=== PATIENT | female | born 1980 | race Caucasian/White ===

== ENCOUNTER 2016-06-06 06:34 | Day surgery (SDC) | payer OTHER ==
[2016-06-05 09:43] VITALS: BMI 28.3
[~2016-06-06 06:34] MED LIST: LACTATED RINGERS 1,000 ML IV SCH
[2016-06-06] MEDS ORDERED: LIDOCAINE 1% 20 ML VIAL (10MG/ML) FOR IV START INTRADERMA ONE (07:39)
[2016-06-06 07:46] VITALS: RESP 16; TEMP 98.4
[2016-06-06] MEDS ORDERED: ONDANSETRON 4 MG/2 ML VIAL IVP STA (07:56)
[2016-06-06] MEDS ORDERED: fentaNYL (PF) 50 MCG/ML 2 ML AMP ONE (07:59)
[2016-06-06] MEDS ORDERED: IOHEXOL 180 MG/ML 1 ML ML ONE (07:59)
[2016-06-06] MEDS ORDERED: BUPIVACAINE (PF) 0.5% 30 ML VIAL ONE (07:59)
[2016-06-06] MEDS ORDERED: TRIAMCINOLONE ACETONIDE 40 MG/ML 1 ML VIAL ONE (07:59)
[2016-06-06] MEDS ORDERED: MIDAZOLAM 2 MG/2 ML VIAL ONE (07:59)
[2016-06-06 08:01] LABS: Glucose,Whole Blood 76 mg/dL (75-99)
[2016-06-06] MEDS ORDERED: IV FLUID CONTINUATION 1,000 ML IV ONE (08:27)
--- NOTE | 2016-06-06 08:58 | FL ---
EXAMINATION TYPE: FL guided pain mgmt statistic DATE OF EXAM: 06/06/2016 8:16 AM HISTORY: Flouroscopy time 5 seconds of fluoroscopy provided. IMPRESSION: 1. Fluoroscopy time.
[2016-06-06 09:00] VITALS: BP 100/59; PULSE 76
--- NOTE | 2016-06-06 09:24 | P.PCN ---
Date of Procedure: 06/06/16 Anesthesia: [facility] – [place] Surgeon: Dragan Cline Pathology: none sent Condition: stable Disposition: PACU Description of Procedure: PREOPERATIVE DIAGNOSIS: 1-Leftsacroiliitis. 2 Lumbar DDD POSTOPERATIVE DIAGNOSIS:. 1-Left sacroiliitis. 2 Lumbar DDD PROCEDURES: Left Sacroiliac joint steroid injection with fluoroscopy ANESTHESIA: Local with 1% lidocaine; Conscious sedation with Versed/fentanyl. EBL: Minimal. PROCEDURE INDICATIONS: This patient with a history of low back pain secondary to sacroiliitis and lumbar DDD unresponsive to conservative management. PROCEDURE DESCRIPTION: The patient was seen and identified in the preoperative area. Risks, benefits, complications, and alternatives were discussed with the patient (including but not limited to incomplete pain relief, bleeding, infection, nerve damage, and allergies to medications), the patient agreed to proceed with the procedure and signed the consent after all questions were answered. Patient was taken to the OR and time out was completed to verify proper patient , position, laterality of pain, and allergies. Pt was placed in the prone position and a pillow was placed under the abdomen to reduce lumbar lordosis. The lumbosacral area was prepped and draped in the usual sterile fashion. Vital signs were closely monitored during the procedure. The fluoroscopic camera was placed in contralateral oblique view and left sacroiliiac joint lower pole was identified. After local infiltration with 1% lidocaine 2 ml, Subsequently, a 22-gauge 3.5 inch spinal needle was introduced into the posteroinferior aspect of the left sacroiliac joint under direct fluoroscopic visualization. Subsequently, 3 ml of a solution of a total of 3 ml solution containing total 2 mL of 0.5% preservative-free bupivicaine mixed with 40 mg of Kenalog was injected after negative aspiration for CSF, blood, and air and negative for paresthesia. Needle was withdrawn intact. Skin was cleansed, and bandages were applied. COMPLICATIONS: None. COMMENTS: DISPOSITION / PLANS: The patient was placed in a supine position and transferred to the recovery area in a stable condition for observation and was discharged from the recovery room after meeting discharge criteria. Home discharge instructions given to the patient by the staff. The patient was reexamined prior to discharge. The patient will schedule a follow up procedure in 2-4 weeks, L SIJ injection + cervical TPI.
== END 2016-06-06 09:07 | disposition home or self-care (01) ==
LOC: ORPAIN 06:34
PROVIDERS: ATTEND Anesthesiology
DX: M46.1 Sacroiliitis, not elsewhere classified (principal); M51.36 Other intervertebral disc degeneration, lumbar region; G89.29 Other chronic pain; K21.9 Gastro-esophageal reflux disease without esophagitis; Z79.1 Long term (current) use of non-steroidal anti-inflammatories (NSAID); Z79.891 Long term (current) use of opiate analgesic; Z79.899 Other long term (current) drug therapy; Z88.5 Allergy status to narcotic agent
CPT/HCPCS: 81025; J2250; J3301; Q9965; J2405; J3010; G0260; 27096

== ENCOUNTER 2016-06-08 08:38 | Observation (INO) | payer OTHER ==
[2016-06-08 09:07] LABS: Glucose,Whole Blood 58 mg/dL (75-99)
[2016-06-08] MEDS ORDERED: SODIUM CHLORIDE 0.9% 1,000 ML IV STA ×2 (09:07)
[2016-06-08] MEDS ORDERED: DEXTROSE 50%-WATER 50 ML SYRINGE IVP STA ×3 (09:08→12:13)
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
--- NOTE | 2016-06-08 09:34 | XR ---
EXAMINATION TYPE: XR chest 2V DATE OF EXAM: 06/08/2016 9:24 AM COMPARISON: 04/26/2016 HISTORY: 35-year-old female with chest pain TECHNIQUE: PA and lateral views FINDINGS: The cardiomediastinal silhouette, aorta, and pulmonary vasculature are within normal limits. Lungs an d pleural spaces are clear. IMPRESSION: No acute cardiopulmonary process.
[2016-06-08 09:42] LABS: Glucose,Whole Blood 107 mg/dL (75-99)
[2016-06-08] MEDS ORDERED: MORPHINE SULFATE 4 MG/ML SYRINGE IV STA (09:54)
[2016-06-08 10:03] LABS: Glucose,Whole Blood 36 mg/dL (75-99)
[2016-06-08 10:07] LABS: Basophils % (A) 0 %; CH 34.3; CHCM 35.8; Eosinophils % (A) 0 %; HCT 37.9 % (34.0-46.0); HDW 2.85; HGB 13.2 gm/dL (11.4-16.0); Luc # (Auto) 0.06; Luc % (Auto) 1; Lymphocytes # (A) 0.7 k/uL (1.0-4.8); Lymphocytes % (A) 11 %; MCH 33.5 pg (25.0-35.0); MCHC 34.8 g/dL (31.0-37.0); Mean Platelet Volume 6.9; Monocytes # (A) 0.2 k/uL (0-1.0); Monocytes % (A) 3 %; Neutrophils # (A) 5.1 k/uL (1.3-7.7); Neutrophils % (A) 84 %; RBC 3.95 m/uL (3.80-5.40); RDW 11.7 % (11.5-15.5); WBC 6.1 k/uL (3.8-10.6); WBC (Perox) 6.61
[2016-06-08 10:08] LABS: ALT 27 U/L (9-52); AST 15 U/L (14-36); Alkaline Phosphatase 40 U/L (38-126); Amylase 91 U/L (30-110); Anion Gap 8 mmol/L; Blood Urea Nitrogen 12 mg/dL (7-17); Calcium 8.7 mg/dL (8.4-10.2); Carbon Dioxide 26 mmol/L (22-30); Chloride 111 mmol/L (98-107); Glucose 78 mg/dL (74-99); MCV 96.1 fL (80.0-100.0); Magnesium 1.7 mg/dL (1.6-2.3); Non-African American GFR(MDRD) >60 (>60 ml/min/1.73 sqM); Potassium 3.9 mmol/L (3.5-5.1); Sodium 145 mmol/L (137-145); Total Bilirubin 0.4 mg/dL (0.2-1.3)
[2016-06-08 10:30] LABS: Creatine Kinase 62 U/L (30-135)
[2016-06-08 10:32] LABS: INR 1.1 (<1.1); Partial Thromboplastin Time 22.1 sec (22.0-30.0); Prothrombin Time 10.8 sec (9.0-12.0)
[2016-06-08 10:34] LABS: Glucose,Whole Blood 140 mg/dL (75-99)
[2016-06-08 10:42] LABS: Creatine Kinase MB 0.5 ng/mL (0.0-2.4); Troponin I <0.012 ng/mL (0.000-0.034)
[2016-06-08 11:12] LABS: Glucose,Whole Blood 69 mg/dL (75-99)
[2016-06-08 11:32] LABS: Glucose,Whole Blood 62 mg/dL (75-99)
[2016-06-08 12:09] LABS: Glucose,Whole Blood 58 mg/dL (75-99)
[2016-06-08] MEDS ORDERED: ONDANSETRON 4 MG/2 ML VIAL IVP STA (12:14)
[2016-06-08] MEDS ORDERED: NALOXONE 0.4 MG/ML 1 ML VIAL IV PRN (13:04)
[2016-06-08] MEDS ORDERED: MORPHINE SULFATE 4 MG/ML SYRINGE IV PRN (13:04)
[2016-06-08 13:29] LABS: Glucose,Whole Blood 63 mg/dL (75-99)
[2016-06-08] MEDS: DEXTROSE 10% IN WATER 1,000 ML IV ONE ×2 (13:30→23:37)
[2016-06-08 14:51] LABS: Glucose,Whole Blood 61 mg/dL (75-99)
[2016-06-08 15:08] LABS: Glucose,Whole Blood 62 mg/dL (75-99)
[2016-06-08 15:24] LABS: Glucose,Whole Blood 68 mg/dL (75-99)
[2016-06-08 16:06] LABS: Glucose,Whole Blood 75 mg/dL (75-99)
[2016-06-08] MEDS: DEXTROSE 4 GM CHEWABLE PO SCH ×5 (16:07→23:23)
[2016-06-08 16:31] LABS: Glucose,Whole Blood 78 mg/dL (75-99)
[2016-06-08 17:01] LABS: Glucose,Whole Blood 74 mg/dL (75-99)
[2016-06-08 18:10] LABS: Glucose,Whole Blood 64 mg/dL (75-99)
[2016-06-08 18:27] LABS: Glucose,Whole Blood 77 mg/dL (75-99)
[2016-06-08 19:06] LABS: Glucose,Whole Blood 41 mg/dL (75-99)
[2016-06-08 19:21] LABS: Glucose,Whole Blood 75 mg/dL (75-99)
[2016-06-08 20:08] LABS: Glucose,Whole Blood 80 mg/dL (75-99)
[2016-06-08] MEDS: HYDROcodone/APAP 5-325MG 1 EACH TAB PO PRN (20:49)
[2016-06-08 21:18] LABS: Glucose,Whole Blood 73 mg/dL (75-99)
[2016-06-08 22:10] LABS: Glucose,Whole Blood 59 mg/dL (75-99)
[2016-06-08 22:36] LABS: Glucose,Whole Blood 66 mg/dL (75-99)
[2016-06-08] MEDS ORDERED: LEVALBUTEROL 0.63 MG INHALATION PRN (22:38)
[2016-06-08 23:12] LABS: Glucose,Whole Blood 77 mg/dL (75-99)
[2016-06-08] MEDS: ONDANSETRON 4 MG/2 ML VIAL IVP PRN (23:20)
[2016-06-08] MEDS: PREGABALIN 50 MG CAP PO SCH (23:21)
[2016-06-08] MEDS: ACETAMINOPHEN TAB 325 MG TAB PO PRN (23:21)
[2016-06-08] MEDS: FAMOTIDINE 20 MG TAB PO SCH (23:23)
[2016-06-08] MEDS: traZODone HCL 50 MG TAB PO SCH (23:37)
[2016-06-09] MEDS: DEXTROSE 4 GM CHEWABLE PO SCH ×23 (00:12→23:05)
[2016-06-09 00:13] LABS: Glucose,Whole Blood 57 mg/dL (75-99)
[2016-06-09 00:36] LABS: Glucose,Whole Blood 48 mg/dL (75-99)
[2016-06-09 00:36] LABS: Glucose,Whole Blood 48 mg/dL (75-99)
[2016-06-09 00:39] LABS: Glucose,Whole Blood 59 mg/dL (75-99)
[2016-06-09 01:03] LABS: Glucose,Whole Blood 75 mg/dL (75-99)
[2016-06-09 02:05] LABS: Glucose,Whole Blood 72 mg/dL (75-99)
[2016-06-09 03:10] LABS: Glucose,Whole Blood 80 mg/dL (75-99)
[2016-06-09 04:04] LABS: Glucose,Whole Blood 54 mg/dL (75-99)
[2016-06-09 04:29] LABS: Glucose,Whole Blood 90 mg/dL (75-99)
[2016-06-09 05:03] LABS: Glucose,Whole Blood 60 mg/dL (75-99)
[2016-06-09 05:25] LABS: Glucose,Whole Blood 85 mg/dL (75-99)
[2016-06-09 06:02] LABS: Glucose,Whole Blood 76 mg/dL (75-99)
[2016-06-09 07:00] LABS: Glucose,Whole Blood 81 mg/dL (75-99)
[2016-06-09] MEDS: LEVOTHYROXINE 100 MCG TAB PO SCH (07:00)
[2016-06-09 07:07] LABS: Basophils % (A) 1 %; CH 34.1; CHCM 35.1; Eosinophils # (A) 0.1 k/uL (0-0.7); Eosinophils % (A) 2 %; HCT 34.6 % (34.0-46.0); HDW 2.84; Luc # (Auto) 0.09; Luc % (Auto) 2; Lymphocytes # (A) 1.2 k/uL (1.0-4.8); Lymphocytes % (A) 28 %; MCHC 34.8 g/dL (31.0-37.0); MCV 97.7 fL (80.0-100.0); Mean Platelet Volume 6.7; Monocytes # (A) 0.2 k/uL (0-1.0); Monocytes % (A) 4 %; Neutrophils # (A) 2.7 k/uL (1.3-7.7); Neutrophils % (A) 63 %; RBC 3.55 m/uL (3.80-5.40); RDW 11.8 % (11.5-15.5); WBC 4.3 k/uL (3.8-10.6); WBC (Perox) 4.66
[2016-06-09 07:29] LABS: ALT 23 U/L (9-52); AST 12 U/L (14-36); Alkaline Phosphatase 37 U/L (38-126); Anion Gap 7 mmol/L; Blood Urea Nitrogen 9 mg/dL (7-17); Calcium 8.6 mg/dL (8.4-10.2); Carbon Dioxide 25 mmol/L (22-30); Chloride 110 mmol/L (98-107); Glucose 103 mg/dL (74-99); Non-African American GFR(MDRD) >60 (>60 ml/min/1.73 sqM); Potassium 4.4 mmol/L (3.5-5.1); Sodium 142 mmol/L (137-145); Total Bilirubin 0.3 mg/dL (0.2-1.3); Total Protein 5.2 g/dL (6.3-8.2)
[2016-06-09] MEDS: HYDROcodone/APAP 5-325MG 1 EACH TAB PO PRN ×2 (07:58→13:01)
[2016-06-09 07:59] LABS: Glucose,Whole Blood 142 mg/dL (75-99)
[2016-06-09] MEDS: PREGABALIN 50 MG CAP PO SCH ×3 (07:59→23:04)
[2016-06-09] MEDS: DEXTROSE 10% IN WATER 1,000 ML in EMPTY BAG 1 BAG IV SCH ×4 (08:57→23:06)
[2016-06-09] MEDS: DESVENLAFAXINE SUCCINATE 50 MG TAB.ER.24H PO SCH (08:58)
[2016-06-09] MEDS: MONTELUKAST 10 MG TAB PO SCH (08:58)
[2016-06-09] MEDS: ARIPiprazole 5 MG TAB PO SCH (08:58)
[2016-06-09] MEDS: FAMOTIDINE 20 MG TAB PO SCH ×2 (08:58→21:25)
[2016-06-09 09:00] LABS: Glucose,Whole Blood 105 mg/dL (75-99)
[2016-06-09] MEDS: ACETAMINOPHEN TAB 325 MG TAB PO PRN (09:59)
[2016-06-09 10:16] LABS: Glucose,Whole Blood 93 mg/dL (75-99)
[2016-06-09 10:16] LABS: Glucose,Whole Blood 57 mg/dL (75-99)
[2016-06-09] MEDS: BECLOMETHASONE DIP 80 MCG/PUFF INHALER INHALATION SCH ×2 (10:45→19:12)
[2016-06-09] MEDS: ONDANSETRON 4 MG/2 ML VIAL IVP PRN (10:50)
[2016-06-09 11:23] LABS: Glucose,Whole Blood 51 mg/dL (75-99)
[2016-06-09 11:23] LABS: Glucose,Whole Blood 49 mg/dL (75-99)
[2016-06-09 11:23] LABS: Glucose,Whole Blood 73 mg/dL (75-99)
[2016-06-09 12:11] LABS: Glucose,Whole Blood 61 mg/dL (75-99)
[2016-06-09 12:11] LABS: Glucose,Whole Blood 72 mg/dL (75-99)
[2016-06-09 12:57] LABS: Glucose,Whole Blood 82 mg/dL (75-99)
[2016-06-09 14:00] LABS: Glucose,Whole Blood 71 mg/dL (75-99)
[2016-06-09 14:58] LABS: Glucose,Whole Blood 104 mg/dL (75-99)
--- NOTE | 2016-06-09 14:58 | HP ---
DATE OF ADMISSION: 06/08/2016 PRESENTING COMPLAINT: Hypoglycemia. HISTORY OF PRESENTING COMPLAINT: This is a pleasant 35-year-old patient well known to me from prior admissions. Patient's chronic stable medical conditions include hypothyroid, depression, GERD. Patient has also had bulimia. The patient now presents with hypoglycemia. The patient does not eat much, ( ) since admission. I put her on IV D10, sugar tablets. She keeps dropping her sugars, admitted for the same. REVIEW OF SYSTEMS: CONSTITUTIONAL: Weak and tired. HEENT: None. RESPIRATORY: None. CARDIOVASCULAR: None. GASTROINTESTINAL: Heartburn. GENITOURINARY: None. MUSCULOSKELETAL: Chronic low back pain. DERMATOLOGICAL: None. HEMATOLOGIC: None. PSYCHIATRY: Depression. NEUROLOGICAL: None. Past history of asthma, hypothyroid, depression, herniated disc in lower back, peptic ulcer disease, bulimia. PAST SURGICAL HISTORY: Bariatric surgery, orthopedic surgery, multiple pain procedures, lap cholecystectomy, tonsillectomy. SOCIAL HISTORY: Patient lost her son to brain cancer. Lost her mother and father liver cancer. Has 2 daughters, not employed. No smoking. No alcohol. FAMILY HISTORY: As above. Allergies to ALBUTEROL, GRASS and POLLEN. HOME MEDICATIONS: 1. Desyrel 50 to 100 mg p.o. q.h.s. 2. Lyrica 50 mg p.o. q.8. 3. Zofran 4 mg q.8 p.r.n. 4. Naproxen 500 mg p.o. q.12 p.r.n. 5. Singulair 10 mg p.o. daily. 6. Depo-Provera 150 mg q.90. 7. Synthroid 100 mcg p.o. in the morning. 8. Xopenex 0.63 inhalation q.i.d. p.r.n. 9. Xopenex 2 puffs q.6 p.r.n. 10. [place] 7.5 one tablet q.6 p.r.n. 11. Pepcid 20 mg p.o. b.i.d. 12. Pristiq 100 mg p.o. daily. 13. Qvar 80 one puff b.i.d. 14. Aspirin 325 p.o. daily p.r.n. 15. Abilify 5 mg p.o. daily. On examination, temperature 97.2, pulse 93, respirations 16, blood pressure 91/43, pulse ox 99% on room air. GENERAL APPEARANCE: Average built, lying in bed, tired appearing. EYES: Pupils equal. Conjunctivae normal. HEENT: External appearance of nose and ears normal. Oral cavity normal. NECK: JVD not raised. Mass not palpable. RESPIRATORY: Effort normal. Lungs are clear. CARDIOVASCULAR: First and second sounds normal. No edema. ABDOMEN: Soft, nontender. Liver and spleen not palpable. LYMPHATIC: No lymph node palpable in the neck or axillae. PSYCHIATRY: Alert and oriented x3. Mood and affect slightly low appearing. NEUROLOGICAL: Pupils equal. Cranial nerves grossly intact. Power and sensation grossly intact. INVESTIGATIONS: White count 6.1, hemoglobin 13.2. Potassium 3.9. Patient's sugars had gone as low as ( ). ASSESSMENT: 1. Persistent hypoglycemia, symptomatic in a patient who is bulimic, has got probably limited fat and gallbladder reserves. Even though patient's body mass index is not bad, a lot of that is probably fluid, probably from patient taking steroids. 2. Moderate persistent asthma, controlled. 3. Chronic lumbar herniated disc. 4. Hypothyroidism, chronic. 5. Depression, not otherwise specified. 6. Gastroesophageal reflux disease. 7. Chronic bulimia. PLAN: Patient is put on D10, 100 mL and hour. Did not respond. Hence will increase to 200 mL an hour. Patient also put on glucose tablets round the clock. Patient had ordered a salad for lunch. I told her to take chicken strips or even have a burger, but she is rather resistant to that. Will try to also give her chocolates and milkshakes. Care was discussed in detail with the patient and nurse at the bedside.
[2016-06-09 16:01] LABS: Glucose,Whole Blood 80 mg/dL (75-99)
[2016-06-09 17:03] LABS: Glucose,Whole Blood 88 mg/dL (75-99)
[2016-06-09 18:02] LABS: Glucose,Whole Blood 102 mg/dL (75-99)
[2016-06-09 18:59] LABS: Glucose,Whole Blood 66 mg/dL (75-99)
[2016-06-09 19:22] LABS: Glucose,Whole Blood 126 mg/dL (75-99)
[2016-06-09 20:05] LABS: Glucose,Whole Blood 144 mg/dL (75-99)
[2016-06-09] MEDS ORDERED: traZODone HCL 50 MG TAB PO SCH (21:00)
[2016-06-09 21:25] LABS: Glucose,Whole Blood 109 mg/dL (75-99)
[2016-06-09] MEDS: traZODone HCL 50 MG TAB PO SCH (21:26)
[2016-06-09 23:06] LABS: Glucose,Whole Blood 112 mg/dL (75-99)
[2016-06-10] MEDS: DEXTROSE 4 GM CHEWABLE PO SCH ×8 (02:46→22:46)
[2016-06-10] MEDS: DEXTROSE 10% IN WATER 1,000 ML in EMPTY BAG 1 BAG IV SCH ×4 (02:46→16:53)
[2016-06-10 02:48] LABS: Glucose,Whole Blood 125 mg/dL (75-99)
[2016-06-10] MEDS: LEVOTHYROXINE 100 MCG TAB PO SCH (06:00)
[2016-06-10] MEDS: HYDROcodone/APAP 5-325MG 1 EACH TAB PO PRN ×3 (06:00→20:11)
[2016-06-10 06:11] LABS: Glucose,Whole Blood 96 mg/dL (75-99)
[2016-06-10 06:42] LABS: Glucose,Whole Blood 146 mg/dL (75-99)
[2016-06-10] MEDS: FAMOTIDINE 20 MG TAB PO SCH ×2 (07:48→20:20)
[2016-06-10] MEDS: ARIPiprazole 5 MG TAB PO SCH (07:48)
[2016-06-10] MEDS: DESVENLAFAXINE SUCCINATE 50 MG TAB.ER.24H PO SCH (07:48)
[2016-06-10] MEDS: PREGABALIN 50 MG CAP PO SCH ×2 (07:48→16:59)
[2016-06-10] MEDS: MONTELUKAST 10 MG TAB PO SCH (07:48)
[2016-06-10 08:01] LABS: Glucose,Whole Blood 116 mg/dL (75-99)
[2016-06-10] MEDS: BECLOMETHASONE DIP 80 MCG/PUFF INHALER INHALATION SCH ×2 (08:16→20:08)
[2016-06-10 09:13] LABS: Glucose,Whole Blood 106 mg/dL (75-99)
[2016-06-10 10:06] LABS: Glucose,Whole Blood 110 mg/dL (75-99)
[2016-06-10 11:06] LABS: Glucose,Whole Blood 99 mg/dL (75-99)
[2016-06-10 13:18] LABS: Glucose,Whole Blood 129 mg/dL (75-99)
[2016-06-10 15:11] LABS: Glucose,Whole Blood 106 mg/dL (75-99)
[2016-06-10 17:07] LABS: Glucose,Whole Blood 113 mg/dL (75-99)
[2016-06-10 20:19] LABS: Glucose,Whole Blood 106 mg/dL (75-99)
[2016-06-10] MEDS: traZODone HCL 50 MG TAB PO SCH (20:20)
--- NOTE | 2016-06-10 21:44 | PN ---
DATE OF SERVICE: 06/10/2016 PRESENTING COMPLAINT: Hypoglycemia. INTERVAL HISTORY: This is a patient with bulimia, presented with persistent hypoglycemia, still remains on a D10 drip. Sugars are starting to come up, but stool did drop to 90 this morning. Per nursing, patient is actually eating. Review of systems done for constitutional, cardiovascular, GI, pulmonary; relevant findings as above. Current medications are reviewed and include drip of D10. On examination, temperature 98.5, pulse 110. Respiratory rate 16, blood pressure 130/69, pulse ox 97% on room air. GENERAL APPEARANCE: Sitting up, comfortable. EYES: Pupils equal. Not raised. RESPIRATORY: Effort normal. Lungs are clear. CARDIOVASCULAR: First and seconds normal. No edema. ABDOMEN: Soft, nontender. Liver and spleen not palpable. PSYCHIATRY: Alert and oriented x3. Mood and affect normal. INVESTIGATIONS: Accu-Cheks are noted, 99, 129. ASSESSMENT: 1. Persistent hypoglycemia in a patient who is bulimic. 2. Moderate persistent asthma, controlled. 3. Chronic lumbar herniated disc. 4. Hypothyroidism, chronic. 5. Depression not otherwise specified. 6. Gastroesophageal reflux disease. 7. Chronic bulimia. PLAN: We will stop patient's sugar tablets per patient's request. Keep the patient on high calorie diet. Patient encouraged to eat including milk shakes. Keep the patient on D10. Follow.
[2016-06-10 22:22] LABS: Glucose,Whole Blood 117 mg/dL (75-99)
[2016-06-11] MEDS: PREGABALIN 50 MG CAP PO SCH ×2 (00:02→07:50)
[2016-06-11 00:13] LABS: Glucose,Whole Blood 115 mg/dL (75-99)
[2016-06-11 02:32] VITALS: RESP 16
[2016-06-11 02:44] LABS: Glucose,Whole Blood 91 mg/dL (75-99)
[2016-06-11 04:07] LABS: Glucose,Whole Blood 103 mg/dL (75-99)
[2016-06-11] MEDS: LEVOTHYROXINE 100 MCG TAB PO SCH (06:00)
[2016-06-11 06:10] LABS: Glucose,Whole Blood 89 mg/dL (75-99)
[2016-06-11 07:25] VITALS: BP 109/63; PULSE 98; TEMP 98
[2016-06-11] MEDS: DESVENLAFAXINE SUCCINATE 50 MG TAB.ER.24H PO SCH (07:50)
[2016-06-11] MEDS: MONTELUKAST 10 MG TAB PO SCH (07:50)
[2016-06-11] MEDS: ARIPiprazole 5 MG TAB PO SCH (07:50)
[2016-06-11] MEDS: HYDROcodone/APAP 5-325MG 1 EACH TAB PO PRN ×2 (07:50→14:32)
[2016-06-11] MEDS: BECLOMETHASONE DIP 80 MCG/PUFF INHALER INHALATION SCH (08:03)
[2016-06-11 08:09] LABS: Glucose,Whole Blood 105 mg/dL (75-99)
[2016-06-11 10:15] LABS: Glucose,Whole Blood 120 mg/dL (75-99)
[2016-06-11] MEDS: FAMOTIDINE 20 MG TAB PO SCH (11:24)
[2016-06-11 11:50] LABS: Glucose,Whole Blood 101 mg/dL (75-99)
[2016-06-11 13:44] LABS: Glucose,Whole Blood 110 mg/dL (75-99)
[2016-06-11 15:18] LABS: Glucose,Whole Blood 101 mg/dL (75-99)
--- NOTE | 2016-06-12 08:58 | DS ---
DATE OF ADMISSION: 06/08/2016 DATE OF DISCHARGE: 06/11/2016 FINAL DIAGNOSES: 1. Persistent hypoglycemia in a patient who is bulimic. 2. Moderate persistent asthma, controlled. 3. Chronic lumbar herniated disc. 4. Hypothyroidism, chronic. 5. Depression, not otherwise specified. 6. Gastroesophageal reflux disease, chronic. 7. Chronic bulimia. HOSPITAL COURSE: This is a patient with bulimia, just got off steroids, went into hypoglycemic. Patient had to get sugar tablets and Dextro strip. Sugar was doing well by the type of discharge. It was reinforced to the patient that she needs to build up her muscle mass and ( ) stores by eating. On exam, lungs are clear. CARDIOVASCULAR: First and second sounds normal. DISCHARGE MEDICATIONS: 1. Xopenex q.i.d. p.r.n. 2. Synthroid 100 mcg p.o. daily. 3. Singulair 10 mg p.o. daily. 4. Abilify 5 mg daily. 5. Pristiq 100 p.o. daily. 6. Depo-Provera 150 mg IM every 90 days. 7. Desyrel 50 to 100 mg p.o. q.h.s. 8. Pepcid 20 mg p.o. b.i.d. 9. [place] 7.5 one tablet q.6 p.r.n. 10. Lyrica 50 mg p.o. q.8. 11. Qvar 80 mcg one puff b.i.d. 12. Zofran 4 mg p.o. q.8 p.r.n. 13. Aspirin 325 p.o. daily. Follow up with Dr. Gonzalez in 3 days On examination, lungs are clear. CARDIOVASCULAR: First and second seconds normal. PSYCH: Alert and oriented x3. Mood and affect normal.
== END 2016-06-11 17:40 | disposition home or self-care (01) ==
LOC: EC 08:38 → OBSVTOIN 13:09 → 3OBS 13:09 → INTOOBSV 13:09 → 6PED 13:54 → 3SUR 06-09 22:08
PROVIDERS: ADMIT Hospitalist; ATTEND Hospitalist
DX: E16.2 Hypoglycemia, unspecified (principal); F50.2 Bulimia nervosa; J45.40 Moderate persistent asthma, uncomplicated; M51.26 Other intervertebral disc displacement, lumbar region; E03.9 Hypothyroidism, unspecified; F32.9 Major depressive disorder, single episode, unspecified; K21.9 Gastro-esophageal reflux disease without esophagitis; G89.29 Other chronic pain; I25.10 Atherosclerotic heart disease of native coronary artery without angina pectoris; G40.909 Epilepsy, unspecified, not intractable, without status epilepticus; F41.9 Anxiety disorder, unspecified; Z98.84 Bariatric surgery status; Z90.49 Acquired absence of other specified parts of digestive tract; Z87.11 Personal history of peptic ulcer disease; Z87.440 Personal history of urinary (tract) infections; Z86.14 Personal history of Methicillin resistant Staphylococcus aureus infection; Z79.82 Long term (current) use of aspirin; Z79.899 Other long term (current) drug therapy
CPT/HCPCS: 96361 ×5; 96374; 96375 ×3; 99285 ×2; 36415; 94640 ×4; 94760; 80053 ×2; 82150; 82550; 82553; 83690; 83735; 84484; 85025 ×2; 85610; 85730; 71020; 96365; 96376 ×3; G0378 ×5; J2270; J2405 ×2; 93005

== ENCOUNTER 2016-06-13 17:35 | Inpatient (IN) | payer OTHER ==
[2016-06-13] MEDS ORDERED: HYDROmorphone 1 MG/ML 1 ML SYRINGE IVP STA (20:32)
[2016-06-13] MEDS ORDERED: SODIUM CHLORIDE 0.9% 1,000 ML IV STA ×2 (20:32)
[2016-06-13] MEDS ORDERED: PANTOPRAZOLE 40 MG/10 ML VIAL IVP STA (20:32)
[2016-06-13 20:40] LABS: Basophils # (A) 0.1 k/uL (0-0.2); Basophils % (A) 1 %; CH 34.3; CHCM 36.3; Eosinophils # (A) 0.1 k/uL (0-0.7); Eosinophils % (A) 1 %; HCT 44.4 % (34.0-46.0); HDW 2.82; HGB 14.9 gm/dL (11.4-16.0); Luc # (Auto) 0.06; Luc % (Auto) 1; Lymphocytes # (A) 1.5 k/uL (1.0-4.8); Lymphocytes % (A) 15 %; MCH 31.9 pg (25.0-35.0); MCHC 33.5 g/dL (31.0-37.0); MCV 95.2 fL (80.0-100.0); Mean Platelet Volume 7.4; Monocytes # (A) 0.6 k/uL (0-1.0); Monocytes % (A) 6 %; Neutrophils # (A) 7.7 k/uL (1.3-7.7); Neutrophils % (A) 78 %; RBC 4.67 m/uL (3.80-5.40); RDW 12.3 % (11.5-15.5); WBC 9.9 k/uL (3.8-10.6); WBC (Perox) 9.66
[2016-06-13] MEDS: ONDANSETRON 4 MG/2 ML VIAL IVP STA ×2 (20:46→23:01)
[2016-06-13 20:47] LABS: Appearance,Urine Clear (Clear); Bilirubin,Urine Negative (Negative); Glucose,Urine (UA) Negative (Negative); Ketones,Urine Negative (Negative); Leukocyte Esterase,Urine Negative (Negative); Mucus,Urine Occasional /hpf; Nitrite,Urine Negative (Negative); Particle Count 5839; Protein,Urine Trace (Negative); RBC,Urine 130 /hpf (0-5); Specific Gravity,Urine 1.025 (1.001-1.035); Squamous Epithelial Cell,Urine 4 /hpf (0-4); UA Billing (MACRO vs. MICRO) MICRO; WBC,Urine 3 /hpf (0-5)
[2016-06-13 20:54] LABS: ALT 57 U/L (9-52); AST 37 U/L (14-36); Alkaline Phosphatase 49 U/L (38-126); Amylase 106 U/L (30-110); Anion Gap 13 mmol/L; Blood Urea Nitrogen 26 mg/dL (7-17); Calcium 10.1 mg/dL (8.4-10.2); Carbon Dioxide 28 mmol/L (22-30); Chloride 103 mmol/L (98-107); Non-African American GFR(MDRD) 55 (>60 ml/min/1.73 sqM); Potassium 3.9 mmol/L (3.5-5.1); Sodium 144 mmol/L (137-145); Total Bilirubin 0.5 mg/dL (0.2-1.3); Total Protein 7.6 g/dL (6.3-8.2)
[2016-06-13 21:06] LABS: Glucose 37 mg/dL (74-99)
[2016-06-13] MEDS ORDERED: DEXTROSE 5%-0.45% NACL 1,000 ML IV ONE (21:29)
[2016-06-13] MEDS ORDERED: DEXTROSE 50%-WATER 50 ML SYRINGE IVP STA (21:29)
--- NOTE | 2016-06-13 21:29 | XR ---
EXAMINATION TYPE: XR abdomen 2V DATE OF EXAM: 06/13/2016 9:19 PM COMPARISON: 08/02/2009 HISTORY: Pain TECHNIQUE: Single supine KUB image of the abdomen is obtained FINDINGS: Gastric banding device is in place. Small bowel demonstrates no evidence for dilatation or air fluid levels. Gas and fecal material is seen in non-distended colon. No convincing evidence for pneumoperitoneum. No unusual calcifications. The lung bases are clear. The osseous structures are intact. IMPRESSION: 1. Overall nonobstructive bowel gas pattern.
[2016-06-13 22:00] LABS: Glucose,Whole Blood 143 mg/dL (75-99)
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
[2016-06-13] MEDS ORDERED: NALOXONE 0.4 MG/ML 1 ML VIAL IV PRN (22:40)
[2016-06-13] MEDS ORDERED: HYDROmorphone 1 MG/ML 1 ML SYRINGE IV PRN (22:40)
[2016-06-13] MEDS ORDERED: LEVALBUTEROL NEB 1.25 MG/3 ML AMP INHALATION PRN ×2 (22:45→23:19)
[2016-06-13] MEDS ORDERED: LEVALBUTEROL 0.63 MG INHALATION PRN (22:45)
[2016-06-13] MEDS ORDERED: NAPROXEN 250 MG TAB PO PRN (22:45)
[2016-06-13 22:52] LABS: Glucose,Whole Blood 66 mg/dL (75-99)
[2016-06-13] MEDS ORDERED: DEXTROSE 4 GM CHEWABLE PO SCH (23:00)
[2016-06-13] MEDS: DEXTROSE 10% IN WATER 1,000 ML IV ONE (23:12)
[2016-06-13] MEDS: DEXTROSE 4 GM CHEWABLE PO SCH (23:55)
[2016-06-14 00:08] LABS: Glucose,Whole Blood 70 mg/dL (75-99)
[2016-06-14] MEDS: DEXTROSE 4 GM CHEWABLE PO SCH ×24 (00:08→23:57)
[2016-06-14] MEDS: PREGABALIN 50 MG CAP PO SCH ×4 (00:08→23:03)
[2016-06-14] MEDS ORDERED: DEXTROSE 4 GM CHEWABLE PO ONE (00:50)
[2016-06-14 01:23] LABS: Glucose,Whole Blood 115 mg/dL (75-99)
[2016-06-14 02:37] LABS: Glucose,Whole Blood 96 mg/dL (75-99)
[2016-06-14 04:04] LABS: Glucose,Whole Blood 113 mg/dL (75-99)
[2016-06-14 06:35] LABS: Glucose,Whole Blood 105 mg/dL (75-99)
[2016-06-14 07:39] LABS: Glucose,Whole Blood 102 mg/dL (75-99)
[2016-06-14] MEDS: BECLOMETHASONE DIP 80 MCG/PUFF INHALER INHALATION SCH ×2 (07:41→19:15)
[2016-06-14] MEDS: ONDANSETRON 4 MG/2 ML VIAL IVP STA ×2 (07:48→13:28)
[2016-06-14 07:58] LABS: Anion Gap 10 mmol/L; Blood Urea Nitrogen 18 mg/dL (7-17); Carbon Dioxide 25 mmol/L (22-30); Chloride 106 mmol/L (98-107); Glucose 95 mg/dL (74-99); Non-African American GFR(MDRD) 55 (>60 ml/min/1.73 sqM); Sodium 141 mmol/L (137-145)
[2016-06-14] MEDS: LEVOTHYROXINE 100 MCG TAB PO SCH (08:50)
[2016-06-14] MEDS: DESVENLAFAXINE SUCCINATE 50 MG TAB.ER.24H PO SCH (08:51)
[2016-06-14] MEDS: MONTELUKAST 10 MG TAB PO SCH (08:51)
[2016-06-14] MEDS: ARIPiprazole 5 MG TAB PO SCH (08:51)
[2016-06-14] MEDS ORDERED: PANTOPRAZOLE 40 MG/10 ML VIAL IV SCH (09:00)
[2016-06-14 09:41] LABS: Basophils # (A) 0.1 k/uL (0-0.2); Basophils % (A) 1 %; CH 34.3; CHCM 35.1; Eosinophils # (A) 0.1 k/uL (0-0.7); Eosinophils % (A) 1 %; HCT 39.3 % (34.0-46.0); HDW 2.84; HGB 13.1 gm/dL (11.4-16.0); Luc # (Auto) 0.08; Luc % (Auto) 2; Lymphocytes # (A) 1.2 k/uL (1.0-4.8); Lymphocytes % (A) 24 %; MCH 32.7 pg (25.0-35.0); MCHC 33.3 g/dL (31.0-37.0); MCV 98.2 fL (80.0-100.0); Mean Platelet Volume 7.5; Monocytes # (A) 0.3 k/uL (0-1.0); Monocytes % (A) 6 %; Neutrophils # (A) 3.4 k/uL (1.3-7.7); Neutrophils % (A) 66 %; RDW 12.5 % (11.5-15.5); WBC 5.2 k/uL (3.8-10.6); WBC (Perox) 5.35
[2016-06-14 10:07] LABS: Glucose,Whole Blood 109 mg/dL (75-99)
[2016-06-14] MEDS ORDERED: ASPIRIN 325 MG TAB PO PRN (10:25)
[2016-06-14 10:45] VITALS: BMI 28.9
[2016-06-14 11:56] LABS: Glucose,Whole Blood 100 mg/dL (75-99)
[2016-06-14] MEDS: HYDROcodone/APAP 7.5-325MG 1 EACH TAB PO PRN ×2 (12:04→18:00)
[2016-06-14] MEDS: DEXTROSE 10% IN WATER 1,000 ML IV ONE (12:06)
--- NOTE | 2016-06-14 12:08 | HP ---
DATE OF ADMISSION: 06/13/2016 PRESENTING COMPLAINT: Nausea, vomiting, diarrhea, low sugars. HISTORY OF PRESENTING COMPLAINT: This is a 35-year-old patient who was just discharged from my service on 06/11/2016. The patient has rather extensive medical history and chronic stable medical conditions include hypothyroid, depression, GERD, also bulimia. Patient was discharged following hypoglycemia. She did well the night she went home and then she started on with nausea, vomiting, diarrhea, some abdominal discomfort, became dehydrated, sugars dropped again. She was hypoglycemic down to the 60s, readmitted. REVIEW OF SYSTEMS: CONSTITUTIONAL: Weak and tired. HEENT: None. RESPIRATORY: None. CARDIOVASCULAR: None. GASTROINTESTINAL: As above. GENITOURINARY: None. MUSCULOSKELETAL: Chronic low back pain. DERMATOLOGICAL: None. HEMATOLOGICAL: None. LYMPHATIC: None. PSYCHIATRY: Depression. NEUROLOGICAL: None. Past history of asthma, hypothyroid, depression, herniated disc in lower back, peptic ulcer disease, bulimia, hypothyroid. PAST SURGICAL HISTORY: Bariatric surgery, orthopedic surgery, multiple pain procedures, lap alcon, tonsillectomy. SOCIAL HISTORY: Patient lost her son to brain cancer. Lost her mother and father to liver cancer. Has 2 daughters, not employed. No smoking or alcohol. FAMILY HISTORY: As above. Allergies to ALBUTEROL, GRASS and POLLEN. Home medications per my discharge summary on 06/11/2016. 1. Xopenex q.i.d. p.r.n. 2. Synthroid 100 mcg. 3. Singulair 10 mg p.o. daily. 4. Abilify 5 mg p.o. daily. 5. Pristiq 100 mg p.o. daily. 6. Depo-Provera 150 mg IM every 90 days. 7. Desyrel 1500 mg p.o. q.h.s. 8. Pepcid 20 mg b.i.d. 9. [place] 7.5 tablet q.6 p.r.n. 10. Lyrica 50 mg p.o. q.8. 11. QVAR 18 mcg 1 puff b.i.d. 12. Zofran 4 mg p.o. q.8 p.r.n. 13. Aspirin 325 mg p.o. daily. On examination, vital signs on presentation: temperature 99.4, pulse 101, respirations 18, blood pressure 132/81, pulse ox 100% on room air. GENERAL APPEARANCE: Average build, lying in bed, tired-appearing. EYES: Pupils equal. Conjunctivae normal. NECK: JVD not raised. Mass not palpable. Respiratory effort normal. Lungs are clear. CARDIOVASCULAR: First and second sounds normal. No edema. ABDOMEN: Soft, minimal tenderness. Liver and spleen not palpable. LYMPHATIC: No lymph node palpable in neck or axillae. PSYCHIATRY: Alert and oriented x3. Mood and affect slightly anxious-appearing. NEUROLOGICAL: Pupils equal. Cranial nerves grossly intact. Power and sensation grossly intact. HEENT: External appearance of nose and ears normal. Oral cavity dry mucous membrane. INVESTIGATIONS: BUN 18, creatinine 1.12. ASSESSMENT: 1. Acute gastroenteritis likely viral, probably self-limiting, last diarrhea was last night. Clostridium difficile actually should be unlikely. 2. Hypoglycemia from decreased oral intake. 3. Moderate persistent asthma, controlled. 4. Chronic lumbar herniated disc. 5. Hypothyroidism, chronic. 6. Depression, not otherwise specified. 7. Gastroesophageal reflux disease, chronic. 8. Chronic bulimia. 9. Dehydration, currently with elevated BUN and creatinine, mild. PLAN: Patient will be hydrate, put on a liquid diet. Will also put her on D10 drip. Care was discussed with the patient and questions were answered.
[2016-06-14] MEDS: ENOXAPARIN 40 MG/0.4 ML SYRINGE SQ SCH (13:29)
[2016-06-14 14:38] LABS: Glucose,Whole Blood 105 mg/dL (75-99)
[2016-06-14 16:16] LABS: Glucose,Whole Blood 111 mg/dL (75-99)
[2016-06-14 18:11] LABS: Glucose,Whole Blood 114 mg/dL (75-99)
[2016-06-14] MEDS: DEXTROSE 10% IN WATER 1,000 ML IV SCH ×2 (19:31→19:34)
[2016-06-14] MEDS: traZODone HCL 50 MG TAB PO SCH (20:12)
[2016-06-14] MEDS: FAMOTIDINE 20 MG TAB PO SCH (20:12)
[2016-06-14 20:29] LABS: Glucose,Whole Blood 59 mg/dL (75-99)
[2016-06-14 20:33] LABS: Glucose,Whole Blood 63 mg/dL (75-99)
[2016-06-14 20:54] LABS: Glucose,Whole Blood 71 mg/dL (75-99)
[2016-06-14 22:05] LABS: Glucose,Whole Blood 90 mg/dL (75-99)
[2016-06-14 23:58] LABS: Glucose,Whole Blood 106 mg/dL (75-99)
[2016-06-15] MEDS: DEXTROSE 4 GM CHEWABLE PO SCH ×15 (01:07→19:29)
[2016-06-15 02:03] LABS: Glucose,Whole Blood 125 mg/dL (75-99)
[2016-06-15 03:10] LABS: Glucose,Whole Blood 93 mg/dL (75-99)
[2016-06-15 04:12] LABS: Glucose,Whole Blood 94 mg/dL (75-99)
[2016-06-15] MEDS: DEXTROSE 10% IN WATER 1,000 ML IV SCH ×2 (04:56→13:50)
[2016-06-15 05:59] LABS: Glucose,Whole Blood 92 mg/dL (75-99)
[2016-06-15 08:05] LABS: Glucose,Whole Blood 110 mg/dL (75-99)
[2016-06-15] MEDS: FAMOTIDINE 20 MG TAB PO SCH (08:33)
[2016-06-15] MEDS: PREGABALIN 50 MG CAP PO SCH ×2 (08:33→17:15)
[2016-06-15] MEDS: LEVOTHYROXINE 100 MCG TAB PO SCH (08:33)
[2016-06-15] MEDS: MONTELUKAST 10 MG TAB PO SCH (08:33)
[2016-06-15] MEDS: ARIPiprazole 5 MG TAB PO SCH (08:33)
[2016-06-15] MEDS: DESVENLAFAXINE SUCCINATE 50 MG TAB.ER.24H PO SCH (08:33)
[2016-06-15] MEDS: ENOXAPARIN 40 MG/0.4 ML SYRINGE SQ SCH (08:34)
[2016-06-15] MEDS: HYDROcodone/APAP 7.5-325MG 1 EACH TAB PO PRN ×2 (08:34→13:50)
[2016-06-15] MEDS: BECLOMETHASONE DIP 80 MCG/PUFF INHALER INHALATION SCH ×2 (09:54→19:22)
[2016-06-15 10:28] LABS: Glucose,Whole Blood 101 mg/dL (75-99)
[2016-06-15] MEDS: ONDANSETRON 4 MG TAB PO PRN (11:47)
[2016-06-15 12:12] LABS: Glucose,Whole Blood 118 mg/dL (75-99)
[2016-06-15 14:48] LABS: Glucose,Whole Blood 102 mg/dL (75-99)
--- NOTE | 2016-06-15 15:46 | PN ---
DATE OF SERVICE: 06/15/2016 PRESENTING COMPLAINT: Diarrhea. INTERVAL HISTORY: This patient presented with hypoglycemia, also having some diarrhea and abdominal discomfort. C. difficile has been negative, not much of an appetite. Also on dextrose drip. Review of systems done for constitutional, cardiovascular, GI, pulmonary; relevant findings as above. Current medications are reviewed and include glucose chew tablets. On examination, temperature 97, pulse 87, respiration 16, blood pressure 105/60, pulse ox 100%. GENERAL APPEARANCE: Lying in bed, tired appearing. EYES: Pupils equal. Conjunctivae normal. NECK: JVD not raised. Mass not palpable. RESPIRATORY: Effort normal. Lungs are clear. CARDIOVASCULAR: First and second sounds normal. No edema. ABDOMEN: Minimal tenderness, soft. Liver and spleen not palpable. PSYCHIATRY: Alert and oriented x3. Mood and affect normal. INVESTIGATIONS: Accu-Cheks are noted. ASSESSMENT: 1. Acute gastroenteritis, likely vital, somewhat slow to respond. Clostridium difficile has been ruled out. 2. Hypoglycemia from decreased oral intake. 3. Moderate persistent asthma, controlled. 4. Chronic lumbar herniated disc. 5. Hypothyroidism, chronic. 6. Depression, not otherwise specified. 7. Gastroesophageal reflux disease. 8. Chronic bulimia. 9. Dehydration especially with elevated BUN and creatinine. PLAN: Will start the patient on Lomotil. Send off stool for ova and parasite. Keep the patient on D10 drip until numbers come up more.
[2016-06-15 16:02] LABS: Glucose,Whole Blood 86 mg/dL (75-99)
[2016-06-15] MEDS ORDERED: DEXTROSE 4 GM CHEWABLE PO PRN (16:24)
[2016-06-15] MEDS: DIPHENOX-ATROP 2.5-0.025 MG 1 EACH TAB PO SCH ×2 (17:15→19:28)
[2016-06-15 17:50] LABS: Glucose,Whole Blood 105 mg/dL (75-99)
[2016-06-15 20:15] LABS: Glucose,Whole Blood 77 mg/dL (75-99)
[2016-06-15 23:21] LABS: Glucose,Whole Blood 91 mg/dL (75-99)
[2016-06-16] MEDS: traZODone HCL 50 MG TAB PO SCH ×2 (00:35→20:24)
[2016-06-16] MEDS: DEXTROSE 10% IN WATER 1,000 ML IV SCH (00:35)
[2016-06-16] MEDS: FAMOTIDINE 20 MG TAB PO SCH ×3 (00:35→20:24)
[2016-06-16] MEDS: PREGABALIN 50 MG CAP PO SCH ×3 (00:35→17:06)
[2016-06-16] MEDS: DIPHENOX-ATROP 2.5-0.025 MG 1 EACH TAB PO SCH ×5 (00:36→20:24)
[2016-06-16 00:37] LABS: Glucose,Whole Blood 108 mg/dL (75-99)
[2016-06-16 01:59] LABS: Glucose,Whole Blood 102 mg/dL (75-99)
[2016-06-16 05:18] LABS: Glucose,Whole Blood 109 mg/dL (75-99)
[2016-06-16 06:35] LABS: Glucose,Whole Blood 108 mg/dL (75-99)
[2016-06-16] MEDS: HYDROcodone/APAP 7.5-325MG 1 EACH TAB PO PRN (07:05)
[2016-06-16 07:12] VITALS: RESP 16
[2016-06-16 07:30] LABS: Basophils % (A) 1 %; CH 34.1; CHCM 35.4; Eosinophils # (A) 0.1 k/uL (0-0.7); Eosinophils % (A) 1 %; HCT 36.6 % (34.0-46.0); HDW 2.87; HGB 12.3 gm/dL (11.4-16.0); Luc # (Auto) 0.07; Luc % (Auto) 1; Lymphocytes % (A) 20 %; MCH 32.5 pg (25.0-35.0); MCHC 33.6 g/dL (31.0-37.0); MCV 96.8 fL (80.0-100.0); Mean Platelet Volume 7.1; Monocytes # (A) 0.3 k/uL (0-1.0); Monocytes % (A) 6 %; Neutrophils # (A) 3.5 k/uL (1.3-7.7); Neutrophils % (A) 72 %; RBC 3.78 m/uL (3.80-5.40); RDW 12.3 % (11.5-15.5); WBC 4.9 k/uL (3.8-10.6); WBC (Perox) 4.91
[2016-06-16 08:03] LABS: Anion Gap 9 mmol/L; Blood Urea Nitrogen 11 mg/dL (7-17); Calcium 8.8 mg/dL (8.4-10.2); Carbon Dioxide 23 mmol/L (22-30); Chloride 108 mmol/L (98-107); Glucose 97 mg/dL (74-99); Magnesium 2.1 mg/dL (1.6-2.3); Non-African American GFR(MDRD) >60 (>60 ml/min/1.73 sqM); Potassium 4.2 mmol/L (3.5-5.1); Sodium 140 mmol/L (137-145)
[2016-06-16 08:09] LABS: Glucose,Whole Blood 102 mg/dL (75-99)
[2016-06-16] MEDS: ARIPiprazole 5 MG TAB PO SCH (08:27)
[2016-06-16] MEDS: DESVENLAFAXINE SUCCINATE 50 MG TAB.ER.24H PO SCH (08:28)
[2016-06-16] MEDS: ENOXAPARIN 40 MG/0.4 ML SYRINGE SQ SCH (08:28)
[2016-06-16] MEDS: MONTELUKAST 10 MG TAB PO SCH (08:29)
[2016-06-16] MEDS: LEVOTHYROXINE 100 MCG TAB PO SCH (08:29)
[2016-06-16] MEDS: BECLOMETHASONE DIP 80 MCG/PUFF INHALER INHALATION SCH ×3 (09:04→20:45)
[2016-06-16 10:21] LABS: Glucose,Whole Blood 100 mg/dL (75-99)
[2016-06-16 11:59] LABS: Glucose,Whole Blood 94 mg/dL (75-99)
[2016-06-16 14:19] LABS: Glucose,Whole Blood 93 mg/dL (75-99)
[2016-06-16 16:10] LABS: Glucose,Whole Blood 89 mg/dL (75-99)
[2016-06-16 17:56] LABS: Glucose,Whole Blood 89 mg/dL (75-99)
[2016-06-16] MEDS: ONDANSETRON 4 MG TAB PO PRN (18:38)
[2016-06-16] MEDS ORDERED: ALBUTEROL NEBULIZED 2.5 MG/3 ML INHALATION PRN (19:03)
[2016-06-16 20:20] LABS: Glucose,Whole Blood 93 mg/dL (75-99)
[2016-06-16 22:14] LABS: Glucose,Whole Blood 106 mg/dL (75-99)
[2016-06-17] MEDS: PREGABALIN 50 MG CAP PO SCH ×2 (00:11→06:59)
[2016-06-17 00:14] LABS: Glucose,Whole Blood 140 mg/dL (75-99)
[2016-06-17 02:02] LABS: Glucose,Whole Blood 97 mg/dL (75-99)
[2016-06-17 04:18] LABS: Glucose,Whole Blood 108 mg/dL (75-99)
[2016-06-17 06:10] LABS: Glucose,Whole Blood 90 mg/dL (75-99)
[2016-06-17] MEDS: HYDROcodone/APAP 7.5-325MG 1 EACH TAB PO PRN (06:59)
[2016-06-17 07:58] LABS: Anion Gap 9 mmol/L; Blood Urea Nitrogen 14 mg/dL (7-17); Calcium 8.8 mg/dL (8.4-10.2); Carbon Dioxide 24 mmol/L (22-30); Chloride 109 mmol/L (98-107); Glucose 84 mg/dL (74-99); Non-African American GFR(MDRD) >60 (>60 ml/min/1.73 sqM); Potassium 4.3 mmol/L (3.5-5.1); Sodium 142 mmol/L (137-145)
[2016-06-17 08:11] LABS: Glucose,Whole Blood 99 mg/dL (75-99)
[2016-06-17] MEDS: DESVENLAFAXINE SUCCINATE 50 MG TAB.ER.24H PO SCH (08:24)
[2016-06-17] MEDS: ARIPiprazole 5 MG TAB PO SCH (08:24)
[2016-06-17] MEDS: ENOXAPARIN 40 MG/0.4 ML SYRINGE SQ SCH (08:25)
[2016-06-17] MEDS: FAMOTIDINE 20 MG TAB PO SCH (08:28)
[2016-06-17] MEDS: LEVOTHYROXINE 100 MCG TAB PO SCH (08:28)
[2016-06-17] MEDS: MONTELUKAST 10 MG TAB PO SCH (08:29)
[2016-06-17] MEDS: DIPHENOX-ATROP 2.5-0.025 MG 1 EACH TAB PO SCH ×2 (08:38→13:08)
[2016-06-17] MEDS: BECLOMETHASONE DIP 80 MCG/PUFF INHALER INHALATION SCH (09:26)
[2016-06-17 10:17] LABS: Glucose,Whole Blood 85 mg/dL (75-99)
[2016-06-17 12:04] LABS: Glucose,Whole Blood 93 mg/dL (75-99)
--- NOTE | 2016-06-17 12:04 | PN ---
DATE OF SERVICE: 06/16/2016 PRESENTING COMPLAINT: Low sugars. INTERVAL HISTORY: This patient presented with hyperglycemia, acute ( ) diarrhea is actually better. Tolerating some diet. Sugars are running somewhat better, though still on D10 drip. Review of systems done for constitutional, cardiovascular, GI, pulmonary; relevant findings as above. Current medications are reviewed. On examination, temperature 98.2, pulse 90, respiration 16, blood pressure 120/71, pulse ox 92% on room air. GENERAL APPEARANCE: Sitting in bed, not in distress. EYES: Pupils equal. Conjunctivae normal. NECK: JVD not raised. Mass not palpable. RESPIRATORY: Effort normal. Lungs are clear. CARDIOVASCULAR: First and second sounds normal. No edema. ABDOMEN: Soft, nontender. Liver and spleen not palpable. PSYCHIATRY: Alert and oriented x3. Mood and affect normal. INVESTIGATIONS: Accu-Cheks are noted. ASSESSMENT: 1. Acute gastroenteritis likely viral ( ) gastroenteritis improved. 2. Hypoglycemia from decreased oral intake. 3. Moderate persistent asthma controlled. 4. Chronic lumbar herniated disc. 5. Hypothyroidism, chronic. 6. Depression, not otherwise specified. 7. Gastroesophageal reflux disease. 8. Chronic bulimia. 9. Dehydration. PLAN: We will stop the patient D10, encourage the patient to increased oral intake. Hopefully sugars will do better with that. Follow.
[2016-06-17 14:29] LABS: Glucose,Whole Blood 93 mg/dL (75-99)
[2016-06-17 15:02] VITALS: BP 120/76; PULSE 96; TEMP 98.1
--- NOTE | 2016-06-19 23:15 | DS ---
DATE OF ADMISSION: 06/13/2016 DATE OF DISCHARGE: 06/17/2016 FINAL DIAGNOSES: 1. Acute gastroenteritis, likely viral, present on admission. 2. Hypoglycemia from decreased oral intake, persistent, with a history of gastric lap band. 3. Moderate persistent asthma, controlled. 4. Chronic lumbar herniated disc. 5. Hypothyroidism, chronic. 6. Depression not otherwise specified. 7. Gastroesophageal reflux disease. 8. Chronic bulimia. 9. Dehydration. HOSPITAL COURSE: This patient yet again presented with hypoglycemia; had to be put on a D10 drip. She also had acute gastroenteritis, which was making things worse. Patient was eating well at the time of discharge. On the day of discharge, discussed at length with the patient about getting her lap band deflated. Dr. Dupree is out of town. Making a consultation to follow up because of recurrent hypoglycemia. She needs to have the lap band deflated for sure. ( ) patient has a history of bulimia, this is a problem. Care was discussed ( ) on the day of discharge. On examination, lungs are clear. CARDIOVASCULAR: First and second sounds normal. Discharge planning more than 35 minutes. DISCHARGE MEDICATIONS: 1. Xopenex nebulizer q.i.d. p.r.n. 2. Synthroid 100 mcg p.o. daily. 3. Singulair 10 mg p.o. daily. 4. Xopenex nebulized 2 puffs q.6 p.r.n. 5. Abilify 5 mg p.o. daily. 6. Pristiq 100 mg p.o. daily. 7. Depo-Provera 150 mg IM q.90 days. 8. Desyrel 150 mg p.o. at bedtime. 9. Pepcid 20 mg p.o. b.i.d. 10. Naproxen 500 mg p.o. q.12 p.r.n. 11. [place] 7.5 one tablet q.6 p.r.n. 12. Lyrica 50 mg p.o. q.8. 13. Qvar 80 mcg 1 puff b.i.d. 14. Zofran 4 mg p.o. q.8 p.r.n. 15. Aspirin daily p.r.n. Follow up with Dr. Dupree in one week. Follow up with Dr. Gonzalez in 3 days. 2200-calorie diet. Discharge planning more than 35 minutes.
[2016-07-15] MEDS ORDERED: medroxyPROGESTERone 150 MG/ML 1ML VIAL IM SCH (09:00)
== END 2016-06-17 16:56 | disposition home or self-care (01) | DRG 638 ==
LOC: EC 17:35 → 3SUR 22:31
PROVIDERS: ADMIT Hospitalist; ATTEND Hospitalist
DX: E11.649 Type 2 diabetes mellitus with hypoglycemia without coma (principal); F50.2 Bulimia nervosa; E86.0 Dehydration; A08.4 Viral intestinal infection, unspecified; K21.9 Gastro-esophageal reflux disease without esophagitis; J45.40 Moderate persistent asthma, uncomplicated; R94.4 Abnormal results of kidney function studies; R10.9 Unspecified abdominal pain; G89.29 Other chronic pain; G40.909 Epilepsy, unspecified, not intractable, without status epilepticus; I25.10 Atherosclerotic heart disease of native coronary artery without angina pectoris; F32.9 Major depressive disorder, single episode, unspecified; E03.9 Hypothyroidism, unspecified; M51.26 Other intervertebral disc displacement, lumbar region; F51.4 Sleep terrors [night terrors]; G47.9 Sleep disorder, unspecified; F41.9 Anxiety disorder, unspecified; Z80.8 Family history of malignant neoplasm of other organs or systems; Z90.49 Acquired absence of other specified parts of digestive tract; Z86.14 Personal history of Methicillin resistant Staphylococcus aureus infection; Z87.81 Personal history of (healed) traumatic fracture; Z83.79 Family history of other diseases of the digestive system; Z98.84 Bariatric surgery status; Z87.11 Personal history of peptic ulcer disease; Z80.0 Family history of malignant neoplasm of digestive organs; Z79.82 Long term (current) use of aspirin; Z87.440 Personal history of urinary (tract) infections; Z88.8 Allergy status to other drugs, medicaments and biological substances; Z91.048 Other nonmedicinal substance allergy status; Z79.891 Long term (current) use of opiate analgesic; Z79.51 Long term (current) use of inhaled steroids; Z79.899 Other long term (current) drug therapy; Z79.3 Long term (current) use of hormonal contraceptives
CPT/HCPCS: 36415; 74020; 80048; 80053; 80299; 81001; 82150; 83605; 83690; 83735; 84439; 84443; 85025; 87086; 87324; 87328; 87329; 94640; 96361; 96374; 96375; 96376; 99285

== ENCOUNTER 2016-06-19 20:09 | Observation (INO) | payer OTHER ==
[2016-06-19 20:27] VITALS: RESP 16
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
[2016-06-19 21:30] LABS: Glucose,Whole Blood 87 mg/dL (75-99)
[2016-06-19 22:39] LABS: Glucose,Whole Blood 67 mg/dL (75-99)
[2016-06-19 22:39] LABS: Glucose,Whole Blood 64 mg/dL (75-99)
[2016-06-19] MEDS ORDERED: DEXTROSE 5%-0.45% NACL 1,000 ML IV ONE (23:00)
[2016-06-19] MEDS ORDERED: NALOXONE 0.4 MG/ML 1 ML VIAL IV PRN (23:03)
[2016-06-19] MEDS ORDERED: IBUPROFEN 400 MG TAB PO PRN (23:03)
[2016-06-19] MEDS ORDERED: ACETAMINOPHEN TAB 325 MG TAB PO PRN (23:03)
[2016-06-19] MEDS ORDERED: LEVALBUTEROL 0.63 MG INHALATION PRN (23:10)
[2016-06-19] MEDS ORDERED: ONDANSETRON 4 MG TAB PO PRN (23:10)
[2016-06-19] MEDS ORDERED: DEXTROSE 5%-0.45% NACL 1,000 ML IV SCH (23:15)
[2016-06-19 23:53] LABS: ALT 37 U/L (9-52); AST 20 U/L (14-36); Alkaline Phosphatase 43 U/L (38-126); Anion Gap 13 mmol/L; Blood Urea Nitrogen 20 mg/dL (7-17); Calcium 9.2 mg/dL (8.4-10.2); Carbon Dioxide 25 mmol/L (22-30); Chloride 105 mmol/L (98-107); Glucose 61 mg/dL (74-99); Non-African American GFR(MDRD) >60 (>60 ml/min/1.73 sqM); Potassium 3.8 mmol/L (3.5-5.1); Sodium 143 mmol/L (137-145); Total Bilirubin 0.6 mg/dL (0.2-1.3); Total Protein 6.9 g/dL (6.3-8.2)
[2016-06-20 00:05] LABS: Glucose,Whole Blood 69 mg/dL (75-99)
[2016-06-20 00:46] LABS: Glucose,Whole Blood 61 mg/dL (75-99)
[2016-06-20 00:52] LABS: Basophils % (A) 1 %; CH 34.4; CHCM 36.9; Eosinophils # (A) 0.1 k/uL (0-0.7); Eosinophils % (A) 1 %; HDW 2.84; HGB 13.7 gm/dL (11.4-16.0); Luc # (Auto) 0.05; Luc % (Auto) 1; Lymphocytes # (A) 2.1 k/uL (1.0-4.8); Lymphocytes % (A) 29 %; MCHC 35.2 g/dL (31.0-37.0); MCV 93.8 fL (80.0-100.0); Mean Platelet Volume 7.2; Monocytes # (A) 0.3 k/uL (0-1.0); Monocytes % (A) 5 %; Neutrophils # (A) 4.7 k/uL (1.3-7.7); Neutrophils % (A) 65 %; RBC 4.16 m/uL (3.80-5.40); RDW 12.5 % (11.5-15.5); WBC 7.3 k/uL (3.8-10.6)
[2016-06-20 01:06] LABS: Glucose,Whole Blood 63 mg/dL (75-99)
[2016-06-20] MEDS: PREGABALIN 50 MG CAP PO SCH ×3 (01:06→17:56)
[2016-06-20] MEDS: DEXTROSE 50%-WATER 50 ML SYRINGE IVP ONE ×2 (01:06→02:09)
[2016-06-20] MEDS ORDERED: DEXTROSE 5% IN WATER 1,000 ML IV SCH (01:30)
[2016-06-20 01:36] LABS: Glucose,Whole Blood 138 mg/dL (75-99)
[2016-06-20] MEDS: ONDANSETRON 4 MG/2 ML VIAL IVP PRN ×2 (01:40→07:45)
[2016-06-20 01:59] VITALS: BMI 28.3
[2016-06-20 02:02] LABS: Glucose,Whole Blood 42 mg/dL (75-99)
[2016-06-20] MEDS: DEXTROSE 4 GM CHEWABLE PO SCH ×11 (02:07→22:18)
[2016-06-20 02:16] LABS: Glucose,Whole Blood 44 mg/dL (75-99)
[2016-06-20 02:27] LABS: Glucose,Whole Blood 156 mg/dL (75-99)
[2016-06-20 03:50] LABS: Glucose,Whole Blood 39 mg/dL (75-99)
[2016-06-20 04:00] LABS: Glucose,Whole Blood 72 mg/dL (75-99)
[2016-06-20] MEDS ORDERED: DEXTROSE 10% IN WATER 1,000 ML in EMPTY BAG 1 BAG IV SCH (04:15)
[2016-06-20 04:48] LABS: Glucose,Whole Blood 70 mg/dL (75-99)
[2016-06-20 05:52] LABS: Glucose,Whole Blood 72 mg/dL (75-99)
[2016-06-20] MEDS: LEVOTHYROXINE 100 MCG TAB PO SCH (05:56)
[2016-06-20 07:24] LABS: Glucose,Whole Blood 77 mg/dL (75-99)
[2016-06-20 07:40] LABS: Basophils % (A) 1 %; CH 34.3; CHCM 36.2; Eosinophils # (A) 0.1 k/uL (0-0.7); Eosinophils % (A) 1 %; HCT 36.6 % (34.0-46.0); HDW 2.82; HGB 12.9 gm/dL (11.4-16.0); Luc % (Auto) 2; Lymphocytes # (A) 1.3 k/uL (1.0-4.8); Lymphocytes % (A) 23 %; MCH 33.7 pg (25.0-35.0); MCHC 35.3 g/dL (31.0-37.0); MCV 95.4 fL (80.0-100.0); Mean Platelet Volume 6.4; Monocytes # (A) 0.3 k/uL (0-1.0); Monocytes % (A) 6 %; Neutrophils # (A) 3.7 k/uL (1.3-7.7); Neutrophils % (A) 66 %; RBC 3.84 m/uL (3.80-5.40); RDW 12.3 % (11.5-15.5); WBC 5.5 k/uL (3.8-10.6); WBC (Perox) 6.02
[2016-06-20 07:43] LABS: Glucose,Whole Blood 82 mg/dL (75-99)
[2016-06-20 07:57] LABS: ALT 40 U/L (9-52); AST 18 U/L (14-36); Alkaline Phosphatase 35 U/L (38-126); Anion Gap 12 mmol/L; Blood Urea Nitrogen 15 mg/dL (7-17); Calcium 8.7 mg/dL (8.4-10.2); Carbon Dioxide 22 mmol/L (22-30); Chloride 107 mmol/L (98-107); Glucose 62 mg/dL (74-99); Non-African American GFR(MDRD) >60 (>60 ml/min/1.73 sqM); Potassium 4.1 mmol/L (3.5-5.1); Sodium 141 mmol/L (137-145); Total Bilirubin 0.6 mg/dL (0.2-1.3)
[2016-06-20] MEDS: DESVENLAFAXINE SUCCINATE 50 MG TAB.ER.24H PO SCH (07:57)
[2016-06-20] MEDS: MONTELUKAST 10 MG TAB PO SCH (07:58)
[2016-06-20] MEDS: ARIPiprazole 5 MG TAB PO SCH (07:58)
[2016-06-20] MEDS: PANTOPRAZOLE 40 MG/10 ML VIAL IVP SCH (07:59)
[2016-06-20] MEDS ORDERED: HYDROcodone/APAP 7.5-325MG 1 EACH TAB PO PRN (08:06)
[2016-06-20] MEDS ORDERED: FAMOTIDINE 20 MG TAB PO SCH (09:00)
[2016-06-20 09:01] LABS: Glucose,Whole Blood 65 mg/dL (75-99)
[2016-06-20] MEDS: HYDROcodone/APAP 7.5-325MG 1 EACH TAB PO PRN ×2 (09:06→14:13)
[2016-06-20 09:26] LABS: Appearance,Urine Clear (Clear); Bilirubin,Urine Negative (Negative); Glucose,Urine (UA) Negative (Negative); Ketones,Urine Negative (Negative); Leukocyte Esterase,Urine Negative (Negative); Nitrite,Urine Negative (Negative); PH, Urine 6.5 (5.0-8.0); Particle Count 572; Protein,Urine Negative (Negative); Specific Gravity,Urine 1.005 (1.001-1.035); Squamous Epithelial Cell,Urine <1 /hpf (0-4); UA Billing (MACRO vs. MICRO) MICRO; Urobilinogen,Urine <2.0 mg/dL (<2.0); WBC,Urine 1 /hpf (0-5)
[2016-06-20 10:53] LABS: Glucose,Whole Blood 87 mg/dL (75-99)
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
[2016-06-20 12:13] LABS: Glucose,Whole Blood 88 mg/dL (75-99)
[2016-06-20] MEDS ORDERED: LEVALBUTEROL NEB 1.25 MG/3 ML AMP INHALATION PRN (12:15)
--- NOTE | 2016-06-20 13:24 | HP ---
DATE OF ADMISSION: 06/19/2016 Patient is a pleasant 35-year-old female who came in because of her low blood sugars and patient does have symptoms of palpitations apparently along with some lightheadedness. Patient does take steroids on and off because of her asthma whenever she is getting off the steroids, patient becomes hypoglycemic apparently. Patient was evaluated in the recent past by Dr. English and patient has recurrent nausea, vomiting, which is also contributing to hyperglycemia. Along with that, patient has lap band surgery which has removal of a little bit of fluid from the lap band would probably help her hypoglycemia because of which surgery was consulted. Removed about 1 milliliters of fluid from the lap band already. Patient ( ) nausea. I am also doing further testing for hypoglycemia evaluation including evaluation for hypocortisolism. I will obtain an cosyntropin stimulation test and TSH level will be obtained as well. Along with that I will also do insulin levels, C-peptide levels, ( ) levels as a part of an evaluation for hypoglycemia because of her repeated admissions for the same issue. Patient does take glucose pills with which blood sugar comes up and patient was also getting symptomatic whenever blood sugars goes down to as low as 30 and the patient blood sugars did go down to as low as 30 yesterday. Patient is not tolerating oral diet at this point of time, was complaining of minimal epigastric abdominal burning sensation for which patient was started on Protonix. Patient was treated for gastroenteritis during recent hospitalization. REVIEW OF SYSTEMS: CONSTITUTIONAL: No fever, no malaise, no fatigue. HEENT: No recent visual problems or hearing problems. Denied any sore throat. CARDIOVASCULAR: No chest pain, orthopnea, PND, no palpitations, no syncope. PULMONARY: No shortness of breath, no cough, no hemoptysis. GASTROINTESTINAL: As described in history of present illness. NEUROLOGICAL: No headaches, no weakness, no numbness. HEMATOLOGICAL: Denies any bleeding or petechiae. GENITOURINARY: Denies any burning micturition, frequency, or urgency. MUSCULOSKELETAL/RHEUMATOLOGICAL: Denies any joint pain, swelling, or any muscle pain. ENDOCRINE: Denies any polyuria or polydipsia. The rest of the 14 point review of systems is negative. Home Medications include: 1. Levalbuterol. 2. Levothyroxine. 3. Montelukast. 4. ( )prazole. 5. ( ). 6. Medroxyprogesterone. 7. Trazodone. 8. Famotidine. 9. Naproxen, probably not a good idea. That will be discontinued upon her discharge. 10. Beclomethasone ( ). 11. Patient also takes hydrocodone acetaminophen. 12. Pregabalin. ALLERGIES: ALLERGIC TO POLLEN AND ALBUTEROL. Past medical history is significant for: Asthma, coronary artery disease, gastroesophageal reflux disease, seizure disorder, recurrent hypoglycemic episodes. PAST SURGICAL HISTORY: Significant for bariatric surgery, cholecystectomy, orthopedic surgery and tonsillectomy, ORIF for left elbow twice. Anxiety, depression and patient is quite depressed and because of her recent significant life changing event including which is loss of her 10-year-old son. Patient is complaining of generalized and severe fatigue probably from the depression that is being taken care of as an outpatient, although patient denies any suicidal ideations at this point of time. FAMILY HISTORY: Significant for mother of pneumonias and her son of brain cancer and father had liver cancer. PHYSICAL EXAMINATION: VITAL SIGNS: Temperature 98.1, pulse of 91, respiratory rate of 16. Blood pressure is 98/60, saturating at 96% on room air. GENERAL: The patient is alert and oriented x3, not in any acute distress. Well developed, well nourished. HEENT: Pupils are round and equally reacting to light. EOMI. No scleral icterus. No conjunctival pallor. Normocephalic, atraumatic. No pharyngeal erythema. No thyromegaly. CARDIOVASCULAR: S1 and S2 present. No murmurs, rubs, or gallops. PULMONARY: Chest is clear to auscultation, no wheezing or crackles. ABDOMEN: Soft, nontender, nondistended, normoactive bowel sounds. No palpable organomegaly. MUSCULOSKELETAL: No joint swelling or deformity. EXTREMITIES: No cyanosis, clubbing, or pedal edema. NEUROLOGICAL: Gross neurological examination did not reveal any focal deficits. SKIN: No rashes. LABORATORY DATA: CBC, BMP are essentially within normal limits. On D5, patient blood sugar remains at 65 and 87. ASSESSMENT AND PLAN: 1. Recurrent hypoglycemia. The reasons being unable to tolerate oral diet, and management as mentioned above. Removal of some of the fluid from the lap band. Along with that we will also use Ensure Plus or Boost. The same thing was discussed with nutrition services and we will look for causes of hypoglycemia including hypocortisolism and we will also make sure the patient is not using any insulin or sulfonylurea. We will do C-peptide level and sulfonylurea level and we will make sure the patient ( ) the rare causes can be insulinoma and hypopituitarism. Patient will be evaluated for those as well and we will also consult endocrinology. 2. Lap band surgery. 3. Asthma without any acute exacerbation. Continue her home medications for that. Patient is on tapering dose of steroids. 4. Gastroesophageal reflux disease and gastritis for which we will use Protonix. Patient is having nausea, vomiting. 5. Questionable history of seizure disorder. 6. Severe depression. 7. Generalized fatigue due to depression. Patient's primary care physician is Dr. Slade Gonzalez.
[2016-06-20] MEDS: BECLOMETHASONE DIP 80 MCG/PUFF INHALER INHALATION SCH ×2 (14:01→19:40)
[2016-06-20 14:11] LABS: Glucose,Whole Blood 68 mg/dL (75-99)
[2016-06-20 15:05] LABS: Glucose,Whole Blood 109 mg/dL (75-99)
[2016-06-20] MEDS ORDERED: BUTA/APAP/CAF/COD 50-325-40-30 CAP PO STA (15:08)
[2016-06-20 16:40] LABS: Glucose,Whole Blood 104 mg/dL (75-99)
[2016-06-20 17:54] LABS: Glucose,Whole Blood 86 mg/dL (75-99)
[2016-06-20 20:11] LABS: Glucose,Whole Blood 61 mg/dL (75-99)
[2016-06-20 20:46] LABS: Glucose,Whole Blood 96 mg/dL (75-99)
[2016-06-20] MEDS ORDERED: traZODone HCL 50 MG TAB PO SCH (21:00)
[2016-06-20 22:31] LABS: Glucose,Whole Blood 100 mg/dL (75-99)
[2016-06-21 00:01] LABS: Glucose,Whole Blood 89 mg/dL (75-99)
[2016-06-21] MEDS: DEXTROSE 4 GM CHEWABLE PO SCH ×7 (00:48→12:12)
[2016-06-21] MEDS: PREGABALIN 50 MG CAP PO SCH ×2 (00:48→08:31)
[2016-06-21 02:11] LABS: Glucose,Whole Blood 129 mg/dL (75-99)
[2016-06-21 04:10] LABS: Glucose,Whole Blood 101 mg/dL (75-99)
[2016-06-21 06:04] LABS: Glucose,Whole Blood 99 mg/dL (75-99)
[2016-06-21] MEDS: LEVOTHYROXINE 100 MCG TAB PO SCH (06:32)
[2016-06-21 07:53] LABS: Glucose,Whole Blood 112 mg/dL (75-99)
[2016-06-21] MEDS: BECLOMETHASONE DIP 80 MCG/PUFF INHALER INHALATION SCH (08:20)
[2016-06-21 08:22] VITALS: BP 106/61; PULSE 81; TEMP 97
[2016-06-21] MEDS: HYDROcodone/APAP 7.5-325MG 1 EACH TAB PO PRN (08:31)
[2016-06-21] MEDS: DESVENLAFAXINE SUCCINATE 50 MG TAB.ER.24H PO SCH (08:33)
[2016-06-21] MEDS: ARIPiprazole 5 MG TAB PO SCH (08:33)
[2016-06-21] MEDS: PANTOPRAZOLE 40 MG/10 ML VIAL IVP SCH ×2 (08:33→08:35)
[2016-06-21] MEDS: MONTELUKAST 10 MG TAB PO SCH (08:33)
[2016-06-21] MEDS ORDERED: PANTOPRAZOLE 40 MG TABLET PO SCH (08:45)
[2016-06-21 09:15] LABS: CH 33.8; CHCM 34.6; HCT 36.7 % (34.0-46.0); HDW 2.84; HGB 12.3 gm/dL (11.4-16.0); MCH 33.1 pg (25.0-35.0); MCHC 33.6 g/dL (31.0-37.0); MCV 98.3 fL (80.0-100.0); Mean Platelet Volume 6.3; RBC 3.73 m/uL (3.80-5.40); RDW 12.5 % (11.5-15.5); WBC 5.3 k/uL (3.8-10.6)
[2016-06-21 09:19] LABS: Anion Gap 11 mmol/L; Blood Urea Nitrogen 14 mg/dL (7-17); Calcium 8.6 mg/dL (8.4-10.2); Carbon Dioxide 21 mmol/L (22-30); Chloride 110 mmol/L (98-107); Glucose 108 mg/dL (74-99); Non-African American GFR(MDRD) 57 (>60 ml/min/1.73 sqM); Potassium 3.9 mmol/L (3.5-5.1); Sodium 142 mmol/L (137-145)
[2016-06-21 10:43] LABS: Glucose,Whole Blood 102 mg/dL (75-99)
[2016-06-21 12:00] LABS: Glucose,Whole Blood 102 mg/dL (75-99)
[2016-06-21 14:16] LABS: Glucose,Whole Blood 113 mg/dL (75-99)
--- NOTE | 2016-06-21 14:49 | PN ---
Patient is a 35-year-old admitted with hypoglycemia, etiology is not clear. The C-peptide level and insulin levels are essentially within normal limits. I ordered random cortisol level which is less than 5. I ordered a cosyntropin stimulation test, which was not done appropriately. I do not have any levels after injection of cosyntropin. Because of which I cannot really diagnose any hypocortisolism. That can be done as an outpatient. Patient is doing clinically well, able to tolerate oral diet well and patient was recommended to take Boost for her low blood sugars and patient had 1 mL of fluid removed from the lap band. I recommended her not to take naproxen and patient will be changed to Prilosec for 14 days. After that she can continue with Pepcid. Patient was seen and examined on the day of discharge. Vitals are stable. PHYSICAL EXAMINATION: GENERAL: The patient is alert and oriented x3, not in any acute distress. Well developed, well nourished. HEENT: Pupils are round and equally reacting to light. EOMI. No scleral icterus. No conjunctival pallor. Normocephalic, atraumatic. No pharyngeal erythema. No thyromegaly. CARDIOVASCULAR: S1 and S2 present. No murmurs, rubs, or gallops. PULMONARY: Chest is clear to auscultation, no wheezing or crackles. ABDOMEN: Soft, nontender, nondistended, normoactive bowel sounds. No palpable organomegaly. MUSCULOSKELETAL: No joint swelling or deformity. EXTREMITIES: No cyanosis, clubbing, or pedal edema. NEUROLOGICAL: Gross neurological examination did not reveal any focal deficits. SKIN: No rashes. FINAL DIAGNOSES: 1. Recurrent hypoglycemia, multifactorial, including unable to tolerate p.o. diet along with the lab band surgery. Further recommendations as mentioned above. Patient will be referred to endocrinology. Further work-up that was done here as mentioned above. 2. Lap band surgery. 3. Asthma without any acute exacerbation. 4. Gastroesophageal reflux disease. 5. Questionable history of seizure disorder. 6. Severe depression. 7. Generalized fatigue, probably due to depression. Please refer to my depart summary for further details of discharge medications. Patient will follow with Dr. Gonzalez in 3 to 7 days, Dr. Poly Montano in about a week. Activity as tolerated. Regular diet.
--- NOTE | 2016-07-12 07:30 | DS ---
DATE OF ADMISSION: 06/19/2016 DATE OF DISCHARGE: 06/21/2016 DATE OF SERVICE: 06/21/2016 Please refer to my dictation of progress note that is actually a discharge summary.
== END 2016-06-21 14:25 | disposition home or self-care (01) ==
LOC: EC 20:09 → 5MS5E 23:03
PROVIDERS: ADMIT Hospitalist; ATTEND Hospitalist
DX: E11.649 Type 2 diabetes mellitus with hypoglycemia without coma (principal); J45.909 Unspecified asthma, uncomplicated; K21.9 Gastro-esophageal reflux disease without esophagitis; R11.2 Nausea with vomiting, unspecified; F32.9 Major depressive disorder, single episode, unspecified; I25.10 Atherosclerotic heart disease of native coronary artery without angina pectoris; F41.9 Anxiety disorder, unspecified; Z86.14 Personal history of Methicillin resistant Staphylococcus aureus infection; Z98.84 Bariatric surgery status; Z79.899 Other long term (current) drug therapy; Z80.0 Family history of malignant neoplasm of digestive organs; Z80.8 Family history of malignant neoplasm of other organs or systems; Z79.1 Long term (current) use of non-steroidal anti-inflammatories (NSAID); Z79.891 Long term (current) use of opiate analgesic; Z88.8 Allergy status to other drugs, medicaments and biological substances
CPT/HCPCS: 36415; 94640 ×2; 84439; 80053 ×2; 80048; 84443; 82533; 85025 ×2; 85027; 81001; 82024; 83525; 84681; 99285; 96365; G0378 ×3; J2405; C9113; 80377; 96366; 96375; 96376

== ENCOUNTER 2016-06-28 13:45 | Observation (INO) | payer OTHER ==
[2016-06-28 14:29] LABS: Glucose,Whole Blood 57 mg/dL (75-99)
[2016-06-28] MEDS ORDERED: ONDANSETRON 4 MG/2 ML VIAL IVP STA (15:01)
[2016-06-28 15:02] LABS: Glucose,Whole Blood 67 mg/dL (75-99)
[2016-06-28] MEDS ORDERED: DEXTROSE 50%-WATER 50 ML SYRINGE IVP STA ×5 (15:10→22:10)
[2016-06-28] MEDS ORDERED: IPRATROPIUM-ALBUTEROL 3 ML NEB INHALATION STA (15:31)
[2016-06-28] MEDS ORDERED: HYDROcodone/APAP 5-325MG 1 EACH TAB PO STA (15:47)
[2016-06-28 16:01] LABS: Glucose,Whole Blood 165 mg/dL (75-99)
[2016-06-28 16:19] LABS: Basophils % (A) 0 %; CH 34.4; CHCM 35.6; Eosinophils # (A) 0.1 k/uL (0-0.7); Eosinophils % (A) 2 %; HCT 40.5 % (34.0-46.0); HDW 2.81; HGB 13.9 gm/dL (11.4-16.0); Luc # (Auto) 0.13; Luc % (Auto) 1; Lymphocytes # (A) 1.4 k/uL (1.0-4.8); Lymphocytes % (A) 16 %; MCH 33.3 pg (25.0-35.0); MCHC 34.3 g/dL (31.0-37.0); MCV 97.1 fL (80.0-100.0); Mean Platelet Volume 6.7; Monocytes # (A) 0.3 k/uL (0-1.0); Monocytes % (A) 4 %; Neutrophils # (A) 6.8 k/uL (1.3-7.7); Neutrophils % (A) 77 %; RBC 4.17 m/uL (3.80-5.40); RDW 12.5 % (11.5-15.5); WBC 8.8 k/uL (3.8-10.6); WBC (Perox) 9.24
[2016-06-28 16:22] LABS: Anion Gap 12 mmol/L; Blood Urea Nitrogen 16 mg/dL (7-17); Calcium 9.3 mg/dL (8.4-10.2); Carbon Dioxide 26 mmol/L (22-30); Chloride 106 mmol/L (98-107); Non-African American GFR(MDRD) >60 (>60 ml/min/1.73 sqM); Potassium 3.4 mmol/L (3.5-5.1); Sodium 144 mmol/L (137-145)
[2016-06-28 16:25] LABS: Glucose 48 mg/dL (74-99)
[2016-06-28 16:52] LABS: Glucose,Whole Blood 61 mg/dL (75-99)
--- NOTE | 2016-06-28 17:11 | XR ---
EXAMINATION TYPE: XR chest 2V DATE OF EXAM: 06/28/2016 4:57 PM COMPARISON: Prior chest x-ray 08 June 2016 HISTORY: Hypoglycemia, pain, bronchitis TECHNIQUE: Frontal and lateral views of the chest are obtained. FINDINGS: There is no focal air space opacity, pleural effusion, or pneumothorax seen. The cardiac silhouette size is within normal limits. Patient is status post lap band. The osseous structures are intact. IMPRESSION: No acute cardiopulmonary process.
[2016-06-28] MEDS ORDERED: DEXTROSE 5%-0.45% NACL 1,000 ML IV ONE (17:34)
[2016-06-28 17:43] LABS: Glucose,Whole Blood 51 mg/dL (75-99)
[2016-06-28] MEDS ORDERED: IBUPROFEN 600 MG TAB PO STA (18:06)
[2016-06-28] MEDS ORDERED: NALOXONE 0.4 MG/ML 1 ML VIAL IV PRN (18:47)
[2016-06-28] MEDS ORDERED: ONDANSETRON 4 MG/2 ML VIAL IVP PRN (18:52)
[2016-06-28] MEDS ORDERED: MAG HYDROX/AL HYDROX/SIMETH 30 ML CUP PO PRN (18:52)
[2016-06-28] MEDS ORDERED: DOCUSATE 100 MG CAP PO PRN (18:52)
[2016-06-28] MEDS ORDERED: traZODone HCL 100 MG TAB PO PRN (18:55)
[2016-06-28] MEDS ORDERED: LEVALBUTEROL NEB 1.25 MG/3 ML AMP INHALATION PRN (18:55)
[2016-06-28] MEDS ORDERED: NAPROXEN 250 MG TAB PO PRN (18:55)
[2016-06-28] MEDS ORDERED: HYDROcodone/APAP 7.5-325MG 1 EACH TAB PO PRN (18:55)
[2016-06-28] MEDS ORDERED: LEVALBUTEROL INHALATION PRN (18:55)
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
[2016-06-28] MEDS ORDERED: OMALIZUMAB 150 MG VIAL SQ SCH (19:00)
[2016-06-28 19:36] LABS: Glucose,Whole Blood 56 mg/dL (75-99)
[2016-06-28 19:38] LABS: Appearance,Urine Cloudy (Clear); Bacteria,Urine Occasional /hpf; Bilirubin,Urine Negative (Negative); Glucose,Urine (UA) Negative (Negative); Ketones,Urine Negative (Negative); Leukocyte Esterase,Urine Trace (Negative); Mucus,Urine Rare /hpf; Nitrite,Urine Negative (Negative); Particle Count 3463; Protein,Urine Negative (Negative); RBC,Urine 162 /hpf (0-5); Specific Gravity,Urine 1.019 (1.001-1.035); Squamous Epithelial Cell,Urine 6 /hpf (0-4); UA Billing (MACRO vs. MICRO) MICRO; Urobilinogen,Urine <2.0 mg/dL (<2.0); WBC,Urine 3 /hpf (0-5)
[2016-06-28 20:22] LABS: Glucose,Whole Blood 154 mg/dL (75-99)
[2016-06-28] MEDS ORDERED: MONTELUKAST 10 MG TAB PO SCH (21:00)
[2016-06-28] MEDS ORDERED: FAMOTIDINE 20 MG TAB PO SCH (21:00)
[2016-06-28] MEDS: BUTALB/APAP/CAFF 50-325-40MG TAB PO PRN (21:12)
[2016-06-28 21:27] LABS: Glucose,Whole Blood 66 mg/dL (75-99)
[2016-06-28 22:07] LABS: Glucose,Whole Blood 43 mg/dL (75-99)
[2016-06-28 22:34] LABS: Glucose,Whole Blood 135 mg/dL (75-99)
[2016-06-28] MEDS: FAMOTIDINE 20 MG TAB PO SCH (22:44)
[2016-06-28] MEDS: DEXTROSE 10% IN WATER 1,000 ML in EMPTY BAG 1 BAG IV SCH (22:44)
[2016-06-28] MEDS: guaiFENesin SYRUP 100MG/5ML 200 MG/10 ML CUP PO PRN (23:13)
[2016-06-28] MEDS: DEXTROSE 4 GM CHEWABLE PO SCH (23:14)
[2016-06-28 23:33] LABS: Glucose,Whole Blood 51 mg/dL (75-99)
[2016-06-28] MEDS: BUDESONIDE 0.5 MG/2 ML NEBU INHALATION SCH (23:36)
[2016-06-28 23:53] LABS: Glucose,Whole Blood 64 mg/dL (75-99)
[2016-06-28 23:59] VITALS: BMI 28.3
[2016-06-29 00:18] LABS: Glucose,Whole Blood 68 mg/dL (75-99)
[2016-06-29] MEDS: DEXTROSE 4 GM CHEWABLE PO SCH ×7 (00:30→12:30)
[2016-06-29 00:53] LABS: Glucose,Whole Blood 65 mg/dL (75-99)
[2016-06-29 00:56] LABS: Glucose,Whole Blood 75 mg/dL (75-99)
[2016-06-29 02:03] LABS: Glucose,Whole Blood 76 mg/dL (75-99)
[2016-06-29 02:51] VITALS: RESP 16
[2016-06-29 03:05] LABS: Glucose,Whole Blood 85 mg/dL (75-99)
[2016-06-29 04:02] LABS: Glucose,Whole Blood 73 mg/dL (75-99)
[2016-06-29 04:59] LABS: Glucose,Whole Blood 75 mg/dL (75-99)
[2016-06-29] MEDS: guaiFENesin SYRUP 100MG/5ML 200 MG/10 ML CUP PO PRN (06:01)
[2016-06-29 06:22] LABS: Glucose,Whole Blood 108 mg/dL (75-99)
[2016-06-29] MEDS ORDERED: LEVOTHYROXINE 100 MCG TAB PO SCH (06:30)
[2016-06-29] MEDS: FAMOTIDINE 20 MG TAB PO SCH (07:28)
[2016-06-29 08:11] LABS: Glucose,Whole Blood 78 mg/dL (75-99)
[2016-06-29 08:24] VITALS: BP 107/62; TEMP 97.7
[2016-06-29] MEDS ORDERED: DESVENLAFAXINE SUCCINATE 50 MG TAB.ER.24H PO SCH (09:00)
[2016-06-29] MEDS ORDERED: ARIPiprazole 5 MG TAB PO SCH (09:00)
[2016-06-29] MEDS ORDERED: POTASSIUM CHLORIDE ER 20 MEQ TAB.ER PO STA (09:00)
[2016-06-29] MEDS: BUDESONIDE 0.5 MG/2 ML NEBU INHALATION SCH (09:35)
[2016-06-29 09:39] VITALS: PULSE 92
[2016-06-29] MEDS: DEXTROSE 10% IN WATER 1,000 ML in EMPTY BAG 1 BAG IV SCH (09:56)
[2016-06-29 10:00] LABS: Glucose,Whole Blood 64 mg/dL (75-99)
--- NOTE | 2016-06-29 10:13 | HP ---
DATE OF ADMISSION: HISTORY AND PHYSICAL AND DISCHARGE SUMMARY A 35-year-old female with known history of hypoglycemia, multiple episodes in the past. Even tried to do cosyntropin stimulation test last time. I do not have ( ) this time. Last time cosyntropin stimulation test was not done appropriately. 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 Comes in with hypoglycemic episodes again. Patient started vomiting after she was started on antibiotic for bronchitis, although patient appears to have asthmatic bronchitis without any bronchospasm for which I do not believe patient will need antibiotics. Antibiotics will be discontinued and the patient is on D10 at this point of time, that will be discontinued and patient's blood sugars has gone down as low as 40. Patient was sweating, headache and tremulous and checked her blood sugars, which were as low as 45 when she came in and when she took it at home. I will start her on Ensure Plus and get rid D10. If her blood sugars remain stable as her nausea and vomiting improved after discontinuation of antibiotic, patient will be discharged later in the day today. REVIEW OF SYSTEMS: CONSTITUTIONAL: No fever, no malaise, no fatigue. HEENT: No recent visual problems or hearing problems. Denied any sore throat. CARDIOVASCULAR: No chest pain, orthopnea, PND, no palpitations, no syncope. RESPIRATORY: Patient is complaining of cough without any sputum production. The patient denied any shortness of breath. GASTROINTESTINAL: No diarrhea, no nausea, no vomiting, no abdominal pain. Normoactive bowel sounds. NEUROLOGICAL: No headaches, no weakness, no numbness. HEMATOLOGICAL: Denies any bleeding or petechiae. GENITOURINARY: Denies any burning micturition, frequency, or urgency. MUSCULOSKELETAL/RHEUMATOLOGICAL: Denies any joint pain, swelling, or any muscle pain. ENDOCRINE: Denies any polyuria or polydipsia. The rest of the 14 point review of systems is negative. Home medications include: 1. Levalbuterol. 2. Levothyroxine. 3. Montelukast . 4. ( ). 5. Desvenlafaxine. 6. Medroxyprogesterone. 7. Trazodone. 8. Bisacodyl. 9. Fioricet. 10. Ceftin for bronchitis. 11. Famotidine. 12. Aerospan. 13. Naproxen. 14. Xolair. 15. Patient also takes [place] for pain. ALLERGIES: Allergic to POLLEN and it was documented that patient is allergic to ALBUTEROL, I cannot verify that. PAST MEDICAL HISTORY: Significant for asthma, coronary artery disease, multiple episodes of hypoglycemia, gastroesophageal reflux disease, seizure disorder. Patient had bariatric surgery, cholecystectomy, orthopedic surgery, tonsillectomy in the past. Patient during her last hospitalization some of the fluid from the lap band was removed so that she can tolerate diet orally. Anxiety disorder. There is questionable diagnosis of bulimia. Past family history is significant for mother with pneumonia, son with brain cancer and father had liver disease. PHYSICAL EXAMINATION: VITAL SIGNS: Temperature 97.7, pulse of 99, respiratory rate of 16, blood pressure is 107/62, saturating at 100% on room air. PHYSICAL EXAMINATION: GENERAL: The patient is alert and oriented x3, not in any acute distress. Well developed, well nourished. HEENT: Pupils are round and equally reacting to light. EOMI. No scleral icterus. No conjunctival pallor. Normocephalic, atraumatic. No pharyngeal erythema. No thyromegaly. CARDIOVASCULAR: S1 and S2 present. No murmurs, rubs, or gallops. PULMONARY: Chest is clear to auscultation, no wheezing or crackles. ABDOMEN: Soft, nontender, nondistended, normoactive bowel sounds. No palpable organomegaly. MUSCULOSKELETAL: No joint swelling or deformity. EXTREMITIES: No cyanosis, clubbing, or pedal edema. NEUROLOGICAL: Gross neurological examination did not reveal any focal deficits. SKIN: No rashes. LABORATORY DATA: CBC, CMP are abnormal for low blood sugars as mentioned above. Urine has occasional bacteria, although this is a symptomatic bacteria and this is a contaminated urine sample but 6 squamous epithelial cells. ASSESSMENT AND PLAN: 1. Hypoglycemia. Management as mentioned above. If patient's blood sugars remain stable, patient will be discharged today. 2. Cough and bronchitis, appears to have asthmatic bronchitis. Patient is on inhalational steroid. Does not appear to require any systemic steroid at this point of time and patient will continue her levalbuterol. Follow up with Dr. Gonzalez as an outpatient. 3. Recent lap band surgery. 4. Gastroesophageal reflux disease. 5. Questionable history of seizure disorder. 6. Depression. 7. Seasonal allergies and asthma. Management as mentioned above. PLAN: As mentioned in the history itself. Patient will follow with Dr. Gonzalez in 3 to 7 days. Follow with Endocrinology as an outpatient. Patient will need workup for hypocortisolism and adrenal insufficiency. DISCHARGE DIET: Regular. Activity as tolerated.
[2016-06-29 11:18] LABS: Glucose,Whole Blood 104 mg/dL (75-99)
[2016-06-29] MEDS: BUTALB/APAP/CAFF 50-325-40MG TAB PO PRN (12:28)
[2016-06-29 13:54] LABS: Glucose,Whole Blood 96 mg/dL (75-99)
== END 2016-06-29 14:14 | disposition home or self-care (01) ==
LOC: EC 13:45 → 5MS5E 18:47 → INTOOBSV 18:47 → 5MS5E 20:41
PROVIDERS: ADMIT Hospitalist; ATTEND Hospitalist
DX: E11.649 Type 2 diabetes mellitus with hypoglycemia without coma (principal); K21.9 Gastro-esophageal reflux disease without esophagitis; F32.9 Major depressive disorder, single episode, unspecified; I25.10 Atherosclerotic heart disease of native coronary artery without angina pectoris; J45.909 Unspecified asthma, uncomplicated; Z79.899 Other long term (current) drug therapy; Z88.8 Allergy status to other drugs, medicaments and biological substances; Z91.048 Other nonmedicinal substance allergy status; Z98.84 Bariatric surgery status; Z79.4 Long term (current) use of insulin; Z79.51 Long term (current) use of inhaled steroids; F41.9 Anxiety disorder, unspecified; F51.4 Sleep terrors [night terrors]
CPT/HCPCS: 96361; 96374; 99285; 36415; 94640 ×2; 80048; 83605; 85025; 81001; 81025; 80299; 87502; 71020; G0378 ×2; J2405 ×2; 87324; 96376

== ENCOUNTER 2016-07-19 07:41 | Day surgery (SDC) | payer OTHER ==
[2016-07-18 11:43] VITALS: BMI 29.2
[2016-07-19 08:05] VITALS: RESP 16; TEMP 98.2
[2016-07-19] MEDS ORDERED: LACTATED RINGERS 1,000 ML IV ONE (08:05)
[2016-07-19] MEDS ORDERED: LIDOCAINE 1% 20 ML VIAL (10MG/ML) FOR IV START SQ ONE (08:06)
[2016-07-19] MEDS ORDERED: ONDANSETRON 4 MG/2 ML VIAL IVP STA (08:13)
[2016-07-19] MEDS ORDERED: LACTATED RINGERS 1,000 ML IV SCH (08:15)
[2016-07-19] MEDS ORDERED: fentaNYL (PF) 50 MCG/ML 2 ML AMP ONE (09:00)
[2016-07-19] MEDS ORDERED: MIDAZOLAM 2 MG/2 ML VIAL ONE (09:00)
[2016-07-19] MEDS ORDERED: IOHEXOL 180 MG/ML 1 ML ML ONE (09:00)
[2016-07-19] MEDS ORDERED: BUPIVACAINE (PF) 0.5% 30 ML VIAL ONE (09:00)
[2016-07-19] MEDS ORDERED: TRIAMCINOLONE ACETONIDE 40 MG/ML 1 ML VIAL ONE (09:00)
[2016-07-19] MEDS ORDERED: IV FLUID CONTINUATION 1,000 ML IV ONE (09:19)
[2016-07-19 09:38] VITALS: BP 105/74; PULSE 71
--- NOTE | 2016-07-19 09:44 | FL ---
Fluoroscopy HISTORY: Pain 6 seconds fluoroscopy time supplied to the referring clinician. 1 intraoperative C-arm images docume nt the procedure. See dictated report from anesthesia.
--- NOTE | 2016-07-19 11:53 | P.PCN ---
Date of Procedure: 07/19/16 Surgeon: Dragan Cline Pathology: none sent Condition: stable Disposition: PACU Description of Procedure: PREOPERATIVE DIAGNOSIS: 1-Bilateral sacroiliitis. 2-Lumbar DDD 3-Myofascial pain syndrome POSTOPERATIVE DIAGNOSIS:. 1-Bilateral sacroiliitis. 2-Lumbar DDD 3-Myofascial pain syndrome PROCEDURES: 1. Left Sacroiliac joint steroid injection with fluoroscopic guidance 2. Right cervical paraspinal, trapezius, and thoracic paraspinal trigger point injections x 6 ANESTHESIA: MAC EBL: Minimal. PROCEDURE INDICATIONS: This patient with a history of low back pain secondary to sacroiliitis and lumbar DDD unresponsive to conservative management, and history of neck pain secondary to severe muscle spasms, trigger points, and facet arthropathy. Patient presents for left SIJ injection under fluoroscopy and right cervical TPI. No use of blood thinners. PROCEDURE DESCRIPTION: The patient was seen and identified in the preoperative area. Risks, benefits, complications, and alternatives were discussed with the patient (including but not limited to incomplete pain relief, bleeding, infection, nerve damage, and allergies to medications), the patient agreed to proceed with the procedure and signed the consent after all questions were answered. Patient was taken to the OR and time out was completed to verify proper patient , position, laterality of pain, and allergies. Pt was placed in the prone position and a pillow was placed under the abdomen to reduce lumbar lordosis. The lumbosacral area was prepped and draped in the usual sterile fashion. Critical pause was taken. Vital signs were closely monitored during the procedure. The fluoroscopic camera was placed in contralateral oblique view and right sacroiliiac joint lower pole was identified. After local infiltration with 1% lidocaine 2 ml, Subsequently, a 22-gauge 3.5 inch spinal needle was introduced into the posteroinferior aspect of the right sacroiliac joint under direct fluoroscopic visualization. Subsequently, 4 ml of a solution of a total of 10 ml solution containing total 8 mL of 0.5% preservative-free bupivicaine mixed with 80 mg of Kenalog was injected after negative aspiration for CSF, blood, and air and negative for paresthesia. Needle was withdrawn intact and the C-arm was removed from the field. Attention was then turned to the trigger points. Each of the six previously marked areas in the cervical paraspinal, trapezius, and thoracic paraspinal muscles was then infiltrated with 1% plain lidocaine using a 25g needle. After this, each point was entered with the same 25g needle and after a catch was felt, dry needling was performed. After negative aspiration at each point, 1 ml of the remaining 6 ml of the previously described solution was injected at each area. Needle was withdrawn intact each time; at the end of the procedure, skin was cleansed, and bandages were applied in the cervical, shoulder, and low back. COMPLICATIONS: None. COMMENTS: DISPOSITION / PLANS: The patient was placed in a supine position and transferred to the recovery area in a stable condition for observation and was discharged from the recovery room after meeting discharge criteria. Home discharge instructions given to the patient by the staff. The patient was reexamined prior to discharge and there were no issues. The patient will schedule a follow up in clinic in 4-6 weeks.
[2016-07-23 08:30] LABS: Glucose,Whole Blood 91 mg/dL (75-99)
== END 2016-07-19 09:49 | disposition home or self-care (01) ==
LOC: ORPAIN 07:41
PROVIDERS: ATTEND Anesthesiology
DX: G89.29 Other chronic pain (principal); M54.5 Low back pain; M46.1 Sacroiliitis, not elsewhere classified; M51.36 Other intervertebral disc degeneration, lumbar region; M79.1 Myalgia; M46.92 Unspecified inflammatory spondylopathy, cervical region; Z88.8 Allergy status to other drugs, medicaments and biological substances; Z91.09 Other allergy status, other than to drugs and biological substances
CPT/HCPCS: 81025; 20553; J2250; J3301; Q9965; J2405; J3010; G0260; 27096

== ENCOUNTER → 2016-08-14 | Outpatient (CLI) | payer OTHER ==
[2016-08-14 14:21] VITALS: BP 125/80; PULSE 91; RESP 16
--- NOTE | 2016-08-14 14:53 | P.PN ---
Subjective This is follow-up visit for this patient with a history of severe and chronic low back pain secondary to lumbar degenerative disc disease lumbar facet arthropathy, and left sacroiliitis we have done interventional pain management injection, radiofrequency ablation on the Medial branch lumbar area, and later on we did a left sacroiliac joint steroid injections, currently she is complaining of severe low back pain Mainly on the right side ,with radiation to the right buttock area, she had no motor or sensory deficits and she is currently on pain medication 1-Clark 7.5/325 every 6 hours 2-Lyrica 50 mg every 8 hours Patient denies any side effects of the medication, denies excessive drowsiness or sleepiness, denies suicidal ideation, and reports that the current pain medication is NOT helping To control the pain and improve activity of daily living Physical Examinations : 1-Constitutiona : Cooperative , not in acute distress . 2-HEENT : nech ; supple , no Lymphadenopathy , no Thyromegaly , normal thyroid size . eyes : no ptosis , no icterus, no photophobia . ENT : normal of hearing , normal oropharynx , no Thrush . 3- Respiratory : Chest clear to auscultations Bilaterally , no wheezing , no Rhonchi . 4- Cardiovascular : regular rate and rhythem , S1 , S2 , no S3 , no S4. 5- Gastrointestinal : abdomen soft no tenderness , bowel sounds positive all four quadrents , no organomegally . 6- Genitourinary : Defferred . 7- neurologic : Cranial nerve II to XII intact , no focal neurological deffecit . 8-psychatric : alert , oriented X 3 , appropriate affect , intact judgment and insight . 9-Lymphatic : no Lymphadenopathy . 10- musculoskeltal : exams of the cervical spine = motor strength normal bilateral upper extremities exams of the Lumber spine = motor strength lower extremities ,thigh and legs .5/5 deep tendon reflexes : normal Knee Jerk , normal ankle Jerk . lumber facet Loading Test negative bilaterally strait leg raising test negative bilaterally Fabere test negative bilaterally Range of motion: Range of motion in flexion of the lumbar spine 60 degrees Range of motion range of motion of extension of the lumbar spine 30 Sever tenderness over the Sacroiliac joint on the right side only Assessment and plan = - Chronic low back pain secondary to lumbar degenerative disc disease , lumbar spondylosis with facet arthropathy without myelopathy , Sacroiliitis on the left side , improved after the left sacroiliac joint steroid injection, currently she is having right sacroiliitis - chronic and current use of high-risk medication (Opioids). The patient was counseled about risk of opioid use, psychological risk associated with opioids and was orally counseled to not overuse , divert,or sell dictations to take medications as prescribed only , and to restore medication in safe location , and the patient counseled against driving while using narcotic medications, and also not to use alcohol or any illicit recreational drugs, the patient's verbalized understanding that the lack of compliance will result in failure to renew narcotic prescription and possible discharge from the clinic - diagnoses, prognosis, and treatment options including but not limited to physical therapy, surgical interventions, interventional therapies , and medication management including narcotics and adjuvant medication were discussed with the patient and all The questions answered -medication management =1-refill Lyrica 50 mg 3 times a day dispense 90 with 1 refill, 2-Clark 7.5/325 every 6 hours dispense 120 with one refill -procedure= scaled patient to have right sacroiliac joint steroid injections under fluoroscopy guidance Objective - Vital Signs Vital signs: Vital Signs Temp Pulse 91 08/14/16 14:13 Resp 16 08/14/16 14:13 BP 125/80 08/14/16 14:13 Pulse Ox 100 08/14/16 14:13 Intake & Output 08/13/16 08/14/16 08/14/16 18:59 06:59 18:59 Weight 74.843 kg
== END ==
LOC: PNWHC3 13:50
PROVIDERS: ATTEND Specialist
DX: M51.36 Other intervertebral disc degeneration, lumbar region (principal); M47.816 Spondylosis without myelopathy or radiculopathy, lumbar region; M46.86 Other specified inflammatory spondylopathies, lumbar region; M53.3 Sacrococcygeal disorders, not elsewhere classified; G89.29 Other chronic pain; Z79.891 Long term (current) use of opiate analgesic
CPT/HCPCS: 99211

== ENCOUNTER 2016-09-12 11:40 | Emergency (ER) | payer OTHER ==
[2016-09-12 11:56] VITALS: RESP 18
[2016-09-12] MEDS ORDERED: SODIUM CHLORIDE 0.9% 1,000 ML IV STA (12:06)
[2016-09-12] MEDS ORDERED: RX INFO: IV CONTRAST WAS GIVEN 1 EACH MISC MISCELLANE PRN (12:06)
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
[2016-09-12 13:16] LABS: Basophils # (A) 0.1 k/uL (0-0.2); Basophils % (A) 1 %; CH 35.4; CHCM 35.7; Eosinophils # (A) 0.1 k/uL (0-0.7); Eosinophils % (A) 1 %; HCT 40.9 % (34.0-46.0); HDW 2.75; HGB 13.8 gm/dL (11.4-16.0); Luc # (Auto) 0.08; Luc % (Auto) 1; Lymphocytes # (A) 1.8 k/uL (1.0-4.8); Lymphocytes % (A) 24 %; MCH 33.7 pg (25.0-35.0); MCHC 33.8 g/dL (31.0-37.0); MCV 99.5 fL (80.0-100.0); Mean Platelet Volume 6.8; Monocytes # (A) 0.3 k/uL (0-1.0); Monocytes % (A) 4 %; Neutrophils # (A) 5.1 k/uL (1.3-7.7); Neutrophils % (A) 68 %; RBC 4.11 m/uL (3.80-5.40); RDW 12.6 % (11.5-15.5); WBC 7.5 k/uL (3.8-10.6); WBC (Perox) 7.55
[2016-09-12 13:25] LABS: ALT 24 U/L (9-52); AST 21 U/L (14-36); Alkaline Phosphatase 49 U/L (38-126); Amylase 82 U/L (30-110); Anion Gap 10 mmol/L; Blood Urea Nitrogen 13 mg/dL (7-17); Calcium 9.4 mg/dL (8.4-10.2); Carbon Dioxide 25 mmol/L (22-30); Chloride 109 mmol/L (98-107); Glucose 62 mg/dL (74-99); Non-African American GFR(MDRD) >60 (>60 ml/min/1.73 sqM); Potassium 3.3 mmol/L (3.5-5.1); Sodium 144 mmol/L (137-145); Total Bilirubin 0.6 mg/dL (0.2-1.3); Total Protein 6.8 g/dL (6.3-8.2)
[2016-09-12 13:27] LABS: Glucose,Whole Blood 65 mg/dL (75-99)
[2016-09-12] MEDS ORDERED: DEXTROSE 50%-WATER 50 ML SYRINGE IVP STA (13:29)
[2016-09-12 13:32] LABS: Appearance,Urine Clear (Clear); Bilirubin,Urine Negative (Negative); Glucose,Urine (UA) Negative (Negative); Ketones,Urine Negative (Negative); Nitrite,Urine Negative (Negative); PH, Urine 5.5 (5.0-8.0); Protein,Urine Negative (Negative); Specific Gravity,Urine 1.018 (1.001-1.035); Urobilinogen,Urine <2.0 mg/dL (<2.0)
[2016-09-12 13:33] LABS: Leukocyte Esterase,Urine Negative (Negative); Mucus,Urine Rare /hpf; Particle Count 4406; RBC,Urine 65 /hpf (0-5); Squamous Epithelial Cell,Urine 2 /hpf (0-4); UA Billing (MACRO vs. MICRO) MICRO; WBC,Urine 1 /hpf (0-5)
[2016-09-12] MEDS ORDERED: MORPHINE SULFATE 4 MG/ML SYRINGE IVP STA (13:53)
[2016-09-12] MEDS ORDERED: ONDANSETRON 4 MG/2 ML VIAL IVP STA (14:24)
--- NOTE | 2016-09-12 14:41 | CT ---
EXAMINATION TYPE: CT abdomen pelvis w con DATE OF EXAM: 09/12/2016 2:24 PM HISTORY: right sided abdominal pain, hematuria CT DLP: 1393mGycm Automated Exposure Control for Dose Reduction was Utilized. CONTRAST: CT scan of the abdomen and pelvis is performed without oral but with IV Contrast, patient injected wi th 100 mL of Omnipaque 300. COMPARISON: CT abdomen and pelvis February 03, 2016. FINDINGS: LUNG BASES: No significant abnormality is appreciated. LIVER/GB: Cholecystectomy clips are redemonstrated. PANCREAS: No significant abnormality is seen. SPLEEN: No significant abnormality is seen. ADRENALS: No significant abnormality is seen. KIDNEYS: There is stable 3 mm nonobstructing calculus lower pole level right kidney on axial image 29 . There is symmetric cortical medullary uptake and excretion from both kidneys without evidence of hy dronephrosis bilaterally. BOWEL: Evaluation bowel is suboptimal secondary to lack of enteric contrast. Lap band device in posit ion and is stable just below diaphragm and the epigastric region. There is no suspicious small or lar ge bowel dilatation. Normal-appearing appendix is seen from cecum. Moderate fecal material is somewha t prominent in the transverse and left colon. UTERUS/ADNEXA: Uterus is heterogeneous appearance inferiorly lobulated in contour, underlying fibroid s are suspected, this can be correlated or confirmed with pelvic ultrasound if desired. LYMPH NODES: No greater than 1cm abdominal or pelvic lymph nodes are appreciated. OSSEOUS STRUCTURES: Some multilevel spurring in the spine is present most prominent anterior superior L4 endplate. OTHER: No significant additional abnormality is seen. IMPRESSION: Stable 3 mm nonobstructing calculus lower pole level right kidney not identified on prior report.
[2016-09-12 14:56] LABS: Glucose,Whole Blood 83 mg/dL (75-99)
[2016-09-12 14:57] VITALS: BP 126/72; PULSE 88; TEMP 99.6
== END 2016-09-12 15:02 | disposition home or self-care (01) ==
LOC: EC 11:40
DX: N20.0 Calculus of kidney (principal); R50.9 Fever, unspecified; K21.9 Gastro-esophageal reflux disease without esophagitis; J45.909 Unspecified asthma, uncomplicated; F32.9 Major depressive disorder, single episode, unspecified; Z79.51 Long term (current) use of inhaled steroids; Z79.899 Other long term (current) drug therapy; Z88.8 Allergy status to other drugs, medicaments and biological substances; Z91.09 Other allergy status, other than to drugs and biological substances
CPT/HCPCS: 36415; 80053; 82150; 83690; 85025; 81001; 81025; 74177; 99284; 96374; 96375 ×2; 96361 ×2; J2270; J2405; Q9967

== ENCOUNTER 2016-09-13 19:31 | Emergency (ER) | payer OTHER ==
[2016-09-13 19:37] VITALS: RESP 18
[2016-09-13 19:37] LABS: Glucose,Whole Blood 52 mg/dL (75-99)
[2016-09-13] MEDS ORDERED: DEXTROSE 50%-WATER 50 ML SYRINGE IVP STA (19:49)
[2016-09-13] MEDS ORDERED: MORPHINE SULFATE 4 MG/ML SYRINGE IVP STA (19:50)
[2016-09-13] MEDS ORDERED: ONDANSETRON 4 MG/2 ML VIAL IVP STA (19:50)
[2016-09-13] MEDS ORDERED: SODIUM CHLORIDE 0.9% 500 ML IV ONE (19:51)
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
[2016-09-13 20:19] LABS: Basophils # (A) 0.1 k/uL (0-0.2); Basophils % (A) 1 %; CH 35.2; Eosinophils # (A) 0.2 k/uL (0-0.7); Eosinophils % (A) 3 %; HDW 2.77; HGB 14.1 gm/dL (11.4-16.0); Luc # (Auto) 0.15; Luc % (Auto) 2; Lymphocytes # (A) 2.4 k/uL (1.0-4.8); Lymphocytes % (A) 31 %; MCH 33.8 pg (25.0-35.0); MCHC 34.4 g/dL (31.0-37.0); MCV 98.2 fL (80.0-100.0); Mean Platelet Volume 6.6; Monocytes # (A) 0.3 k/uL (0-1.0); Monocytes % (A) 4 %; Neutrophils # (A) 4.6 k/uL (1.3-7.7); Neutrophils % (A) 60 %; RBC 4.17 m/uL (3.80-5.40); RDW 12.5 % (11.5-15.5); WBC 7.6 k/uL (3.8-10.6); WBC (Perox) 7.54
[2016-09-13 20:26] LABS: ALT 24 U/L (9-52); AST 21 U/L (14-36); Alkaline Phosphatase 54 U/L (38-126); Anion Gap 10 mmol/L; Blood Urea Nitrogen 11 mg/dL (7-17); Calcium 9.5 mg/dL (8.4-10.2); Carbon Dioxide 25 mmol/L (22-30); Chloride 106 mmol/L (98-107); Glucose 67 mg/dL (74-99); Non-African American GFR(MDRD) >60 (>60 ml/min/1.73 sqM); Potassium 3.7 mmol/L (3.5-5.1); Sodium 141 mmol/L (137-145); Total Bilirubin 0.6 mg/dL (0.2-1.3)
[2016-09-13 21:16] LABS: Glucose,Whole Blood 55 mg/dL (75-99)
[2016-09-13 22:35] LABS: Glucose,Whole Blood 79 mg/dL (75-99)
[2016-09-13] MEDS ORDERED: ONDANSETRON 4 MG ODT STARTER PACK 2 TAB BTL PO STA (22:39)
[2016-09-13 22:51] VITALS: BP 121/65; PULSE 84; TEMP 99.2
== END 2016-09-13 22:51 | disposition home or self-care (01) ==
LOC: EC 19:31
DX: E11.649 Type 2 diabetes mellitus with hypoglycemia without coma (principal); R10.9 Unspecified abdominal pain; J45.909 Unspecified asthma, uncomplicated; F32.9 Major depressive disorder, single episode, unspecified; Z90.49 Acquired absence of other specified parts of digestive tract; Z98.84 Bariatric surgery status; Z87.442 Personal history of urinary calculi; Z91.09 Other allergy status, other than to drugs and biological substances; Z91.048 Other nonmedicinal substance allergy status; Z88.8 Allergy status to other drugs, medicaments and biological substances; Z79.899 Other long term (current) drug therapy
CPT/HCPCS: 99284; 96374; 96375 ×2; 96361; 36415; 80053; 85025; J2270; J2405; S0119

== ENCOUNTER 2016-09-25 09:03 | Day surgery (SDC) | payer OTHER ==
[2016-09-24 10:47] VITALS: BMI 29.2
[2016-09-25 09:18] VITALS: RESP 16; TEMP 98
[2016-09-25 09:37] LABS: Glucose,Whole Blood 109 mg/dL (75-99)
[2016-09-25] MEDS ORDERED: LIDOCAINE 1% 20 ML VIAL (10MG/ML) FOR IV START INTRADERMA ONE (09:38)
[2016-09-25] MEDS ORDERED: ONDANSETRON 4 MG/2 ML VIAL IVP ONE (09:38)
[2016-09-25] MEDS ORDERED: IOHEXOL 180 MG/ML 1 ML ML ONE (09:41)
[2016-09-25] MEDS ORDERED: BUPIVACAINE (PF) 0.25% 30 ML VIAL ONE (09:41)
[2016-09-25] MEDS ORDERED: TRIAMCINOLONE ACETONIDE 40 MG/ML 1 ML VIAL ONE (09:41)
[2016-09-25] MEDS ORDERED: MIDAZOLAM 2 MG/2 ML VIAL ONE (09:41)
[2016-09-25] MEDS ORDERED: fentaNYL (PF) 50 MCG/ML 2 ML AMP ONE (09:41)
--- NOTE | 2016-09-25 09:51 | P.PCN ---
Date of Procedure: 09/25/16 Surgeon: Dragan Cline Pathology: none sent Condition: stable Disposition: PACU Description of Procedure: PREOPERATIVE DIAGNOSIS: 1-Bilateral sacroiliitis. 2 Lumbar DDD POSTOPERATIVE DIAGNOSIS:. 1-Bilateral sacroiliitis. 2 Lumbar DDD PROCEDURES: RIGHT Sacroiliac joint steroid injection with fluoroscopic guidance ANESTHESIA: MAC EBL: Minimal. PROCEDURE INDICATIONS: This patient with a history of low back pain secondary to sacroiliitis and lumbar DDD unresponsive to conservative management. PROCEDURE DESCRIPTION: The patient was seen and identified in the preoperative area. Risks, benefits, complications, and alternatives were discussed with the patient (including but not limited to incomplete pain relief, bleeding, infection, nerve damage, and allergies to medications), the patient agreed to proceed with the procedure and signed the consent after all questions were answered. Patient was taken to the OR and time out was completed to verify proper patient , position, laterality of pain, and allergies. Pt was placed in the prone position and a pillow was placed under the abdomen to reduce lumbar lordosis. The lumbosacral area was prepped and draped in the usual sterile fashion. Critical pause was taken. Vital signs were closely monitored during the procedure. The fluoroscopic camera was placed in contralateral oblique view and right sacroiliiac joint lower pole was identified. After local infiltration with 1% lidocaine 2 ml, Subsequently, a 22-gauge 3.5 inch spinal needle was introduced into the posteroinferior aspect of the right sacroiliac joint under direct fluoroscopic visualization. Subsequently, 4 ml of a solution of a total of 4 ml solution containing total 3 mL of 0.5% preservative-free bupivicaine mixed with 40 mg of Kenalog was injected after negative aspiration for CSF, blood, and air and negative for paresthesia. Needle was withdrawn intact. Skin was cleansed, and bandages were applied. COMPLICATIONS: None. COMMENTS: DISPOSITION / PLANS: The patient was placed in a supine position and transferred to the recovery area in a stable condition for observation and was discharged from the recovery room after meeting discharge criteria. Home discharge instructions given to the patient by the staff. The patient was reexamined prior to discharge. The patient will schedule a follow up in clinic in 2-4 weeks.
[2016-09-25] MEDS ORDERED: IV FLUID CONTINUATION 1,000 ML IV ONE (10:00)
[2016-09-25 10:17] VITALS: BP 119/75; PULSE 110
--- NOTE | 2016-09-25 13:15 | FL ---
Fluoroscopy HISTORY: Pain 4 seconds fluoroscopy time supplied to the referring clinician. 2 intraoperative C-arm images docume nt the procedure. See dictated report from anesthesia.
--- NOTE | 2016-09-27 09:32 | CDI ---
Dear Dr. Cline, The Procedure note documents MAC (Monitored Anesthesia Care). On the Pain Procedure Record, however, Moderate Sedation is checked under Anesthesia Plan. This is conflicting documentation that needs clarification for proper reporting purposes. Please clarify if the sedation provided Steve Delgado was MAC (Monitored Anesthesia Care or Moderate Sedation. PLEASE DOCUMENT THIS CLARIFICATION AN ADDENDUM TO THE PROCEDURE NOTE. If you have any questions regarding this query, you may contact Maggie Geronimo , Real Estate Accountant at Saturday thru Saturday between 8:00 am and 6:00 pm. Thank you for your time, Janet Reyes, [facility] Outpatient Buggy Operator Derrick MTDD
== END 2016-09-25 10:30 | disposition home or self-care (01) ==
LOC: ORPAIN 09:03
PROVIDERS: ATTEND Anesthesiology
DX: G89.29 Other chronic pain (principal); M54.5 Low back pain; M46.1 Sacroiliitis, not elsewhere classified; M51.36 Other intervertebral disc degeneration, lumbar region; Z88.8 Allergy status to other drugs, medicaments and biological substances; Z91.09 Other allergy status, other than to drugs and biological substances
CPT/HCPCS: 81025; J2250; J3301; Q9965; J2405; J3010; G0260; 27096

== ENCOUNTER 2016-10-02 16:19 | Observation (INO) | payer OTHER ==
[2016-10-02] MEDS ORDERED: HYDROmorphone 1 MG/ML 1 ML SYRINGE IVP STA (16:46)
[2016-10-02] MEDS ORDERED: SODIUM CHLORIDE 0.9% 1,000 ML IV ONE (16:46)
[2016-10-02] MEDS ORDERED: ONDANSETRON 4 MG/2 ML VIAL IVP STA (16:46)
[2016-10-02] MEDS ORDERED: DEXTROSE 5%-0.45% NACL 1,000 ML IV ONE (16:47)
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
[2016-10-02 17:19] LABS: Basophils % (A) 0 %; CH 35.5; CHCM 37.8; Eosinophils % (A) 0 %; HCT 42.7 % (34.0-46.0); HDW 2.97; HGB 15.4 gm/dL (11.4-16.0); Hyperchromasia Slight; Luc # (Auto) 0.13; Luc % (Auto) 2; Lymphocytes # (A) 1.8 k/uL (1.0-4.8); Lymphocytes % (A) 25 %; MCH 34.1 pg (25.0-35.0); MCHC 36.1 g/dL (31.0-37.0); MCV 94.3 fL (80.0-100.0); Mean Platelet Volume 6.3; Monocytes # (A) 0.5 k/uL (0-1.0); Monocytes % (A) 7 %; Neutrophils # (A) 4.8 k/uL (1.3-7.7); Neutrophils % (A) 66 %; RBC 4.52 m/uL (3.80-5.40); RDW 11.8 % (11.5-15.5); WBC 7.3 k/uL (3.8-10.6); WBC (Perox) 7.16
[2016-10-02 17:22] LABS: ALT 20 U/L (9-52); AST 16 U/L (14-36); Alkaline Phosphatase 50 U/L (38-126); Anion Gap 11 mmol/L; Blood Urea Nitrogen 22 mg/dL (7-17); Calcium 10.1 mg/dL (8.4-10.2); Carbon Dioxide 26 mmol/L (22-30); Chloride 106 mmol/L (98-107); Glucose 56 mg/dL (74-99); Non-African American GFR(MDRD) 50 (>60 ml/min/1.73 sqM); Potassium 3.9 mmol/L (3.5-5.1); Sodium 143 mmol/L (137-145); Total Bilirubin 0.7 mg/dL (0.2-1.3); Total Protein 7.8 g/dL (6.3-8.2)
[2016-10-02 17:30] LABS: Appearance,Urine Cloudy (Clear); Bacteria,Urine Moderate /hpf; Bilirubin,Urine Negative (Negative); Glucose,Urine (UA) Negative (Negative); Ketones,Urine Trace (Negative); Leukocyte Esterase,Urine Small (Negative); Mucus,Urine Many /hpf; Nitrite,Urine Negative (Negative); PH, Urine 5.5 (5.0-8.0); Particle Count 22722; Protein,Urine 1+ (Negative); RBC,Urine >182 /hpf (0-5); Specific Gravity,Urine 1.031 (1.001-1.035); Squamous Epithelial Cell,Urine 13 /hpf (0-4); UA Billing (MACRO vs. MICRO) MICRO; Urobilinogen,Urine <2.0 mg/dL (<2.0); WBC,Urine 23 /hpf (0-5)
--- NOTE | 2016-10-02 17:58 | CT ---
EXAMINATION TYPE: CT abdomen pelvis wo con DATE OF EXAM: 10/02/2016 5:47 PM COMPARISON: 09/12/2016 HISTORY: Right flank pain x today. History of stones. CT DLP: 429.40 mGycm Automated exposure control for dose reduction was used. TECHNIQUE: Helical acquisition of images was performed from the lung bases through the pelvis. FINDINGS: The lung bases are clear. There is a sleeve around the gastric fundus at the gastroesophageal junctio n. Liver shows no focal defect. Bile ducts are not dilated. There are clips from cholecystectomy. Spl een appears normal. There is no pancreatic mass. There is no adrenal mass. Kidneys have normal size and contour. There is no hydronephrosis. There is a 5 mm calcification in the lower pole right kidney. There is no retroperitoneal adenopathy. I see no intestinal wall thickening. There are no dilated loops. Bladder distends smoothly. There is no pelvi c mass. Appendix appears normal. There is no ascites. I see no bony destructive process. Uterus is re troverted. IMPRESSION: BARIATRIC SURGERY. NONOBSTRUCTING RIGHT RENAL CALCULUS. NO SIGN OF ACUTE ABDOMEN AND PELVIS. NO ADVER SE CHANGE COMPARED TO OLD EXAM. NORMAL APPENDIX. THERE IS PROBABLY A SMALL HIATAL HERNIA.
[2016-10-02 18:24] LABS: Glucose,Whole Blood 104 mg/dL (75-99)
[2016-10-02] MEDS ORDERED: KETOROLAC 30 MG/ML 1 ML VIAL IVP STA (18:26)
[2016-10-02 19:00] LABS: Glucose,Whole Blood 50 mg/dL (75-99)
[2016-10-02] MEDS ORDERED: NALOXONE 0.4 MG/ML 1 ML VIAL IV PRN (19:25)
[2016-10-02] MEDS ORDERED: ONDANSETRON 4 MG/2 ML VIAL IVP PRN (19:25)
[2016-10-02] MEDS: KETOROLAC 30 MG/ML 1 ML VIAL IVP PRN (21:55)
[2016-10-02 22:35] VITALS: BMI 30.2
[2016-10-02] MEDS: PREGABALIN 50 MG CAP PO SCH (23:58)
[2016-10-03] MEDS: KETOROLAC 30 MG/ML 1 ML VIAL IVP PRN (04:35)
[2016-10-03] MEDS ORDERED: LEVOTHYROXINE 137 MCG TAB PO SCH (06:30)
[2016-10-03] MEDS: PREGABALIN 50 MG CAP PO SCH (08:12)
[2016-10-03] MEDS ORDERED: DESVENLAFAXINE SUCCINATE 50 MG TAB.ER.24H PO SCH (09:00)
[2016-10-03] MEDS ORDERED: ARIPiprazole 5 MG TAB PO SCH (09:00)
[2016-10-03] MEDS ORDERED: HYDROcodone/APAP 7.5-325MG 1 EACH TAB PO PRN (10:57)
[2016-10-03 14:23] VITALS: BP 126/78; PULSE 72; RESP 15; TEMP 98.5
--- NOTE | 2016-10-03 15:28 | HP ---
DATE OF ADMISSION: 10/02/2016 PRESENTING COMPLAINT: Right abdominal pain. HISTORY OF PRESENTING COMPLAINT: This is a very pleasant 35-year-old patient well known to me from multiple previous admissions. Patient's chronic stable medical conditions include hypothyroid, depression, GERD, also got bulimia. Patient has been having episodes of hypoglycemia in the past. Patient has a right renal stone and is due to see Dr. Vanessa from Urology tomorrow. Patient for 2 weeks has been off and on pain in the right flank, became rather severe yesterday with nausea, vomiting, severe pain, hence she got to be admitted, was unable to keep her food down, and her sugar did drop down, even as far as down to 56 and she had to be admitted. REVIEW OF SYSTEMS: CONSTITUTIONAL: Tired. HEENT: None. RESPIRATORY: None. CARDIOVASCULAR: None. GASTROINTESTINAL: None. GENITOURINARY: As above. MUSCULOSKELETAL: Chronic low back pain. DERMATOLOGICAL: None. HEMATOLOGIC: None. LYMPHATICS: None. PSYCHIATRY: Depression. NEUROLOGICAL: None. Past medical history of asthma, hypothyroid, depression, herniated disc in the lower back, peptic ulcer disease, bulimia, hypothyroid, right kidney stone. PAST SURGICAL HISTORY: Bariatric surgery, orthopedic surgery, multiple pain procedures, lap alcon, tonsillectomy. SOCIAL HISTORY: Patient lost her son to brain cancer, lost her mother and father to liver cancer. Has 2 daughters, lives at home. ( ) No smoking, alcohol. FAMILY HISTORY: As above. Allergies to ALBUTEROL, GRASS and POLLEN. HOME MEDICATIONS: 1. Desyrel 50 to 100 mg p.o. q.h.s. p.r.n. 2. Prednisone 10 mg daily p.r.n. 3. Lyrica 1 tablet p.o. t.i.d. 4. Zofran 4 mg p.o. q.8 p.r.n. 5. Xolair 300 mg subQ every 30 days. 6. Naproxen 500 mg p.o. q.12 p.r.n. 7. Singulair 10 mg p.o. q.h.s. 8. Depo-Provera 150 mg IM q. 90 days. 9. Synthroid 137 mcg p.o. daily. 10. Xopenex q.i.d. p.r.n. 11. Xopenex HFA 2 puffs q.6 p.r.n. 12. [place] 7.5 one tablet p.o. q.6 p.r.n. 13. Aerospan 2 puffs b.i.d. 14. Pepcid 20 mg p.o. b.i.d. 15. Pristiq 100 mg p.o. daily. 16. Fioricet 1 tablet q.6 p.r.n. 17. Dulcolax 5 mg p.o. daily p.r.n. 18. Abilify 5 mg p.o. daily. On examination, vital signs on presentation: Temperature 96.9, pulse 108, respirations 18, blood pressure 120/67, pulse ox 98% on room air. GENERAL APPEARANCE: Average build. Sitting up, not in distress. EYES: Pupils equal, conjunctivae normal. HEENT: Oral cavity normal. NECK: JVD not raised. Mass not palpable. Respiratory effort normal. LUNGS: Fair air entry. CARDIOVASCULAR: First and second sounds normal. No edema. ABDOMEN: Some right flank tenderness. No guarding or rigidity. Liver and spleen not palpable. LYMPHATIC: No lymph node palpable in neck or axillae. PSYCHIATRY: Alert and oriented x3. Mood and affect was normal. NEUROLOGICAL: Pupils equal. Cranial nerves grossly intact. Power and sensation grossly intact. INVESTIGATIONS: White count 7.3, hemoglobin 15.4, potassium 3.9. BUN 22, creatinine 1.22, glucose 56. UA showing some blood, small amount of leukocyte esterase. CT scan of the abdomen and pelvis shows nonobstructive right renal calculus. ASSESSMENT: 1. Right renal calculus, symptomatic with no obvious obstructive features causing nausea, vomiting, severe pain in a patient who unable to keep any food down, dropping to hypoglycemia for which patient needs to be admitted. 2. Moderate persistent asthma, stable. 3. Chronic lumbar herniated disc. 4. Hypothyroidism, chronic. 5. Depression, not otherwise specified. 6. Gastroesophageal reflux disease. 7. Chronic bulimia, controlled. 8. Dehydration, acute secondary to nausea, vomiting. Not able to keep food down. PLAN: Patient did tolerate some breakfast this morning. Will give pain medications and antinausea medications to make sure patient sugars do not drop. Patient is quite prone to dropping and becoming hypoglycemic and often times ( ). Will see how the patient does for the same. Care was discussed with the patient. Home medications will be resumed. Lovenox for DVT prophylaxis. Pain control.
--- NOTE | 2016-10-04 19:37 | DS ---
DATE OF ADMISSION: 10/02/2016 DATE OF DISCHARGE: 10/03/2016 FINAL DIAGNOSES: 1. Right-sided abdominal pain secondary to kidney stone, non-obstructive, causing severe pain. 2. Hypoglycemia, present on admission, from decreased oral intake. 3. Moderate persistent asthma, chronic, stable. 4. Chronic lumbar herniated disc. 5. Hypothyroidism. 6. Depression not otherwise specified. 7. Gastroesophageal reflux disease. 8. Chronic bulimia, controlled. 9. Dehydration, acute, severe, with nausea and vomiting, present on admission. HOSPITAL COURSE: This patient presented with severe abdominal pain from right renal stone. Patient is due to see Dr. Vanessa as an outpatient. Could not control the patient's nausea and vomiting and that led to severe hypoglycemia; hence patient had to be admitted. Patient doing much better at the time of discharge. Tolerating a diet. Sugar has come up. Care was discussed in detail with the patient. On examination, abdomen is soft, nontender. DISCHARGE MEDICATIONS: 1. Xopenex q.i.d. p.r.n. 2. Singulair 10 mg p.o. at bedtime. 3. Xopenex HFA 2 puffs q.6 p.r.n. 4. Abilify 5 mg p.o. daily. 5. Pristiq 100 mg p.o. daily. 6. Depo-Provera 150 mg IM q.90. 7. Desyrel 50/100 p.o. at bedtime p.r.n. 8. Dulcolax 5 mg p.o. daily p.r.n. 9. Fioricet 1 tablet q.6 p.r.n. 10. Aerospan 2 puffs b.i.d. 11. Naproxen 500 mg p.o. q.12 p.r.n. 12. Xolair 300 mg subcutaneously q.30 days. 13. Zofran 4 mg q.8 p.r.n. 14. Synthroid 137 mcg p.o. daily. 15. [place] 7.5 one tablet q.6 p.r.n. 16. Lyrica 1 tablet p.o. t.i.d. 17. Pepcid 20 mg p.o. b.i.d. 18. Prednisone p.r.n. as before. Follow up with Dr. Gonzalez on October 12, 2016. Follow up with Dr. Vanessa on October 04, 2016, at 11 a.m.
== END 2016-10-03 14:51 | disposition home or self-care (01) ==
LOC: EC 16:19 → 3SUR 19:25
PROVIDERS: ADMIT Hospitalist; ATTEND Hospitalist
DX: N20.0 Calculus of kidney (principal); E11.649 Type 2 diabetes mellitus with hypoglycemia without coma; J45.40 Moderate persistent asthma, uncomplicated; M51.26 Other intervertebral disc displacement, lumbar region; E03.9 Hypothyroidism, unspecified; K21.9 Gastro-esophageal reflux disease without esophagitis; F32.9 Major depressive disorder, single episode, unspecified; F50.2 Bulimia nervosa; E86.0 Dehydration; Z79.899 Other long term (current) drug therapy; Z79.3 Long term (current) use of hormonal contraceptives; Z79.51 Long term (current) use of inhaled steroids; Z88.8 Allergy status to other drugs, medicaments and biological substances; Z91.048 Other nonmedicinal substance allergy status; J30.1 Allergic rhinitis due to pollen; Z86.14 Personal history of Methicillin resistant Staphylococcus aureus infection; G89.29 Other chronic pain; M54.9 Dorsalgia, unspecified; N12 Tubulo-interstitial nephritis, not specified as acute or chronic; Z80.0 Family history of malignant neoplasm of digestive organs; Z98.84 Bariatric surgery status; F51.4 Sleep terrors [night terrors]; F41.9 Anxiety disorder, unspecified
CPT/HCPCS: 96376 ×2; 96361; 96365; 96375; 99285; 36415; 80053; 82150; 83690; 85025; 81001; 81025; 74176; G0378 ×2; J2405; J0696; J1885 ×2; J1170

== ENCOUNTER → 2016-10-04 | Outpatient (CLI) | payer OTHER ==
--- NOTE | 2016-10-04 13:34 | XR ---
EXAMINATION TYPE: XR KUB DATE OF EXAM: 10/04/2016 1:00 PM COMPARISON: 10/02/2016 HISTORY: Right renal stone and flank pain TECHNIQUE: One view abdominal series FINDINGS: The osseous structures are intact. The bowel gas pattern is nonspecific. Lap band surgery and previo us cholecystectomy suggested. Calcification the pelvis noted. No sizable calcification overlying the kidneys although bowel content does obscure the renal outlines . IMPRESSION: 1. Nonspecific abdomen. No definite suspicious calcifications identified.
== END | disposition home or self-care (01) ==
LOC: RADXRMAIN 12:40
PROVIDERS: ATTEND Urology
DX: N20.0 Calculus of kidney (principal)
CPT/HCPCS: 74000

== ENCOUNTER → 2016-10-08 | Outpatient (CLI) | payer OTHER ==
--- NOTE | 2016-10-08 21:52 | MR ---
EXAMINATION TYPE: MR thoracic spine wo con DATE OF EXAM: 10/08/2016 9:32 PM COMPARISON: 02/27/2016 HISTORY: Mid to low back pain CONTRAST: Performed utilizing 0 mL intravenous MultiHance gadolinium contrast. TECHNIQUE: Multiplanar, multiecho imaging on a 3.0 Loli magnet is performed through the thoracic spi ne. T10-T11: There is a left paracentral disc bulge with moderate anterior thecal sac compression. This c omes in close approximation with the spinal cord. Minimal cord flattening may be present. T8-T9: There is a moderate size right paracentral disc herniation. This has moderate anterior thecal sac compression. There is cord contact. There is some superior cord flattening at this level. No AP s lisa canal stenosis is present. T7-T8: There is a moderate size left paracentral disc herniation with moderate anterior thecal sac co mpression. This has cord contact without cord deformity. No spinal canal stenosis is present. Spinal cord maintains normal signal through its visualized course. Vertebral body alignment is normal. Vertebral body heights are preserved. Disc heights are preserved. Disc desiccation is present T7-T8 and T8-T9 and T10-T11. No spinal canal stenosis is evident. Findings at the abnormal disc levels including cord flattening at T8-9 appears stable from February. IMPRESSIONS: 1. Moderate sized disc herniation in the right paracentral region causing cord flattening at T8-T9. 2. Moderate left paracentral disc bulges or herniations are present T7-8 and T10-11 in close approxim ation with the spinal cord without cord deformity. 3. Examination is stable from prior study.
== END | disposition home or self-care (01) ==
LOC: RADMRIMAIN 20:29
PROVIDERS: ATTEND Anesthesiology
DX: M51.24 Other intervertebral disc displacement, thoracic region (principal)
CPT/HCPCS: 72146

== ENCOUNTER 2016-10-09 14:23 | Inpatient (IN) | payer OTHER ==
[2016-10-09] MEDS ORDERED: DEXTROSE 50%-WATER 50 ML SYRINGE IVP STA (14:51)
[2016-10-09] MEDS ORDERED: HYDROmorphone 1 MG/ML 1 ML SYRINGE IVP STA (15:03)
[2016-10-09] MEDS: ONDANSETRON 4 MG/2 ML VIAL IVP STA ×2 (15:11→18:31)
[2016-10-09 15:22] LABS: Basophils % (A) 0 %; CH 34.7; CHCM 37.5; Eosinophils % (A) 1 %; HCT 38.9 % (34.0-46.0); HDW 3.04; Hyperchromasia Slight; Luc # (Auto) 0.12; Luc % (Auto) 2; Lymphocytes # (A) 1.9 k/uL (1.0-4.8); Lymphocytes % (A) 25 %; MCH 33.7 pg (25.0-35.0); MCHC 36.1 g/dL (31.0-37.0); MCV 93.2 fL (80.0-100.0); Mean Platelet Volume 6.5; Monocytes # (A) 0.5 k/uL (0-1.0); Monocytes % (A) 6 %; Neutrophils # (A) 5.1 k/uL (1.3-7.7); Neutrophils % (A) 66 %; RBC 4.17 m/uL (3.80-5.40); RDW 11.7 % (11.5-15.5); WBC 7.7 k/uL (3.8-10.6); WBC (Perox) 7.33
[2016-10-09 15:24] LABS: ALT 21 U/L (9-52); AST 17 U/L (14-36); Alkaline Phosphatase 46 U/L (38-126); Amylase 91 U/L (30-110); Anion Gap 12 mmol/L; Blood Urea Nitrogen 17 mg/dL (7-17); Calcium 9.1 mg/dL (8.4-10.2); Carbon Dioxide 22 mmol/L (22-30); Chloride 108 mmol/L (98-107); Glucose 149 mg/dL (74-99); Non-African American GFR(MDRD) 55 (>60 ml/min/1.73 sqM); Potassium 3.2 mmol/L (3.5-5.1); Sodium 142 mmol/L (137-145); Total Bilirubin 0.5 mg/dL (0.2-1.3); Total Protein 6.6 g/dL (6.3-8.2)
[2016-10-09 15:26] LABS: Appearance,Urine Clear (Clear); Bilirubin,Urine Negative (Negative); Glucose,Urine (UA) 4+ (Negative); Ketones,Urine Negative (Negative); Leukocyte Esterase,Urine Negative (Negative); Mucus,Urine Occasional /hpf; Nitrite,Urine Negative (Negative); Particle Count 2882; Protein,Urine Negative (Negative); RBC,Urine 36 /hpf (0-5); Specific Gravity,Urine 1.018 (1.001-1.035); Squamous Epithelial Cell,Urine 7 /hpf (0-4); UA Billing (MACRO vs. MICRO) MICRO; Urobilinogen,Urine <2.0 mg/dL (<2.0); WBC,Urine 1 /hpf (0-5)
[2016-10-09 16:00] LABS: Glucose,Whole Blood 44 mg/dL (75-99)
--- NOTE | 2016-10-09 16:07 | XR ---
EXAMINATION TYPE: XR KUB DATE OF EXAM: 10/09/2016 3:59 PM COMPARISON: 10/04/2016 HISTORY: Pain TECHNIQUE: Single supine KUB image of the abdomen is obtained FINDINGS: Gastric banding device is in place. Small bowel demonstrates no evidence for dilatation or air fluid levels. Gas and fecal material is seen in non-distended colon. No convincing evidence for pneumoperitoneum. No unusual calcifications. The lung bases are clear. The osseous structures are intact. IMPRESSION: 1. Overall nonobstructive bowel gas pattern.
--- NOTE | 2016-10-09 16:07 | XR ---
EXAMINATION TYPE: XR chest 2V DATE OF EXAM: 10/09/2016 3:58 PM COMPARISON: June 28, 2016 HISTORY: Pain TECHNIQUE: Frontal and lateral views of the chest are obtained. FINDINGS: There is no focal air space opacity, pleural effusion, or pneumothorax seen. The cardiac silhouette size is within normal limits. The osseous structures are intact. IMPRESSION: No acute cardiopulmonary process.
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
[2016-10-09 16:20] LABS: Glucose,Whole Blood 79 mg/dL (75-99)
[2016-10-09] MEDS ORDERED: SODIUM CHLORIDE 0.9% 1,000 ML IV ONE ×2 (16:23→19:36)
[2016-10-09] MEDS ORDERED: METOCLOPRAMIDE 5 MG/ML 2 ML VIAL IVP STA (16:24)
[2016-10-09] MEDS ORDERED: DEXTROSE 5%-0.9% NACL 1,000 ML IV SCH ×2 (16:30→20:00)
[2016-10-09] MEDS ORDERED: POTASSIUM CHLORIDE ORAL LIQUID 40 MEQ/30 ML CUP PO ONE (16:34)
--- NOTE | 2016-10-09 16:39 | CT ---
EXAMINATION TYPE: CT renal stones wo con DATE OF EXAM: 10/09/2016 4:31 PM COMPARISON: 10/02/2016 HISTORY: RIGHT SIDE ABDOMINAL PAIN. CT DLP: 440.2 mGycm FINDINGS: LUNG BASES: No evidence for nodule. No evidence for infiltrate. LIVER/GB: Cholecystectomy changes are placed. No space-occupying hepatic lesion. PANCREAS: No pancreatic mass identified. No inflammatory process seen. SPLEEN: No evidence for splenomegaly. No intrasplenic lesions seen. ADRENALS: No adrenal nodules identified. No evidence for thickening. KIDNEYS: No evidence for renal mass. Nonobstructing nephrolithiasis lower pole right kidney with 2 ca lculi seen the largest measuring 4 mm. No additional calculi identified. No hydronephrosis. BOWEL: Appendix has a normal appearance. No evidence of bowel obstruction. No inflammatory process. G astric banding device is in place. Lymph nodes: No evidence for adenopathy greater than 1 cm. Abdominal aorta: Atheromatous changes seen. No evidence for aneurysm. Genital organs: No significant abnormality. Other: No significant abnormality. IMPRESSION: 1. NONOBSTRUCTING RIGHT-SIDED NEPHROLITHIASIS. 2. NO ACUTE PROCESS SEEN.
[2016-10-09] MEDS: HYDROmorphone 1 MG/ML 1 ML SYRINGE IVP PRN (17:55)
[2016-10-09] MEDS ORDERED: ONDANSETRON 4 MG/2 ML VIAL IVP STA (19:46)
[2016-10-09] MEDS ORDERED: LEVALBUTEROL INHALATION PRN (19:47)
[2016-10-09] MEDS ORDERED: BISACODYL 5 MG TABLET.DR PO PRN (19:47)
[2016-10-09] MEDS ORDERED: BUTALB/APAP/CAFF 50-325-40MG TAB PO PRN (19:47)
[2016-10-09] MEDS ORDERED: NAPROXEN 250 MG TAB PO PRN (19:47)
[2016-10-09] MEDS ORDERED: OMALIZUMAB 150 MG VIAL SQ SCH (20:00)
[2016-10-09] MEDS ORDERED: NON-FORMULARY DRUG (Medroxyprogesterone Acetate [Depo-Provera] 150 MG) IM SCH (20:00)
[2016-10-09 20:12] LABS: Glucose,Whole Blood 76 mg/dL (75-99)
[2016-10-09 20:57] LABS: Glucose,Whole Blood 59 mg/dL (75-99)
[2016-10-09 21:14] LABS: Glucose,Whole Blood 73 mg/dL (75-99)
[2016-10-09] MEDS ORDERED: DEXTROSE 10% IN WATER 500 ML in EMPTY BAG 1 BAG IV SCH (21:15)
[2016-10-09] MEDS: DEXTROSE 10% IN WATER 1,000 ML IV SCH (21:33)
[2016-10-09] MEDS: MONTELUKAST 10 MG TAB PO SCH (22:09)
[2016-10-09] MEDS: FAMOTIDINE 20 MG TAB PO SCH (22:09)
[2016-10-09] MEDS: traZODone HCL 50 MG TAB PO PRN (22:10)
[2016-10-09] MEDS: PREGABALIN 50 MG CAP PO SCH (22:10)
[2016-10-09] MEDS: BUDESONIDE 0.5 MG/2 ML NEBU INHALATION SCH (23:43)
[2016-10-10] MEDS: METOCLOPRAMIDE 5 MG/ML 2 ML VIAL IVP SCH ×5 (00:06→23:27)
[2016-10-10 02:20] LABS: Glucose,Whole Blood 64 mg/dL (75-99)
[2016-10-10 02:28] LABS: Glucose,Whole Blood 65 mg/dL (75-99)
[2016-10-10 02:42] LABS: Glucose,Whole Blood 76 mg/dL (75-99)
[2016-10-10] MEDS: LEVOTHYROXINE 137 MCG TAB PO SCH (05:36)
[2016-10-10] MEDS: HYDROmorphone 1 MG/ML 1 ML SYRINGE IVP PRN ×4 (06:07→21:26)
[2016-10-10 07:37] LABS: Glucose,Whole Blood 115 mg/dL (75-99)
[2016-10-10] MEDS: LEVALBUTEROL NEB 1.25 MG/3 ML AMP INHALATION PRN ×2 (07:51→20:33)
[2016-10-10] MEDS: BUDESONIDE 0.5 MG/2 ML NEBU INHALATION SCH ×2 (07:51→20:33)
[2016-10-10] MEDS: PREGABALIN 50 MG CAP PO SCH ×3 (08:03→21:25)
[2016-10-10] MEDS: ARIPiprazole 5 MG TAB PO SCH (08:04)
[2016-10-10] MEDS: DEXTROSE 10% IN WATER 1,000 ML IV SCH ×4 (08:04→21:25)
[2016-10-10] MEDS: FAMOTIDINE 20 MG TAB PO SCH ×2 (08:04→21:25)
[2016-10-10] MEDS: DESVENLAFAXINE SUCCINATE 50 MG TAB.ER.24H PO SCH (08:04)
[2016-10-10] MEDS: ONDANSETRON ODT 4 MG TAB PO PRN (08:31)
[2016-10-10 09:32] LABS: Glucose,Whole Blood 66 mg/dL (75-99)
[2016-10-10] MEDS ORDERED: DEXTROSE 4 GM CHEWABLE PO PRN (09:49)
[2016-10-10 09:52] LABS: Glucose,Whole Blood 68 mg/dL (75-99)
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
[2016-10-10] MEDS: SCOPOLAMINE 1.5MG/72HR PATCH TRANSDERM SCH (11:01)
[2016-10-10 11:05] LABS: Glucose,Whole Blood 81 mg/dL (75-99)
[2016-10-10 12:09] LABS: Glucose,Whole Blood 80 mg/dL (75-99)
--- NOTE | 2016-10-10 16:20 | HP ---
DATE OF ADMISSION: 10/09/2016 PRESENTING COMPLAINT: Abdominal pain. HISTORY OF PRESENTING COMPLAINT: This is 35-year-old patient well known to me from previous admissions. Patient's chronic stable medical conditions include hypothyroid, depression, GERD, bulimia, also has hypoglycemia. Patient has a right kidney stone and due to have intervention by Dr. Vanessa. Patient recently in the hospital with right flank pain that actually lead to dehydration. Patient again presents with severe pain in right flank pain. Not able to keep anything down. Becoming severely hypoglycemic. Sugar did drop down to about 50. Patient also has significant nausea and right flank pain. REVIEW OF SYSTEMS: CONSTITUTIONAL: Tired. HEENT: None. RESPIRATORY: None. CARDIOVASCULAR: None. GASTROINTESTINAL: As above. GENITOURINARY: None. MUSCULOSKELETAL: Groin and low back pain. DERMATOLOGICAL: None. HEMATOLOGICAL: None. LYMPHATIC: None. PSYCHIATRY: Depression. NEUROLOGICAL: None. PAST MEDICAL HISTORY: Asthma, hypothyroid, depression, herniated disc in lower back, peptic ulcer disease, bulimia, hypothyroid. PAST SURGICAL HISTORY: Bariatric surgery, orthopedic surgery, multiple pain procedures, lap cholecystectomy, tonsillectomy. SOCIAL HISTORY: Patient lost her son to brain cancer and lost her mother and father to liver cancer, has 2 daughters, lives at home. No smoking. No alcohol. FAMILY HISTORY: As above. ALLERGIES TO ALBUTEROL, GRASS AND POLLEN. HOME MEDICATIONS: 1. Desyrel 50 to 100 mg p.o. q.h.s. p.r.n. 2. Prednisone 10 mg daily p.r.n. 3. Lyrica 1 tablet p.o. t.i.d. 4. Zofran 4 mg q.8 p.r.n. 5. Xolair 300 mg subcu every 30 days. 6. Naproxen 500 mg p.o. q.12 p.r.n. 7. Singulair 10 mg p.o. q.h.s. 8. Depo-Provera 150 mg IM q.90 days. 9. Synthroid 137 mcg p.o. daily. 10. Xopenex 0.63 mg q.i.d. p.r.n. 11. Xopenex HFA 2 puffs q.6 p.r.n. 12. [place] 7.5, 1 tablet p.o. q.6 p.r.n. 13. Aerospan 2 puffs b.i.d. 14. Pepcid 20 mg p.o. b.i.d. 15. Pristiq 100 mg p.o. daily. 16. Fioricet 1 tablet q.6 p.r.n. 17. Dulcolax 5 mg p.o. daily p.r.n. 18. Abilify 5 mg p.o. daily. ALLERGIES: GRASS, POLLEN, ALBUTEROL. On examination, temperature 96.4, pulse 92, respirations 19, blood pressure 113/55, pulse ox 97% on room air. Repeat blood pressure this morning is 98/54. GENERAL APPEARANCE: Average build, lying in bed, tired appearing. EYES: Pupils equal. Conjunctivae normal. HEENT: Oral cavity normal. NECK: JVD not raised. Mass not palpable. RESPIRATORY: Effort normal. Lungs are clear. CARDIOVASCULAR: First and second sounds normal. No edema. ABDOMEN: Right flank tenderness. No guarding, rigidity. Liver and spleen not palpable. LYMPHATIC: No lymph node palpable in neck or axillae. PSYCHIATRY: Alert and oriented. Mood and affect anxious -appearing. NEUROLOGICAL: Pupils equal. Cranial nerves grossly intact. Power and sensation grossly intact. INVESTIGATIONS: White count 7.7, hemoglobin 14.0. Potassium 3.2. BUN 17, creatinine 1.13, glucose 44. UA is positive for ketones. Some RBC. ASSESSMENT: 1. Right renal colic making the patient throw up leading to persistent hypoglycemia. 2. Moderate persistent asthma, stable. 3. Chronic lower back herniated disc. 4. Hypothyroidism, chronic. 5. Depression, not otherwise specified. 6. Gastroesophageal reflux disease. 7. Chronic bulimia controlled. 8. Dehydration secondary to nausea and vomiting. PLAN: At this point patient is put on D-10 at 100 mL an hour. Later on increase dose to 225 mL/h. Also give the patient SolTab and also give the patient sugar tablets. Home medications are resumed. Urology, Dr. Vanessa consulted to see if surgical intervention can be done sooner than later. Will give DVT prophylaxis.
[2016-10-10] MEDS: ENOXAPARIN 40 MG/0.4 ML SYRINGE SQ SCH (16:22)
[2016-10-10 17:12] LABS: Glucose,Whole Blood 137 mg/dL (75-99)
[2016-10-10 20:47] LABS: Glucose,Whole Blood 108 mg/dL (75-99)
[2016-10-10] MEDS: MONTELUKAST 10 MG TAB PO SCH (21:25)
[2016-10-10] MEDS: traZODone HCL 50 MG TAB PO PRN (21:52)
[2016-10-11 02:01] LABS: Glucose,Whole Blood 120 mg/dL (75-99)
[2016-10-11] MEDS: METOCLOPRAMIDE 5 MG/ML 2 ML VIAL IVP SCH ×3 (05:18→17:28)
[2016-10-11] MEDS: HYDROmorphone 1 MG/ML 1 ML SYRINGE IVP PRN ×5 (05:18→20:15)
[2016-10-11] MEDS: LEVOTHYROXINE 137 MCG TAB PO SCH (05:18)
[2016-10-11 07:47] LABS: Glucose,Whole Blood 107 mg/dL (75-99)
[2016-10-11] MEDS: BUDESONIDE 0.5 MG/2 ML NEBU INHALATION SCH ×2 (08:22→19:52)
[2016-10-11] MEDS: DEXTROSE 10% IN WATER 1,000 ML IV SCH ×2 (08:42→16:08)
[2016-10-11] MEDS: ARIPiprazole 5 MG TAB PO SCH (08:44)
[2016-10-11] MEDS: FAMOTIDINE 20 MG TAB PO SCH ×2 (08:44→20:25)
[2016-10-11] MEDS: DESVENLAFAXINE SUCCINATE 50 MG TAB.ER.24H PO SCH (08:44)
[2016-10-11] MEDS: ENOXAPARIN 40 MG/0.4 ML SYRINGE SQ SCH (08:45)
[2016-10-11] MEDS: PREGABALIN 50 MG CAP PO SCH ×3 (08:48→20:28)
[2016-10-11 09:13] VITALS: BMI 29.2
[2016-10-11 11:28] LABS: Anion Gap 9 mmol/L; Blood Urea Nitrogen 5 mg/dL (7-17); Carbon Dioxide 24 mmol/L (22-30); Chloride 109 mmol/L (98-107); Glucose 95 mg/dL (74-99); Non-African American GFR(MDRD) >60 (>60 ml/min/1.73 sqM); Potassium 4.1 mmol/L (3.5-5.1); Sodium 142 mmol/L (137-145)
[2016-10-11 11:57] LABS: Glucose,Whole Blood 99 mg/dL (75-99)
[2016-10-11] MEDS: ONDANSETRON ODT 4 MG TAB PO PRN (16:09)
[2016-10-11 17:50] LABS: Glucose,Whole Blood 128 mg/dL (75-99)
[2016-10-11] MEDS ORDERED: ONDANSETRON 4 MG/2 ML VIAL IVP ONE (18:36)
[2016-10-11] MEDS ORDERED: MIDAZOLAM 2 MG/2 ML VIAL IV PRN (18:36)
[2016-10-11] MEDS ORDERED: DEXAMETHASONE SOD PHOSPHATE 10 MG/ML 1 ML VIAL IV ONE (18:36)
[2016-10-11] MEDS ORDERED: LACTATED RINGERS 1,000 ML IV SCH (18:45)
--- NOTE | 2016-10-11 19:15 | P.PN ---
Subjective The patient still ishaving pain and nausea. I will do a right ureteroscopy with laser lithotripsy if possible. I explained to the paiteint that there is no guarentee that this will control his pain. this will happen in the am of 2016 Objective - Vital Signs Vital signs: Vital Signs Temp 97.1 F L 10/11/16 15:00 Pulse 86 10/11/16 15:00 Resp 16 10/11/16 15:00 BP 114/64 10/11/16 15:00 Pulse Ox 97 10/11/16 15:00 Intake & Output 10/11/16 10/11/16 10/12/16 06:59 18:59 06:59 Weight 72.575 kg Other: Voiding Method Bedside Commode # Voids 3 5 - Labs CBC & Chem 7: 10/09/16 14:57 10/11/16 10:47 Labs: Abnormal Lab Results - Last 24 Hours (Table) 10/10/16 10/11/16 10/11/16 Range/Units 20:46 01:49 07:40 Chloride (98-107) mmol/L BUN (7-17) mg/dL POC Glucose (mg/dL) 108 H 120 H 107 H (75-99) mg/dL 10/11/16 10/11/16 Range/Units 10:47 17:47 Chloride 109 H (98-107) mmol/L BUN 5 L (7-17) mg/dL POC Glucose (mg/dL) 128 H (75-99) mg/dL Microbiology - Last 24 Hours (Table) 10/09/16 15:10 Urine Culture - Final Urine,Voided
[2016-10-11] MEDS: MONTELUKAST 10 MG TAB PO SCH (20:25)
--- NOTE | 2016-10-11 20:41 | PN ---
DATE OF SERVICE: 10/11/2016 PRESENTING COMPLAINT: Abdominal pain, nausea, vomiting. INTERVAL HISTORY: This is a 35-year-old female who was admitted with right flank pain, abdominal pain, which led to dehydration. Today patient is actively nauseated, throwing up, unable to keep anything down. Blood sugar remains stable; however, difficulty gaining control over the sugar. Patient continues to complain of right flank pain; anxious to know when or if her surgery can be bumped up. Patient is anxious-appearing and distressed. Review of systems done for constitutional, cardiovascular, GI, pulmonary, with relevant findings as above. CURRENT MEDICATIONS: 1. [place]. 2. Abilify. 3. Pulmicort. 4. Pristiq ER. 5. Lovenox. 6. Pepcid. 7. Synthroid. PHYSICAL EXAMINATION: VITAL SIGNS: Temperature 97.1, pulse 86, respiratory rate 16, blood pressure 114/64, oxygen saturation 97% on room air. GENERAL APPEARANCE: Patient is sitting up and throwing up clear secretions. Patient complains of right flank pain. Patient is genuinely distressed. EYES: Pupils equal. Conjunctivae normal. NECK: JVD not raised. Mass not palpable. LUNGS: Clear to auscultation bilaterally. RESPIRATORY: Effort normal, unlabored. CARDIOVASCULAR: First and second sounds normal. No edema noted. ABDOMEN: Tender, particularly to the right flank. Liver and spleen not palpable. PSYCHIATRY: Alert and oriented x3. Mood and affect distressed. INVESTIGATIONS: Sodium 142, potassium 4.1. BUN 5, creatinine 1.0. Blood glucose 107. Surgical consultation awaiting the possibility of an advanced date for surgery to remove the kidney stone. ASSESSMENT: 1. Right renal colic making the patient throw up leading to persistent hypoglycemia. 2. Moderate persistent asthma, stable. 3. Chronic lower back herniated disc. 4. Hypothyroidism, chronic. 5. Depression not otherwise specified. 6. Gastroesophageal reflux disease. 7. Chronic bulimia, controlled. 8. Dehydration secondary to nausea and vomiting. PLAN: Patient will remain on dextrose 10 at 100 mL/hour. Patient will continue also to receive salt tablets and dextrose IV was increased to 225 mL/hour. Patient to receive a lower extremity Doppler for a nodule that was noted to the posterior knee. Patient complained that it was causing her pain. Patient has a long-standing history of DVT. Patient is on DVT prophylaxis. Patient was seen and examined by nurse practitioner Beth Bhatti, and all elements of the case were discussed with attending, Dr. English.
[2016-10-11 21:38] LABS: Glucose,Whole Blood 109 mg/dL (75-99)
[2016-10-11] MEDS: traZODone HCL 50 MG TAB PO PRN (22:02)
[2016-10-11] MEDS: LACTATED RINGERS 1,000 ML IV SCH (22:46)
[2016-10-12] MEDS: HYDROmorphone 1 MG/ML 1 ML SYRINGE IVP PRN ×8 (00:01→21:57)
[2016-10-12] MEDS: DEXTROSE 10% IN WATER 1,000 ML IV SCH ×4 (00:13→16:33)
[2016-10-12] MEDS: METOCLOPRAMIDE 5 MG/ML 2 ML VIAL IVP SCH ×4 (00:23→17:35)
[2016-10-12 03:04] LABS: Glucose,Whole Blood 155 mg/dL (75-99)
[2016-10-12 07:28] LABS: Glucose,Whole Blood 126 mg/dL (75-99)
[2016-10-12] MEDS: BUDESONIDE 0.5 MG/2 ML NEBU INHALATION SCH ×2 (08:22→19:40)
--- NOTE | 2016-10-12 09:27 | US ---
EXAMINATION TYPE: US venous doppler duplex LE DATE OF EXAM: 10/12/2016 8:54 AM COMPARISON: NONE CLINICAL HISTORY: r/o dvt. right leg pain, patient feels lump behind right knee. SIDE PERFORMED: Bilateral TECHNIQUE: The lower extremity deep venous system is examined utilizing real time linear array sonog bob with graded compression, doppler sonography and color-flow sonography. VESSELS IMAGED: External Iliac Vein (EIV) Common Femoral Vein Deep Femoral Vein Greater Saphenous Vein * Femoral Vein Popliteal Vein Proximal Calf Veins (* superficial vessels) Right Leg: Negative for DVT Left Leg: Negative for DVT IMPRESSION: 1. No diagnostic evidence of DVT as visualized.
[2016-10-12] MEDS ORDERED: IV FLUID CONTINUATION 1,000 ML IV ONE (10:46)
[2016-10-12 10:48] LABS: Glucose,Whole Blood 107 mg/dL (75-99)
[2016-10-12] MEDS: ONDANSETRON 4 MG/2 ML VIAL IVP ONE ×2 (11:05→12:24)
[2016-10-12] MEDS ORDERED: PROPOFOL 10 MG/ML 20 ML VIAL IV ONE (11:08)
[2016-10-12] MEDS ORDERED: MIDAZOLAM 2 MG/2 ML VIAL ONE (11:08)
[2016-10-12] MEDS ORDERED: fentaNYL (PF) 50 MCG/ML 2 ML AMP ONE (11:08)
[2016-10-12] MEDS ORDERED: SUCCINYLCHOLINE CHLORIDE 100 MG/5 ML SYR IV ONE (11:08)
[2016-10-12] MEDS ORDERED: LIDOCAINE 1% INJ 10MG/ML (20 ML MDV) ONE (11:08)
[2016-10-12] MEDS ORDERED: IOHEXOL 350 MG/ML 50ML BOTTLE MISCELLANE ONE (11:30)
[2016-10-12] MEDS ORDERED: SODIUM CHLORIDE 0.9% 50 ML with ceFAZolin 2,000 MG IV ONE ×2 (11:30)
--- NOTE | 2016-10-12 12:19 | P.OP ---
Date of Procedure: 10/12/16 Preoperative Diagnosis: Right sided abdominal pain, right renal stone Postoperative Diagnosis: Same Procedure(s) Performed: Cystoscopy right retrograde pyelogram, right ureteroscopy with laser lithotripsy to 4 mm right renal stone, stone basketing, 624 stent Implants: Anesthesia: [place] Surgeon: Jerrod Hillman Estimated Blood Loss (ml): 0 Pathology: other (Stone) Condition: stable Disposition: PACU Indications for Procedure: The patient is a 35-year-old female with a 4-5 mm right lower pole stone. She has had severe right abdominal discomfort. There is been no hydronephrosis. The question is whether the stone is causing renal colic or whether there is another cause for pain. She saw . They discussed the problem and was set up to have a right ureteroscopy and laser lithotripsy on 10/16/2016. She ended up in the hospital this week with severe colic nausea and vomiting. In ' absence I saw the patient. Because of the persistent nausea and vomiting we'll do the surgical procedure today. He understands that this may not control her discomfort. Operative Findings: Description of Procedure: Patient is brought to the operating suite she is given a successful general endotracheal anesthesia. She's placed in lithotomy position with a sterile prep and drape. Cystoscopy of the Foroblique lens and 22-[place] sheath identifies a normal urethra. The bladder hatch unremarkable. Within a cone- tipped catheter right retrograde pyelogram was performed the ureters of normal course and caliber. There may be a filling defect in the right lower pole calyx. I passed an 035 wire up into the renal pelvis. Over the wires passed 11 -13-[place] reentry sheath. The inner stylette was removed. I then through the outer sheath passed the flexible ureteroscope and inspected the electing system. Identify a 5 mm stone attached to a lower pole calyx. It is not free- floating. With the 200 laser probe and 3 W of energy I fracture the stone into very tiny pieces. I'm able to basket a couple 1 mm fragments. Restasis flushed out of the kidney. I removed the ureteroscope. Through the inner sheath I passed an 035 wire to the renal pelvis. I then pass a 6 x 24 double-J catheter into the renal pelvis which he coils there and in the bladder. The bladder strain the patient's awake and returned recovery room good condition. She tolerated procedure well. She can be discharged home later today or tomorrow. We will see if this controls her pain. The stent will come out in approximately 1 week.
[2016-10-12 12:25] LABS: Glucose,Whole Blood 122 mg/dL (75-99)
--- NOTE | 2016-10-12 12:43 | FL ---
EXAMINATION TYPE: FL urography retrograde DATE OF EXAM: 10/12/2016 12:16 PM COMPARISON: NONE HISTORY: Fluoroscopy time TECHNIQUE: Fluoroscopy. FINDINGS: Fluoroscopic guidance was provided during procedure of 15 seconds IMPRESSION: As Above.
[2016-10-12] MEDS: FAMOTIDINE 20 MG TAB PO SCH ×2 (14:18→21:05)
[2016-10-12] MEDS: PREGABALIN 50 MG CAP PO SCH ×3 (14:19→21:07)
[2016-10-12] MEDS: ARIPiprazole 5 MG TAB PO SCH (14:19)
[2016-10-12] MEDS: DESVENLAFAXINE SUCCINATE 50 MG TAB.ER.24H PO SCH (14:19)
[2016-10-12] MEDS: LEVOTHYROXINE 137 MCG TAB PO SCH (14:19)
[2016-10-12] MEDS: ENOXAPARIN 40 MG/0.4 ML SYRINGE SQ SCH (14:19)
[2016-10-12] MEDS: HYDROcodone/APAP 7.5-325MG 1 EACH TAB PO PRN (15:45)
[2016-10-12 17:36] LABS: Glucose,Whole Blood 131 mg/dL (75-99)
[2016-10-12 20:58] LABS: Glucose,Whole Blood 138 mg/dL (75-99)
[2016-10-12] MEDS: traZODone HCL 50 MG TAB PO PRN (21:02)
[2016-10-12] MEDS: MONTELUKAST 10 MG TAB PO SCH (21:05)
[2016-10-12] MEDS: LACTATED RINGERS 1,000 ML IV SCH (21:09)
--- NOTE | 2016-10-12 21:34 | PN ---
DATE OF SERVICE: 10/11/2016 ATTENDING NOTE: This patient was seen and examined by me yesterday. I reviewed the note of my nurse practitioner, Ms. Bhatti, and discussed with her. Patient is here with right flank pain, still present, still having some nausea. I spoke to Dr. Vanessa. He will coordinate to see that intervention goes through. Patient also has hypoglycemia, on a D10 drip. On examination, afebrile. Lungs are clear. CARDIOVASCULAR: First and second sounds normal. Right flank tenderness. ASSESSMENT: 1. Possibly right renal colic causing nausea, vomiting. 2. Hypoglycemia, persisting, requiring D10 drip. 3. Dehydration. PLAN: Continue current medication and treatment plan. As discussed with Dr. Vanessa, he will coordinate to see that surgery goes through. In the meantime, continue current treatment plan.
--- NOTE | 2016-10-12 22:22 | PN ---
DATE OF SERVICE: 10/12/2016 PRESENTING COMPLAINT: Abdominal pain, nausea, vomiting. INTERVAL HISTORY: This is a 35-year-old female who was admitted with right flank pain, abdominal pain, which led to dehydration. On exam patient remains actively nauseated. Patient is unable to keep anything down. Blood sugars remain stable; however, they are labile. She continues to complain of right flank pain. Patient is scheduled for surgery today to perform stone removal. Patient is anxious-appearing and distressed. Review of systems done for constitutional, cardiovascular, GI, pulmonary, with relevant findings as above. CURRENT MEDICATIONS: 1. [place]. 2. Abilify. 3. Pulmicort. 4. Pristiq. 5. Lovenox. 6. Pepcid. 7. Synthroid. PHYSICAL EXAMINATION: VITAL SIGNS: Temperature 97.5, pulse 95, respiratory rate 18, blood pressure 117/60, oxygen saturation 99% on room air. GENERAL APPEARANCE: Patient has an anxious-appearing demeanor. No acute distress noted or voiced; however, patient is happy that her surgery is going to occur today. EYES: Pupils equal. Conjunctivae normal. NECK: JVD not raised. Mass not palpable. LUNGS: Clear to auscultation bilaterally. RESPIRATORY: Effort normal, unlabored. CARDIOVASCULAR: First and second sounds noted. No edema. ABDOMEN: Tender to palpation, particularly to the right costovertebral angle. Liver and spleen not palpable. PSYCHIATRY: Alert and oriented x3. Mood and affect anxious. INVESTIGATIONS: Blood glucose 131. ASSESSMENT: 1. Right renal colic making the patient throw up, leading to persistent hypoglycemia, slow to respond. 2. Moderate persistent asthma, stable. 3. Chronic low back herniated disc. 4. Hypothyroidism, chronic. 5. Depression not otherwise specified. 6. Gastroesophageal reflux disease. 7. Chronic bulimia, uncontrolled. 8. Dehydration secondary to nausea and vomiting. PLAN: Patient is scheduled for surgery this morning for stone removal. Patient will remain on dextrose 10 at 100 mL/hour. She will receive her salt tablets and dextrose IV increased to 225 mL/hour. Venous Doppler study showed no DVT in either the right or left leg. Patient remains on DVT prophylaxis. Patient was seen and examined by nurse practitioner, Beth Bhatti, and all elements of the case were discussed with attending, Dr. English.
[2016-10-13] MEDS: HYDROmorphone 1 MG/ML 1 ML SYRINGE IVP PRN ×5 (00:56→21:50)
[2016-10-13] MEDS: METOCLOPRAMIDE 5 MG/ML 2 ML VIAL IVP SCH ×4 (01:54→16:59)
[2016-10-13 05:41] LABS: Glucose,Whole Blood 117 mg/dL (75-99)
[2016-10-13] MEDS: DEXTROSE 10% IN WATER 1,000 ML IV SCH ×4 (06:53→17:42)
[2016-10-13] MEDS: LEVOTHYROXINE 137 MCG TAB PO SCH (06:53)
[2016-10-13] MEDS: HYDROcodone/APAP 7.5-325MG 1 EACH TAB PO PRN ×3 (06:57→20:13)
[2016-10-13 07:33] LABS: Glucose,Whole Blood 102 mg/dL (75-99)
[2016-10-13] MEDS: ARIPiprazole 5 MG TAB PO SCH (08:55)
[2016-10-13] MEDS: FAMOTIDINE 20 MG TAB PO SCH ×2 (08:55→21:51)
[2016-10-13] MEDS: ENOXAPARIN 40 MG/0.4 ML SYRINGE SQ SCH (08:55)
[2016-10-13] MEDS: DESVENLAFAXINE SUCCINATE 50 MG TAB.ER.24H PO SCH (08:56)
[2016-10-13] MEDS: SCOPOLAMINE 1.5MG/72HR PATCH TRANSDERM SCH (08:57)
[2016-10-13] MEDS: PREGABALIN 50 MG CAP PO SCH ×3 (09:14→21:51)
--- NOTE | 2016-10-13 09:51 | P.PN ---
Progress Note - Text The patient underwent left ureteroscopy with lithotripsy for treatment of a 5 mm left lower pole calculus yesterday. A double-J catheter was left following the procedure. The patient is afebrile. She says she does have some blood in her urine which is not unexpected. She continues to have some back pain as well as some abdominal pain. The patient can be discharged and will follow-up with Dr. Hillman in 7-10 days for cystoscopy with removal of her double-J catheter.
--- NOTE | 2016-10-13 10:12 | PN ---
DATE OF SERVICE: 10/12/2016 ATTENDING NOTE: This patient was seen and examined by me yesterday, 10/12/16. I reviewed the note of my nurse practitioner Ms. Bhatti and discussed with her. Patient yesterday underwent a right kidney stone laser disruption and a double-J stent was placed. She is feeling better after the procedure; still having some right abdominal pain, though better than before. On examination, blood pressure is 117/60, pulse ox 99% on room air. Lying in bed, tired-appearing. Some right flank tenderness. No guarding or rigidity. Patient has been afebrile. Accu-Cheks noted. ASSESSMENT: 1. Right kidney stone, status post laser lithotripsy and double-J stent placement. 2. Persistent hypoglycemia from decreased oral intake. PLAN: At this point, will continue with D10 drip and keep an eye on her sugars until patient's oral intake actually gets better. Care was discussed with the patient.
[2016-10-13 10:48] LABS: CH 34.3; HCT 34.2 % (34.0-46.0); HDW 2.92; MCH 33.7 pg (25.0-35.0); MCHC 35.2 g/dL (31.0-37.0); MCV 95.9 fL (80.0-100.0); Mean Platelet Volume 6.7; RBC 3.57 m/uL (3.80-5.40); RDW 12.4 % (11.5-15.5)
[2016-10-13 11:34] LABS: Blood Urea Nitrogen 6 mg/dL (7-17); Calcium 8.7 mg/dL (8.4-10.2); Carbon Dioxide 31 mmol/L (22-30); Chloride 104 mmol/L (98-107); Glucose 75 mg/dL (74-99); Non-African American GFR(MDRD) 54 (>60 ml/min/1.73 sqM)
[2016-10-13 11:39] LABS: Anion Gap 5 mmol/L; Sodium 140 mmol/L (137-145)
[2016-10-13] MEDS ORDERED: RX INFO: IV CONTRAST WAS GIVEN 1 EACH MISC MISCELLANE PRN (11:54)
--- NOTE | 2016-10-13 12:31 | CT ---
EXAMINATION TYPE: CT brain w con DATE OF EXAM: 10/13/2016 12:25 PM COMPARISON: Noncontrast exam 06/08/2015 HISTORY: 35-year-old female with blurred vision CT DLP: 1011.9 mGycm Automated exposure control for dose reduction was used. CONTRAST: CT scan of the head is performed with IV Contrast, patient injected with 100 mL of Omnipaque 300. FINDINGS: There is no abnormal enhancing mass or midline shift identified. Dural venous sinuses are patent. In cidental dominant left vertebral artery, normal variation. The ventricles and sulci are within normal limits in size. The globes are intact and the visualized sinuses are clear. IMPRESSION: Negative contrast enhanced head CT exam.
[2016-10-13 12:32] LABS: Glucose,Whole Blood 79 mg/dL (75-99)
[2016-10-13] MEDS: BUDESONIDE 0.5 MG/2 ML NEBU INHALATION SCH ×2 (12:33→20:54)
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
[2016-10-13 17:23] LABS: Glucose,Whole Blood 105 mg/dL (75-99)
--- NOTE | 2016-10-13 19:32 | PN ---
DATE OF SERVICE: 10/13/2016 PRESENTING COMPLAINT: Abdominal pain, nausea, vomiting. INTERVAL HISTORY: This patient is status post cystoscopy, right retrograde pyelogram, right ureteroscopy with laser lithotripsy. Today patient is lying in bed. She complains of appetite still not being where it should be, blood sugars continue to be low. Patient states she feels extremely weak. States that her vision is blurred. Patient does appear anxious this morning. Review of systems done for constitutional, cardiovascular, GI, pulmonary, with relevant findings as above. CURRENT MEDICATIONS: [place], Abilify, Pulmicort, Pristiq, Lovenox, Pepcid, Synthroid. PHYSICAL EXAMINATION: VITAL SIGNS: Temperature 98.1, pulse 95, respirations 18, blood pressure 105/62, oxygen saturation 98% on room air. GENERAL APPEARANCE: Patient is anxious-appearing with many questions and concerns about when she can go home. EYES: Pupils are unequal, right eye about 5 mm, left about 3 mm. Conjunctivae normal. NECK: JVD not raised. Mass not palpable. LUNGS: Bilateral breath sounds clear to auscultation. RESPIRATORY: Effort normal. CARDIOVASCULAR: First and second sounds noted. No edema. ABDOMEN: Right side remains tender, particularly to the flank. Liver and spleen not palpable. PSYCHIATRY: Alert and oriented x3. Mood and affect normal INVESTIGATIONS: White blood cell count 7.0, hemoglobin 12.0, platelet count 161, sodium 140, potassium 4.0, BUN 6, creatinine 1.14. ASSESSMENT: 1. Right renal colic, status post laser lithotripsy. Patient continues with complaints of nausea, which leads to persistent hypoglycemia, slow to respond. 2. Moderate persistent asthma, stable. 3. Chronic low back pain, herniated disc. 4. Hypothyroidism, chronic. 5. Depression not otherwise specified. 6. Gastroesophageal reflux disease. 7. Chronic bulimia, uncontrolled. 8. Dehydration secondary to nausea and vomiting. PLAN: Patient experienced pupils unequal with blurred vision. Therefore patient will be sent for a CT scan. A neurology consult has been placed. Patient's blood glucose continues to remain relatively low and will remain on dextrose at 100 mL an hour. She will continue to receive her SolTabs. Tentative discharge planning possibly for tomorrow based on remaining testing. Patient responds to eating her meals and normalizing blood glucose. Patient was seen and examined by nurse practitioner, Beth Bhatti, and all the elements of the case were discussed with attending, Dr. English. I performed a history and physical examination of this patient and discussed the same with the dictator. I agree with the dictator's note. Any additional findings/opinions, etc. will be noted.
[2016-10-13 21:08] LABS: Glucose,Whole Blood 107 mg/dL (75-99)
[2016-10-13] MEDS: MONTELUKAST 10 MG TAB PO SCH (21:51)
[2016-10-13] MEDS: traZODone HCL 50 MG TAB PO PRN (22:24)
[2016-10-14] MEDS: METOCLOPRAMIDE 5 MG/ML 2 ML VIAL IVP SCH ×5 (00:09→23:47)
[2016-10-14] MEDS: HYDROmorphone 1 MG/ML 1 ML SYRINGE IVP PRN ×3 (02:05→19:47)
[2016-10-14 02:12] LABS: Glucose,Whole Blood 101 mg/dL (75-99)
[2016-10-14] MEDS: DEXTROSE 10% IN WATER 1,000 ML IV SCH (03:03)
[2016-10-14] MEDS: HYDROcodone/APAP 7.5-325MG 1 EACH TAB PO PRN ×2 (05:01→11:46)
[2016-10-14] MEDS: LEVOTHYROXINE 137 MCG TAB PO SCH (06:23)
[2016-10-14 07:33] LABS: Glucose,Whole Blood 85 mg/dL (75-99)
[2016-10-14] MEDS: BUDESONIDE 0.5 MG/2 ML NEBU INHALATION SCH ×2 (07:58→19:59)
--- NOTE | 2016-10-14 08:04 | PN ---
DATE OF SERVICE: 10/13/2016 ATTENDING NOTE: This patient was seen and examined by me earlier today. I reviewed the note of my nurse practitioner, Ms. Bhatti and discussed the care with her. Patient is status post right kidney stone removal with laser lithotripsy. Today feels a bit better, though still tired. Appetite is slowly improving. Patient remains on D10 drip. On exam, lungs are clear. CARDIOVASCULAR: First and second sounds normal. Minimal tenderness in the right flank. INVESTIGATIONS: Accu-Cheks are noted 79, 105, 107. On examination decreased tenderness in the flanks, slightly unequal pupils. ASSESSMENT: 1. Right renal colic, much improved. 2. Persistent hypoglycemia. The patient being supported with IV D10 drip. PLAN: Early today I was called with unequal pupils. I ordered stat CT scan of the brain, neuro checks and neurology consult. CT scan of the brain came back negative. I spoke to MANAN Santiago Dr.'s nurse practitioner. She was well known to them and known to have white matter changes, despite nothing further to be done. Patient encouraged to increase her oral. Will cut back on D10 to 50 mL an hour and will DC the D10 drip at 6:00 in the morning.
[2016-10-14] MEDS: FAMOTIDINE 20 MG TAB PO SCH ×2 (09:14→21:56)
[2016-10-14] MEDS: DESVENLAFAXINE SUCCINATE 50 MG TAB.ER.24H PO SCH (09:14)
[2016-10-14] MEDS: ARIPiprazole 5 MG TAB PO SCH (09:14)
[2016-10-14] MEDS: ENOXAPARIN 40 MG/0.4 ML SYRINGE SQ SCH (09:14)
[2016-10-14] MEDS: PREGABALIN 50 MG CAP PO SCH ×3 (09:14→21:56)
[2016-10-14 12:15] LABS: Glucose,Whole Blood 85 mg/dL (75-99)
[2016-10-14] MEDS: ONDANSETRON ODT 4 MG TAB PO PRN (14:38)
[2016-10-14] MEDS: DEXTROSE 5%-0.45% NACL 1,000 ML IV SCH ×2 (15:25→21:56)
[2016-10-14 17:04] LABS: Glucose,Whole Blood 107 mg/dL (75-99)
--- NOTE | 2016-10-14 20:33 | PN ---
DATE OF SERVICE: 10/14/2016. PRESENTING COMPLAINT: Abdominal pain, nausea, vomiting. INTERVAL HISTORY: This patient is status post cystoscopy, right retrograde pyelogram, right ureteroscopy with a laser lithotripsy. Today patient is lying in bed, has many multiple complaints, complaining still of back pain, patient stating that she has some blood in her urine which she finds to be concerning. She was able to eat a couple of meals in the interim and was able to keep food down, was not throwing up any further. She does complain still of feeling weak. Continues to complain of blurred vision. Difficulty seeing things up close. Patient once again appears anxious this morning. Review of systems done for constitutional, cardiovascular, GI, pulmonary, with relevant findings as above. CURRENT MEDICATIONS: [place], Abilify, Pulmicort, Pristiq, Lovenox, Pepcid, Synthroid. PHYSICAL EXAMINATION: VITAL SIGNS: Temperature 98.8, pulse 83, respirations 16, blood pressure 112/57, oxygen saturation 99% on room air. GENERAL APPEARANCE: Patient appears anxious, lying in bed. EYES: Pupils equal. Conjunctivae normal. NECK: JVD not raised. Mass not palpable. LUNGS: Clear to auscultation bilaterally. RESPIRATORY: Effort normal, unlabored. CARDIOVASCULAR: First and second sounds noted. No edema. ABDOMEN: Tender to the right flank and right upper and lower quadrants. Liver and spleen not palpable. PSYCHIATRY: Alert and oriented x3. Affect anxious -appearing. INVESTIGATIONS: White blood cell count 7.0, hemoglobin 12.0, platelet count 161, sodium 140, potassium 4.0, BUN 6.0, creatinine 1.14, blood glucose 107. ASSESSMENT: 1. Right renal colic, much improved. 2. Persistent hypoglycemia. Improved. 3. Moderate persistent asthma, stable. 4. Chronic low back pain, herniated disc. 5. Hypothyroidism, chronic. 6. Depression, not otherwise specified. 7. Gastroesophageal reflux disease. 8. Chronic bulimia, uncontrolled. 9. Dehydration secondary to nausea and vomiting improved. PLAN: Patient's blood glucose is normalized and has not had any hypoglycemic events. Patient has eaten several meals without any nausea or vomiting. Our plan is to attempt to send her home today. However, on rounds today with the attending, patient was nauseated at lunch, unable to eat and therefore discharge planning will be pushed forward until Saturday. Patient stated that there has been some blood in her urine, likely secondary to stent placement and kidney stone lithotripsy. Will initiate IV fluids for overnight in an attempt to help alleviate the bleeding and flush kidneys. Will continue to monitor. Patient was seen and examined by nurse practitioner, Beth Bhatti, and all elements of the case discussed with attending, Dr. English. I performed a history and physical examination of this patient and discussed the same with the dictator. I agree with the dictator's note. Any additional findings/opinions, etc. will be noted.
[2016-10-14 21:32] LABS: Glucose,Whole Blood 97 mg/dL (75-99)
[2016-10-14] MEDS: MONTELUKAST 10 MG TAB PO SCH (21:56)
[2016-10-14] MEDS: traZODone HCL 50 MG TAB PO PRN (21:56)
[2016-10-15] MEDS: HYDROmorphone 1 MG/ML 1 ML SYRINGE IVP PRN ×6 (00:35→19:51)
[2016-10-15 03:13] LABS: Glucose,Whole Blood 93 mg/dL (75-99)
[2016-10-15] MEDS: DEXTROSE 5%-0.45% NACL 1,000 ML IV SCH ×3 (05:42→17:09)
[2016-10-15] MEDS: METOCLOPRAMIDE 5 MG/ML 2 ML VIAL IVP SCH ×3 (06:39→17:31)
[2016-10-15] MEDS: LEVOTHYROXINE 137 MCG TAB PO SCH (06:39)
[2016-10-15 07:42] LABS: Glucose,Whole Blood 86 mg/dL (75-99)
[2016-10-15] MEDS: BUDESONIDE 0.5 MG/2 ML NEBU INHALATION SCH ×2 (08:06→19:38)
[2016-10-15] MEDS: ARIPiprazole 5 MG TAB PO SCH (08:23)
[2016-10-15] MEDS: DESVENLAFAXINE SUCCINATE 50 MG TAB.ER.24H PO SCH (08:23)
[2016-10-15] MEDS: PREGABALIN 50 MG CAP PO SCH ×3 (08:23→21:47)
[2016-10-15] MEDS: FAMOTIDINE 20 MG TAB PO SCH ×2 (08:23→21:47)
--- NOTE | 2016-10-15 09:38 | PN ---
DATE OF SERVICE: 10/14/2016 ATTENDING NOTE: This patient was seen and examined by me yesterday. I reviewed the note from my nurse practitioner, Ms. Bhatti. Patient is status post right kidney stone extraction. Today was having actually more flank pain and some blood in the urine. On examination, some right flank and right abdominal tenderness. ASSESSMENT: Status post right kidney stone removed, probably patient has got some stone ( ) that may be coming on and causing some blood, discussed with the patient. She is keen to go home at this point, will start the patient on IV fluids, on 25 mL to flush the kidneys out. She understands that if she does not need eat that she is going to get hypoglycemic. Continue with the same.
[2016-10-15] MEDS ORDERED: LACTULOSE 20 GM/30 ML CUP PO ONE (10:12)
[2016-10-15] MEDS: HYDROcodone/APAP 7.5-325MG 1 EACH TAB PO PRN ×2 (10:25→17:35)
[2016-10-15 11:35] LABS: Glucose,Whole Blood 91 mg/dL (75-99)
[2016-10-15] MEDS ORDERED: LEVALBUTEROL NEB 1.25 MG/3 ML AMP INHALATION PRN (11:58)
[2016-10-15 17:20] LABS: Glucose,Whole Blood 117 mg/dL (75-99)
[2016-10-15 21:16] LABS: Glucose,Whole Blood 108 mg/dL (75-99)
[2016-10-15] MEDS: traZODone HCL 50 MG TAB PO PRN (21:47)
[2016-10-15] MEDS: MONTELUKAST 10 MG TAB PO SCH (21:47)
--- NOTE | 2016-10-15 22:55 | PN ---
DATE OF SERVICE: 10/15/2016 PRESENTING COMPLAINT: Abdominal pain, nausea, vomiting. INTERVAL HISTORY: This patient is status post cystoscopy, right retrograde pyelogram, right ureteroscopy with laser lithotripsy. Today patient is sitting on the side of the bed and has multiple complaints. Complains of back pain, blood in the urine and nausea. Reviewed with patient the appropriate choices to make when choosing foods to eat, as patient should be choosing soft, [id number] foods. Patient continues to be anxious and anxious-appearing. Patient is ambulatory in the hallways, able to walk to and from the bathroom without any difficulties. Review of systems done for constitutional, cardiovascular, GI, pulmonary, with relevant findings as above. CURRENT MEDICATIONS: 1. [place]. 2. Abilify. 3. Pulmicort. 4. Pristiq. 5. Lovenox. 6. Pepcid. 7. Synthroid. PHYSICAL EXAMINATION: VITAL SIGNS: Temperature 96.7, pulse 68, respiratory rate 14, blood pressure 100/54, oxygen saturation 100% on room air. GENERAL APPEARANCE: Patient is sitting up in the bed. Looks anxious and worried. EYES: Pupils equal. Conjunctivae normal. NECK: JVD not raised. Mass not palpable. LUNGS: Clear to auscultation bilaterally. Respiratory effort normal. CARDIOVASCULAR: First and second sounds noted. No edema. ABDOMEN: Soft. Tender to the right upper quadrant and right flank. Liver and spleen not palpable. PSYCHIATRY: Alert and oriented x3. Affect anxious-appearing. INVESTIGATIONS: Blood glucose 107. ASSESSMENT: 1. Right renal colic, much improved. 2. Persistent hypoglycemia, improving. 3. Moderate persistent asthma, stable. 4. Chronic low back pain, herniated disc. 5. Hypothyroidism, chronic. 6. Depression not otherwise specified. 7. Gastroesophageal reflux disease. 8. Chronic bulimia, uncontrolled. 9. Dehydration secondary to nausea and vomiting, improved. PLAN: Patient's blood glucose is dipping back down; has not had any hypoglycemic events but is not currently eating adequate meals and is on IV fluids to help support her blood sugar. Our plan was again to attempt to send her home today. Patient continues to have nausea and inability to eat. Reviewed appropriate choices with the patient. Patient again voiced concerns about blood in her urine, and questions were answered regarding this. Intravenous fluids will likely continue overnight, as this has helped the bleeding that she has been experiencing. Will continue to monitor. Discharge planning possibly tomorrow. Patient was seen and examined by nurse practitioner, Beth Bhatti, and all elements of the case were discussed with attending, Dr. English.
[2016-10-15 23:59] VITALS: RESP 16
[2016-10-16] MEDS: METOCLOPRAMIDE 5 MG/ML 2 ML VIAL IVP SCH ×3 (00:31→11:54)
[2016-10-16] MEDS: HYDROmorphone 1 MG/ML 1 ML SYRINGE IVP PRN ×4 (00:31→11:57)
[2016-10-16] MEDS: DEXTROSE 5%-0.45% NACL 1,000 ML IV SCH ×2 (01:25→08:45)
[2016-10-16 02:09] LABS: Glucose,Whole Blood 113 mg/dL (75-99)
[2016-10-16] MEDS: BUDESONIDE 0.5 MG/2 ML NEBU INHALATION SCH (07:06)
[2016-10-16 07:15] VITALS: BP 106/59; PULSE 69; TEMP 96.6
[2016-10-16 07:22] LABS: Glucose,Whole Blood 83 mg/dL (75-99)
[2016-10-16] MEDS: LEVOTHYROXINE 137 MCG TAB PO SCH (07:44)
[2016-10-16 09:02] LABS: Anion Gap 8 mmol/L; Blood Urea Nitrogen 11 mg/dL (7-17); Carbon Dioxide 27 mmol/L (22-30); Chloride 105 mmol/L (98-107); Glucose 143 mg/dL (74-99); Non-African American GFR(MDRD) >60 (>60 ml/min/1.73 sqM); Sodium 140 mmol/L (137-145)
[2016-10-16] MEDS: ARIPiprazole 5 MG TAB PO SCH (09:09)
[2016-10-16] MEDS: DESVENLAFAXINE SUCCINATE 50 MG TAB.ER.24H PO SCH (09:09)
[2016-10-16] MEDS: PREGABALIN 50 MG CAP PO SCH (09:09)
[2016-10-16] MEDS: FAMOTIDINE 20 MG TAB PO SCH (09:09)
[2016-10-16 09:12] LABS: Potassium 4.2 mmol/L (3.5-5.1)
--- NOTE | 2016-10-16 09:16 | PN ---
DATE OF SERVICE: 10/15/2016 ATTENDING NOTE: This patient was seen and reviewed by me. I reviewed the note from my nurse practitioner, Ms. Bhatti, discussed and agree with the same. Patient is status right kidney stone removal. Pain is better. Still has nausea, eating a little bit. Patient has been on a D5 at 0.45. Sugars running about 85 to 90. On exam, lungs with slight decreased breath sounds. CARDIOVASCULAR: First and second sounds are normal. ABDOMEN: Soft. ASSESSMENT: 1. Right renal colic, not much improved. 2. Hypoglycemia being treated by D5 at 0.45. PLAN: Patient will keep ( ). Explained to her that even with D5 at 0.45 sugars are running about 85, 90. Will start the fluid. Encourage the patient to increase her oral intake. If she does go to sugars today, then she can be discharged tomorrow. The patient is a high risk of getting hypoglycemia, recurrent.
[2016-10-16] MEDS ORDERED: LACTULOSE 20 GM/30 ML CUP PO ONE (11:00)
[2016-10-16 11:40] LABS: Glucose,Whole Blood 89 mg/dL (75-99)
[2016-10-16] MEDS: SCOPOLAMINE 1.5MG/72HR PATCH TRANSDERM SCH (11:54)
--- NOTE | 2016-10-17 09:10 | DS ---
DATE OF ADMISSION: 10/12/2016 DATE OF DISCHARGE: 10/16/2016 FINAL DIAGNOSES: 1. Right renal colic. 2. Persistent hypoglycemia. 3. Moderate persistent asthma. 4. Chronic low back pain. 5. Hypothyroidism, chronic. 6. Depression, not otherwise specified. 7. Chronic bulimia, uncontrolled. 8. Dehydration secondary to nausea and vomiting. Consultations with Dr. Hillman from urology, Dr. Wright from neurology and Dr. Huffman from ophthalmology. HOSPITAL COURSE: This patient presented with right kidney stone due for procedure. Patient presented within right flank pain which led to dehydration. Patient unable to keep any food down as a result. Patient developed severe hypoglycemia. Patient underwent lithotripsy for the right kidney stone. Patient's pain was improved. Patient's appetite improved. Patient's blood glucose improved. Patient developed unequal pupils for which neurology was consulted. Neurology will see the patient as an outpatient. CT scan was done, which showed no acute process. Patient had blurred vision for which ophthalmology was consulted. Ophthalmology will see the patient as an outpatient. Her vision improved quite on its own. By discharge, patient was eating better, able to keep food down, up and about in the hallways. Discussion was had with the patient about maintaining a proper diet and maintaining and monitoring her blood sugars. ON EXAM: ABDOMEN: Soft. Tender particularly to the right flank. Bowel sounds x4. Liver and spleen not palpable. CARDIOVASCULAR: First and second sounds normal. No edema. EYES: Pupils equal. Conjunctivae normal. DISCHARGE MEDICATIONS: 1. Xopenex 0.63 mg inhalation q.i.d. p.r.n. 2. Singulair 10 mg p.o. at bedtime. 3. Xopenex inhaler 2 puffs q.6 hours p.r.n. 4. Abilify 5 mg p.o. q.a.m. 5. Pristiq 100 mg p.o. q.a.m. 6. Depo-Provera 150 mg IM every 90 days. 7. Trazodone 50 to 100 mg p.o. at bedtime p.r.n. 8. Bisacodyl 5 mg p.o. daily p.r.n. 9. Fioricet 1 tab p.o. q.6 hours p.r.n. 10. Flunisolide 2 puffs inhalation b.i.d. 11. Naproxen 500 mg p.o. q.12 hours p.r.n. 12. Omalizumab 300 mg subcu every 30 days. 13. Ondansetron and ODT 4 mg p.o. q.8 hours p.r.n. 14. Levothyroxine sodium 137 mcg p.o. daily. 15. [place] 7.5/325 one tab p.o. q.6 hours p.r.n. 16. Pregabalin 1 tab p.o. t.i.d. 17. Famotidine 20 mg p.o. b.i.d. 18. Prednisone 10 mg p.o. daily p.r.n. Follow up with Dr. Gonzalez on 10/26/2016, Dr. Huffman in one week and Dr. Hillman on 10/18. DISCHARGE TIME: More than 35 minutes including discussion. Patient was seen and examined by nurse practitioner, Beth Bhatti, and all elements of the case discussed with attending, Dr. English.
--- NOTE | 2016-10-18 10:50 | DS ---
DATE OF ADMISSION: 10/12/2016 DATE OF DISCHARGE: 10/16/2016 Attending note: FINAL DIAGNOSES: 1. Right renal colic from a kidney stone. 2. Persistent hypoglycemia due to decreased oral intake. PROCEDURE: Cystoscopy with right retrograde pyelogram, right retroscopy with laser lithotripsy and a double-J stent placement and stone basketing. This is a patient with a right renal stone, continued with increased pain, nausea, vomiting, unable to keep any food down and ended up getting hypoglycemia. Was treated with D10. The above procedure was carried out by Dr. of Dr. Hillman, doing much better. Patient also a good bowel movement before discharge, tolerating a diet, sugars are doing better. On examination, LUNGS: Clear. CARDIOVASCULAR: First and second sounds normal. Patient is to follow up with Dr. Hillman and Dr. Gonzalez. More details in my [employer] notes.
== END 2016-10-16 13:03 | disposition home or self-care (01) | DRG 669 ==
LOC: EC 14:23 → 4MS4W 19:39 → OBSVTOIN 10-12 12:45
PROVIDERS: ADMIT Hospitalist; ATTEND Hospitalist
PROC: BT1D1ZZ Fluoroscopy of Right Kidney, Ureter and Bladder using Low Osmolar Contrast (ICD-10-PCS; principal; 2016-10-12 11:00)
PROC: 0T768DZ Dilation of Right Ureter with Intraluminal Device, Via Natural or Artificial Opening Endoscopic (ICD-10-PCS; principal; 2016-10-12 11:00)
PROC: 0TC38ZZ Extirpation of Matter from Right Kidney Pelvis, Via Natural or Artificial Opening Endoscopic (ICD-10-PCS; principal; 2016-10-12 11:00)
DX: N20.0 Calculus of kidney (principal); F50.2 Bulimia nervosa; E11.649 Type 2 diabetes mellitus with hypoglycemia without coma; E83.51 Hypocalcemia; E03.9 Hypothyroidism, unspecified; E86.0 Dehydration; F32.9 Major depressive disorder, single episode, unspecified; G89.29 Other chronic pain; H57.02 Anisocoria; J45.40 Moderate persistent asthma, uncomplicated; K21.9 Gastro-esophageal reflux disease without esophagitis; Z79.899 Other long term (current) drug therapy; Z87.11 Personal history of peptic ulcer disease; Z87.440 Personal history of urinary (tract) infections; Z98.84 Bariatric surgery status
CPT/HCPCS: 36415; 70460; 71020; 74000; 74150; 74420; 80048; 80053; 81001; 81025; 82150; 82365; 83690; 85025; 85027; 87086; 93970; 94640; 96361; 96374; 96375; 96376; 99285

== ENCOUNTER → 2016-10-23 | Outpatient (CLI) | payer OTHER ==
[2016-10-23 11:55] VITALS: BP 128/68; PULSE 88; RESP 18; TEMP 97.9
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
== END | disposition home or self-care (01) ==
LOC: PNWHC3 11:19
PROVIDERS: ATTEND Specialist
DX: M51.36 Other intervertebral disc degeneration, lumbar region (principal); M47.816 Spondylosis without myelopathy or radiculopathy, lumbar region; M46.96 Unspecified inflammatory spondylopathy, lumbar region; M51.24 Other intervertebral disc displacement, thoracic region; M46.1 Sacroiliitis, not elsewhere classified; J45.909 Unspecified asthma, uncomplicated; E11.649 Type 2 diabetes mellitus with hypoglycemia without coma; Z86.14 Personal history of Methicillin resistant Staphylococcus aureus infection; Z88.8 Allergy status to other drugs, medicaments and biological substances; Z91.048 Other nonmedicinal substance allergy status; F41.9 Anxiety disorder, unspecified; F32.9 Major depressive disorder, single episode, unspecified; Z79.891 Long term (current) use of opiate analgesic; F50.2 Bulimia nervosa; F51.4 Sleep terrors [night terrors]
CPT/HCPCS: 99211

== ENCOUNTER 2016-10-24 05:48 | Day surgery (SDC) | payer OTHER ==
[2016-10-24 06:52] VITALS: TEMP 98.3
[2016-10-24 07:10] LABS: Glucose,Whole Blood 90 mg/dL (75-99)
[2016-10-24] MEDS ORDERED: fentaNYL (PF) 50 MCG/ML 2 ML AMP ONE (07:10)
[2016-10-24] MEDS ORDERED: DEXAMETHASONE SOD PHOS (MDV) 100 MG/10 ML VIAL ONE (07:10)
[2016-10-24] MEDS ORDERED: MIDAZOLAM 2 MG/2 ML VIAL ONE (07:10)
[2016-10-24] MEDS ORDERED: IOHEXOL 180 MG/ML 1 ML ML ONE (07:10)
[2016-10-24] MEDS ORDERED: LIDOCAINE 1% 20 ML VIAL (10MG/ML) FOR IV START INTRADERMA ONE (07:11)
[2016-10-24] MEDS ORDERED: LACTATED RINGERS 1,000 ML IV SCH (07:15)
--- NOTE | 2016-10-24 07:35 | P.PCN ---
Date of Procedure: 10/24/16 Preoperative Diagnosis: Postoperative Diagnosis: Procedure(s) Performed: PREOPERATIVE DIAGNOSIS: 1- Thoracic Herniated Disc Diseases 2-Lumbar spondylosis with Facet arthropathy without myelopathy POSTOPERATIVE DIAGNOSIS: Same as preoperative diagnoses. PROCEDURE 1. Thoracic epidural steroid injection under fluoroscopic guidance at the T7-8 level. 2. Thoracic epidurogram. ANESTHESIA: Local with 1% lidocaine 3 ml and IV sedation with Versed 4 mg , and fentanyle 100 Mcg EBL: Minimal PROCEDURE INDICATION: The patient with mid back pain symptoms unresponsive to conservative treatment. Fluoroscopy was used to optimize visualization of the needle placement and to maximize safety. PROCEDURE DESCRIPTION / TECHNIQUE: The patient was seen and identified in the preoperative area. Risks, benefits , complications including but not limited to infections ,bleeding ,allergic reaction to the medications ,nerve damage and not complete pain releife , and alternatives were discussed with the patient. The patient agreed to proceed with the procedure and signed the consent. IV was started, and vital signs were stable. Patient was taken to the OR and time out was completed. The patient was placed in the prone position on procedure table and a pillow was placed under the abdomen to reduce lumbar lordosis. The Thoracic area was prepped and draped in the usual sterile fashion.ere closely monitored during the procedure. Conscious sedation was used during the procedure to decrease patients anxiety. Vital signs was monitered during the entire procedure. Using anterior-posterior fluoroscopy, the T7-8 interlaminar space was identified and the skin over this site was marked and then infiltrated with 1% lidocaine subcutaneously. Subsequently, a 20-gauge Tuohy epidural needle was inserted and advanced toward the epidural space using the ``Loss of resistance technique and guided by AP and lateral fluoroscopy. The correct needle position in the epidural space was verified with the injection of 2 mL of the water soluble contrast dye Omnipaque 180 contrast and observing an excellent epidurogram with the epidural spread of the dye, after negative aspiration for blood and CSF and in the absence of paresthesias. Again after negative aspiration, a 6 ml mixture containing 20 mg of Dexamethasone and 2 ml of preservative free Normal Saline, and 2 ml of preservative free lidocaine 1% solution was injected and a washout of epidurogram was seen. Needle was withdrawn intact, skin was cleansed, and bandages were applied. COMPLICATIONS: None DISPOSITION / PLANS: The patient was placed in a supine position and transferred to the recovery area in a stable condition for observation. There was no evidence of lower extremity motor or sensory deficit after the procedure. Patient was discharged from the recovery room after meeting discharge criteria. Home discharge instructions were given to the patient by the staff. The patient was reexamined prior to discharge. The patient will schedule a follow up in the clinic in 2-4 weeks. Implants: Indications for Procedure: Operative Findings: Description of Procedure:
--- NOTE | 2016-10-24 07:38 | FL ---
Fluoroscopy HISTORY: Pain 5 seconds fluoroscopy time supplied to the referring clinician. 1 intraoperative C-arm images docume nt the procedure. See dictated report from anesthesia.
[2016-10-24 07:58] VITALS: BP 125/59; PULSE 54; RESP 18
[2016-10-24] MEDS ORDERED: IV FLUID CONTINUATION 1,000 ML IV ONE (08:00)
== END 2016-10-24 08:03 | disposition home or self-care (01) ==
LOC: ORPAIN 05:48
PROVIDERS: ATTEND Specialist
DX: M51.24 Other intervertebral disc displacement, thoracic region (principal); M47.816 Spondylosis without myelopathy or radiculopathy, lumbar region; M46.96 Unspecified inflammatory spondylopathy, lumbar region
CPT/HCPCS: 81025; 62321; 99152; J2250; Q9965; J3010; J1100

== ENCOUNTER → 2016-11-21 | Day surgery (SDC) | payer OTHER ==
[2016-11-16 16:11] VITALS: BMI 28.3
[~2016-11-21] MED LIST changes: +DEXAMETHASONE SOD PHOS (MDV) 100 MG/10 ML VIAL ONE; +IOHEXOL 180 MG/ML 1 ML ML ONE; +LACTATED RINGERS 1,000 ML IV ONE; +LIDOCAINE 1% 20 ML VIAL (10MG/ML) FOR IV START INTRADERMA ONE; +MIDAZOLAM 2 MG/2 ML VIAL ONE; +ONDANSETRON 4 MG/2 ML VIAL ONE; +fentaNYL (PF) 50 MCG/ML 2 ML AMP ONE
[2016-11-21 06:48] VITALS: RESP 16; TEMP 92.4
--- NOTE | 2016-11-21 08:15 | FL ---
FLUOROSCOPY 56 seconds of fluoroscopy time were utilized during Pain Injection. 4 images document the procedure.
--- NOTE | 2016-11-21 08:28 | P.PCN ---
Date of Procedure: 11/21/16 Preoperative Diagnosis: Postoperative Diagnosis: Procedure(s) Performed: Implants: Surgeon: Dragan Cline Pathology: none sent Condition: stable Disposition: PACU Indications for Procedure: Operative Findings: Description of Procedure: PREOPERATIVE DIAGNOSIS: 1-Thoracic radiculitis. POSTOPERATIVE DIAGNOSIS: 1-Thoracic radiculitis. PROCEDURE 1. Thoracic epidural steroid injection under fluoroscopic guidance at the T6-T7 level. 2. Thoracic epidurogram. ANESTHESIA: Local with 1% lidocaine; IV sedation with Versed/fentanyl. EBL: Minimal PROCEDURE INDICATION: The patient with low back pain and radiculitis symptoms unresponsive to conservative treatment. Fluoroscopy was used to optimize visualization of the needle placement and to maximize safety. No use of blood thinners. PROCEDURE DESCRIPTION / TECHNIQUE: The patient was seen and identified in the preoperative area. Risks, benefits, complications, and alternatives were discussed with the patient, including but not limited to bleeding, infection, nerve damage, allergic reactions to medications, and incomplete pain relief. The patient agreed to proceed with the procedure and signed the consent after all questions were answered. IV was started, and vital signs were stable. Patient was taken to the OR and time out was completed to confirm patient position, procedure, laterality of pain, and allergies. The patient was placed in the prone position on procedure table. The mid-to-low thoracic area was prepped and draped in the usual sterile fashion. Critical pause was taken. Vital signs were closely monitored during the procedure. Conscious sedation was used during the procedure to decrease patients anxiety. Using anterior-posterior fluoroscopy, the T6-T7 interlaminar space was identified and the skin over this site was marked and then infiltrated with 1% lidocaine subcutaneously. Subsequently, a 20-gauge 3.5-inch Tuohy epidural needle was inserted and advanced toward the epidural space using the Loss of resistance technique and guided by AP and lateral fluoroscopy. The correct needle position in the epidural space was verified with the injection of 2 mL of the water soluble contrast dye Omnipaque 300 contrast and observing an epidurogram with the epidural spread of the dye, after negative aspiration for blood and CSF and in the absence of paresthesias. Again after negative aspiration, a 8 ml mixture containing 20 mg of PF Decadron and 3 ml of preservative free Normal Saline, and 2 ml of preservative free lidocaine 1% solution was injected and a washout of epidurogram was seen. Needle was withdrawn intact, skin was cleansed, and bandages were applied. COMPLICATIONS: None COMMENTS: DISPOSITION / PLANS: The patient was placed in a supine position and transferred to the recovery area in a stable condition for observation. There was no evidence of lower extremity motor or sensory deficit after the procedure. Patient was discharged from the recovery room after meeting discharge criteria. Home discharge instructions were given to the patient by the staff. The patient was reexamined prior to discharge and there were no issues. The patient will schedule a follow up in the clinic in 2-4 weeks. Of note, this procedure was technically challenging because of the patient's very small interlaminar openings in the thoracic spine.
[2016-11-21 08:39] VITALS: BP 110/72; PULSE 77
== END | disposition home or self-care (01) ==
LOC: ORPAIN 08:52
PROVIDERS: ATTEND Anesthesiology
DX: G89.29 Other chronic pain (principal); M54.14 Radiculopathy, thoracic region; E11.9 Type 2 diabetes mellitus without complications; E16.2 Hypoglycemia, unspecified; F41.9 Anxiety disorder, unspecified; F32.9 Major depressive disorder, single episode, unspecified; Z79.899 Other long term (current) drug therapy; Z88.8 Allergy status to other drugs, medicaments and biological substances; Z91.09 Other allergy status, other than to drugs and biological substances
CPT/HCPCS: 81025; 62321; 99152; 99153; J2250; Q9965; J2405; J3010; J1100

== ENCOUNTER 2016-11-22 17:31 | Emergency (ER) | payer OTHER ==
[2016-11-22] MEDS ORDERED: SODIUM CHLORIDE 0.9% 1,000 ML IV STA (18:37)
[2016-11-22] MEDS ORDERED: CAFFEINE CITRATE 60 MG/3 ML VIAL PO ONE (18:37)
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
[2016-11-22] MEDS ORDERED: CAFFEINE-SODIUM BENZOATE 500 MG in SODIUM CHLORIDE 0.9% 1,000 ML IV ONE (19:15)
[2016-11-22 20:04] VITALS: BP 114/70; PULSE 71; RESP 16
[2016-11-22 20:14] VITALS: TEMP 97.5
[2016-11-22] MEDS ORDERED: HYDROmorphone 1 MG/ML 1 ML SYRINGE IVP STA (20:25)
== END 2016-11-22 21:07 | disposition home or self-care (01) ==
LOC: EC 17:31
DX: G89.18 Other acute postprocedural pain (principal); R51 Headache; J45.909 Unspecified asthma, uncomplicated; F32.9 Major depressive disorder, single episode, unspecified; Z88.8 Allergy status to other drugs, medicaments and biological substances; Z91.048 Other nonmedicinal substance allergy status; Z79.899 Other long term (current) drug therapy
CPT/HCPCS: 99283; 96365; 96366; 96375; J1170

== ENCOUNTER 2016-11-28 13:28 | Observation (INO) | payer OTHER ==
[2016-11-28] MEDS ORDERED: HYDROmorphone 1 MG/ML 1 ML SYRINGE IVP STA ×2 (14:24→16:04)
[2016-11-28] MEDS ORDERED: ONDANSETRON 4 MG/2 ML VIAL IVP STA (14:24)
[2016-11-28] MEDS ORDERED: SODIUM CHLORIDE 0.9% 1,000 ML IV STA (14:24)
[2016-11-28] MEDS ORDERED: SODIUM CHLORIDE 0.9% 500 ML IV STA (14:24)
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
[2016-11-28 15:20] LABS: CH 33.4; CHCM 36.5; HCT 38.2 % (34.0-46.0); HDW 3.04; HGB 14.2 gm/dL (11.4-16.0); MCH 34.3 pg (25.0-35.0); MCHC 37.3 g/dL (31.0-37.0); MCV 91.9 fL (80.0-100.0); Mean Platelet Volume 7.1; RBC 4.15 m/uL (3.80-5.40); RDW 11.9 % (11.5-15.5); WBC 6.2 k/uL (3.8-10.6)
--- NOTE | 2016-11-28 15:26 | CT ---
EXAMINATION TYPE: CT brain wo con DATE OF EXAM: 11/28/2016 COMPARISON: 10/13/2016 HISTORY: CUEVA x1 week. CT DLP: 1019.[address] of the brain was performed. The ventricles, basal cisterns and sulci overlying the cerebral convexities demonstrate a normal appe arance. There is no evidence for intracranial hemorrhage or sulcal effacement. No mass effects are seen. Osseous calvarium is intact. If symptoms persist consider MRI as clinically warranted. IMPRESSION: 1. No acute intracranial process is seen at this time.
[2016-11-28] MEDS ORDERED: DEXAMETHASONE SOD PHOSPHATE 10 MG/ML 1 ML VIAL IV STA (16:03)
[2016-11-28] MEDS ORDERED: KETOROLAC 30 MG/ML 1 ML VIAL IVP STA (16:04)
[2016-11-28 17:26] LABS: Creatine Kinase 143 U/L (30-135)
[2016-11-28 17:39] LABS: Creatine Kinase MB 1.1 ng/mL (0.0-2.4); Troponin I <0.012 ng/mL (0.000-0.034)
[2016-11-28] MEDS ORDERED: ACETAMINOPHEN TAB 325 MG TAB PO PRN (18:24)
[2016-11-28] MEDS ORDERED: NALOXONE 0.4 MG/ML 1 ML VIAL IV PRN (18:24)
[2016-11-28] MEDS ORDERED: traZODone HCL 50 MG TAB PO PRN ×2 (18:31→21:19)
[2016-11-28] MEDS ORDERED: LEVALBUTEROL 0.63 MG INHALATION PRN (18:31)
[2016-11-28] MEDS ORDERED: BISACODYL 5 MG TABLET.DR PO PRN (18:31)
[2016-11-28] MEDS ORDERED: ONDANSETRON ODT 4 MG TAB PO PRN (18:31)
[2016-11-28] MEDS ORDERED: LEVALBUTEROL INHALATION PRN (18:31)
[2016-11-28] MEDS ORDERED: BUTALB/APAP/CAFF 50-325-40MG TAB PO PRN (18:31)
[2016-11-28] MEDS ORDERED: OMALIZUMAB 150 MG VIAL SQ SCH (18:45)
[2016-11-28] MEDS ORDERED: LEVALBUTEROL NEB 1.25 MG/3 ML AMP INHALATION PRN (19:08)
[2016-11-28] MEDS: BUDESONIDE 0.5 MG/2 ML NEBU INHALATION SCH (20:11)
[2016-11-28] MEDS: ONDANSETRON 4 MG/2 ML VIAL IVP PRN (20:25)
[2016-11-28] MEDS: HYDROmorphone 1 MG/ML 1 ML SYRINGE IV PRN ×2 (20:26→22:52)
[2016-11-28] MEDS ORDERED: MONTELUKAST 10 MG TAB PO SCH (21:00)
[2016-11-28] MEDS ORDERED: traZODone HCL 100 MG TAB PO PRN (21:00)
[2016-11-28 21:11] LABS: Glucose,Whole Blood 110 mg/dL (75-99)
[2016-11-28] MEDS: FAMOTIDINE 20 MG TAB PO SCH (21:21)
[2016-11-28] MEDS: PREGABALIN 50 MG CAP PO SCH (21:22)
[2016-11-29] MEDS: HYDROmorphone 1 MG/ML 1 ML SYRINGE IV PRN ×3 (02:10→08:18)
[2016-11-29] MEDS: ONDANSETRON 4 MG/2 ML VIAL IVP PRN (03:42)
[2016-11-29] MEDS ORDERED: LEVOTHYROXINE 137 MCG TAB PO SCH (06:30)
[2016-11-29 06:57] LABS: Glucose,Whole Blood 115 mg/dL (75-99)
[2016-11-29] MEDS: HYDROcodone/APAP 7.5-325MG 1 EACH TAB PO PRN ×2 (07:06→12:50)
[2016-11-29] MEDS: BUDESONIDE 0.5 MG/2 ML NEBU INHALATION SCH (08:05)
[2016-11-29] MEDS ORDERED: ARIPiprazole 5 MG TAB PO SCH (09:00)
[2016-11-29] MEDS ORDERED: DESVENLAFAXINE SUCCINATE 50 MG TAB.ER.24H PO SCH (09:00)
[2016-11-29 09:48] VITALS: RESP 16
[2016-11-29] MEDS ORDERED: IV FLUID CONTINUATION 1,000 ML IV ONE (09:50)
--- NOTE | 2016-11-29 10:41 | P.PCN ---
Date of Procedure: 11/29/16 Preoperative Diagnosis: Postoperative Diagnosis: Procedure(s) Performed: Procedure= Thoracic epidural blood patch under fluoroscopy guidance. Preoperative diagnosis= post dural puncture headache. Postoperative diagnoses= post dural puncture headache. Indication for the procedure= patient developed headache after Thoracic epidural steroid injection,the headache persisted in spite of conservative treatment, there is no focal neurological deficit, no fever, no neck stiffness, headache worse with sitting and standing position, and improved with lying supine, for this reason patient is a good candidate for epidural blood patch. anesthesia= IV sedation with Versed 2 mg ,and fentanyl 200 mcg ,and local infiltration with lidocaine 1% 3 mL. Complications= none. Description of the procedure= patient identified risks and benefits of the procedure explained to the patient and patient agreed with proceeding, vital signs monitored during the procedure and IV sedation given to decrease anxiety, and fluoroscopy used to optimize needle placement Back lumbar area prepped with chlorhexidine 3 times, then drape applied the local infiltration of the skin and subcutaneous tissue with lidocaine 1% 3 mL at T8-9 interlaminar space then 20-gauge Tuohy needle advanced slowly at T8-9 interlaminar space, There was positive loss of resistance to normal saline, no heme no paresthesia no cerebrospinal fluid, needle placement confirmed with injection of Omnipaque 180 mg per mL 3 mL injected, showed positive spread in the epidural space, then after that 15 of the blood taken from the patient under strict sterile technique , and after the left antecubital area prepped with a chlorhexidine 3 times using 18-gauge Angiocath, and under sterile technique the blood was injected in the epidural space after negative aspiration for heme or CSF ,and there was no paresthesia during the injections , then the needle removed intact the skin cleaned and the , bandage applied and patient discharged home in stable condition after discharge criteria met, and patient will follow up with the clinic in 2-4 weeks note =the blood patch was done at T8 9 level ,because the patient had thoracic epidural steroid injection done at T6 7 level, Implants: Indications for Procedure: Operative Findings: Description of Procedure:
--- NOTE | 2016-11-29 10:42 | FL ---
FLUOROSCOPY 3 seconds of fluoroscopy time were utilized during Pain Injection. 1 images document the procedure.
[2016-11-29 11:56] LABS: Glucose,Whole Blood 104 mg/dL (75-99)
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
[2016-11-29] MEDS: PREGABALIN 50 MG CAP PO SCH (12:53)
[2016-11-29] MEDS: FAMOTIDINE 20 MG TAB PO SCH (12:54)
[2016-11-29 14:18] VITALS: TEMP 98
[2016-11-29 14:20] VITALS: BP 103/57; PULSE 94
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
--- NOTE | 2016-11-30 17:17 | P.DS ---
Providers Date of admission: 11/28/16 18:26 Expected date of discharge: 11/29/16 Attending physician: Anthony English Consults: 11/28/16 18:24 Consult Physician Stat Consulting Provider: Salvatore Ariza Consult Reason/Comments: Chest pain Do you want consulting provider notified?: Yes Dr. Kelly from pain management/anesthesia Primary care physician: [facility] Course: This is a patient who just had a thoracic epidural done by Dr. Cline and started to severe spinal headaches and had to come in for the same. Patient received a blood patch in the lumbar area doing much better because of that. Started tolerating a diet. Patient had some nonspecific chest pain felt to be muscle spasm noncardiac in nature, as also determined by cardiology On examination abdomen soft nontender lungs are clear cardiovascular first seconds are normal Final diagnoses: -Severe post-lumbar puncture headache/cephalgia -Moderate persistent asthma -chronic low back pain from herniated disc having had a steroid injection a week ago -Chronic hypothyroidism next -depression not otherwise specified -Chronic bulimia Patient Condition at Discharge: Good Plan - Discharge Summary New Discharge Prescriptions: Continue Montelukast [Singulair] 10 mg PO HS Levalbuterol Nebulized [Xopenex Nebulized] 0.63 mg INHALATION RT-QID PRN PRN Reason: Dyspnea Levalbuterol Hfa Inhaler [Xopenex Hfa Inhaler] 2 puff INHALATION RT-Q6H PRN PRN Reason: Shortness Of Breath ARIPiprazole [Abilify] 5 mg PO QAM Medroxyprogesterone Acetate [Depo-Provera] 150 mg IM Q90D Desvenlafaxine Succinate [Pristiq] 100 mg PO QAM traZODone HCL [Desyrel] 100 mg PO HS PRN PRN Reason: Insomnia Butalb/APAP/Caff 50-325-40Mg [Fioricet 50-325-40] 1 tab PO Q6H PRN PRN Reason: Migraine Headache Omalizumab [Xolair] 300 mg SQ Q30D Flunisolide [Aerospan] 2 puff INHALATION RT-BID Bisacodyl 5 mg PO DAILY PRN PRN Reason: Constipation Ondansetron Odt [Zofran ODT] 4 mg PO Q8HR PRN #30 tab PRN Reason: Nausea And Vomiting Levothyroxine Sodium [Synthroid] 137 mcg PO DAILY Famotidine [Pepcid] 20 mg PO BID HYDROcodone/APAP 7.5-325MG [Lopez 7.5-325] 1 tab PO Q6HR PRN #120 tab PRN Reason: Pain Pregabalin [Lyrica] 50 mg PO TID Discharge Medication List Levalbuterol Nebulized [Xopenex Nebulized] 0.63 mg INHALATION RT-QID PRN [History] Montelukast [Singulair] 10 mg PO HS 09/30/13 [History] Levalbuterol Hfa Inhaler [Xopenex Hfa Inhaler] 2 puff INHALATION RT-Q6H PRN [History] ARIPiprazole [Abilify] 5 mg PO QAM 05/04/14 [History] Desvenlafaxine Succinate [Pristiq] 100 mg PO QAM 11/07/15 [History] Medroxyprogesterone Acetate [Depo-Provera] 150 mg IM Q90D 11/07/15 [History] traZODone HCL [Desyrel] 100 mg PO HS PRN 11/21/15 [History] Bisacodyl 5 mg PO DAILY PRN 06/28/16 [History] Butalb/APAP/Caff 50-325-40Mg [Fioricet 50-325-40] 1 tab PO Q6H PRN 06/28/16 [ History] Flunisolide [Aerospan] 2 puff INHALATION RT-BID 06/28/16 [History] Omalizumab [Xolair] 300 mg SQ Q30D 06/28/16 [History] Ondansetron Odt [Zofran ODT] 4 mg PO Q8HR PRN #30 tab 06/29/16 [Rx] Levothyroxine Sodium [Synthroid] 137 mcg PO DAILY 07/18/16 [History] Famotidine [Pepcid] 20 mg PO BID 10/02/16 [History] HYDROcodone/APAP 7.5-325MG [Lopez 7.5-325] 1 tab PO Q6HR PRN #120 tab 10/23/16 [ Rx] Pregabalin [Lyrica] 50 mg PO TID 11/22/16 [History] Follow up Appointment(s)/Referral(s): Slade Gonzalez MD [Primary Care Provider] - 3 Days Fabien Kelly MD [STAFF PHYSICIAN] - 1 Week Patient Instructions/Handouts: Migraine Headache (GEN) Discharge Disposition: HOME SELF-CARE
[2017-01-15] MEDS ORDERED: medroxyPROGESTERone 150 MG/ML 1ML VIAL IM SCH (12:00)
== END 2016-11-29 15:33 | disposition home or self-care (01) ==
LOC: EC 13:28 → 3OBS 18:26
PROVIDERS: ADMIT Hospitalist; ATTEND Hospitalist
DX: G97.1 Other reaction to spinal and lumbar puncture (principal); R07.89 Other chest pain; Y84.4 Aspiration of fluid as the cause of abnormal reaction of the patient, or of later complication, without mention of misadventure at the time of the procedure; J45.40 Moderate persistent asthma, uncomplicated; G89.29 Other chronic pain; M54.5 Low back pain; E03.9 Hypothyroidism, unspecified; F50.2 Bulimia nervosa; F32.9 Major depressive disorder, single episode, unspecified; Z88.8 Allergy status to other drugs, medicaments and biological substances; Z79.899 Other long term (current) drug therapy; Z91.048 Other nonmedicinal substance allergy status; J30.1 Allergic rhinitis due to pollen; Z86.14 Personal history of Methicillin resistant Staphylococcus aureus infection; F41.9 Anxiety disorder, unspecified; F51.4 Sleep terrors [night terrors]; Z98.84 Bariatric surgery status; K27.9 Peptic ulcer, site unspecified, unspecified as acute or chronic, without hemorrhage or perforation
CPT/HCPCS: 99285; 62273; 77003; 96374; 96375 ×4; 96376 ×4; 36415; 94640; 93005; 82550; 82553; 84484; 85027; 86140; 87040; 70450; G0378 ×2; J1100; J2405 ×2; J1885; J1170 ×2

== ENCOUNTER 2016-12-31 20:17 | Emergency (ER) | payer OTHER ==
--- NOTE | 2016-12-31 20:41 | ED ---
General Adult HPI - General Stated complaint: RT foot injury Time Seen by Provider: 12/31/16 20:25 Source: patient, family, RN notes reviewed Mode of arrival: ambulatory Limitations: no limitations - History of Present Illness Initial comments: 36 yo female presents to the ER with cc of right foot pain. [place] she is given crutches and sent home. Patient states now has pain and swelling to the right foot. Patient states that she did not hit her head there is no other injury. Pain is moderate. It is throbbing type pain. Worse to touch. Patient was concerned due to her symptoms so she thought that she should be seen.Patient denies any recent fever, chills, shortness of breath, chest pain, back pain, abdominal pain, nausea vomiting, numbness or tingling, dysuria or hematuria, constipation or diarrhea, headaches or visual changes, or any other current symptoms. - Related Data Home Medications Medication Instructions Recorded Confirmed Levalbuterol Nebulized [Xopenex 0.63 mg INHALATION RT-QID PRN 09/30/13 12/26/16 Nebulized] Montelukast [Singulair] 10 mg PO HS 09/30/13 12/26/16 Levalbuterol Hfa Inhaler [Xopenex 2 puff INHALATION RT-Q6H PRN 01/07/14 12/26/16 Hfa Inhaler] ARIPiprazole [Abilify] 5 mg PO QAM 05/04/14 12/26/16 Desvenlafaxine Succinate [Pristiq] 100 mg PO QAM 11/07/15 12/26/16 Medroxyprogesterone Acetate 150 mg IM Q90D 11/07/15 12/26/16 [Depo-Provera] traZODone HCL [Desyrel] 100 mg PO HS PRN 11/21/15 12/26/16 Bisacodyl 5 mg PO DAILY PRN 06/28/16 12/26/16 Butalb/APAP/Caff 50-325-40Mg 1 tab PO Q6H PRN 06/28/16 12/26/16 [Fioricet 50-325-40] Flunisolide [Aerospan] 2 puff INHALATION RT-BID 06/28/16 12/26/16 Omalizumab [Xolair] 300 mg SQ Q30D 06/28/16 12/26/16 Levothyroxine Sodium [Synthroid] 137 mcg PO DAILY 07/18/16 12/26/16 Famotidine [Pepcid] 20 mg PO BID 10/02/16 12/26/16 Pregabalin [Lyrica] 50 mg PO TID 11/22/16 12/26/16 Previous Rx's Medication Instructions Recorded Ondansetron Odt [Zofran ODT] 4 mg PO Q8HR PRN #30 tab 06/29/16 HYDROcodone/APAP 7.5-325MG [[place] 1 tab PO Q6HR PRN #120 tab 10/23/16 7.5-325] Allergies Allergy/AdvReac Type Severity Reaction Status Date / Time grass pollen-perennial rye, Allergy Dyspnea,cou Verified 11/28/16 20:52 standar gh,wheeze [grass poll-perennial rye,std] albuterol AdvReac Rapid Verified 11/28/16 20:52 Heart Rate pollen Allergy Dyspnea,cou Uncoded 11/28/16 20:52 gh,wheeze Review of Systems ROS Statement: Those systems with pertinent positive or pertinent negative responses have been documented in the HPI. ROS Other: All systems not noted in ROS Statement are negative. Past Medical History Past Medical History: Asthma, Thyroid Disorder Additional Past Medical History / Comment(s): hypoglycemia ,TACHYCARDIA, peptic ulcers, anemia."HAS BEEN ON VENTILATOR IN PAST D/T SEVERE ASTHMA ATTACK, BULEMIA-STATES GETTING BETTER,. CHRONIC BACK PAIN ,SEIZURES HAS SINCE BEEN TAKEN OFF MEDS, elevated blood sugar with steroid use and hypoglycemia when off steroids , "superficial blood clots" bilateral arms. History of Any Multi-Drug Resistant Organisms: MRSA Date of last positivie culture/infection: 08/25/14 MDRO Source:: Groin Past Surgical History: Bariatric Surgery, Cholecystectomy, Orthopedic Surgery, Tonsillectomy Additional Past Surgical History / Comment(s): tilt table test, lap band 2007; NASAL FX REPAIR , ORIF LT ELBOW X2, PAIN PROCEDURES Past Anesthesia/Blood Transfusion Reactions: Postoperative Nausea & Vomiting ( PONV) Past Psychological History: Anxiety, Depression Smoking Status: Never smoker - Past Family History Mother Family Medical History: Pneumonia Additional Family Medical History / Comment(s): Mother of pneumonia. Patient's son of brain cancer, last mother and father both liver cancer Son(s) Family Medical History: Cancer Additional Family Medical History / Comment(s): Son of brain cancer. Father Family Medical History: Cancer, Liver Disease Additional Family Medical History / Comment(s): Father has liver cancer with surgery. He has hepatitis. General Exam - General Exam Comments Initial Comments: General: The patient is awake and alert, in no distress, and does not appear acutely ill. Neck: The neck is supple, there is no tenderness. Cardiovascular: There is a regular rate and rhythm. No murmur, rub or gallop is appreciated. Respiratory: Lungs are clear to auscultation, respirations are non-labored, breath sounds are equal. No wheezes, stridor, rales, or rhonchi. Musculoskeletal: Sensation intact with 2+ pulses throughout the right lower extremity. Fund motion of right knee and ankle. There is diffuse swelling neck most this. Some tenderness to the lateral malleolus noted. Neurological: CN II-XII intact, There are no obvious motor or sensory deficits. Coordination appears grossly intact. Speech is normal. Skin: Skin is warm and dry and no rashes or lesions are noted. Psychiatric: Normal mood and affect. Limitations: no limitations Course Vital Signs 12/31/16 20:31 Temperature 98.3 F Pulse Rate 94 Respiratory 18 Rate Blood Pressure 143/78 Procedures - Orthopedic Splinting/Casting Injury #1 Side: right Lower Extremity Injury Location: foot Lower Extremity Immobilizer: posterior splint (short leg) Medical Decision Making - Medical Decision Making 36 yo female presents emergency room chief complaint of right ankle pain and swelling. At this time patient appears to have a right fifth metatarsal fracture. This time patient was placed in a short leg splint. We did discuss follow-up with discussed return parameters were discussed care. Patient is in agreement plan all questions have been answered. She will be discharged. - Radiology Data Radiology results: report reviewed, image reviewed Disposition Clinical Impression: Fracture of metatarsal of right foot, closed Disposition: HOME SELF-CARE Condition: Stable Instructions: Foot Fracture in Adults (ED) Additional Instructions: Please use medication as discussed. Please follow up with family doctor if symptoms have not improved over the next two days. Please return to the emergency room if your symptoms increase or worsen or for any other concerns. Referrals: Slade Gonzalez MD [Primary Care Provider] - 1-2 days Brock Knowles MD [STAFF PHYSICIAN] - 1-2 days Time of Disposition: 21:09
[2016-12-31 20:42] VITALS: BP 143/78; PULSE 94; RESP 18; TEMP 98.3
--- NOTE | 2016-12-31 20:59 | XR ---
EXAMINATION TYPE: XR foot complete RT, XR ankle complete RT DATE OF EXAM: 12/31/2016 CLINICAL HISTORY: Pain, bruising, and swelling of the lateral right foot after injury yesterday. TECHNIQUE: Frontal, lateral, and oblique images of the right foot are obtained. 3 views of the right ankle were obtained. COMPARISON: None FINDINGS: There is no acute fracture/dislocation evident in the right foot. The marginal osteophyte s are seen of the distal phalanges with minimal joint space narrowing. Minimally displaced and noncom minuted transversely oriented fracture of the base of the fifth metatarsal is present. Associated ove rlying soft tissue swelling is noted. No radiopaque foreign body. No subcutaneous emphysema. Ankle mortise joint spaces maintained. There is lateral soft tissue swelling over the hindfoot and mi dfoot. Mild soft tissue swelling is also seen around the ankle joint. Small plantar heel spur is note d. IMPRESSION: Nondisplaced fracture of the base of the fifth metatarsal with overlying soft tissue swel ling extending posteriorly into the ankle.
== END 2016-12-31 21:18 | disposition home or self-care (01) ==
LOC: EC 20:17
DX: S92.351A Displaced fracture of fifth metatarsal bone, right foot, initial encounter for closed fracture (principal); J45.909 Unspecified asthma, uncomplicated; E07.9 Disorder of thyroid, unspecified; F32.9 Major depressive disorder, single episode, unspecified; F41.9 Anxiety disorder, unspecified; Z87.11 Personal history of peptic ulcer disease; Z79.899 Other long term (current) drug therapy; Z88.8 Allergy status to other drugs, medicaments and biological substances; Z91.048 Other nonmedicinal substance allergy status; W10.9XXA Fall (on) (from) unspecified stairs and steps, initial encounter; Y92.89 Other specified places as the place of occurrence of the external cause
CPT/HCPCS: 29515; 99283

== ENCOUNTER → 2017-01-01 | Outpatient (CLI) | payer OTHER ==
--- NOTE | 2017-01-01 16:07 | US ---
EXAMINATION TYPE: US venous doppler duplex LE RT DATE OF EXAM: 01/01/2017 3:47 PM COMPARISON: 10/12/2016 CLINICAL HISTORY: M79.669 PAIN IN UNSPECIFIED LOWER LEG. SIDE PERFORMED: Right TECHNIQUE: The lower extremity deep venous system is examined utilizing real time linear array sonog bob with graded compression, doppler sonography and color-flow sonography. VESSELS IMAGED: External Iliac Vein (EIV) Common Femoral Vein Deep Femoral Vein Greater Saphenous Vein * Femoral Vein Popliteal Vein Small Saphenous Vein * Proximal Calf Veins (* superficial vessels) Right Leg: Negative for DVT IMPRESSION: 1. No diagnostic evidence of DVT as visualized.
== END | disposition home or self-care (01) ==
LOC: RADUSWWP 15:16
PROVIDERS: ATTEND Family Medicine
DX: M79.669 Pain in unspecified lower leg (principal)

== ENCOUNTER → 2017-01-03 | Outpatient (CLI) | payer OTHER ==
[2017-01-03 08:58] LABS: Basophils % (A) 1 %; CH 33.4; CHCM 35.2; Eosinophils # (A) 0.1 k/uL (0-0.7); Eosinophils % (A) 2 %; HCT 38.6 % (34.0-46.0); HDW 2.92; HGB 13.5 gm/dL (11.4-16.0); Luc # (Auto) 0.05; Luc % (Auto) 1; Lymphocytes % (A) 22 %; MCH 33.3 pg (25.0-35.0); MCHC 34.9 g/dL (31.0-37.0); MCV 95.4 fL (80.0-100.0); Mean Platelet Volume 6.6; Monocytes # (A) 0.2 k/uL (0-1.0); Monocytes % (A) 5 %; Neutrophils # (A) 3.1 k/uL (1.3-7.7); Neutrophils % (A) 69 %; RBC 4.05 m/uL (3.80-5.40); RDW 12.6 % (11.5-15.5); WBC 4.5 k/uL (3.8-10.6); WBC (Perox) 4.76
[2017-01-03 10:40] LABS: ALT 32 U/L (9-52); AST 20 U/L (14-36); Alkaline Phosphatase 58 U/L (38-126); Anion Gap 9 mmol/L; Blood Urea Nitrogen 12 mg/dL (7-17); Calcium 9.4 mg/dL (8.4-10.2); Carbon Dioxide 24 mmol/L (22-30); Chloride 108 mmol/L (98-107); Glucose 88 mg/dL (74-99); Non-African American GFR(MDRD) 56 (>60 ml/min/1.73 sqM); Potassium 4.7 mmol/L (3.5-5.1); Sodium 141 mmol/L (137-145); Total Bilirubin 0.6 mg/dL (0.2-1.3); Total Protein 6.2 g/dL (6.3-8.2)
== END | disposition home or self-care (01) ==
LOC: LABWHC1 08:37
PROVIDERS: ATTEND Orthopaedic Surgery
DX: E55.9 Vitamin D deficiency, unspecified (principal); E03.9 Hypothyroidism, unspecified; M79.669 Pain in unspecified lower leg
CPT/HCPCS: 36415; 80053; 82306; 84439; 84443; 84481; 85025

== ENCOUNTER → 2017-01-08 12:05 | Day surgery (SDC) | payer OTHER ==
[2017-01-08 09:13] VITALS: TEMP 96.4
[2017-01-08 10:31] VITALS: RESP 18
--- NOTE | 2017-01-08 10:37 | P.PCN ---
Date of Procedure: 01/08/17 Preoperative Diagnosis: Postoperative Diagnosis: Procedure(s) Performed: Implants: Surgeon: Dragan Cline Pathology: none sent Condition: stable Disposition: PACU Indications for Procedure: Operative Findings: Description of Procedure: PREOPERATIVE DIAGNOSIS: Cervical spondylosis without myelopathy and facet arthropathy POSTOPERATIVE DIAGNOSIS: Cervical spondylosis without myelopathy and facet arthropathy PROCEDURES: Radiofrequency thermocoagulation, C2-C3, C3-C4 medial branch and third occipital nerve, with fluoroscopic guidance, right ANESTHESIA: Local with 1% lidocaine; conscious sedation EBL: Minimal PROCEDURE INDICATION: The patient with neck pain secondary to cervical arthropathy who had more than 50% relief of her pain with previous diagnostic cervical medial branch block and previous good relief with cervical RFAs. No use of blood thinners. PROCEDURE DESCRIPTION / TECHNIQUE: The patient was seen and identified in the preoperative area. Risks, benefits, complications, and alternatives were discussed with the patient (with risks including but not limited to bleeding, infection, nerve damage, incomplete pain relief, and allergic reactions to medications), the patient agreed to proceed with the procedure and signed the informed consent after all questions were answered. IV was started. Vital signs remained stable throughout the procedure. Patient was taken to the OR and time out was completed. The patient was placed in the prone position on the procedure table. A pillow was placed under the patients chest to increase the cervical interlaminar space. The cervical area was prepped and draped in the usual sterile fashion. Critical pause was taken. Vital signs were closely monitored during the procedure. Conscious sedation was used during the procedure to decrease patients anxiety. Using cross-table lateral fluoroscopy, the centroid of the trapezoid of C2, C3, C4, C5, C6 were identified, marked, and localized with 1% lidocaine. Subsequently, a 21 gauge 100-mm radiofrequency cannula with a 5-mm active tip was advanced guided by fluoroscopy to the centroid of the trapezoid of C3, C4, and TON (at the C2-C3 facet joint) on the right side. Needle tip position was confirmed at the centroid of the trapezoids of C3, C4, and TON at C2-C3 facet joint with anteroposterior fluoroscopy. Each site then underwent sensory testing at 50 Hz and 0 to 1 volt and motor testing at 2 Hz and 0 to 3 volt with local stimulation, but no radicular symptoms down the arm. Thereafter C3, C4, and TON sites underwent radiofrequency thermocoagulation at 80 degrees celsius for 90 seconds after injecting 0.5 ml of PF lidocaine 1%. After thermocoagulation, 0.5 ml of the block solution containing 2 mL of preservative- free 1% lidocaine was injected at the C3, C4, and TON levels after negative aspiration of CSF and blood and with no paresthesias. Cannulas were retracted while injecting lidocaine 1% until the needle is out. Skin was cleansed and bandages were applied. COMPLICATIONS: No acute complications. COMMENTS: DISPOSITION / PLANS: The patient was placed in a supine position and transferred to the recovery area in a stable condition for observation and was discharged from the recovery room after meeting discharge criteria. Home discharge instructions given to the patient by the staff. The patient was reexamined prior to discharge. The patient will schedule a follow up in the clinic in 2-4 weeks. Patient was given prescriptions for [place] 7.5/325 #120 and Lyrica 50 mg #90, latter with one refill.
[2017-01-08 10:57] VITALS: BP 113/63; PULSE 91
--- NOTE | 2017-01-08 11:17 | FL ---
Fluoroscopy HISTORY: Pain 13 seconds fluoroscopy time supplied to the referring clinician. 2 intraoperative C-arm images docum ent the procedure. See dictated report from anesthesia.
[~2017-01-08 12:05] MED LIST changes: -DEXAMETHASONE SOD PHOS (MDV) 100 MG/10 ML VIAL ONE; +HYDROcodone/APAP 7.5-325MG 1 EACH TAB PO ONE; -IOHEXOL 180 MG/ML 1 ML ML ONE; +IV FLUID CONTINUATION 1,000 ML IV ONE; -MIDAZOLAM 2 MG/2 ML VIAL ONE; +ONDANSETRON 4 MG/2 ML VIAL IVP STA; -ONDANSETRON 4 MG/2 ML VIAL ONE; -fentaNYL (PF) 50 MCG/ML 2 ML AMP ONE
== END | disposition home or self-care (01) ==
LOC: ORPAIN 12:05
PROVIDERS: ATTEND Anesthesiology
DX: G89.29 Other chronic pain (principal); M47.812 Spondylosis without myelopathy or radiculopathy, cervical region; M46.92 Unspecified inflammatory spondylopathy, cervical region; Z88.8 Allergy status to other drugs, medicaments and biological substances; Z91.09 Other allergy status, other than to drugs and biological substances
CPT/HCPCS: 99152; 81025; 64633; 64634; J2250; J2405; J3010; 99153

== ENCOUNTER 2017-01-17 17:12 | Emergency (ER) | payer OTHER ==
[2017-01-17] MEDS ORDERED: MORPHINE SULFATE 2 MG/ML SYRINGE IVP STA (17:51)
[2017-01-17] MEDS ORDERED: diphenhydrAMINE 50 MG/ML 1 ML VIAL IVP STA (17:51)
[2017-01-17] MEDS ORDERED: ASPIRIN 81 MG CHEW PO STA (17:51)
[2017-01-17] MEDS ORDERED: SODIUM CHLORIDE 0.9% 500 ML IV STA (17:51)
[2017-01-17] MEDS ORDERED: ONDANSETRON 4 MG/2 ML VIAL IVP STA (17:52)
--- NOTE | 2017-01-17 18:14 | ED ---
General Adult HPI - General Chief complaint: Chest Pain Stated complaint: CHEST PAIN, LEFT SHOULDER PAIN, BLURRY VISION Time Seen by Provider: 01/17/17 17:43 Source: patient Mode of arrival: ambulatory Limitations: no limitations - History of Present Illness Initial comments: 36-year-old female patient presents to the emergency department today with multiple complaints. She states she has been having left-sided chest pain with radiation into her left shoulder and into her upper left arm for the last hour. She states it feels like a deep pressure, with sharp stabbing pains. Patient denies any radiation to her back. She denies any shortness of breath. States she does feel like her heart is racing but she has a history of tachycardia and she is treated by Dr. Rojas and Dr. [facility] at [facility] for this. Patient states she did vomit just prior to coming in, however denies any current nausea. Denies any sweats. Patient states that she also has a "pounding" headache and blurred vision but denies any neck pain. Patient states that she also has some left hand numbness. States his symptoms also started within the last hour. Patient denies any history of headaches other than when she had a spinal tap and subsequent spinal headache that required a blood patch. Denies any history of migraine headaches. She denies any fever, chills, dizziness, weakness, abdominal pain, constipation, diarrhea, hematuria, dysuria, urinary urgency or urinary frequency. - Related Data Home Medications Medication Instructions Recorded Confirmed Levalbuterol Nebulized [Xopenex 0.63 mg INHALATION RT-QID PRN 09/30/13 01/17/17 Nebulized] Montelukast [Singulair] 10 mg PO HS 09/30/13 01/17/17 Levalbuterol Hfa Inhaler [Xopenex 2 puff INHALATION RT-Q6H PRN 01/07/14 01/17/17 Hfa Inhaler] ARIPiprazole [Abilify] 5 mg PO QAM 05/04/14 01/17/17 Desvenlafaxine Succinate [Pristiq] 100 mg PO QAM 11/07/15 01/17/17 Medroxyprogesterone Acetate 150 mg IM Q90D 11/07/15 01/17/17 [Depo-Provera] traZODone HCL [Desyrel] 100 mg PO HS PRN 11/21/15 01/17/17 Bisacodyl 5 mg PO DAILY PRN 06/28/16 01/17/17 Butalb/APAP/Caff 50-325-40Mg 1 tab PO Q6H PRN 06/28/16 01/17/17 [Fioricet 50-325-40] Flunisolide [Aerospan] 2 puff INHALATION RT-BID 06/28/16 01/17/17 Omalizumab [Xolair] 300 mg SQ Q30D 06/28/16 01/17/17 Levothyroxine Sodium [Synthroid] 137 mcg PO QAM 07/18/16 01/17/17 Famotidine [Pepcid] 20 mg PO BID 10/02/16 01/17/17 Pregabalin [Lyrica] 50 mg PO TID 11/22/16 01/17/17 Diclofenac Sodium [Voltaren] 75 mg PO BID 01/17/17 01/17/17 predniSONE See Taper PO DAILY 01/17/17 01/17/17 Previous Rx's Medication Instructions Recorded Ondansetron Odt [Zofran ODT] 4 mg PO Q8HR PRN #30 tab 06/29/16 HYDROcodone/APAP 7.5-325MG [[place] 1 tab PO Q6HR PRN #120 tab 10/23/16 7.5-325] Allergies Allergy/AdvReac Type Severity Reaction Status Date / Time albuterol AdvReac Rapid Verified 01/17/17 17:27 Heart Rate Review of Systems ROS Statement: Those systems with pertinent positive or pertinent negative responses have been documented in the HPI. ROS Other: All systems not noted in ROS Statement are negative. Past Medical History Past Medical History: Asthma, Thyroid Disorder Additional Past Medical History / Comment(s): hypoglycemia ,TACHYCARDIA, peptic ulcers, anemia."HAS BEEN ON VENTILATOR IN PAST D/T SEVERE ASTHMA ATTACK, BULEMIA-STATES GETTING BETTER,. CHRONIC BACK PAIN ,SEIZURES HAS SINCE BEEN TAKEN OFF MEDS, elevated blood sugar with steroid use and hypoglycemia when off steroids , "superficial blood clots" bilateral arms. History of Any Multi-Drug Resistant Organisms: MRSA Date of last positivie culture/infection: 08/25/14 MDRO Source:: Groin Past Surgical History: Bariatric Surgery, Cholecystectomy, Orthopedic Surgery, Tonsillectomy Additional Past Surgical History / Comment(s): tilt table test, lap band 2008; NASAL FX REPAIR , ORIF LT ELBOW X2, PAIN PROCEDURES Past Anesthesia/Blood Transfusion Reactions: Postoperative Nausea & Vomiting ( PONV) Past Psychological History: Anxiety, Depression Smoking Status: Never smoker Past Alcohol Use History: None Reported Past Drug Use History: None Reported - Past Family History Mother Family Medical History: Pneumonia Additional Family Medical History / Comment(s): Mother of pneumonia. Patient's son of brain cancer, last mother and father both liver cancer Son(s) Family Medical History: Cancer Additional Family Medical History / Comment(s): Son of brain cancer. Father Family Medical History: Cancer, Liver Disease Additional Family Medical History / Comment(s): Father has liver cancer with surgery. He has hepatitis. General Exam Limitations: no limitations General appearance: alert, in no apparent distress Head exam: Present: atraumatic, normocephalic, normal inspection Eye exam: Present: normal appearance, PERRL, EOMI. Absent: scleral icterus, conjunctival injection, periorbital swelling ENT exam: Present: normal exam, normal oropharynx, mucous membranes moist Neck exam: Present: normal inspection. Absent: tenderness, meningismus, lymphadenopathy Respiratory exam: Present: normal lung sounds bilaterally. Absent: respiratory distress, wheezes, rales, rhonchi, stridor Cardiovascular Exam: Present: normal rhythm, tachycardia, normal heart sounds. Absent: regular rate, systolic murmur, diastolic murmur, rubs, gallop, clicks GI/Abdominal exam: Present: soft, normal bowel sounds. Absent: distended, tenderness, guarding, rebound, rigid Extremities exam: Present: normal inspection, full ROM, normal capillary refill , other (Patient is currently wearing an ortho boot for a right foot fracture.) . Absent: tenderness, pedal edema, joint swelling, calf tenderness Back exam: Present: normal inspection Neurological exam: Present: alert, oriented X3, CN II-XII intact, other Expanded Patient oriented to: Present: person, place, time Speech: Present: fluid speech Cranial nerves: EOM's Intact: Normal, Tongue Deviation: Normal, Nystagmus: Normal Motor strength exam: RUE: 5, LUE: 4, RLE: 5 Psychiatric exam: Present: normal affect, normal mood Skin exam: Present: warm, dry, intact, normal color. Absent: rash Course Vital Signs 01/17/17 01/17/17 01/17/17 17:25 18:40 18:51 Temperature 98.5 F Pulse Rate 123 H 123 H 125 H Respiratory 18 Rate Blood Pressure 132/80 O2 Sat by Pulse 99 Oximetry 01/17/17 01/17/17 01/17/17 18:55 19:00 19:44 Temperature Pulse Rate 102 H 99 102 H Respiratory 18 18 18 Rate Blood Pressure 147/71 127/65 125/65 O2 Sat by Pulse 98 100 100 Oximetry 01/17/17 01/17/17 01/17/17 19:55 19:59 20:32 Temperature 97.8 F Pulse Rate 102 H 86 100 Respiratory 18 18 15 Rate Blood Pressure 126/66 120/64 117/66 O2 Sat by Pulse 98 100 Oximetry - Reevaluation(s) Reevaluation #1: 01/17/17 18:23 Reevaluated patient due to new complaints of shortness of breath. Patient states that she is currently on steroid for asthma exacerbation. Forced expiratory wheeze noted while standing at bedside, auscultated lung sounds which are clear and equal bilaterally. Patient is requesting DuoNeb updraft treatment will order one and reevaluate once complete. EKG Findings - EKG Comments: EKG Findings:: EKG obtained at 1822 shows normal sinus rhythm with a ventricular rate of 96, when necessary interval 132, QRS duration 70, QT 328, QTC 414. Evidence of ST elevation or depression. Medical Decision Making - Medical Decision Making 36 year-old female patient presented to emergency department today with complaints of chest pain, headache, left arm numbness. Lab work was reviewed and showed no acute abnormalities. EKG was reviewed was normal sinus rhythm with no evidence of ST elevation or depression. CT of the brain was reviewed and showed no acute intracranial abnormalities. Patient symptoms did improve prior to discharge. Patient does have a history of asthma and is currently being treated with prednisone for an acute exacerbation. Patient was given a DuoNeb updraft treatment here in the department which did improve symptoms. 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 Instructed to return here immediately for any new, worsening, or concerning symptoms. Patient verbalizes understanding and agrees this plan. - Lab Data Result diagrams: 01/17/17 18:20 01/17/17 18:20 Lab Results 01/17/17 01/17/17 01/17/17 Range/Units 18:20 18:20 18:20 WBC 6.7 (3.8-10.6) k/uL RBC 4.07 (3.80-5.40) m/uL Hgb 13.9 (11.4-16.0) gm/dL Hct 38.8 (34.0-46.0) % MCV 95.4 (80.0-100.0) fL MCH 34.2 (25.0-35.0) pg MCHC 35.9 (31.0-37.0) g/dL RDW 12.8 (11.5-15.5) % Plt Count 229 (150-450) k/uL Neutrophils % 65 % Lymphocytes % 26 % Monocytes % 6 % Eosinophils % 1 % Basophils % 1 % Neutrophils # 4.3 (1.3-7.7) k/uL Lymphocytes # 1.7 (1.0-4.8) k/uL Monocytes # 0.4 (0-1.0) k/uL Eosinophils # 0.1 (0-0.7) k/uL Basophils # 0.1 (0-0.2) k/uL PT (9.0-12.0) sec INR (<1.2) APTT (22.0-30.0) sec D-Dimer (<0.60) mg/L FEU Sodium 142 (137-145) mmol/L Potassium 4.3 (3.5-5.1) mmol/L Chloride 109 H (98-107) mmol/L Carbon Dioxide 23 (22-30) mmol/L Anion Gap 10 mmol/L BUN 15 (7-17) mg/dL Creatinine 0.93 (0.52-1.04) mg/dL Est GFR (MDRD) Af Amer >60 (>60 ml/min/1.73 sqM) Est GFR (MDRD) Non-Af >60 (>60 ml/min/1.73 sqM) Glucose 81 (74-99) mg/dL Calcium 9.3 (8.4-10.2) mg/dL Magnesium 1.8 (1.6-2.3) mg/dL Total Bilirubin 0.5 (0.2-1.3) mg/dL AST 17 (14-36) U/L ALT 28 (9-52) U/L Alkaline Phosphatase 56 (38-126) U/L Total Creatine Kinase 93 (30-135) U/L CK-MB (CK-2) 1.0 (0.0-2.4) ng/mL CK-MB (CK-2) Rel Index 1.1 Troponin I <0.012 (0.000-0.034) ng/mL Total Protein 6.6 (6.3-8.2) g/dL Albumin 4.3 (3.5-5.0) g/dL 01/17/17 Range/Units 18:20 WBC (3.8-10.6) k/uL RBC (3.80-5.40) m/uL Hgb (11.4-16.0) gm/dL Hct (34.0-46.0) % MCV (80.0-100.0) fL MCH (25.0-35.0) pg MCHC (31.0-37.0) g/dL RDW (11.5-15.5) % Plt Count (150-450) k/uL Neutrophils % % Lymphocytes % % Monocytes % % Eosinophils % % Basophils % % Neutrophils # (1.3-7.7) k/uL Lymphocytes # (1.0-4.8) k/uL Monocytes # (0-1.0) k/uL Eosinophils # (0-0.7) k/uL Basophils # (0-0.2) k/uL PT 11.2 (9.0-12.0) sec INR 1.1 (<1.2) APTT 23.5 (22.0-30.0) sec D-Dimer 0.34 (<0.60) mg/L FEU Sodium (137-145) mmol/L Potassium (3.5-5.1) mmol/L Chloride (98-107) mmol/L Carbon Dioxide (22-30) mmol/L Anion Gap mmol/L BUN (7-17) mg/dL Creatinine (0.52-1.04) mg/dL Est GFR (MDRD) Af Amer (>60 ml/min/1.73 sqM) Est GFR (MDRD) Non-Af (>60 ml/min/1.73 sqM) Glucose (74-99) mg/dL Calcium (8.4-10.2) mg/dL Magnesium (1.6-2.3) mg/dL Total Bilirubin (0.2-1.3) mg/dL AST (14-36) U/L ALT (9-52) U/L Alkaline Phosphatase (38-126) U/L Total Creatine Kinase (30-135) U/L CK-MB (CK-2) (0.0-2.4) ng/mL CK-MB (CK-2) Rel Index Troponin I (0.000-0.034) ng/mL Total Protein (6.3-8.2) g/dL Albumin (3.5-5.0) g/dL - Radiology Data Radiology results: report reviewed, image reviewed CT of the brain shows no evidence for intracranial hemorrhage or sulcal effacement. The ventricles, basal cisterns and sulci overlying the cerebral convexities demonstrated normal appearance. No mass effects are seen. Osseous calvarium is intact. Impression by Dr. Robertson shows no acute intracranial process is seen at this time. Two-view x-ray of the chest shows no focal airspace opacity, pleural effusion, or pneumothorax is seen. The cardiac silhouette size is within normal limits. The osseous structures are intact. Impression by Dr. Robertson shows no acute cardiac process. 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 Continue taking steroids for asthma. Follow up with her primary care physician for recheck in 1-2 days. Return immediately for any new, worsening, or concerning symptoms. Referrals: Slade Gonzalez MD [Primary Care Provider] - 1-2 days Paarg Rojas MD [STAFF PHYSICIAN] - 1-2 days Time of Disposition: 20:09
[2017-01-17] MEDS ORDERED: IPRATROPIUM-ALBUTEROL 3 ML NEB INHALATION STA (18:23)
[2017-01-17 18:32] LABS: Basophils # (A) 0.1 k/uL (0-0.2); Basophils % (A) 1 %; CH 34.7; CHCM 36.6; Eosinophils # (A) 0.1 k/uL (0-0.7); Eosinophils % (A) 1 %; HCT 38.8 % (34.0-46.0); HDW 2.78; HGB 13.9 gm/dL (11.4-16.0); Luc # (Auto) 0.13; Luc % (Auto) 2; Lymphocytes # (A) 1.7 k/uL (1.0-4.8); Lymphocytes % (A) 26 %; MCH 34.2 pg (25.0-35.0); MCHC 35.9 g/dL (31.0-37.0); MCV 95.4 fL (80.0-100.0); Mean Platelet Volume 7.8; Monocytes # (A) 0.4 k/uL (0-1.0); Monocytes % (A) 6 %; Neutrophils # (A) 4.3 k/uL (1.3-7.7); Neutrophils % (A) 65 %; RBC 4.07 m/uL (3.80-5.40); RDW 12.8 % (11.5-15.5); WBC 6.7 k/uL (3.8-10.6); WBC (Perox) 6.43
[2017-01-17 18:49] LABS: ALT 28 U/L (9-52); AST 17 U/L (14-36); Alkaline Phosphatase 56 U/L (38-126); Anion Gap 10 mmol/L; Blood Urea Nitrogen 15 mg/dL (7-17); Calcium 9.3 mg/dL (8.4-10.2); Carbon Dioxide 23 mmol/L (22-30); Chloride 109 mmol/L (98-107); Glucose 81 mg/dL (74-99); Magnesium 1.8 mg/dL (1.6-2.3); Non-African American GFR(MDRD) >60 (>60 ml/min/1.73 sqM); Potassium 4.3 mmol/L (3.5-5.1); Sodium 142 mmol/L (137-145); Total Bilirubin 0.5 mg/dL (0.2-1.3); Total Protein 6.6 g/dL (6.3-8.2)
[2017-01-17 18:53] LABS: Creatine Kinase 93 U/L (30-135)
[2017-01-17 19:00] LABS: INR 1.1 (<1.2); Partial Thromboplastin Time 23.5 sec (22.0-30.0); Prothrombin Time 11.2 sec (9.0-12.0)
[2017-01-17 19:05] LABS: Troponin I <0.012 ng/mL (0.000-0.034)
--- NOTE | 2017-01-17 19:34 | XR ---
EXAMINATION TYPE: XR chest 2V DATE OF EXAM: 01/17/2017 CLINICAL HISTORY: Shortness of breath TECHNIQUE: Frontal and lateral views of the chest are obtained. COMPARISON: 10/09/2016 FINDINGS: There is no focal air space opacity, pleural effusion, or pneumothorax seen. The cardiac silhouette size is within normal limits. The osseous structures are intact. IMPRESSION: No acute cardiopulmonary process.
[2017-01-17] MEDS: NITROGLYCERIN SL TABS 0.4 MG TAB SUBLINGUAL PRN ×2 (19:46→19:57)
--- NOTE | 2017-01-17 19:49 | CT ---
EXAMINATION TYPE: CT brain wo con DATE OF EXAM: 01/17/2017 COMPARISON: 11/28/16 HISTORY: CUEVA CT DLP: 931.[address] of the brain was performed. The ventricles, basal cisterns and sulci overlying the cerebral convexities demonstrate a normal appe arance. There is no evidence for intracranial hemorrhage or sulcal effacement. No mass effects are seen. Osseous calvarium is intact. If symptoms persist consider MRI as clinically warranted. IMPRESSION: 1. No acute intracranial process is seen at this time.
[2017-01-17 20:32] VITALS: BP 117/66; PULSE 100; RESP 15; TEMP 97.8
== END 2017-01-17 20:35 | disposition home or self-care (01) ==
LOC: EC 17:12
DX: J45.909 Unspecified asthma, uncomplicated (principal); R07.9 Chest pain, unspecified; E07.9 Disorder of thyroid, unspecified; F32.9 Major depressive disorder, single episode, unspecified; F41.9 Anxiety disorder, unspecified; Z79.51 Long term (current) use of inhaled steroids; Z79.52 Long term (current) use of systemic steroids; Z79.899 Other long term (current) drug therapy; Z88.8 Allergy status to other drugs, medicaments and biological substances
CPT/HCPCS: 36415; 94640; 93005; 85379; 80053; 82550; 82553; 83735; 84484; 85025; 85610; 85730; 71020; 70450; 99285; 96374; 96375 ×2; J1200; J2405; J2270

== ENCOUNTER 2017-01-18 13:40 | Observation (INO) | payer OTHER ==
[2017-01-18] MEDS ORDERED: SODIUM CHLORIDE 0.9% 500 ML IV STA (14:01)
[2017-01-18] MEDS ORDERED: ALBUTEROL NEBULIZED 2.5 MG/3 ML INHALATION STA (14:01)
[2017-01-18] MEDS ORDERED: IPRATROPIUM 0.5 MG/2.5 ML NEBU INHALATION STA (14:01)
[2017-01-18] MEDS ORDERED: LEVALBUTEROL NEB (CONC) 1.25 MG/0.5 ML AMP INHALATION STA (14:20)
[2017-01-18 14:27] LABS: Basophils % (A) 1 %; CH 34.7; Eosinophils # (A) 0.2 k/uL (0-0.7); Eosinophils % (A) 4 %; HCT 37.9 % (34.0-46.0); HDW 2.78; HGB 13.3 gm/dL (11.4-16.0); Luc % (Auto) 2; Lymphocytes # (A) 1.5 k/uL (1.0-4.8); Lymphocytes % (A) 25 %; MCH 33.9 pg (25.0-35.0); MCHC 35.1 g/dL (31.0-37.0); MCV 96.6 fL (80.0-100.0); Mean Platelet Volume 7.4; Monocytes # (A) 0.3 k/uL (0-1.0); Monocytes % (A) 5 %; Neutrophils # (A) 3.7 k/uL (1.3-7.7); Neutrophils % (A) 64 %; RBC 3.93 m/uL (3.80-5.40); RDW 13.1 % (11.5-15.5); WBC 5.8 k/uL (3.8-10.6); WBC (Perox) 5.93
[2017-01-18 14:35] LABS: Partial Thromboplastin Time 22.8 sec (22.0-30.0); Prothrombin Time 10.5 sec (9.0-12.0)
[2017-01-18 14:36] LABS: ALT 27 U/L (9-52); AST 17 U/L (14-36); Alkaline Phosphatase 50 U/L (38-126); Anion Gap 10 mmol/L; Blood Urea Nitrogen 17 mg/dL (7-17); Carbon Dioxide 23 mmol/L (22-30); Chloride 110 mmol/L (98-107); Glucose 84 mg/dL (74-99); Magnesium 1.7 mg/dL (1.6-2.3); Non-African American GFR(MDRD) >60 (>60 ml/min/1.73 sqM); Potassium 4.3 mmol/L (3.5-5.1); Sodium 143 mmol/L (137-145); Total Bilirubin 0.4 mg/dL (0.2-1.3); Total Protein 6.4 g/dL (6.3-8.2)
[2017-01-18 14:44] LABS: Creatine Kinase 87 U/L (30-135)
[2017-01-18 14:57] LABS: Creatine Kinase MB 0.9 ng/mL (0.0-2.4); Troponin I <0.012 ng/mL (0.000-0.034)
[2017-01-18] MEDS ORDERED: MORPHINE SULFATE 4 MG/ML SYRINGE IVP PRN (15:47)
--- NOTE | 2017-01-18 15:57 | ED ---
General Adult HPI - General Chief complaint: Chest Pain Stated complaint: chest pain Time Seen by Provider: 01/18/17 13:48 Source: patient, RN notes reviewed, old records reviewed Mode of arrival: ambulatory Limitations: no limitations - History of Present Illness Initial comments: 36 yo female with past medical history of asthma presents with a 2 day history of cough and difficulty breathing. Patient also reports chest pain and back pain which is sharp in nature. Nonradiating. Describes it as initially left and central, progressing to bilateral pain. She has had a severe cough. Patient does state this feels like her asthma. She was seen in the emergency department yesterday given albuterol and steroids. This did help her breathing , however today her breathing is worsened, not improved with eating treatments. She has been on 3 days of outpatient steroids. Patient also has additional past medical history of tachycardia, she is uncertain of the cause of this. - Related Data Home Medications Medication Instructions Recorded Confirmed Levalbuterol Nebulized [Xopenex 0.63 mg INHALATION RT-QID PRN 09/30/13 01/18/17 Nebulized] Montelukast [Singulair] 10 mg PO HS 09/30/13 01/18/17 Levalbuterol Hfa Inhaler [Xopenex 2 puff INHALATION RT-Q6H PRN 01/07/14 01/18/17 Hfa Inhaler] ARIPiprazole [Abilify] 5 mg PO QAM 05/04/14 01/18/17 Desvenlafaxine Succinate [Pristiq] 100 mg PO QAM 11/07/15 01/18/17 Medroxyprogesterone Acetate 150 mg IM Q90D 11/07/15 01/18/17 [Depo-Provera] traZODone HCL [Desyrel] 100 mg PO HS PRN 11/21/15 01/18/17 Bisacodyl 5 mg PO DAILY PRN 06/28/16 01/18/17 Butalb/APAP/Caff 50-325-40Mg 1 tab PO Q6H PRN 06/28/16 01/18/17 [Fioricet 50-325-40] Flunisolide [Aerospan] 2 puff INHALATION RT-BID 06/28/16 01/18/17 Omalizumab [Xolair] 300 mg SQ Q30D 06/28/16 01/18/17 Levothyroxine Sodium [Synthroid] 137 mcg PO QAM 07/18/16 01/18/17 Famotidine [Pepcid] 20 mg PO BID 10/02/16 01/18/17 Pregabalin [Lyrica] 50 mg PO TID 11/22/16 01/18/17 Diclofenac Sodium [Voltaren] 75 mg PO BID 01/17/17 01/18/17 predniSONE See Taper PO DAILY 01/17/17 01/18/17 Previous Rx's Medication Instructions Recorded Ondansetron Odt [Zofran ODT] 4 mg PO Q8HR PRN #30 tab 06/29/16 HYDROcodone/APAP 7.5-325MG [[place] 1 tab PO Q6HR PRN #120 tab 10/23/16 7.5-325] Allergies Allergy/AdvReac Type Severity Reaction Status Date / Time albuterol AdvReac Rapid Verified 01/18/17 14:35 Heart Rate Review of Systems ROS Statement: Those systems with pertinent positive or pertinent negative responses have been documented in the HPI. ROS Other: All systems not noted in ROS Statement are negative. Past Medical History Past Medical History: Asthma, Thyroid Disorder Additional Past Medical History / Comment(s): hypoglycemia ,TACHYCARDIA, peptic ulcers, anemia."HAS BEEN ON VENTILATOR IN PAST D/T SEVERE ASTHMA ATTACK, BULEMIA-STATES GETTING BETTER,. CHRONIC BACK PAIN ,SEIZURES HAS SINCE BEEN TAKEN OFF MEDS, elevated blood sugar with steroid use and hypoglycemia when off steroids , "superficial blood clots" bilateral arms. History of Any Multi-Drug Resistant Organisms: MRSA Date of last positivie culture/infection: 08/25/14 MDRO Source:: Groin Past Surgical History: Bariatric Surgery, Cholecystectomy, Orthopedic Surgery, Tonsillectomy Additional Past Surgical History / Comment(s): tilt table test, lap band 2007; NASAL FX REPAIR , ORIF LT ELBOW X2, PAIN PROCEDURES Past Anesthesia/Blood Transfusion Reactions: Postoperative Nausea & Vomiting ( PONV) Past Psychological History: Anxiety, Depression Smoking Status: Never smoker Past Alcohol Use History: None Reported Past Drug Use History: None Reported - Past Family History Mother Family Medical History: Pneumonia Additional Family Medical History / Comment(s): Mother of pneumonia. Patient's son of brain cancer, last mother and father both liver cancer Son(s) Family Medical History: Cancer Additional Family Medical History / Comment(s): Son of brain cancer. Father Family Medical History: Cancer, Liver Disease Additional Family Medical History / Comment(s): Father has liver cancer with surgery. He has hepatitis. General Exam Limitations: no limitations General appearance: alert, in distress Head exam: Present: atraumatic, normocephalic Eye exam: Present: normal appearance, PERRL ENT exam: Present: normal exam, mucous membranes moist Neck exam: Present: normal inspection. Absent: tenderness, meningismus Respiratory exam: Present: respiratory distress, wheezes, chest wall tenderness , prolonged expiratory Cardiovascular Exam: Present: normal rhythm, tachycardia Rectal exam: Present: deferred Extremities exam: Present: normal inspection, normal capillary refill, other ( Patient does have a walking boot on her right foot.). Absent: pedal edema Back exam: Present: normal inspection Neurological exam: Present: alert, oriented X3, CN II-XII intact. Absent: motor sensory deficit Psychiatric exam: Present: normal affect, normal mood Skin exam: Present: warm, dry, intact. Absent: cyanosis, diaphoretic Course Vital Signs 01/18/17 01/18/17 01/18/17 13:43 14:19 14:20 Temperature 97.5 F L 97.5 F L Pulse Rate 120 H 104 H 109 H Pulse Rate [ 104 H [employer] Re[employer] ] Respiratory 18 20 Rate Blood Pressure 131/69 119/67 O2 Sat by Pulse 97 96 Oximetry 01/18/17 01/18/17 14:29 15:23 Temperature 98.2 F Pulse Rate 99 87 Pulse Rate [ [employer] Re[employer]ist ] Respiratory 18 Rate Blood Pressure 117/75 O2 Sat by Pulse 96 Oximetry - Reevaluation(s) Reevaluation #1: 01/18/17 15:54 Patient is given Xopenex, and Atrovent, reevaluation she still having trouble breathing, also has significant pain. EKG Findings - EKG Comments: EKG Findings:: EKG shows normal sinus rhythm with a ventricular rate 87, ID interval 136, castration 92, QTC 418, there is no signs of ischemia Medical Decision Making - Medical Decision Making 36 yo female presenting with 2 days of cough, difficulty breathing, sharp chest pain. Patient has significant medical history of multiple observation for asthma including intubation. She was seen yesterday and left with steroids and breathing treatments. These have only helped minimally over the past 24 hours. On examination patient states bronchus spastic cough with end expiratory wheeze. She does have reproducible chest pain on examination. EKG is nonischemic. Laboratory studies including CBC, CMP are unremarkable. Chest x-ray was obtained at yesterday's ER visit and was negative for infiltrate. D- dimer was also obtained at that time and was negative. Patient is only minimally improved after breathing treatment and steroids prior she will placed in observation for continued treatment of her asthma exacerbation. - Lab Data Result diagrams: 01/18/17 14:15 01/18/17 14:15 Lab Results 01/18/17 01/18/17 01/18/17 Range/Units 14:15 14:15 14:15 WBC 5.8 (3.8-10.6) k/uL RBC 3.93 (3.80-5.40) m/uL Hgb 13.3 (11.4-16.0) gm/dL Hct 37.9 (34.0-46.0) % MCV 96.6 (80.0-100.0) fL MCH 33.9 (25.0-35.0) pg MCHC 35.1 (31.0-37.0) g/dL RDW 13.1 (11.5-15.5) % Plt Count 207 (150-450) k/uL Neutrophils % 64 % Lymphocytes % 25 % Monocytes % 5 % Eosinophils % 4 % Basophils % 1 % Neutrophils # 3.7 (1.3-7.7) k/uL Lymphocytes # 1.5 (1.0-4.8) k/uL Monocytes # 0.3 (0-1.0) k/uL Eosinophils # 0.2 (0-0.7) k/uL Basophils # 0.0 (0-0.2) k/uL PT (9.0-12.0) sec INR (<1.2) APTT (22.0-30.0) sec Sodium 143 (137-145) mmol/L Potassium 4.3 (3.5-5.1) mmol/L Chloride 110 H (98-107) mmol/L Carbon Dioxide 23 (22-30) mmol/L Anion Gap 10 mmol/L BUN 17 (7-17) mg/dL Creatinine 0.93 (0.52-1.04) mg/dL Est GFR (MDRD) Af Amer >60 (>60 ml/min/1.73 sqM) Est GFR (MDRD) Non-Af >60 (>60 ml/min/1.73 sqM) Glucose 84 (74-99) mg/dL Calcium 9.0 (8.4-10.2) mg/dL Magnesium 1.7 (1.6-2.3) mg/dL Total Bilirubin 0.4 (0.2-1.3) mg/dL AST 17 (14-36) U/L ALT 27 (9-52) U/L Alkaline Phosphatase 50 (38-126) U/L Total Creatine Kinase 87 (30-135) U/L CK-MB (CK-2) 0.9 (0.0-2.4) ng/mL CK-MB (CK-2) Rel Index 1.0 Troponin I <0.012 (0.000-0.034) ng/mL Total Protein 6.4 (6.3-8.2) g/dL Albumin 4.2 (3.5-5.0) g/dL 01/18/17 Range/Units 14:15 WBC (3.8-10.6) k/uL RBC (3.80-5.40) m/uL Hgb (11.4-16.0) gm/dL Hct (34.0-46.0) % MCV (80.0-100.0) fL MCH (25.0-35.0) pg MCHC (31.0-37.0) g/dL RDW (11.5-15.5) % Plt Count (150-450) k/uL Neutrophils % % Lymphocytes % % Monocytes % % Eosinophils % % Basophils % % Neutrophils # (1.3-7.7) k/uL Lymphocytes # (1.0-4.8) k/uL Monocytes # (0-1.0) k/uL Eosinophils # (0-0.7) k/uL Basophils # (0-0.2) k/uL PT 10.5 (9.0-12.0) sec INR 1.0 (<1.2) APTT 22.8 (22.0-30.0) sec Sodium (137-145) mmol/L Potassium (3.5-5.1) mmol/L Chloride (98-107) mmol/L Carbon Dioxide (22-30) mmol/L Anion Gap mmol/L BUN (7-17) mg/dL Creatinine (0.52-1.04) mg/dL Est GFR (MDRD) Af Amer (>60 ml/min/1.73 sqM) Est GFR (MDRD) Non-Af (>60 ml/min/1.73 sqM) Glucose (74-99) mg/dL Calcium (8.4-10.2) mg/dL Magnesium (1.6-2.3) mg/dL Total Bilirubin (0.2-1.3) mg/dL AST (14-36) U/L ALT (9-52) U/L Alkaline Phosphatase (38-126) U/L Total Creatine Kinase (30-135) U/L CK-MB (CK-2) (0.0-2.4) ng/mL CK-MB (CK-2) Rel Index Troponin I (0.000-0.034) ng/mL Total Protein (6.3-8.2) g/dL Albumin (3.5-5.0) g/dL Disposition Clinical Impression: Asthma, Asthma exacerbation Disposition: ADMITTED IP TO THIS [facility] Condition: Stable Referrals: Slade Gonzalez MD [Primary Care Provider] - 1-2 days Decision to Admit Reason: Admit from EC Decision Date: 01/18/17 Decision Time: 15:57
[2017-01-18] MEDS: KETOROLAC 30 MG/ML 1 ML VIAL IVP SCH (16:15)
[2017-01-18] MEDS: SODIUM CHLORIDE 0.9% 1,000 ML IV SCH (16:16)
[2017-01-18] MEDS ORDERED: BUTALB/APAP/CAFF 50-325-40MG TAB PO PRN (17:51)
--- NOTE | 2017-01-18 18:06 | P.HPIM ---
History of Present Illness H&P Date: 01/18/17 Chief Complaint: Short of breath History of presenting complaint: This is a pleasant patient known to me from prior admissions. Chronic stable medical conditions include hypothyroid, depression, GERD, bulimia. Patient for 2 days having increasing wheezing cough congested but able to cough (she causing his severe she gets pain across the chest and the throat. Denies any fever appetite is maintained. She called her cleaner industrial Dr. Jalloh who increased her prednisone to 60 yesterday didn't have much relief hence she decided to come in. Recently on a cruise while dancing she fell and injured his right foot metatarsal got a brace on the right lower extremity. Review of systems: GEN.: Tired EYES: None HEENT: None NECK: None RESPIRATORY: As above CARDIOVASCULAR: None GASTROINTESTINAL: GENITOURINARY: None MUSCULOSKELETAL: Chronic low back pain LYMPHATICS: None HEMATOLOGICAL: None PSYCHIATRY: Some anxiety NEUROLOGICAL: As above Past medical history: Diet-controlled diabetes with episodes of hypoglycemia, peptic ulcer, asthma, bulimia, LAP-BAND, DJD, herniated disc and cervical and back with chronic pain, patient over the spine, 2 seizures, superficial blood clots in both the arms Past surgical history: Pediatrics surgery, cholecystectomy, orthopedic surgery, tonsillectomy, ORIF left elbow 2 multiple pain procedures, vaginal surgery for MRSA tunneling, lap alcon, tonsillectomy Family history: Last the second of brain cancer lost her mother to infection of the father to liver cancer. Social history: Has 2 daughters at home 3 and 11. No smoking. Alcohol occasionally Home medications: Reviewed in the computer ALLERGIES: Albuterol VITAL SIGNS: 98, CK 78, 18, 110/64, 96% room air GENERAL: Average built, sitting up, comfortable. EYES: Pupils equal. Conjunctiva normal. HEENT: External appearance of nose and ears normal, oral cavity grossly normal. NECK: JVD not raised; masses not palpable. HEART: First and second heart sounds are normal; no edema. LUNGS: Respiratory rate increased, decreased breath sounds prolonged expiration and wheezing. ABDOMEN: Soft, nontender, liver spleen not palpable, no masses palpable. LYMPHATICS: No lymph nodes palpable in the axilla and neck. PSYCH: Alert and oriented x3; mood and affect anxious MUSCULOSKELETAL: Right leg in a bracel. NEUROLOGICAL: Cranial nerves grossly intact; no facial asymmetry, power and sensation grossly intact. Investigations: White count 5.81 with an 0.3 potassium 4.3 Assessment: -Acute moderate persistent asthma with acute exacerbation positive possibly from viral pneumonitis -Diet-controlled diabetes -Peptic ulcer disease -Bulimia Chronic low back pain from herniated disc Plan: Dr. Cynthia lepe from pulmonary is being consulted. Put on bronchodilators and steroids. Patient told to do warm water and salt gargles to relieve the throat pain. He also had an hysterectomy IV steroids. Accu-Cheks and be closely followed. Care was discussed in detail with the patient. Past Medical History Past Medical History: Asthma, Thyroid Disorder Additional Past Medical History / Comment(s): hypoglycemia ,TACHYCARDIA, peptic ulcers, anemia."HAS BEEN ON VENTILATOR IN PAST D/T SEVERE ASTHMA ATTACK, BULEMIA-STATES GETTING BETTER,. CHRONIC BACK PAIN ,SEIZURES HAS SINCE BEEN TAKEN OFF MEDS, elevated blood sugar with steroid use and hypoglycemia when off steroids , "superficial blood clots" bilateral arms. History of Any Multi-Drug Resistant Organisms: MRSA Date of last positivie culture/infection: 08/25/14 MDRO Source:: Groin Past Surgical History: Bariatric Surgery, Cholecystectomy, Orthopedic Surgery, Tonsillectomy Additional Past Surgical History / Comment(s): tilt table test, lap band 2007; NASAL FX REPAIR , ORIF LT ELBOW X2, PAIN PROCEDURES Past Anesthesia/Blood Transfusion Reactions: Postoperative Nausea & Vomiting ( PONV) Past Psychological History: Anxiety, Depression Smoking Status: Never smoker Past Alcohol Use History: None Reported Past Drug Use History: None Reported - Past Family History Mother Family Medical History: Pneumonia Additional Family Medical History / Comment(s): Mother of pneumonia. Patient's son of brain cancer, last mother and father both liver cancer Son(s) Family Medical History: Cancer Additional Family Medical History / Comment(s): Son of brain cancer. Father Family Medical History: Cancer, Liver Disease Additional Family Medical History / Comment(s): Father has liver cancer with surgery. He has hepatitis. Medications and Allergies Home Medications Medication Instructions Recorded Confirmed Type Levalbuterol Nebulized [Xopenex 0.63 mg INHALATION RT-QID PRN 09/30/13 01/18/17 History Nebulized] Montelukast [Singulair] 10 mg PO HS 09/30/13 01/18/17 History Levalbuterol Hfa Inhaler [Xopenex 2 puff INHALATION RT-Q6H PRN 01/07/14 History Hfa Inhaler] ARIPiprazole [Abilify] 5 mg PO QAM 05/04/14 01/18/17 History Desvenlafaxine Succinate [Pristiq] 100 mg PO QAM 11/07/15 01/18/17 History Medroxyprogesterone Acetate 150 mg IM Q90D 11/07/15 01/18/17 History [Depo-Provera] traZODone HCL [Desyrel] 100 mg PO HS PRN 11/21/15 01/18/17 History Bisacodyl 5 mg PO DAILY PRN 06/28/16 01/18/17 History Butalb/APAP/Caff 50-325-40Mg 1 tab PO Q6H PRN 06/28/16 01/18/17 History [Fioricet 50-325-40] Flunisolide [Aerospan] 2 puff INHALATION RT-BID 06/28/16 01/18/17 History Omalizumab [Xolair] 300 mg SQ Q30D 06/28/16 01/18/17 History Levothyroxine Sodium [Synthroid] 137 mcg PO QAM 07/18/16 01/18/17 History Famotidine [Pepcid] 20 mg PO BID 10/02/16 01/18/17 History Pregabalin [Lyrica] 50 mg PO TID 11/22/16 01/18/17 History Diclofenac Sodium [Voltaren] 75 mg PO BID 01/17/17 01/18/17 History predniSONE See Taper PO DAILY 01/17/17 01/18/17 History Allergies Allergy/AdvReac Type Severity Reaction Status Date / Time albuterol AdvReac Rapid Verified 01/18/17 14:35 Heart Rate Results CBC & Chem 7: 01/18/17 14:15 01/18/17 14:15
[2017-01-18] MEDS: guaiFENesin SYRUP 100MG/5ML 200 MG/10 ML CUP PO PRN (18:57)
--- NOTE | 2017-01-18 19:05 | XR ---
EXAMINATION TYPE: XR chest 2V DATE OF EXAM: 01/18/2017 COMPARISON: 10/09/2016 HISTORY: Cough and wheezing TECHNIQUE: Frontal and lateral views of the chest are obtained. FINDINGS: There is no heart failure nor confluent pneumonic infiltrate. There are no hilar masses. C ostophrenic angles are clear. Bony thorax is intact. IMPRESSION: Normal chest. No change.
[2017-01-18] MEDS: HYDROcodone/APAP 7.5-325MG 1 EACH TAB PO PRN (19:07)
[2017-01-18] MEDS: methylPREDNISolone SOD SUCCI 40 MG/ML 1 ML VIAL IV SCH (19:08)
[2017-01-18] MEDS: IPRATROPIUM 0.5 MG/2.5 ML NEBU INHALATION SCH (19:33)
[2017-01-18] MEDS: LEVALBUTEROL NEB (CONC) 1.25 MG/0.5 ML AMP INHALATION SCH (19:33)
[2017-01-18] MEDS: BUDESONIDE 1 MG/2 ML NEBU INHALATION SCH (19:33)
[2017-01-18] MEDS: ETODOLAC 400 MG TAB PO SCH (21:24)
[2017-01-18] MEDS: PREGABALIN 50 MG CAP PO SCH (21:24)
[2017-01-18] MEDS: MONTELUKAST 10 MG TAB PO SCH (21:24)
[2017-01-18] MEDS: FAMOTIDINE 20 MG TAB PO SCH (21:24)
[2017-01-18] MEDS: traZODone HCL 50 MG TAB PO PRN (22:21)
[2017-01-19] MEDS: SODIUM CHLORIDE 0.9% 1,000 ML IV SCH ×3 (00:59→17:34)
[2017-01-19] MEDS: KETOROLAC 30 MG/ML 1 ML VIAL IVP SCH ×5 (06:06→23:39)
[2017-01-19] MEDS: LEVOTHYROXINE 137 MCG TAB PO SCH (06:06)
[2017-01-19] MEDS: HYDROcodone/APAP 7.5-325MG 1 EACH TAB PO PRN ×2 (07:24→16:05)
[2017-01-19] MEDS ORDERED: BISACODYL 5 MG TABLET.DR PO PRN (08:22)
[2017-01-19] MEDS ORDERED: LEVALBUTEROL 0.63 MG INHALATION PRN (08:22)
[2017-01-19] MEDS ORDERED: OMALIZUMAB 150 MG VIAL SQ SCH (08:30)
[2017-01-19] MEDS: methylPREDNISolone SOD SUCCI 40 MG/ML 1 ML VIAL IV SCH ×4 (08:33→17:13)
[2017-01-19] MEDS: guaiFENesin SYRUP 100MG/5ML 200 MG/10 ML CUP PO PRN (08:33)
[2017-01-19] MEDS: DESVENLAFAXINE SUCCINATE 50 MG TAB.ER.24H PO SCH (08:34)
[2017-01-19] MEDS: ARIPiprazole 5 MG TAB PO SCH (08:34)
[2017-01-19] MEDS: ETODOLAC 400 MG TAB PO SCH ×2 (08:34→20:50)
[2017-01-19] MEDS: FAMOTIDINE 20 MG TAB PO SCH ×2 (08:35→20:50)
[2017-01-19 08:44] LABS: Glucose,Whole Blood 123 mg/dL (75-99)
[2017-01-19] MEDS: BUDESONIDE 1 MG/2 ML NEBU INHALATION SCH ×2 (08:53→20:04)
[2017-01-19] MEDS: IPRATROPIUM 0.5 MG/2.5 ML NEBU INHALATION SCH ×3 (08:53→20:04)
[2017-01-19] MEDS: LEVALBUTEROL NEB (CONC) 1.25 MG/0.5 ML AMP INHALATION SCH ×3 (08:53→20:04)
[2017-01-19] MEDS ORDERED: predniSONE 20 MG TAB PO SCH (09:00)
[2017-01-19] MEDS: ENOXAPARIN 40 MG/0.4 ML SYRINGE SQ SCH (09:46)
[2017-01-19] MEDS: PREGABALIN 50 MG CAP PO SCH ×3 (09:46→20:50)
[2017-01-19] MEDS: ONDANSETRON ODT 4 MG TAB PO PRN ×2 (10:54→20:51)
[2017-01-19 12:02] LABS: Glucose,Whole Blood 158 mg/dL (75-99)
[2017-01-19] MEDS: INSULIN LISPRO (humaLOG) 300 UNIT/3 ML VIAL SQ SCH ×3 (12:36→20:51)
--- NOTE | 2017-01-19 13:06 | P.CNPUL ---
History of Present Illness Consult date: 01/19/17 Reason for consult: dyspnea, cough, asthma, COPD, hypoxemia Chief complaint: Cough shortness of breath and wheezing History of present illness: Ms. Delgado is a 36-year-old female with history of severe chronic persistent asthma for over 10-15 years patient has been on intermittently massive doses of steroids as well as Xolair therapy, for the last 2 or 3 days has been having more shortness of breath and wheezing than baseline her steroid dose has been escalated to 60 mg daily however without any significant relief patient presented into the emergency department with significant wheezing eventually was admitted she has been in complaining of cough associated with me she has thick sputum production denies any night sweats fever or chills patient has been having exacerbation and nighttime requiring her breathing treatment frequently Review of Systems Review of systems: GEN.: Tired EYES: None HEENT: None NECK: None RESPIRATORY: As above CARDIOVASCULAR: None GASTROINTESTINAL: GENITOURINARY: None MUSCULOSKELETAL: Chronic low back pain LYMPHATICS: None HEMATOLOGICAL: None PSYCHIATRY: Some anxiety NEUROLOGICAL: As above Past Medical History Past Medical History: Asthma, Thyroid Disorder Additional Past Medical History / Comment(s): hypoglycemia ,TACHYCARDIA, peptic ulcers, anemia."HAS BEEN ON VENTILATOR IN PAST D/T SEVERE ASTHMA ATTACK, BULEMIA-STATES GETTING BETTER,. CHRONIC BACK PAIN ,SEIZURES HAS SINCE BEEN TAKEN OFF MEDS, elevated blood sugar with steroid use and hypoglycemia when off steroids , "superficial blood clots" bilateral arms. History of Any Multi-Drug Resistant Organisms: MRSA Date of last positivie culture/infection: 08/25/14 MDRO Source:: Groin Past Surgical History: Bariatric Surgery, Cholecystectomy, Orthopedic Surgery, Tonsillectomy Additional Past Surgical History / Comment(s): tilt table test, lap band 2007; NASAL FX REPAIR , ORIF LT ELBOW X2, PAIN PROCEDURES Past Anesthesia/Blood Transfusion Reactions: Postoperative Nausea & Vomiting ( PONV) Smoking Status: Never smoker - Past Family History Mother Family Medical History: Pneumonia Additional Family Medical History / Comment(s): Mother of pneumonia. Patient's son of brain cancer, last mother and father both liver cancer Son(s) Family Medical History: Cancer Additional Family Medical History / Comment(s): Son of brain cancer. Father Family Medical History: Cancer, Liver Disease Additional Family Medical History / Comment(s): Father has liver cancer with surgery. He has hepatitis. Medications and Allergies Home Medications Medication Instructions Recorded Confirmed Type Levalbuterol Nebulized [Xopenex 0.63 mg INHALATION RT-QID PRN 09/30/13 01/18/17 History Nebulized] Montelukast [Singulair] 10 mg PO HS 09/30/13 01/18/17 History Levalbuterol Hfa Inhaler [Xopenex 2 puff INHALATION RT-Q6H PRN 01/07/14 History Hfa Inhaler] ARIPiprazole [Abilify] 5 mg PO QAM 05/04/14 01/18/17 History Desvenlafaxine Succinate [Pristiq] 100 mg PO QAM 11/07/15 01/18/17 History Medroxyprogesterone Acetate 150 mg IM Q90D 11/07/15 01/18/17 History [Depo-Provera] traZODone HCL [Desyrel] 100 mg PO HS PRN 11/21/15 01/18/17 History Bisacodyl 5 mg PO DAILY PRN 06/28/16 01/18/17 History Butalb/APAP/Caff 50-325-40Mg 1 tab PO Q6H PRN 06/28/16 01/18/17 History [Fioricet 50-325-40] Flunisolide [Aerospan] 2 puff INHALATION RT-BID 06/28/16 01/18/17 History Omalizumab [Xolair] 300 mg SQ Q30D 06/28/16 01/18/17 History Levothyroxine Sodium [Synthroid] 137 mcg PO QAM 07/18/16 01/18/17 History Famotidine [Pepcid] 20 mg PO BID 10/02/16 01/18/17 History Pregabalin [Lyrica] 50 mg PO TID 11/22/16 01/18/17 History Diclofenac Sodium [Voltaren] 75 mg PO BID 01/17/17 01/18/17 History predniSONE See Taper PO DAILY 01/17/17 01/18/17 History Allergies Allergy/AdvReac Type Severity Reaction Status Date / Time albuterol AdvReac Rapid Verified 01/18/17 14:35 Heart Rate Physical Exam Vitals: Vital Signs Temp Pulse Pulse Pulse Resp BP BP 01/19/17 09:27 88 01/19/17 08:54 88 01/19/17 07:00 98.4 F 90 18 114/57 01/19/17 00:00 104 H 90 16 01/18/17 21:37 98.4 F 90 16 127/75 01/18/17 19:51 99 01/18/17 19:37 99 01/18/17 16:34 98.0 F 78 18 110/64 01/18/17 15:23 98.2 F 87 18 117/75 01/18/17 14:29 99 01/18/17 14:20 109 H 104 H 01/18/17 14:19 97.5 F L 104 H 20 119/67 01/18/17 13:43 97.5 F L 120 H 18 131/69 Pulse Ox 01/19/17 09:27 01/19/17 08:54 01/19/17 07:00 97 01/19/17 00:00 01/18/17 21:37 95 01/18/17 19:51 01/18/17 19:37 98 01/18/17 16:34 96 01/18/17 15:23 96 01/18/17 14:29 01/18/17 14:20 01/18/17 14:19 96 01/18/17 13:43 97 Intake and Output 01/18/17 01/19/17 01/19/17 22:59 06:59 14:59 Intake Total 810 1115 Balance 810 1115 Intake: Intake, IV Titration 1015 Amount Sodium Chloride 0.9% 1, 1015 000 ml @ 100 mls/hr IV . Q10H [facility] Rx#:[id number] Oral 810 100 Other: Voiding Method Toilet Toilet # Voids 2 3 Weight 70.307 kg - Constitutional General appearance: cooperative, disheveled, mild distress, obese - EENT Eyes: EOMI, PERRLA, dentition normal, normal appearance ENT: hearing grossly normal, normal oropharynx Ears: bilateral: normal - Neck Neck: normal ROM Carotids: bilateral: upstroke normal, bruit absent Thyroid: bilateral: normal size - Respiratory Respiratory: bilateral: wheezing, prolonged expiration - Cardiovascular Heart sounds: normal: S1, S2 - Gastrointestinal General gastrointestinal: normal bowel sounds, soft - Integumentary Integumentary: normal, normal turgor - Neurologic Neurologic: CNII-XII intact - Musculoskeletal Musculoskeletal: gait normal, strength equal bilaterally - Psychiatric Psychiatric: A&O x's 3, appropriate affect, intact judgment & insight Results - Laboratory Findings CBC and BMP: 01/18/17 14:15 01/18/17 14:15 PT/INR, D-dimer PT 10.5 sec (9.0-12.0) 01/18/17 14:15 INR 1.0 (<1.2) 01/18/17 14:15 Abnormal lab findings: Abnormal Labs 01/18/17 01/19/17 01/19/17 14:15 08:41 11:56 Chloride 110 H POC Glucose (mg/dL) 123 H 158 H - Diagnostic Findings Chest x-ray: report reviewed, image reviewed (Normal study, EKG reviewed normal sinus rhythm no acute ST or T-wave changes) Assessment and Plan Plan: Acute asthma exacerbation Chronic persistent asthma of severe category with ALLERGY component Diabetes mellitus type 2 which is diet controlled with episodes of hyper and hypoglycemia with the steroids Problem associated with obesity peptic ulcer disease bulimia Chronic pain syndrome spine nor related to herniated disc Would continue IV steroids breathing treatments continue supportive care increase activity as tolerated if remains stable possible discharge in next 24- 48 hours Time with Patient: Greater than 30
[2017-01-19] MEDS ORDERED: LEVALBUTEROL NEB (CONC) 1.25 MG/0.5 ML AMP INHALATION PRN (13:07)
[2017-01-19 14:22] LABS: Hemoglobin A1C 4.7 % (4.2-6.1)
--- NOTE | 2017-01-19 15:58 | P.PN ---
Progress Note - Text Attending note. Date of service-01/19/2017 This patient was seen and examined by me . Discussed the patient with my nurse practitioner Ms. Bhatti. Feeling better. Feels tired and rundown. Less cough. Decreased oral intake. No sputum. On examination: Lying in bed., Lungs-improved entry, decreased wheezing, psych-healed 3 Investigations: Accu-Cheks noted Assessment and plan: -Acute moderate persistent asthma with acute exacerbation positive possibly from viral pneumonitis, improving -Diet-controlled diabetes, uncontrolled from steroids -Peptic ulcer disease -Bulimia Chronic low back pain from herniated disc -We will cut back on Solu-Medrol to 40 mg every 12. Encourage patient to increase oral intake. Continued on her medications.
[2017-01-19 17:42] LABS: Glucose,Whole Blood 125 mg/dL (75-99)
[2017-01-19 20:19] LABS: Glucose,Whole Blood 188 mg/dL (75-99)
[2017-01-19] MEDS: MONTELUKAST 10 MG TAB PO SCH (20:51)
[2017-01-19] MEDS: traZODone HCL 50 MG TAB PO PRN (23:39)
[2017-01-19] MEDS ORDERED: LEVALBUTEROL NEB 1.25 MG/3 ML AMP INHALATION PRN (23:59)
[2017-01-20] MEDS: KETOROLAC 30 MG/ML 1 ML VIAL IVP SCH ×3 (05:31→17:36)
[2017-01-20] MEDS: methylPREDNISolone SOD SUCCI 40 MG/ML 1 ML VIAL IV SCH ×2 (05:31→15:47)
[2017-01-20] MEDS: LEVOTHYROXINE 137 MCG TAB PO SCH (05:32)
[2017-01-20 06:55] LABS: Glucose,Whole Blood 112 mg/dL (75-99)
[2017-01-20] MEDS: LEVALBUTEROL NEB (CONC) 1.25 MG/0.5 ML AMP INHALATION SCH ×3 (07:03→19:46)
[2017-01-20] MEDS: IPRATROPIUM 0.5 MG/2.5 ML NEBU INHALATION SCH ×3 (07:03→19:46)
[2017-01-20] MEDS: BUDESONIDE 1 MG/2 ML NEBU INHALATION SCH ×2 (07:03→19:46)
[2017-01-20 07:33] LABS: Basophils % (A) 0 %; CH 34.1; CHCM 33.9; Eosinophils % (A) 0 %; HCT 34.4 % (34.0-46.0); HDW 2.72; HGB 11.2 gm/dL (11.4-16.0); Luc # (Auto) 0.07; Luc % (Auto) 1; Lymphocytes # (A) 0.9 k/uL (1.0-4.8); Lymphocytes % (A) 15 %; MCHC 32.6 g/dL (31.0-37.0); Macrocytosis Slight; Mean Platelet Volume 7.6; Monocytes # (A) 0.3 k/uL (0-1.0); Monocytes % (A) 5 %; Neutrophils # (A) 4.8 k/uL (1.3-7.7); Neutrophils % (A) 79 %; RBC 3.41 m/uL (3.80-5.40); RDW 13.1 % (11.5-15.5); WBC 6.1 k/uL (3.8-10.6); WBC (Perox) 6.31
[2017-01-20] MEDS: HYDROcodone/APAP 7.5-325MG 1 EACH TAB PO PRN ×2 (07:35→15:43)
[2017-01-20 07:47] LABS: Anion Gap 6 mmol/L; Blood Urea Nitrogen 14 mg/dL (7-17); Calcium 8.2 mg/dL (8.4-10.2); Carbon Dioxide 23 mmol/L (22-30); Chloride 113 mmol/L (98-107); Glucose 90 mg/dL (74-99); Non-African American GFR(MDRD) >60 (>60 ml/min/1.73 sqM); Potassium 4.6 mmol/L (3.5-5.1); Sodium 142 mmol/L (137-145)
[2017-01-20] MEDS: PREGABALIN 50 MG CAP PO SCH ×3 (08:49→21:12)
[2017-01-20] MEDS: FAMOTIDINE 20 MG TAB PO SCH ×2 (08:49→21:12)
[2017-01-20] MEDS: ETODOLAC 400 MG TAB PO SCH ×2 (08:49→21:11)
[2017-01-20] MEDS: ENOXAPARIN 40 MG/0.4 ML SYRINGE SQ SCH (08:49)
[2017-01-20] MEDS: ARIPiprazole 5 MG TAB PO SCH (08:49)
[2017-01-20] MEDS: INSULIN LISPRO (humaLOG) 300 UNIT/3 ML VIAL SQ SCH ×4 (08:52→21:12)
[2017-01-20] MEDS: DESVENLAFAXINE SUCCINATE 50 MG TAB.ER.24H PO SCH (08:52)
[2017-01-20] MEDS: guaiFENesin SYRUP 100MG/5ML 200 MG/10 ML CUP PO PRN (08:57)
[2017-01-20 11:38] LABS: Glucose,Whole Blood 119 mg/dL (75-99)
[2017-01-20] MEDS: SODIUM CHLORIDE 0.9% 1,000 ML IV SCH (12:10)
--- NOTE | 2017-01-20 12:55 | P.PN ---
Subjective Principal diagnosis: Acute asthma exacerbation Patient seen and evaluated examined during the rounds, she remains short of breath and continued to have intermittent wheezing C weight is slightly better however patient has been having dizziness and lightheadedness which is relatively a new problem patient just has been started on meclizine she is being monitored so as per recommendation of primary care service she denies any weakness and denies any seizure-like activity, she does have prior episodes of dizziness similar to that in the past Objective - Vital Signs Vital signs: Vital Signs Temp 98.6 F 01/20/17 07:00 Pulse 73 01/20/17 08:00 Resp 18 01/20/17 08:00 BP 104/57 01/20/17 07:00 Pulse Ox 97 01/20/17 07:00 Intake & Output 01/19/17 01/20/17 01/20/17 18:59 06:59 18:59 Intake Total 800 740 Output Total 3900 Balance -3100 740 Weight 70.307 kg 70.307 kg Intake: Intake, IV Titration 800 Amount Sodium Chloride 0.9% 1, 800 000 ml @ 100 mls/hr IV . Q10H [facility] Rx#:[id number] Oral 740 Output: Urine 3900 Other: Voiding Method Toilet Toilet Toilet # Voids 2 2 2 - Exam Constitutional General appearance: cooperative, disheveled, mild distress, obese - EENT Eyes: EOMI, PERRLA, dentition normal, normal appearance ENT: hearing grossly normal, normal oropharynx Ears: bilateral: normal - Neck Neck: normal ROM Carotids: bilateral: upstroke normal, bruit absent Thyroid: bilateral: normal size - Respiratory Respiratory: bilateral: wheezing, prolonged expiration - Cardiovascular Heart sounds: normal: S1, S2 - Gastrointestinal General gastrointestinal: normal bowel sounds, soft - Integumentary Integumentary: normal, normal turgor - Neurologic Neurologic: CNII-XII intact, coordination intact, no weakness strength good and equal in all 4 extremity, no obvious motor or sensory deficit - Musculoskeletal Musculoskeletal: gait normal, strength equal bilaterally - Psychiatric Psychiatric: A&O x's 3, appropriate affect, intact judgment & insight - Labs CBC & Chem 7: 01/20/17 07:00 01/20/17 07:00 Labs: Abnormal Lab Results - Last 24 Hours (Table) 01/19/17 01/19/1717 Range/Units 17:29 20:18 06:54 RBC (3.80-5.40) m/uL Hgb (11.4-16.0) gm/dL MCV (80.0-100.0) fL Lymphocytes # (1.0-4.8) k/uL Chloride (98-107) mmol/L POC Glucose (mg/dL) 125 H 188 H 112 H (75-99) mg/dL Calcium (8.4-10.2) mg/dL 01/20/17 01/20/17 01/20/17 Range/Units 07:00 07:00 11:35 RBC 3.41 L (3.80-5.40) m/uL Hgb 11.2 L (11.4-16.0) gm/dL MCV 101.0 H (80.0-100.0) fL Lymphocytes # 0.9 L (1.0-4.8) k/uL Chloride 113 H (98-107) mmol/L POC Glucose (mg/dL) 119 H (75-99) mg/dL Calcium 8.2 L (8.4-10.2) mg/dL Assessment and Plan Plan: Acute asthma exacerbation Chronic persistent asthma of severe category with ALLERGY component Diabetes mellitus type 2 which is diet controlled with episodes of hyper and hypoglycemia with the steroids Problem associated with obesity peptic ulcer disease bulimia Chronic pain syndrome spine nor related to herniated disc Would continue IV steroids breathing treatments continue supportive care increase activity as tolerated if remains stable possible discharge in next 24- 48 hours, aggravated with monitoring fall precaution observation closely for dizziness lightheadedness will follow patient will be followed by Dr. Garcia/Cheryl Jalloh from tomorrow Time with Patient: Greater than 30
[2017-01-20] MEDS: ONDANSETRON ODT 4 MG TAB PO PRN (15:12)
[2017-01-20] MEDS: MECLIZINE 12.5 MG TAB PO SCH ×2 (15:43→21:12)
[2017-01-20 17:12] LABS: Glucose,Whole Blood 122 mg/dL (75-99)
--- NOTE | 2017-01-20 17:22 | P.PN ---
Progress Note - Text DATE OF SERVICE: 01/19/2017 PRESENTING COMPLAINT: Shortness of breath HISTORY OF PRESENT ILLNESS: 36-year-old female who presented with increased wheezing cough shortness of breath and congestion. 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 Recently sustained a fall injuring her right foot metatarsal, brace in place. INTERVAL HISTORY: 01/19/2017: Seen and examined, complains of not feeling well, appears anxious feels short of breath, although breathing improved from previous exam cough present, no sputum production. Feels shaky, appetite is poor eating about 30% of her meals , ambulatory within the room, last BM prior to admission. REVIEW OF SYSTEMS: Done for constitutional ,cardiovascular, GI, pulmonary with relevant findings as above. CURRENT MEDICATIONS [place], Abilify, Pulmicort, Pristiq, Lovenox, etodolac, famotidine, Synthroid, Solu-Medrol, Lyrica, trazodone. PHYSICAL EXAM VITAL SIGNS: Temperature 98.6, pulse 76, respiratory rate 18, blood pressure 104/57 oxygen saturation 97% on room air. GENERAL APPEARANCE: Lying in bed, anxious appearing. EYES: Pupils equal. Conjunctiva normal. NECK: JVD not raised. Mass not palpable. RESPIRATORY: Respiratory effort increased. Prolonged expiration and wheezing with decreased breath sounds.. CARDIOVASCULAR: First and second sounds normal. No edema. ABDOMEN: Soft. Liver and spleen not palpable. No tenderness. No mass palpable. PSYCHIATRY: Alert and oriented x3. Mood and affect low. MUSCULOSKELETAL: Brace on right leg INVESTIGATIONS: Accu-Cheks noted ASSESSMENT: -Acute moderate persistent asthma with acute exacerbation positive possibly from viral pneumonitis -Diet-controlled diabetes -Peptic ulcer disease -Bulimia -Chronic low back pain from herniated disc PLAN: Continue IV steroids breathing treatments and antibiotic therapy. Encouraged patient to be up in the room as she can tolerate. Plan of care discussed with the patient the bedside she is in agreement. We'll follow closely. REALTIME REPORTER statement: Patient was seen and examined by nurse practitioner Beth Bhatti and all elements of the case discussed with attending Dr. English
--- NOTE | 2017-01-20 17:32 | P.PN ---
<Beth Bhatti - Last Filed: 01/20/17 17:22> Progress Note - Text DATE OF SERVICE: 01/20/2017 PRESENTING COMPLAINT: Shortness of breath HISTORY OF PRESENT ILLNESS: 36-year-old female who presented with increased wheezing cough shortness of breath and congestion. 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 Recently sustained a fall injuring her right foot metatarsal, brace in place. INTERVAL HISTORY: 01/20/2017: Seen and examined, states she feels better today, breathing is much better, complains of a dry cough. Also complains of dizziness and tinnitus. Tolerating her diet, ambulatory within the room, last BM prior to admission. Brace remains in place on the right leg 01/19/2017: Seen and examined, complains of not feeling well, appears anxious feels short of breath, although breathing improved from previous exam cough present, no sputum production. Feels shaky, appetite is poor eating about 30% of her meals , ambulatory within the room, last BM prior to admission. Brace remains in place on the right leg REVIEW OF SYSTEMS: Done for constitutional ,cardiovascular, GI, pulmonary with relevant findings as above. CURRENT MEDICATIONS [place], Abilify, Pulmicort, Pristiq, Lovenox, etodolac, famotidine, Synthroid, Solu-Medrol, Lyrica, trazodone. PHYSICAL EXAM VITAL SIGNS: Temperature 98.6, pulse 73, respiratory rate 18, blood pressure 104/57, oxygen saturation 97% on room air. GENERAL APPEARANCE: Lying in bed, anxious appearing. EYES: Pupils equal. Conjunctiva normal. NECK: JVD not raised. Mass not palpable. RESPIRATORY: Respiratory effort increased. Prolonged expiration and wheezing with decreased breath sounds.. CARDIOVASCULAR: First and second sounds normal. No edema. ABDOMEN: Soft. Liver and spleen not palpable. No tenderness. No mass palpable. PSYCHIATRY: Alert and oriented x3. Mood and affect low. MUSCULOSKELETAL: Brace on right leg INVESTIGATIONS: Hemoglobin 11.2, chloride 113 Accu-Cheks noted. ASSESSMENT: -Acute moderate persistent asthma with acute exacerbation positive possibly from viral pneumonitis -Tinnitus bilateral -Diet-controlled diabetes -Peptic ulcer disease -Bulimia -Chronic low back pain from herniated disc PLAN: Continue IV steroids breathing treatments and antibiotic therapy. Antivert added patient regimen. Encouraged patient to be up in the room as she can tolerate. Plan of care discussed with the patient the bedside she is in agreement. We'll follow closely. SLIP OPERATOR statement: Patient was seen and examined by nurse practitioner Beth Bhatti and all elements of the case discussed with attending Dr. English <Anthony English - Last Filed: 01/20/17 17:48> Progress Note - Text Attending note. Date of service-01/20/2017 This patient was seen and examined by me . Discussed the patient with my nurse practitioner Ms. Bhatti. Feeling much better today. Some ringing in the ears and some dizziness though much improved. Started eating better. Tired. On examination: Lungs-improve entry, psych AO 3 Investigations: White count 6.1 Accu-Cheks noted Assessment and plan: Acute moderate persistent asthma exacerbation with significant improvement. Possible acute vestibulitis. We'll switch to oral steroids. Give Antivert. Hopefully home tomorrow. Discussed with the patient.
[2017-01-20 20:34] LABS: Glucose,Whole Blood 138 mg/dL (75-99)
[2017-01-20] MEDS: MONTELUKAST 10 MG TAB PO SCH (21:12)
[2017-01-20] MEDS: traZODone HCL 50 MG TAB PO PRN (21:12)
[2017-01-20 22:46] VITALS: RESP 16
[2017-01-21] MEDS: KETOROLAC 30 MG/ML 1 ML VIAL IVP SCH ×2 (00:44→06:14)
[2017-01-21] MEDS: HYDROcodone/APAP 7.5-325MG 1 EACH TAB PO PRN ×2 (03:04→08:56)
[2017-01-21] MEDS: LEVOTHYROXINE 137 MCG TAB PO SCH (06:13)
[2017-01-21 07:20] LABS: Glucose,Whole Blood 84 mg/dL (75-99)
[2017-01-21] MEDS: INSULIN LISPRO (humaLOG) 300 UNIT/3 ML VIAL SQ SCH (07:34)
[2017-01-21] MEDS: IPRATROPIUM 0.5 MG/2.5 ML NEBU INHALATION SCH ×2 (07:55→11:22)
[2017-01-21] MEDS: LEVALBUTEROL NEB (CONC) 1.25 MG/0.5 ML AMP INHALATION SCH ×2 (07:55→11:22)
[2017-01-21 07:58] VITALS: BP 114/71; TEMP 98
[2017-01-21] MEDS: BUDESONIDE 1 MG/2 ML NEBU INHALATION SCH (08:02)
[2017-01-21 08:21] VITALS: PULSE 86
[2017-01-21] MEDS: PREGABALIN 50 MG CAP PO SCH (08:54)
[2017-01-21] MEDS: ETODOLAC 400 MG TAB PO SCH (08:55)
[2017-01-21] MEDS: FAMOTIDINE 20 MG TAB PO SCH (08:55)
[2017-01-21] MEDS: ENOXAPARIN 40 MG/0.4 ML SYRINGE SQ SCH (08:55)
[2017-01-21] MEDS: MECLIZINE 12.5 MG TAB PO SCH (08:56)
[2017-01-21] MEDS: ARIPiprazole 5 MG TAB PO SCH (08:56)
[2017-01-21] MEDS: DESVENLAFAXINE SUCCINATE 50 MG TAB.ER.24H PO SCH (08:56)
[2017-01-21] MEDS ORDERED: predniSONE 10 MG TAB PO SCH (09:00)
[2017-01-21 11:12] LABS: Glucose,Whole Blood 104 mg/dL (75-99)
--- NOTE | 2017-01-21 20:39 | P.DS ---
<Beth Bhatti - Last Filed: 01/21/17 20:31> Providers Date of admission: 01/18/17 15:35 Expected date of discharge: 01/21/17 Attending physician: Anthony English Consults: 01/18/17 17:53 Consult Physician Routine Consulting Provider: Toby Jalloh Consult Reason/Comments: asthma Do you want consulting provider notified?: Yes Primary care physician: Slade Gonzalez Hospital Course: FINAL DIAGNOSES: -Acute moderate persistent asthma with acute exacerbation positive possibly from viral pneumonitis -Acute vestibulitis -Diet-controlled diabetes -Peptic ulcer disease -Bulimia -Chronic low back pain from herniated disc HOSPTIAL COURSE: 36-year-old female who presented with increasing wheezing cough shortness of breath and congestion. Received increases in her prednisone with no relief was admitted for acute asthma exacerbation. Antibiotics initiated, steroids and breathing treatments added. Pulmonology consulted. Breathing improved, wheezing subsided,. Patient developed ringing in the ears for which she received Antivert.. Patient up and about in the room, no shortness of breath, breathing easier, tolerating her diet, has not moved her bowels however is passing gas. Overall condition improved and stabilized therefore patient ready for discharge. PHYSICAL EXAM: CARDIOVASCULAR: First and second sounds noted no edema RESPIRATORY: Respiratory effort normal decreased breath sounds bilaterally Patient was seen and examined by nurse practitioner Beth Bhatti in all elements of the case discussed with attending Dr. English DISPOSITION: Home to the care of her family Plan - Discharge Summary New Discharge Prescriptions: New Meclizine [Antivert] 12.5 mg PO TID #6 tab predniSONE See Taper PO DIRECTED #6 tab Continue Montelukast [Singulair] 10 mg PO HS Levalbuterol Nebulized [Xopenex Nebulized] 0.63 mg INHALATION RT-QID PRN PRN Reason: Shortness Of Breath Levalbuterol Hfa Inhaler [Xopenex Hfa Inhaler] 2 puff INHALATION RT-Q6H PRN PRN Reason: Shortness Of Breath ARIPiprazole [Abilify] 5 mg PO QAM Medroxyprogesterone Acetate [Depo-Provera] 150 mg IM Q90D Desvenlafaxine Succinate [Pristiq] 100 mg PO QAM traZODone HCL [Desyrel] 100 mg PO HS PRN PRN Reason: Insomnia Butalb/APAP/Caff 50-325-40Mg [Fioricet 50-325-40] 1 tab PO Q6H PRN PRN Reason: Migraine Headache Omalizumab [Xolair] 300 mg SQ Q30D Flunisolide [Aerospan] 2 puff INHALATION RT-BID Bisacodyl 5 mg PO DAILY PRN PRN Reason: Constipation Ondansetron Odt [Zofran ODT] 4 mg PO Q8HR PRN #30 tab PRN Reason: Nausea And Vomiting Levothyroxine Sodium [Synthroid] 137 mcg PO QAM Famotidine [Pepcid] 20 mg PO BID HYDROcodone/APAP 7.5-325MG [[place] 7.5-325] 1 tab PO Q6HR PRN #120 tab PRN Reason: Pain Pregabalin [Lyrica] 50 mg PO TID Diclofenac Sodium [Voltaren] 75 mg PO BID Discontinued predniSONE See Taper PO DAILY Discharge Medication List Levalbuterol Nebulized [Xopenex Nebulized] 0.63 mg INHALATION RT-QID PRN [History] Montelukast [Singulair] 10 mg PO HS 09/30/13 [History] Levalbuterol Hfa Inhaler [Xopenex Hfa Inhaler] 2 puff INHALATION RT-Q6H PRN [History] ARIPiprazole [Abilify] 5 mg PO QAM 05/04/14 [History] Desvenlafaxine Succinate [Pristiq] 100 mg PO QAM 11/07/15 [History] Medroxyprogesterone Acetate [Depo-Provera] 150 mg IM Q90D 11/07/15 [History] traZODone HCL [Desyrel] 100 mg PO HS PRN 11/21/15 [History] Bisacodyl 5 mg PO DAILY PRN 06/28/16 [History] Butalb/APAP/Caff 50-325-40Mg [Fioricet 50-325-40] 1 tab PO Q6H PRN 06/28/16 [ History] Flunisolide [Aerospan] 2 puff INHALATION RT-BID 06/28/16 [History] Omalizumab [Xolair] 300 mg SQ Q30D 06/28/16 [History] Ondansetron Odt [Zofran ODT] 4 mg PO Q8HR PRN #30 tab 06/29/16 [Rx] Levothyroxine Sodium [Synthroid] 137 mcg PO QAM 07/18/16 [History] Famotidine [Pepcid] 20 mg PO BID 10/02/16 [History] HYDROcodone/APAP 7.5-325MG [[place] 7.5-325] 1 tab PO Q6HR PRN #120 tab 10/23/16 [ Rx] Pregabalin [Lyrica] 50 mg PO TID 11/22/16 [History] Diclofenac Sodium [Voltaren] 75 mg PO BID 01/17/17 [History] Meclizine [Antivert] 12.5 mg PO TID #6 tab 01/21/17 [Rx] predniSONE See Taper PO DIRECTED #6 tab 01/21/17 [Rx] Follow up Appointment(s)/Referral(s): Slade Gonzalez MD [Primary Care Provider] - 01/23/17 10:20 am Toby Jalloh MD [STAFF PHYSICIAN] - 01/24/17 2:30 pm Patient Instructions/Handouts: Prednisone (By mouth), Meclizine (By mouth), Asthma (DC), Vertigo (DC) Activity/Diet/Wound Care/Special Instructions: Diet as tolerated Activity as tolerated Discharge Disposition: HOME SELF-CARE <Anthony English - Last Filed: 01/22/17 20:30> Hospital Course: Attending note. Date of service-01/21/2017 This patient was seen and examined by me . Discussed the patient with my nurse practitioner Ms. Bhatti. Breathing greatly improved. Dizziness greatly improved. Eating much better. He did go home On examination: Lungs-fair entry, cardiovascular first seconds are normal, psych AO 3 Investigations: Accu-Cheks noted Assessment and plan: Asthma and acute respiratory distress much improved. He discussed with the patient. Follow-up his family doctor.
== END 2017-01-21 12:20 | disposition home or self-care (01) ==
LOC: EC 13:40 → 5MS5E 15:35
PROVIDERS: ADMIT Hospitalist; ATTEND Hospitalist
DX: J45.41 Moderate persistent asthma with (acute) exacerbation (principal); H83.09 Labyrinthitis, unspecified ear; F50.2 Bulimia nervosa; G89.29 Other chronic pain; Z98.84 Bariatric surgery status; F41.9 Anxiety disorder, unspecified; F32.9 Major depressive disorder, single episode, unspecified; K21.9 Gastro-esophageal reflux disease without esophagitis; E03.9 Hypothyroidism, unspecified; J44.9 Chronic obstructive pulmonary disease, unspecified; E11.649 Type 2 diabetes mellitus with hypoglycemia without coma; K27.9 Peptic ulcer, site unspecified, unspecified as acute or chronic, without hemorrhage or perforation; H93.13 Tinnitus, bilateral; G89.4 Chronic pain syndrome; Z79.899 Other long term (current) drug therapy; Z79.52 Long term (current) use of systemic steroids; Z86.718 Personal history of other venous thrombosis and embolism; Z88.8 Allergy status to other drugs, medicaments and biological substances; Z86.14 Personal history of Methicillin resistant Staphylococcus aureus infection
CPT/HCPCS: 96376 ×3; 96361 ×2; 96372 ×3; 96375; 96374; 99285; 36415; 94640 ×7; 93005; 80053; 80048; 83036; 82550; 82553; 83735; 84484; 85025 ×2; 85610; 85730; 71020; G0378 ×4; J2920 ×3; J1650 ×3; J1885 ×4; J7512

== ENCOUNTER → 2017-01-24 | Outpatient (CLI) | payer OTHER ==
--- NOTE | 2017-01-24 15:39 | XR ---
EXAMINATION TYPE: XR shoulder complete LT DATE OF EXAM: 01/24/2017 COMPARISON: NONE HISTORY: Pain TECHNIQUE: Three views are submitted. FINDINGS: The osseous structures are intact. There is no acute fracture or dislocation. The AC joint is mildl y narrowed. IMPRESSION: 1. No acute process.
== END ==
LOC: RADXRMAIN 15:05
PROVIDERS: ATTEND Family Medicine
DX: M25.512 Pain in left shoulder (principal)

== ENCOUNTER 2017-01-31 15:56 | Emergency (ER) | payer OTHER ==
[2017-01-31] MEDS ORDERED: KETOROLAC 30 MG/ML 1 ML VIAL IVP STA (17:04)
[2017-01-31] MEDS ORDERED: SODIUM CHLORIDE 0.9% 1,000 ML IV STA ×2 (17:04)
[2017-01-31] MEDS ORDERED: HYDROmorphone 1 MG/ML 1 ML SYRINGE IVP STA ×2 (17:04→19:26)
[2017-01-31] MEDS ORDERED: ONDANSETRON 4 MG/2 ML VIAL IVP STA (17:04)
[2017-01-31 17:34] LABS: Basophils # (A) 0.1 k/uL (0-0.2); Basophils % (A) 1 %; CH 33.8; CHCM 36.4; Eosinophils # (A) 0.1 k/uL (0-0.7); Eosinophils % (A) 1 %; HCT 39.9 % (34.0-46.0); HDW 2.92; Luc # (Auto) 0.16; Luc % (Auto) 2; Lymphocytes # (A) 1.9 k/uL (1.0-4.8); Lymphocytes % (A) 27 %; MCH 33.3 pg (25.0-35.0); MCHC 35.6 g/dL (31.0-37.0); Mean Platelet Volume 6.6; Monocytes # (A) 0.4 k/uL (0-1.0); Monocytes % (A) 5 %; Neutrophils # (A) 4.7 k/uL (1.3-7.7); Neutrophils % (A) 65 %; RBC 4.28 m/uL (3.80-5.40); RDW 12.2 % (11.5-15.5); WBC 7.2 k/uL (3.8-10.6); WBC (Perox) 7.48
--- NOTE | 2017-01-31 17:38 | ED ---
Abdominal Pain HPI - General Chief Complaint: Abdominal Pain Stated Complaint: blood in urine/right flank pain-sent by Time Seen by Provider: 01/31/17 16:49 Source: patient, RN notes reviewed, old records reviewed Mode of arrival: ambulatory Limitations: no limitations - History of Present Illness Initial Comments: 36-year-old female female presents emergency department increased right-sided flank pain for the past 2 days. She went to her primary care doctor and was told that she has blood in her urine. She does have a history of pyelonephritis and kidney stones. Patient reports that she feels like this is similar to previous kidney stones. Patient says she is extremely nauseated and has not been able tolerate fluids today. She's had multiple episodes of vomiting. Patient denies any abnormal bowel movements, she is on chronic pain medications as she has always constipated. Patient states that she's felt chilled. Denies any significant fever. She's had multiple CAT scans and would like to avoid having to urinate excessive radiation as possible. - Related Data Home Medications Medication Instructions Recorded Confirmed Levalbuterol Nebulized [Xopenex 0.63 mg INHALATION RT-QID PRN 09/30/13 01/31/17 Nebulized] Montelukast [Singulair] 10 mg PO HS 09/30/13 01/31/17 Levalbuterol Hfa Inhaler [Xopenex 2 puff INHALATION RT-Q6H PRN 01/07/14 01/31/17 Hfa Inhaler] ARIPiprazole [Abilify] 5 mg PO QAM 05/04/14 01/31/17 Desvenlafaxine Succinate [Pristiq] 100 mg PO QAM 11/07/15 01/31/17 Medroxyprogesterone Acetate 150 mg IM Q90D 11/07/15 01/31/17 [Depo-Provera] traZODone HCL [Desyrel] 100 mg PO HS PRN 11/21/15 01/31/17 Bisacodyl 5 mg PO DAILY PRN 06/28/16 01/31/17 Butalb/APAP/Caff 50-325-40Mg 1 tab PO Q6H PRN 06/28/16 01/31/17 [Fioricet 50-325-40] Flunisolide [Aerospan] 2 puff INHALATION RT-BID 06/28/16 01/31/17 Omalizumab [Xolair] 300 mg SQ Q30D 06/28/16 01/31/17 Levothyroxine Sodium [Synthroid] 137 mcg PO SUMOWETHFR 07/18/16 01/31/17 Famotidine [Pepcid] 20 mg PO BID 10/02/16 01/31/17 Pregabalin [Lyrica] 50 mg PO TID 11/22/16 01/31/17 Diclofenac Sodium [Voltaren] 75 mg PO BID 01/17/17 01/31/17 Levothyroxine Sodium [Synthroid] 150 mcg PO TUSA 01/31/17 01/31/17 Previous Rx's Medication Instructions Recorded Ondansetron Odt [Zofran ODT] 4 mg PO Q8HR PRN #30 tab 06/29/16 HYDROcodone/APAP 7.5-325MG [[place] 1 tab PO Q6HR PRN #120 tab 10/23/16 7.5-325] Ketorolac [Toradol] 10 mg PO TID #15 tab 01/31/17 Ondansetron Odt [Zofran Odt] 4 mg PO Q8HR PRN #12 tab 01/31/17 Tamsulosin [Flomax] 0.4 mg PO DAILY #10 cap 01/31/17 Allergies Allergy/AdvReac Type Severity Reaction Status Date / Time albuterol AdvReac Rapid Verified 01/31/17 17:00 Heart Rate Review of Systems ROS Statement: Those systems with pertinent positive or pertinent negative responses have been documented in the HPI. ROS Other: All systems not noted in ROS Statement are negative. Past Medical History Past Medical History: Asthma, Thyroid Disorder Additional Past Medical History / Comment(s): hypoglycemia ,TACHYCARDIA, peptic ulcers, anemia."HAS BEEN ON VENTILATOR IN PAST D/T SEVERE ASTHMA ATTACK, BULEMIA-STATES GETTING BETTER,. CHRONIC BACK PAIN ,SEIZURES HAS SINCE BEEN TAKEN OFF MEDS, elevated blood sugar with steroid use and hypoglycemia when off steroids , "superficial blood clots" bilateral arms. History of Any Multi-Drug Resistant Organisms: MRSA Date of last positivie culture/infection: 08/25/14 MDRO Source:: Groin Past Surgical History: Bariatric Surgery, Cholecystectomy, Orthopedic Surgery, Tonsillectomy Additional Past Surgical History / Comment(s): tilt table test, lap band 2008; NASAL FX REPAIR , ORIF LT ELBOW X2, PAIN PROCEDURES Past Anesthesia/Blood Transfusion Reactions: Postoperative Nausea & Vomiting ( PONV) Past Psychological History: Anxiety, Depression Smoking Status: Never smoker Past Alcohol Use History: None Reported Past Drug Use History: None Reported - Past Family History Mother Family Medical History: Pneumonia Additional Family Medical History / Comment(s): Mother of pneumonia. Patient's son of brain cancer, last mother and father both liver cancer Son(s) Family Medical History: Cancer Additional Family Medical History / Comment(s): Son of brain cancer. Father Family Medical History: Cancer, Liver Disease Additional Family Medical History / Comment(s): Father has liver cancer with surgery. He has hepatitis. General Exam - General Exam Comments Initial Comments: 36-year-old female. Patient appears in discomfort. Limitations: no limitations General appearance: alert, in no apparent distress Head exam: Present: atraumatic, normocephalic, normal inspection Eye exam: Present: normal appearance, PERRL, EOMI. Absent: scleral icterus, conjunctival injection, periorbital swelling ENT exam: Present: normal exam, mucous membranes moist Neck exam: Present: normal inspection. Absent: tenderness, meningismus, lymphadenopathy Respiratory exam: Present: normal lung sounds bilaterally. Absent: respiratory distress, wheezes, rales, rhonchi, stridor Cardiovascular Exam: Present: regular rate, normal rhythm, normal heart sounds. Absent: systolic murmur, diastolic murmur, rubs, gallop, clicks GI/Abdominal exam: Present: soft, normal bowel sounds. Absent: distended, tenderness, guarding, rebound, rigid Extremities exam: Present: normal inspection, full ROM, normal capillary refill. Absent: tenderness, pedal edema, joint swelling, calf tenderness Back exam: Present: normal inspection, CVA tenderness (R) (Sided CVA tenderness) Neurological exam: Present: alert, oriented X3, CN II-XII intact Psychiatric exam: Present: normal affect, normal mood Skin exam: Present: warm, dry, intact, normal color. Absent: rash Course Vital Signs 01/31/17 01/31/17 01/31/17 16:07 18:20 19:17 Temperature 99.3 F 98.6 F 98.5 F Pulse Rate 109 H 112 H 115 H Respiratory 18 18 19 Rate Blood Pressure 130/81 135/79 149/78 O2 Sat by Pulse 98 100 100 Oximetry 01/31/17 19:46 Temperature 97.7 F Pulse Rate 112 H Respiratory 18 Rate Blood Pressure 134/75 O2 Sat by Pulse 97 Oximetry Medical Decision Making - Medical Decision Making 36-year-old female female presents emergency department increased right-sided flank pain for the past 2 days. She went to her primary care doctor and was told that she has blood in her urine. She does have a history of pyelonephritis and kidney stones. Patient reports that she feels like this is similar to previous kidney stones. Patient says she is extremely nauseated and has not been able tolerate fluids today. Patient has significant hematuria. PAtient has no WBC indication for infection. Patient given IV fluids and pain and nausea medication. Patient Renal US shows no hydronephrosis. Patient KUB shows no identifable stones. PAtient previous CT scans reveiwed, previous stones measured 4mm. Patient will be started on Flomax, toradol, and zofran. PAtient already receives narcotic pain medication from PCP. Patient informed that she is passing a stone, and treatment will be the same with or without a CT scan. Patient offered CT scan, however she refused and states she has had enough CTs. Patient advised to follow up tomorrow with PCP and urologist, Dr. Hillman. Patient agrees to treatment plan and will comply, return parameters discussed. - Lab Data Result diagrams: 01/31/17 16:58 01/31/17 16:58 Lab Results 01/31/17 01/31/17 01/31/17 Range/Units 16:58 16:58 16:58 WBC 7.2 (3.8-10.6) k/uL RBC 4.28 (3.80-5.40) m/uL Hgb 14.2 D (11.4-16.0) gm/dL Hct 39.9 (34.0-46.0) % MCV 93.3 D (80.0-100.0) fL MCH 33.3 (25.0-35.0) pg MCHC 35.6 (31.0-37.0) g/dL RDW 12.2 (11.5-15.5) % Plt Count 264 (150-450) k/uL Neutrophils % 65 % Lymphocytes % 27 % Monocytes % 5 % Eosinophils % 1 % Basophils % 1 % Neutrophils # 4.7 (1.3-7.7) k/uL Lymphocytes # 1.9 (1.0-4.8) k/uL Monocytes # 0.4 (0-1.0) k/uL Eosinophils # 0.1 (0-0.7) k/uL Basophils # 0.1 (0-0.2) k/uL Sodium 142 (137-145) mmol/L Potassium 3.9 (3.5-5.1) mmol/L Chloride 107 (98-107) mmol/L Carbon Dioxide 23 (22-30) mmol/L Anion Gap 12 mmol/L BUN 10 (7-17) mg/dL Creatinine 1.02 (0.52-1.04) mg/dL Est GFR (MDRD) Af Amer >60 (>60 ml/min/1.73 sqM) Est GFR (MDRD) Non-Af >60 (>60 ml/min/1.73 sqM) Glucose 77 (74-99) mg/dL Calcium 9.8 (8.4-10.2) mg/dL Total Bilirubin 0.6 (0.2-1.3) mg/dL AST 18 (14-36) U/L ALT 31 (9-52) U/L Alkaline Phosphatase 65 (38-126) U/L Total Protein 7.2 (6.3-8.2) g/dL Albumin 4.8 (3.5-5.0) g/dL Amylase 90 (30-110) U/L Lipase 85 (23-300) U/L Urine Color Yellow Urine Appearance Cloudy H (Clear) Urine pH 5.5 (5.0-8.0) Ur Specific [place] 1.021 (1.001-1.035) Urine Protein Trace H (Negative) Urine Glucose (UA) Negative (Negative) Urine Ketones Negative (Negative) Urine Blood Large H (Negative) Urine Nitrite Negative (Negative) Urine Bilirubin Negative (Negative) Urine Urobilinogen <2.0 (<2.0) mg/dL Ur Leukocyte Esterase Negative (Negative) Urine RBC >182 H (0-5) /hpf Urine WBC 1 (0-5) /hpf Ur Squamous Epith Cells 2 (0-4) /hpf Urine Bacteria Occasional H (None) /hpf Urine Mucus Rare H (None) /hpf - Radiology Data Radiology results: report reviewed US shows no acute hydronephrosis. No obstructing stones. KUB negative for any acute process. Disposition Clinical Impression: Right flank pain Disposition: HOME SELF-CARE Condition: Good Instructions: Kidney Stones (ED) Additional Instructions: Patient advised to follow-up with your urologist. Return to emergency department if any alarming signs or symptoms occur. Take the medications as prescribed. Follow-up with her primary care provider as well. Prescriptions: Ketorolac [Toradol] 10 mg PO TID #15 tab Ondansetron Odt [Zofran Odt] 4 mg PO Q8HR PRN #12 tab PRN Reason: Nausea Tamsulosin [Flomax] 0.4 mg PO DAILY #10 cap Referrals: Slade Gonzalez MD [Primary Care Provider] - 1-2 days Time of Disposition: 19:27
[2017-01-31 17:40] LABS: HGB 14.2 gm/dL (11.4-16.0); MCV 93.3 fL (80.0-100.0)
[2017-01-31 17:41] LABS: Appearance,Urine Cloudy (Clear); Bacteria,Urine Occasional /hpf; Bilirubin,Urine Negative (Negative); Glucose,Urine (UA) Negative (Negative); Ketones,Urine Negative (Negative); Leukocyte Esterase,Urine Negative (Negative); Mucus,Urine Rare /hpf; Nitrite,Urine Negative (Negative); PH, Urine 5.5 (5.0-8.0); Particle Count 4719; Protein,Urine Trace (Negative); RBC,Urine >182 /hpf (0-5); Specific Gravity,Urine 1.021 (1.001-1.035); Squamous Epithelial Cell,Urine 2 /hpf (0-4); UA Billing (MACRO vs. MICRO) MICRO; Urobilinogen,Urine <2.0 mg/dL (<2.0); WBC,Urine 1 /hpf (0-5)
[2017-01-31 17:59] LABS: ALT 31 U/L (9-52); AST 18 U/L (14-36); Alkaline Phosphatase 65 U/L (38-126); Amylase 90 U/L (30-110); Anion Gap 12 mmol/L; Blood Urea Nitrogen 10 mg/dL (7-17); Calcium 9.8 mg/dL (8.4-10.2); Carbon Dioxide 23 mmol/L (22-30); Chloride 107 mmol/L (98-107); Glucose 77 mg/dL (74-99); Non-African American GFR(MDRD) >60 (>60 ml/min/1.73 sqM); Potassium 3.9 mmol/L (3.5-5.1); Sodium 142 mmol/L (137-145); Total Bilirubin 0.6 mg/dL (0.2-1.3); Total Protein 7.2 g/dL (6.3-8.2)
[2017-01-31] MEDS ORDERED: TAMSULOSIN 0.4 MG CAP.ER.24H PO STA (18:04)
--- NOTE | 2017-01-31 18:06 | US ---
EXAMINATION TYPE: US renals and bladder DATE OF EXAM: 01/31/2017 COMPARISON: NONE CLINICAL HISTORY: Pain. RLQ pain hematuria hx of rt renal stones stent put in November 2016 EXAM MEASUREMENTS: Right Kidney: 9.0 x 3.4 x 3.6 cm Left Kidney: 9.0 x 4.2 x 3.9 cm Right Kidney: No hydronephrosis or calcifications or masses seen Left Kidney: No hydronephrosis or calcifications or masses seen Bladder: The urinary bladder is anechoic. Bilateral ureteral jets are seen. Bilateral Jets seen: Yes IMPRESSION: NEGATIVE EXAMINATION.
--- NOTE | 2017-01-31 19:10 | XR ---
EXAMINATION TYPE: XR KUB - 2V DATE OF EXAM: 01/31/2017 CLINICAL HISTORY: Pain TECHNIQUE: 2 upright views were obtained. COMPARISON: None. FINDINGS: Gastric lap band is noted. Scattered gas is seen in non-distended small bowel loops. Gas and fecal material is seen in non-dist ended colon. There is no visceromegaly, pneumoperitoneum, or abnormal calcification appreciated. T he lung bases are clear and the osseous structures are intact. Visualized lung bases and pleural spaces are unremarkable. IMPRESSION: NO ACUTE PROCESS.
[2017-01-31] MEDS ORDERED: ONDANSETRON 4 MG ODT STARTER PACK 2 TAB BTL PO STA (19:32)
[2017-01-31 19:46] VITALS: BP 134/75; PULSE 112; RESP 18; TEMP 97.7
== END 2017-01-31 19:51 | disposition home or self-care (01) ==
LOC: EC 15:56
DX: R10.9 Unspecified abdominal pain (principal); R11.2 Nausea with vomiting, unspecified; R31.9 Hematuria, unspecified; K59.00 Constipation, unspecified; J45.909 Unspecified asthma, uncomplicated; E07.9 Disorder of thyroid, unspecified; G89.29 Other chronic pain; F32.9 Major depressive disorder, single episode, unspecified; Z79.1 Long term (current) use of non-steroidal anti-inflammatories (NSAID); Z79.3 Long term (current) use of hormonal contraceptives; Z79.51 Long term (current) use of inhaled steroids; Z79.899 Other long term (current) drug therapy; Z88.8 Allergy status to other drugs, medicaments and biological substances; Z87.11 Personal history of peptic ulcer disease; Z86.69 Personal history of other diseases of the nervous system and sense organs; Z90.49 Acquired absence of other specified parts of digestive tract; Z98.84 Bariatric surgery status; Z87.442 Personal history of urinary calculi
CPT/HCPCS: 99285; 96374; 96375 ×2; 96376; 96361 ×2; 36415; 80053; 82150; 83690; 85025; 81001; 87086; 74000; 76770; J2405; J1885; J1170; S0119

== ENCOUNTER 2017-02-05 17:58 | Emergency (ER) | payer OTHER ==
[2017-02-05] MEDS ORDERED: ONDANSETRON 4 MG/2 ML VIAL IVP STA (18:20)
[2017-02-05] MEDS ORDERED: HYDROmorphone 1 MG/ML 1 ML SYRINGE IVP STA (18:20)
--- NOTE | 2017-02-05 18:37 | ED ---
General Adult HPI - General Chief complaint: Back Pain/Injury Stated complaint: fall, back pain Time Seen by Provider: 02/05/17 18:12 Source: patient, EMS, RN notes reviewed Mode of arrival: EMS Limitations: no limitations - History of Present Illness Initial comments: Patient 36-year-old female who presents emergency room today by EMS, with a chief complaint of a fall that occurred just prior to arrival. She does admit that she was getting out of the shower she slipped on the wet tile and landed on her lower back. She was increased pain locally to the lower back. Does admit to some bleeding down the left leg. Admits to a History of herniated disc. States she has had some pain radiate down the left leg the past. Denies any bowel or bladder incontinence retention. Denies any saddle she is. Denies any other complaints associated symptoms. Patient denies any recent fever, chills, shortness of breath, chest pain, abdominal pain, nausea or vomiting, dysuria or hematuria, constipation or diarrhea, headaches or visual changes, or any other complaints. - Related Data Home Medications Medication Instructions Recorded Confirmed Levalbuterol Nebulized [Xopenex 0.63 mg INHALATION RT-QID PRN 09/30/13 02/05/17 Nebulized] Montelukast [Singulair] 10 mg PO HS 09/30/13 02/05/17 Levalbuterol Hfa Inhaler [Xopenex 2 puff INHALATION RT-Q6H PRN 01/07/14 02/05/17 Hfa Inhaler] ARIPiprazole [Abilify] 5 mg PO QAM 05/04/14 02/05/17 Desvenlafaxine Succinate [Pristiq] 100 mg PO QAM 11/07/15 02/05/17 Medroxyprogesterone Acetate 150 mg IM Q90D 11/07/15 02/05/17 [Depo-Provera] traZODone HCL [Desyrel] 100 mg PO HS PRN 11/21/15 02/05/17 Bisacodyl 5 mg PO DAILY PRN 06/28/16 02/05/17 Butalb/APAP/Caff 50-325-40Mg 1 tab PO Q6H PRN 06/28/16 02/05/17 [Fioricet 50-325-40] Flunisolide [Aerospan] 2 puff INHALATION RT-BID 06/28/16 02/05/17 Omalizumab [Xolair] 300 mg SQ Q30D 06/28/16 02/05/17 Levothyroxine Sodium [Synthroid] 137 mcg PO SUMOWETHFR 07/18/16 02/05/17 Famotidine [Pepcid] 20 mg PO BID 10/02/16 02/05/17 Pregabalin [Lyrica] 50 mg PO TID 11/22/16 02/05/17 Diclofenac Sodium [Voltaren] 75 mg PO BID 01/17/17 02/05/17 Levothyroxine Sodium [Synthroid] 150 mcg PO TUSA 01/31/17 02/05/17 Previous Rx's Medication Instructions Recorded HYDROcodone/APAP 7.5-325MG [[place] 1 tab PO Q6HR PRN #120 tab 10/23/16 7.5-325] Ketorolac [Toradol] 10 mg PO TID #15 tab 01/31/17 Ondansetron Odt [Zofran Odt] 4 mg PO Q8HR PRN #12 tab 01/31/17 Tamsulosin [Flomax] 0.4 mg PO DAILY #10 cap 01/31/17 Cyclobenzaprine [Flexeril] 10 mg PO TID #20 tab 02/05/17 Dexamethasone 0.75 mg PO DIRECTED #12 tablet 02/05/17 Ibuprofen [Motrin] 600 mg PO Q6HR PRN #30 day 02/05/17 Allergies Allergy/AdvReac Type Severity Reaction Status Date / Time albuterol AdvReac Rapid Verified 02/05/17 18:36 Heart Rate Review of Systems ROS Statement: Those systems with pertinent positive or pertinent negative responses have been documented in the HPI. ROS Other: All systems not noted in ROS Statement are negative. Past Medical History Past Medical History: Asthma, Thyroid Disorder Additional Past Medical History / Comment(s): hypoglycemia ,TACHYCARDIA, peptic ulcers, anemia."HAS BEEN ON VENTILATOR IN PAST D/T SEVERE ASTHMA ATTACK, BULEMIA-STATES GETTING BETTER,. CHRONIC BACK PAIN ,SEIZURES HAS SINCE BEEN TAKEN OFF MEDS, elevated blood sugar with steroid use and hypoglycemia when off steroids , "superficial blood clots" bilateral arms. History of Any Multi-Drug Resistant Organisms: MRSA Date of last positivie culture/infection: 08/25/14 MDRO Source:: Groin Past Surgical History: Bariatric Surgery, Cholecystectomy, Orthopedic Surgery, Tonsillectomy Additional Past Surgical History / Comment(s): tilt table test, lap band 2007; NASAL FX REPAIR , ORIF LT ELBOW X2, PAIN PROCEDURES Past Anesthesia/Blood Transfusion Reactions: Postoperative Nausea & Vomiting ( PONV) Past Psychological History: Anxiety, Depression Smoking Status: Never smoker Past Alcohol Use History: None Reported Past Drug Use History: None Reported - Past Family History Mother Family Medical History: Pneumonia Additional Family Medical History / Comment(s): Mother of pneumonia. Patient's son of brain cancer, last mother and father both liver cancer Son(s) Family Medical History: Cancer Additional Family Medical History / Comment(s): Son of brain cancer. Father Family Medical History: Cancer, Liver Disease Additional Family Medical History / Comment(s): Father has liver cancer with surgery. He has hepatitis. General Exam - General Exam Comments Initial Comments: General: The patient is awake and alert, in no distress, and does not appear acutely ill. Eye: Pupils are equal, round and reactive to light, extra-ocular movements are intact. No nystagmus. There is normal conjunctiva bilaterally. No signs of icterus. Ears, nose, mouth and throat: There are moist mucous membranes and no oral lesions. Neck: The neck is supple, there is no tenderness or JVD. Cardiovascular: There is a regular rate and rhythm. No murmur, rub or gallop is appreciated. Respiratory: Lungs are clear to auscultation, respirations are non-labored, breath sounds are equal. No wheezes, stridor, rales, or rhonchi. Gastrointestinal: Soft, non-distended, non-tender abdomen without masses or organomegaly noted. There is no rebound or guarding present. No CVA tenderness. Bowel sounds are unremarkable. Musculoskeletal: Normal appearance of the cervical, thoracic, lumbar spine. No step-offs forms appreciated. Mild bruising lower lumbar. Locally tender from L3 down to S1. Strength 5/5. Sensation intact. Pulses equal bilaterally 2+ . Neurological: A&O x 3. CN II-XII intact, There are no obvious motor or sensory deficits. Coordination appears grossly intact. Speech is normal. Skin: Skin is warm and dry and no rashes or lesions are noted. Psychiatric: Cooperative, appropriate mood & affect, normal judgment. Limitations: no limitations Course Vital Signs 02/05/17 18:09 Temperature 99.4 F Pulse Rate 112 H Respiratory 20 Rate Blood Pressure 142/60 O2 Sat by Pulse 99 Oximetry Medical Decision Making - Medical Decision Making Patient's x-ray reviewed shows no acute fracture dislocation. Patient has no bowel or bladder incontinence or retention. No saddle anesthesia. Patient does have some relief of her pain medication given here in emergency room. She' ll be discharged home advised follow-up the family doctor over the next 2 days. Advised that if symptoms do not improve to discuss a MRI. Advised to return to the emergency room symptoms increase or worsen. She does have [place] at home that she can use for her pain. She is advised to also use ibuprofen for pain along with muscle relaxant and steroid for her radicular pain. Advised that muscle relaxant may make her drowsy. Advised return to emergency room symptoms increase or worsen or for any other concerns. Disposition Clinical Impression: Acute low back pain Disposition: HOME SELF-CARE Condition: Good Instructions: Acute Low Back Pain (ED) Additional Instructions: Please use medication as discussed. Please be aware that medications may make you drowsy. Please discuss possible MRI with your family doctor as discussed. Please follow-up with family doctor in the next 2 days of symptoms have not improved. Please return to emergency room if the symptoms increase or worsen or for any other concerns. Prescriptions: Cyclobenzaprine [Flexeril] 10 mg PO TID #20 tab Dexamethasone 0.75 mg PO DIRECTED #12 tablet Ibuprofen [Motrin] 600 mg PO Q6HR PRN #30 day PRN Reason: Pain Referrals: Slade Gonzalez MD [Primary Care Provider] - 1-2 days Maria Isabel Wright MD [STAFF PHYSICIAN] - 1-2 days Time of Disposition: 19:07
--- NOTE | 2017-02-05 18:54 | XR ---
EXAMINATION TYPE: XR lumbar spine 2 or 3V DATE OF EXAM: 02/05/2017 COMPARISON: 03/07/2016 HISTORY: Back pain TECHNIQUE: 3 views FINDINGS: Lumbar vertebra have normal alignment. Disc spaces are fairly normal. There is some anterio r spurring at L3-4. Very after surgery is noted. Sacroiliac joints are intact. IMPRESSION: Mild spurring at L3-4. No fracture. No change.
[2017-02-05] MEDS ORDERED: KETOROLAC 30 MG/ML 1 ML VIAL IVP STA (19:05)
[2017-02-05] MEDS ORDERED: DIAZEPAM 5 MG TAB PO STA (19:05)
[2017-02-05] MEDS ORDERED: CYCLOBENZAPRINE 10MG STARTER 3 TAB BTL PO STA (19:19)
[2017-02-05 19:35] VITALS: BP 152/70; PULSE 84; RESP 16; TEMP 97.8
== END 2017-02-05 19:33 | disposition home or self-care (01) ==
LOC: EC 17:58
DX: S30.0XXA Contusion of lower back and pelvis, initial encounter (principal); J45.909 Unspecified asthma, uncomplicated; E07.9 Disorder of thyroid, unspecified; F32.9 Major depressive disorder, single episode, unspecified; Z86.2 Personal history of diseases of the blood and blood-forming organs and certain disorders involving the immune mechanism; Z88.8 Allergy status to other drugs, medicaments and biological substances; Z79.1 Long term (current) use of non-steroidal anti-inflammatories (NSAID); Z79.3 Long term (current) use of hormonal contraceptives; Z79.51 Long term (current) use of inhaled steroids; Z79.899 Other long term (current) drug therapy; W01.0XXA Fall on same level from slipping, tripping and stumbling without subsequent striking against object, initial encounter
CPT/HCPCS: 72100; 99284; 96374; 96375 ×2; J2405; J1885; J1170

== ENCOUNTER → 2017-02-19 | Outpatient (CLI) | payer OTHER ==
--- NOTE | 2017-02-19 23:23 | MR ---
EXAMINATION TYPE: MR lumbar spine wo/w con DATE OF EXAM: 02/19/2017 COMPARISON: Prior MRI lumbar spine March 13, 2016. Prior lumbar spine x-ray February 05, 2017. HISTORY: Low back pain per order. Low back pain for many years causing pain into left buttocks and th igh aggravated by fall injury February 12 per patient. TECHNIQUE: Multiplanar, multisequence images of the lumbar spine is performed without and with IV contrast, util izing 7 mL intravenous Gadavist FINDINGS: Sagittal images of the lumbar spine show vertebral body heights and alignment to appear sat isfactory. There remains disc desiccation L3-L4 through the L5-S1 levels. There remains mild disc spa ce narrowing L3-L4 level. There is increased signal posteriorly consistent with annular tears at L4-L 5 and L5-S1 levels redemonstrated. Small posterior disc herniations are redemonstrated L4-L5 and L5-S 1 levels on sagittal images. The conus medullaris remains normal in position and signal ending at mid L1 level. The bone marrow signal intensity is within normal limits. No suspicious postcontrast enha ncement is seen. There is minimal multilevel anterior spurring. Axial images show the T12-L1, L1-L2, and L2-L3 levels all to remain within normal limits. Axial images at the L3-L4 level show broad-based posterior disc protrusion minimally effacing anterio r thecal sac, bilateral neural foramina are patent. Mild facet degenerative changes are redemonstrate d bilaterally. No significant change from prior study is seen. Axial images at L4-L5 level show mild to moderate facet degenerative changes and ligamentum flavum hy pertrophy mildly effacing posterior lateral thecal sac. There is broad disc bulge mildly effacing ant erior thecal sac. There is mild to moderate bilateral anterior inferior neural foraminal narrowing at this level redemonstrated. No significant change from prior study is seen. Axial images at L5-S1 level show mild facet degenerative changes bilaterally. There is central disc p rotrusion but spinal canal is preserved and bilateral neural foramina are patent. No significant flores ge from prior study is seen. IMPRESSION: Multilevel degenerative changes L3-L4 through the L5-S1 levels as detailed above, no sign ificant change or progression from prior MRI is noted.
== END | disposition home or self-care (01) ==
LOC: RADMRIMAIN 20:39
PROVIDERS: ATTEND Psychiatry & Neurology Neurology
DX: M47.816 Spondylosis without myelopathy or radiculopathy, lumbar region (principal)
CPT/HCPCS: 72158; A9581

== ENCOUNTER 2017-02-21 10:09 | Inpatient (IN) | payer OTHER ==
--- NOTE | 2017-02-21 10:45 | ED ---
General Adult HPI - General Chief complaint: Upper Respiratory Infection Stated complaint: Asthma Time Seen by Provider: 02/21/17 10:25 Source: patient, RN notes reviewed Mode of arrival: ambulatory Limitations: no limitations - History of Present Illness Initial comments: 36-year-old female presents to the emergency department with a chief complaint of cough and shortness of breath. Patient suffers from asthma. Patient states she's had this cough for the last few days. She started steroids yesterday but she continues to have shortness of breath. She states she feels better with her breathing treatments but they only last for a small period of time. Patient was concerned due to her continued cough and shortness of breath sounds she thought that she should be evaluated. Patient states that she went to her doctor and they were concerned about her elevated heart rates of they sent her here. Patient states she does use Depakote. Patient denies any long trips or travel. Patient denies any recent fever, chills, back pain, abdominal pain, nausea vomiting, numbness or tingling, dysuria or hematuria, constipation or diarrhea, headaches or visual changes, or any other current symptoms. - Related Data Home Medications Medication Instructions Recorded Confirmed Levalbuterol Nebulized [Xopenex 0.63 mg INHALATION RT-QID PRN 09/30/13 02/21/17 Nebulized] Montelukast [Singulair] 10 mg PO HS 09/30/13 02/21/17 Levalbuterol Hfa Inhaler [Xopenex 2 puff INHALATION RT-Q6H PRN 01/07/14 02/21/17 Hfa Inhaler] ARIPiprazole [Abilify] 5 mg PO QAM 05/04/14 02/21/17 Desvenlafaxine Succinate [Pristiq] 100 mg PO QAM 11/07/15 02/21/17 Medroxyprogesterone Acetate 150 mg IM Q90D 11/07/15 02/21/17 [Depo-Provera] traZODone HCL [Desyrel] 100 mg PO HS PRN 11/21/15 02/21/17 Bisacodyl 5 mg PO DAILY PRN 06/28/16 02/21/17 Butalb/APAP/Caff 50-325-40Mg 1 tab PO Q6H PRN 06/28/16 02/21/17 [Fioricet 50-325-40] Flunisolide [Aerospan] 2 puff INHALATION RT-BID 06/28/16 02/21/17 Omalizumab [Xolair] 300 mg SQ Q30D 06/28/16 02/21/17 Levothyroxine Sodium [Synthroid] 137 mcg PO DAILY 07/18/16 02/21/17 Famotidine [Pepcid] 20 mg PO BID 10/02/16 02/21/17 Pregabalin [Lyrica] 50 mg PO TID 11/22/16 02/21/17 predniSONE See Taper PO DAILY 02/21/17 02/21/17 Previous Rx's Medication Instructions Recorded HYDROcodone/APAP 7.5-325MG [[place] 1 tab PO Q6HR PRN #120 tab 10/23/16 7.5-325] Ondansetron Odt [Zofran Odt] 4 mg PO Q8HR PRN #12 tab 01/31/17 Tamsulosin [Flomax] 0.4 mg PO DAILY #10 cap 01/31/17 Ibuprofen [Motrin] 600 mg PO Q6HR PRN #30 day 02/05/17 Allergies Allergy/AdvReac Type Severity Reaction Status Date / Time albuterol AdvReac Rapid Verified 02/21/17 11:03 Heart Rate Review of Systems ROS Statement: Those systems with pertinent positive or pertinent negative responses have been documented in the HPI. ROS Other: All systems not noted in ROS Statement are negative. Past Medical History Past Medical History: Asthma, Thyroid Disorder Additional Past Medical History / Comment(s): hypoglycemia ,TACHYCARDIA, peptic ulcers, anemia."HAS BEEN ON VENTILATOR IN PAST D/T SEVERE ASTHMA ATTACK, BULEMIA-STATES GETTING BETTER,. CHRONIC BACK PAIN ,SEIZURES HAS SINCE BEEN TAKEN OFF MEDS, elevated blood sugar with steroid use and hypoglycemia when off steroids , "superficial blood clots" bilateral arms. History of Any Multi-Drug Resistant Organisms: MRSA Date of last positivie culture/infection: 08/25/14 MDRO Source:: Groin Past Surgical History: Bariatric Surgery, Cholecystectomy, Orthopedic Surgery, Tonsillectomy Additional Past Surgical History / Comment(s): tilt table test, lap band 2007; NASAL FX REPAIR , ORIF LT ELBOW X2, PAIN PROCEDURES Past Anesthesia/Blood Transfusion Reactions: Postoperative Nausea & Vomiting ( PONV) Past Psychological History: Anxiety, Depression Smoking Status: Never smoker Past Alcohol Use History: None Reported Past Drug Use History: None Reported - Past Family History Mother Family Medical History: Pneumonia Additional Family Medical History / Comment(s): Mother of pneumonia. Patient's son of brain cancer, last mother and father both liver cancer Son(s) Family Medical History: Cancer Additional Family Medical History / Comment(s): Son of brain cancer. Father Family Medical History: Cancer, Liver Disease Additional Family Medical History / Comment(s): Father has liver cancer with surgery. He has hepatitis. General Exam Limitations: no limitations General appearance: alert, in no apparent distress Head exam: Present: atraumatic, normocephalic, normal inspection Eye exam: Present: normal appearance, PERRL, EOMI. Absent: scleral icterus, conjunctival injection, periorbital swelling ENT exam: Present: normal exam, mucous membranes moist Neck exam: Present: normal inspection. Absent: tenderness, meningismus, lymphadenopathy Respiratory exam: Present: normal lung sounds bilaterally Cardiovascular Exam: Present: regular rate, normal rhythm, normal heart sounds. Absent: systolic murmur, diastolic murmur, rubs, gallop, clicks Neurological exam: Present: alert, oriented X3 Psychiatric exam: Present: normal affect, normal mood Skin exam: Present: warm, dry, intact, normal color. Absent: rash Course Vital Signs 02/21/17 02/21/17 02/21/17 10:18 11:52 12:15 Temperature 98.5 F Pulse Rate 105 H 102 H 110 H Respiratory 18 Rate Blood Pressure 136/77 O2 Sat by Pulse 99 Oximetry 02/21/17 02/21/17 02/21/17 12:33 12:34 13:22 Temperature 99 F Pulse Rate 136 H 116 H 143 H Respiratory 22 22 Rate Blood Pressure 117/74 122/64 O2 Sat by Pulse 99 96 Oximetry 02/21/17 14:25 Temperature 98.4 F Pulse Rate 140 H Respiratory 20 Rate Blood Pressure 121/60 O2 Sat by Pulse 95 Oximetry - Reevaluation(s) Reevaluation #1: 02/21/17 11:37 Patient reevaluated at this time wheezing is starting to recur. At this time we will give the patient treatment. EKG Findings - EKG Comments: EKG Findings:: Sinus tachycardia 104 bpm, normal axis, no atopy, no S-T depressions or elevations,. Repeat EKG at 1248: Sinus tachycardia 140 bpm, normal axis, no atopy, no S-T depressions or elevations, Medical Decision Making - Medical Decision Making 36 yo female presents for cough and shortness of breath. At this time patient does have a wheezing that returned after about 1 hour being here. We did start a breathing treatment however patient became tachycardic to the 160s. The patient was stopped about half way through. She continues to be around 140. EKG was reviewed. This time we will admit the patient for continued observation. We will order breathing treatments and steroids for the patient upon admission. We did discuss this with the patient who is in agreement plan. All questions have been answered. Patient will be admitted. - Lab Data Result diagrams: 02/21/17 10:45 02/21/17 10:45 Lab Results 02/21/17 02/21/17 02/21/17 Range/Units 10:45 10:45 10:45 WBC 8.5 (3.8-10.6) k/uL RBC 3.85 (3.80-5.40) m/uL Hgb 12.8 (11.4-16.0) gm/dL Hct 37.3 (34.0-46.0) % MCV 97.1 (80.0-100.0) fL MCH 33.3 (25.0-35.0) pg MCHC 34.3 (31.0-37.0) g/dL RDW 12.5 (11.5-15.5) % Plt Count 193 (150-450) k/uL Neutrophils % 92 % Lymphocytes % 6 % Monocytes % 1 % Eosinophils % 0 % Basophils % 0 % Neutrophils # 7.8 H (1.3-7.7) k/uL Lymphocytes # 0.5 L (1.0-4.8) k/uL Monocytes # 0.1 (0-1.0) k/uL Eosinophils # 0.0 (0-0.7) k/uL Basophils # 0.0 (0-0.2) k/uL D-Dimer 0.55 (<0.60) mg/L FEU Sodium 143 (137-145) mmol/L Potassium 4.1 (3.5-5.1) mmol/L Chloride 113 H (98-107) mmol/L Carbon Dioxide 19 L (22-30) mmol/L Anion Gap 11 mmol/L BUN 17 (7-17) mg/dL Creatinine 0.90 (0.52-1.04) mg/dL Est GFR (MDRD) Af Amer >60 (>60 ml/min/1.73 sqM) Est GFR (MDRD) Non-Af >60 (>60 ml/min/1.73 sqM) Glucose 96 (74-99) mg/dL Calcium 9.3 (8.4-10.2) mg/dL Total Bilirubin 0.4 (0.2-1.3) mg/dL AST 17 (14-36) U/L ALT 23 (9-52) U/L Alkaline Phosphatase 57 (38-126) U/L Total Protein 6.5 (6.3-8.2) g/dL Albumin 4.1 (3.5-5.0) g/dL Urine Color Urine Appearance (Clear) Urine pH (5.0-8.0) Ur Specific [place] (1.001-1.035) Urine Protein (Negative) Urine Glucose (UA) (Negative) Urine Ketones (Negative) Urine Blood (Negative) Urine Nitrite (Negative) Urine Bilirubin (Negative) Urine Urobilinogen (<2.0) mg/dL Ur Leukocyte Esterase (Negative) Urine HCG, Qual (Not Detectd) 02/21/17 02/21/17 Range/Units 10:45 10:45 WBC (3.8-10.6) k/uL RBC (3.80-5.40) m/uL Hgb (11.4-16.0) gm/dL Hct (34.0-46.0) % MCV (80.0-100.0) fL MCH (25.0-35.0) pg MCHC (31.0-37.0) g/dL RDW (11.5-15.5) % Plt Count (150-450) k/uL Neutrophils % % Lymphocytes % % Monocytes % % Eosinophils % % Basophils % % Neutrophils # (1.3-7.7) k/uL Lymphocytes # (1.0-4.8) k/uL Monocytes # (0-1.0) k/uL Eosinophils # (0-0.7) k/uL Basophils # (0-0.2) k/uL D-Dimer (<0.60) mg/L FEU Sodium (137-145) mmol/L Potassium (3.5-5.1) mmol/L Chloride (98-107) mmol/L Carbon Dioxide (22-30) mmol/L Anion Gap mmol/L BUN (7-17) mg/dL Creatinine (0.52-1.04) mg/dL Est GFR (MDRD) Af Amer (>60 ml/min/1.73 sqM) Est GFR (MDRD) Non-Af (>60 ml/min/1.73 sqM) Glucose (74-99) mg/dL Calcium (8.4-10.2) mg/dL Total Bilirubin (0.2-1.3) mg/dL AST (14-36) U/L ALT (9-52) U/L Alkaline Phosphatase (38-126) U/L Total Protein (6.3-8.2) g/dL Albumin (3.5-5.0) g/dL Urine Color Yellow Urine Appearance Clear (Clear) Urine pH 5.5 (5.0-8.0) Ur Specific [place] 1.026 (1.001-1.035) Urine Protein Trace H (Negative) Urine Glucose (UA) Negative (Negative) Urine Ketones Negative (Negative) Urine Blood Negative (Negative) Urine Nitrite Negative (Negative) Urine Bilirubin Negative (Negative) Urine Urobilinogen <2.0 (<2.0) mg/dL Ur Leukocyte Esterase Negative (Negative) Urine HCG, Qual Not Detected (Not Detectd) - Radiology Data Radiology results: report reviewed, image reviewed Disposition Clinical Impression: Asthma exacerbation, Tachycardia, Failure of outpatient treatment Disposition: ADMITTED IP TO THIS [facility] Condition: Stable Referrals: Slade Gonzalez MD [Primary Care Provider] - 1-2 days Decision Date: 02/21/17 Decision Time: 14:42
[2017-02-21] MEDS ORDERED: SODIUM CHLORIDE 0.9% 1,000 ML IV STA (10:47)
[2017-02-21] MEDS ORDERED: methylPREDNISolone SOD SUCCI 125 MG/2 ML VIAL IV STA (10:47)
[2017-02-21 11:00] LABS: Appearance,Urine Clear (Clear); Bilirubin,Urine Negative (Negative); Glucose,Urine (UA) Negative (Negative); Ketones,Urine Negative (Negative); Leukocyte Esterase,Urine Negative (Negative); Nitrite,Urine Negative (Negative); PH, Urine 5.5 (5.0-8.0); Protein,Urine Trace (Negative); Specific Gravity,Urine 1.026 (1.001-1.035); UA Billing (MACRO vs. MICRO) CHEM; Urobilinogen,Urine <2.0 mg/dL (<2.0)
[2017-02-21 11:02] LABS: Basophils % (A) 0 %; CH 33.8; Eosinophils % (A) 0 %; HCT 37.3 % (34.0-46.0); HDW 2.99; HGB 12.8 gm/dL (11.4-16.0); Luc # (Auto) 0.03; Luc % (Auto) 0; Lymphocytes # (A) 0.5 k/uL (1.0-4.8); Lymphocytes % (A) 6 %; MCH 33.3 pg (25.0-35.0); MCHC 34.3 g/dL (31.0-37.0); MCV 97.1 fL (80.0-100.0); Mean Platelet Volume 6.8; Monocytes # (A) 0.1 k/uL (0-1.0); Monocytes % (A) 1 %; Neutrophils # (A) 7.8 k/uL (1.3-7.7); Neutrophils % (A) 92 %; RBC 3.85 m/uL (3.80-5.40); RDW 12.5 % (11.5-15.5); WBC 8.5 k/uL (3.8-10.6)
[2017-02-21 11:08] LABS: ALT 23 U/L (9-52); AST 17 U/L (14-36); Alkaline Phosphatase 57 U/L (38-126); Anion Gap 11 mmol/L; Blood Urea Nitrogen 17 mg/dL (7-17); Calcium 9.3 mg/dL (8.4-10.2); Carbon Dioxide 19 mmol/L (22-30); Chloride 113 mmol/L (98-107); Glucose 96 mg/dL (74-99); Non-African American GFR(MDRD) >60 (>60 ml/min/1.73 sqM); Potassium 4.1 mmol/L (3.5-5.1); Sodium 143 mmol/L (137-145); Total Bilirubin 0.4 mg/dL (0.2-1.3); Total Protein 6.5 g/dL (6.3-8.2)
--- NOTE | 2017-02-21 11:23 | XR ---
EXAMINATION TYPE: XR chest 2V DATE OF EXAM: 02/21/2017 COMPARISON: 01/18/2017 TECHNIQUE: PA and lateral views submitted. HISTORY: Cough FINDINGS: The lungs are clear and there is no pneumothorax, pleural effusion, or focal pneumonia. Hypertrophic and degenerative change of the spine. LAP-BAND catheter noted in the abdomen. IMPRESSION: 1. No acute process.
[2017-02-21] MEDS ORDERED: IPRATROPIUM 0.5 MG/2.5 ML NEBU INHALATION STA (11:40)
[2017-02-21] MEDS ORDERED: LEVALBUTEROL NEB 1.25 MG/3 ML AMP INHALATION STA (11:40)
[2017-02-21] MEDS ORDERED: KETOROLAC 30 MG/ML 1 ML VIAL IVP STA (12:15)
[2017-02-21] MEDS ORDERED: HYDROmorphone 1 MG/ML 1 ML SYRINGE IVP STA (12:47)
[2017-02-21] MEDS ORDERED: ONDANSETRON 4 MG/2 ML VIAL IVP STA (13:04)
--- NOTE | 2017-02-21 13:20 | XR ---
EXAMINATION TYPE: XR chest 1V portable DATE OF EXAM: 02/21/2017 Comparison: 02/21/2017 Clinical History: 36-year-old female cough Findings: The cardiomediastinal silhouette, aorta, and pulmonary vasculature are within normal limits. Some rolon zy lower lung densities related to overlying soft tissue. Otherwise, lungs and pleural spaces are nyla ar. Impression: No acute cardiopulmonary process.
[2017-02-21] MEDS ORDERED: LORazepam 2 MG/ML INJ IV STA (14:11)
[2017-02-21] MEDS ORDERED: BUTALB/APAP/CAFF 50-325-40MG TAB PO PRN (14:44)
[2017-02-21] MEDS ORDERED: BISACODYL 5 MG TABLET.DR PO PRN (14:44)
[2017-02-21] MEDS ORDERED: traZODone HCL 100 MG TAB PO PRN (14:44)
[2017-02-21] MEDS ORDERED: IBUPROFEN 600 MG TAB PO PRN (14:44)
[2017-02-21] MEDS ORDERED: OMALIZUMAB 150 MG VIAL SQ SCH (14:45)
[2017-02-21] MEDS: SODIUM CHLORIDE 0.9% 1,000 ML IV SCH (15:18)
[2017-02-21] MEDS ORDERED: traMADol 50 MG TAB PO PRN (16:03)
[2017-02-21] MEDS: PREGABALIN 50 MG CAP PO SCH ×2 (16:22→21:13)
[2017-02-21] MEDS: HYDROcodone/APAP 7.5-325MG 1 EACH TAB PO PRN (16:22)
[2017-02-21] MEDS: METOPROLOL TARTRATE 12.5 MG TAB PO SCH (18:08)
[2017-02-21] MEDS: methylPREDNISolone SOD SUCCI 125 MG/2 ML VIAL IV SCH ×2 (18:10→23:50)
[2017-02-21] MEDS ORDERED: TEMAZEPAM 15 MG CAP PO PRN (18:15)
[2017-02-21] MEDS ORDERED: ALPRAZolam 0.25 MG TAB PO PRN (18:15)
[2017-02-21] MEDS: LEVALBUTEROL NEB 1.25 MG/3 ML AMP INHALATION SCH ×2 (18:21→20:15)
[2017-02-21] MEDS: HYDROmorphone 0.5 MG/0.5 ML SYRINGE IVP PRN (18:57)
[2017-02-21] MEDS: BUDESONIDE 0.5 MG/2 ML NEBU INHALATION SCH (20:14)
[2017-02-21] MEDS: IPRATROPIUM 0.5 MG/2.5 ML NEBU INHALATION SCH (20:15)
[2017-02-21] MEDS ORDERED: MONTELUKAST 10 MG TAB PO SCH (21:00)
[2017-02-21] MEDS: HEPARIN SODIUM,PORCINE 5,000 UNIT/ML 1 ML VIAL SQ SCH (21:13)
[2017-02-21] MEDS: FAMOTIDINE 20 MG TAB PO SCH (21:13)
[2017-02-21] MEDS: INSULIN LISPRO (humaLOG) 300 UNIT/3 ML VIAL SQ SCH (21:14)
[2017-02-21 21:15] LABS: Glucose,Whole Blood 139 mg/dL (75-99)
[2017-02-21 21:20] LABS: Hemoglobin A1C 4.6 % (4.2-6.1)
--- NOTE | 2017-02-21 21:31 | HP ---
HISTORY AND PHYSICAL CHIEF COMPLAINT: Shortness of breath. HISTORY OF PRESENT ILLNESS: This 36-year-old woman with a past medical history of multiple medical problems including history of asthma, history of hypothyroid, history of tachycardia, peptic ulcer disease, history of bariatric surgery, history of anxiety and depression, being followed Carlos in the outpatient setting, is complaining of shortness for the last 3 to 4 days. The patient was seen by Dr. Yolanda Jalloh from Pulmonology also. The patient also has left-sided chest pain. The patient has been coughing also. Because of increasing difficulty, the patient came to [facility] and was admitted for further evaluation and treatment. There is no history of fever or rigors. No history of headache, loss of consciousness or seizures. PAST MEDICAL: Asthma, hypothyroidism, history of tachycardia, anxiety and depression. MEDICATIONS: Prior to admission include home medications of: 1. Prednisone taper. 2. Desyrel. 3. Trazodone 100 mg p.o. at bedtime p.r.n. 4. Flomax 0.4 daily. 5. Lyrica 50 mg p.o. daily. 6. Zofran 4 mg every 8 hours. 7. Xolair 300 mg subcu 30 day. 8. Singular 10 mg at bedtime. 9. Depo-Provera 150 mg. 10.Synthroid 137 mcg p.o. daily. 11.Xopenex 0.6 q.i.d. p.r.n. 12.Motrin 600 mg every 6 hours p.r.n. 13.[place] 7.5 every 6 hours p.r.n. 15.Pepcid 20 mg b.i.d. 16.Pristiq 100 mg p.o. at bedtime. 17.Bisacodyl 5 mg daily p.r.n. 18.Abilify 5 mg a.m. ALLERGIES: Albuterol. FAMILY HISTORY: History of cancer in the family. SOCIAL HISTORY: History of occasional alcohol. No history of smoking. REVIEW OF SYSTEMS: ENT: No diminished hearing or vision. CARDIOVASCULAR: No angina or palpitations. RESPIRATORY: As mentioned. GI: No nausea. : No dysuria. NERVOUS SYSTEM: No numbness or weakness. ALLERGY: No asthma or hayfever. MUSCULOSKELETAL: As mentioned. RHEUMATOLOGY: History of anemia. ENDOCRINE: No history of diabetes or hypothyroidism. CONSTITUTIONAL: As mentioned. DERMATOLOGY: Negative. PHYSICAL EXAMINATION: GENERAL: Alert, oriented x3. VITAL SIGNS: Pulse 153, blood pressure 106/60, respirations 20, temperature 98.4 , pulse ox 94% room air. HEENT: Conjunctivae normal. Oral mucosa moist. NECK: No jugular venous distention. No lymph nodes palpable. CARDIOVASCULAR: Sinus tachycardia. RESPIRATORY: Breath sounds diminished in the bases. A few scattered rhonchi and crackles. ABDOMEN: Soft, nontender. No mass palpable. EXTREMITIES: Legs no edema. SKIN: No rashes. SIZE TESTER: Higher functions as mentioned. Moves all four limbs. LYMPHATICS: No lymph nodes palpable in the neck, axillae or groin. LABS: At this time show CBC within normal limits, CO2 of 19. Chest x-ray done personally reviewed, showed no acute abnormality. ASSESSMENT: 1. Acute bronchial asthma acute exacerbation with acute purulent tracheobronchitis. 2. Left-sided chest pain. Possibly musculoskeletal. 3. History of asthma. 4. History of hypothyroidism. 5. History of peptic ulcer disease. 6. History of tachycardia, possibly sinus. 7. History of bariatric surgery. 8. Cholecystitis. 9. History of anxiety, depression. RECOMMENDATION AND DISCUSSION: In this 36-year-old woman who presented with multiple complex medical issues, we will monitor the patient closely. Continue the current management. I recommend bronchodilators. Otherwise empiric antibiotics. Pulmonary consultation. Guarded prognosis because of multiple complex medical issues. Further recommendations to follow. MMODL / VICKIEN: [id number] / MTDD
[2017-02-22] MEDS: LEVALBUTEROL NEB 1.25 MG/3 ML AMP INHALATION PRN ×2 (00:19→03:13)
[2017-02-22] MEDS: HYDROmorphone 0.5 MG/0.5 ML SYRINGE IVP PRN ×2 (00:52→08:10)
[2017-02-22] MEDS: SODIUM CHLORIDE 0.9% 1,000 ML IV SCH ×2 (04:12→11:07)
[2017-02-22] MEDS: HYDROcodone/APAP 7.5-325MG 1 EACH TAB PO PRN ×2 (04:38→12:49)
[2017-02-22] MEDS: ONDANSETRON ODT 4 MG TAB PO PRN ×2 (04:40→11:03)
[2017-02-22 06:15] LABS: Glucose,Whole Blood 139 mg/dL (75-99)
[2017-02-22] MEDS ORDERED: LEVOTHYROXINE 137 MCG TAB PO SCH (06:30)
[2017-02-22] MEDS: INSULIN LISPRO (humaLOG) 300 UNIT/3 ML VIAL SQ SCH ×2 (06:41→12:07)
[2017-02-22] MEDS: methylPREDNISolone SOD SUCCI 125 MG/2 ML VIAL IV SCH ×2 (06:41→11:04)
[2017-02-22 06:48] LABS: Basophils % (A) 0 %; CH 34.3; CHCM 35.1; Eosinophils % (A) 0 %; HCT 32.7 % (34.0-46.0); HDW 2.96; HGB 11.1 gm/dL (11.4-16.0); Luc # (Auto) 0.02; Luc % (Auto) 0; Lymphocytes # (A) 0.4 k/uL (1.0-4.8); Lymphocytes % (A) 6 %; MCH 33.5 pg (25.0-35.0); MCV 98.5 fL (80.0-100.0); Mean Platelet Volume 7.6; Monocytes # (A) 0.1 k/uL (0-1.0); Monocytes % (A) 2 %; Neutrophils # (A) 5.7 k/uL (1.3-7.7); Neutrophils % (A) 92 %; RBC 3.32 m/uL (3.80-5.40); RDW 13.4 % (11.5-15.5); WBC 6.3 k/uL (3.8-10.6); WBC (Perox) 6.77
[2017-02-22 06:58] LABS: Anion Gap 8 mmol/L; Blood Urea Nitrogen 12 mg/dL (7-17); Carbon Dioxide 21 mmol/L (22-30); Chloride 113 mmol/L (98-107); Glucose 147 mg/dL (74-99); Non-African American GFR(MDRD) >60 (>60 ml/min/1.73 sqM); Potassium 4.4 mmol/L (3.5-5.1); Sodium 142 mmol/L (137-145)
[2017-02-22] MEDS ORDERED: PANTOPRAZOLE 40 MG TABLET PO SCH (07:30)
[2017-02-22] MEDS: LEVALBUTEROL NEB 1.25 MG/3 ML AMP INHALATION SCH ×2 (07:40→13:29)
[2017-02-22] MEDS: IPRATROPIUM 0.5 MG/2.5 ML NEBU INHALATION SCH ×2 (07:40→13:36)
[2017-02-22] MEDS: BUDESONIDE 0.5 MG/2 ML NEBU INHALATION SCH (07:41)
[2017-02-22] MEDS: METOPROLOL TARTRATE 12.5 MG TAB PO SCH (08:08)
[2017-02-22] MEDS: FAMOTIDINE 20 MG TAB PO SCH (08:09)
[2017-02-22] MEDS: PREGABALIN 50 MG CAP PO SCH (08:10)
[2017-02-22] MEDS: HEPARIN SODIUM,PORCINE 5,000 UNIT/ML 1 ML VIAL SQ SCH (08:11)
[2017-02-22] MEDS ORDERED: DESVENLAFAXINE SUCCINATE 50 MG TAB.ER.24H PO SCH (09:00)
[2017-02-22] MEDS ORDERED: ARIPiprazole 5 MG TAB PO SCH (09:00)
[2017-02-22] MEDS ORDERED: TAMSULOSIN 0.4 MG CAP.ER.24H PO SCH (09:00)
[2017-02-22 10:23] VITALS: BMI 28.8
[2017-02-22 11:59] LABS: Glucose,Whole Blood 97 mg/dL (75-99)
[2017-02-22 12:08] VITALS: BP 114/67; RESP 18; TEMP 96.4
[2017-02-22] MEDS ORDERED: RX INFO: IV CONTRAST WAS GIVEN 1 EACH MISC MISCELLANE PRN ×2 (12:40→12:47)
--- NOTE | 2017-02-22 13:36 | CT ---
EXAMINATION TYPE: CT angio chest DATE OF EXAM: 02/22/2017 COMPARISON: CT angiography chest dated 11/07/2015. HISTORY: Coughing up blood CT DLP: 477 mGycm. Automated Exposure Control for Dose Reduction was Utilized. CONTRAST: CTA scan of the thorax is performed with IV Contrast, patient injected with 100 mL of Omnipaque 350, pulmonary embolism protocol. MIP Images are created on CT scanner and reviewed. FINDINGS: LUNGS: The lungs are grossly clear, there is no concerning parenchymal mass or nodule identified. Mi nimal subsegmental bibasilar dependent atelectasis is present. There is no pleural effusion or pneumo thorax seen. The tracheobronchial tree is patent. MEDIASTINUM: There is satisfactory enhancement of the pulmonary artery and its branches, there is no CT evidence for pulmonary embolism. There are no greater than 1 cm hilar or mediastinal lymph nodes. No cardiomegaly or pericardial effusion is seen. OTHER: Insufflated gastric lap band is seen just beyond the gastroesophageal junction. The proximal e sophagus is fluid-filled containing air-fluid levels and dilated distally up to 3.3 cm circumferentia l mild mucosal thickening. Cholecystectomy clips are noted within the gallbladder fossa. Very mild de generative changes of the thoracic spine are noted. IMPRESSION: 1. No evidence of pulmonary embolus. 2. Dilated and fluid-filled esophagus proximal to the gastric lap band with circumferential mild dist al esophageal mucosal thickening. Fluid is seen within the esophagus above the suprasternal notch. No current evidence of aspiration. 3. Minimal subsegmental bibasilar dependent atelectasis.
[2017-02-22 13:44] VITALS: PULSE 100
--- NOTE | 2017-02-22 14:11 | CONS ---
CONSULTATION Josephine Delgado is a 36-year-old female with a history of increasing shortness of breath. For about 3 to 4 days duration she had left-sided chest pain more in the back than in the front and subsequently was admitted to the hospital for further evaluation and management. She denied any fever or chills. PAST MEDICAL HISTORY: Positive for severe steroid-dependent asthma for which she subsequently was able to be weaned off steroids after she was started on Xolair. 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 History of nasal fracture repair. FAMILY HISTORY: Positive for asthma and pneumonia in her mother, history of brain cancer in a son, mother and father had liver cancer as well. MEDICATIONS: Prior to admission were trazodone, Flomax, Lyrica, Zofran, Xolair, Singulair, Depo- Provera, Synthroid, Xopenex, Motrin, [place], Aerospan, Pepcid, Pristiq, Fioricet, Desacodyle, Abilify, prednisone, Lopressor and Ceftin. REVIEW OF SYSTEMS: Noncontributory. PHYSICAL EXAMINATION: Respiratory rate is 18, pulse rate of 89, temperature 98.4, blood pressure 114/57. O2 saturation on room is 98%. HEENT reveals pupils that are equal. Chest reveals decreased breath sounds. Prolonged expiration. Pain, wheeze only on forced expiration. Cardiovascular system reveals a S1, S2. Abdomen is soft. There is no pedal edema. LABS: Reveal a white count of 6.3, hemoglobin of 11.1, sodium 144, potassium 4.4, chloride 113, bicarb 21, BUN 12, creatinine 0.79, glucose is 139, CT scan of the chest had been ordered by me which shows no evidence of PE. IMPRESSION: 1. Severe asthma with acute exacerbation. 2. Chest pain. Possible pulmonary embolism. Cardiac etiology versus musculoskeletal etiology. At this point in time, patient seems to have improved with IV steroids overnight, would agree with discharge planning on a tapering dose of steroids in the form of prednisone, starting at 60 mg and tapered over at least 12 days. She was counseled regarding her condition and would need to resume montelukast steroid inhalers and levalbuterol as an outpatient. If she has an appointment to see me within a week and would recommend that he keep that appointment. I would like to thank you for allowing me the privilege of participating in her care. JEANNINE / MONTY: [id number] /
--- NOTE | 2017-02-22 18:08 | P.DS ---
Providers Date of admission: 02/21/17 14:55 Attending physician: Kelsey Melvin Consults: 02/21/17 18:15 Consult Physician Routine Consulting Provider: Toby Jalloh Consult Reason/Comments: asthma Do you want consulting provider notified?: Yes Primary care physician: [facility] Course: This 36-year-old woman with a past medical history multiple medical problems was admitted with acute bronchial asthma acute exacerbation as well as acute purulent tracheobronchitis. Patient was treated with IV systemic steroids and antibiotics and as well as bronchodilators. Patient was seen by Dr. EVELYN Jalloh who is the university internship. Patient improved significantly. Patient also had sinus tachycardia which was treated with the beta blockers and improved. On exam vitals stable. Cardio S1 and S2 normal. Respiratory system few scattered rhonchi. Abdomen soft nontender. Final diagnosis 1. Acute bronchial asthma exacerbation with acute purulent acute bronchitis. 2. Left-sided chest pain possibly muscle skeletal. 3. History of asthma. 4. History of hypothyroidism. 5. History of peptic ulcer disease. 6. History of tachycardia possibly sinus. 7. Stable bariatric surgery 8. History of Cholecystitis. 9. History of anxiety depression. Patient Condition at Discharge: Stable Plan - Discharge Summary New Discharge Prescriptions: New Metoprolol Tartrate [Lopressor] 12.5 mg PO BID #60 tab predniSONE 10 mg PO DIRECTED #30 tab Cefuroxime Axetil [Ceftin] 500 mg PO BID #10 tab Continue Montelukast [Singulair] 10 mg PO HS Levalbuterol Nebulized [Xopenex Nebulized] 0.63 mg INHALATION RT-QID PRN PRN Reason: Shortness Of Breath Levalbuterol Hfa Inhaler [Xopenex Hfa Inhaler] 2 puff INHALATION RT-Q6H PRN PRN Reason: Shortness Of Breath ARIPiprazole [Abilify] 5 mg PO QAM Medroxyprogesterone Acetate [Depo-Provera] 150 mg IM Q90D Desvenlafaxine Succinate [Pristiq] 100 mg PO QAM traZODone HCL [Desyrel] 100 mg PO HS PRN PRN Reason: Insomnia Butalb/APAP/Caff 50-325-40Mg [Fioricet 50-325-40] 1 tab PO Q6H PRN PRN Reason: Migraine Headache Omalizumab [Xolair] 300 mg SQ Q30D Flunisolide [Aerospan] 2 puff INHALATION RT-BID Bisacodyl 5 mg PO DAILY PRN PRN Reason: Constipation Levothyroxine Sodium [Synthroid] 137 mcg PO DAILY Famotidine [Pepcid] 20 mg PO BID HYDROcodone/APAP 7.5-325MG [[place] 7.5-325] 1 tab PO Q6HR PRN #120 tab PRN Reason: Pain Pregabalin [Lyrica] 50 mg PO TID Ondansetron Odt [Zofran ODT] 4 mg PO Q8HR PRN #12 tab PRN Reason: Nausea Tamsulosin [Flomax] 0.4 mg PO DAILY #10 cap Ibuprofen [Motrin] 600 mg PO Q6HR PRN #30 day PRN Reason: Pain Discontinued predniSONE See Taper PO DAILY Discharge Medication List Levalbuterol Nebulized [Xopenex Nebulized] 0.63 mg INHALATION RT-QID PRN [History] Montelukast [Singulair] 10 mg PO HS 09/30/13 [History] Levalbuterol Hfa Inhaler [Xopenex Hfa Inhaler] 2 puff INHALATION RT-Q6H PRN [History] ARIPiprazole [Abilify] 5 mg PO QAM 05/04/14 [History] Desvenlafaxine Succinate [Pristiq] 100 mg PO QAM 11/07/15 [History] Medroxyprogesterone Acetate [Depo-Provera] 150 mg IM Q90D 11/07/15 [History] traZODone HCL [Desyrel] 100 mg PO HS PRN 11/21/15 [History] Bisacodyl 5 mg PO DAILY PRN 06/28/16 [History] Butalb/APAP/Caff 50-325-40Mg [Fioricet 50-325-40] 1 tab PO Q6H PRN 06/28/16 [ History] Flunisolide [Aerospan] 2 puff INHALATION RT-BID 06/28/16 [History] Omalizumab [Xolair] 300 mg SQ Q30D 06/28/16 [History] Levothyroxine Sodium [Synthroid] 137 mcg PO DAILY 07/18/16 [History] Famotidine [Pepcid] 20 mg PO BID 10/02/16 [History] HYDROcodone/APAP 7.5-325MG [[place] 7.5-325] 1 tab PO Q6HR PRN #120 tab 10/23/16 [ Rx] Pregabalin [Lyrica] 50 mg PO TID 11/22/16 [History] Ondansetron Odt [Zofran ODT] 4 mg PO Q8HR PRN #12 tab 01/31/17 [Rx] Tamsulosin [Flomax] 0.4 mg PO DAILY #10 cap 01/31/17 [Rx] Ibuprofen [Motrin] 600 mg PO Q6HR PRN #30 day 02/05/17 [Rx] Cefuroxime Axetil [Ceftin] 500 mg PO BID #10 tab 02/22/17 [Rx] Metoprolol Tartrate [Lopressor] 12.5 mg PO BID #60 tab 02/22/17 [Rx] predniSONE 10 mg PO DIRECTED #30 tab 02/22/17 [Rx] Follow up Appointment(s)/Referral(s): Slade Gonzalez MD [Primary Care Provider] - 3 Days (Please call to make appointment) Toby Jalloh MD [STAFF PHYSICIAN] - 2 Weeks (Please call to make appointment ) Ambulatory/Diagnostic Orders: Complete Blood Count w/diff [LAB.AMB] Time Frame: 3 Days, Location: Determined By Patient Activity/Diet/Wound Care/Special Instructions: Pending finale dc rec. & clearance from Pulmonary & cardiology Discharge Disposition: HOME SELF-CARE
== END 2017-02-22 15:29 | disposition home or self-care (01) | DRG 202 ==
LOC: EC 10:09 → 6SEL 14:55
PROVIDERS: ADMIT Hospitalist; ATTEND Hospitalist
DX: J20.9 Acute bronchitis, unspecified (principal); J45.901 Unspecified asthma with (acute) exacerbation; E03.9 Hypothyroidism, unspecified; D64.9 Anemia, unspecified; F41.8 Other specified anxiety disorders; G89.29 Other chronic pain; M54.9 Dorsalgia, unspecified; Z79.52 Long term (current) use of systemic steroids; Z79.899 Other long term (current) drug therapy; Z87.11 Personal history of peptic ulcer disease; Z90.49 Acquired absence of other specified parts of digestive tract; Z98.84 Bariatric surgery status; Z82.5 Family history of asthma and other chronic lower respiratory diseases; Z86.69 Personal history of other diseases of the nervous system and sense organs
CPT/HCPCS: 36415; 71010; 71020; 71275; 80048; 80053; 81003; 81025; 83036; 85025; 85379; 93005; 94640; 94644; 94760; 96361; 96374; 96375; 99284

== ENCOUNTER → 2017-02-26 | Outpatient (CLI) | payer OTHER ==
[2017-02-26 13:51] VITALS: BP 125/81; PULSE 80; RESP 16
--- NOTE | 2017-02-26 21:35 | P.PN ---
Subjective This is follow-up visit for this patient with a history of severe and chronic low back pain secondary to lumbar degenerative disc diseases , lumbar spondylosis with facet arthropathy, Status post radiofrequency ablation of the medial branch lumbar area and on several months ago, and patient currently on pain medication 1-Lyrica 50 mg every 8 hours 2-[place] 7.5/325 every 6 hours Patient denies any side effects of the medication, denies excessive drowsiness or sleepiness, denies suicidal ideation, and reports that the current pain medication is NOT helping To control the pain and improve activity of daily living Patient denies any motor or sensory deficit , patient denies any fever or night sweats, denies any change in the bowel movements or urination, Recently patient was given prescription by her neurologist for Lyrica 150 mg twice a day, patient reported that she used the new dose of Lyrica she started feeling severe drowsiness and sleepiness for this reason he stopped using the Lyrica to 150 mg ,and she continued to use the Lyrica 50 mg 3 times a day Physical Examinations : 1-Constitutiona : Cooperative , not in acute distress . 2-HEENT : nech ; supple , no Lymphadenopathy , no Thyromegaly , normal thyroid size . eyes : no ptosis , no icterus, no photophobia . ENT : normal of hearing , normal oropharynx , no Thrush . 3- Respiratory : Chest clear to auscultations Bilaterally , no wheezing , no Rhonchi . 4- Cardiovascular : regular rate and rhythem , S1 , S2 , no S3 , no S4. 5- Gastrointestinal : abdomen soft no tenderness , bowel sounds positive all four quadrents , no organomegally . 6- Genitourinary : Defferred . 7- neurologic : Cranial nerve II to XII intact , no focal neurological deffecit . 8-psychatric : alert , oriented X 3 , appropriate affect , intact judgment and insight . 9-Lymphatic : no Lymphadenopathy . 10- musculoskeltal : exams of the Lumber spine = motor strength lower extremities ,thigh and legs .5/5 deep tendon reflexes : normal Knee Jerk , normal ankle Jerk . lumber facet Loading Test positive strait leg raising test positive at 30 degree , RT ,LT , Fabere test positive RT and positive LT . Range of motion: Range of motion in flexion of the lumbar spine 30 degrees Range of motion range of motion of extension of the lumbar spine 10 tenderness over the Sacroiliac joint on the Right , and Left side Assessment and plan = Chronic low back pain secondary to lumbar degenerative disc disease , lumbar spondylosis with facet arthropathy without myelopathy , chronic and current use of high-risk medication (Opioids). The patient was counseled about risk of opioid use, psychological risk associated with opioids and was orally counseled to not overuse , divert,or sell dictations to take medications as prescribed only , and to restore medication in safe location , and the patient counseled against driving while using narcotic medications, and also not to use alcohol or any illicit recreational drugs, the patient's verbalized understanding that the lack of compliance will result in failure to renew narcotic prescription and possible discharge from the clinic - diagnoses, prognosis, and treatment options including but not limited to physical therapy, surgical interventions, interventional therapies , and medication management including narcotics and adjuvant medication were discussed with the patient and all the questions answered , patient given prescription refill for Percocet 7.5/325 every 6 hours dispense 120 with one refill and patient will benefit from changing the dose of Lyrica to 75 mg 3 times a day dispense 90 with 1 refill, she'll was given prescription for Lyrica 150 mg by her neurologist but patient had side effects from the Lyrica 150 mg and I instructed the patient to stop using this dose , and she was given a new prescription for Lyrica 75 mg every 8 hours. Objective - Vital Signs Vital signs: Vital Signs Temp Pulse 80 02/26/17 13:39 Resp 16 02/26/17 13:39 BP 125/81 02/26/17 13:39 Pulse Ox 99 02/26/17 13:39 Intake & Output 02/26/17 02/26/17 02/27/17 06:59 18:59 06:59 Weight 68.039 kg
== END | disposition home or self-care (01) ==
LOC: PNWHC3 13:23
PROVIDERS: ATTEND Specialist
DX: M51.36 Other intervertebral disc degeneration, lumbar region (principal); M47.816 Spondylosis without myelopathy or radiculopathy, lumbar region; M46.86 Other specified inflammatory spondylopathies, lumbar region
CPT/HCPCS: 99211

== ENCOUNTER 2017-03-05 16:45 | Emergency (ER) | payer OTHER ==
[2017-03-05] MEDS ORDERED: methylPREDNISolone SOD SUCCI 125 MG/2 ML VIAL IV STA (16:58)
[2017-03-05] MEDS ORDERED: SODIUM CHLORIDE 0.9% 1,000 ML IV STA (16:58)
--- NOTE | 2017-03-05 17:02 | ED ---
General Adult HPI - General Chief complaint: Shortness of Breath Stated complaint: Chest pain/asthma Time Seen by Provider: 03/05/17 16:55 Source: patient, RN notes reviewed Mode of arrival: wheelchair Limitations: no limitations - History of Present Illness Initial comments: 36-year-old female presents to the emergency department with a chief complaint of shortness of breath. Patient suffers from chronic asthma. Patient states she's been on steroids for the past few weeks and she just cannot seem to break the cycle. Patient states her doctor once for home Pulmicort that they're unable to because of her insurance. Patient states that she just is not feeling better she did a breathing treatment at 4:30 she still feels short of breath so she thought that she should be seen.Patient denies any recent fever, chills, back pain, abdominal pain, nausea vomiting, numbness or tingling, dysuria or hematuria, constipation or diarrhea, headaches or visual changes, or any other current symptoms. - Related Data Home Medications Medication Instructions Recorded Confirmed Levalbuterol Nebulized [Xopenex 0.63 mg INHALATION RT-QID PRN 09/30/13 03/05/17 Nebulized] Montelukast [Singulair] 10 mg PO HS 09/30/13 03/05/17 Levalbuterol Hfa Inhaler [Xopenex 2 puff INHALATION RT-Q6H PRN 01/07/14 03/05/17 Hfa Inhaler] ARIPiprazole [Abilify] 5 mg PO QAM 05/04/14 03/05/17 Desvenlafaxine Succinate [Pristiq] 100 mg PO QAM 11/07/15 03/05/17 Medroxyprogesterone Acetate 150 mg IM Q90D 11/07/15 03/05/17 [Depo-Provera] traZODone HCL [Desyrel] 100 mg PO HS PRN 11/21/15 03/05/17 Bisacodyl 5 mg PO DAILY PRN 06/28/16 03/05/17 Flunisolide [Aerospan] 2 puff INHALATION RT-BID 06/28/16 03/05/17 Omalizumab [Xolair] 300 mg SQ Q30D 06/28/16 03/05/17 Levothyroxine Sodium [Synthroid] 137 mcg PO DAILY 07/18/16 03/05/17 Famotidine [Pepcid] 20 mg PO BID 10/02/16 03/05/17 Pregabalin [Lyrica] 75 mg PO TID 11/22/16 03/05/17 predniSONE See Taper PO DIRECTED 03/05/17 03/05/17 Previous Rx's Medication Instructions Recorded HYDROcodone/APAP 7.5-325MG [[place] 1 tab PO Q6HR PRN #120 tab 10/23/16 7.5-325] Ondansetron Odt [Zofran ODT] 4 mg PO Q8HR PRN #12 tab 01/31/17 Tamsulosin [Flomax] 0.4 mg PO DAILY #10 cap 01/31/17 Ibuprofen [Motrin] 600 mg PO Q6HR PRN #30 day 02/05/17 Metoprolol Tartrate [Lopressor] 12.5 mg PO BID #60 tab 02/22/17 Allergies Allergy/AdvReac Type Severity Reaction Status Date / Time albuterol AdvReac Rapid Verified 03/05/17 16:56 Heart Rate Review of Systems ROS Statement: Those systems with pertinent positive or pertinent negative responses have been documented in the HPI. ROS Other: All systems not noted in ROS Statement are negative. Past Medical History Past Medical History: Asthma, Thyroid Disorder Additional Past Medical History / Comment(s): TACHYCARDIA, peptic ulcers, anemia."HAS BEEN ON VENTILATOR IN PAST D/T SEVERE ASTHMA ATTACK, BULEMIA-STATES GETTING BETTER, CONSTIPATION. CHRONIC BACK PAIN ,SEIZURES HAS SINCE BEEN TAKEN OFF MEDS, elevated blood sugar with steroid use and hypoglycemia when off steroids , "superficial blood clots" bilateral arms. History of Any Multi-Drug Resistant Organisms: MRSA Date of last positivie culture/infection: 08/25/14 MDRO Source:: Groin Past Surgical History: Bariatric Surgery, Cholecystectomy, Orthopedic Surgery, Tonsillectomy Additional Past Surgical History / Comment(s): tilt table test, lap band 2007; NASAL FX REPAIR , ORIF LT ELBOW X2, PAIN PROCEDURES Past Anesthesia/Blood Transfusion Reactions: Postoperative Nausea & Vomiting ( PONV) Past Psychological History: Anxiety, Depression Smoking Status: Never smoker Past Alcohol Use History: None Reported Past Drug Use History: None Reported - Past Family History Mother Family Medical History: Pneumonia Additional Family Medical History / Comment(s): Mother of pneumonia. Patient's son of brain cancer, last mother and father both liver cancer Son(s) Family Medical History: Cancer Additional Family Medical History / Comment(s): Son of brain cancer. Father Family Medical History: Cancer, Liver Disease Additional Family Medical History / Comment(s): Father has liver cancer with surgery. He has hepatitis. General Exam - General Exam Comments Initial Comments: General: The patient is awake and alert, in no distress, and does not appear acutely ill. Eye: Pupils are equal, round and reactive to light, extra-ocular movements are intact; there is normal conjunctiva bilaterally. No signs of icterus. Ears, nose, mouth and throat: There are moist mucous membranes and no oral lesions. Neck: The neck is supple, there is no tenderness. Cardiovascular: There is a regular rate and rhythm. No murmur, rub or gallop is appreciated. Respiratory: Lungs are clear to auscultation, respirations are non-labored, breath sounds are equal. diffuse expiratory wheeze, no stridor, rales, or rhonchi. Gastrointestinal: Soft, non-distended, non-tender abdomen without masses or organomegaly noted. There is no rebound or guarding present. No CVA tenderness. Bowel sounds are unremarkable. Back: There is no tenderness to palpation in the midline. There is no obvious deformity. No rashes noted. Musculoskeletal: Normal ROM, no tenderness, There is no pedal edema. There is no calf tenderness or swelling. Sensation intact. Pulses equal bilaterally 2+. Neurological: CN II-XII intact, There are no obvious motor or sensory deficits. Coordination appears grossly intact. Speech is normal. Skin: Skin is warm and dry and no rashes or lesions are noted. Psychiatric: Cooperative, appropriate mood & affect, normal judgment. Limitations: no limitations Course Vital Signs 03/05/17 03/05/17 03/05/17 16:48 18:15 18:26 Temperature 97.8 F Pulse Rate 127 H 112 H 115 H Respiratory 22 Rate Blood Pressure 142/90 O2 Sat by Pulse 100 98 Oximetry 03/05/17 18:27 Temperature Pulse Rate 112 H Respiratory Rate Blood Pressure O2 Sat by Pulse Oximetry Medical Decision Making - Medical Decision Making 36-year-old female presents for shortness of breath with history of asthma. this does appear to be a component of dehydration which we did hydrate the patient. We discussed increasing fluids in the diet at home. At this time her heart rate has decreased. We discussed return parameters and follow-up. We discussed appropriate care. We discussed all the patient's questions. They state Freddy stated he understood and she is discharged - Lab Data Result diagrams: 03/05/17 17:23 03/05/17 17:23 Lab Results 03/05/17 03/05/17 Range/Units 17:23 17:23 WBC 8.9 (3.8-10.6) k/uL RBC 3.98 (3.80-5.40) m/uL Hgb 13.4 (11.4-16.0) gm/dL Hct 38.4 (34.0-46.0) % MCV 96.5 (80.0-100.0) fL MCH 33.6 (25.0-35.0) pg MCHC 34.8 (31.0-37.0) g/dL RDW 12.7 (11.5-15.5) % Plt Count 224 (150-450) k/uL Neutrophils % 69 % Lymphocytes % 25 % Monocytes % 4 % Eosinophils % 1 % Basophils % 0 % Neutrophils # 6.1 (1.3-7.7) k/uL Lymphocytes # 2.3 (1.0-4.8) k/uL Monocytes # 0.3 (0-1.0) k/uL Eosinophils # 0.1 (0-0.7) k/uL Basophils # 0.0 (0-0.2) k/uL Sodium 142 (137-145) mmol/L Potassium 3.7 (3.5-5.1) mmol/L Chloride 109 H (98-107) mmol/L Carbon Dioxide 22 (22-30) mmol/L Anion Gap 11 mmol/L BUN 15 (7-17) mg/dL Creatinine 1.21 H (0.52-1.04) mg/dL Est GFR (MDRD) Af Amer >60 (>60 ml/min/1.73 sqM) Est GFR (MDRD) Non-Af 50 (>60 ml/min/1.73 sqM) Glucose 91 (74-99) mg/dL Calcium 9.7 (8.4-10.2) mg/dL Total Bilirubin 0.4 (0.2-1.3) mg/dL AST 17 (14-36) U/L ALT 22 (9-52) U/L Alkaline Phosphatase 55 (38-126) U/L Total Protein 6.7 (6.3-8.2) g/dL Albumin 4.3 (3.5-5.0) g/dL Disposition Clinical Impression: Asthma exacerbation, Dehydration Disposition: HOME SELF-CARE Condition: Stable Instructions: Asthma (ED) Additional Instructions: Please use medication as discussed. Please follow up with family doctor if symptoms have not improved over the next two days. Please return to the emergency room if your symptoms increase or worsen or for any other concerns. please orally rehydrate. Referrals: Slade Gonzalez MD [Primary Care Provider] - 1-2 days Time of Disposition: 18:41
[2017-03-05 17:30] LABS: Basophils % (A) 0 %; CH 34.2; CHCM 35.6; Eosinophils # (A) 0.1 k/uL (0-0.7); Eosinophils % (A) 1 %; HCT 38.4 % (34.0-46.0); HDW 2.99; HGB 13.4 gm/dL (11.4-16.0); Luc # (Auto) 0.14; Luc % (Auto) 2; Lymphocytes # (A) 2.3 k/uL (1.0-4.8); Lymphocytes % (A) 25 %; MCH 33.6 pg (25.0-35.0); MCHC 34.8 g/dL (31.0-37.0); MCV 96.5 fL (80.0-100.0); Mean Platelet Volume 6.8; Monocytes # (A) 0.3 k/uL (0-1.0); Monocytes % (A) 4 %; Neutrophils # (A) 6.1 k/uL (1.3-7.7); Neutrophils % (A) 69 %; RBC 3.98 m/uL (3.80-5.40); RDW 12.7 % (11.5-15.5); WBC 8.9 k/uL (3.8-10.6); WBC (Perox) 9.05
[2017-03-05 17:39] LABS: ALT 22 U/L (9-52); AST 17 U/L (14-36); Alkaline Phosphatase 55 U/L (38-126); Anion Gap 11 mmol/L; Blood Urea Nitrogen 15 mg/dL (7-17); Calcium 9.7 mg/dL (8.4-10.2); Carbon Dioxide 22 mmol/L (22-30); Chloride 109 mmol/L (98-107); Glucose 91 mg/dL (74-99); Non-African American GFR(MDRD) 50 (>60 ml/min/1.73 sqM); Potassium 3.7 mmol/L (3.5-5.1); Sodium 142 mmol/L (137-145); Total Bilirubin 0.4 mg/dL (0.2-1.3); Total Protein 6.7 g/dL (6.3-8.2)
--- NOTE | 2017-03-05 17:50 | XR ---
EXAMINATION TYPE: XR chest 2V DATE OF EXAM: 03/05/2017 COMPARISON: 02/21/2017 HISTORY: Cough TECHNIQUE: Frontal and lateral views of the chest are obtained. FINDINGS: Heart and mediastinum are normal. Lungs are clear. Diaphragm is normal. Bony thorax is int act. IMPRESSION: Normal chest
[2017-03-05] MEDS ORDERED: LEVALBUTEROL NEB 1.25 MG/3 ML AMP INHALATION STA (18:03)
[2017-03-05] MEDS: IPRATROPIUM-ALBUTEROL 3 ML NEB INHALATION STA ×2 (18:14→18:20)
[2017-03-05] MEDS ORDERED: SODIUM CHLORIDE 0.9% 1,000 ML IV ONE (18:38)
[2017-03-05 18:50] VITALS: BP 125/72; PULSE 102; RESP 18; TEMP 98.7
== END 2017-03-05 18:50 | disposition home or self-care (01) ==
LOC: EC 16:45
DX: J45.901 Unspecified asthma with (acute) exacerbation (principal); E86.0 Dehydration; R00.0 Tachycardia, unspecified; E07.9 Disorder of thyroid, unspecified; G89.29 Other chronic pain; F32.9 Major depressive disorder, single episode, unspecified; Z79.3 Long term (current) use of hormonal contraceptives; Z79.51 Long term (current) use of inhaled steroids; Z79.52 Long term (current) use of systemic steroids; Z79.899 Other long term (current) drug therapy; Z88.8 Allergy status to other drugs, medicaments and biological substances; Z87.11 Personal history of peptic ulcer disease; Z83.6 Family history of other diseases of the respiratory system
CPT/HCPCS: 99285 ×2; 96374 ×2; 96361 ×2; 36415; 94640; 93005; 80053; 85025; 71020; J2930

== ENCOUNTER 2017-03-06 12:00 | Inpatient (IN) | payer OTHER ==
[2017-03-06] MEDS ORDERED: SODIUM CHLORIDE 0.9% 1,000 ML IV STA (13:01)
[2017-03-06] MEDS ORDERED: methylPREDNISolone SOD SUCCI 125 MG/2 ML VIAL IV STA (13:01)
[2017-03-06] MEDS ORDERED: LEVALBUTEROL NEB (CONC) 1.25 MG/0.5 ML AMP INHALATION STA (13:01)
[2017-03-06] MEDS ORDERED: IPRATROPIUM 0.5 MG/2.5 ML NEBU INHALATION STA (13:02)
[2017-03-06 13:31] LABS: Basophils % (A) 0 %; CH 34.1; CHCM 35.5; Eosinophils % (A) 0 %; HCT 37.7 % (34.0-46.0); HGB 13.1 gm/dL (11.4-16.0); Luc # (Auto) 0.15; Luc % (Auto) 1; Lymphocytes # (A) 1.8 k/uL (1.0-4.8); Lymphocytes % (A) 17 %; MCH 33.4 pg (25.0-35.0); MCHC 34.6 g/dL (31.0-37.0); MCV 96.5 fL (80.0-100.0); Mean Platelet Volume 7.1; Monocytes # (A) 0.4 k/uL (0-1.0); Monocytes % (A) 4 %; Neutrophils # (A) 8.4 k/uL (1.3-7.7); Neutrophils % (A) 77 %; RBC 3.91 m/uL (3.80-5.40); RDW 12.7 % (11.5-15.5); WBC 10.9 k/uL (3.8-10.6); WBC (Perox) 11.21
[2017-03-06 13:41] LABS: ALT 26 U/L (9-52); AST 16 U/L (14-36); Alkaline Phosphatase 57 U/L (38-126); Anion Gap 10 mmol/L; Blood Urea Nitrogen 14 mg/dL (7-17); Calcium 9.5 mg/dL (8.4-10.2); Carbon Dioxide 21 mmol/L (22-30); Chloride 111 mmol/L (98-107); Glucose 82 mg/dL (74-99); Magnesium 1.8 mg/dL (1.6-2.3); Non-African American GFR(MDRD) >60 (>60 ml/min/1.73 sqM); Potassium 3.8 mmol/L (3.5-5.1); Sodium 142 mmol/L (137-145); Total Bilirubin 0.5 mg/dL (0.2-1.3); Total Protein 6.6 g/dL (6.3-8.2)
--- NOTE | 2017-03-06 13:44 | XR ---
EXAMINATION TYPE: XR chest 2V DATE OF EXAM: 03/06/2017 COMPARISON: Prior chest x-ray 03/05/2017 HISTORY: Difficulty breathing, cough and shortness of breath TECHNIQUE: Frontal and lateral views of the chest are obtained. FINDINGS: Patient is rotated and there are overlying cardiac leads. No interval change evident. Liza ent is post lap band and surgical clips are present in the upper abdomen. IMPRESSION: No acute cardiopulmonary process.
[2017-03-06] MEDS ORDERED: NALOXONE 0.4 MG/ML 1 ML VIAL IV PRN (13:56)
[2017-03-06] MEDS ORDERED: ACETAMINOPHEN TAB 325 MG TAB PO PRN (13:56)
--- NOTE | 2017-03-06 13:56 | ED ---
URI HPI - General Chief Complaint: Upper Respiratory Infection Stated Complaint: congestion, chest pain Time Seen by Provider: 03/06/17 12:53 Source: patient, RN notes reviewed Mode of arrival: ambulatory Limitations: no limitations - History of Present Illness Initial Comments: 36-year-old female presented emergency department for asthma exacerbation. Patient was seen here last night and went home. She states after 2 hours the in home she had increased shortness of breath and wheezing. She went to her primary care physician who sent her here for admission. Patient states that she is on Xolair, Qvar, Xopenex, steroids. She states that she's having increased difficulty. She has been intubated in the past. Patient states her blow pit helper is Dr. Jalloh. - Related Data Home Medications Medication Instructions Recorded Confirmed Levalbuterol Nebulized [Xopenex 0.63 mg INHALATION RT-QID PRN 09/30/13 03/05/17 Nebulized] Montelukast [Singulair] 10 mg PO HS 09/30/13 03/05/17 Levalbuterol Hfa Inhaler [Xopenex 2 puff INHALATION RT-Q6H PRN 01/07/14 03/05/17 Hfa Inhaler] ARIPiprazole [Abilify] 5 mg PO QAM 05/04/14 03/05/17 Desvenlafaxine Succinate [Pristiq] 100 mg PO QAM 11/07/15 03/05/17 Medroxyprogesterone Acetate 150 mg IM Q90D 11/07/15 03/05/17 [Depo-Provera] traZODone HCL [Desyrel] 100 mg PO HS PRN 11/21/15 03/05/17 Bisacodyl 5 mg PO DAILY PRN 06/28/16 03/05/17 Flunisolide [Aerospan] 2 puff INHALATION RT-BID 06/28/16 03/05/17 Omalizumab [Xolair] 300 mg SQ Q30D 06/28/16 03/05/17 Levothyroxine Sodium [Synthroid] 137 mcg PO DAILY 07/18/16 03/05/17 Famotidine [Pepcid] 20 mg PO BID 10/02/16 03/05/17 Pregabalin [Lyrica] 75 mg PO TID 11/22/16 03/05/17 predniSONE See Taper PO DIRECTED 03/05/17 03/05/17 Previous Rx's Medication Instructions Recorded HYDROcodone/APAP 7.5-325MG [[place] 1 tab PO Q6HR PRN #120 tab 10/23/16 7.5-325] Ondansetron Odt [Zofran ODT] 4 mg PO Q8HR PRN #12 tab 01/31/17 Tamsulosin [Flomax] 0.4 mg PO DAILY #10 cap 01/31/17 Ibuprofen [Motrin] 600 mg PO Q6HR PRN #30 day 02/05/17 Metoprolol Tartrate [Lopressor] 12.5 mg PO BID #60 tab 02/22/17 Allergies Allergy/AdvReac Type Severity Reaction Status Date / Time albuterol AdvReac Rapid Verified 03/06/17 13:52 Heart Rate Review of Systems ROS Statement: Those systems with pertinent positive or pertinent negative responses have been documented in the HPI. ROS Other: All systems not noted in ROS Statement are negative. Past Medical History Past Medical History: Asthma, Thyroid Disorder Additional Past Medical History / Comment(s): TACHYCARDIA, peptic ulcers, anemia."HAS BEEN ON VENTILATOR IN PAST D/T SEVERE ASTHMA ATTACK, BULEMIA-STATES GETTING BETTER, CONSTIPATION. CHRONIC BACK PAIN ,SEIZURES HAS SINCE BEEN TAKEN OFF MEDS, elevated blood sugar with steroid use and hypoglycemia when off steroids , "superficial blood clots" bilateral arms. History of Any Multi-Drug Resistant Organisms: MRSA Date of last positivie culture/infection: 08/25/14 MDRO Source:: Groin Past Surgical History: Bariatric Surgery, Cholecystectomy, Orthopedic Surgery, Tonsillectomy Additional Past Surgical History / Comment(s): tilt table test, lap band 2007; NASAL FX REPAIR , ORIF LT ELBOW X2, PAIN PROCEDURES Past Anesthesia/Blood Transfusion Reactions: Postoperative Nausea & Vomiting ( PONV) Past Psychological History: Anxiety, Depression Smoking Status: Never smoker Past Alcohol Use History: None Reported Past Drug Use History: None Reported - Past Family History Mother Family Medical History: Pneumonia Additional Family Medical History / Comment(s): Mother of pneumonia. Patient's son of brain cancer, last mother and father both liver cancer Son(s) Family Medical History: Cancer Additional Family Medical History / Comment(s): Son of brain cancer. Father Family Medical History: Cancer, Liver Disease Additional Family Medical History / Comment(s): Father has liver cancer with surgery. He has hepatitis. General Exam Limitations: no limitations General appearance: alert, in no apparent distress Head exam: Present: atraumatic, normocephalic, normal inspection Eye exam: Present: normal appearance, PERRL, EOMI. Absent: scleral icterus, conjunctival injection, periorbital swelling ENT exam: Present: normal exam, normal oropharynx, mucous membranes moist, TM's normal bilaterally, normal external ear exam Neck exam: Present: normal inspection, full ROM. Absent: tenderness, meningismus, lymphadenopathy Respiratory exam: Present: wheezes. Absent: normal lung sounds bilaterally, respiratory distress, rales, rhonchi, stridor Cardiovascular Exam: Present: normal rhythm, tachycardia, normal heart sounds. Absent: systolic murmur, diastolic murmur, rubs, gallop, clicks Skin exam: Present: warm, dry, intact, normal color. Absent: rash Course Vital Signs 03/06/17 03/06/17 12:44 13:16 Temperature 99.7 F H Pulse Rate 111 H Respiratory 24 22 Rate Blood Pressure 136/79 O2 Sat by Pulse 98 Oximetry Medical Decision Making - Medical Decision Making 36 year old female presented for shortness breath. Patient has failed outpatient treatment for asthma exacerbation patient sent here by PCP. - Lab Data Result diagrams: 03/06/17 13:10 03/06/17 13:10 Lab Results 03/06/17 03/06/17 Range/Units 13:10 13:10 WBC 10.9 H (3.8-10.6) k/uL RBC 3.91 (3.80-5.40) m/uL Hgb 13.1 (11.4-16.0) gm/dL Hct 37.7 (34.0-46.0) % MCV 96.5 (80.0-100.0) fL MCH 33.4 (25.0-35.0) pg MCHC 34.6 (31.0-37.0) g/dL RDW 12.7 (11.5-15.5) % Plt Count 239 (150-450) k/uL Neutrophils % 77 % Lymphocytes % 17 % Monocytes % 4 % Eosinophils % 0 % Basophils % 0 % Neutrophils # 8.4 H (1.3-7.7) k/uL Lymphocytes # 1.8 (1.0-4.8) k/uL Monocytes # 0.4 (0-1.0) k/uL Eosinophils # 0.0 (0-0.7) k/uL Basophils # 0.0 (0-0.2) k/uL Sodium 142 (137-145) mmol/L Potassium 3.8 (3.5-5.1) mmol/L Chloride 111 H (98-107) mmol/L Carbon Dioxide 21 L (22-30) mmol/L Anion Gap 10 mmol/L BUN 14 (7-17) mg/dL Creatinine 1.03 (0.52-1.04) mg/dL Est GFR (MDRD) Af Amer >60 (>60 ml/min/1.73 sqM) Est GFR (MDRD) Non-Af >60 (>60 ml/min/1.73 sqM) Glucose 82 (74-99) mg/dL Calcium 9.5 (8.4-10.2) mg/dL Magnesium 1.8 (1.6-2.3) mg/dL Total Bilirubin 0.5 (0.2-1.3) mg/dL AST 16 (14-36) U/L ALT 26 (9-52) U/L Alkaline Phosphatase 57 (38-126) U/L Total Protein 6.6 (6.3-8.2) g/dL Albumin 4.2 (3.5-5.0) g/dL Disposition Clinical Impression: Failure of outpatient treatment, Asthma exacerbation Disposition: ADMITTED IP TO THIS HOSP Condition: Fair Referrals: Slade Gonzalez MD [Primary Care Provider] - 1-2 days
[2017-03-06] MEDS ORDERED: ONDANSETRON ODT 4 MG TAB PO PRN (14:07)
[2017-03-06] MEDS ORDERED: BISACODYL 5 MG TABLET.DR PO PRN (14:07)
[2017-03-06] MEDS ORDERED: ONDANSETRON 4 MG/2 ML VIAL IVP STA (14:08)
[2017-03-06] MEDS ORDERED: HYDROcodone/APAP 7.5-325MG 1 EACH TAB PO ONE (14:08)
[2017-03-06] MEDS: SODIUM CHLORIDE 0.9% 1,000 ML IV SCH (14:26)
[2017-03-06] MEDS: IPRATROPIUM 0.5 MG/2.5 ML NEBU INHALATION SCH ×2 (16:32→19:58)
[2017-03-06] MEDS: LEVALBUTEROL NEB (CONC) 1.25 MG/0.5 ML AMP INHALATION SCH ×2 (16:32→19:58)
[2017-03-06] MEDS ORDERED: IBUPROFEN 600 MG TAB PO PRN (17:05)
[2017-03-06] MEDS ORDERED: OMALIZUMAB 150 MG VIAL SQ SCH (17:15)
[2017-03-06] MEDS: PREGABALIN 75 MG CAP PO SCH ×2 (17:21→21:59)
[2017-03-06] MEDS: methylPREDNISolone SOD SUCCI 125 MG/2 ML VIAL IV SCH (18:18)
[2017-03-06] MEDS: BUDESONIDE 0.5 MG/2 ML NEBU INHALATION SCH (19:57)
[2017-03-06] MEDS: MONTELUKAST 10 MG TAB PO SCH (20:04)
[2017-03-06] MEDS: METOPROLOL TARTRATE 12.5 MG TAB PO SCH (20:04)
[2017-03-06] MEDS: FAMOTIDINE 20 MG TAB PO SCH (20:04)
[2017-03-06] MEDS: HYDROcodone/APAP 7.5-325MG 1 EACH TAB PO PRN (20:05)
--- NOTE | 2017-03-06 20:44 | HP ---
HISTORY AND PHYSICAL DATE OF ADMISSION: 03/06/2017 PRESENTING COMPLAINT: Short of breath, wheezing. HISTORY OF PRESENT COMPLAINT: This is a very pleasant 36-year-old patient, well-known to be me from prior admissions. The patient's chronic stable medical conditions include hypothyroid, depression, GERD, bulimia. The patient follows with Dr. Yolanda Jalloh. Patient presents with worsening wheezing, short of breath, cough, very minimal sputum. No fever. Appetite has been fair. Tired run down. Getting bouts of coughing when we speak. Has been admitted for asthma exacerbation. REVIEW OF SYSTEMS: Constitutional: Tired. HEENT: None. RESPIRATORY: As above. Cardiovascular: None. Gastrointestinal none. Genitourinary none. Musculoskeletal chronic low back pain. Dermatological, hematologic, lymphatic none. Psychiatry: Some anxiety. Neurological: None. PAST MEDICAL HISTORY: Past history of diet controlled diabetes and episodes of hypoglycemia, peptic ulcer, asthma, bulimia, lap pad, herniated disc, cervical and back, chronic pain to the spine, two seizures, superficial blood clot in both the arms. PAST SURGICAL HISTORY: Cholecystectomy, orthopedic surgery, tonsillectomy, ORIF left elbow, multiple pain procedures, lap alcon, tonsillectomy. FAMILY HISTORY: Family history of cancer, son also had brain cancer. SOCIAL HISTORY: The patient has got 2 daughters 4 and 12 years of age. No smoking and no alcohol. HOME MEDICATIONS: 1. Trazodone 100 mg p.o. q.h.s. p.r.n. 2. Prednisone taper. 3. Flomax 0.4 mg a day. 4. Lyrica 75 mg p.o. t.i.d. 5. Zofran 4 mg q.8h p.r.n. 6. Singulair 10 mg q.h.s. 7. Lopressor 12.5 p.o. b.i.d. 8. Depo Provera 150 mg IM 90 days. 9. Synthroid 137 mcg p.o. daily. 10.Lopid 0.63 q.i.d. p.r.n. 11.Xopenex HFA 2 puffs q.6. 12.Motrin 600 mg q.6h p.r.n. 13.[place] 7.5, 1 tab q.6h p.r.n. 14. 2 puffs b.i.d. 15.Pristiq 100 mg p.o. daily. 16.Dulcolax 5 mg daily p.r.n. 17.Abilify 5 mg p.o. daily. 18. . 19.Albuterol. PHYSICAL EXAMINATION: Vital signs on presentation: Temperature 99.7 pulse 101, respiration 24, blood pressure 136/79, pulse ox 98% on room air. GENERAL: Average built, sitting up, tired appearing. Eyes pupils are equal. Conjunctivae normal. HEENT: Oral cavity normal. NECK: JVD not raised. Mass not palpable. RESPIRATORY: Effort increased. LUNGS: Diminished breath sounds. Prolonged expiration. Wheezing. Cardiovascular first and second sounds normal. No edema. ABDOMEN: Soft, nontender. Liver and spleen not palpable. Lymphatics: No lymph node palpable in the neck and axillae. PSYCHIATRY: Alert and oriented x3. Mood and affect slightly anxious-appearing. NEUROLOGICAL: Pupils equal. Cranial nerves grossly intact. Power and sensation grossly intact. INVESTIGATIONS: White count 10.9, hemoglobin 13.1, potassium noted. Checks x-ray nil acute. ASSESSMENT: 1. Acute moderate persistent asthma with acute exacerbation probably from viral pneumonitis. 2. Diet-controlled diabetes. 3. Peptic ulcer disease. 4. Chronic bulimia. 5. Chronic low back pain from herniated disc. PLAN: Patient is started on nebulized bronchodilators, IV steroids. Home medications are resumed. The patient every time she coughs she gets some pain. Told the patient do some warm water gargle. Care was discussed with the patient. Dr. Dr. Yolanda Jalloh was consulted from Pulmonary. Care was discussed with the patient. Questions were answered. MMODL / IJN: [id number] /
[2017-03-06 20:51] LABS: Glucose,Whole Blood 216 mg/dL (75-99)
[2017-03-06] MEDS: INSULIN LISPRO (humaLOG) 300 UNIT/3 ML VIAL SQ SCH (22:27)
[2017-03-06] MEDS: traZODone HCL 50 MG TAB PO PRN (22:27)
[2017-03-07] MEDS: methylPREDNISolone SOD SUCCI 125 MG/2 ML VIAL IV SCH ×3 (00:07→20:44)
[2017-03-07] MEDS: IPRATROPIUM 0.5 MG/2.5 ML NEBU INHALATION SCH ×6 (00:34→19:02)
[2017-03-07] MEDS: SODIUM CHLORIDE 0.9% 1,000 ML IV SCH ×2 (04:39→15:33)
[2017-03-07] MEDS: HYDROcodone/APAP 7.5-325MG 1 EACH TAB PO PRN ×3 (04:39→16:29)
[2017-03-07] MEDS: LEVOTHYROXINE 137 MCG TAB PO SCH (05:55)
[2017-03-07] MEDS: BUDESONIDE 0.5 MG/2 ML NEBU INHALATION SCH ×2 (07:14→19:02)
[2017-03-07] MEDS: LEVALBUTEROL NEB (CONC) 1.25 MG/0.5 ML AMP INHALATION SCH ×4 (07:14→19:02)
[2017-03-07] MEDS: ARIPiprazole 5 MG TAB PO SCH (07:25)
[2017-03-07] MEDS: ENOXAPARIN 40 MG/0.4 ML SYRINGE SQ SCH (07:25)
[2017-03-07] MEDS: INSULIN LISPRO (humaLOG) 300 UNIT/3 ML VIAL SQ SCH ×4 (07:26→20:44)
[2017-03-07] MEDS: TAMSULOSIN 0.4 MG CAP.ER.24H PO SCH (07:26)
[2017-03-07] MEDS: FAMOTIDINE 20 MG TAB PO SCH ×2 (07:26→20:44)
[2017-03-07] MEDS: METOPROLOL TARTRATE 12.5 MG TAB PO SCH ×2 (07:26→20:44)
[2017-03-07] MEDS: PREGABALIN 75 MG CAP PO SCH ×3 (07:26→21:52)
[2017-03-07 07:35] LABS: Glucose,Whole Blood 209 mg/dL (75-99)
[2017-03-07] MEDS ORDERED: DESVENLAFAXINE SUCCINATE 100 MG PO SCH (09:00)
--- NOTE | 2017-03-07 09:42 | P.CNPUL ---
History of Present Illness Consult date: 03/07/17 Reason for consult: asthma Chief complaint: Shortness of breath History of present illness: This is a 36-year-old female who is well-known to [facility]. She presented to the emergency department complaining of shortness of breath. The patient has known severe persistent asthma. She states she is supposed to be on Pulmicort nebulized however her insurance will not cover it. She is complaining of cough which is nonproductive. She denies fevers and chills. She denies any sick contacts. She is on Xolair and Singulair. She is also on Xopenex and Qvar. The patient is complaining of wheezing at home. She states she was on steroids, prednisone 60 mg daily but felt like this wasn't enough. Review of Systems All systems: negative Past Medical History Past Medical History: Asthma, Seizure Disorder, Thyroid Disorder Additional Past Medical History / Comment(s): TACHYCARDIA, peptic ulcers, anemia."HAS BEEN ON VENTILATOR IN PAST D/T SEVERE ASTHMA ATTACK, BULEMIA-STATES GETTING BETTER, CONSTIPATION. CHRONIC BACK PAIN ,SEIZURES HAS SINCE BEEN TAKEN OFF MEDS, elevated blood sugar with steroid use and hypoglycemia when off steroids , "superficial blood clots" bilateral arms. History of Any Multi-Drug Resistant Organisms: C-DIFF, MRSA Date of last positivie culture/infection: 08/25/14 MDRO Source:: Groin Past Surgical History: Bariatric Surgery, Cholecystectomy, Orthopedic Surgery, Tonsillectomy Additional Past Surgical History / Comment(s): tilt table test, lap band 2007; NASAL FX REPAIR , ORIF LT ELBOW X2, PAIN PROCEDURES Past Anesthesia/Blood Transfusion Reactions: Postoperative Nausea & Vomiting ( PONV) Past Psychological History: Anxiety, Depression Additional Psychological History / Comment(s): PT SEES A DR FOR DEPRESSION, ANXIETY,BULEMIA. PT LOST A SON TO BRAIN CANCER,LOST HER MOM TO PNE AND HER DAD HAS LIVER CANCER with liver surgery and is better. SHE CURRENTLY LIVES WITH HER 2 DAUGHTERS AGES 3&11. STATED "PROBLEM W/BULEMIA MORE DAYS THAN NOT". TAKES RX TO HELP HER SLEEP "HAS NIGHT TERRORS". PT DENIES ANY THOUGHTS OF HARMING SELF. Smoking Status: Never smoker Past Alcohol Use History: None Reported Past Drug Use History: None Reported Additional Drug Use History / Comment(s): Patient lives with 2 daughters at home - Past Family History Mother Family Medical History: Pneumonia Additional Family Medical History / Comment(s): Mother of pneumonia. Patient's son of brain cancer, last mother and father both liver cancer Son(s) Family Medical History: Cancer Additional Family Medical History / Comment(s): Son of brain cancer. Father Family Medical History: Cancer, Liver Disease Additional Family Medical History / Comment(s): Father has liver cancer with surgery. He has hepatitis. Medications and Allergies Home Medications Medication Instructions Recorded Confirmed Type Levalbuterol Nebulized [Xopenex 0.63 mg INHALATION RT-QID PRN 09/30/13 03/06/17 History Nebulized] Montelukast [Singulair] 10 mg PO HS 09/30/13 03/06/17 History Levalbuterol Hfa Inhaler [Xopenex 2 puff INHALATION RT-Q6H PRN 01/07/14 History Hfa Inhaler] ARIPiprazole [Abilify] 5 mg PO QAM 05/04/14 03/06/17 History Desvenlafaxine Succinate [Pristiq] 100 mg PO QAM 11/07/15 03/06/17 History Medroxyprogesterone Acetate 150 mg IM Q90D 11/07/15 03/06/17 History [Depo-Provera] traZODone HCL [Desyrel] 100 mg PO HS PRN 11/21/15 03/06/17 History Bisacodyl 5 mg PO DAILY PRN 06/28/16 03/06/17 History Flunisolide [Aerospan] 2 puff INHALATION RT-BID 06/28/16 03/06/17 History Omalizumab [Xolair] 300 mg SQ Q30D 06/28/16 03/06/17 History Levothyroxine Sodium [Synthroid] 137 mcg PO DAILY 07/18/16 03/06/17 History Famotidine [Pepcid] 20 mg PO BID 10/02/16 03/06/17 History HYDROcodone/APAP 7.5-325MG [[place] 1 tab PO Q6HR PRN #120 tab 10/23/16 03/06/17 Rx 7.5-325] Ondansetron Odt [Zofran ODT] 4 mg PO Q8HR PRN #12 tab 01/31/17 03/06/17 Rx Tamsulosin [Flomax] 0.4 mg PO DAILY #10 cap 01/31/17 03/06/17 Rx Ibuprofen [Motrin] 600 mg PO Q6HR PRN #30 day 02/05/17 03/06/17 Rx Metoprolol Tartrate [Lopressor] 12.5 mg PO BID #60 tab 02/22/17 03/06/17 Rx predniSONE See Taper PO DAILY 03/05/17 03/06/17 History Pregabalin [Lyrica] 75 mg PO TID 03/06/17 03/06/17 History Allergies Allergy/AdvReac Type Severity Reaction Status Date / Time albuterol AdvReac Rapid Verified 03/06/17 13:52 Heart Rate Physical Exam Osteopathic Statement: *. No significant issues noted on an osteopathic structural exam other than those noted in the History and Physical/Consult. Vitals: Vital Signs Temp Pulse Pulse Resp BP BP BP 03/07/17 08:51 98.8 F 102 H 18 106/58 03/07/17 07:34 106 H 03/07/17 07:20 110 H 03/07/17 07:00 98.4 F 110 H 20 95/62 03/07/17 05:02 78 03/07/17 04:33 76 03/06/17 23:00 98.3 F 102 H 20 91/55 03/06/17 20:18 108 H 03/06/17 19:58 100 03/06/17 17:17 98.7 F 106 H 17 134/78 03/06/17 17:00 99.5 F 86 18 124/76 03/06/17 16:53 102 H 03/06/17 16:43 100 03/06/17 15:53 98.6 F 114 H 16 130/75 03/06/17 14:27 90 16 119/67 03/06/17 14:08 104 H 03/06/17 13:58 100 03/06/17 13:16 22 03/06/17 12:44 99.7 F H 111 H 24 136/79 Pulse Ox 03/07/17 08:51 96 03/07/17 07:34 03/07/17 07:20 97 03/07/17 07:00 96 03/07/17 05:02 03/07/17 04:33 03/06/17 23:00 97 03/06/17 20:18 03/06/17 19:58 03/06/17 17:17 97 03/06/17 17:00 100 03/06/17 16:53 03/06/17 16:43 03/06/17 15:53 98 03/06/17 14:27 100 03/06/17 14:08 03/06/17 13:58 03/06/17 13:16 03/06/17 12:44 98 Intake and Output 03/06/17 03/07/17 03/07/17 22:59 06:59 14:59 Intake Total 500 500 240 Balance 500 500 240 Intake: Oral 500 500 240 Other: Voiding Method Toilet # Voids 1 2 Gen.: Patient is alert and oriented 3, no acute distress Cardiovascular: Regular rate and rhythm, S1/S2 Lungs: Clear to auscultation bilaterally no wheezes rales or rhonchi Abdomen: Soft nontender nondistended positive bowel sounds Extremities: No edema Results - Laboratory Findings CBC and BMP: 03/06/17 13:10 03/06/17 13:10 Abnormal lab findings: Abnormal Labs 03/06/17 03/06/17 03/06/17 13:10 13:10 20:42 WBC 10.9 H Neutrophils # 8.4 H Chloride 111 H Carbon Dioxide 21 L POC Glucose (mg/dL) 216 H 03/07/17 07:17 WBC Neutrophils # Chloride Carbon Dioxide POC Glucose (mg/dL) 209 H - Diagnostic Findings Chest x-ray: report reviewed, image reviewed Assessment and Plan Plan: Acute exacerbation of severe persistent ALLERGIC asthma Dyspnea on exertion Wheezing, improved Cough Diet controlled diabetes 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
[2017-03-07 12:13] LABS: Glucose,Whole Blood 116 mg/dL (75-99)
--- NOTE | 2017-03-07 16:52 | PN ---
PROGRESS NOTE I am covering for Dr. English. DATE OF SERVICE: 03/07/2017 INTERVAL HISTORY: This 36-year-old woman was admitted with acute being followed by Dr. Gonzalez in the outpatient setting. The patient is on IV steroids. The patient has been complaining of shortness of breath and cough also. The patient is on steroids IV twice daily which is being tapered off also by pulmonary at this time. The patient is being closely monitored. Patient still has some shortness of breath and cough. PAST MEDICAL HISTORY: Reviewed. REVIEW OF SYSTEMS: CARDIOVASCULAR SYSTEM: No angina or palpitations. RESPIRATORY: As mentioned earlier. GI: As mentioned earlier. : No dysuria. CENTRAL NERVOUS SYSTEM: No numbness, weakness. MEDICATIONS: Reviewed and include: 1. Tylenol 650 q.6h p.r.n. 2. [place] 7.5 p.r.n. 3. Abilify 5 mg q.a.m. 4. Dulcolax 5 mg daily. 5. Pulmicort 0.5 b.i.d. 6. Lovenox 40 mg subcu. 7. Pepcid 20 mg b.i.d. 8. Motrin 600 mg q.6h. 9. Atrovent 0.5 q.4h. 10.Xopenex 1.25 q.i.d. 11.Synthroid 137 mcg p.o. daily. 12.Depo Provera. 13.Solu-Medrol 60 IV b.i.d. 14.Lopressor. 15.Singular 10 mg q.h.s. 16.P.r.n. medications. 17.Lyrica. PHYSICAL EXAMINATION: The patient is alert, oriented x3. Pulse is 80, blood pressure 99/50, respiratory 20, temperature 99.1, pulse ox 97% on room air. HEENT: Conjunctivae normal. Oral mucosa moist. Neck is no jugular venous distention. No carotid bruit. No lymph node enlargement. Breathing efforts increased. Bilateral scattered rhonchi and crackles. Expiratory wheezing also present. Abdomen is soft, nontender. No mass palpable. Legs no edema no swelling. Central nervous system: Higher functions as mentioned earlier. Moves all four limbs. No focal deficits. Lymphatics: No lymph nodes palpable in the neck, axillae or groin. Skin: No ulcer, rash or bleeding. LAB STUDIES: WBC 10.9. Glucose noted. ASSESSMENT: 1. Acute bronchial asthma acute exacerbation with acute purulent tracheobronchitis. 2. Increased WBC. 3. History of asthma. 4. History of seizure disorder. 5. History of peptic ulcer disease. 6. History of C diff, MRSA. 8. Anxiety, depression. RECOMMENDATIONS AND DISCUSSION: Recommend to continue current medications. Symptomatic treatment. Otherwise at this time I would continue the rest of medications. Continue with IV steroids, tapering dose, continue the DVT prophylaxis. Continue empiric antibiotics. Continue the bronchodilator treatment. Prognosis guarded because of multiple complex medical issues. Further recommendations to follow. MMODL / IJN: [id number] / RY
[2017-03-07 17:26] LABS: Glucose,Whole Blood 124 mg/dL (75-99)
[2017-03-07] MEDS: MONTELUKAST 10 MG TAB PO SCH (20:44)
[2017-03-07 20:52] LABS: Glucose,Whole Blood 129 mg/dL (75-99)
[2017-03-07] MEDS: traZODone HCL 50 MG TAB PO PRN (21:51)
[2017-03-08] MEDS: IPRATROPIUM 0.5 MG/2.5 ML NEBU INHALATION SCH ×4 (00:28→11:34)
[2017-03-08] MEDS: HYDROcodone/APAP 7.5-325MG 1 EACH TAB PO PRN ×2 (03:28→09:22)
[2017-03-08] MEDS: LEVOTHYROXINE 137 MCG TAB PO SCH (06:28)
[2017-03-08] MEDS: LEVALBUTEROL NEB (CONC) 1.25 MG/0.5 ML AMP INHALATION SCH ×2 (07:26→11:33)
[2017-03-08] MEDS: BUDESONIDE 0.5 MG/2 ML NEBU INHALATION SCH (07:26)
[2017-03-08 07:36] LABS: Glucose,Whole Blood 104 mg/dL (75-99)
[2017-03-08 07:50] VITALS: BP 123/73; TEMP 97.1
[2017-03-08] MEDS: INSULIN LISPRO (humaLOG) 300 UNIT/3 ML VIAL SQ SCH (07:53)
[2017-03-08 08:04] VITALS: RESP 18
[2017-03-08] MEDS: ENOXAPARIN 40 MG/0.4 ML SYRINGE SQ SCH (09:17)
[2017-03-08] MEDS: FAMOTIDINE 20 MG TAB PO SCH (09:18)
[2017-03-08] MEDS: ARIPiprazole 5 MG TAB PO SCH (09:18)
[2017-03-08] MEDS: METOPROLOL TARTRATE 12.5 MG TAB PO SCH (09:18)
[2017-03-08] MEDS: methylPREDNISolone SOD SUCCI 125 MG/2 ML VIAL IV SCH ×2 (09:18→09:50)
[2017-03-08] MEDS: TAMSULOSIN 0.4 MG CAP.ER.24H PO SCH (09:19)
[2017-03-08] MEDS ORDERED: INFLUENZA VACCINE (6 MOS+) 60 MCG/0.5 ML SYRINGE IM ONE (09:25)
[2017-03-08] MEDS ORDERED: predniSONE 20 MG TAB PO SCH (10:00)
[2017-03-08] MEDS: PREGABALIN 75 MG CAP PO SCH (10:07)
[2017-03-08 11:46] VITALS: PULSE 72
[2017-03-08 12:22] LABS: Glucose,Whole Blood 143 mg/dL (75-99)
--- NOTE | 2017-03-08 13:23 | PN ---
PROGRESS NOTE DATE OF SERVICE: 03/08/2017 HISTORY: Patient is a 36-year-old female who is seen sitting up in bed, is awake and alert. Plan is for her to go home today. Patient is hemodynamically stable, afebrile and in no acute distress. PHYSICAL EXAM: Vital signs temp 97.1, heart rate 72, respiratory rate 18, blood pressure is 123/73, O2 sats 98% on room air. HEENT: HEAD: Normocephalic, atraumatic. NECK: Supple. Trachea is midline. LUNGS: Clear. No rales or wheezes. HEART: S1, S2 heard. Not tachycardic. ABDOMEN: Soft. Bowel sounds heard. EXTREMITIES: With no edema. Neurologic: Patient is awake, alert, oriented. LABS: No new labs to review. IMAGING: No new imaging to review. IMPRESSION: 1. Acute exacerbation of severe persistent allergic asthma. 2. Dyspnea on exertion. 3. Wheezing. 4. Diet-controlled diabetes. 5. 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 6. Hypothyroidism. 7. Chronic pain. 8. Peptic ulcer disease. PLAN: Continue bronchodilators and aerosolized steroids. The patient has been switched to oral prednisone. Continue 60 mg daily until seen by Dr. Jalloh in the office early next week. Continue leukotriene inhibitors. From a pulmonary perspective, patient is stable to be discharged home. MMODL / IJN: [id number] /
--- NOTE | 2017-03-08 19:32 | P.DS ---
Providers Date of admission: 03/06/17 13:56 Attending physician: Anthony English Consults: 03/06/17 13:56 Consult Physician Stat Consulting Provider: Toby Jalloh Consult Reason/Comments: Asthma exacerbation Do you want consulting provider notified?: Yes Primary care physician: Slade [facility] Hospital Course: This 36-year-old woman with a past medical history multiple medical problems was admitted with acute bronchial asthma acute exacerbation of acute purulent tracheobronchitis. Patient was treated with antibiotics and bronchodilators and steroids. Patient improved significantly. 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 On exam vitals stable. Cardio S1 and S2 normal. Abdomen soft nontender. Respirator system few scattered rhonchi. Final diagnoses 1. Acute bronchial asthma acute exacerbation with acute purulent tracheo- bronchitis. 2. Increased WBC. 3. History of asthma. 4. History of seizure disorder. 5. History of peptic ulcer disease. 6. History of C. difficile and MRSA 7. Anxiety depression. Patient Condition at Discharge: Fair Plan - Discharge Summary New Discharge Prescriptions: New predniSONE 10 mg PO DIRECTED #30 tab Continue Montelukast [Singulair] 10 mg PO HS Levalbuterol Nebulized [Xopenex Nebulized] 0.63 mg INHALATION RT-QID PRN PRN Reason: Shortness Of Breath Levalbuterol Hfa Inhaler [Xopenex Hfa Inhaler] 2 puff INHALATION RT-Q6H PRN PRN Reason: Shortness Of Breath ARIPiprazole [Abilify] 5 mg PO QAM Medroxyprogesterone Acetate [Depo-Provera] 150 mg IM Q90D Desvenlafaxine Succinate [Pristiq] 100 mg PO QAM traZODone HCL [Desyrel] 100 mg PO HS PRN PRN Reason: Insomnia Omalizumab [Xolair] 300 mg SQ Q30D Flunisolide [Aerospan] 2 puff INHALATION RT-BID Bisacodyl 5 mg PO DAILY PRN PRN Reason: Constipation Levothyroxine Sodium [Synthroid] 137 mcg PO DAILY Famotidine [Pepcid] 20 mg PO BID HYDROcodone/APAP 7.5-325MG [[place] 7.5-325] 1 tab PO Q6HR PRN #120 tab PRN Reason: Pain Ondansetron Odt [Zofran ODT] 4 mg PO Q8HR PRN #12 tab PRN Reason: Nausea Tamsulosin [Flomax] 0.4 mg PO DAILY #10 cap Ibuprofen [Motrin] 600 mg PO Q6HR PRN #30 day PRN Reason: Pain Metoprolol Tartrate [Lopressor] 12.5 mg PO BID #60 tab Pregabalin [Lyrica] 75 mg PO TID Discontinued predniSONE See Taper PO DAILY Discharge Medication List Levalbuterol Nebulized [Xopenex Nebulized] 0.63 mg INHALATION RT-QID PRN [History] Montelukast [Singulair] 10 mg PO HS 09/30/13 [History] Levalbuterol Hfa Inhaler [Xopenex Hfa Inhaler] 2 puff INHALATION RT-Q6H PRN [History] ARIPiprazole [Abilify] 5 mg PO QAM 05/04/14 [History] Desvenlafaxine Succinate [Pristiq] 100 mg PO QAM 11/07/15 [History] Medroxyprogesterone Acetate [Depo-Provera] 150 mg IM Q90D 11/07/15 [History] traZODone HCL [Desyrel] 100 mg PO HS PRN 11/21/15 [History] Bisacodyl 5 mg PO DAILY PRN 06/28/16 [History] Flunisolide [Aerospan] 2 puff INHALATION RT-BID 06/28/16 [History] Omalizumab [Xolair] 300 mg SQ Q30D 06/28/16 [History] Levothyroxine Sodium [Synthroid] 137 mcg PO DAILY 07/18/16 [History] Famotidine [Pepcid] 20 mg PO BID 10/02/16 [History] HYDROcodone/APAP 7.5-325MG [[place] 7.5-325] 1 tab PO Q6HR PRN #120 tab 10/23/16 [ Rx] Ondansetron Odt [Zofran ODT] 4 mg PO Q8HR PRN #12 tab 01/31/17 [Rx] Tamsulosin [Flomax] 0.4 mg PO DAILY #10 cap 01/31/17 [Rx] Ibuprofen [Motrin] 600 mg PO Q6HR PRN #30 day 02/05/17 [Rx] Metoprolol Tartrate [Lopressor] 12.5 mg PO BID #60 tab 02/22/17 [Rx] Pregabalin [Lyrica] 75 mg PO TID 03/06/17 [History] predniSONE 10 mg PO DIRECTED #30 tab 03/08/17 [Rx] Follow up Appointment(s)/Referral(s): Slade Gonzalez MD [Primary Care Provider] - 03/19/17 3:40 pm Ammy Locke DO [Doctor of Osteopathic Medicine] - 03/22/17 2:30 pm Ambulatory/Diagnostic Orders: Complete Blood Count w/diff [LAB.AMB] Time Frame: 3 Days, Location: Determined By Patient Patient Instructions/Handouts: Asthma (DC) Activity/Diet/Wound Care/Special Instructions: Diet: cardiac activity: limited until follow up Flu shot given. Discharge Disposition: HOME SELF-CARE
[2017-04-25] MEDS ORDERED: medroxyPROGESTERone 150 MG/ML 1ML VIAL IM SCH (12:00)
== END 2017-03-08 12:38 | disposition home or self-care (01) | DRG 141 ==
LOC: EC 12:00 → 4MS4W 13:56
PROVIDERS: ADMIT Hospitalist; ATTEND Hospitalist
DX: J45.51 Severe persistent asthma with (acute) exacerbation (principal); F50.2 Bulimia nervosa; E11.9 Type 2 diabetes mellitus without complications; M50.20 Other cervical disc displacement, unspecified cervical region; K27.9 Peptic ulcer, site unspecified, unspecified as acute or chronic, without hemorrhage or perforation; J20.9 Acute bronchitis, unspecified; E03.9 Hypothyroidism, unspecified; F41.8 Other specified anxiety disorders; G89.29 Other chronic pain; K21.9 Gastro-esophageal reflux disease without esophagitis; M81.0 Age-related osteoporosis without current pathological fracture; T38.0X5A Adverse effect of glucocorticoids and synthetic analogues, initial encounter; M51.26 Other intervertebral disc displacement, lumbar region; F32.9 Major depressive disorder, single episode, unspecified; Z79.52 Long term (current) use of systemic steroids; Z79.899 Other long term (current) drug therapy; Z98.84 Bariatric surgery status; Z86.14 Personal history of Methicillin resistant Staphylococcus aureus infection; Z88.8 Allergy status to other drugs, medicaments and biological substances; Y92.009 Unspecified place in unspecified non-institutional (private) residence as the place of occurrence of the external cause
CPT/HCPCS: 36415; 71020; 80053; 83735; 85025; 90686; 93005; 94640; 94760; 96361; 96374; 96375; 99284

== ENCOUNTER 2017-03-28 22:53 | Observation (INO) | payer OTHER ==
[2017-03-28] MEDS ORDERED: DEXTROSE 50%-WATER 50 ML SYRINGE IVP STA (23:17)
[2017-03-28] MEDS ORDERED: SODIUM CHLORIDE 0.9% 500 ML IV STA (23:19)
[2017-03-28] MEDS ORDERED: SODIUM CHLORIDE 0.9% 1,000 ML IV STA (23:19)
[2017-03-28] MEDS ORDERED: DEXTROSE 5% IN WATER 1,000 ML IV ONE (23:19)
[2017-03-28] MEDS ORDERED: ONDANSETRON 4 MG/2 ML VIAL IVP STA (23:19)
[2017-03-28 23:33] LABS: Glucose,Whole Blood 33 mg/dL (75-99)
[2017-03-28 23:45] LABS: Basophils % (A) 1 %; CH 32.7; CHCM 34.5; Eosinophils # (A) 0.1 k/uL (0-0.7); Eosinophils % (A) 2 %; HCT 35.6 % (34.0-46.0); HDW 2.79; HGB 12.2 gm/dL (11.4-16.0); Luc # (Auto) 0.14; Luc % (Auto) 2; Lymphocytes # (A) 2.8 k/uL (1.0-4.8); Lymphocytes % (A) 48 %; MCH 32.6 pg (25.0-35.0); MCHC 34.2 g/dL (31.0-37.0); MCV 95.3 fL (80.0-100.0); Mean Platelet Volume 7.8; Monocytes # (A) 0.3 k/uL (0-1.0); Monocytes % (A) 4 %; Neutrophils # (A) 2.6 k/uL (1.3-7.7); Neutrophils % (A) 43 %; RBC 3.74 m/uL (3.80-5.40); RDW 13.4 % (11.5-15.5); WBC 5.9 k/uL (3.8-10.6); WBC (Perox) 6.19
[2017-03-28 23:55] LABS: ALT 23 U/L (9-52); AST 13 U/L (14-36); Alkaline Phosphatase 45 U/L (38-126); Amylase 78 U/L (30-110); Anion Gap 9 mmol/L; Blood Urea Nitrogen 15 mg/dL (7-17); Calcium 9.3 mg/dL (8.4-10.2); Carbon Dioxide 22 mmol/L (22-30); Chloride 108 mmol/L (98-107); Glucose 217 mg/dL (74-99); Non-African American GFR(MDRD) >60 (>60 ml/min/1.73 sqM); Potassium 3.3 mmol/L (3.5-5.1); Sodium 139 mmol/L (137-145); Total Bilirubin 0.4 mg/dL (0.2-1.3); Total Protein 5.8 g/dL (6.3-8.2)
[2017-03-29] MEDS ORDERED: HYDROmorphone 1 MG/ML 1 ML SYRINGE IVP STA (00:09)
[2017-03-29 00:14] LABS: Glucose,Whole Blood 122 mg/dL (75-99)
[2017-03-29] MEDS ORDERED: DEXTROSE 50%-WATER 50 ML SYRINGE IVP STA ×2 (00:23→02:00)
[2017-03-29 00:25] LABS: Glucose,Whole Blood 45 mg/dL (75-99)
[2017-03-29 01:19] LABS: Glucose,Whole Blood 128 mg/dL (75-99)
[2017-03-29 01:19] LABS: Glucose,Whole Blood 94 mg/dL (75-99)
[2017-03-29] MEDS ORDERED: NALOXONE 0.4 MG/ML 1 ML VIAL IV PRN (01:33)
[2017-03-29] MEDS ORDERED: WATER IV ONE (01:43)
[2017-03-29] MEDS ORDERED: SODIUM CHLORIDE IV ONE (01:43)
[2017-03-29] MEDS ORDERED: DEXTROSE IV ONE (01:43)
[2017-03-29 01:51] LABS: Glucose,Whole Blood 61 mg/dL (75-99)
--- NOTE | 2017-03-29 02:01 | ED ---
Abdominal Pain HPI - General Chief Complaint: Abdominal Pain Stated Complaint: vomiting/diarrhea/abdominal pain Time Seen by Provider: 03/28/17 23:01 Source: patient Mode of arrival: ambulatory Limitations: no limitations - History of Present Illness Initial Comments: 36 year-old female patient presents to emergency department today with complaints of epigastric abdominal pain and vomiting that started yesterday. Patient states that the pain is intense and cramping. She is currently rating it a 10 out of 10 on the pain scale. States that she's been unable to keep any food or fluids down today. Patient states that she is also beginning to feel somewhat disoriented and believes her blood sugar may be dropping. Patient states that she was recently admitted with similar symptoms. Patient denies any use of oral or injectable hyperglycemia medication. She states that she has an extensive history of hypoglycemia, has seen endocrinology for this who instructed her to manage with diet. Patient states that when she is unable to eat or drink this causes her to become severely hypoglycemic and she has to be admitted to the hospital. She also reports that she spoke to Dr. Dupree over the last couple of days who was going to be managing an obstruction of her lap band outpatient. Patient states that symptoms today are similar to the symptoms she was experiencing last week prior to admission. Patient denies any recent rash, fever, chills, shortness breath, chest pain, diarrhea, constipation, hematemesis, hematochezia, melena, back pain, numbness, tingling, dizziness, weakness, hematuria, dysuria, urinary urgency, urinary frequency, headache, visual changes, or any other complaints. - Related Data Home Medications Medication Instructions Recorded Confirmed Levalbuterol Nebulized [Xopenex 0.63 mg INHALATION RT-QID PRN 09/30/13 03/28/17 Nebulized] Montelukast [Singulair] 10 mg PO HS 09/30/13 03/28/17 Levalbuterol Hfa Inhaler [Xopenex 2 puff INHALATION RT-Q6H PRN 01/07/14 03/28/17 Hfa Inhaler] ARIPiprazole [Abilify] 5 mg PO QAM 05/04/14 03/28/17 Desvenlafaxine Succinate [Pristiq] 100 mg PO QAM 11/07/15 03/28/17 Medroxyprogesterone Acetate 150 mg IM Q90D 11/07/15 03/28/17 [Depo-Provera] traZODone HCL [Desyrel] 100 mg PO HS PRN 11/21/15 03/28/17 Bisacodyl 5 mg PO DAILY PRN 06/28/16 03/28/17 Flunisolide [Aerospan] 2 puff INHALATION RT-BID 06/28/16 03/28/17 Omalizumab [Xolair] 300 mg SQ Q30D 06/28/16 03/28/17 Levothyroxine Sodium [Synthroid] 137 mcg PO DAILY 07/18/16 03/28/17 Famotidine [Pepcid] 20 mg PO BID 10/02/16 03/28/17 Pregabalin [Lyrica] 75 mg PO TID 03/06/17 03/28/17 Previous Rx's Medication Instructions Recorded HYDROcodone/APAP 7.5-325MG [[place] 1 tab PO Q6HR PRN #120 tab 10/23/16 7.5-325] Ondansetron Odt [Zofran ODT] 4 mg PO Q8HR PRN #12 tab 01/31/17 Tamsulosin [Flomax] 0.4 mg PO DAILY #10 cap 01/31/17 Ibuprofen [Motrin] 600 mg PO Q6HR PRN #30 day 02/05/17 Metoprolol Tartrate [Lopressor] 12.5 mg PO BID #60 tab 02/22/17 Allergies Allergy/AdvReac Type Severity Reaction Status Date / Time albuterol AdvReac Rapid Verified 03/28/17 23:06 Heart Rate Review of Systems ROS Statement: Those systems with pertinent positive or pertinent negative responses have been documented in the HPI. ROS Other: All systems not noted in ROS Statement are negative. Past Medical History Past Medical History: Asthma, Seizure Disorder, Thyroid Disorder Additional Past Medical History / Comment(s): TACHYCARDIA, peptic ulcers, anemia."HAS BEEN ON VENTILATOR IN PAST D/T SEVERE ASTHMA ATTACK, BULEMIA-STATES GETTING BETTER, CONSTIPATION. CHRONIC BACK PAIN ,SEIZURES HAS SINCE BEEN TAKEN OFF MEDS, elevated blood sugar with steroid use and hypoglycemia when off steroids , "superficial blood clots" bilateral arms. History of Any Multi-Drug Resistant Organisms: C-DIFF, MRSA Date of last positivie culture/infection: 08/25/14 MDRO Source:: Groin Past Surgical History: Bariatric Surgery, Cholecystectomy, Orthopedic Surgery, Tonsillectomy Additional Past Surgical History / Comment(s): tilt table test, lap band 2008; NASAL FX REPAIR , ORIF LT ELBOW X2, PAIN PROCEDURES Past Anesthesia/Blood Transfusion Reactions: Postoperative Nausea & Vomiting ( PONV) Past Psychological History: Anxiety, Depression Smoking Status: Never smoker Past Alcohol Use History: None Reported Past Drug Use History: None Reported - Past Family History Mother Family Medical History: Pneumonia Additional Family Medical History / Comment(s): Mother of pneumonia. Patient's son of brain cancer, last mother and father both liver cancer Son(s) Family Medical History: Cancer Additional Family Medical History / Comment(s): Son of brain cancer. Father Family Medical History: Cancer, Liver Disease Additional Family Medical History / Comment(s): Father has liver cancer with surgery. He has hepatitis. General Exam Limitations: no limitations General appearance: alert, in no apparent distress, other (This is a well- developed, well-nourished, pale appearing adult female patient in no acute distress. Vital signs upon presentation are temperature 97.7F, pulse 104, respirations 18, blood pressure 129/79, pulse ox 98% on room air.) Eye exam: Present: normal appearance, PERRL, EOMI. Absent: scleral icterus, conjunctival injection, periorbital swelling ENT exam: Present: normal exam, normal oropharynx, mucous membranes moist Respiratory exam: Present: normal lung sounds bilaterally. Absent: respiratory distress, wheezes, rales, rhonchi, stridor Cardiovascular Exam: Present: regular rate, normal rhythm, normal heart sounds. Absent: systolic murmur, diastolic murmur, rubs, gallop, clicks GI/Abdominal exam: Present: soft, tenderness (Mildly tender in the upper abdomen.), normal bowel sounds. Absent: distended, guarding, rebound, rigid Neurological exam: Present: alert, oriented X3, CN II-XII intact Psychiatric exam: Present: normal affect, normal mood Skin exam: Present: warm, dry, intact, pallor. Absent: normal color, rash Course Vital Signs 03/28/17 03/28/17 03/29/17 22:56 23:58 01:27 Temperature 97.7 F Pulse Rate 104 H 87 106 H Respiratory 18 18 18 Rate Blood Pressure 129/79 115/58 108/55 O2 Sat by Pulse 98 100 98 Oximetry Medical Decision Making - Medical Decision Making 36 year-old female patient presented for evaluation of epigastric abdominal pain , nausea, and vomiting. Physical exam did reveal some mild upper abdominal tenderness, no guarding, no rebound tenderness. Patient was found to be hypoglycemic during her visit. Other labs were unremarkable. She was given multiple doses of dextrose 50% as well as an infusion of dextrose 5% in water without much improvement of her blood sugar. She was also given IV pain and nausea medications which did improve her symptoms enough to be able to tolerate oral intake. She did have horace crackers and orange juice, blood sugar after this was 55. We will change her infusion to dextrose 10% with 0.45% normal saline. Hypoglycemia protocol will be ordered. She will be admitted to Dr. Melvin's service. She'll be provided with nausea medication. - Lab Data Result diagrams: 03/28/17 23:30 03/28/17 23:30 Lab Results 03/28/17 03/28/17 03/28/17 Range/Units 23:16 23:30 23:30 WBC 5.9 (3.8-10.6) k/uL RBC 3.74 L (3.80-5.40) m/uL Hgb 12.2 (11.4-16.0) gm/dL Hct 35.6 (34.0-46.0) % MCV 95.3 (80.0-100.0) fL MCH 32.6 (25.0-35.0) pg MCHC 34.2 (31.0-37.0) g/dL RDW 13.4 (11.5-15.5) % Plt Count 198 (150-450) k/uL Neutrophils % 43 % Lymphocytes % 48 % Monocytes % 4 % Eosinophils % 2 % Basophils % 1 % Neutrophils # 2.6 (1.3-7.7) k/uL Lymphocytes # 2.8 (1.0-4.8) k/uL Monocytes # 0.3 (0-1.0) k/uL Eosinophils # 0.1 (0-0.7) k/uL Basophils # 0.0 (0-0.2) k/uL Sodium 139 (137-145) mmol/L Potassium 3.3 L (3.5-5.1) mmol/L Chloride 108 H (98-107) mmol/L Carbon Dioxide 22 (22-30) mmol/L Anion Gap 9 mmol/L BUN 15 (7-17) mg/dL Creatinine 0.90 (0.52-1.04) mg/dL Est GFR (MDRD) Af Amer >60 (>60 ml/min/1.73 sqM) Est GFR (MDRD) Non-Af >60 (>60 ml/min/1.73 sqM) Glucose 217 H (74-99) mg/dL POC Glucose (mg/dL) 33 L (75-99) mg/dL POC Glu Neurology Professor Franklin Alicia Calcium 9.3 (8.4-10.2) mg/dL Total Bilirubin 0.4 (0.2-1.3) mg/dL AST 13 L (14-36) U/L ALT 23 (9-52) U/L Alkaline Phosphatase 45 (38-126) U/L Total Protein 5.8 L (6.3-8.2) g/dL Albumin 3.7 (3.5-5.0) g/dL Amylase 78 (30-110) U/L Lipase 57 (23-300) U/L 03/28/17 03/29/17 03/29/17 Range/Units 23:47 00:20 00:45 WBC (3.8-10.6) k/uL RBC (3.80-5.40) m/uL Hgb (11.4-16.0) gm/dL Hct (34.0-46.0) % MCV (80.0-100.0) fL MCH (25.0-35.0) pg MCHC (31.0-37.0) g/dL RDW (11.5-15.5) % Plt Count (150-450) k/uL Neutrophils % % Lymphocytes % % Monocytes % % Eosinophils % % Basophils % % Neutrophils # (1.3-7.7) k/uL Lymphocytes # (1.0-4.8) k/uL Monocytes # (0-1.0) k/uL Eosinophils # (0-0.7) k/uL Basophils # (0-0.2) k/uL Sodium (137-145) mmol/L Potassium (3.5-5.1) mmol/L Chloride (98-107) mmol/L Carbon Dioxide (22-30) mmol/L Anion Gap mmol/L BUN (7-17) mg/dL Creatinine (0.52-1.04) mg/dL Est GFR (MDRD) Af Amer (>60 ml/min/1.73 sqM) Est GFR (MDRD) Non-Af (>60 ml/min/1.73 sqM) Glucose (74-99) mg/dL POC Glucose (mg/dL) 122 H 45 L 128 H (75-99) mg/dL POC Glu Neurology Professor NENO Tabares, Amada Palacios, Beatris Palacios, Beatris Calcium (8.4-10.2) mg/dL Total Bilirubin (0.2-1.3) mg/dL AST (14-36) U/L ALT (9-52) U/L Alkaline Phosphatase (38-126) U/L Total Protein (6.3-8.2) g/dL Albumin (3.5-5.0) g/dL Amylase (30-110) U/L Lipase (23-300) U/L 03/29/17 Range/Units 01:03 WBC (3.8-10.6) k/uL RBC (3.80-5.40) m/uL Hgb (11.4-16.0) gm/dL Hct (34.0-46.0) % MCV (80.0-100.0) fL MCH (25.0-35.0) pg MCHC (31.0-37.0) g/dL RDW (11.5-15.5) % Plt Count (150-450) k/uL Neutrophils % % Lymphocytes % % Monocytes % % Eosinophils % % Basophils % % Neutrophils # (1.3-7.7) k/uL Lymphocytes # (1.0-4.8) k/uL Monocytes # (0-1.0) k/uL Eosinophils # (0-0.7) k/uL Basophils # (0-0.2) k/uL Sodium (137-145) mmol/L Potassium (3.5-5.1) mmol/L Chloride (98-107) mmol/L Carbon Dioxide (22-30) mmol/L Anion Gap mmol/L BUN (7-17) mg/dL Creatinine (0.52-1.04) mg/dL Est GFR (MDRD) Af Amer (>60 ml/min/1.73 sqM) Est GFR (MDRD) Non-Af (>60 ml/min/1.73 sqM) Glucose (74-99) mg/dL POC Glucose (mg/dL) 94 (75-99) mg/dL POC Glu Neurology Professor Amada Medel Calcium (8.4-10.2) mg/dL Total Bilirubin (0.2-1.3) mg/dL AST (14-36) U/L ALT (9-52) U/L Alkaline Phosphatase (38-126) U/L Total Protein (6.3-8.2) g/dL Albumin (3.5-5.0) g/dL Amylase (30-110) U/L Lipase (23-300) U/L Disposition Clinical Impression: Abdominal pain, Nausea & vomiting, Hypoglycemia Disposition: ADMITTED IP TO THIS [facility] Condition: Serious Referrals: Slade Gonzalez MD [Primary Care Provider] - 1-2 days Decision to Admit Reason: Admit from EC Decision Date: 03/29/17 Decision Time: 02:06
[2017-03-29] MEDS ORDERED: POTASSIUM CHLORIDE ORAL LIQUID 40 MEQ/30 ML CUP PO ONE (02:09)
[2017-03-29] MEDS ORDERED: ONDANSETRON 4 MG/2 ML VIAL IVP PRN (02:24)
[2017-03-29 02:27] LABS: Glucose,Whole Blood 119 mg/dL (75-99)
[2017-03-29 02:27] LABS: Glucose,Whole Blood 55 mg/dL (75-99)
[2017-03-29] MEDS ORDERED: POTASSIUM CHLORIDE ER 20 MEQ TAB.ER PO STA (03:02)
[2017-03-29 03:29] VITALS: BMI 27.4
[2017-03-29 04:10] LABS: Glucose,Whole Blood 105 mg/dL (75-99)
[2017-03-29 04:35] LABS: Glucose,Whole Blood 132 mg/dL (75-99)
[2017-03-29 05:29] LABS: Glucose,Whole Blood 112 mg/dL (75-99)
[2017-03-29] MEDS ORDERED: MORPHINE SULFATE 10 MG/ML SYRINGE IVP ONE (06:10)
[2017-03-29 06:46] LABS: Glucose,Whole Blood 105 mg/dL (75-99)
[2017-03-29 07:22] LABS: Basophils % (A) 0 %; CH 33.2; CHCM 34.6; Eosinophils # (A) 0.1 k/uL (0-0.7); Eosinophils % (A) 2 %; HCT 32.6 % (34.0-46.0); HDW 3.03; HGB 11.1 gm/dL (11.4-16.0); Luc # (Auto) 0.09; Luc % (Auto) 2; Lymphocytes # (A) 1.3 k/uL (1.0-4.8); Lymphocytes % (A) 27 %; MCH 32.9 pg (25.0-35.0); MCV 96.7 fL (80.0-100.0); Mean Platelet Volume 7.2; Monocytes # (A) 0.3 k/uL (0-1.0); Monocytes % (A) 6 %; Neutrophils # (A) 2.9 k/uL (1.3-7.7); Neutrophils % (A) 63 %; RBC 3.37 m/uL (3.80-5.40); RDW 12.8 % (11.5-15.5); WBC 4.6 k/uL (3.8-10.6); WBC (Perox) 4.67
[2017-03-29 07:36] LABS: Glucose,Whole Blood 99 mg/dL (75-99)
[2017-03-29 08:30] VITALS: RESP 16
[2017-03-29 09:21] LABS: Glucose,Whole Blood 89 mg/dL (75-99)
[2017-03-29 09:53] LABS: Glucose,Whole Blood 81 mg/dL (75-99)
[2017-03-29 10:34] LABS: Glucose,Whole Blood 92 mg/dL (75-99)
[2017-03-29] MEDS ORDERED: FAMOTIDINE 20 MG/2 ML VIAL IV SCH (12:30)
[2017-03-29] MEDS ORDERED: SODIUM CHLORIDE 0.9% 1,000 ML IV SCH (12:30)
[2017-03-29] MEDS ORDERED: LEVOTHYROXINE 137 MCG TAB PO SCH (12:30)
[2017-03-29 14:51] LABS: Glucose,Whole Blood 90 mg/dL (75-99)
[2017-03-29 15:15] VITALS: BP 86/49; PULSE 87; TEMP 98.8
[2017-03-29 16:33] LABS: Glucose,Whole Blood 88 mg/dL (75-99)
--- NOTE | 2017-03-29 22:55 | P.HPIM ---
History of Present Illness H&P Date: 03/29/17 Chief Complaint: Nausea vomiting and diarrhea Patient is a 36 year-old female with a past medical history of asthma, hypothyroidism, seizures, hypoglycemia and also history of bulimia came to the hospital the complains of nausea vomiting or abdominal pain as well as diarrhea 1 day duration prior to admission. Patient has not been tolerating any oral diet. Her blood sugar went down to 30 and she came to the hospital. Patient does have history of hypoglycemia and is on follow with [facility] consultant. Patient was advised to eat regular meals. Otherwise patient denied any complaints of fever or chills. No complaints of chest pain or short of breath. Patient does have history of lap band surgery and is on follow with Dr. Irene as outpatient. Patient denied any hematemesis or melena. No numbness or tingling. Denied any hematuria or dysuria. Review of Systems Constitutional: Patient denies any fever or chills . No generalized weakness or weight loss. Abdomen: Patient does have nausea vomiting diarrhea and abdominal pain. Cardiovascular: Patient denies any chest pain or short of breath no palpitations. Respiratory: patient denied any cough is from production. No shortness of breath Neurologic: Patient denied any numbness or tingling headache. Musculoskeletal: Patient denies any complaints of joint swelling or deformity. Skin: Negative Psychiatric: Negative Endocrine: No heat or cold intolerance. No recent weight gain. Genitourinary: No dysuria or hematuria. All other 14 point ROS negative except the above Past Medical History Past Medical History: Asthma, Seizure Disorder, Thyroid Disorder Additional Past Medical History / Comment(s): TACHYCARDIA, peptic ulcers, anemia."HAS BEEN ON VENTILATOR IN PAST D/T SEVERE ASTHMA ATTACK, BULEMIA-STATES GETTING BETTER, CONSTIPATION. CHRONIC BACK PAIN ,SEIZURES -2014 HAS SINCE BEEN TAKEN OFF MEDS, elevated blood sugar with steroid use and hypoglycemia when off steroids , "superficial blood clots" bilateral arms. History of Any Multi-Drug Resistant Organisms: C-DIFF, MRSA Date of last positivie culture/infection: 08/25/14 MDRO Source:: Groin Past Surgical History: Bariatric Surgery, Cholecystectomy, Orthopedic Surgery, Tonsillectomy Additional Past Surgical History / Comment(s): tilt table test, lap band 2007; NASAL FX REPAIR , ORIF LT ELBOW X2, PAIN PROCEDURES Past Anesthesia/Blood Transfusion Reactions: Postoperative Nausea & Vomiting ( PONV) Past Psychological History: Anxiety, Depression Smoking Status: Never smoker Past Alcohol Use History: None Reported Past Drug Use History: None Reported - Past Family History Mother Family Medical History: Pneumonia Additional Family Medical History / Comment(s): Mother of pneumonia. Patient's son of brain cancer, last mother and father both liver cancer Son(s) Family Medical History: Cancer Additional Family Medical History / Comment(s): Son of brain cancer. Father Family Medical History: Cancer, Liver Disease Additional Family Medical History / Comment(s): Father has liver cancer with surgery. He has hepatitis. Medications and Allergies Home Medications Medication Instructions Recorded Confirmed Type Levalbuterol Nebulized [Xopenex 0.63 mg INHALATION RT-QID PRN 09/30/13 03/28/17 History Nebulized] Montelukast [Singulair] 10 mg PO HS 09/30/13 03/28/17 History Levalbuterol Hfa Inhaler [Xopenex 2 puff INHALATION RT-Q6H PRN 01/07/14 History Hfa Inhaler] ARIPiprazole [Abilify] 5 mg PO QAM 05/04/14 03/28/17 History Desvenlafaxine Succinate [Pristiq] 100 mg PO QAM 11/07/15 03/28/17 History Medroxyprogesterone Acetate 150 mg IM Q90D 11/07/15 03/28/17 History [Depo-Provera] traZODone HCL [Desyrel] 100 mg PO HS PRN 11/21/15 03/28/17 History Bisacodyl 5 mg PO DAILY PRN 06/28/16 03/28/17 History Flunisolide [Aerospan] 2 puff INHALATION RT-BID 06/28/16 03/28/17 History Omalizumab [Xolair] 300 mg SQ Q30D 06/28/16 03/28/17 History Levothyroxine Sodium [Synthroid] 137 mcg PO DAILY 07/18/16 03/28/17 History Famotidine [Pepcid] 20 mg PO BID 10/02/16 03/28/17 History HYDROcodone/APAP 7.5-325MG [[place] 1 tab PO Q6HR PRN #120 tab 10/23/16 03/28/17 Rx 7.5-325] Ondansetron Odt [Zofran ODT] 4 mg PO Q8HR PRN #12 tab 01/31/17 03/28/17 Rx Metoprolol Tartrate [Lopressor] 12.5 mg PO BID #60 tab 02/22/17 03/28/17 Rx Pregabalin [Lyrica] 75 mg PO TID 03/06/17 03/28/17 History Allergies Allergy/AdvReac Type Severity Reaction Status Date / Time albuterol AdvReac Rapid Verified 03/28/17 23:06 Heart Rate Physical Exam Vitals: Vital Signs Temp Pulse Pulse Resp BP BP BP 03/29/17 07:53 107/63 03/29/17 07:00 98.6 F 91 16 95/58 03/29/17 03:48 100/60 03/29/17 03:47 97.7 F 99 99/55 03/29/17 01:27 106 H 18 108/55 03/28/17 23:58 87 18 115/58 03/28/17 22:56 97.7 F 104 H 18 129/79 Pulse Ox 03/29/17 07:53 03/29/17 07:00 99 03/29/17 03:48 03/29/17 03:47 100 03/29/17 01:27 98 03/28/17 23:58 100 03/28/17 22:56 98 Intake and Output 03/28/17 03/29/17 03/29/17 22:59 06:59 14:59 Intake Total 1390 Balance 1390 Intake: Intake, IV Titration 600 Amount Dextrose 5% in Water 1, 600 000 ml @ 100 mls/hr IV . Q10H ONE Rx#:[id number] Oral 790 Other: Voiding Method Toilet # Voids 2 Weight 68.039 kg 68.039 kg PHYSICAL EXAMINATION: Patient is lying in the bed comfortably, no acute distress, awake alert and oriented.. HEENT: Normocephalic. Neck is supple. Pupils reactive. Nostrils clear. Oral cavity is moist. Ears reveal no drainage. Neck reveals no JVD, carotid bruits, or thyromegaly. CHEST EXAMINATION: Trachea is central. Symmetrical expansion. Lung cervantes clear to auscultation and percussion. CARDIAC: Normal S1, S2 with no gallops. No murmurs ABDOMEN: Soft. Mild epigastric tenderness. Bowel sounds normal. No organomegaly. No abdominal bruits. Extremities: reveal no edema. No clubbing or cyanosis Neurologically awake, alert, oriented x3 with well-coordinated movements. No focal deficits noted Skin: No rash or skin lesions. Psychiatric: Operative. Nonsuicidal Musculoskeletal: No joint swelling or deformity. Normal range of motion. Results CBC & Chem 7: 03/29/17 06:59 03/28/17 23:30 Labs: Abnormal Lab Results - Last 24 Hours (Table) 03/28/17 03/28/17 03/28/17 Range/Units 23:16 23:30 23:30 RBC 3.74 L (3.80-5.40) m/uL Hgb (11.4-16.0) gm/dL Hct (34.0-46.0) % Potassium 3.3 L (3.5-5.1) mmol/L Chloride 108 H (98-107) mmol/L Glucose 217 H (74-99) mg/dL POC Glucose (mg/dL) 33 L (75-99) mg/dL AST 13 L (14-36) U/L Total Protein 5.8 L (6.3-8.2) g/dL 03/28/17 03/29/17 03/29/17 Range/Units 23:47 00:20 00:45 RBC (3.80-5.40) m/uL Hgb (11.4-16.0) gm/dL Hct (34.0-46.0) % Potassium (3.5-5.1) mmol/L Chloride (98-107) mmol/L Glucose (74-99) mg/dL POC Glucose (mg/dL) 122 H 45 L 128 H (75-99) mg/dL AST (14-36) U/L Total Protein (6.3-8.2) g/dL 03/29/17 03/29/17 03/29/17 Range/Units 01:29 01:57 02:22 RBC (3.80-5.40) m/uL Hgb (11.4-16.0) gm/dL Hct (34.0-46.0) % Potassium (3.5-5.1) mmol/L Chloride (98-107) mmol/L Glucose (74-99) mg/dL POC Glucose (mg/dL) 61 L 55 L 119 H (75-99) mg/dL AST (14-36) U/L Total Protein (6.3-8.2) g/dL 03/29/17 03/29/17 03/29/17 Range/Units 03:36 04:33 05:25 RBC (3.80-5.40) m/uL Hgb (11.4-16.0) gm/dL Hct (34.0-46.0) % Potassium (3.5-5.1) mmol/L Chloride (98-107) mmol/L Glucose (74-99) mg/dL POC Glucose (mg/dL) 105 H 132 H 112 H (75-99) mg/dL AST (14-36) U/L Total Protein (6.3-8.2) g/dL 03/29/17 03/29/17 Range/Units 06:45 06:59 RBC 3.37 L (3.80-5.40) m/uL Hgb 11.1 L (11.4-16.0) gm/dL Hct 32.6 L (34.0-46.0) % Potassium (3.5-5.1) mmol/L Chloride (98-107) mmol/L Glucose (74-99) mg/dL POC Glucose (mg/dL) 105 H (75-99) mg/dL AST (14-36) U/L Total Protein (6.3-8.2) g/dL Assessment and Plan Assessment: #1 intractable nausea vomiting abdominal pain and diarrhea. Possible gastritis / gastroenteritis. Diarrhea resolved now. #2 history of lap band surgery #3 hypoglycemia due to poor oral intake. Improved now with D5 water infusion #4 history of bulimia #5 seizure disorder #6 hypothyroidism #7 the current episodes of nausea vomiting or abdominal pain Plan: Patient be continued on IV Protonix and IV hydration. Currently on D5 water. Patient will be started on oral diet once nausea and vomiting improves and will change IV fluids to normal saline at the time. Will continue to replace electrolytes and follow closely. We will continue the symptomatic management and continue the home medications. Further recommendations based on the clinical course.
--- NOTE | 2017-03-29 22:58 | P.DS ---
Providers Date of admission: 03/29/17 02:06 Expected date of discharge: 03/29/17 Attending physician: Kelsey Melvin Primary care physician: Slade Gonzalez Hospital Course: Discharge diagnosis #1 intractable nausea vomiting abdominal pain and diarrhea. Possible gastritis / gastroenteritis. Diarrhea resolved now. #2 history of lap band surgery #3 hypoglycemia due to poor oral intake. Improved now with D5 water infusion #4 history of bulimia #5 seizure disorder #6 hypothyroidism #7 the current episodes of nausea vomiting or abdominal pain #8 asthma stable. Hospital course Patient is a 36 year-old female with a past medical history of asthma, hypothyroidism, seizures, hypoglycemia and also history of bulimia came to the hospital the complains of nausea vomiting or abdominal pain as well as diarrhea 1 day duration prior to admission. Patient has not been tolerating any oral diet. Her blood sugar went down to 30 and she came to the hospital. Patient does have history of hypoglycemia and is on follow with core analyst. Patient was advised to eat regular meals. Otherwise patient denied any complaints of fever or chills. No complaints of chest pain or short of breath. Patient does have history of lap band surgery and is on follow with Dr. Irene as outpatient. Patient denied any hematemesis or melena. No numbness or tingling. Denied any hematuria or dysuria. Patient was continued on IV Protonix and IV hydration. Currently on D5 water. Patient was started on oral diet once nausea and vomiting improved and changed IV fluids to normal saline at the time. Her sugar is around 100 now, replaced electrolytes and follow closely. symptomatic management and continue the home medications. Patient is currently tolerating diet. Patient is stable to be discharged home. Patient was cultured extensively her medication complaints and follow-up. Discharge physical examination was done Patient Condition at Discharge: Serious Plan - Discharge Summary New Discharge Prescriptions: Continue Montelukast [Singulair] 10 mg PO HS Levalbuterol Nebulized [Xopenex Nebulized] 0.63 mg INHALATION RT-QID PRN PRN Reason: Shortness Of Breath Levalbuterol Hfa Inhaler [Xopenex Hfa Inhaler] 2 puff INHALATION RT-Q6H PRN PRN Reason: Shortness Of Breath ARIPiprazole [Abilify] 5 mg PO QAM Medroxyprogesterone Acetate [Depo-Provera] 150 mg IM Q90D Desvenlafaxine Succinate [Pristiq] 100 mg PO QAM traZODone HCL [Desyrel] 100 mg PO HS PRN PRN Reason: Insomnia Omalizumab [Xolair] 300 mg SQ Q30D Flunisolide [Aerospan] 2 puff INHALATION RT-BID Bisacodyl 5 mg PO DAILY PRN PRN Reason: Constipation Levothyroxine Sodium [Synthroid] 137 mcg PO DAILY Famotidine [Pepcid] 20 mg PO BID HYDROcodone/APAP 7.5-325MG [[place] 7.5-325] 1 tab PO Q6HR PRN #120 tab PRN Reason: Pain Ondansetron Odt [Zofran ODT] 4 mg PO Q8HR PRN #12 tab PRN Reason: Nausea Metoprolol Tartrate [Lopressor] 12.5 mg PO BID #60 tab Pregabalin [Lyrica] 75 mg PO TID Discontinued Tamsulosin [Flomax] 0.4 mg PO DAILY #10 cap Ibuprofen [Motrin] 600 mg PO Q6HR PRN #30 day PRN Reason: Pain Discharge Medication List Levalbuterol Nebulized [Xopenex Nebulized] 0.63 mg INHALATION RT-QID PRN [History] Montelukast [Singulair] 10 mg PO HS 09/30/13 [History] Levalbuterol Hfa Inhaler [Xopenex Hfa Inhaler] 2 puff INHALATION RT-Q6H PRN [History] ARIPiprazole [Abilify] 5 mg PO QAM 05/04/14 [History] Desvenlafaxine Succinate [Pristiq] 100 mg PO QAM 11/07/15 [History] Medroxyprogesterone Acetate [Depo-Provera] 150 mg IM Q90D 11/07/15 [History] traZODone HCL [Desyrel] 100 mg PO HS PRN 11/21/15 [History] Bisacodyl 5 mg PO DAILY PRN 06/28/16 [History] Flunisolide [Aerospan] 2 puff INHALATION RT-BID 06/28/16 [History] Omalizumab [Xolair] 300 mg SQ Q30D 06/28/16 [History] Levothyroxine Sodium [Synthroid] 137 mcg PO DAILY 07/18/16 [History] Famotidine [Pepcid] 20 mg PO BID 10/02/16 [History] HYDROcodone/APAP 7.5-325MG [[place] 7.5-325] 1 tab PO Q6HR PRN #120 tab 10/23/16 [ Rx] Ondansetron Odt [Zofran ODT] 4 mg PO Q8HR PRN #12 tab 01/31/17 [Rx] Metoprolol Tartrate [Lopressor] 12.5 mg PO BID #60 tab 02/22/17 [Rx] Pregabalin [Lyrica] 75 mg PO TID 03/06/17 [History] Follow up Appointment(s)/Referral(s): Slade Gonzalez MD [Primary Care Provider] - 1-2 days Patient Instructions/Handouts: Non-diabetic Hypoglycemia (DC), Acute Nausea and Vomiting (DC), Acute Abdominal Pain (DC) Discharge Disposition: HOME SELF-CARE
== END 2017-03-29 17:59 | disposition home or self-care (01) ==
LOC: EC 22:53 → 5MS5E 03-29 02:06
PROVIDERS: ADMIT Hospitalist; ATTEND Hospitalist
DX: R10.13 Epigastric pain (principal); R11.2 Nausea with vomiting, unspecified; R19.7 Diarrhea, unspecified; E16.2 Hypoglycemia, unspecified; E03.9 Hypothyroidism, unspecified; J45.909 Unspecified asthma, uncomplicated; G40.909 Epilepsy, unspecified, not intractable, without status epilepticus; F41.9 Anxiety disorder, unspecified; F32.9 Major depressive disorder, single episode, unspecified; Z79.51 Long term (current) use of inhaled steroids; Z79.899 Other long term (current) drug therapy; Z98.84 Bariatric surgery status; Z86.59 Personal history of other mental and behavioral disorders; Z88.8 Allergy status to other drugs, medicaments and biological substances; Z86.14 Personal history of Methicillin resistant Staphylococcus aureus infection; Z87.11 Personal history of peptic ulcer disease
CPT/HCPCS: 99284 ×2; 96375 ×6; 96361 ×6; 96365 ×2; 96376 ×3; 96366; 36415 ×2; 80053; 82150; 83690; 85025 ×2; 87324; G0378; J2270; J2405; J1170

== ENCOUNTER 2017-04-22 17:24 | Emergency (ER) | payer OTHER ==
[2017-04-22] MEDS ORDERED: KETOROLAC 60 MG/2 ML VIAL IM STA (19:59)
[2017-04-22] MEDS ORDERED: IPRATROPIUM-ALBUTEROL 3 ML NEB INHALATION STA (19:59)
[2017-04-22] MEDS ORDERED: methylPREDNISolone SOD SUCCI 125 MG/2 ML VIAL IM STA (19:59)
--- NOTE | 2017-04-22 20:10 | ED ---
General Adult HPI - General Stated complaint: chest pain Time Seen by Provider: 04/22/17 19:34 Source: patient, RN notes reviewed Mode of arrival: wheelchair Limitations: no limitations - History of Present Illness Initial comments: 36-year-old female presents to the emergency department with a chief complaint of left upper chest discomfort. He is in a long history of asthma and states that she has had a history of pleurisy in the past and this feels much like her gets worse with a deep breath worse to coughing for the breathing in general. She states there is no long trips or travel recently. No history of blood clots states that she chronically suffers from tachycardia. She states it feels much like when she had pleurisy in the back. Liver asthma she states mildly flat affect but the breathing treatment today for home seem to be helping. Patient states her pain is mild. His of the left upper side of the chest. No other complaints at this time. Patient denies any recent fever, chills, back pain, abdominal pain, nausea vomiting, numbness or tingling, dysuria or hematuria, constipation or diarrhea, headaches or visual changes, or any other current symptoms. - Related Data Home Medications Medication Instructions Recorded Confirmed Levalbuterol Nebulized [Xopenex 0.63 mg INHALATION RT-QID PRN 09/30/13 04/22/17 Nebulized] Montelukast [Singulair] 10 mg PO HS 09/30/13 04/22/17 Levalbuterol Hfa Inhaler [Xopenex 2 puff INHALATION RT-Q6H PRN 01/07/14 04/22/17 Hfa Inhaler] ARIPiprazole [Abilify] 5 mg PO QAM 05/04/14 04/22/17 Desvenlafaxine Succinate [Pristiq] 100 mg PO QAM 11/07/15 04/22/17 Medroxyprogesterone Acetate 150 mg IM Q90D 11/07/15 04/22/17 [Depo-Provera] traZODone HCL [Desyrel] 100 mg PO HS PRN 11/21/15 04/22/17 Bisacodyl 5 mg PO DAILY PRN 06/28/16 04/22/17 Flunisolide [Aerospan] 2 puff INHALATION RT-BID 06/28/16 04/22/17 Omalizumab [Xolair] 300 mg SQ Q30D 06/28/16 04/22/17 Levothyroxine Sodium [Synthroid] 137 mcg PO DAILY 07/18/16 04/22/17 Famotidine [Pepcid] 20 mg PO BID 10/02/16 04/22/17 Pregabalin [Lyrica] 75 mg PO TID 03/06/17 04/22/17 Previous Rx's Medication Instructions Recorded HYDROcodone/APAP 7.5-325MG [Costilla 1 tab PO Q6HR PRN #120 tab 10/23/16 7.5-325] Ondansetron Odt [Zofran ODT] 4 mg PO Q8HR PRN #12 tab 01/31/17 Metoprolol Tartrate [Lopressor] 12.5 mg PO BID #60 tab 02/22/17 predniSONE 50 mg PO DAILY #5 tab 04/22/17 Allergies Allergy/AdvReac Type Severity Reaction Status Date / Time albuterol AdvReac Rapid Verified 04/22/17 19:53 Heart Rate Review of Systems ROS Statement: Those systems with pertinent positive or pertinent negative responses have been documented in the HPI. ROS Other: All systems not noted in ROS Statement are negative. Past Medical History Past Medical History: Asthma, Seizure Disorder, Thyroid Disorder Additional Past Medical History / Comment(s): TACHYCARDIA, peptic ulcers, anemia."HAS BEEN ON VENTILATOR IN PAST D/T SEVERE ASTHMA ATTACK, BULEMIA-STATES GETTING BETTER, CONSTIPATION. CHRONIC BACK PAIN ,SEIZURES HAS SINCE BEEN TAKEN OFF MEDS, elevated blood sugar with steroid use and hypoglycemia when off steroids , "superficial blood clots" bilateral arms. History of Any Multi-Drug Resistant Organisms: C-DIFF, MRSA Date of last positivie culture/infection: 08/25/14 MDRO Source:: Groin Past Surgical History: Bariatric Surgery, Cholecystectomy, Orthopedic Surgery, Tonsillectomy Additional Past Surgical History / Comment(s): tilt table test, lap band 2007; NASAL FX REPAIR , ORIF LT ELBOW X2, PAIN PROCEDURES Past Anesthesia/Blood Transfusion Reactions: Postoperative Nausea & Vomiting ( PONV) Past Psychological History: Anxiety, Depression Smoking Status: Never smoker Past Alcohol Use History: None Reported Past Drug Use History: None Reported - Past Family History Mother Family Medical History: Pneumonia Additional Family Medical History / Comment(s): Mother of pneumonia. Patient's son of brain cancer, last mother and father both liver cancer Son(s) Family Medical History: Cancer Additional Family Medical History / Comment(s): Son of brain cancer. Father Family Medical History: Cancer, Liver Disease Additional Family Medical History / Comment(s): Father has liver cancer with surgery. He has hepatitis. General Exam Limitations: no limitations General appearance: alert, in no apparent distress Head exam: Present: atraumatic, normocephalic, normal inspection Eye exam: Present: normal appearance, PERRL, EOMI. Absent: scleral icterus, conjunctival injection, periorbital swelling ENT exam: Present: normal exam, mucous membranes moist Neck exam: Present: normal inspection. Absent: tenderness, meningismus, lymphadenopathy Respiratory exam: Present: normal lung sounds bilaterally, wheezes (Mild expiratory). Absent: respiratory distress, rales, rhonchi, stridor Cardiovascular Exam: Present: regular rate, normal rhythm, normal heart sounds. Absent: systolic murmur, diastolic murmur, rubs, gallop, clicks Back exam: Present: normal inspection Neurological exam: Present: alert, oriented X3 Psychiatric exam: Present: normal affect, normal mood Skin exam: Present: warm, dry, intact, normal color. Absent: rash Course Vital Signs 04/22/17 04/22/17 04/22/17 18:29 20:13 20:23 Temperature 97.5 F L Pulse Rate 117 H 92 Respiratory 20 20 Rate Blood Pressure 156/86 O2 Sat by Pulse 100 Oximetry 04/22/17 20:38 Temperature Pulse Rate 94 Respiratory Rate Blood Pressure O2 Sat by Pulse Oximetry EKG Findings - EKG Comments: EKG Findings:: normal sinus rhythm 87 bpm, normal axis, no atopy, no S-T depressions or elevations, Medical Decision Making - Medical Decision Making 36 yo female presents with what appears to be pleurisy. She has a history of this states it feels much like this. EKG showed a heart rate of 87. We will start her on steroids for home. We discussed anti-inflammatories. We discussed return parameters and follow-up and all the patient's questions. She stated that she understood and she is this plan. All questions have been answered. She'll be discharged - Radiology Data Radiology results: report reviewed, image reviewed Disposition Clinical Impression: Asthma, Pleuritic chest pain Disposition: HOME SELF-CARE Condition: Stable Instructions: Pleurisy (ED) Additional Instructions: Please use medication as discussed. Please follow up with family doctor if symptoms have not improved over the next two days. Please return to the emergency room if your symptoms increase or worsen or for any other concerns. Prescriptions: predniSONE 50 mg PO DAILY #5 tab Referrals: Slade Gonzalez MD [Primary Care Provider] - 1-2 days Time of Disposition: 20:41
--- NOTE | 2017-04-22 20:17 | XR ---
EXAMINATION TYPE: XR chest 2V DATE OF EXAM: 04/22/2017 COMPARISON: 03/06/2017 HISTORY: Asthma TECHNIQUE: Frontal and lateral views of the chest are obtained. FINDINGS: Heart and mediastinum are normal. Lungs are clear. Diaphragm is normal. Bony thorax is int act. IMPRESSION: Normal chest. No change.
[2017-04-22 21:03] VITALS: BP 116/59; PULSE 92; RESP 18; TEMP 98.1
== END 2017-04-22 21:02 | disposition home or self-care (01) ==
LOC: EC 17:24
DX: J45.909 Unspecified asthma, uncomplicated (principal); R07.89 Other chest pain; R00.0 Tachycardia, unspecified; G40.909 Epilepsy, unspecified, not intractable, without status epilepticus; E07.9 Disorder of thyroid, unspecified; F32.9 Major depressive disorder, single episode, unspecified; Z79.3 Long term (current) use of hormonal contraceptives; Z79.51 Long term (current) use of inhaled steroids; Z79.899 Other long term (current) drug therapy; Z88.8 Allergy status to other drugs, medicaments and biological substances
CPT/HCPCS: 94640; 93005; 71020; 99285; 96372 ×2; J2930; J1885

== ENCOUNTER → 2017-04-23 | Outpatient (CLI) | payer OTHER ==
[2017-04-23 12:17] VITALS: BP 130/80; PULSE 82; RESP 18; TEMP 98.9
--- NOTE | 2017-04-23 12:49 | P.PN ---
Progress Note - Text Progress Note Date: 04/23/17 Patient returns for followup for chronic mid-back pain with radiation to chest. Patient is complaining of increased pain recently that has worsened with weather change, and her opioids have been escalated significantly over the course of the last 6-8 months. She is requesting to see a spine surgeon about her T-spine as she "does not want to take more pain medications for the rest of [her] life". Patient continues on [place] and Lyrica medications for pain with some relief. Patient denies adverse drug effects from medications. Today, pt denies new-onset weakness, bowel/bladder incontinence, or any other signs or symptoms of cauda equina syndrome. There are no signs of acute intoxication, and no indications of medication diversion or overuse. In addition to above, 13-point review of systems is also negative for chest pain , shortness of breath, changes in vision, changes in hearing, new onset weakness , abdominal pain, diarrhea, extreme fatigue, malaise, fever, skin changes, homicidal or suicidal ideation, or bowel or bladder incontinence. Vital Signs: Reviewed in EMR Gen: WDWN, AAOx3, NAD HEENT: NCAT, EOMI, hearing grossly normal Pulm: resp unlabored Abd: soft, NT, ND Neck: supple, trachea midline ROM in flexion thoracic spine: reduced ROM in extension thoracic spine: reduced Thoracic paravertebral tenderness: + Thoracic Facet tenderness: neg Spurling's: neg Neuro: CN II-XII grossly intact, muscle strength lower extremities PRESERVED Imaging: Reviewed in EMR Assessment: 1. thoracic disc herniations 2. thoracic radiculitis 3. chronic pain syndrome Plan: 1. Explanation: Opioid and psychological risk scores were reviewed. Diagnoses , prognoses, and multiple treatment options including but not limited to physical therapy, interventional therapies, adjuvant medical therapies, narcotic medication therapies, and surgery were discussed with the patient and all questions were answered to the patient's satisfaction. 2. Opioid agreement: Patient has previously signed narcotic agreement, and was orally counseled to not overuse, abuse, divert, or cell medications, and to take them as prescribed by only 1 healthcare provider. The patient was also counseled to store opioid medications in a safe and preferably locked location. Patient was also counseled against driving or operating heavy equipment while using narcotic medications and also to not use alcohol or any illicit or recreational drugs. The patient verbalized understanding that lack of compliance with any of the above and likely result in failure to renew narcotic prescriptions, possible discharge from the clinic, and possible legal ramifications thereafter if indicated. 3. Counseling: The patient was counseled extensively on BODY MASS INDEX, EXERCISE. Specifically, the patient was instructed regarding the importance of weight control, and exercise in the context of both chronic pain and overall health. 4. Procedures: thoracic OMAIRA T10-T11 5. Consultations: Dr. Solo, possible surgical intervention 6. Investigations: None 7. Medications: [place] 7.5/325 #120, Lyrica 75 mg #90, both with one refill 8. Disposition: f/u for procedure as scheduled PQRS measures: 1-Patient's medications are documented in the chart. 2-Tobacco use is negative 3-Patient has had a pneumococcal vaccine. 4-Advanced care planning discussed, patient unable to give. 5-Opioid contract signed with the patient. 6-Pain positive, follow-up visit or procedure scheduled 7-Patient's blood pressure measured and documented, and patient will follow up with the primary care due to hypertension. 8-Patient's weight was measured, and body mass index ABOVE the normal limits, and counseling was done. Patient instructed to follow up with PCP. 9-Patient WAS NOT identified as an unhealthy alcohol user.
== END | disposition home or self-care (01) ==
LOC: PNWHC3 11:47
PROVIDERS: ATTEND Anesthesiology
DX: M51.14 Intervertebral disc disorders with radiculopathy, thoracic region (principal); G89.4 Chronic pain syndrome; Z79.891 Long term (current) use of opiate analgesic; Z79.899 Other long term (current) drug therapy
CPT/HCPCS: 80307; 80356; 99211

== ENCOUNTER 2017-05-21 13:16 | Emergency (ER) | payer OTHER ==
[2017-05-21 13:36] VITALS: PULSE 104
[2017-05-21 14:18] LABS: Glucose,Whole Blood 41 mg/dL (75-99)
[2017-05-21 14:50] LABS: Glucose,Whole Blood 116 mg/dL (75-99)
--- NOTE | 2017-05-21 14:50 | ED ---
General Adult HPI - General Chief complaint: Extremity Problem,Nontraumatic Stated complaint: leg pain/Cough Time Seen by Provider: 05/21/17 14:18 Source: patient, RN notes reviewed Mode of arrival: wheelchair Limitations: no limitations - History of Present Illness Initial comments: patient is a pleasant 36-year-old female presenting to the emergency department for right calf swelling. Patient did break her right fifth metatarsal around a week ago. Patient has been in a walking boot. Patient did follow-up with orthopedics today and was advised to come to the emergency department for potential blood clot. Patient states there is also some mild discomfort behind her right knee. Symptoms started yesterday. Patient has had cough and some chest discomfort with cough only for the past couple of days. Patient has had some mild rhinorrhea. No fevers. No dyspnea. - Related Data Home Medications Medication Instructions Recorded Confirmed Levalbuterol Nebulized [Xopenex 0.63 mg INHALATION RT-QID PRN 09/30/13 05/21/17 Nebulized] Montelukast [Singulair] 10 mg PO HS 09/30/13 05/21/17 Levalbuterol Hfa Inhaler [Xopenex 2 puff INHALATION RT-Q6H PRN 01/07/14 05/21/17 Hfa Inhaler] ARIPiprazole [Abilify] 5 mg PO QAM 05/04/14 05/21/17 Desvenlafaxine Succinate [Pristiq] 100 mg PO QAM 11/07/15 05/21/17 Medroxyprogesterone Acetate 150 mg IM Q90D 11/07/15 05/21/17 [Depo-Provera] traZODone HCL [Desyrel] 100 mg PO HS 11/21/15 05/21/17 Bisacodyl 5 mg PO DAILY PRN 06/28/16 05/21/17 Flunisolide [Aerospan] 2 puff INHALATION RT-BID 06/28/16 05/21/17 Omalizumab [Xolair] 300 mg SQ Q30D 06/28/16 05/21/17 Levothyroxine Sodium [Synthroid] 137 mcg PO DAILY 07/18/16 05/21/17 Famotidine [Pepcid] 20 mg PO BID 10/02/16 05/21/17 Previous Rx's Medication Instructions Recorded Ondansetron Odt [Zofran ODT] 4 mg PO Q8HR PRN #12 tab 01/31/17 Metoprolol Tartrate [Lopressor] 12.5 mg PO BID #60 tab 02/22/17 HYDROcodone/APAP 7.5-325MG [Bazine 1 tab PO Q6HR PRN #120 tab 04/23/17 7.5-325] Pregabalin [Lyrica] 75 mg PO TID #90 cap 04/23/17 Allergies Allergy/AdvReac Type Severity Reaction Status Date / Time albuterol AdvReac Rapid Verified 05/21/17 14:38 Heart Rate Review of Systems ROS Statement: Those systems with pertinent positive or pertinent negative responses have been documented in the HPI. ROS Other: All systems not noted in ROS Statement are negative. Constitutional: Denies: fever Eyes: Denies: eye pain ENT: Denies: ear pain Respiratory: Reports: cough Cardiovascular: Reports: chest pain (with cough) Endocrine: Denies: fatigue Gastrointestinal: Denies: abdominal pain Genitourinary: Denies: dysuria Musculoskeletal: Denies: back pain Skin: Denies: rash Neurological: Denies: weakness Past Medical History Past Medical History: Asthma, Diabetes Mellitus, Seizure Disorder, Thyroid Disorder Additional Past Medical History / Comment(s): TACHYCARDIA, peptic ulcers, anemia."HAS BEEN ON VENTILATOR IN PAST D/T SEVERE ASTHMA ATTACK, BULEMIA-STATES GETTING BETTER, CONSTIPATION. CHRONIC BACK PAIN ,SEIZURES HAS SINCE BEEN TAKEN OFF MEDS, elevated blood sugar with steroid use and hypoglycemia when off steroids , "superficial blood clots" bilateral arms. History of Any Multi-Drug Resistant Organisms: C-DIFF, MRSA Date of last positivie culture/infection: 08/25/14 MDRO Source:: Groin Past Surgical History: Bariatric Surgery, Cholecystectomy, Orthopedic Surgery, Tonsillectomy Additional Past Surgical History / Comment(s): tilt table test, lap band 2007; NASAL FX REPAIR , ORIF LT ELBOW X2, PAIN PROCEDURES Past Anesthesia/Blood Transfusion Reactions: Postoperative Nausea & Vomiting ( PONV) Past Psychological History: Anxiety, Depression Smoking Status: Never smoker Past Alcohol Use History: None Reported Past Drug Use History: None Reported - Past Family History Mother Family Medical History: Pneumonia Additional Family Medical History / Comment(s): Mother of pneumonia. Patient's son of brain cancer, last mother and father both liver cancer Son(s) Family Medical History: Cancer Additional Family Medical History / Comment(s): Son of brain cancer. Father Family Medical History: Cancer, Liver Disease Additional Family Medical History / Comment(s): Father has liver cancer with surgery. He has hepatitis. General Exam Limitations: no limitations General appearance: alert, in no apparent distress Head exam: Present: atraumatic Eye exam: Present: normal appearance, PERRL ENT exam: Present: normal oropharynx Neck exam: Present: normal inspection Respiratory exam: Present: normal lung sounds bilaterally. Absent: chest wall tenderness Cardiovascular Exam: Present: regular rate, normal rhythm GI/Abdominal exam: Present: soft. Absent: distended, tenderness Extremities exam: Present: other (right lower extremity with walking boot on. There is apparent mild swelling of the right calf and discomfort in the right popliteal fossa.) Neurological exam: Present: alert Psychiatric exam: Present: normal affect, normal mood Skin exam: Present: normal color Course Vital Signs 05/21/17 13:34 Temperature 98.1 F Pulse Rate 104 H Respiratory 20 Rate Blood Pressure 118/76 O2 Sat by Pulse 99 Oximetry EKG Findings - EKG Comments: EKG Findings:: sinus tachycardia 102. RI 136. QRS 82. QT 326. QTc 424. Normal axis. Normal QRS. Nonspecific T waves. Medical Decision Making - Medical Decision Making Patient reevaluated and resting comfortably in bed. Patient complains of some nausea and is receptive to medication. Patient is updated on results and need for follow-up. Patient is updated on need for repeat ultrasound if symptoms continue or worsen. Patient presents with swelling likely related to the recent fracture or use of walking boot. Patient also likely has viral upper respiratory infection. Negative d-dimer. - Lab Data Result diagrams: 05/21/17 14:50 05/21/17 14:50 Lab Results 05/21/17 05/21/17 05/21/17 Range/Units 14:15 14:49 14:50 WBC (3.8-10.6) k/uL RBC (3.80-5.40) m/uL Hgb (11.4-16.0) gm/dL Hct (34.0-46.0) % MCV (80.0-100.0) fL MCH (25.0-35.0) pg MCHC (31.0-37.0) g/dL RDW (11.5-15.5) % Plt Count (150-450) k/uL Neutrophils % % Lymphocytes % % Monocytes % % Eosinophils % % Basophils % % Neutrophils # (1.3-7.7) k/uL Lymphocytes # (1.0-4.8) k/uL Monocytes # (0-1.0) k/uL Eosinophils # (0-0.7) k/uL Basophils # (0-0.2) k/uL PT (9.0-12.0) sec INR (<1.2) APTT (22.0-30.0) sec D-Dimer (<0.60) mg/L FEU Sodium (137-145) mmol/L Potassium (3.5-5.1) mmol/L Chloride (98-107) mmol/L Carbon Dioxide (22-30) mmol/L Anion Gap mmol/L BUN (7-17) mg/dL Creatinine (0.52-1.04) mg/dL Est GFR (MDRD) Af Amer (>60 ml/min/1.73 sqM) Est GFR (MDRD) Non-Af (>60 ml/min/1.73 sqM) Glucose (74-99) mg/dL POC Glucose (mg/dL) 41 L 116 H (75-99) mg/dL POC Glu Teletype Mechanic ID Suzanne Beatris Suzanne Beatris Calcium (8.4-10.2) mg/dL Magnesium (1.6-2.3) mg/dL Total Bilirubin (0.2-1.3) mg/dL AST (14-36) U/L ALT (9-52) U/L Alkaline Phosphatase (38-126) U/L Total Creatine Kinase 84 (30-135) U/L CK-MB (CK-2) 0.9 (0.0-2.4) ng/mL CK-MB (CK-2) Rel Index 1.1 Troponin I <0.012 (0.000-0.034) ng/mL Total Protein (6.3-8.2) g/dL Albumin (3.5-5.0) g/dL 12/26/17 12/26/17 12/26/17 Range/Units 14:50 14:50 14:50 WBC 5.2 (3.8-10.6) k/uL RBC 4.21 (3.80-5.40) m/uL Hgb 13.8 (11.4-16.0) gm/dL Hct 39.8 (34.0-46.0) % MCV 94.7 (80.0-100.0) fL MCH 32.8 (25.0-35.0) pg MCHC 34.6 (31.0-37.0) g/dL RDW 12.1 (11.5-15.5) % Plt Count 225 (150-450) k/uL Neutrophils % 78 % Lymphocytes % 14 % Monocytes % 5 % Eosinophils % 1 % Basophils % 1 % Neutrophils # 4.1 (1.3-7.7) k/uL Lymphocytes # 0.7 L (1.0-4.8) k/uL Monocytes # 0.3 (0-1.0) k/uL Eosinophils # 0.1 (0-0.7) k/uL Basophils # 0.0 (0-0.2) k/uL PT 10.2 (9.0-12.0) sec INR 1.0 (<1.2) APTT 22.2 (22.0-30.0) sec D-Dimer 0.35 (<0.60) mg/L FEU Sodium 142 (137-145) mmol/L Potassium 3.7 (3.5-5.1) mmol/L Chloride 106 (98-107) mmol/L Carbon Dioxide 26 (22-30) mmol/L Anion Gap 10 mmol/L BUN 17 (7-17) mg/dL Creatinine 1.04 (0.52-1.04) mg/dL Est GFR (MDRD) Af Amer >60 (>60 ml/min/1.73 sqM) Est GFR (MDRD) Non-Af 60 (>60 ml/min/1.73 sqM) Glucose 119 H (74-99) mg/dL POC Glucose (mg/dL) (75-99) mg/dL POC Glu Teletype Mechanic ID Calcium 9.7 (8.4-10.2) mg/dL Magnesium 2.1 (1.6-2.3) mg/dL Total Bilirubin 0.2 (0.2-1.3) mg/dL AST 19 (14-36) U/L ALT 29 (9-52) U/L Alkaline Phosphatase 54 (38-126) U/L Total Creatine Kinase (30-135) U/L CK-MB (CK-2) (0.0-2.4) ng/mL CK-MB (CK-2) Rel Index Troponin I (0.000-0.034) ng/mL Total Protein 6.9 (6.3-8.2) g/dL Albumin 4.4 (3.5-5.0) g/dL - Radiology Data Radiology results: report reviewed (ultrasound negative for DVT), image reviewed (chest x-ray shows no acute process) Disposition Clinical Impression: Leg swelling, Upper respiratory infection Disposition: HOME SELF-CARE Condition: Stable Instructions: Upper Respiratory Infection (ED), Leg Edema (ED), Foot Fracture in Adults (ED) Additional Instructions: please follow-up with your primary care physician and orthopedic surgeon in the next couple days for recheck. Return for chest pain, difficulty breathing, increased leg swelling or pain, worsening symptoms or other concerns. Referrals: Slade Gonzalez MD [Primary Care Provider] - 1-2 days Time of Disposition: 16:02
[2017-05-21 15:06] LABS: Basophils % (A) 1 %; CHCM 36.1; Eosinophils # (A) 0.1 k/uL (0-0.7); Eosinophils % (A) 1 %; HCT 39.8 % (34.0-46.0); HDW 2.89; HGB 13.8 gm/dL (11.4-16.0); Luc # (Auto) 0.07; Luc % (Auto) 1; Lymphocytes # (A) 0.7 k/uL (1.0-4.8); Lymphocytes % (A) 14 %; MCH 32.8 pg (25.0-35.0); MCHC 34.6 g/dL (31.0-37.0); MCV 94.7 fL (80.0-100.0); Mean Platelet Volume 7.1; Monocytes # (A) 0.3 k/uL (0-1.0); Monocytes % (A) 5 %; Neutrophils # (A) 4.1 k/uL (1.3-7.7); Neutrophils % (A) 78 %; RBC 4.21 m/uL (3.80-5.40); RDW 12.1 % (11.5-15.5); WBC 5.2 k/uL (3.8-10.6); WBC (Perox) 5.03
[2017-05-21 15:18] LABS: ALT 29 U/L (9-52); AST 19 U/L (14-36); Alkaline Phosphatase 54 U/L (38-126); Anion Gap 10 mmol/L; Blood Urea Nitrogen 17 mg/dL (7-17); Calcium 9.7 mg/dL (8.4-10.2); Carbon Dioxide 26 mmol/L (22-30); Chloride 106 mmol/L (98-107); Glucose 119 mg/dL (74-99); Magnesium 2.1 mg/dL (1.6-2.3); Non-African American GFR(MDRD) 60 (>60 ml/min/1.73 sqM); Potassium 3.7 mmol/L (3.5-5.1); Sodium 142 mmol/L (137-145); Total Bilirubin 0.2 mg/dL (0.2-1.3); Total Protein 6.9 g/dL (6.3-8.2)
--- NOTE | 2017-05-21 15:18 | XR ---
EXAMINATION TYPE: XR chest 2V DATE OF EXAM: 05/21/2017 COMPARISON: Prior chest x-ray 05/10/2017 HISTORY: Chest pain, cough, right leg swelling TECHNIQUE: Frontal and lateral views of the chest are obtained. FINDINGS: There is no focal air space opacity, pleural effusion, or pneumothorax seen. The cardiac silhouette size is within normal limits. Lap band is in place. The osseous structures are intact. IMPRESSION: No acute cardiopulmonary process.
[2017-05-21 15:21] LABS: Prothrombin Time 10.2 sec (9.0-12.0)
[2017-05-21 15:24] LABS: Creatine Kinase 84 U/L (30-135)
[2017-05-21 15:28] LABS: Partial Thromboplastin Time 22.2 sec (22.0-30.0)
[2017-05-21 15:37] LABS: Creatine Kinase MB 0.9 ng/mL (0.0-2.4); Troponin I <0.012 ng/mL (0.000-0.034)
--- NOTE | 2017-05-21 15:42 | US ---
EXAMINATION TYPE: US venous doppler duplex LE RT DATE OF EXAM: 05/21/2017 3:29 PM COMPARISON: NONE CLINICAL HISTORY: Pain. SIDE PERFORMED: Right TECHNIQUE: The lower extremity deep venous system is examined utilizing real time linear array sonog bob with graded compression, doppler sonography and color-flow sonography. VESSELS IMAGED: External Iliac Vein (EIV) Common Femoral Vein Deep Femoral Vein Greater Saphenous Vein * Femoral Vein Popliteal Vein Small Saphenous Vein * Proximal Calf Veins (* superficial vessels) Right Leg: Negative for DVT Grayscale, color Doppler, spectral Doppler imaging performed of the deep veins of the right lower ext remity. IMPRESSION: Grayscale, color doppler, spectral doppler imaging performed of the deep veins of the lo wer extremities. There is normal flow, compressibility, vascular waveforms. No evident deep venous thrombosis at or above the right knee.
[2017-05-21] MEDS ORDERED: ONDANSETRON 4 MG/2 ML VIAL IVP STA (16:00)
[2017-05-21 16:19] LABS: Glucose,Whole Blood 84 mg/dL (75-99)
[2017-05-21 16:21] VITALS: BP 113/65; RESP 16; TEMP 97.6
== END 2017-05-21 16:20 | disposition home or self-care (01) ==
LOC: EC 13:16
DX: M79.89 Other specified soft tissue disorders (principal); J06.9 Acute upper respiratory infection, unspecified; R07.89 Other chest pain; J45.901 Unspecified asthma with (acute) exacerbation; E11.9 Type 2 diabetes mellitus without complications; G40.909 Epilepsy, unspecified, not intractable, without status epilepticus; E07.9 Disorder of thyroid, unspecified; F32.9 Major depressive disorder, single episode, unspecified; F41.9 Anxiety disorder, unspecified; Z86.14 Personal history of Methicillin resistant Staphylococcus aureus infection; Z79.51 Long term (current) use of inhaled steroids; Z79.899 Other long term (current) drug therapy; Z88.8 Allergy status to other drugs, medicaments and biological substances
CPT/HCPCS: 36415; 93005; 85379; 80053; 82550; 82553; 83735; 84484; 85025; 85610; 85730; 71020; 93971; 99284; 96374; J2405

== ENCOUNTER 2017-05-22 14:53 | Observation (INO) | payer OTHER ==
[2017-05-22 15:07] LABS: Glucose,Whole Blood 66 mg/dL (75-99)
[2017-05-22] MEDS ORDERED: diphenhydrAMINE 50 MG/ML 1 ML VIAL IVP STA (15:17)
[2017-05-22] MEDS ORDERED: KETOROLAC 30 MG/ML 1 ML VIAL IM STA (15:17)
[2017-05-22] MEDS ORDERED: METOCLOPRAMIDE 5 MG/ML 2 ML VIAL IVP STA (15:17)
[2017-05-22] MEDS ORDERED: SODIUM CHLORIDE 0.9% 1,000 ML IV ONE (15:17)
--- NOTE | 2017-05-22 15:25 | ED ---
General Adult HPI - General Chief complaint: Recheck/Abnormal Lab/Rx Stated complaint: HYOPGLYCEMIA Time Seen by Provider: 05/22/17 15:08 Source: patient, EMS Mode of arrival: EMS Limitations: no limitations - History of Present Illness Initial comments: Patient is a 36-year-old, nondiabetic female who presents with a chief complaint of hypoglycemia. The patient states that she recently finished a course of steroids for bronchitis. The patient states that she has bad asthma and is frequently on steroids. The patient states that her sugars are very labile when she takes the steroids. She said that it is very common when she finishes a course of antibiotics that she experiences hypoglycemia. The patient states that when this happens, she develops a headache most likely one that she presents with today. Patient was brought in by EMS, initially her blood glucose was 45. The patient took oral sugar tablets and her sugar increased to 68. On initial evaluation the patient is mildly distressed secondary to headache. Review of patient's chart shows that she was evaluated yesterday for possible DVT, that workup was negative. Troponins were negative at that time. Patient complains of substernal chest pain at this time as well though she attributes this pain to her persistent cough. - Related Data Home Medications Medication Instructions Recorded Confirmed Levalbuterol Nebulized [Xopenex 0.63 mg INHALATION RT-QID PRN 09/30/13 05/22/17 Nebulized] Montelukast [Singulair] 10 mg PO HS 09/30/13 05/22/17 Levalbuterol Hfa Inhaler [Xopenex 2 puff INHALATION RT-Q6H PRN 01/07/14 05/22/17 Hfa Inhaler] ARIPiprazole [Abilify] 5 mg PO QAM 05/04/14 05/22/17 Desvenlafaxine Succinate [Pristiq] 100 mg PO QAM 11/07/15 05/22/17 Medroxyprogesterone Acetate 150 mg IM Q90D 11/07/15 05/22/17 [Depo-Provera] traZODone HCL [Desyrel] 100 mg PO HS 11/21/15 05/22/17 Bisacodyl 5 mg PO DAILY PRN 06/28/16 05/22/17 Flunisolide [Aerospan] 2 puff INHALATION RT-BID 06/28/16 05/22/17 Omalizumab [Xolair] 300 mg SQ Q30D 06/28/16 05/22/17 Levothyroxine Sodium [Synthroid] 137 mcg PO DAILY 07/18/16 05/22/17 Famotidine [Pepcid] 20 mg PO BID 10/02/16 05/22/17 Previous Rx's Medication Instructions Recorded Ondansetron Odt [Zofran ODT] 4 mg PO Q8HR PRN #12 tab 01/31/17 Metoprolol Tartrate [Lopressor] 12.5 mg PO BID #60 tab 02/22/17 HYDROcodone/APAP 7.5-325MG [[place] 1 tab PO Q6HR PRN #120 tab 04/23/17 7.5-325] Pregabalin [Lyrica] 75 mg PO TID #90 cap 04/23/17 Allergies Allergy/AdvReac Type Severity Reaction Status Date / Time albuterol AdvReac Rapid Verified 05/22/17 15:19 Heart Rate Review of Systems ROS Statement: Those systems with pertinent positive or pertinent negative responses have been documented in the HPI. ROS Other: All systems not noted in ROS Statement are negative. Constitutional: Denies: fever ENT: Denies: throat pain Respiratory: Reports: cough. Denies: dyspnea Cardiovascular: Reports: chest pain Endocrine: Reports: fatigue Gastrointestinal: Denies: abdominal pain, nausea, vomiting Musculoskeletal: Denies: back pain Neurological: Reports: headache Past Medical History Past Medical History: Asthma, Diabetes Mellitus, Seizure Disorder, Thyroid Disorder Additional Past Medical History / Comment(s): TACHYCARDIA, peptic ulcers, anemia."HAS BEEN ON VENTILATOR IN PAST D/T SEVERE ASTHMA ATTACK, BULEMIA-STATES GETTING BETTER, CONSTIPATION. CHRONIC BACK PAIN ,SEIZURES HAS SINCE BEEN TAKEN OFF MEDS, elevated blood sugar with steroid use and hypoglycemia when off steroids , "superficial blood clots" bilateral arms. History of Any Multi-Drug Resistant Organisms: C-DIFF, MRSA Date of last positivie culture/infection: 08/25/14 MDRO Source:: Groin Past Surgical History: Bariatric Surgery, Cholecystectomy, Orthopedic Surgery, Tonsillectomy Additional Past Surgical History / Comment(s): tilt table test, lap band 2007; NASAL FX REPAIR , ORIF LT ELBOW X2, PAIN PROCEDURES Past Anesthesia/Blood Transfusion Reactions: Postoperative Nausea & Vomiting ( PONV) Past Psychological History: Anxiety, Depression Past Alcohol Use History: None Reported - Past Family History Mother Family Medical History: Pneumonia Additional Family Medical History / Comment(s): Mother of pneumonia. Patient's son of brain cancer, last mother and father both liver cancer Son(s) Family Medical History: Cancer Additional Family Medical History / Comment(s): Son of brain cancer. Father Family Medical History: Cancer, Liver Disease Additional Family Medical History / Comment(s): Father has liver cancer with surgery. He has hepatitis. General Exam Limitations: no limitations General appearance: alert Head exam: Present: atraumatic, normocephalic Eye exam: Present: normal appearance ENT exam: Present: mucous membranes moist Respiratory exam: Present: normal lung sounds bilaterally. Absent: respiratory distress Cardiovascular Exam: Present: regular rate, normal rhythm GI/Abdominal exam: Present: soft. Absent: distended, tenderness Rectal exam: Present: deferred Neurological exam: Present: alert, oriented X3 Psychiatric exam: Present: normal affect, normal mood Skin exam: Present: warm, dry, intact Course Vital Signs 05/22/17 14:54 Temperature 96.0 F L Pulse Rate 104 H Respiratory 18 Rate Blood Pressure 125/77 O2 Sat by Pulse 98 Oximetry Medical Decision Making - Medical Decision Making Patient presents with a chief complaint of hypoglycemia after finishing a course of steroids. On initial evaluation patient is in mild distress secondary to headache. She'll be given Reglan, Benadryl, and Toradol for headache. She is currently eating crackers and peanut butter. Patient will have hourly glucose checks and basic labs. An EKG will be performed though chest pain is reproducible on exam, and patient attributes this to her persistent cough. W evaluation of this patient is unremarkable except for mildly low potassium which was replaced by mouth in the emergency department. Patient has been eating consistently since she's been in the emergency department and her sugars are still very labile. Patient was at 101, however after an hour of observation and consistent eating, the patient's sugar dropped again to 75. I discussed this case with Dr. Chin who accepts admission of this patient for continued monitoring and continuation of the D5 drip. I discussed the findings with the accepting physician, she would like to consult Dr. Jalloh. I discussed the findings and care plan with the patient, she is agreeable. - Lab Data Result diagrams: 05/22/17 15:35 05/22/17 15:35 Lab Results 05/22/17 05/22/17 05/22/17 Range/Units 15:06 15:31 15:35 WBC (3.8-10.6) k/uL RBC (3.80-5.40) m/uL Hgb (11.4-16.0) gm/dL Hct (34.0-46.0) % MCV (80.0-100.0) fL MCH (25.0-35.0) pg MCHC (31.0-37.0) g/dL RDW (11.5-15.5) % Plt Count (150-450) k/uL Neutrophils % % Lymphocytes % % Monocytes % % Eosinophils % % Basophils % % Neutrophils # (1.3-7.7) k/uL Lymphocytes # (1.0-4.8) k/uL Monocytes # (0-1.0) k/uL Eosinophils # (0-0.7) k/uL Basophils # (0-0.2) k/uL Sodium 142 (137-145) mmol/L Potassium 3.1 L (3.5-5.1) mmol/L Chloride 107 (98-107) mmol/L Carbon Dioxide 21 L (22-30) mmol/L Anion Gap 14 mmol/L BUN 18 H (7-17) mg/dL Creatinine 1.00 (0.52-1.04) mg/dL Est GFR (MDRD) Af Amer >60 (>60 ml/min/1.73 sqM) Est GFR (MDRD) Non-Af >60 (>60 ml/min/1.73 sqM) Glucose 63 L (74-99) mg/dL POC Glucose (mg/dL) 66 L 48 L (75-99) mg/dL POC Glu Staffing Assistant ID Joshua Mariselajigna Elder Bg Calcium 10.0 (8.4-10.2) mg/dL 05/22/17 05/22/17 05/22/17 Range/Units 15:35 15:36 15:37 WBC 7.1 (3.8-10.6) k/uL RBC 4.29 (3.80-5.40) m/uL Hgb 13.6 (11.4-16.0) gm/dL Hct 41.6 (34.0-46.0) % MCV 97.1 (80.0-100.0) fL MCH 31.7 (25.0-35.0) pg MCHC 32.6 (31.0-37.0) g/dL RDW 13.5 (11.5-15.5) % Plt Count 262 (150-450) k/uL Neutrophils % 86 % Lymphocytes % 9 % Monocytes % 3 % Eosinophils % 0 % Basophils % 0 % Neutrophils # 6.2 (1.3-7.7) k/uL Lymphocytes # 0.7 L (1.0-4.8) k/uL Monocytes # 0.2 (0-1.0) k/uL Eosinophils # 0.0 (0-0.7) k/uL Basophils # 0.0 (0-0.2) k/uL Sodium (137-145) mmol/L Potassium (3.5-5.1) mmol/L Chloride (98-107) mmol/L Carbon Dioxide (22-30) mmol/L Anion Gap mmol/L BUN (7-17) mg/dL Creatinine (0.52-1.04) mg/dL Est GFR (MDRD) Af Amer (>60 ml/min/1.73 sqM) Est GFR (MDRD) Non-Af (>60 ml/min/1.73 sqM) Glucose (74-99) mg/dL POC Glucose (mg/dL) 43 L 45 L (75-99) mg/dL POC Glu Staffing Assistant NENO Elder, Bg Elder, Bg Calcium (8.4-10.2) mg/dL 05/22/17 05/22/17 Range/Units 16:06 16:38 WBC (3.8-10.6) k/uL RBC (3.80-5.40) m/uL Hgb (11.4-16.0) gm/dL Hct (34.0-46.0) % MCV (80.0-100.0) fL MCH (25.0-35.0) pg MCHC (31.0-37.0) g/dL RDW (11.5-15.5) % Plt Count (150-450) k/uL Neutrophils % % Lymphocytes % % Monocytes % % Eosinophils % % Basophils % % Neutrophils # (1.3-7.7) k/uL Lymphocytes # (1.0-4.8) k/uL Monocytes # (0-1.0) k/uL Eosinophils # (0-0.7) k/uL Basophils # (0-0.2) k/uL Sodium (137-145) mmol/L Potassium (3.5-5.1) mmol/L Chloride (98-107) mmol/L Carbon Dioxide (22-30) mmol/L Anion Gap mmol/L BUN (7-17) mg/dL Creatinine (0.52-1.04) mg/dL Est GFR (MDRD) Af Amer (>60 ml/min/1.73 sqM) Est GFR (MDRD) Non-Af (>60 ml/min/1.73 sqM) Glucose (74-99) mg/dL POC Glucose (mg/dL) 101 H 75 (75-99) mg/dL POC Glu Staffing Assistant ID Melly Hung Shellene Calcium (8.4-10.2) mg/dL Disposition Clinical Impression: Hypoglycemia Disposition: ADMITTED IP TO THIS HOSP Condition: Good Referrals: Slade Gonzalez MD [Primary Care Provider] - 1-2 days Decision to Admit Reason: Admit from EC - Out of Hospital Transfer - Req. Specs Out of Hospital Transfer - Requested Specifics: Other Non-Acute
[2017-05-22 15:39] LABS: Glucose,Whole Blood 43 mg/dL (75-99)
[2017-05-22 15:39] LABS: Glucose,Whole Blood 48 mg/dL (75-99)
[2017-05-22 15:39] LABS: Glucose,Whole Blood 45 mg/dL (75-99)
[2017-05-22] MEDS ORDERED: DEXTROSE 50%-WATER 50 ML SYRINGE IVP STA (15:44)
[2017-05-22 15:51] LABS: Basophils % (A) 0 %; Eosinophils % (A) 0 %; HCT 41.6 % (34.0-46.0); HGB 13.6 gm/dL (11.4-16.0); Lymphocytes # (A) 0.7 k/uL (1.0-4.8); Lymphocytes % (A) 9 %; MCH 31.7 pg (25.0-35.0); MCHC 32.6 g/dL (31.0-37.0); MCV 97.1 fL (80.0-100.0); Mean Platelet Volume 7.1; Monocytes # (A) 0.2 k/uL (0-1.0); Monocytes % (A) 3 %; Neutrophils # (A) 6.2 k/uL (1.3-7.7); Neutrophils % (A) 86 %; Platelet Count 262 k/uL (150-450); RBC 4.29 m/uL (3.80-5.40); RDW 13.5 % (11.5-15.5); WBC 7.1 k/uL (3.8-10.6)
[2017-05-22] MEDS ORDERED: KETOROLAC 30 MG/ML 1 ML VIAL IVP STA (15:56)
[2017-05-22 16:02] LABS: Anion Gap 14 mmol/L; Blood Urea Nitrogen 18 mg/dL (7-17); Carbon Dioxide 21 mmol/L (22-30); Chloride 107 mmol/L (98-107); Glucose 63 mg/dL (74-99); Sodium 142 mmol/L (137-145)
[2017-05-22 16:07] LABS: Potassium 3.1 mmol/L (3.5-5.1)
[2017-05-22 16:08] LABS: Glucose,Whole Blood 101 mg/dL (75-99)
[2017-05-22] MEDS ORDERED: DEXTROSE 5%-0.9% NACL 1,000 ML IV SCH (16:15)
[2017-05-22 16:41] LABS: Glucose,Whole Blood 75 mg/dL (75-99)
[2017-05-22] MEDS ORDERED: POTASSIUM CHLORIDE ER 20 MEQ TAB.ER PO STA ×2 (16:54)
[2017-05-22] MEDS ORDERED: NALOXONE 0.4 MG/ML 1 ML VIAL IV PRN (16:59)
[2017-05-22] MEDS ORDERED: ACETAMINOPHEN TAB 325 MG TAB PO PRN (16:59)
[2017-05-22] MEDS ORDERED: IBUPROFEN 400 MG TAB PO PRN (16:59)
[2017-05-22 17:50] LABS: Glucose,Whole Blood 70 mg/dL (75-99)
[2017-05-22 19:23] LABS: Glucose,Whole Blood 117 mg/dL (75-99)
[2017-05-22 20:12] LABS: Glucose,Whole Blood 129 mg/dL (75-99)
[2017-05-22 21:03] LABS: Glucose,Whole Blood 159 mg/dL (75-99)
[2017-05-22] MEDS ORDERED: SODIUM CHLORIDE 0.9% 1,000 ML IV SCH (21:15)
[2017-05-22] MEDS ORDERED: traZODone HCL 100 MG TAB PO SCH (21:15)
[2017-05-22] MEDS: HYDROcodone/APAP 7.5-325MG 1 EACH TAB PO PRN (21:55)
[2017-05-22] MEDS: METOPROLOL TARTRATE 12.5 MG TAB PO SCH (21:55)
[2017-05-23 00:57] VITALS: RESP 16
[2017-05-23 02:28] LABS: Hemoglobin A1C 4.7 % (4.0-6.0)
[2017-05-23] MEDS: HYDROcodone/APAP 7.5-325MG 1 EACH TAB PO PRN (05:47)
[2017-05-23 06:14] LABS: Basophils % (A) 1 %; Eosinophils # (A) 0.1 k/uL (0-0.7); Eosinophils % (A) 1 %; HCT 36.6 % (34.0-46.0); HGB 11.8 gm/dL (11.4-16.0); Lymphocytes # (A) 1.9 k/uL (1.0-4.8); Lymphocytes % (A) 31 %; MCHC 32.3 g/dL (31.0-37.0); MCV 99.2 fL (80.0-100.0); Mean Platelet Volume 7.2; Monocytes # (A) 0.3 k/uL (0-1.0); Monocytes % (A) 5 %; Neutrophils # (A) 3.7 k/uL (1.3-7.7); Neutrophils % (A) 61 %; Platelet Count 206 k/uL (150-450); RBC 3.69 m/uL (3.80-5.40); RDW 13.4 % (11.5-15.5); WBC 6.1 k/uL (3.8-10.6)
[2017-05-23 06:16] LABS: Glucose,Whole Blood 88 mg/dL (75-99)
[2017-05-23 06:37] LABS: Anion Gap 6 mmol/L; Blood Urea Nitrogen 14 mg/dL (7-17); Calcium 8.5 mg/dL (8.4-10.2); Carbon Dioxide 26 mmol/L (22-30); Chloride 109 mmol/L (98-107); Glucose 108 mg/dL (74-99); Potassium 4.6 mmol/L (3.5-5.1); Sodium 141 mmol/L (137-145)
[2017-05-23] MEDS ORDERED: ONDANSETRON 4 MG/2 ML VIAL IVP PRN (08:51)
[2017-05-23] MEDS: METOPROLOL TARTRATE 12.5 MG TAB PO SCH (09:16)
[2017-05-23 11:47] LABS: Glucose,Whole Blood 111 mg/dL (75-99)
[2017-05-23 15:36] VITALS: PULSE 88
[2017-05-23 16:00] VITALS: BP 100/59; TEMP 97.9
--- NOTE | 2017-05-23 17:20 | P.HPIM ---
History of Present Illness Patient is a 36-year-old, nondiabetic female who presents with a chief complaint of hypoglycemia. The patient states that she recently finished a course of steroids for bronchitis. The patient states that she has bad asthma and is frequently on steroids. The patient states that her sugars are very labile when she takes the steroids. She said that it is very common when she finishes a course of antibiotics that she experiences hypoglycemia. The patient states that when this happens, she develops a headache most likely one that she presents with today. Patient was brought in by EMS, initially her blood glucose was 45. The patient took oral sugar tablets and her sugar increased to 68. On initial evaluation the patient is mildly distressed secondary to headache. Review of patient's chart shows that she was evaluated yesterday for possible DVT, that workup was negative. Troponins were negative at that time. Patient complains of substernal chest pain at this time as well though she attributes this pain to her persistent cough. His blood sugars are well controlled and patient is not on any dextrose any more and patient is requesting to be discharged and patient will be discharged today. Review of Systems REVIEW OF SYSTEMS: CONSTITUTIONAL: No fever, no malaise, no fatigue. HEENT: No recent visual problems or hearing problems. Denied any sore throat. CARDIOVASCULAR: No chest pain, orthopnea, PND, no palpitations, no syncope. PULMONARY: No shortness of breath, no cough, no hemoptysis. GASTROINTESTINAL: No diarrhea, no nausea, no vomiting, no abdominal pain. Normoactive bowel sounds. NEUROLOGICAL: No headaches, no weakness, no numbness. HEMATOLOGICAL: Denies any bleeding or petechiae. GENITOURINARY: Denies any burning micturition, frequency, or urgency. MUSCULOSKELETAL/RHEUMATOLOGICAL: Denies any joint pain, swelling, or any muscle pain. ENDOCRINE: Denies any polyuria or polydipsia. The rest of the 14-point review of systems is negative. Past Medical History Past Medical History: Asthma, Diabetes Mellitus, Seizure Disorder, Thyroid Disorder Additional Past Medical History / Comment(s): TACHYCARDIA, peptic ulcers, anemia."HAS BEEN ON VENTILATOR IN PAST D/T SEVERE ASTHMA ATTACK, BULEMIA-STATES GETTING BETTER, CONSTIPATION. PAST ULCER, HERNIATED DISC,FX RT FOOT IN DEC AND RE-FX 05/15/17 WEARING BOOT. CHRONIC BACK PAIN ,SEIZURES HAS SINCE BEEN TAKEN OFF MEDS, elevated blood sugar with steroid use and hypoglycemia when off steroids , "superficial blood clots" bilateral arms.CONSTIPATION History of Any Multi-Drug Resistant Organisms: MRSA Date of last positivie culture/infection: 08/25/14 MDRO Source:: Groin Past Surgical History: Bariatric Surgery, Cholecystectomy, Orthopedic Surgery, Tonsillectomy Additional Past Surgical History / Comment(s): tilt table test, lap band 2007; NASAL FX REPAIR , ORIF LT ELBOW X2, PAIN PROCEDURES Past Anesthesia/Blood Transfusion Reactions: Postoperative Nausea & Vomiting ( PONV) Smoking Status: Never smoker - Past Family History Mother Family Medical History: Pneumonia Additional Family Medical History / Comment(s): Mother of pneumonia. Patient's son of brain cancer, last mother and father both liver cancer Son(s) Family Medical History: Cancer Additional Family Medical History / Comment(s): Son of brain cancer. Father Family Medical History: Cancer, Liver Disease Additional Family Medical History / Comment(s): Father has liver cancer with surgery. He has hepatitis. Medications and Allergies Home Medications Medication Instructions Recorded Confirmed Type Levalbuterol Nebulized [Xopenex 0.63 mg INHALATION RT-QID PRN 09/30/13 05/22/17 History Nebulized] Montelukast [Singulair] 10 mg PO HS 09/30/13 05/22/17 History Levalbuterol Hfa Inhaler [Xopenex 2 puff INHALATION RT-Q6H PRN 01/07/14 History Hfa Inhaler] ARIPiprazole [Abilify] 5 mg PO QAM 05/04/14 05/22/17 History Desvenlafaxine Succinate [Pristiq] 100 mg PO QAM 11/07/15 05/22/17 History Medroxyprogesterone Acetate 150 mg IM Q90D 11/07/15 05/22/17 History [Depo-Provera] traZODone HCL [Desyrel] 100 mg PO HS 11/21/15 05/22/17 History Bisacodyl 5 mg PO DAILY PRN 06/28/16 05/22/17 History Flunisolide [Aerospan] 2 puff INHALATION RT-BID 06/28/16 05/22/17 History Omalizumab [Xolair] 300 mg SQ Q30D 06/28/16 05/22/17 History Levothyroxine Sodium [Synthroid] 137 mcg PO DAILY 07/18/16 05/22/17 History Famotidine [Pepcid] 20 mg PO BID 10/02/16 05/22/17 History Ondansetron Odt [Zofran ODT] 4 mg PO Q8HR PRN #12 tab 01/31/17 05/22/17 Rx Metoprolol Tartrate [Lopressor] 12.5 mg PO BID #60 tab 02/22/17 05/22/17 Rx HYDROcodone/APAP 7.5-325MG [[place] 1 tab PO Q6HR PRN #120 tab 04/23/17 05/22/17 Rx 7.5-325] Pregabalin [Lyrica] 75 mg PO TID #90 cap 04/23/17 05/22/17 Rx Allergies Allergy/AdvReac Type Severity Reaction Status Date / Time albuterol AdvReac Rapid Verified 05/22/17 15:19 Heart Rate Physical Exam Vitals: Vital Signs Temp Pulse Pulse Pulse Resp BP BP 05/23/17 12:00 97.9 F 68 16 100/59 05/23/17 08:00 97.0 F L 93 68 16 110/61 05/23/17 04:00 97.6 F 93 16 99/63 05/23/17 00:00 97.9 F 89 16 93/60 05/22/17 20:00 98.6 F 88 88 18 118/75 05/22/17 19:32 98.9 F 96 16 102/60 05/22/17 18:56 98 F 55 L 16 116/56 05/22/17 17:49 111 H 18 129/67 Pulse Ox 05/23/17 12:00 99 05/23/17 08:00 97 05/23/17 04:00 99 05/23/17 00:00 98 05/22/17 20:00 100 05/22/17 19:32 98 05/22/17 18:56 98 05/22/17 17:49 100 Intake and Output 05/23/17 05/23/17 05/23/17 06:59 14:59 22:59 Intake Total 630 480 Balance 630 480 Intake: Intake, IV Titration 630 Amount Dextrose 5%-0.9% NaCl 1, 150 000 ml @ 75 mls/hr IV . [id number] [facility] Rx#:[id number] Sodium Chloride 0.9% 1, 480 000 ml @ 75 mls/hr IV . [id number] [facility] Rx#:[id number] Oral 480 Other: Voiding Method Toilet Toilet # Voids 1 # Bowel Movements 0 Weight 75.7 kg PHYSICAL EXAMINATION: GENERAL: The patient is alert and oriented x3, not in any acute distress. Well developed, well nourished. HEENT: Pupils are round and equally reacting to light. EOMI. No scleral icterus. No conjunctival pallor. Normocephalic, atraumatic. No pharyngeal erythema. No thyromegaly. CARDIOVASCULAR: S1 and S2 present. No murmurs, rubs, or gallops. PULMONARY: Chest is clear to auscultation, no wheezing or crackles. ABDOMEN: Soft, nontender, nondistended, normoactive bowel sounds. No palpable organomegaly. MUSCULOSKELETAL: No joint swelling or deformity. EXTREMITIES: No cyanosis, clubbing, or pedal edema. NEUROLOGICAL: Gross neurological examination did not reveal any focal deficits. SKIN: No rashes. Results CBC & Chem 7: 05/23/17 05:27 05/23/17 05:27 Labs: Abnormal Lab Results - Last 24 Hours (Table) 05/22/17 05/22/17 05/22/17 Range/Units 17:47 19:21 20:01 RBC (3.80-5.40) m/uL Chloride (98-107) mmol/L Glucose (74-99) mg/dL POC Glucose (mg/dL) 70 L 117 H 129 H (75-99) mg/dL 05/22/17 05/23/17 05/23/17 Range/Units 21:02 05:27 05:27 RBC 3.69 L (3.80-5.40) m/uL Chloride 109 H (98-107) mmol/L Glucose 108 H (74-99) mg/dL POC Glucose (mg/dL) 159 H (75-99) mg/dL 05/23/17 Range/Units 11:42 RBC (3.80-5.40) m/uL Chloride (98-107) mmol/L Glucose (74-99) mg/dL POC Glucose (mg/dL) 111 H (75-99) mg/dL Thrombosis Risk Factor Assmnt - Choose All That Apply Any of the Below Risk Factors Present?: Yes Each Factor Represents 1 point: Obesity (BMI >25) Other Risk Factors: No Other congenital or acquired thrombophilia - If yes, enter type in comment: No Thrombosis Risk Factor Assessment Total Risk Factor Score: 1 Thrombosis Risk Factor Assessment Level: Low Risk Assessment and Plan Plan: Hypoglycemia, nondiabetic reactive in nature secondary to withdrawal from steroids patient was using systemic steroids until now. -Asthma presently not in acute exacerbation -Seizure disorder -Hypothyroidism Patient is doing well blood sugars are stable without any IV D5 supplementation tolerating diet well and patient will be discharged today patient was admitted for monitoring for low blood sugars
--- NOTE | 2017-05-23 17:21 | P.DS ---
Providers Date of admission: 05/22/17 17:14 Attending physician: Aki Mixon MD Consults: 05/22/17 17:03 Consult Physician Routine Consulting Provider: Poly Montano Consult Reason/Comments: hypoglycemia, non-diabetic Do you want consulting provider notified?: Yes Primary care physician: Slade Gonzalez [place] [facility] Course: refer to my HPI Patient Condition at Discharge: Good Plan - Discharge Summary Discharge Rx Participant: No New Discharge Prescriptions: No Action Montelukast [Singulair] 10 mg PO HS Levalbuterol Nebulized [Xopenex Nebulized] 0.63 mg INHALATION RT-QID PRN PRN Reason: Shortness Of Breath Levalbuterol Hfa Inhaler [Xopenex Hfa Inhaler] 2 puff INHALATION RT-Q6H PRN PRN Reason: Shortness Of Breath ARIPiprazole [Abilify] 5 mg PO QAM Medroxyprogesterone Acetate [Depo-Provera] 150 mg IM Q90D Desvenlafaxine Succinate [Pristiq] 100 mg PO QAM traZODone HCL [Desyrel] 100 mg PO HS Omalizumab [Xolair] 300 mg SQ Q30D Flunisolide [Aerospan] 2 puff INHALATION RT-BID Bisacodyl 5 mg PO DAILY PRN PRN Reason: Constipation Levothyroxine Sodium [Synthroid] 137 mcg PO DAILY Famotidine [Pepcid] 20 mg PO BID Ondansetron Odt [Zofran ODT] 4 mg PO Q8HR PRN #12 tab PRN Reason: Nausea Metoprolol Tartrate [Lopressor] 12.5 mg PO BID #60 tab HYDROcodone/APAP 7.5-325MG [[place] 7.5-325] 1 tab PO Q6HR PRN #120 tab PRN Reason: Pain Pregabalin [Lyrica] 75 mg PO TID #90 cap Discharge Medication List Levalbuterol Nebulized [Xopenex Nebulized] 0.63 mg INHALATION RT-QID PRN [History] Montelukast [Singulair] 10 mg PO HS 09/30/13 [History] Levalbuterol Hfa Inhaler [Xopenex Hfa Inhaler] 2 puff INHALATION RT-Q6H PRN [History] ARIPiprazole [Abilify] 5 mg PO QAM 05/04/14 [History] Desvenlafaxine Succinate [Pristiq] 100 mg PO QAM 11/07/15 [History] Medroxyprogesterone Acetate [Depo-Provera] 150 mg IM Q90D 11/07/15 [History] traZODone HCL [Desyrel] 100 mg PO HS 11/21/15 [History] Bisacodyl 5 mg PO DAILY PRN 06/28/16 [History] Flunisolide [Aerospan] 2 puff INHALATION RT-BID 06/28/16 [History] Omalizumab [Xolair] 300 mg SQ Q30D 06/28/16 [History] Levothyroxine Sodium [Synthroid] 137 mcg PO DAILY 07/18/16 [History] Famotidine [Pepcid] 20 mg PO BID 10/02/16 [History] Ondansetron Odt [Zofran ODT] 4 mg PO Q8HR PRN #12 tab 01/31/17 [Rx] Metoprolol Tartrate [Lopressor] 12.5 mg PO BID #60 tab 02/22/17 [Rx] HYDROcodone/APAP 7.5-325MG [[place] 7.5-325] 1 tab PO Q6HR PRN #120 tab 04/23/17 [ Rx] Pregabalin [Lyrica] 75 mg PO TID #90 cap 04/23/17 [Rx] Follow up Appointment(s)/Referral(s): Slade Gonzalez MD [Primary Care Provider] - 3 Days Patient Instructions/Handouts: Non-diabetic Hypoglycemia (DC) Activity/Diet/Wound Care/Special Instructions: pt is requesting to make her own appointments for follow up Discharge Disposition: HOME SELF-CARE
== END 2017-05-23 16:32 | disposition home or self-care (01) ==
LOC: EC 14:53 → 5MS5E 17:14 → INTOOBSV 17:14 → 5MS5E 19:08 → 6SEL 19:41 → UNDODISIN 05-23 16:32
PROVIDERS: ADMIT Internal Medicine; ATTEND Internal Medicine
DX: E16.0 Drug-induced hypoglycemia without coma (principal); F50.2 Bulimia nervosa; E03.9 Hypothyroidism, unspecified; T38.0X5A Adverse effect of glucocorticoids and synthetic analogues, initial encounter; G40.909 Epilepsy, unspecified, not intractable, without status epilepticus; J45.909 Unspecified asthma, uncomplicated; F32.9 Major depressive disorder, single episode, unspecified; F41.9 Anxiety disorder, unspecified; G89.29 Other chronic pain; M54.9 Dorsalgia, unspecified; E87.6 Hypokalemia; R07.2 Precordial pain; R05 Cough; R00.0 Tachycardia, unspecified; Z98.84 Bariatric surgery status; K59.00 Constipation, unspecified; E11.9 Type 2 diabetes mellitus without complications; Z86.14 Personal history of Methicillin resistant Staphylococcus aureus infection; Z79.899 Other long term (current) drug therapy; E66.9 Obesity, unspecified; Z68.30 Body mass index [BMI] 30.0-30.9, adult; Z88.8 Allergy status to other drugs, medicaments and biological substances; Z80.8 Family history of malignant neoplasm of other organs or systems; Z16.24 Resistance to multiple antibiotics; Z79.3 Long term (current) use of hormonal contraceptives; Z87.11 Personal history of peptic ulcer disease; Z87.09 Personal history of other diseases of the respiratory system
CPT/HCPCS: 96375 ×3; 96365 ×2; 96366 ×4; 96361; 99285; 36415; 80048 ×2; 85025 ×2; 83036; G0378 ×2; J1200; J2765; J2405; J1885; 96374

== ENCOUNTER 2017-05-28 08:37 | Day surgery (SDC) | payer OTHER ==
[2017-05-22 10:34] VITALS: BMI 28.3
[~2017-05-28 08:37] MED LIST changes: -HYDROcodone/APAP 7.5-325MG 1 EACH TAB PO ONE; -IV FLUID CONTINUATION 1,000 ML IV ONE; -LACTATED RINGERS 1,000 ML IV ONE; -LIDOCAINE 1% 20 ML VIAL (10MG/ML) FOR IV START INTRADERMA ONE; -ONDANSETRON 4 MG/2 ML VIAL IVP STA
[2017-05-28 09:07] LABS: Glucose,Whole Blood 86 mg/dL (75-99)
[2017-05-28] MEDS ORDERED: LACTATED RINGERS 1,000 ML IV ONE (09:10)
[2017-05-28] MEDS ORDERED: LIDOCAINE 1% 20 ML VIAL (10MG/ML) FOR IV START INTRADERMA ONE (09:10)
[2017-05-28] MEDS ORDERED: ONDANSETRON 4 MG/2 ML VIAL IVP STA (10:24)
--- NOTE | 2017-05-28 10:24 | P.PCN ---
Date of Procedure: 05/28/17 Procedure(s) Performed: PREOPERATIVE DIAGNOSIS: Thoracic Radiculitis . POSTOPERATIVE DIAGNOSIS: Thoracic Radiculitis . PROCEDURE 1. Thoracic epidural steroid injection under fluoroscopic guidance at the T7-8 level. 2. Thoracic epidurogram. ANESTHESIA: Local with 1% lidocaine 3 ml and , moderate sedation with intravenous Versed 2 mg ,and fentanyle 200 Mcg EBL: Minimal PROCEDURE INDICATION: The patient with mid and low back pain, and radiculitis symptoms unresponsive to conservative treatment. Fluoroscopy was used to optimize visualization of the needle placement and to maximize safety. PROCEDURE DESCRIPTION / TECHNIQUE: The patient was seen and identified in the preoperative area. Risks, benefits , complications including but not limited to infections ,bleeding ,allergic reaction to the medications ,nerve damage and not complete pain releife , and alternatives were discussed with the patient. The patient agreed to proceed with the procedure and signed the consent. IV was started, and vital signs were stable. Patient was taken to the OR and time out was completed. The patient was placed in the prone position on procedure table . The thoracic area was prepped and draped in the usual sterile fashion.ere closely monitored during the procedure. Conscious sedation was used during the procedure to decrease patients anxiety. Vital signs was monitered during the entire procedure. Using anterior-posterior fluoroscopy, the T7-8 interlaminar space was identified and the skin over this site was marked and then infiltrated with 1% lidocaine subcutaneously. Subsequently, a 20-gauge Tuohy epidural needle was inserted and advanced toward the epidural space using the ``Loss of resistance technique and guided by AP and lateral fluoroscopy. The correct needle position in the epidural space was verified with the injection of 2 mL of the water soluble contrast dye Omnipaque 180 contrast and observing an excellent epidurogram with the epidural spread of the dye, after negative aspiration for blood and CSF and in the absence of paresthesias. Again after negative aspiration, a 4 ml mixture containing 20 mg of Dexamethasone and 2 ml of preservative free Normal Saline, solution was injected and a washout of epidurogram was seen. Needle was withdrawn intact, skin was cleansed, and bandages were applied. COMPLICATIONS: None DISPOSITION / PLANS: The patient was placed in a supine position and transferred to the recovery area in a stable condition for observation. There was no evidence of lower extremity motor or sensory deficit after the procedure. Patient was discharged from the recovery room after meeting discharge criteria. Home discharge instructions were given to the patient by the staff. The patient was reexamined prior to discharge. The patient will schedule a follow up in the clinic in 2-4 weeks.
--- NOTE | 2017-05-28 10:40 | FL ---
EXAMINATION TYPE: FL guided pain mgmt statistic DATE OF EXAM: 05/28/2017 HISTORY: Flouroscopy time 6 seconds of fluoroscopy provided. IMPRESSION: 1. Fluoroscopy time.
[2017-05-28 11:05] LABS: Glucose,Whole Blood 125 mg/dL (75-99)
[2017-05-29 22:58] VITALS: BP 88/50; PULSE 95; RESP 18; TEMP 98.1
== END 2017-05-28 11:14 | disposition home or self-care (01) ==
LOC: ORPAIN 08:37
PROVIDERS: ATTEND Specialist
DX: M54.14 Radiculopathy, thoracic region (principal); E11.9 Type 2 diabetes mellitus without complications; J45.909 Unspecified asthma, uncomplicated; Z88.8 Allergy status to other drugs, medicaments and biological substances
CPT/HCPCS: 62321; 81025; J2250; J1100; Q9965; J3010; 99152

== ENCOUNTER 2017-06-08 20:27 | Emergency (ER) | payer OTHER ==
[2017-06-08 20:37] VITALS: RESP 18
[2017-06-08 20:43] LABS: Glucose,Whole Blood 58 mg/dL (75-99)
[2017-06-08] MEDS ORDERED: SODIUM CHLORIDE 0.9% 1,000 ML IV STA (21:04)
[2017-06-08] MEDS ORDERED: ONDANSETRON 4 MG/2 ML VIAL IVP STA (21:04)
[2017-06-08 21:25] LABS: Basophils # (A) 0.1 k/uL (0-0.2); Basophils % (A) 1 %; Eosinophils # (A) 0.1 k/uL (0-0.7); Eosinophils % (A) 1 %; HCT 38.4 % (34.0-46.0); HGB 13.1 gm/dL (11.4-16.0); Lymphocytes # (A) 2.6 k/uL (1.0-4.8); Lymphocytes % (A) 26 %; MCHC 34.2 g/dL (31.0-37.0); MCV 96.5 fL (80.0-100.0); Mean Platelet Volume 7.1; Monocytes # (A) 0.4 k/uL (0-1.0); Monocytes % (A) 4 %; Neutrophils # (A) 6.5 k/uL (1.3-7.7); Neutrophils % (A) 66 %; Platelet Count 223 k/uL (150-450); RBC 3.98 m/uL (3.80-5.40); RDW 13.7 % (11.5-15.5); WBC 9.8 k/uL (3.8-10.6)
[2017-06-08 21:26] LABS: Appearance,Urine Clear (Clear); Bilirubin,Urine Negative (Negative); Blood,Urine Negative (Negative); Color,Urine Yellow; Glucose,Urine (UA) Negative (Negative); Ketones,Urine Negative (Negative); Leukocyte Esterase,Urine Negative (Negative); Nitrite,Urine Negative (Negative); PH, Urine 5.5 (5.0-8.0); Protein,Urine Negative (Negative); Specific Gravity,Urine 1.015 (1.001-1.035); Urobilinogen,Urine <2.0 mg/dL (<2.0)
[2017-06-08 21:38] LABS: ALT 33 U/L (9-52); AST 25 U/L (14-36); Albumin 4.5 g/dL (3.5-5.0); Alkaline Phosphatase 55 U/L (38-126); Anion Gap 12 mmol/L; Blood Urea Nitrogen 24 mg/dL (7-17); Calcium 9.8 mg/dL (8.4-10.2); Carbon Dioxide 22 mmol/L (22-30); Chloride 107 mmol/L (98-107); Glucose 52 mg/dL (74-99); Potassium 3.2 mmol/L (3.5-5.1); Sodium 141 mmol/L (137-145); Total Bilirubin 0.3 mg/dL (0.2-1.3); Total Protein 6.8 g/dL (6.3-8.2)
[2017-06-08 21:40] LABS: Glucose,Whole Blood 43 mg/dL (75-99)
--- NOTE | 2017-06-08 21:51 | XR ---
EXAMINATION TYPE: XR chest 2V DATE OF EXAM: 06/08/2017 COMPARISON: 12/19/2016 HISTORY: Chest pain TECHNIQUE: Frontal and lateral views of the chest are obtained. FINDINGS: There is no focal air space opacity, pleural effusion, or pneumothorax seen. Lap band is again noted. The cardiac silhouette size is within normal limits. The osseous structures are intac t. IMPRESSION: No acute cardiopulmonary process.
--- NOTE | 2017-06-08 22:05 | ED ---
Nausea/Vomiting/Diarrhea HPI - General Chief complaint: Nausea/Vomiting/Diarrhea Stated complaint: Vomiting Time Seen by Provider: 06/08/17 20:54 Source: patient, RN notes reviewed Mode of arrival: ambulatory Limitations: no limitations - History of Present Illness Initial comments: This is a 36 year old female who presents to the emergency department with chief complaint of nausea and vomiting. Patient states that she has been nauseous since yesterday. She states she's been unable to keep any food and drink down. She denies any abdominal pain. She states she has had some all over body aches. She states that she has a history of asthma and has had an increase in her frequency of coughing. She states that she has had fevers at home that measure 101. She states that she has been doing at home nebulizer treatments, the last being one hour prior to arrival. Patient has been alternating Tylenol and Motrin for her fevers. Denies chills, chest pain, shortness of breath, abdominal pain, diarrhea, dysuria or hematuria, numbness or tingling, headache or vision changes. - Related Data Home Medications Medication Instructions Recorded Confirmed Levalbuterol Nebulized [Xopenex 0.63 mg INHALATION RT-QID PRN 09/30/13 05/22/17 Nebulized] Montelukast [Singulair] 10 mg PO HS 09/30/13 05/22/17 Levalbuterol Hfa Inhaler [Xopenex 2 puff INHALATION RT-Q6H PRN 01/07/14 05/22/17 Hfa Inhaler] ARIPiprazole [Abilify] 5 mg PO QAM 05/04/14 05/22/17 Desvenlafaxine Succinate [Pristiq] 100 mg PO QAM 11/07/15 05/22/17 Medroxyprogesterone Acetate 150 mg IM Q90D 11/07/15 05/22/17 [Depo-Provera] traZODone HCL [Desyrel] 100 mg PO HS 11/21/15 05/22/17 Bisacodyl 5 mg PO DAILY PRN 06/28/16 05/22/17 Flunisolide [Aerospan] 2 puff INHALATION RT-BID 06/28/16 05/22/17 Omalizumab [Xolair] 300 mg SQ Q30D 06/28/16 05/22/17 Levothyroxine Sodium [Synthroid] 137 mcg PO DAILY 07/18/16 05/22/17 Famotidine [Pepcid] 20 mg PO BID 10/02/16 05/22/17 Previous Rx's Medication Instructions Recorded Ondansetron Odt [Zofran ODT] 4 mg PO Q8HR PRN #12 tab 01/31/17 Metoprolol Tartrate [Lopressor] 12.5 mg PO BID #60 tab 02/22/17 HYDROcodone/APAP 7.5-325MG [[place] 1 tab PO Q6HR PRN #120 tab 04/23/17 7.5-325] Pregabalin [Lyrica] 75 mg PO TID #90 cap 04/23/17 Allergies Allergy/AdvReac Type Severity Reaction Status Date / Time albuterol AdvReac Rapid Verified 05/22/17 15:19 Heart Rate Review of Systems ROS Statement: Those systems with pertinent positive or pertinent negative responses have been documented in the HPI. ROS Other: All systems not noted in ROS Statement are negative. Past Medical History Past Medical History: Asthma, Diabetes Mellitus, Seizure Disorder, Thyroid Disorder Additional Past Medical History / Comment(s): TACHYCARDIA, peptic ulcers, anemia."HAS BEEN ON VENTILATOR IN PAST D/T SEVERE ASTHMA ATTACK, BULEMIA-STATES GETTING BETTER, CONSTIPATION. PAST ULCER, HERNIATED DISC,FX RT FOOT IN DEC AND RE-FX 05/15/17 WEARING BOOT. CHRONIC BACK PAIN ,SEIZURES HAS SINCE BEEN TAKEN OFF MEDS, elevated blood sugar with steroid use and hypoglycemia when off steroids , "superficial blood clots" bilateral arms.CONSTIPATION History of Any Multi-Drug Resistant Organisms: MRSA Date of last positivie culture/infection: 08/25/14 MDRO Source:: Groin Past Surgical History: Bariatric Surgery, Cholecystectomy, Orthopedic Surgery, Tonsillectomy Additional Past Surgical History / Comment(s): tilt table test, lap band 2007; NASAL FX REPAIR , ORIF LT ELBOW X2, PAIN PROCEDURES Past Anesthesia/Blood Transfusion Reactions: Postoperative Nausea & Vomiting ( PONV) Past Psychological History: Anxiety, Depression Smoking Status: Never smoker Past Alcohol Use History: None Reported Past Drug Use History: None Reported - Past Family History Mother Family Medical History: Pneumonia Additional Family Medical History / Comment(s): Mother of pneumonia. Patient's son of brain cancer, last mother and father both liver cancer Son(s) Family Medical History: Cancer Additional Family Medical History / Comment(s): Son of brain cancer. Father Family Medical History: Cancer, Liver Disease Additional Family Medical History / Comment(s): Father has liver cancer with surgery. He has hepatitis. General Exam - General Exam Comments Initial Comments: General: Awake and alert, well-developed; in no apparent distress. HEENT: Head atraumatic, normocephalic. Pupils are equal, round and reactive to light. Extraocular movements intact. Oropharynx moist without erythema or exudate. Neck: Supple. Normal ROM. Cardiovascular: Regular rate and rhythm. No murmurs, rubs or gallops. Chest symmetrical. Respiratory: Lungs clear to auscultation bilaterally. No wheezes, rales or rhonchi. Normal respiratory effort with no use of accessory muscles. Abdomen: Soft, non-tender, non-distended. No rigidity, rebound or guarding. Normal bowel sounds in all 4 quadrants. Musculoskeletal: Normal ROM, no tenderness bilateral upper and lower extremities. Skin: [place], warm and dry without rashes or lesions. Neurological: Alert and oriented x3. CN II-XII grossly intact. Speech is fluent and answers are appropriate. No focal neuro deficits. Psychiatric: Normal mood and affect. No overt signs of depression or anxiety noted. Limitations: no limitations Course Vital Signs 06/08/17 20:34 Temperature 98.5 F Pulse Rate 110 H Respiratory 18 Rate Blood Pressure 133/79 O2 Sat by Pulse 99 Oximetry Medical Decision Making - Medical Decision Making This is a 36-year-old female who presents to the emergency department with chief complaint of nausea and vomiting. Patient has a history of hypoglycemia as well as asthma. She complains of cough and fevers at home. CBC and UA were within normal limits. Patient has slightly decreased potassium and was given oral replacement. Patient hypoglycemic while in the emergency department. She was able to eat food and keep it down without any nausea or vomiting. Blood sugar on discharge is 61. Patient given fluids and antiemetics while in the emergency department. She states that she is feeling a lot better. Chest x- ray was negative for any acute abnormalities. Patient tested negative for influenza. She is in no acute distress at this time. She will be discharged home. Patient is in agreement and voices understanding. All questions were answered. - Lab Data Result diagrams: 06/08/17 21:14 06/08/17 21:14 Lab Results 06/08/17 06/08/17 06/08/17 Range/Units 20:41 21:06 21:14 WBC 9.8 (3.8-10.6) k/uL RBC 3.98 (3.80-5.40) m/uL Hgb 13.1 (11.4-16.0) gm/dL Hct 38.4 (34.0-46.0) % MCV 96.5 (80.0-100.0) fL MCH 33.0 (25.0-35.0) pg MCHC 34.2 (31.0-37.0) g/dL RDW 13.7 (11.5-15.5) % Plt Count 223 (150-450) k/uL Neutrophils % 66 % Lymphocytes % 26 % Monocytes % 4 % Eosinophils % 1 % Basophils % 1 % Neutrophils # 6.5 (1.3-7.7) k/uL Lymphocytes # 2.6 (1.0-4.8) k/uL Monocytes # 0.4 (0-1.0) k/uL Eosinophils # 0.1 (0-0.7) k/uL Basophils # 0.1 (0-0.2) k/uL Sodium (137-145) mmol/L Potassium (3.5-5.1) mmol/L Chloride (98-107) mmol/L Carbon Dioxide (22-30) mmol/L Anion Gap mmol/L BUN (7-17) mg/dL Creatinine (0.52-1.04) mg/dL Est GFR (MDRD) Af Amer (>60 ml/min/1.73 sqM) Est GFR (MDRD) Non-Af (>60 ml/min/1.73 sqM) Glucose (74-99) mg/dL POC Glucose (mg/dL) 58 L (75-99) mg/dL POC Glu System Dispatcher ID Pilar Thorne Calcium (8.4-10.2) mg/dL Total Bilirubin (0.2-1.3) mg/dL AST (14-36) U/L ALT (9-52) U/L Alkaline Phosphatase (38-126) U/L Total Protein (6.3-8.2) g/dL Albumin (3.5-5.0) g/dL Urine Color Yellow Urine Appearance Clear (Clear) Urine pH 5.5 (5.0-8.0) Ur Specific George 1.015 (1.001-1.035) Urine Protein Negative (Negative) Urine Glucose (UA) Negative (Negative) Urine Ketones Negative (Negative) Urine Blood Negative (Negative) Urine Nitrite Negative (Negative) Urine Bilirubin Negative (Negative) Urine Urobilinogen <2.0 (<2.0) mg/dL Ur Leukocyte Esterase Negative (Negative) Influenza Type A RNA (Not Detectd) Influenza Type B (PCR) (Not Detectd) 06/08/17 06/08/17 06/08/17 Range/Units 21:14 21:14 21:34 WBC (3.8-10.6) k/uL RBC (3.80-5.40) m/uL Hgb (11.4-16.0) gm/dL Hct (34.0-46.0) % MCV (80.0-100.0) fL MCH (25.0-35.0) pg MCHC (31.0-37.0) g/dL RDW (11.5-15.5) % Plt Count (150-450) k/uL Neutrophils % % Lymphocytes % % Monocytes % % Eosinophils % % Basophils % % Neutrophils # (1.3-7.7) k/uL Lymphocytes # (1.0-4.8) k/uL Monocytes # (0-1.0) k/uL Eosinophils # (0-0.7) k/uL Basophils # (0-0.2) k/uL Sodium 141 (137-145) mmol/L Potassium 3.2 L (3.5-5.1) mmol/L Chloride 107 (98-107) mmol/L Carbon Dioxide 22 (22-30) mmol/L Anion Gap 12 mmol/L BUN 24 H (7-17) mg/dL Creatinine 1.05 H (0.52-1.04) mg/dL Est GFR (MDRD) Af Amer >60 (>60 ml/min/1.73 sqM) Est GFR (MDRD) Non-Af 59 (>60 ml/min/1.73 sqM) Glucose 52 L (74-99) mg/dL POC Glucose (mg/dL) 43 L (75-99) mg/dL POC Glu System Dispatcher ID Kenyatta Orta Calcium 9.8 (8.4-10.2) mg/dL Total Bilirubin 0.3 (0.2-1.3) mg/dL AST 25 (14-36) U/L ALT 33 (9-52) U/L Alkaline Phosphatase 55 (38-126) U/L Total Protein 6.8 (6.3-8.2) g/dL Albumin 4.5 (3.5-5.0) g/dL Urine Color Urine Appearance (Clear) Urine pH (5.0-8.0) Ur Specific George (1.001-1.035) Urine Protein (Negative) Urine Glucose (UA) (Negative) Urine Ketones (Negative) Urine Blood (Negative) Urine Nitrite (Negative) Urine Bilirubin (Negative) Urine Urobilinogen (<2.0) mg/dL Ur Leukocyte Esterase (Negative) Influenza Type A RNA Not Detected (Not Detectd) Influenza Type B (PCR) Not Detected (Not Detectd) - Radiology Data Radiology results: report reviewed Chest x-ray impression: No acute cardiopulmonary process. Disposition Clinical Impression: Nausea & vomiting, Hypoglycemia Disposition: HOME SELF-CARE Condition: Good Instructions: Acute Nausea and Vomiting (ED), Non-diabetic Hypoglycemia (ED) Additional Instructions: Please follow up with primary care provider within 1-2 days. Return to emergency department if symptoms should worsen or any concerns arise. Referrals: Slade Gonzalez MD [Primary Care Provider] - 1-2 days Time of Disposition: 22:28
[2017-06-08] MEDS ORDERED: POTASSIUM CHLORIDE ER 20 MEQ TAB.ER PO STA (22:15)
[2017-06-08 22:23] VITALS: BP 126/65; PULSE 104; TEMP 97.8
[2017-06-08 22:24] LABS: Glucose,Whole Blood 61 mg/dL (75-99)
== END 2017-06-08 22:32 | disposition home or self-care (01) ==
LOC: EC 20:27
DX: E11.649 Type 2 diabetes mellitus with hypoglycemia without coma (principal); R11.2 Nausea with vomiting, unspecified; J45.909 Unspecified asthma, uncomplicated; E07.9 Disorder of thyroid, unspecified; Z86.14 Personal history of Methicillin resistant Staphylococcus aureus infection; F32.9 Major depressive disorder, single episode, unspecified; Z79.3 Long term (current) use of hormonal contraceptives; Z79.899 Other long term (current) drug therapy; Z88.8 Allergy status to other drugs, medicaments and biological substances
CPT/HCPCS: 36415; 80053; 85025; 81003; 87502; 71046; 99284; 96374; 96361; J2405

== ENCOUNTER 2017-06-12 20:37 | Observation (INO) | payer OTHER ==
[2017-06-12 21:00] LABS: Glucose,Whole Blood 59 mg/dL (75-99)
[2017-06-12] MEDS ORDERED: DEXTROSE 50%-WATER 50 ML SYRINGE IVP STA (21:10)
[2017-06-12] MEDS ORDERED: ONDANSETRON 4 MG/2 ML VIAL IVP STA (21:15)
[2017-06-12] MEDS ORDERED: MORPHINE SULFATE 2 MG/ML SYRINGE IVP STA (21:15)
[2017-06-12] MEDS ORDERED: AMPICILLIN-SULBACTAM 3 GM in SODIUM CHLORIDE 0.9% 100 ML IVPB STA (21:17)
--- NOTE | 2017-06-12 21:18 | ED ---
General Adult HPI - General Chief complaint: Recheck/Abnormal Lab/Rx Stated complaint: HYPOGLYCEMIA Time Seen by Provider: 06/12/17 21:08 Source: patient, EMS, RN notes reviewed Mode of arrival: EMS Limitations: no limitations - History of Present Illness Initial comments: Patient is a pleasant 36-year-old female presenting to the emergency department with low blood sugar. EMS was called and had blood sugar in the 40s. Patient was given glucose packet. Patient felt better however starting to feel bad again. Blood sugar at this time is 66. Patient states she has not been eating well for the past several days. Patient had a tooth pulled on Saturday. Patient felt might be getting infected and did follow-up with her dentist again. Patient was started on antibiotics however has not been able to get them filled yet. Patient has had intermittent fevers. Patient has had nausea and vomiting. No abdominal pain. No diarrhea. - Related Data Home Medications Medication Instructions Recorded Confirmed Levalbuterol Nebulized [Xopenex 0.63 mg INHALATION RT-QID PRN 09/30/13 06/12/17 Nebulized] Montelukast [Singulair] 10 mg PO HS 09/30/13 06/12/17 Levalbuterol Hfa Inhaler [Xopenex 2 puff INHALATION RT-Q6H PRN 01/07/14 06/12/17 Hfa Inhaler] ARIPiprazole [Abilify] 5 mg PO QAM 05/04/14 06/12/17 Desvenlafaxine Succinate [Pristiq] 100 mg PO QAM 11/07/15 06/12/17 Medroxyprogesterone Acetate 150 mg IM Q90D 11/07/15 06/12/17 [Depo-Provera] traZODone HCL [Desyrel] 100 mg PO HS 11/21/15 06/12/17 Bisacodyl 5 mg PO DAILY PRN 06/28/16 06/12/17 Flunisolide [Aerospan] 2 puff INHALATION RT-BID 06/28/16 06/12/17 Omalizumab [Xolair] 300 mg SQ Q30D 06/28/16 06/12/17 Levothyroxine Sodium [Synthroid] 137 mcg PO DAILY 07/18/16 06/12/17 Famotidine [Pepcid] 20 mg PO BID 10/02/16 06/12/17 Metoprolol Tartrate [Lopressor] 12.5 mg PO BID 06/12/17 06/12/17 Previous Rx's Medication Instructions Recorded Ondansetron Odt [Zofran ODT] 4 mg PO Q8HR PRN #12 tab 01/31/17 HYDROcodone/APAP 7.5-325MG [[place] 1 tab PO Q6HR PRN #120 tab 04/23/17 7.5-325] Pregabalin [Lyrica] 75 mg PO TID #90 cap 04/23/17 Allergies Allergy/AdvReac Type Severity Reaction Status Date / Time albuterol AdvReac Rapid Verified 06/12/17 21:27 Heart Rate Review of Systems ROS Statement: Those systems with pertinent positive or pertinent negative responses have been documented in the HPI. ROS Other: All systems not noted in ROS Statement are negative. Constitutional: Reports: fever Eyes: Denies: eye pain ENT: Reports: dental pain. Denies: ear pain Respiratory: Denies: cough, dyspnea Cardiovascular: Denies: chest pain Endocrine: Reports: fatigue Gastrointestinal: Reports: nausea, vomiting. 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 PAST ULCER, HERNIATED DISC,FX RT FOOT IN DEC AND RE-FX 05/15/17 WEARING BOOT. CHRONIC BACK PAIN ,SEIZURES -2014 HAS SINCE BEEN TAKEN OFF MEDS, elevated blood sugar with steroid use and hypoglycemia when off steroids , "superficial blood clots" bilateral arms.CONSTIPATION History of Any Multi-Drug Resistant Organisms: MRSA Date of last positivie culture/infection: 08/25/14 MDRO Source:: Groin Past Surgical History: Bariatric Surgery, Cholecystectomy, Orthopedic Surgery, Tonsillectomy Additional Past Surgical History / Comment(s): tilt table test, lap band 2007; NASAL FX REPAIR , ORIF LT ELBOW X2, PAIN PROCEDURES Past Anesthesia/Blood Transfusion Reactions: Postoperative Nausea & Vomiting ( PONV) Past Psychological History: Anxiety, Depression Smoking Status: Never smoker Past Alcohol Use History: None Reported Past Drug Use History: None Reported - Past Family History Mother Family Medical History: Pneumonia Additional Family Medical History / Comment(s): Mother of pneumonia. Patient's son of brain cancer, last mother and father both liver cancer Son(s) Family Medical History: Cancer Additional Family Medical History / Comment(s): Son of brain cancer. Father Family Medical History: Cancer, Liver Disease Additional Family Medical History / Comment(s): Father has liver cancer with surgery. He has hepatitis. General Exam Limitations: no limitations General appearance: alert, in no apparent distress Head exam: Present: atraumatic Eye exam: Present: normal appearance ENT exam: Present: other (Left lower premolar with recent extraction and mild swelling. No evidence of obvious abscess. Minimal facial swelling and tenderness in the region.) Neck exam: Present: normal inspection Respiratory exam: Present: normal lung sounds bilaterally Cardiovascular Exam: Present: regular rate, normal rhythm GI/Abdominal exam: Present: soft. Absent: distended, tenderness, guarding, rebound, rigid, pulsatile mass Extremities exam: Present: normal inspection Back exam: Present: normal inspection Neurological exam: Present: alert Psychiatric exam: Present: normal affect, normal mood Skin exam: Present: normal color Course Vital Signs 06/12/17 06/12/17 20:39 22:10 Temperature 98.0 F Pulse Rate 101 H 108 H Respiratory 16 16 Rate Blood Pressure 118/63 O2 Sat by Pulse 100 100 Oximetry - Reevaluation(s) Reevaluation #1: 06/12/17 22:28 Patient does not meet sepsis criteria. Medical Decision Making - Medical Decision Making Patient reexamined and resting comfortably in bed. Patient is tolerating oral intake at this time. Blood sugar is now drop 3 times. Case was discussed in detail with Dr. mccoy, who will admit for Dr. Gonzalez. Patient updated. Dr. mccoy does request D10W and hypoglycemia protocol and scopolamine patch. - Lab Data Result diagrams: 06/12/17 21:16 06/12/17 21:16 Lab Results 06/12/17 06/12/17 06/12/17 Range/Units 20:54 21:07 21:09 WBC (3.8-10.6) k/uL RBC (3.80-5.40) m/uL Hgb (11.4-16.0) gm/dL Hct (34.0-46.0) % MCV (80.0-100.0) fL MCH (25.0-35.0) pg MCHC (31.0-37.0) g/dL RDW (11.5-15.5) % Plt Count (150-450) k/uL Neutrophils % % Lymphocytes % % Monocytes % % Eosinophils % % Basophils % % Neutrophils # (1.3-7.7) k/uL Lymphocytes # (1.0-4.8) k/uL Monocytes # (0-1.0) k/uL Eosinophils # (0-0.7) k/uL Basophils # (0-0.2) k/uL Sodium (137-145) mmol/L Potassium (3.5-5.1) mmol/L Chloride (98-107) mmol/L Carbon Dioxide (22-30) mmol/L Anion Gap mmol/L BUN (7-17) mg/dL Creatinine (0.52-1.04) mg/dL Est GFR (MDRD) Af Amer (>60 ml/min/1.73 sqM) Est GFR (MDRD) Non-Af (>60 ml/min/1.73 sqM) Glucose (74-99) mg/dL POC Glucose (mg/dL) 59 L 293 H 66 L (75-99) mg/dL POC Glu Tenant Relations Coordinator ID Fabiola Rizo, Shai Blunt, Shai Plasma Lactic Acid Yordan (0.7-2.0) mmol/L Calcium (8.4-10.2) mg/dL Total Bilirubin (0.2-1.3) mg/dL AST (14-36) U/L ALT (9-52) U/L Alkaline Phosphatase (38-126) U/L Total Protein (6.3-8.2) g/dL Albumin (3.5-5.0) g/dL 06/12/17 06/12/17 06/12/17 Range/Units 21:16 21:16 21:16 WBC 8.7 (3.8-10.6) k/uL RBC 3.81 (3.80-5.40) m/uL Hgb 12.6 (11.4-16.0) gm/dL Hct 36.0 (34.0-46.0) % MCV 94.5 (80.0-100.0) fL MCH 33.1 (25.0-35.0) pg MCHC 35.1 (31.0-37.0) g/dL RDW 14.0 (11.5-15.5) % Plt Count 199 (150-450) k/uL Neutrophils % 79 % Lymphocytes % 15 % Monocytes % 5 % Eosinophils % 0 % Basophils % 1 % Neutrophils # 6.8 (1.3-7.7) k/uL Lymphocytes # 1.3 (1.0-4.8) k/uL Monocytes # 0.4 (0-1.0) k/uL Eosinophils # 0.0 (0-0.7) k/uL Basophils # 0.1 (0-0.2) k/uL Sodium 145 (137-145) mmol/L Potassium 3.5 (3.5-5.1) mmol/L Chloride 110 H (98-107) mmol/L Carbon Dioxide 27 (22-30) mmol/L Anion Gap 8 mmol/L BUN 13 (7-17) mg/dL Creatinine 1.40 H (0.52-1.04) mg/dL Est GFR (MDRD) Af Amer 52 (>60 ml/min/1.73 sqM) Est GFR (MDRD) Non-Af 43 (>60 ml/min/1.73 sqM) Glucose 79 (74-99) mg/dL POC Glucose (mg/dL) (75-99) mg/dL POC Glu Tenant Relations Coordinator ID Plasma Lactic Acid Yordan 1.1 (0.7-2.0) mmol/L Calcium 9.1 (8.4-10.2) mg/dL Total Bilirubin 0.2 (0.2-1.3) mg/dL AST 22 (14-36) U/L ALT 30 (9-52) U/L Alkaline Phosphatase 52 (38-126) U/L Total Protein 6.1 L (6.3-8.2) g/dL Albumin 4.0 (3.5-5.0) g/dL 06/12/17 Range/Units 22:17 WBC (3.8-10.6) k/uL RBC (3.80-5.40) m/uL Hgb (11.4-16.0) gm/dL Hct (34.0-46.0) % MCV (80.0-100.0) fL MCH (25.0-35.0) pg MCHC (31.0-37.0) g/dL RDW (11.5-15.5) % Plt Count (150-450) k/uL Neutrophils % % Lymphocytes % % Monocytes % % Eosinophils % % Basophils % % Neutrophils # (1.3-7.7) k/uL Lymphocytes # (1.0-4.8) k/uL Monocytes # (0-1.0) k/uL Eosinophils # (0-0.7) k/uL Basophils # (0-0.2) k/uL Sodium (137-145) mmol/L Potassium (3.5-5.1) mmol/L Chloride (98-107) mmol/L Carbon Dioxide (22-30) mmol/L Anion Gap mmol/L BUN (7-17) mg/dL Creatinine (0.52-1.04) mg/dL Est GFR (MDRD) Af Amer (>60 ml/min/1.73 sqM) Est GFR (MDRD) Non-Af (>60 ml/min/1.73 sqM) Glucose (74-99) mg/dL POC Glucose (mg/dL) 42 L (75-99) mg/dL POC Glu Tenant Relations Coordinator NENO Renee Gonzalez Plasma Lactic Acid Yordan (0.7-2.0) mmol/L Calcium (8.4-10.2) mg/dL Total Bilirubin (0.2-1.3) mg/dL AST (14-36) U/L ALT (9-52) U/L Alkaline Phosphatase (38-126) U/L Total Protein (6.3-8.2) g/dL Albumin (3.5-5.0) g/dL Disposition Clinical Impression: Hypoglycemia, Dental infection Disposition: ADMITTED IP TO THIS HOSP Referrals: Slade Gonzalez MD [Primary Care Provider] - 1-2 days Decision Time: 22:28
[2017-06-12 21:22] LABS: Glucose,Whole Blood 293 mg/dL (75-99)
[2017-06-12 21:22] LABS: Glucose,Whole Blood 66 mg/dL (75-99)
[2017-06-12 21:29] LABS: Basophils # (A) 0.1 k/uL (0-0.2); Basophils % (A) 1 %; Eosinophils % (A) 0 %; HGB 12.6 gm/dL (11.4-16.0); Lymphocytes # (A) 1.3 k/uL (1.0-4.8); Lymphocytes % (A) 15 %; MCH 33.1 pg (25.0-35.0); MCHC 35.1 g/dL (31.0-37.0); MCV 94.5 fL (80.0-100.0); Mean Platelet Volume 6.9; Monocytes # (A) 0.4 k/uL (0-1.0); Monocytes % (A) 5 %; Neutrophils # (A) 6.8 k/uL (1.3-7.7); Neutrophils % (A) 79 %; Platelet Count 199 k/uL (150-450); RBC 3.81 m/uL (3.80-5.40); WBC 8.7 k/uL (3.8-10.6)
[2017-06-12] MEDS: SODIUM CHLORIDE 0.9% 500 ML IV SCH (21:36)
[2017-06-12 21:37] LABS: Calcium 9.1 mg/dL (8.4-10.2); Potassium 3.5 mmol/L (3.5-5.1); Total Bilirubin 0.2 mg/dL (0.2-1.3); Total Protein 6.1 g/dL (6.3-8.2)
[2017-06-12 22:17] LABS: Glucose,Whole Blood 42 mg/dL (75-99)
[2017-06-12] MEDS ORDERED: MORPHINE SULFATE 5 MG/ML SYRINGE IV PRN (22:28)
[2017-06-12] MEDS ORDERED: NALOXONE 0.4 MG/ML 1 ML VIAL IV PRN (22:28)
[2017-06-12] MEDS ORDERED: ONDANSETRON 4 MG/2 ML VIAL IVP PRN (22:28)
[2017-06-12] MEDS ORDERED: SCOPOLAMINE 1.5MG/72HR PATCH TRANSDERM STA (22:31)
[2017-06-12 23:11] LABS: Glucose,Whole Blood 52 mg/dL (75-99)
[2017-06-12] MEDS: DEXTROSE 10% IN WATER 1,000 ML IV ONE (23:17)
[2017-06-12] MEDS ORDERED: METOCLOPRAMIDE 5 MG/ML 2 ML VIAL IVP STA (23:25)
[2017-06-12 23:40] LABS: Glucose,Whole Blood 73 mg/dL (75-99)
[2017-06-13] LABS: Glucose,Whole Blood 68 mg/dL (75-99)
[2017-06-13 00:22] LABS: Glucose,Whole Blood 84 mg/dL (75-99)
[2017-06-13 01:09] LABS: Glucose,Whole Blood 103 mg/dL (75-99)
[2017-06-13] MEDS: SODIUM CHLORIDE 0.9% 500 ML IV SCH (01:21)
[2017-06-13] MEDS: MORPHINE SULFATE 2 MG/ML SYRINGE IV PRN ×3 (01:22→09:37)
[2017-06-13 02:09] LABS: Glucose,Whole Blood 56 mg/dL (75-99)
[2017-06-13 02:47] LABS: Glucose,Whole Blood 106 mg/dL (75-99)
[2017-06-13 04:13] LABS: Glucose,Whole Blood 134 mg/dL (75-99)
[2017-06-13 05:29] LABS: Glucose,Whole Blood 139 mg/dL (75-99)
[2017-06-13 07:31] LABS: Glucose,Whole Blood 111 mg/dL (75-99)
--- NOTE | 2017-06-13 08:52 | P.HPIM ---
History of Present Illness H&P Date: 06/13/17 Chief Complaint: Hypoglycemia HISTORY OF PRESENT ILLNESS: 36-year-old female patient of Dr. Gonzalez with chronic stable medical conditions include diet-controlled diabetes, peptic ulcer disease, asthma, bulimia, herniated disc, LAP-BAND, cervical and back pain, superficial blood clots in both arms who presented to the emergency department with low blood sugar. EMS was called and found patient's blood sugar in the 40s patient was transported here as they have given her dose of glucagon she began to feel better and started to feel bad shortly thereafter. On arrival blood sugar was 66. States she has not been eating well for the past several days had a tooth pulled on Saturday. [place] it was getting infected and didn't follow-up with her dentist she was started on antibiotics and was unable to get the antibiotic filled. Has had intermittent fevers and nausea and vomiting. No abdominal pain no diarrhea. Admitted for persistent hypoglycemia REVIEW OF SYSTEMS GEN.: [ Tired] EYES: [None] HEENT: [None] NECK: [None] RESPIRATORY: [Some shortness of breath] CARDIOVASCULAR: [Chest pain yesterday] GASTROINTESTINAL: [None] GENITOURINARY: [None] MUSCULOSKELETAL: [Back pain] LYMPHATICS: [None] HEMATOLOGICAL: [None] PSYCHIATRY: [None] NEUROLOGICAL: [None] PAST MEDICAL HISTORY Past medical history: Diet-controlled diabetes, hypoglycemia, peptic ulcer disease, asthma, bulimia, herniated disc, LAP-BAND, cervical and back pain, chronic pain to the spine, superficial blood clot in both arms. Past surgical history: Early cystectomy, orthopedic surgery, tonsillectomy, ORIF of the left elbow, multiple pain procedures, laparoscopic cholecystectomy, tonsillectomy. Past psychological history: Anxiety, depression SOCIAL HISTORY: Additional psychological/social history: None Smoking use history: Never Alcohol use history: Denies Drug use history: Denies Marital status: Living situation: Lives with HER-2 daughters Work history: FAMILY HISTORY: Family history of cancer, son also had brain cancer.: ALLERGIES: ALBUTEROL HOME MEDICATION: Metoprolol tartrate 12.5 mg by mouth twice a day Depo-Provera 150 mg IM every 90 days Levothyroxine sodium 137 g by mouth daily Xopenex 0.63 mg inhalation 4 times a day when necessary Xopenex HFA inhaler every 6 hours when necessary Hydrocodone/APAP 7.5-325 mg 1 tablet by mouth every 6 hours when necessary Flunisolide 2 puffs inhalation twice a day Famotidine 20 mg by mouth twice a day Pristiq 100 mg by mouth every morning Bisacodyl 5 mg by mouth daily when necessary Abilify 5 mg by mouth every morning doesn't run 100 mg by mouth at bedtime N 75 mg by mouth 3 times a day Ondansetron ODT 4 mg by mouth every 8 hours when necessary Xolair 300 mg subcu every 30 days Singulair 10 mg by mouth at bedtime VITAL SIGNS: [Temperature 98.3, pulse 93, respirations 16, blood pressure 97/53 , oxygen saturation 100% on room air.. BMI 29.3] GENERAL: [Average built, sitting up, comfortable]. EYES: [Pupils equal. Conjunctiva abdon]l. HENT: [Normocephalic,External appearance of nose and ears normal, oral cavity grossly normal]. NECK: [JVD not raised; masses not palpable]. HEART: [First and second heart sounds are normal; no edema]. LUNGS:[ Respiratory rate normal; clear to auscultation]. ABDOMEN: [Soft, nontender, liver spleen not palpable, no masses palpable]. LYMPHATICS: [No lymph nodes palpable in the axilla and neck]. PSYCH: [Alert and oriented x3; mood and affect abdon]l. NEUROLOGICAL: [Cranial nerves grossly intact; no facial asymmetry, power and sensation grossly intact]. INVESTIGATIONS: CBC grossly unremarkable, chloride 110, creatinine 1.40. ASSESSMENT: -Acute hypoglycemia from poor oral intake for persistent nausea and vomiting from infected tooth -Acute renal failure, likely prerenal, creatinine up to 1.4 from poor oral intake -Moderate persistent asthma, controlled. -Peptic ulcer disease. -Chronic bulimia. -Chronic low back pain from herniated disc. -Hypothyroidism. PLAN: We will order home medications, initiate D10 drip, serial glucose monitoring. Plan of care discussed with the patient bedside she is in agreement we will follow closely. PATIENT COORDINATOR STATEMENT: Patient was seen and examined by nurse practitioner Beth Bhatti and all elements of the case were discussed with attending Dr. English. Past Medical History Past Medical History: Asthma, Diabetes Mellitus, Seizure Disorder, Thyroid Disorder Additional Past Medical History / Comment(s): TACHYCARDIA, peptic ulcers, anemia."HAS BEEN ON VENTILATOR IN PAST D/T SEVERE ASTHMA ATTACK, BULEMIA-STATES GETTING BETTER, CONSTIPATION. PAST ULCER, HERNIATED DISC,FX RT FOOT IN DEC AND RE-FX 05/15/17 .CONSTIPATION History of Any Multi-Drug Resistant Organisms: MRSA Date of last positivie culture/infection: 08/25/14 MDRO Source:: Groin Past Surgical History: Bariatric Surgery, Cholecystectomy, Orthopedic Surgery, Tonsillectomy Additional Past Surgical History / Comment(s): tilt table test, lap band 2007; NASAL FX REPAIR , ORIF LT ELBOW X2, PAIN PROCEDURES Past Anesthesia/Blood Transfusion Reactions: Postoperative Nausea & Vomiting ( PONV) Past Psychological History: Anxiety, Depression Additional Psychological History / Comment(s): PT SEES A DR FOR DEPRESSION, ANXIETY,BULEMIA. PT LOST A SON TO BRAIN CANCER,LOST HER MOM TO PNE AND HER DAD HAS LIVER CANCER with liver surgery and is better. SHE CURRENTLY LIVES WITH HER 2 DAUGHTERS TAKES RX TO HELP HER SLEEP "HAS NIGHT TERRORS". PT DENIES ANY THOUGHTS OF HARMING SELF. Smoking Status: Never smoker Past Alcohol Use History: None Reported Past Drug Use History: None Reported Additional Drug Use History / Comment(s): Patient lives with 2 daughters at home - Past Family History Mother Family Medical History: Pneumonia Additional Family Medical History / Comment(s): Mother of pneumonia. Patient's son of brain cancer, last mother and father both liver cancer Son(s) Family Medical History: Cancer Additional Family Medical History / Comment(s): Son of brain cancer. Father Family Medical History: Cancer, Liver Disease Additional Family Medical History / Comment(s): Father has liver cancer with surgery. He has hepatitis. Medications and Allergies Home Medications Medication Instructions Recorded Confirmed Type Levalbuterol Nebulized [Xopenex 0.63 mg INHALATION RT-QID PRN 09/30/13 06/12/17 History Nebulized] Montelukast [Singulair] 10 mg PO HS 09/30/13 06/12/17 History Levalbuterol Hfa Inhaler [Xopenex 2 puff INHALATION RT-Q6H PRN 01/07/14 History Hfa Inhaler] ARIPiprazole [Abilify] 5 mg PO QAM 05/04/14 06/12/17 History Desvenlafaxine Succinate [Pristiq] 100 mg PO QAM 11/07/15 06/12/17 History Medroxyprogesterone Acetate 150 mg IM Q90D 11/07/15 06/12/17 History [Depo-Provera] traZODone HCL [Desyrel] 100 mg PO HS 11/21/15 06/12/17 History Bisacodyl 5 mg PO DAILY PRN 06/28/16 06/12/17 History Flunisolide [Aerospan] 2 puff INHALATION RT-BID 06/28/16 06/12/17 History Omalizumab [Xolair] 300 mg SQ Q30D 06/28/16 06/12/17 History Levothyroxine Sodium [Synthroid] 137 mcg PO DAILY 07/18/16 06/12/17 History Famotidine [Pepcid] 20 mg PO BID 10/02/16 06/12/17 History Ondansetron Odt [Zofran ODT] 4 mg PO Q8HR PRN #12 tab 01/31/17 06/12/17 Rx HYDROcodone/APAP 7.5-325MG [[place] 1 tab PO Q6HR PRN #120 tab 04/23/17 06/12/17 Rx 7.5-325] Pregabalin [Lyrica] 75 mg PO TID #90 cap 04/23/17 06/12/17 Rx Metoprolol Tartrate [Lopressor] 12.5 mg PO BID 06/12/17 06/12/17 History Allergies Allergy/AdvReac Type Severity Reaction Status Date / Time albuterol AdvReac Rapid Verified 06/12/17 21:27 Heart Rate Physical Exam Vitals: Vital Signs Temp Pulse Pulse Resp BP BP Pulse Ox 06/13/17 07:00 98.3 F 93 16 97/53 100 06/13/17 00:00 97.5 F L 73 16 126/84 98 06/12/17 23:13 98 F 103 H 18 127/68 100 06/12/17 22:10 108 H 16 100 06/12/17 20:39 98.0 F 101 H 16 118/63 100 Intake and Output 06/12/17 06/13/17 06/13/17 22:59 06:59 14:59 Intake Total 300 Output Total 2 Balance 298 Intake: Oral 300 Output: Urine 2 Other: Voiding Method Toilet # Voids 2 Weight 72.575 kg Results CBC & Chem 7: 06/12/17 21:16 06/12/17 21:16 Labs: Abnormal Lab Results - Last 24 Hours (Table) 06/12/17 06/12/17 06/12/17 Range/Units 20:54 21:07 21:09 Chloride (98-107) mmol/L Creatinine (0.52-1.04) mg/dL POC Glucose (mg/dL) 59 L 293 H 66 L (75-99) mg/dL Total Protein (6.3-8.2) g/dL 06/12/17 06/12/17 06/12/17 Range/Units 21:16 22:17 23:10 Chloride 110 H (98-107) mmol/L Creatinine 1.40 H (0.52-1.04) mg/dL POC Glucose (mg/dL) 42 L 52 L (75-99) mg/dL Total Protein 6.1 L (6.3-8.2) g/dL 06/12/17 06/12/17 06/13/17 Range/Units 23:38 23:58 00:56 Chloride (98-107) mmol/L Creatinine (0.52-1.04) mg/dL POC Glucose (mg/dL) 73 L 68 L 103 H (75-99) mg/dL Total Protein (6.3-8.2) g/dL 06/13/17 06/13/17 06/13/17 Range/Units 02:03 02:43 04:08 Chloride (98-107) mmol/L Creatinine (0.52-1.04) mg/dL POC Glucose (mg/dL) 56 L 106 H 134 H (75-99) mg/dL Total Protein (6.3-8.2) g/dL 06/13/17 06/13/17 Range/Units 05:23 07:28 Chloride (98-107) mmol/L Creatinine (0.52-1.04) mg/dL POC Glucose (mg/dL) 139 H 111 H (75-99) mg/dL Total Protein (6.3-8.2) g/dL Thrombosis Risk Factor Assmnt - Choose All That Apply Any of the Below Risk Factors Present?: Yes Each Factor Represents 1 point: Oral contraceptives or hormone replacement therapy, Serious lung disease incl. pneumonia (< 1month) Other Risk Factors: No Other congenital or acquired thrombophilia - If yes, enter type in comment: No Thrombosis Risk Factor Assessment Total Risk Factor Score: 2 Thrombosis Risk Factor Assessment Level: Low Risk
[2017-06-13] MEDS: PANTOPRAZOLE 40 MG/10 ML VIAL IV SCH (09:40)
[2017-06-13] MEDS: AMPICILLIN-SULBACTAM 3 GM in SODIUM CHLORIDE 0.9% 100 ML IVPB SCH ×3 (09:40→23:18)
[2017-06-13] MEDS ORDERED: BISACODYL 5 MG TABLET.DR PO PRN (11:04)
[2017-06-13] MEDS ORDERED: LEVALBUTEROL INHALATION PRN ×2 (11:04)
[2017-06-13] MEDS ORDERED: OMALIZUMAB 150 MG VIAL SQ SCH (11:15)
[2017-06-13] MEDS ORDERED: MEDROXYPROGESTERONE ACETATE 150 MG IM SCH (11:15)
[2017-06-13 11:44] VITALS: BMI 29.2
[2017-06-13 12:34] LABS: Glucose,Whole Blood 98 mg/dL (75-99)
[2017-06-13] MEDS: LEVOTHYROXINE 137 MCG TAB PO SCH (12:41)
[2017-06-13] MEDS: DESVENLAFAXINE SUCCINATE 50 MG TAB.ER.24H PO SCH (12:41)
[2017-06-13] MEDS: ARIPiprazole 5 MG TAB PO SCH (12:41)
[2017-06-13] MEDS: FAMOTIDINE 20 MG TAB PO SCH ×2 (12:41→21:39)
[2017-06-13] MEDS: METOPROLOL TARTRATE 12.5 MG TAB PO SCH ×2 (12:41→21:39)
[2017-06-13] MEDS: DEXTROSE 10% IN WATER 1,000 ML IV ONE (12:42)
[2017-06-13] MEDS: PREGABALIN 75 MG CAP PO SCH ×3 (12:47→21:40)
[2017-06-13] MEDS: DEXTROSE 10% IN WATER 1,000 ML in EMPTY BAG 1 BAG IV SCH (12:48)
[2017-06-13 13:52] LABS: Glucose,Whole Blood 90 mg/dL (75-99)
[2017-06-13] MEDS: HYDROcodone/APAP 7.5-325MG 1 EACH TAB PO PRN ×2 (14:15→22:08)
[2017-06-13 15:09] LABS: Glucose,Whole Blood 118 mg/dL (75-99)
[2017-06-13 16:28] LABS: Glucose,Whole Blood 113 mg/dL (75-99)
--- NOTE | 2017-06-13 16:46 | HP ---
HISTORY AND PHYSICAL DATE OF SERVICE: 06/13/17 HISTORY OF PRESENTING COMPLAINT: The patient had infected tooth removed, still has inflammation, not able to eat much, started having nausea and vomiting, unable to take any food down. The patient presented to the ER with blood sugars running down to the 40s. The patient was started on hypoglycemia protocol including D10 drip. The patient started to eat a bit orally. PHYSICAL EXAMINATION: Temperature 98.3 pulse 93, respiration 16, blood pressure 97/53, pulse ox 100% on room air. Lungs are clear. Cardiovascular: First and second sounds are normal. Psych: AO x3. INVESTIGATIONS: Accu-Cheks noted. Initially on presentation patient's sugar was down to 42. The patient's creatinine is 1.4 from baseline 1.0. ASSESSMENT: 1. Acute hypoglycemia from poor oral intake from persistent nausea and vomiting from infected tooth. 2. Acute renal failure. Creatinine up to 1.4 from poor oral intake, likely prerenal. 3. Moderate persistent asthma, stable. 4. Chronic bulimia. 5. Chronic low back pain from herniated disc. 6. Hypothyroidism. PLAN: Patient is put on a hypoglycemia protocol including D10 drip. The patient encouraged to be out of bed. Patient also be given IV fluids and repeat electrolytes in the morning. Care was discussed with the patient. MMODL / IJN: [id number] /
[2017-06-13 17:26] LABS: Glucose,Whole Blood 105 mg/dL (75-99)
[2017-06-13 18:29] LABS: Hemoglobin A1C 4.7 % (4.0-6.0)
[2017-06-13] MEDS: BUDESONIDE 0.5 MG/2 ML NEBU INHALATION SCH (19:30)
[2017-06-13 21:18] LABS: Glucose,Whole Blood 117 mg/dL (75-99)
[2017-06-13] MEDS: MONTELUKAST 10 MG TAB PO SCH (21:39)
[2017-06-13] MEDS: traZODone HCL 100 MG TAB PO SCH (21:40)
[2017-06-14 01:12] LABS: Glucose,Whole Blood 98 mg/dL (75-99)
[2017-06-14] MEDS: DEXTROSE 10% IN WATER 1,000 ML in EMPTY BAG 1 BAG IV SCH (02:30)
[2017-06-14] MEDS: HYDROcodone/APAP 7.5-325MG 1 EACH TAB PO PRN ×3 (04:29→19:06)
[2017-06-14 05:14] LABS: Glucose,Whole Blood 95 mg/dL (75-99)
[2017-06-14] MEDS: BUDESONIDE 0.5 MG/2 ML NEBU INHALATION SCH ×2 (08:10→20:25)
[2017-06-14] MEDS: AMPICILLIN-SULBACTAM 3 GM in SODIUM CHLORIDE 0.9% 100 ML IVPB SCH ×2 (08:27→17:10)
[2017-06-14] MEDS: ENOXAPARIN 40 MG/0.4 ML SYRINGE SQ SCH (08:27)
[2017-06-14] MEDS: FAMOTIDINE 20 MG TAB PO SCH (08:28)
[2017-06-14] MEDS: ARIPiprazole 5 MG TAB PO SCH (08:28)
[2017-06-14] MEDS: METOPROLOL TARTRATE 12.5 MG TAB PO SCH ×2 (08:28→21:38)
[2017-06-14] MEDS: DESVENLAFAXINE SUCCINATE 50 MG TAB.ER.24H PO SCH (08:28)
[2017-06-14] MEDS: PREGABALIN 75 MG CAP PO SCH ×3 (08:28→21:38)
[2017-06-14] MEDS: PANTOPRAZOLE 40 MG/10 ML VIAL IV SCH (08:28)
[2017-06-14] MEDS: LEVOTHYROXINE 137 MCG TAB PO SCH (08:33)
[2017-06-14 09:39] LABS: Glucose,Whole Blood 88 mg/dL (75-99)
[2017-06-14 12:39] LABS: Glucose,Whole Blood 107 mg/dL (75-99)
[2017-06-14] MEDS: NAPROXEN 250 MG TAB PO SCH ×2 (17:33→23:28)
[2017-06-14 17:40] LABS: Glucose,Whole Blood 94 mg/dL (75-99)
--- NOTE | 2017-06-14 18:09 | PN ---
PROGRESS NOTE DATE OF SERVICE: 06/14/2017. PRESENTING COMPLAINT: Hypoglycemia. INTERVAL HISTORY: This is a patient with recurrent hypoglycemia, now with an infected tooth. Remains on D10 drip. Started to eat better. Still on D10. Sugars are running around 90s. REVIEW OF SYSTEMS: Done for constitutional, cardiovascular, GI, pulmonary, musculoskeletal; relevant findings as above. CURRENT MEDICATIONS: Current medications are reviewed that include a D10 drip. PHYSICAL EXAMINATION: Temperature 99.7, pulse 90, respiration 18, blood pressure 106/62, pulse ox 97% on room air. HEENT: External appearance of nose and ears normal. Oral cavity: Some tenderness at infected tooth. EYES: Pupils equal. Conjunctivae normal. NECK: JVD not raised. Mass not palpable. RESPIRATORY: Effort normal. Lungs are clear. CARDIOVASCULAR: First and second sounds normal. No edema. ABDOMEN: Soft, non-tender. Liver and spleen not palpable. PSYCHIATRY: Alert and oriented x3. Mood and affect normal. INVESTIGATIONS: Accu-Cheks 98, 95, 88, 107. ASSESSMENT: 1. Recurrent persistent hypoglycemia, initially from persistent nausea, vomiting in a patient who has an infected tooth, slowly improving. 2. Acute renal failure, likely prerenal. Now creatinine has come down from 1.4 to 1. 3. Moderate persistent asthma, stable. 4. Chronic bulimia. 5. Chronic low back pain from herniated disc. 6. Hypothyroidism. PLAN: Will keep the patient on D10. Will stop in at 4 a.m. Patient encouraged to increase her oral intake. I am hoping by tomorrow patient should be able to go home. MMODL / IJN: [id number] /
[2017-06-14 21:05] LABS: Glucose,Whole Blood 121 mg/dL (75-99)
[2017-06-14] MEDS: MONTELUKAST 10 MG TAB PO SCH (21:38)
[2017-06-14] MEDS: traZODone HCL 100 MG TAB PO SCH (21:38)
[2017-06-15] MEDS: AMPICILLIN-SULBACTAM 3 GM in SODIUM CHLORIDE 0.9% 100 ML IVPB SCH ×3 (00:09→15:53)
[2017-06-15 01:16] LABS: Glucose,Whole Blood 108 mg/dL (75-99)
[2017-06-15] MEDS: DEXTROSE 10% IN WATER 1,000 ML in EMPTY BAG 1 BAG IV SCH (03:54)
[2017-06-15 04:02] LABS: Glucose,Whole Blood 80 mg/dL (75-99)
[2017-06-15 05:39] LABS: Glucose,Whole Blood 98 mg/dL (75-99)
[2017-06-15] MEDS: LEVOTHYROXINE 137 MCG TAB PO SCH (06:20)
[2017-06-15] MEDS: BUDESONIDE 0.5 MG/2 ML NEBU INHALATION SCH ×2 (07:42→19:45)
[2017-06-15] MEDS: NAPROXEN 250 MG TAB PO SCH ×3 (08:49→20:36)
[2017-06-15] MEDS: DESVENLAFAXINE SUCCINATE 50 MG TAB.ER.24H PO SCH (08:50)
[2017-06-15] MEDS: HYDROcodone/APAP 7.5-325MG 1 EACH TAB PO PRN ×3 (08:50→21:53)
[2017-06-15] MEDS: PANTOPRAZOLE 40 MG TABLET PO SCH (08:51)
[2017-06-15] MEDS: ENOXAPARIN 40 MG/0.4 ML SYRINGE SQ SCH (08:51)
[2017-06-15] MEDS: ARIPiprazole 5 MG TAB PO SCH (08:51)
[2017-06-15] MEDS: METOPROLOL TARTRATE 12.5 MG TAB PO SCH ×2 (08:51→20:38)
[2017-06-15] MEDS: PREGABALIN 75 MG CAP PO SCH ×3 (08:54→20:36)
[2017-06-15 09:07] LABS: Glucose,Whole Blood 110 mg/dL (75-99)
[2017-06-15 13:21] LABS: Glucose,Whole Blood 93 mg/dL (75-99)
--- NOTE | 2017-06-15 15:53 | XR ---
EXAMINATION TYPE: XR abdomen 1V DATE OF EXAM: 06/15/2017 CLINICAL DATA: 36-year-old female with abdominal pain, [facility] COMPARISON: 03/22/2017 FINDINGS: Lung bases are clear. No evidence for free intraperitoneal air. (Device appropriately positioned. Cholecystectomy clips. Moderate to large stool burden. No dilated small bowel or air-fluid levels. Scattered air and stool seen throughout the colon extendi ng distally into the rectum. No suspicious calcifications identified. Stable phlebolith left hemipelvis. IMPRESSION: Moderate to large stool burden. Query constipation. No evidence of bowel obstruction or free intraper itoneal air.
[2017-06-15] MEDS: LACTULOSE 20 GM/30 ML CUP PO SCH ×3 (15:54→20:35)
[2017-06-15 17:27] LABS: Glucose,Whole Blood 96 mg/dL (75-99)
[2017-06-15] MEDS: ONDANSETRON 4 MG TAB PO PRN (17:44)
[2017-06-15] MEDS: traZODone HCL 100 MG TAB PO SCH (20:36)
[2017-06-15] MEDS: MONTELUKAST 10 MG TAB PO SCH (20:36)
[2017-06-15] MEDS: DOCUSATE 100 MG CAP PO SCH ×2 (20:36→21:53)
[2017-06-15] MEDS: AMOXIC-POT CLAV 875-125MG 1 EACH TAB PO SCH (20:37)
[2017-06-15 20:44] LABS: Glucose,Whole Blood 100 mg/dL (75-99)
[2017-06-16 01:10] LABS: Glucose,Whole Blood 113 mg/dL (75-99)
[2017-06-16 05:20] LABS: Glucose,Whole Blood 92 mg/dL (75-99)
[2017-06-16] MEDS: LEVOTHYROXINE 137 MCG TAB PO SCH (06:23)
[2017-06-16] MEDS: ONDANSETRON 4 MG TAB PO PRN (06:23)
[2017-06-16 07:24] VITALS: RESP 18
[2017-06-16] MEDS: BUDESONIDE 0.5 MG/2 ML NEBU INHALATION SCH (07:24)
[2017-06-16] MEDS: PREGABALIN 75 MG CAP PO SCH (08:30)
[2017-06-16] MEDS: HYDROcodone/APAP 7.5-325MG 1 EACH TAB PO PRN (08:30)
[2017-06-16] MEDS: DESVENLAFAXINE SUCCINATE 50 MG TAB.ER.24H PO SCH (08:31)
[2017-06-16] MEDS: ENOXAPARIN 40 MG/0.4 ML SYRINGE SQ SCH (08:31)
[2017-06-16] MEDS: AMOXIC-POT CLAV 875-125MG 1 EACH TAB PO SCH (08:31)
[2017-06-16] MEDS: DOCUSATE 100 MG CAP PO SCH (08:31)
[2017-06-16] MEDS: PANTOPRAZOLE 40 MG TABLET PO SCH (08:32)
[2017-06-16] MEDS: NAPROXEN 250 MG TAB PO SCH (08:32)
[2017-06-16] MEDS: LACTULOSE 20 GM/30 ML CUP PO SCH ×2 (08:32→10:57)
[2017-06-16] MEDS: ARIPiprazole 5 MG TAB PO SCH (08:32)
[2017-06-16] MEDS: METOPROLOL TARTRATE 12.5 MG TAB PO SCH (08:32)
--- NOTE | 2017-06-16 08:56 | PN ---
PROGRESS NOTE DATE OF SERVICE: 06/15/2017 This 36-year-old woman who was admitted with recurrent persistent hypoglycemia, also complaining of right-sided lower abdominal pain. The patient also had history of constipation. No chest pain. No palpitations. No fever. EXAM: Alert and oriented times three. Pulse 96, blood pressure 124/70, respirations 16, temperature 97 degrees, pulse ox 98% on room air. HEENT: Conjunctivae normal. Neck: Jugular venous distention. Cardiovascular systems: S1, S2 muffled. Respiration: Breath sounds diminished in the bases. No rhonchi no crackles. ABDOMEN: Soft. Minimal tenderness right lower quadrant. No mass palpable. Central nervous system: No focal deficits. LABS: Creatinine 1.40. ASSESSMENT: 1. Recurrent persistent hypoglycemia possibly from nausea, vomiting, and diminished p.o. intake. 2. Acute renal failure possibly prerenal from dehydration. 3. Right lower quadrant abdominal pain. 4. Moderate persistent asthma, currently stable. 5. Chronic bulimia. 6. Chronic low back pain from herniated disc. 7. Hypothyroidism. RECOMMENDATIONS AND DISCUSSION: Recommend to continue current medications and management and symptomatic treatment. Otherwise I would recommend a plain x-ray abdomen and treatment for constipation. See orders for details. Further recommendations to follow. Prognosis guarded. MMODL / IJN: [id number] /
[2017-06-16 09:06] LABS: Glucose,Whole Blood 94 mg/dL (75-99)
[2017-06-16 13:32] LABS: Glucose,Whole Blood 98 mg/dL (75-99)
[2017-06-16 14:48] VITALS: BP 130/60; PULSE 96; TEMP 98.5
--- NOTE | 2017-06-18 11:19 | DS ---
DISCHARGE SUMMARY DATE OF SERVICE: 06/17/2017. FINAL DIAGNOSES: 1. Recurrent persistent hypoglycemia possibly from nausea, vomiting, diminished p.o. intake. 2. Acute renal failure, possibly prerenal from dehydration. 3. Right lower quadrant abdominal pain secondary for constipation. 4. Moderate persistent asthma, currently stable. 5. Chronic bulimia. 6. History of low back pain and pain from herniated disc. 7. Hypothyroidism. DISCHARGED DISPOSITION: The patient will be discharged in stable condition with guarded prognosis. HISTORY OF PRESENT ILLNESS: This is a 36-year-old woman with a past medical history of multiple medical problems, admitted with multiple symptomatology including hypoglycemia as well as back pain and abdominal pain. The patient treated symptomatically. Patient improved significantly. Recommended a close outpatient followup. On exam, vitals are stable. CARDIOVASCULAR: S1, S2. ABDOMEN: Soft, no edema. CENTRAL NERVOUS SYSTEM: No focal deficits. DISCHARGE ORDERS: Diet is cardiac. Activity limited until followup. MEDICATIONS ARE: 1. Augmentin 875 mg p.o. b.i.d. for 5 days. 2. Abilify 5 mg q.a.m. 3. Bisacodyl 5 mg p.o. daily. 4. Pristiq 100 mg p.o. q.a.m. 5. Colace 100 mg p.o. b.i.d. 6. Pepcid 20 mg b.i.d. 7. Aerospan 2 puffs daily. 8. Poth 1 tablet q.6 p.r.n. 9. Xopenex HFA 1 to 2 puffs q.i.d. p.r.n. 10.Xopenex inhaler p.r.n. 11.Synthroid 137 mcg p.o. daily. 12.Medroxyprogesterone 50 mg IM q.9 days. 13.Lopressor 12.5 mg p.o. b.i.d. 14.Singular 10 mg q.h.s. 15.Xolair 300 mg subcu 30 days. 16.Zofran ODT 4 mg q.8 p.r.n. 17.Lyrica 70 mg p.o. t.i.d. 18.Desyrel 100 mg p.o. q.h.s.. Once again, the patient will be discharged in a stable condition with guarded prognosis. MMODL / IJN: [id number] /
== END 2017-06-16 15:33 | disposition home or self-care (01) ==
LOC: EC 20:37 → INTOOBSV 22:28 → 4MS4W 22:28
PROVIDERS: ADMIT Hospitalist; ATTEND Hospitalist
DX: E11.649 Type 2 diabetes mellitus with hypoglycemia without coma (principal); N17.9 Acute kidney failure, unspecified; E03.9 Hypothyroidism, unspecified; F50.2 Bulimia nervosa; K59.00 Constipation, unspecified; J45.40 Moderate persistent asthma, uncomplicated; G40.909 Epilepsy, unspecified, not intractable, without status epilepticus; G89.29 Other chronic pain; M54.5 Low back pain; Z79.899 Other long term (current) drug therapy; Z88.8 Allergy status to other drugs, medicaments and biological substances; Z87.11 Personal history of peptic ulcer disease; Z86.14 Personal history of Methicillin resistant Staphylococcus aureus infection; Z86.718 Personal history of other venous thrombosis and embolism; Z98.84 Bariatric surgery status; F41.9 Anxiety disorder, unspecified; F32.9 Major depressive disorder, single episode, unspecified; K04.7 Periapical abscess without sinus; Z79.890 Hormone replacement therapy
CPT/HCPCS: 96376 ×2; 96361 ×2; 96366 ×3; 96372 ×2; 96375 ×2; 96365; 99285; 36415; 94640 ×5; 80053; 83605; 85025; 87040; 83036; 74018; G0378 ×5; J2765; J2405; J1650 ×2; J2270 ×2; J0295 ×4; C9113 ×2

== ENCOUNTER → 2017-06-18 | Outpatient (CLI) | payer OTHER ==
[2017-06-18 12:52] VITALS: RESP 16
[2017-06-18 13:08] VITALS: BP 137/74; PULSE 94
--- NOTE | 2017-06-18 13:15 | P.PN ---
Progress Note - Text Progress Note Date: 06/18/17 Patient returns for followup for chronic mid-back pain with radiation to chest, improved after thoracic OMA[place]A in May. Patient was recently diagnosed with cervical CA and is planning to undergo multiple biopsies/surgeries beginning in June. Patient continues on [place]oll[place] and Lyrica medications for pain with some relief. Patient denies adverse drug effects from medications. Today, pt denies new-onset weakness, bowel/bladder incontinence, or any other signs or symptoms of cauda equina syndrome. There are no signs of acute intoxication, and no indications of medication diversion or overuse. In addition to above, 13-point review of systems is also negative for chest pain , shortness of breath, changes in vision, changes in hearing, new onset weakness , abdominal pain, diarrhea, extreme fatigue, malaise, fever, skin changes, homicidal or suicidal ideation, or bowel or bladder incontinence. Vital Signs: Reviewed in EMR Gen: WDWN, AAOx3, NAD HEENT: NCAT, EOMI, hearing grossly normal Pulm: resp unlabored Abd: soft, NT, ND Neck: supple, trachea midline ROM in flexion thoracic spine: reduced ROM in extension thoracic spine: reduced Thoracic paravertebral tenderness: + Thoracic facet tenderness: + L side > R side Spurling's: neg Neuro: CN II-XII grossly intact, muscle strength lower extremities PRESERVED Imaging: Reviewed in EMR Assessment: 1. thoracic disc herniations 2. thoracic radiculitis 3. chronic pain syndrome 4. cervical cancer Plan: 1. Explanation: Opioid and psychological risk scores were reviewed. Diagnoses , prognoses, and multiple treatment options including but not limited to physical therapy, interventional therapies, adjuvant medical therapies, narcotic medication therapies, and surgery were discussed with the patient and all questions were answered to the patient's satisfaction. 2. Opioid agreement: Patient has previously signed narcotic agreement, and was orally counseled to not overuse, abuse, divert, or cell medications, and to take them as prescribed by only 1 healthcare provider. The patient was also counseled to store opioid medications in a safe and preferably locked location. Patient was also counseled against driving or operating heavy equipment while using narcotic medications and also to not use alcohol or any illicit or recreational drugs. The patient verbalized understanding that lack of compliance with any of the above and likely result in failure to renew narcotic prescriptions, possible discharge from the clinic, and possible legal ramifications thereafter if indicated. 3. Counseling: The patient was counseled extensively on BODY MASS INDEX, EXERCISE. Specifically, the patient was instructed regarding the importance of weight control, and exercise in the context of both chronic pain and overall health. 4. Procedures: none for now 5. Consultations: none for now 6. Investigations: None 7. Medications: Stollings 7.5/325 #120, Lyrica 75 mg #90, both with one refill; patient instructed to have surgeon notify us if patient needs more opioids and we will address that issue. 8. Disposition: f/u for procedure as scheduled PQRS measures: 1-Patient's medications are documented in the chart. 2-Tobacco use is negative 3-Patient has had a pneumococcal vaccine. 4-Advanced care planning discussed, patient unable to give. 5-Opioid contract signed with the patient. 6-Pain positive, follow-up visit or procedure scheduled 7-Patient's blood pressure measured and documented, and patient will follow up with the primary care due to hypertension. 8-Patient's weight was measured, and body mass index ABOVE the normal limits, and counseling was done. Patient instructed to follow up with PCP. 9-Patient WAS NOT identified as an unhealthy alcohol user.
== END ==
LOC: PNWHC3 12:07
PROVIDERS: ATTEND Anesthesiology
DX: G89.4 Chronic pain syndrome (principal); M51.14 Intervertebral disc disorders with radiculopathy, thoracic region; Z79.891 Long term (current) use of opiate analgesic; Z79.899 Other long term (current) drug therapy
CPT/HCPCS: 99211

== ENCOUNTER 2017-06-29 10:54 | Observation (INO) | payer OTHER ==
[2017-06-29] MEDS: DEXTROSE 50%-WATER 50 ML SYRINGE IVP STA ×2 (11:14→13:05)
[2017-06-29 11:15] LABS: Glucose,Whole Blood 42 mg/dL (75-99)
[2017-06-29] MEDS ORDERED: SODIUM CHLORIDE 0.9% 1,000 ML IV STA (11:15)
[2017-06-29 11:31] LABS: Basophils # (A) 0.1 k/uL (0-0.2); Basophils % (A) 0 %; Eosinophils # (A) 0.1 k/uL (0-0.7); Eosinophils % (A) 1 %; HCT 41.1 % (34.0-46.0); HGB 14.1 gm/dL (11.4-16.0); Lymphocytes % (A) 9 %; MCHC 34.3 g/dL (31.0-37.0); MCV 96.2 fL (80.0-100.0); Mean Platelet Volume 6.4; Monocytes # (A) 0.4 k/uL (0-1.0); Monocytes % (A) 3 %; Neutrophils # (A) 10.1 k/uL (1.3-7.7); Neutrophils % (A) 87 %; Platelet Count 249 k/uL (150-450); RBC 4.27 m/uL (3.80-5.40); RDW 12.6 % (11.5-15.5); WBC 11.7 k/uL (3.8-10.6)
[2017-06-29 11:42] LABS: ALT 22 U/L (9-52); AST 24 U/L (14-36); Albumin 4.4 g/dL (3.5-5.0); Alkaline Phosphatase 55 U/L (38-126); Amylase 107 U/L (30-110); Anion Gap 11 mmol/L; Blood Urea Nitrogen 20 mg/dL (7-17); Calcium 9.7 mg/dL (8.4-10.2); Carbon Dioxide 26 mmol/L (22-30); Chloride 107 mmol/L (98-107); Lipase 95 U/L (23-300); Potassium 3.9 mmol/L (3.5-5.1); Sodium 144 mmol/L (137-145); Total Bilirubin 0.3 mg/dL (0.2-1.3); Total Protein 6.8 g/dL (6.3-8.2)
[2017-06-29 11:54] LABS: Appearance,Urine Clear (Clear); Bilirubin,Urine Negative (Negative); Blood,Urine Negative (Negative); Color,Urine Yellow; Glucose,Urine (UA) 3+ (Negative); Ketones,Urine Negative (Negative); Leukocyte Esterase,Urine Negative (Negative); Nitrite,Urine Negative (Negative); PH, Urine 5.5 (5.0-8.0); Protein,Urine Trace (Negative); Specific Gravity,Urine 1.024 (1.001-1.035); Urobilinogen,Urine <2.0 mg/dL (<2.0)
[2017-06-29 11:55] LABS: Glucose 35 mg/dL (74-99)
[2017-06-29] MEDS ORDERED: DEXTROSE 50%-WATER 50 ML SYRINGE IVP STA (11:59)
[2017-06-29] MEDS ORDERED: DEXTROSE 10% IN WATER 1,000 ML IV ONE (12:01)
--- NOTE | 2017-06-29 12:07 | ED ---
Nausea/Vomiting/Diarrhea HPI - General Chief complaint: Nausea/Vomiting/Diarrhea Stated complaint: Hypoglycemia, Nauseated, vomiting Time Seen by Provider: 06/29/17 11:12 Source: patient, RN notes reviewed, old records reviewed Mode of arrival: EMS Limitations: no limitations - History of Present Illness Initial comments: This patient is a 36-year-old female presents emergency department today chief complaint of 5 days of diarrhea. She reports that she was started on Augmentin for a tooth infection approximately 2 weeks ago. Patient states that she has a history of severe hypoglycemia whenever she becomes dehydrated. She reports that she was at an urgent care today to test for C. diff due to her recent antibiotic use. They state that when they tested her sugar at the urgent care was 42. Patient refusing EMS ride here, she took her child home and then came to emergency department for further evaluation. She states that she had 2 episodes of vomiting yesterday. She reports that each time she eats she has diarrhea directly afterward. Patient reports that she is currently being treated for a kidney stone as well. He denies any severe abdominal tenderness. - Related Data Home Medications Medication Instructions Recorded Confirmed Levalbuterol Nebulized [Xopenex 0.63 mg INHALATION RT-QID PRN 09/30/13 06/29/17 Nebulized] Montelukast [Singulair] 10 mg PO HS 09/30/13 06/29/17 Levalbuterol Hfa Inhaler [Xopenex 2 puff INHALATION RT-Q6H PRN 01/07/14 06/29/17 Hfa Inhaler] ARIPiprazole [Abilify] 5 mg PO QAM 05/04/14 06/29/17 Desvenlafaxine Succinate [Pristiq] 100 mg PO QAM 11/07/15 06/29/17 Medroxyprogesterone Acetate 150 mg IM Q90D 11/07/15 06/29/17 [Depo-Provera] traZODone HCL [Desyrel] 100 mg PO HS 11/21/15 06/29/17 Flunisolide [Aerospan] 2 puff INHALATION RT-BID 06/28/16 06/29/17 Omalizumab [Xolair] 300 mg SQ Q30D 06/28/16 06/29/17 Levothyroxine Sodium [Synthroid] 137 mcg PO DAILY 07/18/16 06/29/17 Famotidine [Pepcid] 20 mg PO BID 10/02/16 06/29/17 Metoprolol Tartrate [Lopressor] 12.5 mg PO BID 06/12/17 06/29/17 Previous Rx's Medication Instructions Recorded Ondansetron Odt [Zofran ODT] 4 mg PO Q8HR PRN #12 tab 01/31/17 HYDROcodone/APAP 7.5-325MG [[place] 1 tab PO Q6HR PRN #120 tab 06/18/17 7.5-325] Pregabalin [Lyrica] 75 mg PO TID #90 cap 06/18/17 Allergies Allergy/AdvReac Type Severity Reaction Status Date / Time albuterol AdvReac Rapid Verified 06/29/17 12:31 Heart Rate Review of Systems ROS Statement: Those systems with pertinent positive or pertinent negative responses have been documented in the HPI. ROS Other: All systems not noted in ROS Statement are negative. Past Medical History Past Medical History: Asthma, Diabetes Mellitus, Seizure Disorder, Thyroid Disorder Additional Past Medical History / Comment(s): TACHYCARDIA, peptic ulcers, anemia."HAS BEEN ON VENTILATOR IN PAST D/T SEVERE ASTHMA ATTACK, BULEMIA-STATES GETTING BETTER, CONSTIPATION. PAST ULCER, HERNIATED DIS,FX RT FOOT IN DEC AND RE -FX 05/15/17 . RECENT INFECTION POST TOOTH EXTRACTION, WITH HOSPITALIZATION FOR LOW CBG SECONDARY TO BEING UNABLE TO TOLERATE EATING. History of Any Multi-Drug Resistant Organisms: MRSA Date of last positivie culture/infection: 08/25/14 MDRO Source:: Groin Past Surgical History: Bariatric Surgery, Cholecystectomy, Orthopedic Surgery, Tonsillectomy Additional Past Surgical History / Comment(s): tilt table test, lap band 2007; NASAL FX REPAIR , ORIF LT ELBOW X2, PAIN PROCEDURES Past Anesthesia/Blood Transfusion Reactions: Postoperative Nausea & Vomiting ( PONV) Past Psychological History: Anxiety, Depression Smoking Status: Never smoker Past Alcohol Use History: None Reported Past Drug Use History: None Reported - Past Family History Mother Family Medical History: Pneumonia Additional Family Medical History / Comment(s): Mother of pneumonia. Patient's son of brain cancer, last mother and father both liver cancer Son(s) Family Medical History: Cancer Additional Family Medical History / Comment(s): Son of brain cancer. Father Family Medical History: Cancer, Liver Disease Additional Family Medical History / Comment(s): Father has liver cancer with surgery. He has hepatitis. General Exam Limitations: no limitations Course Vital Signs 06/29/17 06/29/17 10:55 13:08 Temperature 98.6 F Pulse Rate 102 H 109 H Respiratory 16 16 Rate Blood Pressure 126/67 137/80 O2 Sat by Pulse 100 98 Oximetry Medical Decision Making - Medical Decision Making This patient is a 36-year-old female presents today chief complaint of intractable hypoglycemia. She states that she's been having diarrhea for the past 5 days. Questions of its associated with antibiotic use. She was on Augmentin approximately a week ago for an infected tooth. At this time patient arrived to the emergency department with a blood sugar of 42. She was given IV fluids and amp of D50. Patient's blood sugar then went to 200 and then 20 minutes later dropped to 120 and then 20 minutes later dropped to 60. She was given a second amp amp of D50. Patient was then started on maintenance fluids of D10 at 100 per hour. Stool studies are negative for C. diff. She has no specific abdominal tenderness. At this time patient labwork was reviewed and negative for any significant abnormalities. My mild leukocytosis due to diarrhea. At this time patient case discussed with Dr. Dietrich. Karine the patient. Rectal hypoglycemia and keep her for observation. She'll be her receiving fluids, and I did instruct for Imodium for diarrhea. All questions were answered. - Lab Data Result diagrams: 06/29/17 11:07 06/29/17 11:07 Lab Results 06/29/17 06/29/17 06/29/17 Range/Units 11:07 11:07 11:10 WBC 11.7 H (3.8-10.6) k/uL RBC 4.27 (3.80-5.40) m/uL Hgb 14.1 (11.4-16.0) gm/dL Hct 41.1 (34.0-46.0) % MCV 96.2 (80.0-100.0) fL MCH 33.0 (25.0-35.0) pg MCHC 34.3 (31.0-37.0) g/dL RDW 12.6 (11.5-15.5) % Plt Count 249 (150-450) k/uL Neutrophils % 87 % Lymphocytes % 9 % Monocytes % 3 % Eosinophils % 1 % Basophils % 0 % Neutrophils # 10.1 H (1.3-7.7) k/uL Lymphocytes # 1.0 (1.0-4.8) k/uL Monocytes # 0.4 (0-1.0) k/uL Eosinophils # 0.1 (0-0.7) k/uL Basophils # 0.1 (0-0.2) k/uL Sodium 144 (137-145) mmol/L Potassium 3.9 (3.5-5.1) mmol/L Chloride 107 (98-107) mmol/L Carbon Dioxide 26 (22-30) mmol/L Anion Gap 11 mmol/L BUN 20 H (7-17) mg/dL Creatinine 1.06 H (0.52-1.04) mg/dL Est GFR (MDRD) Af Amer >60 (>60 ml/min/1.73 sqM) Est GFR (MDRD) Non-Af 59 (>60 ml/min/1.73 sqM) Glucose 35 L* (74-99) mg/dL POC Glucose (mg/dL) 42 L (75-99) mg/dL POC Glu Paraoptometric [place] Alicia Calcium 9.7 (8.4-10.2) mg/dL Total Bilirubin 0.3 (0.2-1.3) mg/dL AST 24 (14-36) U/L ALT 22 (9-52) U/L Alkaline Phosphatase 55 (38-126) U/L Total Protein 6.8 (6.3-8.2) g/dL Albumin 4.4 (3.5-5.0) g/dL Amylase 107 (30-110) U/L Lipase 95 (23-300) U/L Urine Color Urine Appearance (Clear) Urine pH (5.0-8.0) Ur Specific [place] (1.001-1.035) Urine Protein (Negative) Urine Glucose (UA) (Negative) Urine Ketones (Negative) Urine Blood (Negative) Urine Nitrite (Negative) Urine Bilirubin (Negative) Urine Urobilinogen (<2.0) mg/dL Ur Leukocyte Esterase (Negative) Stool Occult Blood (Negative) C. difficile (EIA) Intrp (Negative) 06/29/17 06/29/17 06/29/17 Range/Units 11:40 11:42 11:42 WBC (3.8-10.6) k/uL RBC (3.80-5.40) m/uL Hgb (11.4-16.0) gm/dL Hct (34.0-46.0) % MCV (80.0-100.0) fL MCH (25.0-35.0) pg MCHC (31.0-37.0) g/dL RDW (11.5-15.5) % Plt Count (150-450) k/uL Neutrophils % % Lymphocytes % % Monocytes % % Eosinophils % % Basophils % % Neutrophils # (1.3-7.7) k/uL Lymphocytes # (1.0-4.8) k/uL Monocytes # (0-1.0) k/uL Eosinophils # (0-0.7) k/uL Basophils # (0-0.2) k/uL Sodium (137-145) mmol/L Potassium (3.5-5.1) mmol/L Chloride (98-107) mmol/L Carbon Dioxide (22-30) mmol/L Anion Gap mmol/L BUN (7-17) mg/dL Creatinine (0.52-1.04) mg/dL Est GFR (MDRD) Af Amer (>60 ml/min/1.73 sqM) Est GFR (MDRD) Non-Af (>60 ml/min/1.73 sqM) Glucose (74-99) mg/dL POC Glucose (mg/dL) (75-99) mg/dL POC Glu Paraoptometric ID Calcium (8.4-10.2) mg/dL Total Bilirubin (0.2-1.3) mg/dL AST (14-36) U/L ALT (9-52) U/L Alkaline Phosphatase (38-126) U/L Total Protein (6.3-8.2) g/dL Albumin (3.5-5.0) g/dL Amylase (30-110) U/L Lipase (23-300) U/L Urine Color Yellow Urine Appearance Clear (Clear) Urine pH 5.5 (5.0-8.0) Ur Specific [place] 1.024 (1.001-1.035) Urine Protein Trace H (Negative) Urine Glucose (UA) 3+ H (Negative) Urine Ketones Negative (Negative) Urine Blood Negative (Negative) Urine Nitrite Negative (Negative) Urine Bilirubin Negative (Negative) Urine Urobilinogen <2.0 (<2.0) mg/dL Ur Leukocyte Esterase Negative (Negative) Stool Occult Blood Negative (Negative) C. difficile (EIA) Intrp Negative (Negative) 06/29/17 Range/Units 13:03 WBC (3.8-10.6) k/uL RBC (3.80-5.40) m/uL Hgb (11.4-16.0) gm/dL Hct (34.0-46.0) % MCV (80.0-100.0) fL MCH (25.0-35.0) pg MCHC (31.0-37.0) g/dL RDW (11.5-15.5) % Plt Count (150-450) k/uL Neutrophils % % Lymphocytes % % Monocytes % % Eosinophils % % Basophils % % Neutrophils # (1.3-7.7) k/uL Lymphocytes # (1.0-4.8) k/uL Monocytes # (0-1.0) k/uL Eosinophils # (0-0.7) k/uL Basophils # (0-0.2) k/uL Sodium (137-145) mmol/L Potassium (3.5-5.1) mmol/L Chloride (98-107) mmol/L Carbon Dioxide (22-30) mmol/L Anion Gap mmol/L BUN (7-17) mg/dL Creatinine (0.52-1.04) mg/dL Est GFR (MDRD) Af Amer (>60 ml/min/1.73 sqM) Est GFR (MDRD) Non-Af (>60 ml/min/1.73 sqM) Glucose (74-99) mg/dL POC Glucose (mg/dL) 37 L (75-99) mg/dL POC Glu Paraoptometric ID Beatris Palacios Calcium (8.4-10.2) mg/dL Total Bilirubin (0.2-1.3) mg/dL AST (14-36) U/L ALT (9-52) U/L Alkaline Phosphatase (38-126) U/L Total Protein (6.3-8.2) g/dL Albumin (3.5-5.0) g/dL Amylase (30-110) U/L Lipase (23-300) U/L Urine Color Urine Appearance (Clear) Urine pH (5.0-8.0) Ur Specific [place] (1.001-1.035) Urine Protein (Negative) Urine Glucose (UA) (Negative) Urine Ketones (Negative) Urine Blood (Negative) Urine Nitrite (Negative) Urine Bilirubin (Negative) Urine Urobilinogen (<2.0) mg/dL Ur Leukocyte Esterase (Negative) Stool Occult Blood (Negative) C. difficile (EIA) Intrp (Negative) Disposition Clinical Impression: Diarrhea, Hypoglycemia Disposition: ADMITTED IP TO THIS HOSP Condition: Stable Referrals: Slade Gonzalez MD [Primary Care Provider] - 1-2 days Time of Disposition: 14:15
[2017-06-29 13:19] LABS: Glucose,Whole Blood 37 mg/dL (75-99)
[2017-06-29] MEDS ORDERED: NALOXONE 0.4 MG/ML 1 ML VIAL IV PRN (14:15)
[2017-06-29] MEDS ORDERED: LOPERAMIDE 2 MG CAP PO ONE (14:15)
[2017-06-29] MEDS ORDERED: ACETAMINOPHEN TAB 325 MG TAB PO PRN (14:15)
[2017-06-29] MEDS ORDERED: LOPERAMIDE 2 MG CAP PO PRN (14:15)
[2017-06-29] MEDS ORDERED: ONDANSETRON 4 MG/2 ML VIAL IVP PRN (14:15)
[2017-06-29] MEDS ORDERED: IBUPROFEN 400 MG TAB PO PRN (14:15)
[2017-06-29] MEDS ORDERED: diphenhydrAMINE 50 MG/ML 1 ML VIAL IVP STA (14:19)
[2017-06-29] MEDS ORDERED: METOCLOPRAMIDE 5 MG/ML 2 ML VIAL IVP STA (14:19)
[2017-06-29 14:25] LABS: Glucose,Whole Blood 79 mg/dL (75-99)
[2017-06-29 14:25] LABS: Glucose,Whole Blood 112 mg/dL (75-99)
[2017-06-29 14:25] LABS: Glucose,Whole Blood 165 mg/dL (75-99)
[2017-06-29] MEDS: SODIUM CHLORIDE 0.9% 1,000 ML IV SCH (14:28)
[2017-06-29 15:48] LABS: Glucose,Whole Blood 62 mg/dL (75-99)
[2017-06-29 16:00] LABS: Glucose,Whole Blood 83 mg/dL (75-99)
[2017-06-29 16:24] VITALS: BMI 30.2
[2017-06-29 17:02] LABS: Glucose,Whole Blood 93 mg/dL (75-99)
[2017-06-29 18:57] LABS: Glucose,Whole Blood 174 mg/dL (75-99)
[2017-06-29 20:19] LABS: Glucose,Whole Blood 153 mg/dL (75-99)
[2017-06-29] MEDS: DEXTROSE 10% IN WATER 1,000 ML in EMPTY BAG 1 BAG IV SCH ×2 (20:38→20:44)
[2017-06-29] MEDS ORDERED: LEVALBUTEROL 0.63 MG INHALATION PRN (20:46)
[2017-06-29] MEDS ORDERED: LEVALBUTEROL INHALATION PRN ×2 (20:46→22:17)
[2017-06-29] MEDS: KETOROLAC 30 MG/ML 1 ML VIAL IVP PRN (20:56)
[2017-06-29] MEDS: ENOXAPARIN 40 MG/0.4 ML SYRINGE SQ SCH (22:20)
[2017-06-29] MEDS: traZODone HCL 100 MG TAB PO SCH (22:22)
[2017-06-29] MEDS: PREGABALIN 75 MG CAP PO SCH (22:22)
[2017-06-29] MEDS: FAMOTIDINE 20 MG TAB PO SCH (22:22)
[2017-06-29] MEDS: MONTELUKAST 10 MG TAB PO SCH (22:22)
[2017-06-29] MEDS: METOPROLOL TARTRATE 25 MG TAB PO SCH (22:23)
[2017-06-30 01:49] LABS: Glucose,Whole Blood 105 mg/dL (75-99)
[2017-06-30] MEDS: HYDROcodone/APAP 7.5-325MG 1 EACH TAB PO PRN ×2 (06:25→15:59)
[2017-06-30] MEDS: LEVOTHYROXINE 137 MCG TAB PO SCH (06:25)
[2017-06-30] MEDS: DEXTROSE 10% IN WATER 1,000 ML in EMPTY BAG 1 BAG IV SCH (08:06)
[2017-06-30 08:07] LABS: Glucose,Whole Blood 96 mg/dL (75-99)
[2017-06-30 08:30] LABS: Glucose,Whole Blood 60 mg/dL (75-99)
[2017-06-30 08:46] LABS: Glucose,Whole Blood 73 mg/dL (75-99)
[2017-06-30] MEDS: FAMOTIDINE 20 MG TAB PO SCH ×2 (08:47→20:42)
[2017-06-30] MEDS: METOPROLOL TARTRATE 25 MG TAB PO SCH ×2 (08:47→20:42)
[2017-06-30] MEDS: BUDESONIDE 0.5 MG/2 ML NEBU INHALATION SCH ×2 (08:47→18:48)
[2017-06-30] MEDS: LEVALBUTEROL 0.63 MG INHALATION PRN ×3 (08:47→18:48)
[2017-06-30] MEDS: DESVENLAFAXINE SUCCINATE 50 MG TAB.ER.24H PO SCH (08:47)
[2017-06-30] MEDS: ARIPiprazole 5 MG TAB PO SCH (08:47)
[2017-06-30] MEDS: PREGABALIN 75 MG CAP PO SCH ×3 (08:51→20:42)
[2017-06-30] MEDS ORDERED: PANTOPRAZOLE 40 MG/10 ML VIAL IV SCH (09:00)
[2017-06-30 10:15] LABS: Glucose,Whole Blood 68 mg/dL (75-99)
[2017-06-30] MEDS: KETOROLAC 30 MG/ML 1 ML VIAL IVP PRN (10:30)
[2017-06-30 10:35] LABS: Glucose,Whole Blood 77 mg/dL (75-99)
[2017-06-30 11:08] LABS: Glucose,Whole Blood 86 mg/dL (75-99)
--- NOTE | 2017-06-30 11:28 | HP ---
HISTORY AND PHYSICAL DATE OF ADMISSION: 06/29/17. DATE OF SERVICE: 06/29/17. PRESENTING COMPLAINT: Nausea, vomiting, diarrhea. HISTORY OF PRESENTING COMPLAINT: This is a patient I saw yesterday on June 29, 2017 on the pediatrics unit. The patient's chronic stable medical conditions include diabetes, peptic ulcer disease, asthma, bulimia, herniated disc, chronic cervical and back pain, history of kidney stones. The patient presents with a 1-day history of increasing nausea, vomiting, abdominal discomfort, diarrhea, unable to keep anything down. Did go to see a family doctor. From there she was sent to the hospital as sugars dropped down to below 40. This is a recurrent thing that goes up with the patient. The patient is put on D10 in the ER, not able to keep much down and hence she was admitted. I put the patient on D10 drip and increased the drip to about 150 an hour. Using the hypoglycemia protocol, patient also required D50 amps in the ER. Feeling weak, tired, exhausted. REVIEW OF SYSTEMS: Constitutional: Weak and tired. HEENT none. Respiratory none. Cardiovascular none. Gastrointestinal as above. Genitourinary: None. Musculoskeletal: Chronic low back pain. Dermatological none. Hematologic and lymphatics none. Psychiatry: Anxiety. Neurological none. PAST MEDICAL HISTORY: Diet-controlled diabetes, hypoglycemic episodes, peptic ulcer disease, asthma, bulimia, herniated disc, lap band, cervical and back pain, chronic pain to the spine, superficial blood clots in both the arms. PAST SURGICAL HISTORY: Cholecystectomy, orthopedic surgery, tonsillectomy, ORIF of the left elbow, multiple pain procedures, lap alcon, tonsillectomy, lap band, which is currently all the fluids been taken off and deflated. FAMILY HISTORY: Of cancer, son had brain cancer. SOCIAL HISTORY: Patient has got 2 daughters. No smoking. No alcohol. HOME MEDICATIONS: 1. Trazodone 100 mg q.h.s. 2. Lyrica 75 mg p.o. t.i.d. 3. Zofran 4 mg q.8h p.r.n. 4. Xolair 300 mg subcu every 30 days. 5. Singulair 10 mg p.o. q.h.s. 6. Lopressor 12.5 p.o. b.i.d. 7. Depo-Provera 150 mg IM every 90 days. 8. Synthroid 137 mcg p.o. daily. 9. Xopenex 0.6 inhalation q.i.d. p.r.n. 10.Xopenex HFA 2 puffs q.6h p.r.n. 11.[place] 7.5 one tab q.6h p.r.n. 12.Aerospan 2 puffs b.i.d. 13.Pepcid 20 mg b.i.d. 14.Pristiq 100 mg p.o. daily. 15.Abilify 5 mg p.o. daily. ALLERGIES: TO ALBUTEROL. PHYSICAL EXAMINATION: Vital signs on presentation: Temperature 98.6, pulse 102, respirations 16, blood pressure 126/67, pulse ox 100% on room air. General appearance: Average build, lying in bed, very tired-appearing. Eyes: Pupils equal. Conjunctivae normal. HEENT: External appearance of nose and ears normal. Oral cavity dry mucous membranes. Neck JVD not raised. Mass not palpable. Respiratory effort normal. Lungs fair entry. Cardiovascular 1st and 2nd sounds normal. No edema. ABDOMEN: Soft, minimal tenderness. Liver and spleen not palpable. No tenderness. No mass palpable. Lymphatics: No lymph nodes palpable in the neck and axilla. PSYCHIATRY: Alert and oriented times three. Mood and affect slightly anxious- appearing. Neurological: Pupils equal. Cranial nerves grossly intact. Power and sensation grossly intact. INVESTIGATIONS: White count 11.7, hemoglobin 14.1, potassium 3.9, BUN 20, creatinine 1.06, blood glucose was 35. ASSESSMENT: 1. Acute severe hypoglycemia from persistent nausea, vomiting, and patient is rather prone to this condition and patient did get D50 in the ER, sugars running low. 2. Moderate persistent asthma, controlled. 3. Peptic ulcer disease. 4. Chronic bulimia. 5. Chronic low back pain from herniated disc. 6. Hypothyroidism. 7. Depression, not otherwise specified. PLAN: Home medications are resumed. Patient is put on D10 drip at 150 an hour. Hypoglycemia protocol with frequent Accu-Cheks. Care was discussed with the patient. Encouraged to increase oral intake. The patient had some mashed potatoes and able to keep some food down. Care was discussed with the patient and nurse in detail. Copy Dr. Gonzalez. MMODL / IJN: [id number] /
[2017-06-30] MEDS: SODIUM CHLORIDE 0.9% 1,000 ML IV SCH (15:19)
[2017-06-30 15:52] LABS: Glucose,Whole Blood 107 mg/dL (75-99)
[2017-06-30] MEDS: DEXTROSE 10% IN WATER 1,000 ML IV SCH (18:03)
[2017-06-30] MEDS ORDERED: DEXTROSE 50%-WATER 50 ML SYRINGE IVP PRN (19:32)
[2017-06-30] MEDS: MONTELUKAST 10 MG TAB PO SCH (20:42)
[2017-06-30] MEDS: traZODone HCL 100 MG TAB PO SCH (20:42)
[2017-06-30] MEDS: ENOXAPARIN 40 MG/0.4 ML SYRINGE SQ SCH (20:43)
[2017-06-30 20:56] LABS: Glucose,Whole Blood 93 mg/dL (75-99)
[2017-07-01] MEDS: PSYLLIUM HUSK 100% 6 GM PACKET PO SCH ×2 (03:52→08:48)
[2017-07-01] MEDS: DEXTROSE 10% IN WATER 1,000 ML IV SCH (03:54)
[2017-07-01] MEDS: HYDROcodone/APAP 7.5-325MG 1 EACH TAB PO PRN ×2 (05:25→14:53)
[2017-07-01] MEDS: LEVOTHYROXINE 137 MCG TAB PO SCH (05:25)
--- NOTE | 2017-07-01 05:31 | PN ---
PROGRESS NOTE DATE OF SERVICE: 06/30/2017 PRESENTING COMPLAINT: Nausea, diarrhea, low sugars. INTERVAL HISTORY: This patient known with recurrent episodes of hypoglycemia presented with what appears to be acute gastroenteritis again with hypoglycemia, eating a little bit. Still on a D10 drip. Sugars were running in double digits, feeling weak, tired, run down. slightly improved. REVIEW OF SYSTEMS: Review of systems done for constitutional, cardiovascular, GI, Pulmonary; relevant findings as above. MEDICATIONS: Current medications are reviewed. PHYSICAL EXAMINATION: On examination, temperature 98.8, pulse 85, respiratory 18, blood pressure 96/62, pulse ox 98% on room air. GENERAL APPEARANCE: Lying in bed, tired appearing. EYES: Pupils equal. Conjunctivae normal. HENT: External appearance of nose and ears normal. Oral cavity dry mucous membrane. NECK: JVD not raised. Mass not palpable. RESPIRATORY: Effort normal. LUNGS: Fair entry. CARDIOVASCULAR: First and second sounds normal. No edema. ABDOMEN: Soft, nontender. Liver and spleen not palpable. PSYCHIATRY: Alert and oriented x3. Mood and affect normal. INVESTIGATIONS: Accu-Cheks 68, 77, 86. ASSESSMENT: 1. Persistent hypoglycemia, worsened by probably acute gastroenteritis. 2. Moderate persistent asthma, controlled. 3. Peptic ulcer disease. 4. Chronic bulimia. 5. Chronic low back pain from herniated disc. 6. Hypothyroidism. 7. Depression, not otherwise specified. 8. Acute gastroenteritis. PLAN: We will set off patient's ova and parasites. Highly doubt this to be C difficile, will check it out. The patient has been in and out of the hospitals. I will keep the patient on current D10 drip. Encourage oral intake and being out of bed. Will add some Metamucil to solidify the stool. MMODL / IJN: [id number] /
[2017-07-01] MEDS: LEVALBUTEROL 0.63 MG INHALATION PRN (05:35)
[2017-07-01] MEDS: BUDESONIDE 0.5 MG/2 ML NEBU INHALATION SCH ×2 (05:35→19:33)
[2017-07-01] MEDS: ARIPiprazole 5 MG TAB PO SCH (08:45)
[2017-07-01] MEDS: ENOXAPARIN 40 MG/0.4 ML SYRINGE SQ SCH (08:46)
[2017-07-01] MEDS: DESVENLAFAXINE SUCCINATE 50 MG TAB.ER.24H PO SCH (08:46)
[2017-07-01] MEDS: FAMOTIDINE 20 MG TAB PO SCH (08:47)
[2017-07-01] MEDS: METOPROLOL TARTRATE 25 MG TAB PO SCH (08:47)
[2017-07-01] MEDS: PREGABALIN 75 MG CAP PO SCH ×2 (08:50→16:22)
[2017-07-01] MEDS: KETOROLAC 30 MG/ML 1 ML VIAL IVP PRN ×2 (08:52→18:49)
[2017-07-01 09:09] LABS: Glucose,Whole Blood 122 mg/dL (75-99)
[2017-07-01 11:40] LABS: Glucose,Whole Blood 88 mg/dL (75-99)
[2017-07-01 13:35] LABS: Glucose,Whole Blood 97 mg/dL (75-99)
[2017-07-01] MEDS: SODIUM CHLORIDE 0.9% 1,000 ML IV SCH (14:09)
[2017-07-01 16:03] LABS: Glucose,Whole Blood 98 mg/dL (75-99)
[2017-07-01 17:37] LABS: Glucose,Whole Blood 81 mg/dL (75-99)
[2017-07-01 17:44] LABS: Glucose,Whole Blood 84 mg/dL (75-99)
[2017-07-01 17:45] VITALS: BP 116/76; PULSE 91; RESP 20; TEMP 98
[2017-07-01 19:38] LABS: Glucose,Whole Blood 98 mg/dL (75-99)
== END 2017-07-01 21:03 | disposition home or self-care (01) ==
LOC: EC 10:54 → 6PED 14:15
PROVIDERS: ADMIT Hospitalist; ATTEND Hospitalist
DX: E11.649 Type 2 diabetes mellitus with hypoglycemia without coma (principal); K52.9 Noninfective gastroenteritis and colitis, unspecified; J45.40 Moderate persistent asthma, uncomplicated; K27.9 Peptic ulcer, site unspecified, unspecified as acute or chronic, without hemorrhage or perforation; F41.9 Anxiety disorder, unspecified; F50.2 Bulimia nervosa; G89.29 Other chronic pain; M54.5 Low back pain; M54.2 Cervicalgia; E03.9 Hypothyroidism, unspecified; F32.9 Major depressive disorder, single episode, unspecified; N20.0 Calculus of kidney; G40.909 Epilepsy, unspecified, not intractable, without status epilepticus; Z98.84 Bariatric surgery status; Z79.51 Long term (current) use of inhaled steroids; Z79.899 Other long term (current) drug therapy; Z88.8 Allergy status to other drugs, medicaments and biological substances; Z86.14 Personal history of Methicillin resistant Staphylococcus aureus infection; Z80.0 Family history of malignant neoplasm of digestive organs; Z80.8 Family history of malignant neoplasm of other organs or systems
CPT/HCPCS: 36415; 80053; 81003; 82150; 82272; 83690; 85025; 87045; 87046; 87324; 89055; 94640; 96361; 96365; 96366; 96372; 96375; 96376; 99285

== ENCOUNTER 2017-07-03 19:38 | Observation (INO) | payer OTHER ==
[2017-07-03 19:50] LABS: Glucose,Whole Blood 49 mg/dL (75-99)
[2017-07-03] MEDS ORDERED: DEXTROSE 50%-WATER 50 ML SYRINGE IVP STA ×3 (19:59→22:11)
--- NOTE | 2017-07-03 20:17 | ED ---
General Adult HPI - General Chief complaint: Abdominal Pain Stated complaint: abd pain,hypoglycemia Time Seen by Provider: 07/03/17 19:53 Source: patient, RN notes reviewed Mode of arrival: EMS Limitations: no limitations - History of Present Illness Initial comments: 36-year-old female presents emergency Department with chief complaint of hypoglycemia. Patient states that she has been struggling with this. She is currently trying to get into an manager ob. Patient states that today she had a D&C and cervical surgery. She states ever since her sugar is been dropping to the 40s. She states that she is afraid to sleep so she thought that she should be seen. She is having General abdominal pain from the D&C but states that she was more concerned about her glucose. She states she hasn't had any fever chills with this. She states that she's been eating without difficulty. Patient denies any recent fever, chills, shortness of breath, chest pain, back pain, nausea vomiting, numbness or tingling, dysuria or hematuria, constipation or diarrhea, headaches or visual changes, or any other current symptoms. - Related Data Home Medications Medication Instructions Recorded Confirmed Levalbuterol Nebulized [Xopenex 0.63 mg INHALATION RT-QID PRN 09/30/13 07/03/17 Nebulized] Montelukast [Singulair] 10 mg PO 09/30/13 07/03/17 Levalbuterol Hfa Inhaler [Xopenex 2 puff INHALATION RT-Q6H PRN 01/07/14 07/03/17 Hfa Inhaler] ARIPiprazole [Abilify] 5 mg PO QAM 05/04/14 07/03/17 Desvenlafaxine Succinate [Pristiq] 100 mg PO QAM 11/07/15 07/03/17 Medroxyprogesterone Acetate 150 mg IM Q90D 11/07/15 07/03/17 [Depo-Provera] traZODone HCL [Desyrel] 100 mg PO 11/21/15 07/03/17 Flunisolide [Aerospan] 2 puff INHALATION RT-BID 06/28/16 07/03/17 Omalizumab [Xolair] 300 mg SQ Q30D 06/28/16 07/03/17 Levothyroxine Sodium [Synthroid] 137 mcg PO DAILY 07/18/16 07/03/17 Famotidine [Pepcid] 20 mg PO BID 10/02/16 07/03/17 Metoprolol Tartrate [Lopressor] 12.5 mg PO BID 06/12/17 07/03/17 Previous Rx's Medication Instructions Recorded Ondansetron Odt [Zofran ODT] 4 mg PO Q8HR PRN #12 tab 01/31/17 HYDROcodone/APAP 7.5-325MG [[place] 1 tab PO Q6HR PRN #120 tab 06/18/17 7.5-325] Pregabalin [Lyrica] 75 mg PO TID #90 cap 06/18/17 Allergies Allergy/AdvReac Type Severity Reaction Status Date / Time albuterol AdvReac Rapid Verified 07/03/17 20:04 Heart Rate Review of Systems ROS Statement: Those systems with pertinent positive or pertinent negative responses have been documented in the HPI. ROS Other: All systems not noted in ROS Statement are negative. Past Medical History Past Medical History: Asthma, Seizure Disorder, Thyroid Disorder Additional Past Medical History / Comment(s): TACHYCARDIA, peptic ulcers, anemia."HAS BEEN ON VENTILATOR IN PAST D/T SEVERE ASTHMA ATTACK, BULEMIA-STATES GETTING BETTER, CONSTIPATION. PAST ULCER, HERNIATED DIS,FX RT FOOT IN DEC AND RE -FX 05/15/17 . RECENT INFECTION POST TOOTH EXTRACTION, WITH HOSPITALIZATION FOR LOW CBG SECONDARY TO BEING UNABLE TO TOLERATE EATING. History of Any Multi-Drug Resistant Organisms: MRSA Date of last positivie culture/infection: 08/25/14 MDRO Source:: Groin Past Surgical History: Bariatric Surgery, Cholecystectomy, Orthopedic Surgery, Tonsillectomy Additional Past Surgical History / Comment(s): tilt table test, lap band 2007; NASAL FX REPAIR , ORIF LT ELBOW X2, PAIN PROCEDURES Past Anesthesia/Blood Transfusion Reactions: Postoperative Nausea & Vomiting ( PONV) Past Psychological History: Anxiety, Depression Smoking Status: Never smoker Past Alcohol Use History: None Reported Past Drug Use History: None Reported - Past Family History Mother Family Medical History: Pneumonia Additional Family Medical History / Comment(s): Mother of pneumonia. Patient's son of brain cancer, last mother and father both liver cancer Son(s) Family Medical History: Cancer Additional Family Medical History / Comment(s): Son of brain cancer. Father Family Medical History: Cancer, Liver Disease Additional Family Medical History / Comment(s): Father has liver cancer with surgery. He has hepatitis. General Exam - General Exam Comments Initial Comments: General: The patient is awake and alert, in no distress, and does not appear acutely ill. Eye: Pupils are equal, round and reactive to light, extra-ocular movements are intact; there is normal conjunctiva bilaterally. No signs of icterus. Ears, nose, mouth and throat: There are moist mucous membranes and no oral lesions. Neck: The neck is supple, there is no tenderness. Cardiovascular: There is a regular rate and rhythm. No murmur, rub or gallop is appreciated. Respiratory: Lungs are clear to auscultation, respirations are non-labored, breath sounds are equal. No wheezes, stridor, rales, or rhonchi. Gastrointestinal: Soft, non-distended, non-tender abdomen without masses or organomegaly noted. There is no rebound or guarding present. No CVA tenderness. Bowel sounds are unremarkable. Back: There is no tenderness to palpation in the midline. There is no obvious deformity. No rashes noted. Musculoskeletal: Normal ROM, no tenderness, There is no pedal edema. There is no calf tenderness or swelling. Sensation intact. Pulses equal bilaterally 2+. Neurological: CN II-XII intact, There are no obvious motor or sensory deficits. Coordination appears grossly intact. Speech is normal. Skin: Skin is warm and dry and no rashes or lesions are noted. Psychiatric: Cooperative, appropriate mood & affect, normal judgment. Limitations: no limitations Course Vital Signs 07/03/17 07/03/17 07/03/17 19:44 20:21 22:10 Temperature 97.9 F Pulse Rate 101 H 92 105 H Respiratory 16 16 20 Rate Blood Pressure 109/56 108/57 107/54 O2 Sat by Pulse 99 100 99 Oximetry Medical Decision Making - Medical Decision Making 36-year-old female presents for hypoglycemia. At this time even after 3 A of D50 the patient tolerated some food she continues to be hypoglycemic. At this time we did start patient on D10 we will admit her for continued observation. Patient is agreement this plan. - Lab Data Result diagrams: 07/03/17 20:17 07/03/17 20:17 Lab Results 07/03/17 07/03/17 07/03/17 Range/Units 19:46 20:17 20:17 WBC 9.7 (3.8-10.6) k/uL RBC 3.89 (3.80-5.40) m/uL Hgb 12.7 (11.4-16.0) gm/dL Hct 37.2 (34.0-46.0) % MCV 95.6 (80.0-100.0) fL MCH 32.5 (25.0-35.0) pg MCHC 34.0 (31.0-37.0) g/dL RDW 12.4 (11.5-15.5) % Plt Count 215 (150-450) k/uL Neutrophils % 80 % Lymphocytes % 14 % Monocytes % 3 % Eosinophils % 2 % Basophils % 0 % Neutrophils # 7.7 (1.3-7.7) k/uL Lymphocytes # 1.3 (1.0-4.8) k/uL Monocytes # 0.3 (0-1.0) k/uL Eosinophils # 0.2 (0-0.7) k/uL Basophils # 0.0 (0-0.2) k/uL Sodium 143 (137-145) mmol/L Potassium 4.1 (3.5-5.1) mmol/L Chloride 106 (98-107) mmol/L Carbon Dioxide 26 (22-30) mmol/L Anion Gap 11 mmol/L BUN 24 H (7-17) mg/dL Creatinine 1.05 H (0.52-1.04) mg/dL Est GFR (MDRD) Af Amer >60 (>60 ml/min/1.73 sqM) Est GFR (MDRD) Non-Af 59 (>60 ml/min/1.73 sqM) Glucose 29 L* (74-99) mg/dL POC Glucose (mg/dL) 49 L (75-99) mg/dL POC Glu Engine Dynamometer Tester ID Christal Dukes Calcium 9.3 (8.4-10.2) mg/dL Total Bilirubin 0.3 (0.2-1.3) mg/dL AST 29 (14-36) U/L ALT 28 (9-52) U/L Alkaline Phosphatase 51 (38-126) U/L Total Protein 6.4 (6.3-8.2) g/dL Albumin 4.1 (3.5-5.0) g/dL Urine Color Urine Appearance (Clear) Urine pH (5.0-8.0) Ur Specific [place] (1.001-1.035) Urine Protein (Negative) Urine Glucose (UA) (Negative) Urine Ketones (Negative) Urine Blood (Negative) Urine Nitrite (Negative) Urine Bilirubin (Negative) Urine Urobilinogen (<2.0) mg/dL Ur Leukocyte Esterase (Negative) Urine RBC (0-5) /hpf Urine WBC (0-5) /hpf Ur Squamous Epith Cells (0-4) /hpf Calcium Oxalate Crystal (None) /hpf Urine Bacteria (None) /hpf Urine Mucus (None) /hpf Acetone, Qual Negative (Negative) 07/03/17 07/03/17 07/03/17 Range/Units 20:30 21:01 21:54 WBC (3.8-10.6) k/uL RBC (3.80-5.40) m/uL Hgb (11.4-16.0) gm/dL Hct (34.0-46.0) % MCV (80.0-100.0) fL MCH (25.0-35.0) pg MCHC (31.0-37.0) g/dL RDW (11.5-15.5) % Plt Count (150-450) k/uL Neutrophils % % Lymphocytes % % Monocytes % % Eosinophils % % Basophils % % Neutrophils # (1.3-7.7) k/uL Lymphocytes # (1.0-4.8) k/uL Monocytes # (0-1.0) k/uL Eosinophils # (0-0.7) k/uL Basophils # (0-0.2) k/uL Sodium (137-145) mmol/L Potassium (3.5-5.1) mmol/L Chloride (98-107) mmol/L Carbon Dioxide (22-30) mmol/L Anion Gap mmol/L BUN (7-17) mg/dL Creatinine (0.52-1.04) mg/dL Est GFR (MDRD) Af Amer (>60 ml/min/1.73 sqM) Est GFR (MDRD) Non-Af (>60 ml/min/1.73 sqM) Glucose (74-99) mg/dL POC Glucose (mg/dL) 43 L 45 L (75-99) mg/dL POC Glu Engine Dynamometer Tester ID Franklin Knowles Ariel Calcium (8.4-10.2) mg/dL Total Bilirubin (0.2-1.3) mg/dL AST (14-36) U/L ALT (9-52) U/L Alkaline Phosphatase (38-126) U/L Total Protein (6.3-8.2) g/dL Albumin (3.5-5.0) g/dL Urine Color Yellow Urine Appearance Cloudy H (Clear) Urine pH 6.0 (5.0-8.0) Ur Specific [place] 1.025 (1.001-1.035) Urine Protein Trace H (Negative) Urine Glucose (UA) 3+ H (Negative) Urine Ketones Negative (Negative) Urine Blood Large H (Negative) Urine Nitrite Negative (Negative) Urine Bilirubin Negative (Negative) Urine Urobilinogen <2.0 (<2.0) mg/dL Ur Leukocyte Esterase Large H (Negative) Urine RBC >182 H (0-5) /hpf Urine WBC 12 H (0-5) /hpf Ur Squamous Epith Cells 2 (0-4) /hpf Calcium Oxalate Crystal Moderate H (None) /hpf Urine Bacteria Occasional H (None) /hpf Urine Mucus Occasional H (None) /hpf Acetone, Qual (Negative) 07/03/17 07/03/17 Range/Units 22:10 22:28 WBC (3.8-10.6) k/uL RBC (3.80-5.40) m/uL Hgb (11.4-16.0) gm/dL Hct (34.0-46.0) % MCV (80.0-100.0) fL MCH (25.0-35.0) pg MCHC (31.0-37.0) g/dL RDW (11.5-15.5) % Plt Count (150-450) k/uL Neutrophils % % Lymphocytes % % Monocytes % % Eosinophils % % Basophils % % Neutrophils # (1.3-7.7) k/uL Lymphocytes # (1.0-4.8) k/uL Monocytes # (0-1.0) k/uL Eosinophils # (0-0.7) k/uL Basophils # (0-0.2) k/uL Sodium (137-145) mmol/L Potassium (3.5-5.1) mmol/L Chloride (98-107) mmol/L Carbon Dioxide (22-30) mmol/L Anion Gap mmol/L BUN (7-17) mg/dL Creatinine (0.52-1.04) mg/dL Est GFR (MDRD) Af Amer (>60 ml/min/1.73 sqM) Est GFR (MDRD) Non-Af (>60 ml/min/1.73 sqM) Glucose (74-99) mg/dL POC Glucose (mg/dL) 29 L 167 H (75-99) mg/dL POC Glu Engine Dynamometer Tester ID Arianna, Krista Calcium (8.4-10.2) mg/dL Total Bilirubin (0.2-1.3) mg/dL AST (14-36) U/L ALT (9-52) U/L Alkaline Phosphatase (38-126) U/L Total Protein (6.3-8.2) g/dL Albumin (3.5-5.0) g/dL Urine Color Urine Appearance (Clear) Urine pH (5.0-8.0) Ur Specific [place] (1.001-1.035) Urine Protein (Negative) Urine Glucose (UA) (Negative) Urine Ketones (Negative) Urine Blood (Negative) Urine Nitrite (Negative) Urine Bilirubin (Negative) Urine Urobilinogen (<2.0) mg/dL Ur Leukocyte Esterase (Negative) Urine RBC (0-5) /hpf Urine WBC (0-5) /hpf Ur Squamous Epith Cells (0-4) /hpf Calcium Oxalate Crystal (None) /hpf Urine Bacteria (None) /hpf Urine Mucus (None) /hpf Acetone, Qual (Negative) Disposition Clinical Impression: Hypoglycemia Disposition: ADMITTED IP TO THIS [facility] Condition: Stable Referrals: Slade Gonzalez MD [Primary Care Provider] - 1-2 days Decision Date: 07/03/17 Decision Time: 22:39
[2017-07-03 20:40] LABS: ALT 28 U/L (9-52); AST 29 U/L (14-36); Albumin 4.1 g/dL (3.5-5.0); Alkaline Phosphatase 51 U/L (38-126); Anion Gap 11 mmol/L; Blood Urea Nitrogen 24 mg/dL (7-17); Calcium 9.3 mg/dL (8.4-10.2); Carbon Dioxide 26 mmol/L (22-30); Chloride 106 mmol/L (98-107); Potassium 4.1 mmol/L (3.5-5.1); Sodium 143 mmol/L (137-145); Total Bilirubin 0.3 mg/dL (0.2-1.3); Total Protein 6.4 g/dL (6.3-8.2)
[2017-07-03 20:50] LABS: Glucose 29 mg/dL (74-99)
[2017-07-03 21:04] LABS: Basophils % (A) 0 %; Eosinophils # (A) 0.2 k/uL (0-0.7); Eosinophils % (A) 2 %; HCT 37.2 % (34.0-46.0); HGB 12.7 gm/dL (11.4-16.0); Lymphocytes # (A) 1.3 k/uL (1.0-4.8); Lymphocytes % (A) 14 %; MCH 32.5 pg (25.0-35.0); MCV 95.6 fL (80.0-100.0); Mean Platelet Volume 6.8; Monocytes # (A) 0.3 k/uL (0-1.0); Monocytes % (A) 3 %; Neutrophils # (A) 7.7 k/uL (1.3-7.7); Neutrophils % (A) 80 %; Platelet Count 215 k/uL (150-450); RBC 3.89 m/uL (3.80-5.40); RDW 12.4 % (11.5-15.5); WBC 9.7 k/uL (3.8-10.6)
[2017-07-03 21:04] LABS: Glucose,Whole Blood 43 mg/dL (75-99)
[2017-07-03] MEDS ORDERED: DEXTROSE 10% IN WATER 1,000 ML IV ONE (21:55)
[2017-07-03 22:01] LABS: Appearance,Urine Cloudy (Clear); Bacteria,Urine Occasional /hpf; Bilirubin,Urine Negative (Negative); Blood,Urine Large (Negative); Calcium Oxalate Crystals,Urine Moderate /hpf; Color,Urine Yellow; Glucose,Urine (UA) 3+ (Negative); Ketones,Urine Negative (Negative); Leukocyte Esterase,Urine Large (Negative); Mucus,Urine Occasional /hpf; Nitrite,Urine Negative (Negative); Protein,Urine Trace (Negative); RBC,Urine >182 /hpf (0-5); Specific Gravity,Urine 1.025 (1.001-1.035); Squamous Epithelial Cell,Urine 2 /hpf (0-4); Urobilinogen,Urine <2.0 mg/dL (<2.0); WBC,Urine 12 /hpf (0-5)
[2017-07-03 22:23] LABS: Glucose,Whole Blood 29 mg/dL (75-99)
[2017-07-03 22:23] LABS: Glucose,Whole Blood 45 mg/dL (75-99)
[2017-07-03 22:31] LABS: Glucose,Whole Blood 167 mg/dL (75-99)
[2017-07-03] MEDS ORDERED: ONDANSETRON 4 MG/2 ML VIAL IVP PRN (22:39)
[2017-07-03] MEDS ORDERED: ACETAMINOPHEN TAB 325 MG TAB PO PRN (22:39)
[2017-07-03] MEDS ORDERED: NALOXONE 0.4 MG/ML 1 ML VIAL IV PRN (22:39)
[2017-07-03 23:53] LABS: Glucose,Whole Blood 37 mg/dL (75-99)
[2017-07-04 00:25] VITALS: BP 103/61; PULSE 87; RESP 17; TEMP 97.4
[2017-07-04 00:34] VITALS: BMI 30.2
[2017-07-04 00:38] LABS: Glucose,Whole Blood 42 mg/dL (75-99)
[2017-07-04 00:38] LABS: Glucose,Whole Blood 34 mg/dL (75-99)
[2017-07-04 01:08] LABS: Glucose,Whole Blood 70 mg/dL (75-99)
--- NOTE | 2017-07-05 20:10 | DS ---
DISCHARGE SUMMARY DATE OF ADMISSION: 07/03/17. DATE LEFT AGAINST MEDICAL ADVICE: 07/04/17. FINAL DIAGNOSIS: Hypoglycemia. HOSPITAL COURSE: This patient presented to the ER with of yet another episode of hypoglycemia, was admitted to the floor with a drip of D10. I was called in the early hours of the morning, probably around 2 in the morning. Sugars were doing better like 167. Then patient had gone to the bathroom and suddenly her sugar dropped down to 37. The nurse went to check the bag the patient had in which there was insulin and there was a syringe of insulin. When they confronted the patient, the patient said it was there from before, an old one, and decided to leave AGAINST MEDICAL ADVICE. The patient was not seen by me or examined by me. The patient left AGAINST MEDICAL ADVICE. MMLAURENT / MONTY: [id number] /
== END 2017-07-04 01:20 | disposition left against medical advice (07) ==
LOC: EC 19:38 → 3OBS 22:03
PROVIDERS: ADMIT Hospitalist; ATTEND Hospitalist
DX: E16.2 Hypoglycemia, unspecified (principal); R10.9 Unspecified abdominal pain; Z53.21 Procedure and treatment not carried out due to patient leaving prior to being seen by health care provider; J45.909 Unspecified asthma, uncomplicated; G40.909 Epilepsy, unspecified, not intractable, without status epilepticus; E07.9 Disorder of thyroid, unspecified; Z87.11 Personal history of peptic ulcer disease; Z86.14 Personal history of Methicillin resistant Staphylococcus aureus infection; R00.0 Tachycardia, unspecified; F41.9 Anxiety disorder, unspecified; F32.9 Major depressive disorder, single episode, unspecified; Z98.84 Bariatric surgery status; Z88.8 Allergy status to other drugs, medicaments and biological substances; Z79.899 Other long term (current) drug therapy; Z79.3 Long term (current) use of hormonal contraceptives; Z80.0 Family history of malignant neoplasm of digestive organs; Z80.8 Family history of malignant neoplasm of other organs or systems
CPT/HCPCS: 96365 ×2; 96376 ×4; 99285; 36415; 80053; 82009; 85025; 81001; G0378 ×2

== ENCOUNTER → 2017-08-01 | Outpatient (CLI) | payer OTHER ==
--- NOTE | 2017-08-01 11:57 | P.PN ---
Progress Note - Text Progress Note Date: 08/01/17 This is a 36-year-old female with history of lower back and mid back and neck pain. The patient has been having increasing headache for the last 2 weeks that starts in the occiput and extends to the frontal areas bilaterally. He describes her headache as steady pain that is associated with nausea and photosensitivity. She also feels pain in her neck with radiation to the left arm with spasm in the medial 2 fingers of the left arm. The patient has been on steroids and she gained a lot of weight because of that and she has been taking steroids for history of asthma. She also has a history of hypoglycemia and she is waiting to see an thermoplastic technician for this problem however she thinks that when she takes steroids she gets hyperglycemia and when she stopps using them her blood sugar goes too much down. In addition to above, 13-point review of systems is also negative for chest pain , shortness of breath, changes in vision, changes in hearing, new onset weakness , abdominal pain, diarrhea, extreme fatigue, malaise, fever, skin changes, homicidal or suicidal ideation, or bowel or bladder incontinence. Vital Signs: Reviewed in EMR Gen: WDWN, AAOx3, NAD HEENT: NCAT, EOMI, hearing grossly normal Pulm: resp unlabored Abd: soft, NT, ND Neck: supple, trachea midline Neuro exam of the upper extremities showed normal and symmetrical deep tendon reflexes and symmetrical muscle strength bilaterally. She has tenderness in the cervical paravertebral area more on the left side than the right side. She has reduced range of motion of the cervical spine especially to left rotation. Neuro: CN II-XII grossly intact, muscle strength lower extremities PRESERVED Imaging: Reviewed in EMR Assessment: 1. thoracic disc herniations 2. Cervical myofascial pain/left cervical radiculopathy 3. chronic pain syndrome 4. cervical cancer Plan: 1. Explanation: Opioid and psychological risk scores were reviewed. Diagnoses , prognoses, and multiple treatment options including but not limited to physical therapy, interventional therapies, adjuvant medical therapies, narcotic medication therapies, and surgery were discussed with the patient and all questions were answered to the patient's satisfaction. 2. Opioid agreement: Patient has previously signed narcotic agreement, and was orally counseled to not overuse, abuse, divert, or cell medications, and to take them as prescribed by only 1 healthcare provider. The patient was also counseled to store opioid medications in a safe and preferably locked location. Patient was also counseled against driving or operating heavy equipment while using narcotic medications and also to not use alcohol or any illicit or recreational drugs. The patient verbalized understanding that lack of compliance with any of the above and likely result in failure to renew narcotic prescriptions, possible discharge from the clinic, and possible legal ramifications thereafter if indicated. 3. Counseling: The patient was counseled extensively on BODY MASS INDEX, EXERCISE. Specifically, the patient was instructed regarding the importance of weight control, and exercise in the context of both chronic pain and overall health. 4. Procedures: Trigger point injection in the cervical paravertebral musculature 5. Consultations: The patient may need to see her neurologist of her headache continues 6. Investigations: We may need to order an MRI of the cervical spine because of her left cervical radiculopathy. 7. Medications: The patient has enough medication until August 26 8. Disposition: f/u for procedure as scheduled PQRS measures: 1-Patient's medications are documented in the chart. 2-Tobacco use is negative 3-Patient has had a pneumococcal vaccine. 4-Advanced care planning discussed, patient unable to give. 5-Opioid contract signed with the patient. 6-Pain positive, follow-up visit or procedure scheduled 7-Patient's blood pressure measured and documented, and patient will follow up with the primary care due to hypertension. 8-Patient's weight was measured, and body mass index ABOVE the normal limits, and counseling was done. Patient instructed to follow up with PCP. 9-Patient WAS NOT identified as an unhealthy alcohol user.
[2017-08-01 12:07] VITALS: BP 126/86; PULSE 102; RESP 18
== END | disposition home or self-care (01) ==
LOC: PNWHC3 11:33
PROVIDERS: ATTEND Anesthesiology
DX: G89.4 Chronic pain syndrome (principal); C76.0 Malignant neoplasm of head, face and neck; M51.24 Other intervertebral disc displacement, thoracic region; Z79.52 Long term (current) use of systemic steroids
CPT/HCPCS: 99211

== ENCOUNTER 2017-08-06 09:19 | Day surgery (SDC) | payer OTHER ==
[2017-08-05 11:11] VITALS: BMI 30.2
[2017-08-06] MEDS ORDERED: ONDANSETRON 4 MG/2 ML VIAL ONE (09:54)
[2017-08-06 09:59] VITALS: RESP 18; TEMP 97
[2017-08-06] MEDS ORDERED: LIDOCAINE 1% 20 ML VIAL (10MG/ML) FOR IV START INTRADERMA ONE (09:59)
[2017-08-06] MEDS ORDERED: ONDANSETRON 4 MG/2 ML VIAL IVP ONE (10:00)
--- NOTE | 2017-08-06 10:56 | P.PCN ---
Date of Procedure: 08/06/17 Preoperative Diagnosis: Myofascial pain in the neck and shoulders Postoperative Diagnosis: Same as above Procedure(s) Performed: Trigger point injection in the cervical paravertebral musculature and the trapezius muscles bilaterally. Anesthesia: MAC (IV moderate conscious sedation with fentanyl and Versed) Surgeon: Virgen Matthew Condition: stable Disposition: PACU Description of Procedure: The patient was seen in preop holding area and the trigger points were marked at the skin level and then she was brought into the procedure room and placed in prone position. Skin was prepped with DuraPrep and then I used 1.5 inch 25- gauge needle to go through the marked spots on the skin and injected 1 mL of a solution made up of 7 MLS of Marcaine 0.25% +20 mg of Depo-Medrol. 1 mL of the solution was given in each trigger point and a total of 7 MLS were given. Patient tolerated procedure well. She was discharged in stable condition and she will be seen in the office in a few weeks.
[2017-08-06] MEDS ORDERED: IV FLUID CONTINUATION 1,000 ML IV ONE (11:04)
[2017-08-06 11:23] VITALS: BP 103/74; PULSE 91
== END 2017-08-06 11:37 | disposition home or self-care (01) ==
LOC: ORPAIN 09:19
PROVIDERS: ATTEND Anesthesiology
DX: M79.1 Myalgia (principal); J45.909 Unspecified asthma, uncomplicated; Z88.8 Allergy status to other drugs, medicaments and biological substances; Z79.51 Long term (current) use of inhaled steroids; Z79.899 Other long term (current) drug therapy
CPT/HCPCS: 20553; 81025; J2250; J1030; J2405; J3010

== ENCOUNTER → 2017-08-27 | Outpatient (CLI) | payer OTHER ==
[2017-08-27 14:11] VITALS: BP 128/79; PULSE 85; RESP 16
--- NOTE | 2017-08-27 14:40 | P.PN ---
Subjective Progress Note Date: 08/27/17 This is follow-up visit for this patient with a history of severe and chronic neck pain, and low back pain secondary to lumbar degenerative disc disease, lumbar facet arthropathy, and cervical spondylosis ,we have done radiofrequency ablation of the medial branch lumbar area in 2016 and she had excellent relief of her low back pain , greater on the done radiofrequency ablation of the medial branch cervical area , and her neck pain and improved, over the last few weeks she reported that she started having severe low back pain mainly on the left side , she denies any motor or sensory deficit she denies any change in bowel movement or urination , no fever or night sweats patient currently on [place] 7.5/325 every 6 hours , Lyrica 75 mg 3 times a day Patient denies any side effects of the medication, denies excessive drowsiness or sleepiness, denies suicidal ideation, and reports that the current pain medication is NOT helping To control the pain and improve activity of daily living . Patient denies any motor or sensory deficit, denies change in bowel movement or urination, patient denies any fever or night sweats and patient here for follow-up visit and medication refill Objective - Vital Signs Vital signs: Vital Signs Temp Pulse 85 08/27/17 13:53 Resp 16 08/27/17 13:53 BP 128/79 08/27/17 13:53 Pulse Ox 100 08/27/17 13:53 Intake & Output 08/26/17 08/27/17 08/27/17 18:59 06:59 18:59 Weight 72.575 kg - Exam Physical Examinations : 1-Constitutiona : Cooperative , not in acute distress . 2-HEENT : nech ; supple , no Lymphadenopathy , normal thyroid size . eyes : no ptosis , no icterus, no photophobia . ENT : normal of hearing , normal oropharynx , no Thrush . 3- Respiratory : Chest clear to auscultations Bilaterally , no wheezing , no Rhonchi . 4- Cardiovascular : regular rate and rhythem , S1 , S2 , no S3 , no S4. 5- Gastrointestinal : abdomen soft no tenderness , bowel sounds positive all four quadrents , no organomegally . 6- Genitourinary : Defferred . 7- neurologic : Cranial nerve II to XII intact , no focal neurological deffecit . 8-psychatric : alert , oriented X 3 , appropriate affect , intact judgment and insight . 9-Lymphatic : no Lymphadenopathy . 10- musculoskeltal : cervical spine = motor stregnth in the deltoid and biceps, motor stregnth biceps and the wrist extensors (C6) . motor stregnth in the triceps muscle . deep tendon reflexes normal at the biceps , normal at Brachioradialis , normal at the Triceps positive cervical facet loading test . , Lumber spine = normal moter stegnth lower extremities ,thigh and legs .5/5 deep tendon reflexes : normal Knee Jerk , normal ankle Jerk . lumber facet Loading Test positive strait leg raising test negative bilaterally Fabere test negative bilaterally Assessment and Plan Plan: Assessment and plan= chronic low back pain secondary to lumbar degenerative disc disease , lumbar spondylosis with lumbar facet arthropathy , ( radiofrequency ablation of the medial branch lumbar area done December 2015 ) Chronic neck pain secondary to cervical spondylosis improved after the radiofrequency of the medial branch cervical area chronic and current use of high-risk medication (opioids) Patient denies any side effects of the current pain medication and the current treatment/medication ML and the patient to do activity of daily living , Diagnoses, prognosis, treatment options, including but not limited to physical therapy, medication management, interventional therapies, and surgery, were discussed with the patient All the questions answered Patient signed the narcotic agreement, and he was orally counseled, not to overuse, not to abuse, not to Divert , not tp sell pain medication, and to take it as prescribed only, Patient was counseled not to drive or operate heavy equipment while using narcotic medication, and advised not to use alcohol or any Illicit drugs while using the narcotis, the patient's verbalized understanding that lack of compliance with any of the above instructions and will likely to cause discharge from the pain service, not to renew his narcotic prescriptions Medication managements= patient will be given prescription refills for Lyrica 75 mg 3 times a day dispense 90 with 1 refill, [place] 7.5/325 every 6 hours dispense 20 with 1 refill Patient will be scheduled for radiofrequency ablation of the left side medial branch lumbar area at L3 4, L4 5, L5-S1 ,
== END | disposition home or self-care (01) ==
LOC: PNWHC3 13:42
PROVIDERS: ATTEND Specialist
DX: G89.29 Other chronic pain (principal); M51.36 Other intervertebral disc degeneration, lumbar region; M47.816 Spondylosis without myelopathy or radiculopathy, lumbar region; M46.86 Other specified inflammatory spondylopathies, lumbar region; M47.812 Spondylosis without myelopathy or radiculopathy, cervical region; Z98.890 Other specified postprocedural states; Z79.891 Long term (current) use of opiate analgesic; Z79.899 Other long term (current) drug therapy
CPT/HCPCS: 99211

== ENCOUNTER 2017-09-09 08:19 | Day surgery (SDC) | payer OTHER ==
[2017-09-03 08:23] VITALS: BMI 28.3
[2017-09-09 08:47] VITALS: RESP 16; TEMP 99.7
[2017-09-09] MEDS ORDERED: LACTATED RINGERS 1,000 ML IV ONE (08:53)
[2017-09-09] MEDS ORDERED: LIDOCAINE 1% 20 ML VIAL (10MG/ML) FOR IV START INTRADERMA ONE (08:56)
--- NOTE | 2017-09-09 09:23 | P.PCN ---
Date of Procedure: 09/09/17 Surgeon: Dragan Cline Pathology: none sent Condition: stable Disposition: PACU Description of Procedure: PREOPERATIVE DIAGNOSIS: Lumbar spondylosis without myelopathy and facet arthropathy POSTOPERATIVE DIAGNOSIS: Lumbar spondylosis without myelopathy and facet arthropathy PROCEDURES: Left Radiofrequency thermocoagulation, L3-L4, L4-L5, and L5-S1 medial branch, with fluoroscopic guidance. ANESTHESIA: 1% lidocaine plain; Conscious sedation with versed/fentanyl EBL: Minimal PROCEDURE INDICATION: The patient with low back pain secondary to lumbar arthropathy who had more than 50% relief of pain with previous diagnostic lumbar medial branch block with bupivacaine. Patient presents for left lumbar MB RFA today; no use of blood thinners. Patient has had pain shooting down her left leg for past two months prior to procedure today. PROCEDURE DESCRIPTION / TECHNIQUE: The patient was seen and identified in the preoperative area. Risks, benefits, complications, and alternatives were discussed with the patient (including but not limited to incomplete pain relief , bleeding, infection, nerve damage, and allergies to medications), the patient agreed to proceed with the procedure and signed the consent after all questions were answered. Patient was taken to the OR and time out was completed to verify proper patient , position, laterality of pain, and allergies. Pt was placed in the prone position. IV was started. Vital signs remained stable throughout the procedure. A pillow was placed under the patients chest to decrease lordosis. The lumbosacral area was prepped and draped in the usual sterile fashion. Vital signs were closely monitored during the procedure. Conscious sedation was used during the procedure to decrease patients anxiety. Using AP and then oblique fluoroscopy, the eye of the Willie dog corresponding to the connection between the superior and transverse articular processes of left L3, L4, L5 and top of the sacrum were identified, marked, and localized with 1% lidocaine. Subsequently, a 18 gauge, 100-mm radiofrequency cannula with a 10-mm active tip was advanced guided by fluoroscopy to each of the eyes of the Willie dog at the levels of all four medial branches. Each site then underwent sensory testing at 50 Hz and 0 to 1 volt and motor testing at 2 Hz and 0 to 3 volt with local stimulation, but no radicular symptoms down the legs. Thereafter all four medial branch sites underwent radiofrequency thermocoagulation at 80 degrees Celsius for 90 seconds after injecting 0.5 ml of PF lidocaine 1%. After thermocoagulation, 1 ml of the block solution containing Kenalog 40 mg and 2 mL of preservative-free normal saline was injected at all four medial branch levels after negative aspiration of CSF and blood and with no paresthesias. Cannulas were retracted while injecting lidocaine 1% until the needles were removed. At the end of the procedure, the skin was cleansed and bandages were applied. COMPLICATIONS: No acute complications. DISPOSITION / PLANS: The patient was placed in a supine position and transferred to the recovery area in a stable condition for observation and was discharged from the recovery room after meeting discharge criteria. Home discharge instructions given to the patient by the staff. The patient was reexamined prior to discharge and there were no issues. The patient will schedule a follow up in the clinic in 4-6 weeks.
[2017-09-09] MEDS ORDERED: IV FLUID CONTINUATION 1,000 ML IV ONE (09:28)
[2017-09-09 09:43] VITALS: BP 111/77; PULSE 77
--- NOTE | 2017-09-09 11:17 | FL ---
Fluoroscopy HISTORY: Pain 13 seconds fluoroscopy time supplied to the referring clinician. 3 intraoperative C-arm images docum ent the procedure. See dictated report from anesthesia.
== END 2017-09-09 10:02 | disposition home or self-care (01) ==
LOC: ORPAIN 08:19
PROVIDERS: ATTEND Anesthesiology
DX: G89.29 Other chronic pain (principal); M47.816 Spondylosis without myelopathy or radiculopathy, lumbar region; M51.36 Other intervertebral disc degeneration, lumbar region; Z79.891 Long term (current) use of opiate analgesic; Z88.8 Allergy status to other drugs, medicaments and biological substances; Z79.899 Other long term (current) drug therapy
CPT/HCPCS: 81025; 64635; 64636 ×2; J2250; J3301; J3010; 99152

== ENCOUNTER 2017-09-17 15:53 | Emergency (ER) | payer OTHER ==
[2017-09-17 15:57] VITALS: TEMP 98.6
[2017-09-17] MEDS ORDERED: RX INFO: IV CONTRAST WAS GIVEN 1 EACH MISC MISCELLANE PRN (18:05)
[2017-09-17] MEDS ORDERED: SODIUM CHLORIDE 0.9% 2,000 ML IV ONE (18:06)
[2017-09-17] MEDS ORDERED: ONDANSETRON 4 MG/2 ML VIAL IVP STA (18:06)
[2017-09-17] MEDS ORDERED: SODIUM CHLORIDE 0.9% 1,000 ML IV SCH (18:15)
[2017-09-17 18:30] LABS: Appearance,Urine Cloudy (Clear); Bacteria,Urine Rare /hpf; Bilirubin,Urine Negative (Negative); Blood,Urine Moderate (Negative); Color,Urine Yellow; Glucose,Urine (UA) Negative (Negative); Ketones,Urine 1+ (Negative); Leukocyte Esterase,Urine Small (Negative); Mucus,Urine Rare /hpf; Nitrite,Urine Negative (Negative); Protein,Urine Trace (Negative); RBC,Urine >182 /hpf (0-5); Specific Gravity,Urine 1.023 (1.001-1.035); Squamous Epithelial Cell,Urine 6 /hpf (0-4); Urobilinogen,Urine <2.0 mg/dL (<2.0); WBC,Urine 8 /hpf (0-5)
[2017-09-17] MEDS ORDERED: KETOROLAC 30 MG/ML 1 ML VIAL IVP STA (18:50)
[2017-09-17 18:55] LABS: Basophils % (A) 1 %; Eosinophils # (A) 0.1 k/uL (0-0.7); Eosinophils % (A) 1 %; HCT 35.6 % (34.0-46.0); HGB 12.8 gm/dL (11.4-16.0); Hyperchromasia Slight; Lymphocytes # (A) 1.6 k/uL (1.0-4.8); Lymphocytes % (A) 28 %; MCH 32.4 pg (25.0-35.0); MCHC 35.9 g/dL (31.0-37.0); MCV 90.3 fL (80.0-100.0); Mean Platelet Volume 7.1; Monocytes # (A) 0.3 k/uL (0-1.0); Monocytes % (A) 5 %; Neutrophils # (A) 3.8 k/uL (1.3-7.7); Neutrophils % (A) 65 %; Platelet Count 242 k/uL (150-450); RBC 3.95 m/uL (3.80-5.40); RDW 12.1 % (11.5-15.5); WBC 5.8 k/uL (3.8-10.6)
[2017-09-17 19:09] LABS: Albumin 4.1 g/dL (3.5-5.0); Calcium 9.5 mg/dL (8.4-10.2); Potassium 3.6 mmol/L (3.5-5.1); Total Bilirubin 0.3 mg/dL (0.2-1.3); Total Protein 6.2 g/dL (6.3-8.2)
--- NOTE | 2017-09-17 19:18 | CT ---
EXAMINATION TYPE: CT abdomen pelvis wo con DATE OF EXAM: 09/17/2017 COMPARISON: 06/22/2017 HISTORY: Nausea, vomiting, diarrhea and right side abd pain. CT DLP: 331.1 mGycm Automated exposure control for dose reduction was used. TECHNIQUE: Helical acquisition of images was performed from the lung bases through the pelvis. FINDINGS: There is bariatric surgery. Liver appears normal. Lung bases are clear. Bile ducts are not dilated. T here is no pleural effusion. Spleen appears normal. There is no pancreatic mass. There are clips from cholecystectomy. There is no adrenal mass. Kidneys have normal size and contour. There is no hydronephrosis. There is possible 1 mm calculus in the lower pole right kidney. There is no retroperitoneal adenopathy. There is no ascites. Bladder distends smoothly. There is no sign of a pelvic mass. There is no free fluid i n the pelvis. Uterus is retroverted. Lumbar spine is intact. I see no intestinal wall thickening. The re are no dilated loops. There is no sign of appendicitis. IMPRESSION: TINY RIGHT RENAL CALCULUS. NO SIGN OF ACUTE ABDOMEN AND PELVIS. I DO NOT SEE A CAUSE FOR RIGHT-SIDED ABDOMINAL PAIN. NO ADVERSE CHANGE COMPARED TO OLD EXAM.
--- NOTE | 2017-09-17 19:25 | ED ---
Abdominal Pain HPI - General Chief Complaint: Abdominal Pain Stated Complaint: NVD Time Seen by Provider: 09/17/17 18:00 Source: patient, RN notes reviewed Mode of arrival: ambulatory Limitations: no limitations - History of Present Illness Initial Comments: This a 36-year-old female presents emergency Department chief complaint of nausea, vomiting, diarrhea and abdominal pain. Patient states his symptoms started within the last 24 hours she can with a right-sided abdominal pain. Patient's had a prior cholecystectomy and gastric bypass. Patient states that the pain is on her right lower quadrant she has no upper abdominal pain. She denies any vaginal bleeding, vaginal discharge or urinary frequency. She has no dysuria. She has had a history kidney stones. Patient denies any chest pain , shortness breath, fever, chills or any back pain this time. Patient denies any contacts with some her symptoms. - Related Data Home Medications Medication Instructions Recorded Confirmed Levalbuterol Nebulized [Xopenex 0.63 mg INHALATION RT-QID PRN 09/30/13 09/17/17 Nebulized] Montelukast [Singulair] 10 mg PO HS 09/30/13 09/17/17 Levalbuterol Hfa Inhaler [Xopenex 2 puff INHALATION RT-Q6H PRN 01/07/14 09/17/17 Hfa Inhaler] ARIPiprazole [Abilify] 5 mg PO QAM 05/04/14 09/17/17 Medroxyprogesterone Acetate 150 mg IM Q90D 11/07/15 09/17/17 [Depo-Provera] traZODone HCL [Desyrel] 100 mg PO 11/21/15 09/17/17 Flunisolide [Aerospan] 2 puff INHALATION RT-BID 06/28/16 09/17/17 Omalizumab [Xolair] 300 mg SQ Q30D 06/28/16 09/17/17 Levothyroxine Sodium [Synthroid] 137 mcg PO DAILY 07/18/16 09/17/17 Famotidine [Pepcid] 20 mg PO BID 10/02/16 09/17/17 Metoprolol Tartrate [Lopressor] 12.5 mg PO BID 06/12/17 09/17/17 PARoxetine [Paxil] 20 mg PO DAILY 08/27/17 09/17/17 Previous Rx's Medication Instructions Recorded Ondansetron Odt [Zofran ODT] 4 mg PO Q8HR PRN #12 tab 01/31/17 HYDROcodone/APAP 7.5-325MG [[place] 1 tab PO Q6HR PRN #120 tab 06/18/17 7.5-325] Pregabalin [Lyrica] 75 mg PO TID #90 cap 06/18/17 Acetaminophen-Codeine 300-30mg 1 tab PO Q4H PRN #12 tablet 09/17/17 [Tylenol #3] Ibuprofen [Motrin] 600 mg PO Q8HR PRN #30 tab 09/17/17 Ondansetron Odt [Zofran Odt] 4 mg PO Q8HR PRN #10 tab 09/17/17 Allergies Allergy/AdvReac Type Severity Reaction Status Date / Time albuterol AdvReac Rapid Verified 09/17/17 18:38 Heart Rate Review of Systems ROS Statement: Those systems with pertinent positive or pertinent negative responses have been documented in the HPI. ROS Other: All systems not noted in ROS Statement are negative. Past Medical History Past Medical History: Asthma, Cancer, Seizure Disorder, Thyroid Disorder Additional Past Medical History / Comment(s): TACHYCARDIA, peptic ulcers, anemia."HAS BEEN ON VENTILATOR IN PAST D/T SEVERE ASTHMA ATTACK, BULEMIA-STATES GETTING BETTER, CONSTIPATION. PAST ULCER, HERNIATED DIS,FX RT FOOT IN DEC AND RE -FX 05/15/17 . RECENT INFECTION POST TOOTH EXTRACTION. recently dx. with cervical ca. Migraines. History of Any Multi-Drug Resistant Organisms: MRSA Date of last positivie culture/infection: 08/25/14 MDRO Source:: rt Groin Past Surgical History: Bariatric Surgery, Cholecystectomy, Orthopedic Surgery, Tonsillectomy Additional Past Surgical History / Comment(s): tilt table test, lap band 2007; NASAL FX REPAIR , ORIF LT ELBOW X2, PAIN PROCEDURES for migraines. Surgery on her cervix for cancer. States is going to have a hysterectomy soon. Past Anesthesia/Blood Transfusion Reactions: Postoperative Nausea & Vomiting ( PONV) Past Psychological History: Anxiety, Depression Smoking Status: Never smoker Past Alcohol Use History: None Reported Past Drug Use History: None Reported - Past Family History Mother Family Medical History: Pneumonia Additional Family Medical History / Comment(s): Mother of pneumonia. Patient's son of brain cancer, last mother and father both liver cancer Son(s) Family Medical History: Cancer Additional Family Medical History / Comment(s): Son of brain cancer. Father Family Medical History: Cancer, Liver Disease Additional Family Medical History / Comment(s): Father has liver cancer with surgery. He has hepatitis. General Exam Limitations: no limitations General appearance: alert, in no apparent distress Head exam: Present: atraumatic, normocephalic, normal inspection Eye exam: Present: normal appearance, PERRL, EOMI. Absent: scleral icterus, conjunctival injection, periorbital swelling Respiratory exam: Present: normal lung sounds bilaterally. Absent: respiratory distress, wheezes, rales, rhonchi, stridor Cardiovascular Exam: Present: regular rate, normal rhythm, normal heart sounds. Absent: systolic murmur, diastolic murmur, rubs, gallop, clicks GI/Abdominal exam: Present: soft, tenderness (Mild right lower quadrant tenderness), normal bowel sounds. Absent: distended, guarding, rebound, rigid Back exam: Absent: CVA tenderness (R), CVA tenderness (L) Skin exam: Present: warm, dry, intact, normal color. Absent: rash Course Vital Signs 09/17/17 09/17/17 15:55 18:29 Temperature 98.6 F Pulse Rate 110 H 70 Respiratory 20 18 Rate Blood Pressure 150/71 121/75 O2 Sat by Pulse 99 97 Oximetry Medical Decision Making - Medical Decision Making This is a 36-year-old female presented for nausea vomiting diarrhea and abdominal pain. Patient lab work shows hematuria urinalysis with normal labs. Patient has CT there is a tiny stone within the kidney no evidence of ureteral calculi though she may have passed a stone. Patient also may have some underlying viral GI illness. She was hydrated, given IV fluids. Patient be discharged with short course of pain meds, antiemetics. - Lab Data Result diagrams: 09/17/17 18:47 09/17/17 18:47 Lab Results 09/17/17 09/17/17 09/17/17 Range/Units 18:07 18:07 18:47 WBC (3.8-10.6) k/uL RBC (3.80-5.40) m/uL Hgb (11.4-16.0) gm/dL Hct (34.0-46.0) % MCV (80.0-100.0) fL MCH (25.0-35.0) pg MCHC (31.0-37.0) g/dL RDW (11.5-15.5) % Plt Count (150-450) k/uL Neutrophils % % Lymphocytes % % Monocytes % % Eosinophils % % Basophils % % Neutrophils # (1.3-7.7) k/uL Lymphocytes # (1.0-4.8) k/uL Monocytes # (0-1.0) k/uL Eosinophils # (0-0.7) k/uL Basophils # (0-0.2) k/uL Hyperchromasia Sodium 145 (137-145) mmol/L Potassium 3.6 (3.5-5.1) mmol/L Chloride 107 (98-107) mmol/L Carbon Dioxide 24 (22-30) mmol/L Anion Gap 14 mmol/L BUN 13 (7-17) mg/dL Creatinine 1.00 (0.52-1.04) mg/dL Est GFR (CKD-EPI)AfAm 84 (>60 ml/min/1.73 sqM) Est GFR (CKD-EPI)NonAf 73 (>60 ml/min/1.73 sqM) Glucose 94 (74-99) mg/dL Calcium 9.5 (8.4-10.2) mg/dL Total Bilirubin 0.3 (0.2-1.3) mg/dL AST 13 L (14-36) U/L ALT 17 (9-52) U/L Alkaline Phosphatase 60 (38-126) U/L Total Protein 6.2 L (6.3-8.2) g/dL Albumin 4.1 (3.5-5.0) g/dL Amylase 90 (30-110) U/L Lipase 125 (23-300) U/L Urine Color Yellow Urine Appearance Cloudy H (Clear) Urine pH 6.0 (5.0-8.0) Ur Specific [place] 1.023 (1.001-1.035) Urine Protein Trace H (Negative) Urine Glucose (UA) Negative (Negative) Urine Ketones 1+ H (Negative) Urine Blood Moderate H (Negative) Urine Nitrite Negative (Negative) Urine Bilirubin Negative (Negative) Urine Urobilinogen <2.0 (<2.0) mg/dL Ur Leukocyte Esterase Small H (Negative) Urine RBC >182 H (0-5) /hpf Urine WBC 8 H (0-5) /hpf Ur Squamous Epith Cells 6 H (0-4) /hpf Urine Bacteria Rare H (None) /hpf Urine Mucus Rare H (None) /hpf Urine HCG, Qual Not Detected (Not Detectd) 09/17/17 Range/Units 18:47 WBC 5.8 (3.8-10.6) k/uL RBC 3.95 (3.80-5.40) m/uL Hgb 12.8 (11.4-16.0) gm/dL Hct 35.6 (34.0-46.0) % MCV 90.3 (80.0-100.0) fL MCH 32.4 (25.0-35.0) pg MCHC 35.9 (31.0-37.0) g/dL RDW 12.1 (11.5-15.5) % Plt Count 242 (150-450) k/uL Neutrophils % 65 % Lymphocytes % 28 % Monocytes % 5 % Eosinophils % 1 % Basophils % 1 % Neutrophils # 3.8 (1.3-7.7) k/uL Lymphocytes # 1.6 (1.0-4.8) k/uL Monocytes # 0.3 (0-1.0) k/uL Eosinophils # 0.1 (0-0.7) k/uL Basophils # 0.0 (0-0.2) k/uL Hyperchromasia Slight Sodium (137-145) mmol/L Potassium (3.5-5.1) mmol/L Chloride (98-107) mmol/L Carbon Dioxide (22-30) mmol/L Anion Gap mmol/L BUN (7-17) mg/dL Creatinine (0.52-1.04) mg/dL Est GFR (CKD-EPI)AfAm (>60 ml/min/1.73 sqM) Est GFR (CKD-EPI)NonAf (>60 ml/min/1.73 sqM) Glucose (74-99) mg/dL Calcium (8.4-10.2) mg/dL Total Bilirubin (0.2-1.3) mg/dL AST (14-36) U/L ALT (9-52) U/L Alkaline Phosphatase (38-126) U/L Total Protein (6.3-8.2) g/dL Albumin (3.5-5.0) g/dL Amylase (30-110) U/L Lipase (23-300) U/L Urine Color Urine Appearance (Clear) Urine pH (5.0-8.0) Ur Specific [place] (1.001-1.035) Urine Protein (Negative) Urine Glucose (UA) (Negative) Urine Ketones (Negative) Urine Blood (Negative) Urine Nitrite (Negative) Urine Bilirubin (Negative) Urine Urobilinogen (<2.0) mg/dL Ur Leukocyte Esterase (Negative) Urine RBC (0-5) /hpf Urine WBC (0-5) /hpf Ur Squamous Epith Cells (0-4) /hpf Urine Bacteria (None) /hpf Urine Mucus (None) /hpf Urine HCG, Qual (Not Detectd) Disposition Clinical Impression: Hematuria, Right flank pain, Nausea & vomiting, Abdominal pain Disposition: HOME SELF-CARE Condition: Stable Instructions: Abdominal Pain (ED) Additional Instructions: Please return to the Emergency Department if symptoms worsen or any other concerns. Prescriptions: Acetaminophen-Codeine 300-30mg [Tylenol #3] 1 tab PO Q4H PRN #12 tablet PRN Reason: pain Ibuprofen [Motrin] 600 mg PO Q8HR PRN #30 tab PRN Reason: Pain Ondansetron Odt [Zofran Odt] 4 mg PO Q8HR PRN #10 tab PRN Reason: Nausea Is patient prescribed a controlled substance at d/c from ED?: Yes If prescribed controlled substance>3 days was MAPS reviewed?: No When asked, does pt state using other controlled substances?: No Referrals: Slade Gonzalez MD [Primary Care Provider] - 1-2 days
[2017-09-17 19:57] VITALS: BP 115/70; PULSE 89; RESP 16
== END 2017-09-17 19:57 | disposition home or self-care (01) ==
LOC: EC 15:53
DX: R31.9 Hematuria, unspecified (principal); R11.2 Nausea with vomiting, unspecified; R10.31 Right lower quadrant pain; R19.7 Diarrhea, unspecified; N20.0 Calculus of kidney; J45.909 Unspecified asthma, uncomplicated; E07.9 Disorder of thyroid, unspecified; F32.9 Major depressive disorder, single episode, unspecified; F41.9 Anxiety disorder, unspecified; Z79.3 Long term (current) use of hormonal contraceptives; Z79.51 Long term (current) use of inhaled steroids; Z79.899 Other long term (current) drug therapy; Z88.8 Allergy status to other drugs, medicaments and biological substances; Z86.14 Personal history of Methicillin resistant Staphylococcus aureus infection; Z90.49 Acquired absence of other specified parts of digestive tract; Z98.84 Bariatric surgery status; Z87.11 Personal history of peptic ulcer disease; Z85.41 Personal history of malignant neoplasm of cervix uteri; Z98.890 Other specified postprocedural states; Z80.0 Family history of malignant neoplasm of digestive organs
CPT/HCPCS: 36415; 80053; 82150; 83690; 85025; 81001; 81025; 74176; 99284; 96374; 96375; 96361 ×2; J2405; J1885

== ENCOUNTER → 2017-10-22 | Outpatient (CLI) | payer OTHER ==
[2017-10-22 12:55] VITALS: BP 134/73; PULSE 95; RESP 18
--- NOTE | 2017-10-22 13:23 | P.PAINPG ---
Subjective Progress Note Date: 10/22/17 Principal diagnosis: Lumbar radicular pain 36 showed normal with a long-standing history of chronic pain problems. She currently today complains of pain in her back which raise down her left leg. She reports that she is scheduled to see the orthopedic pharmacy operations specialist on October 30 regarding her pain problems. She complains that she has been falling a lot recently. She denies a weakness and pain all the way down her left leg. She denies bowel or bladder dysfunction. Objective - Vital Signs Vital signs: Vital Signs Temp Pulse 95 10/22/17 12:48 Resp 18 10/22/17 12:48 BP 134/73 10/22/17 12:48 Pulse Ox 98 10/22/17 12:48 Intake & Output 10/21/17 10/22/17 10/22/17 18:59 06:59 18:59 Weight 73.028 kg - Exam General: The patient is alert and oriented. Patient is not sedateded Patient is a question appropriately. Cardiac: Heart is regular in rate and rhythm Respiratory: Clear to auscultation. No audible wheezes. Abdomen: Soft nontender nondistended. Lower extremities: Strength is normal bilaterally. Sensation is normal bilaterally. Reflexes are preserved and symmetric bilaterally. Straight leg raise is negative bilaterally. The patient demonstrates severely limited ability to flex or extend her spine. She is able to sit easily however without any difficulty. She complains of severe tenderness in her lumbar spine. Assessment and Plan (1) Left lumbar radiculitis Current Visit: Yes Status: Acute Code(s): M54.16 - RADICULOPATHY, LUMBAR REGION SNOMED Code(s): 73854510 Plan: Plan of Care 1. Medications: I will refill the patient's [place] and Lyrica today. I have reviewed her chart and found that she did undergo a urine drug screen in May of this year which was negative for opiates. I will repeat her urine drug screen today. If this is negative for opiates, she will be dismissed from our practice. I have reviewed the patient's MAPS report and it reveals expected results. Patient has signed an opiate agreement as well as opiate consent for treatment in our clinic. They understand the risks and benefits of opiate medications. They are aware of the potential for addiction. She has signed the [place] start talking form today. 2. Interventions: No interventions are indicated this time. The patient is scheduled be seen by a spine surgeon according to her report. 3. Referrals: none 4. Testing: none 5. Psychological: Patient admits to having depression however she denies any suicidal ideation. She reports that her depression stems from the of a young child with a brain tumor. She does work with a mental health specialist regarding this condition. I discussed with her specifically the role that opiates play any exacerbating depression and advised her to discontinue these medications as soon as possible. PQRS Measure Charge Sheet Measure #130: Documentation of Current Meds in Medical Chart: Patient's medications documented in chart Measure #226: Tobacco Use: Screen & Cessation Intervention: Pt not a tobacco user Measure #111: Pneumonia Vaccination: Pneumococcal vaccine NOT administered or previously given Measure #47: Advance Care Plan: Advance care planning discussed & documented, pt chose/unable to give Measure #412: Opioid Treatment Agreement: Documented signed opioid trtmnt agreemnt min once during opioid trtmnt Measure #408: Opioid Therapy Follow-up Evaluation: Patient had f/u eval minimum every 3 months during opioid therapy Measure #317: Preventitive Care & Scrn High Bld Press & F/U: Normal blood pressure, f/u not required Measure #128: Body Mass Index (BMI) Screening & Follow-up: BMI documented ABOVE normal parameters - f/u documented Measure #131: Pain Assessment & Follow-up: Pain positive & plan documented Measure #431: Unhealthy Alcohol Use Preventative Care & Scrn: Patient identified as unhealthy alcohol user; counseling given PQRS Narrative: Smoking Status Never smoker Narcotic Agreement Date Signed 12/14/13 Blood Pressure 134/73 Pain Intensity [Left Lower 4 Back] Scale Used Numeric (1 - 10) Hx Alcohol Use (MH) No Home Medications: Ambulatory Orders Levalbuterol Nebulized [Xopenex Nebulized] 0.63 mg INHALATION RT-QID PRN Montelukast [Singulair] 10 mg PO HS 09/30/13 Levalbuterol Hfa Inhaler [Xopenex Hfa Inhaler] 2 puff INHALATION RT-Q6H PRN ARIPiprazole [Abilify] 5 mg PO QAM 05/04/14 Medroxyprogesterone Acetate [Depo-Provera] 150 mg IM Q90D 11/07/15 traZODone HCL [Desyrel] 100 mg PO HS 11/21/15 Flunisolide [Aerospan] 2 puff INHALATION RT-BID 06/28/16 Omalizumab [Xolair] 300 mg SQ Q30D 06/28/16 Levothyroxine Sodium [Synthroid] 137 mcg PO DAILY 07/18/16 Famotidine [Pepcid] 20 mg PO BID 10/02/16 Metoprolol Tartrate [Lopressor] 12.5 mg PO BID 06/12/17 HYDROcodone/APAP 7.5-325MG [[place] 7.5-325] 1 tab PO Q6HR PRN #120 tab 06/18/17 Pregabalin [Lyrica] 75 mg PO TID #90 cap 06/18/17 PARoxetine [Paxil] 20 mg PO DAILY 08/27/17 Ibuprofen [Motrin] 600 mg PO Q8HR PRN #30 tab 09/17/17 Ondansetron Odt [Zofran Odt] 4 mg PO Q8HR PRN #10 tab 09/17/17 Methylphenidate HCl [[place]] 1 tab PO DAILY 10/22/17 Nelfinavir Mesylate [Viracept] 1 tab PO TID PRN 10/22/17 Pantoprazole Sodium [Protonix] 1 tab PO DAILY 10/22/17 Controlled Substance Measures - Controlled Substance Measures Is patient prescribed a controlled substance at discharge?: Yes When asked, does pt state using other controlled substances?: Yes If prescribed controlled substance>3 days was MAPS reviewed?: Yes If Rx opioid, was Start Talking consent form obtained?: Yes If opioid is for acute pain is fill amount 7 days or less?: No Was information provided regarding opioid addiction?: Yes
== END | disposition home or self-care (01) ==
LOC: PNWHC3 12:13
PROVIDERS: ATTEND Pain Medicine Pain Medicine
DX: G89.29 Other chronic pain (principal); M54.9 Dorsalgia, unspecified; M54.16 Radiculopathy, lumbar region; Z79.1 Long term (current) use of non-steroidal anti-inflammatories (NSAID); Z79.891 Long term (current) use of opiate analgesic; Z79.899 Other long term (current) drug therapy
CPT/HCPCS: 80356; 99211

== ENCOUNTER → 2017-11-14 | Outpatient (CLI) | payer OTHER ==
--- NOTE | 2017-11-14 21:57 | MR ---
EXAMINATION TYPE: MR lumbar spine wo/w con DATE OF EXAM: 11/14/2017 COMPARISON: NONE HISTORY: Neck and Back Pain, Contrast: 7.5 mL Gadavist TECHNIQUE: T1 and T2 axial and sagittal images of the lumbar spine are submitted. FINDINGS: There is no abnormal signal seen within the visualized spinal cord or paraspinal soft tissu es. At L1-2 there is no degenerative disc disease, disc herniation, canal stenosis or foraminal encroachm ent. At L2-3 there is no degenerative disc disease, disc herniation, canal stenosis or foraminal encroachm ent. At L3-4 there is degenerative disc disease and facet arthropathy. No canal stenosis or foraminal encr oachment At L4-5 there is annular tear and broad-based central disc protrusion with facet arthropathy. Moderat e bilateral foraminal encroachment. At L5-S1 there is annular tear and left paracentral disc protrusion. There may be mass effect upon th e exiting left nerve root. There is mild to moderate left foraminal encroachment. IMPRESSION: 1. At L4-5 there is annular tear and broad-based central disc protrusion with facet arthropathy. Mode rate bilateral foraminal encroachment.. 2. At L5-S1 there is annular tear and left paracentral disc protrusion or small herniation. There ma y be mass effect upon the exiting left nerve root. There is mild to moderate left foraminal encroachm ent. EXAMINATION TYPE: MR cervical spine wo/w con DATE OF EXAM: 11/14/2017 COMPARISON: NONE Contrast: 7.5 mL Gadavist HISTORY: Neck and Back Pain, TECHNIQUE: T1 sagittal and coronal, T2 sagittal, and gradient echo axial views of the cervical spine are submitted. FINDINGS: The cranial cervical junction is preserved. There is no abnormal signal seen within the sp inal cord or paraspinal soft tissues. At C2-3 there is uncovertebral joint hypertrophy and circumferential disc bulging but no canal stenos is. There is mild left foraminal encroachment. At C3-4 there is broad-based central disc bulging or small protrusion with uncovertebral joint hypert rophy. Findings greater on the left with mild left foraminal encroachment but no canal stenosis. At C4-5 there is central disc bulging but no canal stenosis. No foraminal encroachment. At C5-6 there is degenerative disc disease. No canal stenosis or foraminal encroachment. Hypertrophic spurring noted anteriorly. At C6-7 there is no foraminal encroachment or canal stenosis. No disc herniation. At C7-T1 there is no disc herniation or canal stenosis. No foraminal encroachment. IMPRESSION: 1. Multilevel disc bulging or protrusion as discussed above with no canal stenosis. Mild left forami nal encroachment at C2-3 and C3-C4 as discussed above.
== END | disposition home or self-care (01) ==
LOC: RADMRIMAIN 20:08
PROVIDERS: ATTEND Physician Assistant Medical
DX: M51.17 Intervertebral disc disorders with radiculopathy, lumbosacral region (principal); M51.27 Other intervertebral disc displacement, lumbosacral region; M46.96 Unspecified inflammatory spondylopathy, lumbar region; M50.122 Cervical disc disorder at C5-C6 level with radiculopathy
CPT/HCPCS: 72156; 72158; A9581

== ENCOUNTER → 2017-11-18 | Outpatient (CLI) | payer OTHER ==
[2017-11-18 13:15] VITALS: BP 113/78; PULSE 83; RESP 18
--- NOTE | 2017-11-18 13:39 | P.PAINPG ---
Subjective Progress Note Date: 11/18/17 Principal diagnosis: Cervical radiculitis, thoracic radiculitis, lumbar radiculitis Objective - Vital Signs Vital signs: Vital Signs Temp Pulse 83 11/18/17 13:04 Resp 18 11/18/17 13:04 BP 113/78 11/18/17 13:04 Pulse Ox 99 11/18/17 13:04 Intake & Output 11/17/17 11/18/17 11/18/17 18:59 06:59 18:59 Weight 73.482 kg - Exam General: The patient is alert and oriented. Patient is not sedateded Patient answers all question appropriately. Cardiac: Heart is regular in rate and rhythm Respiratory: Clear to auscultation. No audible wheezes. Abdomen: Soft nontender nondistended. Lower extremities: Strength is normal bilaterally. Sensation is normal bilaterally. Reflexes are preserved and symmetric bilaterally. Straight leg raise is negative bilaterally. Assessment and Plan (1) Chronic radicular lumbar pain Narrative/Plan: Plan of Care 1. Medications: I will refill the patient's [place] and her Lyrica prescriptions today. She denies any significant side effects or intolerances from these medicines. I have reviewed the patient's MAPS report and it reveals expected results. Patient has signed an opiate agreement as well as opiate consent for treatment in our clinic. They understand the risks and benefits of opiate medications. They are aware of the potential for addiction. 2. Interventions: No interventions are indicated this time. 3. Referrals: Patient will continue to work with her surgeon. She does have a follow-up appointment scheduled. She needs to complete an EMG and some imaging of her thoracic spine prior to seeing the surgeon. She has already had imaging of her lumbar and cervical spine. 4. Testing: No further testing was ordered today. 5. Psychological: Patient will continue to work with her mental health specialist. Current Visit: Yes Status: Acute Code(s): M54.16 - RADICULOPATHY, LUMBAR REGION; G89.29 - OTHER CHRONIC PAIN SNOMED Code(s): 00281397 (2) Radicular pain of thoracic region Current Visit: Yes Status: Acute Code(s): M54.14 - RADICULOPATHY, THORACIC REGION SNOMED Code(s): 64827325 PQRS Measure Charge Sheet Measure #130: Documentation of Current Meds in Medical Chart: Patient's medications documented in chart Measure #226: Tobacco Use: Screen & Cessation Intervention: Pt not a tobacco user Measure #111: Pneumonia Vaccination: Pneumococcal vaccine NOT administered or previously given Measure #47: Advance Care Plan: Advance care planning discussed & documented, pt chose/unable to give Measure #412: Opioid Treatment Agreement: Documented signed opioid trtmnt agreemnt min once during opioid trtmnt Measure #408: Opioid Therapy Follow-up Evaluation: Patient had f/u eval minimum every 3 months during opioid therapy Measure #317: Preventitive Care & Scrn High Bld Press & F/U: Normal blood pressure, f/u not required Measure #128: Body Mass Index (BMI) Screening & Follow-up: BMI documented ABOVE normal parameters - f/u documented Measure #131: Pain Assessment & Follow-up: Pain positive & plan documented Measure #431: Unhealthy Alcohol Use Preventative Care & Scrn: Patient not identified as an unhealthy alcohol user PQRS Narrative: Smoking Status Never smoker Do You Want the Pneumonia Vaccine Up to Date Vaccine AT THIS TIME? Narcotic Agreement Date Signed 12/14/13 Blood Pressure 113/78 Pain Intensity [Back] 4 Scale Used Numeric (1 - 10) Hx Alcohol Use (MH) No Home Medications: Ambulatory Orders Levalbuterol Nebulized [Xopenex Nebulized] 0.63 mg INHALATION RT-QID PRN Montelukast [Singulair] 10 mg PO HS 09/30/13 Levalbuterol Hfa Inhaler [Xopenex Hfa Inhaler] 2 puff INHALATION RT-Q6H PRN ARIPiprazole [Abilify] 5 mg PO QAM 05/04/14 Medroxyprogesterone Acetate [Depo-Provera] 150 mg IM Q90D 11/07/15 traZODone HCL [Desyrel] 100 mg PO HS 11/21/15 Flunisolide [Aerospan] 2 puff INHALATION RT-BID 06/28/16 Omalizumab [Xolair] 300 mg SQ Q30D 06/28/16 Levothyroxine Sodium [Synthroid] 137 mcg PO DAILY 07/18/16 Famotidine [Pepcid] 20 mg PO BID 10/02/16 Metoprolol Tartrate [Lopressor] 12.5 mg PO BID 06/12/17 PARoxetine [Paxil] 20 mg PO DAILY 08/27/17 Ibuprofen [Motrin] 600 mg PO Q8HR PRN #30 tab 09/17/17 Ondansetron Odt [Zofran Odt] 4 mg PO Q8HR PRN #10 tab 09/17/17 Methylphenidate HCl [Concerta] 1 tab PO DAILY 10/22/17 Nelfinavir Mesylate [Viracept] 1 tab PO TID PRN 10/22/17 Pantoprazole Sodium [Protonix] 1 tab PO DAILY 10/22/17 Cephalexin [Keflex] 1 tab PO TID 11/18/17 HYDROcodone/APAP 7.5-325MG [[place] 7.5-325] 1 tab PO Q6HR PRN #120 tab 11/18/17 HYDROcodone/APAP 7.5-325MG [[place] 7.5-325] 1 tab PO Q6HR PRN 3 Days #120 tab Pregabalin [Lyrica] 75 mg PO TID #90 cap 11/18/17 Controlled Substance Measures - Controlled Substance Measures Is patient prescribed a controlled substance at discharge?: Yes When asked, does pt state using other controlled substances?: No If prescribed controlled substance>3 days was MAPS reviewed?: Yes If Rx opioid, was Start Talking consent form obtained?: Yes Was information provided regarding opioid addiction?: Yes
== END | disposition home or self-care (01) ==
LOC: PNWHC3 12:51
PROVIDERS: ATTEND Pain Medicine Pain Medicine
DX: G89.29 Other chronic pain (principal); M54.16 Radiculopathy, lumbar region; M54.14 Radiculopathy, thoracic region; Z79.899 Other long term (current) drug therapy; Z79.891 Long term (current) use of opiate analgesic
CPT/HCPCS: 99211

== ENCOUNTER → 2017-11-19 | Outpatient (CLI) | payer OTHER ==
--- NOTE | 2017-11-19 22:56 | MR ---
EXAMINATION TYPE: MR thoracic spine wo/w con DATE OF EXAM: 11/19/2017 COMPARISON: NONE HISTORY: Mid back pain CONTRAST: Performed utilizing 7.5 mL intravenous Gadavist gadolinium contrast. TECHNIQUE: Multiplanar, multiecho imaging on a 3.0 Loli magnet is performed through the thoracic spi ne. Spinal cord maintains normal signal through its visualized course. Vertebral body alignment is normal. Vertebral body heights are preserved. T7-T8: There is a left paracentral disc bulge with mild anterior thecal sac compression. This is in c lose approximation with the spinal cord. T8-9: There is a right paracentral disc herniation with mild to moderate anterior thecal sac compress ion. This has cord contact and cord flattening. No AP spinal canal stenosis is present. Neural forame n are patent. T10-T11: There is a left paracentral disc bulge with moderate anterior thecal sac compression. This c omes in close approximation with the spinal cord. No AP spinal canal stenosis is present. This has ex tension beyond the endplates of the T10-11 levels. Disc hydration levels are preserved. No suspicious enhancement is evident post contrast. IMPRESSIONS: 1. Large right paracentral disc herniation T10-T11 in close approximation with the spinal cord. 2. Right paracentral disc herniation with mild to moderate anterior thecal sac compression, cord cont act and cord flattening at T8-9. 3. Small left paracentral disc herniation T7-T8 with mild anterior thecal sac compression.
== END | disposition home or self-care (01) ==
LOC: RADMRIMAIN 20:58
PROVIDERS: ATTEND Orthopaedic Surgery
DX: M51.24 Other intervertebral disc displacement, thoracic region (principal); G95.29 Other cord compression; G89.29 Other chronic pain
CPT/HCPCS: 72157; A9581

== ENCOUNTER → 2018-01-13 | Outpatient (CLI) | payer OTHER ==
[2018-01-13 13:07] VITALS: BP 119/70; PULSE 104; RESP 16; TEMP 97.9
--- NOTE | 2018-01-13 13:40 | P.PAINPG ---
Subjective Progress Note Date: 01/13/18 This is follow-up visit for this patient with a history of severe and chronic low back pain secondary to lumbar degenerative disc diseases , lumbar spondylosis with facet arthropathy, We have done interventional pain procedures radiofrequency ablation of the medial branch lumbar area, and patient was complaining of midback pain we ordered thoracic spine MRI and it showed that patient had multilevel thoracic herniated disc disease at T10 11 T8 9 and T7 8, he shouldn't complaining of frequent falls, she was evaluated by a neurologist and he is ruling out MS, patient complaining of severe muscle spasms mostly at night in the cervical area , and the specimen is very intense and severe and mostly at night Patients currently on [place] 7.5/325 every 6 hours, Lyrica 75 mg every 8 hours Patient denies any side effects of the medication, denies excessive drowsiness or sleepiness, denies suicidal ideation, and reports that the current pain medication is helping to control the pain and improve activity of daily living Patient denies any motor or sensory deficit , patient denies any fever or night sweats, denies any change in the bowel movements or urination Physical Examinations : 1-Constitutional : Cooperative , not in acute distress . 2-HEENT : nech ; supple , no Lymphadenopathy , no Thyromegaly , normal thyroid size . eyes : no ptosis , no icterus, no photophobia . ENT : normal of hearing , normal oropharynx , no Thrush . 3- Respiratory : Chest clear to auscultations Bilaterally , no wheezing , no Rhonchi . 4- Cardiovascular : regular rate and rhythem , S1 , S2 , no S3 , no S4. 5- Gastrointestinal : abdomen soft no tenderness , bowel sounds positive all four quadrents , no organomegally . 6- Genitourinary : Defferred . 7- neurologic: Cranial nerve II to XII intact , no focal neurological deffecit . 8- Psychatric: alert , oriented X 3 , appropriate affect , intact judgment and insight . 9- Lymphatic : no Lymphadenopathy . 10- Musculoskeltal : exams of the cervical spine = motor strength normal bilateral upper extremities facet loading test cervical area positive. Multiple trigger points in the cervical paravertebral muscles rhomboid and trapezius muscles examined more than the left side exams of the Lumber spine =motor strength lower extremities ,thigh and legs .5/5 deep tendon reflexes : normal Knee Jerk , normal ankle Jerk . lumber facet Loading Test positive strait leg raising test positive at 30 degree , RT ,LT , Fabere test positive RT and positive LT . Range of motion: Range of motion in flexion of the lumbar spine 30 degrees Range of motion range of motion of extension of the lumbar spine 10 Sever tenderness over the Sacroiliac joint on the Right , and Left side Assessment and plan = Chronic low back pain secondary to lumbar degenerative disc disease , lumbar spondylosis with facet arthropathy without myelopathy Upper back pain secondary to myofascial pain syndrome and cervical area. Midback pain secondary to thoracic herniated disc disease chronic and current use of high-risk medication (Opioids). The patient was counseled about risk of opioid use, psychological risk associated with opioids and was orally counseled to not overuse , divert,or sell dictations to take medications as prescribed only , and to restore medication in safe location , the patient counseled against driving while using narcotic medications , and also not to use alcohol or any illicit recreational drugs, patient's verbalized understanding that the lack of compliance will result in failure to renew narcotic prescription and possible discharge from the clinic - diagnoses, prognosis, and treatment options including but not limited to physical therapy, surgical interventions, interventional therapies , and medication management including narcotics and adjuvant medication were discussed with the patient and all the questions answered Prescription refill for Lyrica 75 mg 3 times a day dispense 90 with 1 refill, [place] 7.5/325 dispense 120 with one refill, Prescription for Zanaflex 4 mg daily at bedtime dispense 30 with one refill, patient could benefit from trigger point injections MAPS reviewed and is appropriate , UDS done today Objective - Vital Signs Vital signs: Vital Signs Temp 97.9 F 01/13/18 13:00 Pulse 104 H 01/13/18 13:00 Resp 16 01/13/18 13:00 BP 119/70 01/13/18 13:00 Pulse Ox 97 01/13/18 13:00 Intake & Output 01/12/18 01/13/18 01/13/18 18:59 06:59 18:59 Weight 74.843 kg PQRS Measure Charge Sheet Measure #130: Documentation of Current Meds in Medical Chart: Patient's medications documented in chart Measure #226: Tobacco Use: Screen & Cessation Intervention: Pt not a tobacco user Measure #111: Pneumonia Vaccination: Pneumococcal vaccine administered or previously received Measure #47: Advance Care Plan: Advance care planning discussed & documented, pt chose/unable to give Measure #412: Opioid Treatment Agreement: Documented signed opioid trtmnt agreemnt min once during opioid trtmnt Measure #408: Opioid Therapy Follow-up Evaluation: Patient had f/u eval minimum every 3 months during opioid therapy Measure #317: Preventitive Care & Scrn High Bld Press & F/U: Normal blood pressure, f/u not required Measure #128: Body Mass Index (BMI) Screening & Follow-up: BMI documented ABOVE normal parameters - f/u documented Measure #131: Pain Assessment & Follow-up: Pain positive & plan documented, Follow-up scheduled Measure #431: Unhealthy Alcohol Use Preventative Care & Scrn: Patient not identified as an unhealthy alcohol user PQRS Narrative: Smoking Status Never smoker Do You Want the Pneumonia Vaccine Up to Date Vaccine AT THIS TIME? Narcotic Agreement Date Signed 12/14/13 Blood Pressure 119/70 Pain Intensity [Posterior Neck 6 ] Scale Used Numeric (1 - 10) Hx Alcohol Use (MH) No Home Medications: Ambulatory Orders Levalbuterol Nebulized [Xopenex Nebulized] 0.63 mg INHALATION RT-QID PRN Montelukast [Singulair] 10 mg PO HS 09/30/13 Levalbuterol Hfa Inhaler [Xopenex Hfa Inhaler] 2 puff INHALATION RT-Q6H PRN ARIPiprazole [Abilify] 5 mg PO QAM 05/04/14 Medroxyprogesterone Acetate [Depo-Provera] 150 mg IM Q90D 11/07/15 traZODone HCL [Desyrel] 100 mg PO 11/21/15 Flunisolide [Aerospan] 2 puff INHALATION RT-BID 06/28/16 Omalizumab [Xolair] 300 mg SQ Q30D 06/28/16 Levothyroxine Sodium [Synthroid] 137 mcg PO DAILY 07/18/16 Famotidine [Pepcid] 20 mg PO BID 10/02/16 Metoprolol Tartrate [Lopressor] 12.5 mg PO BID 06/12/17 PARoxetine [Paxil] 20 mg PO DAILY 08/27/17 Ondansetron Odt [Zofran Odt] 4 mg PO Q8HR PRN #10 tab 09/17/17 Methylphenidate HCl [Concerta] 1 tab PO DAILY 10/22/17 Nelfinavir Mesylate [Viracept] 1 tab PO TID PRN 10/22/17 Pantoprazole Sodium [Protonix] 1 tab PO DAILY 10/22/17 HYDROcodone/APAP 7.5-325MG [[place] 7.5-325] 1 tab PO Q6HR PRN #120 tab 01/13/18 HYDROcodone/APAP 7.5-325MG [[place] 7.5-325] 1 tab PO Q6HR PRN 30 Days #120 tab Pregabalin [Lyrica] 75 mg PO TID #90 cap 01/13/18 tiZANidine HCL [Zanaflex] 4 mg PO Q8HR PRN #30 tab 01/13/18 Controlled Substance Measures - Controlled Substance Measures Is patient prescribed a controlled substance at discharge?: Yes When asked, does pt state using other controlled substances?: No If prescribed controlled substance>3 days was MAPS reviewed?: Yes If Rx opioid, was Start Talking consent form obtained?: Yes If opioid is for acute pain is fill amount 7 days or less?: No Was information provided regarding opioid addiction?: Yes
== END | disposition home or self-care (01) ==
LOC: PNWHC3 12:35
PROVIDERS: ATTEND Specialist
DX: G89.29 Other chronic pain (principal); M51.36 Other intervertebral disc degeneration, lumbar region; M47.816 Spondylosis without myelopathy or radiculopathy, lumbar region; M46.96 Unspecified inflammatory spondylopathy, lumbar region; M51.24 Other intervertebral disc displacement, thoracic region; M79.1 Myalgia; Z79.891 Long term (current) use of opiate analgesic; Z79.899 Other long term (current) drug therapy
CPT/HCPCS: 99211

== ENCOUNTER 2018-01-20 08:30 | Day surgery (SDC) | payer OTHER ==
[2018-01-16 09:38] VITALS: BMI 30.2
[2018-01-20 07:41] VITALS: RESP 16; TEMP 98.5
--- NOTE | 2018-01-20 08:17 | P.PCN ---
Date of Procedure: 01/20/18 Procedure(s) Performed: Procedure= trigger point injection cervical paravertebral muscles, 3 on the right side trapezius and rhomboid muscles, and 2 on the left side trapezius and rhomboid muscles. Preoperative diagnoses= myofascial pain syndrome and cervical area. Postoperative diagnoses= same as preop diagnosis. Condition= stable. Complications=none. Anesthesia= moderate sedation with Versed 2 mg and fentanyl 100 g. Indication for the procedure= continuous neck pain, secondary to myofascial pain syndrome, not responsive to conservative treatment. Description of the procedure= procedure risk and benefits and alternatives discussed with the patient she agreed with proceeding patient taken to the procedure room, and placed in sitting position, the neck area prepped with chlorhexidine 3 , each of the trigger points, that is marked in the pre op holding area, each one of them injected with ropivacaine 0.5% , using 25-gauge needle, a total of 10 ML of ropivacaine mixed with 40 mg of Depo-Medrol, 2 ML of the mixture, injected at each trigger point ,after negative aspiration ,and there was no paresthesia during the injection, she tolerated the procedure well without any complications.
[~2018-01-20 08:30] MED LIST changes: +IV FLUID CONTINUATION 1,000 ML IV ONE; +LIDOCAINE 1% 20 ML VIAL (10MG/ML) FOR IV START INTRADERMA ONE
[2018-01-20 08:52] VITALS: BP 96/63; PULSE 67
== END 2018-01-20 11:00 | disposition home or self-care (01) ==
LOC: ORPAIN 08:30
PROVIDERS: ATTEND Specialist
DX: M79.1 Myalgia (principal); M54.2 Cervicalgia; J45.909 Unspecified asthma, uncomplicated; E03.9 Hypothyroidism, unspecified; Z88.8 Allergy status to other drugs, medicaments and biological substances
CPT/HCPCS: 20553; 81025

== ENCOUNTER → 2018-03-10 | Outpatient (CLI) | payer OTHER ==
[2018-03-10 12:17] VITALS: BP 128/83; PULSE 71; RESP 16
--- NOTE | 2018-03-10 12:59 | P.PN ---
Subjective Progress Note Date: 03/10/18 This is a 37-year-old lady with a history of widespread body pain and recent increasing frequency of falls. The patient has seen a neurologist who ordered an MRI of the brain which showed some iron deposits with no clear clinical significance. The patient denies any bowel or bladder dysfunction. She does feel pain all over her body. She said that she's been taking opioids since she was 24 years old. Today, pt denies new-onset weakness, bowel/bladder incontinence, or any other signs or symptoms of cauda equina syndrome. There are no signs of acute intoxication, and no indications of medication diversion or overuse. In addition to above, 13-point review of systems is also negative for chest pain , shortness of breath, changes in vision, changes in hearing, new onset weakness , abdominal pain, diarrhea, fever, skin changes, homicidal or suicidal ideation , or bowel or bladder incontinence. Vital Signs: Reviewed in EMR Gen: AAOx3, NAD HEENT: PERRLA,hearing grossly normal Pulm: resp unlabored,CTA Heart:S1,S2, No Mur She has tenderness in the lumbar paravertebral area bilaterally. Neuro exam of the lower extremities showed hyperreactive reflexes bilaterally and symmetrically Decreased muscle strength in the lower extremities to 3 out of 5 for the patient walks normally with no assistance and this finding might be due to her unwillingness to participate of effort into the exam. Neuro: CN II-XII grossly intact, Imaging: Reviewed in EMR/chart Assessment: Widespread body pain and possible fibromyalgia Cervical and lumbar spondylosis without myelopathy Frequent falls Opioid dependence Plan: 1. Explanation: Opioid and psychological risk scores were reviewed. Diagnoses , prognoses, and multiple treatment options including but not limited to physical therapy, interventional therapies, adjuvant medical therapies, narcotic medication therapies, and surgery were discussed with the patient and all questions were answered to the patient's satisfaction. 2. Opioid agreement: Signed with the patient and the patient is warned not to use opioids while driving or before driving and not to combine opioids with benzodiazepines or alcohol. 3. Counseling: The patient was counseled extensively on SMOKING CESSATION, BODY MASS INDEX, EXERCISE. Specifically, the patient was instructed regarding the importance of smoking cessation, obesity, and exercise in the context of both chronic pain and overall health. 4. Procedures: None at this point 5. Consultations: Follow-up with her neurologist to find out about the reason of her frequent falls, and the iron deposits in her brain. 6. Investigations: None 7. Medications: Continue [place] 7.5 mg 4 times a day however I told the patient that we will go down to 3 times a day on her next visit in 4 weeks. 8. Disposition: Return to clinic in 4 weeks 9. Maps were reviewed and were appropriate. Objective - Vital Signs Vital signs: Vital Signs Temp Pulse 71 03/10/18 12:12 Resp 16 03/10/18 12:12 BP 128/83 03/10/18 12:12 Pulse Ox 98 03/10/18 12:12 Intake & Output 03/09/18 03/10/18 03/10/18 18:59 06:59 18:59 Weight 74.843 kg
== END | disposition home or self-care (01) ==
LOC: PNWHC3 11:41
PROVIDERS: ATTEND Anesthesiology
DX: G89.29 Other chronic pain (principal); M47.812 Spondylosis without myelopathy or radiculopathy, cervical region; M47.816 Spondylosis without myelopathy or radiculopathy, lumbar region; R29.6 Repeated falls; F11.20 Opioid dependence, uncomplicated
CPT/HCPCS: 99211

== ENCOUNTER → 2018-03-19 | Outpatient (CLI) | payer OTHER ==
--- NOTE | 2018-03-19 10:41 | MM ---
Reason for exam: screening (asymptomatic). Baseline mammogram. History: Patient has history of other cancer at age 36. Physical Findings: Nurse did not find any significant physical abnormalities on exam. MG 3D Screening Mammo W/Cad Bilateral CC and MLO view(s) were taken. There are scattered fibroglandular densities. There is no dominant lesion. There is no discrete abnormality. These results were verbally communicated with the patient and result sheet given to the patient on 03/19/18. ASSESSMENT: Negative, BI-RAD 1 RECOMMENDATION: Routine screening mammogram of both breasts in 1 year.
== END ==
LOC: RADMAMWWP 07:59
PROVIDERS: ATTEND Obstetrics & Gynecology
DX: Z12.31 Encounter for screening mammogram for malignant neoplasm of breast (principal)
CPT/HCPCS: 77063; 77067

== ENCOUNTER 2018-04-01 11:18 | Emergency (ER) | payer OTHER ==
[2018-04-01 11:26] VITALS: RESP 18; TEMP 98.7
[2018-04-01] MEDS ORDERED: PROMETHAZINE INJ 25 MG/ML 1 ML VIAL IM STA (11:40)
--- NOTE | 2018-04-01 11:47 | ED ---
Fall HPI - General Chief Complaint: Fall Stated Complaint: Fall Time Seen by Provider: 04/01/18 11:27 Source: patient Mode of arrival: wheelchair Limitations: no limitations - History of Present Illness Initial Comments: 37-year-old female presents emergency Department chief complaint of head injury. Patient states that she lost her balance and tripped and struck her head on the right side yesterday into a cabinet at home. Patient states she did not lose conscious she has no neck pain no other injuries. She states that she's had continuation a headache since yesterday and just does not feel well. She states she's nauseated today one episode of vomiting last night. She has some photosensitivity but denies any blurred vision, focal weakness, chest pain , shortness breath, paresthesias, fever, chills. Patient states she only took Tylenol at home no other medications taken. - Related Data Home Medications Medication Instructions Recorded Confirmed Montelukast [Singulair] 10 mg PO HS 09/30/13 04/01/18 traZODone HCL [Desyrel] 100 mg PO HS 11/21/15 04/01/18 Levothyroxine Sodium [Synthroid] 137 mcg PO DAILY 07/18/16 04/01/18 PARoxetine [Paxil] 20 mg PO DAILY 08/27/17 04/01/18 Methylphenidate HCl [Concerta] 36 mg PO DAILY 10/22/17 04/01/18 Acetaminophen Tab [Tylenol Tab] 500 mg PO Q6H PRN 04/01/18 04/01/18 Albuterol Inhaler [Ventolin Hfa 2 puff INHALATION RT-Q6H PRN 04/01/18 04/01/18 Inhaler] Previous Rx's Medication Instructions Recorded HYDROcodone/APAP 7.5-325MG [Lenore 1 tab PO Q6HR PRN #120 tab 01/13/18 7.5-325] Allergies Allergy/AdvReac Type Severity Reaction Status Date / Time albuterol AdvReac Rapid Verified 04/01/18 11:48 Heart Rate Review of Systems ROS Statement: Those systems with pertinent positive or pertinent negative responses have been documented in the HPI. ROS Other: All systems not noted in ROS Statement are negative. 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 PAST ULCER, HERNIATED DIS,FX RT FOOT IN DEC AND RE -FX 05/15/17 . recently dx. with cervical ca. Migraines. History of Any Multi-Drug Resistant Organisms: None Reported, MRSA Date of last positivie culture/infection: 08/25/14 MDRO Source:: rt Groin Past Surgical History: Bariatric Surgery, Cholecystectomy, Orthopedic Surgery, Tonsillectomy Additional Past Surgical History / Comment(s): tilt table test, lap band 2007; NASAL FX REPAIR , ORIF LT ELBOW X2, PAIN PROCEDURES for migraines. Surgery on her cervix for cancer. States is going to have a hysterectomy soon. Past Anesthesia/Blood Transfusion Reactions: Postoperative Nausea & Vomiting ( PONV) Past Psychological History: Anxiety, Depression Smoking Status: Never smoker Past Alcohol Use History: None Reported Past Drug Use History: None Reported - Past Family History Mother Family Medical History: Pneumonia Additional Family Medical History / Comment(s): Mother of pneumonia. Patient's son of brain cancer, last mother and father both liver cancer Son(s) Family Medical History: Cancer Additional Family Medical History / Comment(s): Son of brain cancer. Father Family Medical History: Cancer, Liver Disease Additional Family Medical History / Comment(s): Father has liver cancer with surgery. He has hepatitis. General Exam Limitations: no limitations General appearance: alert, in no apparent distress Head exam: Present: atraumatic, normocephalic, normal inspection Eye exam: Present: normal appearance, PERRL, EOMI. Absent: scleral icterus, conjunctival injection, periorbital swelling ENT exam: Present: normal exam, mucous membranes moist Neck exam: Present: normal inspection, full ROM. Absent: tenderness, meningismus, lymphadenopathy Respiratory exam: Present: normal lung sounds bilaterally. Absent: respiratory distress, wheezes, rales, rhonchi, stridor Cardiovascular Exam: Present: regular rate, normal rhythm, normal heart sounds. Absent: systolic murmur, diastolic murmur, rubs, gallop, clicks Extremities exam: Present: normal inspection, full ROM, normal capillary refill. Absent: tenderness, pedal edema, joint swelling, calf tenderness Neurological exam: Present: alert, oriented X3, CN II-XII intact, reflexes normal, other (Finger to nose intact bilaterally without overshooting, GCS of 15 , NIH 0, normal Romberg). Absent: motor sensory deficit Skin exam: Present: warm, dry, intact, normal color. Absent: rash Course Vital Signs 04/01/18 11:22 Temperature 98.7 F Pulse Rate 108 H Respiratory 18 Rate Blood Pressure 125/87 O2 Sat by Pulse 99 Oximetry Medical Decision Making - Medical Decision Making 37-year-old female presents emergency Department for head injury, headache and nausea. Patient had CT in emergency department which is unremarkable. Patient has symptoms consistent with concussion. She has no neurological findings. Patient will be discharged advised to take Tylenol and Motrin return for any worsening symptoms. Disposition Clinical Impression: Fall, Concussion Disposition: HOME SELF-CARE Condition: Stable Instructions: Concussion (ED) Additional Instructions: Please return to the Emergency Department if symptoms worsen or any other concerns. Is patient prescribed a controlled substance at d/c from ED?: No Referrals: Slade Gonzalez MD [Primary Care Provider] - 1-2 days
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
[2018-04-01] MEDS ORDERED: ONDANSETRON 4 MG ODT STARTER PACK 2 TAB BTL PO STA (13:25)
[2018-04-01 13:30] VITALS: BP 117/80; PULSE 94
== END 2018-04-01 13:29 | disposition home or self-care (01) ==
LOC: EC 11:18
DX: S06.0X0A Concussion without loss of consciousness, initial encounter (principal); R40.2412 Glasgow coma scale score 13-15, at arrival to emergency department; J45.909 Unspecified asthma, uncomplicated; E07.9 Disorder of thyroid, unspecified; F32.9 Major depressive disorder, single episode, unspecified; F41.9 Anxiety disorder, unspecified; Z88.8 Allergy status to other drugs, medicaments and biological substances; Z79.899 Other long term (current) drug therapy; Z86.14 Personal history of Methicillin resistant Staphylococcus aureus infection; Z85.41 Personal history of malignant neoplasm of cervix uteri; Z98.890 Other specified postprocedural states; W01.190A Fall on same level from slipping, tripping and stumbling with subsequent striking against furniture, initial encounter; Y92.009 Unspecified place in unspecified non-institutional (private) residence as the place of occurrence of the external cause
CPT/HCPCS: 70450; 99283; 96372; J2550; S0119

== ENCOUNTER → 2018-04-25 | Outpatient (CLI) | payer OTHER ==
[2018-04-25 10:47] LABS: Basophils % (A) 0 %; Eosinophils # (A) 0.1 k/uL (0-0.7); Eosinophils % (A) 1 %; HGB 13.5 gm/dL (11.4-16.0); Lymphocytes # (A) 1.7 k/uL (1.0-4.8); Lymphocytes % (A) 28 %; MCHC 33.7 g/dL (31.0-37.0); MCV 94.7 fL (80.0-100.0); Mean Platelet Volume 6.4; Monocytes # (A) 0.3 k/uL (0-1.0); Monocytes % (A) 4 %; Neutrophils # (A) 4.1 k/uL (1.3-7.7); Neutrophils % (A) 66 %; Platelet Count 223 k/uL (150-450); RBC 4.23 m/uL (3.80-5.40); RDW 12.4 % (11.5-15.5); WBC 6.2 k/uL (3.8-10.6)
[2018-04-25 16:45] LABS: Albumin 4.9 g/dL (3.80-4.90); Albumin/Globulin Ratio 2.45 (1.20-2.10); Anion Gap 9.3 mmol/L (4.00-12.00); Calcium 9.5 mg/dL (8.7-10.3); Carbon Dioxide 25.7 mmol/L (21.6-31.8); Total Bilirubin 0.5 mg/dL (0.2-1.2); Total Protein 6.9 g/dL (6.2-8.2)
[2018-04-25 16:52] LABS: T4, Free (Free Thyroxine) 1.8 ng/dL (0.80-1.80)
== END | disposition home or self-care (01) ==
LOC: LABWHC1 09:49
PROVIDERS: ATTEND Family Medicine
DX: E03.9 Hypothyroidism, unspecified (principal)
CPT/HCPCS: 36415; 80053; 84439; 84443; 84481; 85025

== ENCOUNTER → 2018-05-05 | Outpatient (CLI) | payer OTHER ==
[2018-05-05 11:33] LABS: INR 0.9 (<1.2); Partial Thromboplastin Time 23.3 sec (22.0-30.0)
== END | disposition home or self-care (01) ==
LOC: LABWHC1 09:49
PROVIDERS: ATTEND Family Medicine
DX: R23.3 Spontaneous ecchymoses (principal)
CPT/HCPCS: 36415; 85610; 85730

== ENCOUNTER → 2018-06-02 | Outpatient (CLI) | payer OTHER ==
[2018-06-02 13:45] VITALS: BP 127/83; PULSE 133; RESP 18
--- NOTE | 2018-06-03 09:51 | P.PN ---
Subjective Progress Note Date: 06/02/18 This is follow-up visit for this patient with a history of severe and chronic low back pain secondary to lumbar degenerative disc diseases , lumbar spondylosis with facet arthropathy, We have done interventional pain procedures radiofrequency ablation of the medial branch lumbar area, Patients currently on [place] 7.5/325 every 6 hours, Lyrica 75 mg every 8 hours, and Zanaflex 4 mg every 8 hours Patient denies any side effects of the medication, denies excessive drowsiness or sleepiness, denies suicidal ideation, and reports that the current pain medication is helping to control the pain and improve activity of daily living Patient denies any motor or sensory deficit , patient denies any fever or night sweats, denies any change in the bowel movements or urination Physical Examinations : 1-Constitutional : Cooperative , not in acute distress . 2-HEENT : nech ; supple , no Lymphadenopathy , no Thyromegaly , normal thyroid size . eyes : no ptosis , no icterus, no photophobia . ENT : normal of hearing , normal oropharynx , no Thrush . 3- Respiratory : Chest clear to auscultations Bilaterally , no wheezing , no Rhonchi . 4- Cardiovascular : regular rate and rhythem , S1 , S2 , no S3 , no S4. 5- Gastrointestinal : abdomen soft no tenderness , bowel sounds positive all four quadrents , no organomegally . 6- Genitourinary : Defferred . 7- neurologic: Cranial nerve II to XII intact , no focal neurological deffecit . 8- Psychatric: alert , oriented X 3 , appropriate affect , intact judgment and insight . 9- Lymphatic : no Lymphadenopathy . 10- Musculoskeltal : exams of the cervical spine = motor strength normal bilateral upper extremities facet loading test cervical area positive. Multiple trigger points in the cervical paravertebral muscles rhomboid and trapezius muscles examined more than the left side exams of the Lumber spine =motor strength lower extremities ,thigh and legs .5/5 deep tendon reflexes : normal Knee Jerk , normal ankle Jerk . lumber facet Loading Test positive strait leg raising test positive at 30 degree , RT ,LT , Fabere test positive RT and positive LT . Range of motion: Range of motion in flexion of the lumbar spine 30 degrees Range of motion range of motion of extension of the lumbar spine 10 Sever tenderness over the Sacroiliac joint on the Right , and Left side Assessment and plan = Chronic low back pain secondary to lumbar degenerative disc disease , lumbar spondylosis with facet arthropathy without myelopathy Upper back pain secondary to myofascial pain syndrome and cervical area. Midback pain secondary to thoracic herniated disc disease chronic and current use of high-risk medication (Opioids). The patient was counseled about risk of opioid use, psychological risk associated with opioids and was orally counseled to not overuse , divert,or sell dictations to take medications as prescribed only , and to restore medication in safe location , the patient counseled against driving while using narcotic medications , and also not to use alcohol or any illicit recreational drugs, patient's verbalized understanding that the lack of compliance will result in failure to renew narcotic prescription and possible discharge from the clinic - diagnoses, prognosis, and treatment options including but not limited to physical therapy, surgical interventions, interventional therapies , and medication management including narcotics and adjuvant medication were discussed with the patient and all the questions answered Prescription refill for Lyrica 75 mg 3 times a day dispense 90 with 1 refill, [place] 7.5/325 dispense 120 with one refill, Prescription for Zanaflex 4 mg daily at bedtime dispense 30 with one refill, MAPS reviewed and is appropriate , PQRS Measure Charge Sheet Measure #130: Documentation of Current Meds in Medical Chart: Patient's medications documented in chart Measure #226: Tobacco Use: Screen & Cessation Intervention: Pt not a tobacco user Measure #111: Pneumonia Vaccination: Pneumococcal vaccine not administered Measure #47: Advance Care Plan: Advance care planning discussed & documented, pt chose/unable to give Measure #412: Opioid Treatment Agreement: Documented signed opioid trtmnt agreemnt min once during opioid trtmnt Measure #408: Opioid Therapy Follow-up Evaluation: Patient had f/u eval minimum every 3 months during opioid therapy Measure #317: Preventitive Care & Scrn High Bld Press & F/U: Blood pressure within normal limits 127/83 and she will follow up with her primary care Measure #128: Body Mass Index (BMI) Screening & Follow-up: BMI documented ABOVE normal parameters - f/u documented Measure #131: Pain Assessment & Follow-up: Pain positive & plan documented, Follow-up scheduled Measure #431: Unhealthy Alcohol Use Preventative Care & Scrn: Patient not identified as an unhealthy alcohol user PQRS Narrative: Objective - Vital Signs Vital signs: Vital Signs Temp Pulse 133 H 06/02/18 13:40 Resp 18 06/02/18 13:40 BP 127/83 06/02/18 13:40 Pulse Ox 96 06/02/18 13:40 Intake & Output 06/02/18 06/03/18 06/03/18 18:59 06:59 18:59 Weight 79.379 kg
--- NOTE | 2018-06-05 10:51 | P.OPNOTE ---
Outpatient Note - . Assessment/Comments:: Patient prescription for sent electronically yesterday to her pharmacy. Patient reports that pharmacies out of the medications and request a new prescription. I will give her handwritten scripts today dated 06/05/2018 for [place] 7.5 mg every 6 hours when necessary pain #120 tablets. I've given her one prescription dated for today and one prescription dated for 07/06/2018. Please check maps on the next visit to ensure that only one set of prescription was filled. Opioid start talking form is in the chart. Urine drug screens have been appropriate. Maps was checked today
== END ==
LOC: PNWHC3 13:09
PROVIDERS: ATTEND Specialist
DX: G89.29 Other chronic pain (principal); M51.36 Other intervertebral disc degeneration, lumbar region; M47.816 Spondylosis without myelopathy or radiculopathy, lumbar region; M46.96 Unspecified inflammatory spondylopathy, lumbar region; M79.18 Myalgia, other site; M51.24 Other intervertebral disc displacement, thoracic region; Z79.891 Long term (current) use of opiate analgesic; Z79.899 Other long term (current) drug therapy
CPT/HCPCS: 99211

== ENCOUNTER → 2018-06-10 | Outpatient (CLI) | payer OTHER ==
[2018-06-10 11:29] LABS: Basophils % (A) 1 %; Eosinophils % (A) 0 %; HCT 42.6 % (34.0-46.0); HGB 13.9 gm/dL (11.4-16.0); Lymphocytes # (A) 2.1 k/uL (1.0-4.8); Lymphocytes % (A) 23 %; MCH 31.4 pg (25.0-35.0); MCHC 32.7 g/dL (31.0-37.0); Mean Platelet Volume 6.1; Monocytes # (A) 0.4 k/uL (0-1.0); Monocytes % (A) 4 %; Neutrophils # (A) 6.5 k/uL (1.3-7.7); Neutrophils % (A) 71 %; Platelet Count 180 k/uL (150-450); RBC 4.43 m/uL (3.80-5.40); RDW 12.5 % (11.5-15.5); WBC 9.2 k/uL (3.8-10.6)
[2018-06-10 16:20] LABS: Albumin 4.9 g/dL (3.80-4.90); Albumin/Globulin Ratio 2.88 (1.20-2.10); Anion Gap 10.6 mmol/L (4.00-12.00); Calcium 9.5 mg/dL (8.7-10.3); Carbon Dioxide 25.4 mmol/L (21.6-31.8); Globulin 1.7 g/dL (1.6-3.3); Potassium 4.2 mmol/L (3.5-5.5); Total Bilirubin 0.6 mg/dL (0.3-1.2); Total Protein 6.6 g/dL (6.2-8.2)
== END | disposition home or self-care (01) ==
LOC: LABWHC1 10:35
PROVIDERS: ATTEND Family Medicine
DX: J45.901 Unspecified asthma with (acute) exacerbation (principal)
CPT/HCPCS: 36415; 80053; 85025

== ENCOUNTER 2018-07-10 15:25 | Inpatient (IN) | payer OTHER ==
--- NOTE | 2018-07-10 16:06 | ED ---
General Adult HPI - General Chief complaint: Dizziness Stated complaint: Fall Source: patient, EMS Mode of arrival: EMS Limitations: no limitations - History of Present Illness Initial comments: Dictation was produced using [employer] dictation software. please excuse any grammatical, word or spelling errors. Chief Complaint: 37-year-old female past medical history of chronic back pain, hypothyroidism, depression, chronic kidney disease presents with episode of syncope and low blood pressure. History of Present Illness: Patient is 37-year-old female she has a past medical history of end-stage renal disease. She sees Dr. Hall. She gets frequent iron transfusions performed outpatient. Patient had transfusion last week and had normal blood pressures at that time. Yesterday she checked her blood pressure at home with a systolic measurement in the 70s. She thought nothing of it. She went for a iron transfusion today. Patient felt fine after the transfusion. She was sent home. She was at home when she was lying in a supine position. She was lying down secondary to pain. She stood up and syncopized. Patient states she had unwitnessed fall. She was home alone. She does not, along she was on the ground for. She noticed some bleeding on her hand when she went to reach for her head. Patient denies any neuro deficits. She does complain of some head pain. She called EMS. EMS reported that patient had low blood pressure with a systolic in the 70s. She was brought to the emergency department. The ROS documented in this emergency department record has been reviewed and confirmed by me. Those systems with pertinent positive or negative responses have been documented in the HPI. All other systems are other negative and/or noncontributory. PHYSICAL EXAM: General Impression: Alert and oriented x3, not in acute distress HEENT: Superficial laceration to the right parietal area,, extra-ocular movements intact, pupils equal and reactive to light bilaterally, mucous membranes moist. Cardiovascular: Heart regular rate and rhythm, S1&S2 audible, no murmurs, rubs or gallops Chest: Lungs clear to auscultation bilaterally, no rhonchi, no wheeze, no rales Abdomen: Bowel sounds present, abdomen soft, non-tender, non-distended, no organomegaly Musculoskeletal: Pulses present and equal in all extremities, no peripheral edema Motor: Power 5/5 bilaterally, no focal deficits noted Neurological: CN II-XII grossly intact, no focal motor or sensory deficits noted Skin: Intact with no visualized rashes Psych: Normal affect and mood ED course: 37-year-old presents with episode of syncope and hypotension. Vital signs upon arrival shows blood pressure of 81/52, no tachycardia, worse vital signs within normal limits. Patient denies any abdominal pain. Denies any bloody or dark stool. Patient appears comfortable. She states that her symptoms of dizziness are worse with standing up and moving.Laboratory evaluation obtained. Hemoglobin stable at 12.5. No leukocytosis. Rest of CBC unremarkable. Cardiac panel unremarkable. Metabolic panel was obtained on be grossly within acceptable limits. Patient does however have a glucose of 71. Patient denies any history of diabetes or use of diabetic medications. Urinalysis shows RBCs. Rapid urine drug screen shows positive for opiates. Patient given intravenous fluids. Repeat vital signs shows improvement of blood pressure with 114/71. Patient given by mouth glucose with improvement of blood sugar. Given unstable vital signs upon initial arrival and hypoglycemia we'll plan to have the patient admitted for intravenous fluids and further medical monitoring. EKG interpretation: Ventricular rate 60, normal sinus rhythm, RI interval 152, QRS 70, QTC 46. No RI prolongation, no QTC prolongation, no ST or T-wave changes noted. Overall, this EKG is unremarkable - Related Data Home Medications Medication Instructions Recorded Confirmed Montelukast [Singulair] 10 mg PO HS 09/30/13 07/10/18 traZODone HCL [Desyrel] 100 mg PO HS 11/21/15 07/10/18 PARoxetine [Paxil] 20 mg PO HS 08/27/17 07/10/18 Methylphenidate HCl [Concerta] 36 mg PO DAILY 10/22/17 07/10/18 Albuterol Inhaler [Ventolin Hfa 2 puff INHALATION RT-QID PRN 04/01/18 07/10/18 Inhaler] Cholecalciferol [Vitamin D3] 1,000 unit PO DAILY 07/10/18 07/10/18 Docusate [Colace] 100 mg PO HS 07/10/18 07/10/18 Ferrous Sulfate [Feosol] 325 mg PO DAILY 07/10/18 07/10/18 Levalbuterol HCl [Xopenex 0.63 mg INHALATION RT-QID PRN 07/10/18 07/10/18 Nebulized] Levothyroxine Sodium [Synthroid] 125 mcg PO DAILY 07/10/18 07/10/18 Medroxyprogesterone Acetate 150 mg IM Q84D 07/10/18 07/10/18 [Depo-Provera] Multivitamins, Thera [Multivitamin 1 tab PO DAILY 07/10/18 07/10/18 (formulary)] Omalizumab [Xolair] 300 mg SQ Q30D 07/10/18 07/10/18 Ondansetron [Zofran] 4 mg PO Q8HR PRN 07/10/18 07/10/18 tiZANidine [Zanaflex] 4 mg PO Q8HR PRN 07/10/18 07/10/18 Previous Rx's Medication Instructions Recorded HYDROcodone/APAP 7.5-325MG [[place] 1 tab PO Q6HR PRN #120 tab 06/02/18 7.5-325] Pregabalin [Lyrica] 75 mg PO TID #90 cap 06/02/18 Allergies Allergy/AdvReac Type Severity Reaction Status Date / Time No Known Allergies Allergy Verified 07/10/18 16:16 Review of Systems ROS Statement: Those systems with pertinent positive or pertinent negative responses have been documented in the HPI. ROS Other: All systems not noted in ROS Statement are negative. 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 PAST ULCER, HERNIATED DIS,FX RT FOOT IN DEC AND RE -FX 05/15/17 . recently dx. with cervical ca. Migraines. History of Any Multi-Drug Resistant Organisms: None Reported, MRSA Date of last positivie culture/infection: 08/25/14 MDRO Source:: rt Groin Past Surgical History: Bariatric Surgery, Cholecystectomy, Orthopedic Surgery, Tonsillectomy Additional Past Surgical History / Comment(s): tilt table test, lap band 2007; NASAL FX REPAIR , ORIF LT ELBOW X2, PAIN PROCEDURES for migraines. Surgery on her cervix for cancer. States is going to have a hysterectomy soon. Past Anesthesia/Blood Transfusion Reactions: Postoperative Nausea & Vomiting ( PONV) Past Psychological History: Anxiety, Depression Smoking Status: Never smoker Past Alcohol Use History: None Reported Past Drug Use History: None Reported - Past Family History Mother Family Medical History: Pneumonia Additional Family Medical History / Comment(s): Mother of pneumonia. Patient's son of brain cancer, last mother and father both liver cancer Son(s) Family Medical History: Cancer Additional Family Medical History / Comment(s): Son of brain cancer. Father Family Medical History: Cancer, Liver Disease Additional Family Medical History / Comment(s): Father has liver cancer with surgery. He has hepatitis. General Exam Limitations: no limitations Course Vital Signs 07/10/18 07/10/18 07/10/18 15:30 15:47 16:34 Temperature 98 F Pulse Rate 83 90 74 Respiratory 18 18 18 Rate Blood Pressure 81/52 82/53 97/69 O2 Sat by Pulse 98 99 99 Oximetry 07/10/18 07/10/18 17:08 18:07 Temperature Pulse Rate 69 67 Respiratory 18 18 Rate Blood Pressure 102/71 114/71 O2 Sat by Pulse 100 99 Oximetry Medical Decision Making - Lab Data Result diagrams: 07/10/18 15:41 07/10/18 15:41 Lab Results 07/10/18 07/10/18 07/10/18 Range/Units 15:41 15:41 15:41 WBC 7.8 (3.8-10.6) k/uL RBC 3.68 L (3.80-5.40) m/uL Hgb 12.5 (11.4-16.0) gm/dL Hct 35.1 (34.0-46.0) % MCV 95.3 (80.0-100.0) fL MCH 33.8 (25.0-35.0) pg MCHC 35.5 (31.0-37.0) g/dL RDW 12.8 (11.5-15.5) % Plt Count 181 (150-450) k/uL Neutrophils % 71 % Lymphocytes % 19 % Monocytes % 6 % Eosinophils % 2 % Basophils % 0 % Neutrophils # 5.6 (1.3-7.7) k/uL Lymphocytes # 1.5 (1.0-4.8) k/uL Monocytes # 0.5 (0-1.0) k/uL Eosinophils # 0.1 (0-0.7) k/uL Basophils # 0.0 (0-0.2) k/uL PT (9.0-12.0) sec INR (<1.2) Sodium 140 (137-145) mmol/L Potassium 4.1 (3.5-5.1) mmol/L Chloride 110 H (98-107) mmol/L Carbon Dioxide 22 (22-30) mmol/L Anion Gap 8 mmol/L BUN 16 (7-17) mg/dL Creatinine 1.01 (0.52-1.04) mg/dL Est GFR (CKD-EPI)AfAm 82 (>60 ml/min/1.73 sqM) Est GFR (CKD-EPI)NonAf 71 (>60 ml/min/1.73 sqM) Glucose 71 L (74-99) mg/dL POC Glucose (mg/dL) (75-99) mg/dL POC Glu Chart Reader ID Calcium 8.8 (8.4-10.2) mg/dL Magnesium 1.8 (1.6-2.3) mg/dL Total Bilirubin 0.5 (0.2-1.3) mg/dL AST 22 (14-36) U/L ALT 22 (9-52) U/L Alkaline Phosphatase 34 L (38-126) U/L Creatine Kinase 50 (30-135) U/L Troponin I (0.000-0.034) ng/mL Total Protein 5.9 L (6.3-8.2) g/dL Albumin 3.7 (3.5-5.0) g/dL Urine Color Urine Appearance (Clear) Urine pH (5.0-8.0) Ur Specific [place] (1.001-1.035) Urine Protein (Negative) Urine Glucose (UA) (Negative) Urine Ketones (Negative) Urine Blood (Negative) Urine Nitrite (Negative) Urine Bilirubin (Negative) Urine Urobilinogen (<2.0) mg/dL Ur Leukocyte Esterase (Negative) Urine RBC (0-5) /hpf Ur Squamous Epith Cells (0-4) /hpf Urine Bacteria (None) /hpf Hyaline Casts (0-2) /lpf Urine Mucus (None) /hpf Urine Opiates Screen (NotDetected) Ur Oxycodone Screen (NotDetected) Urine Methadone Screen (NotDetected) Ur Propoxyphene Screen (NotDetected) Ur Barbiturates Screen (NotDetected) U Tricyclic Antidepress (NotDetected) Ur Phencyclidine Scrn (NotDetected) Ur Amphetamines Screen (NotDetected) U Methamphetamines Scrn (NotDetected) U Benzodiazepines Scrn (NotDetected) Urine Cocaine Screen (NotDetected) U Marijuana (THC) Screen (NotDetected) Blood Type O Positive Blood Type Confirm Blood Type Recheck CABO Indicated Antibody Screen NEGATIVE Spec Expiration Date 07/13/2018 - 234007/10/18 07/10/18 07/10/18 Range/Units 15:41 15:41 15:43 WBC (3.8-10.6) k/uL RBC (3.80-5.40) m/uL Hgb (11.4-16.0) gm/dL Hct (34.0-46.0) % MCV (80.0-100.0) fL MCH (25.0-35.0) pg MCHC (31.0-37.0) g/dL RDW (11.5-15.5) % Plt Count (150-450) k/uL Neutrophils % % Lymphocytes % % Monocytes % % Eosinophils % % Basophils % % Neutrophils # (1.3-7.7) k/uL Lymphocytes # (1.0-4.8) k/uL Monocytes # (0-1.0) k/uL Eosinophils # (0-0.7) k/uL Basophils # (0-0.2) k/uL PT 10.9 (9.0-12.0) sec INR 1.0 (<1.2) Sodium (137-145) mmol/L Potassium (3.5-5.1) mmol/L Chloride (98-107) mmol/L Carbon Dioxide (22-30) mmol/L Anion Gap mmol/L BUN (7-17) mg/dL Creatinine (0.52-1.04) mg/dL Est GFR (CKD-EPI)AfAm (>60 ml/min/1.73 sqM) Est GFR (CKD-EPI)NonAf (>60 ml/min/1.73 sqM) Glucose (74-99) mg/dL POC Glucose (mg/dL) (75-99) mg/dL POC Glu Chart Reader ID Calcium (8.4-10.2) mg/dL Magnesium (1.6-2.3) mg/dL Total Bilirubin (0.2-1.3) mg/dL AST (14-36) U/L ALT (9-52) U/L Alkaline Phosphatase (38-126) U/L Creatine Kinase (30-135) U/L Troponin I <0.012 (0.000-0.034) ng/mL Total Protein (6.3-8.2) g/dL Albumin (3.5-5.0) g/dL Urine Color Urine Appearance (Clear) Urine pH (5.0-8.0) Ur Specific [place] (1.001-1.035) Urine Protein (Negative) Urine Glucose (UA) (Negative) Urine Ketones (Negative) Urine Blood (Negative) Urine Nitrite (Negative) Urine Bilirubin (Negative) Urine Urobilinogen (<2.0) mg/dL Ur Leukocyte Esterase (Negative) Urine RBC (0-5) /hpf Ur Squamous Epith Cells (0-4) /hpf Urine Bacteria (None) /hpf Hyaline Casts (0-2) /lpf Urine Mucus (None) /hpf Urine Opiates Screen (NotDetected) Ur Oxycodone Screen (NotDetected) Urine Methadone Screen (NotDetected) Ur Propoxyphene Screen (NotDetected) Ur Barbiturates Screen (NotDetected) U Tricyclic Antidepress (NotDetected) Ur Phencyclidine Scrn (NotDetected) Ur Amphetamines Screen (NotDetected) U Methamphetamines Scrn (NotDetected) U Benzodiazepines Scrn (NotDetected) Urine Cocaine Screen (NotDetected) U Marijuana (THC) Screen (NotDetected) Blood Type Blood Type Confirm O Positive Blood Type Recheck Antibody Screen Spec Expiration Date 07/10/18 07/10/18 07/10/18 Range/Units 16:32 17:10 18:06 WBC (3.8-10.6) k/uL RBC (3.80-5.40) m/uL Hgb (11.4-16.0) gm/dL Hct (34.0-46.0) % MCV (80.0-100.0) fL MCH (25.0-35.0) pg MCHC (31.0-37.0) g/dL RDW (11.5-15.5) % Plt Count (150-450) k/uL Neutrophils % % Lymphocytes % % Monocytes % % Eosinophils % % Basophils % % Neutrophils # (1.3-7.7) k/uL Lymphocytes # (1.0-4.8) k/uL Monocytes # (0-1.0) k/uL Eosinophils # (0-0.7) k/uL Basophils # (0-0.2) k/uL PT (9.0-12.0) sec INR (<1.2) Sodium (137-145) mmol/L Potassium (3.5-5.1) mmol/L Chloride (98-107) mmol/L Carbon Dioxide (22-30) mmol/L Anion Gap mmol/L BUN (7-17) mg/dL Creatinine (0.52-1.04) mg/dL Est GFR (CKD-EPI)AfAm (>60 ml/min/1.73 sqM) Est GFR (CKD-EPI)NonAf (>60 ml/min/1.73 sqM) Glucose (74-99) mg/dL POC Glucose (mg/dL) 65 L 133 H (75-99) mg/dL POC Glu Chart Reader Amada Medel Jalissa Calcium (8.4-10.2) mg/dL Magnesium (1.6-2.3) mg/dL Total Bilirubin (0.2-1.3) mg/dL AST (14-36) U/L ALT (9-52) U/L Alkaline Phosphatase (38-126) U/L Creatine Kinase (30-135) U/L Troponin I (0.000-0.034) ng/mL Total Protein (6.3-8.2) g/dL Albumin (3.5-5.0) g/dL Urine Color Yellow Urine Appearance Clear (Clear) Urine pH 5.5 (5.0-8.0) Ur Specific [place] 1.020 (1.001-1.035) Urine Protein Negative (Negative) Urine Glucose (UA) Trace H (Negative) Urine Ketones Negative (Negative) Urine Blood Large H (Negative) Urine Nitrite Negative (Negative) Urine Bilirubin Negative (Negative) Urine Urobilinogen <2.0 (<2.0) mg/dL Ur Leukocyte Esterase Moderate H (Negative) Urine RBC 16 H (0-5) /hpf Ur Squamous Epith Cells 3 (0-4) /hpf Urine Bacteria Occasional H (None) /hpf Hyaline Casts 6 H (0-2) /lpf Urine Mucus Occasional H (None) /hpf Urine Opiates Screen Detected H (NotDetected) Ur Oxycodone Screen Not Detected (NotDetected) Urine Methadone Screen Not Detected (NotDetected) Ur Propoxyphene Screen Not Detected (NotDetected) Ur Barbiturates Screen Not Detected (NotDetected) U Tricyclic Antidepress Not Detected (NotDetected) Ur Phencyclidine Scrn Not Detected (NotDetected) Ur Amphetamines Screen Not Detected (NotDetected) U Methamphetamines Scrn Not Detected (NotDetected) U Benzodiazepines Scrn Not Detected (NotDetected) Urine Cocaine Screen Not Detected (NotDetected) U Marijuana (THC) Screen Not Detected (NotDetected) Blood Type Blood Type Confirm Blood Type Recheck Antibody Screen Spec Expiration Date Disposition Clinical Impression: Hypotension Disposition: ADMITTED IP TO THIS [facility] Condition: Fair Referrals: Slade Gonzalez MD [Primary Care Provider] - 1-2 days Decision Time: 18:52
[2018-07-10 16:28] LABS: Basophils % (A) 0 %; Eosinophils # (A) 0.1 k/uL (0-0.7); Eosinophils % (A) 2 %; HCT 35.1 % (34.0-46.0); HGB 12.5 gm/dL (11.4-16.0); Lymphocytes # (A) 1.5 k/uL (1.0-4.8); Lymphocytes % (A) 19 %; MCH 33.8 pg (25.0-35.0); MCHC 35.5 g/dL (31.0-37.0); MCV 95.3 fL (80.0-100.0); Mean Platelet Volume 6.8; Monocytes # (A) 0.5 k/uL (0-1.0); Monocytes % (A) 6 %; Neutrophils # (A) 5.6 k/uL (1.3-7.7); Neutrophils % (A) 71 %; Platelet Count 181 k/uL (150-450); RBC 3.68 m/uL (3.80-5.40); RDW 12.8 % (11.5-15.5); WBC 7.8 k/uL (3.8-10.6)
[2018-07-10 16:34] LABS: Glucose,Whole Blood 65 mg/dL (75-99)
[2018-07-10 16:35] LABS: Prothrombin Time 10.9 sec (9.0-12.0)
--- NOTE | 2018-07-10 16:37 | CT ---
EXAMINATION TYPE: CT brain nishi webb DATE OF EXAM: 07/10/2018 COMPARISON: CT brain 04/01/2018 HISTORY: Fall today with Rt frontal injury. Dizziness and weakness Neck pain CT DLP: 1324 mGycm Automated exposure control for dose reduction was used. TECHNIQUE: CT scan of the head and cervical spine are performed without contrast. FINDINGS: Ventricles and sulci appear normal. There is no mass effect nor midline shift. There is n o sign of intracranial hemorrhage. The calvarium is intact. The cervical vertebra have normal spacing and alignment. Posterior elements are intact. There is hype rtrophic anterior spurring at C3-4 and C5-6. The skull base is intact. Facet joints appear normal. IMPRESSION: Negative CT scan of the brain. No change. Negative CT scan of the cervical spine. No fracture. Spondylotic changes.
--- NOTE | 2018-07-10 16:39 | XR ---
EXAMINATION TYPE: XR chest 2V DATE OF EXAM: 07/10/2018 COMPARISON: 06/08/2017 HISTORY: Dizziness, syncopal episode, and fall TECHNIQUE: Frontal and lateral views of the chest are obtained. FINDINGS: There is no focal air space opacity, pleural effusion, or pneumothorax seen. The cardiac silhouette size is mildly enlarged. The osseous structures are intact. IMPRESSION: No acute cardiopulmonary process.
[2018-07-10 16:42] LABS: Albumin 3.7 g/dL (3.5-5.0); Calcium 8.8 mg/dL (8.4-10.2); Magnesium 1.8 mg/dL (1.6-2.3); Potassium 4.1 mmol/L (3.5-5.1); Total Bilirubin 0.5 mg/dL (0.2-1.3); Total Protein 5.9 g/dL (6.3-8.2)
[2018-07-10 17:29] LABS: Appearance,Urine Clear (Clear); Bacteria,Urine Occasional /hpf; Bilirubin,Urine Negative (Negative); Blood,Urine Large (Negative); Color,Urine Yellow; Glucose,Urine (UA) Trace (Negative); Hyaline Casts,Urine 6 /lpf (0-2); Ketones,Urine Negative (Negative); Leukocyte Esterase,Urine Moderate (Negative); Mucus,Urine Occasional /hpf; Nitrite,Urine Negative (Negative); PH, Urine 5.5 (5.0-8.0); Protein,Urine Negative (Negative); RBC,Urine 16 /hpf (0-5); Squamous Epithelial Cell,Urine 3 /hpf (0-4); Urobilinogen,Urine <2.0 mg/dL (<2.0)
[2018-07-10 17:35] LABS: Amphetamine Screen,Urine Not Detected (NotDetected); Barbiturate Screen,Urine Not Detected (NotDetected); Benzodiazepines Screen,Urine Not Detected (NotDetected); Cocaine Screen,Urine Not Detected (NotDetected); Methadone Screen, Urine Not Detected (NotDetected); Opiate Screen,Urine Detected (NotDetected); Oxycodone Screen, Urine Not Detected (NotDetected); Phencyclidine Screen,Urine Not Detected (NotDetected); Tricyclic Antidepressant,Urine Not Detected (NotDetected); Urn Cannabinoid Scrn Not Detected (NotDetected)
[2018-07-10 18:17] LABS: Glucose,Whole Blood 133 mg/dL (75-99)
[2018-07-10] MEDS ORDERED: ONDANSETRON 4 MG/2 ML VIAL IVP PRN (18:49)
[2018-07-10] MEDS ORDERED: NALOXONE 0.4 MG/ML 1 ML VIAL IV PRN (18:49)
[2018-07-10] MEDS: SODIUM CHLORIDE 0.9% 1,000 ML IV SCH (19:24)
[2018-07-10] MEDS ORDERED: LEVALBUTEROL HCL 0.63 MG INHALATION PRN (21:50)
[2018-07-10] MEDS ORDERED: ALBUTEROL NEBULIZED 2.5 MG/3 ML INHALATION PRN (21:50)
[2018-07-10] MEDS: traZODone HCL 50 MG TAB PO SCH (22:22)
[2018-07-10] MEDS: PREGABALIN 75 MG CAP PO SCH (22:22)
[2018-07-10] MEDS: PARoxetine 20 MG TAB PO SCH (22:22)
[2018-07-10] MEDS: HYDROcodone/APAP 7.5-325MG 1 EACH TAB PO PRN (22:22)
[2018-07-11] MEDS ORDERED: NON-FORMULARY DRUG (Medroxyprogesterone Acetate [Depo-Provera] 150 MG) IM SCH (01:45)
[2018-07-11] MEDS ORDERED: tiZANidine 4 MG TAB PO PRN (01:45)
[2018-07-11] MEDS ORDERED: TEMAZEPAM 15 MG CAP PO PRN (01:48)
[2018-07-11] MEDS ORDERED: ALPRAZolam 0.25 MG TAB PO PRN (01:48)
[2018-07-11] MEDS ORDERED: ACETAMINOPHEN TAB 500 MG TAB PO PRN (01:48)
[2018-07-11] MEDS: LEVOTHYROXINE 50 MCG TAB PO SCH (05:29)
[2018-07-11] MEDS: HYDROcodone/APAP 7.5-325MG 1 EACH TAB PO PRN ×2 (05:29→16:28)
[2018-07-11 06:44] LABS: Glucose,Whole Blood 106 mg/dL (75-99)
--- NOTE | 2018-07-11 06:57 | HP ---
HISTORY AND PHYSICAL DATE OF SERVICE: 07/10/2018 CHIEF COMPLAINT: Syncope. HISTORY OF PRESENT ILLNESS: This 37-year-old woman with a past medical history of asthma, GERD, seizure disorder, hypothyroidism, tachycardia, peptic ulcer disease, bulimia states constipation, multiple respiratory failure because of asthma, history of MRSA, history of bariatric surgery, history of cholecystectomy, history of degenerative joint disease, anxiety, depression being followed by Dr. Gonzalez in the outpatient setting has a complicated medical history. The patient also had a recently reduced GFR was seen by Nephrology. Patient is on weekly iron infusion. Today the patient had infusion. Patient went back home after the infusion in the hospital. The patient got up and felt dizzy. Patient passed out and patient came to [facility] and admitted for further evaluation and treatment. The patient was also evaluated by a neurologist in [facility] and was thought to have multiple hypodense areas on MRI. The possibility of multiple sclerosis also considered at this time. The patient also had some rash over the face as well. The patient also had chronic pains around the back pain and patient also seen by Dr. Veloz. The patient also seen the Pain Management also. There is no history of any fever, rigors, chills. The most recently the patient was admitted last year with hypoglycemia and history of asthma. There is no history of fever, rigors. No history of headache, loss of consciousness, or seizures. PAST MEDICAL HISTORY: History of asthma, GERD, seizure disorder, hypothyroidism, tachycardia, bariatric surgery, cholecystectomy, anxiety, depression. MEDICATIONS: Medications prior to admission home medications are: 1. Trazodone 100 mg q.h.s. 2. Zanaflex 4 mg q.8 p.r.n. 3. Lyrica 75 mg p.o. t.i.d. 4. Paxil 20 mg q.h.s. 5. Zofran 4 mg q.8 p.r.n. 6. Xolair 300 mg subcu 30 days. 7. Multivitamin one p.o. daily. 8. Singulair 10 mg q.h.s. 9. Concerta 36 mg p.o. daily. 10.Depo-Provera 150 mg q. 11.Synthroid 125 mcg p.o. daily. 12.Xopenex 0.63 mg q.i.d. p.r.n. 13.[place] 7.5 q.6 p.r.n. 14.Iron sulfate 325 mg daily. 15.Colace 100 mg q.h.s. 16.Vitamin D3, 1000 daily. 17.Ventolin HFA 2 puffs q.i.d. p.r.n. ALLERGIES: Allergies are none. FAMILY HISTORY: History of cancer. Son of brain cancer. SOCIAL HISTORY: No history of smoking. No history of alcohol intake. REVIEW OF SYSTEMS: ENT: No diminished hearing or diminished vision. CARDIOVASCULAR SYSTEM: No angina. RESPIRATORY SYSTEM: As mentioned earlier. GI: As mentioned earlier. : As mentioned earlier. NERVOUS SYSTEM: As mentioned earlier. ALLERGY/IMMUNOLOGY: As mentioned earlier. MUSCULOSKELETAL: As mentioned earlier. HEMATOLOGY/ONCOLOGY: No history of anemia. ENDOCRINE: As mentioned earlier. CONSTITUTIONAL: As mentioned earlier. DERMATOLOGY: Negative. RHEUMATOLOGY: Negative. PSYCHIATRY: As mentioned earlier. PHYSICAL EXAMINATION: The patient is alert and oriented x3. Pulse 67, blood pressure 95/60, respirations 16, temperature 98.6, pulse ox 98% on room air. HEENT: Conjunctivae normal. Oral mucosa is dry. Neck is no jugular venous distention. No carotid bruit. No lymph node enlargement. CARDIOVASCULAR: S1, S2 muffled. No S3, no S4. RESPIRATORY: Breath sounds diminished at the bases. Scattered rhonchi. ABDOMEN: Soft, nontender. No mass palpable. LEGS: No edema, no swelling. NERVOUS SYSTEM: Higher function as mentioned. Moves all 4 limbs. No focal motor deficits. LYMPHATICS: No lymphadenopathy of the neck, axillae or groin. SKIN: No ulcer, rash or bleeding. JOINTS: No active deforming arthropathy. LABS: Labs are at this time WBC 7.8, hemoglobin 12.5, sodium 140, potassium 4.1, glucose 133. UA noted. ASSESSMENT: 1. Syncope possibly secondary to orthostatic hypotension secondary to dehydration. 2. Chronic kidney disease of undetermined etiology, rule out chronic glomerulonephritis. 3. Hypoglycemia. 4. History of asthma. 5. History of gastroesophageal reflux disease. 6. Seizure disorder. 7. Hypothyroidism. 8. History of recent hypodense areas on the MRI scan. 9. History of peptic ulcer disease. 10.History of multiple respiratory failure and ventilator-dependent respiratory secondary to asthma attacks. 11.History of bulimia. 12.History of constipation. 13.History of peptic ulcer. 14.History of methicillin-resistant Staphylococcus aureus. 15.History of fracture right foot. 16.History of bariatric surgery. 17.History of cholecystectomy. 18.History of anxiety, depression. 19.FULL CODE. RECOMMENDATIONS AND DISCUSSION: In this 37-year-old woman who presented with multiple complex medical issues, we will monitor the patient closely. Continue the current medications, continue symptomatic treatment. Otherwise at this time I recommend continue with IV fluid bolus, orthostatic vitals. Otherwise, repeat labs. I would also recommend baseline labs to rule out the possibility of and autoimmune syndrome as well otherwise recommend close follow up with Rheumatology as an outpatient and as well as Neurology as an outpatient as well for continued workup. Prognosis guarded. Further recommendations to follow. A copy of dictation forwarded to Dr. Gonzalez who is the primary physician. JEANNINE / MONTY: [id number] / MTDD
[2018-07-11] MEDS: PANTOPRAZOLE 40 MG TABLET PO SCH (07:36)
[2018-07-11] MEDS: CHOLECALCIFEROL 1,000 UNIT TAB PO SCH (07:37)
[2018-07-11] MEDS: FERROUS SULFATE 325 MG TAB PO SCH (07:37)
[2018-07-11] MEDS: METHYLPHENIDATE HCL 10 MG TAB PO SCH ×2 (07:37→14:31)
[2018-07-11] MEDS: HEPARIN SODIUM,PORCINE 5,000 UNIT/ML 1 ML VIAL SQ SCH ×2 (07:38→20:20)
[2018-07-11] MEDS: MULTIVITAMINS, THERA 1 EACH TAB PO SCH (07:38)
[2018-07-11] MEDS: PREGABALIN 75 MG CAP PO SCH ×3 (07:39→21:15)
[2018-07-11 10:59] LABS: Glucose,Whole Blood 102 mg/dL (75-99)
--- NOTE | 2018-07-11 11:08 | ECHOF ---
Referral Reason:HYPOTENSION MEASUREMENTS -------- HEIGHT: 0.0 cm WEIGHT: 0.0 kg BP: RVIDd: 2.0 cm (< 3.3) IVSd: 1.1 cm (0.6 - 1.1) LVIDd: 4.0 cm (3.9 - 5.3) LVPWd: 1.2 cm (0.6 - 1.1) IVSs: 1.4 cm LVIDs: 2.3 cm LVPWs: 1.4 cm Ao Diam: 2.6 cm (2.0 - 3.7) AV Cusp: 2.0 cm (1.5 - 2.6) LA Diam: 3.0 cm (2.7 - 3.8) EPSS: 0.3 cm MV E [place]: 1.08 m/s MV A [place]: 0.38 m/s MV E/A Ratio: 2.83 RAP: 5.00 mmHg RVSP: 19.70 mmHg MV EF SLOPE: 142.43 mm/s (70 - 150) MV EXCURSION: 1.90 cm (> 18.000) FINDINGS -------- Sinus rhythm. This was a technically good study. The left ventricular size is normal. Left ventricular wall thickness is normal. Overall left vent ricular systolic function is normal with, an EF between 55 - 60 %. The right ventricle is normal in size. The left atrium is normal in size. The right atrium is normal in size. The aortic valve is trileaflet and appears structurally normal. There is trace mitral regurgitation. Trace tricuspid regurgitation present. The right ventricular systolic pressure, as measured by Dopp ler, is 19.70mmHg. Pulmonic valve appears structurally normal. The aortic root size is normal. Normal inferior vena cava with normal inspiratory collapse consistent with estimated right atrial pre ssure of 5 mmHg. The pericardium is normal. CONCLUSIONS -------- 1. Sinus rhythm. 2. This was a technically good study. 3. The left ventricular size is normal. 4. Left ventricular wall thickness is normal. 5. Overall left ventricular systolic function is normal with, an EF between 55 - 60 %. 6. The right ventricle is normal in size. 7. The left atrium is normal in size. 8. The right atrium is normal in size. 9. The aortic valve is trileaflet and appears structurally normal. 10. There is trace mitral regurgitation. 11. Trace tricuspid regurgitation present. 12. The right ventricular systolic pressure, as measured by Doppler, is 19.70mmHg. 13. Pulmonic valve appears structurally normal. 14. The aortic root size is normal. 15. Normal inferior vena cava with normal inspiratory collapse consistent with estimated right atrial pressure of 5 mmHg. 16. The pericardium is normal. DEMOLITION CRANE OPERATOR: Nadia Arellano RDCS
[2018-07-11 11:31] VITALS: RESP 16
[2018-07-11] MEDS ORDERED: SODIUM CHLORIDE 0.9% 500 ML 500 ML IV ONE (11:48)
[2018-07-11] MEDS: SODIUM CHLORIDE 0.9% 1,000 ML IV SCH ×2 (16:58→21:26)
--- NOTE | 2018-07-11 18:03 | PN ---
PROGRESS NOTE DATE OF SERVICE: 07/11/2018 This 37-year-old woman who was admitted with syncope secondary to orthostatic hypotension secondary to dehydration is being closely monitored. The patient has multiple symptomatology, including chronic kidney disease, recent neurological illnesses. The patient complained of weakness and tiredness also. No chest pain. No palpitations. Patient is followed by a primary care and has a neurologist elsewhere. A 2D echo with Doppler was done by Cardiology which showed ejection fraction about 50% to 60% and no significant valvular abnormalities. On exam, alert and oriented x3. Pulse is 58, blood pressure 92/60, minimal orthostatic changes, respiration 16, temperature 98 degrees, pulse ox 99% on room air. HEENT: Conjunctivae normal. NECK: No jugular venous distention. CARDIOVASCULAR SYSTEM: S1, S2 muffled. RESPIRATORY SYSTEM: Breath sounds diminished at the bases. Bilateral scattered rhonchi and crackles ABDOMEN: Soft, non-tender. LEGS: No edema. No swelling. NERVOUS SYSTEM: No focal deficit. Labs at this time show Accu-Cheks are 102. UA noted. ASSESSMENT: 1. Syncope, possibly secondary to orthostatic hypotension secondary to dehydration. 2. Chronic kidney disease of undetermined etiology. Rule out chronic glomerulonephritis. 3. Hypoglycemia history. 4. History of asthma. 5. History of gastroesophageal reflux disease. 6. History of seizure disorder. 7. History of hypothyroidism. 8. History of recent hypodense areas in MRI scan per patient. 9. History of peptic ulcer disease. 10.History of ventilator-dependent respiratory failure secondary to asthma previously; multiple attacks. 11.History of bulimia. 12.History of constipation. 13.History of peptic ulcer. 14.History of methicillin-resistant Staphylococcus aeruginosa. 15.History of fracture of right foot. 16.History of bariatric surgery. 17.History of cholecystectomy. 18.Anxiety, depression. 19.FULL CODE. RECOMMENDATIONS AND DISCUSSION: I recommend to continue current medications, continue with the monitoring, symptomatic treatment. Otherwise, bolus fluids, IV fluids. Continue the rest of the medications. I would also recommend nephrology evaluation. Patient might also require a renal biopsy. The patient also has multiple symptomatology. PT/OT evaluation is recommended. At this time I would recommend close followup with Neurology in the outpatient setting. Prognosis guarded. Further recommendations to follow. MMODL / IJN: [id number] /
[2018-07-11 18:17] LABS: Rheumatoid Factor 8 IU/mL (0-15)
[2018-07-11] MEDS ORDERED: MONTELUKAST 10 MG TAB PO SCH (21:00)
[2018-07-11] MEDS ORDERED: DOCUSATE 100 MG CAP PO SCH (21:00)
[2018-07-11] MEDS: PARoxetine 20 MG TAB PO SCH (21:15)
[2018-07-11] MEDS: traZODone HCL 50 MG TAB PO SCH (21:39)
[2018-07-12 05:20] VITALS: TEMP 98.7
[2018-07-12] MEDS: LEVOTHYROXINE 50 MCG TAB PO SCH (05:40)
[2018-07-12 07:22] LABS: Basophils % (A) 1 %; Eosinophils # (A) 0.2 k/uL (0-0.7); Eosinophils % (A) 5 %; HGB 12.6 gm/dL (11.4-16.0); Lymphocytes # (A) 1.1 k/uL (1.0-4.8); Lymphocytes % (A) 29 %; MCH 33.7 pg (25.0-35.0); MCHC 36.1 g/dL (31.0-37.0); MCV 93.3 fL (80.0-100.0); Monocytes # (A) 0.2 k/uL (0-1.0); Monocytes % (A) 6 %; Neutrophils # (A) 2.1 k/uL (1.3-7.7); Neutrophils % (A) 58 %; Platelet Count 128 k/uL (150-450); RBC 3.75 m/uL (3.80-5.40); RDW 12.6 % (11.5-15.5); WBC 3.6 k/uL (3.8-10.6)
[2018-07-12] MEDS: MULTIVITAMINS, THERA 1 EACH TAB PO SCH (07:31)
[2018-07-12] MEDS: PREGABALIN 75 MG CAP PO SCH ×2 (07:31→16:51)
[2018-07-12] MEDS: FERROUS SULFATE 325 MG TAB PO SCH (07:31)
[2018-07-12] MEDS: PANTOPRAZOLE 40 MG TABLET PO SCH (07:31)
[2018-07-12] MEDS: HYDROcodone/APAP 7.5-325MG 1 EACH TAB PO PRN ×2 (07:32→14:52)
[2018-07-12] MEDS: HEPARIN SODIUM,PORCINE 5,000 UNIT/ML 1 ML VIAL SQ SCH (07:32)
[2018-07-12] MEDS: METHYLPHENIDATE HCL 10 MG TAB PO SCH ×2 (07:32→14:52)
[2018-07-12] MEDS: CHOLECALCIFEROL 1,000 UNIT TAB PO SCH (07:32)
[2018-07-12 07:38] LABS: Potassium 4.5 mmol/L (3.5-5.1)
[2018-07-12] MEDS: SODIUM CHLORIDE 0.9% 1,000 ML IV SCH (08:24)
[2018-07-12 11:56] VITALS: BP 91/59; PULSE 70
--- NOTE | 2018-07-12 15:19 | CONS ---
CONSULTATION REASON FOR CONSULT: Chronic kidney disease, hematuria. HISTORY OF PRESENT ILLNESS: Patient is a 37-year-old female who was admitted to the hospital with syncope. She was found to be orthostatic with standing blood pressure as low as 82 mmHg. The patient has been evaluated at our office for hematuria and chronic kidney disease. She had all serological workup done in January, which was all negative. Serum creatinine has been about 1-1.0 mg/dL. UA shows no proteinuria, however, there is evidence of hematuria. The patient had kidney stones, however, last intervention was in 2016. She has not had any episodes of renal colic recently. I do not see abdominal imaging done recently. The patient also has been complaining of increasing weakness in her lower extremities. She had an MRI done which showed multiple hypodense areas. There was consideration for underlying multiple sclerosis. I have discussed with the patient that she will likely need a kidney biopsy given the unexplained hematuria, however, at this time there are plans for possible transferred the patient to [facility]. She denies use of any nonsteroidal anti-inflammatory agents. PAST MEDICAL HISTORY: Asthma, gastroesophageal reflux disease, seizure disorder, hypothyroidism, anxiety, depression, PAST SURGICAL HISTORY: Cholecystectomy, bariatric surgery. MEDICATIONS: Prior to admission included: 1. Trazodone. 2. Zanaflex. 3. Lyrica. 4. Paxil. 5. Zofran. 6. Singular. 7. Concerta. 8. Depo-Provera. 9. Synthroid. 10.Xopenex. 11.[place]. 12.Colace. 13.Iron. 14.Vitamin D3. ALLERGIES: None. FAMILY HISTORY: Negative for kidney disease. SOCIAL HISTORY: Negative for smoking, drug abuse or alcohol abuse. REVIEW OF SYSTEMS: As per HPI. Other systems negative. PHYSICAL EXAMINATION: Blood pressure is 81/50, heart rate of 70 per minute. Lying blood pressure 91/59. HEART: S1, S2. LUNGS: Bilateral breath sounds are heard. ABDOMEN: Soft, nontender. EXTREMITIES: Lower extremities shows no evidence of edema. 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 There are no focal motor deficits noted. LABS: Sodium 141, potassium 4.5, chloride 115, BUN 8, serum creatinine 1.02, hemoglobin 12.6. ASSESSMENT: 1. Chronic kidney disease with baseline creatinine about 1 to 1.0. The patient has been evaluated at our office previously. She has had serological workup done, which was all negative. Her serum creatinine has stayed at about 1 to 1.0 mg/dL. She has not had proteinuria. The patient does have a history of kidney stones, however, lately she has not had any episodes of renal colic. I will check an ultrasound of the kidneys. Consider kidney biopsy to complete the workup for the hematuria. Again, as mentioned, all serologies were checked in January including hepatitis panel, KEVIN complements, anti-double stranded DNA, HIV, which were all negative. 2. Possibility of multiple sclerosis, being followed by Neurology out of [place]. 3. Orthostatic hypotension. Check cortisol level if not done yet. PLAN: Continue with IV fluids. Check serum cortisol level. Consider kidney biopsy down the road. Thank you for this consultation. We will continue to follow the patient with you during her hospitalization. JEANNINE / MONTY: [id number] /
--- NOTE | 2018-07-12 17:34 | DS ---
DISCHARGE SUMMARY FINAL DIAGNOSES: 1. Syncope possibly secondary to orthostatic hypotension secondary to dehydration. 2. Generalized weakness and tiredness, rule out Guillain [place] syndrome or multiple sclerosis acute exacerbation or CIDP. 3. Chronic kidney disease, undetermined etiology. Rule out chronic glomerulonephritis. 4. Hypoglycemia history. 5. History of asthma. 6. History of gastroesophageal reflux disease. 7. History of seizure disorder. 8. History of hypothyroidism. 9. History of recent hyperdense areas on the MRI scan per patient. 10.History of peptic ulcer disease. 11.History vent dependent respiratory failure secondary to asthma previously multiple attacks. 12.History of bulimia. 13.History of constipation. 14.History of peptic ulcer disease. 15.History of MRSA. 16.History of bariatric surgery. 17.History of fracture right foot. 18.History of cholecystectomy. 19.Anxiety, depression. 20.FULL CODE. DISCHARGE DISPOSITION: The patient transferred to [facility] in a stable condition with guarded prognosis. HISTORY OF PRESENT ILLNESS: This is 37-year-old woman with a past medical history of multiple medical problems as mentioned earlier, being followed by Dr. Gonzalez in the outpatient setting admitted with syncope, orthostatic hypotension. Patient treated with IV fluids, but the patient also complaining of significant weakness, which is progressing over several days. The patient has significant difficulties walking. The proximal muscle weakness was noted. The patient also had hyperdense lesions on the MRI done by neurologist elsewhere recently. The case discussed with [facility]. Because of concerns of Guillain [place] syndrome and CIDP and other neurological illnesses, the patient being transferred to [facility] in stable condition with guarded prognosis. The patient also had multiple other features of multi-system abnormalities as well as listed above. Currently the patient is stable but overall prognosis guarded and further recommendations to follow. On exam, vital signs are as noted. Cardiovascular System: S1, S2. Respiration: Breath sounds diminished in the bases. Abdomen soft. Nervous system: Diffusely weak. Please refer to the current medication reconciliation for list of medications. MMODL / IJN: [id number] /
== END 2018-07-12 18:29 | disposition short-term general hospital (02) | DRG 312 ==
LOC: EC 15:25 → 3NMEDONC 18:49
PROVIDERS: ADMIT Internal Medicine; ATTEND Internal Medicine
DX: I95.1 Orthostatic hypotension (principal); G61.0 Guillain-Barre syndrome; G61.81 Chronic inflammatory demyelinating polyneuritis; G35 Multiple sclerosis; C53.9 Malignant neoplasm of cervix uteri, unspecified; E86.0 Dehydration; E16.2 Hypoglycemia, unspecified; E03.9 Hypothyroidism, unspecified; N18.9 Chronic kidney disease, unspecified; J45.909 Unspecified asthma, uncomplicated; S01.01XA Laceration without foreign body of scalp, initial encounter; G89.29 Other chronic pain; K21.9 Gastro-esophageal reflux disease without esophagitis; G40.909 Epilepsy, unspecified, not intractable, without status epilepticus; G43.909 Migraine, unspecified, not intractable, without status migrainosus; F32.9 Major depressive disorder, single episode, unspecified; M19.90 Unspecified osteoarthritis, unspecified site; F41.9 Anxiety disorder, unspecified; K59.00 Constipation, unspecified; Z79.890 Hormone replacement therapy; Z79.899 Other long term (current) drug therapy; Z87.11 Personal history of peptic ulcer disease; Z86.14 Personal history of Methicillin resistant Staphylococcus aureus infection; Z98.84 Bariatric surgery status; Z87.81 Personal history of (healed) traumatic fracture; Z90.49 Acquired absence of other specified parts of digestive tract; Z87.442 Personal history of urinary calculi; Z86.59 Personal history of other mental and behavioral disorders; Z80.8 Family history of malignant neoplasm of other organs or systems; Z80.0 Family history of malignant neoplasm of digestive organs; Z82.5 Family history of asthma and other chronic lower respiratory diseases; Z83.79 Family history of other diseases of the digestive system; W19.XXXA Unspecified fall, initial encounter
CPT/HCPCS: 36415; 70450; 71046; 72125; 80048; 80053; 80306; 81001; 82550; 83735; 84484; 85025; 85610; 85652; 86038; 86140; 86431; 86850; 86900; 86901; 87086; 93005; 93306; 99285

== ENCOUNTER 2018-07-27 10:39 | Emergency (ER) | payer OTHER ==
[2018-07-27 10:50] VITALS: RESP 18
[2018-07-27] MEDS ORDERED: SODIUM CHLORIDE 0.9% 1,000 ML IV STA (11:25)
[2018-07-27] MEDS ORDERED: ONDANSETRON 4 MG/2 ML VIAL IVP STA (11:25)
--- NOTE | 2018-07-27 12:02 | ED ---
General Adult HPI - General Chief complaint: Nausea/Vomiting/Diarrhea Stated complaint: POSS DEHYDRATION, CELLULITIS ON RT ARM Time Seen by Provider: 07/27/18 11:21 Source: patient Mode of arrival: ambulatory Limitations: no limitations - History of Present Illness Initial comments: 37-year-old feel presenting today for chief complaint of dehydration. Patient states that she had similar right upper arm after injection of a steroid. Patient states she was prescribed doxycycline, she states since she's been on the antibiotic she has been vomiting and had diarrhea. She states she believes is associated as there is a direct correlation with episodes of vomiting after administration of medication. Patient denies any medication allergies. Patient states she has had distant history of MRSA. Patient states she feels generalized weak, she believes she is dehydrated from the diarrhea and vomiting that has been ongoing for the past week. Patient states she has not one in answer to what is going on she states she knows why she feels this may and the cause. She states she would just like IV hydration and symptomatic treatment. Upon arrival patient appears well remaining review of systems negative, patient denies any recent spread of erythema, fever, chills, shortness of breath, chest pain, back pain, abdominal pain, nausea or vomiting, numbness or tingling, dysuria or hematuria, constipation or diarrhea, headaches or visual changes, or any other complaints. - Related Data Home Medications Medication Instructions Recorded Confirmed Montelukast [Singulair] 10 mg PO HS 09/30/13 07/17/18 traZODone HCL [Desyrel] 100 mg PO HS 11/21/15 07/17/18 PARoxetine [Paxil] 20 mg PO HS 08/27/17 07/17/18 Methylphenidate HCl [Concerta] 36 mg PO DAILY 10/22/17 07/17/18 Albuterol Inhaler [Ventolin Hfa 2 puff INHALATION RT-QID PRN 04/01/18 07/17/18 Inhaler] Cholecalciferol [Vitamin D3] 1,000 unit PO DAILY 07/10/18 07/17/18 Docusate [Colace] 100 mg PO HS 07/10/18 07/17/18 Ferrous Sulfate [Feosol] 325 mg PO DAILY 07/10/18 07/17/18 Levalbuterol HCl [Xopenex 0.63 mg INHALATION RT-QID PRN 07/10/18 07/17/18 Nebulized] Levothyroxine Sodium [Synthroid] 125 mcg PO DAILY 07/10/18 07/17/18 Medroxyprogesterone Acetate 150 mg IM Q84D 07/10/18 07/17/18 [Depo-Provera] Multivitamins, Thera [Multivitamin 1 tab PO DAILY 07/10/18 07/17/18 (formulary)] Omalizumab [Xolair] 300 mg SQ Q30D 07/10/18 07/17/18 Ondansetron [Zofran] 4 mg PO Q8HR PRN 07/10/18 07/17/18 tiZANidine [Zanaflex] 4 mg PO Q8HR PRN 07/10/18 07/17/18 Previous Rx's Medication Instructions Recorded HYDROcodone/APAP 7.5-325MG [[place] 1 tab PO Q6HR PRN #120 tab 06/02/18 7.5-325] Pregabalin [Lyrica] 75 mg PO TID #90 cap 06/02/18 Cephalexin [Keflex] 500 mg PO Q8HR 7 Days #21 cap 07/27/18 Sulfamethox-Tmp 800-160Mg [Bactrim 1 tab PO Q12HR 7 Days #14 tab 07/27/18 DS 800-160 mg] Allergies Allergy/AdvReac Type Severity Reaction Status Date / Time No Known Allergies Allergy Verified 07/27/18 10:46 Review of Systems ROS Statement: Those systems with pertinent positive or pertinent negative responses have been documented in the HPI. ROS Other: All systems not noted in ROS Statement are negative. 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 PAST ULCER, HERNIATED DIS,FX RT FOOT IN DEC AND RE -FX 05/15/17 . recently dx. with cervical ca. Migraines. History of Any Multi-Drug Resistant Organisms: None Reported, MRSA Date of last positivie culture/infection: 08/25/14 MDRO Source:: rt Groin Past Surgical History: Bariatric Surgery, Cholecystectomy, Orthopedic Surgery, Tonsillectomy Additional Past Surgical History / Comment(s): tilt table test, lap band 2008; NASAL FX REPAIR , ORIF LT ELBOW X2, PAIN PROCEDURES for migraines. Surgery on her cervix for cancer. Past Anesthesia/Blood Transfusion Reactions: Postoperative Nausea & Vomiting ( PONV) Past Psychological History: Anxiety, Depression Smoking Status: Never smoker Past Alcohol Use History: None Reported Past Drug Use History: None Reported - Past Family History Mother Family Medical History: Pneumonia Additional Family Medical History / Comment(s): Mother of pneumonia. Patient's son of brain cancer, last mother and father both liver cancer Son(s) Family Medical History: Cancer Additional Family Medical History / Comment(s): Son of brain cancer. Father Family Medical History: Cancer, Liver Disease Additional Family Medical History / Comment(s): Father has liver cancer with surgery. He has hepatitis. General Exam - General Exam Comments Initial Comments: General: The patient is awake and alert, in no distress, and does not appear acutely ill. Eye: Pupils are equal, round and reactive to light, extra-ocular movements are intact. No nystagmus. There is normal conjunctiva bilaterally. No signs of icterus. Ears, nose, mouth and throat: There are moist mucous membranes and no oral lesions. Neck: The neck is supple, there is no tenderness or JVD. Cardiovascular: There is a regular rate and rhythm. No murmur, rub or gallop is appreciated. Respiratory: Lungs are clear to auscultation, respirations are non-labored, breath sounds are equal. No wheezes, stridor, rales, or rhonchi. Gastrointestinal: Soft, non-distended, non-tender abdomen without masses or organomegaly noted. There is no rebound or guarding present. No CVA tenderness. Bowel sounds are unremarkable. Musculoskeletal: Normal ROM, no tenderness. Strength 5/5. Sensation intact. Radial pulses equal bilaterally 2+. Neurological: A&O x 3. CN II-XII intact, There are no obvious motor or sensory deficits. Coordination appears grossly intact. Speech is normal. Skin: Skin is warm and dry and no rashes or lesions are noted. Mild soft tissue erythema of right UE, no warmth to palpation, no abscess. Psychiatric: Cooperative, appropriate mood & affect, normal judgment. Limitations: no limitations Course Vital Signs 07/27/18 07/27/18 10:46 13:02 Temperature 97.9 F 98.1 F Pulse Rate 91 72 Respiratory 18 18 Rate Blood Pressure 106/72 106/69 O2 Sat by Pulse 98 100 Oximetry Medical Decision Making - Medical Decision Making Laboratory studies unremarkable. UA revealed hematuria, pt denies pain. Patient appears moist on examination. Remaining review of system negative. Lungs clear to auscultation. Patient given IV fluids as well as Zofran. Patient states she has significant improvement of symptoms. Patient requesting discharge. Given significant GI upset from doxycycline patient and about regimen switch to Bactrim and Keflex. Patient was given instruction to follow- up with primary care provider as well as dermatology for cellulitis. Patient denies any worsening or progressive symptoms of the right upper arm cellulitis. Appears mild. I discussed the case with attending provider Dr. Laguna who is agreeable with patient discharge and f/u plan. Pt has scheduled appointment Saturday with Urology for hematuria--patient states this has been ongoing for the past month and is not new. Return parameters were discussed at length the patient, patient verbalizes understanding. Patient denied questions upon discharge. - Lab Data Result diagrams: 07/27/18 11:52 07/27/18 11:52 Lab Results 07/27/18 07/27/18 07/27/18 Range/Units 11:52 11:52 11:52 WBC 7.3 (3.8-10.6) k/uL RBC 4.01 (3.80-5.40) m/uL Hgb 13.4 (11.4-16.0) gm/dL Hct 37.5 (34.0-46.0) % MCV 93.6 (80.0-100.0) fL MCH 33.5 (25.0-35.0) pg MCHC 35.8 (31.0-37.0) g/dL RDW 12.5 (11.5-15.5) % Plt Count 245 (150-450) k/uL Neutrophils % 63 % Lymphocytes % 27 % Monocytes % 5 % Eosinophils % 4 % Basophils % 1 % Neutrophils # 4.6 (1.3-7.7) k/uL Lymphocytes # 2.0 (1.0-4.8) k/uL Monocytes # 0.4 (0-1.0) k/uL Eosinophils # 0.3 (0-0.7) k/uL Basophils # 0.0 (0-0.2) k/uL Sodium 139 (137-145) mmol/L Potassium 4.2 (3.5-5.1) mmol/L Chloride 108 H (98-107) mmol/L Carbon Dioxide 23 (22-30) mmol/L Anion Gap 8 mmol/L BUN 13 (7-17) mg/dL Creatinine 1.03 (0.52-1.04) mg/dL Est GFR (CKD-EPI)AfAm 80 (>60 ml/min/1.73 sqM) Est GFR (CKD-EPI)NonAf 70 (>60 ml/min/1.73 sqM) Glucose 94 (74-99) mg/dL Calcium 9.4 (8.4-10.2) mg/dL Total Bilirubin 0.7 (0.2-1.3) mg/dL AST 25 (14-36) U/L ALT 27 (9-52) U/L Alkaline Phosphatase 42 (38-126) U/L Total Protein 6.9 (6.3-8.2) g/dL Albumin 4.5 (3.5-5.0) g/dL Lipase 59 (23-300) U/L Urine Color Yellow Urine Appearance Clear (Clear) Urine pH 6.0 (5.0-8.0) Ur Specific [place] 1.025 (1.001-1.035) Urine Protein Trace H (Negative) Urine Glucose (UA) Negative (Negative) Urine Ketones Negative (Negative) Urine Blood Moderate H (Negative) Urine Nitrite Negative (Negative) Urine Bilirubin Negative (Negative) Urine Urobilinogen <2.0 (<2.0) mg/dL Ur Leukocyte Esterase Trace H (Negative) Urine RBC >182 H (0-5) /hpf Urine WBC 7 H (0-5) /hpf Ur Squamous Epith Cells 1 (0-4) /hpf Urine Mucus Many H (None) /hpf Disposition Clinical Impression: Nausea vomiting and diarrhea Disposition: HOME SELF-CARE Condition: Good Instructions (If sedation given, give patient instructions): Acute Nausea and Vomiting (ED), Acute Diarrhea (ED) Additional Instructions: Please use newly prescribed medication as discussed. Please follow-up with family doctor in the next 2 days. Discontinue doxycycline. Please return to emergency room if the symptoms increase or worsen or for any other concerns. Prescriptions: Cephalexin [Keflex] 500 mg PO Q8HR 7 Days #21 cap Sulfamethox-Tmp 800-160Mg [Bactrim DS 800-160 mg] 1 tab PO Q12HR 7 Days #14 tab Is patient prescribed a controlled substance at d/c from ED?: No Referrals: Slade Gonzalez MD [Primary Care Provider] - 1-2 days Time of Disposition: 12:48
[2018-07-27] MEDS ORDERED: cefTRIAXone IN SWFI 1,000 MG/10 ML SYRINGE IVP STA (12:04)
[2018-07-27 12:17] LABS: Basophils % (A) 1 %; Eosinophils # (A) 0.3 k/uL (0-0.7); Eosinophils % (A) 4 %; HCT 37.5 % (34.0-46.0); HGB 13.4 gm/dL (11.4-16.0); Lymphocytes % (A) 27 %; MCH 33.5 pg (25.0-35.0); MCHC 35.8 g/dL (31.0-37.0); MCV 93.6 fL (80.0-100.0); Mean Platelet Volume 7.7; Monocytes # (A) 0.4 k/uL (0-1.0); Monocytes % (A) 5 %; Neutrophils # (A) 4.6 k/uL (1.3-7.7); Neutrophils % (A) 63 %; Platelet Count 245 k/uL (150-450); RBC 4.01 m/uL (3.80-5.40); RDW 12.5 % (11.5-15.5); WBC 7.3 k/uL (3.8-10.6)
[2018-07-27 12:21] LABS: Appearance,Urine Clear (Clear); Bilirubin,Urine Negative (Negative); Blood,Urine Moderate (Negative); Color,Urine Yellow; Glucose,Urine (UA) Negative (Negative); Ketones,Urine Negative (Negative); Leukocyte Esterase,Urine Trace (Negative); Mucus,Urine Many /hpf; Nitrite,Urine Negative (Negative); Protein,Urine Trace (Negative); RBC,Urine >182 /hpf (0-5); Specific Gravity,Urine 1.025 (1.001-1.035); Squamous Epithelial Cell,Urine 1 /hpf (0-4); Urobilinogen,Urine <2.0 mg/dL (<2.0); WBC,Urine 7 /hpf (0-5)
[2018-07-27 12:27] LABS: Albumin 4.5 g/dL (3.5-5.0); Calcium 9.4 mg/dL (8.4-10.2); Potassium 4.2 mmol/L (3.5-5.1); Total Bilirubin 0.7 mg/dL (0.2-1.3); Total Protein 6.9 g/dL (6.3-8.2)
[2018-07-27 13:03] VITALS: BP 106/69; PULSE 72; TEMP 98.1
== END 2018-07-27 13:25 | disposition home or self-care (01) ==
LOC: EC 10:39
DX: R11.2 Nausea with vomiting, unspecified (principal); R19.7 Diarrhea, unspecified; J45.909 Unspecified asthma, uncomplicated; G40.909 Epilepsy, unspecified, not intractable, without status epilepticus; E07.9 Disorder of thyroid, unspecified; D64.9 Anemia, unspecified; G43.909 Migraine, unspecified, not intractable, without status migrainosus; F32.9 Major depressive disorder, single episode, unspecified; F41.9 Anxiety disorder, unspecified; Z86.14 Personal history of Methicillin resistant Staphylococcus aureus infection; Z85.41 Personal history of malignant neoplasm of cervix uteri; Z79.890 Hormone replacement therapy; Z79.899 Other long term (current) drug therapy; Z98.84 Bariatric surgery status; Z90.49 Acquired absence of other specified parts of digestive tract
CPT/HCPCS: 36415; 80053; 83690; 85025; 81001; 99284; 96374; 96375; 96361 ×2; J2405; J0696

== ENCOUNTER → 2018-07-28 | Outpatient (CLI) | payer OTHER ==
[2018-07-28 14:21] VITALS: BP 134/91; PULSE 80; RESP 16
--- NOTE | 2018-08-07 12:24 | P.PN ---
Subjective Progress Note Date: 07/28/18 This is follow-up visit for this patient with a history of severe and chronic low back pain secondary to lumbar degenerative disc diseases , lumbar spondylosis with facet arthropathy, We have done interventional pain procedures radiofrequency ablation of the medial branch lumbar area, she was evaluated by a neurologist and he is ruling out MS, patient currently complaining of severe weakness in her lower extremity, and unsteady gait, and she is being evaluated a neurology team at [facility], undergoing diagnostic study, Patients currently on [place] 7.5/325 every 6 hours, Lyrica 75 mg every 8 hours Patient denies any side effects of the medication, denies excessive drowsiness or sleepiness, denies suicidal ideation, and reports that the current pain medication is helping to control the pain and improve activity of daily living , patient denies any fever or night sweats, denies any change in the bowel movements or urination Physical Examinations : 1-Constitutional : Cooperative , not in acute distress . 2-HEENT : nech ; supple , no Lymphadenopathy , no Thyromegaly , normal thyroid size . eyes : no ptosis , no icterus, no photophobia . ENT : normal of hearing , normal oropharynx , no Thrush . 3- Respiratory : Chest clear to auscultations Bilaterally , no wheezing , no Rhonchi . 4- Cardiovascular : regular rate and rhythem , S1 , S2 , no S3 , no S4. 5- Gastrointestinal : abdomen soft no tenderness , bowel sounds positive all four quadrents , no organomegally . 6- Genitourinary : Defferred . 7- neurologic: Cranial nerve II to XII intact , no focal neurological deffecit . 8- Psychatric: alert , oriented X 3 , appropriate affect , intact judgment and insight . 9- Lymphatic : no Lymphadenopathy . 10- Musculoskeltal : exams of the cervical spine = motor strength normal bilateral upper extremities facet loading test cervical area positive. exams of the Lumber spine =motor strength lower extremities ,thigh and legs .3/5 bilaterally deep tendon reflexes : ++ Knee Jerk , ++ ankle Jerk . lumber facet Loading Test positive strait leg raising test positive at 30 degree , RT ,LT , Fabere test positive RT and positive LT . Range of motion: Range of motion in flexion of the lumbar spine 30 degrees Range of motion range of motion of extension of the lumbar spine 10 Sever tenderness over the Sacroiliac joint on the Right , and Left side Assessment and plan = Chronic low back pain secondary to lumbar degenerative disc disease , lumbar spondylosis with facet arthropathy without myelopathy Upper back pain secondary to myofascial pain syndrome and cervical area. Midback pain secondary to thoracic herniated disc disease chronic and current use of high-risk medication (Opioids). The patient was counseled about risk of opioid use, psychological risk associated with opioids and was orally counseled to not overuse , divert,or sell dictations to take medications as prescribed only , and to restore medication in safe location , the patient counseled against driving while using narcotic medications, and also not to use alcohol or any illicit recreational drugs, patient's verbalized understanding that the lack of compliance will result in failure to renew narcotic prescription and possible discharge from the clinic - diagnoses, prognosis, and treatment options including but not limited to physical therapy, surgical interventions, interventional therapies , and medication management including narcotics and adjuvant medication were discussed with the patient and all the questions answered Prescription refill for Lyrica 75 mg 3 times a day dispense 90 with 1 refill, [place] 7.5/325 dispense 120 with one refill, Prescription for Zanaflex 4 mg daily at bedtime dispense 30 with one refill, patient could benefit from trigger point injections MAPS reviewed and is appropriate , Patient could benefit from repeat radiofrequency ablation medial branch lumbar area L3 L34 ,L45, L5S1, left side first and then we'll do the right side PQRS Measure Charge Sheet Measure #130: Documentation of Current Meds in Medical Chart: Patient's medications documented in chart Measure #226: Tobacco Use: Screen & Cessation Intervention: Pt not a tobacco us er Measure #111: Pneumonia Vaccination: Pneumococcal vaccine administered previously Measure #47: Advance Care Plan: Advance care planning discussed & documented, pt chose/unable to give Measure #412: Opioid Treatment Agreement: Documented signed opioid trtmnt agreemnt min once during opioid trtmnt Measure #408: Opioid Therapy Follow-up Evaluation: Patient had f/u eval minimum every 3 months during opioid therapy Measure #317: Preventitive Care & Scrn High Bld Press & F/U: Blood pressure within normal limits 134/91 and she will follow up with her primary care Measure #128: Body Mass Index (BMI) Screening & Follow-up: BMI documented ABOVE normal parameters - f/u documented Measure #131: Pain Assessment & Follow-up: Pain positive & plan documented, Follow-up scheduled Measure #431: Unhealthy Alcohol Use Preventative Care & Scrn: Patient not identified as an unhealthy alcohol user PQRS Narrative: Objective - Vital Signs Vital signs: Vital Signs Temp Pulse 133 H 06/02/18 13:40 Resp 18 06/02/18 13:40 BP 127/83 06/02/18 13:40 Pulse Ox 96 06/02/18 13:40
== END ==
LOC: PNWHC3 13:27
PROVIDERS: ATTEND Specialist
DX: G89.29 Other chronic pain (principal); M51.36 Other intervertebral disc degeneration, lumbar region; M51.24 Other intervertebral disc displacement, thoracic region; M47.816 Spondylosis without myelopathy or radiculopathy, lumbar region; M46.96 Unspecified inflammatory spondylopathy, lumbar region; M54.6 Pain in thoracic spine; M79.18 Myalgia, other site; Z79.891 Long term (current) use of opiate analgesic; Z79.899 Other long term (current) drug therapy
CPT/HCPCS: 99211

== ENCOUNTER → 2018-08-04 | Outpatient (CLI) | payer OTHER ==
--- NOTE | 2018-08-04 20:37 | CT ---
EXAMINATION TYPE: CT abdomen pelvis wo con DATE OF EXAM: 08/04/2018 COMPARISON: 09/17/2017 HISTORY: Gross hematuria. CT DLP: 558.9 mGycm Automated exposure control for dose reduction was used. TECHNIQUE: Helical acquisition of images was performed from the lung bases through the pelvis. FINDINGS: LUNG BASES: No significant abnormality is appreciated. LIVER/GB: Previous cholecystectomy changes are noted. PANCREAS: No significant abnormality is seen. SPLEEN: Sensory spleen noted. ADRENALS: No significant abnormality is seen. KIDNEYS: Left kidney: No hydronephrosis there are 2 less than 5 mm calculi. Right kidney: There is a punctate mid pole 1 mm calculus and a 3 mm lower pole calculus. No hydroneph rosis. ADENOPATHY: None visualized. OSSEOUS STRUCTURES: Hypertrophic change of the vertebral column noted. Spina bifida occulta of sacru m noted. BOWEL: No significant abnormality is seen. OTHER: Evidence of previous lap band surgery noted. There is a lobulated contour to the uterus. Corre late for fibroid uterus. IMPRESSION: 1. Bilateral nephrolithiasis with no hydronephrosis. If there is concern for renal mass correlate wit h ultrasound or contrast CT. 2. Previous lap band surgery. 3. Lobulated uterine contour suggestive of uterine fibroid. Ultrasound correlation recommended for co nfirmation given limitation of noncontrast exam.
== END | disposition home or self-care (01) ==
LOC: RADCTMAIN 16:44
PROVIDERS: ATTEND Surgery
DX: N20.0 Calculus of kidney (principal); Z98.84 Bariatric surgery status
CPT/HCPCS: 74176

== ENCOUNTER 2018-08-10 13:09 | Inpatient (IN) | payer OTHER ==
[2018-08-10] MEDS ORDERED: ALBUTEROL NEBULIZED 2.5 MG/3 ML INHALATION STA (13:40)
[2018-08-10] MEDS ORDERED: IPRATROPIUM 0.5 MG/2.5 ML NEBU INHALATION STA (13:40)
[2018-08-10] MEDS ORDERED: methylPREDNISolone SOD SUCCI 125 MG/2 ML VIAL IV STA (13:40)
[2018-08-10] MEDS ORDERED: SODIUM CHLORIDE 0.9% 1,000 ML IV STA (13:40)
[2018-08-10] MEDS ORDERED: SODIUM CHLORIDE 0.9% 500 ML 500 ML IV STA (13:40)
--- NOTE | 2018-08-10 14:25 | ED ---
General Adult HPI - General Chief complaint: Shortness of Breath Stated complaint: Asthma Time Seen by Provider: 08/10/18 13:28 Source: patient, RN notes reviewed, old records reviewed Mode of arrival: ambulatory Limitations: no limitations - History of Present Illness Initial comments: 37-year-old female history of asthma presenting with increased cough and dyspnea over the past several days. Patient has had significant asthma history including multiple admissions. She does endorse some complaints of subjective fever and chills. She has been taking 60 mg of oral prednisone with minimal improvement. Denies any history of DVT or PE. Patient denies lower extremity pain or swelling. She has no known sick contacts. No vomiting or diarrhea. - Related Data Home Medications Medication Instructions Recorded Confirmed Montelukast [Singulair] 10 mg PO HS 09/30/13 08/10/18 traZODone HCL [Desyrel] 100 mg PO HS 11/21/15 08/10/18 PARoxetine [Paxil] 40 mg PO HS 08/27/17 08/10/18 Methylphenidate HCl [Concerta] 36 mg PO DAILY 10/22/17 08/10/18 Albuterol Inhaler [Ventolin Hfa 2 puff INHALATION RT-QID PRN 04/01/18 08/10/18 Inhaler] Docusate [Colace] 100 mg PO HS 07/10/18 08/10/18 Levalbuterol HCl [Xopenex 0.63 mg INHALATION RT-QID PRN 07/10/18 08/10/18 Nebulized] Levothyroxine Sodium [Synthroid] 125 mcg PO DAILY 07/10/18 08/10/18 Medroxyprogesterone Acetate 150 mg IM Q90D 07/10/18 08/10/18 [Depo-Provera] Omalizumab [Xolair] 300 mg SQ Q30D 07/10/18 08/10/18 Ondansetron [Zofran] 4 mg PO Q8HR PRN 07/10/18 08/10/18 Carbidopa-Levodopa 25-100 mg 1 tab PO TID 08/08/18 08/10/18 [Sinemet 25-100] Cholecalciferol [Vitamin D3] 1,000 unit PO DAILY 08/10/18 08/10/18 Multivitamin,Therapeutic [Thera] 1 tab PO DAILY 08/10/18 08/10/18 Previous Rx's Medication Instructions Recorded HYDROcodone/APAP 7.5-325MG [[place] 1 tab PO Q6HR PRN #120 tab 07/28/18 7.5-325] Pregabalin [Lyrica] 75 mg PO TID #90 cap 07/28/18 tiZANidine [Zanaflex] 4 mg PO Q8HR PRN #90 tab 07/28/18 Allergies Allergy/AdvReac Type Severity Reaction Status Date / Time No Known Allergies Allergy Verified 08/10/18 13:43 Review of Systems ROS Statement: Those systems with pertinent positive or pertinent negative responses have been documented in the HPI. ROS Other: All systems not noted in ROS Statement are negative. 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 PAST ULCER, HERNIATED DIS,FX RT FOOT IN DEC AND RE-FX 05/15/17 . recently dx. with cervical ca. Migraines. History of Any Multi-Drug Resistant Organisms: None Reported, MRSA Date of last positivie culture/infection: 08/25/14 MDRO Source:: rt Groin Past Surgical History: Bariatric Surgery, Cholecystectomy, Orthopedic Surgery, Tonsillectomy Additional Past Surgical History / Comment(s): tilt table test, lap band 2007; NASAL FX REPAIR , ORIF LT ELBOW X2, PAIN PROCEDURES for migraines. Surgery on her cervix for cancer. Past Anesthesia/Blood Transfusion Reactions: Postoperative Nausea & Vomiting (PONV) Past Psychological History: Anxiety, Depression Smoking Status: Never smoker - Past Family History Mother Family Medical History: Pneumonia Additional Family Medical History / Comment(s): Mother of pneumonia. Patient's son of brain cancer, last mother and father both liver cancer Son(s) Family Medical History: Cancer Additional Family Medical History / Comment(s): Son of brain cancer. Father Family Medical History: Cancer, Liver Disease Additional Family Medical History / Comment(s): Father has liver cancer with surgery. He has hepatitis. General Exam Limitations: no limitations General appearance: alert, in no apparent distress Head exam: Present: atraumatic, normocephalic Eye exam: Present: normal appearance, PERRL ENT exam: Present: normal exam Neck exam: Present: normal inspection Respiratory exam: Present: respiratory distress, wheezes, rhonchi, decreased breath sounds Cardiovascular Exam: Present: normal rhythm, tachycardia GI/Abdominal exam: Present: soft. Absent: distended, tenderness Extremities exam: Present: normal inspection, normal capillary refill. Absent: pedal edema, calf tenderness Back exam: Present: normal inspection Neurological exam: Present: alert, oriented X3 Psychiatric exam: Present: normal affect, normal mood Skin exam: Present: warm, dry, intact. Absent: cyanosis, diaphoretic Course Vital Signs 08/10/18 08/10/18 08/10/18 13:21 13:48 13:55 Temperature 98.5 F Pulse Rate 132 H 121 H Respiratory 25 H 22 Rate Blood Pressure 130/79 O2 Sat by Pulse 98 Oximetry 08/10/18 14:26 Temperature Pulse Rate 131 H Respiratory Rate Blood Pressure O2 Sat by Pulse Oximetry - Reevaluation(s) Reevaluation #1: 08/10/18 15:41 Patient with persistent cough, will require admission for treatment of asthma exacerbation, influenza A. EKG Findings - EKG Comments: EKG Findings:: Sinus tachycardia, rate 128, MA interval 88, QRS duration 70, QTC 598 Medical Decision Making - Medical Decision Making 37-year-old history of asthma presents with cough and dyspnea off flulike symptoms. Patient is influenza A positive. She is in moderate respiratory distress, treated with a beetle, Atrovent, IV steroids in the emergency department. On reevaluation she is continued to have cough and dyspnea, will be admitted for asthma exacerbation, with influenza A. Chest x-ray negative for focal pneumonia. Normal CBC, normal CMP and lactic mildly elevated 2.7 treated with IV hydration. - Lab Data Result diagrams: 08/10/18 14:14 08/10/18 14:14 Lab Results 08/10/18 08/10/18 08/10/18 Range/Units 14:02 14:14 14:14 WBC 5.0 (3.8-10.6) k/uL RBC 4.30 (3.80-5.40) m/uL Hgb 13.7 (11.4-16.0) gm/dL Hct 39.5 (34.0-46.0) % MCV 92.0 (80.0-100.0) fL MCH 31.8 (25.0-35.0) pg MCHC 34.6 (31.0-37.0) g/dL RDW 11.8 (11.5-15.5) % Plt Count 153 (150-450) k/uL Neutrophils % 93 % Lymphocytes % 3 % Monocytes % 2 % Eosinophils % 1 % Basophils % 0 % Neutrophils # 4.6 (1.3-7.7) k/uL Lymphocytes # 0.2 L (1.0-4.8) k/uL Monocytes # 0.1 (0-1.0) k/uL Eosinophils # 0.1 (0-0.7) k/uL Basophils # 0.0 (0-0.2) k/uL PT (9.0-12.0) sec INR (<1.2) APTT (22.0-30.0) sec Sodium 144 (137-145) mmol/L Potassium 3.8 (3.5-5.1) mmol/L Chloride 109 H (98-107) mmol/L Carbon Dioxide 20 L (22-30) mmol/L Anion Gap 15 mmol/L BUN 10 (7-17) mg/dL Creatinine 0.92 (0.52-1.04) mg/dL Est GFR (CKD-EPI)AfAm >90 (>60 ml/min/1.73 sqM) Est GFR (CKD-EPI)NonAf 80 (>60 ml/min/1.73 sqM) Glucose 122 H (74-99) mg/dL Plasma Lactic Acid Yordan (0.7-2.0) mmol/L Calcium 10.1 (8.4-10.2) mg/dL Magnesium 1.6 (1.6-2.3) mg/dL Total Bilirubin 0.3 (0.2-1.3) mg/dL AST 15 (14-36) U/L ALT 13 (9-52) U/L Alkaline Phosphatase 62 (38-126) U/L Troponin I (0.000-0.034) ng/mL Total Protein 7.5 (6.3-8.2) g/dL Albumin 4.8 (3.5-5.0) g/dL Influenza Type A RNA Detected H (Not Detectd) Influenza Type B (PCR) Not Detected (Not Detectd) 08/10/18 08/10/18 08/10/18 Range/Units 14:14 14:14 14:14 WBC (3.8-10.6) k/uL RBC (3.80-5.40) m/uL Hgb (11.4-16.0) gm/dL Hct (34.0-46.0) % MCV (80.0-100.0) fL MCH (25.0-35.0) pg MCHC (31.0-37.0) g/dL RDW (11.5-15.5) % Plt Count (150-450) k/uL Neutrophils % % Lymphocytes % % Monocytes % % Eosinophils % % Basophils % % Neutrophils # (1.3-7.7) k/uL Lymphocytes # (1.0-4.8) k/uL Monocytes # (0-1.0) k/uL Eosinophils # (0-0.7) k/uL Basophils # (0-0.2) k/uL PT 10.3 (9.0-12.0) sec INR 1.0 (<1.2) APTT 24.3 (22.0-30.0) sec Sodium (137-145) mmol/L Potassium (3.5-5.1) mmol/L Chloride (98-107) mmol/L Carbon Dioxide (22-30) mmol/L Anion Gap mmol/L BUN (7-17) mg/dL Creatinine (0.52-1.04) mg/dL Est GFR (CKD-EPI)AfAm (>60 ml/min/1.73 sqM) Est GFR (CKD-EPI)NonAf (>60 ml/min/1.73 sqM) Glucose (74-99) mg/dL Plasma Lactic Acid Yordan 2.7 H* (0.7-2.0) mmol/L Calcium (8.4-10.2) mg/dL Magnesium (1.6-2.3) mg/dL Total Bilirubin (0.2-1.3) mg/dL AST (14-36) U/L ALT (9-52) U/L Alkaline Phosphatase (38-126) U/L Troponin I <0.012 (0.000-0.034) ng/mL Total Protein (6.3-8.2) g/dL Albumin (3.5-5.0) g/dL Influenza Type A RNA (Not Detectd) Influenza Type B (PCR) (Not Detectd) Critical Care Time Critical Care Time: Yes Total Critical Care Time: 35 Disposition Clinical Impression: Asthma with status asthmaticus, Influenza A Disposition: ADMITTED IP TO THIS HOSP Condition: Stable Is patient prescribed a controlled substance at d/c from ED?: No Referrals: Slade Gonzalez MD [Primary Care Provider] - 1-2 days Decision to Admit Reason: Admit from EC Decision Date: 08/10/18 Decision Time: 15:44
[2018-08-10] MEDS ORDERED: OSELTAMIVIR 75 MG CAP PO STA (14:28)
[2018-08-10] MEDS ORDERED: KETOROLAC 30 MG/ML 1 ML VIAL IVP STA (14:28)
[2018-08-10 14:32] LABS: Basophils % (A) 0 %; Eosinophils # (A) 0.1 k/uL (0-0.7); Eosinophils % (A) 1 %; HCT 39.5 % (34.0-46.0); HGB 13.7 gm/dL (11.4-16.0); Lymphocytes # (A) 0.2 k/uL (1.0-4.8); Lymphocytes % (A) 3 %; MCH 31.8 pg (25.0-35.0); MCHC 34.6 g/dL (31.0-37.0); Mean Platelet Volume 7.1; Monocytes # (A) 0.1 k/uL (0-1.0); Monocytes % (A) 2 %; Neutrophils # (A) 4.6 k/uL (1.3-7.7); Neutrophils % (A) 93 %; Platelet Count 153 k/uL (150-450); RDW 11.8 % (11.5-15.5)
[2018-08-10 14:40] LABS: Partial Thromboplastin Time 24.3 sec (22.0-30.0); Prothrombin Time 10.3 sec (9.0-12.0)
[2018-08-10 14:42] LABS: ALT 13 U/L (9-52); AST 15 U/L (14-36); Albumin 4.8 g/dL (3.5-5.0); Alkaline Phosphatase 62 U/L (38-126); Anion Gap 15 mmol/L; Blood Urea Nitrogen 10 mg/dL (7-17); Calcium 10.1 mg/dL (8.4-10.2); Carbon Dioxide 20 mmol/L (22-30); Chloride 109 mmol/L (98-107); Glucose 122 mg/dL (74-99); Magnesium 1.6 mg/dL (1.6-2.3); Potassium 3.8 mmol/L (3.5-5.1); Sodium 144 mmol/L (137-145); Total Bilirubin 0.3 mg/dL (0.2-1.3); Total Protein 7.5 g/dL (6.3-8.2)
--- NOTE | 2018-08-10 15:00 | XR ---
EXAMINATION TYPE: XR chest 2V DATE OF EXAM: 08/10/2018 COMPARISON: 07/10/2018 HISTORY: Difficulty breathing TECHNIQUE: Frontal and lateral views of the chest are obtained. FINDINGS: Heart and mediastinum are normal. Lungs are clear of infiltrate. There is no pleural effus ion. There are chest leads. Bony thorax is intact. IMPRESSION: No active cardiopulmonary disease. No change.
[2018-08-10] MEDS ORDERED: MORPHINE SULFATE 4 MG/ML SYRINGE IVP STA (15:25)
[2018-08-10] MEDS ORDERED: ALBUTEROL NEBULIZED 2.5 MG/3 ML INHALATION PRN (15:25)
[2018-08-10] MEDS ORDERED: SODIUM CHLORIDE 0.9% 500 ML 500 ML IV ONE (15:25)
[2018-08-10] MEDS: IPRATROPIUM-ALBUTEROL 3 ML NEB INHALATION SCH ×2 (16:08→20:22)
[2018-08-10] MEDS: IPRATROPIUM-ALBUTEROL 3 ML NEB INHALATION PRN (16:14)
[2018-08-10] MEDS: methylPREDNISolone SOD SUCCI 125 MG/2 ML VIAL IV SCH (18:01)
[2018-08-10] MEDS: MORPHINE SULFATE 4 MG/ML SYRINGE IVP PRN (20:22)
[2018-08-10] MEDS: DOCUSATE 100 MG CAP PO SCH (20:23)
[2018-08-10] MEDS: OSELTAMIVIR 75 MG CAP PO SCH (20:23)
[2018-08-10] MEDS: MONTELUKAST 10 MG TAB PO SCH (20:23)
[2018-08-10] MEDS: traZODone HCL 50 MG TAB PO SCH (20:24)
[2018-08-10] MEDS: PARoxetine 20 MG TAB PO SCH (20:24)
[2018-08-10] MEDS: PREGABALIN 75 MG CAP PO SCH (20:24)
[2018-08-10] MEDS ORDERED: CARBIDOPA-LEVODOPA 25-100 MG 1 EACH TAB PO SCH (22:00)
[2018-08-11] MEDS: MORPHINE SULFATE 4 MG/ML SYRINGE IVP PRN ×6 (00:16→20:27)
[2018-08-11] MEDS: methylPREDNISolone SOD SUCCI 125 MG/2 ML VIAL IV SCH ×2 (00:16→05:09)
--- NOTE | 2018-08-11 00:53 | P.HPIM ---
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 Patient does have severe persistent asthma and is on follow with pulmonary clinic. Patient has been taking 60 mg of oral prednisone last 4-5 days with minimal improvement. Patient is having worsening shortness of breath and muscle pains and generalized weakness. Patient came to ER for evaluation. Patient was found have influenza A tested positive. Denied any sick contacts at recent travel. No nausea vomiting or diarrhea. Denied headache or dizziness or lighthead edness. Patient was afebrile on admission. patient is tachycardic and tachypneic on admission.. Chest x-ray showed no acute cardiopulmonary process EKG showed sinus tachycardia. Lactic acid level II.4 Review of Systems Constitutional: Patient denied any subjective fevers or chills at home does have generalized weakness and malaise Abdomen: Patient denied nausea vomiting and diarrhea and abdominal pain. Cardiovascular: Patient denies any chest pain or short of breath no palpitations. Respiratory: Cough without sputum production. Patient does have shortness of breath, congestion and dyspnea. Neurologic: Patient denied any numbness or tingling headache. Musculoskeletal: Patient denies any complaints of joint swelling or deformity. Skin: Negative Psychiatric: Negative Endocrine: No heat or cold intolerance. No recent weight gain. Genitourinary: No dysuria or hematuria. All other 14 point ROS negative except the above Past Medical History Past Medical History: Asthma, Cancer, GERD/Reflux, Seizure Disorder, Thyroid Disorder Additional Past Medical History / Comment(s): TACHYCARDIA, peptic ulcers, anemia."HAS BEEN ON VENTILATOR IN PAST D/T SEVERE ASTHMA ATTACK, BULEMIA-STATES GETTING BETTER, CONSTIPATION. PAST ULCER, HERNIATED DIS,FX RT FOOT IN DEC AND RE-FX 05/15/17, cervical ca. Migraines, Neuro-degeneration with iron accumulation. History of Any Multi-Drug Resistant Organisms: None Reported, MRSA Date of last positivie culture/infection: 08/25/14 MDRO Source:: rt Groin Past Surgical History: Bariatric Surgery, Cholecystectomy, Orthopedic Surgery, T onsillectomy Additional Past Surgical History / Comment(s): Tilt table test, lap band 2007; NASAL FX REPAIR , ORIF LT ELBOW X2, PAIN PROCEDURES for migraines. Surgery on her cervix for cancer. Past Anesthesia/Blood Transfusion Reactions: Postoperative Nausea & Vomiting (PONV) Past Psychological History: Anxiety, Depression Additional Psychological History / Comment(s): PT SEES A DR FOR DEPRESSION ,ANXIETY,BULEMIA. PT LOST A SON TO BRAIN CANCER,LOST HER MOM TO PNE AND HER DAD HAS LIVER CANCER with liver surgery and is better. SHE CURRENTLY LIVES WITH HER 2 DAUGHTERS TAKES RX TO HELP HER SLEEP "HAS NIGHT TERRORS". PT DENIES ANY THOUGHTS OF HARMING SELF. Smoking Status: Never smoker Past Alcohol Use History: None Reported Past Drug Use History: None Reported Additional Drug Use History / Comment(s): Patient lives with 2 daughters at home - Past Family History Mother Family Medical History: Pneumonia Additional Family Medical History / Comment(s): Mother of pneumonia. Patient's son of brain cancer, last mother and father both liver cancer Son(s) Family Medical History: Cancer Additional Family Medical History / Comment(s): Son of brain cancer. Father Family Medical History: Cancer, Liver Disease Additional Family Medical History / Comment(s): Father has liver cancer with s urgery. He has hepatitis. Medications and Allergies Home Medications Medication Instructions Recorded Confirmed Type Montelukast [Singulair] 10 mg PO HS 09/30/13 08/10/18 History traZODone HCL [Desyrel] 100 mg PO HS 11/21/15 08/10/18 History PARoxetine [Paxil] 40 mg PO HS 08/27/17 08/10/18 History Methylphenidate HCl [Concerta] 36 mg PO DAILY 10/22/17 08/10/18 History Albuterol Inhaler [Ventolin Hfa 2 puff INHALATION RT-QID PRN 04/01/18 08/10/18 History Inhaler] Docusate [Colace] 100 mg PO HS 07/10/18 08/10/18 History Levalbuterol HCl [Xopenex 0.63 mg INHALATION RT-QID PRN 07/10/18 08/10/18 History Nebulized] Levothyroxine Sodium [Synthroid] 125 mcg PO DAILY 07/10/18 08/10/18 History Medroxyprogesterone Acetate 150 mg IM Q90D 07/10/18 08/10/18 History [Depo-Provera] Omalizumab [Xolair] 300 mg SQ Q30D 07/10/18 08/10/18 History Ondansetron [Zofran] 4 mg PO Q8HR PRN 07/10/18 08/10/18 History HYDROcodone/APAP 7.5-325MG [[place] 1 tab PO Q6HR PRN #120 tab 07/28/18 08/10/18 Rx 7.5-325] Pregabalin [Lyrica] 75 mg PO TID #90 cap 07/28/18 08/10/18 Rx tiZANidine [Zanaflex] 4 mg PO Q8HR PRN #90 tab 07/28/18 08/10/18 Rx Carbidopa-Levodopa 25-100 mg 1 tab PO TID 08/08/18 08/10/18 History [Sinemet 25-100] Cholecalciferol [Vitamin D3] 1,000 unit PO DAILY 08/10/18 08/10/18 History Multivitamin,Therapeutic [Thera] 1 tab PO DAILY 08/10/18 08/10/18 History Allergies Allergy/AdvReac Type Severity Reaction Status Date / Time No Known Allergies Allergy Verified 08/10/18 13:43 Physical Exam Vitals: Vital Signs Temp Pulse Pulse Pulse Resp BP BP 08/10/18 21:34 97.2 F L 96 18 101/62 08/10/18 18:11 97.1 F L 77 16 126/57 08/10/18 17:00 82 22 116/78 08/10/18 16:30 107 H 17 119/77 08/10/18 16:14 112 H 18 08/10/18 16:05 97.1 F L 77 16 126/57 08/10/18 16:00 109 H 25 H 99/79 08/10/18 15:30 129 H 17 99/79 08/10/18 15:00 134 H 15 122/93 08/10/18 14:30 140 H 59 H 139/90 08/10/18 14:26 131 H 08/10/18 14:00 125 H 15 139/90 08/10/18 13:55 121 H 08/10/18 13:48 22 08/10/18 13:21 98.5 F 132 H 25 H 130/79 Pulse Ox 08/10/18 21:34 94 L 08/10/18 18:11 96 08/10/18 17:00 94 L 08/10/18 16:30 95 08/10/18 16:14 08/10/18 16:05 96 08/10/18 16:00 95 08/10/18 15:30 95 08/10/18 15:00 99 08/10/18 14:30 97 08/10/18 14:26 08/10/18 14:00 98 08/10/18 13:55 08/10/18 13:48 08/10/18 13:21 98 Intake and Output 08/10/18 08/10/18 08/10/18 06:59 14:59 22:59 Other: Weight 74.843 kg PHYSICAL EXAMINATION: Patient is lying in the bed comfortably, no acute distress, awake alert and oriented.. HEENT: Normocephalic. Neck is supple. Pupils reactive. Nostrils clear. Oral c avity is moist. Ears reveal no drainage. Neck reveals no JVD, carotid bruits, or thyromegaly. CHEST EXAMINATION: Trachea is central. Symmetrical expansion. Bilateral diffuse wheezing and no crackles. Nonlabored breathing.. CARDIAC: Normal S1, S2 with no gallops. No murmurs ABDOMEN: Soft. Bowel sounds normal. No organomegaly. No abdominal bruits. Extremities: reveal no edema. No clubbing or cyanosis Neurologically awake, alert, oriented x3 with well-coordinated movements. No focal deficits noted Skin: No rash or skin lesions. Psychiatric: Coperative. Nonsuicidal Musculoskeletal: No joint swelling or deformity. Normal range of motion. Results CBC & Chem 7: 08/10/18 14:14 08/10/18 14:14 Labs: Abnormal Lab Results - Last 24 Hours (Table) 08/10/18 08/10/18 08/10/18 Range/Units 14:02 14:14 14:14 Lymphocytes # 0.2 L (1.0-4.8) k/uL Chloride 109 H (98-107) mmol/L Carbon Dioxide 20 L (22-30) mmol/L Glucose 122 H (74-99) mg/dL Plasma Lactic Acid Yordan (0.7-2.0) mmol/L Influenza Type A RNA Detected H (Not Detectd) 08/10/18 08/10/18 Range/Units 14:14 18:00 Lymphocytes # (1.0-4.8) k/uL Chloride (98-107) mmol/L Carbon Dioxide (22-30) mmol/L Glucose (74-99) mg/dL Plasma Lactic Acid Yordan 2.7 H* 2.3 H* (0.7-2.0) mmol/L Influenza Type A RNA (Not Detectd) Thrombosis Risk Factor Assmnt - DVT/VTE Prophylaxis DVT/VTE Prophylaxis: Pharmacologic Prophylaxis ordered Assessment and Plan Assessment: Acute influenza A infection Sepsis/sepsis secondary to above. Lactic acidosis. Acute asthma exacerbation/severe persistent asthma. 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 Continue with IV steroids and Duo Neb's. Continue with Tamiflu and follow closely. Continue with home medications including [place] 7.5 and muscle relaxants as needed per home dose. Continue to follow closely. Further recommendations based on the clinical course. Pulmonary will be consulted. Time with Patient: Greater than 30
[2018-08-11] MEDS: IPRATROPIUM-ALBUTEROL 3 ML NEB INHALATION PRN (04:37)
[2018-08-11] MEDS: SODIUM CHLORIDE 0.9% 1,000 ML IV SCH ×3 (05:09→15:25)
[2018-08-11] MEDS: LEVOTHYROXINE 125 MCG TAB PO SCH (05:13)
[2018-08-11] MEDS: IPRATROPIUM-ALBUTEROL 3 ML NEB INHALATION SCH ×4 (07:17→20:45)
[2018-08-11] MEDS: CARBIDOPA-LEVODOPA 25-100 MG 1 EACH TAB PO SCH ×3 (08:11→22:01)
[2018-08-11] MEDS: PREGABALIN 75 MG CAP PO SCH ×3 (08:12→22:01)
[2018-08-11] MEDS: CHOLECALCIFEROL 1,000 UNIT TAB PO SCH (08:12)
[2018-08-11] MEDS: OSELTAMIVIR 75 MG CAP PO SCH ×2 (08:12→20:30)
[2018-08-11] MEDS: METHYLPHENIDATE HCL 10 MG TAB PO SCH ×2 (08:12→12:19)
[2018-08-11 08:34] LABS: Anion Gap 8 mmol/L; Blood Urea Nitrogen 11 mg/dL (7-17); Calcium 9.3 mg/dL (8.4-10.2); Carbon Dioxide 23 mmol/L (22-30); Chloride 110 mmol/L (98-107); Glucose 127 mg/dL (74-99); Potassium 4.2 mmol/L (3.5-5.1); Sodium 141 mmol/L (137-145)
--- NOTE | 2018-08-11 09:57 | P.CNPUL ---
History of Present Illness Consult date: 08/11/18 Reason for consult: dyspnea, asthma Chief complaint: Asthma History of present illness: This is a 37-year-old female who presented to the emergency department complaining of shortness of breath and wheezing. The patient states this started 3 days ago. She denies any fevers or chills. She states she did have a bad headache and muscle pain. She states she is coughing and it is nonproductive. She did not get her influenza vaccine this year. She states she was under the care of a neurologist through [facility]. She was diagnosed with a neurodegenerative disorder which is rapidly progressive. She states she did not want to get any vaccines to complicate the picture. The patient is complaining of wheezing. She states she used her nebulizer treatments at home with no relief. She was found to be influenza A+. Chest x-ray shows no acute process. Review of Systems All systems: negative Past Medical History Past Medical History: Asthma, Cancer, GERD/Reflux, Seizure Disorder, Thyroid Disorder Additional Past Medical History / Comment(s): TACHYCARDIA, peptic ulcers, anemia."HAS BEEN ON VENTILATOR IN PAST D/T SEVERE ASTHMA ATTACK, BULEMIA-STATES GETTING BETTER, CONSTIPATION. PAST ULCER, HERNIATED DIS,FX RT FOOT IN DEC AND RE-FX 05/15/17, cervical ca. Migraines, Neuro-degeneration with iron accum ulation. History of Any Multi-Drug Resistant Organisms: None Reported, MRSA Date of last positivie culture/infection: 08/25/14 MDRO Source:: rt Groin Past Surgical History: Bariatric Surgery, Cholecystectomy, Orthopedic Surgery, Tonsillectomy Additional Past Surgical History / Comment(s): Tilt table test, lap band 2007; NASAL FX REPAIR , ORIF LT ELBOW X2, PAIN PROCEDURES for migraines. Surgery on her cervix for cancer. Past Anesthesia/Blood Transfusion Reactions: Postoperative Nausea & Vomiting (PONV) Past Psychological History: Anxiety, Depression Additional Psychological History / Comment(s): PT SEES A DR FOR DEPRESSION,ANXIETY,BULEMIA. PT LOST A SON TO BRAIN CANCER,LOST HER MOM TO PNE AN D HER DAD HAS LIVER CANCER with liver surgery and is better. SHE CURRENTLY LIVES WITH HER 2 DAUGHTERS TAKES RX TO HELP HER SLEEP "HAS NIGHT TERRORS". PT DENIES ANY THOUGHTS OF HARMING SELF. Smoking Status: Never smoker Past Alcohol Use History: None Reported Past Drug Use History: None Reported Additional Drug Use History / Comment(s): Patient lives with 2 daughters at home - Past Family History Mother Family Medical History: Pneumonia Additional Family Medical History / Comment(s): Mother of pneumonia. Dominick gutierrez's son of brain cancer, last mother and father both liver cancer Son(s) Family Medical History: Cancer Additional Family Medical History / Comment(s): Son of brain cancer. Father Family Medical History: Cancer, Liver Disease Additional Family Medical History / Comment(s): Father has liver cancer with surgery. He has hepatitis. Medications and Allergies Home Medications Medication Instructions Recorded Confirmed Type Montelukast [Singulair] 10 mg PO HS 09/30/13 08/10/18 History traZODone HCL [Desyrel] 100 mg PO HS 11/21/15 08/10/18 History PARoxetine [Paxil] 40 mg PO HS 08/27/17 08/10/18 History Methylphenidate HCl [Concerta] 36 mg PO DAILY 10/22/17 08/10/18 History Albuterol Inhaler [Ventolin Hfa 2 puff INHALATION RT-QID PRN 04/01/18 08/10/18 History Inhaler] Docusate [Colace] 100 mg PO HS 07/10/18 08/10/18 History Levalbuterol HCl [Xopenex 0.63 mg INHALATION RT-QID PRN 07/10/18 08/10/18 His tory Nebulized] Levothyroxine Sodium [Synthroid] 125 mcg PO DAILY 07/10/18 08/10/18 History Medroxyprogesterone Acetate 150 mg IM Q90D 07/10/18 08/10/18 History [Depo-Provera] Omalizumab [Xolair] 300 mg SQ Q30D 07/10/18 08/10/18 History Ondansetron [Zofran] 4 mg PO Q8HR PRN 07/10/18 08/10/18 History HYDROcodone/APAP 7.5-325MG [Graford 1 tab PO Q6HR PRN #120 tab 07/28/18 08/10/18 Rx 7.5-325] Pregabalin [Lyrica] 75 mg PO TID #90 cap 07/28/18 08/10/18 Rx tiZANidine [Zanaflex] 4 mg PO Q8HR PRN #90 tab 07/28/18 08/10/18 Rx Carbidopa-Levodopa 25-100 mg 1 tab PO TID 08/08/18 08/10/18 History [Sinemet 25-100] Cholecalciferol [Vitamin D3] 1,000 unit PO DAILY 08/10/18 08/10/18 History Multivitamin,Therapeutic [Thera] 1 tab PO DAILY 08/10/18 08/10/18 History Allergies Allergy/AdvReac Type Severity Reaction Status Date / Time No Known Allergies Allergy Verified 08/10/18 13:43 Physical Exam Osteopathic Statement: *. No significant issues noted on an osteopathic structural exam other than those noted in the History and Physical/Consult. Vitals: Vital Signs Temp Pulse Pulse Pulse Resp BP BP 08/11/18 07:17 08/11/18 05:16 97.1 F L 63 18 124/74 08/11/18 04:46 100 08/11/18 04:40 96 08/10/18 21:34 97.2 F L 96 18 101/62 08/10/18 18:11 97.1 F L 77 16 126/57 08/10/18 17:00 82 22 116/78 08/10/18 16:30 107 H 17 119/77 08/10/18 16:14 112 H 18 08/10/18 16:05 97.1 F L 77 16 126/57 08/10/18 16:00 109 H 25 H 99/79 08/10/18 15:30 129 H 17 99/79 08/10/18 15:00 134 H 15 122/93 08/10/18 14:30 140 H 59 H 139/90 08/10/18 14:26 131 H 08/10/18 14:00 125 H 15 139/90 08/10/18 13:55 121 H 08/10/18 13:48 22 08/10/18 13:21 98.5 F 132 H 25 H 130/79 Pulse Ox 08/11/18 07:17 98 08/11/18 05:16 96 08/11/18 04:46 08/11/18 04:40 08/10/18 21:34 94 L 08/10/18 18:11 96 08/10/18 17:00 94 L 08/10/18 16:30 95 08/10/18 16:14 08/10/18 16:05 96 08/10/18 16:00 95 08/10/18 15:30 95 08/10/18 15:00 99 08/10/18 14:30 97 08/10/18 14:26 08/10/18 14:00 98 08/10/18 13:55 08/10/18 13:48 08/10/18 13:21 98 Intake and Output 08/10/18 08/11/18 08/11/18 22:59 06:59 14:59 Other: Voiding Method Toilet Toilet # Voids 2 2 : Patient is alert and 3, no acute distress Cardiovascular regular rate and rhythm, S1/S2 Lungs: Bilateral expiratory wheezing Abdomen: Soft nontender nondistended positive bowel sounds Extremities: No edema Results - Laboratory Findings CBC and BMP: 08/10/18 14:14 08/11/18 07:52 PT/INR, D-dimer PT 10.3 sec (9.0-12.0) 08/10/18 14:14 INR 1.0 (<1.2) 08/10/18 14:14 Abnormal lab findings: Abnormal Labs 08/10/18 08/10/18 08/10/18 14:02 14:14 14:14 Lymphocytes # 0.2 L Chloride 109 H Carbon Dioxide 20 L Glucose 122 H Plasma Lactic Acid Yordan Influenza Type A RNA Detected H 08/10/18 08/10/18 08/11/18 14:14 18:00 07:52 Lymphocytes # Chloride 110 H Carbon Dioxide Glucose 127 H Plasma Lactic Acid Yordan 2.7 H* 2.3 H* Influenza Type A RNA - Diagnostic Findings Chest x-ray: report reviewed, image reviewed Assessment and Plan Assessment: Acute exacerbation of Severe persistent asthma Influenza A Diet controlled diabetes 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 We will continue to follow along.
[2018-08-11 11:03] VITALS: BMI 30.2
[2018-08-11] MEDS: MULTIVITAMINS, THERA 1 EACH TAB PO SCH (12:19)
[2018-08-11 13:06] LABS: T4, Free (Free Thyroxine) 2.63 ng/dL (0.78-2.19)
[2018-08-11] MEDS: guaiFENesin-Coden 100-10MG/5ML 10 ML CUP PO PRN ×2 (13:07→22:01)
[2018-08-11] MEDS: HEPARIN SODIUM,PORCINE 5,000 UNIT/ML 1 ML VIAL SQ SCH (15:25)
[2018-08-11] MEDS: methylPREDNISolone SOD SUCCI 40 MG/ML 1 ML VIAL IV SCH (15:25)
[2018-08-11] MEDS: MONTELUKAST 10 MG TAB PO SCH (20:29)
[2018-08-11] MEDS: DOCUSATE 100 MG CAP PO SCH (20:29)
[2018-08-11] MEDS: PARoxetine 20 MG TAB PO SCH (20:30)
[2018-08-11] MEDS: traZODone HCL 50 MG TAB PO SCH (20:30)
[2018-08-11] MEDS: BUDESONIDE 0.5 MG/2 ML NEBU INHALATION SCH (20:43)
[2018-08-12] MEDS: HEPARIN SODIUM,PORCINE 5,000 UNIT/ML 1 ML VIAL SQ SCH ×4 (00:27→23:28)
[2018-08-12] MEDS: MORPHINE SULFATE 4 MG/ML SYRINGE IVP PRN ×6 (00:27→23:28)
[2018-08-12] MEDS: methylPREDNISolone SOD SUCCI 40 MG/ML 1 ML VIAL IV SCH ×3 (00:27→17:39)
[2018-08-12] MEDS: LEVOTHYROXINE 125 MCG TAB PO SCH (05:44)
[2018-08-12] MEDS: SODIUM CHLORIDE 0.9% 1,000 ML IV SCH ×2 (05:47→12:39)
--- NOTE | 2018-08-12 05:58 | PN ---
PROGRESS NOTE DATE OF SERVICE: 08/11/2018 PRESENTING COMPLAINT: Short of breath, cough. INTERVAL HISTORY: The patient admitted with acute severe asthma exacerbation secondary to influenza A. Still got a cough, bringing up some sputum. Did tolerate some diet. Does feel weak, tired, run down. Patient has neurodegenerative disorder being followed by Dr. Grant, telephone #[phone]. Patient is having increasing cramping in the legs. Sitting on bed. Had a bowel movement. Has been up to the bathroom. REVIEW OF SYSTEMS: Done for constitutional, cardiovascular, GI, pulmonary; relevant findings as above. CURRENT MEDICATIONS: Current medications are reviewed that include DuoNeb, Pulmicort, Sinemet, Synthroid, Ritalin, IV Solu-Medrol, Tamiflu, Protonix, normal saline. PHYSICAL EXAMINATION: On examination, temperature 99, pulse 79, respiration 18, blood pressure 116/67, pulse ox 96% on room air. GENERAL APPEARANCE: Sitting up, awake. EYES: Pupils equal. Conjunctivae normal. NECK: JVD not raised. Mass not palpable. RESPIRATORY: Effort increased. LUNGS: Expiratory wheezing. CARDIOVASCULAR: First and second sounds normal. No edema. ABDOMEN: Soft, nontender. Liver and spleen not palpable. PSYCHIATRY: Alert and oriented x3. Mood and affect anxious appearing. INVESTIGATIONS: Potassium 4.2. BUN and creatinine normal. Lactic acid is 2. TSH less than 0.015 and free T4 is 2.63. ASSESSMENT: 1. Acute exacerbation of moderate persistent asthma secondary to acute influenza A pneumonitis. 2. Chronic neurodegenerative disorder being followed by Dr. Grant out of [facility]. 3. Peptic ulcer disease. 4. Chronic bulimia. 5. Chronic low back pain from herniated disc. 6. Hypothyroidism. 7. Depression, not otherwise specified. 8. History of hypoglycemia from surreptitious use of insulin. PLAN: Continue current medication and treatment plan. Physical therapy is also consulted. Care was discussed with the patient. Follow with Pulmonary. MMODL / IJN: [id number] /
[2018-08-12] MEDS: IPRATROPIUM-ALBUTEROL 3 ML NEB INHALATION SCH ×4 (08:32→19:22)
[2018-08-12] MEDS: BUDESONIDE 0.5 MG/2 ML NEBU INHALATION SCH ×2 (08:32→19:22)
[2018-08-12] MEDS: PREGABALIN 75 MG CAP PO SCH ×3 (09:23→21:36)
[2018-08-12] MEDS: MULTIVITAMINS, THERA 1 EACH TAB PO SCH (09:23)
[2018-08-12] MEDS: CHOLECALCIFEROL 1,000 UNIT TAB PO SCH (09:23)
[2018-08-12] MEDS: METHYLPHENIDATE HCL 10 MG TAB PO SCH ×2 (09:23→12:39)
[2018-08-12] MEDS: PANTOPRAZOLE 40 MG TABLET PO SCH (09:23)
[2018-08-12] MEDS: OSELTAMIVIR 75 MG CAP PO SCH ×2 (09:24→21:35)
[2018-08-12] MEDS: CARBIDOPA-LEVODOPA 25-100 MG 1 EACH TAB PO SCH ×3 (09:24→21:36)
--- NOTE | 2018-08-12 11:05 | P.PN ---
Subjective Progress Note Date: 08/12/18 08/12/2018: Patient seen and examined. Patient states she is still not feeling any better. She states she is having a lot of muscle spasms and is in a lot of pain. She complains of continued cough. She states that she just received a breathing treatment and still feels tight. Objective - Vital Signs Vital signs: Vital Signs Temp 97.6 F 08/12/18 04:26 Pulse 80 08/12/18 08:50 Resp 16 08/12/18 04:26 BP 134/85 08/12/18 04:26 Pulse Ox 97 08/12/18 04:26 Intake & Output 08/11/18 08/12/18 08/12/18 18:59 06:59 18:59 Intake Total 2880 2280 Balance 2880 2280 Weight 74.843 kg Intake: Intake, IV Titration 1700 1200 Amount Sodium Chloride 0.9% 1, 1200 1200 000 ml @ 100 mls/hr IV . Q10H KEY Rx#:[id number] Sodium Chloride 0.9% 500 500 ml 500 ml @ 999 mls/hr IV .Q31M ONE Rx#:[id number] Oral 1180 1080 Other: Voiding Method Toilet Toilet Toilet # Voids 4 3 - Exam Gen.: Patient is alert and 3, no acute distress Cardiovascular regular rate and rhythm, S1/S2 Lungs: Bilateral expiratory wheezing Abdomen: Soft nontender nondistended positive bowel sounds Extremities: No edema - Labs CBC & Chem 7: 08/10/18 14:14 08/11/18 07:52 Labs: Abnormal Lab Results - Last 24 Hours (Table) 08/11/18 Range/Units 07:52 Free T4 2.63 H (0.78-2.19) ng/dL Microbiology - Last 24 Hours (Table) 08/10/18 14:14 Blood Culture - Preliminary Blood No Growth after 24 hours Assessment and Plan Assessment: Acute exacerbation of Severe persistent asthma Influenza A Diet controlled diabetes 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
[2018-08-12] MEDS: guaiFENesin-Coden 100-10MG/5ML 10 ML CUP PO PRN ×2 (12:36→21:36)
[2018-08-12] MEDS: DOCUSATE 100 MG CAP PO SCH (21:35)
[2018-08-12] MEDS: PARoxetine 20 MG TAB PO SCH (21:35)
[2018-08-12] MEDS: MONTELUKAST 10 MG TAB PO SCH (21:35)
[2018-08-12] MEDS: traZODone HCL 50 MG TAB PO SCH (21:36)
[2018-08-12] MEDS ORDERED: BACLOFEN 10 MG TAB PO PRN (22:35)
[2018-08-12] MEDS: MAGNESIUM OXIDE 400 MG TAB PO SCH (23:28)
--- NOTE | 2018-08-13 05:17 | PN ---
PROGRESS NOTE DATE OF SERVICE: 08/12/2018 PRESENTING COMPLAINT: Cough. INTERVAL HISTORY: Patient admitted with acute severe asthma exacerbation secondary to influenza A. Cough is present. Sputum is minimal. Breathing is much improved. Tolerating a diet. Did not want to get physical therapy today. Per the nurse, patient did not want to be out of bed, but clinically she looks much better. REVIEW OF SYSTEMS: Done for constitutional, cardiovascular, GI, pulmonary; relevant findings as above. CURRENT MEDICATIONS: Current medications are reviewed include DuoNeb, Sinemet, Ritalin, IV Solu-Medrol, Tamiflu, Lyrica, normal saline. PHYSICAL EXAMINATION: On examination, temperature 97.8, pulse 72, respirations 16, blood pressure 145/85, pulse ox 96% on room air. GENERAL APPEARANCE: Sitting up, eating a meal. EYES: Pupils equal. Conjunctivae normal. NECK: JVD not raised. Mass not palpable. RESPIRATORY: Effort increased. LUNGS: Improved air entry. Decreased wheezing. CARDIOVASCULAR: First and second sounds normal. No edema. ABDOMEN: Soft, nontender. Liver and spleen not palpable. PSYCHIATRY: Alert and oriented x3. Mood and affect slightly anxious. INVESTIGATIONS: TSH and free T4 noted. ASSESSMENT: 1. Acute exacerbation of moderate persistent asthma secondary to acute influenza A pneumonitis with significant clinical improvement. 2. Chronic neurodegenerative disorder being followed by Dr. Grant out of [facility]. 3. Peptic ulcer disease. 4. Chronic bulimia. 5. Chronic low back pain from herniated disc. 6. Hypothyroidism. 7. Depression, not otherwise specified. 8. History of hypoglycemia from surreptitious use of insulin. 9. Lower extremity leg cramps. PLAN: Will add magnesium oxide. Will DC IV Solu-Medrol. Switch to p.o. prednisone in the morning. DC the IV fluids. Will use some baclofen p.r.n. Told the nurse to have the patient sit out of bed. Thyroid results were discussed with the patient. Patient should have repeat thyroid function test in about 2 to 3 weeks time. Looking at discharge tomorrow. MMODL / IJN: [id number] /
[2018-08-13] MEDS: MORPHINE SULFATE 4 MG/ML SYRINGE IVP PRN (05:43)
[2018-08-13] MEDS: LEVOTHYROXINE 125 MCG TAB PO SCH (05:43)
[2018-08-13] MEDS: IPRATROPIUM-ALBUTEROL 3 ML NEB INHALATION SCH ×3 (08:58→16:01)
[2018-08-13] MEDS: BUDESONIDE 0.5 MG/2 ML NEBU INHALATION SCH (08:58)
[2018-08-13] MEDS ORDERED: predniSONE 20 MG TAB PO SCH (09:00)
[2018-08-13] MEDS: MULTIVITAMINS, THERA 1 EACH TAB PO SCH (10:29)
[2018-08-13] MEDS: CHOLECALCIFEROL 1,000 UNIT TAB PO SCH (10:29)
[2018-08-13] MEDS: METHYLPHENIDATE HCL 10 MG TAB PO SCH ×2 (10:29→13:13)
[2018-08-13] MEDS: PANTOPRAZOLE 40 MG TABLET PO SCH (10:29)
[2018-08-13] MEDS: PREGABALIN 75 MG CAP PO SCH ×2 (10:29→16:39)
[2018-08-13] MEDS: MAGNESIUM OXIDE 400 MG TAB PO SCH ×2 (10:30→16:39)
[2018-08-13] MEDS: CARBIDOPA-LEVODOPA 25-100 MG 1 EACH TAB PO SCH ×3 (10:30→16:39)
[2018-08-13] MEDS: HEPARIN SODIUM,PORCINE 5,000 UNIT/ML 1 ML VIAL SQ SCH ×2 (10:31→16:38)
[2018-08-13] MEDS: OSELTAMIVIR 75 MG CAP PO SCH (10:31)
[2018-08-13] MEDS: HYDROcodone/APAP 7.5-325MG 1 EACH TAB PO PRN ×2 (10:33→16:39)
[2018-08-13 11:56] VITALS: BP 120/74; RESP 17; TEMP 97.6
[2018-08-13 12:42] VITALS: PULSE 82
--- NOTE | 2018-08-13 16:33 | P.PN ---
Subjective Progress Note Date: 08/13/18 08/13/2017: Patient seen and examined with her family at bedside. The patient states she is feeling better today. She is currently on room air. She is being discharged home. Objective - Vital Signs Vital signs: Vital Signs Temp 97.6 F 08/13/18 11:56 Pulse 82 08/13/18 12:38 Resp 17 08/13/18 11:56 BP 120/74 08/13/18 11:56 Pulse Ox 97 08/13/18 11:56 Intake & Output 08/12/18 08/13/18 08/13/18 18:59 06:59 18:59 Intake Total 800 1520 1140 Balance 800 1520 1140 Intake: Intake, IV Titration 800 400 600 Amount Sodium Chloride 0.9% 1, 800 400 600 000 ml @ 100 mls/hr IV . Q10H KEY Rx#:[id number] Oral 1120 540 Other: Voiding Method Toilet Toilet Toilet # Voids 2 1 - Exam Gen.: Patient is alert and 3, no acute distress Cardiovascular regular rate and rhythm, S1/S2 Lungs: Clear to auscultation bilaterally no wheezes rales or rhonchi Abdomen: Soft nontender nondistended positive bowel sounds Extremities: No edema - Labs CBC & Chem 7: 08/10/18 14:14 08/11/18 07:52 Labs: Microbiology - Last 24 Hours (Table) 08/10/18 14:14 Blood Culture - Preliminary Blood No Growth after 72 hours Assessment and Plan Assessment: Acute exacerbation of Severe persistent asthma Influenza A Diet controlled diabetes 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 Follow up with Dr. EVELYN Jalloh in 2-3 days
--- NOTE | 2018-08-14 00:03 | PN ---
PROGRESS NOTE DATE OF ADMISSION: August 10, 2018. DATE OF DISCHARGE: August 13, 2018. FINAL DIAGNOSES: 1. Acute exacerbation of moderate persistent asthma secondary to acute influenza A pneumonitis. 2. Chronic neuro degenerative disorder being followed by Dr. Rodríguez out of [facility]. 3. Peptic ulcer disease. 4. Chronic bulimia. 5. Chronic low back pain from herniated disc. 6. Hypothyroidism. 7. Depression, not otherwise specified. 8. History of hypoglycemia from surreptitious use of insulin. 9. Lower extremity leg cramps. HOSPITAL COURSE: This patient with asthma, presented with acute exacerbation secondary to influenza pneumonitis. Did well with bronchodilators, steroids, Tamiflu. The patient says she follows out of [facility] on a neuro degenerative disorder, doing much better today tolerating a diet. EXAMINATION: Afebrile. Pulse 72, respiration 18, blood pressure 120/74, pulse ox 97% on room air lungs fair entry. PSYCH: AO x3. INVESTIGATIONS: Potassium 4.2 BUN and creatinine is normal. CONSULTATION: Dr. Ammy Locke from Pulmonary. DISCHARGE MEDICATIONS: 1. Singulair 10 mg q.h.s. 2. Desyrel 100 mg q.h.s. 3. Paxil 40 mg q.h.s. 4. Concerta 36 mg p.o. daily. 5. Ventolin HFA 2 puffs q.i.d. p.r.n. 6. Colace 100 mg q.h.s. 7. Xopenex 0.63 mg inhalation q.i.d. p.r.n. 8. Synthroid 125 mcg p.o. daily. 9. Depo-Provera 150 mg IM every 90 days. 10.Colace 300 mg subcu every 30 days. 11.Zofran 4 mg q.8h p.r.n. 12.Rockmart 7.5 one tab q.6h p.r.n. 13.Lyrica 75 mg t.i.d. 14.Zanaflex 4 mg q.8h p.r.n. 15.Sinemet 25/100 one tablet p.o. t.i.d. 16.Vitamin D3 1000 units p.o. daily. 17.Multivitamin 1 tablet p.o. daily. 18.Tamiflu 75 mg q.12 10 capsules. 19.Prednisone rapid taper. FOLLOWUP: Follow up with Ramirez Gonzalez on August 27, 2018, follow up with Dr. Yolanda Jalloh on August 22, 2018. The patient also to follow up with a neurologist at [facility]. Copy to Dr. Gonzalez's. JEANNINE / MONTY: [id number] /
== END 2018-08-13 16:55 | disposition home health service (06) | DRG 202 ==
LOC: EC 13:09 → 3NMEDONC 15:37
PROVIDERS: ADMIT Hospitalist; ATTEND Hospitalist
DX: J45.41 Moderate persistent asthma with (acute) exacerbation (principal); J10.00 Influenza due to other identified influenza virus with unspecified type of pneumonia; E87.2 Acidosis; F50.2 Bulimia nervosa; E03.9 Hypothyroidism, unspecified; E11.9 Type 2 diabetes mellitus without complications; F32.9 Major depressive disorder, single episode, unspecified; F41.9 Anxiety disorder, unspecified; F51.4 Sleep terrors [night terrors]; G20 Parkinson's disease; G40.909 Epilepsy, unspecified, not intractable, without status epilepticus; G43.909 Migraine, unspecified, not intractable, without status migrainosus; G89.29 Other chronic pain; K21.9 Gastro-esophageal reflux disease without esophagitis; Z87.11 Personal history of peptic ulcer disease; M81.8 Other osteoporosis without current pathological fracture; T38.0X5A Adverse effect of glucocorticoids and synthetic analogues, initial encounter; Z79.52 Long term (current) use of systemic steroids; Z79.890 Hormone replacement therapy; Z79.899 Other long term (current) drug therapy; Z80.0 Family history of malignant neoplasm of digestive organs; Z85.41 Personal history of malignant neoplasm of cervix uteri; E83.118 Other hemochromatosis; Z98.84 Bariatric surgery status; M54.5 Low back pain; K59.00 Constipation, unspecified; Z90.49 Acquired absence of other specified parts of digestive tract
CPT/HCPCS: 36415; 71046; 80048; 80053; 83605; 83735; 84439; 84443; 84484; 85025; 85610; 85730; 87040; 87502; 93005; 94640; 94760; 96361; 96374; 96375; 99291

== ENCOUNTER → 2018-08-20 | Outpatient (CLI) | payer OTHER ==
[2018-08-20 12:52] LABS: Basophils % (A) 0 %; Eosinophils # (A) 0.1 k/uL (0-0.7); Eosinophils % (A) 1 %; HCT 39.7 % (34.0-46.0); HGB 13.2 gm/dL (11.4-16.0); Lymphocytes # (A) 1.1 k/uL (1.0-4.8); Lymphocytes % (A) 7 %; MCH 31.5 pg (25.0-35.0); MCHC 33.2 g/dL (31.0-37.0); MCV 94.9 fL (80.0-100.0); Mean Platelet Volume 7.2; Monocytes # (A) 0.4 k/uL (0-1.0); Monocytes % (A) 3 %; Neutrophils # (A) 14.4 k/uL (1.3-7.7); Neutrophils % (A) 89 %; RBC 4.18 m/uL (3.80-5.40); RDW 12.8 % (11.5-15.5); WBC 16.1 k/uL (3.8-10.6)
[2018-08-20 12:59] LABS: Platelet Count 361 k/uL (150-450)
[2018-08-20 18:52] LABS: Albumin 4.5 g/dL (3.80-4.90); Albumin/Globulin Ratio 2.25 (1.60-3.17); Calcium 9.4 mg/dL (8.7-10.3); Potassium 3.7 mmol/L (3.5-5.5); Total Bilirubin 0.5 mg/dL (0.2-1.2); Total Protein 6.5 g/dL (6.2-8.2)
[2018-08-20 20:26] LABS: Anion Gap 16.2 mmol/L (4.00-12.00); Carbon Dioxide 22.8 mmol/L (21.6-31.8)
== END | disposition home or self-care (01) ==
LOC: LABWHC1 12:10
PROVIDERS: ATTEND Family Medicine
DX: E03.9 Hypothyroidism, unspecified (principal)
CPT/HCPCS: 36415; 80053; 84439; 84443; 84481; 85025

== ENCOUNTER 2018-08-30 20:14 | Emergency (ER) | payer OTHER ==
[2018-08-30] MEDS: SODIUM CHLORIDE 0.9% 500 ML 500 ML IV SCH ×3 (22:02→23:13)
[2018-08-30 22:08] LABS: Basophils % (A) 0 %; Eosinophils # (A) 0.1 k/uL (0-0.7); Eosinophils % (A) 1 %; HCT 37.1 % (34.0-46.0); HGB 13.2 gm/dL (11.4-16.0); Lymphocytes # (A) 2.1 k/uL (1.0-4.8); Lymphocytes % (A) 23 %; MCH 30.9 pg (25.0-35.0); MCHC 35.5 g/dL (31.0-37.0); Mean Platelet Volume 8.9; Monocytes # (A) 0.6 k/uL (0-1.0); Monocytes % (A) 6 %; Neutrophils # (A) 6.2 k/uL (1.3-7.7); Neutrophils % (A) 68 %; Platelet Count 301 k/uL (150-450); RBC 4.26 m/uL (3.80-5.40); RDW 15.4 % (11.5-15.5); WBC 9.1 k/uL (3.8-10.6)
[2018-08-30 22:10] LABS: Bacteria,Urine Moderate /hpf; Mucus,Urine Many /hpf; Squamous Epithelial Cell,Urine 6 /hpf (0-4)
[2018-08-30 22:12] LABS: Appearance,Urine Bloody (Clear); Color,Urine Red
[2018-08-30 22:13] LABS: RBC,Urine >182 /hpf (0-5); WBC,Urine >182 /hpf (0-5)
[2018-08-30 22:17] LABS: Albumin 4.1 g/dL (3.5-5.0); Calcium 9.9 mg/dL (8.4-10.2); Potassium 4.6 mmol/L (3.5-5.1); Total Bilirubin 0.6 mg/dL (0.2-1.3); Total Protein 6.9 g/dL (6.3-8.2)
[2018-08-30 22:23] LABS: Partial Thromboplastin Time 23.1 sec (22.0-30.0); Prothrombin Time 10.4 sec (9.0-12.0)
[2018-08-30] MEDS ORDERED: ONDANSETRON 4 MG/2 ML VIAL IVP STA (22:58)
[2018-08-30] MEDS ORDERED: cefTRIAXone IN SWFI 1,000 MG/10 ML SYRINGE IVP STA (23:09)
--- NOTE | 2018-08-30 23:15 | ED ---
Fever HPI - General Chief Complaint: Fever Stated Complaint: Fever Time Seen by Provider: 08/30/18 21:00 Source: patient Mode of arrival: ambulatory Limitations: no limitations - History of Present Illness Initial Comments: Josephine is a 37-year-old female very complicated past medical history who recently had left-sided ureteral stent placement for stones. She reports she's had stent placement in the past for stones. She is scheduled to follow-up with her urologist out of [facility] on Saturday. She reports that for the past couple days she's had fevers, chills, nausea and generalized malaise. Patient reports that she has persistent hematuria since the stent placement which has not been improving. She is presents concerned that she may have a urinary infection. - Related Data Home Medications Medication Instructions Recorded Confirmed Montelukast [Singulair] 10 mg PO HS 09/30/13 08/30/18 traZODone HCL [Desyrel] 100 mg PO HS 11/21/15 08/30/18 PARoxetine [Paxil] 40 mg PO HS 08/27/17 08/30/18 Methylphenidate HCl [Concerta] 36 mg PO DAILY 10/22/17 08/30/18 Albuterol Inhaler [Ventolin Hfa 2 puff INHALATION RT-QID PRN 04/01/18 08/30/18 Inhaler] Docusate [Colace] 100 mg PO HS 07/10/18 08/30/18 Levalbuterol HCl [Xopenex 0.63 mg INHALATION RT-QID PRN 07/10/18 08/30/18 Nebulized] Levothyroxine Sodium [Synthroid] 125 mcg PO DAILY 07/10/18 08/30/18 Medroxyprogesterone Acetate 150 mg IM Q90D 07/10/18 08/30/18 [Depo-Provera] Omalizumab [Xolair] 300 mg SQ Q30D 07/10/18 08/30/18 Ondansetron [Zofran] 4 mg PO Q8HR PRN 07/10/18 08/30/18 Carbidopa-Levodopa 25-100 mg 1 tab PO TID 08/08/18 08/30/18 [Sinemet 25-100 mg] Cholecalciferol [Vitamin D3] 1,000 unit PO DAILY 08/10/18 08/30/18 Multivitamin,Therapeutic [Thera] 1 tab PO DAILY 08/10/18 08/30/18 Previous Rx's Medication Instructions Recorded HYDROcodone/APAP 7.5-325MG [[place] 1 tab PO Q6HR PRN #120 tab 07/28/18 7.5-325] Pregabalin [Lyrica] 75 mg PO TID #90 cap 07/28/18 tiZANidine [Zanaflex] 4 mg PO Q8HR PRN #90 tab 07/28/18 Sulfamethox-Tmp 800-160Mg [Bactrim 1 tab PO Q12HR #14 tab 08/31/18 DS 800-160 mg] Allergies Allergy/AdvReac Type Severity Reaction Status Date / Time No Known Allergies Allergy Verified 08/30/18 20:44 Review of Systems ROS Statement: Those systems with pertinent positive or pertinent negative responses have been documented in the HPI. ROS Other: All systems not noted in ROS Statement are negative. 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 PAST ULCER, HERNIATED DIS,FX RT FOOT IN DEC AND RE-FX 05/15/17, cervical ca. Migraines, Neuro-degeneration with iron accumulation. History of Any Multi-Drug Resistant Organisms: None Reported, MRSA Date of last positivie culture/infection: 08/25/14 MDRO Source:: rt Groin Past Surgical History: Bariatric Surgery, Cholecystectomy, Orthopedic Surgery, Tonsillectomy Additional Past Surgical History / Comment(s): Tilt table test, lap band 2007; NASAL FX REPAIR , ORIF LT ELBOW X2, PAIN PROCEDURES for migraines. Surgery on her cervix for cancer. Past Anesthesia/Blood Transfusion Reactions: Postoperative Nausea & Vomiting (PONV) Past Psychological History: Anxiety, Depression Smoking Status: Never smoker Past Alcohol Use History: None Reported Past Drug Use History: None Reported - Past Family History Mother Family Medical History: Pneumonia Additional Family Medical History / Comment(s): Mother of pneumonia. Patient's son of brain cancer, last mother and father both liver cancer Son(s) Family Medical History: Cancer Additional Family Medical History / Comment(s): Son of brain cancer. Father Family Medical History: Cancer, Liver Disease Additional Family Medical History / Comment(s): Father has liver cancer with surgery. He has hepatitis. General Exam - General Exam Comments Initial Comments: Physical Exam GENERAL: Patient is well-developed and well-nourished. Patient is nontoxic and well-hydrated and is in no distress. HENT: Normocephalic, Atraumatic. EYES: PERRL, EOMI PULMONARY: Unlabored respirations. No audible rales rhonchi or wheezing was noted. CARDIOVASCULAR: Tachycardic, regular, warm and well perfused extremities ABDOMEN: Soft and nontender with normal bowel sounds. SKIN: Skin is clear with no lesions or rashes and otherwise unremarkable. : Deferred NEUROLOGIC: Patient is alert and oriented x3. Moving all extremities spontaneously MUSCULOSKELETAL: Normal extremities with adequate strength and full range of motion. No lower extremity swelling or edema. No calf tenderness. PSYCHIATRIC: Normal psychiatric evaluation. Limitations: no limitations Limitations: no limitations Course Vital Signs 08/30/18 08/30/18 20:27 23:17 Temperature 98.3 F 98.5 F Pulse Rate 120 H 101 H Respiratory 18 16 Rate Blood Pressure 118/83 114/79 O2 Sat by Pulse 98 100 Oximetry Medical Decision Making - Medical Decision Making Patient was seen and evaluated history is obtained from the patient Vital signs were reviewed patient was noted to be tachycardic but afebrile upon arrival A sepsis workup was initiated Labs with no leukocytosis and no elevated lactic acid urinalysis is grossly hematuria with greater than 182 red and white blood cells unable to further assess will be sent for culture Rocephin ordered for urinary tract infection Heart rate improved she remained afebrile she reports feeling much better after IV fluids I discussed with the patient that because her urologist is at [facility] she would be transferred there if she required inpatient care. Patient prefer discharge home. At this time patient remains stable she has received Rocephin she'll be discharged with oral Bactrim. All questions were pertaining care were answered return parameters were discussed the patient was discharged home in stable condition. - Lab Data Result diagrams: 08/30/18 21:56 08/30/18 21:56 Lab Results 08/30/18 08/30/18 08/30/18 Range/Units 21:48 21:56 21:56 WBC 9.1 (3.8-10.6) k/uL RBC 4.26 (3.80-5.40) m/uL Hgb 13.2 (11.4-16.0) gm/dL Hct 37.1 (34.0-46.0) % MCV 87.0 D (80.0-100.0) fL MCH 30.9 (25.0-35.0) pg MCHC 35.5 (31.0-37.0) g/dL RDW 15.4 (11.5-15.5) % Plt Count 301 (150-450) k/uL Neutrophils % 68 % Lymphocytes % 23 % Monocytes % 6 % Eosinophils % 1 % Basophils % 0 % Neutrophils # 6.2 (1.3-7.7) k/uL Lymphocytes # 2.1 (1.0-4.8) k/uL Monocytes # 0.6 (0-1.0) k/uL Eosinophils # 0.1 (0-0.7) k/uL Basophils # 0.0 (0-0.2) k/uL PT (9.0-12.0) sec INR (<1.2) APTT (22.0-30.0) sec Sodium 139 (137-145) mmol/L Potassium 4.6 (3.5-5.1) mmol/L Chloride 104 (98-107) mmol/L Carbon Dioxide 26 (22-30) mmol/L Anion Gap 9 mmol/L BUN 24 H (7-17) mg/dL Creatinine 1.16 H (0.52-1.04) mg/dL Est GFR (CKD-EPI)AfAm 70 (>60 ml/min/1.73 sqM) Est GFR (CKD-EPI)NonAf 61 (>60 ml/min/1.73 sqM) Glucose 99 (74-99) mg/dL Plasma Lactic Acid Yordan (0.7-2.0) mmol/L Calcium 9.9 (8.4-10.2) mg/dL Total Bilirubin 0.6 (0.2-1.3) mg/dL AST 17 (14-36) U/L ALT 28 (9-52) U/L Alkaline Phosphatase 78 (38-126) U/L Total Protein 6.9 (6.3-8.2) g/dL Albumin 4.1 (3.5-5.0) g/dL Urine Color Red Urine Appearance Bloody H (Clear) Urine RBC >182 H (0-5) /hpf Urine WBC >182 H (0-5) /hpf Ur Squamous Epith Cells 6 H (0-4) /hpf Urine Bacteria Moderate H (None) /hpf Urine Mucus Many H (None) /hpf 08/30/18 08/30/18 Range/Units 21:56 21:56 WBC (3.8-10.6) k/uL RBC (3.80-5.40) m/uL Hgb (11.4-16.0) gm/dL Hct (34.0-46.0) % MCV (80.0-100.0) fL MCH (25.0-35.0) pg MCHC (31.0-37.0) g/dL RDW (11.5-15.5) % Plt Count (150-450) k/uL Neutrophils % % Lymphocytes % % Monocytes % % Eosinophils % % Basophils % % Neutrophils # (1.3-7.7) k/uL Lymphocytes # (1.0-4.8) k/uL Monocytes # (0-1.0) k/uL Eosinophils # (0-0.7) k/uL Basophils # (0-0.2) k/uL PT 10.4 (9.0-12.0) sec INR 1.0 (<1.2) APTT 23.1 (22.0-30.0) sec Sodium (137-145) mmol/L Potassium (3.5-5.1) mmol/L Chloride (98-107) mmol/L Carbon Dioxide (22-30) mmol/L Anion Gap mmol/L BUN (7-17) mg/dL Creatinine (0.52-1.04) mg/dL Est GFR (CKD-EPI)AfAm (>60 ml/min/1.73 sqM) Est GFR (CKD-EPI)NonAf (>60 ml/min/1.73 sqM) Glucose (74-99) mg/dL Plasma Lactic Acid Yordan 1.0 (0.7-2.0) mmol/L Calcium (8.4-10.2) mg/dL Total Bilirubin (0.2-1.3) mg/dL AST (14-36) U/L ALT (9-52) U/L Alkaline Phosphatase (38-126) U/L Total Protein (6.3-8.2) g/dL Albumin (3.5-5.0) g/dL Urine Color Urine Appearance (Clear) Urine RBC (0-5) /hpf Urine WBC (0-5) /hpf Ur Squamous Epith Cells (0-4) /hpf Urine Bacteria (None) /hpf Urine Mucus (None) /hpf - EKG Data -: EKG Interpreted by Me EKG Comments: EKG obtained at 2116 for evaluation of tachycardia in the setting of likely sepsis EKG with a rate of 103, rhythm is sinus tachycardia, there is a normal axis there are normal intervals, NC 124, QR 68, QTC 416 there are no acute ST elevations or depressions or evidence of acute ischemia or infarction Disposition Clinical Impression: UTI (urinary tract infection) Disposition: HOME SELF-CARE Condition: Stable Instructions (If sedation given, give patient instructions): Urinary Tract I nfection in Women (ED) Prescriptions: Sulfamethox-Tmp 800-160Mg [Bactrim DS 800-160 mg] 1 tab PO Q12HR #14 tab Is patient prescribed a controlled substance at d/c from ED?: No Referrals: Slade Gonzalez MD [Primary Care Provider] - 1-2 days
[2018-08-30 23:19] VITALS: RESP 16
[2018-08-31 01:35] VITALS: BP 110/69; PULSE 98; TEMP 98.8
== END 2018-08-31 01:37 | disposition home or self-care (01) ==
LOC: EC 20:14
DX: N39.0 Urinary tract infection, site not specified (principal); R00.0 Tachycardia, unspecified; J45.909 Unspecified asthma, uncomplicated; G40.909 Epilepsy, unspecified, not intractable, without status epilepticus; E07.9 Disorder of thyroid, unspecified; F41.9 Anxiety disorder, unspecified; F32.9 Major depressive disorder, single episode, unspecified; Z79.899 Other long term (current) drug therapy; Z98.890 Other specified postprocedural states; Z98.84 Bariatric surgery status; Z85.41 Personal history of malignant neoplasm of cervix uteri
CPT/HCPCS: 36415; 93005; 80053; 83605; 85025; 85610; 85730; 81001; 87040; 87086; 99283; 96374; 96375; 96361; J2405; J0696

== ENCOUNTER 2018-09-09 06:18 | Day surgery (SDC) | payer OTHER ==
[2018-09-04 09:37] VITALS: BMI 29.8
[2018-09-09] MEDS ORDERED: LACTATED RINGERS 1,000 ML IV SCH (06:57)
[2018-09-09 07:04] VITALS: TEMP 97.8
[2018-09-09] MEDS ORDERED: LACTATED RINGERS 1,000 ML IV ONE (07:05)
[2018-09-09] MEDS ORDERED: LIDOCAINE 1% 20 ML VIAL (10MG/ML) FOR IV START INTRADERMA ONE (07:05)
--- NOTE | 2018-09-09 07:51 | P.PCN ---
Date of Procedure: 09/09/18 Procedure(s) Performed: PREOPERATIVE DIAGNOSIS: Lumbar spondylosis without myelopathy and facet arthropathy POSTOPERATIVE DIAGNOSIS: Lumbar spondylosis without myelopathy and facet arthropathy PROCEDURES: Left Radiofrequency thermocoagulation, L3-L4, L4-L5, and L5-S1 medial branch, with fluoroscopic guidance. ANESTHESIA: moderate sedation with versed 2 mg and fentanyl 100 mcg . EBL: Minimal PROCEDURE INDICATION: The patient with low back pain secondary to lumbar arthropathy who had more than 50% relief of pain with previous diagnostic lumbar medial branch block with bupivacaine. Patient presents for left lumbar MB RFA today; no use of blood thinners. Patient has had pain shooting down her left leg for past two months prior to procedure today. PROCEDURE DESCRIPTION / TECHNIQUE: The patient was seen and identified in the preoperative area. Risks, benefits, complications, and alternatives were discussed with the patient (including but not limited to incomplete pain relief, bleeding, infection, nerve damage, and allergies to medications), the patient agreed to proceed with the procedure and signed the consent after all questions were answered. Patient was taken to the OR and time out was completed to verify proper patient, position, laterality of pain, and allergies. Pt was placed in the prone position. IV was started. Vital signs remained stable throughout the procedure. A pillow was placed under the patients chest to decrease lordosis. The lumbosacral area was prepped and draped in the usual sterile fashion. Vital signs were closely monitored during the procedure. Conscious sedation was used during the procedure to decrease patients anxiety. Using AP and then oblique fluoroscopy, the eye of the Willie dog corresponding to the connection between the superior and transverse articular processes of left L3, L4, L5 and top of the sacrum were identified, marked, and localized with 1% lidocaine. Subsequently, a 18 gauge, 100-mm radiofrequency cannula with a 10-mm active tip was advanced guided by fluoroscopy to each of the eyes of the Willie dog at the levels of all four medial branches. Each site then underwent sensory testing at 50 Hz and 0 to 1 volt and motor testing at 2 Hz and 0 to 3 volt with local stimulation, but no radicular symptoms down the legs. Thereafter all four medial branch sites underwent radiofrequency thermocoagulation at 80 degrees Celsius for 90 seconds after injecting 0.5 ml of PF lidocaine 1%. After thermocoagulation, 1 ml of the block solution containing Depo-Medrol 40 mg and 2 mL of preservative-free normal saline was injected at all four medial branch levels after negative aspiration of CSF and blood and with no paresthesias. Cannulas were retracted while injecting lidocaine 1% until the needles were removed. At the end of the procedure, the skin was cleansed and bandages were applied. COMPLICATIONS: No acute complications. DISPOSITION / PLANS: The patient was placed in a supine position and transferred to the recovery area in a stable condition for observation and was discharged from the recovery room after meeting discharge criteria. Home discharge instructions given to the patient by the staff. The patient was reexamined prior to discharge and there were no issues. The patient will schedule a follow up in the clinic in 4-6 weeks.
[2018-09-09 07:57] VITALS: RESP 16
[2018-09-09] MEDS ORDERED: IV FLUID CONTINUATION 1,000 ML IV ONE (08:04)
[2018-09-09 08:12] VITALS: BP 120/81; PULSE 84
--- NOTE | 2018-09-09 09:03 | FL ---
EXAMINATION TYPE: FL guided pain mgmt statistic DATE OF EXAM: 09/09/2018 HISTORY: Flouroscopy time 8 seconds of fluoroscopy provided. IMPRESSION: 1. Fluoroscopy time.
== END 2018-09-09 08:19 | disposition home or self-care (01) ==
LOC: ORPAIN 06:18
PROVIDERS: ATTEND Specialist
DX: M47.816 Spondylosis without myelopathy or radiculopathy, lumbar region (principal); J45.909 Unspecified asthma, uncomplicated; Z88.8 Allergy status to other drugs, medicaments and biological substances
CPT/HCPCS: 81025; 64635; 64636 ×2; J2250; J1030; J3010; 99152

== ENCOUNTER → 2018-09-22 | Outpatient (CLI) | payer OTHER ==
[2018-09-22 14:04] VITALS: BP 137/96; PULSE 102; RESP 18
--- NOTE | 2018-09-22 14:37 | P.PN ---
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 The patient complains of increasing pain in her neck and shoulders. She also has increasing tightness and weakness in her lower extremit ies and she is scheduled to have some Botox injection for the tightness in her legs as she states. She still uses 4 pills a day of [place] 7.5 mg plus Lyrica and Zanaflex. Today, pt denies new-onset weakness, bowel/bladder incontinence, or any other signs or symptoms of cauda equina syndrome. There are no signs of acute intoxication, and no indications of medication diversion or overuse. In addition to above, 13-point review of systems is also negative for chest pain, shortness of breath, changes in vision, changes in hearing, new onset weakness, abdominal pain, diarrhea, extreme fatigue, malaise, fever, skin changes, homicidal or suicidal ideation, or bowel or bladder incontinence. Vital Signs: Reviewed in EMR Gen: AAOx3, NAD HEENT: PERRLA,hearing grossly normal Pulm: resp unlabored,CTA Heart:S1,S2, No Mur Mobile face Neck: supple, trachea midline Tenderness in the paravertebral musculature: Tenderness in the cervical paravertebral musculature and the trapezius muscle bilaterally Neuro: CN II-XII grossly intact, Imaging: Reviewed in EMR/chart Assessment: Neuro degenerative brain disorder Severe asthma with chronic treatment with the steroids Lumbar spondylosis Opioid dependence Plan: 1. Explanation: Opioid and psychological risk scores were reviewed. Diagnoses, prognoses, and multiple treatment options including but not limited to physical therapy, interventional therapies, adjuvant medical therapies, narcotic medication therapies, and surgery were discussed with the patient and all questions were answered to the patient's satisfaction. 2. Opioid agreement: Signed with the patient and the patient is warned not to use opioids while driving or before driving and not to combine opioids with benzodiazepines or alcohol. 3. Counseling: The patient was counseled extensively on SMOKING CESSATION, BODY MASS INDEX, EXERCISE. Specifically, the patient was instructed regarding the importance of smoking cessation, obesity, and exercise in the context of both chronic pain and overall health. 4. Procedures: Schedule for trigger point injection in the cervical paravertebral musculature and in the trapezius muscles bilaterally 5. Consultations: None 6. Investigations: None 7. Medications: Continue [place]point 7.5 mg 4 times a day if needed for pain and the goal will be to wean her down to 3 pills a day on her next visit. Continue Lyrica 75 mg 3 times a day and I will increase Zanaflex to 6 mg 3 times a day however the patient will stop using Zanaflex after she gets her Botox injection. I am worried about over sedation with this patient and the spine going to give her prescription for intranasal naloxone if needed emergently 8. Disposition: Return to clinic in 8 weeks' and to the above-mentioned procedure as soon as possible 9. Maps were reviewed and were appropriate. PQRS measures: 1-Patient's medications are documented in the chart. 2-Tobacco use is negative, counseling given 3-Patient has not had a pneumococcal vaccine. 4-Advanced care planning discussed, patient unable to give 5-Opioid contract signed with the patient. 6-Pain positive, follow-up visit or procedure scheduled 7-Patient's blood pressure measured and documented above normal limits. The patient will follow up with his primary care physician. 8-Patient's weight was measured, and body mass index ABOVE the normal limits, and counseling was done. Patient instructed to follow up with PCP. 9-Patient WAS NOT identified as an unhealthy alcohol user. Controlled Substance Measures Is patient prescribed a controlled substance at discharge?: Yes When asked, does pt state using other controlled substances?: No If prescribed controlled substance>3 days was MAPS reviewed?: Yes If Rx opioid, was Start Talking consent form obtained?: Yes If opioid is for acute pain is fill amount 7 days or less?: No Was information provided regarding opioid addiction?: Yes Objective - Vital Signs Vital signs: Vital Signs Temp Pulse 102 H 09/22/18 13:54 Resp 18 09/22/18 13:54 BP 137/96 09/22/18 13:54 Pulse Ox 99 09/22/18 13:54 Intake & Output 09/21/18 09/22/18 09/22/18 18:59 06:59 18:59 Weight 74.843 kg
== END | disposition home or self-care (01) ==
LOC: PNWHC3 13:40
PROVIDERS: ATTEND Anesthesiology
DX: G31.9 Degenerative disease of nervous system, unspecified (principal); J45.909 Unspecified asthma, uncomplicated; M47.816 Spondylosis without myelopathy or radiculopathy, lumbar region; F11.20 Opioid dependence, uncomplicated; Z79.899 Other long term (current) drug therapy
CPT/HCPCS: 99211

== ENCOUNTER 2018-10-06 06:47 | Day surgery (SDC) | payer OTHER ==
[2018-10-03 08:45] VITALS: BMI 30.2
[2018-10-06] MEDS ORDERED: LACTATED RINGERS 1,000 ML IV SCH (07:00)
[2018-10-06 07:15] VITALS: RESP 16; TEMP 97.1
[2018-10-06 07:32] VITALS: BP 104/69; PULSE 102
--- NOTE | 2018-10-06 07:42 | P.PCN ---
Date of Procedure: 10/06/18 Description of Procedure: Preoperative Diagnosis: myofascial pain syndrome of cervical spine Postoperative diagnosis: Same Anesthesia: Local Surgeon: Esequiel Vila Estimated blood loss: 0 ml Indications for procedure: This is a 37-year-old patient with myofascial pain and palpable trigger points in cervical paraspinals, trapezius, rhomboid muscles bilateral. The patient consents for an injection after an explanation of risks including but not limited to bleeding and infection, benefits, and alternatives and the patient has signed a consent form indicating understanding of all of them. Description of procedure: After informed consent was obtained the patient's back was sterilely prepped in the usual fashion with ChloraPrep. Bilateral cervical paraspinal, trapezius, rhomboid muscles were identified. A solution consisting of 5 ML's of 1% lidocaine with 5 ML 0.5% ropivacaine and 40 mg of Depo-Medrol was utilized. 1 mL was injected into each trigger point for a total of 10 injections. 27-gauge half inch needle was utilized. The patient's vital signs were stable afterwards and the procedure was tolerated well. Patient was discharged home with follow- up instructions.
== END 2018-10-06 07:35 | disposition home or self-care (01) ==
LOC: ORPAIN 06:47
PROVIDERS: ATTEND Anesthesiology
DX: M79.18 Myalgia, other site (principal)
CPT/HCPCS: 81025; 20553; J1030; J2001

== ENCOUNTER 2018-11-02 14:14 | Emergency (ER) | payer OTHER ==
[2018-11-02] MEDS ORDERED: SODIUM CHLORIDE 0.9% 1,000 ML IV STA (14:42)
--- NOTE | 2018-11-02 15:05 | ED ---
General Adult HPI - General Chief complaint: Dizziness Stated complaint: poss dehydration Time Seen by Provider: 11/02/18 14:26 Source: patient, RN notes reviewed, old records reviewed Mode of arrival: ambulatory Limitations: no limitations - History of Present Illness Initial comments: 37 -year-old female presenting with generalized weakness, concern for dehydration. She has not been eating or drinking well. She has recurrent issues of dehydration secondary to poor by mouth intake. Patient has history of neurodegenerative disorder and follows at [facility]. She is uncertain of the exact name of her condition. She denies fever or chills. Denies vomiting. Denies diarrhea. She states she has had decreased urine output. She reports some lightheadedness and dizziness. - Related Data Home Medications Medication Instructions Recorded Confirmed Montelukast [Singulair] 10 mg PO HS 09/30/13 11/02/18 traZODone HCL [Desyrel] 100 mg PO HS 11/21/15 11/02/18 PARoxetine [Paxil] 40 mg PO HS 08/27/17 11/02/18 Methylphenidate HCl [Concerta] 36 mg PO DAILY 10/22/17 11/02/18 Albuterol Inhaler [Ventolin Hfa 2 puff INHALATION RT-QID PRN 04/01/18 11/02/18 Inhaler] Docusate [Colace] 100 mg PO HS 07/10/18 11/02/18 Levalbuterol HCl [Xopenex 0.63 mg INHALATION RT-QID PRN 07/10/18 11/02/18 Nebulized] Levothyroxine Sodium [Synthroid] 125 mcg PO DAILY 07/10/18 11/02/18 Medroxyprogesterone Acetate 150 mg IM Q90D 07/10/18 11/02/18 [Depo-Provera] Omalizumab [Xolair] 300 mg SQ Q30D 07/10/18 11/02/18 Ondansetron [Zofran] 4 mg PO Q8HR PRN 07/10/18 11/02/18 Carbidopa-Levodopa 25-100 mg 2 tab PO TID 08/08/18 11/02/18 [Sinemet 25-100 mg] Cholecalciferol [Vitamin D3 (25 1,000 unit PO DAILY 08/10/18 11/02/18 Mcg = 1000 Iu)] Naloxone HCl [Narcan] 4 mg NASAL DIRECTED PRN 09/22/18 11/02/18 Multivitamins, Thera [Multivitamin 1 tab PO DAILY 11/02/18 11/02/18 (formulary)] Previous Rx's Medication Instructions Recorded HYDROcodone/APAP 7.5-325MG [[place] 1 tab PO Q6HR PRN #120 tab 07/28/18 7.5-325] Pregabalin [Lyrica] 75 mg PO TID #90 cap 09/23/18 tiZANidine HCL [Zanaflex] 6 mg PO Q8HR PRN #90 capsule 09/23/18 Allergies Allergy/AdvReac Type Severity Reaction Status Date / Time No Known Allergies Allergy Verified 11/02/18 15:02 Review of Systems ROS Statement: Those systems with pertinent positive or pertinent negative responses have been documented in the HPI. ROS Other: All systems not noted in ROS Statement are negative. 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 HERNIATED DISC, cervical ca. 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 Surgery on her cervix for cancer, foot surgery, cysto/lithotripsy 08-26-18 @[place] Past Anesthesia/Blood Transfusion Reactions: Postoperative Nausea & Vomiting (PONV) Past Psychological History: Anxiety, Depression Smoking Status: Never smoker Past Alcohol Use History: None Reported Past Drug Use History: None Reported - Past Family History Mother Family Medical History: Pneumonia Additional Family Medical History / Comment(s): Mother of pneumonia. Patient's son of brain cancer, last mother and father both liver cancer Son(s) Family Medical History: Cancer Additional Family Medical History / Comment(s): Son of brain cancer. Father Family Medical History: Cancer, Liver Disease Additional Family Medical History / Comment(s): Father has liver cancer with surgery. He has hepatitis. General Exam Limitations: no limitations General appearance: alert, in no apparent distress Head exam: Present: atraumatic, normocephalic Eye exam: Present: normal appearance, PERRL, EOMI Neck exam: Present: normal inspection. Absent: tenderness, meningismus Respiratory exam: Present: normal lung sounds bilaterally. Absent: respiratory distress, wheezes, rales Cardiovascular Exam: Present: regular rate, normal rhythm GI/Abdominal exam: Present: soft. Absent: distended, tenderness, guarding, rebound Extremities exam: Present: normal inspection, normal capillary refill Neurological exam: Present: alert, other (Generalized weakness, proximal muscle weakness, no focal findings) Psychiatric exam: Present: normal affect, normal mood Skin exam: Present: warm, dry, intact, pallor. Absent: cyanosis, diaphoretic Course Vital Signs 11/02/18 11/02/18 11/02/18 14:21 15:07 16:18 Temperature 98.3 F 97.6 F Pulse Rate 94 76 67 Respiratory 18 16 18 Rate Blood Pressure 114/76 99/67 106/73 O2 Sat by Pulse 98 98 100 Oximetry Medical Decision Making - Medical Decision Making 37 -year-old female presenting with lightheadedness, dizziness, concern for dehydration. Patient has normal CBC, normal electrolytes. No ketones in the urine. She is given 2 L of IV hydration, reevaluation she is feeling better. She has been struggling with maintaining oral hydration secondary to loss of appetite. She believes that this is related to the multiple medications she is currently on. She is encouraged to attempt to maintain oral hydration. She will return with worsening or changing symptoms. - Lab Data Result diagrams: 11/02/18 15:03 11/02/18 15:03 Lab Results 11/02/18 11/02/18 11/02/18 Range/Units 15:03 15: 15:03 WBC 5.2 (3.8-10.6) k/uL RBC 4.00 (3.80-5.40) m/uL Hgb 12.4 (11.4-16.0) gm/dL Hct 36.7 (34.0-46.0) % MCV 91.8 (80.0-100.0) fL MCH 31.2 (25.0-35.0) pg MCHC 33.9 (31.0-37.0) g/dL RDW 13.0 (11.5-15.5) % Plt Count 222 (150-450) k/uL Neutrophils % 66 % Lymphocytes % 26 % Monocytes % 4 % Eosinophils % 1 % Basophils % 1 % Neutrophils # 3.4 (1.3-7.7) k/uL Lymphocytes # 1.4 (1.0-4.8) k/uL Monocytes # 0.2 (0-1.0) k/uL Eosinophils # 0.1 (0-0.7) k/uL Basophils # 0.0 (0-0.2) k/uL Sodium 139 (137-145) mmol/L Potassium 4.2 (3.5-5.1) mmol/L Chloride 109 H (98-107) mmol/L Carbon Dioxide 22 (22-30) mmol/L Anion Gap 8 mmol/L BUN 14 (7-17) mg/dL Creatinine 0.97 (0.52-1.04) mg/dL Est GFR (CKD-EPI)AfAm 87 (>60 ml/min/1.73 sqM) Est GFR (CKD-EPI)NonAf 75 (>60 ml/min/1.73 sqM) Glucose 113 H (74-99) mg/dL Plasma Lactic Acid Yordan 0.8 (0.7-2.0) mmol/L Calcium 9.2 (8.4-10.2) mg/dL Total Bilirubin 0.4 (0.2-1.3) mg/dL AST 14 (14-36) U/L ALT 12 (9-52) U/L Alkaline Phosphatase 58 (38-126) U/L Total Protein 6.4 (6.3-8.2) g/dL Albumin 4.1 (3.5-5.0) g/dL Urine Color Urine Appearance (Clear) Urine pH (5.0-8.0) Ur Specific [place] (1.001-1.035) Urine Protein (Negative) Urine Glucose (UA) (Negative) Urine Ketones (Negative) Urine Blood (Negative) Urine Nitrite (Negative) Urine Bilirubin (Negative) Urine Urobilinogen (<2.0) mg/dL Ur Leukocyte Esterase (Negative) Urine RBC (0-5) /hpf Urine WBC (0-5) /hpf Ur Squamous Epith Cells (0-4) /hpf Urine Mucus (None) /hpf 11/02/18 Range/Units 15:18 WBC (3.8-10.6) k/uL RBC (3.80-5.40) m/uL Hgb (11.4-16.0) gm/dL Hct (34.0-46.0) % MCV (80.0-100.0) fL MCH (25.0-35.0) pg MCHC (31.0-37.0) g/dL RDW (11.5-15.5) % Plt Count (150-450) k/uL Neutrophils % % Lymphocytes % % Monocytes % % Eosinophils % % Basophils % % Neutrophils # (1.3-7.7) k/uL Lymphocytes # (1.0-4.8) k/uL Monocytes # (0-1.0) k/uL Eosinophils # (0-0.7) k/uL Basophils # (0-0.2) k/uL Sodium (137-145) mmol/L Potassium (3.5-5.1) mmol/L Chloride (98-107) mmol/L Carbon Dioxide (22-30) mmol/L Anion Gap mmol/L BUN (7-17) mg/dL Creatinine (0.52-1.04) mg/dL Est GFR (CKD-EPI)AfAm (>60 ml/min/1.73 sqM) Est GFR (CKD-EPI)NonAf (>60 ml/min/1.73 sqM) Glucose (74-99) mg/dL Plasma Lactic Acid Yordan (0.7-2.0) mmol/L Calcium (8.4-10.2) mg/dL Total Bilirubin (0.2-1.3) mg/dL AST (14-36) U/L ALT (9-52) U/L Alkaline Phosphatase (38-126) U/L Total Protein (6.3-8.2) g/dL Albumin (3.5-5.0) g/dL Urine Color Yellow Urine Appearance Clear (Clear) Urine pH 5.5 (5.0-8.0) Ur Specific [place] 1.036 H (1.001-1.035) Urine Protein Trace H (Negative) Urine Glucose (UA) Negative (Negative) Urine Ketones Negative (Negative) Urine Blood Negative (Negative) Urine Nitrite Negative (Negative) Urine Bilirubin Negative (Negative) Urine Urobilinogen 2.0 (<2.0) mg/dL Ur Leukocyte Esterase Trace H (Negative) Urine RBC 2 (0-5) /hpf Urine WBC 6 H (0-5) /hpf Ur Squamous Epith Cells 1 (0-4) /hpf Urine Mucus Many H (None) /hpf Disposition Clinical Impression: Dehydration Disposition: HOME SELF-CARE Condition: Fair Instructions (If sedation given, give patient instructions): Dizziness (ED), Dehydration (ED) Is patient prescribed a controlled substance at d/c from ED?: No Referrals: Slade Gonzalez MD [Primary Care Provider] - 1-2 days Time of Disposition: 16:53
[2018-11-02 15:20] LABS: Basophils % (A) 1 %; Eosinophils # (A) 0.1 k/uL (0-0.7); Eosinophils % (A) 1 %; HCT 36.7 % (34.0-46.0); HGB 12.4 gm/dL (11.4-16.0); Lymphocytes # (A) 1.4 k/uL (1.0-4.8); Lymphocytes % (A) 26 %; MCH 31.2 pg (25.0-35.0); MCHC 33.9 g/dL (31.0-37.0); MCV 91.8 fL (80.0-100.0); Mean Platelet Volume 6.3; Monocytes # (A) 0.2 k/uL (0-1.0); Monocytes % (A) 4 %; Neutrophils # (A) 3.4 k/uL (1.3-7.7); Neutrophils % (A) 66 %; Platelet Count 222 k/uL (150-450); WBC 5.2 k/uL (3.8-10.6)
[2018-11-02 15:27] LABS: Albumin 4.1 g/dL (3.5-5.0); Calcium 9.2 mg/dL (8.4-10.2); Potassium 4.2 mmol/L (3.5-5.1); Total Bilirubin 0.4 mg/dL (0.2-1.3); Total Protein 6.4 g/dL (6.3-8.2)
[2018-11-02 15:28] LABS: Appearance,Urine Clear (Clear); Bilirubin,Urine Negative (Negative); Blood,Urine Negative (Negative); Color,Urine Yellow; Glucose,Urine (UA) Negative (Negative); Ketones,Urine Negative (Negative); Leukocyte Esterase,Urine Trace (Negative); Mucus,Urine Many /hpf; Nitrite,Urine Negative (Negative); PH, Urine 5.5 (5.0-8.0); Protein,Urine Trace (Negative); RBC,Urine 2 /hpf (0-5); Specific Gravity,Urine 1.036 (1.001-1.035); Squamous Epithelial Cell,Urine 1 /hpf (0-4); WBC,Urine 6 /hpf (0-5)
[2018-11-02 17:03] VITALS: BP 102/65; PULSE 76; RESP 16; TEMP 98
== END 2018-11-02 17:03 | disposition home or self-care (01) ==
LOC: EC 14:14
DX: E86.0 Dehydration (principal); E42 Marasmic kwashiorkor; E53.1 Pyridoxine deficiency; R39.12 Poor urinary stream; J45.909 Unspecified asthma, uncomplicated; E07.9 Disorder of thyroid, unspecified; F41.9 Anxiety disorder, unspecified; F32.9 Major depressive disorder, single episode, unspecified; Z85.41 Personal history of malignant neoplasm of cervix uteri; Z86.14 Personal history of Methicillin resistant Staphylococcus aureus infection; Z79.890 Hormone replacement therapy; Z79.3 Long term (current) use of hormonal contraceptives; Z79.899 Other long term (current) drug therapy
CPT/HCPCS: 36415; 80053; 81001; 83605; 85025; 96360; 99284

== ENCOUNTER 2018-11-24 17:41 | Emergency (ER) | payer OTHER ==
[2018-11-24] MEDS ORDERED: DIAZEPAM 5 MG/ML 2 ML INJ IM ONE (18:45)
[2018-11-24] MEDS ORDERED: MORPHINE SULFATE 4 MG/ML SYRINGE IV STA ×2 (18:45→21:36)
[2018-11-24] MEDS ORDERED: SODIUM CHLORIDE 0.9% 1,000 ML IV STA (18:47)
--- NOTE | 2018-11-24 19:35 | ED ---
General Adult HPI - General Chief complaint: Neuro Symptoms/Deficit Stated complaint: muscle spasms Time Seen by Provider: 11/24/18 18:39 Source: EMS, RN notes reviewed, old records reviewed Mode of arrival: EMS Limitations: no limitations - History of Present Illness Initial comments: 38-year-old female patient with past medical history of nerve degeneration of brain R accumulation presents to ED with exacerbation of chronic muscle spasm di sorder. Patient reports that she was at baseline muscle spasms however they have been worse today. Patient ports that she has generalized muscle spasms throughout her entire body. Denies any new symptoms, states that this is just an exacerbation of chronic symptoms. Patient did talk to her neurologist today based out of [place] he recommended that she presented to the ED for symptomatic treatment. Denies any other complaints at this time. Denies any chest pain shortness of breath abdominal pain nausea vomiting or diarrhea. Systemic: Pt denies fatigue, fever/chills, rash. Pt denies weakness, night sweats, weight loss. Neuro: Pt denies headache, visual disturbances, syncope or pre-syncope. HEENT: Pt denies ocular discharge or irritation, otalgia, rhinorrhea, pharyngitis or notable lymphadenopathy. Cardiopulmonary: Pt denies chest pain, SOB, heart palpitations, dyspnea on exertion. Abdominal/GI: Pt denies abdominal pain, n/v/d. : Pt denies dysuria, burning w/ urination, frequency/urgency. Denies new onset urinary or bowel incontinence. MSK: Pt denies myalgia, loss of strength or function in extremities. Neuro: Pt denies new onset weakness, paresthesias. - Related Data Home Medications Medication Instructions Recorded Confirmed Levalbuterol HCl [Xopenex 0.63 mg INHALATION RT-QID PRN 07/10/18 11/24/18 Nebulized] Levothyroxine Sodium [Synthroid] 125 mcg PO DAILY 07/10/18 11/24/18 Medroxyprogesterone Acetate 150 mg IM Q84D 07/10/18 11/24/18 [Depo-Provera] Omalizumab [Xolair] 300 mg SQ Q28D 07/10/18 11/24/18 Carbidopa-Levodopa 25-100 mg 2.5 tab PO TID 08/08/18 11/24/18 [Sinemet 25-100 mg] Cholecalciferol [Vitamin D3 (25 1,000 unit PO DAILY 08/10/18 11/24/18 Mcg = 1000 Iu)] Baclofen [Lioresal] 30 mg PO TID 11/24/18 11/24/18 PARoxetine HCL [Paxil] 40 mg PO HS 11/24/18 11/24/18 traZODone HCL [Desyrel] 100 mg PO HS 11/24/18 11/24/18 Previous Rx's Medication Instructions Recorded HYDROcodone/APAP 7.5-325MG [[place] 1 tab PO Q6HR PRN #120 tab 07/28/18 7.5-325] Allergies Allergy/AdvReac Type Severity Reaction Status Date / Time albuterol AdvReac Rapid Verified 11/24/18 18:09 Heart Rate Review of Systems ROS Statement: Those systems with pertinent positive or pertinent negative responses have been documented in the HPI. ROS Other: All systems not noted in ROS Statement are negative. 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 HERNIATED DISC, cervical ca. 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 Surgery on her cervix for cancer, foot surgery, cysto/lithotripsy 08-26-18 @[place] Past Anesthesia/Blood Transfusion Reactions: Postoperative Nausea & Vomiting (PONV) Past Psychological History: Anxiety, Depression Smoking Status: Never smoker Past Alcohol Use History: None Reported Past Drug Use History: None Reported - Past Family History Mother Family Medical History: Pneumonia Additional Family Medical History / Comment(s): Mother of pneumonia. Patient's son of brain cancer, last mother and father both liver cancer Son(s) Family Medical History: Cancer Additional Family Medical History / Comment(s): Son of brain cancer. Father Family Medical History: Cancer, Liver Disease Additional Family Medical History / Comment(s): Father has liver cancer with surgery. He has hepatitis. General Exam - General Exam Comments Initial Comments: Constitutional: NAD, AOX3, Pt has pleasant affect. HEENT: NC/AT, trachea midline, neck supple, no lymphadenopathy. Posterior pharynx non erythematous, without exudates. External ears appear normal, without discharge. Mucous membranes moist. Eyes PERRLA, EOM intact. There is no scleral icterus. No pallor noted. Cardiopulmonary: RRR, no murmurs, rubs or gallops, no JVD noted. Lungs CTAB in anterior and posterior cervantes. No peripheral edema. Abdominal exam: Abdomen soft and non-distended. Abdomen non-tender to palpation in all 4 quadrants. Bowel sounds active in LLQ. No hepatosplenomegaly. No ecchymosis Neuro: CN II-XII intact. No nuchal rigidity. No raccon eyes, no ayoub sign, no hemotympanum. No cervical spinal tenderness. MSK: No posterior calf tenderness bilaterally, homans sign negative bilaterally. Posterior tibialis and radial pulse +2 bilaterally. Sensation intact in upper and lower extremities. Full active ROM in upper and lower extremities, 5/5 stregnth. Limitations: no limitations Course Vital Signs 11/24/18 11/24/18 17:48 22:42 Temperature 98.4 F 97.2 F L Pulse Rate 102 H 68 Respiratory 20 18 Rate Blood Pressure 102/77 106/75 O2 Sat by Pulse 98 98 Oximetry Medical Decision Making - Medical Decision Making 38-year-old female patient with past medical history of nerve degeneration of brain R accumulation presents to ED with exacerbation of chronic muscle spasm d isorder. Patient reports that she was at baseline muscle spasms however they have been worse today. Patient ports that she has generalized muscle spasms throughout her entire body. Denies any new symptoms, states that this is just an exacerbation of chronic symptoms. Patient did talk to her neurologist today based out of [place] he recommended that she presented to the ED for symptomatic treatment. Denies any other complaints at this time. Denies any chest pain shortness of breath abdominal pain nausea vomiting or diarrhea. Patient also in stable, afebrile. Physical exam test for acute pathology. Patient muscle spasms improved with muscle relaxer, analgesic. Patient stated that she would prefer to be transferred to [facility] to be seen by her private neurologist. Case was discussed was [facility] neurologist Dr. Mehta who believed that due to this being exacerbation of chronic symptoms are not any new acute symptoms patient discharge and outpatient follow-up is appropriate. Patient is comfortable with that plan. Patient will discharge, follow up with primary care provider and neurologist tomorrow. Return here if condition worsens. Case discussed with Dr. Stanley. - Lab Data Result diagrams: 11/24/18 17:46 11/24/18 17:46 Lab Results 11/24/18 11/24/18 11/24/18 Range/Units 17:46 17:46 Unknown WBC 6.4 (3.8-10.6) k/uL RBC 4.14 (3.80-5.40) m/uL Hgb 13.0 (11.4-16.0) gm/dL Hct 38.2 (34.0-46.0) % MCV 92.3 (80.0-100.0) fL MCH 31.3 (25.0-35.0) pg MCHC 34.0 (31.0-37.0) g/dL RDW 12.6 (11.5-15.5) % Plt Count 244 (150-450) k/uL Neutrophils % 60 % Lymphocytes % 31 % Monocytes % 6 % Eosinophils % 1 % Basophils % 1 % Neutrophils # 3.8 (1.3-7.7) k/uL Lymphocytes # 2.0 (1.0-4.8) k/uL Monocytes # 0.4 (0-1.0) k/uL Eosinophils # 0.1 (0-0.7) k/uL Basophils # 0.0 (0-0.2) k/uL Sodium 141 (137-145) mmol/L Potassium 5.1 (3.5-5.1) mmol/L Chloride 109 H (98-107) mmol/L Carbon Dioxide 23 (22-30) mmol/L Anion Gap 9 mmol/L BUN 13 (7-17) mg/dL Creatinine 0.89 (0.52-1.04) mg/dL Est GFR (CKD-EPI)AfAm >90 (>60 ml/min/1.73 sqM) Est GFR (CKD-EPI)NonAf 83 (>60 ml/min/1.73 sqM) Glucose 96 (74-99) mg/dL Calcium 9.1 (8.4-10.2) mg/dL Total Bilirubin 0.9 (0.2-1.3) mg/dL AST 34 (14-36) U/L ALT 15 (9-52) U/L Alkaline Phosphatase 40 (38-126) U/L Creatine Kinase 55 (30-135) U/L Total Protein 6.7 (6.3-8.2) g/dL Albumin 4.3 (3.5-5.0) g/dL Urine Color Yellow Urine Appearance Cloudy H (Clear) Urine pH 5.5 (5.0-8.0) Ur Specific [place] 1.028 (1.001-1.035) Urine Protein Trace H (Negative) Urine Glucose (UA) Negative (Negative) Urine Ketones Negative (Negative) Urine Blood Negative (Negative) Urine Nitrite Negative (Negative) Urine Bilirubin Negative (Negative) Urine Urobilinogen <2.0 (<2.0) mg/dL Ur Leukocyte Esterase Trace H (Negative) Urine RBC 1 (0-5) /hpf Urine WBC 4 (0-5) /hpf Ur Squamous Epith Cells 7 H (0-4) /hpf Urine Bacteria Occasional H (None) /hpf Hyaline Casts 1 (0-2) /lpf Urine Mucus Occasional H (None) /hpf Disposition Clinical Impression: Muscle spasm Disposition: HOME SELF-CARE Condition: Stable Instructions (If sedation given, give patient instructions): Muscle Spasm (ED) Additional Instructions: Patient to adhere to previously discussed treatment plan and will take medication(s) as directed. Patient to follow up with PCP in 1-2 days. Patient to return to ED if symptoms do not improve. Follow with neurologist tomorrow. Take home meds. Return to ER if conditions worsen. Is patient prescribed a controlled substance at d/c from ED?: No Referrals: Slade Gonzalez MD [Primary Care Provider] - 1-2 days
[2018-11-24 19:59] LABS: ALT 15 U/L (9-52); AST 34 U/L (14-36); African American GFR (CKD) >90 (>60 ml/min/1.73 sqM); Albumin 4.3 g/dL (3.5-5.0); Alkaline Phosphatase 40 U/L (38-126); Anion Gap 9 mmol/L; Blood Urea Nitrogen 13 mg/dL (7-17); Calcium 9.1 mg/dL (8.4-10.2); Carbon Dioxide 23 mmol/L (22-30); Chloride 109 mmol/L (98-107); Creatine Kinase 55 U/L (30-135); Glucose 96 mg/dL (74-99); Sodium 141 mmol/L (137-145); Total Bilirubin 0.9 mg/dL (0.2-1.3); Total Protein 6.7 g/dL (6.3-8.2)
[2018-11-24 20:00] LABS: Basophils % (A) 1 %; Eosinophils # (A) 0.1 k/uL (0-0.7); Eosinophils % (A) 1 %; HCT 38.2 % (34.0-46.0); Lymphocytes % (A) 31 %; MCH 31.3 pg (25.0-35.0); MCV 92.3 fL (80.0-100.0); Mean Platelet Volume 6.9; Monocytes # (A) 0.4 k/uL (0-1.0); Monocytes % (A) 6 %; Neutrophils # (A) 3.8 k/uL (1.3-7.7); Neutrophils % (A) 60 %; Platelet Count 244 k/uL (150-450); RBC 4.14 m/uL (3.80-5.40); RDW 12.6 % (11.5-15.5); WBC 6.4 k/uL (3.8-10.6)
[2018-11-24 20:03] LABS: Potassium 5.1 mmol/L (3.5-5.1)
[2018-11-24 22:07] LABS: Appearance,Urine Cloudy (Clear); Bacteria,Urine Occasional /hpf; Bilirubin,Urine Negative (Negative); Blood,Urine Negative (Negative); Color,Urine Yellow; Glucose,Urine (UA) Negative (Negative); Hyaline Casts,Urine 1 /lpf (0-2); Ketones,Urine Negative (Negative); Leukocyte Esterase,Urine Trace (Negative); Mucus,Urine Occasional /hpf; Nitrite,Urine Negative (Negative); PH, Urine 5.5 (5.0-8.0); Protein,Urine Trace (Negative); RBC,Urine 1 /hpf (0-5); Specific Gravity,Urine 1.028 (1.001-1.035); Squamous Epithelial Cell,Urine 7 /hpf (0-4); Urobilinogen,Urine <2.0 mg/dL (<2.0)
[2018-11-24 22:44] VITALS: BP 106/75; PULSE 68; RESP 18; TEMP 97.2
== END 2018-11-24 22:44 | disposition home or self-care (01) ==
LOC: EC 17:41
DX: M62.838 Other muscle spasm (principal); J45.909 Unspecified asthma, uncomplicated; E07.9 Disorder of thyroid, unspecified; F32.9 Major depressive disorder, single episode, unspecified; F41.9 Anxiety disorder, unspecified; Z86.14 Personal history of Methicillin resistant Staphylococcus aureus infection; Z88.8 Allergy status to other drugs, medicaments and biological substances; Z79.890 Hormone replacement therapy; Z79.899 Other long term (current) drug therapy; Z86.69 Personal history of other diseases of the nervous system and sense organs; Z85.41 Personal history of malignant neoplasm of cervix uteri; Z87.39 Personal history of other diseases of the musculoskeletal system and connective tissue; Z98.890 Other specified postprocedural states
CPT/HCPCS: 99284; 96374; 96376; 96361; 96372; 36415; 80053; 82550; 85025; 81001; J2270; J3360

== ENCOUNTER → 2018-12-09 | Outpatient (CLI) | payer OTHER ==
[2018-12-09 11:39] VITALS: BP 113/81; PULSE 137; RESP 20
--- NOTE | 2018-12-10 10:28 | P.PAINPG ---
Subjective Progress Note Date: 12/09/18 This is follow-up visit for this patient with a history of severe and chronic low back pain secondary to lumbar degenerative disc diseases , lumbar spondylosis with facet arthropathy. Her pain has been reasonably well-controlled with a combination of medications and interventional pain procedures. Today she returns due to intense total body spasms and severe pain from the spasms. She follows with a neurologist at [facility] who has referred her to [facility] neurology. She has an appointment for end of January. She notes that over the past 2-3 weeks her spasms have intensified. She takes different muscle relaxers including baclofen 30 mg 3 times a day and tizanidine 6 mg twice a day with some benefit. She also takes [place] 7.5/325 every 6 hours. She was prescribed Lyrica by our clinic however her neurologist told her to not take this medicine so she has not been taking it. She has undergone Botox injections with her neurologist into her neck. Her neurologist asked her to follow up with us to discuss medication management as her pain from the spasms is poorly controlled. Today, she is tearful during our interview and states that she doesn't know how she can go on this way. 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 She went into the emergency room about 2 weeks ago and received IV morphine and Valium which "took the edge off". She was also recently diagnosed with left avascular necrosis of the hip, and is scheduled to undergo an MRI. Patient denies any side effects of the medication, denies excessive drowsiness or sleepiness, denies suicidal ideation, and reports that the current pain medication is helping to control the pain ,and improve activity of daily living. Review of systems is negative for chest pain, shortness of breath, new onset weakness, numbness/tingling, abdominal pain, malaise, fever, night sweats, chills, homicidal or suicidal ideation, or bowel or bladder incontinence. Physical exam: Vitals: Reviewed in EMR GENERAL: Patient is distressed, tearful, appearing to have severe spasms of neck and bilateral upper extremities PSYCH: Tearful. Awake, alert, and oriented SKIN: Skin color, texture, turgor normal, no rashes or lesions HEENT: Normocephalic, atraumatic. EOM intact CV: No pedal edema RESP: Respirations are unlabored, no audible wheezing GI: Abdomen non-distended MUSCULOSKELETAL: Neck: Tenderness to palpation over the cervical paraspinous muscles with intense muscle spasm of right sternocleidomastoid and multiple trigger points palpable. Extremities: Peripheral joint ROM is pain limited particularly bilateral hands and wrists. No edema or skin discolorations noted. Gait: Gait is slow, antalgic NEUR: Cranial nerves are grossly intact Assessment and plan = Intense generalized muscle spasms/myofascial pain: This could be due to her chronic neuro degenerative disease with iron deposition in brain. Chronic low back pain secondary to lumbar degenerative disc disease , lumbar spondylosis with facet arthropathy without myelopathy Upper back pain secondary to myofascial pain syndrome and cervical area. Midback pain secondary to thoracic herniated disc disease chronic and current use of high-risk medication (Opioids). The patient was counseled about risk of opioid use, psychological risk associated with opioids and was orally counseled to not overuse , divert,or sell dictations to take medications as prescribed only , and to restore medication in safe location , the patient counseled against driving while using narcotic medications, and also not to use alcohol or any illicit recreational drugs, patient's verbalized understanding that the lack of compliance will result in failure to renew narcotic prescription and possible discharge from the clinic - diagnoses, prognosis, and treatment options including but not limited to physical therapy, surgical interventions, interventional therapies , and medication management including narcotics and adjuvant medication were discussed with the patient and all the questions answered Prescription for methadone 2.5 mg twice a day written today for 30 day supply given with no refills. If patient tolerates this well and experiences benefit from it, would recommend increasing dose to 3 times a day. MAPS reviewed and is appropriate. Follow-up: In clinic for medication management in 1 month Patient scheduled to see neurology at [facility] in January. Objective - Vital Signs Vital signs: Vital Signs Temp Pulse 137 H 12/09/18 11:32 Resp 20 12/09/18 11:32 BP 113/81 12/09/18 11:32 Pulse Ox 95 12/09/18 11:32 Intake & Output 12/09/18 12/10/18 12/10/18 18:59 06:59 18:59 Weight 68.039 kg PQRS Measure Charge Sheet Measure #130: Documentation of Current Meds in Medical Chart: Patient's medications documented in chart Measure #47: Advance Care Plan: Advance care planning discussed & documented, pt chose/unable to give Measure #412: Opioid Treatment Agreement: Documented signed opioid trtmnt agreemnt min once during opioid trtmnt Measure #408: Opioid Therapy Follow-up Evaluation: Patient had f/u eval minimum every 3 months during opioid therapy Measure #317: Preventitive Care & Scrn High Bld Press & F/U: Normal blood pressure, f/u not required Measure #128: Body Mass Index (BMI) Screening & Follow-up: BMI documented within normal parameters Measure #131: Pain Assessment & Follow-up: Pain positive & plan documented, Follow-up scheduled PQRS Narrative: Smoking Status Never smoker Narcotic Agreement Date Signed 01/13/18 Blood Pressure 113/81 Pain Intensity [Generalized] 6 Scale Used Numeric (1 - 10) Hx Alcohol Use (MH) No Home Medications: Ambulatory Orders Levalbuterol HCl [Xopenex Nebulized] 0.63 mg INHALATION RT-QID PRN 07/10/18 Levothyroxine Sodium [Synthroid] 125 mcg PO DAILY 07/10/18 Medroxyprogesterone Acetate [Depo-Provera] 150 mg IM Q84D 07/10/18 Omalizumab [Xolair] 300 mg SQ Q28D 07/10/18 HYDROcodone/APAP 7.5-325MG [Cleveland 7.5-325] 1 tab PO Q6HR PRN #120 tab 07/28/18 Carbidopa-Levodopa 25-100 mg [Sinemet 25-100 mg] 2.5 tab PO TID 08/08/18 Cholecalciferol [Vitamin D3 (25 Mcg = 1000 Iu)] 1,000 unit PO DAILY 08/10/18 Baclofen [Lioresal] 30 mg PO TID 11/24/18 PARoxetine HCL [Paxil] 40 mg PO HS 11/24/18 traZODone HCL [Desyrel] 100 mg PO HS 11/24/18 Methadone HCl [Dolophine HCl] 2.5 mg PO Q12H 30 Days #30 tab 12/09/18 Controlled Substance Measures - Controlled Substance Measures Is patient prescribed a controlled substance at discharge?: Yes When asked, does pt state using other controlled substances?: No If prescribed controlled substance>3 days was MAPS reviewed?: Yes If Rx opioid, was Start Talking consent form obtained?: Yes If opioid is for acute pain is fill amount 7 days or less?: No Was information provided regarding opioid addiction?: Yes
== END | disposition home or self-care (01) ==
LOC: PNWHC3 11:02
PROVIDERS: ATTEND Anesthesiology
DX: G89.29 Other chronic pain (principal); M51.24 Other intervertebral disc displacement, thoracic region; M51.36 Other intervertebral disc degeneration, lumbar region; M47.816 Spondylosis without myelopathy or radiculopathy, lumbar region; M46.96 Unspecified inflammatory spondylopathy, lumbar region; Z79.891 Long term (current) use of opiate analgesic
CPT/HCPCS: 99211

== ENCOUNTER → 2018-12-11 | Outpatient (CLI) | payer OTHER | END | disposition home or self-care (01) | LOC: LABWHC1 10:56 | PROVIDERS: ATTEND Psychiatry & Neurology Neurology | DX: G24.9 Dystonia, unspecified (principal) | CPT/HCPCS: 82525 ==

== ENCOUNTER 2018-12-18 14:50 | Emergency (ER) | payer OTHER ==
[2018-12-18] MEDS ORDERED: SODIUM CHLORIDE 0.9% 1,000 ML IV STA (15:08)
[2018-12-18] MEDS ORDERED: HYDROmorphone 1 MG/ML 1 ML SYRINGE IVP STA ×2 (15:08→15:55)
--- NOTE | 2018-12-18 15:10 | ED ---
General Adult HPI - General Chief complaint: Chest Pain Stated complaint: chest pain, tightening on L side Time Seen by Provider: 12/18/18 14:59 Source: patient Mode of arrival: ambulatory Limitations: no limitations - History of Present Illness Initial comments: Dictation was produced using [employer] dictation software. please excuse any grammatical, word or spelling errors. Chief Complaint: 38-year-old female past medical history of neurologic muscle spasm disorder, thyroid disease seizure and asthma presents with chest pain. History of Present Illness: A 38-year-old female she gets chronic muscle spasms. She sees a neurologist based at [facility]. Patient states she has frequent attacks of muscle spasm exacerbation. She also has a history of chronic pain currently on methadone. Patient states that she normally has exacerbations when she gets dehydrated. Patient also has history of hypoglycemia. She also reports that her symptoms are exacerbated by low blood sugar. She states that her symptoms began on abruptly. She has had symptoms like this before. Patient states that the pain as sharp located to the left lateral chest. She states it's worse with deep inspiration. The ROS documented in this emergency department record has been reviewed and confirmed by me. Those systems with pertinent positive or negative responses have been documented in the HPI. All other systems are other negative and/or noncontributory. PHYSICAL EXAM: General Impression: Alert and oriented x3, not in acute distress HEENT: Normocephalic atraumatic, extra-ocular movements intact, pupils equal and reactive to light bilaterally, mucous membranes moist. Cardiovascular: Heart regular rate and rhythm, S1&S2 audible, no murmurs, rubs or gallops Chest: Lungs clear to auscultation bilaterally, no rhonchi, no wheeze, no rales Abdomen: Bowel sounds present, abdomen soft, non-tender, non-distended, no organomegaly Musculoskeletal: Pulses present and equal in all extremities, no peripheral edema Motor: no focal deficits noted Neurological: CN II-XII grossly intact, no focal motor or sensory deficits noted Skin: Intact with no visualized rashes Psych: Normal affect and mood ED course: 38-year-old female presents with atypical chest pain. She has a history of muscle spasm disorder. Patient has history of this in the past. Prescription for multiple medications including methadone, pain meds and muscle relaxants. EKGs benign. Chest x-ray is nonacute. Patient given hydromorphone and Valium. She is reevaluated on the improved. Patient is upset because she feels so she is coming to the emergency department frequently for relief. She does have an appointment with her neurologist. She is told to follow-up with that person for outpatient management of her symptoms. Patient given rescue be nzodiazepines when necessary severe muscle spasms. She is counseled on using this medication sparingly. She is told that this is only a rescue min whenever her symptoms are severe. return parameters discussed. Patient clear for discharge. - Related Data Home Medications Medication Instructions Recorded Confirmed Levalbuterol HCl [Xopenex 0.63 mg INHALATION RT-QID PRN 07/10/18 12/18/18 Nebulized] Levothyroxine Sodium [Synthroid] 125 mcg PO SUMOTUWETHSA 07/10/18 12/18/18 Medroxyprogesterone Acetate 150 mg IM Q84D 07/10/18 12/18/18 [Depo-Provera] Omalizumab [Xolair] 300 mg SQ Q28D 07/10/18 12/18/18 Carbidopa-Levodopa 25-100 mg 2.5 tab PO TID 08/08/18 12/18/18 [Sinemet 25-100 mg] Cholecalciferol [Vitamin D3 (25 1,000 unit PO DAILY 08/10/18 12/18/18 Mcg = 1000 Iu)] Baclofen [Lioresal] 30 mg PO TID 11/24/18 12/18/18 PARoxetine HCL [Paxil] 40 mg PO HS 11/24/18 12/18/18 traZODone HCL [Desyrel] 100 mg PO HS 11/24/18 12/18/18 Albuterol Inhaler [Ventolin Hfa 2 puff INHALATION RT-Q6H PRN 12/18/18 12/18/18 Inhaler] Botox Injection 1 dose IM Q90D 12/18/18 12/18/18 predniSONE 10 mg PO DAILY PRN 12/18/18 12/18/18 tiZANidine HCL [Zanaflex] 6 mg PO BID PRN 12/18/18 12/18/18 Previous Rx's Medication Instructions Recorded HYDROcodone/APAP 7.5-325MG [Snowflake 1 tab PO Q6HR PRN #120 tab 03/04/19 7.5-325] Methadone HCl [Dolophine HCl] 2.5 mg PO Q12H 30 Days #30 tab 12/09/18 Diazepam [Valium] 2 mg PO BID PRN #10 tab 12/18/18 Allergies Allergy/AdvReac Type Severity Reaction Status Date / Time albuterol AdvReac Rapid Verified 12/18/18 15:04 Heart Rate Review of Systems ROS Statement: Those systems with pertinent positive or pertinent negative responses have been documented in the HPI. ROS Other: All systems not noted in ROS Statement are negative. 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 HERNIATED DISC, cervical ca. 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 Surgery on her cervix for cancer, foot surgery, cysto/lithotripsy 08-26-18 @[facility] Past Anesthesia/Blood Transfusion Reactions: Postoperative Nausea & Vomiting (PONV) Past Psychological History: Anxiety, Depression Smoking Status: Never smoker Past Alcohol Use History: None Reported Past Drug Use History: None Reported - Past Family History Mother Family Medical History: Pneumonia Additional Family Medical History / Comment(s): Mother of pneumonia. Patient's son of brain cancer, last mother and father both liver cancer Son(s) Family Medical History: Cancer Additional Family Medical History / Comment(s): Son of brain cancer. Father Family Medical History: Cancer, Liver Disease Additional Family Medical History / Comment(s): Father has liver cancer with surgery. He has hepatitis. General Exam Limitations: no limitations Course Vital Signs 12/18/18 12/18/18 12/18/18 15:15 15:30 16:00 Pulse Rate 121 H 112 H 123 H Respiratory 14 11 L 10 L Rate Blood Pressure 154/107 153/135 O2 Sat by Pulse 96 96 95 Oximetry 12/18/18 12/18/18 16:30 16:46 Pulse Rate 118 H Respiratory 12 18 Rate Blood Pressure 165/148 109/61 O2 Sat by Pulse 97 Oximetry Medical Decision Making - Lab Data Result diagrams: 12/18/18 15:30 12/18/18 15:30 Lab Results 12/18/18 12/18/18 12/18/18 Range/Units 15:30 15:30 15:30 WBC 5.7 (3.8-10.6) k/uL RBC 4.47 (3.80-5.40) m/uL Hgb 14.0 (11.4-16.0) gm/dL Hct 40.4 (34.0-46.0) % MCV 90.3 (80.0-100.0) fL MCH 31.3 (25.0-35.0) pg MCHC 34.7 (31.0-37.0) g/dL RDW 12.2 (11.5-15.5) % Plt Count 229 (150-450) k/uL Neutrophils % 62 % Lymphocytes % 29 % Monocytes % 5 % Eosinophils % 2 % Basophils % 1 % Neutrophils # 3.5 (1.3-7.7) k/uL Lymphocytes # 1.7 (1.0-4.8) k/uL Monocytes # 0.3 (0-1.0) k/uL Eosinophils # 0.1 (0-0.7) k/uL Basophils # 0.0 (0-0.2) k/uL PT 10.2 (9.0-12.0) sec INR 0.9 (<1.2) Sodium 140 (137-145) mmol/L Potassium 4.2 (3.5-5.1) mmol/L Chloride 108 H (98-107) mmol/L Carbon Dioxide 22 (22-30) mmol/L Anion Gap 10 mmol/L BUN 13 (7-17) mg/dL Creatinine 0.94 (0.52-1.04) mg/dL Est GFR (CKD-EPI)AfAm 89 (>60 ml/min/1.73 sqM) Est GFR (CKD-EPI)NonAf 77 (>60 ml/min/1.73 sqM) Glucose 91 (74-99) mg/dL Calcium 9.8 (8.4-10.2) mg/dL Troponin I (0.000-0.034) ng/mL 12/18/18 Range/Units 15:30 WBC (3.8-10.6) k/uL RBC (3.80-5.40) m/uL Hgb (11.4-16.0) gm/dL Hct (34.0-46.0) % MCV (80.0-100.0) fL MCH (25.0-35.0) pg MCHC (31.0-37.0) g/dL RDW (11.5-15.5) % Plt Count (150-450) k/uL Neutrophils % % Lymphocytes % % Monocytes % % Eosinophils % % Basophils % % Neutrophils # (1.3-7.7) k/uL Lymphocytes # (1.0-4.8) k/uL Monocytes # (0-1.0) k/uL Eosinophils # (0-0.7) k/uL Basophils # (0-0.2) k/uL PT (9.0-12.0) sec INR (<1.2) Sodium (137-145) mmol/L Potassium (3.5-5.1) mmol/L Chloride (98-107) mmol/L Carbon Dioxide (22-30) mmol/L Anion Gap mmol/L BUN (7-17) mg/dL Creatinine (0.52-1.04) mg/dL Est GFR (CKD-EPI)AfAm (>60 ml/min/1.73 sqM) Est GFR (CKD-EPI)NonAf (>60 ml/min/1.73 sqM) Glucose (74-99) mg/dL Calcium (8.4-10.2) mg/dL Troponin I <0.012 (0.000-0.034) ng/mL Disposition Clinical Impression: Muscle spasm Disposition: HOME SELF-CARE Condition: Fair Instructions (If sedation given, give patient instructions): Muscle Spasm (ED) Prescriptions: Diazepam [Valium] 2 mg PO BID PRN #10 tab PRN Reason: Spasms Is patient prescribed a controlled substance at d/c from ED?: Yes If prescribed controlled substance>3 days was MAPS reviewed?: Prescribed <3 Days Referrals: Slade Gonzalez MD [Primary Care Provider] - 1-2 days Time of Disposition: 17:07
[2018-12-18 15:40] LABS: Basophils % (A) 1 %; Eosinophils # (A) 0.1 k/uL (0-0.7); Eosinophils % (A) 2 %; HCT 40.4 % (34.0-46.0); Lymphocytes # (A) 1.7 k/uL (1.0-4.8); Lymphocytes % (A) 29 %; MCH 31.3 pg (25.0-35.0); MCHC 34.7 g/dL (31.0-37.0); MCV 90.3 fL (80.0-100.0); Mean Platelet Volume 6.2; Monocytes # (A) 0.3 k/uL (0-1.0); Monocytes % (A) 5 %; Neutrophils # (A) 3.5 k/uL (1.3-7.7); Neutrophils % (A) 62 %; Platelet Count 229 k/uL (150-450); RBC 4.47 m/uL (3.80-5.40); RDW 12.2 % (11.5-15.5); WBC 5.7 k/uL (3.8-10.6)
[2018-12-18 15:48] LABS: Calcium 9.8 mg/dL (8.4-10.2); Potassium 4.2 mmol/L (3.5-5.1)
[2018-12-18 15:54] LABS: INR 0.9 (<1.2); Prothrombin Time 10.2 sec (9.0-12.0)
[2018-12-18] MEDS ORDERED: ONDANSETRON 4 MG/2 ML VIAL IVP STA (16:13)
[2018-12-18] MEDS ORDERED: DIAZEPAM 5 MG/ML 2 ML INJ IVP STA (16:24)
--- NOTE | 2018-12-18 17:15 | XR ---
EXAMINATION TYPE: XR chest 1V portable DATE OF EXAM: 12/18/2018 COMPARISON: 08/10/2018 HISTORY: Chest pain TECHNIQUE: Single frontal view of the chest is obtained. FINDINGS: Heart and mediastinum are normal. Lungs are clear. Diaphragm is normal. There are chest le ads. Bony thorax is intact IMPRESSION: Normal chest. No change.
[2018-12-18 17:54] VITALS: BP 103/83; PULSE 101; RESP 18
== END 2018-12-18 18:42 | disposition home or self-care (01) ==
LOC: EC 14:50
DX: M62.838 Other muscle spasm (principal); R07.89 Other chest pain; J45.909 Unspecified asthma, uncomplicated; K21.9 Gastro-esophageal reflux disease without esophagitis; G40.909 Epilepsy, unspecified, not intractable, without status epilepticus; E07.9 Disorder of thyroid, unspecified; D64.9 Anemia, unspecified; F32.9 Major depressive disorder, single episode, unspecified; F41.9 Anxiety disorder, unspecified; Z86.14 Personal history of Methicillin resistant Staphylococcus aureus infection; Z85.41 Personal history of malignant neoplasm of cervix uteri; Z79.890 Hormone replacement therapy; Z79.899 Other long term (current) drug therapy; Z88.8 Allergy status to other drugs, medicaments and biological substances; Z98.84 Bariatric surgery status
CPT/HCPCS: 36415; 80048; 84484; 85025; 85610; 71045; 99285; 96374; 96375 ×2; 96376; 96361; J3360; J2405; J1170

== ENCOUNTER 2018-12-20 16:51 | Emergency (ER) | payer OTHER ==
--- NOTE | 2018-12-20 18:07 | ED ---
General Adult HPI - General Chief complaint: Shortness of Breath Stated complaint: POSS BLOODCLOT, SIRISHA Time Seen by Provider: 12/20/18 17:08 Source: patient Mode of arrival: ambulatory Limitations: no limitations - History of Present Illness Initial comments: 38-year-old female presenting with concern that she is stopping breathing. She states that her daughter noticed last night that she was making a gurgling sound while sleeping and she was difficult to awaken. She states this happened multiple times throughout the night, as well as today when she was taking a nap. She called her primary care doctor's office and they instructed her to come to the emergency department to rule out blood clots. 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 She was seen here the other day for muscle spasms, which she states now or at her baseline. She admits to intermittent sporadic substernal nonradiating chest pain over the last 2 weeks. Patient states she did have a stress test many years ago that was negative. She does not have a history of hypertension, high cholesterol, nor tobacco abuse. Does not have a family history of early HI. Currently she is not having chest pain. He also admits to worse left lower extremity pain than her baseline chronic pain. He denies history of DVT/PE, recent surgery, active cancer, hormone use. - Related Data Home Medications Medication Instructions Recorded Confirmed Levalbuterol HCl [Xopenex 0.63 mg INHALATION RT-QID PRN 07/10/18 12/20/18 Nebulized] Levothyroxine Sodium [Synthroid] 125 mcg PO SUMOTUWETHSA 07/10/18 12/20/18 Medroxyprogesterone Acetate 150 mg IM Q84D 07/10/18 12/20/18 [Depo-Provera] Omalizumab [Xolair] 300 mg SQ Q28D 07/10/18 12/20/18 Carbidopa-Levodopa 25-100 mg 2.5 tab PO TID 08/08/18 12/20/18 [Sinemet 25-100 mg] Cholecalciferol [Vitamin D3 (25 1,000 unit PO DAILY 08/10/18 12/20/18 Mcg = 1000 Iu)] Baclofen [Lioresal] 30 mg PO TID 11/24/18 12/20/18 PARoxetine HCL [Paxil] 40 mg PO HS 11/24/18 12/20/18 traZODone HCL [Desyrel] 100 mg PO HS 11/24/18 12/20/18 Albuterol Inhaler [Ventolin Hfa 2 puff INHALATION RT-Q6H PRN 12/18/18 12/20/18 Inhaler] Botox Injection 1 dose IM Q90D 12/18/18 12/20/18 predniSONE 10 mg PO DAILY PRN 12/18/18 12/20/18 tiZANidine HCL [Zanaflex] 6 mg PO BID PRN 12/18/18 12/20/18 Methadone HCl [Dolophine HCl] 2.5 mg PO Q12H PRN 12/20/18 12/20/18 Previous Rx's Medication Instructions Recorded HYDROcodone/APAP 7.5-325MG [Smithers 1 tab PO Q6HR PRN #120 tab 07/28/18 7.5-325] Diazepam [Valium] 2 mg PO BID PRN #10 tab 12/18/18 Allergies Allergy/AdvReac Type Severity Reaction Status Date / Time albuterol AdvReac Rapid Verified 12/20/18 18:50 Heart Rate Review of Systems ROS Statement: Those systems with pertinent positive or pertinent negative responses have been documented in the HPI. Review of Systems Constitutional: Denies fever, chills Eyes: Denies change in vision, Denies pain Ears, nose, mouth, throat: Denies headaches, Denies sore throat Cardiovascular: Positive chest pain. Denies palpitations Respiratory: Positive shortness of breath, Denies cough Gastrointestinal: Denies abdominal pain. Denies nausea, vomiting, diarrhea. Genitourinary: Denies hematuria, Denies infections Musculoskeletal: Positive left leg pain, Denies swelling Integumentary: Denies rash Neurological: Denies headache, focal weakness, focal numbness Psychiatric: Denies anxiety, Denies depression Hematologic/Lymphatic: Denies easy bleeding or bruising ROS Other: All systems not noted in ROS Statement are negative. 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 HERNIATED DISC, cervical ca. 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 Surgery on her cervix for cancer, foot surgery, cysto/lithotripsy 08-26-18 @[facility] Past Anesthesia/Blood Transfusion Reactions: Postoperative Nausea & Vomiting (PONV) Past Psychological History: Anxiety, Depression Smoking Status: Never smoker Past Alcohol Use History: None Reported Past Drug Use History: None Reported - Past Family History Mother Family Medical History: Pneumonia Additional Family Medical History / Comment(s): Mother of pneumonia. Patient's son of brain cancer, last mother and father both liver cancer Son(s) Family Medical History: Cancer Additional Family Medical History / Comment(s): Son of brain cancer. Father Family Medical History: Cancer, Liver Disease Additional Family Medical History / Comment(s): Father has liver cancer with surgery. He has hepatitis. General Exam - General Exam Comments Initial Comments: General: Awake, alert, No acute Distress HENT: Normocephalic. Atraumatic Eyes: PERRL. EOMI. No scleral icterus. No injected conjunctiva Neck: Full ROM Chest/Lungs: Clear to auscultation bilaterally. No wheezing, rhonchi, or rales Cardiac: Regular rate, rhythm. No murmurs or rubs. No edema. Abdomen/GI: Soft, nontender, nondistended. No rebound, guarding, or rigidity. Musculoskeletal: Left upper extremity contracture. Full ROM of all other joints. Skin: Warm, dry, intact Neurologic: A/Ox3, no weakness, no sensory deficit, no abnormal gait, no coordination deficit. Sporadic generalized fasciculations Limitations: no limitations Course Vital Signs 12/20/18 12/20/18 17:00 19:51 Temperature 99.3 F 98.6 F Pulse Rate 107 H 86 Respiratory 20 19 Rate Blood Pressure 135/80 128/80 O2 Sat by Pulse 98 98 Oximetry EKG Findings - EKG Comments: EKG Findings:: EKG shows normal sinus rhythm at a rate of [address] segment elevation, depression. No prolonged QT/QTc or OR interval. No dysrythmia noted. Medical Decision Making - Medical Decision Making 38 yoF presenting with shortness of breath and leg pain. This exam the patient is awake, alert, no acute distress. VSS. Patient's Wells PE score is 1.5. Wells DVT score 0. Her laboratory Was negative for acute process per d-dimer was negative and her lower extremity Dopplers were negative. 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 She declined any steroids. She did not have any wheezing all she was on the department. Her chest pain had resolved . HEART score 1. She is stable for outpatient follow up with her doctor regarding her now resolved chest pain. No further emergent workup indicated. The patient was given return to ED instructions. They were instructed to follow up with their primary care provider. Stable for discharge at this time. - Lab Data Result diagrams: 12/20/18 17:45 12/20/18 17:45 Lab Results 12/20/18 12/20/18 12/20/18 Range/Units 17:45 17:45 17:45 WBC 5.4 (3.8-10.6) k/uL RBC 4.32 (3.80-5.40) m/uL Hgb 13.5 (11.4-16.0) gm/dL Hct 39.7 (34.0-46.0) % MCV 91.7 (80.0-100.0) fL MCH 31.1 (25.0-35.0) pg MCHC 34.0 (31.0-37.0) g/dL RDW 14.1 (11.5-15.5) % Plt Count 216 (150-450) k/uL Neutrophils % 56 % Lymphocytes % 32 % Monocytes % 7 % Eosinophils % 3 % Basophils % 1 % Neutrophils # 3.0 (1.3-7.7) k/uL Lymphocytes # 1.7 (1.0-4.8) k/uL Monocytes # 0.4 (0-1.0) k/uL Eosinophils # 0.2 (0-0.7) k/uL Basophils # 0.0 (0-0.2) k/uL D-Dimer 0.23 (<0.60) mg/L FEU Sodium 140 (137-145) mmol/L Potassium 4.5 (3.5-5.1) mmol/L Chloride 108 H (98-107) mmol/L Carbon Dioxide 23 (22-30) mmol/L Anion Gap 9 mmol/L BUN 12 (7-17) mg/dL Creatinine 0.97 (0.52-1.04) mg/dL Est GFR (CKD-EPI)AfAm 86 (>60 ml/min/1.73 sqM) Est GFR (CKD-EPI)NonAf 75 (>60 ml/min/1.73 sqM) Glucose 91 (74-99) mg/dL Calcium 9.6 (8.4-10.2) mg/dL Troponin I (0.000-0.034) ng/mL HCG, Qual Not Detected 12/20/18 Range/Units 17:45 WBC (3.8-10.6) k/uL RBC (3.80-5.40) m/uL Hgb (11.4-16.0) gm/dL Hct (34.0-46.0) % MCV (80.0-100.0) fL MCH (25.0-35.0) pg MCHC (31.0-37.0) g/dL RDW (11.5-15.5) % Plt Count (150-450) k/uL Neutrophils % % Lymphocytes % % Monocytes % % Eosinophils % % Basophils % % Neutrophils # (1.3-7.7) k/uL Lymphocytes # (1.0-4.8) k/uL Monocytes # (0-1.0) k/uL Eosinophils # (0-0.7) k/uL Basophils # (0-0.2) k/uL D-Dimer (<0.60) mg/L FEU Sodium (137-145) mmol/L Potassium (3.5-5.1) mmol/L Chloride (98-107) mmol/L Carbon Dioxide (22-30) mmol/L Anion Gap mmol/L BUN (7-17) mg/dL Creatinine (0.52-1.04) mg/dL Est GFR (CKD-EPI)AfAm (>60 ml/min/1.73 sqM) Est GFR (CKD-EPI)NonAf (>60 ml/min/1.73 sqM) Glucose (74-99) mg/dL Calcium (8.4-10.2) mg/dL Troponin I <0.012 (0.000-0.034) ng/mL HCG, Qual Disposition Clinical Impression: Shortness of breath, Chest pain Disposition: HOME SELF-CARE Condition: Good Instructions (If sedation given, give patient instructions): Sleep Apnea (DC), Shortness of Breath (ED) Additional Instructions: Follow-up with your tinsmith apprentice this week. Return to emergency department should her shortness of breath or chest pain worsen. Is patient prescribed a controlled substance at d/c from ED?: No Referrals: Slade Gonzalez MD [Primary Care Provider] - 1-2 days
[2018-12-20 18:15] LABS: Basophils % (A) 1 %; Eosinophils # (A) 0.2 k/uL (0-0.7); Eosinophils % (A) 3 %; HCT 39.7 % (34.0-46.0); HGB 13.5 gm/dL (11.4-16.0); Lymphocytes # (A) 1.7 k/uL (1.0-4.8); Lymphocytes % (A) 32 %; MCH 31.1 pg (25.0-35.0); MCV 91.7 fL (80.0-100.0); Mean Platelet Volume 6.6; Monocytes # (A) 0.4 k/uL (0-1.0); Monocytes % (A) 7 %; Neutrophils % (A) 56 %; Platelet Count 216 k/uL (150-450); RBC 4.32 m/uL (3.80-5.40); RDW 14.1 % (11.5-15.5); WBC 5.4 k/uL (3.8-10.6)
--- NOTE | 2018-12-20 18:23 | US ---
EXAMINATION TYPE: US venous doppler duplex LE DATE OF EXAM: 12/20/2018 5:31 PM COMPARISON: US 2017 CLINICAL HISTORY: 38-year-old female Pain. Leg pain and swelling SIDE PERFORMED: Bilateral TECHNIQUE: The lower extremity deep venous system is examined utilizing real time linear array sonog bob with graded compression, doppler sonography and color-flow sonography. FINDINGS: VESSELS IMAGED: External Iliac Vein (EIV) Common Femoral Vein Deep Femoral Vein Greater Saphenous Vein * Femoral Vein Popliteal Vein Small Saphenous Vein * Proximal Calf Veins (* superficial vessels) Right Leg: Appears negative for DVT Left Leg: Appears negative for DVT IMPRESSION: No evidence for DVT within the bilateral lower extremities imaged from the groin to the upper calves.
[2018-12-20 18:35] LABS: HCG,Qualitative Serum Not Detected
--- NOTE | 2018-12-20 18:35 | XR ---
EXAMINATION TYPE: XR chest 2V DATE OF EXAM: 12/20/2018 COMPARISON: 12/18/2018 HISTORY: 38-year-old female with a shortness of breath and pain TECHNIQUE: AP and lateral views FINDINGS: Heart normal size. Rightward patient rotation alters the normal cardial mediastinal contours. Aorta a nd pulmonary vasculature within normal limits. Central peribronchial cuffing. No consolidation or ple ural effusion. IMPRESSION: Bilateral central peribronchial cuffing could reflect bronchitis or asthma. Otherwise, no acute proce ss seen.
[2018-12-20 18:42] LABS: African American GFR (CKD) 86 (>60 ml/min/1.73 sqM); Anion Gap 9 mmol/L; Blood Urea Nitrogen 12 mg/dL (7-17); Calcium 9.6 mg/dL (8.4-10.2); Carbon Dioxide 23 mmol/L (22-30); Chloride 108 mmol/L (98-107); Glucose 91 mg/dL (74-99); Potassium 4.5 mmol/L (3.5-5.1); Sodium 140 mmol/L (137-145)
[2018-12-20 19:53] VITALS: BP 128/80; PULSE 86; RESP 19; TEMP 98.6
== END 2018-12-20 19:53 | disposition home or self-care (01) ==
LOC: EC 16:51
DX: R06.02 Shortness of breath (principal); R07.2 Precordial pain; G89.29 Other chronic pain; M79.605 Pain in left leg; J45.909 Unspecified asthma, uncomplicated; E07.9 Disorder of thyroid, unspecified; F41.9 Anxiety disorder, unspecified; F32.9 Major depressive disorder, single episode, unspecified; Z86.14 Personal history of Methicillin resistant Staphylococcus aureus infection; Z85.41 Personal history of malignant neoplasm of cervix uteri; Z53.29 Procedure and treatment not carried out because of patient's decision for other reasons; Z79.890 Hormone replacement therapy; Z79.52 Long term (current) use of systemic steroids; Z79.899 Other long term (current) drug therapy; Z88.8 Allergy status to other drugs, medicaments and biological substances
CPT/HCPCS: 36415; 71046; 80048; 84484; 84703; 85025; 85379; 93005; 93970; 99285

== ENCOUNTER → 2018-12-31 | Outpatient (CLI) | payer OTHER ==
[2018-12-31 14:13] VITALS: BP 145/83; PULSE 112; RESP 18
--- NOTE | 2018-12-31 14:56 | P.PAINPG ---
Subjective Progress Note Date: 12/31/18 This is follow-up visit for this patient with a history of severe and chronic low back pain secondary to lumbar degenerative disc diseases , lumbar spondylosis with facet arthropathy.Her pain has been reasonably well-controlled with a combination of medications and interventional pain procedures. She has been following with neurology at [facility]. At our last visit she was started on methadone but was found to be gurgling at night by her sister, so she does not want to continue the medication. She refilled her norco today. Her biggest complaint of pain is in her neck where she has undergone Botox injections at the neurologist however she continues to have neck spasm. She w ill be seeing urology at [facility] in January. On Saturday less than a week from today she will have hip replacement for avascular necrosis. Otherwise she reports no adverse effects from her medications. Objective - Vital Signs Vital signs: Vital Signs Temp Pulse 112 H 12/31/18 14:04 Resp 18 12/31/18 14:04 BP 145/83 12/31/18 14:04 Pulse Ox 98 12/31/18 14:04 Intake & Output 12/30/18 12/31/18 12/31/18 18:59 06:59 18:59 Weight 72.575 kg - Exam Vitals: Reviewed in EMR GENERAL: Patient is distressed, appearing to have severe spasms of neck and bilateral upper extremities PSYCH: Tearful. Awake, alert, and oriented SKIN: Skin color, texture, turgor normal, no rashes or lesions HEENT: Normocephalic, atraumatic. EOM intact CV: No pedal edema RESP: Respirations are unlabored, no audible wheezing GI: Abdomen non-distended MUSCULOSKELETAL: Neck: Tenderness to palpation over the cervical paraspinous muscles with intense muscle spasm of right sternocleidomastoid and multiple trigger points palpable. Extremities: Peripheral joint ROM is pain limited particularly bilateral hands and wrists. No edema or skin discolorations noted. Gait: Gait is slow, antalgic NEUR: Cranial nerves are grossly intact she has 4 out of 5 strength in the upper extremity Assessment and Plan Assessment: Intense generalized muscle spasms myofascial pain low back pain secondary to lumbar degenerative disc disease Chronic opiate use 1. Interventions none at this time 2. Physical Therapy: she may enter rehab after her hip replacement 3. Medications Chronic and current use of high-risk medication (opioids) can cause serious complications to overall health. Patient denies any side effects of the current pain medication and the current treatment/medication and the patient to do activity of daily living , Diagnoses, prognosis, treatment options, including but not limited to physical therapy, medication management, interventional therapies, and surgery, were discussed with the patient All the questions answered Patient was counseled not to drive or operate heavy equipment while using narcotic medication, and advised not to use alcohol She was given a refill for her Oliver and Zanaflex. Methadone was discontinued given her respiratory event. She was okayed to receive a short course of opiates from her surgeon for the surgery. She will see us back in clinic in 6-8 weeks. , PQRS Measure Charge Sheet PQRS Narrative: Smoking Status Never smoker Narcotic Agreement Date Signed 01/13/18 Blood Pressure 145/83 Pain Intensity [Right Neck] 5 Scale Used Numeric (1 - 10) Hx Alcohol Use (MH) No Home Medications: Ambulatory Orders Levalbuterol HCl [Xopenex Nebulized] 0.63 mg INHALATION RT-QID PRN 07/10/18 Levothyroxine Sodium [Synthroid] 125 mcg PO SUMOTUWETHSA 07/10/18 Medroxyprogesterone Acetate [Depo-Provera] 150 mg IM Q84D 07/10/18 Omalizumab [Xolair] 300 mg SQ Q28D 07/10/18 HYDROcodone/APAP 7.5-325MG [Oliver 7.5-325] 1 tab PO Q6HR PRN #120 tab 07/28/18 Carbidopa-Levodopa 25-100 mg [Sinemet 25-100 mg] 2.5 tab PO TID 08/08/18 Cholecalciferol [Vitamin D3 (25 Mcg = 1000 Iu)] 1,000 unit PO DAILY 08/10/18 Baclofen [Lioresal] 30 mg PO TID 11/24/18 PARoxetine HCL [Paxil] 40 mg PO HS 11/24/18 traZODone HCL [Desyrel] 100 mg PO HS 11/24/18 Albuterol Inhaler [Ventolin Hfa Inhaler] 2 puff INHALATION RT-Q6H PRN 12/18/18 Botox Injection 1 dose IM Q90D 12/18/18 predniSONE 10 mg PO DAILY PRN 12/18/18 tiZANidine HCL [Zanaflex] 6 mg PO BID PRN 12/18/18 Methadone HCl [Dolophine HCl] 2.5 mg PO Q12H PRN 12/20/18 Controlled Substance Measures - Controlled Substance Measures Is patient prescribed a controlled substance at discharge?: Yes When asked, does pt state using other controlled substances?: No If prescribed controlled substance>3 days was MAPS reviewed?: Yes If Rx opioid, was Start Talking consent form obtained?: No If opioid is for acute pain is fill amount 7 days or less?: No Was information provided regarding opioid addiction?: Yes
== END | disposition home or self-care (01) ==
LOC: PNWHC3 12:36
PROVIDERS: ATTEND Student in an Organized Health Care Education/Training Program
DX: M51.36 Other intervertebral disc degeneration, lumbar region (principal); M79.18 Myalgia, other site; F11.90 Opioid use, unspecified, uncomplicated; Z96.649 Presence of unspecified artificial hip joint; Z79.1 Long term (current) use of non-steroidal anti-inflammatories (NSAID); Z79.899 Other long term (current) drug therapy
CPT/HCPCS: 99211

== ENCOUNTER → 2019-02-16 | Outpatient (CLI) | payer OTHER ==
[2019-02-16 12:07] VITALS: BP 125/88; PULSE 109; RESP 18
--- NOTE | 2019-02-16 15:27 | P.PN ---
Subjective Progress Note Date: 02/16/19 This is follow-up visit for this patient with a history of severe and chronic low back pain secondary to lumbar degenerative disc diseases , lumbar spondylosis with facet arthropathy, We have done interventional pain procedures radiofrequency ablation of the medial branch lumbar area, and patient was complaining of midback pain , and she diagnosed with multilevel thoracic herniated disc disease at T10 11 T8 9 and T7 8,, patient complaining of severe muscle spasms mostly at night in the cervical area, patient diagnosed with left hip avascular necrosis , status post left hip replacement Patients currently on Waldron 7.5/325 every 6 hours, Lyrica 75 mg every 8 hours, and Zanaflex 4 mg every 8 hous , baclofen 30 mg every 8 hours he is getting prescription for baclofen from her neurologist,. She is complaining of severe muscle spasm with unknown etiology and she is being followed by neurologist at [facility] and she is currently referred to the [facility] for evaluation regarding the current deposit in the brain that possibly causing the muscle spasm Patient denies any side effects of the medication, denies excessive drowsiness or sleepiness, denies suicidal ideation, and reports that the current pain medication is helping to control the pain ,and improve activity of daily living Patient denies any motor or sensory deficit , patient denies any fever or night sweats, denies any change in the bowel movements or urination Physical Examinations : 1-Constitutional : Cooperative , not in acute distress . 2-HEENT : nech ; supple , no Lymphadenopathy , no Thyromegaly , normal thyroid size . eyes : no ptosis , no icterus, no photophobia . ENT : normal of hearing , normal oropharynx , no Thrush . 3- Respiratory : Chest clear to auscultations Bilaterally , no wheezing , no Rhonchi . 4- Cardiovascular : regular rate and rhythem , S1 , S2 , no S3 , no S4. 5- Gastrointestinal : abdomen soft no tenderness , bowel sounds positive all four quadrents , no organomegally . 6- Genitourinary : Defferred . 7- neurologic: Cranial nerve II to XII intact , no focal neurological deffecit . 8- Psychatric: alert , oriented X 3 , appropriate affect , intact judgment and insight . 9- Lymphatic : no Lymphadenopathy . 10- Musculoskeltal : exams of the cervical spine = motor strength normal bilateral upper extremities facet loading test cervical area positive. Multiple trigger points in the cervical paravertebral muscles rhomboid and trapezius muscles examined more than the left side exams of the Lumber spine = motor strength lower extremities ,thigh and legs decreased Assessment and plan = Chronic low back pain secondary to lumbar degenerative disc disease , lumbar spondylosis with facet arthropathy without myelopathy Upper back pain secondary to myofascial pain syndrome and cervical area. Midback pain secondary to thoracic herniated disc disease Severe muscle spasm with undetermined etiology chronic and current use of high-risk medication (Opioids). The patient was counseled about risk of opioid use, psychological risk associated with opioids and was orally counseled to not overuse , divert,or sell dictations to take medications as prescribed only , and to restore medication in safe location , the patient counseled against driving while using narcotic medications, and also not to use alcohol or any illicit recreational drugs, patient's verbalized understanding that the lack of compliance will result in failure to renew narcotic prescription and possible discharge from the clinic - diagnoses, prognosis, and treatment options including but not limited to physical therapy, surgical interventions, interventional therapies , and medication management including narcotics and adjuvant medication were discussed with the patient and all the questions answered Prescript refill for, Waldron 7.5/325 dispense 120 with one refill, Prescription for Zanaflex 4 mg every 8 hours dispense 90, patient could benefit from trigger point injections MAPS reviewed and is appropriate. Objective - Vital Signs Vital signs: Vital Signs Temp Pulse 109 H 02/16/19 12:00 Resp 18 02/16/19 12:00 BP 125/88 02/16/19 12:00 Pulse Ox 99 02/16/19 12:00
== END | disposition home or self-care (01) ==
LOC: PNWHC3 11:47
PROVIDERS: ATTEND Specialist
DX: G89.29 Other chronic pain (principal); M51.24 Other intervertebral disc displacement, thoracic region; M51.36 Other intervertebral disc degeneration, lumbar region; M47.816 Spondylosis without myelopathy or radiculopathy, lumbar region; M46.96 Unspecified inflammatory spondylopathy, lumbar region; M79.18 Myalgia, other site; Z79.891 Long term (current) use of opiate analgesic
CPT/HCPCS: 99211

== ENCOUNTER 2019-03-29 14:19 | Emergency (ER) | payer OTHER ==
[2019-03-29] MEDS ORDERED: KETOROLAC 30 MG/ML 1 ML VIAL IVP STA (14:57)
--- NOTE | 2019-03-29 14:57 | ED ---
General Adult HPI - General Chief complaint: Recheck/Abnormal Lab/Rx Stated complaint: Post-op complications/pain Time Seen by Provider: 03/29/19 14:40 Source: patient Mode of arrival: ambulatory Limitations: no limitations - History of Present Illness Initial comments: Patient is a 38-year-old female presenting to the emergency department with a chief complaint of left hip pain. Patient reports left hip arthroplasty 2.5 months ago. Patient reports she has been undergoing physical therapy and takes daily [place] for pain control. Patient reports yesterday she developed pain with ambulation which has increased since. Patient reports severe pain with ambulation, hip flexion and extension and abduction. Patient reports the left hip region is "more swollen than usual". Patient reports the pain radiates to the groin region. Patient denies any history of hernias. Patient denies any urinary or bowel symptoms. Patient denies any fevers but does report chills and night sweats. Patient denies any erythema, skin discoloration or trauma to the region. Patient denies any numbness or tingling along the left lower trauma noted. - Related Data Home Medications Medication Instructions Recorded Confirmed Levalbuterol HCl [Xopenex 0.63 mg INHALATION QID PRN 07/10/18 02/16/19 Nebulized] Levothyroxine Sodium [Synthroid] 125 mcg PO SUMOTUWETHSA 07/10/18 02/16/19 Medroxyprogesterone Acetate 150 mg IM Q84D 07/10/18 02/16/19 [Depo-Provera] Omalizumab [Xolair] 300 mg SQ Q28D 07/10/18 02/16/19 Carbidopa-Levodopa 25-100 mg 2.5 tab PO TID 08/08/18 02/16/19 [Sinemet 25-100 mg] Cholecalciferol [Vitamin D3 (25 1,000 unit PO DAILY 08/10/18 02/16/19 Mcg = 1000 Iu)] Baclofen [Lioresal] 30 mg PO TID 11/24/18 02/16/19 PARoxetine HCL [Paxil] 40 mg PO HS 11/24/18 02/16/19 traZODone HCL [Desyrel] 100 mg PO HS 11/24/18 02/16/19 Albuterol Inhaler [Ventolin Hfa 2 puff INHALATION Q6HR PRN 12/18/18 02/16/19 Inhaler] Botox Injection 1 dose IM Q90D 12/18/18 02/16/19 predniSONE 10 mg PO DAILY PRN 12/18/18 02/16/19 tiZANidine HCL [Zanaflex] 4 mg PO Q8HR PRN 12/18/18 02/16/19 Previous Rx's Medication Instructions Recorded HYDROcodone/APAP 7.5-325MG [[place] 1 tab PO Q6HR PRN #120 tab 07/28/18 7.5-325] Allergies Allergy/AdvReac Type Severity Reaction Status Date / Time albuterol AdvReac Rapid Verified 03/29/19 14:34 Heart Rate Review of Systems ROS Statement: Those systems with pertinent positive or pertinent negative responses have been documented in the HPI. ROS Other: All systems not noted in ROS Statement are negative. Past Medical History Past Medical History: Asthma, Cancer, GERD/Reflux, Seizure Disorder, Thyroid Disorder Additional Past Medical History / Comment(s): TACHYCARDIA, peptic ulcers, anemia."HAS BEEN ON VENTILATOR IN PAST D/T SEVERE ASTHMA ATTACK," BULEMIA-STATES GETTING BETTER, CONSTIPATION. HERNIATED DISC, cervical cancer. 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 Surgery on her cervix for cancer, rt foot surgery(Fx), cysto/lithotripsy , left hip replacement 12/2018 Past Anesthesia/Blood Transfusion Reactions: Postoperative Nausea & Vomiting (PONV) Past Psychological History: Anxiety, Depression Smoking Status: Never smoker Past Alcohol Use History: None Reported Past Drug Use History: None Reported - Past Family History Mother Family Medical History: Pneumonia Additional Family Medical History / Comment(s): Mother of pneumonia. Patient's son of brain cancer, last mother and father both liver cancer Son(s) Family Medical History: Cancer Additional Family Medical History / Comment(s): Son of brain cancer. Father Family Medical History: Cancer Additional Family Medical History / Comment(s): liver General Exam Limitations: no limitations General appearance: alert, in no apparent distress Head exam: Present: atraumatic, normocephalic, normal inspection Eye exam: Present: normal appearance Pupils: Present: normal accommodation ENT exam: Present: normal exam, mucous membranes moist, normal external ear exam Neck exam: Present: normal inspection, full ROM Respiratory exam: Present: normal lung sounds bilaterally Cardiovascular Exam: Present: regular rate, normal rhythm, normal heart sounds GI/Abdominal exam: Present: soft, normal bowel sounds. Absent: tenderness, guarding, rebound, hernia (No palpable hernias along the left angle region.) Extremities exam: Present: normal inspection, full ROM, normal capillary refill, other (+2 dorsalis pedis and posterior tibialis bilaterally.). Absent: pedal edema, calf tenderness (Negative Homans bilaterally.) Back exam: Present: normal inspection, full ROM. Absent: tenderness, CVA tenderness (R), CVA tenderness (L) Neurological exam: Present: alert, oriented X3 Psychiatric exam: Present: normal affect, normal mood Skin exam: Present: warm, intact, normal color Course Vital Signs 03/29/19 03/29/19 14:29 17:00 Temperature 98.5 F 98.1 F Pulse Rate 111 H 90 Respiratory 20 18 Rate Blood Pressure 155/91 136/94 O2 Sat by Pulse 99 99 Oximetry Medical Decision Making - Medical Decision Making Patient is a 30-year-old female presenting to emergency Department with a chief complaint of left hip pain. Physical examination does not indicate any swelling of region. The incision site has healed well. There is no erythema or any skin discoloration at the left hip. No palpable hernias noted along the left inguinal region. Patient was given Toradol for pain with some improvement in his symptoms. X-ray is negative for acute pathologies. CBC and CMP are unremarkable. Blood cultures pending. I suspect this to be postoperative pain. Patient advised to follow-up with the surgeon. Strict return parameters were thoroughly discussed with patient who is understanding and agreeable. Case discussed physician. - Lab Data Result diagrams: 03/29/19 15:10 03/29/19 15:10 Lab Results 03/29/19 03/29/19 Range/Units 15:10 15:10 WBC 6.2 (3.8-10.6) k/uL RBC 4.23 (3.80-5.40) m/uL Hgb 14.1 (11.4-16.0) gm/dL Hct 39.8 (34.0-46.0) % MCV 94.0 (80.0-100.0) fL MCH 33.2 (25.0-35.0) pg MCHC 35.3 (31.0-37.0) g/dL RDW 12.0 (11.5-15.5) % Plt Count 258 (150-450) k/uL Neutrophils % 76 % Lymphocytes % 17 % Monocytes % 4 % Eosinophils % 1 % Basophils % 0 % Neutrophils # 4.7 (1.3-7.7) k/uL Lymphocytes # 1.1 (1.0-4.8) k/uL Monocytes # 0.2 (0-1.0) k/uL Eosinophils # 0.1 (0-0.7) k/uL Basophils # 0.0 (0-0.2) k/uL Sodium 142 (137-145) mmol/L Potassium 3.9 (3.5-5.1) mmol/L Chloride 105 (98-107) mmol/L Carbon Dioxide 26 (22-30) mmol/L Anion Gap 11 mmol/L BUN 15 (7-17) mg/dL Creatinine 1.00 (0.52-1.04) mg/dL Est GFR (CKD-EPI)AfAm 83 (>60 ml/min/1.73 sqM) Est GFR (CKD-EPI)NonAf 72 (>60 ml/min/1.73 sqM) Glucose 87 (74-99) mg/dL Calcium 9.7 (8.4-10.2) mg/dL Total Bilirubin 0.4 (0.2-1.3) mg/dL AST 19 (14-36) U/L ALT 21 (9-52) U/L Alkaline Phosphatase 71 (38-126) U/L Total Protein 7.7 (6.3-8.2) g/dL Albumin 4.9 (3.5-5.0) g/dL Disposition Clinical Impression: Left hip pain Disposition: HOME SELF-CARE Condition: Stable Instructions (If sedation given, give patient instructions): Hip Pain (ED) Additional Instructions: Please follow up with the surgeon. Please return to emergency department if symptoms worsen. Alternate between Tylenol and ibuprofen for pain control. Is patient prescribed a controlled substance at d/c from ED?: No Referrals: Slade Gonzalez MD [Primary Care Provider] - 1-2 days Time of Disposition: 16:35
[2019-03-29 15:29] LABS: Basophils % (A) 0 %; Eosinophils # (A) 0.1 k/uL (0-0.7); Eosinophils % (A) 1 %; HCT 39.8 % (34.0-46.0); HGB 14.1 gm/dL (11.4-16.0); Lymphocytes # (A) 1.1 k/uL (1.0-4.8); Lymphocytes % (A) 17 %; MCH 33.2 pg (25.0-35.0); MCHC 35.3 g/dL (31.0-37.0); Mean Platelet Volume 5.6; Monocytes # (A) 0.2 k/uL (0-1.0); Monocytes % (A) 4 %; Neutrophils # (A) 4.7 k/uL (1.3-7.7); Neutrophils % (A) 76 %; Platelet Count 258 k/uL (150-450); RBC 4.23 m/uL (3.80-5.40); WBC 6.2 k/uL (3.8-10.6)
[2019-03-29 15:37] LABS: Albumin 4.9 g/dL (3.5-5.0); Calcium 9.7 mg/dL (8.4-10.2); Potassium 3.9 mmol/L (3.5-5.1); Total Bilirubin 0.4 mg/dL (0.2-1.3); Total Protein 7.7 g/dL (6.3-8.2)
--- NOTE | 2019-03-29 16:02 | XR ---
EXAMINATION TYPE: XR Hip Complete LT DATE OF EXAM: 03/29/2019 COMPARISON: NONE HISTORY: Hip surgery. TECHNIQUE: 2 views FINDINGS: There is left hip prosthesis. Components are in anatomic position. Sacroiliac joint appears intact. IMPRESSION: No complicating process seen.
[2019-03-29 17:19] VITALS: BP 136/94; PULSE 90; RESP 18; TEMP 98.1
== END 2019-03-29 17:20 | disposition home or self-care (01) ==
LOC: EC 14:19
DX: M25.552 Pain in left hip (principal); R10.30 Lower abdominal pain, unspecified; J45.909 Unspecified asthma, uncomplicated; E07.9 Disorder of thyroid, unspecified; F32.9 Major depressive disorder, single episode, unspecified; F41.9 Anxiety disorder, unspecified; Z88.8 Allergy status to other drugs, medicaments and biological substances; Z79.3 Long term (current) use of hormonal contraceptives; Z79.890 Hormone replacement therapy; Z79.899 Other long term (current) drug therapy; Z85.41 Personal history of malignant neoplasm of cervix uteri; Z86.14 Personal history of Methicillin resistant Staphylococcus aureus infection; Z96.642 Presence of left artificial hip joint; Z98.890 Other specified postprocedural states
CPT/HCPCS: 36415; 80053; 85025; 73502; 99284; 96374; J1885

== ENCOUNTER → 2019-04-13 | Outpatient (CLI) | payer OTHER ==
[2019-04-13 14:26] VITALS: BP 131/93; PULSE 117; RESP 20
--- NOTE | 2019-04-13 15:15 | P.PAINPG ---
Subjective Progress Note Date: 04/13/19 This is a follow-up for 38-year-old female who presents with cervical muscle spasms, chronic low back pain, mid back pain. She states that she recently did have some Botox injections in the cervical area and it is slightly helping. She also has left hip avascular necrosis from the steroids from asthma ex acerbations, and she recently had a hip replacement which she is recovering from wall. Otherwise she endorses no new complaints, she denies any side effects from the medications we are providing her. Objective - Vital Signs Vital signs: Vital Signs Temp Pulse 117 H 04/13/19 13:50 Resp 20 04/13/19 13:50 BP 131/93 04/13/19 13:50 Pulse Ox 117 H 04/13/19 13:50 - Exam Vital Signs: Reviewed in EMR GENERAL: Well appearing, in no acute distress, PSYCH: Mood and affect is appropriate. Awake, alert, and oriented SKIN: Skin color, texture, turgor normal, no rashes or lesions HEENT: Normocephalic, atraumatic. EOM intact CV: No pedal edema RESP: Respirations are unlabored, no audible wheezing GI: Abdomen non-distended MUSCULOSKELETAL: She does appear to have contracted sternocleidomastoid on the right side, her head is tilted to the right Neck: Tense neck muscles Gait: She uses a walker to walk NEUR: No loss of sensation is noted. Cranial nerves are grossly intact. Assessment and Plan Assessment: Assessment: 1. Severe muscle spasm of undetermined etiology 2. Lumbar spondylosis 3. Tonic opiate use 4. Avascular necrosis of the hip status post hip replacement Plan: 1. Explanation: Opioid and psychological risk scores were reviewed. Diagnoses, prognoses, and multiple treatment options including but not limited to physical therapy, interventional therapies, adjuvant medical therapies, narcotic medication therapies, and surgery were discussed with the patient and all questions were answered to the patient's satisfaction. 2. Opioid agreement: None 3. Counseling: She was advised to stay active active as possible 4. Procedures: None 5. Consultations: None 6. Investigations: None at this time 7. Medications: Her [place] and Zanaflex refilled 8. Disposition: 8 weeks , PQRS Measure Charge Sheet Measure #47: Advance Care Plan: Advance care planning discussed & documented, pt chose/unable to give Measure #412: Opioid Treatment Agreement: Documented signed opioid trtmnt agreemnt min once during opioid trtmnt Measure #408: Opioid Therapy Follow-up Evaluation: Patient had f/u eval minimum every 3 months during opioid therapy Measure #131: Pain Assessment & Follow-up: Pain positive & plan documented, Follow-up scheduled PQRS Narrative: Smoking Status Never smoker Narcotic Agreement Date Signed 01/13/18 Blood Pressure 131/93 Pain Intensity [Chest] 4 Scale Used Numeric (1 - 10) Hx Alcohol Use (MH) No Home Medications: Ambulatory Orders Levalbuterol HCl [Xopenex Nebulized] 0.63 mg INHALATION QID PRN 07/10/18 Levothyroxine Sodium [Synthroid] 125 mcg PO SUMOTUWETHSA 07/10/18 Medroxyprogesterone Acetate [Depo-Provera] 150 mg IM Q84D 07/10/18 Omalizumab [Xolair] 300 mg SQ Q28D 07/10/18 HYDROcodone/APAP 7.5-325MG [[place] 7.5-325] 1 tab PO Q6HR PRN #120 tab 07/28/18 Cholecalciferol [Vitamin D3 (25 Mcg = 1000 Iu)] 1,000 unit PO DAILY 08/10/18 PARoxetine HCL [Paxil] 40 mg PO HS 11/24/18 traZODone HCL [Desyrel] 100 mg PO HS 11/24/18 Albuterol Inhaler [Ventolin Hfa Inhaler] 2 puff INHALATION Q6HR PRN 12/18/18 Botox Injection 1 dose IM Q90D 12/18/18 predniSONE 10 mg PO DAILY PRN 12/18/18 tiZANidine HCL [Zanaflex] 6 mg PO Q8HR PRN 12/18/18 Methylphenidate HCl [Concerta] 36 mg PO DAILY 04/09/19 Controlled Substance Measures - Controlled Substance Measures Is patient prescribed a controlled substance at discharge?: Yes When asked, does pt state using other controlled substances?: No If prescribed controlled substance>3 days was MAPS reviewed?: Yes Was information provided regarding opioid addiction?: No
== END | disposition home or self-care (01) ==
LOC: PNWHC3 13:30
PROVIDERS: ATTEND Student in an Organized Health Care Education/Training Program
DX: M47.816 Spondylosis without myelopathy or radiculopathy, lumbar region (principal); M62.838 Other muscle spasm; F11.90 Opioid use, unspecified, uncomplicated; M87.859 Other osteonecrosis, unspecified femur; Z79.52 Long term (current) use of systemic steroids; Z79.891 Long term (current) use of opiate analgesic; Z79.890 Hormone replacement therapy; Z79.899 Other long term (current) drug therapy; Z96.649 Presence of unspecified artificial hip joint
CPT/HCPCS: 80307; G0482; G0463; 99211

== ENCOUNTER 2019-04-15 11:02 | Emergency (ER) | payer OTHER ==
[2019-04-15 11:08] VITALS: RESP 18
[2019-04-15] MEDS ORDERED: ONDANSETRON 4 MG/2 ML VIAL IVP STA (11:38)
[2019-04-15] MEDS ORDERED: SODIUM CHLORIDE 0.9% 1,000 ML IV STA (11:38)
[2019-04-15] MEDS ORDERED: FAMOTIDINE 20 MG/2 ML VIAL IV STA (11:38)
[2019-04-15] MEDS ORDERED: SODIUM CHLORIDE 0.9% 500 ML 500 ML IV STA (11:38)
[2019-04-15] MEDS ORDERED: MORPHINE SULFATE 4 MG/ML SYRINGE IV STA (11:43)
--- NOTE | 2019-04-15 11:43 | ED ---
General Adult HPI - General Chief complaint: Nausea/Vomiting/Diarrhea Stated complaint: asthma Time Seen by Provider: 04/15/19 11:21 Source: patient, RN notes reviewed Mode of arrival: wheelchair Limitations: no limitations - History of Present Illness Initial comments: Patient is a pleasant 38-year-old female presenting to the emergency Department with multiple complaints. Patient states her asthma is acting up on her. Patient has chronic severe asthma and has been intubated previously. Patient states she is able to control her. Patient states it is not too bad at this time. Patient does have some associated chest tightness which is normal for her. Patient also complains of severe nausea. Patient states she has had limited oral intake secondary to nausea. There has been minimal emesis, more dry heaves. Patient has been unable to take her medications, and is mostly concerned regarding her pain medication. Patient takes pain medication from chronic hip pain from chronic steroid use. Patient is also having some diarrhea. Patient has occasional mild abdominal cramping. No fevers. - Related Data Home Medications Medication Instructions Recorded Confirmed Levalbuterol HCl [Xopenex 0.63 mg INHALATION QID PRN 07/10/18 04/13/19 Nebulized] Levothyroxine Sodium [Synthroid] 125 mcg PO SUMOTUWETHSA 07/10/18 04/13/19 Medroxyprogesterone Acetate 150 mg IM Q84D 07/10/18 04/13/19 [Depo-Provera] Omalizumab [Xolair] 300 mg SQ Q28D 07/10/18 04/13/19 Cholecalciferol [Vitamin D3 (25 1,000 unit PO DAILY 08/10/18 04/13/19 Mcg = 1000 Iu)] PARoxetine HCL [Paxil] 40 mg PO HS 11/24/18 04/13/19 traZODone HCL [Desyrel] 100 mg PO HS 11/24/18 04/13/19 Albuterol Inhaler [Ventolin Hfa 2 puff INHALATION Q6HR PRN 12/18/18 04/13/19 Inhaler] Botox Injection 1 dose IM Q90D 12/18/18 04/13/19 predniSONE 10 mg PO DAILY PRN 12/18/18 04/13/19 tiZANidine HCL [Zanaflex] 6 mg PO Q8HR PRN 12/18/18 04/13/19 Methylphenidate HCl [Concerta] 36 mg PO DAILY 04/09/19 04/13/19 Previous Rx's Medication Instructions Recorded HYDROcodone/APAP 7.5-325MG [[place] 1 tab PO Q6HR PRN #120 tab 07/28/18 7.5-325] Allergies Allergy/AdvReac Type Severity Reaction Status Date / Time albuterol AdvReac Rapid Verified 04/15/19 11:08 Heart Rate Review of Systems ROS Statement: Those systems with pertinent positive or pertinent negative responses have been documented in the HPI. ROS Other: All systems not noted in ROS Statement are negative. Constitutional: Denies: fever Eyes: Denies: vision change ENT: Denies: throat pain Respiratory: Reports: cough, dyspnea Cardiovascular: Reports: chest pain Endocrine: Reports: fatigue Gastrointestinal: Reports: nausea, vomiting, diarrhea Genitourinary: Denies: dysuria Musculoskeletal: Reports: arthralgia Skin: Denies: rash Neurological: Reports: headache. Denies: weakness Past Medical History Past Medical History: Asthma, Cancer, GERD/Reflux, Seizure Disorder, Thyroid Disorder Additional Past Medical History / Comment(s): TACHYCARDIA, peptic ulcers, anemia."HAS BEEN ON VENTILATOR IN PAST D/T SEVERE ASTHMA ATTACK," BULEMIA-STATES GETTING BETTER, CONSTIPATION. HERNIATED DISC, cervical cancer. 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 Surgery on her cervix for cancer, rt foot surgery(Fx), cysto/lithotripsy , left hip replacement 12/2018 Past Anesthesia/Blood Transfusion Reactions: Postoperative Nausea & Vomiting (PONV) Past Psychological History: Anxiety, Depression Smoking Status: Never smoker Past Alcohol Use History: None Reported Past Drug Use History: None Reported - Past Family History Mother Family Medical History: Pneumonia Additional Family Medical History / Comment(s): Mother of pneumonia. Patient's son of brain cancer, last mother and father both liver cancer Son(s) Family Medical History: Cancer Additional Family Medical History / Comment(s): Son of brain cancer. Father Family Medical History: Cancer Additional Family Medical History / Comment(s): liver General Exam Limitations: no limitations General appearance: alert, in no apparent distress Head exam: Present: atraumatic Eye exam: Present: normal appearance, PERRL ENT exam: Present: normal oropharynx Neck exam: Present: normal inspection Respiratory exam: Present: rhonchi. Absent: chest wall tenderness Cardiovascular Exam: Present: normal rhythm, tachycardia Expanded Peripheral pulses: 2+: Radial (R), Radial (L), Dorsalis Pedis (R), Dorsalis Pedis (L) GI/Abdominal exam: Present: soft, normal bowel sounds. Absent: distended, tenderness, guarding, rebound, rigid, pulsatile mass Extremities exam: Present: normal inspection. Absent: pedal edema, calf tenderness Neurological exam: Present: alert Psychiatric exam: Present: normal affect, normal mood Skin exam: Present: normal color Course Vital Signs 04/15/19 04/15/19 04/15/19 11:05 11:57 12:08 Temperature 97.4 F L Pulse Rate 113 H 80 84 Respiratory 18 Rate Blood Pressure 127/88 O2 Sat by Pulse 99 Oximetry 04/15/19 12:30 Temperature Pulse Rate 89 Respiratory 18 Rate Blood Pressure 122/82 O2 Sat by Pulse 97 Oximetry EKG Findings - EKG Comments: EKG Findings:: Normal sinus rhythm at 90. GA 138. QRS 68. QT 42. QTC 418. Normal axis. Normal QRS. No acute ST change. Medical Decision Making - Medical Decision Making Patient reevaluated and feeling much better following fluids. Patient updated on results and need for follow-up. Patient states she has Zofran at home and does not need that. - Lab Data Result diagrams: 04/15/19 11:56 04/15/19 11:56 Lab Results 04/15/19 04/15/19 04/15/19 Range/Units 11:56 11:56 11:56 WBC 9.5 (3.8-10.6) k/uL RBC 4.20 (3.80-5.40) m/uL Hgb 13.9 (11.4-16.0) gm/dL Hct 38.7 (34.0-46.0) % MCV 92.3 (80.0-100.0) fL MCH 33.2 (25.0-35.0) pg MCHC 36.0 (31.0-37.0) g/dL RDW 12.7 (11.5-15.5) % Plt Count 288 (150-450) k/uL Neutrophils % 81 % Lymphocytes % 13 % Monocytes % 4 % Eosinophils % 1 % Basophils % 0 % Neutrophils # 7.7 (1.3-7.7) k/uL Lymphocytes # 1.3 (1.0-4.8) k/uL Monocytes # 0.4 (0-1.0) k/uL Eosinophils # 0.1 (0-0.7) k/uL Basophils # 0.0 (0-0.2) k/uL PT 10.2 (9.0-12.0) sec INR 0.9 (<1.2) APTT 23.4 (22.0-30.0) sec Sodium 143 (137-145) mmol/L Potassium 4.0 (3.5-5.1) mmol/L Chloride 106 (98-107) mmol/L Carbon Dioxide 27 (22-30) mmol/L Anion Gap 10 mmol/L BUN 11 (7-17) mg/dL Creatinine 0.99 (0.52-1.04) mg/dL Est GFR (CKD-EPI)AfAm 84 (>60 ml/min/1.73 sqM) Est GFR (CKD-EPI)NonAf 73 (>60 ml/min/1.73 sqM) Glucose 107 H (74-99) mg/dL Calcium 9.7 (8.4-10.2) mg/dL Total Bilirubin 0.4 (0.2-1.3) mg/dL AST 19 (14-36) U/L ALT 18 (9-52) U/L Alkaline Phosphatase 67 (38-126) U/L Troponin I (0.000-0.034) ng/mL Total Protein 7.5 (6.3-8.2) g/dL Albumin 4.8 (3.5-5.0) g/dL Amylase 82 (30-110) U/L Lipase 66 (23-300) U/L Urine Color Urine Appearance (Clear) Urine pH (5.0-8.0) Ur Specific [place] (1.001-1.035) Urine Protein (Negative) Urine Glucose (UA) (Negative) Urine Ketones (Negative) Urine Blood (Negative) Urine Nitrite (Negative) Urine Bilirubin (Negative) Urine Urobilinogen (<2.0) mg/dL Ur Leukocyte Esterase (Negative) Urine RBC (0-5) /hpf Urine WBC (0-5) /hpf Ur Squamous Epith Cells (0-4) /hpf Urine Bacteria (None) /hpf Urine Mucus (None) /hpf 04/15/19 04/15/19 Range/Units 11:56 11:56 WBC (3.8-10.6) k/uL RBC (3.80-5.40) m/uL Hgb (11.4-16.0) gm/dL Hct (34.0-46.0) % MCV (80.0-100.0) fL MCH (25.0-35.0) pg MCHC (31.0-37.0) g/dL RDW (11.5-15.5) % Plt Count (150-450) k/uL Neutrophils % % Lymphocytes % % Monocytes % % Eosinophils % % Basophils % % Neutrophils # (1.3-7.7) k/uL Lymphocytes # (1.0-4.8) k/uL Monocytes # (0-1.0) k/uL Eosinophils # (0-0.7) k/uL Basophils # (0-0.2) k/uL PT (9.0-12.0) sec INR (<1.2) APTT (22.0-30.0) sec Sodium (137-145) mmol/L Potassium (3.5-5.1) mmol/L Chloride (98-107) mmol/L Carbon Dioxide (22-30) mmol/L Anion Gap mmol/L BUN (7-17) mg/dL Creatinine (0.52-1.04) mg/dL Est GFR (CKD-EPI)AfAm (>60 ml/min/1.73 sqM) Est GFR (CKD-EPI)NonAf (>60 ml/min/1.73 sqM) Glucose (74-99) mg/dL Calcium (8.4-10.2) mg/dL Total Bilirubin (0.2-1.3) mg/dL AST (14-36) U/L ALT (9-52) U/L Alkaline Phosphatase (38-126) U/L Troponin I <0.012 (0.000-0.034) ng/mL Total Protein (6.3-8.2) g/dL Albumin (3.5-5.0) g/dL Amylase (30-110) U/L Lipase (23-300) U/L Urine Color Yellow Urine Appearance Cloudy H (Clear) Urine pH 6.0 (5.0-8.0) Ur Specific [place] 1.026 (1.001-1.035) Urine Protein Trace H (Negative) Urine Glucose (UA) Negative (Negative) Urine Ketones Negative (Negative) Urine Blood Small H (Negative) Urine Nitrite Negative (Negative) Urine Bilirubin Negative (Negative) Urine Urobilinogen <2.0 (<2.0) mg/dL Ur Leukocyte Esterase Negative (Negative) Urine RBC 29 H (0-5) /hpf Urine WBC 1 (0-5) /hpf Ur Squamous Epith Cells 8 H (0-4) /hpf Urine Bacteria Rare H (None) /hpf Urine Mucus Moderate H (None) /hpf - Radiology Data Radiology results: image reviewed (This x-ray shows no acute process) Disposition Clinical Impression: Nausea, Asthma Disposition: HOME SELF-CARE Condition: Stable Instructions (If sedation given, give patient instructions): Acute Nausea and Vomiting (ED), Dehydration (ED), Asthma (ED) Additional Instructions: Please follow-up with primary care physician in the next couple days for recheck. Return for difficulty breathing, chest or abdominal pain, not tolerating oral intake, worsening symptoms or any other concerns. Is patient prescribed a controlled substance at d/c from ED?: No Referrals: Slade Gonzalez MD [Primary Care Provider] - 1-2 days Time of Disposition: 13:30
[2019-04-15] MEDS ORDERED: IPRATROPIUM 0.5 MG/2.5 ML NEBU INHALATION STA (11:44)
[2019-04-15 12:30] LABS: Albumin 4.8 g/dL (3.5-5.0); Calcium 9.7 mg/dL (8.4-10.2); Total Bilirubin 0.4 mg/dL (0.2-1.3); Total Protein 7.5 g/dL (6.3-8.2)
--- NOTE | 2019-04-15 12:34 | XR ---
EXAMINATION TYPE: XR chest 2V DATE OF EXAM: 04/15/2019 COMPARISON: NONE TECHNIQUE: PA and lateral views submitted. HISTORY: dyspnea. FINDINGS: The lungs are clear and there is no pneumothorax, pleural effusion, or focal pneumonia. Hypertrophi c and degenerative change of the spine. No overt failure. IMPRESSION: 1. No acute process.
[2019-04-15 12:37] LABS: Basophils % (A) 0 %; Eosinophils # (A) 0.1 k/uL (0-0.7); Eosinophils % (A) 1 %; HCT 38.7 % (34.0-46.0); HGB 13.9 gm/dL (11.4-16.0); Lymphocytes # (A) 1.3 k/uL (1.0-4.8); Lymphocytes % (A) 13 %; MCH 33.2 pg (25.0-35.0); MCV 92.3 fL (80.0-100.0); Mean Platelet Volume 5.5; Monocytes # (A) 0.4 k/uL (0-1.0); Monocytes % (A) 4 %; Neutrophils # (A) 7.7 k/uL (1.3-7.7); Neutrophils % (A) 81 %; Platelet Count 288 k/uL (150-450); RDW 12.7 % (11.5-15.5); WBC 9.5 k/uL (3.8-10.6)
[2019-04-15 12:50] LABS: Appearance,Urine Cloudy (Clear); Bacteria,Urine Rare /hpf; Bilirubin,Urine Negative (Negative); Blood,Urine Small (Negative); Color,Urine Yellow; Glucose,Urine (UA) Negative (Negative); Ketones,Urine Negative (Negative); Leukocyte Esterase,Urine Negative (Negative); Mucus,Urine Moderate /hpf; Nitrite,Urine Negative (Negative); Protein,Urine Trace (Negative); RBC,Urine 29 /hpf (0-5); Specific Gravity,Urine 1.026 (1.001-1.035); Squamous Epithelial Cell,Urine 8 /hpf (0-4); Urobilinogen,Urine <2.0 mg/dL (<2.0)
[2019-04-15 12:51] LABS: INR 0.9 (<1.2); Partial Thromboplastin Time 23.4 sec (22.0-30.0); Prothrombin Time 10.2 sec (9.0-12.0)
[2019-04-15 13:45] VITALS: BP 125/87; PULSE 74; TEMP 98
== END 2019-04-15 13:45 | disposition home or self-care (01) ==
LOC: EC 11:02
DX: J45.909 Unspecified asthma, uncomplicated (principal); R11.2 Nausea with vomiting, unspecified; R00.0 Tachycardia, unspecified; R19.7 Diarrhea, unspecified; F41.9 Anxiety disorder, unspecified; F32.9 Major depressive disorder, single episode, unspecified; E07.9 Disorder of thyroid, unspecified; G89.29 Other chronic pain; Z79.52 Long term (current) use of systemic steroids; Z79.51 Long term (current) use of inhaled steroids; Z79.890 Hormone replacement therapy; Z79.3 Long term (current) use of hormonal contraceptives; Z79.899 Other long term (current) drug therapy; Z88.8 Allergy status to other drugs, medicaments and biological substances; Z85.41 Personal history of malignant neoplasm of cervix uteri; Z98.84 Bariatric surgery status; Z96.642 Presence of left artificial hip joint; Z86.14 Personal history of Methicillin resistant Staphylococcus aureus infection
CPT/HCPCS: 36415; 94640; 93005; 80053; 82150; 83690; 84484; 85025; 85610; 85730; 81001; 71046; 99284; 96374; 96375 ×2; 96361; J2270; J2405

== ENCOUNTER 2019-04-30 08:51 | Emergency (ER) | payer OTHER ==
[2019-04-30] MEDS ORDERED: SODIUM CHLORIDE 0.9% 2,000 ML IV STA (09:37)
[2019-04-30] MEDS ORDERED: ONDANSETRON 4 MG/2 ML VIAL IVP STA (09:37)
[2019-04-30 10:10] LABS: Appearance,Urine Clear (Clear); Bilirubin,Urine Negative (Negative); Blood,Urine Trace (Negative); Color,Urine Yellow; Glucose,Urine (UA) Negative (Negative); Ketones,Urine Negative (Negative); Leukocyte Esterase,Urine Negative (Negative); Mucus,Urine Few /hpf; Nitrite,Urine Negative (Negative); PH, Urine 5.5 (5.0-8.0); Protein,Urine Trace (Negative); RBC,Urine <1 /hpf (0-5); Specific Gravity,Urine 1.024 (1.001-1.035); Squamous Epithelial Cell,Urine 1 /hpf (0-4); Urobilinogen,Urine <2.0 mg/dL (<2.0)
[2019-04-30 10:11] LABS: Basophils % (A) 0 %; Eosinophils # (A) 0.1 k/uL (0-0.7); Eosinophils % (A) 1 %; HCT 37.1 % (34.0-46.0); HGB 13.1 gm/dL (11.4-16.0); Lymphocytes # (A) 1.3 k/uL (1.0-4.8); Lymphocytes % (A) 20 %; MCH 32.9 pg (25.0-35.0); MCHC 35.3 g/dL (31.0-37.0); MCV 93.3 fL (80.0-100.0); Mean Platelet Volume 5.7; Monocytes # (A) 0.2 k/uL (0-1.0); Monocytes % (A) 3 %; Neutrophils # (A) 4.9 k/uL (1.3-7.7); Neutrophils % (A) 75 %; Platelet Count 251 k/uL (150-450); RBC 3.97 m/uL (3.80-5.40); RDW 12.5 % (11.5-15.5); WBC 6.6 k/uL (3.8-10.6)
[2019-04-30 10:16] LABS: ALT 20 U/L (9-52); AST 16 U/L (14-36); African American GFR (CKD) >90 (>60 ml/min/1.73 sqM); Albumin 4.5 g/dL (3.5-5.0); Alkaline Phosphatase 61 U/L (38-126); Anion Gap 8 mmol/L; Blood Urea Nitrogen 12 mg/dL (7-17); Calcium 9.5 mg/dL (8.4-10.2); Carbon Dioxide 25 mmol/L (22-30); Chloride 109 mmol/L (98-107); Glucose 101 mg/dL (74-99); Non-African American GFR(CKD) 80 (>60 ml/min/1.73 sqM); Potassium 3.3 mmol/L (3.5-5.1); Sodium 142 mmol/L (137-145); Total Bilirubin 0.5 mg/dL (0.2-1.3); Total Protein 6.9 g/dL (6.3-8.2)
--- NOTE | 2019-04-30 11:08 | CT ---
EXAMINATION TYPE: CT abdomen pelvis w con DATE OF EXAM: 04/30/2019 COMPARISON: 08/04/2018 INDICATION: Diarrhea, hypoglycemia DLP: 946.4 mGycm, Automated exposure control for dose reduction was used. CONTRAST: 100 ml mL of Isovue 300. Study performed without Oral Contrast TECHNIQUE: Axial images were obtained from above the diaphragm to the pubic rami in the axial plane a t 5 mm thick sections. Reconstructed images are reviewed on the computer in the coronal plane. FINDINGS: Limited CT sections are obtained the lung bases. The lung bases are clear. There is a gastric lap b and evident within the epigastric region. CT ABDOMEN: Liver: Normal Spleen: Normal Pancreas: Normal Adrenal glands: The adrenal glands are normal. Gallbladder: Surgically absent Kidneys: No masses are evident. No hydronephrosis is present. No cysts are present. Delayed images were obtained through the kidneys, which remain unremarkable. Punctate nonobstructing renal stone on the left is not excluded. This appears to been present previously. Previous right renal stones are n ot identified. Aorta: Normal Inferior vena cava: Normal. CT PELVIS: Loops of bowel within the abdomen and pelvis are normal. The study is performed without oral cont rast limiting bowel evaluation. Appendix: Normal as visualized. Urinary bladder: Normal. Genitourinary structures: Uterus appears slightly heterogenous. Underlying uterine fibroids are not e xcluded. Adnexal regions appear normal. No free fluid is within the pelvis. Osseous structures: No suspicious lytic or sclerotic lesions. The left hip prosthesis present. This c auses beam hardening artifact in some limitation of the lower pelvis evaluation. IMPRESSIONS: 1. No suspicious acute changes within the abdomen or pelvis. 2. Uterine fibroid may be present. This can be evaluated with ultrasound. 3 suspected 0.2 cm mid left renal stone without evidence of hydronephrosis. No hydroureter is evident.
[2019-04-30] MEDS ORDERED: POTASSIUM CHLORIDE ER 20 MEQ TAB.ER PO STA (11:09)
--- NOTE | 2019-04-30 11:13 | ED ---
General Adult HPI - General Chief complaint: Nausea/Vomiting/Diarrhea Stated complaint: Diarrhea,Hypoglycemia Time Seen by Provider: 04/30/19 09:05 Source: patient Mode of arrival: wheelchair Limitations: no limitations - History of Present Illness Initial comments: The patient is a 38-year-old female with past medical history of GERD, asthma, migraines who presents to the emergency room with reported diarrhea 2 weeks. She states that she recently was diagnosed with bronchitis and was on antibiotics and steroids. States that she finished a course of antibiotics (bactrim) and afterwards developed diarrhea. Does have a history of C. diff in the past after being on antibiotics. She is also on chronic steroids. She admits that the diarrhea is yellow watery episodes per day. Denies any fevers or chills. Denies any melanotic stools or hematochezia. She also reports that she's been seeing her pv design engineer who has been working on increasing her dose of thyroid medication. Denies history of hyperthyroidism. She admits to left upper and lower quadrant abdominal pain as well as left flank pain. Denies any changes in her urination to include dysuria, hematuria or difficult voiding. Admits to nausea without vomiting denies any abnormal vaginal bleeding or discharge. There are no alleviating, precipitating or modifying factors - Related Data Home Medications Medication Instructions Recorded Confirmed Levalbuterol HCl [Xopenex 0.63 mg INHALATION QID PRN 07/10/18 04/13/19 Nebulized] Levothyroxine Sodium [Synthroid] 125 mcg PO SUMOTUWETHSA 07/10/18 04/13/19 Medroxyprogesterone Acetate 150 mg IM Q84D 07/10/18 04/13/19 [Depo-Provera] Omalizumab [Xolair] 300 mg SQ Q28D 07/10/18 04/13/19 Cholecalciferol [Vitamin D3 (25 1,000 unit PO DAILY 08/10/18 04/13/19 Mcg = 1000 Iu)] PARoxetine HCL [Paxil] 40 mg PO HS 11/24/18 04/13/19 traZODone HCL [Desyrel] 100 mg PO HS 11/24/18 04/13/19 Albuterol Inhaler [Ventolin Hfa 2 puff INHALATION Q6HR PRN 12/18/18 04/13/19 Inhaler] Botox Injection 1 dose IM Q90D 12/18/18 04/13/19 predniSONE 10 mg PO DAILY PRN 12/18/18 04/13/19 tiZANidine HCL [Zanaflex] 6 mg PO Q8HR PRN 12/18/18 04/13/19 Methylphenidate HCl [Concerta] 36 mg PO DAILY 04/09/19 04/13/19 Previous Rx's Medication Instructions Recorded HYDROcodone/APAP 7.5-325MG [Horton 1 tab PO Q6HR PRN #120 tab 07/28/18 7.5-325] Vancomycin Oral Solution 125 mg PO Q6HR #100 ml 04/30/19 Allergies Allergy/AdvReac Type Severity Reaction Status Date / Time albuterol AdvReac Rapid Verified 04/30/19 09:08 Heart Rate Review of Systems ROS Statement: Those systems with pertinent positive or pertinent negative responses have been documented in the HPI. ROS Other: All systems not noted in ROS Statement are negative. Past Medical History Past Medical History: Asthma, Cancer, GERD/Reflux, Seizure Disorder, Thyroid Disorder Additional Past Medical History / Comment(s): TACHYCARDIA, peptic ulcers, anemia."HAS BEEN ON VENTILATOR IN PAST D/T SEVERE ASTHMA ATTACK," BULEMIA-STATES GETTING BETTER, CONSTIPATION. HERNIATED DISC, cervical cancer. 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 Surgery on her cervix for cancer, rt foot surgery(Fx), cysto/lithotripsy , left hip replacement 12/2018 Past Anesthesia/Blood Transfusion Reactions: Postoperative Nausea & Vomiting (PONV) Past Psychological History: Anxiety, Depression Smoking Status: Never smoker Past Alcohol Use History: None Reported Past Drug Use History: None Reported - Past Family History Mother Family Medical History: Pneumonia Additional Family Medical History / Comment(s): Mother of pneumonia. Patient's son of brain cancer, last mother and father both liver cancer Son(s) Family Medical History: Cancer Additional Family Medical History / Comment(s): Son of brain cancer. Father Family Medical History: Cancer Additional Family Medical History / Comment(s): liver General Exam Limitations: no limitations General appearance: alert, in no apparent distress Head exam: Present: atraumatic, normocephalic, normal inspection Eye exam: Present: normal appearance, PERRL, EOMI. Absent: scleral icterus, conjunctival injection, periorbital swelling ENT exam: Present: normal exam, mucous membranes moist Neck exam: Present: normal inspection. Absent: tenderness, meningismus, lymphadenopathy Respiratory exam: Present: normal lung sounds bilaterally. Absent: respiratory distress, wheezes, rales, rhonchi, stridor Cardiovascular Exam: Present: regular rate, normal rhythm, normal heart sounds. Absent: systolic murmur, diastolic murmur, rubs, gallop, clicks GI/Abdominal exam: Present: soft, normal bowel sounds. Absent: distended, tenderness, guarding, rebound, rigid Extremities exam: Present: normal inspection, full ROM, normal capillary refill. Absent: tenderness, pedal edema, joint swelling, calf tenderness Back exam: Present: normal inspection Neurological exam: Present: alert, oriented X3, CN II-XII intact Psychiatric exam: Present: normal affect, normal mood Skin exam: Present: warm, dry, intact, normal color. Absent: rash Course Vital Signs 04/30/19 04/30/19 04/30/19 09:06 11:22 13:06 Temperature 98.3 F 99.1 F Pulse Rate 101 H 81 84 Respiratory 18 18 16 Rate Blood Pressure 134/88 122/84 139/98 O2 Sat by Pulse 99 98 100 Oximetry EKG Findings - EKG Comments: EKG Findings:: EKG demonstrates normal sinus rhythm with ventricular rate 71. AZ interval 136. QRS 74. QTC of 430. Inverted T waves in lead 3. No acute ST segment elevations or depressions concerning for ischemic changes Medical Decision Making - Medical Decision Making Upon arrival the patient was placed into room 18. A thorough history of physical exam is performed. Peripheral IV is established the patient is given a 2 L bolus of normal saline. She is also given 4 mg of Zofran. Laboratory studies were conducted and the patient was sent for a CT of her abdomen and pelvis. Laboratory studies demonstrate a normal CBC. CMP shows a potassium of 3.3. This is replaced. Glucose is 101. TSH 0.274 with a free T4 of 2.5. I instructed the patient to hold off on her dose of Synthroid tomorrow. Urinalysis shows trace blood and trace protein with few mucus. CT of the patient's abdomen and pelvis is reviewed which demonstrates no suspicious acute changes within the abdomen and pelvis. Uterine fibroid. I discussed his results the patient. She reports that she feels much improved after the fluid administration. I informed her that she needs to follow up with her pv design engineer regarding her hyperthyroidism. She does provide a stool sample which she brought from home. We do send it to the lab. I do offer her treatment for C. diff she has a history of in the past. Patient agrees to this and she is given a written prescription for Vanco. If the patient has any new or worsening symptoms she should return to the emergency room. Patient was then discharged with stable condition - Lab Data Result diagrams: 04/30/19 09:50 04/30/19 09:50 Lab Results 04/30/19 04/30/19 04/30/19 Range/Units 09:45 09:45 09:50 WBC 6.6 (3.8-10.6) k/uL RBC 3.97 (3.80-5.40) m/uL Hgb 13.1 (11.4-16.0) gm/dL Hct 37.1 (34.0-46.0) % MCV 93.3 (80.0-100.0) fL MCH 32.9 (25.0-35.0) pg MCHC 35.3 (31.0-37.0) g/dL RDW 12.5 (11.5-15.5) % Plt Count 251 (150-450) k/uL Neutrophils % 75 % Lymphocytes % 20 % Monocytes % 3 % Eosinophils % 1 % Basophils % 0 % Neutrophils # 4.9 (1.3-7.7) k/uL Lymphocytes # 1.3 (1.0-4.8) k/uL Monocytes # 0.2 (0-1.0) k/uL Eosinophils # 0.1 (0-0.7) k/uL Basophils # 0.0 (0-0.2) k/uL Sodium (137-145) mmol/L Potassium (3.5-5.1) mmol/L Chloride (98-107) mmol/L Carbon Dioxide (22-30) mmol/L Anion Gap mmol/L BUN (7-17) mg/dL Creatinine (0.52-1.04) mg/dL Est GFR (CKD-EPI)AfAm (>60 ml/min/1.73 sqM) Est GFR (CKD-EPI)NonAf (>60 ml/min/1.73 sqM) Glucose (74-99) mg/dL Plasma Lactic Acid Yordan (0.7-2.0) mmol/L Calcium (8.4-10.2) mg/dL Total Bilirubin (0.2-1.3) mg/dL AST (14-36) U/L ALT (9-52) U/L Alkaline Phosphatase (38-126) U/L Total Protein (6.3-8.2) g/dL Albumin (3.5-5.0) g/dL Lipase (23-300) U/L TSH (0.465-4.680) mIU/L Free T4 (0.78-2.19) ng/dL Urine Color Yellow Urine Appearance Clear (Clear) Urine pH 5.5 (5.0-8.0) Ur Specific Apex 1.024 (1.001-1.035) Urine Protein Trace H (Negative) Urine Glucose (UA) Negative (Negative) Urine Ketones Negative (Negative) Urine Blood Trace H (Negative) Urine Nitrite Negative (Negative) Urine Bilirubin Negative (Negative) Urine Urobilinogen <2.0 (<2.0) mg/dL Ur Leukocyte Esterase Negative (Negative) Urine RBC <1 (0-5) /hpf Urine WBC 1 (0-5) /hpf Ur Squamous Epith Cells 1 (0-4) /hpf Urine Mucus Few H (None) /hpf Urine HCG, Qual Not Detected (Not Detectd) Stool Occult Blood (Negative) Stool Lactoferrin (NEGATIVE) C. difficile (EIA) Intrp (Negative) 04/30/19 04/30/19 04/30/19 Range/Units 09:50 09:50 10:00 WBC (3.8-10.6) k/uL RBC (3.80-5.40) m/uL Hgb (11.4-16.0) gm/dL Hct (34.0-46.0) % MCV (80.0-100.0) fL MCH (25.0-35.0) pg MCHC (31.0-37.0) g/dL RDW (11.5-15.5) % Plt Count (150-450) k/uL Neutrophils % % Lymphocytes % % Monocytes % % Eosinophils % % Basophils % % Neutrophils # (1.3-7.7) k/uL Lymphocytes # (1.0-4.8) k/uL Monocytes # (0-1.0) k/uL Eosinophils # (0-0.7) k/uL Basophils # (0-0.2) k/uL Sodium 142 (137-145) mmol/L Potassium 3.3 L (3.5-5.1) mmol/L Chloride 109 H (98-107) mmol/L Carbon Dioxide 25 (22-30) mmol/L Anion Gap 8 mmol/L BUN 12 (7-17) mg/dL Creatinine 0.92 (0.52-1.04) mg/dL Est GFR (CKD-EPI)AfAm >90 (>60 ml/min/1.73 sqM) Est GFR (CKD-EPI)NonAf 80 (>60 ml/min/1.73 sqM) Glucose 101 H (74-99) mg/dL Plasma Lactic Acid Yordan 0.6 L (0.7-2.0) mmol/L Calcium 9.5 (8.4-10.2) mg/dL Total Bilirubin 0.5 (0.2-1.3) mg/dL AST 16 (14-36) U/L ALT 20 (9-52) U/L Alkaline Phosphatase 61 (38-126) U/L Total Protein 6.9 (6.3-8.2) g/dL Albumin 4.5 (3.5-5.0) g/dL Lipase 92 (23-300) U/L TSH 0.274 L (0.465-4.680) mIU/L Free T4 2.51 H (0.78-2.19) ng/dL Urine Color Urine Appearance (Clear) Urine pH (5.0-8.0) Ur Specific Apex (1.001-1.035) Urine Protein (Negative) Urine Glucose (UA) (Negative) Urine Ketones (Negative) Urine Blood (Negative) Urine Nitrite (Negative) Urine Bilirubin (Negative) Urine Urobilinogen (<2.0) mg/dL Ur Leukocyte Esterase (Negative) Urine RBC (0-5) /hpf Urine WBC (0-5) /hpf Ur Squamous Epith Cells (0-4) /hpf Urine Mucus (None) /hpf Urine HCG, Qual (Not Detectd) Stool Occult Blood (Negative) Stool Lactoferrin NEGATIVE (NEGATIVE) C. difficile (EIA) Intrp (Negative) 04/30/19 04/30/19 Range/Units 10:00 10:00 WBC (3.8-10.6) k/uL RBC (3.80-5.40) m/uL Hgb (11.4-16.0) gm/dL Hct (34.0-46.0) % MCV (80.0-100.0) fL MCH (25.0-35.0) pg MCHC (31.0-37.0) g/dL RDW (11.5-15.5) % Plt Count (150-450) k/uL Neutrophils % % Lymphocytes % % Monocytes % % Eosinophils % % Basophils % % Neutrophils # (1.3-7.7) k/uL Lymphocytes # (1.0-4.8) k/uL Monocytes # (0-1.0) k/uL Eosinophils # (0-0.7) k/uL Basophils # (0-0.2) k/uL Sodium (137-145) mmol/L Potassium (3.5-5.1) mmol/L Chloride (98-107) mmol/L Carbon Dioxide (22-30) mmol/L Anion Gap mmol/L BUN (7-17) mg/dL Creatinine (0.52-1.04) mg/dL Est GFR (CKD-EPI)AfAm (>60 ml/min/1.73 sqM) Est GFR (CKD-EPI)NonAf (>60 ml/min/1.73 sqM) Glucose (74-99) mg/dL Plasma Lactic Acid Yordan (0.7-2.0) mmol/L Calcium (8.4-10.2) mg/dL Total Bilirubin (0.2-1.3) mg/dL AST (14-36) U/L ALT (9-52) U/L Alkaline Phosphatase (38-126) U/L Total Protein (6.3-8.2) g/dL Albumin (3.5-5.0) g/dL Lipase (23-300) U/L TSH (0.465-4.680) mIU/L Free T4 (0.78-2.19) ng/dL Urine Color Urine Appearance (Clear) Urine pH (5.0-8.0) Ur Specific Apex (1.001-1.035) Urine Protein (Negative) Urine Glucose (UA) (Negative) Urine Ketones (Negative) Urine Blood (Negative) Urine Nitrite (Negative) Urine Bilirubin (Negative) Urine Urobilinogen (<2.0) mg/dL Ur Leukocyte Esterase (Negative) Urine RBC (0-5) /hpf Urine WBC (0-5) /hpf Ur Squamous Epith Cells (0-4) /hpf Urine Mucus (None) /hpf Urine HCG, Qual (Not Detectd) Stool Occult Blood Negative (Negative) Stool Lactoferrin (NEGATIVE) C. difficile (EIA) Intrp Negative (Negative) Disposition Clinical Impression: Diarrhea, Hyperthyroidism, Hypokalemia Disposition: HOME SELF-CARE Condition: Stable Instructions (If sedation given, give patient instructions): Acute Diarrhea (ED) Additional Instructions: Please follow-up with your primary care doctor in 2-4 days. Do not take your dose of Synthroid tomorrow. Call and make an appointment with your pv design engineer in order to regulate your Synthroid. Return to emergency room for any new or worsening symptoms Prescriptions: Vancomycin Oral Solution 125 mg PO Q6HR #100 ml Is patient prescribed a controlled substance at d/c from ED?: No Referrals: Slade Gonzalez MD [Primary Care Provider] - 1-2 days Time of Disposition: 12:19
[2019-04-30 11:36] LABS: T4, Free (Free Thyroxine) 2.51 ng/dL (0.78-2.19)
[2019-04-30 13:07] VITALS: BP 139/98; PULSE 84; RESP 16; TEMP 99.1
== END 2019-04-30 13:13 | disposition home or self-care (01) ==
LOC: EC 08:51
DX: E87.6 Hypokalemia (principal); E05.90 Thyrotoxicosis, unspecified without thyrotoxic crisis or storm; A04.72 Enterocolitis due to Clostridium difficile, not specified as recurrent; D25.9 Leiomyoma of uterus, unspecified; R31.9 Hematuria, unspecified; R80.9 Proteinuria, unspecified; R82.998 Other abnormal findings in urine; J45.909 Unspecified asthma, uncomplicated; F32.9 Major depressive disorder, single episode, unspecified; F41.9 Anxiety disorder, unspecified; Z88.8 Allergy status to other drugs, medicaments and biological substances; Z79.3 Long term (current) use of hormonal contraceptives; Z79.52 Long term (current) use of systemic steroids; Z79.890 Hormone replacement therapy; Z79.899 Other long term (current) drug therapy; Z86.14 Personal history of Methicillin resistant Staphylococcus aureus infection; Z85.41 Personal history of malignant neoplasm of cervix uteri; Z87.19 Personal history of other diseases of the digestive system; Z86.69 Personal history of other diseases of the nervous system and sense organs; Z87.09 Personal history of other diseases of the respiratory system; Z90.49 Acquired absence of other specified parts of digestive tract; Z98.84 Bariatric surgery status; Z98.890 Other specified postprocedural states; Z80.0 Family history of malignant neoplasm of digestive organs
CPT/HCPCS: 99284; 96374; 96361 ×2; 36415; 93005; 84439; 80053; 84443; 83605; 83690; 85025; 82272; 81001; 81025; 87324; 87045; 83630; 87046; 74177; J2405; Q9967

== ENCOUNTER 2019-06-23 12:42 | Observation (INO) | payer OTHER ==
[2019-06-23 13:08] VITALS: RESP 18
[2019-06-23] MEDS ORDERED: diphenhydrAMINE 50 MG/ML 1 ML VIAL IVP STA (14:09)
[2019-06-23] MEDS ORDERED: SODIUM CHLORIDE 0.9% 1,000 ML IV STA (14:09)
[2019-06-23] MEDS ORDERED: METOCLOPRAMIDE 5 MG/ML 2 ML VIAL IVP STA (14:09)
--- NOTE | 2019-06-23 14:33 | ED ---
Headache HPI - General Chief Complaint: Headache Stated Complaint: headache, blurred vision, elevated BP Time Seen by Provider: 06/23/19 13:55 Source: patient Mode of arrival: ambulatory Limitations: no limitations - History of Present Illness Initial Comments: This is a 38-year-old female presents to emergency room today with a headache. She states that she was sent from her family doctor's office, Dr. Gonzalez. She relates as left frontal in nature. It started when she woke up this morning about 4:30. She has been experiencing blurred vision in the left eye since that time. She also relates that she has some paresthesias in the left hand as well as some discomfort and weakness. She states that she has some left-sided chest pain which is sharp achy pain. This has been intermittent since the weekend. No shortness of breath or difficulty in breathing. No nausea vomiting diarrhea or constipation. Denies any medications taken except for her home [place]. She does have a history of remote seizures in the past secondary to head injury. Welch s not had one since 2015. She denies any new fall or injury. Denies any speech changes. Denies any other complaints or concerns. MD Complaint: headache - Related Data Home Medications Medication Instructions Recorded Confirmed Levalbuterol HCl [Xopenex 0.63 mg INHALATION QID PRN 07/10/18 06/23/19 Nebulized] Medroxyprogesterone Acetate 150 mg IM Q84D 07/10/18 06/23/19 [Depo-Provera] Omalizumab [Xolair] 300 mg SQ Q28D 07/10/18 06/23/19 Cholecalciferol [Vitamin D3 (25 1,000 unit PO DAILY 08/10/18 06/23/19 Mcg = 1000 Iu)] PARoxetine HCL [Paxil] 40 mg PO HS@199911/24/18 06/23/19 Albuterol Inhaler [Ventolin Hfa 2 puff INHALATION Q6HR PRN 12/18/18 06/23/19 Inhaler] Botox Injection 1 dose IM Q90D 12/18/18 06/23/19 predniSONE 10 mg PO DAILY PRN 12/18/18 06/23/19 Methylphenidate HCl [Concerta] 36 mg PO DAILY@0700 04/09/19 06/23/19 Levothyroxine Sodium [Synthroid] 137 mcg PO SUMOTUWETHSA 06/22/19 06/23/19 Prednisolone Acetate/Pf 1 drop BOTH EYES TID 06/22/19 06/23/19 [Prednisolone Acet 1% Eye Drop] Ketoconazole 2% Cream [Nizoral 2%] 1 applic TOPICAL BID PRN 06/23/19 06/23/19 Triamcinolone 0.1% Cream [Kenalog 1 applicatio TOPICAL BID PRN 06/23/19 06/23/19 0.1% Cream] busPIRone HCL 10 mg PO BID@0700,1500 06/23/19 06/23/19 tiZANidine HCL 4 mg PO Q8H PRN 06/23/19 06/23/19 traZODone HCL 100 mg PO HS@199906/23/19 06/23/19 Previous Rx's Medication Instructions Recorded HYDROcodone/APAP 7.5-325MG [[place] 1 tab PO Q6HR PRN #120 tab 07/28/18 7.5-325] Allergies Allergy/AdvReac Type Severity Reaction Status Date / Time albuterol AdvReac Rapid Verified 06/23/19 16:52 Heart Rate Review of Systems ROS Statement: Those systems with pertinent positive or pertinent negative responses have been documented in the HPI. ROS Other: All systems not noted in ROS Statement are negative. Past Medical History Past Medical History: Asthma, Cancer, GERD/Reflux, Seizure Disorder, Thyroid Disorder Additional Past Medical History / Comment(s): TACHYCARDIA, peptic ulcers, an emia."HAS BEEN ON VENTILATOR IN PAST D/T SEVERE ASTHMA ATTACK," BULEMIA-STATES GETTING BETTER, CONSTIPATION. HERNIATED DISC, cervical cancer. 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 Surgery on her cervix for cancer, rt foot surgery(Fx), cysto/lithotripsy , left hip replacement 12/2018 Past Anesthesia/Blood Transfusion Reactions: Postoperative Nausea & Vomiting (PONV) Past Psychological History: Anxiety, Depression Smoking Status: Never smoker - Past Family History Mother Family Medical History: Pneumonia Additional Family Medical History / Comment(s): Mother of pneumonia. Patient's son of brain cancer, last mother and father both liver cancer Son(s) Family Medical History: Cancer Additional Family Medical History / Comment(s): Son of brain cancer. Father Family Medical History: Cancer Additional Family Medical History / Comment(s): liver General Exam Limitations: no limitations General appearance: alert, in no apparent distress Head exam: Present: atraumatic, normocephalic Eye exam: Present: normal appearance, PERRL, EOMI ENT exam: Present: normal exam, normal oropharynx, TM's normal bilaterally Neck exam: Present: normal inspection, full ROM. Absent: tenderness Respiratory exam: Present: normal lung sounds bilaterally. Absent: respiratory distress, wheezes, rhonchi, stridor Cardiovascular Exam: Present: regular rate, normal rhythm, normal heart sounds GI/Abdominal exam: Present: soft, normal bowel sounds. Absent: distended, tenderness, guarding, rebound Extremities exam: Present: full ROM, normal capillary refill, other (Full range of motion of bilateral upper and lower shins with 5/5 strength testing against resistance. Sensation remains intact bilateral upper and lower extremities.) Neurological exam: Present: alert, oriented X3, CN II-XII intact, other ([id number] [id number] and rapid alternating movements are within normal limits. Sensation remains intact.) Skin exam: Present: warm, dry, intact, normal color Course Vital Signs 06/23/19 06/23/19 06/23/19 13:05 17:57 18:07 Temperature 97.8 F 98.5 F Pulse Rate 107 H 110 H Respiratory 18 18 Rate Blood Pressure 144/91 156/91 136/85 O2 Sat by Pulse 98 98 Oximetry 06/23/19 18:11 Temperature Pulse Rate Respiratory Rate Blood Pressure 136/85 O2 Sat by Pulse Oximetry Medical Decision Making - Medical Decision Making 38-year-old female presents emergency room today from family doctor's office for evaluation of headache and vision changes on the left eye paresthesias in the left hand. 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 Finger to nose intact. Rapid alternate movements within normal limits. Secondary to patient's headache and visual changes CT imaging of the brain was completed. No acute abnormalities on the CT imaging of the brain. Patient had also reported that she had some intermittent chest pain. EKG reveals normal sinus rhythm without any ST elevation or depression. Her lab work reveals a normal troponin. I discussed with her symptoms we will admit her to the hospital for vision changes and further evaluation. She verbalized understanding of treatment plan. - Lab Data Result diagrams: 06/23/19 15:00 06/23/19 15:00 Lab Results 06/23/19 06/23/19 06/23/19 Range/Units 15:00 15:00 15:00 WBC 7.8 (3.8-10.6) k/uL RBC 4.88 (3.80-5.40) m/uL Hgb 15.6 (11.4-16.0) gm/dL Hct 45.6 (34.0-46.0) % MCV 93.4 (80.0-100.0) fL MCH 31.9 (25.0-35.0) pg MCHC 34.1 (31.0-37.0) g/dL RDW 11.6 (11.5-15.5) % Plt Count 264 (150-450) k/uL Neutrophils % 74 % Lymphocytes % 20 % Monocytes % 4 % Eosinophils % 1 % Basophils % 1 % Neutrophils # 5.8 (1.3-7.7) k/uL Lymphocytes # 1.6 (1.0-4.8) k/uL Monocytes # 0.3 (0-1.0) k/uL Eosinophils # 0.0 (0-0.7) k/uL Basophils # 0.0 (0-0.2) k/uL ESR (0-20) mm/hr Sodium 140 (137-145) mmol/L Potassium 4.2 (3.5-5.1) mmol/L Chloride 106 (98-107) mmol/L Carbon Dioxide 23 (22-30) mmol/L Anion Gap 11 mmol/L BUN 13 (7-17) mg/dL Creatinine 1.03 (0.52-1.04) mg/dL Est GFR (CKD-EPI)AfAm 80 (>60 ml/min/1.73 sqM) Est GFR (CKD-EPI)NonAf 69 (>60 ml/min/1.73 sqM) Glucose 86 (74-99) mg/dL Calcium 9.7 (8.4-10.2) mg/dL Magnesium 2.1 (1.6-2.3) mg/dL Total Bilirubin 0.8 (0.2-1.3) mg/dL AST 22 (14-36) U/L ALT 12 (4-34) U/L Alkaline Phosphatase 75 (38-126) U/L Troponin I <0.012 (0.000-0.034) ng/mL C-Reactive Protein (<10.0) mg/L Total Protein 8.2 (6.3-8.2) g/dL Albumin 5.1 H (3.5-5.0) g/dL Urine Color Urine Appearance (Clear) Urine pH (5.0-8.0) Ur Specific [place] (1.001-1.035) Urine Protein (Negative) Urine Glucose (UA) (Negative) Urine Ketones (Negative) Urine Blood (Negative) Urine Nitrite (Negative) Urine Bilirubin (Negative) Urine Urobilinogen (<2.0) mg/dL Ur Leukocyte Esterase (Negative) Urine HCG, Qual (Not Detectd) 06/23/19 06/23/19 06/23/19 Range/Units 15:00 15:00 15:10 WBC (3.8-10.6) k/uL RBC (3.80-5.40) m/uL Hgb (11.4-16.0) gm/dL Hct (34.0-46.0) % MCV (80.0-100.0) fL MCH (25.0-35.0) pg MCHC (31.0-37.0) g/dL RDW (11.5-15.5) % Plt Count (150-450) k/uL Neutrophils % % Lymphocytes % % Monocytes % % Eosinophils % % Basophils % % Neutrophils # (1.3-7.7) k/uL Lymphocytes # (1.0-4.8) k/uL Monocytes # (0-1.0) k/uL Eosinophils # (0-0.7) k/uL Basophils # (0-0.2) k/uL ESR 8 (0-20) mm/hr Sodium (137-145) mmol/L Potassium (3.5-5.1) mmol/L Chloride (98-107) mmol/L Carbon Dioxide (22-30) mmol/L Anion Gap mmol/L BUN (7-17) mg/dL Creatinine (0.52-1.04) mg/dL Est GFR (CKD-EPI)AfAm (>60 ml/min/1.73 sqM) Est GFR (CKD-EPI)NonAf (>60 ml/min/1.73 sqM) Glucose (74-99) mg/dL Calcium (8.4-10.2) mg/dL Magnesium (1.6-2.3) mg/dL Total Bilirubin (0.2-1.3) mg/dL AST (14-36) U/L ALT (4-34) U/L Alkaline Phosphatase (38-126) U/L Troponin I (0.000-0.034) ng/mL C-Reactive Protein <5.0 (<10.0) mg/L Total Protein (6.3-8.2) g/dL Albumin (3.5-5.0) g/dL Urine Color Urine Appearance (Clear) Urine pH (5.0-8.0) Ur Specific [place] (1.001-1.035) Urine Protein (Negative) Urine Glucose (UA) (Negative) Urine Ketones (Negative) Urine Blood (Negative) Urine Nitrite (Negative) Urine Bilirubin (Negative) Urine Urobilinogen (<2.0) mg/dL Ur Leukocyte Esterase (Negative) Urine HCG, Qual Not Detected (Not Detectd) 06/23/19 Range/Units 15:10 WBC (3.8-10.6) k/uL RBC (3.80-5.40) m/uL Hgb (11.4-16.0) gm/dL Hct (34.0-46.0) % MCV (80.0-100.0) fL MCH (25.0-35.0) pg MCHC (31.0-37.0) g/dL RDW (11.5-15.5) % Plt Count (150-450) k/uL Neutrophils % % Lymphocytes % % Monocytes % % Eosinophils % % Basophils % % Neutrophils # (1.3-7.7) k/uL Lymphocytes # (1.0-4.8) k/uL Monocytes # (0-1.0) k/uL Eosinophils # (0-0.7) k/uL Basophils # (0-0.2) k/uL ESR (0-20) mm/hr Sodium (137-145) mmol/L Potassium (3.5-5.1) mmol/L Chloride (98-107) mmol/L Carbon Dioxide (22-30) mmol/L Anion Gap mmol/L BUN (7-17) mg/dL Creatinine (0.52-1.04) mg/dL Est GFR (CKD-EPI)AfAm (>60 ml/min/1.73 sqM) Est GFR (CKD-EPI)NonAf (>60 ml/min/1.73 sqM) Glucose (74-99) mg/dL Calcium (8.4-10.2) mg/dL Magnesium (1.6-2.3) mg/dL Total Bilirubin (0.2-1.3) mg/dL AST (14-36) U/L ALT (4-34) U/L Alkaline Phosphatase (38-126) U/L Troponin I (0.000-0.034) ng/mL C-Reactive Protein (<10.0) mg/L Total Protein (6.3-8.2) g/dL Albumin (3.5-5.0) g/dL Urine Color Yellow Urine Appearance Clear (Clear) Urine pH 6.0 (5.0-8.0) Ur Specific [place] 1.019 (1.001-1.035) Urine Protein Negative (Negative) Urine Glucose (UA) Negative (Negative) Urine Ketones 1+ H (Negative) Urine Blood Negative (Negative) Urine Nitrite Negative (Negative) Urine Bilirubin Negative (Negative) Urine Urobilinogen <2.0 (<2.0) mg/dL Ur Leukocyte Esterase Negative (Negative) Urine HCG, Qual (Not Detectd) - EKG Data EKG Comments: EKG was completed and 1429. Normal sinus rhythm with a rate of 93. AR 128 QRS 72 QT/QTC 346/4:[address] elevation or depression noted. - Radiology Data Radiology results: report reviewed, image reviewed Disposition Clinical Impression: Headache, Vision changes, Elevated BP without diagnosis of hypertension, Paresthesia Disposition: ADMITTED IP TO THIS [facility] Condition: Stable
[2019-06-23 15:21] LABS: Basophils % (A) 1 %; Eosinophils % (A) 1 %; HCT 45.6 % (34.0-46.0); HGB 15.6 gm/dL (11.4-16.0); Lymphocytes # (A) 1.6 k/uL (1.0-4.8); Lymphocytes % (A) 20 %; MCH 31.9 pg (25.0-35.0); MCHC 34.1 g/dL (31.0-37.0); MCV 93.4 fL (80.0-100.0); Mean Platelet Volume 6.8; Monocytes # (A) 0.3 k/uL (0-1.0); Monocytes % (A) 4 %; Neutrophils # (A) 5.8 k/uL (1.3-7.7); Neutrophils % (A) 74 %; Platelet Count 264 k/uL (150-450); RBC 4.88 m/uL (3.80-5.40); RDW 11.6 % (11.5-15.5); WBC 7.8 k/uL (3.8-10.6)
[2019-06-23 15:24] LABS: Albumin 5.1 g/dL (3.5-5.0); Calcium 9.7 mg/dL (8.4-10.2); Magnesium 2.1 mg/dL (1.6-2.3); Potassium 4.2 mmol/L (3.5-5.1); Total Bilirubin 0.8 mg/dL (0.2-1.3); Total Protein 8.2 g/dL (6.3-8.2)
--- NOTE | 2019-06-23 15:26 | XR ---
EXAMINATION TYPE: XR chest 2V DATE OF EXAM: 06/23/2019 COMPARISON: Prior chest x-ray 04/15/2019 HISTORY: Pain, hypertension TECHNIQUE: Frontal and lateral views of the chest are obtained. FINDINGS: There is no focal air space opacity, pleural effusion, or pneumothorax seen. The cardiac silhouette size is within normal limits. The osseous structures are intact. There are overlying car diac leads. Surgical clips present in the right upper quadrant. Patient is post lap band. IMPRESSION: No acute cardiopulmonary process.
--- NOTE | 2019-06-23 15:32 | CT ---
EXAMINATION TYPE: CT brain wo con DATE OF EXAM: 06/23/2019 COMPARISON: July 10, 2018 HISTORY: headache, blurred vision CT DLP: 1099.[address] of the brain was performed. The ventricles, basal cisterns and sulci overlying the cerebral convexities demonstrate a normal appe arance. There is no evidence for intracranial hemorrhage or sulcal effacement. No mass effects are seen. Osseous calvarium is intact. If symptoms persist consider MRI as clinically warranted. IMPRESSION: 1. No acute intracranial process is seen at this time.
[2019-06-23 15:45] LABS: Appearance,Urine Clear (Clear); Bilirubin,Urine Negative (Negative); Blood,Urine Negative (Negative); Color,Urine Yellow; Glucose,Urine (UA) Negative (Negative); Ketones,Urine 1+ (Negative); Leukocyte Esterase,Urine Negative (Negative); Nitrite,Urine Negative (Negative); Protein,Urine Negative (Negative); Specific Gravity,Urine 1.019 (1.001-1.035); Urobilinogen,Urine <2.0 mg/dL (<2.0)
[2019-06-23] MEDS ORDERED: ONDANSETRON 4 MG/2 ML VIAL IVP PRN ×2 (16:25→17:34)
[2019-06-23] MEDS ORDERED: NALOXONE 0.4 MG/ML 1 ML VIAL IV PRN (16:25)
[2019-06-23] MEDS ORDERED: cloNIDine HCL 0.1 MG TAB PO PRN (17:34)
[2019-06-23] MEDS ORDERED: HYDROmorphone 0.5 MG/0.5 ML SYRINGE IVP PRN (17:34)
[2019-06-23] MEDS ORDERED: ALPRAZolam 0.25 MG TAB PO PRN (17:34)
[2019-06-23] MEDS ORDERED: TEMAZEPAM 15 MG CAP PO PRN (17:34)
[2019-06-23] MEDS ORDERED: tiZANidine 4 MG TAB PO PRN (17:36)
[2019-06-23] MEDS ORDERED: ALBUTEROL NEBULIZED 2.5 MG/3 ML INHALATION PRN (17:36)
[2019-06-23] MEDS ORDERED: CLOTRIMAZOLE 1% CREAM 15 GM TUBE TOPICAL PRN (17:36)
[2019-06-23] MEDS ORDERED: TRIAMCINOLONE 0.1% CREAM 80 GM TUBE TOPICAL PRN (17:36)
[2019-06-23] MEDS ORDERED: LEVALBUTEROL HCL 0.63 MG INHALATION PRN (17:36)
[2019-06-23] MEDS: SODIUM CHLORIDE 0.9% 1,000 ML IV SCH (17:50)
[2019-06-23] MEDS: HYDROcodone/APAP 5-325MG 1 EACH TAB PO PRN (18:32)
[2019-06-23] MEDS ORDERED: traZODone HCL 100 MG TAB PO SCH (20:00)
[2019-06-23] MEDS: PANTOPRAZOLE 40 MG/10 ML VIAL IVP SCH (20:17)
[2019-06-23] MEDS: PARoxetine 20 MG TAB PO SCH (20:18)
[2019-06-23] MEDS: METOPROLOL TARTRATE 12.5 MG TAB PO SCH (20:19)
[2019-06-23] MEDS: prednisoLONE ACETATE 1% OPHTH DROPS 5 ML BTL BOTH EYES SCH (21:05)
--- NOTE | 2019-06-23 21:28 | HP ---
HISTORY AND PHYSICAL DATE OF SERVICE: 06/23/2019. CHIEF COMPLAINT: 1. Headache. 2. Blurred vision. HISTORY OF PRESENT ILLNESS: This 38-year-old woman with a past medical history of multiple medical problems such as history of asthma, history of GERD, seizure disorder, hypothyroidism, history of tachycardia, history of peptic ulcer disease, anemia, multiple ICU admissions for severe asthma, history of migraine, cervical cancer, influenza A, kidney stones, bariatric surgery, being followed by Dr. Gonzalez in the outpatient setting was having headaches for the last several days. The patient also had high blood pressure, systolic up to 170 and the patient also has various issues with the left hand. The patient also had some blurring of the vision of the left eye. The patient went to Dr. Gonzalez's office and subsequently referred to [facility] and admitted for further evaluation and treatment. 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 The records are not available at this time. There is no history of any fever, rigors or chills. No history of headache, loss of consciousness, seizures at this time. The patient also has vomiting also. PAST MEDICAL HISTORY: History of asthma, GERD, seizure disorder, hypothyroidism, tachycardia, bariatric surgery, cholecystectomy, anxiety and depression. MEDICATIONS: Prior to admission include home medications are reviewed and include: 1. Tizanidine 4 mg p.o. q.8 p.r.n. 2. Trazodone 100 mg q.h.s. 3. Triamcinolone Kenalog application topically b.i.d. 4. Paxil 40 mg q.h.s. 5. Concerta 36 mg p.o. daily. 6. Vitamin D3 1000 daily. 7. Nizoral 2% application b.i.d. p.r.n. 8. Buspirone 10 mg p.o. b.i.d. 9. Prednisone 1 drop both eyes b.i.d. 10.Prednisone 10 mg daily p.r.n. 11.Xolair 300 mg subcu Q 28 days. 12.Depo-Provera 150 mg IM Q 14 days. 13.Xopenex 0.63 q.i.d. p.r.n. 14.Ventolin two puffs q.6h p.r.n. 15.Synthroid 137 mcg p.o. Saturday, Saturday, Saturday, , Saturday. 16.Hydrocodone 7.5 mg q.6h p.r.n. ALLERGIES: ALBUTEROL. FAMILY HISTORY: History of skin cancer, brain cancer in son. SOCIAL HISTORY: No history of smoking. No history of alcohol. REVIEW OF SYSTEMS: ENT as mentioned earlier. CARDIOVASCULAR: No angina or palpitations. RESPIRATORY: As mentioned earlier. GI no nausea or vomiting. no dysuria or hematuria. NERVOUS SYSTEM: As mentioned earlier. ALLERGY/IMMUNOLOGY: History of asthma. MUSCULOSKELETAL mentioned earlier. HEMATOLOGY/ONCOLOGY: No history of anemia. ENDOCRINE: As mentioned earlier. CONSTITUTIONAL: As mentioned earlier. DERMATOLOGY: Negative. RHEUMATOLOGY: Negative. PSYCHIATRIC: As mentioned earlier. PHYSICAL EXAMINATION: Alert and oriented x3. Pulse is 107. Blood pressure 145/91, respiration 18, temperature 97.8, pulse ox 98% on room air. HEENT is conjunctivae normal. Oral mucosa moist. NECK is no jugular venous distention. No carotid bruit. No lymph node enlargement. CARDIOVASCULAR SYSTEM: S1, S2. No S3, no S4. RESPIRATORY: Breath sounds diminished in the bases. No rhonchi. No crackles. ABDOMEN: Soft, nontender. No mass palpable. LEGS: No edema. No swelling. NERVOUS SYSTEM: Higher functions as mentioned earlier. Cranial nerves, minimal blurring of vision of the left eye. Otherwise, pupils are normal. No other eye movements abnormalities noted. Otherwise, power is normal. Reflexes are normal. Gait not tested. Lymphatics: No lymph nodes palpable in the neck, axillae or groin. JOINTS: No active deforming arthropathy. LABS: At this time show CBC within normal limits. CMP shows albumin 5.1. UA 1+ ketones. ASSESSMENT: 1. Hypertensive urgency with vomiting and headache for evaluation. 2. Rule out acute migraine exacerbation. 3. Rule out multiple sclerosis with visual difficulties or ophthalmic migraine. 4. 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 5. History of asthma with several exacerbations and ICU admissions. 6. Gastroesophageal reflux disease. 7. Seizure disorder. 8. Hypothyroidism. 9. Degenerative joint disease. 10.History of cervical cancer. 11.History of migraine. 12.History of nephrolithiasis. 13.History of MRSA. 14.History of bariatric surgery. 15.History of cholecystectomy. 16.History of degenerative joint disease. 17.History of anxiety, depression. 18.FULL CODE. RECOMMENDATIONS AND DISCUSSION: In this 38-year-old woman who presented with multiple complex medical issues, we will monitor the patient closely, continue the current medications, symptomatic treatment. We will initiate Lopressor. Symptomatic treatment for headache. Neurology evaluation. Basic labs. CT scan has been done otherwise: Zofran and Protonix. DVT prophylaxis. Guarded prognosis because of multiple complex medical issues. Further recommendations to follow. The patient might require MRI and further workup for evaluation. [facility] disorder with a higher iron disposition diagnosed during workup of multiple sclerosis. Patient did not have any MS at that time according to her. Again prognosis guarded. Further recommendations to follow. JEANNINE / VICKIEN: [id number] / RY
[2019-06-24 00:28] VITALS: TEMP 98.3
[2019-06-24] MEDS: SODIUM CHLORIDE 0.9% 1,000 ML IV SCH (02:45)
[2019-06-24 06:18] LABS: Basophils % (A) 0 %; Eosinophils # (A) 0.1 k/uL (0-0.7); Eosinophils % (A) 2 %; HCT 37.6 % (34.0-46.0); HGB 12.8 gm/dL (11.4-16.0); Lymphocytes # (A) 1.6 k/uL (1.0-4.8); Lymphocytes % (A) 26 %; MCH 32.5 pg (25.0-35.0); MCHC 34.1 g/dL (31.0-37.0); MCV 95.2 fL (80.0-100.0); Monocytes # (A) 0.2 k/uL (0-1.0); Monocytes % (A) 4 %; Neutrophils % (A) 67 %; Platelet Count 213 k/uL (150-450); RBC 3.95 m/uL (3.80-5.40); RDW 11.7 % (11.5-15.5)
[2019-06-24 06:20] LABS: Calcium 8.4 mg/dL (8.4-10.2)
[2019-06-24] MEDS ORDERED: LEVOTHYROXINE 137 MCG TAB PO SCH (06:30)
[2019-06-24] MEDS ORDERED: busPIRone HCl 10 MG TAB PO SCH (07:00)
[2019-06-24 07:42] VITALS: BP 93/61; PULSE 76
[2019-06-24] MEDS ORDERED: METHYLPHENIDATE HCL 10 MG TAB PO SCH (08:00)
[2019-06-24] MEDS ORDERED: CHOLECALCIFEROL 1,000 UNIT TAB PO SCH (09:00)
[2019-06-24] MEDS: prednisoLONE ACETATE 1% OPHTH DROPS 5 ML BTL BOTH EYES SCH (09:01)
[2019-06-24] MEDS: METOPROLOL TARTRATE 12.5 MG TAB PO SCH (09:02)
[2019-06-24] MEDS: PANTOPRAZOLE 40 MG/10 ML VIAL IVP SCH (09:02)
[2019-06-24] MEDS: PARoxetine 20 MG TAB PO SCH (09:02)
[2019-06-24] MEDS: HYDROcodone/APAP 5-325MG 1 EACH TAB PO PRN (09:17)
[2019-06-24] MEDS ORDERED: PANTOPRAZOLE 40 MG TABLET PO SCH (17:30)
--- NOTE | 2019-06-25 22:13 | P.CNNES ---
History of Present Illness Consult date: 06/24/19 Reason for Consult: headache, vision changes History of Present Illness: HISTORY OF PRESENT ILLNESS: Thank you for allowing me to evaluate Ms. Josephine Delgado. Ms. Delgado is a 38 year-old woman with PMHx of asthma, GERD, seizure, hypothyroidism, bulemia, herniated disc, cervical cancer, migraines, neurodegeneration with iron accumulation, cervical dystonia, anxiety, depression, who was sent by her family physician for headache and vision changes. Patient states that she's had migraines before. Her headache was about 7/10 pain, with photophobia. Improved when lying down, no pulsatile tinnitus. Patient has had vision changes before with migraines, but per family physician's recommendation, she came to the emergency room. Her headache has improved and vision is back to baseline. Patient sees a neurologist at [facility], and gets botox for her cervical dystonia. Patient wondering if botox can cause headaches (discussed with patient that botox is used for migraines). Patient with no complaints at this time. PAST MEDICAL HISTORY: asthma, GERD, seizure, hypothyroidism, bulemia, herniated disc, cervical cancer, migraines, neurodegeneration with iron accumulation, anxiety, depression PAST SURGICAL HISTORY: bariratric surgery, cholecystectomy, tonsillectomy, nasal fracture repair, ORIF L elbow, surgery for cervical cancer, L hip replacement HOME MEDICATIONS: Omalizumab, paroxetine, botox injection, prednisone, methylphenidate, synthroid, buspirone, tizanidine, trazodone ALLERGIES: Albuterol SOCIAL HISTORY: Never smoker FAMILY HISTORY: Mother of PNA. Son from brain cancer. Father had liver cancer. REVIEW OF SYSTEMS: The 14 systems are reviewed and no additional points are identified compared to the review of systems documented history and physical PHYSICAL EXAMINATION: VITAL SIGNS: T 98.3 HR 88 RR 18 BP 90/55 O2 sat 97% on RA GEN.: NAD, pleasant and cooperative HEENT: NCAT, sclera without icterus NECK: Supple (but cautious when moving her neck with her cervical dystonia issues) SKIN AND EXTREMITIES: Warm to touch, no edema NEURO: MENTAL STATUS: Patient alert and oriented to self, place, time. Able to name the current president. Speech fluent, able to name and repeat, following all commands readily. CRANIAL NERVES II THROUGH XII: II: Pupils are equal and reactive to light sy mmetrically. Visual cervantes are intact. III, IV, : No ptosis. Extraocular movements full. No nystagmus. V: Facial sensation intact from V1-3. VII. No clear facial asymmetry. VIII: Hearing intact to finger rub bilaterally. IX, X: Symmetric palate elevation. XI: Shoulder shrug intact. XII: Tongue midline without fasciculation or atrophy. MOTOR: Normal bulk/tone. No pronator drift or tremor. Strength is 5/5 in b/l UE. LLE 4/5 which is her baseline after L hip replacement (due to avascular n ecrosis from steroid use) SENSORY: Intact to light touch in all 4 extremities. REFLEXES: 2+ throughout. Toes are downgoing. COORDINATION: Finger to nose intact. No dysmetria. GAIT: Antalgic gait, prefers R leg, patient uses a walker at baseline DIAGNOSTIC TESTING: LABORATORY: WBC 6.0 Hgb 12.8 Platelet 213 Na 141 K 4.0 Cl 110 CO2 26 BUN 10 Cr 1.06 Glucose 87 AST 22 ALT 12 AlkPhos 75 troponin <0.012 urinalysis negative IMAGING: CT Head w/o contrast 06/23/2019: No acute intracranial process is seen at this time. MRI brain w/o contrast 03/20/2016: Minimal nonspecific white matter changes felt stable likely of clinical sign ificance and mild to minimal chronic ethmoid sinus disease. No significant new finding is seen to account for patient's symptoms ASSESSMENT: 38 year-old woman with PMHx of asthma, GERD, seizure, hypothyroidism, bulemia, herniated disc, cervical cancer, migraines, neurodegeneration with iron accumulation, cervical dystonia, anxiety, depression, who was sent by her family physician for headache and vision changes. Patient at this time with no deficits at this time. Initially concerned about IIH, but patient's headache and vision changes improved. RECOMMENDATIONS: 1. No further neurological studies recommended at this time. 2. Patient with follow up appointment with her neurologist in a couple of weeks. Patient will discuss with her neurologist about starting migraine prophylaxis medications along with getting an MRI brain as outpatient 3. ED precautions discussed with patient. 4. Neurology will sign off at this time. Past Medical History Past Medical History: Asthma, Cancer, GERD/Reflux, Seizure Disorder, Thyroid Disorder Additional Past Medical History / Comment(s): TACHYCARDIA, peptic ulcers, anemia."HAS BEEN ON VENTILATOR IN PAST D/T SEVERE ASTHMA ATTACK," BULEMIA-STATES GETTING BETTER, CONSTIPATION. HERNIATED DISC, cervical cancer. 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 Surgery on her cervix for cancer, rt foot surgery(Fx), cysto/lithotripsy , left hip repl acement 12/2018 Past Anesthesia/Blood Transfusion Reactions: Postoperative Nausea & Vomiting (PONV) Past Psychological History: Anxiety, Depression Smoking Status: Never smoker - Past Family History Mother Family Medical History: Pneumonia Additional Family Medical History / Comment(s): Mother of pneumonia. Patient's son of brain cancer, last mother and father both liver cancer Son(s) Family Medical History: Cancer Additional Family Medical History / Comment(s): Son of brain cancer. Father Family Medical History: Cancer Additional Family Medical History / Comment(s): liver Medications and Allergies Home Medications Medication Instructions Recorded Confirmed Type Levalbuterol HCl [Xopenex 0.63 mg INHALATION QID PRN 07/10/18 06/25/19 History Nebulized] Medroxyprogesterone Acetate 150 mg IM Q84D 07/10/18 06/25/19 History [Depo-Provera] Omalizumab [Xolair] 300 mg SQ Q28D 07/10/18 06/25/19 History HYDROcodone/APAP 7.5-325MG [[place] 1 tab PO Q6HR PRN #120 tab 07/28/18 06/25/19 Rx 7.5-325] Cholecalciferol [Vitamin D3 (25 1,000 unit PO DAILY 08/10/18 06/25/19 History Mcg = 1000 Iu)] PARoxetine HCL [Paxil] 40 mg PO HS@199911/24/18 06/25/19 History Albuterol Inhaler [Ventolin Hfa 2 puff INHALATION Q6HR PRN 12/18/18 06/25/19 History Inhaler] Botox Injection 1 dose IM Q90D 12/18/18 06/25/19 History predniSONE 10 mg PO DAILY PRN 12/18/18 06/25/19 History Methylphenidate HCl [Concerta] 36 mg PO DAILY@0700 04/09/19 06/25/19 History Levothyroxine Sodium [Synthroid] 137 mcg PO SUMOTUWETHSA 06/22/19 06/25/19 Histo ry Prednisolone Acetate/Pf 1 drop BOTH EYES TID 06/22/19 06/25/19 History [Prednisolone Acet 1% Eye Drop] Ketoconazole 2% Cream [Nizoral 2%] 1 applic TOPICAL BID PRN 06/23/19 06/25/19 History Triamcinolone 0.1% Cream [Kenalog 1 applicatio TOPICAL BID PRN 06/23/19 06/25/19 History 0.1% Cream] busPIRone HCL 10 mg PO BID@0700,1500 06/23/19 06/25/19 History tiZANidine HCL 4 mg PO Q8H PRN 06/23/19 06/25/19 History traZODone HCL 100 mg PO HS@2000 06/23/19 06/25/19 History Allergies Allergy/AdvReac Type Severity Reaction Status Date / Time albuterol AdvReac Rapid Verified 06/23/19 16:52 Heart Rate Physical Examination - Vital Signs Vital Signs: Vital Signs Temp Pulse Pulse Resp BP BP Pulse Ox 06/24/19 00:00 98.3 F 88 18 90/55 97 06/23/19 23:30 88 18 06/23/19 23:25 88 18 06/23/19 19:15 18 06/23/19 18:25 98.4 F 92 18 135/85 99 06/23/19 18:11 136/85 06/23/19 18:07 136/85 06/23/19 17:57 98.5 F 110 H 18 156/91 98 06/23/19 13:05 97.8 F 107 H 18 144/91 98 Intake and Output 06/23/19 06/23/19 06/24/19 14:59 22:59 06:59 Intake Total 480 Balance 480 Intake: Oral 480 Other: # Voids 1 Weight 72.575 kg 72.575 kg 80 kg Results - Laboratory Findings CBC and BMP: 06/24/19 05:50 06/24/19 05:50 Abnormal Lab Findings: Abnormal Labs 06/23/19 06/23/19 06/24/19 15:00 15:10 05:50 Chloride 110 H Creatinine 1.06 H Albumin 5.1 H Urine Ketones 1+ H
[2019-06-28] MEDS ORDERED: NON FORMULARY DRUG (Medroxyprogesterone Acetate [Depo-Provera] 150 MG) IM SCH (09:00)
--- NOTE | 2019-07-06 13:12 | P.DS ---
Providers Date of admission: 06/23/19 16:22 Expected date of discharge: 06/24/19 Attending physician: Kelsey Melvin Consults: 06/23/19 17:34 Consult Physician Routine Consulting Provider: Erna Mendiola Consult Reason/Comments: headache, visual changes Do you want consulting provider notified?: Yes Primary care physician: Slade Gonzalez Hospital Course: Discharge diagnosis Hypertensive urgency with headache and vomiting. Improved now. Blood pressure is on the lower side. Acute migraine episode. Resolved now History of neurodegeneration with iron atrial fibrillation and was previously workedup at [facility] History of asthma with exacerbations including ICU admission GERD History of seizure disorder Hypothyroidism Degenerative joint disease History of cervical cancer History of migraine headache and currently not on any medications at home. Nephrology is his history History of MRSA History of bariatric surgery History of cholecystectomy Anxiety/depression at 7 DVT prophylaxis Hospital course Ms. Delgado is a 38 year-old woman with PMHx of asthma, GERD, seizure, hypothyroidism, bulemia, herniated disc, cervical cancer, migraines, neurodegeneration with iron accumulation, cervical dystonia, anxiety, depression, who was sent by her family physician for headache and vision changes. Patient states that she's had migraines before. Her headache was about 7/10 pain, with photophobia. Improved when lying down, no pulsatile tinnitus. Patient has had vision changes before with migraines, but per family physician's recommendation, she came to the emergency room. Her headache has improved and vision is back to baseline. Patient sees a neurologist at [facility], and gets botox for her cervical dystonia. Patient with no complaints at this time. Patient was continued on pain management and symptomatic management for migraine headache. Continued on Zofran when necessary. Patient did have elevated blood pressure on admission likely due to pain which is much improved now. No need for antihypertensive at this time. CT head showed no acute cardiopulmonary process. Patient was seen by neurology and recommends no further workup. Recommends to follow with her neurologist for starting migraine prophylaxis dictations along with MRI of the brain as an outpatient. Discussed with patient in detail regarding further management and care and follow-up with her neurologist. Patient did improve symptomatically. No headache or dizziness. Tolerating oral diet. Patient is being discharged home today. PHYSICAL EXAMINATION: Patient is lying in the bed comfortably, no acute distress, awake alert and oriented.. HEENT: Normocephalic. Neck is supple. Pupils reactive. Nostrils clear. Oral cavity is moist. Ears reveal no drainage. Neck reveals no JVD, carotid bruits, or thyromegaly. CHEST EXAMINATION: Trachea is central. Symmetrical expansion. Lung cervantes clear to auscultation and percussion. CARDIAC: Normal S1, S2 with no gallops. No murmurs ABDOMEN: Soft. Bowel sounds normal. No organomegaly. No abdominal bruits. Extremities: reveal no edema. No clubbing or cyanosis Neurologically awake, alert, oriented x3 with well-coordinated movements. No focal deficits noted Skin: No rash or skin lesions. Psychiatric: Coperative. Nonsuicidal. Anxious. Musculoskeletal: No joint swelling or deformity. Normal range of motion. Vital Signs Temp Pulse Pulse Resp BP BP Pulse Ox 06/24/19 00:00 98.3 F 88 18 90/55 97 06/23/19 23:30 88 18 06/23/19 23:25 88 18 06/23/19 19:15 18 06/23/19 18:25 98.4 F 92 18 135/85 99 06/23/19 18:11 136/85 06/23/19 18:07 136/85 06/23/19 17:57 98.5 F 110 H 18 156/91 98 06/23/19 13:05 97.8 F 107 H 18 144/91 98 Intake and Output 06/23/19 06/23/19 06/24/19 14:59 22:59 06:59 Intake Total 480 Balance 480 Intake: Oral 480 Other: # Voids 1 Weight 72.575 kg 72.575 kg 80 kg Total time taken greater than 35 minutes including 18 minutes for counseling and coordination of care. Patient Condition at Discharge: Stable Plan - Discharge Summary Discharge Rx Participant: No New Discharge Prescriptions: Continue Omalizumab [Xolair] 300 mg SQ Q28D Medroxyprogesterone Acetate [Depo-Provera] 150 mg IM Q84D Levalbuterol HCl [Xopenex Nebulized] 0.63 mg INHALATION QID PRN PRN Reason: sob HYDROcodone/APAP 7.5-325MG [[place] 7.5-325] 1 tab PO Q6HR PRN #120 tab PRN Reason: Pain Cholecalciferol [Vitamin D3 (25 Mcg = 1000 Iu)] 1,000 unit PO DAILY PARoxetine HCL [Paxil] 40 mg PO HS@1999 Albuterol Inhaler [Ventolin Hfa Inhaler] 2 puff INHALATION Q6HR PRN PRN Reason: Shortness Of Breath Methylphenidate HCl [Concerta] 36 mg PO DAILY@0700 Levothyroxine Sodium [Synthroid] 137 mcg PO SUMOTUWETHSA Prednisolone Acetate/Pf [Prednisolone Acet 1% Eye Drop] 1 drop BOTH EYES TID busPIRone HCL 10 mg PO BID@0700,1500 tiZANidine HCL 4 mg PO Q8H PRN PRN Reason: Muscle Spasm traZODone HCL 50 - 100 mg PO HS@1999 Discharge Medication List Levalbuterol HCl [Xopenex Nebulized] 0.63 mg INHALATION QID PRN 07/10/18 [History] Medroxyprogesterone Acetate [Depo-Provera] 150 mg IM Q84D 07/10/18 [History] Omalizumab [Xolair] 300 mg SQ Q28D 07/10/18 [History] HYDROcodone/APAP 7.5-325MG [[place] 7.5-325] 1 tab PO Q6HR PRN #120 tab 07/28/18 [Rx] Cholecalciferol [Vitamin D3 (25 Mcg = 1000 Iu)] 1,000 unit PO DAILY 08/10/18 [History] PARoxetine HCL [Paxil] 40 mg PO HS@199911/24/18 [History] Albuterol Inhaler [Ventolin Hfa Inhaler] 2 puff INHALATION Q6HR PRN 12/18/18 [History] Methylphenidate HCl [Concerta] 36 mg PO DAILY@0700 04/09/19 [History] Levothyroxine Sodium [Synthroid] 137 mcg PO SUMOTUWETHSA 06/22/19 [History] Prednisolone Acetate/Pf [Prednisolone Acet 1% Eye Drop] 1 drop BOTH EYES TID 06/22/19 [History] busPIRone HCL 10 mg PO BID@0700,1500 06/23/19 [History] tiZANidine HCL 4 mg PO Q8H PRN 06/23/19 [History] traZODone HCL 50 - 100 mg PO HS@199906/23/19 [History] Follow up Appointment(s)/Referral(s): Slade Gonzalez MD [Primary Care Provider] - 1-2 days Patient Instructions/Handouts: Acute Headache (DC) Discharge Disposition: HOME SELF-CARE
== END 2019-06-24 12:01 | disposition home or self-care (01) ==
LOC: EC 12:42 → 1SOBS 16:22
PROVIDERS: ADMIT Hospitalist; ATTEND Hospitalist
DX: I16.0 Hypertensive urgency (principal); I10 Essential (primary) hypertension; G43.909 Migraine, unspecified, not intractable, without status migrainosus; G31.89 Other specified degenerative diseases of nervous system; G93.89 Other specified disorders of brain; J45.909 Unspecified asthma, uncomplicated; K21.9 Gastro-esophageal reflux disease without esophagitis; Z86.69 Personal history of other diseases of the nervous system and sense organs; E03.9 Hypothyroidism, unspecified; M19.90 Unspecified osteoarthritis, unspecified site; Z85.41 Personal history of malignant neoplasm of cervix uteri; Z87.448 Personal history of other diseases of urinary system; Z86.14 Personal history of Methicillin resistant Staphylococcus aureus infection; Z98.84 Bariatric surgery status; Z90.49 Acquired absence of other specified parts of digestive tract; F41.9 Anxiety disorder, unspecified; F32.9 Major depressive disorder, single episode, unspecified; F50.2 Bulimia nervosa; M51.9 Unspecified thoracic, thoracolumbar and lumbosacral intervertebral disc disorder; G24.3 Spasmodic torticollis; Z87.820 Personal history of traumatic brain injury; Z79.899 Other long term (current) drug therapy; Z79.3 Long term (current) use of hormonal contraceptives; Z79.890 Hormone replacement therapy; Z79.52 Long term (current) use of systemic steroids; Z79.891 Long term (current) use of opiate analgesic; Z88.8 Allergy status to other drugs, medicaments and biological substances; Z87.19 Personal history of other diseases of the digestive system; Z87.11 Personal history of peptic ulcer disease; Z86.2 Personal history of diseases of the blood and blood-forming organs and certain disorders involving the immune mechanism; Z87.09 Personal history of other diseases of the respiratory system; Z87.442 Personal history of urinary calculi; Z96.642 Presence of left artificial hip joint; Z98.890 Other specified postprocedural states; Z90.89 Acquired absence of other organs; Z87.81 Personal history of (healed) traumatic fracture; Z91.89 Other specified personal risk factors, not elsewhere classified; Z82.5 Family history of asthma and other chronic lower respiratory diseases; Z80.8 Family history of malignant neoplasm of other organs or systems; Z80.0 Family history of malignant neoplasm of digestive organs
CPT/HCPCS: 96375 ×2; 96376; 96374; 99285; 36415; 93005; 80053; 80048; 85652; 83735; 84484; 85025 ×2; 86140; 81003; 81025; 71046; 70450; G0378 ×2; J1200; J2765; C9113 ×2

== ENCOUNTER → 2019-06-25 | Outpatient (CLI) | payer OTHER ==
[2019-06-25 12:10] VITALS: BP 144/93; PULSE 97; RESP 20
--- NOTE | 2019-06-27 15:11 | P.PAINPG ---
Subjective Progress Note Date: 06/25/19 This is a follow-up for 38-year-old female who presents with cervical muscle spasms, chronic low back pain, mid back pain. She has recently started Botox injections in the cervical area and it is helping her cervical dystonia, next set of injections is scheduled for 07/14/2019. She also has left hip avascular necrosis from the steroids from asthma exacerbations, and she underwent hip replacement. Her pain has been managed by a combination of interventional pain procedures and medications. Today, her primary pain is located in bilateral occipital region, with radiation to top of head as well as bilateral trapezius, associated with headaches. She is inquiring about occipital nerve blocks. She denies any side effects from the medications we are providing her, medications are helping her function. She reports that she continues to do yoga. Review of systems is negative for chest pain, palpitations, shortness of breath, bowel or bladder incontinence, new onset weakness, numbness or tingling, fevers, chills, night sweats, stroke-like symptoms. She was admitted recently for hypertensive crisis with blurry vision, however has recovered from this and does not endorse any symptoms today. She reports that she has been under emotional stress recently, as her son around this time of year. She does follow with her psychiatrist and therapist. She denies suicidal and homicidal thoughts. Objective Vital Signs: Reviewed in EMR GENERAL: Well appearing, in no acute distress, PSYCH: Mood and affect is appropriate. Awake, alert, and oriented SKIN: Skin color, texture, turgor normal, no rashes or lesions HEENT: Normocephalic, atraumatic. EOM intact CV: No pedal edema RESP: Respirations are unlabored, no audible wheezing GI: Abdomen non-distended MUSCULOSKELETAL: She does appear to have contracted sternocleidomastoid on the right side, her head is tilted to the left Neck: Tense neck muscles, bilateral occipital Tinel's is positive Gait: She uses a walker to walk NEUR: No loss of sensation is noted. Cranial nerves are grossly intact. Assessment and Plan Assessment: Assessment: 1. Severe muscle spasm of undetermined etiology, cervical dystonia 2. Lumbar spondylosis 3. Chronic opiate use 4. Avascular necrosis of the hip status post hip replacement 5. Bilateral occipital neuralgia Plan: 1. Explanation: Opioid and psychological risk scores were reviewed. Diagnoses, prognoses, and multiple treatment options including but not limited to physical therapy, interventional therapies, adjuvant medical therapies, narcotic medication therapies, and surgery were discussed with the patient and all questions were answered to the patient's satisfaction. 2. Opioid agreement: On file 3. Counseling: She was advised to stay as active as possible 4. Procedures: will schedule bilateral occipital nerve blocks 5. Consultations: None 6. Investigations: Drug screen reviewed and is congruent 7. Medications: Her [place] and Zanaflex were refilled 8. Disposition: for above mentioned procedure and in 8 weeks for medication management PQRS Measure Charge Sheet Measure #130: Documentation of Current Meds in Medical Chart: Patient's medications documented in chart Measure #226: Tobacco Use: Screen & Cessation Intervention: Pt not a tobacco user Measure #111: Pneumonia Vaccination: Pneumococcal vaccine administered or previously received Measure #47: Advance Care Plan: Advance care planning discussed & documented, pt chose/unable to give Measure #412: Opioid Treatment Agreement: Documented signed opioid trtmnt agreemnt min once during opioid trtmnt Measure #408: Opioid Therapy Follow-up Evaluation: Patient had f/u eval minimum every 3 months during opioid therapy Measure #317: Preventitive Care & Scrn High Bld Press & F/U: Pre-hypertensive or hypertensive BP documented, pt will f/u with PCP Measure #128: Body Mass Index (BMI) Screening & Follow-up: BMI documented ABOVE normal parameters - f/u documented Measure #131: Pain Assessment & Follow-up: Pain positive & plan documented, Follow-up scheduled Measure #431: Unhealthy Alcohol Use Preventative Care & Scrn: Patient not identified as an unhealthy alcohol user PQRS Narrative: Smoking Status Never smoker Narcotic Agreement Date Signed 01/13/18 Pain Intensity [Neck] 4 Hx Alcohol Use (MH) No Home Medications: Ambulatory Orders Levalbuterol HCl [Xopenex Nebulized] 0.63 mg INHALATION QID PRN 07/10/18 Medroxyprogesterone Acetate [Depo-Provera] 150 mg IM Q84D 07/10/18 Omalizumab [Xolair] 300 mg SQ Q28D 07/10/18 HYDROcodone/APAP 7.5-325MG [[place] 7.5-325] 1 tab PO Q6HR PRN #120 tab 07/28/18 Cholecalciferol [Vitamin D3 (25 Mcg = 1000 Iu)] 1,000 unit PO DAILY 08/10/18 PARoxetine HCL [Paxil] 40 mg PO HS@199911/24/18 Albuterol Inhaler [Ventolin Hfa Inhaler] 2 puff INHALATION Q6HR PRN 12/18/18 Botox Injection 1 dose IM Q90D 12/18/18 predniSONE 10 mg PO DAILY PRN 12/18/18 Methylphenidate HCl [Concerta] 36 mg PO DAILY@0700 04/09/19 Levothyroxine Sodium [Synthroid] 137 mcg PO SUMOTUWETHSA 06/22/19 Prednisolone Acetate/Pf [Prednisolone Acet 1% Eye Drop] 1 drop BOTH EYES TID 06/22/19 Ketoconazole 2% Cream [Nizoral 2%] 1 applic TOPICAL BID PRN 06/23/19 Triamcinolone 0.1% Cream [Kenalog 0.1% Cream] 1 applicatio TOPICAL BID PRN 06/23/19 busPIRone HCL 10 mg PO BID@0700,1500 06/23/19 tiZANidine HCL 4 mg PO Q8H PRN 06/23/19 traZODone HCL 100 mg PO HS@199906/23/19 Controlled Substance Measures - Controlled Substance Measures Is patient prescribed a controlled substance at discharge?: Yes When asked, does pt state using other controlled substances?: No If prescribed controlled substance>3 days was MAPS reviewed?: Yes If Rx opioid, was Start Talking consent form obtained?: Yes If opioid is for acute pain is fill amount 7 days or less?: No Was information provided regarding opioid addiction?: Yes
== END | disposition home or self-care (01) ==
LOC: PNWHC3 11:51
PROVIDERS: ATTEND Anesthesiology
DX: M47.816 Spondylosis without myelopathy or radiculopathy, lumbar region (principal); G24.3 Spasmodic torticollis; M62.838 Other muscle spasm; M87.859 Other osteonecrosis, unspecified femur; M54.81 Occipital neuralgia; Z79.891 Long term (current) use of opiate analgesic; Z79.890 Hormone replacement therapy; Z79.899 Other long term (current) drug therapy
CPT/HCPCS: 99211

== ENCOUNTER 2019-06-30 13:14 | Observation (INO) | payer OTHER ==
[2019-06-30 14:09] LABS: Basophils % (A) 1 %; Eosinophils % (A) 1 %; HCT 42.4 % (34.0-46.0); HGB 14.4 gm/dL (11.4-16.0); Lymphocytes # (A) 1.4 k/uL (1.0-4.8); Lymphocytes % (A) 19 %; MCH 31.9 pg (25.0-35.0); MCHC 33.8 g/dL (31.0-37.0); MCV 94.5 fL (80.0-100.0); Mean Platelet Volume 7.1; Monocytes # (A) 0.3 k/uL (0-1.0); Monocytes % (A) 4 %; Neutrophils # (A) 5.5 k/uL (1.3-7.7); Neutrophils % (A) 74 %; Platelet Count 216 k/uL (150-450); RBC 4.49 m/uL (3.80-5.40); RDW 11.8 % (11.5-15.5); WBC 7.4 k/uL (3.8-10.6)
[2019-06-30 14:10] LABS: Albumin 4.8 g/dL (3.5-5.0); Calcium 9.5 mg/dL (8.4-10.2); Potassium 3.7 mmol/L (3.5-5.1); Total Bilirubin 0.7 mg/dL (0.2-1.3); Total Protein 7.5 g/dL (6.3-8.2)
[2019-06-30 14:32] LABS: Partial Thromboplastin Time 20.6 sec (22.0-30.0)
--- NOTE | 2019-06-30 14:35 | XR ---
EXAMINATION TYPE: XR chest 2V DATE OF EXAM: 06/30/2019 COMPARISON: Prior chest x-ray 06/23/2019 HISTORY: Shortness of breath, weakness and left-sided chest pain TECHNIQUE: Frontal and lateral views of the chest are obtained. FINDINGS: There is no focal air space opacity, pleural effusion, or pneumothorax seen. The cardiac silhouette size is within normal limits. The osseous structures are intact. There are overlying car diac leads. Patient is rotated. IMPRESSION: No acute cardiopulmonary process. Rotated exam, follow-up as indicated.
[2019-06-30] MEDS ORDERED: SODIUM CHLORIDE 0.9% 1,000 ML IV STA ×2 (14:46→16:47)
[2019-06-30] MEDS ORDERED: ONDANSETRON 4 MG/2 ML VIAL IVP STA (14:46)
[2019-06-30] MEDS ORDERED: KETOROLAC 30 MG/ML 1 ML VIAL IVP STA (14:50)
[2019-06-30] MEDS ORDERED: diphenhydrAMINE 50 MG/ML 1 ML VIAL IVP STA (14:50)
--- NOTE | 2019-06-30 16:02 | ED ---
General Adult HPI - General Chief complaint: Chest Pain Stated complaint: Flu symptoms Time Seen by Provider: 06/30/19 14:07 Source: patient Mode of arrival: EMS Limitations: no limitations - History of Present Illness Initial comments: Patient is a 38-year-old female presenting to emergency Department with complaints of a headache, blurry vision, chest pain and shortness of breath that started yesterday. Patient is well-known to the ER. She was here one week ago for similar complaints. She was admitted to observation and did have neurology consult. No acute findings were found on imaging or lab work. She was to follow-up with her neurologist and she says she does have an appointment in a couple weeks. Patient admits to having a mild cough as well. She denies vomiting, abdominal pain, diarrhea. She does admit to nausea. She denies any new falls or injuries. Denies any speech changes. Shee denies any other complaints at this time. On arrival to the ER, patient was slightly tachycardia at 108, rest of vitals normal. - Related Data Home Medications Medication Instructions Recorded Confirmed Levalbuterol HCl [Xopenex 0.63 mg INHALATION QID PRN 07/10/18 06/30/19 Nebulized] Medroxyprogesterone Acetate 150 mg IM Q84D 07/10/18 06/30/19 [Depo-Provera] Omalizumab [Xolair] 300 mg SQ Q28D 07/10/18 06/30/19 Cholecalciferol [Vitamin D3 (25 1,000 unit PO DAILY 08/10/18 06/30/19 Mcg = 1000 Iu)] PARoxetine HCL [Paxil] 40 mg PO HS@199911/24/18 06/30/19 Albuterol Inhaler [Ventolin Hfa 2 puff INHALATION Q6HR PRN 12/18/18 06/30/19 Inhaler] Botox Injection 1 dose IM Q90D 12/18/18 06/30/19 predniSONE 10 mg PO DAILY PRN 12/18/18 06/30/19 Methylphenidate HCl [Concerta] 36 mg PO DAILY@0700 04/09/19 06/30/19 Levothyroxine Sodium [Synthroid] 137 mcg PO SUMOTUWETHSA 06/22/19 06/30/19 Prednisolone Acetate/Pf 1 drop BOTH EYES TID 06/22/19 06/30/19 [Prednisolone Acet 1% Eye Drop] busPIRone HCL 10 mg PO BID@0700,1500 06/23/19 06/30/19 tiZANidine HCL 4 mg PO Q8H PRN 06/23/19 06/30/19 traZODone HCL 50 - 100 mg PO HS@2000 06/23/19 06/30/19 Previous Rx's Medication Instructions Recorded HYDROcodone/APAP 7.5-325MG [[place] 1 tab PO Q6HR PRN #120 tab 07/28/18 7.5-325] Allergies Allergy/AdvReac Type Severity Reaction Status Date / Time albuterol AdvReac Rapid Verified 06/30/19 17:24 Heart Rate Review of Systems ROS Statement: Those systems with pertinent positive or pertinent negative responses have been documented in the HPI. ROS Other: All systems not noted in ROS Statement are negative. Past Medical History Past Medical History: Asthma, Cancer, GERD/Reflux, Seizure Disorder, Thyroid Disorder Additional Past Medical History / Comment(s): TACHYCARDIA, peptic ulcers, anemia."HAS BEEN ON VENTILATOR IN PAST D/T SEVERE ASTHMA ATTACK," BULEMIA-STATES GETTING BETTER, CONSTIPATION. HERNIATED DISC, cervical cancer. 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 Surgery on her cervix for cancer, rt foot surgery(Fx), cysto/lithotripsy , left hip replacement 12/2018 Past Anesthesia/Blood Transfusion Reactions: Postoperative Nausea & Vomiting (PONV) Past Psychological History: Anxiety, Depression Smoking Status: Never smoker Past Alcohol Use History: None Reported Past Drug Use History: None Reported - Past Family History Mother Family Medical History: Pneumonia Additional Family Medical History / Comment(s): Mother of pneumonia. Patient's son of brain cancer, last mother and father both liver cancer Son(s) Family Medical History: Cancer Additional Family Medical History / Comment(s): Son of brain cancer. Father Family Medical History: Cancer Additional Family Medical History / Comment(s): liver General Exam - General Exam Comments Initial Comments: GENERAL: Patient has her eyes closed, breathing fast. No acute distress. HEAD: Atraumatic, normocephalic. EYES: Pupils equal round and reactive to light, extraocular movements intact, sclera anicteric, conjunctiva are normal. ENT: TMs normal, nares patent, oropharynx clear without exudates. Moist mucous membranes. NECK: Normal range of motion, supple without lymphadenopathy or JVD. LUNGS: Breath sounds clear to auscultation bilaterally and equal. No wheezes rales or rhonchi. HEART: Regular rate and rhythm without murmurs, rubs or gallops. ABDOMEN: Soft, nontender, normoactive bowel sounds. No guarding, no rebound. No masses appreciated. : Deferred EXTREMITIES: Normal range of motion, no pitting or edema. No clubbing or cyanosis. Patient has 5 out of 5 strength upper and lower extremities. Patient states diminished sensation on the left lower extremity. Patient on bilateral upper extremities. She is able to ambulate to restroom. PSYCH: Normal mood, normal affect. SKIN: Warm, Dry, normal turgor, no rashes or lesions noted. Limitations: no limitations Neurological exam: Present: alert, oriented X3, CN II-XII intact (Patient is attempting to make her mouth on the event however when asked to open mouth to look and throat, mouth is symmetric.), normal gait Expanded Speech: Present: fluid speech Cranial nerves: EOM's Intact: Normal, Tongue Deviation: Normal, Nystagmus: Normal, Facial Sensation: Normal Cerebellar function: Finger to Nose: Normal, Heel to [place]: Normal, Romberg: Normal Upper motor neuron: Pronator Drift: Normal Motor strength exam: RUE: 5, LUE: 5, RLE: 5, LLE: 5 DTR: Patellar (R): 0, Patellar (L): 0, Achilles Tendon (R): 0, Achilles Tendon (L): 0 Eye Response: (4) open spontaneously Motor Response: (6) obeys commands Verbal Response: (5) oriented [place] Total: 15 Course Vital Signs 06/30/19 06/30/19 06/30/19 13:28 13:45 14:10 Temperature 98.8 F Pulse Rate 108 H 132 H Pulse Rate [ 108 H Car Wash Attendant ] Respiratory 20 20 20 Rate Blood Pressure 147/98 168/106 O2 Sat by Pulse 99 100 Oximetry 06/30/19 06/30/19 06/30/19 14:56 16:29 16:46 Temperature Pulse Rate 125 H 95 105 H Pulse Rate [ Car Wash Attendant ] Respiratory 18 18 20 Rate Blood Pressure 163/98 138/65 152/94 O2 Sat by Pulse 98 98 100 Oximetry 06/30/19 17:40 Temperature Pulse Rate 109 H Pulse Rate [ Car Wash Attendant ] Respiratory 18 Rate Blood Pressure 148/96 O2 Sat by Pulse 99 Oximetry EKG Findings - EKG Comments: EKG Findings:: Ventricular rate 108, P arrival 126, QTc 452. Sinus tachycardia, nonspecific T-wave abnormality, no acute ST segment elevation. Medical Decision Making - Medical Decision Making Patient is a 38-year-old female presenting with multiple complaints including headache, blurry vision, dizziness, chest pain. She was here one week ago for similar complaints and was admitted with neuro consult. She does have a an appointment with neurologist in a couple weeks. Her exam today is normal. She has been trying to contact for her mouth to appear asymmetric or talk however when asked to open mouth look in throat or to ask specific questions she appears normal and speech is normal. Patient was given fluids, migraine cocktail without relief his symptoms. CT of the brain was done last week and shows no acute abnormalities. EKG, troponin are both normal today. Other lab work shows no acute abnormalities. She denies any new falls or trauma. Upon reexamination, patient is still exhibiting headache, blurry vision is not feel control going home. She states her chest pain has improved. Patient was discussed with Dr. Odell. Patient will be admitted with neuro consult. Dr. English is accepting. CT of head and CTA are pending at this time. - Lab Data Result diagrams: 06/30/19 13:22 06/30/19 13: Lab Results 06/30/19 06/30/19 06/30/19 Range/Units 13:22 13:22 13:22 WBC 7.4 (3.8-10.6) k/uL RBC 4.49 (3.80-5.40) m/uL Hgb 14.4 (11.4-16.0) gm/dL Hct 42.4 (34.0-46.0) % MCV 94.5 (80.0-100.0) fL MCH 31.9 (25.0-35.0) pg MCHC 33.8 (31.0-37.0) g/dL RDW 11.8 (11.5-15.5) % Plt Count 216 (150-450) k/uL Neutrophils % 74 % Lymphocytes % 19 % Monocytes % 4 % Eosinophils % 1 % Basophils % 1 % Neutrophils # 5.5 (1.3-7.7) k/uL Lymphocytes # 1.4 (1.0-4.8) k/uL Monocytes # 0.3 (0-1.0) k/uL Eosinophils # 0.0 (0-0.7) k/uL Basophils # 0.0 (0-0.2) k/uL PT 10.0 (9.0-12.0) sec INR 1.0 (<1.2) APTT 20.6 L (22.0-30.0) sec Sodium 141 (137-145) mmol/L Potassium 3.7 (3.5-5.1) mmol/L Chloride 106 (98-107) mmol/L Carbon Dioxide 25 (22-30) mmol/L Anion Gap 10 mmol/L BUN 14 (7-17) mg/dL Creatinine 1.02 (0.52-1.04) mg/dL Est GFR (CKD-EPI)AfAm 81 (>60 ml/min/1.73 sqM) Est GFR (CKD-EPI)NonAf 70 (>60 ml/min/1.73 sqM) Glucose 92 (74-99) mg/dL Calcium 9.5 (8.4-10.2) mg/dL Total Bilirubin 0.7 (0.2-1.3) mg/dL AST 21 (14-36) U/L ALT 11 (4-34) U/L Alkaline Phosphatase 70 (38-126) U/L Troponin I (0.000-0.034) ng/mL Total Protein 7.5 (6.3-8.2) g/dL Albumin 4.8 (3.5-5.0) g/dL Influenza Type A RNA (Not Detectd) Influenza Type B (PCR) (Not Detectd) 06/30/19 06/30/19 Range/Units 13:22 15:02 WBC (3.8-10.6) k/uL RBC (3.80-5.40) m/uL Hgb (11.4-16.0) gm/dL Hct (34.0-46.0) % MCV (80.0-100.0) fL MCH (25.0-35.0) pg MCHC (31.0-37.0) g/dL RDW (11.5-15.5) % Plt Count (150-450) k/uL Neutrophils % % Lymphocytes % % Monocytes % % Eosinophils % % Basophils % % Neutrophils # (1.3-7.7) k/uL Lymphocytes # (1.0-4.8) k/uL Monocytes # (0-1.0) k/uL Eosinophils # (0-0.7) k/uL Basophils # (0-0.2) k/uL PT (9.0-12.0) sec INR (<1.2) APTT (22.0-30.0) sec Sodium (137-145) mmol/L Potassium (3.5-5.1) mmol/L Chloride (98-107) mmol/L Carbon Dioxide (22-30) mmol/L Anion Gap mmol/L BUN (7-17) mg/dL Creatinine (0.52-1.04) mg/dL Est GFR (CKD-EPI)AfAm (>60 ml/min/1.73 sqM) Est GFR (CKD-EPI)NonAf (>60 ml/min/1.73 sqM) Glucose (74-99) mg/dL Calcium (8.4-10.2) mg/dL Total Bilirubin (0.2-1.3) mg/dL AST (14-36) U/L ALT (4-34) U/L Alkaline Phosphatase (38-126) U/L Troponin I <0.012 (0.000-0.034) ng/mL Total Protein (6.3-8.2) g/dL Albumin (3.5-5.0) g/dL Influenza Type A RNA Not Detected (Not Detectd) Influenza Type B (PCR) Not Detected (Not Detectd) Disposition Clinical Impression: Vision changes, Headache, Chest pain Disposition: ADMITTED IP TO THIS HOSP Condition: Stable Is patient prescribed a controlled substance at d/c from ED?: No Decision Date: 06/30/19 Decision Time: 17:04
[2019-06-30] MEDS ORDERED: MORPHINE SULFATE 4 MG/ML SYRINGE IVP STA (16:26)
[2019-06-30] MEDS ORDERED: NALOXONE 0.4 MG/ML 1 ML VIAL IV PRN (17:01)
[2019-06-30] MEDS ORDERED: ACETAMINOPHEN TAB 325 MG TAB PO PRN (17:01)
[2019-06-30] MEDS ORDERED: ONDANSETRON 4 MG/2 ML VIAL IVP PRN (17:01)
[2019-06-30] MEDS ORDERED: KETOROLAC 30 MG/ML 1 ML VIAL IVP PRN (17:01)
--- NOTE | 2019-06-30 17:25 | CT ---
EXAMINATION TYPE: CT brain wo con DATE OF EXAM: 06/30/2019 COMPARISON: 06/23/2019 HISTORY: headache CT DLP: 878.3 mGycm Automated exposure control for dose reduction was used. Multiple axial sections were obtained without contrast. Ventricles and sulci appear normal. There is no mass effect nor midline shift. There is no sign of in tracranial hemorrhage. The calvarium is intact. There is no evidence of cerebral edema. Skull base is intact. IMPRESSION: Normal unenhanced head CT scan. No change.
--- NOTE | 2019-06-30 17:32 | CT ---
EXAMINATION TYPE: CT angio C[place] DATE OF EXAM: 06/30/2019 COMPARISON: HISTORY: headache CT DLP: 983.8 mGycm Automated exposure control for dose reduction was used. CONTRAST: Performed with IV Contrast, patient injected with 100 mL of Isovue 370. There are 3-D post processed images. Multiple axial sections were obtained from the skull base to the vertex of the brain with IV contrast . There is arterial flow in both internal carotid arteries. There is arterial flow in the anterior m[place] and posterior cerebral arteries bilaterally. There is normal contrast opacification of the venous sinuses. There is arterial flow in the vertebrobasilar artery system. There is arterial flow in both distal vertebral arteries. I see no evidence of intracranial aneurysm or neovascularity. There is no mass effect. There is no evidence of hemodynamic stenosis. IMPRESSION: Negative CT angiogram of the brain.
[2019-06-30] MEDS: MORPHINE SULFATE 4 MG/ML SYRINGE IV PRN (20:23)
[2019-06-30] MEDS ORDERED: tiZANidine 4 MG TAB PO PRN (20:34)
[2019-06-30] MEDS ORDERED: ALBUTEROL NEBULIZED 2.5 MG/3 ML INHALATION PRN (20:34)
[2019-06-30] MEDS ORDERED: LEVALBUTEROL HCL 0.63 MG INHALATION PRN (20:34)
[2019-06-30] MEDS ORDERED: HYDROcodone/APAP 7.5-325MG 1 EACH TAB PO PRN (20:34)
[2019-06-30] MEDS: prednisoLONE ACETATE 1% OPHTH DROPS 5 ML BTL BOTH EYES SCH (21:13)
[2019-06-30] MEDS: PARoxetine 20 MG TAB PO SCH (21:13)
[2019-06-30] MEDS: ENOXAPARIN 40 MG/0.4 ML SYRINGE SQ SCH (21:13)
[2019-06-30] MEDS: traZODone HCL 100 MG TAB PO SCH (22:43)
[2019-07-01] MEDS: LEVOTHYROXINE 137 MCG TAB PO SCH (05:55)
[2019-07-01] MEDS: MORPHINE SULFATE 4 MG/ML SYRINGE IV PRN ×4 (06:12→20:27)
[2019-07-01] MEDS: METHYLPHENIDATE HCL 10 MG TAB PO SCH ×2 (11:20→11:23)
[2019-07-01] MEDS: busPIRone HCl 10 MG TAB PO SCH ×2 (11:20→11:23)
[2019-07-01] MEDS: prednisoLONE ACETATE 1% OPHTH DROPS 5 ML BTL BOTH EYES SCH ×3 (11:21→20:26)
[2019-07-01] MEDS ORDERED: PROCHLORPERAZINE 5 MG TAB PO STA (11:59)
[2019-07-01] MEDS ORDERED: KETOROLAC 30 MG/ML 1 ML VIAL IVP STA (11:59)
[2019-07-01] MEDS ORDERED: SODIUM CHLORIDE 0.9% 500 ML 500 ML IV ONE (11:59)
[2019-07-01] MEDS: MAGNESIUM SULFATE-D5W PMX 1 GM in DEXTROSE/WATER 1 100ML.BAG IVPB SCH ×2 (13:17→13:26)
--- NOTE | 2019-07-01 13:22 | P.CNNES ---
History of Present Illness Consult date: 07/01/19 Reason for Consult: headache, blurry vision History of Present Illness: HISTORY OF PRESENT ILLNESS: Thank you for allowing me to evaluate Ms. Josephine Delgado. Ms. Delgado is a 38 year-old woman with PMHx of asthma, GERD, seizure, hypothyroidism, bulemia, herniated disc, cervical cancer, migraines, neurodegeneration with iron accumulation, cervical dystonia, anxiety, depression, who was brought in by ambulance for headache and vision changes. Patient states that she started having 10/10 pain 2 days ago and blurry vision, worse in L eye than R eye. Headache initially started in the front of her head then moved to the back of her head. Pt feels that the headache is making her spasms worse or maybe the spasm is causing her headache. Patient got her botox injection for cervical dystonia almost 3 months ago, and patient will be seeing her neurologist this Saturday. Patient denies any pulsatile tinnitus, states head ache improves when lying down in dark room. Endorses photophobia. At this time, headache is about 8/10 pain. Denies any recent sickness, fever, diarrhea, coughing. Her blood pressure increased significantly along with her heart beat when she stood up this morning and yesterday and patient started feeling dizzy and having ringing in her ears. Her son a couple of years ago around this time, so she may be a bit more stressed, but not unusuallly. She has not been sleeping well due to pain. Of note, patient was seen by me just about a week ago for similar symptoms, which had improved by the time I evaluated this patient. "Pt sent by her family physician for headache and vision changes. Patient states that she's had migraines before. Her headache was about 7/10 pain, with photophobia. Improved when lying down, no pulsatile tinnitus. Patient has had vision changes before with migraines, but per family physician's recommendation, she came to the emergency room. Her headache has improved and vision is back to baseline. Patient sees a neurologist at [facility], and gets botox for her cervical dystonia. Patient wondering if botox can cause headaches (discussed with patient that botox is used for migraines). Patient with no complaints at this time." PAST MEDICAL HISTORY: asthma, GERD, seizure, hypothyroidism, bulemia, herniated disc, cervical cancer, migraines, neurodegeneration with iron accumulation, anxiety, depression PAST SURGICAL HISTORY: bariratric surgery, cholecystectomy, tonsillectomy, nasal fracture repair, ORIF L elbow, surgery for cervical cancer, L hip replacement HOME MEDICATIONS: Omalizumab, paroxetine, botox injection, prednisone, methylphenidate, synthroid, buspirone, tizanidine, trazodone ALLERGIES: Albuterol SOCIAL HISTORY: Never smoker FAMILY HISTORY: Mother of PNA. Son from brain cancer. Father had liver cancer. REVIEW OF SYSTEMS: The 14 systems are reviewed and no additional points are identified compared to the review of systems documented history and physical PHYSICAL EXAMINATION: VITAL SIGNS: T 98.5 HR 126 RR 18 BP 151/97 O2 sat 100% on RA GEN.: NAD, pleasant and cooperative. Patient having episodes of spasms/cramping during eval HEENT: NCAT, sclera without icterus NECK: Supple (but cautious when moving her neck with her cervical dystonia issue s) SKIN AND EXTREMITIES: Warm to touch, no edema NEURO: MENTAL STATUS: Patient alert and oriented to self, place, time. Able to name the current president. Speech fluent, able to name and repeat, following all commands readily. CRANIAL NERVES II THROUGH XII: II: Pupils are equal and reactive to light symmetrically. Visual cervantes are intact. III, IV, : No ptosis. Extraocular movements full. No nystagmus. V: Decreased sensation to LT from L V1-3. VII. Mild facial asymmetry. VIII: Hearing intact to finger rub bilaterally. IX, X: Symmetric palate elevation. XI: Shoulder shrug intact. XII: Tongue midline without fasciculation or atrophy. MOTOR: Normal bulk/tone. No pronator drift or tremor. Strength is 5/5 RUE/RLE and 4+/5 LUE. 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 REFLEXES: 2+ throughout. Toes are downgoing. COORDINATION: Finger to nose intact. No dysmetria. GAIT: Antalgic gait, prefers R leg, patient uses a walker at baseline DIAGNOSTIC TESTING: LABORATORY: WBC 7.4 Hgb 14.4 Platelet 216 Na 141 K 3.7 Cl 106 CO2 25 BUN 14 Cr 1.02 glucose 92 AST 21 ALT 11 AlkPhos 70 troponin <0.012 Influenza not detected IMAGING: CT Head w/o contrast 06/23/2019: No acute intracranial process is seen at this time. MRI brain w/o contrast 03/20/2016: Minimal nonspecific white matter changes felt stable likely of clinical significance and mild to minimal chronic ethmoid sinus disease. No significant new finding is seen to account for patient's symptoms ASSESSMENT: Ms. Delgado is a 38 year-old woman with PMHx of asthma, GERD, seizure, hypothyroidism, bulemia, herniated disc, cervical cancer, migraines, neurodegeneration with iron accumulation, cervical dystonia, anxiety, depression, who was brought in by ambulance for headache and vision changes. Headache and blurry vision have been persistent, and patient endorsing L facial numbness and LUE weakness. Patient returns to ED just after 1 week of neuro evaluation. RECOMMENDATIONS: 1. MRI brain w/o contrast 2. Lumbar Puncture for opening and closing pressure 3. Patient with follow up this Saturday. Patient will discuss with her neurologist about starting migraine prophylaxis medications 4. ED precautions discussed with patient. 5. Neurology will continue to follow Past Medical History Past Medical History: Asthma, Cancer, GERD/Reflux, Seizure Disorder, Thyroid Disorder Additional Past Medical History / Comment(s): TACHYCARDIA, peptic ulcers, anemia."HAS BEEN ON VENTILATOR IN PAST D/T SEVERE ASTHMA ATTACK," BULEMIA-STATES GETTING BETTER, CONSTIPATION. HERNIATED DISC, cervical cancer. 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 Surgery on her cervix for cancer, rt foot surgery(Fx), cysto/lithotripsy , left hip replacement 12/2018 Past Anesthesia/Blood Transfusion Reactions: Postoperative Nausea & Vomiting (PONV) Past Psychological History: Anxiety, Depression Smoking Status: Never smoker Past Alcohol Use History: None Reported Past Drug Use History: None Reported - Past Family History Mother Family Medical History: Pneumonia Additional Family Medical History / Comment(s): Mother of pneumonia. Patient's son of brain cancer, last mother and father both liver cancer Son(s) Family Medical History: Cancer Additional Family Medical History / Comment(s): Son of brain cancer. Father Family Medical History: Cancer Additional Family Medical History / Comment(s): liver Medications and Allergies Home Medications Medication Instructions Recorded Confirmed Type Levalbuterol HCl [Xopenex 0.63 mg INHALATION QID PRN 07/10/18 06/30/19 History Nebulized] Medroxyprogesterone Acetate 150 mg IM Q84D 07/10/18 06/30/19 History [Depo-Provera] Omalizumab [Xolair] 300 mg SQ Q28D 07/10/18 06/30/19 History HYDROcodone/APAP 7.5-325MG [[place] 1 tab PO Q6HR PRN #120 tab 07/28/18 06/30/19 Rx 7.5-325] Cholecalciferol [Vitamin D3 (25 1,000 unit PO DAILY 08/10/18 06/30/19 History Mcg = 1000 Iu)] PARoxetine HCL [Paxil] 40 mg PO HS@199911/24/18 06/30/19 History Albuterol Inhaler [Ventolin Hfa 2 puff INHALATION Q6HR PRN 12/18/18 06/30/19 History Inhaler] Methylphenidate HCl [Concerta] 36 mg PO DAILY@0700 04/09/19 06/30/19 History Levothyroxine Sodium [Synthroid] 137 mcg PO SUMOTUWETHSA 06/22/19 06/30/19 History Prednisolone Acetate/Pf 1 drop BOTH EYES TID 06/22/19 06/30/19 History [Prednisolone Acet 1% Eye Drop] busPIRone HCL 10 mg PO BID@0700,1500 06/23/19 06/30/19 History tiZANidine HCL 4 mg PO Q8H PRN 06/23/19 06/30/19 History traZODone HCL 50 - 100 mg PO HS@199906/23/19 06/30/19 History Allergies Allergy/AdvReac Type Severity Reaction Status Date / Time albuterol AdvReac Rapid Verified 06/30/19 17:24 Heart Rate Physical Examination - Vital Signs Vital Signs: Vital Signs Temp Pulse Pulse Pulse Resp BP BP 07/01/19 09:55 130 H 20 147/86 07/01/19 09:40 98.5 F 126 H 18 151/97 07/01/19 07:15 98.0 F 89 18 112/73 07/01/19 04:00 98.1 F 92 18 95/61 06/30/19 22:52 98.0 F 99 17 127/83 06/30/19 19:14 99.0 F 91 18 130/86 06/30/19 17:40 109 H 18 148/96 06/30/19 16:46 105 H 20 152/94 06/30/19 16:29 95 18 138/65 06/30/19 14:56 125 H 18 163/98 06/30/19 14:10 132 H 20 168/106 06/30/19 13:45 108 H 20 06/30/19 13:28 98.8 F 108 H 20 147/98 Pulse Ox 07/01/19 09:55 100 07/01/19 09:40 100 07/01/19 07:15 99 07/01/19 04:00 97 06/30/19 22:52 97 06/30/19 19:14 99 06/30/19 17:40 99 06/30/19 16:46 100 06/30/19 16:29 98 06/30/19 14:56 98 06/30/19 14:10 100 06/30/19 13:45 06/30/19 13:28 99 Intake and Output 06/30/19 07/01/19 07/01/19 22:59 06:59 14:59 Intake Total 320 Balance 320 Intake: Oral 120 Other 200 Other: # Voids 1 3 Weight 72.575 kg 94.5 kg Results - Laboratory Findings CBC and BMP: 06/30/19 13:22 06/30/19 13:22 Abnormal Lab Findings: Abnormal Labs 06/30/19 13:22 APTT 20.6 L
[2019-07-01] MEDS ORDERED: LORazepam 1 MG TAB PO STA (13:25)
[2019-07-01 15:42] LABS: Glucose,CSF 51 mg/dL (40-70); Total Protein,CSF 23 mg/dL (12-60)
--- NOTE | 2019-07-01 17:49 | MR ---
EXAMINATION TYPE: MR brain wo con DATE OF EXAM: 07/01/2019 COMPARISON: 03/20/2016 HISTORY: L-sided numbness, headache, vision changes multiecho imaging of the brain was performed with no contrast. FINDINGS: Ventricles have normal size. There is no mass effect nor midline shift. There is no sign of intracran ial hemorrhage. The corpus callosum appears normal. Sella turcica is normal. Brainstem is intact. The re is a single 5 mm focus of increased signal at the roblero-white matter junction left parietal lobe on the T2 and FLAIR images. This appears increased slightly compared to old exam. There is 3 mm focus i ncreased signal right posterior frontal lobe. There is no evidence of cortical infarct. There is no evidence of orbital mass. IMPRESSION: Single small focus of white matter high increased signal in the left parietal lobe slightly increased in size compared to old exam. 3 mm similar focus right posterior frontal lobe white matter unchanged . Otherwise negative exam. No evidence of cortical infarct.
--- NOTE | 2019-07-01 19:45 | P.HPIM ---
History of Present Illness H&P Date: 07/01/19 Chief Complaint: headache dizziness bloody vision History of presenting complaint: This is a 38-year-old patient of Dr. Gonzalez. 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 Patient also received Botox for cervical dystonia. Patient now presents with one-day history of headache, the back of the head, blurry vision, wears eyeglasses and not feeling right. Also states her blood pressures been running high and increased heart rate. Patient was just discharged from the hospital following similar symptoms was seen by Dr. Mendiola from neurology to get a computed tomography scan of the head and was discharged. No fever no chills. Questionable weakness of left upper arm. 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 Patient also received Botox for cervical dystonia Social history: Does not smoke or drink alcohol. has 2 daughters at home.son of brain can cer Physical examination: VITAL SIGNS: 98.8, 108, 20, 147/98, 99% on room air-upon presentation GENERAL: BMI 38.1, sitting edge of the bed, slightly anxious. EYES: Pupils equal. Conjunctiva normal. HEENT: External appearance of nose and ears normal, oral cavity grossly normal. NECK: JVD not raised; masses not palpable. HEART: First and second heart sounds are normal; no edema. LUNGS: Respiratory rate normal; clear to auscultation. ABDOMEN: Soft, nontender, liver spleen not palpable, no masses palpable. PSYCH: Alert and oriented x3; mood and affect anxiousl. NEUROLOGICAL: Cranial nerves grossly intact; no facial asymmetry, power and sensation grossly intact. LYMPHATICS: No lymph nodes palpable in the axilla and neck INVESTIGATIONS, reviewed in the clinical context: White count 7.4 hemoglobin 40.4 platelets 216 potassium 4.[address] brain-nonspecific CT [place] angiogram with contrast-negative Assessment: --This patient presents with one-day history of headaches blood vision accompanied by some tachycardia and high blood pressure. Has a known history of chronic neurodegenerative disorder the brain with iron accumulation patient being followed at a [facility]. This could be a manifestation of same. Also could be migraine. Patient had complained of left arm weakness earlier. -Migraine disorder -Chronic bulimia -Chronic low back pain and cervical pain -Hypothyroidism -Depression and anxiety not otherwise specified -Obesity BMI 38.1 Plan: Home medications resumed. Care was discussed with the patient. Neurology Dr. Mendiola was consulted. She ordered a CSF with opening and closing pressure and MRI of the brain.Lovenox for DVT prophylaxis. Past Medical History Past Medical History: Asthma, Cancer, GERD/Reflux, Seizure Disorder, Thyroid Disorder Additional Past Medical History / Comment(s): TACHYCARDIA, peptic ulcers, anemia."HAS BEEN ON VENTILATOR IN PAST D/T SEVERE ASTHMA ATTACK," BULEMIA-STATES GETTING BETTER, CONSTIPATION. HERNIATED DISC, cervical cancer. 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 Surgery on her cervix for cancer, rt foot surgery(Fx), cysto/lithotripsy , left hip replacement 12/2018 Past Anesthesia/Blood Transfusion Reactions: Postoperative Nausea & Vomiting (PONV) Past Psychological History: Anxiety, Depression Smoking Status: Never smoker Past Alcohol Use History: None Reported Past Drug Use History: None Reported - Past Family History Mother Family Medical History: Pneumonia Additional Family Medical History / Comment(s): Mother of pneumonia. Patient's son of brain cancer, last mother and father both liver cancer Son(s) Family Medical History: Cancer Additional Family Medical History / Comment(s): Son of brain cancer. Father Family Medical History: Cancer Additional Family Medical History / Comment(s): liver Medications and Allergies Home Medications Medication Instructions Recorded Confirmed Type Levalbuterol HCl [Xopenex 0.63 mg INHALATION QID PRN 07/10/18 06/30/19 History Nebulized] Medroxyprogesterone Acetate 150 mg IM Q84D 07/10/18 06/30/19 History [Depo-Provera] Omalizumab [Xolair] 300 mg SQ Q28D 07/10/18 06/30/19 History HYDROcodone/APAP 7.5-325MG [[place] 1 tab PO Q6HR PRN #120 tab 07/28/18 06/30/19 Rx 7.5-325] Cholecalciferol [Vitamin D3 (25 1,000 unit PO DAILY 08/10/18 06/30/19 History Mcg = 1000 Iu)] PARoxetine HCL [Paxil] 40 mg PO HS@199911/24/18 06/30/19 History Albuterol Inhaler [Ventolin Hfa 2 puff INHALATION Q6HR PRN 12/18/18 06/30/19 History Inhaler] Methylphenidate HCl [Concerta] 36 mg PO DAILY@0700 04/09/19 06/30/19 History Levothyroxine Sodium [Synthroid] 137 mcg PO SUMOTUWETHSA 06/22/19 06/30/19 History Prednisolone Acetate/Pf 1 drop BOTH EYES TID 06/22/19 06/30/19 History [Prednisolone Acet 1% Eye Drop] busPIRone HCL 10 mg PO BID@0700,1500 06/23/19 06/30/19 History tiZANidine HCL 4 mg PO Q8H PRN 06/23/19 06/30/19 History traZODone HCL 50 - 100 mg PO HS@199906/23/19 06/30/19 History Allergies Allergy/AdvReac Type Severity Reaction Status Date / Time albuterol AdvReac Rapid Verified 06/30/19 17:24 Heart Rate Physical Exam Vitals: Vital Signs Temp Pulse Pulse Pulse Resp BP BP 07/01/19 09:55 130 H 20 147/86 07/01/19 09:40 98.5 F 126 H 18 151/97 07/01/19 07:15 98.0 F 89 18 112/73 07/01/19 04:00 98.1 F 92 18 95/61 06/30/19 22:52 98.0 F 99 17 127/83 06/30/19 19:14 99.0 F 91 18 130/86 06/30/19 17:40 109 H 18 148/96 06/30/19 16:46 105 H 20 152/94 06/30/19 16:29 95 18 138/65 06/30/19 14:56 125 H 18 163/98 06/30/19 14:10 132 H 20 168/106 06/30/19 13:45 108 H 20 06/30/19 13:28 98.8 F 108 H 20 147/98 Pulse Ox 07/01/19 09:55 100 07/01/19 09:40 100 07/01/19 07:15 99 07/01/19 04:00 97 06/30/19 22:52 97 06/30/19 19:14 99 06/30/19 17:40 99 06/30/19 16:46 100 06/30/19 16:29 98 06/30/19 14:56 98 06/30/19 14:10 100 06/30/19 13:45 06/30/19 13:28 99 Intake and Output 06/30/19 07/01/19 07/01/19 22:59 06:59 14:59 Intake Total 320 Balance 320 Intake: Oral 120 Other 200 Other: # Voids 1 3 Weight 72.575 kg 94.5 kg Results CBC & Chem 7: 06/30/19 13:22 06/30/19 13:22 Labs: Abnormal Lab Results - Last 24 Hours (Table) 06/30/19 Range/Units 13:22 APTT 20.6 L (22.0-30.0) sec Thrombosis Risk Factor Assmnt - Choose All That Apply Any of the Below Risk Factors Present?: No Other Risk Factors: No Thrombosis Risk Factor Assessment Level: Very Low Risk
[2019-07-01 20:19] LABS: Appearance,CSF Clear; CSF Tube Number 4; CSF Tube Volume 1; Nucleated Cells, CSF 0 u/L (0-5); Red Blood Cell,CSF 3 u/L (0-10)
[2019-07-01] MEDS: PARoxetine 20 MG TAB PO SCH (20:26)
[2019-07-01] MEDS: ENOXAPARIN 40 MG/0.4 ML SYRINGE SQ SCH (20:26)
[2019-07-01] MEDS: traZODone HCL 100 MG TAB PO SCH (20:34)
[2019-07-02 00:36] VITALS: RESP 18
[2019-07-02] MEDS: MORPHINE SULFATE 4 MG/ML SYRINGE IV PRN (04:45)
[2019-07-02] MEDS: busPIRone HCl 10 MG TAB PO SCH ×2 (06:48→16:02)
[2019-07-02] MEDS: LEVOTHYROXINE 137 MCG TAB PO SCH (06:48)
[2019-07-02 07:29] VITALS: TEMP 98.4
[2019-07-02] MEDS: prednisoLONE ACETATE 1% OPHTH DROPS 5 ML BTL BOTH EYES SCH ×2 (08:40→16:10)
[2019-07-02] MEDS: METHYLPHENIDATE HCL 10 MG TAB PO SCH ×2 (08:40→14:52)
[2019-07-02 12:38] VITALS: BP 144/88; PULSE 108
[2019-07-02] MEDS ORDERED: methylPREDNISolone 4 MG TAB TAPER PO SCH ×2 (13:30→14:00)
--- NOTE | 2019-07-02 14:05 | P.PN ---
Progress Note - Text Progress Note Date: 07/02/19 SUBJECTIVE/INTERVAL EVENTS: No acute overnight events. Patient became very tearful, stating that she's "not living but merely existing." Concerned about her blood pressure fluctuating, and being in pain when she goes home. PHYSICAL EXAMINATION: VITAL SIGNS: T 98.4 HR 99 RR 18 BP 123/79 O2 sat 99% on RA GEN.: NAD, pleasant and cooperative. Patient having episodes of spasms/cramping during eval HEENT: NCAT, sclera without icterus NECK: Supple (but cautious when moving her neck with her cervical dystonia issues) SKIN AND EXTREMITIES: Warm to touch, no edema NEURO: MENTAL STATUS: Patient alert and oriented to self, place, time. Able to name the current president. Speech fluent, able to name and repeat, following all commands readily. CRANIAL NERVES II THROUGH XII: II: Pupils are equal and reactive to light symmetrically. Visual cervantes are intact. No red color desturation III, IV, : No ptosis. Extraocular movements full. No nystagmus. No pain with eye movement. V: Decreased sensation to LT from L V1-3. VII. Mild facial asymmetry. VIII: Hearing intact to finger rub bilaterally. IX, X: Symmetric palate elevation. XI: Shoulder shrug intact. XII: Tongue midline without fasciculation or atrophy. MOTOR: Normal bulk/tone. No pronator drift or tremor. Strength is 5/5 RUE/RLE and 4+/5 LUE. 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 REFLEXES: 2+ throughout. Toes are downgoing. COORDINATION: Finger to nose intact. No dysmetria. GAIT: Antalgic gait, prefers R leg, patient uses a walker at baseline DIAGNOSTIC TESTING: LABORATORY: WBC 7.4 Hgb 14.4 Platelet 216 Na 141 K 3.7 Cl 106 CO2 25 BUN 14 Cr 1.02 glucose 92 AST 21 ALT 11 AlkPhos 70 troponin <0.012 Influenza not detected IMAGING: MRI brain w/o contrast 07/01/2019: Single small white matter high increased signal in L parietal lobe slightly increased in size compared to old exam. 3mm similar focus R posterior frontal lobe white matter unchanged. Otherwise, negative exam CT Head w/o contrast 06/23/2019: No acute intracranial process is seen at this time. MRI brain w/o contrast 03/20/2016: Minimal nonspecific white matter changes felt stable likely of clinical significance and mild to minimal chronic ethmoid sinus disease. No significant new finding is seen to account for patient's symptoms ASSESSMENT: Ms. Delgado is a 38 year-old woman with PMHx of asthma, GERD, seizure, hypothyroidism, bulemia, herniated disc, cervical cancer, migraines, neurodegeneration with iron accumulation, cervical dystonia, anxiety, depression, who was brought in by ambulance for headache and vision changes. Headache and blurry vision have been persistent, and patient endorsing L facial numbness and LUE weakness. Patient returns to ED just after 1 week of neuro evaluation. Lumbar puncture showing opening pressure of 10 and closing pressure 7. Orthostatics negative. RECOMMENDATIONS: 1. Patient with follow up with her Neurologist this Saturday at [facility]. Patient will discuss with her neurologist about starting migraine prophylaxis medications and also will be getting botox injection 2. Will provide medrol dose tricia for migraine relief 3. ED precautions discussed with patient. 4. Neurology will sign off at this time. Please feel free to contact Neurology again if with additional questions or concerns.
--- NOTE | 2019-07-05 22:55 | P.DS ---
Providers Date of admission: 06/30/19 16:47 Expected date of discharge: 07/02/19 Attending physician: Anthony nEglish Consults: 06/30/19 17:01 Consult Physician Stat Consulting Provider: Erna Mendiola Reason/Comments: Headache, blurry vision Do you want consulting provider notified?: Yes Primary care physician: [facility] Course: Chief Complaint: headache dizziness bloody vision History of presenting complaint: This is a 38-year-old patient of Dr. Gonzalez. 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 Patient also received Botox for cervical dystonia. Patient now presents with one-day history of headache, the back of the head, blurry vision, wears eyeglasses and not feeling right. Also states her blood pressures been running high and increased heart rate. Patient was just discharged from the hospital following similar symptoms was seen by Dr. Mendiola from neurology to get a computed tomography scan of the head and was discharged. No fever no chills. Questionable weakness of left upper arm. Hospital course: Patient testing included computed tomography scan of the brain, CT angiogram with contrast of the [place], MRI of the brain. Findings were nonspecific. Also had a lumbar puncture. Opening pressure was good. Today-results were discussed with the patient. Also discussed with Dr. Mendiola the neurologist. Patient be discharged. She should follow with the neurologist [facility]. Consultation: Dr. Mendiola from neurology Physical examination: VITAL SIGNS: 98.4-99-18-122/79-99% room air. Negative for orthostatic GENERAL: BMI 38.1, laying in bed, comfortable EYES: Pupils equal. Conjunctiva normal. HEENT: External appearance of nose and ears normal, oral cavity grossly normal. NECK: JVD not raised; masses not palpable. HEART: First and second heart sounds are normal; no edema. LUNGS: Respiratory rate normal; clear to auscultation. ABDOMEN: Soft, nontender, liver spleen not palpable, no masses palpable. PSYCH: Alert and oriented x3; mood and affect anxiousl. NEUROLOGICAL: Cranial nerves grossly intact; no facial asymmetry, power and sensation grossly intact. INVESTIGATIONS, reviewed in the clinical context: White count 7.4 hemoglobin 40.4 platelets 216 potassium 4.[address] brain-nonspecific CT [place] angiogram with contrast-negative MRI brain-no infarct. More details in the report Assessment: -Possible acute migraine attack -- chronic neurodegenerative disorder the brain with iron accumulation patient being followed at [facility]. -Chronic bulimia -Chronic low back pain and cervical pain -Hypothyroidism -Depression and anxiety not otherwise specified -Obesity BMI 38.1 Disposition: Home Patient Condition at Discharge: Stable Plan - Discharge Summary Discharge Rx Participant: No New Discharge Prescriptions: Continue Omalizumab [Xolair] 300 mg SQ Q28D Medroxyprogesterone Acetate [Depo-Provera] 150 mg IM Q84D Levalbuterol HCl [Xopenex Nebulized] 0.63 mg INHALATION QID PRN PRN Reason: sob HYDROcodone/APAP 7.5-325MG [[place] 7.5-325] 1 tab PO Q6HR PRN #120 tab PRN Reason: Pain Cholecalciferol [Vitamin D3 (25 Mcg = 1000 Iu)] 1,000 unit PO DAILY PARoxetine HCL [Paxil] 40 mg PO HS@1999 Albuterol Inhaler [Ventolin Hfa Inhaler] 2 puff INHALATION Q6HR PRN PRN Reason: Shortness Of Breath Methylphenidate HCl [Concerta] 36 mg PO DAILY@0700 Levothyroxine Sodium [Synthroid] 137 mcg PO SUMOTUWETHSA Prednisolone Acetate/Pf [Prednisolone Acet 1% Eye Drop] 1 drop BOTH EYES TID busPIRone HCL 10 mg PO BID@0700,1500 tiZANidine HCL 4 mg PO Q8H PRN PRN Reason: Muscle Spasm traZODone HCL 50 - 100 mg PO HS@2000 Discharge Medication List Levalbuterol HCl [Xopenex Nebulized] 0.63 mg INHALATION QID PRN 07/10/18 [History] Medroxyprogesterone Acetate [Depo-Provera] 150 mg IM Q84D 07/10/18 [History] Omalizumab [Xolair] 300 mg SQ Q28D 07/10/18 [History] HYDROcodone/APAP 7.5-325MG [[place] 7.5-325] 1 tab PO Q6HR PRN #120 tab 07/28/18 [Rx] Cholecalciferol [Vitamin D3 (25 Mcg = 1000 Iu)] 1,000 unit PO DAILY 08/10/18 [History] PARoxetine HCL [Paxil] 40 mg PO HS@199911/24/18 [History] Albuterol Inhaler [Ventolin Hfa Inhaler] 2 puff INHALATION Q6HR PRN 12/18/18 [History] Methylphenidate HCl [Concerta] 36 mg PO DAILY@0700 04/09/19 [History] Levothyroxine Sodium [Synthroid] 137 mcg PO SUMOTUWETHSA 06/22/19 [History] Prednisolone Acetate/Pf [Prednisolone Acet 1% Eye Drop] 1 drop BOTH EYES TID 06/22/19 [History] busPIRone HCL 10 mg PO BID@0700,1500 06/23/19 [History] tiZANidine HCL 4 mg PO Q8H PRN 06/23/19 [History] traZODone HCL 50 - 100 mg PO HS@199906/23/19 [History] Follow up Appointment(s)/Referral(s): neurologist-[facility], [Other] - 1 Week Slade Gonzalez MD [Primary Care Provider] - 1-2 days Salvatore Ariza MD [STAFF PHYSICIAN] - 1 Week Patient Instructions/Handouts: Chest Pain (DC), Acute Headache (DC) Activity/Diet/Wound Care/Special Instructions: f/u at [facility] neurology Discharge Disposition: HOME SELF-CARE
--- NOTE | 2019-07-07 09:28 | FL ---
EXAMINATION TYPE: FL guided lumbar puncture LP DATE OF EXAM: 07/01/2019 COMPARISON: NONE HISTORY: Intractable headaches TECHNIQUE: Fluoroscopy. 1 min 2 sec fl time Informed consent was obtained and all the patient's questions were answered. The L2-3 level was local ized fluoroscopically. Standard sterile technique was utilized. Spinal needle was introduced into the thecal sac and opening pressure of 10 mmHg was recorded. Approximately 8 cc of CSF was obtained in 4 separate vials. Closing pressure of 7 mmHg was recorded. The patient tolerated the procedure well an d left the department in stable condition. IMPRESSION: As Above.
== END 2019-07-02 16:28 | disposition home or self-care (01) ==
LOC: EC 13:14 → 1SOBS 16:47
PROVIDERS: ADMIT Hospitalist; ATTEND Hospitalist
DX: R51 Headache (principal); H53.149 Visual discomfort, unspecified; R07.9 Chest pain, unspecified; R06.02 Shortness of breath; R42 Dizziness and giddiness; R00.1 Bradycardia, unspecified; J45.40 Moderate persistent asthma, uncomplicated; G23.0 Hallervorden-Spatz disease; G40.909 Epilepsy, unspecified, not intractable, without status epilepticus; K21.9 Gastro-esophageal reflux disease without esophagitis; R03.0 Elevated blood-pressure reading, without diagnosis of hypertension; E03.9 Hypothyroidism, unspecified; D64.9 Anemia, unspecified; F50.2 Bulimia nervosa; E66.9 Obesity, unspecified; Z68.38 Body mass index [BMI] 38.0-38.9, adult; R00.0 Tachycardia, unspecified; G43.909 Migraine, unspecified, not intractable, without status migrainosus; Z87.11 Personal history of peptic ulcer disease; G89.29 Other chronic pain; M54.9 Dorsalgia, unspecified; G24.3 Spasmodic torticollis; M50.20 Other cervical disc displacement, unspecified cervical region; Z85.41 Personal history of malignant neoplasm of cervix uteri; F41.9 Anxiety disorder, unspecified; F32.9 Major depressive disorder, single episode, unspecified; Z96.642 Presence of left artificial hip joint; Z87.442 Personal history of urinary calculi; Z86.14 Personal history of Methicillin resistant Staphylococcus aureus infection; Z83.1 Family history of other infectious and parasitic diseases; Z80.8 Family history of malignant neoplasm of other organs or systems; Z80.0 Family history of malignant neoplasm of digestive organs; Z90.49 Acquired absence of other specified parts of digestive tract; Z98.84 Bariatric surgery status; Z98.51 Tubal ligation status; Z98.890 Other specified postprocedural states; Z79.3 Long term (current) use of hormonal contraceptives; Z79.890 Hormone replacement therapy; Z79.899 Other long term (current) drug therapy; Z88.8 Allergy status to other drugs, medicaments and biological substances
CPT/HCPCS: 96365; 96372; 96376 ×3; 96361; 96375; 99285; 36415; 93005; 84157; 80053; 82945; 84484; 85025; 85610; 85730; 89050; 87502; 62328; 71046; 70496; 70450; 70551; G0378 ×3; S0183; J2270 ×3; J1200; J2405 ×2; J1650; J1885 ×2; J3475; J7509; Q9967; 96374

== ENCOUNTER 2019-07-13 07:19 | Day surgery (SDC) | payer OTHER ==
[~2019-07-13 07:19] MED LIST changes: +BUPIVACAINE (PF) 0.5% 30 ML VIAL ONE; +DEXAMETHASONE SOD PHOSPHATE 10 MG/ML 1 ML VIAL ONE; -IV FLUID CONTINUATION 1,000 ML IV ONE; -LACTATED RINGERS 1,000 ML IV SCH; -LIDOCAINE 1% 20 ML VIAL (10MG/ML) FOR IV START INTRADERMA ONE; +MIDAZOLAM 2 MG/2 ML VIAL ONE
[2019-07-13] MEDS ORDERED: LACTATED RINGERS 1,000 ML IV SCH (07:38)
[2019-07-13 07:46] VITALS: RESP 16; TEMP 98.3
--- NOTE | 2019-07-13 07:55 | P.PCN ---
Date of Procedure: 07/13/19 Description of Procedure: Pre-operative diagnosis: occipital neuralgia Post Operative Diagnosis: occipital neuralgia Procedure: Bilateral occipital nerve block under ultrasound Anesthesia: local with 1% lidocaine with IV sedation secondary to severe anxiety PROCEDURE INDICATION: The patient with neck pain and headache secondary to occipital neuralgea unresponsive to conservative treatments. PROCEDURE DESCRIPTION / TECHNIQUE: The patient was seen and identified in the preoperative area. Risks, benefits, complications, and alternatives were discussed with the patient, the patient agreed to proceed with the procedure and signed the consent. Vital signs remained stable throughout the procedure. Patient was taken to the OR and time out was completed. The patient was placed in sitting position. The cervical area and right occiptial area were prepped with alcohol swab. Critical pause was taken. Vital signs were closely monitored during the procedure. Conscious sedation was used during the procedure to decrease patients anxiety. Ultrasound was used and the occipital artery was visualized exiting the skull about 2-3 cm lateral and 2cm inferior to the occipital protuberance, Then after negative aspiration, a 25g needed was introduced under ultrasound, negative aspiration confirmed and then 3 ml of the block solution containing 2.5 ml of PF Ropivaciane 0.5% and dexamethasone (total of 10mg) was injected after negative aspiration. Needle was withdrawn intact. After the right side is completely left side was done in the same fashion as described above. Patient tolerated procedure well. No acute complications.
[2019-07-13] MEDS ORDERED: LIDOCAINE 1% (10MG/ML) FOR IV START INTRADERMA ONE (07:58)
[2019-07-13] MEDS ORDERED: IV FLUID CONTINUATION 1,000 ML IV ONE (08:16)
[2019-07-13 08:30] VITALS: BP 93/57; PULSE 73
== END 2019-07-13 08:46 | disposition home or self-care (01) ==
LOC: ORPAIN 07:19
PROVIDERS: ATTEND Family Medicine
DX: M54.81 Occipital neuralgia (principal); G43.909 Migraine, unspecified, not intractable, without status migrainosus; R26.81 Unsteadiness on feet; J45.909 Unspecified asthma, uncomplicated
CPT/HCPCS: 64405; 81025; J2250; J1100; 99211

== ENCOUNTER → 2019-10-13 | Outpatient (CLI) | payer OTHER | END | disposition home or self-care (01) | LOC: LABWHC1 10:48 | PROVIDERS: ATTEND Internal Medicine Endocrinology, Diabetes & Metabolism | DX: E03.9 Hypothyroidism, unspecified (principal) | CPT/HCPCS: 36415; 84443 ==

== ENCOUNTER → 2019-10-28 | Outpatient (CLI) | payer OTHER ==
--- NOTE | 2019-10-28 08:23 | P.PN ---
Subjective Progress Note Date: 10/28/19 Neck pain is ok now, she reports hse xcontinues to have neck pain, nothing new. Due to the pandemic her botox was delayed. she recently had it done again and it helps significantly. The occipital nerve block helped a lot according to her, kept her out of the hospital. Since the combination of injections, she has been doing well. She is attempting to move around as much possible. She is inquiring about repeating. She had pneumonia in May, she was on a steroid dose for three weeks. She has chronic lung issues. Objective - Exam GENERAL: Awake, alert, oriented, no distress HENT: atraumatic, normocephalic, trachea midline, nose midline RESP: NO audible wheezing, no coughing CARDIO: Reg rate (per patient palpation), no edema ABDOMEN: Non tender (per patient), no distension CERVICAL SPINE: Range of motion limited, Spurling Negative, head tilted to left side LUMBAR SPINE: Limited range of motion secondary to pain, able to extend and flex. NEURO: Gait is Normal, Sensation in Lower ext normal (per patient) PSYCH: Cooperative, normal affect. Assessment and Plan Assessment: Assessment: 1. Severe muscle spasm of undetermined etiology, cervical dystonia 2. Lumbar spondylosis 3. Chronic opiate use 4. Avascular necrosis of the hip status post hip replacement 5. Bilateral occipital neuralgia Plan: PLAN 1. Explanation: Opioid and psychological risk scores were reviewed. Diagnoses, prognoses, and multiple treatment options including but not limited to physical therapy, interventional therapies, adjuvant medical therapies, narcotic medication therapies, and surgery were discussed with the patient and all questions were answered to the patient's satisfaction. 2. Opioid agreement: On file 3. Counseling: She was advised to stay as active as possible 4. Procedures: will schedule bilateral occipital nerve blocks after 6-8 weeks 5. Consultations: None 6. Investigations: Drug screen reviewed and is congruent 7. Medications: Her [place] and Zanaflex 6mg BID (4mg tab TID sent in) were refilled
== END | disposition home or self-care (01) ==
LOC: PNWHC3 06:58
PROVIDERS: ATTEND Hospitalist
DX: Z53.9 Procedure and treatment not carried out, unspecified reason (principal)

== ENCOUNTER 2019-11-05 16:16 | Emergency (ER) | payer OTHER ==
[2019-11-05] MEDS ORDERED: SODIUM CHLORIDE 0.9% 1,000 ML IV STA (17:03)
[2019-11-05] MEDS ORDERED: KETOROLAC 30 MG/ML 1 ML VIAL IVP STA (17:03)
[2019-11-05] MEDS ORDERED: ACETAMINOPHEN TAB 325 MG TAB PO STA (17:04)
[2019-11-05 17:31] LABS: Basophils % (A) 0 %; Eosinophils # (A) 0.1 k/uL (0-0.7); Eosinophils % (A) 2 %; HCT 38.6 % (34.0-46.0); HGB 13.5 gm/dL (11.4-16.0); Lymphocytes # (A) 1.5 k/uL (1.0-4.8); Lymphocytes % (A) 27 %; MCH 33.2 pg (25.0-35.0); MCHC 34.9 g/dL (31.0-37.0); MCV 95.1 fL (80.0-100.0); Mean Platelet Volume 6.9; Monocytes # (A) 0.3 k/uL (0-1.0); Monocytes % (A) 5 %; Neutrophils # (A) 3.7 k/uL (1.3-7.7); Neutrophils % (A) 65 %; Platelet Count 206 k/uL (150-450); RBC 4.06 m/uL (3.80-5.40); RDW 11.7 % (11.5-15.5); WBC 5.8 k/uL (3.8-10.6)
[2019-11-05 17:41] LABS: Albumin 4.3 g/dL (3.5-5.0); Calcium 9.1 mg/dL (8.4-10.2); Potassium 4.1 mmol/L (3.5-5.1); Total Bilirubin 0.7 mg/dL (0.2-1.3); Total Protein 6.7 g/dL (6.3-8.2)
--- NOTE | 2019-11-05 17:46 | ED ---
Abdominal Pain HPI - General Chief Complaint: Abdominal Pain Stated Complaint: Poss hernia Time Seen by Provider: 11/05/19 16:47 Source: patient Mode of arrival: ambulatory Limitations: no limitations - History of Present Illness Initial Comments: Patient is a 38-year-old female presenting to the emergency Department with complaints of pain in her left groin area. Patient states she has been having this discomfort on and off for the past 5 months. She states the pain increases when she coughs or sneezes. She does have a left hip replacement that was done approximately one year ago. Patient did have a follow-up with her surgeon who did x-rays and states that everything appears normal. She started physical therapy in July but had to cancel because of COVID. They suggested he go see her PCP. PCP was worried for a possible hernia and sent her into the ER. Patient admits to history of cholecystectomy, lap band procedure. She states she has not had a bowel movement since Saturday. She states is normal for her to go every few days. She denies any abdominal pain. She denies having nausea, vomiting, diarrhea. She denies any recent fever or chills. She states today she is just been feeling more rundown than usual though. She has been eating and drinking as normal. She has no further complaints at this time. Upon arrival to the ER, the patient was febrile to 100.1, pulse is 114. - Related Data Home Medications Medication Instructions Recorded Confirmed Levalbuterol HCl [Xopenex 0.63 mg INHALATION QID PRN 07/10/18 10/26/19 Nebulized] Medroxyprogesterone Acetate 150 mg IM Q84D 07/10/18 10/26/19 [Depo-Provera] Omalizumab [Xolair] 300 mg SQ Q28D 07/10/18 10/26/19 Cholecalciferol [Vitamin D3 (25 1,000 unit PO DAILY 08/10/18 10/26/19 Mcg = 1000 Iu)] PARoxetine HCL [Paxil] 40 mg PO HS 11/24/18 10/26/19 Albuterol Inhaler (Mhu) [Ventolin 2 puff INHALATION Q6HR PRN 12/18/18 10/26/19 Hfa Inhaler (Mhu)] Methylphenidate HCl [Concerta] 36 mg PO DAILY 04/09/19 10/26/19 Levothyroxine Sodium [Synthroid] 137 mcg PO SUMOTUWETHSA 06/22/19 10/26/19 Botox Injecctions 300 mg INJ DIRECTED 07/09/19 10/26/19 traZODone HCL 100 mg PO HS 07/09/19 10/26/19 Previous Rx's Medication Instructions Recorded HYDROcodone/APAP 7.5-325MG [Libby 1 tab PO Q6HR PRN #120 tab 10/28/19 7.5-325] tiZANidine HCL [Zanaflex] 4 mg PO TID #90 cap 10/28/19 Allergies Allergy/AdvReac Type Severity Reaction Status Date / Time No Known Allergies Allergy Verified 11/05/19 16:39 Review of Systems ROS Statement: Those systems with pertinent positive or pertinent negative responses have been documented in the HPI. ROS Other: All systems not noted in ROS Statement are negative. Past Medical History Past Medical History: Asthma, Cancer, GERD/Reflux, Seizure Disorder, Thyroid Disorder Additional Past Medical History / Comment(s): TACHYCARDIA, peptic ulcers, anemia."HAS BEEN ON VENTILATOR IN PAST D/T SEVERE ASTHMA ATTACK," BULEMIA-STATES GETTING BETTER, CONSTIPATION. HERNIATED DISC, cervical cancer. 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 History of Any Multi-Drug Resistant Organisms: MRSA Date of last positivie culture/infection: 08/25/14 MDRO Source:: rt Groin Past Surgical History: Bariatric Surgery, Cholecystectomy, Joint Replacement, Orthopedic Surgery, Tonsillectomy Additional Past Surgical History / Comment(s): Tilt table test, lap band 2007; NASAL FX REPAIR , ORIF LT ELBOW X2, PAIN PROCEDURES for migraines. Surgery on her cervix for cancer, rt foot surgery(Fx), cysto/lithotripsy , left hip replacement 12/2018, lumbar puncture, cervical biopsy in August @[facility] Past Anesthesia/Blood Transfusion Reactions: Postoperative Nausea & Vomiting (PONV) Past Psychological History: Anxiety, Depression Smoking Status: Never smoker Past Alcohol Use History: None Reported Past Drug Use History: None Reported - Past Family History Mother Family Medical History: Pneumonia Additional Family Medical History / Comment(s): Mother of pneumonia. Patient's son of brain cancer, last mother and father both liver cancer Son(s) Family Medical History: Cancer Additional Family Medical History / Comment(s): Son of brain cancer. Father Family Medical History: Cancer Additional Family Medical History / Comment(s): liver General Exam - General Exam Comments Initial Comments: GENERAL: Well-appearing, well-nourished and in no acute distress. HEAD: Atraumatic, normocephalic. EYES: Pupils equal round and reactive to light, extraocular movements intact, sclera anicteric, conjunctiva are normal. ENT: TMs normal, nares patent, oropharynx clear without exudates. Moist mucous membranes. NECK: Normal range of motion, supple without lymphadenopathy or JVD. LUNGS: Breath sounds clear to auscultation bilaterally and equal. No wheezes rales or rhonchi. HEART: Regular rate and rhythm without murmurs, rubs or gallops. ABDOMEN: Tender to palpation of the left lower quadrant, left groin area. There are no masses or lymph nodes felt. Soft, normoactive bowel sounds. No guarding, no rebound. No masses appreciated. : Deferred EXTREMITIES: He should has normal range of motion of the left hip. No pitting or edema. No clubbing or cyanosis. NEUROLOGICAL: Normal speech, normal gait. PSYCH: Normal mood, normal affect. SKIN: Warm, Dry, normal turgor, no rashes or lesions noted. Limitations: no limitations Course Vital Signs 11/05/19 11/05/19 11/05/19 16:36 18:01 18:37 Temperature 100.1 F H 99.3 F Pulse Rate 114 H 93 Respiratory 18 16 Rate Blood Pressure 131/121 127/88 O2 Sat by Pulse 98 98 Oximetry 11/05/19 20:00 Temperature 98.9 F Pulse Rate 91 Respiratory 17 Rate Blood Pressure 127/87 O2 Sat by Pulse 100 Oximetry Medical Decision Making - Medical Decision Making Patient 38-year-old female presenting with pain in her left groin area, left lower quadrant. She does have history of hip replacement 1 year ago, recent x- rays showed no acute abnormalities. Exam today reveals tenderness in the left groin, left lower quadrant. Lab work shows no acute abnormality, lactic acid is normal. Urine shows no signs of infection. Patient is not . Computed tomography scan shows no abnormalities. I discussed with patient that this could be related to muscle strain or muscle tightness. Patient did have a slight fever today but I feel like this is more viral in nature. Patient had full normal pain-free range of motion of her left hip and I do not think her fever is related to her left groin pain. Patient was given fluids, Toradol, Tylenol. She does report mild improvement in her symptoms. I discussed following up with her PCP. She is in agreement with this plan of care. She is stable for discharge. Return parameters were discussed with the patient and she verbalized understanding. Case discussed with Dr. Laguna. - Lab Data Result diagrams: 11/05/19 17:15 11/05/19 17:15 Lab Results 11/05/19 11/05/19 11/05/19 Range/Units 17:15 17:15 17:15 WBC 5.8 (3.8-10.6) k/uL RBC 4.06 (3.80-5.40) m/uL Hgb 13.5 (11.4-16.0) gm/dL Hct 38.6 (34.0-46.0) % MCV 95.1 (80.0-100.0) fL MCH 33.2 (25.0-35.0) pg MCHC 34.9 (31.0-37.0) g/dL RDW 11.7 (11.5-15.5) % Plt Count 206 (150-450) k/uL Neutrophils % 65 % Lymphocytes % 27 % Monocytes % 5 % Eosinophils % 2 % Basophils % 0 % Neutrophils # 3.7 (1.3-7.7) k/uL Lymphocytes # 1.5 (1.0-4.8) k/uL Monocytes # 0.3 (0-1.0) k/uL Eosinophils # 0.1 (0-0.7) k/uL Basophils # 0.0 (0-0.2) k/uL Sodium 138 (137-145) mmol/L Potassium 4.1 (3.5-5.1) mmol/L Chloride 107 (98-107) mmol/L Carbon Dioxide 22 (22-30) mmol/L Anion Gap 9 mmol/L BUN 13 (7-17) mg/dL Creatinine 1.03 (0.52-1.04) mg/dL Est GFR (CKD-EPI)AfAm 80 (>60 ml/min/1.73 sqM) Est GFR (CKD-EPI)NonAf 69 (>60 ml/min/1.73 sqM) Glucose 79 (74-99) mg/dL Plasma Lactic Acid Yordan 1.1 (0.7-2.0) mmol/L Calcium 9.1 (8.4-10.2) mg/dL Total Bilirubin 0.7 (0.2-1.3) mg/dL AST 28 (14-36) U/L ALT 14 (4-34) U/L Alkaline Phosphatase 54 (38-126) U/L Total Protein 6.7 (6.3-8.2) g/dL Albumin 4.3 (3.5-5.0) g/dL Amylase 68 (30-110) U/L Lipase 73 (23-300) U/L Urine Color Urine Appearance (Clear) Urine pH (5.0-8.0) Ur Specific [place] (1.001-1.035) Urine Protein (Negative) Urine Glucose (UA) (Negative) Urine Ketones (Negative) Urine Blood (Negative) Urine Nitrite (Negative) Urine Bilirubin (Negative) Urine Urobilinogen (<2.0) mg/dL Ur Leukocyte Esterase (Negative) Urine HCG, Qual (Not Detectd) 11/05/19 11/05/19 Range/Units 17:40 17:40 WBC (3.8-10.6) k/uL RBC (3.80-5.40) m/uL Hgb (11.4-16.0) gm/dL Hct (34.0-46.0) % MCV (80.0-100.0) fL MCH (25.0-35.0) pg MCHC (31.0-37.0) g/dL RDW (11.5-15.5) % Plt Count (150-450) k/uL Neutrophils % % Lymphocytes % % Monocytes % % Eosinophils % % Basophils % % Neutrophils # (1.3-7.7) k/uL Lymphocytes # (1.0-4.8) k/uL Monocytes # (0-1.0) k/uL Eosinophils # (0-0.7) k/uL Basophils # (0-0.2) k/uL Sodium (137-145) mmol/L Potassium (3.5-5.1) mmol/L Chloride (98-107) mmol/L Carbon Dioxide (22-30) mmol/L Anion Gap mmol/L BUN (7-17) mg/dL Creatinine (0.52-1.04) mg/dL Est GFR (CKD-EPI)AfAm (>60 ml/min/1.73 sqM) Est GFR (CKD-EPI)NonAf (>60 ml/min/1.73 sqM) Glucose (74-99) mg/dL Plasma Lactic Acid Yordan (0.7-2.0) mmol/L Calcium (8.4-10.2) mg/dL Total Bilirubin (0.2-1.3) mg/dL AST (14-36) U/L ALT (4-34) U/L Alkaline Phosphatase (38-126) U/L Total Protein (6.3-8.2) g/dL Albumin (3.5-5.0) g/dL Amylase (30-110) U/L Lipase (23-300) U/L Urine Color Yellow Urine Appearance Clear (Clear) Urine pH 6.0 (5.0-8.0) Ur Specific [place] 1.021 (1.001-1.035) Urine Protein Negative (Negative) Urine Glucose (UA) Negative (Negative) Urine Ketones Negative (Negative) Urine Blood Negative (Negative) Urine Nitrite Negative (Negative) Urine Bilirubin Negative (Negative) Urine Urobilinogen <2.0 (<2.0) mg/dL Ur Leukocyte Esterase Negative (Negative) Urine HCG, Qual Not Detected (Not Detectd) Disposition Clinical Impression: Left inguinal pain, Viral illness Disposition: HOME SELF-CARE Condition: Stable Instructions (If sedation given, give patient instructions): Groin Pain (ED) Additional Instructions: Please return to the Emergency Department if symptoms worsen or any other concerns. Follow-up with PCP as discussed. Is patient prescribed a controlled substance at d/c from ED?: No Referrals: Slade Gonzalez MD [Primary Care Provider] - 1-2 days
[2019-11-05 18:13] LABS: Appearance,Urine Clear (Clear); Bilirubin,Urine Negative (Negative); Blood,Urine Negative (Negative); Color,Urine Yellow; Glucose,Urine (UA) Negative (Negative); Ketones,Urine Negative (Negative); Leukocyte Esterase,Urine Negative (Negative); Nitrite,Urine Negative (Negative); Protein,Urine Negative (Negative); Specific Gravity,Urine 1.021 (1.001-1.035); Urobilinogen,Urine <2.0 mg/dL (<2.0)
--- NOTE | 2019-11-05 19:04 | CT ---
EXAMINATION TYPE: CT abdomen pelvis w con DATE OF EXAM: 11/05/2019 COMPARISON: 04/30/2019 HISTORY: Left groin pain. CT DLP: 953.2 mGycm Automated exposure control for dose reduction was used. TECHNIQUE: Helical acquisition of images was performed from the lung bases through the pelvis. CONTRAST: Performed without Oral Contrast and with IV Contrast, patient injected with 100 mL of Isovu e 300. FINDINGS: LUNG BASES: No significant abnormality is appreciated. LIVER/GB: No significant abnormality is appreciated. PANCREAS: No significant abnormality is seen. SPLEEN: No significant abnormality is seen. ADRENALS: No significant abnormality is seen. KIDNEYS: No significant abnormality is seen. FREE AIR: No free air is visualized. RETROPERITONEAL ADENOPATHY: None visualized REPRODUCTIVE ORGANS: No significant abnormality is seen URINARY BLADDER: No significant abnormality is seen. PELVIC ADENOPATHY: None visualized. OSSEOUS STRUCTURES: No significant abnormality is seen. Left hip metallic beam hardening artifact no gamaliel BOWEL: No significant abnormality is seen. Gastric lap band is intact. VASCULATURE: No acute findings. OTHER: The anterior abdominal wall is intact. The left groin is unremarkable. IMPRESSION: NO ACUTE PROCESS. NO CT CORRELATE FOR THE PATIENT'S SYMPTOMS.
[2019-11-05 20:08] VITALS: BP 127/87; PULSE 91; RESP 17; TEMP 98.9
== END 2019-11-05 20:14 | disposition home or self-care (01) ==
LOC: EC 16:16
DX: B34.9 Viral infection, unspecified (principal); R10.32 Left lower quadrant pain; R50.9 Fever, unspecified; J45.909 Unspecified asthma, uncomplicated; E07.9 Disorder of thyroid, unspecified; F41.9 Anxiety disorder, unspecified; F32.9 Major depressive disorder, single episode, unspecified; Z85.41 Personal history of malignant neoplasm of cervix uteri; Z86.14 Personal history of Methicillin resistant Staphylococcus aureus infection; Z98.84 Bariatric surgery status; Z90.49 Acquired absence of other specified parts of digestive tract; Z96.642 Presence of left artificial hip joint; Z79.3 Long term (current) use of hormonal contraceptives; Z79.890 Hormone replacement therapy; Z79.899 Other long term (current) drug therapy
CPT/HCPCS: 36415; 80053; 82150; 83605; 83690; 85025; 81003; 81025; 74177; 99284; 96374; 96361 ×3; J1885; Q9967

== ENCOUNTER → 2019-11-25 | Outpatient (CLI) | payer OTHER ==
[2019-11-25 08:31] VITALS: BP 150/92; PULSE 105; RESP 20; TEMP 98.5
--- NOTE | 2019-11-25 09:23 | P.PAINPG ---
Subjective Progress Note Date: 11/25/19 This is a follow-up visit for this 39-year-old female. She has been diagnosed with occipital neuralgia, she underwent bilateral occipital nerve blocks on 07/13/2019 with good relief. She returns today for follow-up. She reports that her pain has returned, she has been scheduled for bilateral occipital nerve blocks in 2 weeks. Today, her pain is primarily located in the bilateral neck, radiating to lateral head, left greater than right side. This is associated with left hand spasms. She also continues to have hip pain following hip replacement. She is continuing to get Botox injections with her neurologist. Pain is rated as 7/10 today, described as constant, throbbing, aching, sharp. Pain is worse with upright position, sitting, worse of the day progresses and better with laying down, medications. She continues to use Zanaflex and [place]. These medications are helping control her pain, she has mild side effects in the form of dry mouth from Zanaflex. Review of systems is negative for new onset weakness, numbness/tingling, abdominal pain, malaise, fever, night sweats, chills, homicidal or suicidal ideation, or bowel or bladder incontinence. She did have an acute asthma attack last night and her chest "feel tight" and she is tired. She will be calling her aco coordinator this morning. Objective - Exam Physical exam: Vitals: Reviewed in EMR GENERAL: Well appearing, in no acute distress, walker by her side PSYCH: Mood and affect is appropriate. Awake, alert, and oriented SKIN: Skin color, texture, turgor normal, no rashes or lesions HEENT: Normocephalic, atraumatic. EOM intact CV: No pedal edema RESP: Respirations are unlabored, no audible wheezing GI: Abdomen non-distended MUSCULOSKELETAL: Bilateral upper extremity strength is normal and symmetric. No atrophy or tone abnormalities are noted. Neck: Tenderness to palpation over the cervical paraspinous muscles bilaterally, worse on the left side. SHoffman's sign negative. torticolis noted. Limited range of motion in left lateral flexion of the neck Extremities: Peripheral joint ROM is full and pain free without obvious instability or laxity in all four extremities. No edema or skin discolorations noted. NEUR: Bilateral upper extremity coordination and muscle stretch reflexes are physiologic and symmetric. No loss of sensation is noted. Assessment and Plan Assessment: Assessment: 1. Severe muscle spasm of undetermined etiology, cervical dystonia 2. Lumbar spondylosis 3. Chronic opiate use 4. Avascular necrosis of the hip status post hip replacement 5. Bilateral occipital neuralgia Plan: PLAN 1. Opioid agreement: On file 2. Procedures: bilateral occipital nerve blocks scheduled in 2 weeks 3. Consultations: None 4. Investigations: UDS sent today 7. Medications: [place] 7.5 MG 3 times a day when necessary and Zanaflex 4mg TID with one refill each PQRS Measure Charge Sheet Measure #130: Documentation of Current Meds in Medical Chart: Patient's medications documented in chart Measure #226: Tobacco Use: Screen & Cessation Intervention: Pt not a tobacco user Measure #111: Pneumonia Vaccination: Pneumococcal vaccine administered or previously received Measure #47: Advance Care Plan: Advance care planning discussed & documented, pt chose/unable to give Measure #412: Opioid Treatment Agreement: Documented signed opioid trtmnt agreemnt min once during opioid trtmnt Measure #408: Opioid Therapy Follow-up Evaluation: Patient had f/u eval minimum every 3 months during opioid therapy Measure #317: Preventitive Care & Scrn High Bld Press & F/U: Pre-hypertensive or hypertensive BP documented, pt will f/u with PCP Measure #128: Body Mass Index (BMI) Screening & Follow-up: BMI documented ABOVE normal parameters - f/u documented Measure #131: Pain Assessment & Follow-up: Pain positive & plan documented, Follow-up scheduled Measure #431: Unhealthy Alcohol Use Preventative Care & Scrn: Patient not identified as an unhealthy alcohol user PQRS Narrative: Smoking Status Never smoker Narcotic Agreement Date Signed 01/13/18 Pain Intensity [Neck] 6 Scale Used Numeric (1 - 10) Hx Alcohol Use (MH) No Home Medications: Ambulatory Orders Levalbuterol HCl [Xopenex Nebulized] 0.63 mg INHALATION QID PRN 07/10/18 Medroxyprogesterone Acetate [Depo-Provera] 150 mg IM Q84D 07/10/18 Omalizumab [Xolair] 300 mg SQ Q28D 07/10/18 Cholecalciferol [Vitamin D3 (25 Mcg = 1000 Iu)] 1,000 unit PO DAILY 08/10/18 PARoxetine HCL [Paxil] 40 mg PO HS 11/24/18 Albuterol Inhaler (Mhu) [Ventolin Hfa Inhaler (Mhu)] 2 puff INHALATION Q6HR PRN 12/18/18 Methylphenidate HCl [Concerta] 36 mg PO DAILY 04/09/19 Levothyroxine Sodium [Synthroid] 137 mcg PO SUMOTUWETHSA 06/22/19 Botox Injecctions 300 mg INJ DIRECTED 07/09/19 traZODone HCL 100 mg PO HS 07/09/19 HYDROcodone/APAP 7.5-325MG [[place] 7.5-325] 1 tab PO Q6H PRN #120 tab 11/25/19 HYDROcodone/APAP 7.5-325MG [[place] 7.5-325] 1 tab PO Q6HR PRN #120 tab 11/25/19 tiZANidine [Zanaflex] 4 mg PO Q8HR PRN 30 Days #90 tab 11/25/19 Controlled Substance Measures - Controlled Substance Measures Is patient prescribed a controlled substance at discharge?: Yes When asked, does pt state using other controlled substances?: No If prescribed controlled substance>3 days was MAPS reviewed?: Yes If Rx opioid, was Start Talking consent form obtained?: Yes If opioid is for acute pain is fill amount 7 days or less?: No Was information provided regarding opioid addiction?: Yes
== END | disposition home or self-care (01) ==
LOC: PNWHC3 08:06
PROVIDERS: ATTEND Anesthesiology
DX: M54.81 Occipital neuralgia (principal); M47.816 Spondylosis without myelopathy or radiculopathy, lumbar region; M62.838 Other muscle spasm; M87.859 Other osteonecrosis, unspecified femur; F11.90 Opioid use, unspecified, uncomplicated; Z79.899 Other long term (current) drug therapy; Z79.890 Hormone replacement therapy
CPT/HCPCS: 80307; G0482; G0463; 99211

== ENCOUNTER → 2019-12-22 | Day surgery (SDC) | payer OTHER ==
[2019-12-18 13:21] VITALS: BMI 29.2
[~2019-12-22] MED LIST changes: -BUPIVACAINE (PF) 0.5% 30 ML VIAL ONE; -DEXAMETHASONE SOD PHOSPHATE 10 MG/ML 1 ML VIAL ONE; +LACTATED RINGERS 1,000 ML IV SCH; -MIDAZOLAM 2 MG/2 ML VIAL ONE; +ROPIVACAINE 5MG/ML 20ML VIAL ONE; +TRIAMCINOLONE ACETONIDE 40 MG/ML 1 ML VIAL ONE
[2019-12-22 07:32] VITALS: RESP 16; TEMP 97.4
--- NOTE | 2019-12-22 07:40 | P.PCN ---
Date of Procedure: 12/22/19 Procedure(s) Performed: Pre-operative diagnosis: bilateral occipital neuralgia Post Operative Diagnosis same Procedure: bilateral occipital nerve block ANESTHESIA: none EBL: Minimal PROCEDURE INDICATION: The patient with neck pain and headache secondary to occipital neuralgia unresponsive to conservative treatments. PROCEDURE DESCRIPTION / TECHNIQUE: The patient was seen and identified in the preoperative area. Risks, benefits, complications, and alternatives were discussed with the patient, the patient agreed to proceed with the procedure and signed the consent. Vital signs remained stable throughout the procedure. Patient was taken to the OR and time out was completed. The patient was placed in the seated position on the procedure table. The cervical area and bilateral occiptial area were prepped with ChloraPrep. Vital signs were closely monitored during the procedure. The bilateral occiptal ridge was palpated and was then accessed with a 25 G needle. Then after negative aspiration, 3 ml of the block solution containing 5 ml of ropivacaine 0.5% and Kenalog 80 mg was injected to the region of each occipital nerve. Needle was withdrawn intact. Patient tolerated procedure well. No acute complications.
[2019-12-22 08:10] VITALS: BP 126/82; PULSE 76
== END ==
LOC: ORPAIN 06:45
PROVIDERS: ATTEND Anesthesiology
DX: M54.81 Occipital neuralgia (principal)
CPT/HCPCS: 64405; 81025

== ENCOUNTER 2020-01-04 13:36 | Emergency (ER) | payer OTHER ==
[2020-01-04] MEDS ORDERED: SODIUM CHLORIDE 0.9% 2,000 ML IV STA (14:36)
[2020-01-04] MEDS ORDERED: KETOROLAC 30 MG/ML 1 ML VIAL IVP STA (15:00)
--- NOTE | 2020-01-04 15:07 | ED ---
General Adult HPI - General Chief complaint: Abdominal Pain Stated complaint: R Side Pain, Nausea Time Seen by Provider: 01/04/20 14:09 Source: patient, RN notes reviewed Mode of arrival: ambulatory Limitations: no limitations - History of Present Illness Initial comments: 39-year-old female with a past medical history of asthma, GERD, seizure disorder, tachycardia, migraines, kidney stones presents to the emergency department for a chief complaint of abdominal pain. Patient has right upper abdominal pain and flank pain. Patient states this feels like a kidney stone. States this started a couple days ago but has worsened. Patient states she has nausea but no vomiting. Patient reports that her appetite is decreased. She denies fevers. She does admit to some diarrhea over the past couple days as well. Patient has a remote history of LAP-BAND however this is not inflated. She does have a history of cholecystectomy. Patient has no other complaints at this time including shortness of breath, chest pain,vomiting, headache, or visual changes. - Related Data Home Medications Medication Instructions Recorded Confirmed Levalbuterol HCl [Xopenex 0.63 mg INHALATION QID PRN 07/10/18 12/18/19 Nebulized] Medroxyprogesterone Acetate 150 mg IM Q84D 07/10/18 12/18/19 [Depo-Provera] Omalizumab [Xolair] 300 mg SQ Q28D 07/10/18 12/18/19 Cholecalciferol [Vitamin D3 (25 2,000 unit PO DAILY 08/10/18 12/18/19 Mcg = 1000 Iu)] Albuterol Inhaler (Mhu) [Ventolin 2 puff INHALATION Q6HR PRN 12/18/18 12/18/19 Hfa Inhaler (Mhu)] Methylphenidate HCl [Concerta] 36 mg PO DAILY 04/09/19 12/18/19 Levothyroxine Sodium [Synthroid] 137 mcg PO SUMOTUWETHSA 06/22/19 12/18/19 Botox Injecctions 300 mg INJ DIRECTED 07/09/19 12/18/19 traZODone HCL 100 mg PO HS 07/09/19 12/18/19 PARoxetine [Paxil] 20 mg PO HS 12/18/19 12/18/19 Previous Rx's Medication Instructions Recorded HYDROcodone/APAP 7.5-325MG [[place] 1 tab PO Q6HR PRN #120 tab 11/25/19 7.5-325] tiZANidine [Zanaflex] 4 mg PO Q8HR PRN 30 Days #90 tab 11/25/19 Allergies Allergy/AdvReac Type Severity Reaction Status Date / Time No Known Allergies Allergy Verified 01/04/20 13:43 Review of Systems ROS Statement: Those systems with pertinent positive or pertinent negative responses have been documented in the HPI. ROS Other: All systems not noted in ROS Statement are negative. Past Medical History Past Medical History: Asthma, Cancer, GERD/Reflux, Seizure Disorder, Thyroid Disorder Additional Past Medical History / Comment(s): TACHYCARDIA, peptic ulcers, anemia."HAS BEEN ON VENTILATOR IN PAST D/T SEVERE ASTHMA ATTACK," BULEMIA-STATES GETTING BETTER, CONSTIPATION. HERNIATED DISC, cervical cancer. 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 recent antibiotoc for infection in arm-now resolved per pt History of Any Multi-Drug Resistant Organisms: MRSA Date of last positivie culture/infection: 08/25/14 MDRO Source:: rt Groin Past Surgical History: Bariatric Surgery, Cholecystectomy, Joint Replacement, Orthopedic Surgery, Tonsillectomy Additional Past Surgical History / Comment(s): Tilt table test, lap band 2007; NASAL FX REPAIR , ORIF LT ELBOW X2, PAIN PROCEDURES for migraines. Surgery on her cervix for cancer, rt foot surgery(Fx), cysto/lithotripsy , left hip replacement 12/2018, lumbar puncture, cervical biopsy in August @[facility] Past Anesthesia/Blood Transfusion Reactions: Postoperative Nausea & Vomiting ( PONV) Past Psychological History: Anxiety, Depression Smoking Status: Never smoker Past Alcohol Use History: None Reported Past Drug Use History: None Reported - Past Family History Mother Family Medical History: Pneumonia Additional Family Medical History / Comment(s): Mother of pneumonia. Patient's son of brain cancer, last mother and father both liver cancer Son(s) Family Medical History: Cancer Additional Family Medical History / Comment(s): Son of brain cancer. Father Family Medical History: Cancer Additional Family Medical History / Comment(s): liver General Exam Limitations: no limitations General appearance: alert, in no apparent distress Head exam: Present: atraumatic, normocephalic, normal inspection Eye exam: Present: normal appearance, PERRL, EOMI. Absent: scleral icterus, conjunctival injection, periorbital swelling ENT exam: Present: normal exam, mucous membranes moist Neck exam: Present: normal inspection, full ROM. Absent: tenderness, meningismus, lymphadenopathy Respiratory exam: Present: normal lung sounds bilaterally. Absent: respiratory distress, wheezes, rales, rhonchi, stridor Cardiovascular Exam: Present: regular rate, normal rhythm, normal heart sounds. Absent: systolic murmur, diastolic murmur, rubs, gallop, clicks GI/Abdominal exam: Present: soft, tenderness (minimal generalized right upper and lower abdominal tenderness), normal bowel sounds. Absent: distended, guarding, rebound, rigid Back exam: Present: CVA tenderness (R) (mild discomfort). Absent: CVA tenderness (L) Neurological exam: Present: alert Course Vital Signs 01/04/20 01/04/20 01/04/20 13:41 14:52 15:00 Temperature 99.8 F H Pulse Rate 117 H Respiratory 20 Rate Blood Pressure 118/72 91/63 91/63 O2 Sat by Pulse 98 98 99 Oximetry 01/04/20 01/04/20 01/04/20 15:30 16:00 16:30 Temperature Pulse Rate 89 62 Respiratory 18 18 Rate Blood Pressure 104/68 102/73 96/62 O2 Sat by Pulse 99 99 99 Oximetry 01/04/20 01/04/20 01/04/20 17:00 18:00 18:35 Temperature 98.2 F Pulse Rate 68 66 Respiratory 18 18 Rate Blood Pressure 100/68 104/74 O2 Sat by Pulse 99 100 Oximetry EKG Findings - EKG Comments: EKG Findings:: sinus bradycardia, ventricular rate 53, [place] interval 134, QTC 397 Medical Decision Making - Medical Decision Making 39-year-old female since to the emergency department for a chief complaint of abdominal pain. HPI and physical exam as documented. Vitals are stable. CT of the abdomen and pelvis shows no significant new or acute findings seen to account for patient's clinical symptoms. She is reevaluated and had significant improvement. Patient states she feels better after fluids did think she was dehydrated. Patient states she is chronically nauseous this may have contributed. Patient will be discharged home to follow up with primary care. She'll return here for any worsening symptoms. - Lab Data Result diagrams: 01/04/20 14:46 01/04/20 14:46 Lab Results 01/04/20 01/04/20 01/04/20 Range/Units 14:46 14:46 14:50 WBC 7.1 (3.8-10.6) k/uL RBC 3.84 (3.80-5.40) m/uL Hgb 12.6 (11.4-16.0) gm/dL Hct 36.1 (34.0-46.0) % MCV 93.9 (80.0-100.0) fL MCH 32.7 (25.0-35.0) pg MCHC 34.9 (31.0-37.0) g/dL RDW 12.6 (11.5-15.5) % Plt Count 207 (150-450) k/uL Neutrophils % 72 % Lymphocytes % 23 % Monocytes % 4 % Eosinophils % 1 % Basophils % 0 % Neutrophils # 5.1 (1.3-7.7) k/uL Lymphocytes # 1.6 (1.0-4.8) k/uL Monocytes # 0.3 (0-1.0) k/uL Eosinophils # 0.1 (0-0.7) k/uL Basophils # 0.0 (0-0.2) k/uL Sodium 135 L (137-145) mmol/L Potassium 4.0 (3.5-5.1) mmol/L Chloride 107 (98-107) mmol/L Carbon Dioxide 24 (22-30) mmol/L Anion Gap 4 mmol/L BUN 15 (7-17) mg/dL Creatinine 1.18 H (0.52-1.04) mg/dL Est GFR (CKD-EPI)AfAm 67 (>60 ml/min/1.73 sqM) Est GFR (CKD-EPI)NonAf 58 (>60 ml/min/1.73 sqM) Glucose 140 H (74-99) mg/dL Plasma Lactic Acid Yordan 0.9 (0.7-2.0) mmol/L Calcium 8.9 (8.4-10.2) mg/dL Total Bilirubin 0.5 (0.2-1.3) mg/dL AST 20 (14-36) U/L ALT 12 (4-34) U/L Alkaline Phosphatase 44 (38-126) U/L Total Protein 5.8 L (6.3-8.2) g/dL Albumin 3.8 (3.5-5.0) g/dL Amylase 53 (30-110) U/L Lipase 116 (23-300) U/L Urine Color Urine Appearance (Clear) Urine pH (5.0-8.0) Ur Specific Lafferty (1.001-1.035) Urine Protein (Negative) Urine Glucose (UA) (Negative) Urine Ketones (Negative) Urine Blood (Negative) Urine Nitrite (Negative) Urine Bilirubin (Negative) Urine Urobilinogen (<2.0) mg/dL Ur Leukocyte Esterase (Negative) Urine RBC (0-5) /hpf Urine WBC (0-5) /hpf Ur Squamous Epith Cells (0-4) /hpf Urine Mucus (None) /hpf Urine HCG, Qual (Not Detectd) 01/04/20 01/04/20 Range/Units 15:58 15:58 WBC (3.8-10.6) k/uL RBC (3.80-5.40) m/uL Hgb (11.4-16.0) gm/dL Hct (34.0-46.0) % MCV (80.0-100.0) fL MCH (25.0-35.0) pg MCHC (31.0-37.0) g/dL RDW (11.5-15.5) % Plt Count (150-450) k/uL Neutrophils % % Lymphocytes % % Monocytes % % Eosinophils % % Basophils % % Neutrophils # (1.3-7.7) k/uL Lymphocytes # (1.0-4.8) k/uL Monocytes # (0-1.0) k/uL Eosinophils # (0-0.7) k/uL Basophils # (0-0.2) k/uL Sodium (137-145) mmol/L Potassium (3.5-5.1) mmol/L Chloride (98-107) mmol/L Carbon Dioxide (22-30) mmol/L Anion Gap mmol/L BUN (7-17) mg/dL Creatinine (0.52-1.04) mg/dL Est GFR (CKD-EPI)AfAm (>60 ml/min/1.73 sqM) Est GFR (CKD-EPI)NonAf (>60 ml/min/1.73 sqM) Glucose (74-99) mg/dL Plasma Lactic Acid Yordan (0.7-2.0) mmol/L Calcium (8.4-10.2) mg/dL Total Bilirubin (0.2-1.3) mg/dL AST (14-36) U/L ALT (4-34) U/L Alkaline Phosphatase (38-126) U/L Total Protein (6.3-8.2) g/dL Albumin (3.5-5.0) g/dL Amylase (30-110) U/L Lipase (23-300) U/L Urine Color Yellow Urine Appearance Cloudy H (Clear) Urine pH 6.0 (5.0-8.0) Ur Specific Lafferty 1.037 H (1.001-1.035) Urine Protein 1+ H (Negative) Urine Glucose (UA) Negative (Negative) Urine Ketones Negative (Negative) Urine Blood Trace H (Negative) Urine Nitrite Negative (Negative) Urine Bilirubin Negative (Negative) Urine Urobilinogen 2.0 (<2.0) mg/dL Ur Leukocyte Esterase Negative (Negative) Urine RBC 1 (0-5) /hpf Urine WBC 1 (0-5) /hpf Ur Squamous Epith Cells 8 H (0-4) /hpf Urine Mucus Many H (None) /hpf Urine HCG, Qual Not Detected (Not Detectd) Disposition Clinical Impression: Nausea Disposition: HOME SELF-CARE Condition: Good Instructions (If sedation given, give patient instructions): Abdominal Pain (ED) Additional Instructions: drink plenty of fluids.Please follow up with primary care in 1-2 days. Please return to the emergency room for any worsening symptoms. Is patient prescribed a controlled substance at d/c from ED?: No Referrals: Slade Gonzalez MD [Primary Care Provider] - 1-2 days Time of Disposition: 18:25
[2020-01-04 15:11] LABS: Basophils % (A) 0 %; Eosinophils # (A) 0.1 k/uL (0-0.7); Eosinophils % (A) 1 %; HCT 36.1 % (34.0-46.0); HGB 12.6 gm/dL (11.4-16.0); Lymphocytes # (A) 1.6 k/uL (1.0-4.8); Lymphocytes % (A) 23 %; MCH 32.7 pg (25.0-35.0); MCHC 34.9 g/dL (31.0-37.0); MCV 93.9 fL (80.0-100.0); Mean Platelet Volume 7.1; Monocytes # (A) 0.3 k/uL (0-1.0); Monocytes % (A) 4 %; Neutrophils # (A) 5.1 k/uL (1.3-7.7); Neutrophils % (A) 72 %; Platelet Count 207 k/uL (150-450); RBC 3.84 m/uL (3.80-5.40); RDW 12.6 % (11.5-15.5); WBC 7.1 k/uL (3.8-10.6)
[2020-01-04 15:36] LABS: Albumin 3.8 g/dL (3.5-5.0); Calcium 8.9 mg/dL (8.4-10.2); Total Bilirubin 0.5 mg/dL (0.2-1.3); Total Protein 5.8 g/dL (6.3-8.2)
[2020-01-04 16:03] VITALS: RESP 18
[2020-01-04 16:25] LABS: Appearance,Urine Cloudy (Clear); Bilirubin,Urine Negative (Negative); Blood,Urine Trace (Negative); Color,Urine Yellow; Glucose,Urine (UA) Negative (Negative); Ketones,Urine Negative (Negative); Leukocyte Esterase,Urine Negative (Negative); Mucus,Urine Many /hpf; Nitrite,Urine Negative (Negative); Protein,Urine 1+ (Negative); RBC,Urine 1 /hpf (0-5); Specific Gravity,Urine 1.037 (1.001-1.035); Squamous Epithelial Cell,Urine 8 /hpf (0-4); WBC,Urine 1 /hpf (0-5)
--- NOTE | 2020-01-04 17:58 | CT ---
EXAMINATION TYPE: CT abdomen pelvis w con DATE OF EXAM: 01/04/2020 HISTORY: abdominal pain CT DLP: 1072mGycm Automated Exposure Control for Dose Reduction was Utilized. CONTRAST: CT scan of the abdomen and pelvis is performed without oral but with IV Contrast, patient injected wi th 100 mL of Isovue 300. COMPARISON: CT abdomen and pelvis November 05, 2019 FINDINGS: LUNG BASES: No significant abnormality is appreciated. LIVER/GB: Cholecystectomy clips are redemonstrated. PANCREAS: No significant abnormality is seen. SPLEEN: No significant abnormality is seen. ADRENALS: No significant abnormality is seen. KIDNEYS: Symmetric cortical medullary uptake and excretion without hydronephrosis seen bilaterally. BOWEL: Lap band device epigastric region stable and satisfactory in position. No suspicious small or large bowel dilatation. UTERUS/ADNEXA: Persistent lobulated uterus extends to left of midline, cannot exclude underlying fibr oid. No significant change from prior. LYMPH NODES: No greater than 1cm abdominal or pelvic lymph nodes are appreciated. OSSEOUS STRUCTURES: Metallic artifact from left hip arthroplasty causes streak artifact limiting eval uation of pelvic structures. OTHER: No significant additional abnormality is seen. IMPRESSION: No significant new or acute finding is seen to account for patient's clinical symptoms.
[2020-01-04 18:26] VITALS: BP 104/74; PULSE 66
[2020-01-04 18:36] VITALS: TEMP 98.2
== END 2020-01-04 18:35 | disposition home or self-care (01) ==
LOC: EC 13:36
DX: R11.0 Nausea (principal); R10.11 Right upper quadrant pain; R19.7 Diarrhea, unspecified; J45.909 Unspecified asthma, uncomplicated; K21.9 Gastro-esophageal reflux disease without esophagitis; F41.9 Anxiety disorder, unspecified; F32.9 Major depressive disorder, single episode, unspecified; G40.909 Epilepsy, unspecified, not intractable, without status epilepticus; E07.9 Disorder of thyroid, unspecified; G43.909 Migraine, unspecified, not intractable, without status migrainosus; Z79.51 Long term (current) use of inhaled steroids; Z79.899 Other long term (current) drug therapy; Z79.890 Hormone replacement therapy; Z86.14 Personal history of Methicillin resistant Staphylococcus aureus infection; Z85.41 Personal history of malignant neoplasm of cervix uteri; Z98.84 Bariatric surgery status; Z96.642 Presence of left artificial hip joint; Z90.49 Acquired absence of other specified parts of digestive tract
CPT/HCPCS: 36415; 93005; 80053; 82150; 83605; 83690; 85025; 81001; 81025; 74177; 99284; 96374; 96361 ×4; J1885; Q9967

== ENCOUNTER → 2020-01-20 | Outpatient (CLI) | payer MEDICARE, OTHER ==
[2020-01-20 09:53] VITALS: BP 180/93; PULSE 103; RESP 16; TEMP 98.1
--- NOTE | 2020-01-20 10:13 | P.PAINPG ---
Subjective Progress Note Date: 01/20/20 This is a follow-up visit for this 39-year-old female. She has been diagnosed with occipital neuralgia, she underwent bilateral occipital nerve blocks with good relief. She returns today for follow-up. Today, her pain is primarily located in the bilateral neck, radiating to lateral head, left greater than right side. This is associated with left hand spasms. She also continues to have hip pain following hip replacement. She is continuing to get Botox injections with her neurologist. Pain is rated as 7/10 today, described as constant, throbbing, aching, sharp. Pain is worse with upright position, sitting, worse of the day progresses and better with laying down, medications. She continues to use Zanaflex and Apex. These medications are helping control her pain, she has mild side effects in the form of dry mouth from Zanaflex. Review of systems is negative for new onset weakness, numbness/tingling, abdominal pain, malaise, fever, night sweats, chills, homicidal or suicidal ideation, or bowel or bladder incontinence. She did have an acute asthma attack last night and her chest "feel tight" and she is tired. She will be calling her organ tuner this morning. Objective - Vital Signs Vital signs: Vital Signs Temp 98.1 F 01/20/20 09:46 Pulse 103 H 01/20/20 09:46 Resp 16 01/20/20 09:46 BP 180/93 01/20/20 09:46 Pulse Ox 98 01/20/20 09:46 - Exam GENERAL: Well appearing, in no acute distress, walker by her side PSYCH: Mood and affect is appropriate. Awake, alert, and oriented SKIN: Skin color, texture, turgor normal, no rashes or lesions HEENT: Normocephalic, atraumatic. EOM intact CV: No pedal edema RESP: Respirations are unlabored, no audible wheezing GI: Abdomen non-distended MUSCULOSKELETAL: Bilateral upper extremity strength is normal and symmetric. No atrophy or tone abnormalities are noted. Neck: Tenderness to palpation over the cervical paraspinous muscles bilaterally, worse on the left side. SHoffman's sign negative. torticolis noted. Limited range of motion in left lateral flexion of the neck Extremities: Peripheral joint ROM is full and pain free without obvious instability or laxity in all four extremities. No edema or skin discolorations noted. NEUR: Bilateral upper extremity coordination and muscle stretch reflexes are physiologic and symmetric. No loss of sensation is noted Assessment and Plan Plan: 1. Severe muscle spasm of undetermined etiology, cervical dystonia 2. Lumbar spondylosis with lumbar facet arthropathy 3. Chronic opiate use 4. Avascular necrosis of the hip status post hip replacement 5. Bilateral occipital neuralgia Patient denies any side effects of the current pain medication and the current treatment/medication helping the patient to do activity of daily living , Diagnoses, prognosis, treatment options, including but not limited to physical therapy, medication management, interventional therapies, and surgery, were discussed with the patient All the questions answered The narcotic consent was signed and patient agreed and understood the side effects and complications of opioid treatment. Patient signed the narcotic agreement, and was orally counseled, not to overuse, not to abuse, not to Divert , not tp sell pain medication, and to take it as prescribed only, Patient was counseled not to drive or operate heavy equipment while using narcotic medication, and advised not to use alcohol or any Illicit drugs while using the narcotis. understanding that lack of compliance with any of the above instructions, will likely to cause discharge from, the pain service, not to renew his narcotic prescriptions MAPS Reviwed and it was apropriate . Medication managements= patient will be given prescription refills for Apex 7.5/325 every 6 hours dispense 120 with one refill and Zanaflex 4 mg every 8 hours dispense 90 with 1 refill , Time with Patient: Less than 30 PQRS Measure Charge Sheet Measure #130: Documentation of Current Meds in Medical Chart: Patient's medications documented in chart Measure #226: Tobacco Use: Screen & Cessation Intervention: Pt not a tobacco user Measure #111: Pneumonia Vaccination: Pneumococcal vaccine administered or previously received Measure #47: Advance Care Plan: Advance care planning discussed & documented, pt chose/unable to give Measure #412: Opioid Treatment Agreement: Documented signed opioid trtmnt agreemnt min once during opioid trtmnt Measure #408: Opioid Therapy Follow-up Evaluation: Patient had f/u eval minimum every 3 months during opioid therapy Measure #317: Preventitive Care & Scrn High Bld Press & F/U: Pre-hypertensive or hypertensive BP documented, pt will f/u with PCP Measure #128: Body Mass Index (BMI) Screening & Follow-up: BMI documented ABOVE normal parameters - f/u documented Measure #131: Pain Assessment & Follow-up: Pain positive & plan documented, Follow-up scheduled Measure #431: Unhealthy Alcohol Use Preventative Care & Scrn: Patient not identified as an unhealthy alcohol user PQRS Narrative: Smoking Status Never smoker Narcotic Agreement Date Signed 11/25/19 Blood Pressure 180/93 Pain Intensity [Neck] 4 Scale Used Numeric (1 - 10) Hx Alcohol Use (MH) No Home Medications: Ambulatory Orders Levalbuterol HCl [Xopenex Nebulized] 0.63 mg INHALATION QID PRN 07/10/18 Medroxyprogesterone Acetate [Depo-Provera] 150 mg IM Q84D 07/10/18 Omalizumab [Xolair] 300 mg SQ Q28D 07/10/18 Cholecalciferol [Vitamin D3 (25 Mcg = 1000 Iu)] 2,000 unit PO DAILY 08/10/18 Albuterol Inhaler (Mhu) [Ventolin Hfa Inhaler (Mhu)] 2 puff INHALATION Q6HR PRN 12/18/18 Methylphenidate HCl [Concerta] 36 mg PO DAILY 04/09/19 Levothyroxine Sodium [Synthroid] 137 mcg PO SUMOTUWETHSA 06/22/19 Botox Injecctions 300 mg INJ DIRECTED 07/09/19 traZODone HCL 100 mg PO HS 07/09/19 PARoxetine [Paxil] 20 mg PO HS 12/18/19 HYDROcodone/APAP 7.5-325MG [Apex 7.5-325] 1 tab PO Q6H PRN #120 tab 01/20/20 HYDROcodone/APAP 7.5-325MG [Apex 7.5-325] 1 tab PO Q6HR PRN #120 tab 01/20/20 tiZANidine [Zanaflex] 4 mg PO Q8HR PRN 30 Days #90 tab 01/20/20 Controlled Substance Measures - Controlled Substance Measures Is patient prescribed a controlled substance at discharge?: Yes
== END | disposition home or self-care (01) ==
LOC: PNWHC3 08:31
PROVIDERS: ATTEND Specialist
DX: M47.816 Spondylosis without myelopathy or radiculopathy, lumbar region (principal); G24.3 Spasmodic torticollis; M62.838 Other muscle spasm; F11.90 Opioid use, unspecified, uncomplicated; Z79.899 Other long term (current) drug therapy; Z79.890 Hormone replacement therapy
CPT/HCPCS: 99211

== ENCOUNTER → 2020-03-07 | Outpatient (CLI) | payer MEDICARE, OTHER ==
[2020-03-07 10:15] LABS: Basophils % (A) 0 %; Eosinophils # (A) 0.1 k/uL (0-0.7); Eosinophils % (A) 1 %; HCT 40.2 % (34.0-46.0); Lymphocytes # (A) 1.5 k/uL (1.0-4.8); Lymphocytes % (A) 21 %; MCH 34.1 pg (25.0-35.0); MCHC 34.9 g/dL (31.0-37.0); MCV 97.7 fL (80.0-100.0); Monocytes # (A) 0.3 k/uL (0-1.0); Monocytes % (A) 4 %; Neutrophils # (A) 5.3 k/uL (1.3-7.7); Neutrophils % (A) 73 %; Platelet Count 218 k/uL (150-450); RBC 4.11 m/uL (3.80-5.40); RDW 11.5 % (11.5-15.5); WBC 7.3 k/uL (3.8-10.6)
[2020-03-07 15:23] LABS: African American GFR (CKD) 82.2 (60.0-200.0); Albumin 4.5 g/dL (3.80-4.90); Albumin/Globulin Ratio 2.37 (1.60-3.17); Anion Gap 9.3 mmol/L (4.00-12.00); Calcium 9.3 mg/dL (8.7-10.3); Carbon Dioxide 25.7 mmol/L (21.6-31.8); Chol/HDL Ratio 2.86; Globulin 1.9 g/dL (1.6-3.3); LDL Cholesterol,Calculated 107.4 mg/dL (0.0-131.0); Non-African American GFR(CKD) 70.9 (60.0-200.0); Potassium 4.5 mmol/L (3.5-5.5); Total Bilirubin 0.5 mg/dL (0.2-1.2); Total Protein 6.4 g/dL (6.2-8.2); VLDL Calculation 11.6 mg/dL (5.00-40.00)
[2020-03-07 17:02] LABS: INR 0.96 (0.90-1.11); Partial Thromboplastin Time 25.1 sec (24.7-29.9); Prothrombin Time 10.3 sec (9.9-11.9)
== END | disposition home or self-care (01) ==
LOC: LABWHC1 08:47
PROVIDERS: ATTEND Family Medicine
DX: Z01.818 Encounter for other preprocedural examination (principal); E03.9 Hypothyroidism, unspecified
CPT/HCPCS: 36415; 80053; 80061; 84439; 84443; 84481; 85025; 85610; 85730

== ENCOUNTER → 2020-03-09 | Outpatient (CLI) | payer MEDICARE, OTHER ==
[2020-03-09 08:33] VITALS: BP 123/87; PULSE 103; RESP 20; TEMP 98.8
--- NOTE | 2020-03-09 08:50 | P.PN ---
Subjective Progress Note Date: 03/09/20 his is a 39-year-old lady with history of chronic lower back pain and left hip pain due to lumbar spondylosis andleft avascular necrosis. The patient had left total hip replacement about one year ago but she still feels discomfort in the left hip because she did not have a chance to follow up with physical therapy due to the moore virus pandemic.she also developed severe dystonia in her neck and she gets Botox injections in the neck muscles every 10 weeks. The patient is still takes [place] 7.5 mg 4 times a day and Zanaflex 4 mg 2-3 times a day depending on theintensity of her dystonia. The patient has history of asthma and she had to be intubated previously for severe asthma attack Patient denies new-onset weakness, bowel/bladder incontinence, or any other signs or symptoms of cauda equina syndrome. There are no signs of acute intoxication, and no indications of medication diversion or overuse. In addition to above, 13-point review of systems is also negative for chest pain, shortness of breath, changes in vision, changes in hearing, new onset weak ness, abdominal pain, diarrhea, extreme fatigue, malaise, fever, skin changes, homicidal or suicidal ideation, or bowel or bladder incontinence. Vital Signs: Reviewed in EMR Gen: AAOx3, NAD HEENT: PERRLA,hearing grossly normal Pulm: resp unlabored Neck: supple, trachea midline positive muscle spasm in the cervical paravertebral musculature. The patient's head is tilted to the right due to her dystonia she has normal muscle strength in the upper extremities bilaterally and symmetrically Neuro: CN II-XII grossly intact, Imaging: Reviewed in EMR/chart Assessment: cervical muscular dystonia Lumbar spondylosis without myelopathy Avascular necrosis of the left hip status post hip replacement Opioid dependence History of severe asthma Plan: 1. Explanation: Opioid and psychological risk scores were reviewed. Diagnoses, prognoses, and multiple treatment options including but not limited to physical therapy, interventional therapies, adjuvant medical therapies, narcotic medicat ion therapies, and surgery were discussed with the patient and all questions were answered to the patient's satisfaction. 2. Opioid agreement: Signed with the patient and the patient is warned not to use opioids while driving or before driving and not to combine opioids with benzodiazepines or alcohol. 3. Counseling: The patient was counseled extensively on SMOKING CESSATION, BODY MASS INDEX, EXERCISE. Specifically, the patient was instructed regarding the importance of smoking cessation, obesity, and exercise in the context of both chronic pain and overall health. 4. Procedures: none 5. Consultations: None 6. Investigations: None 7. Medications: continue [place] 7.5 mg 4 times a day as needed for pain and Zanaflex 4 mg 2-3 times a day 8. Disposition: return to clinic in 8 weeks 9. Maps were reviewed and were appropriate. Controlled Substance Measures Is patient prescribed a controlled substance at discharge?: Yes When asked, does pt state using other controlled substances?: No If prescribed controlled substance>3 days was MAPS reviewed?: Yes If Rx opioid, was Start Talking consent form obtained?: Yes If opioid is for acute pain is fill amount 7 days or less?: No Was information provided regarding opioid addiction?: Yes Objective - Vital Signs Vital signs: Vital Signs Temp 98.8 F 03/09/20 08:13 Pulse 103 H 03/09/20 08:13 Resp 20 03/09/20 08:13 BP 123/87 03/09/20 08:13 Pulse Ox 99 03/09/20 08:13 Intake & Output 03/08/20 03/09/20 03/09/20 18:59 06:59 18:59 Weight 72.575 kg
== END | disposition home or self-care (01) ==
LOC: PNWHC3 08:02
PROVIDERS: ATTEND Anesthesiology
DX: M47.816 Spondylosis without myelopathy or radiculopathy, lumbar region (principal); M87.052 Idiopathic aseptic necrosis of left femur; G24.3 Spasmodic torticollis; Z87.09 Personal history of other diseases of the respiratory system; F11.20 Opioid dependence, uncomplicated; Z96.642 Presence of left artificial hip joint; Z79.899 Other long term (current) drug therapy
CPT/HCPCS: 99211

== ENCOUNTER 2020-03-28 16:00 | Emergency (ER) | payer MEDICARE, OTHER ==
[2020-03-28] MEDS ORDERED: KETOROLAC 15 MG/ML 1 ML VIAL IVP STA (16:57)
[2020-03-28] MEDS ORDERED: SODIUM CHLORIDE 0.9% 1,000 ML IV STA (16:57)
--- NOTE | 2020-03-28 17:08 | ED ---
General Adult HPI - General Chief complaint: Extremity Problem,Nontraumatic Stated complaint: Post Op Surgery - R Foot Pain & SOB Time Seen by Provider: 03/28/20 16:31 Source: patient Mode of arrival: wheelchair Limitations: no limitations - History of Present Illness Initial comments: Patient is a 39-year-old female presenting to the emergency Department with complaints of right foot pain and bruising as increasing over the past few days. Patient states she had a bone growth removed 6 days ago, at [facility]. Patient states that for the last few days her pain has actually increased in her right foot and up her right lower leg. She is also noticing some bruising that is spreading as well her right lower leg and is also having some calf tightness. She states she does have a history of severe asthma and feels like she is more short of breath than usual since yesterday. She has been doing at home albuterol treatments without significant improvement in her symptoms. She denies a cough at this time. She denies recent fevers or chills. Patient states she did talk to her doctor about the redness around her wound and was started on clindamycin 450 mg 4 days ago. Patient states she's been taking this 3 times a day and she's been having diarrhea and nausea with this as well. She is also taking [place] as at home for the pain which has not been helping. She denies any chest pains. She states her appetite has been really low and she is having intermittent bouts of lightheadedness, she believes she is dehydrated. She denies being this time. She has no further complaints. Upon arrival to the ER, patient's temperature is 99.9, pulse is 102, rest of vitals normal. - Related Data Home Medications Medication Instructions Recorded Confirmed Levalbuterol HCl [Xopenex 0.63 mg INHALATION QID PRN 07/10/18 03/09/20 Nebulized] Medroxyprogesterone Acetate 150 mg IM Q84D 07/10/18 03/09/20 [Depo-Provera] Omalizumab [Xolair] 300 mg SQ Q28D 07/10/18 03/09/20 Cholecalciferol [Vitamin D3 (25 2,000 unit PO DAILY 08/10/18 03/09/20 Mcg = 1000 Iu)] Albuterol Inhaler (Mhu) [Ventolin 2 puff INHALATION Q6HR PRN 12/18/18 03/09/20 Hfa Inhaler (Mhu)] Methylphenidate HCl [Concerta] 36 mg PO DAILY 04/09/19 03/09/20 Levothyroxine Sodium [Synthroid] 137 mcg PO SUMOTUWETHSA 06/22/19 03/09/20 Botox Injecctions 300 mg INJ DIRECTED 07/09/19 03/09/20 traZODone HCL 100 mg PO HS 07/09/19 03/09/20 PARoxetine [Paxil] 20 mg PO HS 12/18/19 03/09/20 Previous Rx's Medication Instructions Recorded tiZANidine [Zanaflex] 4 mg PO Q8HR PRN 30 Days #90 tab 01/20/20 HYDROcodone/APAP 7.5-325MG [[place] 1 tab PO Q6H PRN 23 Days #92 tab 02/04/20 7.5-325] Allergies Allergy/AdvReac Type Severity Reaction Status Date / Time No Known Allergies Allergy Verified 03/28/20 16:09 Review of Systems ROS Statement: Those systems with pertinent positive or pertinent negative responses have been documented in the HPI. ROS Other: All systems not noted in ROS Statement are negative. Past Medical History Past Medical History: Asthma, Cancer, GERD/Reflux, Seizure Disorder, Thyroid Disorder Additional Past Medical History / Comment(s): TACHYCARDIA, peptic ulcers, anemia."HAS BEEN ON VENTILATOR IN PAST D/T SEVERE ASTHMA ATTACK," BULEMIA-STATES GETTING BETTER, CONSTIPATION. HERNIATED DISC, cervical cancer. 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 recent antibiotoc for infection in arm-now resolved per pt History of Any Multi-Drug Resistant Organisms: MRSA Date of last positivie culture/infection: 08/25/14 MDRO Source:: rt Groin Past Surgical History: Bariatric Surgery, Cholecystectomy, Joint Replacement, Orthopedic Surgery, Tonsillectomy Additional Past Surgical History / Comment(s): Tilt table test, lap band 2007; NASAL FX REPAIR , ORIF LT ELBOW X2, PAIN PROCEDURES for migraines. Surgery on her cervix for cancer, rt foot surgery(Fx), cysto/lithotripsy , left hip replacement 12/2018, lumbar puncture, cervical biopsy in August @[facility], bone tumor removal Past Anesthesia/Blood Transfusion Reactions: Postoperative Nausea & Vomiting (PONV) Past Psychological History: Anxiety, Depression Smoking Status: Never smoker Past Alcohol Use History: None Reported Past Drug Use History: None Reported - Past Family History Mother Family Medical History: Pneumonia Additional Family Medical History / Comment(s): Mother of pneumonia. Patient's son of brain cancer, last mother and father both liver cancer Son(s) Family Medical History: Cancer Additional Family Medical History / Comment(s): Son of brain cancer. Father Family Medical History: Cancer Additional Family Medical History / Comment(s): liver General Exam - General Exam Comments Initial Comments: GENERAL: Patient is well-developed and well-nourished. Patient is nontoxic and in no acute distress. HEAD: Atraumatic, normocephalic. EYES: Pupils equal round and reactive to light, extraocular movements intact, sclera anicteric, conjunctiva are normal. Eyelids were unremarkable. ENT: TMs normal, nares patent, oropharynx clear without exudates. Moist mucous membranes. NECK: Normal range of motion, supple without lymphadenopathy or JVD. LUNGS: Unlabored respirations. Breath sounds clear to auscultation bilaterally and equal. No wheezes rales or rhonchi. HEART: Regular rate and rhythm without murmurs, rubs or gallops. ABDOMEN: Soft, nontender, normoactive bowel sounds. No guarding, no rebound. No masses appreciated. : Deferred MUSCULOSKELETAL: Patient has recent surgical incision, 2cm, on the lateral aspect of her right foot, there is bruising surrounding the area, tenderness with palpation. There is some mild redness around the wound as well. She does have pain with palpation of the right calf. No clubbing or cyanosis. NEUROLOGICAL: Patient is alert and oriented x 3. Motor and sensory are also intact. Cranial nerves II through XII grossly intact. Symmetrical smile. Normal speech. PSYCH: Normal mood, normal affect. SKIN: Warm, Dry, normal turgor, no rashes. Limitations: no limitations Course Vital Signs 03/28/20 03/28/20 16:05 19:48 Temperature 99.9 F H 98.8 F Pulse Rate 102 H 82 Respiratory 20 16 Rate Blood Pressure 153/88 114/78 O2 Sat by Pulse 99 98 Oximetry Medical Decision Making - Medical Decision Making Patient is a 39-year-old female here for increased right foot pain and swelling, mild shortness of breath one week after having surgery on her right foot. She did arrive with a 99.9 temp, 102 pulse. Patient has a 2 cm incision on the right foot from recent surgical procedure, surrounding ecchymosis, mild edema. Some mild pain of the right calf as well. Labs showed normal white count, hemoglobin is stable, d-dimer is normal. Urine is normal. Patient received pain control, fluids. Her vital signs have stabilized. She is resting complaining ER. Blood cultures are pending. I discussed with patient that she did continue with her already prescribed clindamycin, she does have a follow-up with her surgeon on of this week. She is stable for discharge. I recommended alternating her [place]'s with ibuprofen at home. Make sure to elevate above the heart, ice. She is in agreement with this plan of care. Return parameters were discussed with the patient she verbalized understanding. - Lab Data Result diagrams: 03/28/20 16:57 03/28/20 16:57 Lab Results 03/28/20 03/28/20 03/28/20 Range/Units 16:57 16:57 16:57 WBC 6.1 (3.8-10.6) k/uL RBC 3.87 (3.80-5.40) m/uL Hgb 13.0 (11.4-16.0) gm/dL Hct 38.2 (34.0-46.0) % MCV 98.9 (80.0-100.0) fL MCH 33.7 (25.0-35.0) pg MCHC 34.0 (31.0-37.0) g/dL RDW 11.7 (11.5-15.5) % Plt Count 240 (150-450) k/uL Neutrophils % 66 % Lymphocytes % 26 % Monocytes % 5 % Eosinophils % 2 % Basophils % 1 % Neutrophils # 4.0 (1.3-7.7) k/uL Lymphocytes # 1.6 (1.0-4.8) k/uL Monocytes # 0.3 (0-1.0) k/uL Eosinophils # 0.1 (0-0.7) k/uL Basophils # 0.0 (0-0.2) k/uL PT 10.0 (9.0-12.0) sec INR 1.0 (<1.2) APTT 19.2 L (22.0-30.0) sec D-Dimer 0.36 (<0.60) mg/L FEU Sodium (137-145) mmol/L Potassium (3.5-5.1) mmol/L Chloride (98-107) mmol/L Carbon Dioxide (22-30) mmol/L Anion Gap mmol/L BUN (7-17) mg/dL Creatinine (0.52-1.04) mg/dL Est GFR (CKD-EPI)AfAm (>60 ml/min/1.73 sqM) Est GFR (CKD-EPI)NonAf (>60 ml/min/1.73 sqM) Glucose (74-99) mg/dL Plasma Lactic Acid Yordan (0.7-2.0) mmol/L Calcium (8.4-10.2) mg/dL Total Bilirubin (0.2-1.3) mg/dL AST (14-36) U/L ALT (4-34) U/L Alkaline Phosphatase (38-126) U/L C-Reactive Protein (<10.0) mg/L Total Protein (6.3-8.2) g/dL Albumin (3.5-5.0) g/dL Urine Color Yellow Urine Appearance Clear (Clear) Urine pH 6.0 (5.0-8.0) Ur Specific [place] 1.024 (1.001-1.035) Urine Protein Negative (Negative) Urine Glucose (UA) Negative (Negative) Urine Ketones Negative (Negative) Urine Blood Negative (Negative) Urine Nitrite Negative (Negative) Urine Bilirubin Negative (Negative) Urine Urobilinogen <2.0 (<2.0) mg/dL Ur Leukocyte Esterase Negative (Negative) 03/28/20 03/28/20 Range/Units 16:57 16:57 WBC (3.8-10.6) k/uL RBC (3.80-5.40) m/uL Hgb (11.4-16.0) gm/dL Hct (34.0-46.0) % MCV (80.0-100.0) fL MCH (25.0-35.0) pg MCHC (31.0-37.0) g/dL RDW (11.5-15.5) % Plt Count (150-450) k/uL Neutrophils % % Lymphocytes % % Monocytes % % Eosinophils % % Basophils % % Neutrophils # (1.3-7.7) k/uL Lymphocytes # (1.0-4.8) k/uL Monocytes # (0-1.0) k/uL Eosinophils # (0-0.7) k/uL Basophils # (0-0.2) k/uL PT (9.0-12.0) sec INR (<1.2) APTT (22.0-30.0) sec D-Dimer (<0.60) mg/L FEU Sodium 136 L (137-145) mmol/L Potassium 4.5 (3.5-5.1) mmol/L Chloride 107 (98-107) mmol/L Carbon Dioxide 23 (22-30) mmol/L Anion Gap 6 mmol/L BUN 15 (7-17) mg/dL Creatinine 0.97 (0.52-1.04) mg/dL Est GFR (CKD-EPI)AfAm 86 (>60 ml/min/1.73 sqM) Est GFR (CKD-EPI)NonAf 74 (>60 ml/min/1.73 sqM) Glucose 87 (74-99) mg/dL Plasma Lactic Acid Yordan 1.0 (0.7-2.0) mmol/L Calcium 9.3 (8.4-10.2) mg/dL Total Bilirubin 0.8 (0.2-1.3) mg/dL AST 31 (14-36) U/L ALT 19 (4-34) U/L Alkaline Phosphatase 57 (38-126) U/L C-Reactive Protein <5.0 (<10.0) mg/L Total Protein 7.1 (6.3-8.2) g/dL Albumin 4.5 (3.5-5.0) g/dL Urine Color Urine Appearance (Clear) Urine pH (5.0-8.0) Ur Specific [place] (1.001-1.035) Urine Protein (Negative) Urine Glucose (UA) (Negative) Urine Ketones (Negative) Urine Blood (Negative) Urine Nitrite (Negative) Urine Bilirubin (Negative) Urine Urobilinogen (<2.0) mg/dL Ur Leukocyte Esterase (Negative) Disposition Clinical Impression: Right foot pain, Right calf pain, Shortness of breath Disposition: HOME SELF-CARE Condition: Stable Instructions (If sedation given, give patient instructions): Arthralgia (ED) Additional Instructions: Please return to the Emergency Department if symptoms worsen or any other conc erns. Labs and ultrasound today are normal. Continue with already prescribed antibiotics, may alternate [place] with ibuprofen or Aleve. Follow up with surgeon as discussed. Is patient prescribed a controlled substance at d/c from ED?: No Referrals: Slade Gonzalez MD [Primary Care Provider] - 1-2 days
[2020-03-28 17:47] LABS: Basophils % (A) 1 %; Eosinophils # (A) 0.1 k/uL (0-0.7); Eosinophils % (A) 2 %; HCT 38.2 % (34.0-46.0); Lymphocytes # (A) 1.6 k/uL (1.0-4.8); Lymphocytes % (A) 26 %; MCH 33.7 pg (25.0-35.0); MCV 98.9 fL (80.0-100.0); Mean Platelet Volume 6.8; Monocytes # (A) 0.3 k/uL (0-1.0); Monocytes % (A) 5 %; Neutrophils % (A) 66 %; Platelet Count 240 k/uL (150-450); RBC 3.87 m/uL (3.80-5.40); RDW 11.7 % (11.5-15.5); WBC 6.1 k/uL (3.8-10.6)
[2020-03-28] MEDS ORDERED: MORPHINE SULFATE 4 MG/ML SYRINGE IVP STA (17:54)
[2020-03-28 17:58] LABS: ALT 19 U/L (4-34); AST 31 U/L (14-36); African American GFR (CKD) 86 (>60 ml/min/1.73 sqM); Albumin 4.5 g/dL (3.5-5.0); Alkaline Phosphatase 57 U/L (38-126); Anion Gap 6 mmol/L; Blood Urea Nitrogen 15 mg/dL (7-17); C Reactive Protein <5.0 mg/L (<10.0); Calcium 9.3 mg/dL (8.4-10.2); Carbon Dioxide 23 mmol/L (22-30); Chloride 107 mmol/L (98-107); Glucose 87 mg/dL (74-99); Non-African American GFR(CKD) 74 (>60 ml/min/1.73 sqM); Potassium 4.5 mmol/L (3.5-5.1); Sodium 136 mmol/L (137-145); Total Bilirubin 0.8 mg/dL (0.2-1.3); Total Protein 7.1 g/dL (6.3-8.2)
[2020-03-28 18:11] LABS: D-Dimer 0.36 mg/L FEU (<0.60)
[2020-03-28 18:12] LABS: Partial Thromboplastin Time 19.2 sec (22.0-30.0)
--- NOTE | 2020-03-28 19:38 | US ---
EXAMINATION TYPE: US venous doppler duplex LE RT DATE OF EXAM: 03/28/2020 7:30 PM COMPARISON: US 2018 CLINICAL HISTORY: pain, swelling, recent surgery. Pain and swelling after recent surgery on 03/22/20. Hx superficial clot in arm. Patient takes baby aspirin. SIDE PERFORMED: Right TECHNIQUE: The lower extremity deep venous system is examined utilizing real time linear array sonog bob with graded compression, doppler sonography and color-flow sonography. VESSELS IMAGED: External Iliac Vein (EIV) Common Femoral Vein Deep Femoral Vein Greater Saphenous Vein * Femoral Vein Popliteal Vein Small Saphenous Vein * Proximal Calf Veins (* superficial vessels) The right common femoral, superficial femoral, popliteal veins all compress normally and show no abno rmal luminal echoes, venous waveforms are normal Right Leg: No evidence of DVT in veins imaged at this time from prox calf veins to EIV. IMPRESSION: No evident deep venous thrombosis at or above the right knee
[2020-03-28 19:49] VITALS: BP 114/78; PULSE 82; RESP 16; TEMP 98.8
[2020-03-28 19:55] LABS: Appearance,Urine Clear (Clear); Bilirubin,Urine Negative (Negative); Blood,Urine Negative (Negative); Color,Urine Yellow; Glucose,Urine (UA) Negative (Negative); Ketones,Urine Negative (Negative); Leukocyte Esterase,Urine Negative (Negative); Nitrite,Urine Negative (Negative); Protein,Urine Negative (Negative); Specific Gravity,Urine 1.024 (1.001-1.035); Urobilinogen,Urine <2.0 mg/dL (<2.0)
== END 2020-03-28 20:20 | disposition home or self-care (01) ==
LOC: EC 16:00
DX: S90.31XA Contusion of right foot, initial encounter (principal); R06.02 Shortness of breath; M79.661 Pain in right lower leg; J45.909 Unspecified asthma, uncomplicated; E07.9 Disorder of thyroid, unspecified; G43.909 Migraine, unspecified, not intractable, without status migrainosus; F32.9 Major depressive disorder, single episode, unspecified; F41.9 Anxiety disorder, unspecified; Z79.3 Long term (current) use of hormonal contraceptives; Z79.899 Other long term (current) drug therapy; Z79.890 Hormone replacement therapy; Z96.642 Presence of left artificial hip joint; Z86.14 Personal history of Methicillin resistant Staphylococcus aureus infection; Z85.41 Personal history of malignant neoplasm of cervix uteri; X58.XXXA Exposure to other specified factors, initial encounter
CPT/HCPCS: 36415; 85379; 80053; 83605; 85025; 85610; 85730; 86140; 81003; 87040; 93971; 99285; 96374; 96375; J2270; J1885

== ENCOUNTER 2020-04-13 03:42 | Emergency (ER) | payer MEDICARE, OTHER ==
--- NOTE | 2020-04-13 03:48 | ED ---
SOB HPI - General Stated Complaint: SIRISHA Time Seen by Provider: 04/13/20 03:44 Source: RN notes reviewed, old records reviewed Limitations: no limitations - History of Present Illness Initial Comments: This is a 39-year-old female coming DF for evaluation. She presents with known history of asthma stating that she has been worsening asthma exacerbation he can't get into her family doctor without a: Coronavirus test. The patient is mainly presenting for coronavirus test, no fevers. Patient has no pain no chest pain, she does have mild shortness of breath although she states she is in no significant distress is of that is a common occurrence for her. No travel history or sick contacts. MD Complaint: shortness of breath, cough, "asthma attack" -: days(s) Severity: moderate Severity scale (1-10): 5 Consistency: constant Improves With: nothing Worsens With: exertion Known History Of: COPD, asthma Context: recent URI Associated Symptoms: pain with inspiration, cough, sputum production Treatments Prior to Arrival: none - Related Data Home Medications Medication Instructions Recorded Confirmed Levalbuterol HCl [Xopenex 0.63 mg INHALATION QID PRN 07/10/18 03/09/20 Nebulized] Medroxyprogesterone Acetate 150 mg IM Q84D 07/10/18 03/09/20 [Depo-Provera] Omalizumab [Xolair] 300 mg SQ Q28D 07/10/18 03/09/20 Cholecalciferol [Vitamin D3 (25 2,000 unit PO DAILY 08/10/18 03/09/20 Mcg = 1000 Iu)] Albuterol Inhaler (Mhu) [Ventolin 2 puff INHALATION Q6HR PRN 12/18/18 03/09/20 Hfa Inhaler (Mhu)] Methylphenidate HCl [Concerta] 36 mg PO DAILY 04/09/19 03/09/20 Levothyroxine Sodium [Synthroid] 137 mcg PO SUMOTUWETHSA 06/22/19 03/09/20 Botox Injecctions 300 mg INJ DIRECTED 07/09/19 03/09/20 traZODone HCL 100 mg PO HS 07/09/19 03/09/20 PARoxetine [Paxil] 20 mg PO HS 12/18/19 03/09/20 Previous Rx's Medication Instructions Recorded tiZANidine [Zanaflex] 4 mg PO Q8HR PRN 30 Days #90 tab 01/20/20 HYDROcodone/APAP 7.5-325MG [[place] 1 tab PO Q6H PRN 23 Days #92 tab 02/04/20 7.5-325] Allergies Allergy/AdvReac Type Severity Reaction Status Date / Time No Known Allergies Allergy Verified 04/13/20 03:50 Review of Systems ROS Statement: Those systems with pertinent positive or pertinent negative responses have been documented in the HPI. ROS Other: All systems not noted in ROS Statement are negative. Past Medical History Past Medical History: Asthma, Cancer, GERD/Reflux, Seizure Disorder, Thyroid Disorder Additional Past Medical History / Comment(s): TACHYCARDIA, peptic ulcers, anemia."HAS BEEN ON VENTILATOR IN PAST D/T SEVERE ASTHMA ATTACK," BULEMIA-STATES GETTING BETTER, CONSTIPATION. HERNIATED DISC, cervical cancer. 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 recent antibiotoc for infection in arm-now resolved per pt History of Any Multi-Drug Resistant Organisms: MRSA Date of last positivie culture/infection: 08/25/14 MDRO Source:: rt Groin Past Surgical History: Bariatric Surgery, Cholecystectomy, Joint Replacement, Orthopedic Surgery, Tonsillectomy Additional Past Surgical History / Comment(s): Tilt table test, lap band 2007; NASAL FX REPAIR , ORIF LT ELBOW X2, PAIN PROCEDURES for migraines. Surgery on her cervix for cancer, rt foot surgery(Fx), cysto/lithotripsy , left hip replacement 12/2018, lumbar puncture, cervical biopsy in August @[facility], bone tumor removal Past Anesthesia/Blood Transfusion Reactions: Postoperative Nausea & Vomiting (PONV) Past Psychological History: Anxiety, Depression Smoking Status: Never smoker Past Alcohol Use History: None Reported Past Drug Use History: None Reported - Past Family History Mother Family Medical History: Pneumonia Additional Family Medical History / Comment(s): Mother of pneumonia. P atient's son of brain cancer, last mother and father both liver cancer Son(s) Family Medical History: Cancer Additional Family Medical History / Comment(s): Son of brain cancer. Father Family Medical History: Cancer Additional Family Medical History / Comment(s): liver General Exam General appearance: alert, in no apparent distress, anxious Head exam: Present: atraumatic, normocephalic, normal inspection Eye exam: Present: normal appearance, PERRL, EOMI. Absent: scleral icterus, con junctival injection, periorbital swelling ENT exam: Present: normal exam, mucous membranes moist Neck exam: Present: normal inspection. Absent: tenderness, meningismus, lymphadenopathy Respiratory exam: Present: wheezes. Absent: respiratory distress, rales, rhonchi, stridor Cardiovascular Exam: Present: regular rate, normal rhythm, normal heart sounds. Absent: systolic murmur, diastolic murmur, rubs, gallop, clicks GI/Abdominal exam: Present: soft, normal bowel sounds. Absent: distended, tenderness, guarding, rebound, rigid Extremities exam: Present: normal inspection, full ROM, normal capillary refill. Absent: tenderness, pedal edema, joint swelling, calf tenderness Back exam: Present: normal inspection Neurological exam: Present: alert, oriented X3, CN II-XII intact Psychiatric exam: Present: normal affect, normal mood Skin exam: Present: warm, dry, intact, normal color. 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 Patient can be discharged home - Lab Data Result diagrams: 04/13/20 04:21 04/13/20 04:21 Lab Results 04/13/20 04/13/20 04/13/20 Range/Units 04:21 04:21 04:21 WBC 6.9 (3.8-10.6) k/uL RBC 3.98 (3.80-5.40) m/uL Hgb 13.5 (11.4-16.0) gm/dL Hct 38.2 (34.0-46.0) % MCV 96.0 (80.0-100.0) fL MCH 34.0 (25.0-35.0) pg MCHC 35.4 (31.0-37.0) g/dL RDW 11.6 (11.5-15.5) % Plt Count 177 (150-450) k/uL MPV 7.3 Neutrophils % 94 % Lymphocytes % 3 % Monocytes % 1 % Eosinophils % 2 % Basophils % 0 % Neutrophils # 6.5 (1.3-7.7) k/uL Lymphocytes # 0.2 L (1.0-4.8) k/uL Monocytes # 0.1 (0-1.0) k/uL Eosinophils # 0.1 (0-0.7) k/uL Basophils # 0.0 (0-0.2) k/uL Sodium 136 L (137-145) mmol/L Potassium 4.2 (3.5-5.1) mmol/L Chloride 108 H (98-107) mmol/L Carbon Dioxide 22 (22-30) mmol/L Anion Gap 6 mmol/L BUN 8 (7-17) mg/dL Creatinine 0.90 (0.52-1.04) mg/dL Est GFR (CKD-EPI)AfAm >90 (>60 ml/min/1.73 sqM) Est GFR (CKD-EPI)NonAf 81 (>60 ml/min/1.73 sqM) Glucose 125 H (74-99) mg/dL Plasma Lactic Acid Yordan 1.3 (0.7-2.0) mmol/L Calcium 9.6 (8.4-10.2) mg/dL Magnesium 2.0 (1.6-2.3) mg/dL Ferritin 40.4 (10.0-291.0) ng/mL Total Bilirubin 0.5 (0.2-1.3) mg/dL AST 26 (14-36) U/L ALT 19 (4-34) U/L Alkaline Phosphatase 55 (38-126) U/L Lactate Dehydrogenase 629 H (313-618) U/L C-Reactive Protein 22.7 H (<10.0) mg/L Total Protein 6.9 (6.3-8.2) g/dL Albumin 4.4 (3.5-5.0) g/dL Procalcitonin (0.02-0.09) ng/mL Coronavirus (PCR) (Not Detectd) 04/13/20 04/13/20 Range/Units 04:21 04:21 WBC (3.8-10.6) k/uL RBC (3.80-5.40) m/uL Hgb (11.4-16.0) gm/dL Hct (34.0-46.0) % MCV (80.0-100.0) fL MCH (25.0-35.0) pg MCHC (31.0-37.0) g/dL RDW (11.5-15.5) % Plt Count (150-450) k/uL MPV Neutrophils % % Lymphocytes % % Monocytes % % Eosinophils % % Basophils % % Neutrophils # (1.3-7.7) k/uL Lymphocytes # (1.0-4.8) k/uL Monocytes # (0-1.0) k/uL Eosinophils # (0-0.7) k/uL Basophils # (0-0.2) k/uL Sodium (137-145) mmol/L Potassium (3.5-5.1) mmol/L Chloride (98-107) mmol/L Carbon Dioxide (22-30) mmol/L Anion Gap mmol/L BUN (7-17) mg/dL Creatinine (0.52-1.04) mg/dL Est GFR (CKD-EPI)AfAm (>60 ml/min/1.73 sqM) Est GFR (CKD-EPI)NonAf (>60 ml/min/1.73 sqM) Glucose (74-99) mg/dL Plasma Lactic Acid Yordan (0.7-2.0) mmol/L Calcium (8.4-10.2) mg/dL Magnesium (1.6-2.3) mg/dL Ferritin (10.0-291.0) ng/mL Total Bilirubin (0.2-1.3) mg/dL AST (14-36) U/L ALT (4-34) U/L Alkaline Phosphatase (38-126) U/L Lactate Dehydrogenase (313-618) U/L C-Reactive Protein (<10.0) mg/L Total Protein (6.3-8.2) g/dL Albumin (3.5-5.0) g/dL Procalcitonin 0.03 (0.02-0.09) ng/mL Coronavirus (PCR) Not Detected (Not Detectd) - Radiology Data Radiology results: report reviewed (Chest x-rays negative CT chest is negative), image reviewed Disposition Clinical Impression: Asthma exacerbation Disposition: HOME SELF-CARE Condition: Fair Instructions (If sedation given, give patient instructions): Asthma (ED) Is patient prescribed a controlled substance at d/c from ED?: No Referrals: Slade Gonzalez MD [Primary Care Provider] - 1-2 days
[2020-04-13 03:49] VITALS: TEMP 98.7
[2020-04-13] MEDS ORDERED: IPRATROPIUM 0.5 MG/2.5 ML NEBU INHALATION STA (04:03)
[2020-04-13] MEDS ORDERED: ALBUTEROL NEBULIZED 2.5 MG/3 ML INHALATION STA (04:03)
[2020-04-13] MEDS ORDERED: methylPREDNISolone SOD SUCCI 125 MG/2 ML VIAL IV STA (04:03)
[2020-04-13] MEDS ORDERED: SODIUM CHLORIDE 0.9% 1,000 ML IV STA ×2 (04:03)
[2020-04-13] MEDS ORDERED: MORPHINE SULFATE 2 MG/ML SYRINGE IVP STA (04:04)
[2020-04-13 04:45] LABS: Basophils % (A) 0 %; Eosinophils # (A) 0.1 k/uL (0-0.7); Eosinophils % (A) 2 %; HCT 38.2 % (34.0-46.0); HGB 13.5 gm/dL (11.4-16.0); Lymphocytes # (A) 0.2 k/uL (1.0-4.8); Lymphocytes % (A) 3 %; MCHC 35.4 g/dL (31.0-37.0); Mean Platelet Volume 7.3; Monocytes # (A) 0.1 k/uL (0-1.0); Monocytes % (A) 1 %; Neutrophils # (A) 6.5 k/uL (1.3-7.7); Neutrophils % (A) 94 %; Platelet Count 177 k/uL (150-450); RBC 3.98 m/uL (3.80-5.40); RDW 11.6 % (11.5-15.5); WBC 6.9 k/uL (3.8-10.6)
--- NOTE | 2020-04-13 04:50 | XR ---
EXAM: XR Chest, 1 View CLINICAL HISTORY: Suspected COVID-19 pneumonia TECHNIQUE: Frontal view of the chest. COMPARISON: 06/08/2017. FINDINGS: Lungs: Tiny nodular opacities in the right lower lung zone, raising concern for infectious versus inflammatory small airways disease. Pleural space: Unremarkable. No pneumothorax. Heart: Unremarkable. No cardiomegaly. Mediastinum: Unremarkable. Bones/joints: Unremarkable. IMPRESSION: Tiny nodular opacities in the right lower lung zone, raising concern for infectious versus inflammatory small airways disease. CT of the chest may be obtained for further evaluation, if clinically indicated.
[2020-04-13 04:58] LABS: ALT 19 U/L (4-34); AST 26 U/L (14-36); African American GFR (CKD) >90 (>60 ml/min/1.73 sqM); Albumin 4.4 g/dL (3.5-5.0); Alkaline Phosphatase 55 U/L (38-126); Anion Gap 6 mmol/L; Blood Urea Nitrogen 8 mg/dL (7-17); C Reactive Protein 22.7 mg/L (<10.0); Calcium 9.6 mg/dL (8.4-10.2); Carbon Dioxide 22 mmol/L (22-30); Chloride 108 mmol/L (98-107); Glucose 125 mg/dL (74-99); LDH 629 U/L (313-618); Non-African American GFR(CKD) 81 (>60 ml/min/1.73 sqM); Potassium 4.2 mmol/L (3.5-5.1); Sodium 136 mmol/L (137-145); Total Bilirubin 0.5 mg/dL (0.2-1.3); Total Protein 6.9 g/dL (6.3-8.2)
--- NOTE | 2020-04-13 05:51 | CT ---
EXAM: CT Angiography Chest With Intravenous Contrast CLINICAL HISTORY: sob TECHNIQUE: Axial computed tomographic angiography images of the chest with intravenous contrast. CTDI is 11.37 mGy and DLP is 260.9 mGy-cm. This CT exam was performed using one or more of the following dose reduction techniques: automated exposure control, adjustment of the mA and/or kV according to patient size, and/or use of iterative reconstruction technique. MIP reconstructed images were created and reviewed. COMPARISON: 11/07/2015 and chest x-ray performed earlier the same day. FINDINGS: Pulmonary arteries: Unremarkable. No pulmonary embolism. Aorta: No acute findings. No thoracic aortic aneurysm. 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 Lungs: Unremarkable. No mass. No consolidation. Pleural space: Unremarkable. No significant effusion. No pneumothorax. Heart: Unremarkable. No cardiomegaly. No significant pericardial effusion. No evidence of RV dysfunction. Bones/joints: No acute fracture. No dislocation. Soft tissues: Unremarkable. Lymph nodes: Unremarkable. No enlarged lymph nodes. Stomach and bowel: Status post laparoscopic gastric banding, similar in appearance to prior study. IMPRESSION: No acute findings in the visualized arteries of the chest.
[2020-04-13 06:47] VITALS: BP 148/89; PULSE 80; RESP 18
[2020-04-13 09:38] LABS: Ferritin 40.4 ng/mL (10.0-291.0)
== END 2020-04-13 06:47 | disposition home or self-care (01) ==
LOC: EC 03:42
DX: J45.901 Unspecified asthma with (acute) exacerbation (principal); Z20.828 Contact with and (suspected) exposure to other viral communicable diseases; F32.9 Major depressive disorder, single episode, unspecified; F41.9 Anxiety disorder, unspecified; G40.909 Epilepsy, unspecified, not intractable, without status epilepticus; E07.9 Disorder of thyroid, unspecified; Z79.899 Other long term (current) drug therapy; Z79.890 Hormone replacement therapy; Z98.84 Bariatric surgery status; Z96.652 Presence of left artificial knee joint; Z85.41 Personal history of malignant neoplasm of cervix uteri
CPT/HCPCS: 36415; 94640; 80053; 82728; 83605; 83615; 83735; 85025; 86140; 87040; 84145; 87635; 71045; 71275; 99285; 96374; 96375; 96361 ×2; J2930; J2270; Q9967

== ENCOUNTER → 2020-05-04 | Outpatient (CLI) | payer MEDICARE, OTHER ==
[2020-05-04 09:21] LABS: Basophils % (A) 0 %; Eosinophils % (A) 0 %; HCT 39.3 % (34.0-46.0); HGB 13.9 gm/dL (11.4-16.0); Lymphocytes # (A) 1.4 k/uL (1.0-4.8); Lymphocytes % (A) 25 %; MCH 33.5 pg (25.0-35.0); MCHC 35.4 g/dL (31.0-37.0); MCV 94.4 fL (80.0-100.0); Mean Platelet Volume 6.8; Monocytes # (A) 0.2 k/uL (0-1.0); Monocytes % (A) 4 %; Neutrophils # (A) 3.7 k/uL (1.3-7.7); Neutrophils % (A) 69 %; Platelet Count 217 k/uL (150-450); RBC 4.16 m/uL (3.80-5.40); RDW 11.4 % (11.5-15.5); WBC 5.4 k/uL (3.8-10.6)
[2020-05-04 17:17] LABS: African American GFR (CKD) 82.2 (60.0-200.0); Albumin 4.8 g/dL (3.80-4.90); Albumin/Globulin Ratio 2.67 (1.60-3.17); Anion Gap 9.9 mmol/L (4.00-12.00); Calcium 9.4 mg/dL (8.7-10.3); Carbon Dioxide 24.1 mmol/L (21.6-31.8); Globulin 1.8 g/dL (1.6-3.3); Non-African American GFR(CKD) 70.9 (60.0-200.0); Potassium 4.2 mmol/L (3.5-5.5); Total Bilirubin 0.4 mg/dL (0.2-1.2); Total Protein 6.6 g/dL (6.2-8.2)
== END | disposition home or self-care (01) ==
LOC: LABWHC1 08:36
PROVIDERS: ATTEND Family Medicine
DX: J45.909 Unspecified asthma, uncomplicated (principal)
CPT/HCPCS: 36415; 80053; 85025

== ENCOUNTER → 2020-05-04 | Outpatient (CLI) | payer MEDICARE, OTHER ==
[2020-05-04 08:26] VITALS: BP 134/91; PULSE 114; RESP 20; TEMP 99
--- NOTE | 2020-05-04 08:40 | P.PN ---
Subjective Progress Note Date: 05/04/20 This is a follow-up visit for this 39-year-old female. She has been diagnosed with occipital neuralgia, she underwent bilateral occipital nerve blocks with good relief. Also patient diagnosed with cervical dystonia a. Today, her pain is primarily located in the bilateral neck, radiating to lateral head, left greater than right side. This is associated with left hand spasms. She also continues to have hip pain following hip replacement. She is continuing to get Botox injections with her neurologist. Pain is rated as 7/10 today, described as constant, throbbing, aching, sharp. Pain is worse with upright position, sitting, worse of the day progresses and better with laying down, medications. She continues to use Zanaflex 4 mg when necessary and [place]igator 7.5/625 every 6 hours when necessary. These medications are helping control her pain, she has mild side effects in the form of dry mouth from Zanaflex. Review of systems is negative for new onset weakness, numbness/tingling, abdominal pain, malaise, fever, night sweats, chills, homicidal or suicidal ideation, or bowel or bladder incontinence. Objective - Vital Signs Vital signs: Intake & Output 05/03/20 05/04/20 05/04/20 18:59 06:59 18:59 Weight 68.492 kg - Exam 1-Constitutional : Cooperative , not in acute distress . 2-HEENT : nech ; supple , no Lymphadenopathy , no Thyromegaly , normal thyroid size . eyes : no ptosis , no icterus, no photophobia . ENT : normal of hearing , normal oropharynx , no Thrush . 3- Respiratory : Chest clear to auscultations Bilaterally , no wheezing , no Rhonchi . 4- Cardiovascular : regular rate and rhythem , S1 , S2 , no S3 , no S4. 5- Gastrointestinal : abdomen soft no tenderness , bowel sounds positive all four quadrents , no organomegally . 6- Genitourinary : Defferred . 7- neurologic: Cranial nerve II to XII intact , no focal neurological deffecit . 8- Psychatric: alert , oriented X 3 , appropriate affect , intact judgment and insight . 9- Lymphatic : no Lymphadenopathy . 10- Musculoskeltal : exams of the cervical spine = motor strength normal bilateral upper extremities facet loading test cervical area positive. Multiple trigger points in the cervical paravertebral muscles rhomboid and trapezius muscles examined more than the left side exams of the [place] spine = motor strength lower extremities ,thigh and legs decreased Assessment and Plan Plan: Assessment and plan = Chronic low back pain secondary to lumbar degenerative disc disease , lumbar spondylosis with facet arthropathy without myelopathy Upper back pain secondary to myofascial pain syndrome and cervical area. And cervical dystonia Midback pain secondary to thoracic herniated disc disease Severe muscle spasm with undetermined etiology chronic and current use of high-risk medication (Opioids). The patient was counseled about risk of opioid use, psychological risk associated with opioids and was orally counseled to not overuse , divert,or sell dictations to take medications as prescribed only , and to restore medication in safe location , the patient counseled against driving while using narcotic medications, and also not to use alcohol or any illicit recreational drugs, patient's verbalized understanding that the lack of compliance will result in failure to renew narcotic prescription and possible discharge from the clinic - diagnoses, prognosis, and treatment options including but not limited to physical therapy, surgical interventions, interventional therapies , and medication management including narcotics and adjuvant medication were discussed with the patient and all the questions answered Prescript refill for, Alligator 7.5/325 dispense 120 with one refill, Prescription for Zanaflex 4 mg every 8 hours dispense 90, MAPS reviewed and is appropriate. - PQRS measures = - Patient's medications are documented in the chart. -Tobacco use is negative and counseling.Given. -Patient's has not received pneumococcal vaccine. -Advanced care planning discussed, patient not eligible. -Opiate contract signed. -Pain positive and follow-up visit/procedure is scheduled. -Patient's blood pressure measured [ 134/91 ] , and documented in the record ,and patient will follow up with the primary care. -Patient's weight was measured and body mass index [ 27.6 ] above the normal limits and counseling was done. and patient instructed to follow-up with the primary care physician. -Patient was not identified as an unhealthy alcohol user Time with Patient: Less than 30
== END | disposition home or self-care (01) ==
LOC: PNWHC3 07:41
PROVIDERS: ATTEND Specialist
DX: M51.36 Other intervertebral disc degeneration, lumbar region (principal); M47.816 Spondylosis without myelopathy or radiculopathy, lumbar region; M51.24 Other intervertebral disc displacement, thoracic region; G89.29 Other chronic pain; M79.18 Myalgia, other site; G24.3 Spasmodic torticollis; Z79.891 Long term (current) use of opiate analgesic
CPT/HCPCS: 99211

== ENCOUNTER 2020-06-13 11:04 | Emergency (ER) | payer MEDICARE, OTHER ==
[2020-06-13 11:21] VITALS: RESP 18; TEMP 99.1
[2020-06-13] MEDS ORDERED: SODIUM CHLORIDE 0.9% 1,000 ML IV STA (12:05)
[2020-06-13] MEDS ORDERED: diphenhydrAMINE 50 MG/ML 1 ML VIAL IVP STA (12:05)
[2020-06-13] MEDS ORDERED: METOCLOPRAMIDE 5 MG/ML 2 ML VIAL IVP STA (12:06)
--- NOTE | 2020-06-13 12:13 | ED ---
General Adult HPI - General Chief complaint: Headache Stated complaint: Headache/Swelling Time Seen by Provider: 06/13/20 11:48 Source: patient, RN notes reviewed Mode of arrival: wheelchair Limitations: no limitations - History of Present Illness Initial comments: Patient's a 39-year-old female significant past medical history for migraines, presenting to the emergency room today with chief complaint of headache that began approximately 2 hours ago. Patient states that she was sitting watching some TV falling laundry when she started to feel some pain in the right side posterior aspect of the scalp with pain radiating forward. She says it as sharp pain currently rates as 6/10. Patient does admit that she has had some blurry vision as well. She states there is some sensitivity to light. She states this is different from migraines that she's had in the past. Patient denies any other associated symptoms or complaints. Patient denies any recent fever, chills, shortness of breath, chest pain, back pain, abdominal pain, nausea or vomiting, or any other complaints. - Related Data Home Medications Medication Instructions Recorded Confirmed Medroxyprogesterone Acetate 150 mg IM Q84D 07/10/18 06/13/20 [Depo-Provera] Omalizumab [Xolair] 150 mg SQ Q28D 07/10/18 06/13/20 Cholecalciferol [Vitamin D3 (25 2,000 unit PO DAILY@0700 08/10/18 06/13/20 Mcg = 1000 Iu)] Levothyroxine Sodium [Synthroid] 137 mcg PO SUTUWETHFR 06/22/19 06/13/20 Botox Injecctions 300 mg INJ Q70D 07/09/19 06/13/20 traZODone HCL 100 mg PO HS@199907/09/19 06/13/20 PARoxetine [Paxil] 20 mg PO HS@199912/18/19 06/13/20 Albuterol Nebulized [Ventolin 2.5 mg INHALATION RT-Q6H PRN 06/13/20 06/13/20 Nebulized] Fluticasone Propionate [Flovent 1 puff INHALATION RT-DAILY 06/13/20 06/13/20 Hfa 220 mcg] Loratadine [Claritin] 10 mg PO DAILY@0700 06/13/20 06/13/20 SUMAtriptan SUCCINATE [Imitrex] 100 mg PO DAILY PRN 06/13/20 06/13/20 tiZANidine [Zanaflex] 4 mg PO Q8HR PRN 06/13/20 06/13/20 Previous Rx's Medication Instructions Recorded HYDROcodone/APAP 7.5-325MG [[place] 1 tab PO Q6H PRN 23 Days #92 tab 02/04/20 7.5-325] Allergies Allergy/AdvReac Type Severity Reaction Status Date / Time No Known Allergies Allergy Verified 06/13/20 12:38 Review of Systems ROS Statement: Those systems with pertinent positive or pertinent negative responses have been documented in the HPI. ROS Other: All systems not noted in ROS Statement are negative. Past Medical History Past Medical History: Asthma Additional Past Medical History / Comment(s): TACHYCARDIA, peptic ulcers, anemia."HAS BEEN ON VENTILATOR IN PAST D/T SEVERE ASTHMA ATTACK," BULEMIA-STATES GETTING BETTER, CONSTIPATION. HERNIATED DISC, cervical cancer. 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 recent antibiotoc for infection in arm-now resolved per pt History of Any Multi-Drug Resistant Organisms: MRSA Date of last positivie culture/infection: 08/25/14 MDRO Source:: rt Groin Past Surgical History: Bariatric Surgery, Cholecystectomy, Joint Replacement, Orthopedic Surgery, Tonsillectomy Additional Past Surgical History / Comment(s): Tilt table test, lap band 2007; NASAL FX REPAIR , ORIF LT ELBOW X2, PAIN PROCEDURES for migraines. Surgery on her cervix for cancer, rt foot surgery(Fx), cysto/lithotripsy , left hip replacement 12/2018, lumbar puncture, cervical biopsy in August @[facility], bone tumor removal Past Anesthesia/Blood Transfusion Reactions: Postoperative Nausea & Vomiting (PONV) Past Psychological History: Anxiety, Depression Smoking Status: Never smoker Past Alcohol Use History: None Reported Past Drug Use History: None Reported - Past Family History Mother Family Medical History: Pneumonia Additional Family Medical History / Comment(s): Mother of pneumonia. Patient's son of brain cancer, last mother and father both liver cancer Son(s) Family Medical History: Cancer Additional Family Medical History / Comment(s): Son of brain cancer. Father Family Medical History: Cancer Additional Family Medical History / Comment(s): liver General Exam - General Exam Comments Initial Comments: General: The patient is awake and alert, in no distress, and does not appear acutely ill. Eye: Pupils are equal, round and reactive to light, extra-ocular movements are intact. No nystagmus. There is normal conjunctiva bilaterally. No signs of icterus. Ears, nose, mouth and throat: There are moist mucous membranes and no oral lesions. Neck: The neck is supple, there is no tenderness or JVD. Cardiovascular: There is a regular rate and rhythm. No murmur, rub or gallop is appreciated. Respiratory: Lungs are clear to auscultation, respirations are non-labored, breath sounds are equal. No wheezes, stridor, rales, or rhonchi. Musculoskeletal: Normal ROM, no tenderness. Strength 5/5. Sensation intact. Neurological: A&O x 3. CN II-XII intact, There are no obvious motor or sensory deficits. Coordination appears grossly intact. Speech is normal. Skin: Skin is warm and dry and no rashes or lesions are noted. Psychiatric: Cooperative, appropriate mood & affect, normal judgment. Limitations: no limitations Course Vital Signs 06/13/20 11:17 Temperature 99.1 F Pulse Rate 105 H Respiratory 18 Rate Blood Pressure 155/97 O2 Sat by Pulse 100 Oximetry Medical Decision Making - Medical Decision Making CT/CTA of the brain is been reviewed is unremarkable. The patient is feeling better after Reglan, Benadryl, IV fluids here in emergency room. She does have history of migraines but did admit that this felt somewhat different. She did have some photosensitivity. At this time patient is doing well will be discharged home to follow-up with her neurologist. Advised return if any symptoms increase worsen. She states understanding and is in agreement. - Lab Data Result diagrams: 06/13/20 12:15 06/13/20 12:15 Lab Results 06/13/20 06/13/20 Range/Units 12:15 12:15 WBC 5.6 (3.8-10.6) k/uL RBC 4.16 (3.80-5.40) m/uL Hgb 14.0 (11.4-16.0) gm/dL Hct 39.1 (34.0-46.0) % MCV 94.0 (80.0-100.0) fL MCH 33.7 (25.0-35.0) pg MCHC 35.8 (31.0-37.0) g/dL RDW 12.1 (11.5-15.5) % Plt Count 223 (150-450) k/uL MPV 6.5 Neutrophils % 70 % Lymphocytes % 23 % Monocytes % 4 % Eosinophils % 2 % Basophils % 1 % Neutrophils # 3.9 (1.3-7.7) k/uL Lymphocytes # 1.3 (1.0-4.8) k/uL Monocytes # 0.2 (0-1.0) k/uL Eosinophils # 0.1 (0-0.7) k/uL Basophils # 0.0 (0-0.2) k/uL Sodium 138 (137-145) mmol/L Potassium 4.1 (3.5-5.1) mmol/L Chloride 107 (98-107) mmol/L Carbon Dioxide 25 (22-30) mmol/L Anion Gap 6 mmol/L BUN 13 (7-17) mg/dL Creatinine 1.03 (0.52-1.04) mg/dL Est GFR (CKD-EPI)AfAm 79 (>60 ml/min/1.73 sqM) Est GFR (CKD-EPI)NonAf 69 (>60 ml/min/1.73 sqM) Glucose 84 (74-99) mg/dL Calcium 9.1 (8.4-10.2) mg/dL Disposition Clinical Impression: Acute headache Disposition: HOME SELF-CARE Condition: Good Instructions (If sedation given, give patient instructions): Acute Headache (ED) Additional Instructions: Please use medication as discussed. Please follow-up with family doctor/neurologist in the next 2 days of symptoms have not improved. Please return to emergency room if the symptoms increase or worsen or for any other concerns. Is patient prescribed a controlled substance at d/c from ED?: No Referrals: Slade Gonzalez MD [Primary Care Provider] - 1-2 days Time of Disposition: 14:31
[2020-06-13 12:32] LABS: Basophils % (A) 1 %; Eosinophils # (A) 0.1 k/uL (0-0.7); Eosinophils % (A) 2 %; HCT 39.1 % (34.0-46.0); Lymphocytes # (A) 1.3 k/uL (1.0-4.8); Lymphocytes % (A) 23 %; MCH 33.7 pg (25.0-35.0); MCHC 35.8 g/dL (31.0-37.0); Mean Platelet Volume 6.5; Monocytes # (A) 0.2 k/uL (0-1.0); Monocytes % (A) 4 %; Neutrophils # (A) 3.9 k/uL (1.3-7.7); Neutrophils % (A) 70 %; Platelet Count 223 k/uL (150-450); RBC 4.16 m/uL (3.80-5.40); RDW 12.1 % (11.5-15.5); WBC 5.6 k/uL (3.8-10.6)
[2020-06-13 12:50] LABS: Calcium 9.1 mg/dL (8.4-10.2)
[2020-06-13 12:52] LABS: Potassium 4.1 mmol/L (3.5-5.1)
--- NOTE | 2020-06-13 12:55 | CT ---
EXAMINATION TYPE: CT brain wo con DATE OF EXAM: 06/13/2020 COMPARISON: CT brain June 30, 2019 HISTORY: Headache with right posterior swelling and dizziness. No known injury CT DLP: 1099.6 mGycm. Automated Exposure Control for Dose Reduction was Utilized. TECHNIQUE: CT scan of the head is performed without contrast. FINDINGS: There is no acute intracranial hemorrhage, mass effect, or midline shift identified. The ventricles and sulci are within normal limits in size. Clement-white matter differentiation is maintai jesus. The globes are intact and the visualized sinuses are clear. The calvarium is intact. IMPRESSION: No acute intracranial hemorrhage or midline shift is seen. No significant change from pr ior.
--- NOTE | 2020-06-13 14:22 | CT ---
EXAMINATION TYPE: CT angio head DATE OF EXAM: 06/13/2020 2:12 PM COMPARISON: CTA [place] June 30, 2019 HISTORY: Headache with right posterior swelling and dizziness. No known injury. CT DLP: 682.6 mGycm Automated exposure control for dose reduction was used. TECHNIQUE: Performed with IV Contrast, patient injected with 100 mL of Isovue 370. 3D reconstructed images are created on an independent workstation and reviewed.. FINDINGS: Slightly larger dominant left vertebral artery redemonstrated. Vertebral arteries are patent to basil ar junction. Hypoplastic bilateral posterior communicating arteries redemonstrated. No significant fo wen stenosis or aneurysmal change in the posterior circulation. Images of the anterior circulation sh ow hypoplastic anterior communicating artery. No significant focal stenosis or aneurysmal change. IMPRESSION: No significant focal stenosis or aneurysm at the level of the [place]. No signif icant change from prior.
[2020-06-13 14:56] VITALS: BP 132/86; PULSE 86
== END 2020-06-13 14:55 | disposition home or self-care (01) ==
LOC: EC 11:04
DX: R51.9 Headache, unspecified (principal); J45.909 Unspecified asthma, uncomplicated; F41.9 Anxiety disorder, unspecified; F32.9 Major depressive disorder, single episode, unspecified; Z79.890 Hormone replacement therapy; Z79.899 Other long term (current) drug therapy; Z79.51 Long term (current) use of inhaled steroids; Z98.84 Bariatric surgery status; Z85.41 Personal history of malignant neoplasm of cervix uteri
CPT/HCPCS: 99284 ×2; 96374 ×2; 96375 ×2; 96361 ×4; 36415; 80048; 85025; 70496; 70450; J1200; J2765; Q9967

== ENCOUNTER → 2020-06-29 | Outpatient (CLI) | payer MEDICARE, OTHER ==
[2020-06-29 08:08] VITALS: RESP 18
[2020-06-29 08:28] VITALS: BP 137/86; PULSE 97; TEMP 98
--- NOTE | 2020-06-29 11:46 | P.PN ---
Subjective Progress Note Date: 06/29/20 This is a follow-up visit for this 39-year-old female. She has been diagnosed with occipital neuralgia, also patient had cervical dystonia ,Today, her pain is primarily located in the bilateral neck, radiating to lateral head, left greater than right side. This is associated with left hand spasms. She also continues to have hip pain following hip replacement. She is continuing to get Botox injections with her neurologist. Pain is rated as 7/10 today,the pain is constant, throbbing, aching, sharp. Pain is worse with upright position, sitting, worse of the day progresses and better with laying down, medications. She continues to use Zanaflex 4 mg when necessary and [place] 7.5/625 every 6 hour s when necessary. These medications are helping control her pain, she has mild side effects in the form of dry mouth from Zanaflex. Review of systems is negative for new onset weakness, numbness/tingling, abdominal pain, malaise, fever, night sweats, chills, homicidal or suicidal ideation, or bowel or bladder incontinence. Objective - Vital Signs Vital signs: Vital Signs Temp 98.0 F 06/29/20 08:05 Pulse 97 06/29/20 08:05 Resp 18 06/29/20 08:05 BP 137/86 06/29/20 08:05 Pulse Ox 98 06/29/20 08:05 - Exam 1-Constitutional : Cooperative , not in acute distress . 2-HEENT : nech ; supple , no Lymphadenopathy , no Thyromegaly , normal thyroid size . eyes : no ptosis , no icterus, no photophobia . ENT : normal of hearing , normal oropharynx . . 3- Musculoskeltal : exams of the cervical spine = motor strength normal bilateral upper extremities facet loading test cervical area positive. Multiple trigger points in the cervical paravertebral muscles rhomboid and trapezius muscles examined more than the left side Assessment and Plan Plan: Assessment and plan = Chronic low back pain secondary to lumbar degenerative disc disease , lumbar spondylosis with facet arthropathy without myelopathy Upper back pain secondary to myofascial pain syndrome and cervical area. And cervical dystonia Midback pain secondary to thoracic herniated disc disease Severe muscle spasm with undetermined etiology chronic and current use of high-risk medication (Opioids). The patient was counseled about risk of opioid use, psychological risk associated with opioids and was orally counseled to not overuse , divert,or sell dictations to take medications as prescribed only , and to restore medication in safe location , the patient counseled against driving while using narcotic medications, and also not to use alcohol or any illicit recreational drugs, patient's verbalized understanding that the lack of compliance will result in failure to renew narcotic prescription and possible discharge from the clinic - diagnoses, prognosis, and treatment options including but not limited to physical therapy, surgical interventions, interventional therapies , and medication management including narcotics and adjuvant medication were discussed with the patient and all the questions answered Prescript refill for, [place] 7.5/325 dispense 120 with one refill, Prescription for Zanaflex 4 mg every 8 hours dispense 90, MAPS reviewed and is appropriate. - PQRS measures = - Patient's medications are documented in the chart. -Tobacco use is negative and counseling.Given. -Patient's has not received pneumococcal vaccine. -Advanced care planning discussed, patient not eligible. -Opiate contract signed. -Pain positive and follow-up visit/procedure is scheduled. -Patient's blood pressure measured [ 137/86 ] , and documented in the record ,and patient will follow up with the primary care. -Patient's weight was measured and body mass index [ 28 ] above the normal limits and counseling was done. and patient instructed to follow-up with the primary care physician. -Patient was not identified as an unhealthy alcohol user Time with Patient: Less than 30
== END | disposition home or self-care (01) ==
LOC: PNWHC3 07:38
PROVIDERS: ATTEND Specialist
DX: M51.36 Other intervertebral disc degeneration, lumbar region (principal); M47.816 Spondylosis without myelopathy or radiculopathy, lumbar region; M79.18 Myalgia, other site
CPT/HCPCS: 80307; G0482; G0463; 99212

== ENCOUNTER 2020-08-19 09:07 | Emergency (ER) | payer MEDICARE, OTHER ==
[2020-08-19] MEDS ORDERED: methylPREDNISolone SOD SUCCI 125 MG/2 ML VIAL IV STA (09:46)
[2020-08-19] MEDS ORDERED: ALBUTEROL HFA INHALER INHALATION STA (09:46)
[2020-08-19] MEDS ORDERED: MAGNESIUM SULFATE-D5W PMX 1 GM in DEXTROSE/WATER 1 100ML.BAG IVPB STA (09:46)
[2020-08-19] MEDS ORDERED: SODIUM CHLORIDE 0.9% 1,000 ML IV ONE (09:46)
--- NOTE | 2020-08-19 09:46 | ED ---
SOB HPI - General Chief Complaint: Shortness of Breath Stated Complaint: SIRISHA, Asthma,Dizziness Source: patient Mode of arrival: wheelchair Limitations: no limitations - History of Present Illness Initial Comments: 39-year-old female with past history of asthma who presents to the emergency department with reported nonproductive cough and shortness of breath. Patient also reports to diarrhea, low-grade fever and possible exposure Covid. States that she has been short of breath for the past one day. She has been using her nebulizer at home without improvement in her symptoms. Reports to a significant history of asthma. Previously intubated in 2004 for work of breathing. She follows with Dr. Jalloh. Uses her inhaler daily and has been hospitalized multiple times for asthma. She also reports to a history of "a neurologic condition" and states that she will get worsening muscle spasms in her neck when she is sick. Reports to diffuse body aches. Denies vomiting. No chest pain. Denies fevers or chills. No chronic steroid use. No recent antibiotic use. No other alleviating, precipitating often factors - Related Data Home Medications Medication Instructions Recorded Confirmed Medroxyprogesterone Acetate 150 mg IM Q84D 07/10/18 06/29/20 [Depo-Provera] Omalizumab [Xolair] 150 mg SQ Q28D 07/10/18 06/29/20 Cholecalciferol [Vitamin D3 (25 2,000 unit PO DAILY@0700 08/10/18 06/29/20 Mcg = 1000 Iu)] Levothyroxine Sodium [Synthroid] 137 mcg PO SUTUWETHFR 06/22/19 06/29/20 Botox Injecctions 300 mg INJ Q70D 07/09/19 06/29/20 traZODone HCL 100 mg PO HS@199907/09/19 06/29/20 PARoxetine [Paxil] 20 mg PO HS@199912/18/19 06/29/20 Albuterol Nebulized [Ventolin 2.5 mg INHALATION RT-Q6H PRN 06/13/20 06/29/20 Nebulized] Fluticasone Propionate [Flovent 1 puff INHALATION RT-DAILY 06/13/20 06/29/20 Hfa 220 mcg] Loratadine [Claritin] 10 mg PO DAILY@0700 06/13/20 06/29/20 SUMAtriptan SUCCINATE [Imitrex] 100 mg PO DAILY PRN 06/13/20 06/29/20 Previous Rx's Medication Instructions Recorded HYDROcodone/APAP 7.5-325MG [Laurier 1 tab PO Q6H PRN 30 Days #120 tab 06/29/20 7.5-325] HYDROcodone/APAP 7.5-325MG [Laurier 1 tab PO Q6H PRN 30 Days #120 tab 06/29/20 7.5-325] tiZANidine [Zanaflex] 4 mg PO Q8HR PRN #90 tab 06/29/20 Doxycycline Monohydrate [Monodox] 100 mg PO Q12HR #20 cap 08/19/20 predniSONE [Deltasone] 20 mg PO BID #10 tab 08/19/20 Allergies Allergy/AdvReac Type Severity Reaction Status Date / Time No Known Allergies Allergy Verified 06/22/20 14:50 Review of Systems ROS Statement: Those systems with pertinent positive or pertinent negative responses have been documented in the HPI. ROS Other: All systems not noted in ROS Statement are negative. Past Medical History Past Medical History: Asthma Additional Past Medical History / Comment(s): TACHYCARDIA, peptic ulcers, anemia."HAS BEEN ON VENTILATOR IN PAST D/T SEVERE ASTHMA ATTACK," BULEMIA-STATES GETTING BETTER, CONSTIPATION. HERNIATED DISC, cervical cancer. 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 recent antibiotoc for infection in arm-now resolved per pt History of Any Multi-Drug Resistant Organisms: MRSA Date of last positivie culture/infection: 08/25/14 MDRO Source:: rt Groin Past Surgical History: Bariatric Surgery, Cholecystectomy, Joint Replacement, Orthopedic Surgery, Tonsillectomy Additional Past Surgical History / Comment(s): Tilt table test, lap band 2007; NASAL FX REPAIR , ORIF LT ELBOW X2, PAIN PROCEDURES for migraines. Surgery on her cervix for cancer, rt foot surgery(Fx), cysto/lithotripsy , left hip rep lacement 12/2018, lumbar puncture, cervical biopsy in August @[facility], bone tumor removal Past Anesthesia/Blood Transfusion Reactions: Postoperative Nausea & Vomiting (PONV) Past Psychological History: Anxiety, Depression Smoking Status: Never smoker Past Alcohol Use History: None Reported Past Drug Use History: None Reported - Past Family History Mother Family Medical History: Pneumonia Additional Family Medical History / Comment(s): Mother of pneumonia. Patient's son of brain cancer, last mother and father both liver cancer Son(s) Family Medical History: Cancer Additional Family Medical History / Comment(s): Son of brain cancer. Father Family Medical History: Cancer Additional Family Medical History / Comment(s): Liver Cancer. General Exam Limitations: no limitations Course Vital Signs 08/19/20 08/19/20 08/19/20 09:10 11:25 13:06 Temperature 98.4 F 98.7 F Pulse Rate 108 H 108 H 85 Respiratory 22 18 18 Rate Blood Pressure 151/100 135/81 144/80 O2 Sat by Pulse 100 99 99 Oximetry Medical Decision Making - Medical Decision Making Upon arrival patient is placed into room 4. A thorough history and physical exam is performed. IV is established and the patient was given a liter bolus of normal saline. She was also given 125 of Solu-Medrol, 1 g of magnesium, 4 mg of Zofran and 2 puffs of an albuterol inhaler. Laboratory studies are conducted which are reviewed. Patient white count elevated at 16.9. Coronavirus not detected. Patient sent for chest x-ray which demonstrates no acute process. The patient is reevaluated and reports to much improvement in her symptoms. At this time the patient be discharged home on doxycycline due to her elevated white blood cell count and a course of steroids. Patient is to call and speak with Dr. Jalloh in regards to her symptoms. Return to the emergency room for any new or worsening symptoms per patient agreed to this and she was discharged home in stable condition - Lab Data Result diagrams: 08/19/20 10:27 08/19/20 10:27 Lab Results 08/19/20 08/19/20 08/19/20 Range/Units 10:27 10: 10: WBC 16.9 H (3.8-10.6) k/uL RBC 4.16 (3.80-5.40) m/uL Hgb 13.8 (11.4-16.0) gm/dL Hct 39.8 (34.0-46.0) % MCV 95.6 (80.0-100.0) fL MCH 33.2 (25.0-35.0) pg MCHC 34.8 (31.0-37.0) g/dL RDW 12.1 (11.5-15.5) % Plt Count 198 (150-450) k/uL MPV 6.6 Neutrophils % 92 % Lymphocytes % 5 % Monocytes % 2 % Eosinophils % 1 % Basophils % 0 % Neutrophils # 15.5 H (1.3-7.7) k/uL Lymphocytes # 0.9 L (1.0-4.8) k/uL Monocytes # 0.4 (0-1.0) k/uL Eosinophils # 0.1 (0-0.7) k/uL Basophils # 0.0 (0-0.2) k/uL D-Dimer 0.19 (<0.60) mg/L FEU Sodium 137 (137-145) mmol/L Potassium 4.4 (3.5-5.1) mmol/L Chloride 105 (98-107) mmol/L Carbon Dioxide 24 (22-30) mmol/L Anion Gap 8 mmol/L BUN 13 (7-17) mg/dL Creatinine 1.05 H (0.52-1.04) mg/dL Est GFR (CKD-EPI)AfAm 77 (>60 ml/min/1.73 sqM) Est GFR (CKD-EPI)NonAf 67 (>60 ml/min/1.73 sqM) Glucose 87 (74-99) mg/dL Plasma Lactic Acid Yordan (0.7-2.0) mmol/L Calcium 9.5 (8.4-10.2) mg/dL Magnesium 1.9 (1.6-2.3) mg/dL Total Bilirubin 1.1 (0.2-1.3) mg/dL AST 30 (14-36) U/L ALT 15 (4-34) U/L Alkaline Phosphatase 55 (38-126) U/L Total Protein 7.5 (6.3-8.2) g/dL Albumin 4.8 (3.5-5.0) g/dL Urine HCG, Qual (Not Detectd) Coronavirus (PCR) (Not Detectd) 08/19/20 08/19/20 08/19/20 Range/Units 10:27 10:57 11:30 WBC (3.8-10.6) k/uL RBC (3.80-5.40) m/uL Hgb (11.4-16.0) gm/dL Hct (34.0-46.0) % MCV (80.0-100.0) fL MCH (25.0-35.0) pg MCHC (31.0-37.0) g/dL RDW (11.5-15.5) % Plt Count (150-450) k/uL MPV Neutrophils % % Lymphocytes % % Monocytes % % Eosinophils % % Basophils % % Neutrophils # (1.3-7.7) k/uL Lymphocytes # (1.0-4.8) k/uL Monocytes # (0-1.0) k/uL Eosinophils # (0-0.7) k/uL Basophils # (0-0.2) k/uL D-Dimer (<0.60) mg/L FEU Sodium (137-145) mmol/L Potassium (3.5-5.1) mmol/L Chloride (98-107) mmol/L Carbon Dioxide (22-30) mmol/L Anion Gap mmol/L BUN (7-17) mg/dL Creatinine (0.52-1.04) mg/dL Est GFR (CKD-EPI)AfAm (>60 ml/min/1.73 sqM) Est GFR (CKD-EPI)NonAf (>60 ml/min/1.73 sqM) Glucose (74-99) mg/dL Plasma Lactic Acid Yordan 1.1 (0.7-2.0) mmol/L Calcium (8.4-10.2) mg/dL Magnesium (1.6-2.3) mg/dL Total Bilirubin (0.2-1.3) mg/dL AST (14-36) U/L ALT (4-34) U/L Alkaline Phosphatase (38-126) U/L Total Protein (6.3-8.2) g/dL Albumin (3.5-5.0) g/dL Urine HCG, Qual Not Detected (Not Detectd) Coronavirus (PCR) Not Detected (Not Detectd) - EKG Data EKG Comments: EKG demonstrates normal sinus rhythm with a ventricular rate of 95. TN interval 134. QRS 74. QTC of 505. Inverted T-wave in V1 through V3. No acute ST segment elevations Disposition Clinical Impression: Asthma, Cough, Bronchitis, Leukocytosis Disposition: HOME SELF-CARE Condition: Stable Instructions (If sedation given, give patient instructions): Asthma (ED) Additional Instructions: Please follow-up with your primary care doctor and Dr. Jalloh in 2-4 days. Return to the emergency room for any new worsening symptoms Prescriptions: predniSONE [Deltasone] 20 mg PO BID #10 tab Doxycycline Monohydrate [Monodox] 100 mg PO Q12HR #20 cap Is patient prescribed a controlled substance at d/c from ED?: No Referrals: Slade Gonzalez MD [Primary Care Provider] - 1-2 days Time of Disposition: 12:47
[2020-08-19] MEDS ORDERED: ONDANSETRON 4 MG/2 ML VIAL IVP STA (09:48)
[2020-08-19 11:22] LABS: Albumin 4.8 g/dL (3.5-5.0); Calcium 9.5 mg/dL (8.4-10.2); Magnesium 1.9 mg/dL (1.6-2.3); Total Bilirubin 1.1 mg/dL (0.2-1.3); Total Protein 7.5 g/dL (6.3-8.2)
[2020-08-19 11:26] LABS: Potassium 4.4 mmol/L (3.5-5.1)
[2020-08-19 11:27] LABS: Basophils % (A) 0 %; Eosinophils # (A) 0.1 k/uL (0-0.7); Eosinophils % (A) 1 %; HCT 39.8 % (34.0-46.0); HGB 13.8 gm/dL (11.4-16.0); Lymphocytes # (A) 0.9 k/uL (1.0-4.8); Lymphocytes % (A) 5 %; MCH 33.2 pg (25.0-35.0); MCHC 34.8 g/dL (31.0-37.0); MCV 95.6 fL (80.0-100.0); Mean Platelet Volume 6.6; Monocytes # (A) 0.4 k/uL (0-1.0); Monocytes % (A) 2 %; Neutrophils # (A) 15.5 k/uL (1.3-7.7); Neutrophils % (A) 92 %; Platelet Count 198 k/uL (150-450); RBC 4.16 m/uL (3.80-5.40); RDW 12.1 % (11.5-15.5); WBC 16.9 k/uL (3.8-10.6)
[2020-08-19 11:30] VITALS: RESP 18
--- NOTE | 2020-08-19 11:55 | XR ---
EXAMINATION TYPE: XR chest 2V DATE OF EXAM: 08/19/2020 COMPARISON: 04/13/2020 TECHNIQUE: PA and lateral views submitted. HISTORY: Shortness of breath FINDINGS: The lungs are clear and there is no pneumothorax, pleural effusion, or focal pneumonia. Heart size normal. There is a lap band. Surgical clips in the right upper quadrant. No overt failure. Biapical p leural thickening. Hypertrophic and degenerative changes of the spine. IMPRESSION: 1. No acute process.
[2020-08-19] MEDS ORDERED: DOXYCYCLINE 100 MG CAP PO STA (12:42)
[2020-08-19 13:07] VITALS: BP 144/80; PULSE 85; TEMP 98.7
== END 2020-08-19 13:09 | disposition home or self-care (01) ==
LOC: EC 09:07
DX: J45.909 Unspecified asthma, uncomplicated (principal); D72.829 Elevated white blood cell count, unspecified; Z20.822 Contact with and (suspected) exposure to COVID-19; F41.9 Anxiety disorder, unspecified; F32.9 Major depressive disorder, single episode, unspecified
CPT/HCPCS: 99285; 96365; 96375; 36415; 94640; 93005; 85379; 80053; 83605; 83735; 85025; 81025; 87635; 71046; J2930; J2405; J3475

== ENCOUNTER → 2020-08-24 | Outpatient (CLI) | payer MEDICARE, OTHER ==
[2020-08-24 08:15] VITALS: BP 168/105; PULSE 101; RESP 16; TEMP 98.2
--- NOTE | 2020-08-24 08:55 | P.PN ---
Subjective Progress Note Date: 08/24/20 Bijan is a 39-year-old female presents today for follow-up. She continues to have multiple complaints of overall not feeling well. She reports she was recently in the emergency room because of dehydration. She reports she felt dehydrated. She reports she has a lack of appetite is unable to drink or eat very well. She this forces herself to eat. She was discharged home on antibiotics and steroids for her asthma. They also told her that her white count was elevated to 16,000. He cannot find a source for the infection. She also continues to complain of chronic pain in her neck which is related to her cervical dystonia and cervical spondylosis. She also reports low back pain. She reports lower extremity weakness which is chronic in nature. She continues to follow up with a neurologist. She reports she sees a neurologist regularly for Botox injections in the cervical spine. 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 Also worried because she reports her son had a brain tumor which was missed and unfortunately from that which I believe has hindered her overall health and her well-being. She continues to use medications as prescribed. She denies any side effects on Lefors or tizanidine. She finds that the tizanidine does make her sleepy social use them in the afternoon and nighttime. Denies any chest pain, shortness of breath, new onset weakness outside of the history of presenting illness above Objective - Vital Signs Vital signs: Vital Signs Temp 98.2 F 08/24/20 08:08 Pulse 101 H 08/24/20 08:08 Resp 16 08/24/20 08:08 BP 168/105 08/24/20 08:08 Pulse Ox 99 08/24/20 08:08 - Exam General: Awake and alert oriented 3 no distress Respiratory exam: No audible wheezing no accessory muscle usage Cardiovascular exam: regular rate, palpable bilateral pulses, no lower extremity edema Cervical spine: Alignment appears midline, Spurling's negative, Gould's is negative. There is limited range of motion with right and left lateral sidebending Lumbar spine: There is slight loss of lordosis, midline alignment. Lower extremity strength is decreased, right lower extremity strength is 4-5 in the quadriceps and hamstring, left lower extension restriction 3 or 5 on the left hamstring and quadriceps. Anterior tibialis strength is 4-5 bilaterally. Sacroiliac joints: Nontender to palpation, YOON is negative, Gaenselon negative, hip movement is normal with internal/external rotation bilaterally. Neuro exam: Normal sensation in bilateral upper extremities, deep tendon reflexes are 2+ bilateral upper extremities. Normal sensation in bilateral lower extremities. Deep tendon reflexes are 2+ in lower extremities Psych exam: Cooperative, appropriate mood Assessment and Plan Assessment: #1 cervical spondylosis without myelopathy #2 lumbar spondylosis without myelopathy #3 cervical dystonia #4 anxiety #5 Depression Plan: I spent extensive time with the patient and review of her records. Medications seem to be offering good relief. There is no signs of any misuse or diversion. I have directed her to her neurologist for further evaluation, none of these issues or new and I believe she has had extensive workup regarding these issues. I do also believe that some of these issues are related to her experiences with her son and likely due to her own anxiety regarding medical problems. Unfort unately his pain medications offer her some benefit and are unlikely to offer long-term relief but in the meantime do offer some benefit so we'll continue those medications. We will prescribe these medications for 2 months time. I discussed with the patient that these medications need to be used as prescribed as misuse of medication can cause significant dysfunction and possibly . I have spent 35 minutes on patient care today. The time was used to review the medical records including relevant urine studies and Prescription history (MAPs), review of the available imaging, evaluation and examination of the patient, coordination of care with the medical staff and if applicable referring physicians, as well as creation of the medical record. Maps were checked and appropriate, opioid start talking form is on file and updated, urine drug screens of been appropriate and have been reviewed.
== END ==
LOC: PNWHC3 07:52
PROVIDERS: ATTEND Hospitalist
DX: M47.812 Spondylosis without myelopathy or radiculopathy, cervical region (principal); M47.816 Spondylosis without myelopathy or radiculopathy, lumbar region; G24.3 Spasmodic torticollis; F32.9 Major depressive disorder, single episode, unspecified
CPT/HCPCS: 99211

== ENCOUNTER 2020-08-30 10:10 | Emergency (ER) | payer MEDICARE, OTHER ==
[2020-08-30 10:20] VITALS: RESP 18
[2020-08-30] MEDS ORDERED: SODIUM CHLORIDE 0.9% 1,000 ML IV STA (10:39)
--- NOTE | 2020-08-30 10:44 | ED ---
Weakness HPI - General Chief complaint: Weakness Stated complaint: weakness Time Seen by Provider: 08/30/20 10:26 Source: patient, EMS, RN notes reviewed Mode of arrival: EMS Limitations: no limitations - History of Present Illness Initial comments: Patient is a 39-year-old female that presents to the emergency department complaining of generalized weakness. He notes that she was in approximately a week week and a half ago for asthma symptoms. She was discharged home after getting a steroid shot a take-home steroid prescription, inhaler, antibiotics for elevated white count. Today she presents stating that she has not gotten any better and has progressively felt worse. She notes that she is having general joint pain with no consistent joint of the day it kind of bounces around per her. She notes that over the last several days he has had increased shortness of breath, but she does have a history of severe asthma where she was intubated back in 2004. She also reported feeling lightheadedness but also reported that she has been able to really drink any water or keep anything down due to not wanting to drink. 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 She wanted to come in to make sure everything was okay and that her white count was coming down because she is afraid to fall and/or not wake up with her 2 kids at home. She denied any nausea vomiting diarrhea constipation fever fatigue chills chest pain. - Related Data Home Medications Medication Instructions Recorded Confirmed Medroxyprogesterone Acetate 150 mg IM Q84D 07/10/18 08/30/20 [Depo-Provera] Omalizumab [Xolair] 150 mg SQ QMONTHLY 07/10/18 08/30/20 Levothyroxine Sodium [Synthroid] 137 mcg PO SUTUWETHFR 06/22/19 08/30/20 traZODone HCL 100 mg PO HS@199907/09/19 08/30/20 PARoxetine [Paxil] 20 mg PO HS@199912/18/19 08/30/20 Albuterol Nebulized [Ventolin 2.5 mg INHALATION RT-Q6H PRN 06/13/20 08/30/20 Nebulized] Fluticasone Propionate [Flovent 1 puff INHALATION RT-DAILY 06/13/20 08/30/20 Hfa 220 mcg] Loratadine [Claritin] 10 mg PO DAILY@0700 06/13/20 08/30/20 SUMAtriptan SUCCINATE [Imitrex] 100 mg PO DAILY PRN 06/13/20 08/30/20 Botox Neck Injection 300 mg SQ Q70D 08/30/20 08/30/20 Cholecalciferol [Vitamin D3 (25 50 mcg PO DAILY@0700 08/30/20 08/30/20 Mcg = 1000 Iu)] Previous Rx's Medication Instructions Recorded Doxycycline Monohydrate [Monodox] 100 mg PO Q12HR #20 cap 08/19/20 HYDROcodone/APAP 7.5-325MG [[place] 1 tab PO QID PRN 30 Days #120 tab 08/24/20 7.5-325] tiZANidine [Zanaflex] 4 mg PO Q8HR PRN #90 tab 08/24/20 Allergies Allergy/AdvReac Type Severity Reaction Status Date / Time No Known Allergies Allergy Verified 08/22/20 10:13 Review of Systems ROS Statement: Those systems with pertinent positive or pertinent negative responses have been documented in the HPI. ROS Other: All systems not noted in ROS Statement are negative. Past Medical History Past Medical History: Asthma Additional Past Medical History / Comment(s): TACHYCARDIA, peptic ulcers, anemia."HAS BEEN ON VENTILATOR IN PAST D/T SEVERE ASTHMA ATTACK," BULEMIA-STATES GETTING BETTER, CONSTIPATION. HERNIATED DISC, cervical cancer. 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 recent antibiotoc for infection in arm-now resolved per pt History of Any Multi-Drug Resistant Organisms: MRSA Date of last positivie culture/infection: 08/25/14 MDRO Source:: rt Groin Past Surgical History: Bariatric Surgery, Cholecystectomy, Joint Replacement, Orthopedic Surgery, Tonsillectomy Additional Past Surgical History / Comment(s): Tilt table test, lap band 2007; NASAL FX REPAIR , ORIF LT ELBOW X2, PAIN PROCEDURES for migraines. Surgery on her cervix for cancer, rt foot surgery(Fx), cysto/lithotripsy , left hip replacement 12/2018, lumbar puncture, cervical biopsy in August @[facility], bone tumor removal Past Anesthesia/Blood Transfusion Reactions: Postoperative Nausea & Vomiting (PONV) Past Psychological History: Anxiety, Depression Smoking Status: Never smoker Past Alcohol Use History: None Reported Past Drug Use History: None Reported - Past Family History Mother Family Medical History: Pneumonia Additional Family Medical History / Comment(s): Mother of pneumonia. Patient's son of brain cancer, last mother and father both liver cancer Son(s) Family Medical History: Cancer Additional Family Medical History / Comment(s): Son of brain cancer. Father Family Medical History: Cancer Additional Family Medical History / Comment(s): Liver Cancer. General Exam Limitations: no limitations General appearance: alert, in no apparent distress Head exam: Present: atraumatic, normocephalic, normal inspection Eye exam: Present: normal appearance, PERRL, EOMI. Absent: scleral icterus, conjunctival injection, periorbital swelling ENT exam: Present: normal exam, mucous membranes moist Neck exam: Present: normal inspection. Absent: tenderness, meningismus, lymphadenopathy Respiratory exam: Present: normal lung sounds bilaterally. Absent: respiratory distress, wheezes, rales, rhonchi, stridor Cardiovascular Exam: Present: regular rate, normal rhythm, normal heart sounds. Absent: systolic murmur, diastolic murmur, rubs, gallop, clicks GI/Abdominal exam: Present: soft, normal bowel sounds. Absent: distended, tenderness, guarding, rebound, rigid Extremities exam: Present: normal inspection, full ROM, normal capillary refill. Absent: tenderness, pedal edema, joint swelling, calf tenderness Neurological exam: Present: alert, oriented X3, CN II-XII intact Psychiatric exam: Present: normal affect, normal mood Skin exam: Present: warm, dry, intact, normal color. Absent: rash Course Vital Signs 08/30/20 10:15 Temperature 98.3 F Pulse Rate 92 Respiratory 18 Rate Blood Pressure 153/103 O2 Sat by Pulse 98 Oximetry EKG Findings - EKG Comments: EKG Findings:: Ventricular rate 87 bpm, NE interval 124 ms, QRS duration 78 ms, QT/QTC 354/425 ms, PRT axes 65/74/47. Normal sinus rhythm, normal ECG. Medical Decision Making - Medical Decision Making 39-year-old female complaining of weakness and generally not feeling well with aches and pains. Labs, chest x-ray, 1 L normal saline, EKG ordered. Upon reevaluation patient states that she is feeling better after receiving fluids. She notes that she has a very hard time drinking at home. Labs unremarkable, white count is down to 9.8. Case discussed with Dr. Stanley, patient can discharge home with follow-up to primary care. - Lab Data Result diagrams: 08/30/20 11:20 08/30/20 11:20 Lab Results 08/30/20 08/30/20 08/30/20 Range/Units 11:20 11:20 11:20 WBC 9.8 (3.8-10.6) k/uL RBC 4.18 (3.80-5.40) m/uL Hgb 14.3 (11.4-16.0) gm/dL Hct 39.6 (34.0-46.0) % MCV 94.9 (80.0-100.0) fL MCH 34.3 (25.0-35.0) pg MCHC 36.1 (31.0-37.0) g/dL RDW 11.4 L (11.5-15.5) % Plt Count 259 (150-450) k/uL MPV 6.4 Neutrophils % 74 % Lymphocytes % 22 % Monocytes % 3 % Eosinophils % 1 % Basophils % 0 % Neutrophils # 7.2 (1.3-7.7) k/uL Lymphocytes # 2.1 (1.0-4.8) k/uL Monocytes # 0.3 (0-1.0) k/uL Eosinophils # 0.1 (0-0.7) k/uL Basophils # 0.0 (0-0.2) k/uL PT 10.2 (9.0-12.0) sec INR 0.9 (<1.2) APTT 21.2 L (22.0-30.0) sec D-Dimer 0.38 (<0.60) mg/L FEU Sodium (137-145) mmol/L Potassium (3.5-5.1) mmol/L Chloride (98-107) mmol/L Carbon Dioxide (22-30) mmol/L Anion Gap mmol/L BUN (7-17) mg/dL Creatinine (0.52-1.04) mg/dL Est GFR (CKD-EPI)AfAm (>60 ml/min/1.73 sqM) Est GFR (CKD-EPI)NonAf (>60 ml/min/1.73 sqM) Glucose (74-99) mg/dL Plasma Lactic Acid Yordan (0.7-2.0) mmol/L Calcium (8.4-10.2) mg/dL Magnesium (1.6-2.3) mg/dL Total Bilirubin (0.2-1.3) mg/dL AST (14-36) U/L ALT (4-34) U/L Alkaline Phosphatase (38-126) U/L C-Reactive Protein (<10.0) mg/L Total Protein (6.3-8.2) g/dL Albumin (3.5-5.0) g/dL Urine Color Colorless Urine Appearance Clear (Clear) Urine pH 7.0 (5.0-8.0) Ur Specific [place] 1.005 (1.001-1.035) Urine Protein Negative (Negative) Urine Glucose (UA) Negative (Negative) Urine Ketones Negative (Negative) Urine Blood Negative (Negative) Urine Nitrite Negative (Negative) Urine Bilirubin Negative (Negative) Urine Urobilinogen <2.0 (<2.0) mg/dL Ur Leukocyte Esterase Negative (Negative) 08/30/20 08/30/20 Range/Units 11:20 11:20 WBC (3.8-10.6) k/uL RBC (3.80-5.40) m/uL Hgb (11.4-16.0) gm/dL Hct (34.0-46.0) % MCV (80.0-100.0) fL MCH (25.0-35.0) pg MCHC (31.0-37.0) g/dL RDW (11.5-15.5) % Plt Count (150-450) k/uL MPV Neutrophils % % Lymphocytes % % Monocytes % % Eosinophils % % Basophils % % Neutrophils # (1.3-7.7) k/uL Lymphocytes # (1.0-4.8) k/uL Monocytes # (0-1.0) k/uL Eosinophils # (0-0.7) k/uL Basophils # (0-0.2) k/uL PT (9.0-12.0) sec INR (<1.2) APTT (22.0-30.0) sec D-Dimer (<0.60) mg/L FEU Sodium 138 (137-145) mmol/L Potassium 3.7 (3.5-5.1) mmol/L Chloride 103 (98-107) mmol/L Carbon Dioxide 29 (22-30) mmol/L Anion Gap 6 mmol/L BUN 12 (7-17) mg/dL Creatinine 1.02 (0.52-1.04) mg/dL Est GFR (CKD-EPI)AfAm 81 (>60 ml/min/1.73 sqM) Est GFR (CKD-EPI)NonAf 70 (>60 ml/min/1.73 sqM) Glucose 91 (74-99) mg/dL Plasma Lactic Acid Yordan 1.0 (0.7-2.0) mmol/L Calcium 9.0 (8.4-10.2) mg/dL Magnesium 2.1 (1.6-2.3) mg/dL Total Bilirubin 0.6 (0.2-1.3) mg/dL AST 19 (14-36) U/L ALT 12 (4-34) U/L Alkaline Phosphatase 63 (38-126) U/L C-Reactive Protein 6.3 (<10.0) mg/L Total Protein 7.0 (6.3-8.2) g/dL Albumin 4.3 (3.5-5.0) g/dL Urine Color Urine Appearance (Clear) Urine pH (5.0-8.0) Ur Specific [place] (1.001-1.035) Urine Protein (Negative) Urine Glucose (UA) (Negative) Urine Ketones (Negative) Urine Blood (Negative) Urine Nitrite (Negative) Urine Bilirubin (Negative) Urine Urobilinogen (<2.0) mg/dL Ur Leukocyte Esterase (Negative) - EKG Data -: EKG Interpreted by Hi EKG shows normal: sinus rhythm Rate: normal EKG Comments: Ventricular rate 87 bpm, NE interval 124 ms, QRS duration 78 ms, QT/QTC 354/425 ms, PRT axes 65/74/47. Normal sinus rhythm, normal ECG. - Radiology Data Radiology results: report reviewed, image reviewed Chest x-ray: No acute process Disposition Clinical Impression: Dehydration, Weakness Disposition: HOME SELF-CARE Condition: Stable Instructions (If sedation given, give patient instructions): Dehydration (ED) Additional Instructions: Please return to the Emergency Department if symptoms worsen or any other concerns. Follow-up with primary care in 3-5 days. Really try to increase oral fluid intake to at least 100 ounces of water per day. Continue to follow-up with other specialists as intended. Is patient prescribed a controlled substance at d/c from ED?: No Referrals: Slade Gonzalez MD [Primary Care Provider] - 1-2 days Time of Disposition: 12:22
[2020-08-30 11:35] LABS: Basophils % (A) 0 %; Eosinophils # (A) 0.1 k/uL (0-0.7); Eosinophils % (A) 1 %; HCT 39.6 % (34.0-46.0); HGB 14.3 gm/dL (11.4-16.0); Lymphocytes # (A) 2.1 k/uL (1.0-4.8); Lymphocytes % (A) 22 %; MCH 34.3 pg (25.0-35.0); MCHC 36.1 g/dL (31.0-37.0); MCV 94.9 fL (80.0-100.0); Mean Platelet Volume 6.4; Monocytes # (A) 0.3 k/uL (0-1.0); Monocytes % (A) 3 %; Neutrophils # (A) 7.2 k/uL (1.3-7.7); Neutrophils % (A) 74 %; Platelet Count 259 k/uL (150-450); RBC 4.18 m/uL (3.80-5.40); RDW 11.4 % (11.5-15.5); WBC 9.8 k/uL (3.8-10.6)
[2020-08-30 11:42] LABS: Appearance,Urine Clear (Clear); Bilirubin,Urine Negative (Negative); Blood,Urine Negative (Negative); Color,Urine Colorless; Glucose,Urine (UA) Negative (Negative); Ketones,Urine Negative (Negative); Leukocyte Esterase,Urine Negative (Negative); Nitrite,Urine Negative (Negative); Protein,Urine Negative (Negative); Urobilinogen,Urine <2.0 mg/dL (<2.0)
[2020-08-30 11:50] LABS: Albumin 4.3 g/dL (3.5-5.0); Magnesium 2.1 mg/dL (1.6-2.3); Potassium 3.7 mmol/L (3.5-5.1); Total Bilirubin 0.6 mg/dL (0.2-1.3)
[2020-08-30 11:51] LABS: C Reactive Protein 6.3 mg/L (<10.0)
[2020-08-30 11:57] LABS: D-Dimer 0.38 mg/L FEU (<0.60); INR 0.9 (<1.2); Prothrombin Time 10.2 sec (9.0-12.0)
[2020-08-30 12:02] LABS: Specific Gravity,Urine 1.005 (1.001-1.035)
--- NOTE | 2020-08-30 12:03 | XR ---
EXAMINATION TYPE: XR chest 2V DATE OF EXAM: 08/30/2020 COMPARISON: 08/19/2020 TECHNIQUE: PA and lateral views submitted. HISTORY: Chest pain FINDINGS: The lungs are clear and there is no pneumothorax, pleural effusion, or focal pneumonia. Surgical cl ips in the right upper quadrant of the abdomen. Heart size normal. No overt failure. Hypertrophic and degenerative changes of the spine. LAP-BAND surgical changes noted in the abdomen. IMPRESSION: 1. No acute process.
[2020-08-30 12:11] LABS: Partial Thromboplastin Time 21.2 sec (22.0-30.0)
[2020-08-30 13:15] VITALS: BP 142/69; PULSE 78; TEMP 98.2
== END 2020-08-30 13:15 | disposition home or self-care (01) ==
LOC: EC 10:10 → SUPCPDRO 10:10 → EC 13:15
DX: E86.0 Dehydration (principal); R53.1 Weakness; F41.9 Anxiety disorder, unspecified; F32.9 Major depressive disorder, single episode, unspecified; J45.909 Unspecified asthma, uncomplicated; Z79.51 Long term (current) use of inhaled steroids; Z79.899 Other long term (current) drug therapy; Z86.14 Personal history of Methicillin resistant Staphylococcus aureus infection; Z90.49 Acquired absence of other specified parts of digestive tract; Z98.84 Bariatric surgery status; Z85.41 Personal history of malignant neoplasm of cervix uteri; Z96.642 Presence of left artificial hip joint; Z80.0 Family history of malignant neoplasm of digestive organs; Z80.8 Family history of malignant neoplasm of other organs or systems; Z86.69 Personal history of other diseases of the nervous system and sense organs
CPT/HCPCS: 36415; 71046; 80053; 81003; 83605; 83735; 85025; 85379; 85610; 85730; 86140; 93005; 96360; 96361; 99285

== ENCOUNTER → 2020-09-15 | Outpatient (CLI) | payer MEDICARE, OTHER ==
[2020-09-15 19:20] LABS: Basophils # (A) 0.05 X 10*3/uL (0.00-0.10); Basophils % (A) 0.7 %; Eosinophils # (A) 0.06 X 10*3/uL (0.04-0.35); Eosinophils % (A) 0.8 %; HGB 13.2 g/dL (12.0-15.0); Lymphocytes # (A) 2.06 X 10*3/uL (0.90-5.00); Lymphocytes % (A) 27.1 %; MCH 32.9 pg (27.0-32.0); MCHC 33.8 g/dL (32.0-37.0); MCV 97.3 fL (80.0-97.0); Mean Platelet Volume 9.1 fL (9.5-12.2); Monocytes # (A) 0.37 X 10*3/uL (0.20-1.00); Monocytes % (A) 4.9 %; Neutrophils # (A) 5.03 X 10*3/uL (1.80-7.70); Neutrophils % (A) 66.1 %; Platelet Count 281 X 10*3/uL (140-440); RBC 4.01 X 10*6/uL (4.10-5.20); RDW 12.1 % (11.5-14.5)
[2020-09-15 22:43] LABS: Cyclic Citrull Pep IgG Unit <0.5 U/mL; Cyclic Citrullinated Pep IgG NEGATIVE (NEGATIVE)
[2020-09-16 01:40] LABS: T4, Free (Free Thyroxine) 1.1 ng/dL (0.80-1.80)
[2020-09-16 02:12] LABS: African American GFR (CKD) 65.9 (60.0-200.0); Albumin 5.1 g/dL (3.80-4.90); Albumin/Globulin Ratio 2.32 (1.60-3.17); Calcium 10.1 mg/dL (8.7-10.3); Globulin 2.2 g/dL (1.6-3.3); Non-African American GFR(CKD) 56.9 (60.0-200.0); Potassium 3.7 mmol/L (3.5-5.5); Total Bilirubin 0.7 mg/dL (0.3-1.2); Total Protein 7.3 g/dL (6.2-8.2)
== END | disposition home or self-care (01) ==
LOC: LABWHC1 11:33
PROVIDERS: ATTEND Family Medicine
DX: E09.9 Drug or chemical induced diabetes mellitus without complications (principal); E03.9 Hypothyroidism, unspecified; M25.50 Pain in unspecified joint
CPT/HCPCS: 36415; 80053; 83036; 84439; 84443; 84481; 85025; 86038; 86200; 86431

== ENCOUNTER 2020-09-30 12:49 | Emergency (ER) | payer MEDICARE, OTHER ==
[2020-09-30 13:02] VITALS: RESP 18; TEMP 98.4
[2020-09-30] MEDS ORDERED: DIAZEPAM 5 MG/ML 2 ML INJ IVP STA (13:25)
[2020-09-30] MEDS ORDERED: diphenhydrAMINE 50 MG/ML 1 ML VIAL IVP STA (13:25)
[2020-09-30] MEDS ORDERED: KETOROLAC 15 MG/ML 1 ML VIAL IVP STA (13:27)
--- NOTE | 2020-09-30 13:42 | ED ---
General Adult HPI - General Source: patient, RN notes reviewed Mode of arrival: ambulatory Limitations: no limitations <Miguel Spring - Last Filed: 09/30/20 13:40> <Marquis Booker - Last Filed: 09/30/20 15:40> - General Chief complaint: Dizziness Stated complaint: Dizzy,Head ache Time Seen by Provider: 09/30/20 13:16 - History of Present Illness Initial comments: 39-year-old female presents emergency Department chief complaint of dizziness. Patient states that this been going on she did have recent Botox injection yesterday and states that they'll attempt time doing her injections this time cause have some discomfort. She is complaining of a headache which is not usual. She states this feels that her typical headache. Patient states that she did have recent syncopal episode. She did not feel well which haven't few days ago. She states she quickly stood up from her couch when talked her bedroom states that she passed out before. Patient has no complaints chest pain, shortness breath. She states nausea no vomiting no diarrhea no fevers chills. Patient has no focal weakness no blurred vision. She normally takes Imitrex for headaches. She does state that her heart rate is elevated this is normal for her as she been diagnosed with tachycardic episodes (Miguel Spring) - Related Data Home Medications Medication Instructions Recorded Confirmed Medroxyprogesterone Acetate 150 mg IM Q84D 07/10/18 09/30/20 [Depo-Provera] Omalizumab [Xolair] 150 mg SQ QMONTHLY 07/10/18 09/30/20 Levothyroxine Sodium [Synthroid] 137 mcg PO DAILY@59906/22/19 09/30/20 traZODone HCL 100 mg PO HS@199907/09/19 09/30/20 PARoxetine [Paxil] 20 mg PO HS@199912/18/19 09/30/20 Fluticasone Propionate [Flovent 1 puff INHALATION 06/13/20 09/30/20 Hfa 220 mcg] RT-DAILY@ Loratadine [Claritin] 10 mg PO DAILY@0700 06/13/20 09/30/20 SUMAtriptan SUCCINATE [Imitrex] 100 mg PO DAILY PRN 06/13/20 09/30/20 Botox Neck Injection 300 mg SQ Q70D 08/30/20 09/30/20 Cholecalciferol [Vitamin D3 (25 50 mcg PO DAILY@69908/30/20 09/30/20 Mcg = 1000 Iu)] Albuterol Sulfate [Ventolin HFA] 2 puff INHALATION RT-Q6H PRN 09/30/20 09/30/20 Cyanocobalamin (Vitamin B-12) 3,000 mcg PO DAILY@0809/30/20 09/30/20 [Vitamin B-12] Methylphenidate HCl [[place]] 36 mg PO DAILY@69909/30/20 09/30/20 levalbuterol HCL [Levalbuterol HCl] 0.63 mg INHALATION RT-QID PRN 09/30/20 09/30/20 Previous Rx's Medication Instructions Recorded HYDROcodone/APAP 7.5-325MG [[place] 1 tab PO QID PRN 30 Days #120 tab 08/24/20 7.5-325] tiZANidine [Zanaflex] 4 mg PO Q8HR PRN #90 tab 08/24/20 Allergies Allergy/AdvReac Type Severity Reaction Status Date / Time No Known Allergies Allergy Verified 09/30/20 14:37 Review of Systems ROS Other: All systems not noted in ROS Statement are negative. <Miguel Spring - Last Filed: 09/30/20 13:40> ROS Other: All systems not noted in ROS Statement are negative. <Marquis Booker - Last Filed: 09/30/20 15:40> ROS Statement: Those systems with pertinent positive or pertinent negative responses have been documented in the HPI. Past Medical History Past Medical History: Asthma Additional Past Medical History / Comment(s): TACHYCARDIA, peptic ulcers, anemia."HAS BEEN ON VENTILATOR IN PAST D/T SEVERE ASTHMA ATTACK," BULEMIA-STATES GETTING BETTER, CONSTIPATION. HERNIATED DISC, cervical cancer. 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 recent antibiotoc for infection in arm-now resolved per pt History of Any Multi-Drug Resistant Organisms: MRSA Date of last positivie culture/infection: 08/25/14, MDRO Source:: rt Groin Past Surgical History: Bariatric Surgery, Cholecystectomy, Joint Replacement, Orthopedic Surgery, Tonsillectomy Additional Past Surgical History / Comment(s): Tilt table test, lap band 2007; NASAL FX REPAIR , ORIF LT ELBOW X2, PAIN PROCEDURES for migraines. Surgery on her cervix for cancer, rt foot surgery(Fx), cysto/lithotripsy , left hip replacement 12/2018, lumbar puncture, cervical biopsy in August @[facility], bone tumor removal Past Anesthesia/Blood Transfusion Reactions: Postoperative Nausea & Vomiting (PONV) Past Psychological History: Anxiety, Depression Smoking Status: Never smoker Past Alcohol Use History: None Reported Past Drug Use History: None Reported - Past Family History Mother Family Medical History: Pneumonia Additional Family Medical History / Comment(s): Mother of pneumonia. Patient's son of brain cancer, last mother and father both liver cancer Son(s) Family Medical History: Cancer Additional Family Medical History / Comment(s): Son of brain cancer. Father Family Medical History: Cancer Additional Family Medical History / Comment(s): Liver Cancer. <Miguel Spring - Last Filed: 09/30/20 13:40> General Exam Limitations: no limitations General appearance: alert, in no apparent distress Head exam: Present: atraumatic, normocephalic, normal inspection Eye exam: Present: normal appearance, PERRL, EOMI. Absent: scleral icterus, conjunctival injection, periorbital swelling ENT exam: Present: normal exam, normal oropharynx, mucous membranes moist Neck exam: Present: tenderness, full ROM. Absent: normal inspection (Patient has noted rash, patient has slight tilt to the right which is chronic), lymphadenopathy Respiratory exam: Present: normal lung sounds bilaterally. Absent: respiratory distress, wheezes, rales, rhonchi, stridor Cardiovascular Exam: Present: regular rate, normal rhythm, normal heart sounds. Absent: systolic murmur, diastolic murmur, rubs, gallop, clicks Neurological exam: Present: alert, oriented X3, CN II-XII intact, reflexes normal. Absent: motor sensory deficit Skin exam: Present: warm, dry, intact, normal color. Absent: rash <Miguel Spring - Last Filed: 09/30/20 13:40> Course Vital Signs 09/30/20 12:57 Temperature 98.4 F Pulse Rate 99 Respiratory 18 Rate Blood Pressure 153/100 O2 Sat by Pulse 100 Oximetry Medical Decision Making - Lab Data Result diagrams: 09/30/20 14:00 09/30/20 14:00 <Marquis Booker - Last Filed: 09/30/20 15:40> - Medical Decision Making Vitals are stable. I received signout from Miguel Spring at 1400 pending laboratory evaluation. CBC CMP unremarkable. Troponin is negative. Patient was reevaluated by myself. She did have significant improvement in symptoms after medication given. Patient states that this lightheadedness and headache is fairly normal for her after she has her Botox injections. She states that she was nervous because there was no one home to watch her when she was lightheaded today. However she reports now her sister will be coming over to stay with her. Patient does feel well enough for discharge home. Patient reports that he has no lightheadedness at this time. Patient will also follow- up with PCP and cardiology for a syncopal episode last week in which she went from a sitting to standing position and started to feel lightheaded. Consistent with a vasovagal syncope. She will return here for any worsening symptoms. (Marquis Booker) - Lab Data Lab Results 09/30/20 09/30/20 09/30/20 Range/Units 14:00 14:00 14:00 WBC 6.1 (3.8-10.6) k/uL RBC 4.18 (3.80-5.40) m/uL Hgb 14.3 (11.4-16.0) gm/dL Hct 39.8 (34.0-46.0) % MCV 95.2 (80.0-100.0) fL MCH 34.2 (25.0-35.0) pg MCHC 35.9 (31.0-37.0) g/dL RDW 11.8 (11.5-15.5) % Plt Count 258 (150-450) k/uL MPV 6.9 Neutrophils % 66 % Lymphocytes % 26 % Monocytes % 4 % Eosinophils % 2 % Basophils % 1 % Neutrophils # 4.1 (1.3-7.7) k/uL Lymphocytes # 1.6 (1.0-4.8) k/uL Monocytes # 0.3 (0-1.0) k/uL Eosinophils # 0.1 (0-0.7) k/uL Basophils # 0.0 (0-0.2) k/uL Sodium 142 (137-145) mmol/L Potassium 4.1 (3.5-5.1) mmol/L Chloride 110 H (98-107) mmol/L Carbon Dioxide 24 (22-30) mmol/L Anion Gap 8 mmol/L BUN 8 (7-17) mg/dL Creatinine 0.97 (0.52-1.04) mg/dL Est GFR (CKD-EPI)AfAm 86 (>60 ml/min/1.73 sqM) Est GFR (CKD-EPI)NonAf 74 (>60 ml/min/1.73 sqM) Glucose 83 (74-99) mg/dL Calcium 9.8 (8.4-10.2) mg/dL Total Bilirubin 0.4 (0.2-1.3) mg/dL AST 22 (14-36) U/L ALT 12 (4-34) U/L Alkaline Phosphatase 65 (38-126) U/L Troponin I <0.012 (0.000-0.034) ng/mL Total Protein 7.3 (6.3-8.2) g/dL Albumin 4.4 (3.5-5.0) g/dL Disposition <Miguel Spring M - Last Filed: 09/30/20 13:40> Is patient prescribed a controlled substance at d/c from ED?: No Time of Disposition: 15:37 <Marquis Booker P - Last Filed: 09/30/20 15:40> Clinical Impression: Migraine headache, Light headedness Disposition: HOME SELF-CARE Condition: Good Instructions (If sedation given, give patient instructions): Dizziness (ED) Additional Instructions: Please drink plenty of fluids. Follow-up with your doctor. Return to the emergency room for any worsening symptoms Referrals: Slade Gonzalez MD [Primary Care Provider] - 1-2 days
[2020-09-30] MEDS ORDERED: SODIUM CHLORIDE 0.9% 500 ML 500 ML IV STA (14:04)
[2020-09-30] MEDS ORDERED: SODIUM CHLORIDE 0.9% 1,000 ML IV STA (14:04)
[2020-09-30] MEDS ORDERED: ONDANSETRON 4 MG/2 ML VIAL IVP STA (14:09)
[2020-09-30 14:19] LABS: Basophils % (A) 1 %; Eosinophils # (A) 0.1 k/uL (0-0.7); Eosinophils % (A) 2 %; HCT 39.8 % (34.0-46.0); HGB 14.3 gm/dL (11.4-16.0); Lymphocytes # (A) 1.6 k/uL (1.0-4.8); Lymphocytes % (A) 26 %; MCH 34.2 pg (25.0-35.0); MCHC 35.9 g/dL (31.0-37.0); MCV 95.2 fL (80.0-100.0); Mean Platelet Volume 6.9; Monocytes # (A) 0.3 k/uL (0-1.0); Monocytes % (A) 4 %; Neutrophils # (A) 4.1 k/uL (1.3-7.7); Neutrophils % (A) 66 %; Platelet Count 258 k/uL (150-450); RBC 4.18 m/uL (3.80-5.40); RDW 11.8 % (11.5-15.5); WBC 6.1 k/uL (3.8-10.6)
[2020-09-30 14:33] LABS: Albumin 4.4 g/dL (3.5-5.0); Calcium 9.8 mg/dL (8.4-10.2); Potassium 4.1 mmol/L (3.5-5.1); Total Bilirubin 0.4 mg/dL (0.2-1.3); Total Protein 7.3 g/dL (6.3-8.2)
[2020-09-30 16:07] VITALS: BP 142/95; PULSE 78
== END 2020-09-30 16:07 | disposition home or self-care (01) ==
LOC: EC 12:49
DX: G43.909 Migraine, unspecified, not intractable, without status migrainosus (principal); J45.909 Unspecified asthma, uncomplicated; F41.9 Anxiety disorder, unspecified; F32.9 Major depressive disorder, single episode, unspecified; Z79.899 Other long term (current) drug therapy; Z79.51 Long term (current) use of inhaled steroids; Z79.3 Long term (current) use of hormonal contraceptives
CPT/HCPCS: 36415; 93005; 80053; 84484; 85025; 99284; 96374; 96375 ×3; J1200; J3360; J2405; J1885

== ENCOUNTER → 2020-10-19 | Outpatient (CLI) | payer MEDICARE, OTHER ==
[2020-10-19 07:55] VITALS: BP 120/84; PULSE 100; RESP 18; TEMP 99
--- NOTE | 2020-10-19 08:21 | P.PN ---
Subjective Progress Note Date: 10/19/20 This is a follow-up visit for this 39-year-old female. She has been diagnosed with occipital neuralgia, also patient had cervical dystonia ,Today, her pain is primarily located in the bilateral neck, radiating to lateral head, left greater than right side. This is associated with left hand spasms. She also continues to have hip pain and weakness. She is continuing to get Botox injections with her neurologist to manage her muscular dystonia. Pain is rated as 7/10 today,the pain is constant, throbbing, aching, sharp. Pain is worse with upright position, sitting, worse of the day progresses and better with laying down, medications. She continues to use Zanaflex 4 mg when necessary and [place] 7.5/625 every 6 hours when necessary. These medications are helping control her pain, she has mild side effects in the form of dry mouth from Zanaflex. She was admitted recently to the emergency department [facility] secondary to dizziness, which was secondary to poor oral intake and side effect of covid vaccination 1-Constitutional : Cooperative , not in acute distress . 2-HEENT : nech ; supple , no Lymphadenopathy , no Thyromegaly , normal thyroid size . eyes : no ptosis , no icterus, no photophobia . ENT : normal of hearing , normal oropharynx . . 3- Musculoskeltal : exams of the cervical spine = motor strength normal bilateral upper extremities facet loading test cervical area positive. Multiple trigger points in the cervical paravertebral muscles rhomboid and trapezius muscles examined more than the left side Assessment and plan = Chronic low back pain secondary to lumbar degenerative disc disease , lumbar spondylosis with facet arthropathy without myelopathy Upper back pain secondary to myofascial pain syndrome and cervical area. And cervical dystonia Midback pain secondary to thoracic herniated disc disease Severe muscle spasm with undetermined etiology chronic and current use of high-risk medication (Opioids). The patient was counseled about risk of opioid use, psychological risk associated with opioids and was orally counseled to not overuse , divert,or sell dictations to take medications as prescribed only , and to restore medication in safe location , the patient counseled against driving while using narcotic medications, and also not to use alcohol or any illicit recreational drugs, patient's verbalized understanding that the lack of compliance will result in failure to renew narcotic prescription and possible discharge from the clinic - diagnoses, prognosis, and treatment options including but not limited to physical therapy, surgical interventions, interventional therapies , and medication management including narcotics and adjuvant medication were discussed with the patient and all the questions answered Prescript refill for, [place] 7.5/325 dispense 120 with one refill, Prescription for Zanaflex 4 mg every 8 hours dispense 90, MAPS reviewed and is appropriate. - PQRS measures = - Patient's medications are documented in the chart. -Tobacco use is negative and counseling.Given. -Patient's has received pneumococcal vaccine. -Advanced care planning discussed, patient not eligible. -Opiate contract signed. -Pain positive and follow-up visit/procedure is scheduled. -Patient's blood pressure measured [ 120/84] , and documented in the record ,and patient will follow up with the primary care. -Patient's weight was measured and body mass index [ 26.3 ] above the normal limits and counseling was done. and patient instructed to follow-up with the primary care physician. -Patient was not identified as an unhealthy alcohol user Objective - Vital Signs Vital signs: Vital Signs Temp 99.0 F 10/19/20 07:53 Pulse 100 10/19/20 07:53 Resp 18 10/19/20 07:53 BP 120/84 10/19/20 07:53 Pulse Ox 98 10/19/20 07:53
== END ==
LOC: PNWHC3 07:40
PROVIDERS: ATTEND Specialist
DX: M51.36 Other intervertebral disc degeneration, lumbar region (principal); M47.816 Spondylosis without myelopathy or radiculopathy, lumbar region; G89.29 Other chronic pain; M79.18 Myalgia, other site; G24.3 Spasmodic torticollis; M51.24 Other intervertebral disc displacement, thoracic region; Z79.891 Long term (current) use of opiate analgesic; M62.838 Other muscle spasm
CPT/HCPCS: 99211

== ENCOUNTER 2020-12-08 12:01 | Emergency (ER) | payer MEDICARE, OTHER ==
[2020-12-08 12:16] VITALS: RESP 18; TEMP 98.7
[2020-12-08] MEDS ORDERED: KETOROLAC 15 MG/ML 1 ML VIAL IVP STA (12:34)
[2020-12-08] MEDS ORDERED: DIAZEPAM 5 MG/ML 2 ML INJ IVP STA (12:34)
[2020-12-08] MEDS ORDERED: SODIUM CHLORIDE 0.9% 500 ML 500 ML IV ONE (12:34)
[2020-12-08 12:47] VITALS: BP 139/93; PULSE 83
--- NOTE | 2020-12-08 12:48 | ED ---
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 Patient states then she has some muscle spasms and the pain from the muscle spasms is quite significant. Patient states it spasms to be anywhere body notch as where she had injections. Patient denies any fever chills. Patient any injury trauma. Patient states this has happened multiple times in the past. Patient denies any chest pain difficult breathing shortness of breath per patient denies abdominal pain patient denies nausea vomiting diarrhea. - Related Data Home Medications Medication Instructions Recorded Confirmed Medroxyprogesterone Acetate 150 mg IM Q84D 07/10/18 10/19/20 [Depo-Provera] Omalizumab [Xolair] 300 mg SQ QMONTHLY 07/10/18 10/19/20 Levothyroxine Sodium [Synthroid] 137 mcg PO DAILY 06/22/19 10/19/20 traZODone HCL 100 mg PO HS 07/09/19 10/19/20 PARoxetine [Paxil] 20 mg PO HS 12/18/19 10/19/20 Fluticasone Propionate [Flovent 1 puff INHALATION 06/13/20 10/19/20 Hfa 220 mcg] RT-DAILY@0700,2000 Loratadine [Claritin] 10 mg PO DAILY 06/13/20 10/19/20 SUMAtriptan SUCCINATE [Imitrex] 100 mg PO DIRECTED PRN 06/13/20 10/19/20 Botox Neck Injection 300 mg SQ Q70D 08/30/20 10/19/20 Cholecalciferol [Vitamin D3 (25 50 mcg PO DAILY 08/30/20 10/19/20 Mcg = 1000 Iu)] Albuterol Sulfate [Ventolin HFA] 2 puff INHALATION RT-Q6H PRN 09/30/20 10/19/20 Cyanocobalamin (Vitamin B-12) 3,000 mcg PO DAILY 09/30/20 10/19/20 [Vitamin B-12] Methylphenidate HCl [Concerta] 36 mg PO DAILY 09/30/20 10/19/20 levalbuterol HCL [Levalbuterol HCl] 0.63 mg INHALATION RT-QID PRN 09/30/20 10/19/20 Previous Rx's Medication Instructions Recorded HYDROcodone/APAP 7.5-325MG [[place] 1 tab PO Q6H PRN 30 Days #120 tab 10/19/20 7.5-325] HYDROcodone/APAP 7.5-325MG [[place] 1 tab PO QID PRN 30 Days #120 tab 10/19/20 7.5-325] tiZANidine [Zanaflex] 4 mg PO Q8HR PRN #90 tab 10/19/20 Allergies Allergy/AdvReac Type Severity Reaction Status Date / Time No Known Allergies Allergy Verified 10/14/20 14:42 Review of Systems ROS Statement: Those systems with pertinent positive or pertinent negative responses have been documented in the HPI. ROS Other: All systems not noted in ROS Statement are negative. Past Medical History Past Medical History: Asthma Additional Past Medical History / Comment(s): TACHYCARDIA, peptic ulcers, anemia."HAS BEEN ON VENTILATOR IN PAST D/T SEVERE ASTHMA ATTACK," BULEMIA-STATES GETTING BETTER, CONSTIPATION. HERNIATED DISC, cervical cancer. 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 recent antibiotoc for infection in arm-now resolved per pt History of Any Multi-Drug Resistant Organisms: MRSA Date of last positivie culture/infection: 08/25/14, MDRO Source:: rt Groin Past Surgical History: Bariatric Surgery, Cholecystectomy, Joint Replacement, Orthopedic Surgery, Tonsillectomy Additional Past Surgical History / Comment(s): Tilt table test, lap band 2007; NASAL FX REPAIR , ORIF LT ELBOW X2, PAIN PROCEDURES for migraines. Surgery on her cervix for cancer, rt foot surgery(Fx), cysto/lithotripsy , left hip replacement 12/2018, lumbar puncture, cervical biopsy in August @[facility], bone tumor removal Past Anesthesia/Blood Transfusion Reactions: Postoperative Nausea & Vomiting (PONV) Past Psychological History: Anxiety, Depression Smoking Status: Never smoker Past Alcohol Use History: None Reported Past Drug Use History: None Reported - Past Family History Mother Family Medical History: Pneumonia Additional Family Medical History / Comment(s): Mother of pneumonia. Patient's son of brain cancer, last mother and father both liver cancer Son(s) Family Medical History: Cancer Additional Family Medical History / Comment(s): Son of brain cancer. Father Family Medical History: Cancer Additional Family Medical History / Comment(s): Liver Cancer. General Exam - General Exam Comments Initial Comments: GENERAL: Patient is well-developed and well-nourished. Patient is nontoxic and well- hydrated and is in mild distress. ENT: Neck is soft and supple. No significant lymphadenopathy is noted. Oropharynx is clear. Moist mucous membranes. Patient does not have full range of motion of her neck and she states some of this is baseline but now with spasms worse today. EYES: The sclera were anicteric and conjunctiva were pink and moist. Extraocular movements were intact and pupils were equal round and reactive to light. Eyelids were unremarkable. PULMONARY: Unlabored respirations. Good breath sounds bilaterally. No audible rales rhonchi or wheezing was noted. CARDIOVASCULAR: There is a regular rate and rhythm without any murmurs gallops or rubs. ABDOMEN: Soft and nontender with normal bowel sounds. SKIN: Skin is clear with no lesions or rashes and otherwise unremarkable. NEUROLOGIC: Patient is alert and oriented x3. Cranial nerves II through XII are grossly intact. Motor and sensory are also intact. Normal speech, volume and content. Symmetrical smile. MUSCULOSKELETAL: Normal extremities with adequate strength and full range of motion. No lower extremity swelling or edema. No calf tenderness. LYMPHATICS: No significant lymphadenopathy is noted PSYCHIATRIC: Normal psychiatric evaluation. Course Vital Signs 12/08/20 12/08/20 12:07 12:46 Temperature 98.7 F Pulse Rate 95 83 Respiratory 18 18 Rate Blood Pressure 140/96 139/93 O2 Sat by Pulse 99 99 Oximetry Medical Decision Making - Medical Decision Making Patient received Toradol and Valium and was feeling much better and wanted to be discharged home and stated her spasms were gone. Disposition Clinical Impression: Muscle spasm Disposition: HOME SELF-CARE Condition: Good Instructions (If sedation given, give patient instructions): Muscle Spasm (ED) Is patient prescribed a controlled substance at d/c from ED?: No Referrals: Slade Gonzalez MD [Primary Care Provider] - 1-2 days Time of Disposition: 13:54
== END 2020-12-08 16:24 | disposition home or self-care (01) ==
LOC: EC 12:01
DX: M62.838 Other muscle spasm (principal); J45.909 Unspecified asthma, uncomplicated; G43.909 Migraine, unspecified, not intractable, without status migrainosus; F32.9 Major depressive disorder, single episode, unspecified; F41.9 Anxiety disorder, unspecified; Z79.51 Long term (current) use of inhaled steroids
CPT/HCPCS: 99284; 96374; 96375; J3360; J1885

== ENCOUNTER → 2020-12-14 | Outpatient (CLI) | payer MEDICARE, OTHER ==
[2020-12-14 08:01] VITALS: BP 117/87; PULSE 103; RESP 16; TEMP 98.3
--- NOTE | 2020-12-14 08:18 | P.PAINPG ---
Subjective Progress Note Date: 12/13/20 This is a follow-up visit for this 40-year-old female. She has been diagnosed with occipital neuralgia, also patient had cervical dystonia , history of chronic bilateral neck pain radiating to her head left worse than the right. Also has associated left hand spasms. In addition she complains of hip pain and weakness.She is continuing to get Botox injections with her neurologist to manage her muscular dystonia. Pain is rated as 5/10 today,the pain is constant, throbbing, aching, sharp. Pain is worse with upright position, sitting, worse of the day progresses and better with laying down, medications. She continues to use Zanaflex 4 mg when necessary and [place] 7.5/325 every 6 hours when necessa ry. These medications are helping control her pain. No new onset weakness. She mentions that her pain is not under great control but she is managing. She notes that the Zanaflex although works as made her significantly sedated. She had gone in the hospital recently with a gave her Valium at one point which she said was helpful and was inquiring if this would be helpful for her in the future. Her main complaint at this time is her muscle spasms. She is still getting Botox injections but they have lowered the dose due to a reaction she had. SHe is scheduled to see a holistic medicine physician in the future to learn further techniques to manage her pain. 1-Constitutional : Cooperative , not in acute distress . 2-HEENT : nech ; supple , no Lymphadenopathy , no Thyromegaly , normal thyroid size . eyes : no ptosis , no icterus, no photophobia . ENT : normal of hearing , normal oropharynx . . 3- Musculoskeltal : exams of the cervical spine = motor strength limited in upper extremities, both arms contracted. facet loading test cervical area positive. Multiple trigger points in the cervical paravertebral muscles rhomboid and trapezius muscles examined more than the left side. Reflexes intact. No Gould's sign or clonus present. Assessment and plan = Chronic low back pain secondary to lumbar degenerative disc disease , lumbar spondylosis with facet arthropathy without myelopathy Upper back pain secondary to myofascial pain syndrome and cervical area. And cervical dystonia Midback pain secondary to thoracic herniated disc disease Severe muscle spasm with undetermined etiology chronic and current use of high-risk medication (Opioids). The patient was counseled about risk of opioid use, psychological risk associated with opioids and was orally counseled to not overuse , divert,or sell dictations to take medications as prescribed only , and to restore medication in safe location , the patient counseled against driving while using narcotic medications, and also not to use alcohol or any illicit recreational drugs, patient's verbalized understanding that the lack of compliance will result in failure to renew narcotic prescription and possible discharge from the clinic - diagnoses, prognosis, and treatment options including but not limited to physical therapy, surgical interventions, interventional therapies , and medication management including narcotics and adjuvant medication were discussed with the patient and all the questions answered Prescript refill for, [place] 7.5/325 dispense 120 with one refill, Changed her muscle relaxant to Robaxin 750 mg QID. IF she calls and this isn't helpful, try flexeril 10 mg TID. I mentioned valium would not be a good option for her as she is on Concert and opioids, patient understands. I prescribed naprosyn 500 mg BID as well to help with myofascial pain i Recommended she try magnesium oxide 400 mg BID over the counter to help with muscle spasms as well. SHe has noted in the past she had deficiencies in K+ and Mg2+ so this could also play a role in her muscular pain. MAPS reviewed and is appropriate. - PQRS measures = - Patient's medications are documented in the chart. -Tobacco use is negative and counseling.Given. -Patient's has received pneumococcal vaccine. -Advanced care planning discussed, patient not eligible. -Opiate contract signed. -Pain positive and follow-up visit/procedure is scheduled. -Patient's blood pressure measured [ 120/84] , and documented in the record ,and patient will follow up with the primary care. -Patient's weight was measured and body mass index [ 26.3 ] above the normal limits and counseling was done. and patient instructed to follow-up with the primary care physician. -Patient was not identified as an unhealthy alcohol user I have spent 34 minutes on review of the records, review of the imaging available, [id number] interaction with the patient, medication management, follow-up care coordination and record creation. PQRS Measure Charge Sheet PQRS Narrative: Smoking Status Never smoker Narcotic Agreement Date Signed 11/25/19 Hx Alcohol Use (MH) No Home Medications: Ambulatory Orders Medroxyprogesterone Acetate [Depo-Provera] 150 mg IM Q84D 07/10/18 Omalizumab [Xolair] 300 mg SQ QMONTHLY 07/10/18 traZODone HCL 100 mg PO HS 07/09/19 PARoxetine [Paxil] 20 mg PO HS 12/18/19 Fluticasone Propionate [Flovent Hfa 220 mcg] 1 puff INHALATION RT- DAILY@0700,199906/13/20 Loratadine [Claritin] 10 mg PO DAILY 06/13/20 SUMAtriptan SUCCINATE [Imitrex] 100 mg PO DIRECTED PRN 06/13/20 Botox Neck Injection 300 mg SQ Q70D 08/30/20 Cholecalciferol [Vitamin D3 (25 Mcg = 1000 Iu)] 50 mcg PO DAILY 08/30/20 Albuterol Sulfate [Ventolin HFA] 2 puff INHALATION RT-Q6H PRN 09/30/20 Cyanocobalamin (Vitamin B-12) [Vitamin B-12] 3,000 mcg PO DAILY 09/30/20 Methylphenidate HCl [Concerta] 36 mg PO DAILY 09/30/20 levalbuterol HCL [Levalbuterol HCl] 0.63 mg INHALATION RT-QID PRN 09/30/20 Levothyroxine Sodium 125 mcg PO DAILY 12/13/20 HYDROcodone/APAP 7.5-325MG [[place] 7.5-325] 1 tab PO Q6H PRN 30 Days #120 tab 12/14/20 HYDROcodone/APAP 7.5-325MG [[place] 7.5-325] 1 tab PO QID PRN 30 Days #120 tab 12/14/20 Methocarbamol [Robaxin-750] 750 mg PO QID PRN 30 Days #120 tablet 12/14/20 Naproxen [EC-Naprosyn] 500 mg PO BID PRN 30 Days #60 tablet. 12/14/20 Controlled Substance Measures - Controlled Substance Measures Is patient prescribed a controlled substance at discharge?: Yes When asked, does pt state using other controlled substances?: No If prescribed controlled substance>3 days was MAPS reviewed?: Yes If Rx opioid, was Start Talking consent form obtained?: Yes If opioid is for acute pain is fill amount 7 days or less?: No Was information provided regarding opioid addiction?: Yes
== END ==
LOC: PNWHC3 07:44
PROVIDERS: ATTEND Anesthesiology
DX: M51.36 Other intervertebral disc degeneration, lumbar region (principal); M47.816 Spondylosis without myelopathy or radiculopathy, lumbar region; G89.29 Other chronic pain; M79.18 Myalgia, other site; G24.3 Spasmodic torticollis; M51.24 Other intervertebral disc displacement, thoracic region; M62.838 Other muscle spasm; Z79.891 Long term (current) use of opiate analgesic
CPT/HCPCS: 99211

== ENCOUNTER → 2021-02-08 | Outpatient (CLI) | payer MEDICARE, OTHER ==
[2021-02-08 08:42] VITALS: BP 149/90; PULSE 94; RESP 18; TEMP 98.7
--- NOTE | 2021-02-08 09:02 | P.PN ---
Subjective Progress Note Date: 02/08/21 This is a 40-year-old lady with history of cervical dystonia and chronic neck and mid and lower back pain. The patient has been getting increasing pain in the left arm with tightness in the left hand and also tingling and numbness in no specific radicular distribution. She also feels some weakness in the left arm which has started a few weeks ago. The patient had COVID-19 infection last month as she states. She has been getting [place] 7.5 mg 4 times a day for her pain and Zanaflex however we switch her to Robaxin last time which has not helped her pain and Zanaflex was causing hypotension to her. The patient is to be gets Botox injection in the cervical musculature by her neurologist at [facility]. The patient has a history of thoracic spine disc herniation with compression of the thoracic sac at the T7-8 or T8-9 levels. Patient denies new-onset weakness, bowel/bladder incontinence, or any other signs or symptoms of cauda equina syndrome. There are no signs of acute intoxication, and no indications of medication diversion or overuse. In addition to above, 13-point review of systems is also negative for chest pain, shortness of breath, changes in vision, changes in hearing, new onset weakness, abdominal pain, diarrhea, extreme fatigue, malaise, fever, skin changes, homicidal or suicidal ideation, or bowel or bladder incontinence. Vital Signs: Reviewed in EMR Gen: AAOx3, NAD the patient seems to be holding her left hand with a closed fist due to tightness and pain in the left hand as she states. HEENT: PERRLA,hearing grossly normal Pulm: resp unlabored Neck: supple, trachea midline Neuro exam of the upper extremities: Absent left triceps reflex, decreased left elbow extension to 3 out of 5 and decreased left wrist flexion 4 out of 5. The rest of the exam of the upper extremities is within normal limits Straight leg raising test: Jose's test: Range of motion of the lumbar spine: Facet loading test: Tenderness in the paravertebral musculature: Positive in the cervical and upper thoracic paravertebral musculature more on the left side of the spine than the right side. Neuro: CN II-XII grossly intact, Imaging: Reviewed in EMR/chart Assessment: Chronic low back pain secondary to lumbar degenerative disc disease , lumbar spondylosis with facet arthropathy without myelopathy Upper back pain secondary to myofascial pain syndrome and cervical area. And cervical dystonia Midback pain secondary to thoracic herniated disc disease Severe muscle spasm with undetermined etiology Left cervical radiculopathy and increasing weakness in the left arm chronic and current use of high-risk medication (Opioids). The patient was counseled about risk of opioid use, psychological risk associated with opioids and was orally counseled to not overuse , divert,or sell dictations to take medications as prescribed only , and to restore medication in safe location , the patient counseled against driving while using narcotic medications, and also not to use alcohol or any illicit recreational drugs, patient's verbalized understanding that the lack of compliance will result in failure to renew narcotic prescription and possible discharge from the clinic - diagnoses, prognosis, and treatment options including but not limited to physical therapy, surgical interventions, interventional therapies , Plan: 1. Explanation: When patients on opioids, opioid and psychological risk scores were reviewed. Diagnoses, prognoses, and multiple treatment options including but not limited to physical therapy, interventional therapies, adjuvant medical therapies, narcotic medication therapies, and surgery were discussed with the patient and all questions were answered to the patient's satisfaction. 2. Opioid agreement:When patients are prescribed opoids through our clinic, opioid agreement is signed with the patient and the patient is warned not to use opioids while driving or before driving and not to combine opioids with benzodiazepines or alcohol. 3. Counseling: When patient is smoking or obese, the patient was counseled extensively on SMOKING CESSATION, BODY MASS INDEX, EXERCISE. Specifically, the patient was instructed regarding the importance of smoking cessation, obesity, and exercise in the context of both chronic pain and overall health. 4. Procedures: None for now 5. Consultations: None 6. Investigations: I will send the patient to have cervical and thoracic spine MRI without contrast. 7. Medications: Continue [place] 7 mg every 6 hours when necessary pain #120 pills with no refills, DC Robaxin and start Flexeril 10 mg twice a day. 8. Disposition: Return to clinic in 4 weeks 9. Maps were reviewed and were appropriate. PQRS measures: 1-Patient's medications are documented in the chart. 2-Tobacco use is negative, counseling given 3-Patient has had a pneumococcal vaccine. 4-Advanced care planning discussed, patient unable to give 5-Opioid contract signed with the patient. 6-Pain positive, follow-up visit or procedure scheduled 7-Patient's blood pressure measured and documented above limits. The patient will follow up with his primary care physician. 8-Patient's weight was measured, and body mass index ABOVE the normal limits, and counseling was done. Patient instructed to follow up with PCP. 9-Patient WAS NOT identified as an unhealthy alcohol user. Controlled Substance Measures Is patient prescribed a controlled substance at discharge?: Yes When asked, does pt state using other controlled substances?: No If prescribed controlled substance>3 days was MAPS reviewed?: Yes If Rx opioid, was Start Talking consent form obtained?: Yes If opioid is for acute pain is fill amount 7 days or less?: No Was information provided regarding opioid addiction?: Yes
== END ==
LOC: PNWHC3 08:10
PROVIDERS: ATTEND Anesthesiology
DX: M51.36 Other intervertebral disc degeneration, lumbar region (principal); M47.816 Spondylosis without myelopathy or radiculopathy, lumbar region; M79.18 Myalgia, other site; G89.29 Other chronic pain; G24.3 Spasmodic torticollis; M51.24 Other intervertebral disc displacement, thoracic region; M54.12 Radiculopathy, cervical region; Z79.891 Long term (current) use of opiate analgesic
CPT/HCPCS: 80307; G0482; G0463; 99212

== ENCOUNTER → 2021-03-08 | Outpatient (CLI) | payer MEDICARE, OTHER ==
[2021-03-08 08:55] VITALS: BP 124/69; PULSE 109; RESP 18; TEMP 98.6
--- NOTE | 2021-03-08 09:26 | P.PN ---
Subjective Progress Note Date: 03/08/21 This is a follow-up visit for this [id number] female. She has been diagnosed with occipital neuralgia, and lumbar spondylosis also patient had cervical dystonia, low back pain and mid back pain and neck pain, ,Today, her pain is primarily located in the bilateral neck, radiating to lateral head, left greater than right side. This is associated with left hand spasms. Recently we ordered MRI of the cervical and thoracic spine and is scheduled to be done soon, She also continues to have hip pain and weakness. She is continuing to get Botox injections with her neurologist to manage her muscular dystonia. Pain is rated as 7/10 today,the pain is constant, throbbing, aching, sharp. Pain is worse with upright position, sitting, worse of the day progresses and better with laying down, medications. She continues to use flexeril 10 milligrams twice a day which is helping more than Zanaflex, and she use [place] 7.5/625 every 6 hours when necessary. These medications are helping control her pain, she continued to have significant cervical muscle spasm 1-Constitutional : Cooperative , not in acute distress . 2-HEENT : nech ; supple , no Lymphadenopathy , no Thyromegaly , normal thyroid size . eyes : no ptosis , no icterus, no photophobia . ENT : normal of hearing , normal oropharynx . . 3- Musculoskeltal : exams of the cervical spine = motor strength normal bilateral upper extremities facet loading test cervical area positive. Multiple trigger points in the cervical paravertebral muscles rhomboid and trapezius muscles examined more than the left side Positive facet loading test cervical area and thoracic area and lumbar area Assessment and plan = Chronic low back pain secondary to lumbar degenerative disc disease , lumbar spondylosis with facet arthropathy without myelopathy Upper back pain secondary to myofascial pain syndrome and cervical area. And cervical dystonia Thoracic spondylosis Midback pain secondary to thoracic herniated disc disease Severe muscle spasm with undetermined etiology chronic and current use of high-risk medication (Opioids). The patient was counseled about risk of opioid use, psychological risk associated with opioids and was orally counseled to not overuse , divert,or sell dictations to take medications as prescribed only , and to restore medication in safe location , the patient counseled against driving while using narcotic medications, and also not to use alcohol or any illicit recreational drugs, patient's verbalized understanding that the lack of compliance will result in failure to renew narcotic prescription and possible discharge from the clinic - diagnoses, prognosis, and treatment options including but not limited to physical therapy, surgical interventions, interventional therapies , and medication management including narcotics and adjuvant medication were discussed with the patient and all the questions answered Prescript refill for, [place] 7.5/325 dispense 120 with one refill, increase Flexeril 10 mg every 8 hours dispense 90, MAPS reviewed and is appropriate. UDS was OK - PQRS measures = - Patient's medications are documented in the chart. -Tobacco use is negative and counseling.Given. -Patient's has received pneumococcal vaccine. -Advanced care planning discussed, patient not eligible. -Opiate contract signed. -Pain positive and follow-up visit/procedure is scheduled. -Patient's blood pressure measured [ 124/69] , and documented in the record ,and patient will follow up with the primary care. -Patient's weight was measured and body mass index [ 27.4 ] above the normal limits and counseling was done. and patient instructed to follow-up with the primary care physician. -Patient was not identified as an unhealthy alcohol user Objective - Vital Signs Vital signs: Vital Signs Temp 98.6 F 03/08/21 08:50 Pulse 109 H 03/08/21 08:50 Resp 18 03/08/21 08:50 BP 124/69 03/08/21 08:50 Pulse Ox 98 03/08/21 08:50
== END ==
LOC: PNWHC3 08:41
PROVIDERS: ATTEND Specialist
DX: M51.36 Other intervertebral disc degeneration, lumbar region (principal); M47.816 Spondylosis without myelopathy or radiculopathy, lumbar region; M79.18 Myalgia, other site; G24.3 Spasmodic torticollis; M47.814 Spondylosis without myelopathy or radiculopathy, thoracic region; G89.29 Other chronic pain; M51.24 Other intervertebral disc displacement, thoracic region; M62.838 Other muscle spasm; Z79.891 Long term (current) use of opiate analgesic
CPT/HCPCS: 99211

== ENCOUNTER → 2021-03-10 | Outpatient (CLI) | payer MEDICARE, OTHER ==
--- NOTE | 2021-03-11 05:02 | MR ---
EXAMINATION TYPE: MR cspine/tspine wo con DATE OF EXAM: 03/10/2021 COMPARISON: 11/14/2017 and 11/19/2017 HISTORY: Neck pain; Disc displacement Multiplanar multiecho imaging of the cervical and thoracic spine without contrast. Cervical spine Cervical vertebra have normal alignment. Disc spaces are fairly normal. There is no evidence of any s ignificant cervical disc herniation. Brainstem is intact. Skull base is intact. Facet joints are inta ct. Cervical spinal cord has normal signal pattern. There is no edema. I see no significant spinal st enosis. There is some facet arthropathy at C5-6 with mild impingement on the posterior aspect of the cervical cord. Spinal canal measures 8 mm at C5-6 which is the narrowest point. IMPRESSION: Mild spurring posteriorly at C5-6 which is increased slightly compared to old exam. No significant sp inal stenosis. No fracture. Thoracic spine. Thoracic vertebra have normal alignment. Disc spaces are overall fairly normal. There is a small post erior disc herniation at T7-T8 and T8-T9. There is developmentally adequate spinal canal. There is no spinal stenosis. There is also small posterior disc bulge at T10-11. Thoracic spinal cord shows norm al signal pattern. There is no edema. There is no sign of thoracic paraspinal mass. IMPRESSION: Mild multilevel posterior thoracic disc bulging without any significant spinal stenosis. No fracture. No significant change compared to old exam.
== END | disposition home or self-care (01) ==
LOC: RADMRIMAIN 17:02
PROVIDERS: ATTEND Anesthesiology
DX: M47.812 Spondylosis without myelopathy or radiculopathy, cervical region (principal)
CPT/HCPCS: 72141; 72146

== ENCOUNTER → 2021-05-03 | Outpatient (CLI) | payer MEDICARE, OTHER ==
[2021-05-03 08:13] VITALS: BP 135/90; PULSE 96; RESP 18; TEMP 98.8
--- NOTE | 2021-05-03 12:12 | P.PN ---
Subjective Progress Note Date: 05/03/21 This is a follow-up visit for this [id number] female. She has been diagnosed with occipital neuralgia, and lumbar spondylosis also patient had cervical dystonia, ,low back pain and mid back pain and neck pain, also patient complaining of severe spasm in the cervical area, in the upper and lower extremi ty, She also continues to have hip pain and weakness. She is continuing to get Botox injections with her neurologist to manage her muscular dystonia. Pain is rated as 7/10 today,the pain is constant, throbbing, aching, sharp. Pain is worse with upright position, being in the same position for few minutes ,increase her pain . She continues to use flexeril 10 milligrams 36 hours when necessary , and she use [place] 7.5/625 every 6 hours when necessary. These medications are helping control her pain, she continued to have significant cervical muscle spasm 1-Constitutional : Cooperative , not in acute distress . 2-HEENT : nech ; supple , no Lymphadenopathy , no Thyromegaly , normal thyroid size . eyes : no ptosis , no icterus, no photophobia . ENT : normal of hearing , normal oropharynx . . 3- Musculoskeltal : exams of the cervical spine = motor strength normal bilateral upper extremities facet loading test cervical area positive. Multiple trigger points in the cervical paravertebral muscles rhomboid and trapezius muscles examined more than the left side Positive facet loading test cervical area and thoracic area and lumbar area Assessment and plan = Chronic low back pain secondary to lumbar degenerative disc disease , lumbar spondylosis with facet arthropathy without myelopathy Upper back pain secondary to myofascial pain syndrome and cervical area. And cervical dystonia Thoracic spondylosis Midback pain secondary to thoracic herniated disc disease Severe muscle spasm with undetermined etiology chronic and current use of high-risk medication (Opioids). The patient was counseled about risk of opioid use, psychological risk associated with opioids and was orally counseled to not overuse , divert,or sell dictations to take medications as prescribed only , and to restore medication in safe location , the patient counseled against driving while using narcotic medications, and also not to use alcohol or any illicit recreational drugs, patient's verbalized understanding that the lack of compliance will result in failure to renew narcotic prescription and possible discharge from the clinic - diagnoses, prognosis, and treatment options including but not limited to physical therapy, surgical interventions, interventional therapies , and medication management including narcotics and adjuvant medication were discussed with the patient and all the questions answered Prescript refill for, Jones 7.5/325 dispense 120 with one refill, increase Flexeril 10 mg every 8 hours dispense 90, MAPS reviewed and is appropriate. UDS was OK - PQRS measures = - Patient's medications are documented in the chart. -Tobacco use is negative and counseling.Given. -Patient's has received pneumococcal vaccine. -Advanced care planning discussed, patient not eligible. -Opiate contract signed. -Pain positive and follow-up visit/procedure is scheduled. -Patient's blood pressure measured [ 135/90] , and documented in the record ,and patient will follow up with the primary care. -Patient's weight was measured and body mass index [ 27.4 ] above the normal limits and counseling was done. and patient instructed to follow-up with the primary care physician. -Patient was not identified as an unhealthy alcohol user Objective - Vital Signs Vital signs: Vital Signs Temp 98.8 F 05/03/21 08:09 Pulse 96 05/03/21 08:09 Resp 18 05/03/21 08:09 BP 135/90 05/03/21 08:09 Pulse Ox Intake & Output 05/02/21 05/03/21 05/03/21 18:59 06:59 18:59 Weight 70.307 kg
--- NOTE | 2021-05-03 12:21 | P.PN ---
Progress Note - Text Progress Note Date: 05/03/21 To Whom It May Concern= Patient Josephine Delgado,is getting treatment at [facility] pain clinic, she is Diagnosed with cervical dystonia, occipital neuralgia, and lumbar spondylosis, she had frequent episodes of ,severe muscle spasm in the cervical area, and in the upper extremity, the muscle spasm, severe intense ,frequent ,and the frequency of the muscles spasm increase ,if she stays in the sitting position, and she is currently getting treatment with medication Gary and Flexeril ( muscle relaxant ), and she is getting Botox injection by her neurologist, to alleviate the muscle spasm.
== END ==
LOC: PNWHC3 07:42
PROVIDERS: ATTEND Specialist
DX: G89.29 Other chronic pain (principal); M51.36 Other intervertebral disc degeneration, lumbar region; M47.816 Spondylosis without myelopathy or radiculopathy, lumbar region; G24.3 Spasmodic torticollis; M47.814 Spondylosis without myelopathy or radiculopathy, thoracic region; M51.34 Other intervertebral disc degeneration, thoracic region; M62.838 Other muscle spasm; Z79.891 Long term (current) use of opiate analgesic
CPT/HCPCS: 99211

== ENCOUNTER 2021-06-14 10:45 | Emergency (ER) | payer MEDICARE, OTHER ==
--- NOTE | 2021-06-14 11:48 | XR ---
EXAMINATION TYPE: XR chest 2V DATE OF EXAM: 06/14/2021 COMPARISON: NONE TECHNIQUE: PA and lateral views submitted. HISTORY: Cough, shortness of breath and weakness FINDINGS: The lungs are clear and there is no pneumothorax, pleural effusion, or focal pneumonia. Heart size is normal. There is no overt failure. Hypertrophic and degenerative changes of the spine. IMPRESSION: 1. No acute process.
--- NOTE | 2021-06-14 11:48 | ED ---
General Adult HPI - General Chief complaint: Upper Respiratory Infection Stated complaint: covid+, increased SOB Time Seen by Provider: 06/14/21 11:02 Source: patient, RN notes reviewed Mode of arrival: ambulatory Limitations: no limitations - History of Present Illness Initial comments: This a 40-year-old female presents emergency Department chief complaint of COVID-19. Patient states that symptoms started recent tested positive at home. Patient states that she's having some increasing shortness of breath only when she lays down. Patient does complain of severe body aches, nasal congestion, cough which is minimally productive. Patient states she does not feel short of breath if she is upright. She does admit that she has asthma and multiple health issues. - Related Data Home Medications Medication Instructions Recorded Confirmed Medroxyprogesterone Acetate 150 mg IM Q84D 07/10/18 05/03/21 [Depo-Provera] Omalizumab [Xolair] 300 mg SQ QMONTHLY 07/10/18 05/03/21 traZODone HCL 100 mg PO HS 07/09/19 05/03/21 PARoxetine [Paxil] 20 mg PO HS 12/18/19 05/03/21 Fluticasone Propionate [Flovent 1 puff INHALATION 06/13/20 05/03/21 Hfa 220 mcg] RT-DAILY@0700,2000 Loratadine [Claritin] 10 mg PO DAILY 06/13/20 05/03/21 SUMAtriptan SUCCINATE [Imitrex] 100 mg PO DIRECTED PRN 06/13/20 05/03/21 Botox Neck Injection 325 mg SQ Q70D 08/30/20 05/03/21 Cholecalciferol [Vitamin D3 (25 125 mcg PO DAILY 08/30/20 05/03/21 Mcg = 1000 Iu)] Albuterol Sulfate [Ventolin HFA] 2 puff INHALATION RT-Q6H PRN 09/30/20 05/03/21 Cyanocobalamin (Vitamin B-12) 3,000 mcg PO DAILY 09/30/20 05/03/21 [Vitamin B-12] Methylphenidate HCl [Concerta] 36 mg PO DAILY 09/30/20 05/03/21 levalbuterol HCL 0.63 mg INHALATION RT-QID PRN 09/30/20 05/03/21 Levothyroxine Sodium 125 mcg PO SUTUTHSA 12/13/20 05/03/21 Levothyroxine Sodium 112 mcg PO MOWEFR 02/02/21 05/03/21 Previous Rx's Medication Instructions Recorded HYDROcodone/APAP 7.5-325MG [[place] 1 tab PO Q6H PRN 30 Days #120 tab 03/08/21 7.5-325] Cyclobenzaprine [Flexeril] 10 mg PO Q6H PRN 30 Days #120 tab 05/03/21 HYDROcodone/APAP 7.5-325MG [[place] 1 tab PO Q6H PRN 30 Days #120 tab 05/03/21 7.5-325] HYDROcodone/APAP 7.5-325MG [[place] 1 tab PO Q6HR PRN 30 Days #120 tab 05/03/21 7.5-325] Allergies Allergy/AdvReac Type Severity Reaction Status Date / Time No Known Allergies Allergy Verified 06/14/21 10:53 Review of Systems ROS Statement: Those systems with pertinent positive or pertinent negative responses have been documented in the HPI. ROS Other: All systems not noted in ROS Statement are negative. Past Medical History Past Medical History: Asthma, Pneumonia Additional Past Medical History / Comment(s): TACHYCARDIA, peptic ulcers, anemia."HAS BEEN ON VENTILATOR IN PAST D/T SEVERE ASTHMA ATTACK," BULEMIA-STATES GETTING BETTER, CONSTIPATION. HERNIATED DISC, cervical cancer. 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 recent antibiotoc for infection in arm-now resolved per pt, COVID 12/30/20 History of Any Multi-Drug Resistant Organisms: MRSA Date of last positivie culture/infection: unknown MDRO Source:: rt Groin Past Surgical History: Bariatric Surgery, Cholecystectomy, Joint Replacement, Orthopedic Surgery, Tonsillectomy Additional Past Surgical History / Comment(s): Tilt table test, lap band 2007; NASAL FX REPAIR , ORIF LT ELBOW X2, PAIN PROCEDURES for migraines. Surgery on her cervix for cancer, rt foot surgery(Fx), cysto/lithotripsy , left hip replacement 12/2018, lumbar puncture, cervical biopsy in August @[facility], bone tumor removal Past Anesthesia/Blood Transfusion Reactions: Postoperative Nausea & Vomiting (PONV) Past Psychological History: Anxiety, Depression Smoking Status: Never smoker Past Alcohol Use History: None Reported Past Drug Use History: None Reported - Past Family History Mother Family Medical History: Pneumonia Additional Family Medical History / Comment(s): Mother of pneumonia. Patient's son of brain cancer, last mother and father both liver cancer Son(s) Family Medical History: Cancer Additional Family Medical History / Comment(s): Son of brain cancer. Father Family Medical History: Cancer Additional Family Medical History / Comment(s): Liver Cancer. General Exam Limitations: no limitations General appearance: alert, in no apparent distress Head exam: Present: atraumatic, normocephalic, normal inspection Eye exam: Present: normal appearance, PERRL, EOMI. Absent: scleral icterus, conjunctival injection, periorbital swelling ENT exam: Present: normal exam, normal oropharynx, mucous membranes moist, TM's normal bilaterally Neck exam: Present: normal inspection. Absent: tenderness, meningismus, lymphadenopathy Respiratory exam: Present: normal lung sounds bilaterally. Absent: respiratory distress, wheezes, rales, rhonchi, stridor Cardiovascular Exam: Present: normal rhythm, tachycardia, normal heart sounds. Absent: systolic murmur, diastolic murmur, rubs, gallop, clicks GI/Abdominal exam: Present: soft, normal bowel sounds. Absent: distended, tenderness, guarding, rebound, rigid Course Vital Signs 06/14/21 06/14/21 10:47 11:40 Temperature 98.2 F Pulse Rate 113 H Respiratory 18 18 Rate Blood Pressure 133/95 O2 Sat by Pulse 99 Oximetry Medical Decision Making - Medical Decision Making patient x-ray is unremarkable. Patient will receive monoclonal antibodies will be discharged in stable condition return parameters were discussed. - Lab Data Lab Results 06/14/21 Range/Units 11:33 Coronavirus (PCR) Detected A (Not Detectd) Disposition Clinical Impression: COVID-19 Disposition: HOME SELF-CARE Condition: Stable Instructions (If sedation given, give patient instructions): Coronavirus Disease 2019 (COVID-19) Additional Instructions: Please return to the Emergency Department if symptoms worsen or any other concerns. Is patient prescribed a controlled substance at d/c from ED?: No Referrals: Slade Gonzalez MD [Primary Care Provider] - 1-2 days Time of Disposition: 12:23
[2021-06-14] MEDS ORDERED: HYDROcodone/APAP 10-325MG 1 EACH TAB PO ONE (12:28)
[2021-06-14] MEDS ORDERED: SODIUM CHLORIDE 0.9% 50 ML IVPB ONE (12:45)
[2021-06-14] MEDS ORDERED: BAMLANIVIMAB (EUA) 700 MG, ETESEVIMAB (EUA) 1,400 MG in SODIUM CHLORIDE 0.9% 100 ML IVPB ONE (13:00)
[2021-06-14 14:13] VITALS: RESP 16
[2021-06-14 14:35] VITALS: BP 136/80; PULSE 100; TEMP 97.8
== END 2021-06-14 14:35 | disposition home or self-care (01) ==
LOC: EC 10:45
DX: U07.1 COVID-19 (principal); J45.909 Unspecified asthma, uncomplicated; Z79.51 Long term (current) use of inhaled steroids
CPT/HCPCS: 87635; 71046; 99285; J3490

== ENCOUNTER → 2021-06-28 | Outpatient (CLI) | payer MEDICARE, OTHER ==
--- NOTE | 2021-06-28 08:38 | P.PN ---
Subjective Progress Note Date: 06/28/21 Principal diagnosis: A 40 yr old female with a history of severe and chronic neck & low back pain secondary to cervical facet arthropathy, lumbar degenerative disc diseases and facet arthropathy presents today for medication refills. Pain level is 7 out of 10 in the neck and lower back area, dull/ achy with sharp/ shooting towards the left side of her neck left shoulder and bilateral hips. Pain is provoked by bending lifting and staying sedentary. Pain is alleviated with medications, topicals, botox injections, heat, physical therapy 2 years ago, home exercise regimen, use of a TENS device and repositioning. Patient is currently on [place] 7.5/ 325mg TID prn and Flexeril 5mg 2 tabs TID prn Patient denies any side effects of the medication(s), denies excessive drowsiness or sleepiness, denies suicidal ideation and reports that the current pain medication is helping to control the pain and improve activities of daily living. Patient denies any motor or sensory deficits. Patient denies any fever or night sweats, denies any change in the bowel movements or urination. Physical Examination: -Constitutional: Cooperative. Not in acute distress . -HEENT: Neck is supple. No lymphadenopathy. No thyromegaly. Normal thyroid size. Eyes: No ptosis , no icterus, no photophobia. ENT: No auditory deficits. Normal oropharynx. No Thrush. - Respiratory: Chest clear to auscultations bilaterally. No wheezing. No rhonchi. - Cardiovascular: Regular rate and rhythm. S1 / S2 , no S3 , no S4. - Gastrointestinal: Abdomen soft no tenderness. Bowel sounds positive in all four quadrants. No organomegaly. - Genitourinary: Deferred. - Neurologic: Cranial nerve II to XII intact. No focal neurological deficits. - Psychatric: Alert & oriented x 3. Matching mood & appropriate affect. Judgment and insight intact. - Lymphatic: No Lymphadenopathy. - Musculoskeletal: Cervical spine: Muscle bulk in the bilateral upper extremities normal. Left cervical paraspinal spasms noted No right lateral flexion, left lateral flexion <20 degrees Limited cervical rotation due to spasms Spurling test postive Distraction test positive Facet loading test cervical area positive. Lumbar spine: Motor bulk/ tone/ strength lower extremities , thigh and legs : 5/5 Deep tendon reflexes : Normal Knee Jerk. Normal Ankle Jerk . Vertebral body tenderness to palpation over L3, L4, L5 Lumbar Facet Loading Test positive over L4-L5 bilaterally Straight Leg Raise: positive at 30 degree right side/ left side Mary test: positive right side / left side Range of motion: Range of motion in flexion of the lumbar spine <60 degrees Range of motion: Extension of the lumbar spine <20 degrees Severe tenderness over the Sacroiliac joint: right side / left side Assessment and plan: Chronic low back pain secondary to lumbar degenerative disc disease , lumbar spondylosis with facet arthropathy without myelopathy Urine collected for UDS Chronic and current use of high-risk medication (Opioids). The patient was counseled about risk of opioid use, psychological risk associated with opioids and was orally counseled to not overuse , divert or sell medications. Pt is to store medication in a safe location. The patient is counseled against driving while using narcotic medications and also not to use alcohol or any illicit recreational drugs. Patient verbalized understanding that the lack of compliance will result in failure to renew narcotic prescription(s) as well as possible discharge from the clinic Diagnoses, prognosis and treatment options including but not limited to physical therapy, surgical interventions, interventional therapies and medication management including narcotics and adjuvant medication were discussed. All patient questions answered MAPS reviewed and it was appropriate. Prescription refill for [place] 7.5mg TID prn #90 with refill, Flexril 5mg 2 tabs TID prn #180 with refill I have spent 31 minutes on patient care today. Dr Kelly was available by jessica friedman for the evaluation of this patient. The time was used to review the medical records including relevant urine studies and Prescription history (MAPs), review of the available imaging, evaluation and examination of the patient, coordination of care with the medical staff and if applicable referring physicians, as well as creation of the medical record PQRS Measure Charge Sheet - Pain Location Neck Non-Pharmacological Interventions: Heat, Ice PQRS Narrative: Smoking Status Never smoker Narcotic Agreement Date Signed 02/08/21 Pain Intensity [Neck] 6 Scale Used Numeric (1 - 10) Hx Alcohol Use (MH) No Home Medications: Ambulatory Orders Medroxyprogesterone Acetate [Depo-Provera] 150 mg IM Q84D 07/10/18 Omalizumab [Xolair] 300 mg SQ QMONTHLY 07/10/18 traZODone HCL 100 mg PO HS 07/09/19 PARoxetine [Paxil] 20 mg PO HS 12/18/19 Fluticasone Propionate [Flovent Hfa 220 mcg] 1 puff INHALATION RT- DAILY@699,199906/13/20 Loratadine [Claritin] 10 mg PO DAILY 06/13/20 SUMAtriptan SUCCINATE [Imitrex] 100 mg PO DIRECTED PRN 06/13/20 Botox Neck Injection 325 mg SQ Q70D 08/30/20 Cholecalciferol [Vitamin D3 (25 Mcg = 1000 Iu)] 125 mcg PO DAILY 08/30/20 Albuterol Sulfate [Ventolin HFA] 2 puff INHALATION RT-Q6H PRN 09/30/20 Cyanocobalamin (Vitamin B-12) [Vitamin B-12] 3,000 mcg PO DAILY 09/30/20 Methylphenidate HCl [Concerta] 36 mg PO DAILY 09/30/20 levalbuterol HCL 0.63 mg INHALATION RT-QID PRN 09/30/20 Levothyroxine Sodium 125 mcg PO SUTUTHSA 12/13/20 Levothyroxine Sodium 112 mcg PO MOWEFR 02/02/21 HYDROcodone/APAP 7.5-325MG [[place] 7.5-325] 1 tab PO Q6H PRN 30 Days #120 tab 03/08/21 Cyclobenzaprine [Flexeril] 10 mg PO Q6H PRN 30 Days #120 tab 05/03/21
[2021-06-28 09:18] VITALS: BP 119/84; PULSE 111; RESP 18; TEMP 98.6
== END ==
LOC: PNWHC3 07:57
PROVIDERS: ATTEND Physician Assistant Medical
DX: G89.29 Other chronic pain (principal); M51.36 Other intervertebral disc degeneration, lumbar region; M47.816 Spondylosis without myelopathy or radiculopathy, lumbar region; Z79.891 Long term (current) use of opiate analgesic
CPT/HCPCS: 99211

== ENCOUNTER → 2021-08-23 | Outpatient (CLI) | payer MEDICARE, OTHER ==
[2021-08-23 08:37] VITALS: BP 126/85; PULSE 97; RESP 18; TEMP 97.8
--- NOTE | 2021-08-23 08:44 | P.PN ---
Subjective Progress Note Date: 08/23/21 Principal diagnosis: A 40 yr old female with a history of severe and chronic neck pain secondary to cervical degenerative disc diseases and spondylosis with facet arthropathy presents today for medication refills. Pain level is currently at 5 out of 10 in intensity, sharp, shooting from the base of the neck to the left and right sides of the back of the head, right greater than left with bilateral upper extremity pain. Pain escalates as high as 8 out of 10 with extension of the head. Pain is alleviated with medications, topicals, G.O.N. and botox injections, alternating ice and heat, physical therapy the past, chiropractic treatment in the past, home-based stretching regimen twice a day, use of a cane for ambulation, massage therapy in the past, laying supine and rest. Patient is receptive side of restarting physical therapy for the cervical spine. She is awaiting an upcoming botox injection for the head/ neck pain also at an outside facility. Interventional pain procedures completed include G.O.N. injections Patient is currently on [place] 7.5/325mg #120 and Flexeril prn Patient denies any side effects of the medication(s), denies excessive drowsiness or sleepiness, denies suicidal ideation and reports that the current pain medication is helping to control the pain and improve activities of daily living. Patient denies any motor or sensory deficits. Patient denies any fever or night sweats, denies any change in the bowel movements or urination. Physical Examination: -Constitutional: Cooperative. Not in acute distress . -HEENT: Neck is supple. No lymphadenopathy. No thyromegaly. Normal thyroid size. Eyes: No ptosis , no icterus, no photophobia. ENT: No auditory deficits. Normal oropharynx. No Thrush. - Respiratory: Chest clear to auscultations bilaterally. No wheezing. No rhonchi. - Cardiovascular: Regular rate and rhythm. S1 / S2 , no S3 , no S4. - Gastrointestinal: Abdomen soft no tenderness. Bowel sounds positive in all four quadrants. No organomegaly. - Genitourinary: Deferred. - Neurologic: Cranial nerve II to XII intact. No focal neurological deficits. - Psychatric: Alert & oriented x 3. Matching mood & appropriate affect. Judgment and insight intact. - Lymphatic: No Lymphadenopathy. - Musculoskeletal: Cervical spine: Muscle bulk/ tone/ strength in the bilateral upper extremities normal. Facet loading test cervical area positive. Lumbar spine: Motor bulk/ tone/ strength lower extremities , thigh and legs : 5/5 Deep tendon reflexes : Normal Knee Jerk. Normal Ankle Jerk . Vertebral body tenderness to palpation over Lumbar Facet Loading Test positive Straight Leg Raise: positive at 30 degrees right side/ left side Gaenslen's Test positive Sacral spine : Severe tenderness over the Sacroiliac joint: right side / left side Range of motion: Flexion of the lumbar spine <60 degrees Range of motion: Extension of the lumbar spine <20 degrees Gaenslen's Test positive Mary test: positive right side / left side Assessment and plan: Chronic neck pain secondary to cervical degenerative disc disease , spondylosis with facet arthropathy without myelopathy PT 3x/ wk x 6 weeks re: cervical facet arthropathy Recommendation of BL G.O.N. injection. May need a series of injections, up to 3 within a six-month period, to obtain optimal pain relief. Risks, benefits of procedure discussed and patient verbalized understanding. Denies anticoagulant use. Denies medical history of diabetes. Chronic and current use of high-risk medication (Opioids). The patient was counseled about risk of opioid use, psychological risk associated with opioids and was orally counseled to not overuse , divert or sell medications. Pt is to store medication in a safe location. The patient is counseled against driving while using narcotic medications and also not to use alcohol or any illicit recreational drugs. Patient verbalized understanding that the lack of compliance will result in failure to renew narcotic prescription(s) as well as possible discharge from the clinic Diagnoses, prognosis and treatment options including but not limited to physical therapy, surgical interventions, interventional therapies and medication management including narcotics and adjuvant medication were discuss ed. All patient questions answered MAPS reviewed and it was appropriate. Prescription refill for [place] 7.5/325mg #120 and Flexeril prn w refill. I have spent 31 minutes on patient care today. Dr Kelly was available by phone for the evaluation of this patient. The time was used to review the medical records including relevant urine studies and Prescription history (MAPs), review of the available imaging, evaluation and examination of the patient, coordination of care with the medical staff and if applicable referring physicians, as well as creation of the medical record Objective - Vital Signs Vital signs: Vital Signs Temp 97.8 F 03/30/22 08:31 Pulse 97 08/23/21 08:31 Resp 18 08/23/21 08:31 BP 126/85 08/23/21 08:31 Pulse Ox 99 08/23/21 08:31 PQRS Measure Charge Sheet Mode of Arrival: Ambulatory - Pain Location Neck Non-Pharmacological Interventions: Chiropractic Treatment, Heat, Home Exercise, Ice, Inactivity, Massage, Physical Therapy, Position/Reposition, Stretching Pharmacological Interventions: Block, PRN Medication, Scheduled Medication, Topical Medication Lower Back Non-Pharmacological Interventions: Stretching, TENS Unit PQRS Narrative: Smoking Status Never smoker Narcotic Agreement Date Signed 02/08/21 Blood Pressure 126/85 Pain Intensity [Lower Back] 5 Pain Intensity [Neck] 5 Scale Used Numeric (1 - 10) Hx Alcohol Use (MH) No Home Medications: Ambulatory Orders Medroxyprogesterone Acetate [Depo-Provera] 150 mg IM Q84D 07/10/18 Omalizumab [Xolair] 300 mg SQ QMONTHLY 07/10/18 traZODone HCL 100 mg PO HS 07/09/19 PARoxetine [Paxil] 20 mg PO HS 12/18/19 Fluticasone Propionate [Flovent Hfa 220 mcg] 1 puff INHALATION RT- DAILY@0700,199906/13/20 Loratadine [Claritin] 10 mg PO DAILY 06/13/20 SUMAtriptan SUCCINATE [Imitrex] 100 mg PO DIRECTED PRN 06/13/20 Botox Neck Injection 325 mg SQ Q70D 08/30/20 Cholecalciferol [Vitamin D3 (25 Mcg = 1000 Iu)] 125 mcg PO DAILY 08/30/20 Albuterol Sulfate [Ventolin HFA] 2 puff INHALATION RT-Q6H PRN 09/30/20 Methylphenidate HCl [Concerta] 36 mg PO DAILY 09/30/20 levalbuterol HCL 0.63 mg INHALATION RT-QID PRN 09/30/20 Levothyroxine Sodium 125 mcg PO SUTUTHSA 12/13/20 Levothyroxine Sodium 112 mcg PO MOWEFR 02/02/21 Cyclobenzaprine [Flexeril] 10 mg PO Q6H PRN 30 Days #120 tab 08/23/21 HYDROcodone/APAP 7.5-325MG [[place] 7.5-325] 1 tab PO Q6H PRN 30 Days #120 tab 08/23/21 HYDROcodone/APAP 7.5-325MG [[place] 7.5-325] 1 tab PO Q6H PRN 30 Days #120 tab 08/23/21
== END ==
LOC: PNWHC3 07:50
PROVIDERS: ATTEND Anesthesiology
DX: M50.30 Other cervical disc degeneration, unspecified cervical region (principal); M47.812 Spondylosis without myelopathy or radiculopathy, cervical region; G89.29 Other chronic pain; Z79.891 Long term (current) use of opiate analgesic
CPT/HCPCS: 99211

== ENCOUNTER → 2021-10-18 | Outpatient (CLI) | payer MEDICARE, OTHER ==
[2021-10-18 08:01] VITALS: BP 113/80; PULSE 100; RESP 14; TEMP 98.1
--- NOTE | 2021-10-18 08:03 | P.PN ---
Subjective Progress Note Date: 10/18/21 Principal diagnosis: A 40 yr old female with a history of severe and chronic neck pain secondary to degenerative disc diseases and spondylosis with facet arthropathy presents today to reschedule bilateral greater occipital nerve blocks and medication refills. Pain level is currently at 6 out of 10 in intensity, dull, achy in the mid to lower aspects of the cervical spine with radiation of pain up the head and scalp to the forehead as well as to the shoulders bilaterally. Pain is accompanied with occasional paraspinal muscle spasms and provoked by extension, rotation and lateral flexion. Pain is alleviated with medications, injections, ice, heat, use of a soft c-collar, repositioning, physical therapy past, home stretching regimen and rest. Interventional pain procedures completed include BL G.O.N., L lumbar RFA Patient is currently on [place] & Flexeril Patient denies any side effects of the medication(s), denies excessive drowsiness or sleepiness, denies suicidal ideation and reports that the current pain medication is helping to control the pain and improve activities of daily living. Patient denies any motor or sensory deficits. Patient denies any fever or night sweats, denies any change in the bowel movements or urination. Physical Examination: -Constitutional: Cooperative. Not in acute distress . -HEENT: Neck is supple. No lymphadenopathy. No thyromegaly. Normal thyroid size. Eyes: No ptosis , no icterus, no photophobia. ENT: No auditory deficits. Normal oropharynx. No Thrush. - Respiratory: Chest clear to auscultations bilaterally. No wheezing. No rhonchi. - Cardiovascular: Regular rate and rhythm. S1 / S2 , no S3 , no S4. - Gastrointestinal: Abdomen soft no tenderness. Bowel sounds positive in all four quadrants. No organomegaly. - Genitourinary: Deferred. - Neurologic: Cranial nerve II to XII intact. No focal neurological deficits. - Psychatric: Alert & oriented x 3. Matching mood & appropriate affect. Judgment and insight intact. - Lymphatic: No Lymphadenopathy. - Musculoskeletal: Cervical spine: Muscle bulk/ tone/ strength in the bilateral upper extremities normal +BL ABDIRASHID TTP Vertebral body tenderness to palpation over Facet loading test positive Thoracic spine Muscle bulk / tone/ strength in the bilateral paraspinal muscles normal Vertebral body tender to palpation over Facet loading test positive Lumbar spine: Motor bulk/ tone/ strength lower extremities , thigh and legs : 5/5 Deep tendon reflexes : Normal Knee Jerk. Normal Ankle Jerk . Vertebral body tenderness to palpation over Lumbar Facet Loading Test positive Straight Leg Raise: positive at 30 degrees right side/ left side Gaenslen's Test positive Sacral spine : Severe tenderness over the Sacroiliac joint: right side / left side Range of motion: Flexion of the lumbar spine <60 degrees Range of motion: Extension of the lumbar spine <20 degrees Gaenslen's Test positive Jose's Test positive Mary test: positive right side / left side Thigh Thrust Test Sacral Thrust Test Assessment and plan: Chronic neck pain secondary to degenerative disc disease , spondylosis with facet arthropathy without myelopathy Recommendation of BL G.O.N. blocks to be scheduled. Pt no longer has symptoms of shingles. Risks, benefits of procedure discussed and pt verbalized understanding. Denies anticoagulant use or medical history of diabetes. Chronic and current use of high-risk medication (Opioids). The patient was counseled about risk of opioid use, psychological risk associated with opioids and was orally counseled to not overuse , divert or sell medications. Pt is to store medication in a safe location. The patient is counseled against driving while using narcotic medications and also not to use alcohol or any illicit recreational drugs. Patient verbalized understanding that the lack of compliance will result in failure to renew narcotic prescription(s) as well as possible discharge from the clinic Diagnoses, prognosis and treatment options including but not limited to physical therapy, surgical interventions, interventional therapies and medication management including narcotics and adjuvant medication were discussed. All patient questions answered MAPS reviewed and it was appropriate. UDS from 07/03/21 reviewed and consistent. Prescription refill for [place] & Flexeril w 1 refill I have spent 31 minutes on patient care today. Dr Kelly was available by phone for the evaluation of this patient. The time was used to review the medical records including relevant urine studies and Prescription history (MAPs), review of the available imaging, evaluation and examination of the patient, coordination of care with the medical staff and if applicable referring physicians, as well as creation of the medical record PQRS Measure Charge Sheet Mode of Arrival: Ambulatory PQRS Narrative: Smoking Status Never smoker Narcotic Agreement Date Signed 02/08/21 Blood Pressure 113/80 Pain Intensity [Neck] 6 Scale Used Numeric (1 - 10) Hx Alcohol Use (MH) No Home Medications: Ambulatory Orders Medroxyprogesterone Acetate [Depo-Provera] 150 mg IM Q84D 07/10/18 Omalizumab [Xolair] 300 mg SQ QMONTHLY 07/10/18 traZODone HCL 100 mg PO HS 07/09/19 PARoxetine [Paxil] 20 mg PO HS 12/18/19 Fluticasone Propionate [Flovent Hfa 220 mcg] 1 puff INHALATION RT- DAILY@07,199906/13/20 Loratadine [Claritin] 10 mg PO DAILY 06/13/20 SUMAtriptan SUCCINATE [Imitrex] 100 mg PO DIRECTED PRN 06/13/20 Botox Neck Injection 325 mg SQ Q70D 08/30/20 Cholecalciferol [Vitamin D3 (25 Mcg = 1000 Iu)] 125 mcg PO DAILY 08/30/20 Albuterol Sulfate [Ventolin HFA] 2 puff INHALATION RT-Q6H PRN 09/30/20 Methylphenidate HCl [Concerta] 36 mg PO DAILY 09/30/20 levalbuterol HCL 0.63 mg INHALATION RT-QID PRN 09/30/20 Levothyroxine Sodium 125 mcg PO SUTUTHSA 12/13/20 Levothyroxine Sodium 112 mcg PO MOWEFR 02/02/21 Cyclobenzaprine [Flexeril] 10 mg PO Q6H PRN 30 Days #120 tab 08/23/21 HYDROcodone/APAP 7.5-325MG [[place] 7.5-325] 1 tab PO Q6H PRN 30 Days #120 tab 08/23/21 HYDROcodone/APAP 7.5-325MG [[place] 7.5-325] 1 tab PO Q6H PRN 30 Days #120 tab 08/23/21
== END ==
LOC: PNWHC3 07:42
PROVIDERS: ATTEND Specialist
DX: M50.30 Other cervical disc degeneration, unspecified cervical region (principal); M47.812 Spondylosis without myelopathy or radiculopathy, cervical region; G89.29 Other chronic pain; Z79.891 Long term (current) use of opiate analgesic
CPT/HCPCS: 99211

== ENCOUNTER 2021-11-07 06:52 | Day surgery (SDC) | payer MEDICARE, OTHER ==
[2021-11-07] MEDS ORDERED: LACTATED RINGERS 1,000 ML IV SCH (07:13)
[2021-11-07] MEDS ORDERED: LIDOCAINE 1% (10MG/ML) FOR IV START INTRADERMA PRN (07:13)
[2021-11-07 07:31] VITALS: RESP 16; TEMP 97.9
[2021-11-07] MEDS ORDERED: methylPREDNISolone ACETATE 40 MG/ML 1 ML VIAL ONE (07:58)
[2021-11-07] MEDS ORDERED: MIDAZOLAM 2 MG/2 ML VIAL ONE (07:58)
[2021-11-07] MEDS ORDERED: fentaNYL (PF) 50 MCG/ML 2 ML AMP ONE (07:58)
[2021-11-07] MEDS ORDERED: ROPIVACAINE 5MG/ML 20ML VIAL ONE (07:58)
--- NOTE | 2021-11-07 08:09 | P.PCN ---
Date of Procedure: 11/07/21 Procedure(s) Performed: Preoperative diagnoses= 1- Greater occipital neuralgia Postoperative diagnoses= same as preoperative diagnosis. Procedure= Bilateral Greater occipital nerve block Anesthesia= moderate sedation with Versed 2 mg and fentanyl 100 micrograms. Estimated blood loss=minimal. Procedure indication= the patient had a history of severe chronic neck pain ,and headache, diagnosed with occipital neuralgia exam was positive for severe tenderness over the occipital nerve bilaterally, she will be a good candidate occipital nerve block, patient failed conservative management Procedure description= the patient was seen and identified in the preoperative holding area, risks and benefits and alternative of the procedure and possible complications discussed with the patient, and he agreed with the preceding, patient signed the consent, an IV was started, and vital signs were monitored a nd were stable throughout the procedure, patient was placed in the sitting position or table and the neck area was prepped and draped with a sterile fashion, vital signs were closely monitored during the procedure, 25-gauge needle advanced 1 inch lateral to the occipital protuberance on the right side, at the location of the right occipital nerve , then after negative aspiration for heme and CSF and there was no paresthesia during the injection, 6 ml of Robivacaine 0.5% and 20 mg of Depo-Medrol injected after negative aspiration, the needle removed, and the entire same procedure was repeated for the left Greater occipital nerve. Patient tolerated the procedure well without any complication, The patient returned to supine position after the back was cleaned and a Band- Aid applied, the patient transported to recovery room in stable condition and he was monitored for 30 minutes before he was discharged home and then patient was reexamined before going home and patient was discharged in stable condition and patient will follow up with the pain clinic in a few weeks.
[2021-11-07] MEDS ORDERED: IV FLUID CONTINUATION 800 ML IV ONE (08:12)
[2021-11-07 08:29] VITALS: BP 107/71; PULSE 87
== END 2021-11-07 08:42 | disposition home or self-care (01) ==
LOC: ORPAIN 06:52
PROVIDERS: ATTEND Specialist
DX: M54.81 Occipital neuralgia (principal)
CPT/HCPCS: 81025; 64405; J2250; J1030; J3010; J2795

== ENCOUNTER → 2021-12-11 | Outpatient (CLI) | payer MEDICARE, OTHER ==
[2021-12-11 08:09] VITALS: BP 136/84; PULSE 91; RESP 18; TEMP 98.2
--- NOTE | 2021-12-11 14:22 | P.PAINPG ---
PQRS Measure Charge Sheet Comment: A 41 yr old female with a history of severe and chronic headache pain presents today for evaluation s/p BL G.O.N. block and medication refills. Pt states she received 90% pain relief s/p procedure. 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 She will follow up with [facility] for additional testing. Pain level is currently at 5/10 in intensity but escalates as high as 8/10 by evening with activity. Pain is provoked by bending, twisting. Pain is alleviated with medications, topicals, injections, mostly heat, ice, PT in the past and will return to PT after referral from her neurologist, chiropractic treatments without relief, home stretching regimen, use of a cane or walker for ambulation, massage which provided no relief, repositioning and rest. Interventional pain procedures completed include BL ABDIRASHID Patient is currently on [place] 7.5/325mg #120, Flexeril prn Patient denies any side effects of the medication(s), denies excessive drowsiness or sleepiness, denies suicidal ideation and reports that the current pain medication is helping to control the pain and improve activities of daily living. Patient denies any motor or sensory deficits. Patient denies any fever or night sweats, denies any change in the bowel movements or urination. Physical Examination: -Constitutional: Cooperative. Not in acute distress . - Neurologic: Cranial nerve II to XII intact. No focal neurological deficits. - Psychatric: Alert & oriented x 3. Matching mood & appropriate affect. Judgment and insight intact. - Musculoskeletal: Cervical spine: Mild TTP over BL ABDIRASHID Muscle bulk/ tone/ strength in the bilateral upper extremities normal Vertebral body tenderness to palpation over [place] test positive Distraction test positive Facet loading test positive Thoracic spine Muscle bulk / tone/ strength in the bilateral paraspinal muscles normal Vertebral body tender to palpation over Facet loading test positive Lumbar spine: Motor bulk/ tone/ strength lower extremities , thigh and legs : 5/5 Deep tendon reflexes : Normal Knee Jerk. Normal Ankle Jerk . Vertebral body tenderness to palpation over Lumbar Facet Loading Test positive Straight Leg Raise: positive at 30 degrees right side/ left side Gaenslen's Test positive Sacral spine : Severe tenderness over the Sacroiliac joint: right side / left side Range of motion: Flexion of the lumbar spine <60 degrees Range of motion: Extension of the lumbar spine <20 degrees Gaenslen's Test positive Jose's Test positive Mary test: positive right side / left side Thigh Thrust Test Sacral Thrust Test Assessment and plan: Chronic Occipital Neuralgia Risks, benefits of procedure discussed and pt verbalized understanding. Denies anticoagulant use or medical history of diabetes. Chronic and current use of high-risk medication (Opioids). The patient was counseled about risk of opioid use, psychological risk associated with opioids and was orally counseled to not overuse , divert or sell medications. Pt is to store medication in a safe location. The patient is counseled against driving while using narcotic medications and also not to use alcohol or any illicit recreational drugs. Patient verbalized understanding that the lack of compliance will result in failure to renew narcotic prescription(s) as well as possible discharge from the clinic Diagnoses, prognosis and treatment options including but not limited to physical therapy, surgical interventions, interventional therapies and medication management including narcotics and adjuvant medication were d iscussed. All patient questions answered MAPS reviewed and it was appropriate. Prescription refill for [place] 7.2/325mg #120 and Flexeril prn w 1 refill I have spent less than 30 minutes on patient care today. Dr Kelly was available by phone for the evaluation of this patient. The time was used to review the medical records including relevant urine studies and Prescription history (MAPs), review of the available imaging, evaluation and examination of the patient, coordination of care with the medical staff and if applicable referring physicians, as well as creation of the medical record - Pain Location Back Non-Pharmacological Interventions: Chiropractic Treatment, Heat, Home Exercise, Ice, Inactivity, Massage, Physical Therapy, Position/Reposition, Stretching Pharmacological Interventions: Block, PRN Medication, Scheduled Medication, Topical Medication PQRS Narrative: Smoking Status Never smoker Narcotic Agreement Date Signed 02/08/21 Hx Alcohol Use (MH) No Home Medications: Ambulatory Orders Medroxyprogesterone Acetate [Depo-Provera] 150 mg IM Q84D 07/10/18 Omalizumab [Xolair] 300 mg SQ QMONTHLY 07/10/18 traZODone HCL 100 mg PO HS 07/09/19 PARoxetine [Paxil] 20 mg PO HS 12/18/19 Fluticasone Propionate [Flovent Hfa 220 mcg] 1 puff INHALATION RT- DAILY@0700,199906/13/20 Loratadine [Claritin] 10 mg PO DAILY 06/13/20 SUMAtriptan succinate [Imitrex] 100 mg PO DIRECTED PRN 06/13/20 Botox Neck Injection 325 mg SQ Q70D 08/30/20 Cholecalciferol [Vitamin D3 (25 Mcg = 1000 Iu)] 125 mcg PO DAILY 08/30/20 Albuterol Sulfate [Ventolin HFA] 2 puff INHALATION RT-Q6H PRN 09/30/20 Methylphenidate HCl [Concerta] 36 mg PO DAILY 09/30/20 levalbuterol HCL 0.63 mg INHALATION Q4HR PRN 09/30/20 Levothyroxine Sodium 125 mcg PO DAILY 12/13/20 Cyclobenzaprine [Flexeril] 10 mg PO Q6H PRN 30 Days #120 tab 12/11/21 HYDROcodone/APAP 7.5-325MG [[place] 7.5-325] 1 tab PO Q6H PRN 30 Days #120 tab 12/11/21 HYDROcodone/APAP 7.5-325MG [[place] 7.5-325] 1 tab PO Q6HR PRN 30 Days #120 tab 12/11/21 Controlled Substance Measures - Controlled Substance Measures Is patient prescribed a controlled substance at discharge?: Yes When asked, does pt state using other controlled substances?: Yes If prescribed controlled substance>3 days was MAPS reviewed?: Yes If Rx opioid, was Start Talking consent form obtained?: Yes Was information provided regarding opioid addiction?: Yes
== END ==
LOC: PNWHC3 07:31
PROVIDERS: ATTEND Specialist
DX: M54.81 Occipital neuralgia (principal); G89.29 Other chronic pain; Z79.891 Long term (current) use of opiate analgesic
CPT/HCPCS: 99211

== ENCOUNTER → 2021-12-22 | Outpatient (CLI) | payer MEDICARE, OTHER ==
--- NOTE | 2021-12-22 07:47 | US ---
EXAMINATION TYPE: US thyroid st tissue head/neck DATE OF EXAM: 12/22/2021 COMPARISON: NONE CLINICAL HISTORY: E03.9 hypothyroidism. Patient diagnosed with Wayne's. Been on various thyroid m edications since 11 years old GLAND SIZE: Right Lobe: 5.3 x 1.1 x 0.9 cm Overall Parenchyma: heterogenous Left Lobe: 4.3 x 1.3 x 0.8 cm Overall Parenchyma: heterogeneous Isthmus Thickness: 0.26 cm NODULES RIGHT: # of nodules measured on right: 0 LEFT: # of nodules measured on left: 0 ISTHMUS: # of nodules measured in the isthmus: 0 Bilateral neck scanned, no evidence of lymphadenopathy. Overall very heterogeneous thyroid, but no obvious nodules visualized. IMPRESSION: Normal thyroid ultrasound
== END | disposition home or self-care (01) ==
LOC: RADUSWWP 06:59
PROVIDERS: ATTEND Family Medicine
DX: E03.9 Hypothyroidism, unspecified (principal)
CPT/HCPCS: 76536

== ENCOUNTER → 2022-01-05 | Outpatient (CLI) | payer MEDICARE, OTHER ==
--- NOTE | 2022-01-08 08:22 | MM ---
Reason for Exam: Screening (asymptomatic). Last mammogram was performed 3 year(s) and 10 month(s) ago. Patient History: Menarche at age 13. First Full-Term at age 18. Other cancer, age 36. Risk Values: Gregoria 5 year model risk: 0.4%. NCI Lifetime model risk: 7.3%. Prior Study Comparison: 03/19/2018 Bilateral Screening Mammogram, [facility]. Tissue Density: There are scattered fibroglandular densities. Findings: Analyzed By CAD. There is no suspicious group of microcalcifications or new suspicious mass in either breast. No significant change from prior exam. Overall Assessment: Negative, BI-RAD 1 Management: Screening Mammogram of both breasts in 1 year. A clinical breast exam by your physician is recommended on an annual basis and results should be correlated with mammographic findings. Electronically signed and approved by: Mic Rivera D.O.
== END | disposition home or self-care (01) ==
LOC: RADMAMWWP 13:07
PROVIDERS: ATTEND Obstetrics & Gynecology
DX: Z12.31 Encounter for screening mammogram for malignant neoplasm of breast (principal); Z85.89 Personal history of malignant neoplasm of other organs and systems
CPT/HCPCS: 77063; 77067

== ENCOUNTER → 2022-02-05 | Outpatient (CLI) | payer MEDICARE, OTHER ==
[2022-02-05 08:02] VITALS: BP 134/91; PULSE 108; RESP 18
--- NOTE | 2022-02-05 16:17 | P.PAINPG ---
PQRS Measure Charge Sheet Comment: A 41 yr old female with a history of severe and chronic low back pain secondary to lumbar degenerative disc diseases and lumbar spondylosis with facet arthropathy without myelopathy presents today for medication refills. Pain level is currently at 6/10 in intensity, constant, tight/ spasm in character, generalized in the upper and lower back. Pain is provoked by bending/ twisting. Pain is alleviated with PT in the past, heat, ice, medications ([place], Flexeril), repositioning and rest. Patient is currently on [place] 7.5/325mg #120, Flexeril prn Patient denies any side effects of the medication(s), denies excessive drowsiness or sleepiness, denies suicidal ideation and reports that the current pain medication is helping to control the pain and improve activities of daily living. Patient denies any motor or sensory deficits. Patient denies any fever or night sweats, denies any change in the bowel movements or urination. Physical Examination: -Constitutional: Cooperative. Not in acute distress . - Neurologic: Cranial nerve II to XII intact. No focal neurological deficits. - Psychatric: Alert & oriented x 3. Matching mood & appropriate affect. Judgment and insight intact. - Musculoskeletal: Cervical spine: Muscle bulk/ tone/ strength in the bilateral upper extremities normal Vertebral body tenderness to palpation over Spurling test positive Distraction test positive Facet loading test positive Thoracic spine Muscle bulk / tone/ strength in the bilateral paraspinal muscles normal Vertebral body tender to palpation over Facet loading test positive Lumbar spine: Motor bulk/ tone/ strength lower extremities , thigh and legs : 5/5 Deep tendon reflexes : Normal Knee Jerk. Normal Ankle Jerk . Vertebral body tenderness to palpation over L3, L4, L5 Lumbar Facet Loading Test positive Straight Leg Raise: positive at 30 degrees right side/ left side Gaenslen's Test positive Sacral spine : Severe tenderness over the Sacroiliac joint: right side / left side Range of motion: Flexion of the lumbar spine <60 degrees Range of motion: Extension of the lumbar spine <20 degrees Gaenslen's Test positive Jose's Test positive Mary test: positive right side / left side Thigh Thrust Test Sacral Thrust Test Assessment and plan: Chronic low back pain secondary to lumbar degenerative disc disease , lumbar spondylosis with facet arthropathy without myelopathy Chronic and current use of high-risk medication (Opioids). The patient was counseled about risk of opioid use, psychological risk associated with opioids and was orally counseled to not overuse , divert or sell medications. Pt is to store medication in a safe location. The patient is counseled against driving while using narcotic medications and also not to use alcohol or any illicit recreational drugs. Patient verbalized understanding that the lack of compliance will result in failure to renew narcotic prescription(s) as well as possible discharge from the clinic Diagnoses, prognosis and treatment options including but not limited to physical therapy, surgical interventions, interventional therapies and medication management including narcotics and adjuvant medication were discussed. All patient questions answered MAPS reviewed and it was appropriate. Opiate & Narcotic agreement renewed today 02/05/22 Attempting to collect urine today, but due to polyuria, pt may not be able to supply sample today. Prescription refill for [place] 7.5/325mg #120, Flexeril w 1 refill. I have spent less than 30 minutes on patient care today. Dr Kelly was available by phone for the evaluation of this patient. The time was used to review the medical records including relevant urine studies and Prescription history (MAPs), review of the available imaging, evaluation and examination of the patient, coordination of care with the medical staff and if applicable referring physicians, as well as creation of the medical record - Pain Location Generalized Non-Pharmacological Interventions: Heat, Home Exercise, Ice, Inactivity, Physical Therapy, Position/Reposition, Sitting, Stretching Pharmacological Interventions: PRN Medication PQRS Narrative: Smoking Status Never smoker Narcotic Agreement Date Signed 02/08/21 Hx Alcohol Use (MH) No Home Medications: Ambulatory Orders Medroxyprogesterone Acetate [Depo-Provera] 150 mg IM Q84D 07/10/18 Omalizumab [Xolair] 300 mg SQ QMONTHLY 07/10/18 traZODone HCL 100 mg PO HS 07/09/19 PARoxetine [Paxil] 20 mg PO HS 12/18/19 Fluticasone Propionate [Flovent Hfa 220 mcg] 1 puff INHALATION RT- DAILY@0700,199906/13/20 Loratadine [Claritin] 10 mg PO DAILY 06/13/20 SUMAtriptan succinate [Imitrex] 100 mg PO DIRECTED PRN 06/13/20 Botox Neck Injection 325 mg SQ Q70D 08/30/20 Cholecalciferol [Vitamin D3 (25 Mcg = 1000 Iu)] 125 mcg PO DAILY 08/30/20 Albuterol Sulfate [Ventolin HFA] 2 puff INHALATION RT-Q6H PRN 09/30/20 Methylphenidate HCl [Concerta] 36 mg PO DAILY 09/30/20 levalbuterol HCL 0.63 mg INHALATION Q4HR PRN 09/30/20 Levothyroxine Sodium 125 mcg PO DAILY 12/13/20 HYDROcodone/APAP 7.5-325MG [[place] 7.5-325] 1 tab PO Q6HR PRN 7 Days #28 tab 01/08/22 Cyclobenzaprine [Flexeril] 5 mg PO QID 7 Days #28 tablet 01/09/22 Cyclobenzaprine [Flexeril] 10 mg PO Q6H PRN 30 Days #120 tab 02/05/22 HYDROcodone/APAP 7.5-325MG [[place] 7.5-325] 1 tab PO Q6H PRN 30 Days #120 tab 02/05/22 HYDROcodone/APAP 7.5-325MG [[place] 7.5-325] 1 tab PO Q6HR PRN 30 Days #120 tab 02/05/22 Controlled Substance Measures - Controlled Substance Measures Is patient prescribed a controlled substance at discharge?: Yes When asked, does pt state using other controlled substances?: Yes If prescribed controlled substance>3 days was MAPS reviewed?: Yes If Rx opioid, was Start Talking consent form obtained?: Yes Was information provided regarding opioid addiction?: Yes
== END ==
LOC: PNWHC3 07:31
PROVIDERS: ATTEND Specialist
DX: M47.816 Spondylosis without myelopathy or radiculopathy, lumbar region (principal); Z51.81 Encounter for therapeutic drug level monitoring; M51.36 Other intervertebral disc degeneration, lumbar region; G89.29 Other chronic pain; Z79.891 Long term (current) use of opiate analgesic
CPT/HCPCS: 80307; G0482; G0463; 99212

== ENCOUNTER 2022-03-01 09:42 | Emergency (ER) | payer MEDICARE ==
[2022-03-01] MEDS ORDERED: SODIUM CHLORIDE 0.9% 1,000 ML IV STA (10:42)
[2022-03-01] MEDS ORDERED: diphenhydrAMINE 50 MG/ML 1 ML VIAL IVP STA (10:42)
[2022-03-01] MEDS ORDERED: METOCLOPRAMIDE 5 MG/ML 2 ML VIAL IVP STA (10:42)
--- NOTE | 2022-03-01 10:48 | ED ---
General Adult HPI - General Chief complaint: Headache Stated complaint: infusion reaction Source: patient, RN notes reviewed Mode of arrival: ambulatory Limitations: no limitations - History of Present Illness Initial comments: Patient is a 41-year-old female presenting to the emergency room with increase in chronic muscle spasms and a migraine headache not relieved by medication at home including Imitrex, Reglan and Benadryl along with Tylenol. She has a complex past medical history and recently started on IgG immune suppressant therapy for dystonia. She reports that since the infusion she has had increased difficulty in drinking fluids and becoming adequately hydrated. She denies any vomiting or diarrhea. She denies any chest pain, shortness of breath, abdominal pain, focal neurological deficits that are new for her fevers or chills. - Related Data Home Medications Medication Instructions Recorded Confirmed Medroxyprogesterone Acetate 150 mg IM Q84D 07/10/18 03/01/22 [Depo-Provera] Omalizumab [Xolair] 300 mg SQ Q30D 07/10/18 03/01/22 traZODone HCL 100 mg PO HS@199907/09/19 03/01/22 PARoxetine [Paxil] 20 mg PO HS@199912/18/19 03/01/22 Fluticasone Propionate [Flovent 2 puff INHALATION 06/13/20 03/01/22 Hfa 220 mcg] RT-DAILY@ Loratadine [Claritin] 10 mg PO DAILY@0706/13/20 03/01/22 SUMAtriptan succinate [Imitrex] 100 mg PO BID PRN 06/13/20 03/01/22 Botox Neck Injection 400 mg SQ Q70D 08/30/20 03/01/22 Albuterol Sulfate [Ventolin HFA] 2 puff INHALATION RT-Q6H PRN 09/30/20 03/01/22 levalbuterol HCL 0.63 mg INHALATION RT-QID PRN 09/30/20 03/01/22 Levothyroxine Sodium 125 mcg PO DAILY@0612/13/20 03/01/22 Cholecalciferol (Vitamin D3) 125 mcg PO DAILY@0700 03/01/22 03/01/22 [Vitamin D3 (125 MCG = 5,000 IU)] Cyclobenzaprine [Flexeril] 10 mg PO QID@,07,13,19 03/01/22 03/01/22 EPINEPHrine (Auto Inject) [Epipen] 0.3 mg IM ONCE PRN 03/01/22 03/01/22 HYDROcodone/APAP 7.5-325MG [[place] 1 tab PO Q6H PRN 03/01/22 03/01/22 7.5-325] Metoclopramide [Reglan] 10 mg PO Q28D 03/01/22 03/01/22 Panzyga 10% Infusion 1 dose IV Q28D 03/01/22 03/01/22 diazePAM [Valium] 2 mg PO Q12H PRN 03/01/22 03/01/22 Allergies Allergy/AdvReac Type Severity Reaction Status Date / Time No Known Allergies Allergy Verified 03/01/22 11:43 Review of Systems ROS Statement: Those systems with pertinent positive or pertinent negative responses have been documented in the HPI. ROS Other: All systems not noted in ROS Statement are negative. Past Medical History Past Medical History: Asthma, Pneumonia Additional Past Medical History / Comment(s): TACHYCARDIA, peptic ulcers, anemia."HAS BEEN ON VENTILATOR IN PAST D/T SEVERE ASTHMA ATTACK," [employer]LE[employer]-STATES GETTING BETTER, CONSTIPATION. HERNIATED DISC, cervical cancer. 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 recent antibiotoc for infection in arm-now resolved per pt, COVID 12/30/20 History of Any Multi-Drug Resistant Organisms: MRSA Date of last positivie culture/infection: 2014 MDRO Source:: rt Groin Past Surgical History: Bariatric Surgery, Cholecystectomy, Joint Replacement, Orthopedic Surgery, Tonsillectomy Additional Past Surgical History / Comment(s): Tilt table test, lap band 2007; NASAL FX REPAIR , ORIF LT ELBOW X2, PAIN PROCEDURES for migraines. Surgery on he r cervix for cancer, rt foot surgery(Fx), cysto/lithotripsy , left hip replacement 12/2018, lumbar puncture, cervical biopsy in August @[facility], bone tumor removal Past Anesthesia/Blood Transfusion Reactions: Postoperative Nausea & Vomiting (PONV) Past Psychological History: Anxiety, Depression Smoking Status: Never smoker - Past Family History Mother Family Medical History: Pneumonia Additional Family Medical History / Comment(s): Mother of pneumonia. Patient's son of brain cancer, last mother and father both liver cancer Son(s) Family Medical History: Cancer Additional Family Medical History / Comment(s): Son of brain cancer. Father Family Medical History: Cancer Additional Family Medical History / Comment(s): Liver Cancer. General Exam General appearance: alert, in no apparent distress Head exam: Present: atraumatic, normocephalic, normal inspection Eye exam: Present: normal appearance, PERRL, EOMI. Absent: scleral icterus, conjunctival injection ENT exam: Present: mucous membranes dry, other (Decreased oral opening) Neck exam: Present: normal inspection, tenderness, lymphadenopathy (Shotty) Respiratory exam: Present: normal lung sounds bilaterally. Absent: respiratory distress, wheezes, rales, rhonchi, stridor Cardiovascular Exam: Present: regular rate, normal rhythm, normal heart sounds. Absent: systolic murmur, diastolic murmur, rubs, gallop, clicks GI/Abdominal exam: Present: soft, normal bowel sounds. Absent: distended, tenderness, guarding, rebound, rigid Extremities exam: Present: tenderness, other (bilateral ankle inversion). Absent: pedal edema, joint swelling Back exam: Present: normal inspection, muscle spasm Neurological exam: Present: alert, oriented X3, CN II-XII intact Psychiatric exam: Present: normal affect, normal mood Skin exam: Present: warm, dry, intact, normal color. Absent: rash Course Vital Signs 03/01/22 03/01/22 10:07 11:31 Temperature 98.1 F 98.5 F Pulse Rate 95 82 Respiratory 18 20 Rate Blood Pressure 148/100 128/95 O2 Sat by Pulse 100 99 Oximetry Medical Decision Making - Medical Decision Making 41-year-old female presenting to the emergency room with refractory migraine headache ongoing for 2 days and increase in muscle spasms. No indication for diagnostic imaging given no new headache characteristics or focal neurological deficits. We'll give IV fluids along with Reglan Benadryl and Valium for headache and muscle spasms. Will check CBC and BMP along with COVID swab. CBC reveals mild leukopenia not needed for patient and slightly elevated creatinine otherwise labs stable. Symptoms much improved after migraine cocktail and IV fluids. Will discharge home with follow-up with her primary care provider. Encouraged continued good oral hygiene duration. Case discussed with Dr. Villalba. - Lab Data Result diagrams: 03/01/22 10:54 03/01/22 10:54 Lab Results 03/01/22 03/01/22 03/01/22 Range/Units 10:54 10:54 10:54 WBC 3.7 L (3.8-10.6) k/uL RBC 3.74 L (3.80-5.40) m/uL Hgb 12.4 (11.4-16.0) gm/dL Hct 34.1 (34.0-46.0) % MCV 91.3 (80.0-100.0) fL MCH 33.1 (25.0-35.0) pg MCHC 36.3 (31.0-37.0) g/dL RDW 11.9 (11.5-15.5) % Plt Count 173 (150-450) k/uL MPV 7.5 Neutrophils % 58 % Lymphocytes % 33 % Monocytes % 7 % Eosinophils % 0 % Basophils % 1 % Neutrophils # 2.1 (1.3-7.7) k/uL Lymphocytes # 1.2 (1.0-4.8) k/uL Monocytes # 0.2 (0-1.0) k/uL Eosinophils # 0.0 (0-0.7) k/uL Basophils # 0.0 (0-0.2) k/uL Sodium 138 (137-145) mmol/L Potassium 4.0 (3.5-5.1) mmol/L Chloride 103 (98-107) mmol/L Carbon Dioxide 27 (22-30) mmol/L Anion Gap 8 mmol/L BUN 17 (7-17) mg/dL Creatinine 1.08 H (0.52-1.04) mg/dL Est GFR (CKD-EPI)AfAm 74 (>60 ml/min/1.73 sqM) Est GFR (CKD-EPI)NonAf 64 (>60 ml/min/1.73 sqM) Glucose 86 (74-99) mg/dL Calcium 8.7 (8.4-10.2) mg/dL Coronavirus (PCR) (Not Detectd) Influenza Type A RNA Not Detected (Not Detectd) Influenza Type B (PCR) Not Detected (Not Detectd) 03/01/22 Range/Units 10:54 WBC (3.8-10.6) k/uL RBC (3.80-5.40) m/uL Hgb (11.4-16.0) gm/dL Hct (34.0-46.0) % MCV (80.0-100.0) fL MCH (25.0-35.0) pg MCHC (31.0-37.0) g/dL RDW (11.5-15.5) % Plt Count (150-450) k/uL MPV Neutrophils % % Lymphocytes % % Monocytes % % Eosinophils % % Basophils % % Neutrophils # (1.3-7.7) k/uL Lymphocytes # (1.0-4.8) k/uL Monocytes # (0-1.0) k/uL Eosinophils # (0-0.7) k/uL Basophils # (0-0.2) k/uL Sodium (137-145) mmol/L Potassium (3.5-5.1) mmol/L Chloride (98-107) mmol/L Carbon Dioxide (22-30) mmol/L Anion Gap mmol/L BUN (7-17) mg/dL Creatinine (0.52-1.04) mg/dL Est GFR (CKD-EPI)AfAm (>60 ml/min/1.73 sqM) Est GFR (CKD-EPI)NonAf (>60 ml/min/1.73 sqM) Glucose (74-99) mg/dL Calcium (8.4-10.2) mg/dL Coronavirus (PCR) Not Detected (Not Detectd) Influenza Type A RNA (Not Detectd) Influenza Type B (PCR) (Not Detectd) Disposition Clinical Impression: Migraine headache, Muscle spasm Disposition: HOME SELF-CARE Condition: Stable Instructions (If sedation given, give patient instructions): Moderate Sedation (ED), Migraine Headache (ED), Muscle Spasm (ED) Additional Instructions: Please follow-up with your primary care provider. Please continue to maintain good oral intake with fluid intake avoiding caffeinated products. Please return to the Emergency Department if symptoms worsen or any other concerns. Is patient prescribed a controlled substance at d/c from ED?: No Referrals: Slade Gonzalez MD [Primary Care Provider] - 1-2 days Time of Disposition: 12:16
[2022-03-01 11:04] LABS: Basophils % (A) 1 %; Eosinophils % (A) 0 %; HCT 34.1 % (34.0-46.0); HGB 12.4 gm/dL (11.4-16.0); Lymphocytes # (A) 1.2 k/uL (1.0-4.8); Lymphocytes % (A) 33 %; MCH 33.1 pg (25.0-35.0); MCHC 36.3 g/dL (31.0-37.0); MCV 91.3 fL (80.0-100.0); Mean Platelet Volume 7.5; Monocytes # (A) 0.2 k/uL (0-1.0); Monocytes % (A) 7 %; Neutrophils # (A) 2.1 k/uL (1.3-7.7); Neutrophils % (A) 58 %; Platelet Count 173 k/uL (150-450); RBC 3.74 m/uL (3.80-5.40); RDW 11.9 % (11.5-15.5); WBC 3.7 k/uL (3.8-10.6)
[2022-03-01 11:19] LABS: Calcium 8.7 mg/dL (8.4-10.2)
[2022-03-01 11:32] VITALS: TEMP 98.5
[2022-03-01 12:32] VITALS: BP 116/87; PULSE 83; RESP 18
== END 2022-03-01 12:33 | disposition home or self-care (01) ==
LOC: EC 09:42
DX: G43.909 Migraine, unspecified, not intractable, without status migrainosus (principal); M62.838 Other muscle spasm; J45.909 Unspecified asthma, uncomplicated; Z20.822 Contact with and (suspected) exposure to COVID-19
CPT/HCPCS: 36415; 80048; 85025; 87502; 87635; 99284; 96374; 96375; 96361; J1200; J2765; J3360

== ENCOUNTER → 2022-03-28 | Outpatient (CLI) | payer MEDICARE ==
[2022-03-28 08:29] VITALS: BP 142/96; PULSE 104; RESP 18; TEMP 98.1
--- NOTE | 2022-03-28 13:57 | P.PAINPG ---
PQRS Measure Charge Sheet Comment: A 41 yr old female with a history of severe and chronic neck pain secondary to cervical degenerative disc diseases and spondylosis with facet arthropathy without myelopathy presents today for medication refills. Pain level is currently at 4/10 in intensity, constant, localized in the lower cervical spine, sharp in character w shooting towards the BL shoulders. Pain is provoked by rotation. Pain is alleviated with medications, topicals, injections in the past, ice, heat, PT in 2020, use of massage, repositioning and rest. Interventional pain procedures completed include BL ABDIRASHID, L L3-L5 RFA, Cervical TPIs Patient is currently on [place] 7.5/325mg #120 Patient denies any side effects of the medication(s), denies excessive drowsiness or sleepiness, denies suicidal ideation and reports that the current pain medication is helping to control the pain and improve activities of daily living. Patient denies any motor or sensory deficits. Patient denies any fever or night sweats, denies any change in the bowel movements or urination. Physical Examination: -Constitutional: Cooperative. Not in acute distress . - Neurologic: Cranial nerve II to XII intact. No focal neurological deficits. - Psychatric: Alert & oriented x 3. Matching mood & appropriate affect. Judgment and insight intact. - Musculoskeletal: Cervical spine: Muscle bulk/ tone/ strength in the bilateral upper extremities normal Vertebral body tenderness to palpation over Spurling test positive Distraction test positive Facet loading test positive Thoracic spine Muscle bulk / tone/ strength in the bilateral paraspinal muscles normal Vertebral body tender to palpation over Facet loading test positive Lumbar spine: Motor bulk/ tone/ strength lower extremities , thigh and legs : 5/5 Deep tendon reflexes : Normal Knee Jerk. Normal Ankle Jerk . Vertebral body tenderness to palpation over Lumbar Facet Loading Test positive Straight Leg Raise: positive at 30 degrees right side/ left side Gaenslen's Test positive Sacral spine : Severe tenderness over the Sacroiliac joint: right side / left side Range of motion: Flexion of the lumbar spine <60 degrees Range of motion: Extension of the lumbar spine <20 degrees Gaenslen's Test positive Jose's Test positive Mary test: positive right side / left side Thigh Thrust Test Sacral Thrust Test Assessment and plan: Chronic neck pain secondary to cervical degenerative disc disease, spondylosis with facet arthropathy without myelopathy Chronic and current use of high-risk medication (Opioids). The patient was counseled about risk of opioid use, psychological risk associated with opioids and was orally counseled to not overuse , divert or sell medications. Pt is to store medication in a safe location. The patient is counseled against driving while using narcotic medications and also not to use alcohol or any illicit recreational drugs. Patient verbalized understanding that the lack of compliance will result in failure to renew narcotic prescription(s) as well as possible discharge from the clinic Diagnoses, prognosis and treatment options including but not limited to physical therapy, surgical interventions, interventional therapies and medication management including narcotics and adjuvant medication were discussed. All patient questions answered MAPS reviewed and it was appropriate. UDS from Jan 2022 reviewed. +THC on UDS. Reviewed w pt. Reminded pt of Narcotics agreement. Pt acknowledged understanding. Repeat UDS today 03/28/22. Prescription refill for [place] 7.5/325mg #120, Flexeril #120, Reglan #60 w 1 RF I have spent less than 30 minutes on patient care today. Dr Kelly was available by phone for the evaluation of this patient. The time was used to review the medical records including relevant urine studies and Prescription history (MAPs), review of the available imaging, evaluation and examination of the patient, coordination of care with the medical staff and if applicable referring physicians, as well as creation of the medical record PQRS Narrative: Smoking Status Never smoker Narcotic Agreement Date Signed 02/05/22 Hx Alcohol Use (MH) No Home Medications: Ambulatory Orders Medroxyprogesterone Acetate [Depo-Provera] 150 mg IM Q84D 07/10/18 Omalizumab [Xolair] 300 mg SQ Q30D 07/10/18 traZODone HCL 100 mg PO HS@199907/09/19 PARoxetine [Paxil] 20 mg PO HS@199912/18/19 Fluticasone Propionate [Flovent Hfa 220 mcg] 2 puff INHALATION RT- DAILY@699,199906/13/20 Loratadine [Claritin] 10 mg PO DAILY@0706/13/20 SUMAtriptan succinate [Imitrex] 100 mg PO BID PRN 06/13/20 Botox Neck Injection 400 mg SQ Q70D 08/30/20 Albuterol Sulfate [Ventolin HFA] 2 puff INHALATION RT-Q6H PRN 09/30/20 levalbuterol HCL 0.63 mg INHALATION RT-QID PRN 09/30/20 Levothyroxine Sodium 125 mcg PO DAILY@0600 12/13/20 Cholecalciferol (Vitamin D3) [Vitamin D3 (125 MCG = 5,000 IU)] 125 mcg PO DAILY@0700 03/01/22 EPINEPHrine (Auto Inject) [Epipen] 0.3 mg IM ONCE PRN 03/01/22 Metoclopramide [Reglan] 10 mg PO Q28D 03/01/22 Panzyga 10% Infusion 1 dose IV Q28D 03/01/22 diazePAM [Valium] 2 mg PO Q12H PRN 03/01/22 Cyclobenzaprine [Flexeril] 10 mg PO QID@01,07,,19 30 Days #120 tab 03/28/22 HYDROcodone/APAP 7.5-325MG [[place] 7.5-325] 1 tab PO Q6H PRN 30 Days #120 tab 03/28/22 HYDROcodone/APAP 7.5-325MG [[place] 7.5-325] 1 tab PO Q6H PRN 30 Days #120 tab 03/28/22 Metoclopramide HCl [Reglan] 5 mg PO BID PRN 30 Days #60 tablet 03/28/22 Controlled Substance Measures - Controlled Substance Measures Is patient prescribed a controlled substance at discharge?: Yes When asked, does pt state using other controlled substances?: No If prescribed controlled substance>3 days was MAPS reviewed?: Yes If Rx opioid, was Start Talking consent form obtained?: Yes Was information provided regarding opioid addiction?: Yes
== END ==
LOC: PNWHC3 07:31
PROVIDERS: ATTEND Specialist
DX: M47.812 Spondylosis without myelopathy or radiculopathy, cervical region (principal); M50.30 Other cervical disc degeneration, unspecified cervical region; G89.29 Other chronic pain; Z79.891 Long term (current) use of opiate analgesic
CPT/HCPCS: 80307; G0482; G0463; 99212

== ENCOUNTER → 2022-05-23 | Outpatient (CLI) | payer MEDICARE ==
[2022-05-23 07:50] VITALS: BP 165/88; PULSE 112; RESP 18; TEMP 98.4
--- NOTE | 2022-05-23 07:59 | P.PN ---
Subjective Progress Note Date: 05/23/22 this is follow up visit for 41 yr old female with a history of severe and chronic neck pain secondary to cervical degenerative disc diseases and spondylosis with facet arthropathy without myelopathy presents today for medication refills. Pain level is currently at 4/10 in intensity, constant, localized in the lower cervical spine, sharp in character w shooting towards the BL shoulders. Pain is provoked by rotation. Pain is alleviated with medications, topicals, injections in the past, ice, heat, PT in 2020, use of massage, repositioning and rest. 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, and she's been following up with the neurologist at [facility], and she is receiving IV immunoglobulin infusion, she is currently getting prescription refill from us [place] 7.5/325 every 6 hours and Flexeril 10 mg every 6 hours when necessary Interventional pain procedures completed include BL ABDIRASHID, L L3-L5 RFA, Cervical TPIs Patient is currently on [place] 7.5/325mg #120 Patient denies any side effects of the medication(s), denies excessive drowsiness or sleepiness, denies suicidal ideation and reports that the current pain medication is helping to control the pain and improve activities of daily living. Patient denies any motor or sensory deficits. Patient denies any fever or night sweats, denies any change in the bowel movements or urination. Physical Examination: -Constitutional: Cooperative. Not in acute distress . - Neurologic: Cranial nerve II to XII intact. No focal neurological deficits. - Psychatric: Alert & oriented x 3. Matching mood & appropriate affect. Judgment and insight intact. - Musculoskeletal: Cervical spine: Muscle bulk/ tone/ strength in the bilateral upper extremities normal Vertebral body tenderness to palpation over Spurling test positive Distraction test positive Facet loading test positive Thoracic spine Muscle bulk / tone/ strength in the bilateral paraspinal muscles normal Vertebral body tender to palpation over Facet loading test positive Lumbar spine: Motor bulk/ tone/ strength lower extremities , thigh and legs : 5/5 Deep tendon reflexes : Normal Knee Jerk. Normal Ankle Jerk . Vertebral body tenderness to palpation over Lumbar Facet Loading Test positive Straight Leg Raise: positive at 30 degrees right side/ left side Gaenslen's Test positive Sacral spine : Severe tenderness over the Sacroiliac joint: right side / left side Range of motion: Flexion of the lumbar spine <60 degrees Range of motion: Extension of the lumbar spine <20 degrees Gaenslen's Test positive Jose's Test positive Mary test: positive right side / left side Thigh Thrust Test Sacral Thrust Test Assessment and plan: Chronic neck pain secondary to cervical degenerative disc disease, spondylosis with facet arthropathy without myelopathy Chronic and current use of high-risk medication (Opioids). The patient was counseled about risk of opioid use, psychological risk associated with opioids and was orally counseled to not overuse , divert or sell medications. Pt is to store medication in a safe location. The patient is counseled against driving while using narcotic medications and also not to use alcohol or any illicit recreational drugs. Patient verbalized understanding that the lack of compliance will result in failure to renew narcotic prescription(s) as well as possible discharge from the clinic Diagnoses, prognosis and treatment options including but not limited to physical therapy, surgical interventions, interventional therapies and medication management including narcotics and adjuvant medication were discussed. All patient questions answered MAPS reviewed and it was appropriate. Urine drug screen was reviewed and it was appropriate Prescription refill for [place] 7.5/325mg #120, Flexeril #120, w 1 RF, she will follow up in the pain clinic in 2 months for medication refill PQRS Narrative: Smoking Status Never smoker Narcotic Agreement Date Signed 02/05/22 Hx Alcohol Use (MH) No Home Medications: Ambulatory Orders Medroxyprogesterone Acetate [Depo-Provera] 150 mg IM Q84D 07/10/18 Omalizumab [Xolair] 300 mg SQ Q30D 07/10/18 traZODone HCL 100 mg PO HS@199907/09/19 PARoxetine [Paxil] 20 mg PO HS@199912/18/19 Fluticasone Propionate [Flovent Hfa 220 mcg] 2 puff INHALATION RT- DAILY@699,199906/13/20 Loratadine [Claritin] 10 mg PO DAILY@0706/13/20 SUMAtriptan succinate [Imitrex] 100 mg PO BID PRN 06/13/20 Botox Neck Injection 400 mg SQ Q70D 08/30/20 Albuterol Sulfate [Ventolin HFA] 2 puff INHALATION RT-Q6H PRN 09/30/20 levalbuterol HCL 0.63 mg INHALATION RT-QID PRN 09/30/20 Levothyroxine Sodium 125 mcg PO DAILY@0612/13/20 Cholecalciferol (Vitamin D3) [Vitamin D3 (125 MCG = 5,000 IU)] 125 mcg PO DAILY@0700 03/01/22 EPINEPHrine (Auto Inject) [Epipen] 0.3 mg IM ONCE PRN 03/01/22 Metoclopramide [Reglan] 10 mg PO Q28D 03/01/22 Panzyga 10% Infusion 1 dose IV Q28D 03/01/22 diazePAM [Valium] 2 mg PO Q12H PRN 03/01/22 Cyclobenzaprine [Flexeril] 10 mg PO QID@01,07,13,19 30 Days #120 tab 03/28/22 HYDROcodone/APAP 7.5-325MG [[place] 7.5-325] 1 tab PO Q6H PRN 30 Days #120 tab 03/28/22 HYDROcodone/APAP 7.5-325MG [[place] 7.5-325] 1 tab PO Q6H PRN 30 Days #120 tab 03/28/22 Metoclopramide HCl [Reglan] 5 mg PO BID PRN 30 Days #60 tablet 03/28/22 Controlled Substance Measures - Controlled Substance Measures Is patient prescribed a controlled substance at discharge?: Yes When asked, does pt state using other controlled substances?: No If prescribed controlled substance>3 days was MAPS reviewed?: Yes If Rx opioid, was Start Talking consent form obtained?: Yes Was information provided regarding opioid addiction?: Yes Objective - Vital Signs Vital signs: Vital Signs Temp 98.4 F 05/23/22 07:46 Pulse 112 H 05/23/22 07:46 Resp 18 05/23/22 07:46 BP 165/88 05/23/22 07:46 Pulse Ox 99 05/23/22 07:46 FiO2 Intake & Output 05/22/22 05/23/22 05/23/22 18:59 06:59 18:59 Weight 73.482 kg
== END ==
LOC: PNWHC3 07:31
PROVIDERS: ATTEND Specialist
DX: M47.812 Spondylosis without myelopathy or radiculopathy, cervical region (principal); M50.30 Other cervical disc degeneration, unspecified cervical region; Z79.891 Long term (current) use of opiate analgesic
CPT/HCPCS: 99211

== ENCOUNTER 2022-05-28 11:57 | Emergency (ER) | payer MEDICARE ==
--- NOTE | 2022-05-28 12:20 | ED ---
General Adult HPI - General Source: patient, RN notes reviewed Mode of arrival: ambulatory Limitations: no limitations <Miguel Spring - Last Filed: 05/28/22 12:19> <Eric Laguna - Last Filed: 05/28/22 16:48> - General Stated complaint: chest pain Time Seen by Provider: 05/28/22 12:19 - History of Present Illness Initial comments: 41-year-old female presents emergency Department chief complaint of chest pain. Patient states symptoms started this morning. Patient states that she has stiff man syndrome and is receiving IgG infusions. Patient states that she took Iraan, Flexeril, Valium this morning with no relief her symptoms. She is having spasming of her legs, left side of her chest. She states free and towards her left shoulder. She does have history of tachycardia no other cardiac problems. Patient does have underlying asthma. (Miguel Spring) This is a 41-year-old female who presents emergency Department complaining that she has stiff person syndrome. Patient states that she has an Valium and Flexeril and has Iraan at home. Patient states today she started having spasms in her chest wall radiating into her back and spasms of her legs. Patient states there is severe in the medication at home did not help. Patient states in the past which is come to the hospital she's required IV Valium. Patient denies any chest heaviness patient denies being short of breath. Patient is pain-free and spasms his reason she is here. Patient states this has occurred multiple times in the past normally controlled at home but occasionally had come to the hospital. Patient denies any fever chills or cough per patient denies headache. Patient denies any swelling to the left calf tenderness. Patient states that she was started on gammaglobulins recently. Patient denies any recent injury or trauma. (Eric Laguna) - Related Data Home Medications Medication Instructions Recorded Confirmed Medroxyprogesterone Acetate 150 mg IM Q84D 07/10/18 05/28/22 [Depo-Provera] Omalizumab [Xolair] 300 mg SQ Q30D 07/10/18 05/28/22 traZODone HCL 100 mg PO HS@199907/09/19 05/28/22 PARoxetine [Paxil] 20 mg PO HS@199912/18/19 05/28/22 Fluticasone Propionate [Flovent 2 puff INHALATION 06/13/20 05/28/22 Hfa 220 mcg] RT-DAILY@699,1999 Loratadine [Claritin] 10 mg PO DAILY@0700 06/13/20 05/28/22 SUMAtriptan succinate [Imitrex] 100 mg PO BID PRN 06/13/20 05/28/22 Botox Neck Injection 400 mg SQ Q70D 08/30/20 05/28/22 Albuterol Sulfate [Ventolin HFA] 2 puff INHALATION RT-Q6H PRN 09/30/20 05/28/22 levalbuterol HCL 0.63 mg INHALATION RT-QID PRN 09/30/20 05/28/22 Cholecalciferol (Vitamin D3) 125 mcg PO DAILY@0703/01/22 05/28/22 [Vitamin D3 (125 MCG = 5,000 IU)] EPINEPHrine (Auto Inject) [Epipen] 0.3 mg IM ONCE PRN 03/01/22 05/28/22 Metoclopramide [Reglan] 10 mg PO Q28D 03/01/22 05/28/22 Panzyga 10% Infusion 1 dose IV Q28D 03/01/22 05/28/22 diazePAM [Valium] 2 mg PO Q12H PRN 03/01/22 05/28/22 Levothyroxine Sodium [Synthroid] 150 mcg PO DAILY 05/28/22 05/28/22 Previous Rx's Medication Instructions Recorded Metoclopramide HCl [Reglan] 5 mg PO BID PRN 30 Days #60 tablet 03/28/22 Cyclobenzaprine [Flexeril] 10 mg PO QID@,,, 30 Days 05/23/22 #120 tab HYDROcodone/APAP 7.5-325MG [Iraan 1 tab PO Q6H PRN 30 Days #120 tab 05/23/22 7.5-325] Allergies Allergy/AdvReac Type Severity Reaction Status Date / Time No Known Allergies Allergy Verified 05/28/22 13:57 Review of Systems ROS Other: All systems not noted in ROS Statement are negative. <Miguel Spring - Last Filed: 05/28/22 12:19> ROS Other: All systems not noted in ROS Statement are negative. <Eric Laguna - Last Filed: 05/28/22 16:48> ROS Statement: Those systems with pertinent positive or pertinent negative responses have been documented in the HPI. Past Medical History Past Medical History: Asthma, Pneumonia Additional Past Medical History / Comment(s): TACHYCARDIA, peptic ulcers, anemia."HAS BEEN ON VENTILATOR IN PAST D/T SEVERE ASTHMA ATTACK," BULEMIA-STATES GETTING BETTER, CONSTIPATION. HERNIATED DISC, cervical cancer. 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 recent antibiotoc for infection in arm-now resolved per pt, COVID 12/30/20 History of Any Multi-Drug Resistant Organisms: MRSA Date of last positivie culture/infection: 2014 MDRO Source:: rt Groin Past Surgical History: Bariatric Surgery, Cholecystectomy, Joint Replacement, Orthopedic Surgery, Tonsillectomy Additional Past Surgical History / Comment(s): Tilt table test, lap band 2007; NASAL FX REPAIR , ORIF LT ELBOW X2, PAIN PROCEDURES for migraines. Surgery on her cervix for cancer, rt foot surgery(Fx), cysto/lithotripsy , left hip replacement 12/2018, lumbar puncture, cervical biopsy in August [facility], bone tumor removal Past Anesthesia/Blood Transfusion Reactions: Postoperative Nausea & Vomiting (PONV) Past Psychological History: Anxiety, Depression Additional Psychological History / Comment(s): . Smoking Status: Never smoker Past Alcohol Use History: None Reported Past Drug Use History: None Reported Additional Drug Use History / Comment(s): . - Past Family History Mother Family Medical History: Pneumonia Additional Family Medical History / Comment(s): Mother of pneumonia. Patient's son of brain cancer, last mother and father both liver cancer Son(s) Family Medical History: Cancer Additional Family Medical History / Comment(s): Son of brain cancer. Father Family Medical History: Cancer Additional Family Medical History / Comment(s): Liver Cancer. <Miguel Spring - Last Filed: 05/28/22 12:19> General Exam <Eric Laguna - Last Filed: 05/28/22 16:48> - General Exam Comments Initial Comments: GENERAL: Patient is well-developed and well-nourished. Patient is nontoxic and well- hydrated and is in moderate distress. ENT: Neck is soft and supple. No significant lymphadenopathy is noted. Oropharynx is clear. Moist mucous membranes. EYES: The sclera were anicteric and conjunctiva were pink and moist. Extraocular movements were intact and pupils were equal round and reactive to light. Eyelids were unremarkable. PULMONARY: Unlabored respirations. Good breath sounds bilaterally. No audible rales rhonchi or wheezing was noted. CARDIOVASCULAR: There is a regular rate and rhythm without any murmurs gallops or rubs. ABDOMEN: Soft and nontender with normal bowel sounds. SKIN: Skin is clear with no lesions or rashes and otherwise unremarkable. NEUROLOGIC: Patient is alert and oriented x3. Cranial nerves II through XII are grossly intact. Motor and sensory are also intact. Normal speech, volume and content. Symmetrical smile. MUSCULOSKELETAL: Patient's left right arm are slightly contracted secondary to spasms as are both of her legs slightly bent at the knee and hip and are spasming and very tight. LYMPHATICS: No significant lymphadenopathy is noted PSYCHIATRIC: Normal psychiatric evaluation. (Eric Laguna) Course Vital Signs 05/28/22 12:20 Temperature 98.4 F Pulse Rate 125 H Respiratory 22 Rate O2 Sat by Pulse 97 Oximetry Medical Decision Making - Lab Data Result diagrams: 05/28/22 12:50 05/28/22 12:50 <Eric Laguna - Last Filed: 05/28/22 16:48> - Medical Decision Making EKG is interpreted by me shows a sinus tachycardia at 120 bpm IA interval 125 QRS is 72 QT interval 3:30 QTC is 410. Patient's EKG shows no ST segment elevation. Was pt. sent in by a medical professional or institution? @ -No Did you speak to anyone other than the patient for history? @ -No Did you review nursing and triage notes? @ -Agree with nursing in triage notes Were old charts reviewed? @ -No old charts reviewed Differential Diagnosis? @ -Electrolyte abnormality, muscle cramps, stiff person syndrome, myalgias this is not a complete list EKG interpreted by me (3pts min.)? @ -None X-rays interpreted by me (1pt min.)? @ -None CT interpreted by me (1pt min.)? @ -None U/S interpreted by me (1pt. min.)? @ -None What testing was considered but not performed? (CT, X-rays, U/S, labs)? Why? @ -None What meds were considered but not given? Why? @ -None Did you discuss the management of the patient with other professionals? @ -None Did you reconcile home meds? @ -None Was smoking cessation discussed for >3mins.? @ -No Was critical care preformed (if so, how long)? @ -No Were there social determinants of health that impacted care today? How? (Homelessness, low income, unemployed, alcoholism, drug addiction, transportation, low edu. Level, literacy, decrease access to med. care, mcc, rehab)? @ -No Was there de-escalation of care discussed even if they declined? (Discuss DNR or withdrawal of care, Hospice)? @ -No What co-morbidities impacted this encounter? (DM, HTN, Smoking, COPD, CAD, Cancer, CVA, Hep., AIDS, mental health diagnosis, sleep apnea, morbid obesity)? @ -No Was patient admitted / discharged? @ -Patient will be discharged home. Patient was given 5 mg of Valium and the patient got no relief she was given 5 more Valium and Toradol. Patient was feeling a little bit of relief and then eventually she was given 0.5 of Dilaudid and after it took affect for a few minutes she was feeling considerably better and wanted to be discharged home. Patient is aware she's not to drive and she states she has a sweeper driver coming to get her. Undiagnosed new problem with uncertain prognosis? @ -None Drug Therapy requiring intensive monitoring for toxicity (Heparin, Nitro, Insulin, Cardizem)? @ -None Were any procedures done? @ -Known Diagnosis/symptom? @ -Stiff person syndrome/muscle cramps Acute, or Chronic, or Acute on Chronic? @ -Acute on chronic Uncomplicated (without systemic symptoms) or Complicated (systemic symptoms)? @ -Uncomplicated Side effects of treatment? @ -None Exacerbation, Progression, or Severe Exacerbation] @ -No Poses a threat to life or bodily function? @ -No (Eric Laguna) - Lab Data Lab Results 05/28/22 05/28/22 05/28/22 Range/Units 12:50 12:50 12:50 WBC 6.2 (3.8-10.6) k/uL RBC 4.25 (3.80-5.40) m/uL Hgb 14.6 (11.4-16.0) gm/dL Hct 40.4 (34.0-46.0) % MCV 95.0 (80.0-100.0) fL MCH 34.3 (25.0-35.0) pg MCHC 36.2 (31.0-37.0) g/dL RDW 11.8 (11.5-15.5) % Plt Count 203 (150-450) k/uL MPV 7.2 Neutrophils % 64 % Lymphocytes % 28 % Monocytes % 5 % Eosinophils % 1 % Basophils % 0 % Neutrophils # 4.0 (1.3-7.7) k/uL Lymphocytes # 1.7 (1.0-4.8) k/uL Monocytes # 0.3 (0-1.0) k/uL Eosinophils # 0.1 (0-0.7) k/uL Basophils # 0.0 (0-0.2) k/uL PT 10.1 (9.0-12.0) sec INR 0.9 (<1.2) APTT 21.5 L (22.0-30.0) sec Sodium 141 (137-145) mmol/L Potassium 4.1 (3.5-5.1) mmol/L Chloride 104 (98-107) mmol/L Carbon Dioxide 28 (22-30) mmol/L Anion Gap 9 mmol/L BUN 15 (7-17) mg/dL Creatinine 1.04 (0.52-1.04) mg/dL Est GFR (CKD-EPI)AfAm 77 (>60 ml/min/1.73 sqM) Est GFR (CKD-EPI)NonAf 67 (>60 ml/min/1.73 sqM) Glucose 90 (74-99) mg/dL Calcium 9.5 (8.4-10.2) mg/dL Magnesium 1.8 (1.6-2.3) mg/dL Total Bilirubin 0.5 (0.2-1.3) mg/dL AST 28 (14-36) U/L ALT 16 (4-34) U/L Alkaline Phosphatase 71 (38-126) U/L Troponin I (0.000-0.034) ng/mL Total Protein 9.4 H (6.3-8.2) g/dL Albumin 4.9 (3.5-5.0) g/dL 05/28/22 Range/Units 12:50 WBC (3.8-10.6) k/uL RBC (3.80-5.40) m/uL Hgb (11.4-16.0) gm/dL Hct (34.0-46.0) % MCV (80.0-100.0) fL MCH (25.0-35.0) pg MCHC (31.0-37.0) g/dL RDW (11.5-15.5) % Plt Count (150-450) k/uL MPV Neutrophils % % Lymphocytes % % Monocytes % % Eosinophils % % Basophils % % Neutrophils # (1.3-7.7) k/uL Lymphocytes # (1.0-4.8) k/uL Monocytes # (0-1.0) k/uL Eosinophils # (0-0.7) k/uL Basophils # (0-0.2) k/uL PT (9.0-12.0) sec INR (<1.2) APTT (22.0-30.0) sec Sodium (137-145) mmol/L Potassium (3.5-5.1) mmol/L Chloride (98-107) mmol/L Carbon Dioxide (22-30) mmol/L Anion Gap mmol/L BUN (7-17) mg/dL Creatinine (0.52-1.04) mg/dL Est GFR (CKD-EPI)AfAm (>60 ml/min/1.73 sqM) Est GFR (CKD-EPI)NonAf (>60 ml/min/1.73 sqM) Glucose (74-99) mg/dL Calcium (8.4-10.2) mg/dL Magnesium (1.6-2.3) mg/dL Total Bilirubin (0.2-1.3) mg/dL AST (14-36) U/L ALT (4-34) U/L Alkaline Phosphatase (38-126) U/L Troponin I <0.012 (0.000-0.034) ng/mL Total Protein (6.3-8.2) g/dL Albumin (3.5-5.0) g/dL Disposition <Miguel Spring - Last Filed: 05/28/22 12:19> Is patient prescribed a controlled substance at d/c from ED?: No Time of Disposition: 16:41 <Eric Laguna - Last Filed: 05/28/22 16:48> Clinical Impression: Stiff person syndrome, Muscle cramps Disposition: HOME SELF-CARE Condition: Good Additional Instructions: Patient should call her physician to find out protocol that he believes will work for her if her home medications do not work Referrals: Slade Gonzalez MD [Primary Care Provider] - 1-2 days
[2022-05-28 12:22] VITALS: TEMP 98.4
[2022-05-28 12:59] LABS: Basophils % (A) 0 %; Eosinophils # (A) 0.1 k/uL (0-0.7); Eosinophils % (A) 1 %; HCT 40.4 % (34.0-46.0); HGB 14.6 gm/dL (11.4-16.0); Lymphocytes # (A) 1.7 k/uL (1.0-4.8); Lymphocytes % (A) 28 %; MCH 34.3 pg (25.0-35.0); MCHC 36.2 g/dL (31.0-37.0); Mean Platelet Volume 7.2; Monocytes # (A) 0.3 k/uL (0-1.0); Monocytes % (A) 5 %; Neutrophils % (A) 64 %; Platelet Count 203 k/uL (150-450); RBC 4.25 m/uL (3.80-5.40); RDW 11.8 % (11.5-15.5); WBC 6.2 k/uL (3.8-10.6)
--- NOTE | 2022-05-28 13:09 | XR ---
EXAMINATION TYPE: XR chest 2V DATE OF EXAM: 05/28/2022 COMPARISON: 06/14/2021 TECHNIQUE: PA and lateral views submitted. HISTORY: Chest pain FINDINGS: The lungs are clear and there is no pneumothorax, pleural effusion, or focal pneumonia. Heart size normal. No overt failure. Mild hyperinflation. Hypertrophic and degenerative changes of the spine. La teral view demonstrates a postoperative lap band surgery. IMPRESSION: 1. No acute process. Correlate for COPD.
[2022-05-28 13:10] LABS: Albumin 4.9 g/dL (3.5-5.0); Calcium 9.5 mg/dL (8.4-10.2); Magnesium 1.8 mg/dL (1.6-2.3); Potassium 4.1 mmol/L (3.5-5.1); Total Bilirubin 0.5 mg/dL (0.2-1.3); Total Protein 9.4 g/dL (6.3-8.2)
[2022-05-28 13:14] LABS: INR 0.9 (<1.2); Prothrombin Time 10.1 sec (9.0-12.0)
[2022-05-28 13:18] LABS: Partial Thromboplastin Time 21.5 sec (22.0-30.0)
[2022-05-28] MEDS ORDERED: KETOROLAC 15 MG/ML 1 ML VIAL IVP STA (13:20)
[2022-05-28] MEDS ORDERED: HYDROmorphone 0.5 MG/0.5 ML SYRINGE IVP STA ×2 (13:56→15:06)
[2022-05-28] MEDS ORDERED: METOCLOPRAMIDE 5 MG/ML 2 ML VIAL IVP STA (14:32)
[2022-05-28 16:54] VITALS: BP 138/100; PULSE 108; RESP 18
== END 2022-05-28 16:54 | disposition home or self-care (01) ==
LOC: EC 11:57
DX: G25.82 Stiff-man syndrome (principal); J45.909 Unspecified asthma, uncomplicated; F41.9 Anxiety disorder, unspecified; F32.A Depression, unspecified; Z79.899 Other long term (current) drug therapy
CPT/HCPCS: 36415; 93005; 80053; 83735; 84484; 85025; 85610; 85730; 71046; 99285; 96374; 96375 ×3; 96376 ×2; J2765; J3360; J1885; J1170

== ENCOUNTER 2022-06-02 15:33 | Observation (INO) | payer MEDICARE ==
[2022-06-02] MEDS ORDERED: SODIUM CHLORIDE 0.9% 1,000 ML IV STA (15:51)
--- NOTE | 2022-06-02 15:55 | ED ---
General Adult HPI - General Chief complaint: Fall Stated complaint: Full Body Spasm Time Seen by Provider: 06/02/22 15:35 Source: patient, EMS Mode of arrival: EMS Limitations: no limitations - History of Present Illness Initial comments: Dictation was produced using [employer] dictation software. please excuse any grammatical, word or spelling errors. 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 She states that she was diagnosed at [facility] several years ago. States that it causes her bicycle into full spasms. She received IgG infusions regularly. Her last infusion was done just before [place] last year. States that she had spasms that were total body today. She states that she had an episode where her muscles acutely spasm causing her to fall. She states she did strike her head. Patient was here in the emergency department for similar complaint just 5 days ago. States that Valium and Dilaudid usually relieve her symptoms. She states she is in between doctors and does not have a doctor currently managing her spasmodic symptoms. Denies any fever, chills or night sweats. No nausea or vomiting. States that spasms are throughout her body especially in her back, legs and upper extremities. The ROS documented in this emergency department record has been reviewed and confirmed by me. Those systems with pertinent positive or negative responses have been documented in the HPI. All other systems are other negative and/or noncontributory. PHYSICAL EXAM: General Impression: Alert and oriented x3, acute distress secondary to pain HEENT: 1 superficial scalp laceration to the posterior superior scalp, extra- ocular movements intact, pupils equal and reactive to light bilaterally, mucous membranes moist. Cardiovascular: Heart regular rate and rhythm Chest: Able to complete full sentences, no retractions, no tachypnea Abdomen: abdomen soft, non-tender, non-distended, no organomegaly Musculoskeletal: Pulses present and equal in all extremities, no peripheral edema Motor: no focal deficits noted Neurological: CN II-XII grossly intact, spasms throughout the lower extremities with spasmodic plantar flexion of the right lateral legs. Skin: Intact with no visualized rashes Psych: Anxious ED course: 41-year-old female past medical history of stiff man syndrome presents to the emergency department for acute muscle spasms. She states that the spasms are throughout her body. Vital signs upon arrival are within acceptable limits. Nursing notes and chart review was performed Laboratory evaluation obtained. CBC, metabolic panel is unremarkable. Ab dominal labs negative. Computed tomography scan of the head and C-spine shows no traumatic injuries. Patient given multiple doses of muscle relaxants and analgesics. Disposition options were discussed patient up for her to be admitted. Patient is seen pain specialist in our hospital in the past. Dr. Sandro Gale will be on consult.aceration was repaired please see laceration note. Was pt. sent in by a medical professional or institution (, PA, ACCOUNTING RECRUITER, urgent care, hospital, or [place] health care facility...) When possible be specific @ -[No] Did you speak to anyone other than the patient for history (EMS, parent, family, police, friend...)? What history was obtained from this source @ -[No] Did you review nursing and triage notes (agree or disagree)? Why? @ -[I reviewed and agree with nursing and triage notes] Were old charts reviewed (outside hosp., previous admission, EMS record, old EKG, old radiological studies, urgent care reports/EKG's, [place] health care facility records)? Report findings @ -Most recent discharge summary and pain management consultation note was reviewed Differential Diagnosis (chest pain, altered mental status, abdominal pain women, abdominal pain men, vaginal bleeding, weakness, fever, dyspnea, syncope, headache, dizziness, GI bleed, back pain, seizure, CVA, palpatations, mental health)? @ -Electrolyte derangement, dehydration, rhabdomyolysis EKG interpreted by me (3pts min.). @ -[As above] X-rays interpreted by me (1pt min.). @ -[None done] CT interpreted by me (1pt min.). @ -Yes, unremarkable for traumatic injuries U/S interpreted by me (1pt. min.). @ -[None done] What testing was considered but not performed or refused? (CT, X-rays, U/S, labs)? Why? @ -[None] What meds were considered but not given or refused? Why? @ -[None] Did you discuss the management of the patient with other professionals (professionals i.e. , PA, ACCOUNTING RECRUITER, lab, RT, psych nurse, social work specialist, banana handler, teacher, ict customer support officer, case management social worker)? Give summary @ -Case discussed with Dr. Mixon Was smoking cessation discussed for >3mins.? @ -[No] Was critical care preformed (if so, how long)? @ -[No] Were there social determinants of health that impacted care today? How? (Homelessness, low income, unemployed, alcoholism, drug addiction, transportation, low edu. Level, literacy, decrease access to med. care, snf, rehab)? @ -[No] Was there de-escalation of care discussed even if they declined (Discuss DNR or withdrawal of care, Hospice)? DNR status @ -[No] What co-morbidities impacted this encounter? (DM, HTN, Smoking, COPD, CAD, Cancer, CVA, ARF, Chemo, Hep., AIDS, mental health diagnosis, sleep apnea, morbid obesity)? @ -[None] Was patient admitted / discharged? Hospital course, mention meds given and route, prescriptions, significant lab abnormalities, going to OR and other pertinent info. @ -See above Undiagnosed new problem with uncertain prognosis? @ -[No] Drug Therapy requiring intensive monitoring for toxicity (Heparin, Nitro, Insulin, Cardizem)? @ -[No] Were any procedures done? @ -[No] Diagnosis/symptom? @ -Intractable pain, intractable muscle spasms Acute, or Chronic, or Acute on Chronic? @ -Acute on Chronic Uncomplicated (without systemic symptoms) or Complicated (systemic symptoms)? @ -[default] Side effects of treatment? @ -[No] Exacerbation, Progression, or Severe Exacerbation? @ -Exacerbation Poses a threat to life or bodily function? How? (Chest pain, [place], [place], pneumonia, PE, COPD, DKA, ARF, appy, cholecystitis, CVA, Diverticulitis, Homicidal, Suicidal, threat to staff... and all critical care pts) @ -[No] - Related Data Home Medications Medication Instructions Recorded Confirmed Medroxyprogesterone Acetate 150 mg IM Q84D 07/10/18 06/02/22 [Depo-Provera] Omalizumab [Xolair] 300 mg SQ Q30D 07/10/18 06/02/22 traZODone HCL 100 mg PO HS@199907/09/19 06/02/22 PARoxetine [Paxil] 20 mg PO HS@199912/18/19 06/02/22 Fluticasone Propionate [Flovent 2 puff INHALATION 06/13/20 06/02/22 Hfa 220 mcg] RT-DAILY@ Loratadine [Claritin] 10 mg PO DAILY@69906/13/20 06/02/22 SUMAtriptan succinate [Imitrex] 100 mg PO BID PRN 06/13/20 06/02/22 Botox Neck Injection 400 mg SQ Q70D 08/30/20 06/02/22 Albuterol Sulfate [Ventolin HFA] 2 puff INHALATION RT-Q6H PRN 09/30/20 06/02/22 levalbuterol HCL 0.63 mg INHALATION RT-QID PRN 09/30/20 06/02/22 Cholecalciferol (Vitamin D3) 125 mcg PO DAILY@69903/01/22 06/02/22 [Vitamin D3 (125 MCG = 5,000 IU)] EPINEPHrine (Auto Inject) [Epipen] 0.3 mg IM ONCE PRN 03/01/22 06/02/22 Metoclopramide [Reglan] 10 mg PO Q28D 03/01/22 06/02/22 Panzyga 10% Infusion 1 dose IV Q28D 03/01/22 06/02/22 diazePAM [Valium] 2 mg PO Q12H PRN 03/01/22 06/02/22 Levothyroxine Sodium [Synthroid] 150 mcg PO DAILY 05/28/22 06/02/22 Previous Rx's Medication Instructions Recorded Metoclopramide HCl [Reglan] 5 mg PO BID PRN 30 Days #60 tablet 03/28/22 Cyclobenzaprine [Flexeril] 10 mg PO QID@,,, 30 Days 05/23/22 #120 tab HYDROcodone/APAP 7.5-325MG [[place] 1 tab PO Q6H PRN 30 Days #120 tab 05/23/22 7.5-325] Allergies Allergy/AdvReac Type Severity Reaction Status Date / Time No Known Allergies Allergy Verified 06/02/22 18:18 Review of Systems ROS Statement: Those systems with pertinent positive or pertinent negative responses have been documented in the HPI. ROS Other: All systems not noted in ROS Statement are negative. Past Medical History Past Medical History: Asthma, Pneumonia Additional Past Medical History / Comment(s): TACHYCARDIA, peptic ulcers, anemia."HAS BEEN ON VENTILATOR IN PAST D/T SEVERE ASTHMA ATTACK," BULEMIA-STATES GETTING BETTER, CONSTIPATION. HERNIATED DISC, cervical cancer. 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 recent antibiotoc for infection in arm-now resolved per pt, COVID 12/30/20 History of Any Multi-Drug Resistant Organisms: MRSA Date of last positivie culture/infection: 2014 MDRO Source:: rt Groin Past Surgical History: Bariatric Surgery, Cholecystectomy, Joint Replacement, Orthopedic Surgery, Tonsillectomy Additional Past Surgical History / Comment(s): Tilt table test, lap band 2007; NASAL FX REPAIR , ORIF LT ELBOW X2, PAIN PROCEDURES for migraines. Surgery on her cervix for cancer, rt foot surgery(Fx), cysto/lithotripsy , left hip replacement 12/2018, lumbar puncture, cervical biopsy in August @[facility], bone tumor removal Past Anesthesia/Blood Transfusion Reactions: Postoperative Nausea & Vomiting (PONV) Past Psychological History: Anxiety, Depression Smoking Status: Never smoker Past Alcohol Use History: None Reported Past Drug Use History: None Reported - Past Family History Mother Family Medical History: Pneumonia Additional Family Medical History / Comment(s): Mother of pneumonia. Patient's son of brain cancer, last mother and father both liver cancer Son(s) Family Medical History: Cancer Additional Family Medical History / Comment(s): Son of brain cancer. Father Family Medical History: Cancer Additional Family Medical History / Comment(s): Liver Cancer. General Exam Limitations: no limitations Course Vital Signs 06/02/22 06/02/22 06/02/22 15:39 16:13 17:08 Temperature 99.0 F Pulse Rate 98 114 H 67 Respiratory 20 20 18 Rate Blood Pressure 129/113 130/107 131/92 O2 Sat by Pulse 95 97 99 Oximetry 06/02/22 18:17 Temperature Pulse Rate 118 H Respiratory 20 Rate Blood Pressure 157/98 O2 Sat by Pulse 96 Oximetry Procedures - Laceration Laceration #1 Consent Obtained: verbal consent Indication: laceration Site: scalp Description: linear (2 cm) Depth: simple, single layer Anesthetic Used: lidocaine 1%, with epi Anesthesia Technique: local infiltration Type of Sutures: other (zachariah) Size of Sutures: other (2 zachariah) Technique: other Patient Tolerated Procedure: well Medical Decision Making - Lab Data Result diagrams: 06/02/22 16:06 06/02/22 16:06 Lab Results 06/02/22 06/02/22 Range/Units 16:06 16:06 WBC 7.1 (3.8-10.6) k/uL RBC 4.19 (3.80-5.40) m/uL Hgb 14.3 (11.4-16.0) gm/dL Hct 39.2 (34.0-46.0) % MCV 93.4 (80.0-100.0) fL MCH 34.1 (25.0-35.0) pg MCHC 36.5 (31.0-37.0) g/dL RDW 12.0 (11.5-15.5) % Plt Count 194 (150-450) k/uL MPV 7.9 Neutrophils % 85 % Lymphocytes % 9 % Monocytes % 4 % Eosinophils % 1 % Basophils % 0 % Neutrophils # 6.0 (1.3-7.7) k/uL Lymphocytes # 0.6 L (1.0-4.8) k/uL Monocytes # 0.3 (0-1.0) k/uL Eosinophils # 0.0 (0-0.7) k/uL Basophils # 0.0 (0-0.2) k/uL Sodium 139 (137-145) mmol/L Potassium 4.8 (3.5-5.1) mmol/L Chloride 109 H (98-107) mmol/L Carbon Dioxide 19 L (22-30) mmol/L Anion Gap 11 mmol/L BUN 28 H (7-17) mg/dL Creatinine 1.09 H (0.52-1.04) mg/dL Est GFR (CKD-EPI)AfAm 73 (>60 ml/min/1.73 sqM) Est GFR (CKD-EPI)NonAf 64 (>60 ml/min/1.73 sqM) Glucose 97 (74-99) mg/dL Calcium 8.6 (8.4-10.2) mg/dL Magnesium 1.7 (1.6-2.3) mg/dL Total Bilirubin 0.6 (0.2-1.3) mg/dL AST 25 (14-36) U/L ALT 18 (4-34) U/L Alkaline Phosphatase 63 (38-126) U/L Total Protein 8.4 H (6.3-8.2) g/dL Albumin 4.6 (3.5-5.0) g/dL Disposition Clinical Impression: Intractable pain, Stiff-man syndrome Disposition: ADMITTED IP TO THIS HOSP Condition: Fair Referrals: Slade Gonzalez MD [Primary Care Provider] - 1-2 days Decision Time: 18:15
[2022-06-02 16:32] LABS: Basophils % (A) 0 %; Eosinophils % (A) 1 %; HCT 39.2 % (34.0-46.0); HGB 14.3 gm/dL (11.4-16.0); Lymphocytes # (A) 0.6 k/uL (1.0-4.8); Lymphocytes % (A) 9 %; MCH 34.1 pg (25.0-35.0); MCHC 36.5 g/dL (31.0-37.0); MCV 93.4 fL (80.0-100.0); Mean Platelet Volume 7.9; Monocytes # (A) 0.3 k/uL (0-1.0); Monocytes % (A) 4 %; Neutrophils % (A) 85 %; Platelet Count 194 k/uL (150-450); RBC 4.19 m/uL (3.80-5.40); WBC 7.1 k/uL (3.8-10.6)
[2022-06-02] MEDS ORDERED: HYDROmorphone 1 MG/ML 1 ML SYRINGE IVP STA ×2 (16:42→17:29)
[2022-06-02 16:45] LABS: Albumin 4.6 g/dL (3.5-5.0); Calcium 8.6 mg/dL (8.4-10.2); Magnesium 1.7 mg/dL (1.6-2.3); Potassium 4.8 mmol/L (3.5-5.1); Total Bilirubin 0.6 mg/dL (0.2-1.3); Total Protein 8.4 g/dL (6.3-8.2)
[2022-06-02] MEDS ORDERED: LIDOCAINE 1%-EPI 1:100,000 20 ML VIAL SQ STA (17:58)
--- NOTE | 2022-06-02 18:09 | CT ---
EXAMINATION TYPE: CT brain galindoine wo con DATE OF EXAM: 06/02/2022 COMPARISON: 06/13/2020 CT brain HISTORY: Head injury from fall. Neck pain CT DLP: 1384 mGycm Automated exposure control for dose reduction was used. Images obtained of the brain and cervical spine with no contrast. Ventricles have normal size. There is no mass effect or midline shift. No sign of intracranial hemorr lety. The calvarium is intact. Skull base is intact. There is normal aeration of the mastoid sinuses. The cervical vertebra have normal alignment. Disc spaces are normal. There is large hypertrophic ante rior bridging osteophyte formation in the mid and lower cervical spine. Facet joints are intact. No c ompression fracture. IMPRESSION: Large hypertrophic anterior osteophyte formation in the cervical spine. No fracture. Negative CT scan of the brain. No change compared to old exam.
[2022-06-02] MEDS ORDERED: NALOXONE 0.4 MG/ML 1 ML VIAL IV PRN (18:45)
[2022-06-02] MEDS ORDERED: ONDANSETRON 4 MG/2 ML VIAL IVP PRN (18:45)
[2022-06-02] MEDS: SODIUM CHLORIDE 0.9% 1,000 ML IV SCH (19:31)
[2022-06-02] MEDS ORDERED: METOCLOPRAMIDE 5 MG TAB PO PRN (20:39)
[2022-06-02] MEDS ORDERED: LEVALBUTEROL HCL 0.63 MG/3 ML INHALATION PRN (20:39)
[2022-06-02] MEDS ORDERED: NON FORMULARY DRUG (Medroxyprogesterone Acetate [Depo-Provera] 150 MG/ML Syringe) IM SCH (20:45)
[2022-06-02] MEDS ORDERED: [UNRECOGNIZED DRUG - OTHER] SQ SCH (20:45)
[2022-06-02] MEDS ORDERED: METOCLOPRAMIDE 10 MG TAB PO SCH (20:45)
[2022-06-02] MEDS ORDERED: OMALIZUMAB 150 MG/ML SYRINGE SQ SCH (20:45)
[2022-06-02] MEDS ORDERED: IMMUNE GLOBULIN 10% IV SCH (20:45)
[2022-06-02] MEDS ORDERED: [UNRECOGNIZED DRUG - OTHER] IV SCH (20:45)
[2022-06-02] MEDS ORDERED: SUMAtriptan succinate 50 MG TAB PO PRN (21:00)
[2022-06-02] MEDS ORDERED: diazePAM 2 MG TAB PO PRN (21:00)
[2022-06-02] MEDS ORDERED: ALBUTEROL NEBULIZED 2.5 MG/3 ML INHALATION PRN (21:00)
[2022-06-02] MEDS: HYDROmorphone 1 MG/ML 1 ML SYRINGE IVP PRN (21:46)
[2022-06-02] MEDS: traZODone HCL 100 MG TAB PO SCH (21:46)
[2022-06-02] MEDS: PARoxetine 20 MG TAB PO SCH (21:46)
[2022-06-03] MEDS: CYCLOBENZAPRINE 10 MG TAB PO SCH ×4 (00:36→18:40)
[2022-06-03] MEDS: HYDROmorphone 1 MG/ML 1 ML SYRINGE IVP PRN ×4 (00:36→20:36)
[2022-06-03] MEDS: LEVOTHYROXINE 75 MCG TAB PO SCH (06:21)
[2022-06-03] MEDS: CHOLECALCIFEROL 125 MCG (5000 IU) TABLET PO SCH (06:21)
[2022-06-03] MEDS: LORATADINE 10 MG TAB PO SCH (06:21)
[2022-06-03] MEDS: HYDROcodone/APAP 7.5-325MG 1 EACH TAB PO PRN ×2 (06:22→21:34)
[2022-06-03] MEDS: FLUTICASONE 220 MCG INHALER INHALATION SCH ×2 (08:20→21:12)
--- NOTE | 2022-06-03 17:06 | P.HPIM ---
History of Present Illness H&P Date: 06/02/22 Chief Complaint: For body spasm 41-year-old female is brought in by EMS. 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 She states that she was diagnosed at [facility] several years ago. States that it causes her bicycle into full spasms. She received IgG infusions regularly. Her last infusion was done just before [place] last year. States that she had spasms that were total body today. She states that she had an episode where her muscles acutely spasm causing her to fall. She states she did strike her head. Patient was here in the emergency department for similar complaint just 5 days ago. States that Valium and Dilaudid usually relieve her symptoms. She states she is in between doctors and does not have a doctor currently managing her spasmodic symptoms. Denies any fever, chills or night sweats. No nausea or vomiting. States that spasms are throughout her body especially in her back, legs and upper extremities. Review of Systems REVIEW OF SYSTEMS: CONSTITUTIONAL: No fever, no malaise, no fatigue. HEENT: No recent visual problems or hearing problems. Denied any sore throat. CARDIOVASCULAR: No chest pain, orthopnea, PND, no palpitations, no syncope. PULMONARY: No shortness of breath, no cough, no hemoptysis. GASTROINTESTINAL: No diarrhea, no nausea, no vomiting, no abdominal pain. NEUROLOGICAL: No headaches, no weakness, no numbness. HEMATOLOGICAL: Denies any bleeding or petechiae. GENITOURINARY: Denies any burning micturition, frequency, or urgency. MUSCULOSKELETAL/RHEUMATOLOGICAL: Denies any joint pain, swelling, or any muscle pain. ENDOCRINE: Denies any polyuria or polydipsia. The rest of the 14-point review of systems is negative. Past Medical History Past Medical History: Asthma, Pneumonia Additional Past Medical History / Comment(s): TACHYCARDIA, peptic ulcers, anemia."HAS BEEN ON VENTILATOR IN PAST D/T SEVERE ASTHMA ATTACK," BULEMIA-STATES GETTING BETTER, CONSTIPATION. HERNIATED DISC, cervical cancer. 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 recent antibiotoc for infection in arm-now resolved per pt, COVID 12/30/20 History of Any Multi-Drug Resistant Organisms: MRSA Date of last positivie culture/infection: 2014 MDRO Source:: rt Groin Past Surgical History: Bariatric Surgery, Cholecystectomy, Joint Replacement, Orthopedic Surgery, Tonsillectomy Additional Past Surgical History / Comment(s): Tilt table test, lap band 2007; NASAL FX REPAIR , ORIF LT ELBOW X2, PAIN PROCEDURES for migraines. Surgery on her cervix for cancer, rt foot surgery(Fx), cysto/lithotripsy , left hip replacement 12/2018, lumbar puncture, cervical biopsy in August @[facility], bone tumor removal Past Anesthesia/Blood Transfusion Reactions: Postoperative Nausea & Vomiting (PONV) Past Psychological History: Anxiety, Depression Smoking Status: Never smoker Past Alcohol Use History: None Reported Past Drug Use History: None Reported - Past Family History Mother Family Medical History: Pneumonia Additional Family Medical History / Comment(s): Mother of pneumonia. Patient's son of brain cancer, last mother and father both liver cancer Son(s) Family Medical History: Cancer Additional Family Medical History / Comment(s): Son of brain cancer. Father Family Medical History: Cancer Additional Family Medical History / Comment(s): Liver Cancer. Medications and Allergies Home Medications Medication Instructions Recorded Confirmed Type Medroxyprogesterone Acetate 150 mg IM Q84D 07/10/18 06/02/22 History [Depo-Provera] Omalizumab [Xolair] 300 mg SQ Q30D 07/10/18 06/02/22 History traZODone HCL 100 mg PO HS@199907/09/19 06/02/22 History PARoxetine [Paxil] 20 mg PO HS@199912/18/19 06/02/22 History Fluticasone Propionate [Flovent 2 puff INHALATION 06/13/20 06/02/22 History Hfa 220 mcg] RT-DAILY@ Loratadine [Claritin] 10 mg PO DAILY@0700 06/13/20 06/02/22 History SUMAtriptan succinate [Imitrex] 100 mg PO BID PRN 06/13/20 06/02/22 History Botox Neck Injection 400 mg SQ Q70D 08/30/20 06/02/22 History Albuterol Sulfate [Ventolin HFA] 2 puff INHALATION RT-Q6H PRN 09/30/20 06/02/22 History levalbuterol HCL 0.63 mg INHALATION RT-QID PRN 09/30/20 06/02/22 History Cholecalciferol (Vitamin D3) 125 mcg PO DAILY@0700 03/01/22 06/02/22 History [Vitamin D3 (125 MCG = 5,000 IU)] EPINEPHrine (Auto Inject) [Epipen] 0.3 mg IM ONCE PRN 03/01/22 06/02/22 History Metoclopramide [Reglan] 10 mg PO Q28D 03/01/22 06/02/22 History Panzyga 10% Infusion 1 dose IV Q28D 03/01/22 06/02/22 History diazePAM [Valium] 2 mg PO Q12H PRN 03/01/22 06/02/22 History Metoclopramide HCl [Reglan] 5 mg PO BID PRN 30 Days #60 tablet 03/28/22 06/02/22 Rx Cyclobenzaprine [Flexeril] 10 mg PO QID@,,,19 30 Days 05/23/22 06/02/22 Rx #120 tab HYDROcodone/APAP 7.5-325MG [[place] 1 tab PO Q6H PRN 30 Days #120 tab 05/23/22 06/02/22 Rx 7.5-325] Levothyroxine Sodium [Synthroid] 150 mcg PO DAILY 05/28/22 06/02/22 History Allergies Allergy/AdvReac Type Severity Reaction Status Date / Time No Known Allergies Allergy Verified 06/02/22 18:18 Physical Exam Vitals: Vital Signs Temp Pulse Resp BP Pulse Ox 06/02/22 18:17 118 H 20 157/98 96 06/02/22 17:08 67 18 131/92 99 06/02/22 16:13 114 H 20 130/107 97 06/02/22 15:39 99.0 F 98 20 129/113 95 Intake and Output 06/02/22 06/02/22 06/02/22 06:59 14:59 22:59 Other: Weight 72.575 kg General Impression: Alert and oriented x3, acute distress secondary to pain HEENT: 1 superficial scalp laceration to the posterior superior scalp, extra- ocular movements intact, pupils equal and reactive to light bilaterally, mucous membranes moist. Cardiovascular: Heart regular rate and rhythm Chest: Able to complete full sentences, no retractions, no tachypnea Abdomen: abdomen soft, non-tender, non-distended, no organomegaly Musculoskeletal: Pulses present and equal in all extremities, no peripheral edema Motor: no focal deficits noted Neurological: CN II-XII grossly intact, spasms throughout the lower extremities with spasmodic plantar flexion of the right lateral legs. Skin: Intact with no visualized rashes Psych: Anxious Results CBC & Chem 7: 06/02/22 16:06 06/02/22 16:06 Labs: Abnormal Lab Results - Last 24 Hours (Table) 06/02/22 06/02/22 Range/Units 16:06 16:06 Lymphocytes # 0.6 L (1.0-4.8) k/uL Chloride 109 H (98-107) mmol/L Carbon Dioxide 19 L (22-30) mmol/L BUN 28 H (7-17) mg/dL Creatinine 1.09 H (0.52-1.04) mg/dL Total Protein 8.4 H (6.3-8.2) g/dL Assessment and Plan Assessment: 1. Intractable pain - Patient has been placed on Dilaudid 1 mg IV every 3 hours along with hydrocodone 7.5 mg every 6 hours when necessary - Pain management is consulted 2. Stiff man syndrome; remains on diazepam 2 mg every 12 hours when necessary 3. Mild renal injury/dehydration; continue with IV fluid hydration with normal saline; we will monitor strict CARLA's, daily weights, renal function and electrolytes; avoid nephrotoxins and hypotension 4. Hypothyroidism; levothyroxin 150 MCG daily
--- NOTE | 2022-06-03 17:07 | P.PN ---
Subjective Progress Note Date: 06/03/22 41-year-old female is brought in by EMS. 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 She states that she was diagnosed at [facility] several years ago. States that it causes her bicycle into full spasms. She received IgG infusions regularly. Her last infusion was done just before [place] last year. States that she had spasms that were total body today. She states that she had an episode where her muscles acutely spasm causing her to fall. She states she did strike her head. Patient was here in the emergency department for similar complaint just 5 days ago. States that Valium and Dilaudid usually relieve her symptoms. She states she is in between doctors and does not have a doctor currently managing her spasmodic symptoms. Denies any fever, chills or night sweats. No nausea or vomiting. States that spasms are throughout her body especially in her back, legs and upper extremities. Objective - Vital Signs Vital signs: Vital Signs Temp 97.6 F 06/03/22 07:00 Pulse 83 06/03/22 07:00 Resp 18 06/03/22 07:00 BP 104/70 06/03/22 07:00 Pulse Ox 100 06/03/22 07:00 FiO2 Intake & Output 06/02/22 06/03/22 06/03/22 18:59 06:59 18:59 Intake Total 120 Balance 120 Weight 72.575 kg 72.575 kg Intake: Oral 120 Other: Voiding Method Toilet # Voids 2 - Exam PHYSICAL EXAMINATION: GENERAL: The patient is alert and oriented x3, not in any acute distress. Well developed, well nourished. HEENT: Pupils are round and equally reacting to light. EOMI. No scleral icterus. No conjunctival pallor. Normocephalic, atraumatic. No pharyngeal erythema. No thyromegaly. CARDIOVASCULAR: S1 and S2 present. No murmurs, rubs, or gallops. PULMONARY: Chest is clear to auscultation, no wheezing or crackles. ABDOMEN: Soft, nontender, nondistended, normoactive bowel sounds. No palpable o rganomegaly. MUSCULOSKELETAL: No joint swelling or deformity. EXTREMITIES: No cyanosis, clubbing, or pedal edema. NEUROLOGICAL: Gross neurological examination did not reveal any focal deficits. SKIN: No rashes. - Labs CBC & Chem 7: 06/02/22 16:06 06/02/22 16:06 Labs: Abnormal Lab Results - Last 24 Hours (Table) 06/02/22 06/02/22 Range/Units 16:06 16:06 Lymphocytes # 0.6 L (1.0-4.8) k/uL Chloride 109 H (98-107) mmol/L Carbon Dioxide 19 L (22-30) mmol/L BUN 28 H (7-17) mg/dL Creatinine 1.09 H (0.52-1.04) mg/dL Total Protein 8.4 H (6.3-8.2) g/dL Assessment and Plan Assessment: 1. Intractable pain - Patient has been placed on Dilaudid 1 mg IV every 3 hours along with hydrocodone 7.5 mg every 6 hours when necessary - Pain management is consulted 2. Stiff man syndrome; remains on diazepam 2 mg every 12 hours when necessary 3. Mild renal injury/dehydration; continue with IV fluid hydration with normal saline; we will monitor strict CARLA's, daily weights, renal function and electrolytes; avoid nephrotoxins and hypotension 4. Hypothyroidism; levothyroxin 150 MCG daily
[2022-06-03] MEDS: SODIUM CHLORIDE 0.9% 1,000 ML IV SCH (20:26)
[2022-06-03] MEDS: traZODone HCL 100 MG TAB PO SCH (20:33)
[2022-06-03] MEDS: PARoxetine 20 MG TAB PO SCH (20:33)
[2022-06-04] MEDS: CYCLOBENZAPRINE 10 MG TAB PO SCH ×5 (02:33→23:50)
[2022-06-04] MEDS: LEVOTHYROXINE 75 MCG TAB PO SCH (06:00)
[2022-06-04] MEDS: LORATADINE 10 MG TAB PO SCH (06:01)
[2022-06-04] MEDS: HYDROmorphone 1 MG/ML 1 ML SYRINGE IVP PRN ×3 (06:01→14:40)
[2022-06-04] MEDS: CHOLECALCIFEROL 125 MCG (5000 IU) TABLET PO SCH (06:01)
[2022-06-04] MEDS: FLUTICASONE 220 MCG INHALER INHALATION SCH ×2 (06:58→20:36)
[2022-06-04 10:50] LABS: Basophils % (A) 0 %; Eosinophils # (A) 0.1 k/uL (0-0.7); Eosinophils % (A) 2 %; HCT 31.6 % (34.0-46.0); HGB 11.4 gm/dL (11.4-16.0); Lymphocytes % (A) 18 %; MCH 33.8 pg (25.0-35.0); Mean Platelet Volume 7.8; Monocytes # (A) 0.3 k/uL (0-1.0); Monocytes % (A) 5 %; Neutrophils # (A) 4.1 k/uL (1.3-7.7); Neutrophils % (A) 74 %; Platelet Count 151 k/uL (150-450); RBC 3.36 m/uL (3.80-5.40); RDW 11.5 % (11.5-15.5); WBC 5.5 k/uL (3.8-10.6)
[2022-06-04 11:07] LABS: African American GFR (CKD) 80 (>60 ml/min/1.73 sqM); Anion Gap 3 mmol/L; Blood Urea Nitrogen 14 mg/dL (7-17); Calcium 8.5 mg/dL (8.4-10.2); Carbon Dioxide 26 mmol/L (22-30); Chloride 110 mmol/L (98-107); Glucose 92 mg/dL (74-99); Non-African American GFR(CKD) 69 (>60 ml/min/1.73 sqM); Potassium 4.1 mmol/L (3.5-5.1); Sodium 139 mmol/L (137-145)
[2022-06-04] MEDS: methylPREDNISolone SOD SUCCI 40 MG/ML 1 ML VIAL IV SCH ×2 (14:40→20:35)
--- NOTE | 2022-06-04 15:24 | P.PAINPG ---
Objective - Vital Signs Vital signs: Vital Signs Temp 98.5 F 06/04/22 07:00 Pulse 88 06/04/22 07:00 Resp 18 06/04/22 07:00 BP 89/56 06/04/22 07:00 Pulse Ox 96 06/04/22 07:00 FiO2 Intake & Output 06/03/22 06/04/22 06/04/22 18:59 06:59 18:59 Intake Total 240 222 Balance 240 222 Intake: Oral 240 222 Other: Voiding Method Toilet # Voids 1 2 - Labs CBC & Chem 7: 06/04/22 10:17 06/04/22 10:17 Labs: Abnormal Lab Results - Last 24 Hours (Table) 06/04/22 06/04/22 Range/Units 10:17 10:17 RBC 3.36 L (3.80-5.40) m/uL Hct 31.6 L (34.0-46.0) % Chloride 110 H (98-107) mmol/L PQRS Measure Charge Sheet Comment: HISTORY OF PRESENT ILLNESS: 41 yr old inpatient female as a referral from Dr Mixon presents today w severe and chronic neck, chest and BLE 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 Pt states pain level is at 10 /10 in intensity and accompanied w muscle spasms in the arms, chest and legs, constant, achy/ sore in character without radiating pain. Pain is provoked by any movement. Pain is alleviated by medications, monthly IgG infusions from her established neurologist, laying on her side and rest. 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 Fa- Liver CA. Son- Brain CA/ . All: NKDA Meds: See list REVIEW OF ORGAN SYSTEMS: CONSTITUTIONAL: No fevers or chills. No recent weight loss. NEUROLOGICAL: + numbness and tingling along the distal extremities. No seizure disorders or headaches. MUSCULOSKELETAL: + pain PSYCHIATRIC: Denies current depression or suicidal thoughts. Physical Examinations : Constitutional : Cooperative , not in acute distress . Neurologic : Cranial nerve II to XII intact. No focal neurological deficits. Psychiatric : alert & oriented x 3. Matching mood & appropriate affect. Judgment & insight intact. Musculoskeletal : Cervical Spine Motor strength in the deltoid and biceps: Normal right side. Normal Left side Motor strength biceps and the wrist extensors: Normal right side . Normal left side Motor strength in the triceps muscle: Normal right side. Normal left side Deep tendon reflexes: Normal at the biceps. Normal at Brachioradialis. Normal at triceps Vertebral body tenderness to deep palpation over Cervical facet loading test: positive bilaterally Spurling test: positive bilaterally Neck distraction test: positive bilaterally Valencia sign: positive bilaterally Lumbar spine Motor strength lower extremities ,thigh and legs 5/5 Right side , 5/5 Left side Deep tendon reflexes : Normal Knee Jerk. Normal Ankle Jerk Vertebral body tenderness over Lumbar facet Loading Test: positive Right / positive Left Range of motion of the lumbar spine Flexion 30 degrees, extension 10 degrees Straight Leg Raise test: Left/ Right positive at degree Mary test: positive right / positive left. Severe tenderness over the Sacroiliac joint on the Right / Left sides Gaenslen test: positive bilaterally Seated flexion test: positive bilaterally. 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 She has been started on IV steroids and is on 3 narcotic medications on an as needed basis, Dilaudid 1mg IVP Q3H prn pain, though her last dose was 1 hr ago and before that on 06/03/22; on [place] 7.5/325mg Q6H prn pain with her last dose on 06/02/22; and on Diazepam 2mg BID prn with her last dose on 06/03/22. If IV steroids are i neffective, could consider Toradol 2mL/30mg IVP x 1 with option to add additional doses. All questions answered. I have spent greater than 30 minutes on patient care today. Dr Kelly was available by phone for the evaluation of this patient. The time was used to review the medical records including relevant urine studies and Prescription history (MAPs), review of the available imaging, evaluation and examination of the patient, coordination of care with the medical staff and if applicable refe rring physicians, as well as creation of the medical record Pain Comment: see MAR documentation. PQRS Narrative: Smoking Status Never smoker Narcotic Agreement Date Signed 02/05/22 Blood Pressure [Right Arm] 89/56 Blood Pressure [Left Arm] 116/81 Blood Pressure 120/69 Pain Intensity [Generalized] 0 Pain Intensity 10 Pain Scale Used Numeric (1 - 10) Scale Used Numeric (1 - 10) Hx Alcohol Use (MH) No Home Medications: Ambulatory Orders Medroxyprogesterone Acetate [Depo-Provera] 150 mg IM Q84D 07/10/18 Omalizumab [Xolair] 300 mg SQ Q30D 07/10/18 traZODone HCL 100 mg PO HS@199907/09/19 PARoxetine [Paxil] 20 mg PO HS@199912/18/19 Fluticasone Propionate [Flovent Hfa 220 mcg] 2 puff INHALATION RT- DAILY@07,199906/13/20 Loratadine [Claritin] 10 mg PO DAILY@0706/13/20 SUMAtriptan succinate [Imitrex] 100 mg PO BID PRN 06/13/20 Botox Neck Injection 400 mg SQ Q70D 08/30/20 Albuterol Sulfate [Ventolin HFA] 2 puff INHALATION RT-Q6H PRN 09/30/20 levalbuterol HCL 0.63 mg INHALATION RT-QID PRN 09/30/20 Cholecalciferol (Vitamin D3) [Vitamin D3 (125 MCG = 5,000 IU)] 125 mcg PO DAILY@0700 03/01/22 EPINEPHrine (Auto Inject) [Epipen] 0.3 mg IM ONCE PRN 03/01/22 Metoclopramide [Reglan] 10 mg PO Q28D 03/01/22 Panzyga 10% Infusion 1 dose IV Q28D 03/01/22 diazePAM [Valium] 2 mg PO Q12H PRN 03/01/22 Metoclopramide HCl [Reglan] 5 mg PO BID PRN 30 Days #60 tablet 03/28/22 Cyclobenzaprine [Flexeril] 10 mg PO QID@01,07,13,19 30 Days #120 tab 05/23/22 HYDROcodone/APAP 7.5-325MG [[place] 7.5-325] 1 tab PO Q6H PRN 30 Days #120 tab 05/23/22 Levothyroxine Sodium [Synthroid] 150 mcg PO DAILY 05/28/22 Controlled Substance Measures - Controlled Substance Measures Is patient prescribed a controlled substance at discharge?: No
[2022-06-04] MEDS: HYDROcodone/APAP 7.5-325MG 1 EACH TAB PO PRN (15:33)
[2022-06-04] MEDS: KETOROLAC 15 MG/ML 1 ML VIAL IVP SCH ×2 (16:45→20:35)
[2022-06-04] MEDS: HYDROmorphone 0.5 MG/0.5 ML SYRINGE IVP PRN ×2 (18:32→23:50)
[2022-06-04] MEDS: SODIUM CHLORIDE 0.9% 1,000 ML IV SCH (18:52)
[2022-06-04] MEDS ORDERED: Magnesium Replacement Protocol 1 EACH MISC MISCELLANE PRN (19:19)
--- NOTE | 2022-06-04 19:21 | P.PN ---
Subjective Progress Note Date: 06/04/22 41-year-old female is brought in by EMS. 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 She states that she was diagnosed at [facility] several years ago. States that it causes her bicycle into full spasms. She received IgG infusions regularly. Her last infusion was done just before [place] last year. States that she had spasms that were total body today. She states that she had an episode where her muscles acutely spasm causing her to fall. She states she did strike her head. Patient was here in the emergency department for similar complaint just 5 days ago. States that Valium and Dilaudid usually relieve her symptoms. She states she is in between doctors and does not have a doctor currently managing her spasmodic symptoms. Denies any fever, chills or night sweats. No nausea or vomiting. States that spasms are throughout her body especially in her back, legs and upper extremities. 06/04/2022 Patient is seen in follow-up this morning continues to report significant pain especially bilateral lower extremity pain. Patient having difficulty with walking and does use a walker reports she has been falling more frequently with her most recent fall causing a laceration to her head. Patient does follow with neurologist in the outpatient setting and pain management Dr. Kelly who has been consulted and pending. Patient reports she is in between neurology and to start with her new one in June. Patient has been receiving IVIG over the last 4 months and continues to report uncontrolled pain. Patient is currently on IV Dilaudid every 3 hours along with [place] and will add IV steroids. Patient is afebrile denies chest pain or shortness of breath. Patient denies nausea or vomiting and tolerating diet. Will have PT/OT evaluate the patient which is currently pending. Review of systems: Constitutional: No reports of fatigue, fever, or chills Cardiovascular: No reports of chest pain or palpitations Respiratory: No reports of shortness of breath or cough GI: No reports of nausea, vomiting, or diarrhea : No reports of dysuria or retention Neurovascular: No reports of weakness or numbness All medications have been reviewed Active Medications Hydrocodone Bitart/Acetaminophen (Hydrocodone/Apap 7.5-325mg 1 Each Tab) 1 each PO Q6H PRN PRN Reason: Pain Last Admin: 06/04/22 15:33 Dose: 1 each Albuterol Sulfate (Albuterol Nebulized 2.5 Mg/3 Ml) 2 mg INHALATION RT-Q6H PRN PRN Reason: Shortness Of Breath Cholecalciferol (Cholecalciferol 125 Mcg (5000 Iu) Tablet) 125 mcg PO DAILY@0700 [facility] Last Admin: 06/04/22 06:01 Dose: 125 mcg Cyclobenzaprine HCl (Cyclobenzaprine 10 Mg Tab) 10 mg PO QID@01,07,13,19 [facility] Last Admin: 06/04/22 12:38 Dose: 10 mg Diazepam (Diazepam 2 Mg Tab) 2 mg PO Q12H PRN PRN Reason: Anxiety Last Admin: 06/03/22 10:43 Dose: 2 mg Epinephrine HCl (Epinephrine 1 Mg/Ml 1 Ml Vial) 0.3 mg IM ONCE PRN PRN Reason: Anaphylaxis Fluticasone Propionate (Fluticasone 220 Mcg Inhaler) 2 puff INHALATION RT- DAILY@07,1999 [facility] Last Admin: 06/04/22 06:58 Dose: 2 puff Hydromorphone HCl (Hydromorphone 1 Mg/Ml 1 Ml Syringe) 1 mg IVP Q3HR PRN PRN Reason: Severe Pain (Scale 7 to 10) Last Admin: 06/04/22 14:40 Dose: 1 mg Sodium Chloride (Saline 0.9%) 1,000 mls @ 20 mls/hr IV .Q24H [facility] Last Admin: 06/03/22 20:26 Dose: Not Given Levothyroxine Sodium (Levothyroxine 75 Mcg Tab) 150 mcg PO DAILY@0630 [facility] Last Admin: 06/04/22 06:00 Dose: 150 mcg Loratadine (Loratadine 10 Mg Tab) 10 mg PO DAILY@0700 [facility] Last Admin: 06/04/22 06:01 Dose: 10 mg Methylprednisolone Sodium Succinate (Methylprednisolone Sod Succi 40 Mg/Ml 1 Ml Vial) 20 mg IV Q12HR [facility] Last Admin: 06/04/22 14:40 Dose: 20 mg Metoclopramide HCl (Metoclopramide 5 Mg Tab) 5 mg PO BID PRN PRN Reason: Nausea Naloxone HCl (Naloxone 0.4 Mg/Ml 1 Ml Vial) 0.2 mg IV Q2M PRN PRN Reason: Opioid Reversal Non-Formulary Medication (Levalbuterol Hcl [Levalbuterol Hcl]) 0.63 mg INHALATION RT-QID PRN PRN Reason: Shortness Of Breath Ondansetron HCl (Ondansetron 4 Mg/2 Ml Vial) 4 mg IVP Q8HR PRN PRN Reason: Nausea And Vomiting Paroxetine HCl (Paroxetine 20 Mg Tab) 20 mg PO HS@1999 [facility] Last Admin: 06/03/22 20:33 Dose: 20 mg Sumatriptan Succinate (Sumatriptan Succinate 50 Mg Tab) 100 mg PO BID PRN PRN Reason: Migraine Headache Trazodone HCl (Trazodone Hcl 100 Mg Tab) 100 mg PO HS@1999 [facility] Last Admin: 06/03/22 20:33 Dose: 100 mg PHYSICAL EXAMINATION: GENERAL: The patient is alert and oriented x3, not in any acute distress. Well developed, well nourished. HEENT: Pupils are round and equally reacting to light. EOMI. No scleral icterus. No conjunctival pallor. Normocephalic, atraumatic. No pharyngeal erythema. No thyromegaly. CARDIOVASCULAR: S1 and S2 present. No murmurs, rubs, or gallops. PULMONARY: Chest is clear to auscultation, no wheezing or crackles. ABDOMEN: Soft, nontender, nondistended, normoactive bowel sounds. No palpable organomegaly. MUSCULOSKELETAL: No joint swelling or deformity. EXTREMITIES: No cyanosis, clubbing, or pedal edema. NEUROLOGICAL: Gross neurological examination did not reveal any focal deficits. SKIN: No rashes. Assessment: Intractable pain History of stiff man syndrome Mild renal injury likely due to dehydration Hypothyroidism GI prophylaxis DVT prophylaxis Full code Plan: Recommend continue current medications and pain management, will decrease the dose of IV Dilaudid and add Toradol along with start the patient on IV steroids Pain management consulted and pending Encouraged increased activity as tolerated will have physical therapy evaluate the patient Continue to encourage oral intake Patient will need follow-up sooner rather than later with her new neurologist at [facility] and also continue with pain management in the outpatient setting Possible discharge in 24 hours The impression and plan of care has been dictated by Alexandrea Schultz, Nurse Practitioner as directed. Dr. Daquan MD I have performed a history and examination and MDM of this patient, discussed the same with the dictator, and agree with the dictator's assessment and plan as written ,documented as a scribe. Based on total visit time, I have performed more than 50% of the visit. Objective - Vital Signs Vital signs: Vital Signs Temp 98.5 F 06/04/22 07:00 Pulse 88 06/04/22 07:00 Resp 18 06/04/22 07:00 BP 89/56 06/04/22 07:00 Pulse Ox 96 06/04/22 07:00 FiO2 Intake & Output 06/03/22 06/04/22 06/04/22 18:59 06:59 18:59 Intake Total 240 222 Balance 240 222 Intake: Oral 240 222 Other: Voiding Method Toilet # Voids 1 2 - Labs CBC & Chem 7: 06/04/22 10:17 06/04/22 10:17
[2022-06-04] MEDS: MAGNESIUM SULFATE-D5W PMX 1 GM in DEXTROSE/WATER 1 100ML.BAG IVPB SCH ×2 (20:34→21:53)
[2022-06-04] MEDS: traZODone HCL 100 MG TAB PO SCH (20:37)
[2022-06-04] MEDS: PARoxetine 20 MG TAB PO SCH (20:37)
[2022-06-05] MEDS: KETOROLAC 15 MG/ML 1 ML VIAL IVP SCH ×2 (04:52→11:07)
[2022-06-05] MEDS: LORATADINE 10 MG TAB PO SCH (06:09)
[2022-06-05] MEDS: LEVOTHYROXINE 75 MCG TAB PO SCH (06:09)
[2022-06-05] MEDS: CHOLECALCIFEROL 125 MCG (5000 IU) TABLET PO SCH (06:09)
[2022-06-05] MEDS: CYCLOBENZAPRINE 10 MG TAB PO SCH (06:09)
[2022-06-05] MEDS: FLUTICASONE 220 MCG INHALER INHALATION SCH (07:59)
[2022-06-05] MEDS: HYDROcodone/APAP 7.5-325MG 1 EACH TAB PO PRN (08:27)
[2022-06-05 08:29] VITALS: BP 108/70; PULSE 81; RESP 16; TEMP 98
[2022-06-05] MEDS: methylPREDNISolone SOD SUCCI 40 MG/ML 1 ML VIAL IV SCH (09:58)
--- NOTE | 2022-06-05 19:51 | P.DS ---
Providers Date of admission: 06/02/22 18:45 Expected date of discharge: 06/05/22 Attending physician: Aki Mixon MD Consults: 06/02/22 18:33 Consult Physician Routine Consulting Provider: Fabien Kelly Consult Reason/Comments: spasms Do you want consulting provider notified?: Yes Primary care physician: Slade Gonzalez Hospital Course: Final diagnosis Intractable pain History of stiff man syndrome Mild renal injury likely due to dehydration Hypothyroidism GI prophylaxis DVT prophylaxis Full code Discharge disposition Patient is being discharged in a stable condition with guarded prognosis to home. Patient will follow-up with Dr. Gonzalez in the outpatient setting upon discharge. Patient is to follow-up with her new neurologist out of [facility] outpatient as scheduled. Total time taken is greater than 35 minutes. Hospital course This is a 41-year-old female who was recently admitted with bilateral lower extremity pain and difficulty in ambulating and recent fall. Patient has history of stiff person syndrome and follows with neurologist although changing to another specialist out of [facility] and is due to follow up in June. Patient also has been receiving IVIG infusions and continues to follow with pain management outpatient. Patient was given Toradol along with steroids and will continue a Medrol Dosepak on discharge. Patient reports feeling somewhat improved and asking for discharge today. Patient encouraged to call neurologist and follow-up sooner rather than later. Currently no reports of chest pain, shortness of breath, or palpitations. Patient is afebrile. No reports of nausea or vomiting and patient is tolerating diet. Patient will be discharged home today. Patient with zachariah in her head from previous fall that were placed in the ER recommend following up with primary care provider in the next 7-10 days for removal. Physical exam: Gen: This is a 41-year-old female who is awake, alert and oriented 3, well- developed, well-nourished HEENT: Head is atraumatic, normocephalic. Pupils equal, round. Sclerae is anicteric. NECK: Supple. No JVD. No lymphadenopathy. No thyromegaly. LUNGS: Clear to auscultation. No wheezes or rhonchi. No intercostal retractions. HEART: Regular rate and rhythm. No murmur. ABDOMEN: Soft. Bowel sounds are present. No masses. No tenderness. EXTREMITIES: No pedal edema. No calf tenderness. NEUROLOGICAL: Patient is awake, alert and oriented x3. Cranial nerves 2 through 12 are grossly intact. Please refer to medication reconciliation sheet for a list of medications. The impression and plan of care has been dictated by Alexandrea Schultz, Nurse Practitioner as directed. Dr. Daquan MD I have performed a history and examination and MDM of this patient, discussed the same with the dictator, and agree with the dictator's assessment and plan as written ,documented as a scribe. Based on total visit time, I have performed more than 50% of the visit. Patient Condition at Discharge: Fair Plan - Discharge Summary New Discharge Prescriptions: New methylPREDNISolone Dose Pack [Medrol Dose Pack] 4 mg PO DIRECTED #21 tab Continue Omalizumab [Xolair] 300 mg SQ Q30D Medroxyprogesterone Acetate [Depo-Provera] 150 mg IM Q84D traZODone HCL 100 mg PO HS@1999 PARoxetine [Paxil] 20 mg PO HS@2000 Loratadine [Claritin] 10 mg PO DAILY@0700 SUMAtriptan succinate [Imitrex] 100 mg PO BID PRN PRN Reason: Migraine Headache Fluticasone Propionate [Flovent Hfa 220 mcg] 2 puff INHALATION RT- DAILY@0700,1999 Botox Neck Injection 400 mg SQ Q70D EPINEPHrine (Auto Inject) [Epipen] 0.3 mg IM ONCE PRN PRN Reason: Anaphylaxis Cholecalciferol (Vitamin D3) [Vitamin D3 (125 MCG = 5,000 IU)] 125 mcg PO DAILY@0700 Metoclopramide HCl [Reglan] 5 mg PO BID PRN 30 Days #60 tablet PRN Reason: Nausea Cyclobenzaprine [Flexeril] 10 mg PO QID@01,07,13,19 30 Days #120 tab levalbuterol HCL 0.63 mg INHALATION RT-QID PRN PRN Reason: Shortness Of Breath Albuterol Sulfate [Ventolin HFA] 2 puff INHALATION RT-Q6H PRN PRN Reason: Shortness Of Breath Metoclopramide [Reglan] 10 mg PO Q28D diazePAM [Valium] 2 mg PO Q12H PRN PRN Reason: Anxiety Panzyga 10% Infusion 1 dose IV Q28D HYDROcodone/APAP 7.5-325MG [[place] 7.5-325] 1 tab PO Q6H PRN 30 Days #120 tab PRN Reason: Pain Levothyroxine Sodium [Synthroid] 150 mcg PO DAILY Discharge Medication List Medroxyprogesterone Acetate [Depo-Provera] 150 mg IM Q84D 07/10/18 [History] Omalizumab [Xolair] 300 mg SQ Q30D 07/10/18 [History] traZODone HCL 100 mg PO HS@199907/09/19 [History] PARoxetine [Paxil] 20 mg PO HS@199912/18/19 [History] Fluticasone Propionate [Flovent Hfa 220 mcg] 2 puff INHALATION RT- DAILY@699,199906/13/20 [History] Loratadine [Claritin] 10 mg PO DAILY@0706/13/20 [History] SUMAtriptan succinate [Imitrex] 100 mg PO BID PRN 06/13/20 [History] Botox Neck Injection 400 mg SQ Q70D 08/30/20 [History] Albuterol Sulfate [Ventolin HFA] 2 puff INHALATION RT-Q6H PRN 09/30/20 [History] levalbuterol HCL 0.63 mg INHALATION RT-QID PRN 09/30/20 [History] Cholecalciferol (Vitamin D3) [Vitamin D3 (125 MCG = 5,000 IU)] 125 mcg PO DAILY@0700 03/01/22 [History] EPINEPHrine (Auto Inject) [Epipen] 0.3 mg IM ONCE PRN 03/01/22 [History] Metoclopramide [Reglan] 10 mg PO Q28D 03/01/22 [History] Panzyga 10% Infusion 1 dose IV Q28D 03/01/22 [History] diazePAM [Valium] 2 mg PO Q12H PRN 03/01/22 [History] Metoclopramide HCl [Reglan] 5 mg PO BID PRN 30 Days #60 tablet 03/28/22 [Rx] Cyclobenzaprine [Flexeril] 10 mg PO QID@01,07,,19 30 Days #120 tab 05/23/22 [Rx] HYDROcodone/APAP 7.5-325MG [[place] 7.5-325] 1 tab PO Q6H PRN 30 Days #120 tab 05/23/22 [Rx] Levothyroxine Sodium [Synthroid] 150 mcg PO DAILY 05/28/22 [History] methylPREDNISolone Dose Pack [Medrol Dose Pack] 4 mg PO DIRECTED #21 tab 06/05/22 [Rx] Follow up Appointment(s)/Referral(s): Slade Gonzalez MD [Primary Care Provider] - 1-2 days Patient Instructions/Handouts: Pain Management (DC), Chronic Pain (DC) Activity/Diet/Wound Care/Special Instructions: Activity Limited until follow-up Follow-up primary care provider on discharge Follow-up with neurologist Follow-up with pain management outpatient Discharge Disposition: HOME SELF-CARE
== END 2022-06-05 12:10 | disposition home or self-care (01) ==
LOC: EC 15:33 → 6NMEDSUR 18:45
PROVIDERS: ADMIT Internal Medicine; ATTEND Internal Medicine
DX: G25.82 Stiff-man syndrome (principal); S01.01XA Laceration without foreign body of scalp, initial encounter; E86.0 Dehydration; G31.9 Degenerative disease of nervous system, unspecified; G24.9 Dystonia, unspecified; E03.9 Hypothyroidism, unspecified; G43.909 Migraine, unspecified, not intractable, without status migrainosus; J45.909 Unspecified asthma, uncomplicated; W19.XXXA Unspecified fall, initial encounter; F32.9 Major depressive disorder, single episode, unspecified; F41.9 Anxiety disorder, unspecified; R29.6 Repeated falls; Z79.51 Long term (current) use of inhaled steroids; Z79.890 Hormone replacement therapy; Z79.899 Other long term (current) drug therapy; Z87.01 Personal history of pneumonia (recurrent); Z86.14 Personal history of Methicillin resistant Staphylococcus aureus infection; Z87.11 Personal history of peptic ulcer disease; Z87.442 Personal history of urinary calculi; Z85.41 Personal history of malignant neoplasm of cervix uteri; Z86.16 Personal history of COVID-19; Z90.49 Acquired absence of other specified parts of digestive tract; Z98.84 Bariatric surgery status; Z96.642 Presence of left artificial hip joint; Z98.890 Other specified postprocedural states; Z86.59 Personal history of other mental and behavioral disorders; Z80.0 Family history of malignant neoplasm of digestive organs; Z80.8 Family history of malignant neoplasm of other organs or systems
CPT/HCPCS: 96376 ×5; 96365; 96366; 96375 ×2; 12001; 96361; 99285; 36415; 94640 ×5; 93005; 97163; 97167; 80053; 80048; 83735 ×2; 85025 ×2; 72125; 70450; G0378 ×4; J2920 ×2; J3360; J1170 ×4; J3475; J1885 ×2

== ENCOUNTER 2022-08-29 10:32 | Emergency (ER) | payer MEDICARE ==
[2022-08-29 10:40] VITALS: TEMP 98.5
--- NOTE | 2022-08-29 11:56 | XR ---
EXAMINATION TYPE: XR chest 2V DATE OF EXAM: 08/29/2022 COMPARISON: Chest x-ray May 28, 2022 HISTORY: Cough. TECHNIQUE: Frontal and lateral views of the chest are obtained. FINDINGS: There is no suspicious focal air space opacity, pleural effusion, or pneumothorax seen. T he cardiac silhouette size is stable and within normal limits. The scoliosis is redemonstrated. Cho lecystectomy clips are present on lateral view. IMPRESSION: No acute pulmonary infiltrate. No significant change from prior.
--- NOTE | 2022-08-29 13:13 | ED ---
General Adult HPI - General Chief complaint: Upper Respiratory Infection Stated complaint: Asthma Complications Time Seen by Provider: 08/29/22 10:50 Source: patient, RN notes reviewed Mode of arrival: ambulatory - History of Present Illness Initial comments: 41-year-old female past medical history of asthma presents to the emergency department with chief complaint of cough and congestion. She states symptoms started 2 days ago. She states she has been doing her nebulizer and inhaler at home which helps. States that she has been in contact with her daughter who is also sick. Denies fever, chills, nausea, vomiting, diarrhea. - Related Data Home Medications Medication Instructions Recorded Confirmed Medroxyprogesterone Acetate 150 mg IM Q84D 07/10/18 08/29/22 [Depo-Provera] Omalizumab [Xolair] 300 mg SQ Q30D 07/10/18 08/29/22 traZODone HCL 100 mg PO HS@199907/09/19 08/29/22 PARoxetine [Paxil] 20 mg PO HS@199912/18/19 08/29/22 Fluticasone Propionate [Flovent 2 puff INHALATION 06/13/20 08/29/22 Hfa 220 mcg] RT-DAILY@ Loratadine [Claritin] 10 mg PO DAILY@0700 06/13/20 08/29/22 SUMAtriptan succinate [Imitrex] 100 mg PO BID PRN 06/13/20 08/29/22 Botox Neck Injection 400 mg SQ Q70D 08/30/20 08/29/22 Albuterol Sulfate [Ventolin HFA] 2 puff INHALATION RT-Q6H PRN 09/30/20 08/29/22 levalbuterol HCL 0.63 mg INHALATION RT-QID PRN 09/30/20 08/29/22 Cholecalciferol (Vitamin D3) 125 mcg PO DAILY@0700 03/01/22 08/29/22 [Vitamin D3 (125 MCG = 5,000 IU)] EPINEPHrine (Auto Inject) [Epipen] 0.3 mg IM ONCE PRN 03/01/22 08/29/22 Metoclopramide [Reglan] 10 mg PO Q28D 03/01/22 08/29/22 Panzyga 10% Infusion 1 dose IV Q28D 03/01/22 08/29/22 diazePAM [Valium] 2 mg PO Q12H PRN 03/01/22 08/29/22 Levothyroxine Sodium [Synthroid] 150 mcg PO DAILY 05/28/22 08/29/22 Previous Rx's Medication Instructions Recorded Metoclopramide HCl [Reglan] 5 mg PO BID PRN 30 Days #60 tablet 03/28/22 Cyclobenzaprine [Flexeril] 10 mg PO QID@01,07,13,19 30 Days 07/18/22 #120 tab HYDROcodone/APAP 7.5-325MG [[place] 1 tab PO Q6H PRN 30 Days #120 tab 07/18/22 7.5-325] predniSONE 50 mg PO DAILY #5 tab 08/29/22 Allergies Allergy/AdvReac Type Severity Reaction Status Date / Time No Known Allergies Allergy Verified 08/29/22 11:45 Review of Systems ROS Statement: Those systems with pertinent positive or pertinent negative responses have been documented in the HPI. ROS Other: All systems not noted in ROS Statement are negative. Past Medical History Past Medical History: Asthma, Pneumonia Additional Past Medical History / Comment(s): TACHYCARDIA, peptic ulcers, anemia."HAS BEEN ON VENTILATOR IN PAST D/T SEVERE ASTHMA ATTACK," BULEMIA-STATES GETTING BETTER, CONSTIPATION. HERNIATED DISC, cervical cancer. 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 recent antibiotoc for infection in arm-now resolved per pt, COVID 12/30/20. 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 Surgery on her cervix for cancer, rt foot surgery(Fx), cysto/lithotripsy , left hip replacement 12/2018, lumbar puncture, cervical biopsy in August @[facility], bone tumor removal Past Anesthesia/Blood Transfusion Reactions: Postoperative Nausea & Vomiting (PONV) Past Psychological History: Anxiety, Depression Smoking Status: Never smoker Past Alcohol Use History: None Reported Past Drug Use History: None Reported - Past Family History Mother Family Medical History: Pneumonia Additional Family Medical History / Comment(s): Mother of pneumonia. Patient's son of brain cancer, last mother and father both liver cancer Son(s) Family Medical History: Cancer Additional Family Medical History / Comment(s): Son of brain cancer. Father Family Medical History: Cancer Additional Family Medical History / Comment(s): Liver Cancer. General Exam General appearance: alert, in no apparent distress Head exam: Present: atraumatic, normocephalic, normal inspection Eye exam: Present: normal appearance, PERRL. Absent: scleral icterus, conjunctival injection, periorbital swelling ENT exam: Present: normal exam, mucous membranes moist Neck exam: Present: normal inspection. Absent: tenderness, meningismus, lymphadenopathy Respiratory exam: Present: wheezes (mild wheezes bilaterally ). Absent: normal lung sounds bilaterally, respiratory distress, rales, rhonchi, stridor Cardiovascular Exam: Present: regular rate, normal rhythm, normal heart sounds. Absent: systolic murmur, diastolic murmur, rubs, gallop, clicks GI/Abdominal exam: Present: soft, normal bowel sounds. Absent: distended, tenderness, guarding, rebound, rigid Neurological exam: Present: alert, oriented X3 Skin exam: Present: warm, dry, intact, normal color. Absent: rash Course Vital Signs 08/29/22 10:33 Temperature 98.5 F Pulse Rate 110 H Respiratory 18 Rate Blood Pressure 115/78 O2 Sat by Pulse 98 Oximetry Medical Decision Making - Medical Decision Making Was pt. sent in by a medical professional or institution (, PA, CANOE INSPECTOR, urgent care, hospital, or usp...) When possible be specific @ -No Did you speak to anyone other than the patient for history (EMS, parent, family, police, friend...)? What history was obtained from this source @ -No Did you review nursing and triage notes (agree or disagree)? Why? @ -I reviewed and agree with nursing and triage notes Were old charts reviewed (outside hosp., previous admission, EMS record, old EKG, old radiological studies, urgent care reports/EKG's, usp records)? Report findings @ -No old charts were reviewed Differential Diagnosis (chest pain, altered mental status, abdominal pain women, abdominal pain men, vaginal bleeding, weakness, fever, dyspnea, syncope, headache, dizziness, GI bleed, back pain, seizure, CVA, palpatations, mental health, musculoskeletal)? @ -Viral URI, pneumonia, influenza, covid, asthma EKG interpreted by me (3pts min.). @ -None X-rays interpreted by me (1pt min.). @ -[Chest x-ray no acute pulmonary infiltrate. CT interpreted by me (1pt min.). @ -None done U/S interpreted by me (1pt. min.). @ -None done What testing was considered but not performed or refused? (CT, X-rays, U/S, labs)? Why? @ -None What meds were considered but not given or refused? Why? @ -None Did you discuss the management of the patient with other professionals (professionals i.e. , PA, CANOE INSPECTOR, lab, RT, psych nurse, transition social worker, head custodian, teacher, attendance officer, employment evaluator/case manager)? Give summary @ -No Was smoking cessation discussed for >3mins.? @ -No Was critical care preformed (if so, how long)? @ -No Were there social determinants of health that impacted care today? How? (Homelessness, low income, unemployed, alcoholism, drug addiction, transportation, low edu. Level, literacy, decrease access to med. care, detention, rehab)? @ -No Was there de-escalation of care discussed even if they declined (Discuss DNR or withdrawal of care, Hospice)? DNR status @ -No What co-morbidities impacted this encounter? (DM, HTN, Smoking, COPD, CAD, Cancer, CVA, ARF, Chemo, Hep., AIDS, mental health diagnosis, sleep apnea, morbid obesity)? @ -None Was patient admitted / discharged? Hospital course, mention meds given and route, prescriptions, significant lab abnormalities, going to OR and other pertinent info. @ -Discharged. Patient presented with cough and congestion 2 days. Chest x- ray not significant. Covid, influenza, RSV negative. Discharged home in stable condition Undiagnosed new problem with uncertain prognosis? @ -No Drug Therapy requiring intensive monitoring for toxicity (Heparin, Nitro, Insulin, Cardizem)? @ -No Were any procedures done? @ -No Diagnosis/symptom? @ -[Viral URI Acute, or Chronic, or Acute on Chronic? @ -[Acute Uncomplicated (without systemic symptoms) or Complicated (systemic symptoms)? @ -[Uncomplicated Side effects of treatment? @ -[No] Exacerbation, Progression, or Severe Exacerbation? @ -[No] Poses a threat to life or bodily function? How? (Chest pain, [place], [place], pneumonia, PE, COPD, DKA, ARF, appy, cholecystitis, CVA, Diverticulitis, Homicidal, Suicidal, threat to staff... and all critical care pts) @ -[No] - Lab Data Lab Results 08/29/22 Range/Units 11:20 Influenza Type A (PCR) Not Detected (Not Detectd) Influenza Type B (PCR) Not Detected (Not Detectd) RSV (PCR) Not Detected (Not Detectd) SARS-CoV-2 (PCR) Not Detected (Not Detectd) Disposition Clinical Impression: Common cold Disposition: HOME SELF-CARE Condition: Stable Instructions (If sedation given, give patient instructions): Upper Respiratory Infection (ED) Additional Instructions: Please return to the Emergency Department if symptoms worsen or any other concerns. Prescriptions: predniSONE 50 mg PO DAILY #5 tab Is patient prescribed a controlled substance at d/c from ED?: No Referrals: Slade Gonzalez MD [Primary Care Provider] - 1-2 days Time of Disposition: 13:36
[2022-08-29 13:54] VITALS: BP 109/79; PULSE 98; RESP 16
== END 2022-08-29 13:55 | disposition home or self-care (01) ==
LOC: EC 10:32
DX: J00 Acute nasopharyngitis [common cold] (principal); J45.909 Unspecified asthma, uncomplicated; F41.9 Anxiety disorder, unspecified; F32.A Depression, unspecified; Z20.822 Contact with and (suspected) exposure to COVID-19; Z79.899 Other long term (current) drug therapy
CPT/HCPCS: 87636; 71046; 99284; 96372; J3360

== ENCOUNTER → 2022-09-12 | Outpatient (CLI) | payer MEDICARE ==
[2022-09-12 08:28] VITALS: BP 139/92; PULSE 103; RESP 18; TEMP 97.8
--- NOTE | 2022-09-12 14:47 | P.PAINPG ---
PQRS Measure Charge Sheet Comment: A 41 yr old female with a history of severe and chronic neck pain secondary to cervical DDD and spondylosis with facet arthropathy without myelopathy presents today for medication refills. Pain level is provoked at 8 /10 in intensity, constant, localized in the R cervical spine, sharp in character w shooting towards the R shoulder and RUE. Pain is provoked by lifting. Pain is alleviated with PT which she hasn't stated yet, massage therapy as needed which provides intermittent pain relief, medications, heat, ice, repositioning and rest. UDS collected today. Interventional pain procedures completed include Patient is currently on [place] 7.5/325mg #120, Flexeril Patient denies any side effects of the medication(s), denies excessive drowsiness or sleepiness, denies suicidal ideation and reports that the current pain medication is helping to control the pain and improve activities of daily living. Patient denies any motor or sensory deficits. Patient denies any fever or night sweats, denies any change in the bowel movements or urination. Physical Examination: -Constitutional: Cooperative. Not in acute distress . - Neurologic: Cranial nerve II to XII intact. No focal neurological deficits. - Psychatric: Alert & oriented x 3. Matching mood & appropriate affect. Judgment and insight intact. - Musculoskeletal: Cervical spine: Muscle bulk/ tone/ strength in the bilateral upper extremities normal Vertebral body tenderness to palpation over Spurling test positive Distraction test positive Facet loading test positive TTP Thoracic spine Muscle bulk / tone/ strength in the bilateral paraspinal muscles normal Vertebral body tender to palpation over Facet loading test positive TTP Lumbar spine: Motor bulk/ tone/ strength lower extremities , thigh and legs : 5/5 Deep tendon reflexes : Normal Knee Jerk. Normal Ankle Jerk . Vertebral body tenderness to palpation over Lumbar Facet Loading Test positive Straight Leg Raise: positive at 30 degrees right side/ left side Gaenslen's Test positive Sacral spine : Severe tenderness over the Sacroiliac joint: right side / left side Range of motion: Flexion of the lumbar spine <60 degrees Range of motion: Extension of the lumbar spine <20 degrees Gaenslen's Test positive right side / left side Mary test: positive right side / left side Thigh Thrust Test positive right side / left side Sacral Thrust Test positive right side / left side Imaging: CT noncontrast of the cervical spine from 06/02/22 reviewed Assessment and plan: Chronic neck pain secondary to cervical DDD, spondylosis with facet arthropathy without myelopathy Chronic and current use of high-risk medication (Opioids). The patient was counseled about risk of opioid use, psychological risk associated with opioids and was orally counseled to not overuse , divert or sell medications. Pt is to store medication in a safe location. The patient is counseled against driving while using narcotic medications and also not to use alcohol or any illicit recreational drugs. Patient verbalized understanding that the lack of compliance will result in failure to renew narcotic prescription(s) as well as possible discharge from the clinic Diagnoses, prognosis and treatment options including but not limited to physical therapy, surgical interventions, interventional therapies and medication management including narcotics and adjuvant medication were discussed. Script for PT reL M50.30 provided. All patient questions answered MAPS reviewed and it was appropriate. UDS collected today 09/12/22. Prescription refill for [place] 7.5/325mg #120, Flexeril w 1 RF I have spent less than 30 minutes on patient care today. Dr Kelly was available by phone for the evaluation of this patient. The time was used to review the medical records including relevant urine studies and Prescription history (MAPs), review of the available imaging, evaluation and examination of the patient, coordination of care with the medical staff and if applicable referring physicians, as well as creation of the medical record PQRS Narrative: Smoking Status Never smoker Narcotic Agreement Date Signed 02/05/22 Hx Alcohol Use (MH) No Home Medications: Ambulatory Orders Medroxyprogesterone Acetate [Depo-Provera] 150 mg IM Q84D 07/10/18 Omalizumab [Xolair] 300 mg SQ Q30D 07/10/18 traZODone HCL 100 mg PO HS@199907/09/19 PARoxetine [Paxil] 20 mg PO HS@199912/18/19 Fluticasone Propionate [Flovent Hfa 220 mcg] 2 puff INHALATION RT-DAILY@0 ,199906/13/20 Loratadine [Claritin] 10 mg PO DAILY@0700 06/13/20 SUMAtriptan succinate [Imitrex] 100 mg PO BID PRN 06/13/20 Botox Neck Injection 400 mg SQ Q70D 08/30/20 Albuterol Sulfate [Ventolin HFA] 2 puff INHALATION RT-Q6H PRN 09/30/20 levalbuterol HCL 0.63 mg INHALATION RT-QID PRN 09/30/20 Cholecalciferol (Vitamin D3) [Vitamin D3 (125 MCG = 5,000 IU)] 125 mcg PO DAILY@0700 03/01/22 EPINEPHrine (Auto Inject) [Epipen] 0.3 mg IM ONCE PRN 03/01/22 Metoclopramide [Reglan] 10 mg PO Q28D 03/01/22 Panzyga 10% Infusion 1 dose IV Q28D 03/01/22 diazePAM [Valium] 2 mg PO Q12H PRN 03/01/22 Metoclopramide HCl [Reglan] 5 mg PO BID PRN 30 Days #60 tablet 03/28/22 Levothyroxine Sodium [Synthroid] 150 mcg PO DAILY 05/28/22 predniSONE 50 mg PO DAILY #5 tab 08/29/22 Cyclobenzaprine [Flexeril] 10 mg PO QID@01,07,,19 30 Days #120 tab 09/12/22 HYDROcodone/APAP 7.5-325MG [[place] 7.5-325] 1 tab PO Q6H PRN 30 Days #120 tab 09/12/22 HYDROcodone/APAP 7.5-325MG [[place] 7.5-325] 1 tab PO Q6H PRN 30 Days #120 tab 09/12/22 Controlled Substance Measures - Controlled Substance Measures Is patient prescribed a controlled substance at discharge?: Yes When asked, does pt state using other controlled substances?: Yes If prescribed controlled substance>3 days was MAPS reviewed?: Yes
== END ==
LOC: PNWHC3 07:42
PROVIDERS: ATTEND Specialist
DX: M50.30 Other cervical disc degeneration, unspecified cervical region (principal); M47.812 Spondylosis without myelopathy or radiculopathy, cervical region; G89.29 Other chronic pain; Z79.891 Long term (current) use of opiate analgesic
CPT/HCPCS: 80307; G0482; G0463; 99212

== ENCOUNTER → 2022-11-07 | Outpatient (CLI) | payer MEDICARE ==
[2022-11-07 10:20] VITALS: BP 128/90; PULSE 104; RESP 18; TEMP 98.6
--- NOTE | 2022-11-07 15:01 | P.PAINPG ---
PQRS Measure Charge Sheet Comment: A 41 yr old female with a history of severe and chronic neck pain secondary to cervical DDD and spondylosis with facet arthropathy without myelopathy presents today for medication refills. Pain level is provoked at 8 /10 in intensity, constant, localized in the R cervical spine, sharp in character w shooting towards the R shoulder and RUE. Pain is provoked by lifting. Pain is alleviated with PT x 6 wks which ended this mo, massage therapy as needed which provides intermittent pain relief, medications, heat, ice, repositioning and rest. UDS collected today after UDS from 09/12/22 was negative . Patient is currently on [place] 7.5/325mg #120, Flexeril Patient denies any side effects of the medication(s), denies excessive drowsiness or sleepiness, denies suicidal ideation and reports that the current pain medication is helping to control the pain and improve activities of daily living. Patient denies any motor or sensory deficits. Patient denies any fever or night sweats, denies any change in the bowel movements or urination. Physical Examination: -Constitutional: Cooperative. Not in acute distress . - Neurologic: Cranial nerve II to XII intact. No focal neurological deficits. - Psychatric: Alert & oriented x 3. Matching mood & appropriate affect. Judgment and insight intact. - Musculoskeletal: Cervical spine: Muscle bulk/ tone/ strength in the bilateral upper extremities normal Vertebral body tenderness to palpation over Spurling test positive Distraction test positive Facet loading test positive TTP Thoracic spine Muscle bulk / tone/ strength in the bilateral paraspinal muscles normal Vertebral body tender to palpation over Facet loading test positive TTP Lumbar spine: Motor bulk/ tone/ strength lower extremities , thigh and legs : 5/5 Deep tendon reflexes : Normal Knee Jerk. Normal Ankle Jerk . Vertebral body tenderness to palpation over Lumbar Facet Loading Test positive Straight Leg Raise: positive at 30 degrees right side/ left side Gaenslen's Test positive Sacral spine : Severe tenderness over the Sacroiliac joint: right side / left side Range of motion: Flexion of the lumbar spine <60 degrees Range of motion: Extension of the lumbar spine <20 degrees Gaenslen's Test positive right side / left side Mary test: positive right side / left side Thigh Thrust Test positive right side / left side Sacral Thrust Test positive right side / left side Imaging: CT noncontrast of the cervical spine from 06/02/22 reviewed Assessment and plan: Chronic neck pain secondary to cervical DDD, spondylosis with facet arthropathy without myelopathy Chronic and current use of high-risk medication (Opioids). The patient was counseled about risk of opioid use, psychological risk associated with opioids and was orally counseled to not overuse , divert or sell medications. Pt is to store medication in a safe location. The patient is counseled against driving while using narcotic medications and also not to use alcohol or any illicit recreational drugs. Patient verbalized understanding that the lack of compliance will result in failure to renew narcotic prescription(s) as well as possible discharge from the clinic Diagnoses, prognosis and treatment options including but not limited to physical therapy, surgical interventions, interventional therapies and medication management including narcotics and adjuvant medication were discussed. Script for PT reL M50.30 provided. All patient questions answered MAPS reviewed and it was appropriate. UDS re collected today 11/07/22. Prescription refill for [place] 7.5/325mg #120, Flexeril w 1 RF I have spent less than 30 minutes on patient care today. Dr Kelly was available by phone for the evaluation of this patient. The time was used to review the medical records including relevant urine studies and Prescription history (MAPs), review of the available imaging, evaluation and examination of the patient, coordination of care with the medical staff and if applicable referring physicians, as well as creation of the medical record PQRS Narrative: Smoking Status Never smoker Narcotic Agreement Date Signed 02/05/22 Hx Alcohol Use (MH) No Home Medications: Ambulatory Orders Medroxyprogesterone Acetate [Depo-Provera] 150 mg IM Q84D 07/10/18 Omalizumab [Xolair] 300 mg SQ Q30D 07/10/18 traZODone HCL 100 mg PO HS@199907/09/19 PARoxetine [Paxil] 20 mg PO HS@199912/18/19 Fluticasone Propionate [Flovent Hfa 220 mcg] 2 puff INHALATION RT- DAILY@07,199906/13/20 Loratadine [Claritin] 10 mg PO DAILY@0700 06/13/20 SUMAtriptan succinate [Imitrex] 100 mg PO BID PRN 06/13/20 Botox Neck Injection 400 mg SQ Q70D 08/30/20 Albuterol Sulfate [Ventolin HFA] 2 puff INHALATION RT-Q6H PRN 09/30/20 levalbuterol HCL [Xopenex Nebulized] 0.63 mg INHALATION RT-QID PRN 09/30/20 Cholecalciferol (Vitamin D3) [Vitamin D3 (125 MCG = 5,000 IU)] 125 mcg PO DAILY@0700 03/01/22 EPINEPHrine (Auto Inject) [Epipen] 0.3 mg IM ONCE PRN 03/01/22 Metoclopramide [Reglan] 10 mg PO Q28D 03/01/22 Panzyga 10% Infusion 1 dose IV Q28D 03/01/22 diazePAM [Valium] 2 mg PO Q12H PRN 03/01/22 Metoclopramide HCl [Reglan] 5 mg PO BID PRN 30 Days #60 tablet 03/28/22 Levothyroxine Sodium [Synthroid] 150 mcg PO DAILY 05/28/22 predniSONE 50 mg PO DAILY #5 tab 08/29/22 Cyclobenzaprine [Flexeril] 10 mg PO QID@,,, 30 Days #120 tab 09/12/22 HYDROcodone/APAP 7.5-325MG [[place] 7.5-325] 1 tab PO Q6H PRN 30 Days #120 tab 09/12/22 HYDROcodone/APAP 7.5-325MG [[place] 7.5-325] 1 tab PO Q6H PRN 30 Days #120 tab 09/12/22 Controlled Substance Measures - Controlled Substance Measures Is patient prescribed a controlled substance at discharge?: Yes When asked, does pt state using other controlled substances?: No If prescribed controlled substance>3 days was MAPS reviewed?: Yes
== END ==
LOC: PNWHC3 07:50
PROVIDERS: ATTEND Specialist
DX: M50.30 Other cervical disc degeneration, unspecified cervical region (principal); M47.812 Spondylosis without myelopathy or radiculopathy, cervical region; G89.29 Other chronic pain; Z79.891 Long term (current) use of opiate analgesic
CPT/HCPCS: 99212

== ENCOUNTER 2022-12-19 13:20 | Inpatient (IN) | payer MEDICARE, OTHER ==
--- NOTE | 2022-12-19 15:00 | ED ---
General Adult HPI - General Chief complaint: Neuro Symptoms/Deficit Stated complaint: stiff person syndrom Time Seen by Provider: 12/19/22 15:00 Source: patient, EMS Mode of arrival: EMS Limitations: no limitations - History of Present Illness Initial comments: Josephine is a 42 yo F with PMH of Stiff Man Syndrome, who presents the ER today with complaint of spasms and pain. Patient reports that she seems to be having an exacerbation she's had muscle spasm and pain all day today. She states typical day she only has experienced like this for about 1 hour total but she's been in pain all day. Patient reports she had some blood work done recently and was told that her red blood cell count White cell count were low and that she may be fighting off a virus, though she has no symptoms of illness.. He states that he'll this usually precipitates these attacks. Patient states that she was last admitted for this in May. Follows with neurology out of [facility]. - Related Data Home Medications Medication Instructions Recorded Confirmed Medroxyprogesterone Acetate 150 mg IM Q84D 07/10/18 12/19/22 [Depo-Provera] Omalizumab [Xolair] 300 mg SQ Q30D 07/10/18 12/19/22 PARoxetine [Paxil] 20 mg PO HS 12/18/19 12/19/22 Fluticasone Propionate [Flovent 2 puff INHALATION RT-BID 06/13/20 12/19/22 Hfa 220 mcg] Loratadine [Claritin] 10 mg PO DAILY 06/13/20 12/19/22 SUMAtriptan succinate [Imitrex] 100 mg PO BID PRN 06/13/20 12/19/22 Botox Neck Injection 400 mg SQ Q70D 08/30/20 12/19/22 Albuterol Sulfate [Ventolin HFA] 2 puff INHALATION RT-Q6H PRN 09/30/20 12/19/22 Cholecalciferol (Vitamin D3) 125 mcg PO DAILY 03/01/22 12/19/22 [Vitamin D3 (125 MCG = 5,000 IU)] EPINEPHrine (Auto Inject) [Epipen] 0.3 mg IM ONCE PRN 03/01/22 12/19/22 Panzyga 10% Infusion 1 dose IV Q28D 03/01/22 12/19/22 diazePAM [Valium] 2 mg PO Q12H PRN 03/01/22 12/19/22 Levothyroxine Sodium [Synthroid] 150 mcg PO DAILY 05/28/22 12/19/22 Albuterol Nebulized [Ventolin 2.5 mg INHALATION RT-Q6H PRN 12/19/22 12/19/22 Nebulized] Cyclobenzaprine [Flexeril] 5 mg PO QID 12/19/22 12/19/22 Montelukast [Singulair] 10 mg PO DAILY 12/19/22 12/19/22 traZODone HCL [Desyrel] 100 mg PO HS 12/19/22 12/19/22 Previous Rx's Medication Instructions Recorded HYDROcodone/APAP 7.5-325MG [[place] 1 tab PO Q6H PRN 30 Days #120 tab 11/07/22 7.5-325] Allergies Allergy/AdvReac Type Severity Reaction Status Date / Time No Known Allergies Allergy Verified 12/19/22 14:28 Review of Systems ROS Statement: Those systems with pertinent positive or pertinent negative responses have been documented in the HPI. ROS Other: All systems not noted in ROS Statement are negative. Past Medical History Past Medical History: Asthma, Pneumonia Additional Past Medical History / Comment(s): TACHYCARDIA, peptic ulcers, anemia."HAS BEEN ON VENTILATOR IN PAST D/T SEVERE ASTHMA ATTACK," BULEMIA-STATES GETTING BETTER, CONSTIPATION. HERNIATED DISC, cervical cancer. 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 recent antibiotoc for infection in arm-now resolved per pt, COVID 12/30/20. 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 Surgery on her cervix for cancer, rt foot surgery(Fx), cysto/lithotripsy , left hip replacement 12/2018, lumbar puncture, cervical biopsy in August @[facility], bone tumor removal Past Anesthesia/Blood Transfusion Reactions: Postoperative Nausea & Vomiting (PONV) Past Psychological History: Anxiety, Depression Smoking Status: Never smoker Past Alcohol Use History: None Reported Past Drug Use History: None Reported - Past Family History Mother Family Medical History: Pneumonia Additional Family Medical History / Comment(s): Mother of pneumonia. Patient's son of brain cancer, last mother and father both liver cancer Son(s) Family Medical History: Cancer Additional Family Medical History / Comment(s): Son of brain cancer. Father Family Medical History: Cancer Additional Family Medical History / Comment(s): Liver Cancer. General Exam - General Exam Comments Initial Comments: Physical Exam GENERAL: Patient is well-developed and well-nourished. Patient appears uncomfortable, arms spasmed and fists are clenched HENT: Normocephalic, Atraumatic. EYES: PERRL, EOMI PULMONARY: Unlabored respirations. No audible rales rhonchi or wheezing was noted. CARDIOVASCULAR: Tachycardic, regular ABDOMEN: Soft and nontender with normal bowel sounds. SKIN: Skin is clear with no lesions or rashes and otherwise unremarkable. : Deferred NEUROLOGIC: Patient is alert and oriented x3. Increased muscle tone MUSCULOSKELETAL: Decreased range of motion in the extremities due to muscle spasticity PSYCHIATRIC: Normal psychiatric evaluation. Limitations: no limitations Course Vital Signs 12/19/22 13:23 Temperature 97.0 F L Pulse Rate 140 H Respiratory 22 Rate Blood Pressure 120/66 O2 Sat by Pulse 96 Oximetry Medical Decision Making - Medical Decision Making Patient was seen and evaluated history was obtained from the patient. Physical exam reveals a patient who is rigid with muscle spasticity. She was treated with Valium and was given morphine. Labs are reviewed, creatinine kinase is mildly elevated consistent with patient's spasticity. He'll be admitted for stiff man syndrome exacerbation pain management. Dilaudid was ordered. Patient care was discussed with [facility] hospitalist group who accepts the admission. Was pt. sent in by a medical professional or institution (, PA, EDUCATION ASSOCIATE, urgent care, hospital, or [facility]...) When possible be specific @ -No Did you speak to anyone other than the patient for history (EMS, parent, family, police, friend...)? What history was obtained from this source @ -No Did you review nursing and triage notes (agree or disagree)? Why? @ -I reviewed and agree with nursing and triage notes Were old charts reviewed (outside hosp., previous admission, EMS record, old EKG, old radiological studies, urgent care reports/EKG's, ch[facility] records)? Report findings @ -Yes previous admission was reviewed Differential Diagnosis (chest pain, altered mental status, abdominal pain women, abdominal pain men, vaginal bleeding, weakness, fever, dyspnea, syncope, headache, dizziness, GI bleed, back pain, seizure, CVA, palpatations, mental health, musculoskeletal)? @ -not applicable EKG interpreted by me (3pts min.). @ -As above X-rays interpreted by me (1pt min.). @ -None done CT interpreted by me (1pt min.). @ -None done U/S interpreted by me (1pt. min.). @ -None done What testing was considered but not performed or refused? (CT, X-rays, U/S, labs)? Why? @ -None What meds were considered but not given or refused? Why? @ -None Did you discuss the management of the patient with other professionals (professionals i.e. , PA, EDUCATION ASSOCIATE, lab, RT, psych nurse, social media marketing manager, photographic press screwmaker, teacher, landcare officer, counseling case manager)? Give summary @ -No Was smoking cessation discussed for >3mins.? @ -No Was critical care preformed (if so, how long)? @ -No Were there social determinants of health that impacted care today? How? (Homelessness, low income, unemployed, alcoholism, drug addiction, transportation, low edu. Level, literacy, decrease access to med. care, residential, rehab)? @ -No Was there de-escalation of care discussed even if they declined (Discuss DNR or withdrawal of care, Hospice)? DNR status @ -No What co-morbidities impacted this encounter? (DM, HTN, Smoking, COPD, CAD, Cancer, CVA, ARF, Chemo, Hep., AIDS, mental health diagnosis, sleep apnea, morbid obesity)? @ -None Was patient admitted / discharged? Hospital course, mention meds given and route, prescriptions, significant lab abnormalities, going to OR and other pertinent info. @ -Admitted Undiagnosed new problem with uncertain prognosis? @ -No Drug Therapy requiring intensive monitoring for toxicity (Heparin, Nitro, Insulin, Cardizem)? @ -No Were any procedures done? @ -No Diagnosis/symptom? @ -default Acute, or Chronic, or Acute on Chronic? @ -default Uncomplicated (without systemic symptoms) or Complicated (systemic symptoms)? @ -default Side effects of treatment? @ -No Exacerbation, Progression, or Severe Exacerbation? @ -No Poses a threat to life or bodily function? How? (Chest pain, USA, GA, pneumonia, PE, COPD, DKA, ARF, appy, cholecystitis, CVA, Diverticulitis, Homicidal, Suicidal, threat to staff... and all critical care pts) @ -No - Lab Data Result diagrams: 12/19/22 16:10 12/19/22 16:10 Lab Results 12/19/22 12/19/22 Range/Units 16:10 16:10 WBC 6.0 (3.8-10.6) k/uL RBC 4.01 (3.80-5.40) m/uL Hgb 13.2 (11.4-16.0) gm/dL Hct 37.7 (34.0-46.0) % MCV 94.2 (80.0-100.0) fL MCH 32.8 (25.0-35.0) pg MCHC 34.9 (31.0-37.0) g/dL RDW 12.0 (11.5-15.5) % Plt Count 198 (150-450) k/uL MPV 7.9 Neutrophils % 72 % Lymphocytes % 20 % Monocytes % 5 % Eosinophils % 2 % Basophils % 0 % Neutrophils # 4.4 (1.3-7.7) k/uL Lymphocytes # 1.2 (1.0-4.8) k/uL Monocytes # 0.3 (0-1.0) k/uL Eosinophils # 0.1 (0-0.7) k/uL Basophils # 0.0 (0-0.2) k/uL Sodium 137 (137-145) mmol/L Potassium 4.5 (3.5-5.1) mmol/L Chloride 106 (98-107) mmol/L Carbon Dioxide 24 (22-30) mmol/L Anion Gap 7 mmol/L BUN 16 (7-17) mg/dL Creatinine 1.00 (0.52-1.04) mg/dL Est GFR (CKD-EPI)AfAm 81 (>60 ml/min/1.73 sqM) Est GFR (CKD-EPI)NonAf 70 (>60 ml/min/1.73 sqM) Glucose 82 (74-99) mg/dL Calcium 8.7 (8.4-10.2) mg/dL Magnesium 1.6 (1.6-2.3) mg/dL Total Bilirubin 0.6 (0.2-1.3) mg/dL AST 47 H (14-36) U/L ALT 32 (4-34) U/L Alkaline Phosphatase 66 (38-126) U/L Creatine Kinase 230 H (30-135) U/L Total Protein 7.7 (6.3-8.2) g/dL Albumin 3.9 (3.5-5.0) g/dL TSH 8.130 H (0.465-4.680) mIU/L Disposition Clinical Impression: Intractable pain, Stiff-man syndrome Disposition: ADMITTED IP TO THIS [facility] Condition: Stable Referrals: None,Stated [REFERRING] - 1-2 days
[2022-12-19] MEDS ORDERED: MORPHINE SULFATE 4 MG/ML SYRINGE IVP STA (15:20)
[2022-12-19] MEDS ORDERED: SODIUM CHLORIDE 0.9% 1,000 ML IV ONE (15:20)
[2022-12-19] MEDS: SODIUM CHLORIDE 0.9% 1,000 ML IV SCH ×2 (15:58→23:29)
[2022-12-19 16:20] LABS: Basophils % (A) 0 %; Eosinophils # (A) 0.1 k/uL (0-0.7); Eosinophils % (A) 2 %; HCT 37.7 % (34.0-46.0); HGB 13.2 gm/dL (11.4-16.0); Lymphocytes # (A) 1.2 k/uL (1.0-4.8); Lymphocytes % (A) 20 %; MCH 32.8 pg (25.0-35.0); MCHC 34.9 g/dL (31.0-37.0); MCV 94.2 fL (80.0-100.0); Mean Platelet Volume 7.9; Monocytes # (A) 0.3 k/uL (0-1.0); Monocytes % (A) 5 %; Neutrophils # (A) 4.4 k/uL (1.3-7.7); Neutrophils % (A) 72 %; Platelet Count 198 k/uL (150-450); RBC 4.01 m/uL (3.80-5.40)
[2022-12-19 16:56] LABS: ALT 32 U/L (4-34); AST 47 U/L (14-36); African American GFR (CKD) 81 (>60 ml/min/1.73 sqM); Albumin 3.9 g/dL (3.5-5.0); Alkaline Phosphatase 66 U/L (38-126); Anion Gap 7 mmol/L; Blood Urea Nitrogen 16 mg/dL (7-17); Calcium 8.7 mg/dL (8.4-10.2); Carbon Dioxide 24 mmol/L (22-30); Chloride 106 mmol/L (98-107); Creatine Kinase 230 U/L (30-135); Glucose 82 mg/dL (74-99); Magnesium 1.6 mg/dL (1.6-2.3); Non-African American GFR(CKD) 70 (>60 ml/min/1.73 sqM); Potassium 4.5 mmol/L (3.5-5.1); Sodium 137 mmol/L (137-145); Total Bilirubin 0.6 mg/dL (0.2-1.3); Total Protein 7.7 g/dL (6.3-8.2)
[2022-12-19] MEDS ORDERED: HYDROmorphone 1 MG/ML 1 ML SYRINGE IVP STA (18:05)
[2022-12-19 18:11] LABS: T4, Free (Free Thyroxine) 1.57 ng/dL (0.78-2.19)
[2022-12-19] MEDS ORDERED: NALOXONE 0.4 MG/ML 1 ML VIAL IV PRN (18:45)
[2022-12-19] MEDS ORDERED: HYDROcodone/APAP 5-325MG 1 EACH TAB PO PRN (18:45)
[2022-12-19] MEDS ORDERED: ALBUTEROL HFA INHALER INHALATION PRN (22:11)
[2022-12-19] MEDS ORDERED: SUMAtriptan succinate 50 MG TAB PO PRN (22:11)
[2022-12-19] MEDS ORDERED: HYDROcodone/APAP 7.5-325MG 1 EACH TAB PO PRN (22:11)
[2022-12-19] MEDS ORDERED: ALBUTEROL NEBULIZED 2.5 MG/3 ML INHALATION PRN (22:11)
[2022-12-19] MEDS ORDERED: PARoxetine 20 MG TAB PO STA (22:23)
[2022-12-19] MEDS ORDERED: traZODone HCL 100 MG TAB PO SCH (22:30)
[2022-12-19] MEDS: diazePAM 2 MG TAB PO PRN (22:35)
[2022-12-20] MEDS: SODIUM CHLORIDE 0.9% 1,000 ML IV SCH ×3 (06:01→22:19)
[2022-12-20] MEDS ORDERED: NON FORMULARY DRUG (Levothyroxine Sodium [Synthroid] 150 MCG Tablet) PO SCH (06:30)
[2022-12-20] MEDS: HYDROmorphone 0.5 MG/0.5 ML SYRINGE IVP PRN ×4 (07:37→20:35)
[2022-12-20] MEDS: FLUTICASONE 220 MCG INHALER INHALATION SCH ×2 (08:02→20:07)
[2022-12-20] MEDS ORDERED: OMALIZUMAB 150 MG SQ SCH (09:00)
[2022-12-20] MEDS ORDERED: CYCLOBENZAPRINE 5 MG TAB PO SCH (09:00)
[2022-12-20] MEDS: CHOLECALCIFEROL 125 MCG (5000 IU) TABLET PO SCH (09:55)
[2022-12-20] MEDS: MONTELUKAST 10 MG TAB PO SCH (09:55)
[2022-12-20] MEDS: LORATADINE 10 MG TAB PO SCH (09:55)
[2022-12-20] MEDS: diazePAM 2 MG TAB PO PRN (10:22)
[2022-12-20] MEDS: FAMOTIDINE 20 MG TAB PO SCH ×2 (10:22→20:35)
--- NOTE | 2022-12-20 11:50 | P.PAINPG ---
Objective - Vital Signs Vital signs: Vital Signs Temp 98.4 F 12/20/22 07:00 Pulse 90 12/20/22 07:00 Resp 18 12/20/22 07:37 BP 104/70 12/20/22 07:00 Pulse Ox 97 12/20/22 07:00 FiO2 Intake & Output 12/19/22 12/20/22 12/20/22 18:59 06:59 18:59 Intake Total 120 Output Total 200 Balance -200 120 Weight 68.039 kg 68.039 kg Intake: Oral 120 Output: Urine 200 Other: Voiding Method Diaper Diaper External Catheter External Catheter - Labs CBC & Chem 7: 12/19/22 16:10 12/19/22 16:10 Labs: Abnormal Lab Results - Last 24 Hours (Table) 12/19/22 Range/Units 16:10 AST 47 H (14-36) U/L Creatine Kinase 230 H (30-135) U/L TSH 8.130 H (0.465-4.680) mIU/L PQRS Measure Charge Sheet Comment: HISTORY OF PRESENT ILLNESS: 41 yr old inpatient female as a referral from Dr Cordoba presents today w sherry re and chronic neck, chest and BLE pain secondary to stiff person syndrome for evaluation. Pt states pain and stiffness level is at 8 /10 in intensity and accompanied w muscle spasms in the arms, chest and legs, constant, achy/ sore in character without radiating pain. Pt states her recent episode was 2+ hrs of severe spasms at home w her children trying to relieve her stiffness so that she can take medications. Episodes are triggered by viral infection, missing doses of medications, changes in room temperature, etch. Pain is provoked by any movement. Pain is alleviated by medications ([place] 7.5/325gm, Flexeril), monthly IgG infusions from her established neurologist, laying on her side and rest. 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 Fa- Liver CA. Son- Brain CA/ . All: NKDA Meds: See list REVIEW OF ORGAN SYSTEMS: CONSTITUTIONAL: No fevers or chills. No recent weight loss. NEUROLOGICAL: + numbness and tingling along the distal extremities. No seizure disorders or headaches. MUSCULOSKELETAL: + pain PSYCHIATRIC: Denies current depression or suicidal thoughts. Physical Examinations : Constitutional : Cooperative , not in acute distress . Neurologic : Cranial nerve II to XII intact. No focal neurological deficits. Psychiatric : alert & oriented x 3. Matching mood & appropriate affect. Judgment & insight intact. Musculoskeletal : Cervical Spine Motor strength in the deltoid and biceps: Normal right side. Normal Left side Motor strength biceps and the wrist extensors: Normal right side . Normal left side Motor strength in the triceps muscle: Normal right side. Normal left side Deep tendon reflexes: Normal at the biceps. Normal at Brachioradialis. Normal at triceps Vertebral body tenderness to deep palpation over Cervical facet loading test: positive bilaterally Spurling test: positive bilaterally Neck distraction test: positive bilaterally Valencia sign: positive bilaterally Lumbar spine Motor strength lower extremities ,thigh and legs 5/5 Right side , 5/5 Left side Deep tendon reflexes : Normal Knee Jerk. Normal Ankle Jerk Vertebral body tenderness over Lumbar facet Loading Test: positive Right / positive Left Range of motion of the lumbar spine Flexion 30 degrees, extension 10 degrees Straight Leg Raise test: Left/ Right positive at degree Mary test: positive right / positive left. Severe tenderness over the Sacroiliac joint on the Right / Left sides Gaenslen test: positive bilaterally Seated flexion test: positive bilaterally. 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 She has been started on IV steroids and is on 3 narcotic medications on an as needed basis, Dilaudid 1mg IVP Q3H prn pain; on [place] 7.5/325mg Q6H prn pain. Narcan on file. Interested in stopping Flexeril and substituting w Zanaflex 2mg TID of which she feel taking a lower dose more frequently will not have an impact on dropping her BP. Neurology consult. All questions answered. I have spent greater than 30 minutes on patient care today. Dr Kelly was available by phone for the evaluation of this patient. The time was used to review the medical records including relevant urine studies and Prescription history (MAPs), review of the available imaging, evaluation and examination of the patient, coordination of care with the medical staff and if applicable referring physicians, as well as creation of the medical record Pain Comment: see mar PQRS Narrative: Smoking Status Never smoker Narcotic Agreement Date Signed 02/05/22 Blood Pressure [Left Arm] 104/70 Blood Pressure 108/69 Pain Intensity 7 Pain Scale Used Numeric (1 - 10) Scale Used Numeric (1 - 10) Hx Alcohol Use (MH) No Home Medications: Ambulatory Orders Medroxyprogesterone Acetate [Depo-Provera] 150 mg IM Q84D 07/10/18 Omalizumab [Xolair] 300 mg SQ Q30D 07/10/18 PARoxetine [Paxil] 20 mg PO HS 12/18/19 Fluticasone Propionate [Flovent Hfa 220 mcg] 2 puff INHALATION RT-BID 06/13/20 Loratadine [Claritin] 10 mg PO DAILY 06/13/20 SUMAtriptan succinate [Imitrex] 100 mg PO BID PRN 06/13/20 Botox Neck Injection 400 mg SQ Q70D 08/30/20 Albuterol Sulfate [Ventolin HFA] 2 puff INHALATION RT-Q6H PRN 09/30/20 Cholecalciferol (Vitamin D3) [Vitamin D3 (125 MCG = 5,000 IU)] 125 mcg PO DAILY 03/01/22 EPINEPHrine (Auto Inject) [Epipen] 0.3 mg IM ONCE PRN 03/01/22 Panzyga 10% Infusion 1 dose IV Q28D 03/01/22 diazePAM [Valium] 2 mg PO Q12H PRN 03/01/22 Levothyroxine Sodium [Synthroid] 150 mcg PO DAILY 05/28/22 HYDROcodone/APAP 7.5-325MG [[place] 7.5-325] 1 tab PO Q6H PRN 30 Days #120 tab 11/07/22 Albuterol Nebulized [Ventolin Nebulized] 2.5 mg INHALATION RT-Q6H PRN 12/19/22 Cyclobenzaprine [Flexeril] 5 mg PO QID 12/19/22 Montelukast [Singulair] 10 mg PO DAILY 12/19/22 traZODone HCL [Desyrel] 100 mg PO HS 12/19/22 Controlled Substance Measures - Controlled Substance Measures Is patient prescribed a controlled substance at discharge?: No
[2022-12-20] MEDS ORDERED: LEVOTHYROXINE 75 MCG TAB PO SCH (12:00)
--- NOTE | 2022-12-20 12:29 | P.HPIM ---
History of Present Illness 42-year-old pleasant female with known history of stiff man syndrome, uses walker at home and is on Flexeril and Valium for spasms came in with severe back spasms lasting for 2 hours. Patient denied any recent viral illness patient missed her medications. Patient usually receives IVIG infusions for Stiff man syndrome. Patient in the past was on Zanaflex but had lightheadedness with that because of which patient was not continued on this because of continued severe spasm patient was restarted back on this medication will monitor overnight. REVIEW OF SYSTEMS: CONSTITUTIONAL: No fever, no malaise, no fatigue. HEENT: No recent visual problems or hearing problems. Denied any sore throat. CARDIOVASCULAR: No chest pain, orthopnea, PND, no palpitations, no syncope. PULMONARY: No shortness of breath, no cough, no hemoptysis. GASTROINTESTINAL: No diarrhea, no nausea, no vomiting, no abdominal pain. NEUROLOGICAL: No headaches, no weakness, no numbness. HEMATOLOGICAL: Denies any bleeding or petechiae. GENITOURINARY: Denies any burning micturition, frequency, or urgency. MUSCULOSKELETAL/RHEUMATOLOGICAL: As mentioned in HPI ENDOCRINE: Denies any polyuria or polydipsia. The rest of the 14-point review of systems is negative. PHYSICAL EXAMINATION: GENERAL: The patient is alert and oriented x3, not in any acute distress. Well developed, well nourished. HEENT: Pupils are round and equally reacting to light. EOMI. No scleral icterus. No conjunctival pallor. Normocephalic, atraumatic. No pharyngeal erythema. No thyromegaly. CARDIOVASCULAR: S1 and S2 present. No murmurs, rubs, or gallops. PULMONARY: Chest is clear to auscultation, no wheezing or crackles. ABDOMEN: Soft, nontender, nondistended, normoactive bowel sounds. No palpable organomegaly. MUSCULOSKELETAL: No joint swelling or deformity. EXTREMITIES: No cyanosis, clubbing, or pedal edema. NEUROLOGICAL: Gross neurological examination did not reveal any new focal deficits. Does have chronic weakness and bilateral lower extremities SKIN: No rashes. Assessment and plan -Severe back spasms: Secondary to treatment syndrome, patient was started on Zanaflex continue with home dose of [place], patient is on Toradol as well as with GI prophylaxis -Asthma without any acute exacerbation -Hypothyroidism TSH is elevated will increase the dose of levothyroxine -Depression DVT prophylaxis: Lovenox Past Medical History Past Medical History: Asthma, Pneumonia Additional Past Medical History / Comment(s): TACHYCARDIA, peptic ulcers, anemia."HAS BEEN ON VENTILATOR IN PAST D/T SEVERE ASTHMA ATTACK," BULEMIA-STATES GETTING BETTER, CONSTIPATION. HERNIATED DISC, cervical cancer. 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 recent antibiotoc for infection in arm-now resolved per pt, COVID 12/30/20. 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 Surgery on her cervix for cancer, rt foot surgery(Fx), cysto/lithotripsy , left hip replacement 12/2018, lumbar puncture, cervical biopsy in August @[facility], bone tumor removal Past Anesthesia/Blood Transfusion Reactions: Postoperative Nausea & Vomiting (PONV) Past Psychological History: Anxiety, Depression Additional Psychological History / Comment(s): . Smoking Status: Never smoker Past Alcohol Use History: None Reported Past Drug Use History: None Reported Additional Drug Use History / Comment(s): . - Past Family History Mother Family Medical History: Pneumonia Additional Family Medical History / Comment(s): Mother of pneumonia. Kayleen durham's son of brain cancer, last mother and father both liver cancer Son(s) Family Medical History: Cancer Additional Family Medical History / Comment(s): Son of brain cancer. Father Family Medical History: Cancer Additional Family Medical History / Comment(s): Liver Cancer. Medications and Allergies Home Medications Medication Instructions Recorded Confirmed Type Medroxyprogesterone Acetate 150 mg IM Q84D 07/10/18 12/19/22 History [Depo-Provera] Omalizumab [Xolair] 300 mg SQ Q30D 07/10/18 12/19/22 History PARoxetine [Paxil] 20 mg PO HS 12/18/19 12/19/22 History Fluticasone Propionate [Flovent 2 puff INHALATION RT-BID 06/13/20 12/19/22 History Hfa 220 mcg] Loratadine [Claritin] 10 mg PO DAILY 06/13/20 12/19/22 History SUMAtriptan succinate [Imitrex] 100 mg PO BID PRN 06/13/20 12/19/22 History Botox Neck Injection 400 mg SQ Q70D 08/30/20 12/19/22 History Albuterol Sulfate [Ventolin HFA] 2 puff INHALATION RT-Q6H PRN 09/30/20 12/19/22 History Cholecalciferol (Vitamin D3) 125 mcg PO DAILY 03/01/22 12/19/22 History [Vitamin D3 (125 MCG = 5,000 IU)] EPINEPHrine (Auto Inject) [Epipen] 0.3 mg IM ONCE PRN 03/01/22 12/19/22 History Panzyga 10% Infusion 1 dose IV Q28D 03/01/22 12/19/22 History diazePAM [Valium] 2 mg PO Q12H PRN 03/01/22 12/19/22 History Levothyroxine Sodium [Synthroid] 150 mcg PO DAILY 05/28/22 12/19/22 History HYDROcodone/APAP 7.5-325MG [[place] 1 tab PO Q6H PRN 30 Days #120 tab 11/07/22 12/19/22 Rx 7.5-325] Albuterol Nebulized [Ventolin 2.5 mg INHALATION RT-Q6H PRN 12/19/22 12/19/22 History Nebulized] Cyclobenzaprine [Flexeril] 5 mg PO QID 12/19/22 12/19/22 History Montelukast [Singulair] 10 mg PO DAILY 12/19/22 12/19/22 History traZODone HCL [Desyrel] 100 mg PO HS 12/19/22 12/19/22 History Allergies Allergy/AdvReac Type Severity Reaction Status Date / Time No Known Allergies Allergy Verified 12/19/22 14:28 Physical Exam Vitals: Vital Signs Temp Pulse Pulse Resp BP BP Pulse Ox 12/20/22 07:37 18 12/20/22 07:00 98.4 F 90 18 104/70 97 12/19/22 22:44 97.7 F 76 16 115/84 99 12/19/22 21:45 97.2 F L 86 18 108/69 98 12/19/22 19:14 84 20 120/76 12/19/22 13:23 97.0 F L 140 H 22 120/66 96 Intake and Output 12/19/22 12/20/22 12/20/22 22:59 06:59 14:59 Intake Total 120 Output Total 200 Balance -200 120 Intake: Oral 120 Output: Urine 200 Other: Voiding Method Diaper Diaper Diaper External Catheter External Catheter External Catheter Weight 68.039 kg Results CBC & Chem 7: 12/19/22 16:10 12/19/22 16:10 Labs: Abnormal Lab Results - Last 24 Hours (Table) 12/19/22 Range/Units 16:10 AST 47 H (14-36) U/L Creatine Kinase 230 H (30-135) U/L TSH 8.130 H (0.465-4.680) mIU/L
[2022-12-20] MEDS: MAGNESIUM SULFATE-D5W PMX 1 GM in DEXTROSE/WATER 1 100ML.BAG IVPB SCH ×2 (13:39→15:03)
[2022-12-20] MEDS: tiZANidine 4 MG TAB PO PRN (14:37)
--- NOTE | 2022-12-20 19:33 | P.CNNES ---
History of Present Illness Consult date: 12/20/22 Requesting physician: Fabien Kelly Reason for Consult: Stiff person syndrome History of Present Illness: Patient is a 42-year-old female with history with history of stiff person syndrome, asthma, GERD, seizure, hypothyroidism, bulimia, herniated disc, cervical cancer, migraines, cervical dystonia, anxiety, depression came to the hospital yesterday at 1:20 PM by ambulance with worsening spasms. Patient states that she started having symptoms of stiff person syndrome in 2016. At first it was felt that she may have MS. Patient was diagnosed with stiff person syndrome in December 2021 after she was found to have elevated long antibodies and abnormal EMG testing. She follows up with neurologist at [facility]. Patient was started on IVIG in February 2022. She receives IVIG 1 week a month on Saturday and Saturday. Patient says that IVIG has helped with her total body spasms, but she still gets spasms every day but those are manageable and involves some part of the body like feet, leg, left more than right, sometimes face. Patient states that it affects her swallowing and she sometimes chokes. Patient says that she has been falling a lot, the legs feels heavy. 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 She used to be in the ER all the time, but now has much improved. Patient's last IVIG treatment was on 12/03/2022 and 12/04/2022. Patient states that last 12/15/2022, she developed worsening of spasms, for unclear cause. Typical triggers include dehydration, pain, cold or infection. She was not feeling sick, only feeling just tired and weak. She did not feel well on Saturday. Yesterday spasms got worse again, therefore she called the ambulance. As per EMS flow sheet when they arrived, patient was alert and oriented laying on the couch with full body spasms and tremors. Her vitals in the scene was blood pressure 147/112, which came down to 154/96, pulse rate 126, respiration 28, saturation 98%. Patient states that she took Flexeril, [place] and Valium, but did not help. The spasms sometimes can last up to 2 hours. Today she feels like she was "hit by a bus". Patient has previously tried Zanaflex, but it decreases her blood pressure. Pain management also following the patient, and recommending to give her lower but frequent doses of Zanaflex. She also gets Botox injections in the shoulders and neck. Patient currently takes Flexeril 5 mg 4 times a day, trazodone 100 mg at bedtime, [place] 7.5 every 6 hours when necessary, Botox 400 units every 70 days, Imitrex 100 mg twice a day when necessary, Paxil 20 mg, Depo-Provera, Xolair 300 mg subcu every 30 days, Panzyga 10% infusion, every 28 days. Patient's last MRI of the brain from 07/01/2019 reveals single small white matter high increased signal in left frontal lobe slightly increased in size compared to old exam. 3 mm similar focus right posterior frontal lobe white matter unchanged. Otherwise negative exam. Patient has never smoked, does not drink alcohol, denies hypertension or diabetes. 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 Patient has long-standing history of asthma, requiring multiple, numerous times use of steroids. 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 Patient had a normal CSF on 07/01/2019 with 3 RBCs, 0 WBC, proteins 23, glucose 51. Patient previously had normal rheumatoid factor, dsDNA, complements C3 and C4 whereas CH 50 was slightly elevated 150/144. Hepatitis, HIV negative. KEVIN negative. CCP negative. Review of Systems Constitutional: Denies chills, Denies fever Eyes: denies blurred vision, denies diplopia, denies pain Ears: deny: decreased hearing, ear discharge Ears, nose, mouth and throat: Reports headache, Denies sore throat Cardiovascular: Denies chest pain, Denies shortness of breath Respiratory: Denies cough, Denies excessive sputum Gastrointestinal: Reports nausea, Denies abdominal pain, Denies diarrhea, Denies vomiting Neurological: Reports as per HPI Past Medical History Past Medical History: Asthma, Pneumonia Additional Past Medical History / Comment(s): TACHYCARDIA, peptic ulcers, anemia."HAS BEEN ON VENTILATOR IN PAST D/T SEVERE ASTHMA ATTACK," BULEMIA-STATES GETTING BETTER, CONSTIPATION. HERNIATED DISC, cervical cancer. 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 recent antibiotoc for infection in arm-now resolved per pt, COVID 12/30/20. 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 Surgery on her cervix for cancer, rt foot surgery(Fx), cysto/lithotripsy , left hip replacement 12/2018, lumbar puncture, cervical biopsy in August @[facility], bone tumor removal Past Anesthesia/Blood Transfusion Reactions: Postoperative Nausea & Vomiting (PONV) Past Psychological History: Anxiety, Depression Additional Psychological History / Comment(s): . Smoking Status: Never smoker Past Alcohol Use History: None Reported Past Drug Use History: None Reported Additional Drug Use History / Comment(s): . - Past Family History Mother Family Medical History: Pneumonia Additional Family Medical History / Comment(s): Mother of pneumonia. Patient's son of brain cancer, last mother and father both liver cancer Son(s) Family Medical History: Cancer Additional Family Medical History / Comment(s): Son of brain cancer. Father Family Medical History: Cancer Additional Family Medical History / Comment(s): Liver Cancer. Medications and Allergies Home Medications Medication Instructions Recorded Confirmed Type Medroxyprogesterone Acetate 150 mg IM Q84D 07/10/18 12/19/22 History [Depo-Provera] Omalizumab [Xolair] 300 mg SQ Q30D 07/10/18 12/19/22 History PARoxetine [Paxil] 20 mg PO HS 12/18/19 12/19/22 History Fluticasone Propionate [Flovent 2 puff INHALATION RT-BID 06/13/20 12/19/22 Hist ory Hfa 220 mcg] Loratadine [Claritin] 10 mg PO DAILY 06/13/20 12/19/22 History SUMAtriptan succinate [Imitrex] 100 mg PO BID PRN 06/13/20 12/19/22 History Botox Neck Injection 400 mg SQ Q70D 08/30/20 12/19/22 History Albuterol Sulfate [Ventolin HFA] 2 puff INHALATION RT-Q6H PRN 09/30/20 12/19/22 History Cholecalciferol (Vitamin D3) 125 mcg PO DAILY 03/01/22 12/19/22 History [Vitamin D3 (125 MCG = 5,000 IU)] EPINEPHrine (Auto Inject) [Epipen] 0.3 mg IM ONCE PRN 03/01/22 12/19/22 History Panzyga 10% Infusion 1 dose IV Q28D 03/01/22 12/19/22 History diazePAM [Valium] 2 mg PO Q12H PRN 03/01/22 12/19/22 History Levothyroxine Sodium [Synthroid] 150 mcg PO DAILY 05/28/22 12/19/22 History HYDROcodone/APAP 7.5-325MG [[place] 1 tab PO Q6H PRN 30 Days #120 tab 11/07/22 Rx 7.5-325] Albuterol Nebulized [Ventolin 2.5 mg INHALATION RT-Q6H PRN 12/19/22 12/19/22 History Nebulized] Cyclobenzaprine [Flexeril] 5 mg PO QID 12/19/22 12/19/22 History Montelukast [Singulair] 10 mg PO DAILY 12/19/22 12/19/22 History traZODone HCL [Desyrel] 100 mg PO HS 12/19/22 12/19/22 History Allergies Allergy/AdvReac Type Severity Reaction Status Date / Time No Known Allergies Allergy Verified 12/19/22 14:28 Physical Examination - Vital Signs Vital Signs: Vital Signs Temp Pulse Pulse Resp BP BP Pulse Ox 12/20/22 07:37 18 12/20/22 07:00 98.4 F 90 18 104/70 97 12/19/22 22:44 97.7 F 76 16 115/84 99 12/19/22 21:45 97.2 F L 86 18 108/69 98 12/19/22 19:14 84 20 120/76 Intake and Output 12/19/22 12/20/22 12/20/22 22:59 06:59 14:59 Intake Total 240 Output Total 200 Balance -200 240 Intake: Oral 240 Output: Urine 200 Other: Voiding Method Diaper Diaper Diaper External Catheter External Catheter External Catheter # Voids 1 Weight 68.039 kg Patient is a middle aged female, who is laying comfortably in the bed at this time. Patient is alert awake oriented to time place and person. Speech and language functions are normal. Patient can name and repeat very well. No aphasia or dysarthria. Attention, concentration and fund of knowledge is adequate. On cranial nerve examination, pupils are equal, round and reacting to light, visual cervantes are full on confrontation, with no neglect on double simultaneous stimulation. Extraocular muscles are intact with no nystagmus. Face is symmetric, tongue protrudes to the midline. Palatal elevation and sensation normal, hearing and shoulder shrug normal, facial sensation normal. On muscle strength testing, there is no pronator drift and the strength is normal in arms and legs distally and proximally. Deep tendon reflexes are symmetric 2+ in the arms and legs and plantars are decreased vocal. Sensory to touch is equal with no neglect on double simultaneous stimulation. Cerebellar function showed no ataxia for [id number] testing. No dysdiadochokinesia. No ataxia for [id number] testing on either side. Tone and bulk of muscles normal. Gait deferred.. On general examination, there is no carotid bruit or murmur, S1-S2 audible. Chest is clear on consultation. Abdomen is soft nontender. No organomegaly, bowel sounds present. Peripheral pulses are present. No edema. Patient apparently developed spasm in front of me, which started in the arms, and then the body, and then went to the lower limbs. She was moaning, groaning, trying with the spasm, and the body was stiff, rigid almost dystonic all over. She was curled up on her right side. Results - Laboratory Findings CBC and BMP: 12/19/22 16:10 12/19/22 16:10 Abnormal Lab Findings: Abnormal Labs 12/19/22 16:10 AST 47 H Creatine Kinase 230 H TSH 8.130 H Assessment and Plan Assessment: * 42-year-old female with 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 Patient developed recent exacerbation with body spasms since last few days, for unclear cause. No obvious triggers identified. * Asthma * Seizure * Hypothyroidism * Bulimia * Herniated disc * Degenerative disc disease * History of left hip AVN, status post arthroplasty age 38 Plan: * Start Zanaflex 2 mg 3 times a day when necessary. Valium 2 mg twice a day when necessary spasms. The patient also on [place], currently on Dilaudid 0.5 mg IV push every 3 hours when necessary. * Patient already has received IVIG about 2-1/2 weeks ago. She is not due until 1.5 weeks from now. * Check long antibodies. If the long antibodies are elevated and symptoms persist, may consider either steroids or an extra dose of IVIG. * CK is mildly elevated 230/135, likely due to spasms. * Check B12, folate. TSH is elevated 8.13 and free T4 1.57. We will defer IM to address abnormal thyroid functions. * Pain management also on board. * Neurology will follow clinically. Thank you for the consult. Time with Patient: Greater than 30
[2022-12-20] MEDS: PARoxetine 20 MG TAB PO SCH (20:34)
[2022-12-20] MEDS: traZODone HCL 50 MG TAB PO SCH (20:34)
[2022-12-21] MEDS: METOCLOPRAMIDE 5 MG/ML 2 ML VIAL IVP PRN (04:02)
[2022-12-21] MEDS: HYDROmorphone 0.5 MG/0.5 ML SYRINGE IVP PRN ×5 (04:03→18:15)
[2022-12-21] MEDS: SODIUM CHLORIDE 0.9% 1,000 ML IV SCH ×3 (05:27→21:13)
[2022-12-21] MEDS: LEVOTHYROXINE 75 MCG TAB PO SCH (05:28)
[2022-12-21] MEDS: LEVOTHYROXINE 100 MCG TAB PO SCH (05:28)
[2022-12-21] MEDS: CHOLECALCIFEROL 125 MCG (5000 IU) TABLET PO SCH (07:53)
[2022-12-21] MEDS: LORATADINE 10 MG TAB PO SCH (07:53)
[2022-12-21] MEDS: MONTELUKAST 10 MG TAB PO SCH (07:53)
[2022-12-21] MEDS: FAMOTIDINE 20 MG TAB PO SCH ×2 (07:53→21:11)
[2022-12-21] MEDS: ENOXAPARIN 40 MG/0.4 ML SYRINGE SQ SCH (07:54)
[2022-12-21] MEDS: diazePAM 2 MG TAB PO PRN (09:34)
[2022-12-21] MEDS: FLUTICASONE 220 MCG INHALER INHALATION SCH ×2 (09:48→20:50)
[2022-12-21] MEDS: dexAMETHasone 4 MG TAB PO SCH (13:45)
[2022-12-21] MEDS: FOLIC ACID 1 MG TAB PO SCH (13:45)
[2022-12-21] MEDS: tiZANidine 4 MG TAB PO PRN (13:48)
--- NOTE | 2022-12-21 18:51 | P.PN ---
Subjective Progress Note Date: 12/21/22 Patient was seen for a follow-up. Patient is laying comfortably in the bed. Patient states that she had to episodes of spasms yesterday, and one so far today. Patient states that the episode lasts for about 20-30 minutes. She cannot recall when she is spasming. At present patient looks comfortable. Objective - Vital Signs Vital signs: Vital Signs Temp 97.7 F 12/21/22 07:00 Pulse 72 12/21/22 07:00 Resp 16 12/21/22 07:00 BP 112/75 12/21/22 07:00 Pulse Ox 97 12/21/22 07:00 FiO2 Intake & Output 12/20/22 12/21/22 12/21/22 18:59 06:59 18:59 Intake Total 240 Balance 240 Intake: Oral 240 Other: Voiding Method Diaper External Catheter # Voids 1 2 - Exam Mental status, speech and language functions are normal, cranial nerves and muscle strength normal. - Labs CBC & Chem 7: 12/19/22 16:10 12/19/22 16:10 Assessment and Plan Assessment: * 42-year-old female with 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 Patient developed recent exacerbation with body spasms since last few days, for unclear cause. No obvious triggers identified. * Asthma * Seizure * Hypothyroidism * Bulimia * Herniated disc * Degenerative disc disease * History of left hip AVN, status post arthroplasty age 38 Plan: * Continue Zanaflex 2 mg 3 times a day when necessary. Valium 2 mg twice a day when necessary spasms. The patient also on [place], currently on Dilaudid 0.5 mg IV push every 3 hours when necessary. * Patient is requesting for trial of steroids. Patient will be given dexamethasone 4 mg daily for 2 days. If no improvement, then stop it. If significant improvement, then suggest decreasing to 2 mg daily for next 2 days and then 1 mg for next 2 days and then stop. * Patient already has received IVIG about 2-1/2 weeks ago. She is not due until 1.5 weeks from now. * Check long antibodies. If the long antibodies are elevated and symptoms persist, may consider an extra dose of IVIG. * CK is mildly elevated 230/135, likely due to spasms. * B12 460, folate 6.9, we'll start folate replacement. TSH is elevated 8.13 and free T4 1.57. We will defer IM to address abnormal thyroid functions. * Pain management also on board. * Dr. Shen will cover neurology service over the weekend.
[2022-12-21] MEDS: traZODone HCL 50 MG TAB PO SCH (21:11)
[2022-12-21] MEDS: PARoxetine 20 MG TAB PO SCH (21:11)
--- NOTE | 2022-12-21 22:34 | P.PN ---
Subjective Progress Note Date: 12/21/22 42-year-old pleasant female with known history of stiff man syndrome, uses walker at home and is on Flexeril and Valium for spasms came in with severe back spasms lasting for 2 hours. Patient denied any recent viral illness patient missed her medications. Patient usually receives IVIG infusions for Stiff man syndrome. Patient in the past was on Zanaflex but had lightheadedness with that because of which patient was not continued on this because of continued severe spasm patient was restarted back on this medication will monitor overnight. 12/21/2022 Patient is evaluated today resting in bed. Had an episode of whole body muscle spasm earlier today and required IV valium for this. Patient continues to feel fatigued and sore. Neurology has ordered DEONDRE antibodies which are pending at this time and will consider dose of IVIG or decadron. Review of Systems Constitutional: Denied any fatigue denied any fever. Cardio vascular: denied any chest pain, palpitations Gastrointestinal: denied any nausea, vomiting, diarrhea Pulmonary: Denied any shortness of breath cough Neurologic denied any new focal deficits All inpatient medications were reviewed and appropriate changes in these medications as dictated in the interval history and assessment and plan. PHYSICAL EXAMINATION: GENERAL: The patient is alert and oriented x3, not in any acute distress. Well developed, well nourished. HEENT: Pupils are round and equally reacting to light. EOMI. No scleral icterus. No conjunctival pallor. Normocephalic, atraumatic. No pharyngeal erythema. No thyromegaly. CARDIOVASCULAR: S1 and S2 present. No murmurs, rubs, or gallops. PULMONARY: Chest is clear to auscultation, no wheezing or crackles. ABDOMEN: Soft, nontender, nondistended, normoactive bowel sounds. No palpable organomegaly. MUSCULOSKELETAL: No joint swelling or deformity. EXTREMITIES: No cyanosis, clubbing, or pedal edema. NEUROLOGICAL: Gross neurological examination did not reveal any new focal d eficits. Does have chronic weakness and bilateral lower extremities SKIN: No rashes. Assessment and plan -Severe back spasms: Secondary to treatment syndrome, patient was started on Zanaflex continue with home dose of [place], patient is on Toradol as well as with GI prophylaxis -Asthma without any acute exacerbation -Hypothyroidism TSH is elevated, Levothyroxine is increased -Depression DVT prophylaxis: Lovenox Full Code Plan Patient recommended to be monitor on inpatient status as requiring IV medications for cessation of muscle spasming today and the trigger the exacerbation still unkown. DEONDRE antibodies are still pending. The impression and plan of care has been dictated by Nathalia Cordoba, Nurse Practitioner as directed. Dr. Daquan MD I have performed a history and physical examination and medical decision making of this patient, discussed the same with the dictator, and agree with the dictators assessment and plan as written, documented as a scribe. Based on total visit time, I have performed more than 50% of this visit. Objective - Vital Signs Vital signs: Vital Signs Temp 98.3 F 12/21/22 14:09 Pulse 84 12/21/22 14:09 Resp 16 12/21/22 14:09 BP 122/84 12/21/22 14:09 Pulse Ox 98 12/21/22 14:09 FiO2 Intake & Output 12/20/22 12/21/22 12/21/22 18:59 06:59 18:59 Intake Total 240 Balance 240 Intake: Oral 240 Other: Voiding Method Diaper Diaper External Catheter # Voids 1 2 3 - Labs CBC & Chem 7: 12/19/22 16:10 12/19/22 16:10 Assessment and Plan Time with Patient: Less than 30
[2022-12-22] MEDS: HYDROmorphone 0.5 MG/0.5 ML SYRINGE IVP PRN ×6 (00:12→21:27)
[2022-12-22] MEDS: SODIUM CHLORIDE 0.9% 1,000 ML IV SCH ×3 (03:30→15:41)
[2022-12-22] MEDS: LEVOTHYROXINE 75 MCG TAB PO SCH (06:28)
[2022-12-22] MEDS: LEVOTHYROXINE 100 MCG TAB PO SCH (06:28)
[2022-12-22] MEDS: FLUTICASONE 220 MCG INHALER INHALATION SCH ×2 (07:26→19:49)
[2022-12-22] MEDS: CHOLECALCIFEROL 125 MCG (5000 IU) TABLET PO SCH (08:17)
[2022-12-22] MEDS: ENOXAPARIN 40 MG/0.4 ML SYRINGE SQ SCH (08:17)
[2022-12-22] MEDS: LORATADINE 10 MG TAB PO SCH (08:17)
[2022-12-22] MEDS: FAMOTIDINE 20 MG TAB PO SCH ×2 (08:17→21:11)
[2022-12-22] MEDS: diazePAM 2 MG TAB PO PRN (08:17)
[2022-12-22] MEDS: FOLIC ACID 1 MG TAB PO SCH (08:17)
[2022-12-22] MEDS: dexAMETHasone 4 MG TAB PO SCH (08:17)
[2022-12-22] MEDS: MONTELUKAST 10 MG TAB PO SCH (08:17)
[2022-12-22] MEDS: METOCLOPRAMIDE 5 MG/ML 2 ML VIAL IVP PRN ×2 (08:24→16:55)
[2022-12-22] MEDS ORDERED: IMMUNE GLOBULIN (GAMMAGARD) 30 GM in EMPTY BAG 1 BAG IV ONE (11:30)
--- NOTE | 2022-12-22 14:15 | P.PN ---
Subjective Progress Note Date: 12/22/22 The patient is seen in neurologic follow-up on December 22, 2022, via teleneurology. The patient's chart has been reviewed. She reports that she had a rough night. She reports continued, severe spasms sometimes involving her entire body. She has been receiving IVIG G, for maintenance treatment of her stiff person syndrome. The patient reports that her most recent infusion was December 03. She receives her infusions every 2 weeks. She reports that her dose is 45 mg. The patient also takes Flexeril, Valium and baclofen, to help with muscle spasms. The patient reports coming into the hospital because her spasms had become so severe and generalized that she was having difficulty breathing. The patient was diagnosed with stiff person syndrome by a neurologist. She reportedly has positive DEONDRE antibodies. The patient reports that her IVIG G has been beneficial. Because she has received this dose for one year, she and her neurologist were going to discuss decreasing in the frequency of infusions. Objective - Vital Signs Vital signs: Vital Signs Temp 98.3 F 12/22/22 07:00 Pulse 81 12/22/22 07:00 Resp 15 12/22/22 07:00 BP 124/78 12/22/22 07:00 Pulse Ox 98 12/22/22 07:00 FiO2 Intake & Output 12/21/22 12/22/22 12/22/22 18:59 06:59 18:59 Intake Total 264 35.583 Balance 264 35.583 Intake: Intake, IV Titration 35.583 Amount Immune Globulin ( 35.583 Gammagard) 30 gm In Empty Bag 1 bag @ Per Protocol IV .Q0M ONE Rx#: [id number] Oral 264 Other: Voiding Method Diaper Diaper # Voids 3 1 3 - Exam Gen.: The patient is reclining in the bed. She is well-nourished, well-devel oped and in no acute distress HEENT: Head is atraumatic, normocephalic. Fundus not visualized. There is no scleral icterus. Mucous membranes are moist. Neurological examination Mental status: The patient is awake, alert and oriented 3. Her speech is clear. Cranial nerves: 2-12 grossly intact Motor: There is increased tone throughout. There are visible muscle spasms of the patient's left foot and ankle. Sensation: Intact to light touch Deep tendon reflexes: 3+/4+ throughout - Labs CBC & Chem 7: 12/19/22 16:10 12/19/22 16:10 Assessment and Plan Assessment: 42-year-old female with 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 Patient developed recent exacerbation with body spasms since last few days, for unclear cause. No obvious triggers identified. * Asthma * Seizure * Hypothyroidism * Bulimia * Herniated disc * Degenerative disc disease * History of left hip AVN, status post arthroplasty age 38 Plan: 1. We will discontinue Decadron at this time 2. The patient will be given a dose of IVIG G, depending on effectiveness, may repeat 1 3. Continue Valium as ordered Time with Patient: Greater than 30 (35 minutes were spent in caring for this patient today including, obtaining a history, Examining the patient, reviewing chart documentation, labs, placing orders and creating this note)
--- NOTE | 2022-12-22 14:22 | P.PN ---
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 Patient denied any recent viral illness patient missed her medications. Patient usually receives IVIG infusions for Stiff man syndrome. Patient in the past was on Zanaflex but had lightheadedness with that because of which patient was not continued on this because of continued severe spasm patient was restarted back on this medication will monitor overnight. 12/21/2022 Patient is evaluated today resting in bed. Had an episode of whole body muscle spasm earlier today and required IV valium for this. Patient continues to feel fatigued and sore. Neurology has ordered DEONDRE antibodies which are pending at this time and will consider dose of IVIG or decadron. 12/22/2022 Patient is evaluated today resting that she had an second episode of a whole- body muscle spasm later on yesterday continues to feel sore and does report some left-sided weakness which her left is usually effective more than her right side. Patient has been seen by neurology via [facility] [employer] and recommending for infusion of IVIG today and again tomorrow. Patient is also receiving oral decadron. Review of Systems Constitutional: Denied any fatigue denied any fever. Cardio vascular: denied any chest pain, palpitations Gastrointestinal: denied any nausea, vomiting, diarrhea Pulmonary: Denied any shortness of breath cough Neurologic denied any new focal deficits All inpatient medications were reviewed and appropriate changes in these med ications as dictated in the interval history and assessment and plan. PHYSICAL EXAMINATION: GENERAL: The patient is alert and oriented x3, not in any acute distress. Well developed, well nourished. HEENT: Pupils are round and equally reacting to light. EOMI. No scleral icterus. No conjunctival pallor. Normocephalic, atraumatic. No pharyngeal erythema. No thyromegaly. CARDIOVASCULAR: S1 and S2 present. No murmurs, rubs, or gallops. PULMONARY: Chest is clear to auscultation, no wheezing or crackles. ABDOMEN: Soft, nontender, nondistended, normoactive bowel sounds. No palpable organomegaly. MUSCULOSKELETAL: No joint swelling or deformity. EXTREMITIES: No cyanosis, clubbing, or pedal edema. NEUROLOGICAL: Gross neurological examination did not reveal any new focal deficits. Does have chronic weakness and bilateral lower extremities SKIN: No rashes. Assessment and plan -Severe back/muscle spasms: Secondary to stiff persons syndrome -Asthma without any acute exacerbation -Hypothyroidism TSH is elevated, Levothyroxine is increased -Depression DVT prophylaxis: Lovenox Full Code Plan Patient recommended to be monitor on inpatient status as requiring IV medications for cessation of muscle spasming today and the trigger the exacerbation still unkown. DEONDRE antibodies are still pending. Neurology has started patient on course of oral decadron and also patient will have IVIG infusion today and tomorrow. The impression and plan of care has been dictated by Nathalia Cordoba Nurse Practitioner as directed. Dr. Daquan MD I have performed a history and physical examination and medical decision making of this patient, discussed the same with the dictator, and agree with the dictators assessment and plan as written, documented as a scribe. Based on total visit time, I have performed more than 50% of this visit. Objective - Vital Signs Vital signs: Vital Signs Temp 98.3 F 12/22/22 07:00 Pulse 81 12/22/22 07:00 Resp 15 12/22/22 07:00 BP 124/78 12/22/22 07:00 Pulse Ox 98 12/22/22 07:00 FiO2 Intake & Output 12/21/22 12/22/22 12/22/22 18:59 06:59 18:59 Intake Total 264 35.583 Balance 264 35.583 Intake: Intake, IV Titration 35.583 Amount Immune Globulin ( 35.583 Gammagard) 30 gm In Empty Bag 1 bag @ Per Protocol IV .Q0M ONE Rx#: [id number] Oral 264 Other: Voiding Method Diaper Diaper # Voids 3 1 3 - Labs CBC & Chem 7: 12/19/22 16:10 12/19/22 16:10 Assessment and Plan Time with Patient: Less than 30
[2022-12-22] MEDS: traZODone HCL 50 MG TAB PO SCH (21:11)
[2022-12-22] MEDS: PARoxetine 20 MG TAB PO SCH (21:11)
[2022-12-23] MEDS: LEVOTHYROXINE 100 MCG TAB PO SCH (05:20)
[2022-12-23] MEDS: LEVOTHYROXINE 75 MCG TAB PO SCH (05:20)
[2022-12-23] MEDS: HYDROmorphone 0.5 MG/0.5 ML SYRINGE IVP PRN ×6 (05:20→21:47)
[2022-12-23] MEDS: FLUTICASONE 220 MCG INHALER INHALATION SCH ×2 (07:24→18:39)
[2022-12-23] MEDS: FOLIC ACID 1 MG TAB PO SCH (08:38)
[2022-12-23] MEDS: MONTELUKAST 10 MG TAB PO SCH (08:38)
[2022-12-23] MEDS: LORATADINE 10 MG TAB PO SCH (08:38)
[2022-12-23] MEDS: dexAMETHasone 4 MG TAB PO SCH (08:38)
[2022-12-23] MEDS: CHOLECALCIFEROL 125 MCG (5000 IU) TABLET PO SCH (08:38)
[2022-12-23] MEDS: FAMOTIDINE 20 MG TAB PO SCH ×2 (08:39→20:39)
[2022-12-23] MEDS: ENOXAPARIN 40 MG/0.4 ML SYRINGE SQ SCH (08:39)
[2022-12-23] MEDS ORDERED: MAG HYDROX/AL HYDROX/SIMETH 30 ML CUP PO PRN (10:27)
[2022-12-23] MEDS ORDERED: LACTULOSE 20 GM/30 ML CUP PO ONE (10:30)
[2022-12-23] MEDS: NAPROXEN 250 MG TAB PO SCH ×2 (10:45→20:39)
[2022-12-23] MEDS: dexAMETHasone 2 MG TAB PO SCH (10:45)
[2022-12-23] MEDS: tiZANidine 4 MG TAB PO SCH ×3 (10:45→20:39)
[2022-12-23] MEDS: SODIUM CHLORIDE 0.9% 1,000 ML IV SCH (10:45)
[2022-12-23] MEDS: HYDROcodone/APAP 10-325MG 1 EACH TAB PO PRN ×2 (10:48→17:53)
[2022-12-23] MEDS: diazePAM 2 MG TAB PO PRN (11:45)
[2022-12-23] MEDS ORDERED: IMMUNE GLOBULIN (GAMMAGARD) 30 GM in EMPTY BAG 1 BAG IV ONE (14:30)
[2022-12-23] MEDS: METOCLOPRAMIDE 5 MG/ML 2 ML VIAL IVP PRN (14:43)
--- NOTE | 2022-12-23 16:32 | P.PN ---
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 Patient denied any recent viral illness patient missed her medications. Patient usually receives IVIG infusions for Stiff man syndrome. Patient in the past was on Zanaflex but had lightheadedness with that because of which patient was not continued on this because of continued severe spasm patient was restarted back on this medication will monitor overnight. 12/21/2022 Patient is evaluated today resting in bed. Had an episode of whole body muscle spasm earlier today and required IV valium for this. Patient continues to feel fatigued and sore. Neurology has ordered DEONDRE antibodies which are pending at this time and will consider dose of IVIG or decadron. 12/22/2022 Patient is evaluated today resting that she had an second episode of a whole- body muscle spasm later on yesterday continues to feel sore and does report some left-sided weakness which her left is usually effective more than her right side. Patient has been seen by neurology via [employer] and recommending for infusion of IVIG today and again tomorrow. Patient is also receiving oral decadron. 12/23/2022 Patient recommended to receive a second dose of IVIG infusion today by the beginning neurologist as patient continues to have full body muscle spasms especially with ambulation she has not been able to tolerate much activity level and continues to have pain. She will be reevaluated by pain services tomorrow on Saturday and she does follow with an outpatient we will make some medication changes for better pain control and continue on the Valium and Zanaflex. 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 Hemodynamically she is stable. Review of Systems Constitutional: Denied any fatigue denied any fever. Cardio vascular: denied any chest pain, palpitations Gastrointestinal: denied any nausea, vomiting, diarrhea Pulmonary: Denied any shortness of breath cough Neurologic denied any new focal deficits All inpatient medications were reviewed and appropriate changes in these medications as dictated in the interval history and assessment and plan. PHYSICAL EXAMINATION: GENERAL: The patient is alert and oriented x3, not in any acute distress. Well developed, well nourished. HEENT: Pupils are round and equally reacting to light. EOMI. No scleral icterus. No conjunctival pallor. Normocephalic, atraumatic. No pharyngeal erythema. No thyromegaly. CARDIOVASCULAR: S1 and S2 present. No murmurs, rubs, or gallops. PULMONARY: Chest is clear to auscultation, no wheezing or crackles. ABDOMEN: Soft, nontender, nondistended, normoactive bowel sounds. No palpable organomegaly. MUSCULOSKELETAL: No joint swelling or deformity. EXTREMITIES: No cyanosis, clubbing, or pedal edema. NEUROLOGICAL: Gross neurological examination did not reveal any new focal de ficits. Does have chronic weakness and bilateral lower extremities SKIN: No rashes. Assessment and plan -Severe back/muscle spasms: Secondary to stiff persons syndrome -Asthma without any acute exacerbation -Hypothyroidism TSH is elevated, Levothyroxine is increased -Depression DVT prophylaxis: Lovenox Full Code Plan Patient recommended to be monitor on inpatient status as requiring IV medi cations for cessation of muscle spasming today and the trigger the exacerbation still unkown. Patient had attempted to ambulate today and ended up with full body muscle spasm again and had to be basically carried back to bed and will be evaluated by PT/OT. DEONDRE antibodies are still pending. Neurology recommended a second dose of IVIG today and neurology had recommended to stop the decadron however patient felt improved on this and decadron is being resumed as a taper. Patient is also offered naprosyn and norco has been increased to 10 mg dosing every 6 hours additionally, zanaflex to be scheduled for now with valium. Pain management services on consultation, and will follow up with patient tomorrow. The impression and plan of care has been dictated by Nathalia Cordoba, Nurse Practitioner as directed. Dr. Daquan MD I have performed a history and physical examination and medical decision making of this patient, discussed the same with the dictator, and agree with the dictators assessment and plan as written, documented as a scribe. Based on total visit time, I have performed more than 50% of this visit. Objective - Vital Signs Vital signs: Vital Signs Temp 98.2 F 12/23/22 07:00 Pulse 83 12/23/22 07:00 Resp 16 12/23/22 07:00 BP 138/94 12/23/22 07:00 Pulse Ox 97 12/23/22 07:00 FiO2 Intake & Output 12/22/22 12/23/22 12/23/22 18:59 06:59 18:59 Intake Total 335.583 Balance 335.583 Intake: Intake, IV Titration 35.583 Amount Immune Globulin ( 35.583 Gammagard) 30 gm In Empty Bag 1 bag @ Per Protocol IV .Q0M ONE Rx#: [id number] Oral 300 Other: Voiding Method Diaper Diaper Diaper # Voids 3 2 - Labs CBC & Chem 7: 12/19/22 16:10 12/19/22 16:10 Assessment and Plan Time with Patient: Less than 30
--- NOTE | 2022-12-23 16:43 | P.PN ---
Subjective Progress Note Date: 12/23/22 The patient is seen in neurologic follow-up on December 22, 2022, via [facility]. The patient's chart has been reviewed. She reports that she had a rough night. She reports continued, severe spasms sometimes involving her entire body. She has been receiving IVIG G, for maintenance treatment of her stiff person syndrome. The patient reports that her most recent infusion was December 03. She receives her infusions every 2 weeks. She reports that her dose is 45 mg. The patient also takes Flexeril, Valium and baclofen, to help with muscle spasms. The patient reports coming into the hospital because her spasms had become so severe and generalized that she was having difficulty breathing. The patient was diagnosed with stiff person syndrome by a neurologist. She reportedly has positive DEONDRE antibodies. The patient reports that her IVIG G has been beneficial. Because she has received this dose for one year, she and her neurologist were going to discuss decreasing in the frequency of infusions. The patient is seen in neurologic follow-up on December 23, 2022, in collaboration with Amina Delgado, via [facility]. The patient is seated on the edge of the bed. She states that she was att empting to ambulate this morning and had pain in her legs which resulted in a severe spasm of her back. She feels a yesterday's dose of IV IgG was somewhat helpful. She continues to have pain and spasms. She reports being afraid and depressed. She is concerned because she does not know what triggered this flareup. She does report that she has been under a good deal of stress. Objective - Vital Signs Vital signs: Vital Signs Temp 98.4 F 12/23/22 15:00 Pulse 66 12/23/22 15:00 Resp 16 12/23/22 15:00 BP 110/71 12/23/22 15:00 Pulse Ox 99 12/23/22 15:00 FiO2 Intake & Output 12/22/22 12/23/22 12/23/22 18:59 06:59 18:59 Intake Total 335.583 600 Balance 335.583 600 Intake: Intake, IV Titration 35.583 Amount Immune Globulin ( 35.583 Gammagard) 30 gm In Empty Bag 1 bag @ Per Protocol IV .Q0M ONE Rx#: [id number] Oral 300 600 Other: Voiding Method Diaper Diaper Diaper # Voids 3 2 4 # Bowel Movements 0 - Exam Gen.: The patient is Seated on the edge of the bed. She is well-nourished, well-developed and in no acute distress HEENT: Head is atraumatic, normocephalic. Fundus not visualized. There is no scleral icterus. Mucous membranes are moist. Neurological examination Mental status: The patient is awake, alert and oriented 3. Her speech is clear. Cranial nerves: 2-12 grossly intact Motor: There is increased tone throughout. Because of increased tone in her neck, the patient's head is slightly turned to the right. Sensation: Intact to light touch Deep tendon reflexes: 3+/4+ throughout - Labs CBC & Chem 7: 12/19/22 16:10 12/19/22 16:10 Assessment and Plan Assessment: 42-year-old female with 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 Patient developed recent exacerbation with body spasms since last few days, for unclear cause. No obvious triggers identified. * Asthma * Seizure * Hypothyroidism * Bulimia * Herniated disc * Degenerative disc disease * History of left hip AVN, status post arthroplasty age 38 Plan: 1. We will discontinue Decadron at this time 2. The patient will be given Another dose of IVIG G 3. Continue Valium as ordered 4. Urinalysis was ordered 5. Discussed yoga, guided imagery and meditation with the patient, for assistance in relaxation Dr. Harmeet Mcbride will assume neurologic coverage of this patient as of December 24, 2022 Time with Patient: Greater than 30 (35 minutes were spent caring for this patient today including, obtaining history, examining the patient, reviewing chart documentation, labs, placing orders, counseling the patient and creating this note)
[2022-12-23 16:59] LABS: Color,Urine Light Yellow
[2022-12-23 17:00] LABS: Appearance,Urine Slightly Cloudy (Clear); Bilirubin,Urine Negative (Negative); Blood,Urine Small (Negative); Glucose,Urine (UA) Negative (Negative); Ketones,Urine Negative (Negative); Leukocyte Esterase,Urine Large (Negative); Nitrite,Urine Negative (Negative); Protein,Urine Negative (Negative); Specific Gravity,Urine 1.015 (1.001-1.035); Urobilinogen,Urine <2.0 mg/dL (<2.0); WBC,Urine 2 /hpf (0-5)
[2022-12-23 17:01] LABS: Bacteria,Urine Many /hpf; Squamous Epithelial Cell,Urine 15 /hpf (0-4)
[2022-12-23] MEDS: traZODone HCL 50 MG TAB PO SCH (20:39)
[2022-12-23] MEDS: PARoxetine 20 MG TAB PO SCH (20:39)
[2022-12-24] MEDS: LEVOTHYROXINE 100 MCG TAB PO SCH (05:41)
[2022-12-24] MEDS: LEVOTHYROXINE 75 MCG TAB PO SCH (05:41)
[2022-12-24] MEDS: HYDROmorphone 0.5 MG/0.5 ML SYRINGE IVP PRN ×6 (05:41→21:38)
[2022-12-24] MEDS: SODIUM CHLORIDE 0.9% 1,000 ML IV SCH (05:44)
[2022-12-24] MEDS: FOLIC ACID 1 MG TAB PO SCH (08:35)
[2022-12-24] MEDS: MONTELUKAST 10 MG TAB PO SCH (08:35)
[2022-12-24] MEDS: FAMOTIDINE 20 MG TAB PO SCH ×2 (08:35→20:04)
[2022-12-24] MEDS: LORATADINE 10 MG TAB PO SCH (08:35)
[2022-12-24] MEDS: dexAMETHasone 2 MG TAB PO SCH (08:35)
[2022-12-24] MEDS: CHOLECALCIFEROL 125 MCG (5000 IU) TABLET PO SCH (08:35)
[2022-12-24] MEDS: NAPROXEN 250 MG TAB PO SCH ×2 (08:35→20:03)
[2022-12-24] MEDS: ENOXAPARIN 40 MG/0.4 ML SYRINGE SQ SCH (08:35)
[2022-12-24] MEDS: tiZANidine 4 MG TAB PO SCH ×3 (08:36→20:04)
[2022-12-24] MEDS: METOCLOPRAMIDE 5 MG/ML 2 ML VIAL IVP PRN ×2 (08:36→21:38)
[2022-12-24 09:03] LABS: BUN/Creat Ratio 7.56 Ratio (12.00-20.00); Blood Urea Nitrogen 6.8 mg/dL (9.0-27.0); Calcium 8.8 mg/dL (8.7-10.3); Carbon Dioxide 28.1 mmol/L (21.6-31.8); Chloride 104 mmol/L (96-109); Glucose 89 mg/dL (70-110); Potassium 3.7 mmol/L (3.5-5.5); Sodium 140 mmol/L (135-145)
[2022-12-24] MEDS: FLUTICASONE 220 MCG INHALER INHALATION SCH ×2 (09:22→20:03)
[2022-12-24] MEDS ORDERED: LACTULOSE 20 GM/30 ML CUP PO PRN (13:46)
[2022-12-24] MEDS ORDERED: bisacodyL 10 MG SUPP RECTAL STA (13:46)
--- NOTE | 2022-12-24 14:00 | P.PN ---
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 Patient denied any recent viral illness patient missed her medications. Patient usually receives IVIG infusions for Stiff man syndrome. Patient in the past was on Zanaflex but had lightheadedness with that because of which patient was not continued on this because of continued severe spasm patient was restarted back on this medication will monitor overnight. 12/21/2022 Patient is evaluated today resting in bed. Had an episode of whole body muscle spasm earlier today and required IV valium for this. Patient continues to feel fatigued and sore. Neurology has ordered DEONDRE antibodies which are pending at this time and will consider dose of IVIG or decadron. 12/22/2022 Patient is evaluated today resting that she had an second episode of a whole- body muscle spasm later on yesterday continues to feel sore and does report some left-sided weakness which her left is usually effective more than her right side. Patient has been seen by neurology via [facility] and recommending for infusion of IVIG today and again tomorrow. Patient is also receiving oral decadron. 12/23/2022 Patient recommended to receive a second dose of IVIG infusion today by the beginning neurologist as patient continues to have full body muscle spasms especially with ambulation she has not been able to tolerate much activity level and continues to have pain. She will be reevaluated by pain services tomorrow on Saturday and she does follow with an outpatient we will make some medication changes for better pain control and continue on the Valium and Zanaflex. 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 Hemodynamically she is stable. 12/24/2022 Patient is evaluated today on the medical floor she received a dose of IVIG infusion yesterday. Patient continues to have episodes of muscle spasms starting in her lower extremities and ending up in her upper extremities to her spine she is unable to ambulate for long distances and her legs had given out on her here when up ambulating multiple times. Evaluation completed by physical therapy and they were recommending subacute rehab for her. 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 Patient's late sister was her primary caregiver and she last year and her 18 year old daughter has been providing most of the care for [facility]. She did loose a child at the age of 10 and with her daughter being 10 this has been an increased life stressor for her also. She feels this flare up of her syndrome is usually not lasting this long to come out of. She does follow with pain management and discussed with PA who will re-evaluate the patient we would recommend to step with narcotic pain control and switch the norco to percocet as patient is not getting relief of symptoms. Review of Systems Constitutional: Reports fatigue and muscle stiffness, denied any fever. Cardio vascular: denied any chest pain, palpitations Gastrointestinal: denied any nausea, vomiting, diarrhea Pulmonary: Denied any shortness of breath cough Neurologic denied any new focal deficits All inpatient medications were reviewed and appropriate changes in these medications as dictated in the interval history and assessment and plan. PHYSICAL EXAMINATION: GENERAL: The patient is alert and oriented x3, not in any acute distress. Well developed, well nourished. HEENT: Pupils are round and equally reacting to light. EOMI. No scleral icterus. No conjunctival pallor. Normocephalic, atraumatic. No pharyngeal erythema. No thyromegaly. CARDIOVASCULAR: S1 and S2 present. No murmurs, rubs, or gallops. PULMONARY: Chest is clear to auscultation, no wheezing or crackles. ABDOMEN: Soft, nontender, nondistended, normoactive bowel sounds. No palpable organomegaly. MUSCULOSKELETAL: No joint swelling or deformity. EXTREMITIES: No cyanosis, clubbing, or pedal edema. NEUROLOGICAL: Gross neurological examination did not reveal any new focal deficits. Does have chronic weakness and bilateral lower extremities SKIN: No rashes. Assessment and plan -Severe back/muscle spasms: Secondary to stiff persons syndrome -Asthma without any acute exacerbation -Hypothyroidism TSH is elevated, Levothyroxine is increased -Depression DVT prophylaxis: Lovenox Full Code Plan Patient recommended to be monitor on inpatient status as requiring IV medications for cessation of muscle spasming today and the trigger the exacerbation still unkown. Patient attempting to increase acitivity level and ended up with full body muscle spasm again and had to be basically carried back to bed. Was evaluated by PT OT recommending subacute rehab vs. home with homecare. DEONDRE antibodies are still pending. Patient received IVIG x 2,, neurolog y following closely. Patient is also offered naprosyn and norco changed to zofran, zanaflex to be scheduled for now with valium. Continues on decadron taper and also discussed with pain management who will follow up with patient today. Lactulose given x 2 for constipation. On IV fluids which will be continued normal saline at 50 mls/hr. The impression and plan of care has been dictated by Nathalia Cordoba Nurse Practitioner as directed. Dr. Daquan MD I have performed a history and physical examination and medical decision making of this patient, discussed the same with the dictator, and agree with the dictators assessment and plan as written, documented as a scribe. Based on total visit time, I have performed more than 50% of this visit. Objective - Vital Signs Vital signs: Vital Signs Temp 97.6 F 12/24/22 07:00 Pulse 80 12/24/22 07:00 Resp 16 12/24/22 07:00 BP 150/96 12/24/22 07:00 Pulse Ox 99 12/24/22 07:00 FiO2 Intake & Output 12/23/22 12/24/22 12/24/22 18:59 06:59 18:59 Intake Total 1200 118 Balance 1200 118 Intake: Oral 1200 118 Other: Voiding Method Diaper Diaper Bedside Commode # Voids 4 2 # Bowel Movements 0 - Labs CBC & Chem 7: 12/19/22 16:10 12/24/22 05:37 Labs: Abnormal Lab Results - Last 24 Hours (Table) 12/23/22 12/24/22 Range/Units 14:35 05:37 BUN 6.8 L (9.0-27.0) mg/dL BUN/Creatinine Ratio 7.56 L (12.00-20.00) Ratio Urine Appearance Slightly Cloudy H (Clear) Ur Squamous Epith Cells 15 H (0-4) /hpf Urine Bacteria Many H (None) /hpf Assessment and Plan Time with Patient: Less than 30
[2022-12-24] MEDS: oxyCODONE-APAP 10-325MG 1 EACH TAB PO PRN ×2 (15:12→20:04)
--- NOTE | 2022-12-24 19:44 | P.PN ---
Subjective Progress Note Date: 12/24/22 I'm seeing the patient for the for something this admission. Please refer to Dr. Meyer and Dr. Murillo's note for further details. Patient states she has underlying history of stiff persistent syndrome since December 2021 and been on maintenance IVIG every 4 weeks. She follows up with neurologist over at [facility]. She stated that the in the last 1 week she's been having more body spasm and denies of any fever, any upper respiratory tract infection or loose stools. She has received IVIG 2 doses one on Saturday and 1 on Saturday and she feels her spasming improving compared to her initial presentation. But she continues to have the spasm and she just received Percocet which helped decrease some of the spasm. Objective - Vital Signs Vital signs: Vital Signs Temp 98.4 F 12/24/22 15:00 Pulse 96 12/24/22 15:00 Resp 16 12/24/22 15:00 BP 119/80 12/24/22 15:00 Pulse Ox 96 12/24/22 15:00 FiO2 Intake & Output 12/24/22 12/24/22 12/25/22 06:59 18:59 06:59 Intake Total 468 Balance 468 Intake: Intake, IV Titration 350 Amount Sodium Chloride 0.9% 1, 350 000 ml @ 50 mls/hr IV . Q20H [facility] Rx#:[id number] Oral 118 Other: Voiding Method Diaper Bedside Commode # Voids 2 1 - Exam GENERAL: The patient is lying in bed and is in mild acute distress. NEUROLOGICAL: Higher mental function: The patient is awake, alert, oriented to self, place and time. Patient is following commands. No aphasia and no neglect. Cranial nerves: The pupils are round, equal and reactive to light. Visual cervantes are full to confrontation throughout. Extraocular movement is intact no nystagmus is noted. Facial sensation is normal to touch throughout. The facial strength is normal throughout. Tongue is midline and moved [id number] without any difficulty. No dysarthria is noted. Shoulder shrug is normal bilaterally. Motor: The strength is limited because of her pain. She is able to lift all extremities above gravity without any focality and is able to lift upper is more than lowers since the patient has more pain in the lowers. Normal tone and bulk. Cerebellum: Normal finger to nose bilaterally. Sensation: Sensation is normal to touch throughout. Reflexes (right/left): Biceps 2+; triceps2+; brachioradialis 3+; patellar3+; ankles2+. Plantars are mute bilaterally. - Labs CBC & Chem 7: 12/19/22 16:10 12/24/22 05:37 Labs: Abnormal Lab Results - Last 24 Hours (Table) 12/24/22 Range/Units 05:37 BUN 6.8 L (9.0-27.0) mg/dL BUN/Creatinine Ratio 7.56 L (12.00-20.00) Ratio Assessment and Plan Assessment: 42-year-old female with 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 * Patient developed recent exacerbation with body spasms since last few days to one week prior to presenting to our facility, for unclear cause. No obvious triggers identified. * Asthma * Seizure * Hypothyroidism * Bulimia * Herniated disc * Degenerative disc disease * History of left hip AVN, status post arthroplasty age 38 Plan: Patient has completed 2 days of IVIG. I'll give her another dose of IVIG. Patient is feeling there is some improvement with IVIG. Continue Valium 5 mg every 4 hours as needed She is on Zanaflex 2 mg 3 times a day Primary started her on Percocet and will be receiving a fentanyl patch to help with pain. We'll continue to follow up with the patient. Time with Patient: Less than 30
[2022-12-24] MEDS: PARoxetine 20 MG TAB PO SCH (20:03)
[2022-12-24] MEDS: traZODone HCL 50 MG TAB PO SCH (20:04)
[2022-12-24] MEDS ORDERED: IMMUNE GLOBULIN (GAMMAGARD) 30 GM in EMPTY BAG 1 BAG IV ONE (20:30)
[2022-12-25] MEDS: oxyCODONE-APAP 10-325MG 1 EACH TAB PO PRN ×2 (00:21→08:49)
[2022-12-25] MEDS: HYDROmorphone 0.5 MG/0.5 ML SYRINGE IVP PRN ×5 (02:53→20:01)
[2022-12-25] MEDS: SODIUM CHLORIDE 0.9% 1,000 ML IV SCH ×2 (02:55→20:12)
[2022-12-25] MEDS: LEVOTHYROXINE 75 MCG TAB PO SCH (06:08)
[2022-12-25] MEDS: LEVOTHYROXINE 100 MCG TAB PO SCH (06:08)
[2022-12-25] MEDS: FLUTICASONE 220 MCG INHALER INHALATION SCH ×2 (07:55→18:17)
[2022-12-25] MEDS: NAPROXEN 250 MG TAB PO SCH ×2 (08:48→20:02)
[2022-12-25] MEDS: CHOLECALCIFEROL 125 MCG (5000 IU) TABLET PO SCH (08:48)
[2022-12-25] MEDS: tiZANidine 4 MG TAB PO SCH ×3 (08:48→20:02)
[2022-12-25] MEDS: MONTELUKAST 10 MG TAB PO SCH (08:49)
[2022-12-25] MEDS: dexAMETHasone 2 MG TAB PO SCH (08:49)
[2022-12-25] MEDS: ENOXAPARIN 40 MG/0.4 ML SYRINGE SQ SCH (08:50)
[2022-12-25] MEDS: FOLIC ACID 1 MG TAB PO SCH (08:50)
[2022-12-25] MEDS: LORATADINE 10 MG TAB PO SCH (08:50)
[2022-12-25] MEDS: FAMOTIDINE 20 MG TAB PO SCH ×2 (08:50→20:02)
[2022-12-25] MEDS: METOCLOPRAMIDE 5 MG/ML 2 ML VIAL IVP PRN (12:50)
[2022-12-25 14:35] VITALS: BMI 27.4
--- NOTE | 2022-12-25 14:41 | P.PN ---
Subjective Progress Note Date: 12/25/22 The patient seen at bedside today and that she completed her IVIG the third dose yesterday. She feels that she is having the improvement compared to initial presentation but continues to have pain throughout her body. Denies of any neurological issues. Objective - Vital Signs Vital signs: Vital Signs Temp 98.2 F 12/25/22 08:00 Pulse 90 12/25/22 08:00 Resp 16 12/25/22 08:00 BP 133/89 12/25/22 08:00 Pulse Ox 97 12/25/22 08:00 FiO2 Intake & Output 12/24/22 12/25/22 12/25/22 18:59 06:59 18:59 Intake Total 468 98.0 180 Balance 468 98.0 180 Weight 68.039 kg Intake: Intake, IV Titration 350 98.0 Amount Immune Globulin ( 98.0 Gammagard) 30 gm In Empty Bag 1 bag @ Per Protocol IV .Q0M ONE Rx#: [id number] Sodium Chloride 0.9% 1, 350 000 ml @ 50 mls/hr IV . 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 * Patient developed recent exacerbation with body spasms since last few days to one week prior to presenting to our facility, for unclear cause. No obvious triggers identified. * Asthma * Seizure * Hypothyroidism * Bulimia * Herniated disc * Degenerative disc disease * History of left hip AVN, status post arthroplasty age 38 Plan: Patient has completed 3 days of IVIG and felt there is improvement compared to initial presentation. She would like to hold off any further IVIG and assess pain management. Primary started her on Percocet and will be receiving a fentanyl patch to help with pain. Continue Valium 5 mg every 4 hours as needed She is on Zanaflex 2 mg 3 times a day If she is continues to improve and pain is managed then is clear from neurological perspective. We'll continue to follow up with the patient. Time with Patient: Less than 30
--- NOTE | 2022-12-25 17:09 | P.PN ---
Subjective Progress Note Date: 12/25/22 42-year-old pleasant female with known history of stiff man syndrome, uses walker at home and is on Flexeril and Valium for spasms came in with severe back spasms lasting for 2 hours. Patient denied any recent viral illness patient missed her medications. Patient usually receives IVIG infusions for Stiff man syndrome. Patient in the past was on Zanaflex but had lightheadedness with that because of which patient was not continued on this because of continued severe spasm patient was restarted back on this medication will monitor overnight. 12/21/2022 Patient is evaluated today resting in bed. Had an episode of whole body muscle spasm earlier today and required IV valium for this. Patient continues to feel fatigued and sore. Neurology has ordered DEONDRE antibodies which are pending at this time and will consider dose of IVIG or decadron. 12/22/2022 Patient is evaluated today resting that she had an second episode of a whole- body muscle spasm later on yesterday continues to feel sore and does report some left-sided weakness which her left is usually effective more than her right side. Patient has been seen by neurology via Xanodyne and recommending for infusion of IVIG today and again tomorrow. Patient is also receiving oral decadron. 12/23/2022 Patient recommended to receive a second dose of IVIG infusion today by the beginning neurologist as patient continues to have full body muscle spasms especially with ambulation she has not been able to tolerate much activity level and continues to have pain. She will be reevaluated by pain services tomorrow on Saturday and she does follow with an outpatient we will make some medication changes for better pain control and continue on the Valium and Zanaflex. 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 Hemodynamically she is stable. 12/24/2022 Patient is evaluated today on the medical floor she received a dose of IVIG infusion yesterday. Patient continues to have episodes of muscle spasms starting in her lower extremities and ending up in her upper extremities to her spine she is unable to ambulate for long distances and her legs had given out on her here when up ambulating multiple times. Evaluation completed by physical therapy and they were recommending subacute rehab for her. 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 Patient's late sister was her primary caregiver and she last year and her 18 year old daughter has been providing most of the care for formerly [facility]. She did loose a child at the age of 10 and with her daughter being 10 this has been an increased life stressor for her also. She feels this flare up of her syndrome is usually not lasting this long to come out of. She does follow with pain management and discussed with PA who will re-evaluate the patient we would recommend to step with narcotic pain control and switch the norco to percocet as patient is not getting relief of symptoms. 12/25/2022 Patient is evaluated today continues to have episodes of intense spasming however overall feels she is improving. She received another dose of IVIG as recommended by neurology. This makes 3 doses total as admission. She continues on oral Decadron taper and tomorrow will begin a 1 mg dose for 2 days. Additionally she continues on Naprosyn as well as Percocet 10mg every 4hrs. Patient still does not feel that she has adequate pain control we did request that pain management services reevaluate the patient this consultation is still pending she does follow them closely outpatient. Patient has been started on a low-dose fentanyl patch. She is on a bowel regimen and importance of continuing on this on discharge due to the increase in narotic pain management. DEONDRE antibodies were elevated at 22. Review of Systems Constitutional: Reports fatigue and muscle stiffness, denied any fever. Cardio vascular: denied any chest pain, palpitations Gastrointestinal: denied any nausea, vomiting, diarrhea Pulmonary: Denied any shortness of breath cough Neurologic denied any new focal deficits All inpatient medications were reviewed and appropriate changes in these medications as dictated in the interval history and assessment and plan. PHYSICAL EXAMINATION: GENERAL: The patient is alert and oriented x3, not in any acute distress. Well developed, well nourished. HEENT: Pupils are round and equally reacting to light. EOMI. No scleral icterus. No conjunctival pallor. Normocephalic, atraumatic. No pharyngeal erythema. No thyromegaly. CARDIOVASCULAR: S1 and S2 present. No murmurs, rubs, or gallops. PULMONARY: Chest is clear to auscultation, no wheezing or crackles. ABDOMEN: Soft, nontender, nondistended, normoactive bowel sounds. No palpable organomegaly. MUSCULOSKELETAL: No joint swelling or deformity. EXTREMITIES: No cyanosis, clubbing, or pedal edema. NEUROLOGICAL: Gross neurological examination did not reveal any new focal deficits. Does have chronic weakness and bilateral lower extremities SKIN: No rashes. Assessment and plan -Severe back/muscle spasms: Secondary to stiff persons syndrome with continued frequent episodes of muscle spasm requiring IV valium and IV pain management -Asthma without any acute exacerbation -Hypothyroidism TSH is elevated, Levothyroxine is increased -Depression DVT prophylaxis: Lovenox Full Code Plan Patient recommended to be monitor on inpatient status as requiring IV medications for cessation of muscle spasming today and the trigger the exacerbation still unkown. Patient attempting to increase acitivity level and ended up with full body muscle spasm again and had to be basically carried back to bed. Was evaluated by PT OT recommending subacute rehab vs. home with homecare. DEONDRE antibodies are elevated patient has received IVIG treatments x3. Neurology following closely. Patient is also offered naprosyn and norco changed to percocet, zanaflex to be scheduled for now with valium prn. Continues on decadron taper. Fentanyl patch has been added. Reached out to pain management about followup inpatient. Pending at this time. Possible D/C in the next 24 hours. The impression and plan of care has been dictated by Nathalia Cordoba Nurse Practitioner as directed. Dr. Daquan MD I have performed a history and physical examination and medical decision making of this patient, discussed the same with the dictator, and agree with the dictators assessment and plan as written, documented as a scribe. Based on total visit time, I have performed more than 50% of this visit. Objective - Vital Signs Vital signs: Vital Signs Temp 98.2 F 12/25/22 08:00 Pulse 90 12/25/22 08:00 Resp 16 12/25/22 08:00 BP 133/89 12/25/22 08:00 Pulse Ox 97 12/25/22 08:00 FiO2 Intake & Output 12/24/22 12/25/22 12/25/22 18:59 06:59 18:59 Intake Total 468 98.0 180 Balance 468 98.0 180 Intake: Intake, IV Titration 350 98.0 Amount Immune Globulin ( 98.0 Gammagard) 30 gm In Empty Bag 1 bag @ Per Protocol IV .Q0M [facility] Rx#: [id number] Sodium Chloride 0.9% 1, 350 000 ml @ 50 mls/hr IV . Q20H [facility] Rx#:[id number] Oral 118 180 Other: Voiding Method Bedside Commode Bedside Commode # Voids 1 1 - Labs CBC & Chem 7: 12/19/22 16:10 12/24/22 05:37 Assessment and Plan Time with Patient: Greater than 30
[2022-12-25] MEDS: PARoxetine 20 MG TAB PO SCH (20:02)
[2022-12-25] MEDS: traZODone HCL 50 MG TAB PO SCH (20:02)
[2022-12-25] MEDS: diazePAM 2 MG TAB PO PRN (20:10)
[2022-12-26 04:34] VITALS: RESP 16
[2022-12-26] MEDS: LEVOTHYROXINE 75 MCG TAB PO SCH (06:00)
[2022-12-26] MEDS: LEVOTHYROXINE 100 MCG TAB PO SCH (06:00)
[2022-12-26] MEDS: HYDROmorphone 0.5 MG/0.5 ML SYRINGE IVP PRN ×2 (06:02→09:38)
[2022-12-26] MEDS: NAPROXEN 250 MG TAB PO SCH (07:59)
[2022-12-26] MEDS: LORATADINE 10 MG TAB PO SCH (08:00)
[2022-12-26] MEDS: CHOLECALCIFEROL 125 MCG (5000 IU) TABLET PO SCH (08:00)
[2022-12-26] MEDS: FOLIC ACID 1 MG TAB PO SCH (08:00)
[2022-12-26] MEDS: MONTELUKAST 10 MG TAB PO SCH (08:00)
[2022-12-26] MEDS: FAMOTIDINE 20 MG TAB PO SCH (08:01)
[2022-12-26] MEDS: tiZANidine 4 MG TAB PO SCH (08:01)
[2022-12-26] MEDS: ENOXAPARIN 40 MG/0.4 ML SYRINGE SQ SCH (08:01)
[2022-12-26 08:48] VITALS: BP 136/91; PULSE 90; TEMP 98.5
[2022-12-26] MEDS: FLUTICASONE 220 MCG INHALER INHALATION SCH (09:13)
[2022-12-26] MEDS: oxyCODONE-APAP 10-325MG 1 EACH TAB PO PRN (11:23)
[2022-12-26] MEDS: diazePAM 2 MG TAB PO PRN (11:24)
--- NOTE | 2022-12-27 16:58 | P.DS ---
Providers Date of admission: 12/19/22 18:45 Attending physician: Kelsey Melvin Consults: 12/20/22 13:31 Consult Physician Routine Consulting Provider: Nunu Meyer Consult Reason/Comments: stiff person syndrome Do you want consulting provider notified?: Yes Primary care physician: Slade Gonzalez Hospital Course: Final Diagnosis -Severe back/muscle spasms: Secondary to stiff persons syndrome -Asthma without any acute exacerbation -Hypothyroidism TSH is elevated, Levothyroxine is increased -Depression Full code Discharge disposition Patient stable for discharge home. She was given a wheelchair for improved ambulation and functionality. DEONDRE antibodies are elevated patient has received IVIG treatments x3. Neurology following closely. I'm recommending to follow closely the patient's own neurologist on discharge within the week and this was communicated to the patient. Patient is also offered naprosyn and norco changed to percocet, fentanyl patch added for additional pain management. Patient will continue on a short Decadron taper. Patient to follow-up with pain management services on discharge has an appointment scheduled for January 01 and will keep this. Levothyroxine was increased this admission. She is also recommended to follow-up with Dr. Gonzalez 1-2 days. Hospital course This is a 42-year-old pleasant female with known history of stiff man syndrome, uses walker at home and is on Flexeril and Valium for spasms came in with severe back spasms lasting for 2 hours. Patient denied any recent viral illness and denies patient missed her medications. Patient usually receives IVIG infusions for Stiff man syndrome. Reports that she last received IVIG infusion per usual about 2 weeks ago. Is admitted to the hospital medicine with a consult placed to neurology. She had DEONDRE antibodies ordered which were found to be 22. She was started on a course of oral Decadron with taper and also received an additional 3 doses of IVIG. Patient continues to have severe episodes of whole body muscle spasm requiring IV Valium and IV pain medication. She feels that her pain is not being adequately controlled and was recommended to see pain management services inpatient which they did see patient she was continued on her same oral Hugo. Also having difficulty with ambulation at one point did require to be brought back to the bed and a wheelchair. Pain management was increased to Percocet as well as Tylenol patch and patient reports that overall she is not feeling better and reports less pain and muscle stiffness and decreased in severity of the muscle spasms. 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 Her sister last year, her family lives in [place], we have discussed with the patient the possibility of her moving to be closer with her family. Family issues with constipation and did have a bowel movement and was sent on lactulose for discharge home. Her urinalysis was negative her TSH was 8.130 and free T4 1.57, vitamin B12 was 460, folate 6.90, kidney function is stable, electrolytes are within normal limits and her blood panel is completely unremarkable. The patient is improving she is denying any chest pain denies shortness of breath. Her lungs are clear S1-S2 auscultated abdomen is soft and nontender focal neurological exam was negative. She was discharged home with the above-mentioned recommendations. Please see medication reconciliation for list of current medication. Thank you for allowing us to particiate in the care of this patient. The impression and plan of care has been dictated by Nathalia Cordoba, Nurse Practitioner as directed. Dr. Daquan MD I have performed a history and physical examination and medical decision making of this patient, discussed the same with the dictator, and agree with the dictators assessment and plan as written, documented as a scribe. Based on total visit time, I have performed more than 50% of this visit. Patient Condition at Discharge: Stable Plan - Discharge Summary New Discharge Prescriptions: New Folic Acid 0.5 mg PO DAILY #30 tab Mag Hydrox/Al Hydrox/Simeth [Maalox] 30 ml PO Q4HR PRN ml PRN Reason: Gi Upset Naproxen [Naprosyn] 500 mg PO BID 5 Days #10 tab Levothyroxine Sodium [Synthroid] 100 mcg PO DAILY@0630 #30 tab fentaNYL 12MCG/HR PATCH [Duragesic 12MCG/HR] 1 patch TRANSDERM Q72H #2 patch dexAMETHasone ORAL [Hexadrol] 1 mg PO DAILY #2 tab Famotidine [Pepcid] 20 mg PO BID #60 tab Levothyroxine Sodium [Synthroid] 75 mcg PO DAILY@0630 #30 tab Lactulose [Cephulac] 20 gm PO DAILY PRN #200 ml PRN Reason: Constipation oxyCODONE-APAP 10-325MG [Percocet 10-325 mg] 1 each PO Q6HR PRN #20 tab PRN Reason: Pain Metoclopramide [Reglan] 10 mg PO Q8H #20 tab Continue Omalizumab [Xolair] 300 mg SQ Q30D Medroxyprogesterone Acetate [Depo-Provera] 150 mg IM Q84D PARoxetine [Paxil] 20 mg PO HS Loratadine [Claritin] 10 mg PO DAILY SUMAtriptan succinate [Imitrex] 100 mg PO BID PRN PRN Reason: Migraine Headache Fluticasone Propionate [Flovent Hfa 220 mcg] 2 puff INHALATION RT-BID Botox Neck Injection 400 mg SQ Q70D EPINEPHrine (Auto Inject) [Epipen] 0.3 mg IM ONCE PRN PRN Reason: Anaphylaxis Cholecalciferol (Vitamin D3) [Vitamin D3 (125 MCG = 5,000 IU)] 125 mcg PO DAILY Montelukast [Singulair] 10 mg PO DAILY Albuterol Sulfate [Ventolin HFA] 2 puff INHALATION RT-Q6H PRN PRN Reason: Shortness Of Breath diazePAM [Valium] 2 mg PO Q12H PRN PRN Reason: Anxiety Panzyga 10% Infusion 1 dose IV Q28D Albuterol Nebulized [Ventolin Nebulized] 2.5 mg INHALATION RT-Q6H PRN PRN Reason: Shortness Of Breath Cyclobenzaprine [Flexeril] 5 mg PO QID traZODone HCL [Desyrel] 100 mg PO HS Discontinued Levothyroxine Sodium [Synthroid] 150 mcg PO DAILY HYDROcodone/APAP 7.5-325MG [Hugo 7.5-325] 1 tab PO Q6H PRN 30 Days #120 tab PRN Reason: Pain Discharge Medication List Medroxyprogesterone Acetate [Depo-Provera] 150 mg IM Q84D 07/10/18 [History] Omalizumab [Xolair] 300 mg SQ Q30D 07/10/18 [History] PARoxetine [Paxil] 20 mg PO HS 12/18/19 [History] Fluticasone Propionate [Flovent Hfa 220 mcg] 2 puff INHALATION RT-BID 06/13/20 [History] Loratadine [Claritin] 10 mg PO DAILY 06/13/20 [History] SUMAtriptan succinate [Imitrex] 100 mg PO BID PRN 06/13/20 [History] Botox Neck Injection 400 mg SQ Q70D 08/30/20 [History] Albuterol Sulfate [Ventolin HFA] 2 puff INHALATION RT-Q6H PRN 09/30/20 [History] Cholecalciferol (Vitamin D3) [Vitamin D3 (125 MCG = 5,000 IU)] 125 mcg PO DAILY 03/01/22 [History] EPINEPHrine (Auto Inject) [Epipen] 0.3 mg IM ONCE PRN 03/01/22 [History] Panzyga 10% Infusion 1 dose IV Q28D 03/01/22 [History] diazePAM [Valium] 2 mg PO Q12H PRN 03/01/22 [History] Albuterol Nebulized [Ventolin Nebulized] 2.5 mg INHALATION RT-Q6H PRN 12/19/22 [History] Cyclobenzaprine [Flexeril] 5 mg PO QID 12/19/22 [History] Montelukast [Singulair] 10 mg PO DAILY 12/19/22 [History] traZODone HCL [Desyrel] 100 mg PO HS 12/19/22 [History] Famotidine [Pepcid] 20 mg PO BID #60 tab 12/23/22 [Rx] Folic Acid 0.5 mg PO DAILY #30 tab 12/23/22 [Rx] Levothyroxine Sodium [Synthroid] 75 mcg PO DAILY@0630 #30 tab 12/23/22 [Rx] Levothyroxine Sodium [Synthroid] 100 mcg PO DAILY@0630 #30 tab 12/23/22 [Rx] Mag Hydrox/Al Hydrox/Simeth [Maalox] 30 ml PO Q4HR PRN ml 12/23/22 [Rx] Naproxen [Naprosyn] 500 mg PO BID 5 Days #10 tab 12/23/22 [Rx] Lactulose [Cephulac] 20 gm PO DAILY PRN #200 ml 12/26/22 [Rx] Metoclopramide [Reglan] 10 mg PO Q8H #20 tab 12/26/22 [Rx] dexAMETHasone ORAL [Hexadrol] 1 mg PO DAILY #2 tab 12/26/22 [Rx] fentaNYL 12MCG/HR PATCH [Duragesic 12MCG/HR] 1 patch TRANSDERM Q72H #2 patch 12/26/22 [Rx] oxyCODONE-APAP 10-325MG [Percocet 10-325 mg] 1 each PO Q6HR PRN #20 tab 12/26/22 [Rx] Follow up Appointment(s)/Referral(s): Slade Gonzalez MD [Primary Care Provider] - 1-2 Days Fabien Kelly MD [STAFF PHYSICIAN] - 1 Week Patient Instructions/Handouts: Gluten-Free Diet (DC) Activity/Diet/Wound Care/Special Instructions: Follow up with your known neurologist on discharge within 1 week Recommend to see PCP in 1 to 2 days Follow up with pain management on discharge Continue on bowel regimen to avoid constipation Discharge/Stand Alone Forms: Who Do I Call?, Community Resources, Help In The Home, Outpatient Counseling, Area PCPs Discharge Disposition: HOME WITH HOME HEALTH SERVICES
== END 2022-12-26 13:48 | disposition home health service (06) | DRG 92 ==
LOC: EC 13:20 → OBSVTOIN 18:45 → 6NMEDSUR 18:45
PROVIDERS: ADMIT Hospitalist; ATTEND Hospitalist
DX: G25.82 Stiff-man syndrome (principal); F50.2 Bulimia nervosa; R56.9 Unspecified convulsions; G31.89 Other specified degenerative diseases of nervous system; J45.909 Unspecified asthma, uncomplicated; E03.9 Hypothyroidism, unspecified; F32.A Depression, unspecified; E06.3 Autoimmune thyroiditis; G24.3 Spasmodic torticollis; K59.00 Constipation, unspecified; K21.9 Gastro-esophageal reflux disease without esophagitis; I73.00 Raynaud's syndrome without gangrene; F41.9 Anxiety disorder, unspecified; R29.6 Repeated falls; Z96.642 Presence of left artificial hip joint; Z98.84 Bariatric surgery status; Z79.51 Long term (current) use of inhaled steroids; Z79.890 Hormone replacement therapy; Z86.14 Personal history of Methicillin resistant Staphylococcus aureus infection; Z85.41 Personal history of malignant neoplasm of cervix uteri; Z86.16 Personal history of COVID-19; Z87.11 Personal history of peptic ulcer disease; Z63.8 Other specified problems related to primary support group; Z87.39 Personal history of other diseases of the musculoskeletal system and connective tissue; Z68.27 Body mass index [BMI] 27.0-27.9, adult; Z79.899 Other long term (current) drug therapy; Z91.81 History of falling; Z80.0 Family history of malignant neoplasm of digestive organs; Z80.8 Family history of malignant neoplasm of other organs or systems
CPT/HCPCS: 36415; 80048; 80053; 81001; 82550; 82607; 82746; 83519; 83735; 84439; 84443; 85025; 96361; 96374; 96375; 99285

== ENCOUNTER → 2023-01-02 | Outpatient (CLI) | payer MEDICARE ==
[2023-01-02 09:30] VITALS: BP 119/83; PULSE 90; RESP 15; TEMP 98.4
--- NOTE | 2023-01-02 13:10 | P.PAINPG ---
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 Pt states pain and stiffness level is at 7 /10 in intensity and accompanied w muscle spasms in the arms, chest and legs, constant, tight, sharp in character without radiating pain. Pt states her recent episode was 2+ hrs of severe spasms at home w her children trying to relieve her stiffness so that she can take medications. Episodes are triggered by viral infection, missing doses of medications, changes in room temperature, etch. Pain is provoked by any movement. Pain is alleviated by medications, heat, ice, laying supine, monthly IgG infusions from her established neurologist, laying on her side and rest. Interventional procedures include Medications include [place] 7.5/325mg, Flexeril REVIEW OF ORGAN SYSTEMS: CONSTITUTIONAL: No fevers or chills. No recent weight loss. NEUROLOGICAL: + numbness and tingling along the distal extremities. No seizure disorders or headaches. MUSCULOSKELETAL: + pain PSYCHIATRIC: Denies current depression or suicidal thoughts. Physical Examinations : Constitutional : Cooperative , not in acute distress . Neurologic : Cranial nerve II to XII intact. No focal neurological deficits. Psychiatric : alert & oriented x 3. Matching mood & appropriate affect. Judgment & insight intact. Musculoskeletal : Cervical Spine Motor strength in the deltoid and biceps: Normal right side. Normal Left side Motor strength biceps and the wrist extensors: Normal right side . Normal left side Motor strength in the triceps muscle: Normal right side. Normal left side Deep tendon reflexes: Normal at the biceps. Normal at Brachioradialis. Normal at triceps Vertebral body tenderness to deep palpation over Cervical facet loading test: positive bilaterally Spurling test: positive bilaterally Neck distraction test: positive bilaterally Valencia sign: positive bilaterally Lumbar spine Motor strength lower extremities ,thigh and legs 5/5 Right side , 5/5 Left side Deep tendon reflexes : Normal Knee Jerk. Normal Ankle Jerk Vertebral body tenderness over Lumbar facet Loading Test: positive Right / positive Left Range of motion of the lumbar spine Flexion 30 degrees, extension 10 degrees Straight Leg Raise test: Left/ Right positive at degree Mary test: positive right / positive left. Severe tenderness over the Sacroiliac joint on the Right / Left sides Gaenslen test: positive bilaterally Seated flexion test: positive bilaterally. 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 Use, side effects, adverse reactions and safe storage discussed. Narcotic/ opiate agreement signed today 01/02/23. Discussed UDS results as pt was not under contract at the time medications were prescribed by IM. Urged compliance with protocols. Will recheck UDS at subsequent visit. All questions answered. I have spent greater than 30 minutes on patient care today. Dr Kelly was available by phone for the evaluation of this patient. The time was used to review the medical records including relevant urine studies and Prescription history (MAPs), review of the available imaging, evaluation and examination of the patient, coordination of care with the medical staff and if applicable referring physicians, as well as creation of the medical record PQRS Narrative: Smoking Status Never smoker Narcotic Agreement Date Signed 02/05/22 Hx Alcohol Use (MH) No Home Medications: Ambulatory Orders Medroxyprogesterone Acetate [Depo-Provera] 150 mg IM Q84D 07/10/18 Omalizumab [Xolair] 300 mg SQ Q30D 07/10/18 PARoxetine [Paxil] 20 mg PO HS 12/18/19 Fluticasone Propionate [Flovent Hfa 220 mcg] 2 puff INHALATION RT-BID 06/13/20 Loratadine [Claritin] 10 mg PO DAILY 06/13/20 SUMAtriptan succinate [Imitrex] 100 mg PO BID PRN 06/13/20 Botox Neck Injection 400 mg SQ Q70D 08/30/20 Albuterol Sulfate [Ventolin HFA] 2 puff INHALATION RT-Q6H PRN 09/30/20 Cholecalciferol (Vitamin D3) [Vitamin D3 (125 MCG = 5,000 IU)] 125 mcg PO DAILY 03/01/22 EPINEPHrine (Auto Inject) [Epipen] 0.3 mg IM ONCE PRN 03/01/22 Panzyga 10% Infusion 1 dose IV Q28D 03/01/22 diazePAM [Valium] 2 mg PO Q12H PRN 03/01/22 Albuterol Nebulized [Ventolin Nebulized] 2.5 mg INHALATION RT-Q6H PRN 12/19/22 Cyclobenzaprine [Flexeril] 5 mg PO QID 12/19/22 Montelukast [Singulair] 10 mg PO DAILY 12/19/22 traZODone HCL [Desyrel] 100 mg PO HS 12/19/22 Famotidine [Pepcid] 20 mg PO BID #60 tab 12/23/22 Folic Acid 0.5 mg PO DAILY #30 tab 12/23/22 Levothyroxine Sodium [Synthroid] 75 mcg PO DAILY@0630 #30 tab 12/23/22 Levothyroxine Sodium [Synthroid] 100 mcg PO DAILY@0630 #30 tab 12/23/22 Mag Hydrox/Al Hydrox/Simeth [Maalox] 30 ml PO Q4HR PRN ml 12/23/22 Naproxen [Naprosyn] 500 mg PO BID 5 Days #10 tab 12/23/22 Lactulose [Cephulac] 20 gm PO DAILY PRN #200 ml 12/26/22 Metoclopramide [Reglan] 10 mg PO Q8H #20 tab 12/26/22 dexAMETHasone ORAL [Hexadrol] 1 mg PO DAILY #2 tab 12/26/22 fentaNYL 12MCG/HR PATCH [Duragesic 12MCG/HR] 1 patch TRANSDERM Q72H 30 Days #10 patch 01/02/23 fentaNYL 12MCG/HR PATCH [Duragesic 12MCG/HR] 1 patch TRANSDERM Q72H 30 Days #10 patch 01/02/23 oxyCODONE-APAP 10-325MG [Percocet 10-325 mg] 1 each PO TID PRN 30 Days #90 tab 01/02/23 oxyCODONE-APAP 10-325MG [Percocet 10-325 mg] 1 tab PO TID PRN 30 Days #90 tab 01/02/23 Controlled Substance Measures - Controlled Substance Measures Is patient prescribed a controlled substance at discharge?: Yes When asked, does pt state using other controlled substances?: Yes If prescribed controlled substance>3 days was MAPS reviewed?: Yes
== END ==
LOC: PNWHC3 08:08
PROVIDERS: ATTEND Specialist
DX: G25.82 Stiff-man syndrome (principal); R52 Pain, unspecified
CPT/HCPCS: 99211

== ENCOUNTER 2023-01-10 12:53 | Emergency (ER) | payer MEDICARE ==
[2023-01-10] MEDS ORDERED: HYDROmorphone 1 MG/ML 1 ML SYRINGE IVP STA (13:16)
[2023-01-10 13:49] LABS: Basophils % (A) 0 %; Eosinophils % (A) 1 %; HGB 12.5 gm/dL (11.4-16.0); Lymphocytes # (A) 1.5 k/uL (1.0-4.8); Lymphocytes % (A) 30 %; MCH 33.2 pg (25.0-35.0); MCHC 35.7 g/dL (31.0-37.0); Mean Platelet Volume 7.6; Monocytes # (A) 0.4 k/uL (0-1.0); Monocytes % (A) 7 %; Neutrophils % (A) 60 %; Platelet Count 167 k/uL (150-450); RBC 3.76 m/uL (3.80-5.40); RDW 12.3 % (11.5-15.5)
[2023-01-10 14:13] LABS: ALT 17 U/L (4-34); AST 27 U/L (14-36); African American GFR (CKD) 84 (>60 ml/min/1.73 sqM); Albumin 3.9 g/dL (3.5-5.0); Alkaline Phosphatase 59 U/L (38-126); Anion Gap 7 mmol/L; Blood Urea Nitrogen 15 mg/dL (7-17); Calcium 8.9 mg/dL (8.4-10.2); Carbon Dioxide 22 mmol/L (22-30); Chloride 109 mmol/L (98-107); Creatine Kinase 146 U/L (30-135); Glucose 84 mg/dL (74-99); Non-African American GFR(CKD) 73 (>60 ml/min/1.73 sqM); Potassium 4.1 mmol/L (3.5-5.1); Sodium 138 mmol/L (137-145); Total Bilirubin 0.3 mg/dL (0.2-1.3); Total Protein 7.5 g/dL (6.3-8.2)
[2023-01-10 15:26] VITALS: RESP 18
[2023-01-10] MEDS ORDERED: HYDROmorphone 0.5 MG/0.5 ML SYRINGE IVP STA (16:01)
--- NOTE | 2023-01-10 16:21 | ED ---
General Adult HPI - General Chief complaint: Recheck/Abnormal Lab/Rx Stated complaint: Muscle Spams Time Seen by Provider: 01/10/23 13:14 Source: patient, EMS Mode of arrival: EMS Limitations: no limitations - History of Present Illness Initial comments: Patient is a 42-year-old female who presents to the emergency department for muscle spasms. Patient has stiff man syndrome she follows with Dr. De Los Santos at [facility]. Patient has intense muscle spasms chronically her pain is easily controlled with Valium, fentanyl patch, Percocet, Flexeril, Botox injections. Patient reports increased pain that started a couple hours ago. Patient shouting and contracted during evaluation due to pain. She denies injury. Denies fever, chills, recent illness. Denies nausea or vomiting. Denies chest pain and shortness of breath. Patient was recently to our hospital admitted late November for similar presentation. States she has contacted [place] times however they have not gotten back with her for follow-up appointment. - Related Data Home Medications Medication Instructions Recorded Confirmed Medroxyprogesterone Acetate 150 mg IM Q84D 07/10/18 01/02/23 [Depo-Provera] Omalizumab [Xolair] 300 mg SQ Q30D 07/10/18 01/02/23 PARoxetine [Paxil] 20 mg PO HS 12/18/19 01/02/23 Fluticasone Propionate [Flovent 2 puff INHALATION RT-BID 06/13/20 01/02/23 Hfa 220 mcg] Loratadine [Claritin] 10 mg PO DAILY 06/13/20 01/02/23 SUMAtriptan succinate [Imitrex] 100 mg PO BID PRN 06/13/20 01/02/23 Botox Neck Injection 400 mg SQ Q70D 08/30/20 01/02/23 Albuterol Sulfate [Ventolin HFA] 2 puff INHALATION RT-Q6H PRN 09/30/20 01/02/23 Cholecalciferol (Vitamin D3) 125 mcg PO DAILY 03/01/22 01/02/23 [Vitamin D3 (125 MCG = 5,000 IU)] EPINEPHrine (Auto Inject) [Epipen] 0.3 mg IM ONCE PRN 03/01/22 01/02/23 Panzyga 10% Infusion 1 dose IV Q28D 03/01/22 01/02/23 diazePAM [Valium] 5 mg PO Q12H PRN 03/01/22 01/02/23 Albuterol Nebulized [Ventolin 2.5 mg INHALATION RT-Q6H PRN 12/19/22 01/02/23 Nebulized] Cyclobenzaprine [Flexeril] 5 mg PO QID 12/19/22 01/02/23 Montelukast [Singulair] 10 mg PO DAILY 12/19/22 01/02/23 traZODone HCL [Desyrel] 100 mg PO HS 12/19/22 01/02/23 Previous Rx's Medication Instructions Recorded Famotidine [Pepcid] 20 mg PO BID #60 tab 12/23/22 Folic Acid 0.5 mg PO DAILY #30 tab 12/23/22 Levothyroxine Sodium [Synthroid] 75 mcg PO DAILY@0630 #30 tab 12/23/22 Levothyroxine Sodium [Synthroid] 100 mcg PO DAILY@0630 #30 tab 12/23/22 Naproxen [Naprosyn] 500 mg PO BID 5 Days #10 tab 12/23/22 Lactulose [Cephulac] 20 gm PO DAILY PRN #200 ml 12/26/22 Metoclopramide [Reglan] 10 mg PO Q8H #20 tab 12/26/22 fentaNYL 12MCG/HR PATCH [Duragesic 1 patch TRANSDERM Q72H 30 Days #10 01/02/23 12MCG/HR] patch fentaNYL 12MCG/HR PATCH [Duragesic 1 patch TRANSDERM Q72H 30 Days #10 01/02/23 12MCG/HR] patch oxyCODONE-APAP 10-325MG [Percocet 1 each PO TID PRN 30 Days #90 tab 01/02/23 10-325 mg] oxyCODONE-APAP 10-325MG [Percocet 1 tab PO TID PRN 30 Days #90 tab 01/02/23 10-325 mg] Allergies Allergy/AdvReac Type Severity Reaction Status Date / Time No Known Allergies Allergy Verified 01/10/23 13:06 Review of Systems ROS Statement: Those systems with pertinent positive or pertinent negative responses have been documented in the HPI. ROS Other: All systems not noted in ROS Statement are negative. Past Medical History Past Medical History: Asthma, Pneumonia Additional Past Medical History / Comment(s): TACHYCARDIA, peptic ulcers, anemia."HAS BEEN ON VENTILATOR IN PAST D/T SEVERE ASTHMA ATTACK," BULEMIA-STATES GETTING BETTER, CONSTIPATION. HERNIATED DISC, cervical cancer. 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 recent antibiotoc for infection in arm-now resolved per pt, COVID 12/30/20. 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 Surgery on her cervix for cancer, rt foot surgery(Fx), cysto/lithotripsy , left hip replacement 12/2018, lumbar puncture, cervical biopsy in August @[facility], bone tumor removal Past Anesthesia/Blood Transfusion Reactions: Postoperative Nausea & Vomiting (PONV) Past Psychological History: Anxiety, Depression Smoking Status: Never smoker Past Alcohol Use History: None Reported Past Drug Use History: None Reported - Past Family History Mother Family Medical History: Pneumonia Additional Family Medical History / Comment(s): Mother of pneumonia. Patient's son of brain cancer, last mother and father both liver cancer Son(s) Family Medical History: Cancer Additional Family Medical History / Comment(s): Son of brain cancer. Father Family Medical History: Cancer Additional Family Medical History / Comment(s): Liver Cancer. General Exam Limitations: no limitations General appearance: alert, in distress (Pain) Eye exam: Present: normal appearance, PERRL, EOMI. Absent: scleral icterus, conjunctival injection, periorbital swelling Respiratory exam: Present: normal lung sounds bilaterally. Absent: respiratory distress, wheezes, rales, rhonchi, stridor Cardiovascular Exam: Present: normal rhythm, tachycardia, normal heart sounds. Absent: regular rate, systolic murmur, diastolic murmur, rubs, gallop, clicks Extremities exam: Present: normal inspection, full ROM, normal capillary refill Neurological exam: Present: alert Psychiatric exam: Present: normal affect, anxious Skin exam: Present: warm, dry, intact, normal color. Absent: rash Course Vital Signs 01/10/23 01/10/23 01/10/23 13:03 13:59 15:25 Temperature 97.7 F Pulse Rate 116 H 93 104 H Respiratory 22 18 Rate Blood Pressure 107/79 131/86 O2 Sat by Pulse 97 95 97 Oximetry 01/10/23 16:29 Temperature 97.3 F L Pulse Rate 102 H Respiratory 18 Rate Blood Pressure 126/78 O2 Sat by Pulse 97 Oximetry Medical Decision Making - Medical Decision Making Was pt. sent in by a medical professional or institution (, JUWAN, CHAINER, urgent care, hospital, or half-way...) When possible be specific @ -No Did you speak to anyone other than the patient for history (EMS, parent, family, police, friend...)? What history was obtained from this source @ -No Did you review nursing and triage notes (agree or disagree)? Why? @ -I reviewed and agree with nursing and triage notes Were old charts reviewed (outside hosp., previous admission, EMS record, old EKG, old radiological studies, urgent care reports/EKG's, half-way records)? Report findings Reviewed neurology and admission note from last admission. DEONDRE was high she was then given IVIG and steroid taper Differential Diagnosis (chest pain, altered mental status, abdominal pain women, abdominal pain men, vaginal bleeding, weakness, fever, dyspnea, syncope, headache, dizziness, GI bleed, back pain, seizure, CVA, palpatations, mental health)? @ -not applicable EKG interpreted by me (3pts min.). @ -As above X-rays interpreted by me (1pt min.). @ -None done CT interpreted by me (1pt min.). @ -None done U/S interpreted by me (1pt. min.). @ -None done What testing was considered but not performed or refused? (CT, X-rays, U/S, labs)? Why? @ -None What meds were considered but not given or refused? Why? @ -None Did you discuss the management of the patient with other professionals (professionals i.e. , JUWAN, CHAINER, lab, RT, psych nurse, social science manager, naturalist, teacher, event security officer, showcase trimmer)? Give summary @ -Dr. Mcbride. See hospital course. Was smoking cessation discussed for >3mins.? @ -No Was critical care preformed (if so, how long)? @ -No Were there social determinants of health that impacted care today? How? (Homelessness, low income, unemployed, alcoholism, drug addiction, transportation, low edu. Level, literacy, decrease access to med. care, fdc, rehab)? @ -No Was there de-escalation of care discussed even if they declined (Discuss DNR or withdrawal of care, Hospice)? DNR status @ -No What co-morbidities impacted this encounter? (DM, HTN, Smoking, COPD, CAD, Cancer, CVA, ARF, Chemo, Hep., AIDS, mental health diagnosis, sleep apnea, morbid obesity)? @ -None Was patient admitted / discharged? Hospital course, mention meds given and route, prescriptions, significant lab abnormalities, going to OR and other pertinent info. @ -Patient presenting with severe muscle spasm secondary to stiffness man syndrome. Patient states the Valium usually works for her. She was given Valium and Dilaudid with some relief. I did speak to Dr. Mcbride who treated this patient during recent admission in late November. He recommended speaking with patient's neurologist. Unfortunately Dr. De Los Santos is on vacation. I did speak with her nurse. Patient was in the office on 12/18. According to nurse treatment plan is IVIG monthly, physical therapy, botox injections, vallium BID, pain specialist. I did let them know patient is seeking follow-up for better management of her symptoms. Patient was given another dose of Valium and Dilaudid afterwards she felt comfortable. Creatine kinase is mildly elevated at 146, likely related to spasms. She is in stable medical condition for discharge. We discussed return parameters. Undiagnosed new problem with uncertain prognosis? @ -No Drug Therapy requiring intensive monitoring for toxicity (Heparin, Nitro, Insul in, Cardizem)? @ -No Were any procedures done? @ -No Diagnosis/symptom? @ -Muscle spasms Acute, or Chronic, or Acute on Chronic? @ -Acute on chronic Uncomplicated (without systemic symptoms) or Complicated (systemic symptoms)? @ Uncomplicated Side effects of treatment? @ -No Exacerbation, Progression, or Severe Exacerbation? @ -No Poses a threat to life or bodily function? How? (Chest pain, [place], [place], pneumonia, PE, COPD, DKA, ARF, appy, cholecystitis, CVA, Diverticulitis, Homicidal, Suicidal, threat to staff... and all critical care pts) @ -No Dr. Feliciano is my attending - Lab Data Result diagrams: 01/10/23 13:33 01/10/23 13:33 Lab Results 01/10/23 01/10/23 Range/Units 13:33 13:33 WBC 5.0 (3.8-10.6) k/uL RBC 3.76 L (3.80-5.40) m/uL Hgb 12.5 (11.4-16.0) gm/dL Hct 35.0 (34.0-46.0) % MCV 93.0 (80.0-100.0) fL MCH 33.2 (25.0-35.0) pg MCHC 35.7 (31.0-37.0) g/dL RDW 12.3 (11.5-15.5) % Plt Count 167 (150-450) k/uL MPV 7.6 Neutrophils % 60 % Lymphocytes % 30 % Monocytes % 7 % Eosinophils % 1 % Basophils % 0 % Neutrophils # 3.0 (1.3-7.7) k/uL Lymphocytes # 1.5 (1.0-4.8) k/uL Monocytes # 0.4 (0-1.0) k/uL Eosinophils # 0.0 (0-0.7) k/uL Basophils # 0.0 (0-0.2) k/uL Sodium 138 (137-145) mmol/L Potassium 4.1 (3.5-5.1) mmol/L Chloride 109 H (98-107) mmol/L Carbon Dioxide 22 (22-30) mmol/L Anion Gap 7 mmol/L BUN 15 (7-17) mg/dL Creatinine 0.96 (0.52-1.04) mg/dL Est GFR (CKD-EPI)AfAm 84 (>60 ml/min/1.73 sqM) Est GFR (CKD-EPI)NonAf 73 (>60 ml/min/1.73 sqM) Glucose 84 (74-99) mg/dL Calcium 8.9 (8.4-10.2) mg/dL Total Bilirubin 0.3 (0.2-1.3) mg/dL AST 27 (14-36) U/L ALT 17 (4-34) U/L Alkaline Phosphatase 59 (38-126) U/L Creatine Kinase 146 H (30-135) U/L Total Protein 7.5 (6.3-8.2) g/dL Albumin 3.9 (3.5-5.0) g/dL Disposition Clinical Impression: Muscle spasm Disposition: HOME SELF-CARE Condition: Good Instructions (If sedation given, give patient instructions): Muscle Spasm (ED) Additional Instructions: Please follow-up with pain management and neurology. Return to the emergency department if you experience new, concerning, or worsening symptoms Is patient prescribed a controlled substance at d/c from ED?: No Referrals: Slade Gonzalez MD [Primary Care Provider] - 1-2 days
[2023-01-10 16:30] VITALS: BP 126/78; PULSE 102; TEMP 97.3
== END 2023-01-10 16:55 | disposition home or self-care (01) ==
LOC: EC 12:53
DX: M62.838 Other muscle spasm (principal); J45.909 Unspecified asthma, uncomplicated; F32.A Depression, unspecified; F41.9 Anxiety disorder, unspecified; Z79.899 Other long term (current) drug therapy; Z79.51 Long term (current) use of inhaled steroids
CPT/HCPCS: 36415; 80053; 82550; 85025; 99284; 96374; 96375; 96376 ×2; J3360; J1170 ×2

== ENCOUNTER 2023-02-04 10:50 | Emergency (ER) | payer MEDICARE, OTHER ==
[2023-02-04 10:57] VITALS: TEMP 98.1
[2023-02-04] MEDS ORDERED: SODIUM CHLORIDE 0.9% 1,000 ML IV STA (11:08)
[2023-02-04] MEDS ORDERED: HYDROmorphone 0.5 MG/0.5 ML SYRINGE IVP STA ×2 (11:08→13:25)
--- NOTE | 2023-02-04 11:13 | ED ---
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 Patient states it was triggered after having surgery this morning to have a port placed. Patient was having a port placed for easy access infusions given her history of the stiff man syndrome. She states that she gets these muscle spasms when she is triggered with pain. She states she came in at the anesthesia and had worsening pain causing the spasms. The facility she had her surgery at did not feel comfortable managing her symptoms and transferred her here for further management. Patient was admitted for similar symptoms 3 weeks ago. She states that muscle relaxers and pain medication usually improve the symptoms. Patient denies any fevers. She denies any chest pain, vision changes, facial droop or other neurological issues. She has urinated since the surgery this morning. - Related Data Home Medications: Home Medications Medication Instructions Recorded Confirmed Medroxyprogesterone Acetate 150 mg IM Q84D 07/10/18 01/02/23 [Depo-Provera] Omalizumab [Xolair] 300 mg SQ Q30D 07/10/18 01/02/23 PARoxetine [Paxil] 20 mg PO HS 12/18/19 01/02/23 Fluticasone Propionate [Flovent 2 puff INHALATION RT-BID 06/13/20 01/02/23 Hfa 220 mcg] Loratadine [Claritin] 10 mg PO DAILY 06/13/20 01/02/23 SUMAtriptan succinate [Imitrex] 100 mg PO BID PRN 06/13/20 01/02/23 Botox Neck Injection 400 mg SQ Q70D 08/30/20 01/02/23 Albuterol Sulfate [Ventolin HFA] 2 puff INHALATION RT-Q6H PRN 09/30/20 01/02/23 Cholecalciferol (Vitamin D3) 125 mcg PO DAILY 03/01/22 01/02/23 [Vitamin D3 (125 MCG = 5,000 IU)] EPINEPHrine (Auto Inject) [Epipen] 0.3 mg IM ONCE PRN 03/01/22 01/02/23 Panzyga 10% Infusion 1 dose IV Q28D 03/01/22 01/02/23 diazePAM [Valium] 5 mg PO Q12H PRN 03/01/22 01/02/23 Albuterol Nebulized [Ventolin 2.5 mg INHALATION RT-Q6H PRN 12/19/22 01/02/23 Nebulized] Cyclobenzaprine [Flexeril] 5 mg PO QID 12/19/22 01/02/23 Montelukast [Singulair] 10 mg PO DAILY 12/19/22 01/02/23 traZODone HCL [Desyrel] 100 mg PO HS 12/19/22 01/02/23 Previous Rx's Medication Instructions Recorded Famotidine [Pepcid] 20 mg PO BID #60 tab 12/23/22 Folic Acid 0.5 mg PO DAILY #30 tab 12/23/22 Levothyroxine Sodium [Synthroid] 75 mcg PO DAILY@0630 #30 tab 12/23/22 Levothyroxine Sodium [Synthroid] 100 mcg PO DAILY@0630 #30 tab 12/23/22 Naproxen [Naprosyn] 500 mg PO BID 5 Days #10 tab 12/23/22 Lactulose [Cephulac] 20 gm PO DAILY PRN #200 ml 12/26/22 Metoclopramide [Reglan] 10 mg PO Q8H #20 tab 12/26/22 fentaNYL 12MCG/HR PATCH [Duragesic 1 patch TRANSDERM Q72H 30 Days #10 01/02/23 12MCG/HR] patch fentaNYL 12MCG/HR PATCH [Duragesic 1 patch TRANSDERM Q72H 30 Days #10 01/02/23 12MCG/HR] patch oxyCODONE-APAP 10-325MG [Percocet 1 each PO TID PRN 30 Days #90 tab 01/02/23 10-325 mg] oxyCODONE-APAP 10-325MG [Percocet 1 tab PO TID PRN 30 Days #90 tab 01/02/23 10-325 mg] Allergies/Adverse Reactions: Allergies Allergy/AdvReac Type Severity Reaction Status Date / Time No Known Allergies Allergy Verified 02/04/23 10:57 Review of Systems ROS Statement: Those systems with pertinent positive or pertinent negative responses have been documented in the HPI. ROS Other: All systems not noted in ROS Statement are negative. General Exam Limitations: physical limitation Stroke MDM - Lab Data Result diagrams: 02/04/23 11:26 02/04/23 11:26 Lab Results 02/04/23 02/04/23 02/04/23 Range/Units 11:26 11:26 12:52 WBC 5.2 (3.8-10.6) k/uL RBC 3.61 L (3.80-5.40) m/uL Hgb 11.9 (11.4-16.0) gm/dL Hct 33.7 L (34.0-46.0) % MCV 93.4 (80.0-100.0) fL MCH 32.9 (25.0-35.0) pg MCHC 35.3 (31.0-37.0) g/dL RDW 12.1 (11.5-15.5) % Plt Count 176 (150-450) k/uL MPV 7.6 Neutrophils % 62 % Lymphocytes % 28 % Monocytes % 6 % Eosinophils % 3 % Basophils % 0 % Neutrophils # 3.2 (1.3-7.7) k/uL Lymphocytes # 1.5 (1.0-4.8) k/uL Monocytes # 0.3 (0-1.0) k/uL Eosinophils # 0.2 (0-0.7) k/uL Basophils # 0.0 (0-0.2) k/uL Sodium 136 L (137-145) mmol/L Potassium 4.3 (3.5-5.1) mmol/L Chloride 106 (98-107) mmol/L Carbon Dioxide 28 (22-30) mmol/L Anion Gap 2 mmol/L BUN 14 (7-17) mg/dL Creatinine 1.01 (0.52-1.04) mg/dL Est GFR (CKD-EPI)AfAm 80 (>60 ml/min/1.73 sqM) Est GFR (CKD-EPI)NonAf 69 (>60 ml/min/1.73 sqM) Glucose 80 (74-99) mg/dL Calcium 8.9 (8.4-10.2) mg/dL Magnesium 1.5 L (1.6-2.3) mg/dL Total Bilirubin 0.4 (0.2-1.3) mg/dL AST 42 H (14-36) U/L ALT 24 (4-34) U/L Alkaline Phosphatase 62 (38-126) U/L Total Protein 6.6 (6.3-8.2) g/dL Albumin 3.3 L (3.5-5.0) g/dL Urine HCG, Qual Not Detected (Not Detectd) Past Medical History Past Medical History: Asthma, Pneumonia Additional Past Medical History / Comment(s): TACHYCARDIA, peptic ulcers, anemia."HAS BEEN ON VENTILATOR IN PAST D/T SEVERE ASTHMA ATTACK," BULEMIA-STATES GETTING BETTER, CONSTIPATION. HERNIATED DISC, cervical cancer. 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 recent antibiotoc for infection in arm-now resolved per pt, COVID 12/30/20. 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 Surgery on her cervix for cancer, rt foot surgery(Fx), cysto/lithotripsy , left hip replacement 12/2018, lumbar puncture, cervical biopsy in August @[facility], bone tumor removal Past Anesthesia/Blood Transfusion Reactions: Postoperative Nausea & Vomiting (PONV) Past Psychological History: Anxiety, Depression Smoking Status: Never smoker Past Alcohol Use History: None Reported Past Drug Use History: None Reported - Past Family History Mother Family Medical History: Pneumonia Additional Family Medical History / Comment(s): Mother of pneumonia. Patient's son of brain cancer, last mother and father both liver cancer Son(s) Family Medical History: Cancer Additional Family Medical History / Comment(s): Son of brain cancer. Father Family Medical History: Cancer Additional Family Medical History / Comment(s): Liver Cancer. Course Vital Signs 02/04/23 10:54 Temperature 98.1 F Pulse Rate 92 Respiratory 20 Rate Blood Pressure 126/91 O2 Sat by Pulse 96 Oximetry Disposition Clinical Impression: Chronic pain, Muscle spasm Narrative: Follow up with neurologist as an outpatient. INcrease rest and fluids. Disposition: HOME SELF-CARE Condition: Good Instructions (If sedation given, give patient instructions): Chronic Pain (ED), Pain Management (ED), Muscle Spasm (ED) Is patient prescribed a controlled substance at d/c from ED?: No Referrals: Slade Gonzalez MD [Primary Care Provider] - 1-2 days Time of Disposition: 14:54
[2023-02-04 11:37] LABS: Basophils % (A) 0 %; Eosinophils # (A) 0.2 k/uL (0-0.7); Eosinophils % (A) 3 %; HCT 33.7 % (34.0-46.0); HGB 11.9 gm/dL (11.4-16.0); Lymphocytes # (A) 1.5 k/uL (1.0-4.8); Lymphocytes % (A) 28 %; MCH 32.9 pg (25.0-35.0); MCHC 35.3 g/dL (31.0-37.0); MCV 93.4 fL (80.0-100.0); Mean Platelet Volume 7.6; Monocytes # (A) 0.3 k/uL (0-1.0); Monocytes % (A) 6 %; Neutrophils # (A) 3.2 k/uL (1.3-7.7); Neutrophils % (A) 62 %; Platelet Count 176 k/uL (150-450); RBC 3.61 m/uL (3.80-5.40); RDW 12.1 % (11.5-15.5); WBC 5.2 k/uL (3.8-10.6)
[2023-02-04 11:56] LABS: ALT 24 U/L (4-34); AST 42 U/L (14-36); African American GFR (CKD) 80 (>60 ml/min/1.73 sqM); Albumin 3.3 g/dL (3.5-5.0); Alkaline Phosphatase 62 U/L (38-126); Anion Gap 2 mmol/L; Blood Urea Nitrogen 14 mg/dL (7-17); Calcium 8.9 mg/dL (8.4-10.2); Carbon Dioxide 28 mmol/L (22-30); Chloride 106 mmol/L (98-107); Glucose 80 mg/dL (74-99); Magnesium 1.5 mg/dL (1.6-2.3); Non-African American GFR(CKD) 69 (>60 ml/min/1.73 sqM); Potassium 4.3 mmol/L (3.5-5.1); Sodium 136 mmol/L (137-145); Total Bilirubin 0.4 mg/dL (0.2-1.3); Total Protein 6.6 g/dL (6.3-8.2)
[2023-02-04] MEDS ORDERED: ONDANSETRON 4 MG/2 ML VIAL IVP STA (13:25)
[2023-02-04 15:04] VITALS: BP 106/68; PULSE 82; RESP 18
--- NOTE | 2023-02-04 15:31 | ED ---
General Adult HPI - General Chief complaint: Neuro Symptoms/Deficit Stated complaint: tremmors Time Seen by Provider: 02/04/23 10:54 Source: patient, EMS Mode of arrival: EMS Limitations: physical limitation - History of Present Illness Initial comments: Patient is a 42-year-old female who has a history of stiff man syndrome and chronic pain who presents to the Ed with complaints of muscle spasm and pain that started this morning after surgery. The patient was transferred from another facility where she had a port placed for easy access for her IVIG infusions. She states that any type of pain triggers her muscle spasms and the facility she was at did not know how to manage this and did not feel comfortable giving further medications so she was transferred here. The patient denies any fevers. She states this is similar to when she has had the muscle spasms and flareups in the past. She takes fentanyl patches, Percocet, Valium as an outpa tient. Patient's neurologist is at [facility] she is trying to get a local neurologist who will be more readily available for follow-up and further management. Patient denies any chest pain palpitations or shortness breath. Denies any other neurological issues. Denies any focal deficits. the family is at the bedside. - Related Data Home Medications Medication Instructions Recorded Confirmed Medroxyprogesterone Acetate 150 mg IM Q84D 07/10/18 01/02/23 [Depo-Provera] Omalizumab [Xolair] 300 mg SQ Q30D 07/10/18 01/02/23 PARoxetine [Paxil] 20 mg PO HS 12/18/19 01/02/23 Fluticasone Propionate [Flovent 2 puff INHALATION RT-BID 06/13/20 01/02/23 Hfa 220 mcg] Loratadine [Claritin] 10 mg PO DAILY 06/13/20 01/02/23 SUMAtriptan succinate [Imitrex] 100 mg PO BID PRN 06/13/20 01/02/23 Botox Neck Injection 400 mg SQ Q70D 08/30/20 01/02/23 Albuterol Sulfate [Ventolin HFA] 2 puff INHALATION RT-Q6H PRN 09/30/20 01/02/23 Cholecalciferol (Vitamin D3) 125 mcg PO DAILY 03/01/22 01/02/23 [Vitamin D3 (125 MCG = 5,000 IU)] EPINEPHrine (Auto Inject) [Epipen] 0.3 mg IM ONCE PRN 03/01/22 01/02/23 Panzyga 10% Infusion 1 dose IV Q28D 03/01/22 01/02/23 diazePAM [Valium] 5 mg PO Q12H PRN 03/01/22 01/02/23 Albuterol Nebulized [Ventolin 2.5 mg INHALATION RT-Q6H PRN 12/19/22 01/02/23 Nebulized] Cyclobenzaprine [Flexeril] 5 mg PO QID 12/19/22 01/02/23 Montelukast [Singulair] 10 mg PO DAILY 12/19/22 01/02/23 traZODone HCL [Desyrel] 100 mg PO HS 12/19/22 01/02/23 Previous Rx's Medication Instructions Recorded Famotidine [Pepcid] 20 mg PO BID #60 tab 12/23/22 Folic Acid 0.5 mg PO DAILY #30 tab 12/23/22 Levothyroxine Sodium [Synthroid] 75 mcg PO DAILY@0630 #30 tab 12/23/22 Levothyroxine Sodium [Synthroid] 100 mcg PO DAILY@0630 #30 tab 12/23/22 Naproxen [Naprosyn] 500 mg PO BID 5 Days #10 tab 12/23/22 Lactulose [Cephulac] 20 gm PO DAILY PRN #200 ml 12/26/22 Metoclopramide [Reglan] 10 mg PO Q8H #20 tab 12/26/22 fentaNYL 12MCG/HR PATCH [Duragesic 1 patch TRANSDERM Q72H 30 Days #10 01/02/23 12MCG/HR] patch fentaNYL 12MCG/HR PATCH [Duragesic 1 patch TRANSDERM Q72H 30 Days #10 01/02/23 12MCG/HR] patch oxyCODONE-APAP 10-325MG [Percocet 1 each PO TID PRN 30 Days #90 tab 01/02/23 10-325 mg] oxyCODONE-APAP 10-325MG [Percocet 1 tab PO TID PRN 30 Days #90 tab 01/02/23 10-325 mg] Allergies Allergy/AdvReac Type Severity Reaction Status Date / Time No Known Allergies Allergy Verified 02/04/23 10:57 Review of Systems ROS Statement: Those systems with pertinent positive or pertinent negative responses have been documented in the HPI. ROS Other: All systems not noted in ROS Statement are negative. Past Medical History Past Medical History: Asthma, Pneumonia Additional Past Medical History / Comment(s): TACHYCARDIA, peptic ulcers, anemia."HAS BEEN ON VENTILATOR IN PAST D/T SEVERE ASTHMA ATTACK," BULEMIA-STATES GETTING BETTER, CONSTIPATION. HERNIATED DISC, cervical cancer. 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 recent antibiotoc for infection in arm-now resolved per pt, COVID 12/30/20. 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 Surgery on h er cervix for cancer, rt foot surgery(Fx), cysto/lithotripsy , left hip replacement 12/2018, lumbar puncture, cervical biopsy in August @, bone tumor removal Past Anesthesia/Blood Transfusion Reactions: Postoperative Nausea & Vomiting (PONV) Past Psychological History: Anxiety, Depression Smoking Status: Never smoker Past Alcohol Use History: None Reported Past Drug Use History: None Reported - Past Family History Mother Family Medical History: Pneumonia Additional Family Medical History / Comment(s): Mother of pneumonia. Patient's son of brain cancer, last mother and father both liver cancer Son(s) Family Medical History: Cancer Additional Family Medical History / Comment(s): Son of brain cancer. Father Family Medical History: Cancer Additional Family Medical History / Comment(s): Liver Cancer. General Exam Limitations: physical limitation General appearance: alert Head exam: Present: atraumatic Eye exam: Present: normal appearance Neck exam: Present: normal inspection Respiratory exam: Present: normal lung sounds bilaterally Cardiovascular Exam: Present: regular rate, normal rhythm GI/Abdominal exam: Present: soft, other (no tenderness) Extremities exam: Present: other (contracted upper extremities, worse over the wrists. no erythema no discoloration. no swelling. palpable distal pulses. Muscles relaxed and contractions improved with valium) Neurological exam: Present: alert, oriented X3 Psychiatric exam: Present: normal affect, normal mood Skin exam: Present: warm, dry Course Vital Signs 02/04/23 02/04/23 10:54 15:02 Temperature 98.1 F Pulse Rate 92 82 Respiratory 20 18 Rate Blood Pressure 126/91 106/68 O2 Sat by Pulse 96 98 Oximetry - Reevaluation(s) Reevaluation #1: 02/04/23 13:46 Patient continued to have pain after 1 dose of pain medication and muscle relaxant emergency room. On reevaluation her muscle spasms have improved significantly. She was given 1 further dose of the occasions and was feeling better to be discharged home. We attempted to have neurologist Dr. Itzel Mcbride speak with the neurologist at [facility]. We attempted multiple times and for several hours but did not hear back from this neurologist. We discussed with the patient we would attempt to have the conversation and set up outpatient follow-up even after she has been discharged. The patient states that she has a referral to a local neurologist that she has an appointment with in the upcoming weeks. She feels comfortable going home. She does understand to return to the emergency room. Patient's symptoms recommend disposition were discussed with attending physician Dr. Laguna Medical Decision Making - Medical Decision Making Was pt. sent in by a medical professional or institution (, PA, DIRECTOR EPIDEMIOLOGY, urgent care, hospital, or fdc...) When possible be specific @ -[facility] Did you speak to anyone other than the patient for history (EMS, parent, family, police, friend...)? What history was obtained from this source @ -Daughter and at bedside Did you review nursing and triage notes (agree or disagree)? Why? @ -[I reviewed and agree with nursing and triage notes] Were old charts reviewed (outside hosp., previous admission, EMS record, old EKG, old radiological studies, urgent care reports/EKG's, fdc records)? Report findings @ -Yes old charts were reviewed Differential Diagnosis (chest pain, altered mental status, abdominal pain women, abdominal pain men, vaginal bleeding, weakness, fever, dyspnea, syncope, headache, dizziness, GI bleed, back pain, seizure, CVA, palpatations, mental health, musculoskeletal)? @ -Acute on chronic pain, muscle spasm, Stiff man syndrome EKG interpreted by me (3pts min.). @ -[As above] X-rays interpreted by me (1pt min.). @ -[None done] CT interpreted by me (1pt min.). @ -[None done] U/S interpreted by me (1pt. min.). @ -[None done] What testing was considered but not performed or refused? (CT, X-rays, U/S, labs)? Why? @ -[None] What meds were considered but not given or refused? Why? @ -[None] Did you discuss the management of the patient with other professionals (professionals i.e. , PA, DIRECTOR EPIDEMIOLOGY, lab, RT, psych nurse, social secretary, charge account identification clerk, teacher, national service officer, home health care case manager)? Give summary @ -I discussed patient's symptoms and management with attending ED physician Dr. Laguna today. Doctor and spoke with the neurologist at her [facility] Dr. Mcbride regarding management of this patient. This neurologist was going to speak with the neurologist in [place] regarding patient's diagnosis and management. We never did end up receiving a phone call back from the patient's neurologist. Was smoking cessation discussed for >3mins.? @ -[No] Was critical care preformed (if so, how long)? @ -[No] Were there social determinants of health that impacted care today? How? (Homelessness, low income, unemployed, alcoholism, drug addiction, transportation, low edu. Level, literacy, decrease access to med. care, [facility], rehab)? @ -[No] Was there de-escalation of care discussed even if they declined (Discuss DNR or withdrawal of care, Hospice)? DNR status @ -[No] What co-morbidities impacted this encounter? (DM, HTN, Smoking, COPD, CAD, Cancer, CVA, ARF, Chemo, Hep., AIDS, mental health diagnosis, sleep apnea, morbid obesity)? @ -Stiff-man Syndrome Was patient admitted / discharged? Hospital course, mention meds given and route, prescriptions, significant lab abnormalities, going to OR and other pertinent info. @ -Patient will be discharged home. She may manage her pain with. The patient pain medication and muscle relaxers. She is stable to go home at this time. Her labs are unremarkable. She is to follow-up with the neurologist referral she was given. She understands I return to the emergency room. Undiagnosed new problem with uncertain prognosis? @ -[No] Drug Therapy requiring intensive monitoring for toxicity (Heparin, Nitro, Insulin, Cardizem)? @ -[No] Were any procedures done? @ -[No] Diagnosis/symptom? @ -Acute on chronic pain, muscle spasms, stiff man syndrome flare Acute, or Chronic, or Acute on Chronic? @ -Acute on chronic Uncomplicated (without systemic symptoms) or Complicated (systemic symptoms)? @ -Uncomplicated Side effects of treatment? @ -[No] Exacerbation, Progression, or Severe Exacerbation? @ -Exacerbation Poses a threat to life or bodily function? How? (Chest pain, [place], [place], pneumonia, PE, COPD, DKA, ARF, appy, cholecystitis, CVA, Diverticulitis, Homicidal, Suicidal, threat to staff... and all critical care pts) @ -[No] - Lab Data Result diagrams: 02/04/23 11:26 02/04/23 11:26 Lab Results 02/04/23 02/04/23 02/04/23 Range/Units 11:26 11:26 12:52 WBC 5.2 (3.8-10.6) k/uL RBC 3.61 L (3.80-5.40) m/uL Hgb 11.9 (11.4-16.0) gm/dL Hct 33.7 L (34.0-46.0) % MCV 93.4 (80.0-100.0) fL MCH 32.9 (25.0-35.0) pg MCHC 35.3 (31.0-37.0) g/dL RDW 12.1 (11.5-15.5) % Plt Count 176 (150-450) k/uL MPV 7.6 Neutrophils % 62 % Lymphocytes % 28 % Monocytes % 6 % Eosinophils % 3 % Basophils % 0 % Neutrophils # 3.2 (1.3-7.7) k/uL Lymphocytes # 1.5 (1.0-4.8) k/uL Monocytes # 0.3 (0-1.0) k/uL Eosinophils # 0.2 (0-0.7) k/uL Basophils # 0.0 (0-0.2) k/uL Sodium 136 L (137-145) mmol/L Potassium 4.3 (3.5-5.1) mmol/L Chloride 106 (98-107) mmol/L Carbon Dioxide 28 (22-30) mmol/L Anion Gap 2 mmol/L BUN 14 (7-17) mg/dL Creatinine 1.01 (0.52-1.04) mg/dL Est GFR (CKD-EPI)AfAm 80 (>60 ml/min/1.73 sqM) Est GFR (CKD-EPI)NonAf 69 (>60 ml/min/1.73 sqM) Glucose 80 (74-99) mg/dL Calcium 8.9 (8.4-10.2) mg/dL Magnesium 1.5 L (1.6-2.3) mg/dL Total Bilirubin 0.4 (0.2-1.3) mg/dL AST 42 H (14-36) U/L ALT 24 (4-34) U/L Alkaline Phosphatase 62 (38-126) U/L Total Protein 6.6 (6.3-8.2) g/dL Albumin 3.3 L (3.5-5.0) g/dL Urine HCG, Qual Not Detected (Not Detectd) Disposition Clinical Impression: Chronic pain, Muscle spasm Disposition: HOME SELF-CARE Condition: Good Instructions (If sedation given, give patient instructions): Pain Management (ED), Chronic Pain (ED), Muscle Spasm (ED) Is patient prescribed a controlled substance at d/c from ED?: No Referrals: Slade Gonzalez MD [Primary Care Provider] - 1-2 days Time of Disposition: 14:46
== END 2023-02-04 15:03 | disposition home or self-care (01) ==
LOC: EC 10:50
DX: G89.29 Other chronic pain (principal); G25.82 Stiff-man syndrome; J45.909 Unspecified asthma, uncomplicated; F41.9 Anxiety disorder, unspecified; F32.A Depression, unspecified; Z79.899 Other long term (current) drug therapy
CPT/HCPCS: 36415; 80053; 83735; 85025; 81025; 99284; 96374; 96375 ×2; 96376 ×2; 96361 ×4; J3360; J2405; J1170

== ENCOUNTER → 2023-03-25 | Outpatient (CLI) | payer MEDICARE, OTHER ==
--- NOTE | 2023-03-25 08:18 | P.PN ---
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 Pt states pain and stiffness level is at 7 /10 in intensity and accompanied w muscle spasms in the neck arms, chest and legs, constant, ti ght, sharp in character without radiating pain. Pt states had multiple episodes of severe spasms at home , missing doses of medications, changes in room temperature, etch. Pain is provoked by any movement. Pain is alleviated by medications, heat, ice, laying supine, monthly IgG infusions from her established neurologist, laying on her side and rest. Patient reported that she had side effects from the fentanyl patch make her sleepy, and she is currently on Percocet 10/325 every 6-8 hours when necessary, and Flexeril 5 mg every 6 hours REVIEW OF ORGAN SYSTEMS: CONSTITUTIONAL: No fevers or chills. No recent weight loss. NEUROLOGICAL: + numbness and tingling along the distal extremities. No seizure disorders or headaches. MUSCULOSKELETAL: + pain PSYCHIATRIC: Denies current depression or suicidal thoughts. Physical Examinations : Constitutional : Cooperative , not in acute distress . Neurologic : Cranial nerve II to XII intact. No focal neurological deficits. Psychiatric : alert & oriented x 3. Matching mood & appropriate affect. Judgment & insight intact. Musculoskeletal : Cervical Spine Motor strength in the deltoid and biceps: Normal right side. Normal Left side Motor strength biceps and the wrist extensors: Normal right side . Normal left side Motor strength in the triceps muscle: Normal right side. Normal left side Deep tendon reflexes: Normal at the biceps. Normal at Brachioradialis. Normal at triceps Vertebral body tenderness to deep palpation over Cervical facet loading test: positive bilaterally Spurling test: positive bilaterally Neck distraction test: positive bilaterally Valencia sign: positive bilaterally Lumbar spine Motor strength lower extremities ,thigh and legs 5/5 Right side , 5/5 Left side Deep tendon reflexes : Normal Knee Jerk. Normal Ankle Jerk Vertebral body tenderness over Lumbar facet Loading Test: positive Rig ht / positive Left Range of motion of the lumbar spine Flexion 30 degrees, extension 10 degrees Straight Leg Raise test: Left/ Right positive at degree Mary test: positive right / positive left. Severe tenderness over the Sacroiliac joint on the Right / Left sides Gaenslen test: positive bilaterally Seated flexion test: positive bilaterally. 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 Use, side effects, adverse reactions and safe storage discussed. Narcotic/ opiate agreement signed today 01/02/23. Discussed UDS results as pt was not under contract at the time medications were prescribed by IM. Urged compliance with protocols. Will recheck UDS today . Patient is referred to physical therapy for evaluation regarding increased neck pain and stiffness Patient will follow up in the pain clinic in 2 months PQRS Narrative: Smoking Status Never smoker Narcotic Agreement Date Signed 01/02/23 Hx Alcohol Use (MH) No Home Medications: Ambulatory Orders Medroxyprogesterone Acetate [Depo-Provera] 150 mg IM Q84D 07/10/18 Omalizumab [Xolair] 300 mg SQ Q30D 07/10/18 PARoxetine [Paxil] 20 mg PO HS 12/18/19 Fluticasone Propionate [Flovent Hfa 220 mcg] 2 puff INHALATION RT-BID 06/13/20 Loratadine [Claritin] 10 mg PO DAILY 06/13/20 SUMAtriptan succinate [Imitrex] 100 mg PO BID PRN 06/13/20 Botox Neck Injection 400 mg SQ Q70D 08/30/20 Albuterol Sulfate [Ventolin HFA] 2 puff INHALATION RT-Q6H PRN 09/30/20 Cholecalciferol (Vitamin D3) [Vitamin D3 (125 MCG = 5,000 IU)] 125 mcg PO DAILY 03/01/22 EPINEPHrine (Auto Inject) [Epipen] 0.3 mg IM ONCE PRN 03/01/22 Panzyga 10% Infusion 1 dose IV Q28D 03/01/22 diazePAM [Valium] 2 mg PO Q12H PRN 03/01/22 Albuterol Nebulized [Ventolin Nebulized] 2.5 mg INHALATION RT-Q6H PRN 12/19/22 Cyclobenzaprine [Flexeril] 5 mg PO QID 12/19/22 Montelukast [Singulair] 10 mg PO DAILY 12/19/22 traZODone HCL [Desyrel] 100 mg PO HS 12/19/22 Famotidine [Pepcid] 20 mg PO BID #60 tab 12/23/22 Folic Acid 0.5 mg PO DAILY #30 tab 12/23/22 Levothyroxine Sodium [Synthroid] 75 mcg PO DAILY@0630 #30 tab 12/23/22 Levothyroxine Sodium [Synthroid] 100 mcg PO DAILY@0630 #30 tab 12/23/22 Mag Hydrox/Al Hydrox/Simeth [Maalox] 30 ml PO Q4HR PRN ml 12/23/22 Naproxen [Naprosyn] 500 mg PO BID 5 Days #10 tab 12/23/22 Lactulose [Cephulac] 20 gm PO DAILY PRN #200 ml 12/26/22 Metoclopramide [Reglan] 10 mg PO Q8H #20 tab 12/26/22 dexAMETHasone ORAL [Hexadrol] 1 mg PO DAILY #2 tab 12/26/22 oxyCODONE-APAP 10-325MG [Percocet 10-325 mg] 1 each PO TID PRN 30 Days #90 tab 01/02/23 oxyCODONE-APAP 10-325MG [Percocet 10-325 mg] 1 tab PO TID PRN 30 Days #90 tab 01/02/23 Controlled Substance Measures - Controlled Substance Measures Is patient prescribed a controlled substance at discharge?: Yes When asked, does pt state using other controlled substances?: Yes If prescribed controlled substance>3 days was MAPS reviewed?: Yes Objective - Vital Signs Vital signs: Intake & Output 03/24/23 03/25/23 03/25/23 18:59 06:59 18:59 Weight 58.513 kg
[2023-03-25 08:22] VITALS: BP 152/108; PULSE 88; RESP 15; TEMP 98.7
== END ==
LOC: PNWHC3 07:45
PROVIDERS: ATTEND Specialist
DX: G25.82 Stiff-man syndrome (principal); G24.3 Spasmodic torticollis; Z51.81 Encounter for therapeutic drug level monitoring; Z76.0 Encounter for issue of repeat prescription; Z79.890 Hormone replacement therapy
CPT/HCPCS: 80307; 99212

== ENCOUNTER 2023-04-08 09:58 | Inpatient (IN) | payer MEDICARE, OTHER ==
[2023-04-08] MEDS ORDERED: ORPHENADRINE 30 MG/ML 2 ML VIAL IM STA (10:32)
[2023-04-08] MEDS ORDERED: KETOROLAC 15 MG/ML 1 ML VIAL IM STA (10:33)
--- NOTE | 2023-04-08 10:35 | ED ---
Fall HPI - General Chief Complaint: Fall Stated Complaint: FALL Time Seen by Provider: 04/08/23 10:15 Source: patient Mode of arrival: EMS - History of Present Illness Initial Comments: 42-year-old female with a past medical history significant for stiff man-year syndrome resulting to the ED with a chief complaint of fall. Patient states that she was in the kitchen earlier today when she had muscle spasms consistent with her history of stiff man syndrome. States that this caused her to fall. Patient reports that she did hit her head on the countertop. There is unsure of LOC as patient states that she cannot recall the event. States that she was standing on second and next thing she recalls she was on the floor with her daughter. Patient now notes pain of her neck, which patient reports is chronic in nature however is unsure if she is having more pain than usual. Patient is not on any blood thinners. Denies injury of any of the other extremities. Also notes myalgias and muscle spasms consistent with history of stiff man syndrome. No other complaints. - Related Data Home Medications Medication Instructions Recorded Confirmed Medroxyprogesterone Acetate 150 mg IM Q84D 07/10/18 01/02/23 [Depo-Provera] Omalizumab [Xolair] 300 mg SQ Q30D 07/10/18 01/02/23 PARoxetine [Paxil] 20 mg PO HS 12/18/19 01/02/23 Fluticasone Propionate [Flovent 2 puff INHALATION RT-BID 06/13/20 01/02/23 Hfa 220 mcg] Loratadine [Claritin] 10 mg PO DAILY 06/13/20 01/02/23 SUMAtriptan succinate [Imitrex] 100 mg PO BID PRN 06/13/20 01/02/23 Botox Neck Injection 400 mg SQ Q70D 08/30/20 01/02/23 Albuterol Sulfate [Ventolin HFA] 2 puff INHALATION RT-Q6H PRN 09/30/20 01/02/23 Cholecalciferol (Vitamin D3) 125 mcg PO DAILY 03/01/22 01/02/23 [Vitamin D3 (125 MCG = 5,000 IU)] EPINEPHrine (Auto Inject) [Epipen] 0.3 mg IM ONCE PRN 03/01/22 01/02/23 Panzyga 10% Infusion 1 dose IV Q28D 03/01/22 01/02/23 diazePAM [Valium] 5 mg PO Q12H PRN 03/01/22 01/02/23 Albuterol Nebulized [Ventolin 2.5 mg INHALATION RT-Q6H PRN 12/19/22 01/02/23 Nebulized] Montelukast [Singulair] 10 mg PO DAILY 12/19/22 01/02/23 traZODone HCL [Desyrel] 100 mg PO HS 12/19/22 01/02/23 Previous Rx's Medication Instructions Recorded Famotidine [Pepcid] 20 mg PO BID #60 tab 12/23/22 Folic Acid 0.5 mg PO DAILY #30 tab 12/23/22 Levothyroxine Sodium [Synthroid] 75 mcg PO DAILY@0630 #30 tab 12/23/22 Levothyroxine Sodium [Synthroid] 100 mcg PO DAILY@0630 #30 tab 12/23/22 Naproxen [Naprosyn] 500 mg PO BID 5 Days #10 tab 12/23/22 Lactulose [Cephulac] 20 gm PO DAILY PRN #200 ml 12/26/22 Metoclopramide [Reglan] 10 mg PO Q8H #20 tab 12/26/22 Cyclobenzaprine [Flexeril] 5 mg PO QID 30 Days #120 tab 03/25/23 oxyCODONE-APAP 10-325MG [Percocet 1 each PO TID PRN 30 Days #90 tab 03/25/23 10-325 mg] oxyCODONE-APAP 10-325MG [Percocet 1 tab PO TID PRN 30 Days #90 tab 03/25/23 10-325 mg] Allergies Allergy/AdvReac Type Severity Reaction Status Date / Time No Known Allergies Allergy Verified 04/08/23 10:07 Review of Systems ROS Statement: Those systems with pertinent positive or pertinent negative responses have been documented in the HPI. ROS Other: All systems not noted in ROS Statement are negative. Past Medical History Past Medical History: Asthma, Pneumonia Additional Past Medical History / Comment(s): TACHYCARDIA, peptic ulcers, anemia."HAS BEEN ON VENTILATOR IN PAST D/T SEVERE ASTHMA ATTACK," BULEMIA-STATES GETTING BETTER, CONSTIPATION. HERNIATED DISC, cervical cancer. 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 recent antibiotoc for infection in arm-now resolved per pt, COVID 12/30/20. 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 Surgery on her cervix for cancer, rt foot surgery(Fx), cysto/lithotripsy , left hip replacement 12/2018, lumbar puncture, cervical biopsy in August @[facility], bone tumor removal Past Anesthesia/Blood Transfusion Reactions: Postoperative Nausea & Vomiting (PONV) Past Psychological History: Anxiety, Depression Smoking Status: Never smoker Past Alcohol Use History: None Reported Past Drug Use History: None Reported - Past Family History Mother Family Medical History: Pneumonia Additional Family Medical History / Comment(s): Mother of pneumonia. Patient's son of brain cancer, last mother and father both liver cancer Son(s) Family Medical History: Cancer Additional Family Medical History / Comment(s): Son of brain cancer. Father Family Medical History: Cancer Additional Family Medical History / Comment(s): Liver Cancer. General Exam Limitations: no limitations General appearance: alert, in no apparent distress Neck exam: Present: normal inspection Respiratory exam: Present: normal lung sounds bilaterally Cardiovascular Exam: Present: regular rate, normal rhythm GI/Abdominal exam: Present: soft Extremities exam: Present: other (Contractions of bilateral upper and lower extremities however strength and sensation intact. DP/PT pulses 2+. Radial pulses 2+.) Neurological exam: Present: alert, oriented X3 Skin exam: Present: warm, dry Course Vital Signs 04/08/23 10:04 Temperature 98.4 F Pulse Rate 101 H Respiratory 16 Rate Blood Pressure 125/97 O2 Sat by Pulse 96 Oximetry Medical Decision Making - Medical Decision Making Was pt. sent in by a medical professional or institution (, PA, [employer], urgent care, hospital, or detention...) When possible be specific @ -No Did you speak to anyone other than the patient for history (EMS, parent, family, police, friend...)? What history was obtained from this source @ -No Did you review nursing and triage notes (agree or disagree)? Why? @ -I reviewed and agree with nursing and triage notes Were old charts reviewed (outside hosp., previous admission, EMS record, old EKG, old radiological studies, urgent care reports/EKG's, detention records)? Report findings @ -Review on chart on 03/25/23 shows history of stiff man syndrome. Was recently prescribed Percocets for quantity of 90 with one refill. Differential Diagnosis (chest pain, altered mental status, abdominal pain women, abdominal pain men, vaginal bleeding, weakness, fever, dyspnea, syncope, headache, dizziness, GI bleed, back pain, seizure, CVA, palpatations, mental health, musculoskeletal)? @ -Differential Musculoskeletal Muscular strain, contusion, ligament sprain, fracture, arthritis, septic arthritis, bursitis, cellulitis, muscle spasm, nerve compression, DVT, arterial occlusion, herpes zoster, electrolyte abnormality, tumor.... This is not meant to be in all inclusive list EKG interpreted by me (3pts min.). @ -None X-rays interpreted by me (1pt min.). @ -None done CT interpreted by me (1pt min.). @ -CT brain and C-spine cervical by me showing no evidence of fracture, bleed, or other acute finding. U/S interpreted by me (1pt. min.). @ -None done What testing was considered but not performed or refused? (CT, X-rays, U/S, labs)? Why? @ -None What meds were considered but not given or refused? Why? @ -None Did you discuss the management of the patient with other professionals (professionals i.e. , PA, [employer], lab, RT, psych nurse, oncology social worker, wick tender, teacher, contracting officer, security sales manager)? Give summary @ -Spoke to Dr. Whitney who is in agreement with plan of care and accepted admission. Was smoking cessation discussed for >3mins.? @ -No Was critical care preformed (if so, how long)? @ -No Were there social determinants of health that impacted care today? How? (Homelessness, low income, unemployed, alcoholism, drug addiction, transporta tion, low edu. Level, literacy, decrease access to med. care, shelter, rehab)? @ -No Was there de-escalation of care discussed even if they declined (Discuss DNR or withdrawal of care, Hospice)? DNR status @ -No What co-morbidities impacted this encounter? (DM, HTN, Smoking, COPD, CAD, Cancer, CVA, ARF, Chemo, Hep., AIDS, mental health diagnosis, sleep apnea, morbid obesity)? @ -None Was patient admitted / discharged? Hospital course, mention meds given and route, prescriptions, significant lab abnormalities, going to OR and other pertinent info. @ -Admission 42-year-old female with a past medical history significant for stiff man syndrome presenting to the ED after recent flare causing her to fall in her kitchen today hitting her head. CT brain and C-spine revealed no acute findings. Denied any other injuries at this time and notes pain currently consistent with history of prior flares of stiff man syndrome. At this time, patient has received significant amounts of pain medication still requiring more. Therefore, will be admitted to observation with consults to pain control and neurology. Discussed plan of care with patient who is in agreement. Undiagnosed new problem with uncertain prognosis? @ -No Drug Therapy requiring intensive monitoring for toxicity (Heparin, Nitro, Insulin, Cardizem)? @ -No Were any procedures done? @ -No Diagnosis/symptom? @ -Stiff men syndrome, status post mechanical fall Acute, or Chronic, or Acute on Chronic? @ -Acute Uncomplicated (without systemic symptoms) or Complicated (systemic symptoms)? @ -Complicated Side effects of treatment? @ -No Exacerbation, Progression, or Severe Exacerbation? @ -No Poses a threat to life or bodily function? How? (Chest pain, USA, MS, pneumonia, PE, COPD, DKA, ARF, appy, cholecystitis, CVA, Diverticulitis, Homicidal, Suicidal, threat to staff... and all critical care pts) @ -No Disposition Clinical Impression: Stiff-man syndrome Disposition: ADMITTED IP TO THIS HOSP Referrals: Slade Gonzalez MD [Primary Care Provider] - 1-2 days Time of Disposition: 13:33
[2023-04-08] MEDS ORDERED: HYDROmorphone 1 MG/ML 1 ML SYRINGE IVP STA ×3 (10:45→15:09)
--- NOTE | 2023-04-08 11:54 | CT ---
EXAMINATION TYPE: CT brain cspine wo con CT DLP: 1414.1 mGycm, Automated exposure control for dose reduction was used. DATE OF EXAM: 04/08/2023 11:45 AM COMPARISON: CT brain C-spine 06/02/2022 CLINICAL INDICATION:Female, 42 years old with history of s/p fall. loc. pain; s/p fall, loc pain, hit RT side of head TECHNIQUE: Brain: Multiple axial CT images of the brain were obtained without IV contrast. Cspine: Axial CT images from the skull base to the inferior aspect of T2 we obtained without intraven ous contrast. Coronal and sagittal reformatted images were also reviewed. FINDINGS: Brain: Extra-axial spaces: No abnormal extra-axial fluid collections. Ventricular system: Within normal limits Cerebral parenchyma: No acute intraparenchymal hemorrhage or mass effect. The roblero-white junction is well differentiated. Cerebellum: Unremarkable. Mass effect: No evidence of midline shift. Intracranial vasculature: unremarkable Soft tissues: Normal. Calvarium/osseous structures: No depressed skull fracture. Paranasal sinuses and mastoid air cells: Clear. Visualized orbits: Orbital contents are intact. Cervical spine: Fracture: None. Osseous structures: Multilevel anterior osteophytosis. Vertebral alignment: Within normal limits. Spinal canal/Neural Foramina: No evidence of significant spinal canal narrowing. No evidence for sign ificant neural foraminal stenosis. Neck soft tissues: Prevertebral soft tissues are within normal limits. Other: The airway is patent. The lung apices are clear. Right IJ Mediport catheter partially visualiz ed. IMPRESSION: 1. No acute intracranial process. 2. No evidence of cervical spine fracture. 3. Mild multilevel degenerative disc disease.
[2023-04-08] MEDS ORDERED: ONDANSETRON 4 MG/2 ML VIAL IVP PRN (13:33)
[2023-04-08] MEDS ORDERED: NALOXONE 0.4 MG/ML 1 ML VIAL IV PRN (13:33)
[2023-04-08] MEDS: SODIUM CHLORIDE 0.9% 1,000 ML IV SCH (13:46)
--- NOTE | 2023-04-08 17:51 | P.HPIM ---
History of Present Illness this is a pleasant 42 yo f with past medical history of stiff man syndrome. 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 She follows up with nerve clinic Dr. Kelly. Today she has more spasm in her legs that's why she came to the hospital in severe pain. In the emergency room she surveyed Valium 5 mg IV 2, Dilaudid 1 mg 1, Toradol 50 mg and Norflex. She does still have some significant pain and spasm. There is no labs or imaging ordered and emergency room Review of Systems Review of systems CONSTITUTIONAL: No fever, no malaise, no fatigue. HEENT: No recent visual problems or hearing problems. Denied any sore throat. CARDIOVASCULAR: No orthopnea, PND, no palpitations, no syncope. PULMONARY: No shortness of breath, no cough, no hemoptysis. GASTROINTESTINAL: No diarrhea, no nausea, no vomiting, no abdominal pain. Normoactive bowel sounds. NEUROLOGICAL: No headaches, no weakness, no numbness. HEMATOLOGICAL: Denies any bleeding or petechiae. GENITOURINARY: Denies any burning micturition, frequency, or urgency. MUSCULOSKELETAL/RHEUMATOLOGICAL: Denies any joint pain, swelling. ENDOCRINE: Denies any polyuria or polydipsia. Past Medical History Past Medical History: Asthma, Pneumonia Additional Past Medical History / Comment(s): TACHYCARDIA, peptic ulcers, anemia."HAS BEEN ON VENTILATOR IN PAST D/T SEVERE ASTHMA ATTACK," BULEMIA-STATES GETTING BETTER, CONSTIPATION. HERNIATED DISC, cervical cancer. 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 recent antibiotoc for infection in arm-now resolved per pt, COVID 12/30/20. 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 Surgery on h er cervix for cancer, rt foot surgery(Fx), cysto/lithotripsy , left hip replacement 12/2018, lumbar puncture, cervical biopsy in August @[facility], bone tumor removal Past Anesthesia/Blood Transfusion Reactions: Postoperative Nausea & Vomiting (PONV) Past Psychological History: Anxiety, Depression Smoking Status: Never smoker Past Alcohol Use History: None Reported Past Drug Use History: None Reported - Past Family History Mother Family Medical History: Pneumonia Additional Family Medical History / Comment(s): Mother of pneumonia. Patient's son of brain cancer, last mother and father both liver cancer Son(s) Family Medical History: Cancer Additional Family Medical History / Comment(s): Son of brain cancer. Father Family Medical History: Cancer Additional Family Medical History / Comment(s): Liver Cancer. Medications and Allergies Home Medications Medication Instructions Recorded Confirmed Type Omalizumab [Xolair] 300 mg SQ Q30D 07/10/18 04/08/23 History PARoxetine [Paxil] 20 mg PO HS 12/18/19 04/08/23 History Fluticasone Propionate [Flovent 2 puff INHALATION RT-BID 06/13/20 04/08/23 History Hfa 220 mcg] Loratadine [Claritin] 10 mg PO DAILY 06/13/20 04/08/23 History SUMAtriptan succinate [Imitrex] 100 mg PO BID PRN 06/13/20 04/08/23 History Botox Neck Injection 400 mg SQ Q70D 08/30/20 04/08/23 History Albuterol Sulfate [Ventolin HFA] 2 puff INHALATION RT-Q6H PRN 09/30/20 04/08/23 History Cholecalciferol (Vitamin D3) 125 mcg PO DAILY 03/01/22 04/08/23 History [Vitamin D3 (125 MCG = 5,000 IU)] EPINEPHrine (Auto Inject) [Epipen] 0.3 mg IM ONCE PRN 03/01/22 04/08/23 History Panzyga 10% Infusion 1 dose IV Q28D 03/01/22 04/08/23 History Albuterol Nebulized [Ventolin 2.5 mg INHALATION RT-Q6H PRN 12/19/22 04/08/23 History Nebulized] Montelukast [Singulair] 10 mg PO HS 12/19/22 04/08/23 History traZODone HCL [Desyrel] 100 mg PO HS 12/19/22 04/08/23 History Famotidine [Pepcid] 20 mg PO BID #60 tab 12/23/22 04/08/23 Rx Folic Acid 0.5 mg PO DAILY #30 tab 12/23/22 04/08/23 Rx Lactulose [Cephulac] 20 gm PO DAILY PRN #200 ml 12/26/22 04/08/23 Rx oxyCODONE-APAP 10-325MG [Percocet 1 tab PO TID PRN 30 Days #90 tab 03/25/23 04/08/23 Rx 10-325 mg] Cyclobenzaprine [Flexeril] 5 mg PO QID PRN 04/08/23 04/08/23 History Levothyroxine Sodium [Synthroid] 150 mcg PO DAILY 04/08/23 04/08/23 History Metoclopramide [Reglan] 10 mg PO Q8H PRN 04/08/23 04/08/23 History diazePAM [Valium] 5 mg PO BID PRN 04/08/23 04/08/23 History Allergies Allergy/AdvReac Type Severity Reaction Status Date / Time No Known Allergies Allergy Verified 04/08/23 14:12 Physical Exam Vitals: Vital Signs Temp Pulse Resp BP Pulse Ox 04/08/23 10:04 98.4 F 101 H 16 125/97 96 Intake and Output 04/07/23 04/08/23 04/08/23 22:59 06:59 14:59 Other: Weight 65.771 kg GENERAL: The patient is alert and oriented x3, . Well developed, well nourished. HEENT: Pupils are round and equally reacting to light. EOMI. No scleral icterus. No conjunctival pallor. Normocephalic, atraumatic. No pharyngeal erythema. No thyromegaly. CARDIOVASCULAR: S1 and S2 present. No murmurs, rubs, or gallops. PULMONARY: Chest is clear to auscultation, no wheezing , no crackles. ABDOMEN: Soft, nontender, nondistended, normoactive bowel sounds. No palpable organomegaly. -MUSCULOSKELETAL: No joint swelling or deformity. Whole-body spasm including upper and lower extremities EXTREMITIES: No cyanosis, clubbing, or pedal edema. NEUROLOGICAL: Gross neurological examination did not reveal any focal deficits. SKIN: No rashes. no petechiae. Assessment and Plan Assessment: Flareup of stiff man syndrome with spasm of upper or lower extremities and whole-body. On IVIG every month in outpatient setting History of migraine History of kidney stone History of asthma Plan: Continue with pain Medication Dilaudid Valkium for muscle spasm when necessary Continue gentle hydration Neurology and pain service has been consulted from the emergency room Check labs Labs and medication were reviewed.. Continue same treatment. Continue with symptomatic treatment. Resume home medication. Monitor labs and vitals. DVT and GI prophylaxis. Further recommendations as per clinical course of the patient DVT prophylaxis: Subcutaneous heparin GI Prophylaxis: Pepcid Prognosis is guarded
[2023-04-08 18:11] LABS: ALT 13 U/L (4-34); AST 27 U/L (14-36); African American GFR (CKD) 75 (>60 ml/min/1.73 sqM); Albumin 3.6 g/dL (3.5-5.0); Albumin/Globulin Ratio 1.1; Alkaline Phosphatase 51 U/L (38-126); Anion Gap 8 mmol/L; Bilirubin,Unconjugated 0.5 mg/dL (0.0-1.1); Blood Urea Nitrogen 8 mg/dL (7-17); Calcium 8.4 mg/dL (8.4-10.2); Carbon Dioxide 25 mmol/L (22-30); Chloride 107 mmol/L (98-107); Globulin 3.2 g/dL; Glucose 84 mg/dL (74-99); Magnesium 1.7 mg/dL (1.6-2.3); Non-African American GFR(CKD) 65 (>60 ml/min/1.73 sqM); Potassium 3.5 mmol/L (3.5-5.1); Sodium 140 mmol/L (137-145); Total Bilirubin 0.6 mg/dL (0.2-1.3); Total Protein 6.8 g/dL (6.3-8.2)
[2023-04-08 18:12] LABS: Basophils % (A) 1 %; Eosinophils # (A) 0.1 k/uL (0-0.7); Eosinophils % (A) 2 %; HCT 33.7 % (34.0-46.0); Lymphocytes # (A) 1.7 k/uL (1.0-4.8); Lymphocytes % (A) 41 %; MCHC 35.7 g/dL (31.0-37.0); MCV 95.3 fL (80.0-100.0); Mean Platelet Volume 7.5; Monocytes # (A) 0.2 k/uL (0-1.0); Monocytes % (A) 6 %; Neutrophils # (A) 2.1 k/uL (1.3-7.7); Neutrophils % (A) 50 %; Platelet Count 214 k/uL (150-450); RBC 3.54 m/uL (3.80-5.40); WBC 4.3 k/uL (3.8-10.6)
[2023-04-08 18:29] LABS: INR 1.2 (<1.2); Prothrombin Time 12.4 sec (10.0-12.5)
[2023-04-08] MEDS: HYDROmorphone 1 MG/ML 1 ML SYRINGE IVP PRN (20:08)
[2023-04-08] MEDS: FAMOTIDINE 20 MG/2 ML VIAL IV SCH (20:09)
[2023-04-08] MEDS: HEPARIN SODIUM,PORCINE 5,000 UNIT/ML 1 ML VIAL SQ SCH (20:09)
[2023-04-08] MEDS ORDERED: SUMAtriptan succinate 50 MG TAB PO PRN (20:27)
[2023-04-08] MEDS ORDERED: ALBUTEROL HFA INHALER INHALATION PRN (20:27)
[2023-04-08] MEDS ORDERED: oxyCODONE-APAP 10-325MG 1 EACH TAB PO PRN (20:27)
[2023-04-08] MEDS ORDERED: ALBUTEROL NEBULIZED 2.5 MG/3 ML INHALATION PRN (20:27)
[2023-04-08] MEDS ORDERED: CYCLOBENZAPRINE 5 MG TAB PO PRN (20:27)
[2023-04-08 20:41] LABS: HCG,Qualitative Serum Not Detected
[2023-04-08] MEDS: MONTELUKAST 10 MG TAB PO SCH (21:14)
[2023-04-08] MEDS: PARoxetine 20 MG TAB PO SCH (21:14)
[2023-04-08] MEDS: traZODone HCL 50 MG TAB PO SCH (21:14)
[2023-04-09] MEDS: HYDROmorphone 1 MG/ML 1 ML SYRINGE IVP PRN ×6 (00:06→19:55)
[2023-04-09] MEDS: SODIUM CHLORIDE 0.9% 1,000 ML IV SCH ×2 (04:06→18:33)
[2023-04-09] MEDS: HEPARIN SODIUM,PORCINE 5,000 UNIT/ML 1 ML VIAL SQ SCH ×2 (08:40→19:56)
[2023-04-09] MEDS: FAMOTIDINE 20 MG/2 ML VIAL IV SCH (08:40)
[2023-04-09] MEDS: FLUTICASONE 220 MCG INHALER INHALATION SCH ×2 (09:05→19:53)
[2023-04-09] MEDS ORDERED: methylPREDNISolone SOD SUCCI 125 MG/2 ML VIAL IV SCH (12:45)
[2023-04-09] MEDS: methylPREDNISolone SOD SUCCIN 250 MG in SODIUM CHLORIDE 0.9% 100 ML IVPB SCH ×2 (14:41→20:07)
--- NOTE | 2023-04-09 14:58 | P.CNNES ---
History of Present Illness Consult date: 04/09/23 Requesting physician: Hola Santos Reason for Consult: Stiff man syndrome History of Present Illness: Patient is a 42-year-old female, known to neurology service from previous admission to the hospital with history of stiff person syndrome, asthma, GERD, seizure, hypothyroidism, bulimia, herniated disc, cervical cancer, migraines, cervical dystonia, anxiety, depression came to the hospital yesterday at 9:58 AM by ambulance with worsening spasms. As per EMS flow sheet, [facility] arrived for patient to have possible seizure. When they arrive patient was alert and oriented 4. Family mentioned that patient fell hitting head due to muscle spasm. Patient stated that she has history of stiff person syndrome and that causes muscle spasms and contractions throughout the body. Patient's assessment revealed laceration to the right side of her head with bleeding stopped prior to EMS arrival. Patient was still having muscle contractions at the time EMS arrived. Patient was given Versed 5 mg IV by the EMS and Zofran for nausea and was brought to the hospital. Patient states that she started having symptoms of stiff person syndrome in 2016. At first it was felt that she may have MS. Patient was diagnosed with stiff person syndrome in December 2021 after she was found to have elevated deondre antibodies and abnormal EMG testing. She follows up with neurologist at [facility]. Patient was started on IVIG in February 2022. She receives IVIG 45 g/d for 2 consecutive days of a week (Saturday and Saturday), once every month. Patient says that IVIG has helped with her total body spasms, but she still gets spasms every day but those are manageable and involves some part of t he body like feet, leg, left more than right, sometimes face. Patient usually takes Percocet 10 mg and Valium 5 mg as needed for spasms. She was previously given fentanyl but produces too much drowsiness. Patient states that she has been hospitalized only 3 times this year for the spasms. She is to get it about 4 times a week before IVIG was started but now it has much improved. Patient states that it affects her swallowing and she sometimes chokes. Patient says that she has been falling a lot, the legs feels heavy. 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 She used to be in the ER all the time, but now has much improved. Patient's last IVIG treatment was 03/18/2023 and 03/19/2023, and the next dose is due on 04/16/2023 and 04/17/2023. Patient states she does have a walker and a wheelchair. She does not use cane anymore. Patient also gets Botox injection 400 Units for cervical dystonia by Dr. Grant with [facility]. Her blood test shows normal WBC, CBC, PT, Chem-20, with creatinine 1.06. CT head revealed no acute intracranial process. No evidence of cervical spine fracture. Mild multilevel degenerative disc disease. Patient's last MRI of the brain from 07/01/2019 reveals single small white matter high increased signal in left frontal lobe slightly increased in size compared to old exam. 3 mm similar focus right posterior frontal lobe white matter unchanged. Otherwise negative exam. Patient has never smoked, does not drink alcohol, denies hypertension or diabetes. 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 P lizzy has long-standing history of asthma, requiring multiple, numerous times use of steroids. 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 History of meningitis when she was [age] year old. Patient had elevated DEONDRE antibodies 22 (< 5) on 12/20/2022. Her B12 was 460 on 12/20/2022, with folate 6.90. TSH was mildly elevated at 8.13 on 12/19/2022. Patient had a normal CSF on 07/01/2019 with 3 RBCs, 0 WBC, proteins 23, glucose 51. Patient previously had normal rheumatoid factor, dsDNA, complements C3 and C4 whereas CH 50 was slightly elevated 150/144. Hepatitis, HIV negative. KEVIN negative. CCP negative. Patient currently takes Xolair 300 mg subcu every 30 days, Paxil 20 mg, Imitrex, Botox injections 400 units subcu every 70 days, vitamin D, Panzyga 10% infusion IV every 28 days, Singulair, trazodone 100 mg at bedtime, folic acid 0.5 mg daily, Pepcid, lactulose, Flexeril and Reglan. Review of Systems Constitutional: Denies chills, Denies fever Eyes: denies blurred vision, denies decreased vision, denies pain Ears: deny: decreased hearing, ear discharge Ears, nose, mouth and throat: Reports headache, Denies odynophagia (Choking sometimes due to spasms), Denies sore throat Cardiovascular: Denies chest pain, Denies shortness of breath Respiratory: Denies cough, Denies excessive sputum Gastrointestinal: Denies abdominal pain, Denies diarrhea, Denies nausea, Denies vomiting Genitourinary: Denies dysuria, Denies hematuria Musculoskeletal: Reports frequent falls (Due to stumbles), Reports low back pain, Reports morning stiffness, Reports muscle cramps, Reports myalgias, Reports neck pain, Reports neck stiffness Integumentary: Denies pruritus, Denies rash Neurological: Reports as per HPI Psychiatric: Reports anxiety, Reports depression Endocrine: Reports fatigue, Denies weight change Hematologic/Lymphatic: Reports easy bruising, Denies easy bleeding Past Medical History Past Medical History: Asthma, Pneumonia Additional Past Medical History / Comment(s): TACHYCARDIA, peptic ulcers, anem ia."HAS BEEN ON VENTILATOR IN PAST D/T SEVERE ASTHMA ATTACK," BULEMIA-STATES GETTING BETTER, CONSTIPATION. HERNIATED DISC, cervical cancer. 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 recent antibiotoc for infection in arm-now resolved per pt, COVID 12/30/20. 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 Surgery on her cervix for cancer, rt foot surgery(Fx), cysto/lithotripsy , left hip replacement 12/2018, lumbar puncture, cervical biopsy in August @[facility], bone tumor removal Past Anesthesia/Blood Transfusion Reactions: Postoperative Nausea & Vomiting (PONV) Past Psychological History: Anxiety, Depression Smoking Status: Never smoker Past Alcohol Use History: None Reported Past Drug Use History: None Reported - Past Family History Mother Family Medical History: Pneumonia Additional Family Medical History / Comment(s): Mother of pneumonia. Patient's son of brain cancer, last mother and father both liver cancer Son(s) Family Medical History: Cancer Additional Family Medical History / Comment(s): Son of brain cancer. Father Family Medical History: Cancer Additional Family Medical History / Comment(s): Liver Cancer. Medications and Allergies Home Medications Medication Instructions Recorded Confirmed Type Omalizumab [Xolair] 300 mg SQ Q30D 07/10/18 04/08/23 History PARoxetine [Paxil] 20 mg PO HS 12/18/19 04/08/23 History Fluticasone Propionate [Flovent 2 puff INHALATION RT-BID 06/13/20 04/08/23 History Hfa 220 mcg] Loratadine [Claritin] 10 mg PO DAILY 06/13/20 04/08/23 History SUMAtriptan succinate [Imitrex] 100 mg PO BID PRN 06/13/20 04/08/23 History Botox Neck Injection 400 mg SQ Q70D 08/30/20 04/08/23 History Albuterol Sulfate [Ventolin HFA] 2 puff INHALATION RT-Q6H PRN 09/30/20 04/08/23 History Cholecalciferol (Vitamin D3) 125 mcg PO DAILY 03/01/22 04/08/23 History [Vitamin D3 (125 MCG = 5,000 IU)] EPINEPHrine (Auto Inject) [Epipen] 0.3 mg IM ONCE PRN 03/01/22 04/08/23 History Panzyga 10% Infusion 1 dose IV Q28D 03/01/22 04/08/23 History Albuterol Nebulized [Ventolin 2.5 mg INHALATION RT-Q6H PRN 12/19/22 04/08/23 History Nebulized] Montelukast [Singulair] 10 mg PO HS 12/19/22 04/08/23 History traZODone HCL [Desyrel] 100 mg PO HS 12/19/22 04/08/23 History Famotidine [Pepcid] 20 mg PO BID #60 tab 12/23/22 04/08/23 Rx Folic Acid 0.5 mg PO DAILY #30 tab 12/23/22 04/08/23 Rx Lactulose [Cephulac] 20 gm PO DAILY PRN #200 ml 12/26/22 04/08/23 Rx oxyCODONE-APAP 10-325MG [Percocet 1 tab PO TID PRN 30 Days #90 tab 03/25/23 04/08/23 Rx 10-325 mg] Cyclobenzaprine [Flexeril] 5 mg PO QID PRN 04/08/23 04/08/23 History Levothyroxine Sodium [Synthroid] 150 mcg PO DAILY 04/08/23 04/08/23 History Metoclopramide [Reglan] 10 mg PO Q8H PRN 04/08/23 04/08/23 History diazePAM [Valium] 5 mg PO BID PRN 04/08/23 04/08/23 History Allergies Allergy/AdvReac Type Severity Reaction Status Date / Time No Known Allergies Allergy Verified 04/08/23 14:12 Physical Examination - Vital Signs Vital Signs: Vital Signs Temp Pulse Pulse Resp BP BP Pulse Ox 04/09/23 07:15 97.7 F 71 17 115/79 99 04/09/23 02:00 98.1 F 88 16 116/78 96 04/08/23 20:00 97.9 F 83 16 112/72 98 04/08/23 17:00 97.9 F 78 16 129/88 99 04/08/23 16:00 81 18 118/73 93 L 04/08/23 15:00 76 17 111/69 94 L 04/08/23 14:00 112 H 18 198/96 107 H 04/08/23 13:00 90 18 132/82 97 Intake and Output 04/08/23 04/09/23 04/09/23 22:59 06:59 14:59 Intake Total 100 180 Balance 100 180 Intake: Oral 100 180 Other: Voiding Method Bedpan # Voids 2 2 Patient is a middle aged female, who is laying comfortably in the bed at this time. Patient is alert awake oriented to time place and person. Speech and language functions are normal. Patient can name and repeat very well. No aphasia or d ysarthria. Attention, concentration and fund of knowledge is adequate. Patient has a slight bruise over the right forehead and right cheek region from recent fall. On cranial nerve examination, pupils are equal, round and reacting to light, visual cervantes are full on confrontation, with no neglect on double simultaneous stimulation. Extraocular muscles are intact with no nystagmus. Face is sym metric, tongue protrudes to the midline. Palatal elevation and sensation normal, hearing and shoulder shrug normal, facial sensation normal. 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 Patient is holding her feet and toes stiff, but the strength appears normal. Hip flexion patient was very cautious because of soreness. Deep tendon reflexes are symmetric 2+ in the arms and biceps and brac hioradialis, 3 at the knees, 2 ankles and plantars are flat. Patient is holding her ankles and toes stiff. Sensory to touch is equal with no neglect on double simultaneous stimulation. Cerebellar function showed no ataxia for [id number] testing. No dysdiadochokinesia. No ataxia for [id number] testing on either side. Tone and bulk of muscles normal. Gait deferred.. On general examination, there is no carotid bruit or murmur, S1-S2 audible. Chest is clear on consultation. Abdomen is soft nontender. No organomegaly, bowel sounds present. Peripheral pulses are present. No edema. Patient apparently developed spasm in front of me, which started in the arms, and then the body, and then went to the lower limbs. She was moaning, groaning, trying with the spasm, and the body was stiff, rigid almost dystonic all over. She was curled up on her right side. Results - Laboratory Findings CBC and BMP: 04/08/23 17:42 04/08/23 17:42 Abnormal Lab Findings: Abnormal Labs 04/08/23 04/08/23 04/08/23 17:42 17:42 17:42 RBC 3.54 L Hct 33.7 L INR 1.2 H Creatinine 1.06 H Assessment and Plan Assessment: 42-year-old female with 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 * Patient developed recent exacerbation with body spasms, a fall producing bruising over the right forehead cheek region. No obvious triggers identified. * Asthma * Seizure * Hypothyroidism * Hx of Bulimia * Herniated disc * Degenerative disc disease * Cervical dystonia, gets Botox for it. * History of left hip AVN, status post arthroplasty age 38 Plan: * Patient has developed possible exacerbation of her stiff person syndrome. * Patient is requesting Solu-Medrol, and we will give her Solu-Medrol 250 mg every 12 hours IV push. * Patient receives Valium and Dilaudid 1 mg every 3 hours as needed for breakthrough spasms. * We will check EEG to rule out any epileptiform activity. * We will follow clinically. Thank you for the consult.
--- NOTE | 2023-04-09 15:39 | P.PN ---
Subjective this is a pleasant 42 yo f with past medical history of stiff man syndrome. 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 She follows up with nerve clinic Dr. Kelly. Today she has more spasm in her legs that's why she came to the hospital in severe pain. In the emergency room she surveyed Valium 5 mg IV 2, Dilaudid 1 mg 1, Toradol 50 mg and Norflex. She does still have some significant pain and spasm. There is no labs or imaging ordered and emergency room 04/09/2023 patient still getting severe whole-body spasm related to her stiff man syndrome, she was very distress frustrated and crying, however she is not willing to give up and she continue to be treated Dilaudid and Valium she said are helping her but they don't last long. Today patient was started on IV Solu-Medrol to 50 mg twice a day Also pain management consult is requested Objective - Vital Signs Vital signs: Vital Signs Temp 97.7 F 04/09/23 07:15 Pulse 71 04/09/23 07:15 Resp 17 04/09/23 07:15 BP 115/79 04/09/23 07:15 Pulse Ox 99 04/09/23 07:15 FiO2 Intake & Output 04/08/23 04/09/23 04/09/23 18:59 06:59 18:59 Intake Total 100 180 Balance 100 180 Weight 65.771 kg Intake: Oral 100 180 Other: Voiding Method Bedpan # Voids 2 2 - Exam GENERAL: The patient is alert and oriented x3, not in any acute distress. Well developed, well nourished. HEENT: Pupils are round and equally reacting to light. EOMI. No scleral icterus. No conjunctival pallor. Normocephalic, atraumatic. No pharyngeal erythema. No t hyromegaly. CARDIOVASCULAR: S1 and S2 present. No murmurs, rubs, or gallops. PULMONARY: Chest is clear to auscultation, no wheezing , no crackles. ABDOMEN: Soft, nontender, nondistended, normoactive bowel sounds. No palpable organomegaly. MUSCULOSKELETAL: No joint swelling or deformity. -EXTREMITIES: No cyanosis, clubbing, or pedal edema. Stiff extremities NEUROLOGICAL: Gross neurological examination did not reveal any focal deficits. SKIN: No rashes. no petechiae. - Labs CBC & Chem 7: 04/08/23 17:42 04/08/23 17:42 Labs: Abnormal Lab Results - Last 24 Hours (Table) 04/08/23 04/08/23 04/08/23 Range/Units 17:42 17:42 17:42 RBC 3.54 L (3.80-5.40) m/uL Hct 33.7 L (34.0-46.0) % INR 1.2 H (<1.2) Creatinine 1.06 H (0.52-1.04) mg/dL Assessment and Plan Assessment: Flareup of stiff man syndrome with spasm of upper or lower extremities and whole-body. On IVIG every month in outpatient setting History of migraine History of kidney stone History of asthma Plan: Continue with pain Medication Dilaudid Valium for muscle spasm when necessary Continue gentle hydration IV Solu-Medrol was admitted Neurology and pain service has been consulted from the emergency room Labs and medication were reviewed.. Continue same treatment. Continue with symptomatic treatment. Resume home medication. Monitor labs and vitals. DVT and GI prophylaxis. Further recommendations as per clinical course of the p atient DVT prophylaxis: Subcutaneous heparin GI Prophylaxis: Pepcid Prognosis is guarded
[2023-04-09] MEDS: FAMOTIDINE 20 MG TAB PO SCH (19:56)
[2023-04-09] MEDS: traZODone HCL 50 MG TAB PO SCH (19:56)
[2023-04-09] MEDS: MONTELUKAST 10 MG TAB PO SCH (19:56)
[2023-04-09] MEDS: PARoxetine 20 MG TAB PO SCH (19:56)
[2023-04-10] MEDS: HYDROmorphone 1 MG/ML 1 ML SYRINGE IVP PRN ×6 (01:14→22:04)
[2023-04-10] MEDS: SODIUM CHLORIDE 0.9% 1,000 ML IV SCH ×2 (05:49→17:55)
[2023-04-10] MEDS: HEPARIN SODIUM,PORCINE 5,000 UNIT/ML 1 ML VIAL SQ SCH ×2 (08:08→21:52)
[2023-04-10] MEDS: FAMOTIDINE 20 MG TAB PO SCH ×2 (08:08→21:51)
[2023-04-10] MEDS: methylPREDNISolone SOD SUCCIN 250 MG in SODIUM CHLORIDE 0.9% 100 ML IVPB SCH ×2 (08:08→21:52)
[2023-04-10] MEDS: FLUTICASONE 220 MCG INHALER INHALATION SCH ×2 (08:18→19:57)
--- NOTE | 2023-04-10 10:18 | EEG ---
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 EEG FINDINGS: This is a 21-channel digital EEG recorded with video component, utilizing 10/20 international system with referential and bipolar montages. Background consists of well-developed, moderately well regulated, predominantly mixed 9 to 10 hertz alpha, with some fast frequency beta activity seen in bihemispheric region. Background is posterior dominant and reactive to eye opening and closing. Photic driving response was seen with some flash frequencies. Some dysrhythmic activity with some phase reversals were seen at T5 during this study. These did not appear clearly epileptiform. No electrographic seizures were recorded. Some stage 2 sleep was seen with presence of sleep spindles during middle and later part of the study. IMPRESSION: This is mildly abnormal EEG during wakefulness, drowsiness and brief stage 2 sleep, due to some dysrhythmic activity seen in the left posterior temporal region along with phase reversals, mainly involving T5 electrode, which may suggest underlying cortical dysfunction, although may be related to technical artifact as it was localized mainly to 1 electrode. No definitive epileptiform activity was seen. Clinical correlation is strongly recommended. If your suspicion for seizures is high, suggest prolonged, sleep deprived EEG. MMODL / IJN: [id number] / RY
--- NOTE | 2023-04-10 15:57 | P.PAINPG ---
Objective - Vital Signs Vital signs: Vital Signs Temp 97.7 F 04/10/23 14:00 Pulse 70 04/10/23 14:00 Resp 18 04/10/23 14:00 BP 132/89 04/10/23 14:00 Pulse Ox 95 04/10/23 14:00 FiO2 Intake & Output 04/09/23 04/10/23 04/10/23 18:59 06:59 18:59 Intake Total 360 236 Balance 360 236 Intake: Oral 360 236 Other: Voiding Method Bedpan Bedpan # Voids 2 2 - Labs CBC & Chem 7: 04/08/23 17:42 04/08/23 17:42 PQRS Measure Charge Sheet Comment: HISTORY OF PRESENT ILLNESS: A 42 yr old inpatient female as a referral from Dr Mitch taylor to our service presents today w severe neck pain secondary to fall due to acute Stiff Person's Syndrome attack for evaluation. Pt fell at home and hit her head but states she did not lose consciousness. Pt states pain level is provoked at 7/10 in intensity, constant, generalized in the spine, UEs and LEs, predominantly axial, achy/ throbbing in character without shooting pain. Pain is alleviated by medications (Dilaudid 0.5mg IVP q3h prn, Percocet 10/325mg PO TID, Elavil 100mg PO BID, Narcan prn), repositioning and rest. She no longer takes Flexeril which was substituted w Valium 5mg PO BID. She is currently in Solumedrol IV which pt states it is improving her ability to move. She states that today she feels like she is taking a turn for the better and that the attacks occur about 4 times per year. 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 Son- Brain CA. Fa- Liver CA All: See list Meds: See list REVIEW OF ORGAN SYSTEMS: CONSTITUTIONAL: No fevers or chills. No recent weight loss. NEUROLOGICAL: + numbness and tingling along the distal extremities. No seizure disorders or headaches. MUSCULOSKELETAL: + pain PSYCHIATRIC: Denies current depression or suicidal thoughts. Physical Examinations : Constitutional : Cooperative , not in acute distress . Neurologic : Cranial nerve II to XII intact. No focal neurological deficits. Psychiatric : alert & oriented x 3. Matching mood & appropriate affect. Judgment & insight intact. Musculoskeletal : Cervical Spine Motor strength in the deltoid and biceps: Normal right side. Normal Left side Motor strength biceps and the wrist extensors: Normal right side . Normal left side Motor strength in the triceps muscle: Normal right side. Normal left side Deep tendon reflexes: Normal at the biceps. Normal at Brachioradialis. Normal at triceps Vertebral body tenderness to deep palpation over Cervical facet loading test: positive bilaterally Spurling test: positive bilaterally Neck distraction test: positive bilaterally Valencia sign: positive bilaterally Lumbar spine Motor strength lower extremities ,thigh and legs 5/5 Right side , 5/5 Left side Deep tendon reflexes : Normal Knee Jerk. Normal Ankle Jerk Vertebral body tenderness over Keene Test positive Lumbar facet Loading Test: positive Right / positive Left Range of motion of the lumbar spine Flexion 30 degrees, extension 10 degrees Straight Leg Raise test: Left/ Right positive at degree Mary test: positive right / positive left. Severe tenderness over the Sacroiliac joint on the Right / Left sides Gaenslen test: positive bilaterally Seated flexion test: positive bilate rally. Sacral spine : Severe tenderness over the Sacroiliac joint: right side / left side Range of motion: Flexion of the lumbar spine <60 degrees Range of motion: Extension of the lumbar spine <20 degrees Gaenslen's Test positive Mary test: positive right side / left side Thigh Thrust Test Sacral Thrust Test Assessment/ Plan : Stiff Person Syndrome Follow up in the Pain Clinic upon discharge. Pt stated she doesn't like taking Fentanyl as it affects her concentration when taking care of her children. All questions answered. I have spent greater than 30 minutes on patient care today. Dr Kelly was available by phone for the evaluation of this patient. The time was used to review the medical records including relevant urine studies and Prescription history (MAPs), review of the available imaging, evaluation and examination of the patient, coordination of care with the medical staff and if applicable referring physicians, as well as creation of the medical record - Pain Location Generalized Non-Pharmacological Interventions: Darkened Room, Distraction, Emotional/Spiritual Support, Environmental Control, Position/Reposition, Reduce Environmental Stimuli, Relaxation Technique Pharmacological Interventions: Discuss Pain Med Options, PRN Medication Pain Comment: see MAR PQRS Narrative: Smoking Status Never smoker Narcotic Agreement Date Signed 02/05/22 Blood Pressure [Left Arm] 132/89 Blood Pressure [Right Arm] 151/98 Blood Pressure 118/73 Pain Intensity [Generalized] 8 Pain Intensity 8 Pain Scale Used Numeric (1 - 10) Scale Used Numeric (1 - 10) Hx Alcohol Use (MH) No Home Medications: Ambulatory Orders Omalizumab [Xolair] 300 mg SQ Q30D 07/10/18 PARoxetine [Paxil] 20 mg PO HS 12/18/19 Fluticasone Propionate [Flovent Hfa 220 mcg] 2 puff INHALATION RT-BID 06/13/20 Loratadine [Claritin] 10 mg PO DAILY 06/13/20 SUMAtriptan succinate [Imitrex] 100 mg PO BID PRN 06/13/20 Botox Neck Injection 400 mg SQ Q70D 08/30/20 Albuterol Sulfate [Ventolin HFA] 2 puff INHALATION RT-Q6H PRN 09/30/20 Cholecalciferol (Vitamin D3) [Vitamin D3 (125 MCG = 5,000 IU)] 125 mcg PO DAILY 03/01/22 EPINEPHrine (Auto Inject) [Epipen] 0.3 mg IM ONCE PRN 03/01/22 Panzyga 10% Infusion 1 dose IV Q28D 03/01/22 Albuterol Nebulized [Ventolin Nebulized] 2.5 mg INHALATION RT-Q6H PRN 12/19/22 Montelukast [Singulair] 10 mg PO HS 12/19/22 traZODone HCL [Desyrel] 100 mg PO HS 12/19/22 Famotidine [Pepcid] 20 mg PO BID #60 tab 12/23/22 Folic Acid 0.5 mg PO DAILY #30 tab 12/23/22 Lactulose [Cephulac] 20 gm PO DAILY PRN #200 ml 12/26/22 oxyCODONE-APAP 10-325MG [Percocet 10-325 mg] 1 tab PO TID PRN 30 Days #90 tab 03/25/23 Cyclobenzaprine [Flexeril] 5 mg PO QID PRN 04/08/23 Levothyroxine Sodium [Synthroid] 150 mcg PO DAILY 04/08/23 Metoclopramide [Reglan] 10 mg PO Q8H PRN 04/08/23 diazePAM [Valium] 5 mg PO BID PRN 04/08/23 Controlled Substance Measures - Controlled Substance Measures Is patient prescribed a controlled substance at discharge?: No
[2023-04-10] MEDS: traZODone HCL 50 MG TAB PO SCH (21:52)
[2023-04-10] MEDS: PARoxetine 20 MG TAB PO SCH (21:52)
[2023-04-10] MEDS: MONTELUKAST 10 MG TAB PO SCH (21:52)
[2023-04-11] MEDS: HYDROmorphone 1 MG/ML 1 ML SYRINGE IVP PRN ×4 (01:31→21:13)
--- NOTE | 2023-04-11 06:33 | P.PN ---
Subjective Date of service for this count is 04/10/2023 this is a pleasant 42 yo f with past medical history of stiff man syndrome. Migraines, kidney stone, asthma She is a known case of stiff man syndrome that she follows up with [facility] and [place] and follow up with an urologist there, she receives IVIG every month through visiting nurse, she always have some degree of spasm and she got 3-4 flareups per year, she had a similar flareup of her stiff man syndrome about 2 months ago when she was in this hospital from 12/20-12/26. She follows up with nerve clinic Dr. Kelly. Today she has more spasm in her legs that's why she came to the hospital in severe pain. In the emergency room she surveyed Valium 5 mg IV 2, Dilaudid 1 mg 1, Toradol 50 mg and Norflex. She does still have some significant pain and spasm. There is no labs or imaging ordered and emergency room 04/09/2023 patient still getting severe whole-body spasm related to her stiff man syndrome, she was very distress frustrated and crying, however she is not willing to give up and she continue to be treated Dilaudid and Valium she said are helping her but they don't last long. Today patient was started on IV Solu-Medrol to 50 mg twice a day Also pain management consult is requested 04/10/2023 Patient is seen and examined by me at bedside,Ms Pardo from case managers also was available at bedside Patient still reported spasm and pain during the spasm although she admits its improvement compared to the last 2 days since this started off pain medication, benzodiazepine and stereotactic yesterday. No other new complaints. She looks less distressed that yesterday. pain management service evaluated the patient already and the recommendations are noted Objective - Vital Signs Vital signs: Vital Signs Temp 98.2 F 04/11/23 01:32 Pulse 66 04/11/23 01:32 Resp 16 04/11/23 01:32 BP 148/90 04/11/23 01:32 Pulse Ox 95 04/11/23 01:32 FiO2 Intake & Output 04/10/23 04/10/23 04/11/23 06:59 18:59 06:59 Intake Total 354 Balance 354 Intake: Oral 354 Other: Voiding Method Bedpan Bedpan Bedpan # Voids 2 2 1 - Exam GENERAL: The patient is alert and oriented x3, not in any acute distress. Well developed, well nourished. HEENT: Pupils are round and equally reacting to light. EOMI. No scleral icterus. No conjunctival pallor. Normocephalic, atraumatic. No pharyngeal erythema. No thyromegaly. CARDIOVASCULAR: S1 and S2 present. No murmurs, rubs, or gallops. PULMONARY: Chest is clear to auscultation, no wheezing , no crackles. ABDOMEN: Soft, nontender, nondistended, normoactive bowel sounds. No palpable organomegaly. MUSCULOSKELETAL: No joint swelling or deformity. -EXTREMITIES: No cyanosis, clubbing, or pedal edema. Stiff extremities NEUROLOGICAL: Gross neurological examination did not reveal any focal deficits. SKIN: No rashes. no petechiae. - Labs CBC & Chem 7: 04/08/23 17:42 04/08/23 17:42 Assessment and Plan Assessment: Flareup of stiff man syndrome with spasm of upper or lower extremities and whole-body. On IVIG every month in outpatient setting History of migraine History of kidney stone History of asthma Plan: Continue with pain Medication Dilaudid Valium for muscle spasm when necessary Continue gentle hydration IV Solu-Medrol was admitted Neurology and pain service has been consulted from the emergency room Labs and medication were reviewed.. Continue same treatment. Continue with symptomatic treatment. Resume home medication. Monitor labs and vitals. DVT and GI prophylaxis. Further recommendations as per clinical course of the patient DVT prophylaxis: Subcutaneous heparin GI Prophylaxis: Pepcid Prognosis is guarded
[2023-04-11] MEDS: FLUTICASONE 220 MCG INHALER INHALATION SCH ×2 (07:39→18:21)
[2023-04-11] MEDS: FAMOTIDINE 20 MG TAB PO SCH ×2 (09:17→21:13)
[2023-04-11] MEDS: methylPREDNISolone SOD SUCCIN 250 MG in SODIUM CHLORIDE 0.9% 100 ML IVPB SCH ×2 (09:17→21:12)
[2023-04-11] MEDS: PARoxetine 20 MG TAB PO SCH ×2 (09:18→21:13)
[2023-04-11] MEDS: HEPARIN SODIUM,PORCINE 5,000 UNIT/ML 1 ML VIAL SQ SCH ×2 (09:18→21:12)
[2023-04-11] MEDS: SODIUM CHLORIDE 0.9% 1,000 ML IV SCH ×2 (09:19→21:12)
[2023-04-11] MEDS: HYDROmorphone 0.5 MG/0.5 ML SYRINGE IVP PRN ×2 (09:32→12:42)
--- NOTE | 2023-04-11 11:14 | P.PN ---
Subjective Progress Note Date: 04/10/23 Patient was seen for a follow-up. Patient says that she feels better because she underwent physical therapy, and then she took a shower. She just feels very tired, lot of pain, and she is very concerned if she is to get into an attack of muscle spasms. Objective - Vital Signs Vital signs: Vital Signs Temp 98.0 F 04/10/23 07:10 Pulse 76 04/10/23 07:10 Resp 16 04/10/23 07:10 BP 151/98 04/10/23 07:10 Pulse Ox 97 04/10/23 07:10 FiO2 Intake & Output 04/09/23 04/10/23 04/10/23 18:59 06:59 18:59 Intake Total 360 236 Balance 360 236 Intake: Oral 360 236 Other: Voiding Method Bedpan Bedpan # Voids 2 2 - Exam Patient's mental status, speech and language functions are normal. Cranial nerves are normal. Motor strength testing deferred because of concern about triggering muscle spasm. 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 * Patient developed recent exacerbation with body spasms, a fall producing brui sing over the right forehead cheek region. No obvious triggers identified. * Asthma * Seizure * Hypothyroidism * Hx of Bulimia * Herniated disc * Degenerative disc disease * Cervical dystonia, gets Botox for it. * History of left hip AVN, status post arthroplasty age 38 Plan: * Patient has developed possible exacerbation of her stiff person syndrome. * Patient is requesting Solu-Medrol, and we will give her Solu-Medrol 250 mg every 12 hours IV push to be given for 2-3 days. * Patient receives Valium and Dilaudid 1 mg every 3 hours as needed for breakthrough spasms. * EEG was performed, which was mildly abnormal due to some dysrhythmic activity seen in the left posterior temporal region along with phase reversals, mainly involving T5 electrode, which may suggest underlying cortical dysfunction although may be related to technical artifact. No definitive epileptiform activity was seen. Clinical correlation is strongly recommended. If your suspicion of seizures is high, suggest prolonged, sleep deprived EEG. * Patient is scheduled for IVIG with her infusion Company outpatient on 04/16/2023 and 04/17/2023. If the spasms persist, we may give a booster dose of 45 g in the hospital. * If patient remains stable, may be clear for discharge in the next 1-2 days.
[2023-04-11] MEDS: MONTELUKAST 10 MG TAB PO SCH (21:13)
[2023-04-11] MEDS: traZODone HCL 50 MG TAB PO SCH (21:13)
--- NOTE | 2023-04-11 22:44 | P.PN ---
Subjective Date of service for this count is 04/10/2023 this is a pleasant 42 yo f with past medical history of stiff man syndrome. Migraines, kidney stone, asthma She is a known case of stiff man syndrome that she follows up with [facility] and [place] and follow up with an urologist there, she receives IVIG every month through visiting nurse, she always have some degree of spasm and she got 3-4 flareups per year, she had a similar flareup of her stiff man syndrome about 2 months ago when she was in this hospital from 12/20-12/26. She follows up with nerve clinic Dr. Kelly. Today she has more spasm in her legs that's why she came to the hospital in severe pain. In the emergency room she surveyed Valium 5 mg IV 2, Dilaudid 1 mg 1, Toradol 50 mg and Norflex. She does still have some significant pain and spasm. There is no labs or imaging ordered and emergency room 04/09/2023 patient still getting severe whole-body spasm related to her stiff man syndrome, she was very distress frustrated and crying, however she is not willing to give up and she continue to be treated Dilaudid and Valium she said are helping her but they don't last long. Today patient was started on IV Solu-Medrol to 50 mg twice a day Also pain management consult is requested 04/10/2023 Patient is seen and examined by me at bedside,Ms Pardo from shelter case manager also was available at bedside Patient still reported spasm and pain during the spasm although she admits its improvement compared to the last 2 days since this started off pain medication, benzodiazepine and stereotactic yesterday. No other new complaints. She looks less distressed that yesterday. pain management service evaluated the patient already and the recommendations are noted 04/11/2023 patient looks her pain and spasm better controlled today although not completely resolved and still happening this morning However patient looks more relaxed but more sleepy as well because of high frequency of Valium Continue with pain medication Check creatinine tomorrow and labs Objective - Vital Signs Vital signs: Vital Signs Temp 98.5 F 04/11/23 07:49 Pulse 59 L 04/11/23 08:00 Resp 12 04/11/23 08:00 BP 164/98 04/11/23 07:49 Pulse Ox 92 L 04/11/23 07:49 FiO2 Intake & Output 04/10/23 04/11/23 04/11/23 18:59 06:59 18:59 Intake Total 354 Balance 354 Intake: Oral 354 Other: Voiding Method Bedpan Bedpan Bedpan # Voids 2 2 2 - Exam GENERAL: The patient is alert and oriented x3, not in any acute distress. Well developed, well nourished. HEENT: Pupils are round and equally reacting to light. EOMI. No scleral icterus. No conjunctival pallor. Normocephalic, atraumatic. No pharyngeal erythema. No thyromegaly. CARDIOVASCULAR: S1 and S2 present. No murmurs, rubs, or gallops. PULMONARY: Chest is clear to auscultation, no wheezing , no crackles. ABDOMEN: Soft, nontender, nondistended, normoactive bowel sounds. No palpable organomegaly. MUSCULOSKELETAL: No joint swelling or deformity. -EXTREMITIES: No cyanosis, clubbing, or pedal edema. Stiff extremities NEUROLOGICAL: Gross neurological examination did not reveal any focal deficits. SKIN: No rashes. no petechiae. - Labs CBC & Chem 7: 04/08/23 17:42 04/08/23 17:42 Assessment and Plan Assessment: Flareup of stiff man syndrome with spasm of upper or lower extremities and whole-body. On IVIG every month in outpatient setting History of migraine History of kidney stone History of asthma Plan: Continue with pain Medication Dilaudid Valium for muscle spasm when necessary Continue gentle hydration IV Solu-Medrol was admitted Neurology and pain service has been consulted from the emergency room Labs and medication were reviewed.. Continue same treatment. Continue with symptomatic treatment. Resume home medication. Monitor labs and vitals. DVT and GI prophylaxis. Further recommendations as per clinical course of the patient DVT prophylaxis: Subcutaneous heparin GI Prophylaxis: Pepcid Prognosis is guarded
[2023-04-12] MEDS: HYDROmorphone 1 MG/ML 1 ML SYRINGE IVP PRN ×6 (01:40→20:28)
[2023-04-12] MEDS: FLUTICASONE 220 MCG INHALER INHALATION SCH ×2 (07:49→20:26)
[2023-04-12] MEDS: FAMOTIDINE 20 MG TAB PO SCH ×2 (08:54→20:28)
[2023-04-12] MEDS: HEPARIN SODIUM,PORCINE 5,000 UNIT/ML 1 ML VIAL SQ SCH ×2 (08:54→20:28)
[2023-04-12] MEDS: methylPREDNISolone SOD SUCCIN 250 MG in SODIUM CHLORIDE 0.9% 100 ML IVPB SCH ×2 (09:40→20:28)
[2023-04-12 11:58] LABS: BUN/Creat Ratio 13.44 Ratio (12.00-20.00); Blood Urea Nitrogen 12.1 mg/dL (9.0-27.0); Calcium 8.9 mg/dL (8.7-10.3); Carbon Dioxide 20.7 mmol/L (21.6-31.8); Chloride 107 mmol/L (96-109); Glucose 127 mg/dL (70-110); Potassium 4.5 mmol/L (3.5-5.5); Sodium 140 mmol/L (135-145)
[2023-04-12] MEDS: SODIUM CHLORIDE 0.9% 1,000 ML IV SCH (16:01)
[2023-04-12] MEDS: SENNOSIDES 8.6 MG TAB PO SCH ×2 (16:06→20:28)
[2023-04-12] MEDS: DOCUSATE 100 MG CAP PO SCH ×2 (16:06→20:28)
[2023-04-12] MEDS: PARoxetine 20 MG TAB PO SCH (20:28)
[2023-04-12] MEDS: traZODone HCL 50 MG TAB PO SCH (20:28)
[2023-04-12] MEDS: MONTELUKAST 10 MG TAB PO SCH (20:28)
--- NOTE | 2023-04-12 23:29 | P.PN ---
Subjective Date of service for this count is 04/10/2023 this is a pleasant 42 yo f with past medical history of stiff man syndrome. Migraines, kidney stone, asthma She is a known case of stiff man syndrome that she follows up with [facility] and [place] and follow up with an urologist there, she receives IVIG every month through visiting nurse, she always have some degree of spasm and she got 3-4 flareups per year, she had a similar flareup of her stiff man syndrome about 2 months ago when she was in this hospital from 12/20-12/26. She follows up with nerve clinic Dr. Kelly. Today she has more spasm in her legs that's why she came to the hospital in severe pain. In the emergency room she surveyed Valium 5 mg IV 2, Dilaudid 1 mg 1, Toradol 50 mg and Norflex. She does still have some significant pain and spasm. There is no labs or imaging ordered and emergency room 04/09/2023 patient still getting severe whole-body spasm related to her stiff man syndrome, she was very distress frustrated and crying, however she is not willing to give up and she continue to be treated Dilaudid and Valium she said are helping her but they don't last long. Today patient was started on IV Solu-Medrol to 50 mg twice a day Also pain management consult is requested 04/10/2023 Patient is seen and examined by me at bedside,Ms Pardo from comp field case manager also was available at bedside Patient still reported spasm and pain during the spasm although she admits its improvement compared to the last 2 days since this started off pain medication, benzodiazepine and stereotactic yesterday. No other new complaints. She looks less distressed that yesterday. pain management service evaluated the patient already and the recommendations are noted 04/11/2023 patient looks her pain and spasm better controlled today although not completely resolved and still happening this morning However patient looks more relaxed but more sleepy as well because of high frequency of Valium Continue with pain medication Check creatinine tomorrow and labs 04/12/2023 Patient states he still has spasm but is improving, she is drowsy, No new complaint Daughter at bedside and all questions were answered to their satisfaction Risk of benzodiazepine and narcotics are explained for the patient and daughter including but not limited to the risk of respiratory depression and/or and she verbalized understanding and wants to continue taking.. Objective - Vital Signs Vital signs: Vital Signs Temp 98.3 F 04/12/23 19:11 Pulse 72 04/12/23 19:11 Resp 16 04/12/23 19:11 BP 160/89 04/12/23 19:11 Pulse Ox 96 04/12/23 19:11 FiO2 Intake & Output 04/12/23 04/12/23 04/13/23 06:59 18:59 06:59 Intake Total 480 Balance 480 Intake: Oral 480 Other: Voiding Method Bedpan Bedpan # Voids 2 1 - Exam GENERAL: The patient is alert and oriented x3, not in any acute distress. Well developed, well nourished. HEENT: Pupils are round and equally reacting to light. EOMI. No scleral icterus. No conjunctival pallor. Normocephalic, atraumatic. No pharyngeal erythema. No thyromegaly. CARDIOVASCULAR: S1 and S2 present. No murmurs, rubs, or gallops. PULMONARY: Chest is clear to auscultation, no wheezing , no crackles. ABDOMEN: Soft, nontender, nondistended, normoactive bowel sounds. No palpable organomegaly. MUSCULOSKELETAL: No joint swelling or deformity. -EXTREMITIES: No cyanosis, clubbing, or pedal edema. Stiff extremities NEUROLOGICAL: Gross neurological examination did not reveal any focal deficits. SKIN: No rashes. no petechiae. - Labs CBC & Chem 7: 04/08/23 17:42 04/12/23 05:45 Labs: Abnormal Lab Results - Last 24 Hours (Table) 04/12/23 Range/Units 05:45 Carbon Dioxide 20.7 L (21.6-31.8) mmol/L Anion Gap 12.30 H (4.00-12.00) mmol/L Glucose 127 H (70-110) mg/dL Assessment and Plan Assessment: Flareup of stiff man syndrome with spasm of upper or lower extremities and whole-body. On IVIG every month in outpatient setting History of migraine History of kidney stone History of asthma Plan: Continue with pain Medication Dilaudid Valium for muscle spasm when necessary Continue gentle hydration IV Solu-Medrol was admitted Neurology and pain service has been consulted from the emergency room Labs and medication were reviewed.. Continue same treatment. Continue with symptomatic treatment. Resume home medication. Monitor labs and vitals. DVT and GI prophylaxis. Further recommendations as per clinical course of the patient DVT prophylaxis: Subcutaneous heparin GI Prophylaxis: Pepcid Prognosis is guarded
[2023-04-13] MEDS: HYDROmorphone 1 MG/ML 1 ML SYRINGE IVP PRN ×7 (00:48→22:00)
[2023-04-13] MEDS: SODIUM CHLORIDE 0.9% 1,000 ML IV SCH ×2 (03:03→15:24)
[2023-04-13] MEDS: FLUTICASONE 220 MCG INHALER INHALATION SCH ×2 (08:51→19:45)
--- NOTE | 2023-04-13 08:53 | P.PN ---
Subjective Progress Note Date: 04/11/23 Patient was seen for a follow-up. Patient says that her legs are hurting. Her upper back is also hurting. She is seeing physical therapist. Patient tells me that she has multiple herniated disks in her back. She follows up with the pain clinic. She has significant arthritis. Patient admits that she had undergone bone density testing 3-4 years ago and was fine. Patient wishes to continue Solu-Medrol 250 mg twice a day. She has not had any major spasms. Objective - Vital Signs Vital signs: Vital Signs Temp 98.0 F 04/11/23 13:30 Pulse 77 04/11/23 14:00 Resp 16 04/11/23 13:30 BP 147/98 04/11/23 14:00 Pulse Ox 96 04/11/23 14:00 FiO2 Intake & Output 04/10/23 04/11/23 04/11/23 18:59 06:59 18:59 Intake Total 354 240 Balance 354 240 Intake: Oral 354 240 Other: Voiding Method Bedpan Bedpan Bedpan # Voids 2 2 2 - Exam Patient's mental status, speech and language functions are normal. Cranial nerves are normal. Motor strength testing deferred because of concern about triggering muscle spasm. 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 * Patient developed recent exacerbation with body spasms, a fall producing bruising over the right forehead cheek region. No obvious triggers identified. * Asthma * Seizure * Hypothyroidism * Hx of Bulimia * Herniated disc * Degenerative disc disease * Cervical dystonia, gets Botox for it. * History of left hip AVN, status post arthroplasty age 38 Plan: * Patient has developed possible exacerbation of her stiff person syndrome. * Patient wishes to continue Solu-Medrol, and we will give her Solu-Medrol 250 mg every 12 hours IV push to be given for 2-3 days. * Patient receives Valium and Dilaudid 1 mg every 3 hours as needed for eduardo kthrough spasms. Suggest tapering down opiates. * EEG was performed, which was mildly abnormal due to some dysrhythmic activity seen in the left posterior temporal region along with phase reversals, mainly involving T5 electrode, which may suggest underlying cortical dysfunction although may be related to technical artifact. No definitive epileptiform activity was seen. Clinical correlation is strongly recommended. If your suspicion of seizures is high, suggest prolonged, sleep deprived EEG. * Patient is scheduled for IVIG with her infusion Company outpatient on 04/16/2023 and 04/17/2023. If the spasms persist, we may give a booster dose of 45 g in the hospital. * Patient's neurologically clear for discharge when pain is under control. Pain management following.
[2023-04-13] MEDS: SENNOSIDES 8.6 MG TAB PO SCH ×2 (08:55→21:48)
[2023-04-13] MEDS: methylPREDNISolone SOD SUCCIN 250 MG in SODIUM CHLORIDE 0.9% 100 ML IVPB SCH ×2 (08:55→21:49)
[2023-04-13] MEDS: DOCUSATE 100 MG CAP PO SCH ×2 (08:56→21:48)
[2023-04-13] MEDS: HEPARIN SODIUM,PORCINE 5,000 UNIT/ML 1 ML VIAL SQ SCH ×2 (08:56→21:49)
[2023-04-13] MEDS: FAMOTIDINE 20 MG TAB PO SCH ×2 (08:56→21:49)
[2023-04-13] MEDS: MELOXICAM 7.5 MG TAB PO SCH (12:31)
[2023-04-13] MEDS: hydrALAZINE HCL 50 MG TAB PO SCH ×2 (15:29→21:48)
--- NOTE | 2023-04-13 20:16 | P.PN ---
Subjective Date of service for this count is 04/10/2023 this is a pleasant 42 yo f with past medical history of stiff man syndrome. Migraines, kidney stone, asthma She is a known case of stiff man syndrome that she follows up with [facility] and [place] and follow up with an urologist there, she receives IVIG every month through visiting nurse, she always have some degree of spasm and she got 3-4 flareups per year, she had a similar flareup of her stiff man syndrome about 2 months ago when she was in this hospital from 12/20-12/26. She follows up with nerve clinic Dr. Kelly. Today she has more spasm in her legs that's why she came to the hospital in severe pain. In the emergency room she surveyed Valium 5 mg IV 2, Dilaudid 1 mg 1, Toradol 50 mg and Norflex. She does still have some significant pain and spasm. There is no labs or imaging ordered and emergency room 04/09/2023 patient still getting severe whole-body spasm related to her stiff man syndrome, she was very distress frustrated and crying, however she is not willing to give up and she continue to be treated Dilaudid and Valium she said are helping her but they don't last long. Today patient was started on IV Solu-Medrol to 50 mg twice a day Also pain management consult is requested 04/10/2023 Patient is seen and examined by me at bedside,Ms Pardo from nurse outreach case manager also was available at bedside Patient still reported spasm and pain during the spasm although she admits its improvement compared to the last 2 days since this started off pain medication, benzodiazepine and stereotactic yesterday. No other new complaints. She looks less distressed that yesterday. pain management service evaluated the patient already and the recommendations are noted 04/11/2023 patient looks her pain and spasm better controlled today although not completely resolved and still happening this morning However patient looks more relaxed but more sleepy as well because of high frequency of Valium Continue with pain medication Check creatinine tomorrow and labs 04/12/2023 Patient states he still has spasm but is improving, she is drowsy, No new complaint Daughter at bedside and all questions were answered to their satisfaction Risk of benzodiazepine and narcotics are explained for the patient and daughter including but not limited to the risk of respiratory depression and/or and she verbalized understanding and wants to continue taking.. 04/13/2023 Patient still improving slowly and gradually, she still gets spasm but less severe Today I talked to the patient and she agrees to lower the dose of Valium 5 down to 3 mg every 4 hours. If she keeps improving we tried to taper her Dilaudid down tomorrow as well Solu-Medrol to 50 mg IV twice daily Patient blood pressure was elevated to 180/99 due to steroid effect, therefore we added hydralazine 50 mg twice a day. Objective - Vital Signs Vital signs: Vital Signs Temp 98.3 F 04/13/23 07:37 Pulse 58 L 04/13/23 07:37 Resp 12 04/13/23 07:37 BP 180/99 04/13/23 07:37 Pulse Ox 96 04/13/23 07:37 FiO2 Intake & Output 04/12/23 04/13/23 04/13/23 18:59 06:59 18:59 Intake Total 480 50 Balance 480 50 Intake: Oral 480 50 Other: Voiding Method Bedpan # Voids 1 - Exam GENERAL: The patient is alert and oriented x3, not in any acute distress. Well developed, well nourished. HEENT: Pupils are round and equally reacting to light. EOMI. No scleral icterus. No conjunctival pallor. Normocephalic, atraumatic. No pharyngeal erythema. No thyromegaly. CARDIOVASCULAR: S1 and S2 present. No murmurs, rubs, or gallops. PULMONARY: Chest is clear to auscultation, no wheezing , no crackles. ABDOMEN: Soft, nontender, nondistended, normoactive bowel sounds. No palpable organomegaly. MUSCULOSKELETAL: No joint swelling or deformity. -EXTREMITIES: No cyanosis, clubbing, or pedal edema. Stiff extremities NEUROLOGICAL: Gross neurological examination did not reveal any focal deficits. SKIN: No rashes. no petechiae. - Labs CBC & Chem 7: 04/08/23 17:42 04/12/23 05:45 Assessment and Plan Assessment: Flareup of stiff man syndrome with spasm of upper or lower extremities and whole-body. On IVIG every month in outpatient setting Hypertension, steroid effect History of migraine History of kidney stone History of asthma Plan: Add hydralazine 50 mg twice a day, try to taper hydralazine down as we taper her steroids down as well Continue with pain Medication Dilaudid Valium for muscle spasm when necessary. Decreased dose 5 mg down to 3 mg and patient agrees Continue gentle hydration IV Solu-Medrol was admitted Neurology and pain service has been consulted from the emergency room Labs and medication were reviewed.. Continue same treatment. Continue with symptomatic treatment. Resume home medication. Monitor labs and vitals. DVT and GI prophylaxis. Further recommendations as per clinical course of the patient DVT prophylaxis: Subcutaneous heparin GI Prophylaxis: Pepcid Prognosis is guarded
[2023-04-13] MEDS: MONTELUKAST 10 MG TAB PO SCH (21:48)
[2023-04-13] MEDS: traZODone HCL 50 MG TAB PO SCH (21:48)
[2023-04-13] MEDS: PARoxetine 20 MG TAB PO SCH (21:49)
[2023-04-14] MEDS: SODIUM CHLORIDE 0.9% 1,000 ML IV SCH ×2 (04:58→18:22)
[2023-04-14] MEDS: FLUTICASONE 220 MCG INHALER INHALATION SCH ×2 (08:39→20:18)
[2023-04-14] MEDS: DOCUSATE 100 MG CAP PO SCH ×2 (08:44→20:09)
[2023-04-14] MEDS: HEPARIN SODIUM,PORCINE 5,000 UNIT/ML 1 ML VIAL SQ SCH ×2 (08:44→20:09)
[2023-04-14] MEDS: hydrALAZINE HCL 50 MG TAB PO SCH ×2 (08:44→20:10)
[2023-04-14] MEDS: MELOXICAM 7.5 MG TAB PO SCH (08:45)
[2023-04-14] MEDS: FAMOTIDINE 20 MG TAB PO SCH ×2 (08:46→20:09)
[2023-04-14] MEDS: methylPREDNISolone SOD SUCCIN 250 MG in SODIUM CHLORIDE 0.9% 100 ML IVPB SCH (08:46)
[2023-04-14] MEDS: SENNOSIDES 8.6 MG TAB PO SCH ×2 (08:47→20:09)
[2023-04-14] MEDS: HYDROmorphone 0.5 MG/0.5 ML SYRINGE IVP PRN (09:02)
--- NOTE | 2023-04-14 09:15 | P.PN ---
Subjective Progress Note Date: 04/13/23 Patient was seen for a follow-up. Patient is laying in the bed, seeing that arthritic pain is better with morbid. She states that her lungs are acting up and she is coughing. She is getting better with breathing treatment. Per nursing report, she is getting Dilaudid round the clock every 3 hours. At present does not complain of any spasms. Objective - Vital Signs Vital signs: Vital Signs Temp 98.3 F 04/14/23 08:00 Pulse 60 04/14/23 08:00 Resp 14 04/14/23 08:00 BP 160/98 04/14/23 08:00 Pulse Ox 96 04/14/23 08:00 FiO2 Intake & Output 04/13/23 04/14/23 04/14/23 18:59 06:59 18:59 Intake Total 290 Balance 290 Intake: Oral 290 Other: Voiding Method Bedpan # Voids 1 1 - Exam Patient's mental status, speech and language functions are normal. Cranial nerves are normal. Motor strength testing deferred because of concern about triggering muscle spasm. 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 * Patient developed recent exacerbation with body spasms, a fall producing bruising over the right forehead cheek region. No obvious triggers identified. * Asthma * Seizure * Hypothyroidism * Hx of Bulimia * Herniated disc * Degenerative disc disease * Cervical dystonia, gets Botox for it. * History of left hip AVN, status post arthroplasty age 38 Plan: * Patient has developed possible exacerbation of her stiff person syndrome. * Patient wishes to continue Solu-Medrol, and we will give her Solu-Medrol 250 mg every 12 hours IV push to be given for 5 days. Stop Solu-Medrol from the morning. May consider giving rapid taper of of prednisone with 40 mg for 1 day, then 30 mg for 1 day, then 20 mg for 1 day, then 10 mg for 1 day and then stop (only if patient wishes to receive taper down dose). * Continue Mobic 15 mg daily for now. Would avoid giving it long-term because of gastric and renal side effects. * Patient receives Valium and Dilaudid 1 mg every 3 hours as needed for breakthrough spasms. Suggest stopping opiates. * EEG was performed, which was mildly abnormal due to some dysrhythmic activity seen in the left posterior temporal region along with phase reversals, mainly involving T5 electrode, which may suggest underlying cortical dysfunction although may be related to technical artifact. No definitive epileptiform activity was seen. Clinical correlation is strongly recommended. If your suspicion of seizures is high, suggest prolonged, sleep deprived EEG. * Patient is scheduled for IVIG with her infusion Company outpatient on 04/16/2023 and 04/17/2023. If the spasms persist, we may give a booster dose of 45 g in the hospital. * Patient's neurologically clear for discharge when pain is under control. Pain management following. Neurology will sign off.
[2023-04-14] MEDS: oxyCODONE-APAP 10-325MG 1 EACH TAB PO PRN (18:08)
[2023-04-14] MEDS: MONTELUKAST 10 MG TAB PO SCH (20:09)
[2023-04-14] MEDS: traZODone HCL 50 MG TAB PO SCH (20:09)
[2023-04-14] MEDS: PARoxetine 20 MG TAB PO SCH (20:09)
[2023-04-15] MEDS: oxyCODONE-APAP 10-325MG 1 EACH TAB PO PRN ×2 (02:21→09:03)
[2023-04-15] MEDS: SODIUM CHLORIDE 0.9% 1,000 ML IV SCH (05:42)
--- NOTE | 2023-04-15 08:09 | P.PN ---
Subjective Date of service for this count is 04/10/2023 this is a pleasant 42 yo f with past medical history of stiff man syndrome. Migraines, kidney stone, asthma She is a known case of stiff man syndrome that she follows up with [facility] and [place] and follow up with an urologist there, she receives IVIG every month through visiting nurse, she always have some degree of spasm and she got 3-4 flareups per year, she had a similar flareup of her stiff man syndrome about 2 months ago when she was in this hospital from 12/20-12/26. She follows up with nerve clinic Dr. Kelly. Today she has more spasm in her legs that's why she came to the hospital in severe pain. In the emergency room she surveyed Valium 5 mg IV 2, Dilaudid 1 mg 1, Toradol 50 mg and Norflex. She does still have some significant pain and spasm. There is no labs or imaging ordered and emergency room 04/09/2023 patient still getting severe whole-body spasm related to her stiff man syndrome, she was very distress frustrated and crying, however she is not willing to give up and she continue to be treated Dilaudid and Valium she said are helping her but they don't last long. Today patient was started on IV Solu-Medrol to 50 mg twice a day Also pain management consult is requested 04/10/2023 Patient is seen and examined by me at bedside,Ms Pardo from binder caser also was available at bedside Patient still reported spasm and pain during the spasm although she admits its improvement compared to the last 2 days since this started off pain medication, benzodiazepine and stereotactic yesterday. No other new complaints. She looks less distressed that yesterday. pain management service evaluated the patient already and the recommendations are noted 04/11/2023 patient looks her pain and spasm better controlled today although not completely resolved and still happening this morning However patient looks more relaxed but more sleepy as well because of high frequency of Valium Continue with pain medication Check creatinine tomorrow and labs 04/12/2023 Patient states he still has spasm but is improving, she is drowsy, No new complaint Daughter at bedside and all questions were answered to their satisfaction Risk of benzodiazepine and narcotics are explained for the patient and daughter including but not limited to the risk of respiratory depression and/or and she verbalized understanding and wants to continue taking.. 04/13/2023 Patient still improving slowly and gradually, she still gets spasm but less severe Today I talked to the patient and she agrees to lower the dose of Valium 5 down to 3 mg every 4 hours. If she keeps improving we tried to taper her Dilaudid down tomorrow as well Solu-Medrol to 50 mg IV twice daily Patient blood pressure was elevated to 180/99 due to steroid effect, therefore we added hydralazine 50 mg twice a day. 04/14/2023 Patient is improving Patient pain and spasm is less severe and less frequent Patient may be considered to be discharged home and follow-up outpatient was pain controlled Currently she is getting Dilaudid [id number] therefore was going to switch to Percocet while gait. 3 mg every 4 hours Currently also patient on steroids per neurologist. Hydralazine 50 mg twice a day was added because of high blood pressure secondary to steroid effect. Upon discharge we need to taper down hydralazine while tapering steroids off also Possible discharge in 24-48 hours Plan discussed with the patient and she is agreeable Objective - Vital Signs Vital signs: Vital Signs Temp 98.3 F 04/14/23 08:00 Pulse 60 04/14/23 08:00 Resp 14 04/14/23 08:00 BP 160/98 04/14/23 08:00 Pulse Ox 96 04/14/23 08:00 FiO2 Intake & Output 04/13/23 04/14/23 04/14/23 18:59 06:59 18:59 Intake Total 290 Balance 290 Intake: Oral 290 Other: Voiding Method Bedpan # Voids 1 1 - Exam GENERAL: The patient is alert and oriented x3, not in any acute distress. Well developed, well nourished. HEENT: Pupils are round and equally reacting to light. EOMI. No scleral icterus. No conjunctival pallor. Normocephalic, atraumatic. No pharyngeal erythema. No thyromegaly. CARDIOVASCULAR: S1 and S2 present. No murmurs, rubs, or gallops. PULMONARY: Chest is clear to auscultation, no wheezing , no crackles. ABDOMEN: Soft, nontender, nondistended, normoactive bowel sounds. No palpable organomegaly. MUSCULOSKELETAL: No joint swelling or deformity. -EXTREMITIES: No cyanosis, clubbing, or pedal edema. Stiff extremities NEUROLOGICAL: Gross neurological examination did not reveal any focal deficits. SKIN: No rashes. no petechiae. - Labs CBC & Chem 7: 04/08/23 17:42 04/12/23 05:45 Assessment and Plan Assessment: Flareup of stiff man syndrome with spasm of upper or lower extremities and whole-body. On IVIG every month in outpatient setting Hypertension, steroid effect History of migraine History of kidney stone History of asthma Plan: Add hydralazine 50 mg twice a day, try to taper hydralazine down as we taper her steroids down as well Continue with pain Medication Dilaudid is to switch to Percocet today Valium for muscle spasm when necessary. Decreased dose 3 mg down to 3 mg and patient agrees Continue gentle hydration IV Solu-Medrol was admitted Neurology and pain service has been consulted from the emergency room Labs and medication were reviewed.. Continue same treatment. Continue with symptomatic treatment. Resume home medication. Monitor labs and vitals. DVT and GI prophylaxis. Further recommendations as per clinical course of the patient DVT prophylaxis: Subcutaneous heparin GI Prophylaxis: Pepcid Prognosis is guarded Possible discharge in 24-48 hours
[2023-04-15 08:24] VITALS: BP 157/104; PULSE 61; RESP 16; TEMP 98.3
[2023-04-15] MEDS: FLUTICASONE 220 MCG INHALER INHALATION SCH (08:55)
[2023-04-15] MEDS: SENNOSIDES 8.6 MG TAB PO SCH (09:02)
[2023-04-15] MEDS: MELOXICAM 7.5 MG TAB PO SCH (09:02)
[2023-04-15] MEDS: DOCUSATE 100 MG CAP PO SCH (09:03)
[2023-04-15] MEDS: hydrALAZINE HCL 50 MG TAB PO SCH (09:03)
[2023-04-15] MEDS: HEPARIN SODIUM,PORCINE 5,000 UNIT/ML 1 ML VIAL SQ SCH (09:03)
[2023-04-15] MEDS: FAMOTIDINE 20 MG TAB PO SCH (09:03)
[2023-04-15] MEDS ORDERED: predniSONE 20 MG TAB PO SCH (10:30)
--- NOTE | 2023-04-15 13:01 | P.DS ---
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 On IVIG every month in outpatient setting Hypertension, steroid effect History of migraine History of kidney stone History of asthma Hospital course; this is a pleasant 42 yo f with past medical history of stiff man syndrome. 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 She follows up with nerve clinic Dr. Kelly. Today she has more spasm in her legs that's why she came to the hospital in severe pain. In the emergency room she surveyed Valium 5 mg IV 2, Dilaudid 1 mg 1, Toradol 50 mg and Norflex. She does still have some significant pain and spasm. There is no labs or imaging ordered and emergency room 04/09/2023 patient still getting severe whole-body spasm related to her stiff man syndrome, she was very distress frustrated and crying, however she is not willing to give up and she continue to be treated Dilaudid and Valium she said are helping her but they don't last long. Today patient was started on IV Solu-Medrol to 50 mg twice a day Also pain management consult is requested 04/10/2023 Patient is seen and examined by me at bedside,Ms Pardo from casework manager also was available at bedside Patient still reported spasm and pain during the spasm although she admits its improvement compared to the last 2 days since this started off pain medication, benzodiazepine and stereotactic yesterday. No other new complaints. She looks less distressed that yesterday. pain management service evaluated the patient already and the recommendations are noted 04/11/2023 patient looks her pain and spasm better controlled today although not completely resolved and still happening this morning However patient looks more relaxed but more sleepy as well because of high frequency of Valium Continue with pain medication Check creatinine tomorrow and labs 04/12/2023 Patient states he still has spasm but is improving, she is drowsy, No new complaint Daughter at bedside and all questions were answered to their satisfaction Risk of benzodiazepine and narcotics are explained for the patient and daughter including but not limited to the risk of respiratory depression and/or and she verbalized understanding and wants to continue taking.. 04/13/2023 Patient still improving slowly and gradually, she still gets spasm but less severe Today I talked to the patient and she agrees to lower the dose of Valium 5 down to 3 mg every 4 hours. If she keeps improving we tried to taper her Dilaudid down tomorrow as well Solu-Medrol to 50 mg IV twice daily Patient blood pressure was elevated to 180/99 due to steroid effect, therefore we added hydralazine 50 mg twice a day. 04/14/2023 Patient is improving Patient pain and spasm is less severe and less frequent Patient may be considered to be discharged home and follow-up outpatient was pain controlled Currently she is getting Dilaudid [id number] therefore was going to switch to Percocet while gait. 3 mg every 4 hours Currently also patient on steroids per neurologist. Hydralazine 50 mg twice a day was added because of high blood pressure secondary to steroid effect. Upon discharge we need to taper down hydralazine while tapering steroids off also Possible discharge in 24-48 hours Plan discussed with the patient and she is agreeable 04/15. Patient seen and examined. Discussed with neurology, they recommended discharging patient on steroid taper. Outpatient follow-up with patients on neurologist PHYSICAL EXAMINATION: GENERAL: The patient is alert and oriented x3, not in any acute distress. Well developed, well nourished. HEENT: Pupils are round and equally reacting to light. EOMI. No scleral icterus. No conjunctival pallor. Normocephalic, atraumatic. No pharyngeal erythema. No thyromegaly. CARDIOVASCULAR: S1 and S2 present. No murmurs, rubs, or gallops. PULMONARY: Chest is clear to auscultation, no wheezing or crackles. ABDOMEN: Soft, nontender, nondistended, normoactive bowel sounds. No palpable organomegaly. MUSCULOSKELETAL: No joint swelling or deformity. EXTREMITIES: No cyanosis, clubbing, or pedal edema. NEUROLOGICAL: Gross neurological examination did not reveal any focal deficits. SKIN: No rashes. Dictation was produced using [employer] dictation software. please excuse any grammatical, word or spelling errors. Patient Condition at Discharge: Good Plan - Discharge Summary New Discharge Prescriptions: New predniSONE 10 mg PO DAILY 3 Days #6 tab hydrALAZINE HCL 25 mg PO BID 15 Days #30 tab Meloxicam [Mobic] 15 mg PO DAILY 14 Days #14 tab Continue Omalizumab [Xolair] 300 mg SQ Q30D PARoxetine [Paxil] 20 mg PO HS Loratadine [Claritin] 10 mg PO DAILY SUMAtriptan succinate [Imitrex] 100 mg PO BID PRN PRN Reason: Migraine Headache Fluticasone Propionate [Flovent Hfa 220 mcg] 2 puff INHALATION RT-BID Botox Neck Injection 400 mg SQ Q70D EPINEPHrine (Auto Inject) [Epipen] 0.3 mg IM ONCE PRN PRN Reason: Anaphylaxis Cholecalciferol (Vitamin D3) [Vitamin D3 (125 MCG = 5,000 IU)] 125 mcg PO DAILY Montelukast [Singulair] 10 mg PO HS Folic Acid 0.5 mg PO DAILY #30 tab oxyCODONE-APAP 10-325MG [Percocet 10-325 mg] 1 tab PO TID PRN 30 Days #90 tab PRN Reason: Pain diazePAM [Valium] 5 mg PO BID PRN PRN Reason: anxiety/spasms Cyclobenzaprine [Flexeril] 5 mg PO QID PRN PRN Reason: Muscle Spasm Albuterol Sulfate [Ventolin HFA] 2 puff INHALATION RT-Q6H PRN PRN Reason: Shortness Of Breath Panzyga 10% Infusion 1 dose IV Q28D Albuterol Nebulized [Ventolin Nebulized] 2.5 mg INHALATION RT-Q6H PRN PRN Reason: Shortness Of Breath traZODone HCL [Desyrel] 100 mg PO HS Famotidine [Pepcid] 20 mg PO BID #60 tab Lactulose [Cephulac] 20 gm PO DAILY PRN #200 ml PRN Reason: Constipation Metoclopramide [Reglan] 10 mg PO Q8H PRN PRN Reason: Nausea Levothyroxine Sodium [Synthroid] 150 mcg PO DAILY Discharge Medication List Omalizumab [Xolair] 300 mg SQ Q30D 07/10/18 [History] PARoxetine [Paxil] 20 mg PO HS 12/18/19 [History] Fluticasone Propionate [Flovent Hfa 220 mcg] 2 puff INHALATION RT-BID 06/13/20 [History] Loratadine [Claritin] 10 mg PO DAILY 06/13/20 [History] SUMAtriptan succinate [Imitrex] 100 mg PO BID PRN 06/13/20 [History] Botox Neck Injection 400 mg SQ Q70D 08/30/20 [History] Albuterol Sulfate [Ventolin HFA] 2 puff INHALATION RT-Q6H PRN 09/30/20 [History] Cholecalciferol (Vitamin D3) [Vitamin D3 (125 MCG = 5,000 IU)] 125 mcg PO DAILY 03/01/22 [History] EPINEPHrine (Auto Inject) [Epipen] 0.3 mg IM ONCE PRN 03/01/22 [History] Panzyga 10% Infusion 1 dose IV Q28D 03/01/22 [History] Albuterol Nebulized [Ventolin Nebulized] 2.5 mg INHALATION RT-Q6H PRN 12/19/22 [History] Montelukast [Singulair] 10 mg PO HS 12/19/22 [History] traZODone HCL [Desyrel] 100 mg PO HS 12/19/22 [History] Famotidine [Pepcid] 20 mg PO BID #60 tab 12/23/22 [Rx] Folic Acid 0.5 mg PO DAILY #30 tab 12/23/22 [Rx] Lactulose [Cephulac] 20 gm PO DAILY PRN #200 ml 12/26/22 [Rx] oxyCODONE-APAP 10-325MG [Percocet 10-325 mg] 1 tab PO TID PRN 30 Days #90 tab 03/25/23 [Rx] Cyclobenzaprine [Flexeril] 5 mg PO QID PRN 04/08/23 [History] Levothyroxine Sodium [Synthroid] 150 mcg PO DAILY 04/08/23 [History] Metoclopramide [Reglan] 10 mg PO Q8H PRN 04/08/23 [History] diazePAM [Valium] 5 mg PO BID PRN 04/08/23 [History] Meloxicam [Mobic] 15 mg PO DAILY 14 Days #14 tab 04/15/23 [Rx] hydrALAZINE HCL 25 mg PO BID 15 Days #30 tab 04/15/23 [Rx] predniSONE 10 mg PO DAILY 3 Days #6 tab 04/15/23 [Rx] Follow up Appointment(s)/Referral(s): [facility], [NON-STAFF] - Slade Gonzalez MD [Primary Care Provider] - 1-2 days Discharge Disposition: HOME SELF-CARE
[2023-04-15 13:57] VITALS: BMI 26.5
== END 2023-04-15 14:32 | disposition home or self-care (01) | DRG 92 ==
LOC: EC 09:58 → 6NMEDSUR 13:38 → OBSVTOIN 13:38 → 6NMEDSUR 15:08
PROVIDERS: ADMIT Internal Medicine; ATTEND Internal Medicine
PROC: 4A10X4Z Monitoring of Central Nervous Electrical Activity, External Approach (ICD-10-PCS; principal; 2023-04-10)
DX: G25.82 Stiff-man syndrome (principal); F50.2 Bulimia nervosa; N17.9 Acute kidney failure, unspecified; J45.909 Unspecified asthma, uncomplicated; F32.A Depression, unspecified; F41.9 Anxiety disorder, unspecified; E03.9 Hypothyroidism, unspecified; S01.91XA Laceration without foreign body of unspecified part of head, initial encounter; R56.9 Unspecified convulsions; G89.29 Other chronic pain; M54.9 Dorsalgia, unspecified; M19.90 Unspecified osteoarthritis, unspecified site; M50.30 Other cervical disc degeneration, unspecified cervical region; R29.6 Repeated falls; T38.0X5A Adverse effect of glucocorticoids and synthetic analogues, initial encounter; X58.XXXA Exposure to other specified factors, initial encounter; Z79.51 Long term (current) use of inhaled steroids; Z79.890 Hormone replacement therapy; Z79.899 Other long term (current) drug therapy; Z85.41 Personal history of malignant neoplasm of cervix uteri; Z86.59 Personal history of other mental and behavioral disorders; Z86.61 Personal history of infections of the central nervous system; Z87.11 Personal history of peptic ulcer disease; Z87.442 Personal history of urinary calculi; Z91.81 History of falling; Z96.642 Presence of left artificial hip joint; Z98.84 Bariatric surgery status; Z90.49 Acquired absence of other specified parts of digestive tract
CPT/HCPCS: 70450; 72125; 80048; 80076; 83735; 84703; 85025; 85610; 95816; 96361; 96372; 96374; 96375; 96376; 99285

== ENCOUNTER → 2023-06-19 | Outpatient (CLI) | payer MEDICARE ==
[2023-06-19 08:12] VITALS: BP 125/85; PULSE 103; RESP 16
--- NOTE | 2023-06-19 11:02 | P.PAINPG ---
PQRS Measure Charge Sheet Comment: A 42 yrs old female presents today w severe and chronic neck, chest and BLE pain secondary to stiff person syndrome for medication refills. Pt states pain and stiffness level is at 9 /10 in intensity and accompanied w muscle spasms in the neck arms, chest and legs, constant, tight, sharp in character without radiating pain. Pt states had multiple episodes of severe spasms at home , missing doses of medications, changes in room temperature, etch. Pain is provoked by any movement. Pain is alleviated by medications, heat, ice, laying supine, monthly IgG infusions from her established neurologist, laying on her side and rest. REVIEW OF ORGAN SYSTEMS: CONSTITUTIONAL: No fevers or chills. No recent weight loss. NEUROLOGICAL: + numbness and tingling along the distal extremities. No seizure disorders or headaches. MUSCULOSKELETAL: + pain PSYCHIATRIC: Denies current depression or suicidal thoughts. Physical Examinations : Constitutional : Cooperative , not in acute distress . Neurologic : Cranial nerve II to XII intact. No focal neurological deficits. Psychiatric : alert & oriented x 3. Matching mood & appropriate affect. Judgment & insight intact. Musculoskeletal : Cervical Spine Motor strength in the deltoid and biceps: Normal right side. Normal Left side Motor strength biceps and the wrist extensors: Normal right side . Normal left side Motor strength in the triceps muscle: Normal right side. Normal left side Deep tendon reflexes: Normal at the biceps. Normal at Brachioradialis. Normal at triceps Vertebral body tenderness to deep palpation over Cervical facet loading test: positive bilaterally Spurling test: positive bilaterally Neck distraction test: positive bilaterally Valencia sign: positive bilaterally Lumbar spine Motor strength lower extremities ,thigh and legs 5/5 Right side , 5/5 Left side Deep tendon reflexes : Normal Knee Jerk. Normal Ankle Jerk Vertebral body tenderness over Lumbar facet Loading Test: positive Right / positive Left Range of motion of the lumbar spine Flexion 30 degrees, extension 10 degrees Straight Leg Raise test: Left/ Right positive at degree Mary test: positive right / positive left. Severe tenderness over the Sacroiliac joint on the Right / Left sides Gaenslen test: positive bilaterally Seated flexion test: positive bilaterally. 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 Use, side effects, adverse reactions and safe storage discussed. Narcotic/ opiate agreement signed 01/02/23. UDS from 03/25/23 reviewed and consistent. MAPS reviewed. All questions answered. PQRS Narrative: Smoking Status Never smoker Narcotic Agreement Date Signed 02/05/22 Hx Alcohol Use (MH) No Home Medications: Ambulatory Orders Omalizumab [Xolair] 300 mg SQ Q30D 07/10/18 PARoxetine [Paxil] 20 mg PO HS 12/18/19 Fluticasone Propionate [Flovent Hfa 220 mcg] 2 puff INHALATION RT-BID 06/13/20 Loratadine [Claritin] 10 mg PO DAILY 06/13/20 SUMAtriptan succinate [Imitrex] 100 mg PO BID PRN 06/13/20 Botox Neck Injection 400 mg SQ Q70D 08/30/20 Albuterol Sulfate [Ventolin HFA] 2 puff INHALATION RT-Q6H PRN 09/30/20 Cholecalciferol (Vitamin D3) [Vitamin D3 (125 MCG = 5,000 IU)] 125 mcg PO DAILY 03/01/22 EPINEPHrine (Auto Inject) [Epipen] 0.3 mg IM ONCE PRN 03/01/22 Panzyga 10% Infusion 1 dose IV Q28D 03/01/22 Albuterol Nebulized [Ventolin Nebulized] 2.5 mg INHALATION RT-Q6H PRN 12/19/22 Montelukast [Singulair] 10 mg PO HS 12/19/22 traZODone HCL [Desyrel] 100 mg PO HS 12/19/22 Famotidine [Pepcid] 20 mg PO BID #60 tab 12/23/22 Folic Acid 0.5 mg PO DAILY #30 tab 12/23/22 Lactulose [Cephulac] 20 gm PO DAILY PRN #200 ml 12/26/22 Levothyroxine Sodium [Synthroid] 150 mcg PO DAILY 04/08/23 Metoclopramide [Reglan] 10 mg PO Q8H PRN 04/08/23 diazePAM [Valium] 5 mg PO BID PRN 04/08/23 hydrALAZINE HCL 25 mg PO BID 15 Days #30 tab 04/15/23 predniSONE 10 mg PO DAILY 3 Days #6 tab 04/15/23 Cyclobenzaprine [Flexeril] 5 mg PO QID PRN 30 Days #120 tab 06/19/23 Meloxicam [Mobic] 7.5 mg PO BID 30 Days #60 tab 06/19/23 oxyCODONE-APAP 10-325MG [Percocet 10-325 mg] 1 tab PO Q8HR PRN 30 Days #90 tab 06/19/23 oxyCODONE-APAP 10-325MG [Percocet 10-325 mg] 1 tab PO TID PRN 30 Days #90 tab 06/19/23 Controlled Substance Measures - Controlled Substance Measures Is patient prescribed a controlled substance at discharge?: Yes When asked, does pt state using other controlled substances?: Yes If prescribed controlled substance>3 days was MAPS reviewed?: Yes
== END ==
LOC: PNWHC3 07:32
PROVIDERS: ATTEND Specialist
DX: M47.815 Spondylosis without myelopathy or radiculopathy, thoracolumbar region (principal); G25.82 Stiff-man syndrome; G24.8 Other dystonia; M54.2 Cervicalgia
CPT/HCPCS: 99211

== ENCOUNTER 2023-07-23 15:40 | Observation (INO) | payer MEDICARE, OTHER ==
[2023-07-23] MEDS: HYDROmorphone 0.5 MG/0.5 ML SYRINGE IVP STA (16:52)
--- NOTE | 2023-07-23 16:53 | ED ---
General Adult HPI - General Chief complaint: Recheck/Abnormal Lab/Rx Stated complaint: Full Body Muscle Spasms Time Seen by Provider: 07/23/23 16:20 Source: EMS Mode of arrival: EMS Limitations: physical limitation - History of Present Illness Initial comments: This person is a 42-year-old woman who gives history of stiff person syndrome, and presents today with complaint of persistent spasms consistent with her syndrome. The patient states that symptoms began flaring after she was diagnosed with COVID last week. She has tried her home medications which include Valium and Percocet but the symptoms remain bad. She states she was given some additional analgesia by the EMS personnel with only minimal relief. Patient denies chest pain, dyspnea, nausea vomiting, change in bowel movements or urination. -: hour(s) Location: left, right, upper extremity, lower extremity Radiation: non-radiation Quality: aching, other (Spasms) Consistency: constant Improves with: none Worsens with: none Associated Symptoms: denies other symptoms Treatments Prior to Arrival: none - Related Data Home Medications Medication Instructions Recorded Confirmed Omalizumab [Xolair] 300 mg SQ Q30D 07/10/18 06/19/23 PARoxetine [Paxil] 20 mg PO HS 12/18/19 06/19/23 Fluticasone Propionate [Flovent 2 puff INHALATION RT-BID 06/13/20 06/19/23 Hfa 220 mcg] Loratadine [Claritin] 10 mg PO DAILY 06/13/20 06/19/23 SUMAtriptan succinate [Imitrex] 100 mg PO BID PRN 06/13/20 06/19/23 Botox Neck Injection 400 mg SQ Q70D 08/30/20 06/19/23 Albuterol Sulfate [Ventolin HFA] 2 puff INHALATION RT-Q6H PRN 09/30/20 06/19/23 Cholecalciferol (Vitamin D3) 125 mcg PO DAILY 03/01/22 06/19/23 [Vitamin D3 (125 MCG = 5,000 IU)] EPINEPHrine (Auto Inject) [Epipen] 0.3 mg IM ONCE PRN 03/01/22 06/19/23 Panzyga 10% Infusion 1 dose IV Q28D 03/01/22 06/19/23 Albuterol Nebulized [Ventolin 2.5 mg INHALATION RT-Q6H PRN 12/19/22 06/19/23 Nebulized] Montelukast [Singulair] 10 mg PO HS 12/19/22 06/19/23 traZODone HCL [Desyrel] 100 mg PO HS 12/19/22 06/19/23 Levothyroxine Sodium [Synthroid] 150 mcg PO DAILY 04/08/23 06/19/23 Metoclopramide [Reglan] 10 mg PO Q8H PRN 04/08/23 06/19/23 diazePAM [Valium] 5 mg PO BID PRN 04/08/23 06/19/23 Previous Rx's Medication Instructions Recorded Famotidine [Pepcid] 20 mg PO BID #60 tab 12/23/22 Folic Acid 0.5 mg PO DAILY #30 tab 12/23/22 Lactulose [Cephulac] 20 gm PO DAILY PRN #200 ml 12/26/22 hydrALAZINE HCL 25 mg PO BID 15 Days #30 tab 04/15/23 predniSONE 10 mg PO DAILY 3 Days #6 tab 04/15/23 Cyclobenzaprine [Flexeril] 5 mg PO QID PRN 30 Days #120 tab 06/19/23 Meloxicam [Mobic] 7.5 mg PO BID 30 Days #60 tab 06/19/23 oxyCODONE-APAP 10-325MG [Percocet 1 tab PO Q8HR PRN 30 Days #90 tab 06/19/23 10-325 mg] oxyCODONE-APAP 10-325MG [Percocet 1 tab PO TID PRN 30 Days #90 tab 06/19/23 10-325 mg] Allergies Allergy/AdvReac Type Severity Reaction Status Date / Time No Known Allergies Allergy Verified 07/23/23 15:54 Review of Systems ROS Statement: Those systems with pertinent positive or pertinent negative responses have been documented in the HPI. ROS Other: All systems not noted in ROS Statement are negative. Constitutional: Denies: fever, chills Respiratory: Denies: cough, dyspnea Cardiovascular: Denies: chest pain, palpitations, edema Gastrointestinal: Denies: abdominal pain, vomiting, diarrhea Genitourinary: Denies: dysuria, hematuria Musculoskeletal: Reports: myalgia Skin: Denies: rash Neurological: Denies: headache, weakness, numbness Past Medical History Past Medical History: Asthma, Pneumonia Additional Past Medical History / Comment(s): TACHYCARDIA, peptic ulcers, anemia."HAS BEEN ON VENTILATOR IN PAST D/T SEVERE ASTHMA ATTACK," BULEMIA-STATES GETTING BETTER, CONSTIPATION. HERNIATED DISC, cervical cancer. 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 recent antibiotoc for infection in arm-now resolved per pt, COVID 12/30/20. 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 Surgery on her cervix for cancer, rt foot surgery(Fx), cysto/lithotripsy , left hip replacement 12/2018, lumbar puncture, cervical biopsy in August @[facility], bone tumor removal Past Anesthesia/Blood Transfusion Reactions: Postoperative Nausea & Vomiting (PONV) Past Psychological History: Anxiety, Depression Smoking Status: Never smoker Past Alcohol Use History: None Reported Past Drug Use History: None Reported - Past Family History Mother Family Medical History: Pneumonia Additional Family Medical History / Comment(s): Mother of pneumonia. Patient's son of brain cancer, last mother and father both liver cancer Son(s) Family Medical History: Cancer Additional Family Medical History / Comment(s): Son of brain cancer. Father Family Medical History: Cancer Additional Family Medical History / Comment(s): Liver Cancer. General Exam Limitations: physical limitation General appearance: alert, in no apparent distress Head exam: Present: atraumatic, normocephalic Eye exam: Present: normal appearance. Absent: scleral icterus, conjunctival inj ection Neck exam: Present: normal inspection Respiratory exam: Present: normal lung sounds bilaterally. Absent: respiratory distress, wheezes, rales, rhonchi, stridor, accessory muscle use Cardiovascular Exam: Present: normal rhythm, tachycardia, normal heart sounds. Absent: systolic murmur, diastolic murmur, rubs, gallop GI/Abdominal exam: Present: soft. Absent: distended, tenderness, guarding, rebound, rigid, mass Extremities exam: Present: normal capillary refill, other (Patient with spasms of bilateral upper/lower extremities). Absent: pedal edema, calf tenderness Back exam: Present: normal inspection. Absent: CVA tenderness (R), CVA tenderness (L) Neurological exam: Present: alert, oriented X3. Absent: motor sensory deficit Skin exam: Present: warm, dry, intact, normal color. Absent: rash Course Vital Signs 07/23/23 07/23/23 15:45 17:46 Temperature 97.7 F Pulse Rate 113 H 82 Respiratory 18 20 Rate Blood Pressure 136/70 118/78 O2 Sat by Pulse 97 98 Oximetry Medical Decision Making - Lab Data Result diagrams: 07/23/23 17:00 07/23/23 17:00 Lab Results 07/23/23 07/23/23 07/23/23 Range/Units 17:00 17:00 17:00 WBC 7.0 (3.8-10.6) k/uL RBC 4.19 (3.80-5.40) m/uL Hgb 13.7 (11.4-16.0) gm/dL Hct 39.5 (34.0-46.0) % MCV 94.3 (80.0-100.0) fL MCH 32.6 (25.0-35.0) pg MCHC 34.6 (31.0-37.0) g/dL RDW 11.4 L (11.5-15.5) % Plt Count 169 (150-450) k/uL MPV 7.6 Neutrophils % 63 % Lymphocytes % 28 % Monocytes % 6 % Eosinophils % 2 % Basophils % 1 % Neutrophils # 4.4 (1.3-7.7) k/uL Lymphocytes # 1.9 (1.0-4.8) k/uL Monocytes # 0.4 (0-1.0) k/uL Eosinophils # 0.1 (0-0.7) k/uL Basophils # 0.0 (0-0.2) k/uL Sodium 140 (137-145) mmol/L Potassium 4.7 (3.5-5.1) mmol/L Chloride 109 H (98-107) mmol/L Carbon Dioxide 27 (22-30) mmol/L Anion Gap 4 mmol/L BUN 17 (7-17) mg/dL Creatinine 1.01 (0.52-1.04) mg/dL Est GFR (CKD-EPI)AfAm 80 (>60 ml/min/1.73 sqM) Est GFR (CKD-EPI)NonAf 69 (>60 ml/min/1.73 sqM) Glucose 79 (74-99) mg/dL Calcium 9.0 (8.4-10.2) mg/dL Magnesium 1.8 (1.6-2.3) mg/dL Total Bilirubin 0.6 (0.2-1.3) mg/dL AST 31 (14-36) U/L ALT 17 (4-34) U/L Alkaline Phosphatase 71 (38-126) U/L Total Protein 7.9 (6.3-8.2) g/dL Albumin 4.2 (3.5-5.0) g/dL Urine HCG, Qual Not Detected (Not Detectd) Disposition Clinical Impression: Intractable pain, Stiff-man syndrome Disposition: ADMITTED IP TO THIS [facility] Condition: Good Is patient prescribed a controlled substance at d/c from ED?: No Referrals: Slade Gonzalez MD [Primary Care Provider] - 1-2 days
[2023-07-23] MEDS: SODIUM CHLORIDE 0.9% 1,000 ML IV ONE (17:00)
[2023-07-23] MEDS: methylPREDNISolone SOD SUCCI 125 MG/2 ML VIAL IV STA (17:43)
[2023-07-23 18:10] LABS: Basophils % (A) 1 %; Eosinophils # (A) 0.1 k/uL (0-0.7); Eosinophils % (A) 2 %; HCT 39.5 % (34.0-46.0); HGB 13.7 gm/dL (11.4-16.0); Lymphocytes # (A) 1.9 k/uL (1.0-4.8); Lymphocytes % (A) 28 %; MCH 32.6 pg (25.0-35.0); MCHC 34.6 g/dL (31.0-37.0); MCV 94.3 fL (80.0-100.0); Mean Platelet Volume 7.6; Monocytes # (A) 0.4 k/uL (0-1.0); Monocytes % (A) 6 %; Neutrophils # (A) 4.4 k/uL (1.3-7.7); Neutrophils % (A) 63 %; Platelet Count 169 k/uL (150-450); RBC 4.19 m/uL (3.80-5.40); RDW 11.4 % (11.5-15.5)
[2023-07-23 18:32] LABS: ALT 17 U/L (4-34); AST 31 U/L (14-36); African American GFR (CKD) 80 (>60 ml/min/1.73 sqM); Albumin 4.2 g/dL (3.5-5.0); Alkaline Phosphatase 71 U/L (38-126); Anion Gap 4 mmol/L; Blood Urea Nitrogen 17 mg/dL (7-17); Carbon Dioxide 27 mmol/L (22-30); Chloride 109 mmol/L (98-107); Glucose 79 mg/dL (74-99); Magnesium 1.8 mg/dL (1.6-2.3); Non-African American GFR(CKD) 69 (>60 ml/min/1.73 sqM); Potassium 4.7 mmol/L (3.5-5.1); Sodium 140 mmol/L (137-145); Total Bilirubin 0.6 mg/dL (0.2-1.3); Total Protein 7.9 g/dL (6.3-8.2)
[2023-07-23] MEDS ORDERED: MAG HYDROX/AL HYDROX/SIMETH 30 ML CUP PO PRN (20:43)
[2023-07-23] MEDS ORDERED: ONDANSETRON 4 MG/2 ML VIAL IVP PRN (20:43)
[2023-07-23] MEDS ORDERED: NALOXONE 0.4 MG/ML 1 ML VIAL IV PRN (20:43)
[2023-07-23] MEDS ORDERED: METOCLOPRAMIDE 10 MG TAB PO PRN (20:44)
[2023-07-23] MEDS ORDERED: SUMAtriptan succinate 50 MG TAB PO PRN (20:44)
[2023-07-23] MEDS ORDERED: oxyCODONE-APAP 10-325MG 1 EACH TAB PO PRN (20:44)
[2023-07-23] MEDS ORDERED: LACTULOSE 20 GM/30 ML CUP PO PRN (20:44)
[2023-07-23] MEDS ORDERED: ALBUTEROL NEBULIZED 2.5 MG/3 ML INHALATION PRN (20:44)
[2023-07-23] MEDS ORDERED: traZODone HCL 50 MG TAB PO SCH (21:00)
[2023-07-23] MEDS ORDERED: MONTELUKAST 10 MG TAB PO SCH (21:00)
[2023-07-23] MEDS ORDERED: FAMOTIDINE 20 MG TAB PO SCH (21:00)
[2023-07-23] MEDS ORDERED: PARoxetine 20 MG TAB PO SCH (21:00)
[2023-07-23] MEDS ORDERED: hydrALAZINE HCL 25 MG TAB PO SCH (21:00)
[2023-07-23] MEDS ORDERED: MELOXICAM 7.5 MG TAB PO SCH (21:00)
[2023-07-23] MEDS: SODIUM CHLORIDE 0.9% 1,000 ML IV SCH (22:23)
[2023-07-23 22:27] VITALS: BP 119/86; PULSE 85; RESP 18; TEMP 98.9
[2023-07-23] MEDS ORDERED: HYDROmorphone 0.5 MG/0.5 ML SYRINGE IVP STA (22:45)
[2023-07-24] MEDS ORDERED: methylPREDNISolone SOD SUCCI 125 MG/2 ML VIAL IV SCH
[2023-07-24] MEDS ORDERED: LEVOTHYROXINE 75 MCG TAB PO SCH (06:30)
[2023-07-24] MEDS ORDERED: FLUTICASONE 220 MCG INHALER INHALATION SCH (08:00)
[2023-07-24] MEDS ORDERED: FOLIC ACID 1 MG TAB PO SCH (09:00)
[2023-07-24] MEDS ORDERED: CHOLECALCIFEROL 125 MCG (5000 IU) TABLET PO SCH (09:00)
== END 2023-07-23 23:03 | disposition left against medical advice (07) ==
LOC: EC 15:40 → 6NMEDSUR 20:44
PROVIDERS: ADMIT Hospitalist; ATTEND Hospitalist
DX: G25.82 Stiff-man syndrome (principal); J45.909 Unspecified asthma, uncomplicated; F32.A Depression, unspecified; F41.9 Anxiety disorder, unspecified; Z79.1 Long term (current) use of non-steroidal anti-inflammatories (NSAID); Z79.51 Long term (current) use of inhaled steroids; Z79.52 Long term (current) use of systemic steroids; Z79.899 Other long term (current) drug therapy; Z53.29 Procedure and treatment not carried out because of patient's decision for other reasons
CPT/HCPCS: 96376; 96361; 96374; 96375; 99284; 36415; 80053; 83735; 85025; 81025; G0378; J2930; J3360; J1170

== ENCOUNTER → 2023-08-14 | Outpatient (CLI) | payer MEDICARE ==
[2023-08-14 08:19] VITALS: BP 132/62; PULSE 77; RESP 15; TEMP 98.6
--- NOTE | 2023-08-14 13:50 | P.PAINPG ---
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 Pt had 3rd bout of covid approximately 1 mo ago which worsened her pain level and increased LUE contractures. Pt states pain and stiffness level is at 5 /10 in intensity and accompanied w muscle spasms in the neck arms, chest and legs, constant, tight, sharp in character without radiating pain. Pt states had multiple episodes of severe spasms at home , missing doses of medications, changes in room temperature, etch. Pain is provoked by any movement. Pain is alleviated by medications, heat, ice, laying supine, monthly IgG infusions from her established neurologist, laying on her side and rest. Medications include Percocet 10/325mg #90, Flexeril, Mobic REVIEW OF ORGAN SYSTEMS: CONSTITUTIONAL: No fevers or chills. No recent weight loss . NEUROLOGICAL: + numbness and tingling along the distal extremities. No seizure disorders or headaches. MUSCULOSKELETAL: + pain PSYCHIATRIC: Denies current depression or suicidal thoughts. Physical Examinations : Constitutional : Cooperative , not in acute distress . Neurologic : Cranial nerve II to XII intact. No focal neurological deficits. Psychiatric : alert & oriented x 3. Matching mood & appropriate affect. Judgment & insight intact. Musculoskeletal : Cervical Spine +LUE contracture 2/5 muscle strength Motor strength in the deltoid and biceps: Normal right side. Normal Left side Motor strength biceps and the wrist extensors: Normal right side . Normal left side Motor strength in the triceps muscle: Normal right side. Normal left side Deep tendon reflexes: Normal at the biceps. Normal at Brachioradialis. Normal at triceps Vertebral body tenderness to deep palpation over Cervical facet loading test: positive bilaterally Spurling test: positive bilaterally Neck distraction test: positive bilaterally Valencia sign: positive bilaterally Lumbar spine Motor strength lower extremities ,thigh and legs 5/5 Right side , 5/5 Left side Deep tendon reflexes : Normal Knee Jerk. Normal Ankle Jerk Vertebral body tenderness over Lumbar facet Loading Test: positive Right / positive Left Range of motion of the lumbar spine Flexion 30 degrees, extension 10 degrees Straight Leg Raise test: Left/ Right positive at degree Mary test: positive right / positive left. Severe tenderness over the Sacroiliac joint on the Right / Left sides Gaenslen test: positive bilaterally Seated flexion test: positive bilaterally. 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 Use, side effects, adverse reactions and safe storage discussed. Narcotic/ opiate agreement signed 01/02/23. UDS from 03/25/23 reviewed and consistent. MAPS reviewed. All questions answered. - Pain Location Bilateral Neck Non-Pharmacological Interventions: Heat, Ice, Inactivity, Position/Reposition Pharmacological Interventions: Scheduled Medication PQRS Narrative: Smoking Status Never smoker Narcotic Agreement Date Signed 02/05/22 Hx Alcohol Use (MH) No Home Medications: Ambulatory Orders Omalizumab [Xolair] 300 mg SQ Q30D 07/10/18 PARoxetine [Paxil] 20 mg PO HS 12/18/19 Loratadine [Claritin] 10 mg PO DAILY 06/13/20 SUMAtriptan succinate [Imitrex] 100 mg PO BID PRN 06/13/20 Botox Neck Injection 400 mg SQ Q70D 08/30/20 Albuterol Sulfate [Ventolin HFA] 2 puff INHALATION RT-Q6H PRN 09/30/20 EPINEPHrine (Auto Inject) [Epipen] 0.3 mg IM ONCE PRN 03/01/22 Panzyga 10% Infusion 1 dose IV Q28D 03/01/22 Montelukast [Singulair] 10 mg PO HS 12/19/22 traZODone HCL [Desyrel] 100 mg PO HS 12/19/22 Levothyroxine Sodium [Synthroid] 150 mcg PO DAILY 04/08/23 diazePAM [Valium] 5 mg PO BID PRN 04/08/23 Cholecalciferol (Vitamin D3) [Vitamin D3 (50 Mcg = 2000 Iu)] 50 mcg PO DAILY 07/23/23 Docusate [Colace] 100 mg PO DAILY PRN 02/27/24 Naloxone HCl [Narcan] 4 mg NASAL DIRECTED PRN 07/23/23 Cyclobenzaprine [Flexeril] 5 mg PO QID PRN 30 Days #120 tab 08/14/23 Meloxicam [Mobic] 7.5 mg PO BID 30 Days #60 tab 08/14/23 oxyCODONE-APAP 10-325MG [Percocet 10-325 mg] 1 tab PO Q8HR PRN 30 Days #90 tab 08/14/23 oxyCODONE-APAP 10-325MG [Percocet 10-325 mg] 1 tab PO TID PRN 30 Days #90 tab 08/14/23 Controlled Substance Measures - Controlled Substance Measures Is patient prescribed a controlled substance at discharge?: Yes When asked, does pt state using other controlled substances?: Yes If prescribed controlled substance>3 days was MAPS reviewed?: Yes
== END ==
LOC: PNWHC3 07:29
PROVIDERS: ATTEND Specialist
DX: G25.82 Stiff-man syndrome (principal); M54.2 Cervicalgia; G24.3 Spasmodic torticollis
CPT/HCPCS: 99211

== ENCOUNTER 2023-09-11 13:46 | Inpatient (IN) | payer MEDICARE ==
[2023-09-11] MEDS: ORPHENADRINE 30 MG/ML 2 ML VIAL IM STA (14:40)
[2023-09-11] MEDS: HYDROmorphone 1 MG/ML 1 ML SYRINGE IVP STA (14:41)
[2023-09-11] MEDS: DEXAMETHASONE SOD PHOSPHATE 10 MG/ML 1 ML VIAL IVP STA (14:41)
[2023-09-11 14:47] LABS: Basophils # (A) 0.1 k/uL (0-0.2); Basophils % (A) 1 %; Eosinophils # (A) 0.4 k/uL (0-0.7); Eosinophils % (A) 5 %; HCT 38.3 % (34.0-46.0); HGB 13.2 gm/dL (11.4-16.0); Lymphocytes # (A) 2.2 k/uL (1.0-4.8); Lymphocytes % (A) 30 %; MCH 32.3 pg (25.0-35.0); MCHC 34.4 g/dL (31.0-37.0); MCV 93.8 fL (80.0-100.0); Mean Platelet Volume 6.9; Monocytes # (A) 0.4 k/uL (0-1.0); Monocytes % (A) 6 %; Neutrophils # (A) 4.1 k/uL (1.3-7.7); Neutrophils % (A) 57 %; Platelet Count 220 k/uL (150-450); RBC 4.08 m/uL (3.80-5.40); RDW 12.4 % (11.5-15.5); WBC 7.3 k/uL (3.8-10.6)
[2023-09-11 14:57] LABS: ALT 23 U/L (4-34); AST 34 U/L (14-36); African American GFR (CKD) 72 (>60 ml/min/1.73 sqM); Albumin 3.9 g/dL (3.5-5.0); Alkaline Phosphatase 52 U/L (38-126); Anion Gap 6 mmol/L; Blood Urea Nitrogen 21 mg/dL (7-17); Calcium 8.7 mg/dL (8.4-10.2); Carbon Dioxide 26 mmol/L (22-30); Chloride 104 mmol/L (98-107); Creatine Kinase 129 U/L (30-135); Glucose 79 mg/dL (74-99); Non-African American GFR(CKD) 62 (>60 ml/min/1.73 sqM); Potassium 4.7 mmol/L (3.5-5.1); Sodium 136 mmol/L (137-145); Total Bilirubin 0.3 mg/dL (0.2-1.3); Total Protein 7.8 g/dL (6.3-8.2)
[2023-09-11] MEDS ORDERED: NALOXONE 0.4 MG/ML 1 ML VIAL IV PRN (16:12)
--- NOTE | 2023-09-11 16:12 | ED ---
General Adult HPI - General Chief complaint: Neuro Symptoms/Deficit Stated complaint: stiff man syndrome Time Seen by Provider: 09/11/23 13:55 Source: patient Mode of arrival: EMS Limitations: no limitations - History of Present Illness Initial comments: 42-year-old female who presents to the emergency department with an exacerbation of her stiff man syndrome. Patient states that she tested [facility] long 65 [facility] and has been diagnosed with stiff man syndrome. States that she will have triggers that put her into an episode. She states that she had COVID a month ago and ever since then she has been unable to break the cycle. Patient has been bedbound at home and pain. She has been using her home pain medications and muscle relaxers to alleviate her symptoms however has not had any resolution. Patient states she cannot take it any longer and therefore called EMS. They did provide her with 5 mg of Versed. States that she does have some improvement in her symptoms. She denies any chest pain or difficulty breathing. No other alleviating, precipitating or modifying factors - Related Data Home Medications Medication Instructions Recorded Confirmed Omalizumab [Xolair] 300 mg SQ Q30D 07/10/18 09/11/23 PARoxetine [Paxil] 20 mg PO HS 12/18/19 09/11/23 Loratadine [Claritin] 10 mg PO DAILY 06/13/20 09/11/23 Botox Neck Injection 400 mg SQ Q70D 08/30/20 09/11/23 Albuterol Sulfate [Ventolin HFA] 2 puff INHALATION RT-Q6H PRN 09/30/20 09/11/23 EPINEPHrine (Auto Inject) [Epipen] 0.3 mg IM ONCE PRN 03/01/22 09/11/23 Panzyga 10% Infusion 1 dose IV Q28D 03/01/22 09/11/23 Montelukast [Singulair] 10 mg PO HS 12/19/22 09/11/23 traZODone HCL [Desyrel] 100 mg PO HS 12/19/22 09/11/23 Levothyroxine Sodium [Synthroid] 150 mcg PO DAILY 04/08/23 09/11/23 diazePAM [Valium] 5 mg PO Q12H PRN 04/08/23 09/11/23 Cholecalciferol (Vitamin D3) 50 mcg PO DAILY 07/23/23 09/11/23 [Vitamin D3 (50 Mcg = 2000 Iu)] Naloxone HCl [Narcan] 4 mg NASAL DIRECTED PRN 07/23/23 09/11/23 Albuterol Nebulized [Ventolin 2.5 mg INHALATION RT-QID PRN 09/11/23 09/11/23 Nebulized] Meloxicam [Mobic] 7.5 mg PO DAILY 09/11/23 09/11/23 Solu-Medrol 125mg/2ml 125 mg IV Q28D 09/11/23 09/11/23 Previous Rx's Medication Instructions Recorded Cyclobenzaprine [Flexeril] 5 mg PO QID PRN 30 Days #120 tab 08/14/23 oxyCODONE-APAP 10-325MG [Percocet 1 tab PO TID PRN 30 Days #90 tab 08/14/23 10-325 mg] Allergies Allergy/AdvReac Type Severity Reaction Status Date / Time No Known Allergies Allergy Verified 09/11/23 17:16 Review of Systems ROS Statement: Those systems with pertinent positive or pertinent negative responses have been documented in the HPI. ROS Other: All systems not noted in ROS Statement are negative. Past Medical History Past Medical History: Asthma, Pneumonia Additional Past Medical History / Comment(s): TACHYCARDIA, peptic ulcers, anemia."HAS BEEN ON VENTILATOR IN PAST D/T SEVERE ASTHMA ATTACK," BULEMIA-STATES GETTING BETTER, CONSTIPATION. HERNIATED DISC, cervical cancer. 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 recent antibiotoc for infection in arm-now resolved per pt, COVID 12/30/20. 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 Surgery on her cervix for cancer, rt foot surgery(Fx), cysto/lithotripsy , left hip replacement 12/2018, lumbar puncture, cervical biopsy in August @[facility], bone tumor removal Past Anesthesia/Blood Transfusion Reactions: Postoperative Nausea & Vomiting (PONV) Past Psychological History: Anxiety, Depression Smoking Status: Never smoker Past Alcohol Use History: None Reported Past Drug Use History: None Reported - Past Family History Mother Family Medical History: Pneumonia Additional Family Medical History / Comment(s): Mother of pneumonia. Patient's son of brain cancer, last mother and father both liver cancer Son(s) Family Medical History: Cancer Additional Family Medical History / Comment(s): Son of brain cancer. Father Family Medical History: Cancer Additional Family Medical History / Comment(s): Liver Cancer. General Exam Limitations: no limitations General appearance: alert, other (rigid in bed) Head exam: Present: atraumatic, normocephalic, normal inspection Eye exam: Present: normal appearance, PERRL, EOMI. Absent: scleral icterus, conjunctival injection, periorbital swelling ENT exam: Present: normal exam, mucous membranes moist Neck exam: Present: normal inspection. Absent: tenderness, meningismus, lymphadenopathy Respiratory exam: Present: normal lung sounds bilaterally. Absent: respiratory distress, wheezes, rales, rhonchi, stridor Cardiovascular Exam: Present: regular rate, normal rhythm, normal heart sounds. Absent: systolic murmur, diastolic murmur, rubs, gallop, clicks GI/Abdominal exam: Present: soft, normal bowel sounds. Absent: distended, tenderness, guarding, rebound, rigid Extremities exam: Present: normal inspection, full ROM, normal capillary refill. Absent: tenderness, pedal edema, joint swelling, calf tenderness Back exam: Present: normal inspection Neurological exam: Present: alert, oriented X3, CN II-XII intact Psychiatric exam: Present: normal affect, normal mood Skin exam: Present: warm, dry, intact, normal color. Absent: rash Course Vital Signs 09/11/23 09/11/23 09/11/23 13:51 15:11 17:29 Temperature 98.8 F Pulse Rate 88 90 92 Respiratory 18 18 18 Rate Blood Pressure 104/79 108/72 107/78 Blood Pressure [Right Arm] O2 Sat by Pulse 97 98 95 Oximetry 09/11/23 09/12/23 09/12/23 20:16 01:13 04:02 Temperature Pulse Rate 92 74 78 Respiratory 16 16 16 Rate Blood Pressure 103/73 95/64 116/79 Blood Pressure [Right Arm] O2 Sat by Pulse 96 96 96 Oximetry 09/12/23 09/12/23 05:21 11:17 Temperature Pulse Rate 81 Respiratory 16 16 Rate Blood Pressure 94/64 Blood Pressure 112/78 [Right Arm] O2 Sat by Pulse 97 96 Oximetry Medical Decision Making - Medical Decision Making Was pt. sent in by a medical professional or institution (, [facility], [employer], urgent care, hospital, or long-term...) When possible be specific @ -No Did you speak to anyone other than the patient for history (EMS, parent, family, police, friend...)? What history was obtained from this source @ -Spoke with EMS Did you review nursing and triage notes (agree or disagree)? Why? @ -I reviewed and agree with nursing and triage notes Were old charts reviewed (outside hosp., previous admission, EMS record, old EKG, old radiological studies, urgent care reports/EKG's, long-term records)? Report findings @ -I reviewed patient's chart. She has been admitted several times for similar complaint Differential Diagnosis (chest pain, altered mental status, abdominal pain women, abdominal pain men, vaginal bleeding, weakness, fever, dyspnea, syncope, headache, dizziness, GI bleed, back pain, seizure, CVA, palpatations, mental health, musculoskeletal)? @ -Differential Weakness: Hypoglycemia, shock, sepsis, hyponatremia, anemia, infection, OK, ETOH, adverse medicine reaction, overdose, stroke, this is not meant to be an all-inclusive list. EKG interpreted by me (3pts min.). @ -Not done X-rays interpreted by me (1pt min.). @ -None done CT interpreted by me (1pt min.). @ -None done U/S interpreted by me (1pt. min.). @ -None done What testing was considered but not performed or refused? (CT, X-rays, U/S, labs)? Why? @ -None What meds were considered but not given or refused? Why? @ -None Did you discuss the management of the patient with other professionals (professionals i.e. , [facility], [employer], lab, RT, psych nurse, social science manager, cup setter lockstitch, teacher, career services officer, transplant case manager)? Give summary @ -Spoke with [facility] for admission Was smoking cessation discussed for >3mins.? @ -No Was critical care preformed (if so, how long)? @ -No Were there social determinants of health that impacted care today? How? (Homelessness, low income, unemployed, alcoholism, drug addiction, transportation, low edu. Level, literacy, decrease access to med. care, skilled nursing, rehab)? @ -No Was there de-escalation of care discussed even if they declined (Discuss DNR or withdrawal of care, Hospice)? DNR status @ -No What co-morbidities impacted this encounter? (DM, HTN, Smoking, COPD, CAD, Cancer, CVA, ARF, Chemo, Hep., AIDS, mental health diagnosis, sleep apnea, morbid obesity)? @ -Stiff man syndrome Was patient admitted / discharged? Hospital course, mention meds given and route, prescriptions, significant lab abnormalities, going to OR and other pertinent info. @ -Upon arrival patient was seen and evaluated in room 11. Thorough history a nd physical exam was performed. IV access has been established by EMS. Patient was given a cocktail of pain medications and muscle relaxers. I also give the patient steroids as she states that this helps her symptoms. Patient states that she normally has to be admitted for several days in order to break the cycle. She normally follows with Dr. Calles and is requesting a consult. I spoke with [facility] for admission and they were agreeable to this plan. Patient awaiting a bed on the floor in stable condition Undiagnosed new problem with uncertain prognosis? @ -No Drug Therapy requiring intensive monitoring for toxicity (Heparin, Nitro, Insulin, Cardizem)? @ -No Were any procedures done? @ -No Diagnosis/symptom? @ -Acute exacerbation of stiff man syndrome Acute, or Chronic, or Acute on Chronic? @ -Acute Uncomplicated (without systemic symptoms) or Complicated (systemic symptoms)? @ -Complicated Side effects of treatment? @ -No Exacerbation, Progression, or Severe Exacerbation? @ -No Poses a threat to life or bodily function? How? (Chest pain, USA, OK, pneumonia, PE, COPD, DKA, ARF, appy, cholecystitis, CVA, Diverticulitis, Homicidal, Suicidal, threat to staff... and all critical care pts) @ -No - Lab Data Result diagrams: 09/16/23 07:23 09/16/23 07:23 Lab Results 09/11/23 09/11/23 09/11/23 Range/Units 14:34 14:34 14:34 WBC 7.3 (3.8-10.6) k/uL RBC 4.08 (3.80-5.40) m/uL Hgb 13.2 (11.4-16.0) gm/dL Hct 38.3 (34.0-46.0) % MCV 93.8 (80.0-100.0) fL MCH 32.3 (25.0-35.0) pg MCHC 34.4 (31.0-37.0) g/dL RDW 12.4 (11.5-15.5) % Plt Count 220 (150-450) k/uL MPV 6.9 Neutrophils % 57 % Lymphocytes % 30 % Monocytes % 6 % Eosinophils % 5 % Basophils % 1 % Neutrophils # 4.1 (1.3-7.7) k/uL Lymphocytes # 2.2 (1.0-4.8) k/uL Monocytes # 0.4 (0-1.0) k/uL Eosinophils # 0.4 (0-0.7) k/uL Basophils # 0.1 (0-0.2) k/uL Sodium 136 L (137-145) mmol/L Potassium 4.7 (3.5-5.1) mmol/L Chloride 104 (98-107) mmol/L Carbon Dioxide 26 (22-30) mmol/L Anion Gap 6 mmol/L BUN 21 H (7-17) mg/dL Creatinine 1.10 H (0.52-1.04) mg/dL Est GFR (CKD-EPI)AfAm 72 (>60 ml/min/1.73 sqM) Est GFR (CKD-EPI)NonAf 62 (>60 ml/min/1.73 sqM) Glucose 79 (74-99) mg/dL Plasma Lactic Acid Yordan 1.1 (0.7-2.0) mmol/L Calcium 8.7 (8.4-10.2) mg/dL Total Bilirubin 0.3 (0.2-1.3) mg/dL AST 34 (14-36) U/L ALT 23 (4-34) U/L Alkaline Phosphatase 52 (38-126) U/L Creatine Kinase 129 (30-135) U/L Total Protein 7.8 (6.3-8.2) g/dL Albumin 3.9 (3.5-5.0) g/dL Disposition Clinical Impression: Stiff-man syndrome, Muscle spasm Disposition: ADMITTED IP TO THIS [facility] Condition: Stable Is patient prescribed a controlled substance at d/c from ED?: No Time of Disposition: 16:12 Decision to Admit Reason: Admit from EC Decision Date: 09/11/23 Decision Time: 16:12
[2023-09-11] MEDS: SODIUM CHLORIDE 0.9% 1,000 ML IV SCH (16:44)
[2023-09-11] MEDS: HYDROmorphone 1 MG/ML 1 ML SYRINGE IVP PRN (17:32)
[2023-09-11] MEDS ORDERED: ALBUTEROL NEBULIZED 2.5 MG/3 ML INHALATION PRN (19:10)
[2023-09-11] MEDS ORDERED: ALBUTEROL HFA INHALER INHALATION PRN (19:10)
[2023-09-11] MEDS: traZODone HCL 100 MG TAB PO SCH (20:15)
[2023-09-11] MEDS: MONTELUKAST 10 MG TAB PO SCH (20:15)
[2023-09-11] MEDS: PARoxetine 20 MG TAB PO SCH (20:21)
[2023-09-11] MEDS: DEXAMETHASONE SOD PHOSPHATE 4 MG/ML 1 ML VIAL IVP SCH (23:54)
[2023-09-12] MEDS: CYCLOBENZAPRINE 5 MG TAB PO PRN (00:07)
[2023-09-12 08:25] LABS: Basophils % (A) 0 %; Eosinophils % (A) 0 %; HCT 40.8 % (34.0-46.0); HGB 14.2 gm/dL (11.4-16.0); Lymphocytes # (A) 1.1 k/uL (1.0-4.8); Lymphocytes % (A) 15 %; MCH 32.8 pg (25.0-35.0); MCHC 34.7 g/dL (31.0-37.0); MCV 94.5 fL (80.0-100.0); Mean Platelet Volume 7.4; Monocytes # (A) 0.3 k/uL (0-1.0); Monocytes % (A) 3 %; Neutrophils # (A) 6.1 k/uL (1.3-7.7); Neutrophils % (A) 81 %; Platelet Count 224 k/uL (150-450); RBC 4.32 m/uL (3.80-5.40); RDW 12.5 % (11.5-15.5); WBC 7.5 k/uL (3.8-10.6)
[2023-09-12 08:26] LABS: African American GFR (CKD) 77 (>60 ml/min/1.73 sqM); Anion Gap 7 mmol/L; Blood Urea Nitrogen 21 mg/dL (7-17); Carbon Dioxide 24 mmol/L (22-30); Chloride 105 mmol/L (98-107); Glucose 89 mg/dL (74-99); Non-African American GFR(CKD) 67 (>60 ml/min/1.73 sqM); Potassium 4.9 mmol/L (3.5-5.1); Sodium 136 mmol/L (137-145)
[2023-09-12] MEDS: MELOXICAM 7.5 MG TAB PO SCH (10:56)
[2023-09-12] MEDS: LEVOTHYROXINE 75 MCG TAB PO SCH (10:56)
[2023-09-12] MEDS: CHOLECALCIFEROL 25 MCG (1000 IU) TABLET PO SCH (10:57)
[2023-09-12] MEDS: LORATADINE 10 MG TAB PO SCH (10:57)
[2023-09-12] MEDS ORDERED: HYDROmorphone 0.5 MG/0.5 ML SYRINGE IVP PRN (15:43)
[2023-09-12] MEDS ORDERED: TEMAZEPAM 15 MG CAP PO PRN (15:43)
--- NOTE | 2023-09-12 16:37 | XR ---
EXAM: XR chest 1V portable CLINICAL INDICATION:Female, 42 years old with history of chf; [facility] COMPARISON: 08/29/2022 TECHNIQUE: Chest single view. FINDINGS: Lines/tubes/devices: New right chest MediPort with catheter tip at the SVC/RA junction. Cardiomediastinum: Cardiac silhouette appears normal in size. Unremarkable mediastinal silhouette. No evidence of hilar enlargement. Vasculature: No increased pulmonary vasculature. Lungs/pleura: No edema, consolidation, pleural effusion, or pneumothorax. Bones/soft tissues: Bony thorax appears grossly intact as seen. Regional soft tissues appear unremarkable. IMPRESSION: No acute cardiopulmonary findings.
--- NOTE | 2023-09-12 16:57 | CT ---
EXAMINATION TYPE: CT brain wo con CT DLP: 995.50 mGycm, Automated exposure control for dose reduction was used. DATE OF EXAM: 09/12/2023 4:38 PM COMPARISON: 06/08/2022. CLINICAL INDICATION:Female, 42 years old with history of headache, headache. hx of stiffmans syndrome , TECHNIQUE: Brain: Axial CT images of the brain were obtained with coronal and sagittal reformats created and rev iewed. Contrast used: None. Oral contrast used: None. FINDINGS: Extra-axial spaces: No abnormal extra-axial fluid collections. Basilar cisterns are patent. Ventricular system: Within normal limits. Cerebral parenchyma: No increased attenuation to suggest acute intraparenchymal hemorrhage. The gra y-white matter interface appears maintained. No significant atrophy. There may be subtle cerebral w nba matter hypodensities, and possible focal lower midbrain hypoattenuation, not well assessed by CT . Cerebellum: No acute abnormality. Mass effect: No evidence of mass effect or midline shift. Intracranial vasculature: Unremarkable Soft tissues: No acute or concerning abnormality. Visualized orbits: Orbital contents appear grossly intact. Calvarium/osseous structures: No evidence of calvarial fracture. Paranasal sinuses and mastoid air cells: Clear. MRI is more sensitive for detecting acute processes such as infarct, and may be considered if clinica lly warranted. IMPRESSION: 1. No acute intracranial CT abnormality. 2. Possible mild white matter hypodensities, nonspecific. This can be seen with chronic microvascula r ischemic changes, demyelination (such as MS), sequela of vasculitis or migraines. Correlation with outpatient MRI may be of benefit for better evaluation.
[2023-09-12 19:16] LABS: Appearance,Urine Clear (Clear); Bilirubin,Urine Negative (Negative); Blood,Urine Negative (Negative); Color,Urine Colorless; Glucose,Urine (UA) Negative (Negative); Ketones,Urine Negative (Negative); Leukocyte Esterase,Urine Negative (Negative); Nitrite,Urine Negative (Negative); PH, Urine 5.5 (5.0-8.0); Protein,Urine Negative (Negative); Specific Gravity,Urine 1.013 (1.001-1.035); Urobilinogen,Urine <2.0 mg/dL (<2.0)
[2023-09-12] MEDS: HEPARIN SODIUM,PORCINE 5,000 UNIT/ML 1 ML VIAL SQ SCH (21:10)
--- NOTE | 2023-09-13 00:33 | HP ---
HISTORY AND PHYSICAL CHIEF COMPLAINT: Weakness and stiffness. HISTORY OF PRESENT ILLNESS: This is a 42-year-old woman with a past medical history of multiple medical problems including stiff-man syndrome with a past history of several admissions, had apparently COVID about a month ago. The patient does not apparently . The patient is complaining of generalized weakness and tiredness and the patient came to [facility] and admitted for further evaluation and treatment. The patient is receiving IVIG every month as an outpatient. The patient has received high-dose IV steroids previously. There is no history of any fever, rigors, or chills at this time. PAST MEDICAL HISTORY: Reviewed include stiff-man syndrome, asthma, pneumonia, peptic ulcer disease. MEDICATIONS: Prior to admission include home medications are trazodone. Dose and rest of medications noted. ALLERGIES: None. FAMILY HISTORY: History of cancer in the family. SOCIAL HISTORY: History of smoking and alcohol intake. REVIEW OF SYSTEMS: Fourteen-point review is negative except as mentioned earlier. PHYSICAL EXAMINATION: VITAL SIGNS: Pulse 83, blood pressure 106/74, respirations 16 HEENT: Conjunctivae normal. NECK: No JVD. CARDIOVASCULAR: S1, S2. RESPIRATIONS: Breath sounds diminished at the bases. ABDOMEN: Soft, nontender. LEGS: No edema. No swelling. NERVOUS SYSTEM: Diffusely weak and increased tone. SKIN: No ulcer, rash, bleeding. JOINTS: No active deforming arthropathy. LABORATORY DATA: CBC within normal limits. Sodium 136. ASSESSMENT: 1. Stiff-man syndrome, possibly acute exacerbation. 2. Hyponatremia. 3. History of recent COVID-19. 4. Asthma. 5. History of pneumonia. 6. History of tachycardia. 7. History of bulimia. 8. History of bariatric surgery. RECOMMENDATIONS AND DISCUSSION: This 42-year-old woman presented with multiple complex medical issues, we will monitor the patient closely. Continue current management and continue symptomatic treatment. Otherwise, at this time, I recommend resume the home medications and pain management. Also recommend high-dose IV steroids. Check for COVID. Obtain CT scan, portable chest x-ray also. Neurology consultation, neuro checks. PT, OT evaluation. Prognosis guarded because of multiple complex medical issues. Further recommendations to follow. See orders for further details. MMODL / IJN: [id number] / [facility]
[2023-09-13 07:05] LABS: Basophils % (A) 0 %; Eosinophils % (A) 0 %; HGB 12.4 gm/dL (11.4-16.0); Lymphocytes # (A) 0.8 k/uL (1.0-4.8); Lymphocytes % (A) 9 %; MCH 32.5 pg (25.0-35.0); MCHC 33.6 g/dL (31.0-37.0); MCV 96.7 fL (80.0-100.0); Mean Platelet Volume 7.3; Monocytes # (A) 0.2 k/uL (0-1.0); Monocytes % (A) 2 %; Neutrophils # (A) 8.1 k/uL (1.3-7.7); Neutrophils % (A) 89 %; Platelet Count 205 k/uL (150-450); RBC 3.83 m/uL (3.80-5.40); RDW 12.4 % (11.5-15.5); WBC 9.1 k/uL (3.8-10.6)
[2023-09-13 07:29] LABS: African American GFR (CKD) >90 (>60 ml/min/1.73 sqM); Anion Gap 5 mmol/L; Blood Urea Nitrogen 19 mg/dL (7-17); Calcium 8.5 mg/dL (8.4-10.2); Carbon Dioxide 26 mmol/L (22-30); Chloride 106 mmol/L (98-107); Glucose 102 mg/dL (74-99); Non-African American GFR(CKD) 84 (>60 ml/min/1.73 sqM); Potassium 4.7 mmol/L (3.5-5.1); Sodium 137 mmol/L (137-145)
--- NOTE | 2023-09-13 10:37 | P.CON ---
Consult Note - . Consult date: 09/13/23 Assessment/Plan:: this is a 42-year-old lady who is well known to our clinic clinic. She is diagnosed with stiff person syndrome with widespread body pain and muscle spasm. The patient has been admitted to the hospital for couple of days now due to an exacerbation of her pain and muscle spasm. She has been receiving IV steroids and Dilaudid IV for her pain. Her medications as an outpatient include: Percocet 10 mg 3 times a day, Valium 5 mg twice a day, Flexeril, and IVIG. The patient is reporting an improvement in her pain today however she is still having difficulty ambulating because of weakness in both legs. She still has some pain in the lower back and legs bilaterally. By physical exam she is alert oriented 3 in no apparent distress. She has weakness in the lower extremities to 3 out of 5 bilaterally for knee flexion 4 out of 5 for ankle jerks and extension. Recommendations: Ms Nichols has been treated for stiff person syndrome with a combination of muscle relaxants, opioids, and IVIG with occasional steroids with exacerbations. I do not think that there is anything much we can do except for replacing Flexeril with baclofen 10 mg twice a day ;the patient however states that she tried baclofen before with limited improvement in her spasm. It is noted in the literature that plasmapheresis may help with extreme cases, but I do not think that the patient needs that now. I recommend physical therapy to help with the lower extremity weakness. I also recommend to try to shorten the period of using steroids and IV Dilaudid as much as possible. The patient is to continue using Valium 5 mg twice a day and Percocet 10 mg 3 times a day. I thank you for the consultation
[2023-09-13] MEDS: oxyCODONE-APAP 10-325MG 1 EACH TAB PO PRN (12:42)
[2023-09-13] MEDS ORDERED: DEXTROSE 50% SYRINGE 50 ML IVP PRN ×2 (14:14)
[2023-09-13] MEDS ORDERED: methylPREDNISolone SOD SUCCI 125 MG/2 ML VIAL IV SCH (14:15)
[2023-09-13] MEDS: methylPREDNISolone SOD SUCCIN 500 MG in SODIUM CHLORIDE 0.9% 100 ML IVPB SCH (17:10)
[2023-09-13] MEDS: INSULIN ASPART (NovoLOG) 100 UNIT/ML VIAL SQ SCH (17:13)
[2023-09-13 17:14] LABS: Glucose,Whole Blood 121 mg/dL (70-110)
[2023-09-13 20:59] LABS: Glucose,Whole Blood 163 mg/dL (70-110)
[2023-09-13] MEDS: DOCUSATE 100 MG CAP PO SCH (21:23)
[2023-09-13] MEDS: PANTOPRAZOLE 40 MG/10 ML VIAL IVP SCH (21:24)
[2023-09-13] MEDS: BACLOFEN 10 MG TAB PO SCH (21:24)
--- NOTE | 2023-09-13 21:57 | PN ---
PROGRESS NOTE DATE OF SERVICE: 09/13/2023 SUBJECTIVE: This is a 42-year-old woman was admitted with possible stiff man, recent exacerbations, is complaining of severe pain and weakness. The patient is on IV steroids. The patient is not making any significant recovery at this time, I would recommend possibly high-dose IV steroids. Neurology is following the patient. Pain management is consulted. PAST MEDICAL HISTORY: Reviewed. REVIEW OF SYSTEMS: A 14-point review is negative except as mentioned. CURRENT MEDICATIONS: Reviewed include Decadron, dose and rest of medications reviewed. PHYSICAL EXAMINATION: VITAL SIGNS: Pulse 83, blood pressure 110/70, respirations 20. HEENT: Conjunctivae normal. NECK: No jugular venous distention. CARDIOVASCULAR: S1, S2. RESPIRATIONS: Diminished at the bases, few scattered rhonchi. ABDOMEN: Soft. LEGS: No edema. NERVOUS SYSTEM: Diffusely weak and tone is increased. LABORATORY DATA: Reviewed. ASSESSMENT: 1. 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 2. Severe diffuse aches and pains, myalgias. 3. Hyponatremia. 4. History of recent COVID-19. 5. Asthma. 6. History of pneumonia. 7. History of tachycardia. 8. History of bulimia. 9. History of bariatric surgery. RECOMMENDATIONS: Recommended to continue current management, continue symptomatic treatment, otherwise I would also recommend to evaluate the patient for inflammatory markers, otherwise symptomatic treatment, possible high-dose IV steroids. We will discuss with Neurology. Further recommendations to follow. MMODL / VICKIEN: [id number] /
--- NOTE | 2023-09-14 00:45 | P.CNNES ---
History of Present Illness Consult date: 09/13/23 Requesting physician: Alexandrea Schultz Reason for Consult: Stiff man syndrome History of Present Illness: Patient is a 42-year-old well-known to neurology service for her history of stiff man syndrome with multiple admissions to the hospital in the past, came with another episode of flareup of her stiff person syndrome. Patient states that she suffered from COVID about a month ago. She has not bounced back from it yet. She tried to push fluids and hydration, but has not worked. She is progressively getting worse. She could not move. She has received her IVIG just past week on Saturday and Saturday, 09/03/2023 and 09/04/2023. She believes steroids will help, but if she takes orally, it upsets her stomach bad. Today she is not doing well. She tried Valium, Percocet and has been started on Dilaudid as well. Patient also tried Botox injection last Saturday on 09/04/2023. She receives 400 units of Botox, mainly involving the neck and shoulder region. Patient states that her leg spasms are so much that it is harder to walk. She is trying to eat soft food, otherwise she chokes more often. Patient states that she started having symptoms of stiff person syndrome in 2016. At first it was felt that she may have MS. Patient was diagnosed with stiff person syndrome in December 2021 after she was found to have elevated deondre antibodies and abnormal EMG testing. She follows up with neurologist at [facility]. Patient was started on IVIG in February 2022. She receives IVIG 45 g/d for 2 consecutive days of a week (Saturday and Saturday), once every month. Patient says that IVIG has helped with her total body spasms, but she still gets spasms every day but those are manageable and involves some part of the body like feet, leg, left more than right, sometimes face. Patient usually takes Percocet 10 mg and Valium 5 mg as needed for spasms. She was previously given fentanyl but produces too much drowsiness. She is to get flareups about 4 times a week before IVIG was started but now it has much improved. Patient states that it affects her swallowing and she sometimes chokes. Patient also gets Botox injection 400 Units for cervical dystonia by Dr. Grant with [facility]. Patient's testing showed normal UA, negative influenza screen, RSV and co ronavirus PCR. Normal CBC, D-dimer. Basic metabolic panel is normal. CRP is less than 0.5, ESR 18. Patient's last MRI of the brain from 07/01/2019 reveals single small white matter high increased signal in left frontal lobe slightly increased in size compared to old exam. 3 mm similar focus right posterior frontal lobe white matter unchanged. Otherwise negative exam. Patient has never smoked, does not drink alcohol, denies hypertension or diabetes. 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 Patient has long-standing history of asthma, requiring multiple, numerous times use of steroids. 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 History of meningitis when she was [age] year old. Patient had elevated DEONDRE antibodies 22 (< 5) on 12/20/2022. Her B12 was 460 on 12/20/2022, with folate 6.90. TSH was mildly elevated at 8.13 on 12/19/2022. Patient had a normal CSF on 07/01/2019 with 3 RBCs, 0 WBC, proteins 23, glucose 51. Patient previously had normal rheumatoid factor, dsDNA, complements C3 and C4 whereas CH 50 was slightly elevated 150/144. Hepatitis, HIV negative. KEVIN negative. CCP negative. Patient currently takes Xolair 300 mg subcu every 30 days, Paxil 20 mg, Imitrex, Botox injections 400 units subcu every 70 days, vitamin D, Panzyga 10% infusion IV every 28 days, Singulair, trazodone 100 mg at bedtime, folic acid 0.5 mg daily, Pepcid, lactulose, Flexeril and Reglan. Review of Systems All review of systems reviewed, noncontributory except the pertinent positive and negative as mentioned in HPI. 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, cervical dystonia-gets botox injections every 2 weeks, high blood pressure and rapid heart rate 06/30/19 to 07/05/19, COVID 12/30/20 and 07/2023, Stiff man syndrome History of Any Multi-Drug Resistant Organisms: MRSA Date of last positivie culture/infection: 2014 MDRO Source:: rt Groin Past Surgical History: Bariatric Surgery, Cholecystectomy, Joint Replacement, Orthopedic Surgery, Tonsillectomy Additional Past Surgical History / Comment(s): Tilt table test, lap band 2007; NASAL FX REPAIR , ORIF LT ELBOW X2, PAIN PROCEDURES for migraines, Surgery on her cervix for cancer, rt foot surgery(bone tumor removal), cysto/lithotripsy , left hip replacement 12/2018, lumbar puncture, cervical biopsy in August @[facility] Past Anesthesia/Blood Transfusion Reactions: Postoperative Nausea & Vomiting (PONV) Past Psychological History: Anxiety, Depression Additional Psychological History / Comment(s): . Smoking Status: Never smoker Past Alcohol Use History: None Reported Past Drug Use History: None Reported Additional Drug Use History / Comment(s): . - Past Family History Mother Family Medical History: Pneumonia Additional Family Medical History / Comment(s): Mother of pneumonia. Patient's son of brain cancer, last mother and father both liver cancer Son(s) Family Medical History: Cancer Additional Family Medical History / Comment(s): Son of brain cancer. Father Family Medical History: Cancer Additional Family Medical History / Comment(s): Liver Cancer. Medications and Allergies Home Medications Medication Instructions Recorded Confirmed Type Omalizumab [Xolair] 300 mg SQ Q30D 07/10/18 09/11/23 History PARoxetine [Paxil] 20 mg PO HS 12/18/19 09/11/23 History Loratadine [Claritin] 10 mg PO DAILY 06/13/20 09/11/23 History Botox Neck Injection 400 mg SQ Q70D 08/30/20 09/11/23 History Albuterol Sulfate [Ventolin HFA] 2 puff INHALATION RT-Q6H PRN 09/30/20 09/11/23 History EPINEPHrine (Auto Inject) [Epipen] 0.3 mg IM ONCE PRN 03/01/22 09/11/23 History Panzyga 10% Infusion 1 dose IV Q28D 03/01/22 09/11/23 History Montelukast [Singulair] 10 mg PO HS 12/19/22 09/11/23 History traZODone HCL [Desyrel] 100 mg PO HS 12/19/22 09/11/23 History Levothyroxine Sodium [Synthroid] 150 mcg PO DAILY 04/08/23 09/11/23 History diazePAM [Valium] 5 mg PO Q12H PRN 04/08/23 09/11/23 History Cholecalciferol (Vitamin D3) 50 mcg PO DAILY 07/23/23 09/11/23 History [Vitamin D3 (50 Mcg = 2000 Iu)] Naloxone HCl [Narcan] 4 mg NASAL DIRECTED PRN 07/23/23 09/11/23 History Cyclobenzaprine [Flexeril] 5 mg PO QID PRN 30 Days #120 tab 08/14/23 09/11/23 Rx oxyCODONE-APAP 10-325MG [Percocet 1 tab PO TID PRN 30 Days #90 tab 08/14/23 09/11/23 Rx 10-325 mg] Albuterol Nebulized [Ventolin 2.5 mg INHALATION RT-QID PRN 09/11/23 09/11/23 History Nebulized] Meloxicam [Mobic] 7.5 mg PO DAILY 09/11/23 09/11/23 History Solu-Medrol 125mg/2ml 125 mg IV Q28D 09/11/23 09/11/23 History Allergies Allergy/AdvReac Type Severity Reaction Status Date / Time No Known Allergies Allergy Verified 09/11/23 17:16 Physical Examination - Vital Signs Vital Signs: Vital Signs Temp Pulse Resp BP BP Pulse Ox 09/13/23 19:35 97.8 F 82 16 111/78 96 09/13/23 19:19 18 09/13/23 14:55 97.8 F 86 18 105/68 93 L 09/13/23 07:55 98.3 F 83 20 110/74 93 L 09/13/23 02:00 97.5 F L 67 20 110/76 95 Intake and Output 09/13/23 09/13/23 09/14/23 14:59 22:59 06:59 Intake Total 600 925 Balance 600 925 Intake: Intake, IV Titration 600 925 Amount Sodium Chloride 0.9% 1, 600 825 000 ml @ 75 mls/hr IV . [id number] [facility] Rx#:[id number] methylPREDNISolone SOD 100 SUCCIN 500 mg In Sodium Chloride 0.9% 100 ml @ 100 mls/hr IVPB Q12H [facility] Rx#:[id number] Other: Voiding Method Bedside Commode Bedside Commode # Voids 1 Patient is a middle aged female, who appears to be in mild distress because of the spasms. She is laying in the bed. The room is dark. Patient does have a flat affect. Patient is alert awake oriented to time place and person. Speech and language functions are normal. Patient can name and repeat very well. No aphasia or dysarthria. Attention, concentration and fund of knowledge is adequate. On cranial nerve examination, pupils are equal, round and reacting to light, visual cervantes are full on confrontation, with no neglect on double simultaneous stimulation. Extraocular muscles are intact with no nystagmus. Face is symmetric, tongue protrudes to the midline. Palatal elevation and sensation normal, hearing and shoulder shrug normal, facial sensation normal. On muscle strength testing, there is no pronator drift. The strength was difficult to assess because of the spasms and giveaway weakness. Overall her muscle strength is (right/left) deltoid 5/5, triceps 5-/5-, biceps 5/5, industry consultant 3/3 with significant stiffness not able to make a full industry consultant. In the lower limbs hip flexion is 3-/3-. She holds her foot plantarflexed and inverted bilaterally and has spasm. She is also holding her hands with fingers snf flexed and wrists partly flexed. Deep tendon reflexes are symmetric 2+ in the arms and biceps and brachioradialis, 3 at the knees, 2 ankles and plantars are flat. Patient is holding her ankles and toes stiff. Sensory to touch is equal with no neglect on double simultaneous stimulation. Cerebellar function showed no ataxia for excmfi-oh-pjpb testing. No dysdiadochokinesia. Cannot perform in the lower limbs. Tone and bulk of muscles normal. Gait deferred.. On general examination, there is no carotid bruit or murmur, S1-S2 audible. Chest is clear on consultation. Abdomen is soft nontender. No organomegaly, bowel sounds present. Peripheral pulses are present. No peripheral edema. 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 * Patient developed recent exacerbation with body spasms, since she suffered from COVID about a month ago. * Asthma * Seizure * Hypothyroidism * Hx of Bulimia * Herniated disc * Degenerative disc disease * Cervical dystonia, gets Botox for it. * History of left hip AVN, status post arthroplasty age 38 Plan: * Start Solu-Medrol 500 mg IV every 12 hours. * Continue medications including pain medications. * Continue Protonix 40 mg IV twice daily for gastric ulcer prophylaxis. * DVT prophylaxis: Patient on heparin 5000 units subcu every 12 hour. * Dr. Shen covering neurology service over the weekend. * Thank you for the consult.
[2023-09-14 07:13] LABS: Glucose,Whole Blood 107 mg/dL (70-110)
[2023-09-14 09:19] LABS: Basophils # (A) 0.01 X 10*3/uL (0.00-0.10); Basophils % (A) 0.1 %; Eosinophils # (A) 0 X 10*3/uL (0.04-0.35); Eosinophils % (A) 0 %; HCT 35.7 % (37.2-46.3); HGB 11.9 g/dL (12.0-15.0); Lymphocytes # (A) 0.57 X 10*3/uL (0.90-5.00); Lymphocytes % (A) 6.6 %; MCH 32.7 pg (27.0-32.0); MCHC 33.3 g/dL (32.0-37.0); MCV 98.1 FL (80.0-97.0); Mean Platelet Volume 9.4 FL (9.5-12.2); Monocytes # (A) 0.04 X 10*3/uL (0.20-1.00); Monocytes % (A) 0.5 %; NRBC Per 100 WBC 0 X 10*3/uL (0.00-0.01); Neutrophils # (A) 8.02 X 10*3/uL (1.80-7.70); Neutrophils % (A) 92.5 %; Platelet Count 212 X 10*3/uL (140-440); RBC 3.64 X 10*6/uL (4.10-5.20); RDW 12.4 % (11.5-14.5); WBC 8.67 X 10*3/uL (4.50-10.00)
[2023-09-14 10:49] LABS: Blood Urea Nitrogen 16.1 mg/dL (9.0-27.0); Calcium 8.5 mg/dL (8.7-10.3); Carbon Dioxide 21.8 mmol/L (21.6-31.8); Chloride 106 mmol/L (96-109); Glucose 121 mg/dL (70-110); Potassium 4.6 mmol/L (3.5-5.5); Sodium 138 mmol/L (135-145)
[2023-09-14 12:08] LABS: Glucose,Whole Blood 86 mg/dL (70-110)
--- NOTE | 2023-09-14 15:15 | P.PN ---
Subjective Progress Note Date: 09/14/23 Principal diagnosis: Stiff person syndrome The patient is seen in neurologic follow-up on September 14, 2023, in cross coverage for Dr. Meyer, in collaboration with Amina Delgado, via teleneurology. Patient's chart has been reviewed. The patient reports that she has been receiv ing IV IgG with her neurologist down at the [facility]. She most recently received an infusion, 1 week ago. She says that she had been doing okay however approximately 1 month ago, she had COVID-19 and since that time has been having more more difficulty with her stiff person syndrome. She says she attempted to get a hold of her neurologist however was unsuccessful. The patient came into the emergency department because of increased stiffness and pain in her muscles. She says that she has been treated with steroids in the past and it is generally helpful. This morning, the patient reports that her arms are moving a little bit better. They are somewhat less stiff and painful. She tends to get worse at night. With this flareup, the patient noted that her arms tended to be's more severe than usual. Objective - Vital Signs Vital signs: Vital Signs Temp 97.8 F 09/14/23 12:49 Pulse 78 09/14/23 12:49 Resp 16 09/14/23 12:49 BP 131/83 09/14/23 12:49 Pulse Ox 94 L 09/14/23 12:49 FiO2 Intake & Output 09/13/23 09/14/23 09/14/23 18:59 06:59 18:59 Intake Total 1525 1445 Balance 1525 1445 Intake: Intake, IV Titration 1525 965 Amount Sodium Chloride 0.9% 1, 1425 865 000 ml @ 75 mls/hr IV . [id number] [facility] Rx#:[id number] methylPREDNISolone SOD 100 100 SUCCIN 500 mg In Sodium Chloride 0.9% 100 ml @ 100 mls/hr IVPB Q12H [facility] Rx#:[id number] Oral 480 Other: Voiding Method Bedside Commode Bedside Commode Bedside Commode # Voids 1 1 1 - Exam General: The patient is awake and alert. She is well-nourished. She is reclining in the bed. She is in no acute acute distress. On observation, the patient is seen bending her legs and moving her arms and readjusting her position in the bed, without difficulty. HEENT: Head is atraumatic, normocephalic. Fundus not visualized. There is no scleral icterus. Mucous membranes are moist. Heart: Regular rate and rhythm Lungs: Clear to auscultation Extremities: Without edema Neurological examination Mental status: The patient is awake, alert and oriented x 3. Her speech is clear. There is no dysarthria or aphasia. Cranial nerves: 2-12 grossly intact Motor: Strength is 5/5 throughout. The patient's right upper extremity tone is greater than the left. Her left lower extremity tone is greater than the right. - Labs CBC & Chem 7: 09/14/23 04:17 09/14/23 04:17 Labs: Abnormal Lab Results - Last 24 Hours (Table) 09/13/23 09/13/23 09/14/23 Range/Units 17:12 20:41 04:17 RBC 3.64 L (4.10-5.20) X 10*6/uL Hgb 11.9 L (12.0-15.0) g/dL Hct 35.7 L (37.2-46.3) % MCV 98.1 H (80.0-97.0) FL MCH 32.7 H (27.0-32.0) pg MPV 9.4 L (9.5-12.2) FL Neutrophils # 8.02 H (1.80-7.70) X 10*3/uL Lymphocytes # 0.57 L (0.90-5.00) X 10*3/uL Monocytes # 0.04 L (0.20-1.00) X 10*3/uL Eosinophils # 0 L (0.04-0.35) X 10*3/uL Glucose (70-110) mg/dL POC Glucose (mg/dL) 121 H 163 H (70-110) mg/dL Calcium (8.7-10.3) mg/dL 09/14/23 Range/Units 04:17 RBC (4.10-5.20) X 10*6/uL Hgb (12.0-15.0) g/dL Hct (37.2-46.3) % MCV (80.0-97.0) FL MCH (27.0-32.0) pg MPV (9.5-12.2) FL Neutrophils # (1.80-7.70) X 10*3/uL Lymphocytes # (0.90-5.00) X 10*3/uL Monocytes # (0.20-1.00) X 10*3/uL Eosinophils # (0.04-0.35) X 10*3/uL Glucose 121 H (70-110) mg/dL POC Glucose (mg/dL) (70-110) mg/dL Calcium 8.5 L (8.7-10.3) mg/dL Assessment and Plan Assessment: 42-year-old female with 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 * Patient developed recent exacerbation with body spasms, since she suffered from COVID about a month ago. * Asthma * Seizure * Hypothyroidism * Hx of Bulimia * Herniated disc * Degenerative disc disease * Cervical dystonia, gets Botox for it. * History of left hip AVN, status post arthroplasty age 38 Plan: 1. Continue Solu-Medrol 500 mg twice daily at this time 2. Continue patient's muscle relaxers 3. Physical therapy to evaluate and treat Time with Patient: Greater than 30 (40 minutes were spent caring for this patient today including, obtaining history, examining the patient, reviewing chart documentation, labs, placing orders and creating this note)
[2023-09-14 16:59] LABS: Glucose,Whole Blood 154 mg/dL (70-110)
[2023-09-14 20:32] LABS: Glucose,Whole Blood 107 mg/dL (70-110)
[2023-09-15 07:11] LABS: Glucose,Whole Blood 106 mg/dL (70-110)
[2023-09-15 11:59] LABS: Glucose,Whole Blood 109 mg/dL (70-110)
--- NOTE | 2023-09-15 14:09 | PN ---
PROGRESS NOTE DATE OF SERVICE: 09/15/2023 SUBJECTIVE: This 42-year-old woman was admitted with stiff person syndrome. She is on high-dose IV steroids. The patient also has diffuse aches and pains. No chest pain, no palpitations. Able to ambulate. OBJECTIVE: VITAL SIGNS: Pulse is 73, blood pressure 130/80, respirations 16. CHEST: Scattered rhonchi and crackles. ABDOMEN: Soft. NERVOUS SYSTEM: Tone is increased. LABORATORY DATA: Reviewed. ASSESSMENT: 1. 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 2. Diffuse aches and pains, myalgia. 3. Hyponatremia. 4. History of recent COVID-19. 5. Asthma. 6. Pneumonia. 7. Tachycardia history. 8. History of bulimia. 9. History of bariatric surgery. RECOMMENDATIONS AND DISCUSSION: Recommended to continue current management, continue symptomatic treatment. Otherwise, we will continue with high-dose IV steroids. Increase ambulation. Pain management. Closely follow with Neurology. Guarded prognosis. Further recommendations to follow. MMODL / IJN: [id number] /
[2023-09-15 17:16] LABS: Glucose,Whole Blood 123 mg/dL (70-110)
[2023-09-15 20:07] LABS: Glucose,Whole Blood 119 mg/dL (70-110)
[2023-09-16 07:28] LABS: Glucose,Whole Blood 124 mg/dL (70-110)
[2023-09-16 11:16] LABS: Basophils # (A) 0 X 10*3/uL (0.00-0.10); Basophils % (A) 0 %; Eosinophils # (A) 0 X 10*3/uL (0.04-0.35); Eosinophils % (A) 0 %; HCT 38.9 % (37.2-46.3); HGB 13.3 g/dL (12.0-15.0); Lymphocytes # (A) 0.58 X 10*3/uL (0.90-5.00); Lymphocytes % (A) 6.8 %; MCH 32.8 pg (27.0-32.0); MCHC 34.2 g/dL (32.0-37.0); MCV 95.8 FL (80.0-97.0); Mean Platelet Volume 9.2 FL (9.5-12.2); Monocytes # (A) 0.17 X 10*3/uL (0.20-1.00); NRBC Per 100 WBC 0 X 10*3/uL (0.00-0.01); Neutrophils # (A) 7.77 X 10*3/uL (1.80-7.70); Neutrophils % (A) 90.7 %; Platelet Count 198 X 10*3/uL (140-440); RBC 4.06 X 10*6/uL (4.10-5.20); WBC 8.56 X 10*3/uL (4.50-10.00)
[2023-09-16 11:27] LABS: Blood Urea Nitrogen 25.4 mg/dL (9.0-27.0); Calcium 8.4 mg/dL (8.7-10.3); Carbon Dioxide 23.7 mmol/L (21.6-31.8); Chloride 103 mmol/L (96-109); Glucose 124 mg/dL (70-110); Sodium 138 mmol/L (135-145)
[2023-09-16 12:21] LABS: Glucose,Whole Blood 123 mg/dL (70-110)
[2023-09-16 17:00] LABS: Glucose,Whole Blood 154 mg/dL (70-110)
--- NOTE | 2023-09-16 18:00 | P.PN ---
Subjective Progress Note Date: 09/16/23 I am seeing the patient for the first time during this admission. Please refer to Dr. Meyer and Hermelinda's notes for further details. patient stated that she's having spasm with history of last of person syndrome. The patient is known to the neurology team from prior hospital visit. She stated that she is following up with Dr. Jones (neurologist) over at [facility] this year but I notified her that Dr. Jones does no longer work for [facility] and not working for them in 2023. she stated she was following-up with a different neurologist at [facility] for Botox for her Migraine. She was started on Solu-Medrol in our facility. She is feeling better than initial presentation. Objective - Vital Signs Vital signs: Vital Signs Temp 98.5 F 09/16/23 12:08 Pulse 59 L 09/16/23 12:08 Resp 16 09/16/23 12:08 BP 165/94 09/16/23 12:08 Pulse Ox 95 09/16/23 12:08 FiO2 Intake & Output 09/15/23 09/16/23 09/16/23 18:59 06:59 18:59 Other: Voiding Method Bedside Commode # Voids 3 3 2 - Exam General: Lying in bed and is not in acute distress. Neuro: The patient is awake, alert, oriented to self, place and time. Is following simple commands. No aphasia or neglect. Pupils are round. Visual field are full to confrontation. EOM intact and no nystagmus. No facial weakness. No dysarthria. Motor: Strength is limited because of her spasm but felt there is component of effort related. - Labs CBC & Chem 7: 09/16/23 07:23 09/16/23 07:23 Labs: Abnormal Lab Results - Last 24 Hours (Table) 09/15/23 09/16/23 09/16/23 Range/Units 20:01 07: 07:23 RBC 4.06 L (4.10-5.20) X 10*6/uL MCH 32.8 H (27.0-32.0) pg MPV 9.2 L (9.5-12.2) FL Neutrophils # 7.77 H (1.80-7.70) X 10*3/uL Lymphocytes # 0.58 L (0.90-5.00) X 10*3/uL Monocytes # 0.17 L (0.20-1.00) X 10*3/uL Eosinophils # 0 L (0.04-0.35) X 10*3/uL BUN/Creatinine Ratio 25.40 H (12.00-20.00) Ratio Glucose 124 H (70-110) mg/dL POC Glucose (mg/dL) 119 H (70-110) mg/dL Calcium 8.4 L (8.7-10.3) mg/dL 09/16/23 09/16/23 09/16/23 Range/Units 07:27 12:12 16:59 RBC (4.10-5.20) X 10*6/uL MCH (27.0-32.0) pg MPV (9.5-12.2) FL Neutrophils # (1.80-7.70) X 10*3/uL Lymphocytes # (0.90-5.00) X 10*3/uL Monocytes # (0.20-1.00) X 10*3/uL Eosinophils # (0.04-0.35) X 10*3/uL BUN/Creatinine Ratio (12.00-20.00) Ratio Glucose (70-110) mg/dL POC Glucose (mg/dL) 124 H 123 H 154 H (70-110) mg/dL Calcium (8.7-10.3) mg/dL Assessment and Plan Assessment: 42-year-old female with 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 * Patient developed recent exacerbation with body spasms, since she suffered from COVID about a month ago. I feel there is effort related on examination and unsure if also have functional component. Not following-up with her neurologist for her spasm. * Asthma * Seizure * Hypothyroidism * Hx of Bulimia * Herniated disc * Degenerative disc disease * Cervical dystonia, gets Botox for it. * History of left hip AVN, status post arthroplasty age 38 Plan: 1. On Solu-Medrol 500 mg twice daily at this time and will stop toward end of tow 2. Continue patient's muscle relaxers 3. Physical therapy to evaluate and treat 4. she was notified to follow-up with neurologist as outpatient for her muscle spasm/stiff Person's syndrome. She has not followed-up for past one year. If by tomorrow is doing well then is clear from neurological perspective. The plan is discussed with primary team N.P. Time with Patient: Less than 30
--- NOTE | 2023-09-16 18:57 | P.PN ---
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 Patient reports he follows with a neurologist out of [facility] although currently looking for a new one for some time. Patient reports she received Botox with the specialist about a month ago. Patient is maintained on IV steroids high-dose with neurology following and awaiting PT/OT therapy evaluation. Patient reports she attempted to work with physical therapy although had increasing muscle spasms and pain and required IV Valium for the spasms. Patient encouraged to increase activity as tolerated and get up out of the bed more often. PT/OT therapy to reevaluate in AM. Patient will be returning home and refusing rehab at this time. Review of systems: Constitutional: No reports of fatigue, fever, or chills Cardiovascular: No reports of chest pain or palpitations Respiratory: No reports of shortness of breath or cough GI: No reports of nausea, no reports of vomiting, no diarrhea, reports passing gas : No reports of dysuria or retention Neurovascular: reports of generalized weakness, continued muscle spasms and cramps with pain All medications have been reviewed PHYSICAL EXAMINATION: GENERAL: The patient is alert and oriented x4, Well developed, well nourished., Ill-appearing elderly appearing HEENT: Pupils are round and equally reacting to light. EOMI. no scleral icterus. No conjunctival pallor. Normocephalic, atraumatic. No pharyngeal erythema. No th yromegaly. CARDIOVASCULAR: S1 and S2 muffled PULMONARY: diminished breath sounds bilaterally with no wheezing or rhonchi noted. ABDOMEN: soft. Nontender on exam. non-distended, normoactive bowel sounds. No palpable organomegaly. MUSCULOSKELETAL: No joint swelling or deformity. EXTREMITIES: No cyanosis, clubbing, or pedal edema. NEUROLOGICAL: Gross neurological examination did not reveal any focal deficits. Diffuse weakness SKIN: No rashes. Assessment: Stiff person syndrome, acute exacerbation Diffuse aches and pains with myalgia Hyponatremia secondary to poor oral intake History of recent COVID approximately 1 month ago Asthma, not in exacerbation History of tachycardia History of bulimia History of bariatric surgery Gait dysfunction polypharmacy GI prophylaxis DVT prophylaxis Full code Plan: Recommend to continue with current medications and management with neurology nas denise. Patient maintained on high-dose steroids IV showing some minimal improvements Patient reports she was attempting to work with physical therapy today and had a major muscle spasm requiring IV Valium. Encouraged increase activity as tolerated and will have physical therapy reevaluate tomorrow Patient to reestablish with a new neurologist outpatient as her neurologist has not been working for over a year Patient to continue with bowel regimen Due to multiple complex medical issues, prognosis is guarded Probable discharge in 24 hours The impression and plan of care has been dictated by Alexandrea Schultz, nurse practitioner as directed. Dr. Maribel MD I have performed a history and examination and MDM of this patient, discussed the same with the dictator, and agree with the dictator's assessment and plan as written ,documented as a scribe. Based on total visit time, I have performed more than 50% of the visit. Any additional findings or plans will be noted. Objective - Vital Signs Vital signs: Vital Signs Temp 98.4 F 09/16/23 07:23 Pulse 58 L 09/16/23 07:23 Resp 16 09/16/23 07:23 BP 149/89 09/16/23 07:23 Pulse Ox 95 09/16/23 07:23 FiO2 Intake & Output 09/15/23 09/16/23 09/16/23 18:59 06:59 18:59 Other: Voiding Method Bedside Commode # Voids 3 3 - Labs CBC & Chem 7: 09/16/23 07:23 09/16/23 07:23 Labs: Abnormal Lab Results - Last 24 Hours (Table) 09/15/23 09/15/23 09/16/23 Range/Units 17:14 20:01 07:27 POC Glucose (mg/dL) 123 H 119 H 124 H (70-110) mg/dL
[2023-09-16] MEDS: HYDROmorphone 0.5 MG/0.5 ML SYRINGE IVP PRN (19:45)
[2023-09-16 20:11] LABS: Glucose,Whole Blood 155 mg/dL (70-110)
[2023-09-17 07:28] LABS: Glucose,Whole Blood 114 mg/dL (70-110)
[2023-09-17 08:10] VITALS: RESP 16
[2023-09-17 12:17] LABS: Glucose,Whole Blood 76 mg/dL (70-110)
[2023-09-17 12:45] VITALS: BP 156/95; PULSE 61; TEMP 97.6
--- NOTE | 2023-09-20 11:40 | P.DS ---
Providers Date of admission: 09/11/23 16:15 Expected date of discharge: 09/17/23 Attending physician: Mark Montano MD Consults: 09/11/23 16:12 Consult Physician Urgent Consulting Provider: Fabien Kelly Consult Reason/Comments: mylagias, stiffman syndrome Do you want consulting provider notified?: Yes 09/12/23 15:19 Consult Physician Urgent Consulting Provider: Nunu Meyer Consult Reason/Comments: stiff man syndrome Do you want consulting provider notified?: Yes Primary care physician: Slade Gonzalez Hospital Course: Final diagnosis Stiff person syndrome, acute exacerbation Diffuse aches and pains with myalgia Hyponatremia secondary to poor oral intake, improved History of recent COVID approximately 1 month ago Asthma, not in exacerbation History of tachycardia History of bulimia History of bariatric surgery Gait dysfunction polypharmacy GI prophylaxis DVT prophylaxis Full code Discharge disposition Patient is being discharged in a stable condition with guarded prognosis to home. Patient will follow-up with Dr. Gonzalez in the outpatient setting upon discharge. Patient is to continue with current medications as prescribed and close outpatient follow-up with neurologist as well as pain management as scheduled. Total time taken is greater than 35 minutes. Hospital course This is a 42-year-old female who was recently admitted with significant history of stiff person syndrome have any acute exacerbation being closely monitored with neurology following. Patient showing no improvements evaluated by pain management and is being started on high-dose steroids. Patient received IV steroid showing some improvement as well as pain management. Patient evaluated by physical therapy and at baseline. Patient will be going home. Patient does have a wheelchair, walker, and canes as needed. Patient instructed to follow-up and reestablish with another neurologist outpatient as her primary neurologist has been out of practice for 1 year. Patient does follow with the Botox specialist that she has been seeing as well as pain management outpatient. Patient has been cleared by consultations. Please refer to neurology consultation notes for further HPI. Currently no reports of chest pain, shortness of breath, or palpitations. Patient is afebrile. No reports of nausea or vomiting and patient is tolerating diet. Patient will be discharged home today. Guarded prognosis with high risk for readmissions. Physical exam: Gen: This is a 42 year old female who is awake, alert and oriented x3, well developed, well nourished, ill appearing HEENT: Head is atraumatic, normocephalic. Pupils equal, round. Sclerae is anicteric. NECK: Supple. No JVD. No lymphadenopathy. No thyromegaly. LUNGS: Clear to auscultation. No wheezes or rhonchi. No intercostal retractions. HEART: Regular rate and rhythm. No murmur. ABDOMEN: Soft. Bowel sounds are present. No masses. No tenderness. EXTREMITIES: No pedal edema. No calf tenderness. NEUROLOGICAL: Patient is awake, alert and oriented x3. Cranial nerves 2 through 12 are grossly intact. Please refer to medication reconciliation sheet for a list of medications. The impression and plan of care has been dictated by Alexandrea Schultz, Nurse Practitioner as directed. Dr. Maribel MD I have performed a history and examination and MDM of this patient, discussed the same with the dictator, and agree with the dictator's assessment and plan as written ,documented as a scribe. Based on total visit time, I have performed more than 50% of the visit. Patient Condition at Discharge: Stable Plan - Discharge Summary Discharge Rx Participant: No New Discharge Prescriptions: New Docusate [Colace] 100 mg PO BID #60 cap Baclofen [Lioresal] 10 mg PO BID #60 tab Continue Omalizumab [Xolair] 300 mg SQ Q30D PARoxetine [Paxil] 20 mg PO HS Loratadine [Claritin] 10 mg PO DAILY Botox Neck Injection 400 mg SQ Q70D EPINEPHrine (Auto Inject) [Epipen] 0.3 mg IM ONCE PRN PRN Reason: Anaphylaxis Montelukast [Singulair] 10 mg PO HS diazePAM [Valium] 5 mg PO Q12H PRN PRN Reason: anxiety/spasms Naloxone HCl [Narcan] 4 mg NASAL DIRECTED PRN PRN Reason: Opioid Reversal Albuterol Nebulized [Ventolin Nebulized] 2.5 mg INHALATION RT-QID PRN PRN Reason: Shortness Of Breath Albuterol Sulfate [Ventolin HFA] 2 puff INHALATION RT-Q6H PRN PRN Reason: Shortness Of Breath Panzyga 10% Infusion 1 dose IV Q28D traZODone HCL [Desyrel] 100 mg PO HS Levothyroxine Sodium [Synthroid] 150 mcg PO DAILY Cholecalciferol (Vitamin D3) [Vitamin D3 (50 Mcg = 2000 Iu)] 50 mcg PO DAILY oxyCODONE-APAP 10-325MG [Percocet 10-325 mg] 1 tab PO TID PRN 30 Days #90 tab PRN Reason: Pain Solu-Medrol 125mg/2ml 125 mg IV Q28D Meloxicam [Mobic] 7.5 mg PO DAILY Discontinued Cyclobenzaprine [Flexeril] 5 mg PO QID PRN 30 Days #120 tab PRN Reason: Muscle Spasm Discharge Medication List Omalizumab [Xolair] 300 mg SQ Q30D 07/10/18 [History] PARoxetine [Paxil] 20 mg PO HS 12/18/19 [History] Loratadine [Claritin] 10 mg PO DAILY 06/13/20 [History] Botox Neck Injection 400 mg SQ Q70D 08/30/20 [History] Albuterol Sulfate [Ventolin HFA] 2 puff INHALATION RT-Q6H PRN 09/30/20 [History] EPINEPHrine (Auto Inject) [Epipen] 0.3 mg IM ONCE PRN 03/01/22 [History] Panzyga 10% Infusion 1 dose IV Q28D 03/01/22 [History] Montelukast [Singulair] 10 mg PO HS 12/19/22 [History] traZODone HCL [Desyrel] 100 mg PO HS 12/19/22 [History] Levothyroxine Sodium [Synthroid] 150 mcg PO DAILY 04/08/23 [History] diazePAM [Valium] 5 mg PO Q12H PRN 04/08/23 [History] Cholecalciferol (Vitamin D3) [Vitamin D3 (50 Mcg = 2000 Iu)] 50 mcg PO DAILY 07/23/23 [History] Naloxone HCl [Narcan] 4 mg NASAL DIRECTED PRN 07/23/23 [History] oxyCODONE-APAP 10-325MG [Percocet 10-325 mg] 1 tab PO TID PRN 30 Days #90 tab 08/14/23 [Rx] Albuterol Nebulized [Ventolin Nebulized] 2.5 mg INHALATION RT-QID PRN 09/11/23 [History] Meloxicam [Mobic] 7.5 mg PO DAILY 09/11/23 [History] Solu-Medrol 125mg/2ml 125 mg IV Q28D 09/11/23 [History] Baclofen [Lioresal] 10 mg PO BID #60 tab 09/17/23 [Rx] Docusate [Colace] 100 mg PO BID #60 cap 09/17/23 [Rx] Follow up Appointment(s)/Referral(s): Slade Gonzalez MD [Primary Care Provider] - 09/23/23 8:40 am Activity/Diet/Wound Care/Special Instructions: follow up with neuro follow up with pain management continue taking medications as prescribed Discharge Disposition: HOME SELF-CARE
== END 2023-09-17 14:57 | disposition home or self-care (01) | DRG 92 ==
LOC: EC 13:46 → 6NMEDSUR 16:14 → OBSVTOIN 16:15 → 6NMEDSUR 16:31 → 4SSUR 09-12 04:22 → 5NMEDONC 09-12 10:04
PROVIDERS: ADMIT Internal Medicine; ATTEND Internal Medicine
DX: G25.82 Stiff-man syndrome (principal); E87.1 Hypo-osmolality and hyponatremia; M87.852 Other osteonecrosis, left femur; J45.909 Unspecified asthma, uncomplicated; R56.9 Unspecified convulsions; E03.9 Hypothyroidism, unspecified; G24.9 Dystonia, unspecified; Z86.16 Personal history of COVID-19; Z79.890 Hormone replacement therapy; D64.9 Anemia, unspecified; M89.752 Major osseous defect, left pelvic region and thigh; M50.30 Other cervical disc degeneration, unspecified cervical region; Z79.1 Long term (current) use of non-steroidal anti-inflammatories (NSAID); Z74.01 Bed confinement status; Z79.52 Long term (current) use of systemic steroids; Z86.59 Personal history of other mental and behavioral disorders; Z85.41 Personal history of malignant neoplasm of cervix uteri; Z87.01 Personal history of pneumonia (recurrent); Z86.61 Personal history of infections of the central nervous system; Z87.11 Personal history of peptic ulcer disease; Z87.442 Personal history of urinary calculi; Z80.0 Family history of malignant neoplasm of digestive organs; Z96.642 Presence of left artificial hip joint; Z79.899 Other long term (current) drug therapy; Z98.84 Bariatric surgery status
CPT/HCPCS: 36415; 70450; 71045; 80048; 80053; 81003; 82550; 83036; 83605; 85025; 85379; 85652; 86140; 87636; 96372; 96374; 96375; 96376; 99285

== ENCOUNTER → 2023-10-16 | Outpatient (CLI) | payer MEDICARE ==
[2023-10-16 08:46] VITALS: BP 138/72; PULSE 102; RESP 15; TEMP 98.2
--- NOTE | 2023-10-16 13:04 | P.PAINPG ---
PQRS Measure Charge Sheet Comment: A 42 yr old female presents today w severe and chronic neck, chest and BLE pain secondary to worsening stiff person syndrome for medication refills. Pt feels baclofen is not working. Will stop Valium use so she can try other treatment options. Pt states pain and stiffness level is at 6 /10 in intensity and accompanied w muscle spasms in the neck arms, chest and legs, constant, tight, sharp in character without radiating pain. Pt states had multiple episodes of severe spasms at home , missing doses of medications, changes in room temperature, etch. Pain is provoked by any movement. Pain is alleviated by medications, heat, ice, laying supine, monthly IgG infusions from her established neurologist, laying on her side and rest. Medications include Percocet 10/325mg #90, Flexeril, Mobic REVIEW OF ORGAN SYSTEMS: CONSTITUTIONAL: No fevers or chills. No recent weight loss. NEUROLOGICAL: + numbness and tingling along the distal extremities. No seizure disorders or headaches. MUSCULOSKELETAL: + pain PSYCHIATRIC: Denies current depression or suicidal thoughts. Physical Examinations : Constitutional : Cooperative , not in acute distress . Neurologic : Cranial nerve II to XII intact. No focal neurological deficits. Psychiatric : alert & oriented x 3. Matching mood & appropriate affect. Judgment & insight intact. Musculoskeletal : Cervical Spine +LUE contracture 2/5 muscle strength Motor strength in the deltoid and biceps: Normal right side. Normal Left side Motor strength biceps and the wrist extensors: Normal right side . Normal left side Motor strength in the triceps muscle: Normal right side. Normal left side Deep tendon reflexes: Normal at the biceps. Normal at Brachioradialis. Normal at triceps Vertebral body tenderness to deep palpation over Cervical facet loading test: positive bilaterally Spurling test: positive bilaterally Neck distraction test: positive bilaterally Valencia sign: positive bilaterally Lumbar spine Motor strength lower extremities ,thigh and legs 5/5 Right side , 5/5 Left side Deep tendon reflexes : Normal Knee Jerk. Normal Ankle Jerk Vertebral body tenderness over Lumbar facet Loading Test: positive Right / positive Left Range of motion of the lumbar spine Flexion 30 degrees, extension 10 degrees Straight Leg Raise test: Left/ Right positive at degree Mary test: positive right / positive left. Severe tenderness over the Sacroiliac joint on the Right / Left sides Gaenslen test: positive bilaterally Seated flexion test: positive bilaterally. 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 Use, side effects, adverse reactions and safe storage discussed. Narcotic/ opiate agreement signed 01/02/23. UDS collected 10/16/23. MAPS reviewed. All questions answered. - Pain Location Bilateral Medial Back Non-Pharmacological Interventions: Heat, Ice, Inactivity, Position/Reposition Pharmacological Interventions: Scheduled Medication PQRS Narrative: Smoking Status Never smoker Narcotic Agreement Date Signed 02/05/22 Hx Alcohol Use (MH) No Home Medications: Ambulatory Orders Omalizumab [Xolair] 300 mg SQ Q30D 07/10/18 PARoxetine [Paxil] 20 mg PO HS 12/18/19 Loratadine [Claritin] 10 mg PO DAILY 06/13/20 Botox Neck Injection 400 mg SQ Q70D 08/30/20 Albuterol Sulfate [Ventolin HFA] 2 puff INHALATION RT-Q6H PRN 09/30/20 EPINEPHrine (Auto Inject) [Epipen] 0.3 mg IM ONCE PRN 03/01/22 Panzyga 10% Infusion 1 dose IV Q28D 03/01/22 Montelukast [Singulair] 10 mg PO HS 12/19/22 traZODone HCL [Desyrel] 100 mg PO HS 12/19/22 Levothyroxine Sodium [Synthroid] 150 mcg PO DAILY 04/08/23 diazePAM [Valium] 5 mg PO Q12H PRN 04/08/23 Cholecalciferol (Vitamin D3) [Vitamin D3 (50 Mcg = 2000 Iu)] 50 mcg PO DAILY 07/23/23 Naloxone HCl [Narcan] 4 mg NASAL DIRECTED PRN 07/23/23 Albuterol Nebulized [Ventolin Nebulized] 2.5 mg INHALATION RT-QID PRN 09/11/23 Solu-Medrol 125mg/2ml 125 mg IV Q28D 09/11/23 Docusate [Colace] 100 mg PO BID #60 cap 09/17/23 Baclofen [Lioresal] 10 mg PO BID 30 Days #60 tab 10/16/23 Meloxicam [Mobic] 7.5 mg PO DAILY 30 Days #30 tab 10/16/23 oxyCODONE-APAP 10-325MG [Percocet 10-325 mg] 1 tab PO Q8HR PRN 30 Days #90 tab 10/16/23 oxyCODONE-APAP 10-325MG [Percocet 10-325 mg] 1 tab PO TID PRN 30 Days #90 tab 10/16/23 Controlled Substance Measures - Controlled Substance Measures Is patient prescribed a controlled substance at discharge?: Yes When asked, does pt state using other controlled substances?: Yes If prescribed controlled substance>3 days was MAPS reviewed?: Yes
== END ==
LOC: PNWHC3 07:31
PROVIDERS: ATTEND Specialist
DX: G25.82 Stiff-man syndrome (principal); M54.2 Cervicalgia; G24.3 Spasmodic torticollis
CPT/HCPCS: 80307; 99212

== ENCOUNTER 2023-12-11 07:53 | Emergency (ER) | payer MEDICARE ==
--- NOTE | 2023-12-11 08:38 | ED ---
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 Patient states she is having another exacerbation. Patient states she thinks it is brought on by dehydration and stress both of which she thinks is going on currently. Patient states her esophagus sometimes spasm so she has been unable to eat as much is normal. Patient states she is also been under quite a bit of stress lately. Patient denies any fever or chills. Patient denies any chest pain difficulty breathing shortness of breath - Related Data Home Medications Medication Instructions Recorded Confirmed Omalizumab [Xolair] 300 mg SQ Q30D 07/10/18 12/11/23 PARoxetine [Paxil] 20 mg PO HS 12/18/19 12/11/23 Loratadine [Claritin] 10 mg PO DAILY 06/13/20 12/11/23 Botox Neck Injection 400 mg SQ Q70D 08/30/20 12/11/23 Albuterol Sulfate [Ventolin HFA] 2 puff INHALATION RT-Q6H PRN 09/30/20 12/11/23 EPINEPHrine (Auto Inject) [Epipen] 0.3 mg IM ONCE PRN 03/01/22 12/11/23 Panzyga 10% Infusion 1 dose IV Q28D 03/01/22 12/11/23 Montelukast [Singulair] 10 mg PO HS 12/19/22 12/11/23 traZODone HCL [Desyrel] 100 mg PO HS 12/19/22 12/11/23 Levothyroxine Sodium [Synthroid] 150 mcg PO DAILY 04/08/23 12/11/23 Cholecalciferol (Vitamin D3) 50 mcg PO DAILY 07/23/23 12/11/23 [Vitamin D3 (50 Mcg = 2000 Iu)] Naloxone HCl [Narcan] 4 mg NASAL DIRECTED PRN 07/23/23 12/11/23 Albuterol Nebulized [Ventolin 2.5 mg INHALATION RT-QID PRN 09/11/23 12/11/23 Nebulized] Solu-Medrol 125mg/2ml 125 mg IV Q28D 09/11/23 12/11/23 Previous Rx's Medication Instructions Recorded Docusate [Colace] 100 mg PO BID #60 cap 09/17/23 Baclofen [Lioresal] 10 mg PO BID 30 Days #60 tab 12/11/23 Meloxicam [Mobic] 7.5 mg PO DAILY 30 Days #30 tab 12/11/23 diazePAM [Valium] 5 mg PO Q12H PRN 30 Days #20 tab 12/11/23 oxyCODONE-APAP 10-325MG [Percocet 1 tab PO Q8HR PRN 30 Days #90 tab 12/11/23 10-325 mg] predniSONE [Deltasone] 60 mg PO DAILY 5 Days tab 12/11/23 Allergies Allergy/AdvReac Type Severity Reaction Status Date / Time No Known Allergies Allergy Verified 12/11/23 10:30 Review of Systems ROS Statement: Those systems with pertinent positive or pertinent negative responses have been documented in the HPI. ROS Other: All systems not noted in ROS Statement are negative. Past Medical History Past Medical History: Asthma, Pneumonia Additional Past Medical History / Comment(s): TACHYCARDIA, peptic ulcers, anemia."HAS BEEN ON VENTILATOR IN PAST D/T SEVERE ASTHMA ATTACK," BULEMIA-STATES GETTING BETTER, CONSTIPATION. HERNIATED DISC, cervical cancer. 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 recent antibiotoc for infection in arm-now resolved per pt, COVID 12/30/20. 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 Surgery on her cervix for cancer, rt foot surgery(Fx), cysto/lithotripsy , left hip replacement 12/2018, lumbar puncture, cervical biopsy in August @, bone tumor removal Past Anesthesia/Blood Transfusion Reactions: Postoperative Nausea & Vomiting (PONV) Past Psychological History: Anxiety, Depression Smoking Status: Never smoker Past Alcohol Use History: None Reported Past Drug Use History: None Reported - Past Family History Mother Family Medical History: Pneumonia Additional Family Medical History / Comment(s): Mother of pneumonia. Patient's son of brain cancer, last mother and father both liver cancer Son(s) Family Medical History: Cancer Additional Family Medical History / Comment(s): Son of brain cancer. Father Family Medical History: Cancer Additional Family Medical History / Comment(s): Liver Cancer. General Exam - General Exam Comments Initial Comments: GENERAL: Patient is well-developed and well-nourished. Patient is nontoxic and well- hydrated and is in moderate distress. ENT: Neck is soft and supple. No significant lymphadenopathy is noted. Oropharynx is clear. Moist mucous membranes. Neck has full range of motion without eliciting any pain. EYES: The sclera were anicteric and conjunctiva were pink and moist. Extraocular movements were intact and pupils were equal round and reactive to light. Eyelids were unremarkable. PULMONARY: Unlabored respirations. Good breath sounds bilaterally. No audible rales rhonchi or wheezing was noted. CARDIOVASCULAR: There is a regular rate and rhythm without any murmurs gallops or rubs. ABDOMEN: Soft and nontender with normal bowel sounds. SKIN: Skin is clear with no lesions or rashes and otherwise unremarkable. NEUROLOGIC: Patient is alert and oriented x3. Cranial nerves II through XII are grossly intact. MUSCULOSKELETAL: All 4 extremities appear to be spasming. Patient is unable to fight against. LYMPHATICS: No significant lymphadenopathy is noted PSYCHIATRIC: Normal psychiatric evaluation. Limitations: no limitations Course Vital Signs 12/11/23 12/11/23 07:54 10:41 Temperature 97.6 F Pulse Rate 112 H 91 Respiratory 24 22 Rate Blood Pressure 132/72 139/97 O2 Sat by Pulse 98 97 Oximetry Medical Decision Making - Medical Decision Making Was pt. sent in by a medical professional or institution (, PA, HYDRATE CONTROL TENDER, urgent care, hospital, or detention...) When possible be specific @ -No Did you speak to anyone other than the patient for history (EMS, parent, family, police, friend...)? What history was obtained from this source @ -No Did you review nursing and triage notes (agree or disagree)? Why? @ -I reviewed and agree with nursing and triage notes Were old charts reviewed (outside hosp., previous admission, EMS record, old EKG, old radiological studies, urgent care reports/EKG's, detention records)? Report findings @ -No old charts were reviewed Differential Diagnosis? @ -Chest pain, altered mental status, abdominal pain women, abdominal pain men, vaginal bleeding, weakness, fever, dyspnea, syncope, headache, dizziness, GI bleed, back pain, seizure, CVA, palpatations, mental health, musculoskeletal EKG interpreted by me (3pts min.). @ -As above X-rays interpreted by me (1pt min.). @ -None done CT interpreted by me (1pt min.). @ -None done U/S interpreted by me (1pt. min.). @ -None done What testing was considered but not performed or refused? (CT, X-rays, U/S, labs)? Why? @ -None What meds were considered but not given or refused? Why? @ -None Did you discuss the management of the patient with other professionals (professionals i.e. , PA, HYDRATE CONTROL TENDER, lab, RT, psych nurse, licensed clinical social worker, apprenticeship consultant, teacher, supervisor dog license officer, caser in)? Give summary @ -I spoke with Dr. Harmeet Mcbride and he agreed that the patient needed steroids a nd he recommended 500 mg Was smoking cessation discussed for >3mins.? @ -No Was critical care preformed (if so, how long)? @ -No Were there social determinants of health that impacted care today? How? (Homelessness, low income, unemployed, alcoholism, drug addiction, transportation, low edu. Level, literacy, decrease access to med. care, usp, rehab)? @ -No Was there de-escalation of care discussed even if they declined (Discuss DNR or withdrawal of care, Hospice)? DNR status @ -No What co-morbidities impacted this encounter? (DM, HTN, Smoking, COPD, CAD, Cancer, CVA, ARF, Chemo, Hep., AIDS, mental health diagnosis, sleep apnea, morbid obesity)? @ -None Was patient admitted / discharged? Hospital course, mention meds given and route, prescriptions, significant lab abnormalities, going to OR and other pertinent info. @ -Patient was given 2 L of fluid Valium 5 mg x 2.5 of Dilaudid and 500 mg of Solu-Medrol. Undiagnosed new problem with uncertain prognosis? @ -No Drug Therapy requiring intensive monitoring for toxicity (Heparin, Nitro, Insulin, Cardizem)? @ -No Were any procedures done? @ -No Diagnosis/symptom? @ -Stiff person syndrome Acute, or Chronic, or Acute on Chronic? @ -Acute Uncomplicated (without systemic symptoms) or Complicated (systemic symptoms)? @ -Complicated Side effects of treatment? @ -No Exacerbation, Progression, or Severe Exacerbation? @ -No Poses a threat to life or bodily function? How? (Chest pain, USA, [place], pneumonia, PE, COPD, DKA, ARF, appy, cholecystitis, CVA, Diverticulitis, Homicidal, Suicidal, threat to staff... and all critical care pts) @ -No - Lab Data Result diagrams: 12/11/23 08:46 12/11/23 08:46 Lab Results 12/11/23 12/11/23 Range/Units 08:46 08:46 WBC 4.5 (3.8-10.6) k/uL RBC 4.06 (3.80-5.40) m/uL Hgb 13.3 (11.4-16.0) gm/dL Hct 38.8 (34.0-46.0) % MCV 95.6 (80.0-100.0) fL MCH 32.8 (25.0-35.0) pg MCHC 34.4 (31.0-37.0) g/dL RDW 12.3 (11.5-15.5) % Plt Count 263 (150-450) k/uL MPV 7.8 Neutrophils % 68 % Lymphocytes % 22 % Monocytes % 6 % Eosinophils % 2 % Basophils % 1 % Neutrophils # 3.1 (1.3-7.7) k/uL Lymphocytes # 1.0 (1.0-4.8) k/uL Monocytes # 0.3 (0-1.0) k/uL Eosinophils # 0.1 (0-0.7) k/uL Basophils # 0.0 (0-0.2) k/uL Sodium 140 (137-145) mmol/L Potassium 4.5 (3.5-5.1) mmol/L Chloride 108 H (98-107) mmol/L Carbon Dioxide 24 (22-30) mmol/L Anion Gap 8 mmol/L BUN 12 (7-17) mg/dL Creatinine 1.01 (0.52-1.04) mg/dL Est GFR (CKD-EPI)AfAm 79 (>60 ml/min/1.73 sqM) Est GFR (CKD-EPI)NonAf 69 (>60 ml/min/1.73 sqM) Glucose 100 H (74-99) mg/dL Calcium 9.4 (8.4-10.2) mg/dL Magnesium 1.8 (1.6-2.3) mg/dL Total Bilirubin 0.6 (0.2-1.3) mg/dL AST 26 (14-36) U/L ALT 10 (4-34) U/L Alkaline Phosphatase 54 (38-126) U/L Total Protein 8.1 (6.3-8.2) g/dL Albumin 4.3 (3.5-5.0) g/dL Disposition 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
[2023-12-11] MEDS: SODIUM CHLORIDE 0.9% 2,000 ML IV ONE (08:55)
[2023-12-11] MEDS: HYDROmorphone 0.5 MG/0.5 ML SYRINGE IVP STA (08:58)
[2023-12-11] MEDS: methylPREDNISolone SOD SUCCI 125 MG/2 ML VIAL IV STA (09:04)
[2023-12-11 09:18] LABS: Basophils % (A) 1 %; Eosinophils # (A) 0.1 k/uL (0-0.7); Eosinophils % (A) 2 %; HCT 38.8 % (34.0-46.0); HGB 13.3 gm/dL (11.4-16.0); Lymphocytes % (A) 22 %; MCH 32.8 pg (25.0-35.0); MCHC 34.4 g/dL (31.0-37.0); MCV 95.6 fL (80.0-100.0); Mean Platelet Volume 7.8; Monocytes # (A) 0.3 k/uL (0-1.0); Monocytes % (A) 6 %; Neutrophils # (A) 3.1 k/uL (1.3-7.7); Neutrophils % (A) 68 %; Platelet Count 263 k/uL (150-450); RBC 4.06 m/uL (3.80-5.40); RDW 12.3 % (11.5-15.5); WBC 4.5 k/uL (3.8-10.6)
[2023-12-11 09:26] LABS: ALT 10 U/L (4-34); AST 26 U/L (14-36); African American GFR (CKD) 79 (>60 ml/min/1.73 sqM); Albumin 4.3 g/dL (3.5-5.0); Alkaline Phosphatase 54 U/L (38-126); Anion Gap 8 mmol/L; Blood Urea Nitrogen 12 mg/dL (7-17); Calcium 9.4 mg/dL (8.4-10.2); Carbon Dioxide 24 mmol/L (22-30); Chloride 108 mmol/L (98-107); Glucose 100 mg/dL (74-99); Magnesium 1.8 mg/dL (1.6-2.3); Non-African American GFR(CKD) 69 (>60 ml/min/1.73 sqM); Potassium 4.5 mmol/L (3.5-5.1); Sodium 140 mmol/L (137-145); Total Bilirubin 0.6 mg/dL (0.2-1.3); Total Protein 8.1 g/dL (6.3-8.2)
[2023-12-11] MEDS: methylPREDNISolone SOD SUCCIN 500 MG in SODIUM CHLORIDE 0.9% 100 ML IVPB STA (09:48)
[2023-12-11 11:40] VITALS: BP 98/58; PULSE 87; RESP 18; TEMP 97.9
== END 2023-12-11 11:48 | disposition home or self-care (01) ==
LOC: EC 07:53
DX: G25.82 Stiff-man syndrome (principal)
CPT/HCPCS: 36415; 80053; 83735; 85025; 99283; 96365; 96375 ×2; 96376; 96361 ×2; J3360; J1170; J2919

== ENCOUNTER → 2023-12-11 | Outpatient (CLI) | payer MEDICARE ==
[2023-12-11 08:11] VITALS: PULSE 100; RESP 16
--- NOTE | 2023-12-11 14:01 | P.PAINPG ---
PQRS Measure Charge Sheet Comment: A 43 yr old female presents today w severe and chronic neck, chest and BLE pain secondary to worsening stiff person syndrome for medication refills. Pt is currently having a stiffness attack which makes it impossible to extend UE for vitals check. Will stop Valium use so she can try other treatment options. Pt states pain and stiffness level is at 6 /10 in intensity and accompanied w muscle spasms in the neck arms, chest and legs, constant, tight, sharp in character without radiating pain. Pt states had multiple episodes of severe spasms at home , missing doses of medications, changes in room temperature, etch. Pain is provoked by any movement. Pain is alleviated by medications, heat, ice, laying supine, monthly IgG infusions from her established neurologist, laying on her side and rest. Medications include Percocet 10/325mg #90, Flexeril, Mobic REVIEW OF ORGAN SYSTEMS: CONSTITUTIONAL: No fevers or chills. No recent weight loss. NEUROLOGICAL: + numbness and tingling along the distal extremities. No seizure disorders or headaches. MUSCULOSKELETAL: + pain PSYCHIATRIC: Denies current depression or suicidal thoughts. Physical Examinations : Constitutional : Cooperative , not in acute distress . Neurologic : Cranial nerve II to XII intact. No focal neurological deficits. Psychiatric : alert & oriented x 3. Matching mood & appropriate affect. Judgment & insight intact. Musculoskeletal : Cervical Spine +LUE contracture 2/5 muscle strength Motor strength in the deltoid and bicep s: Normal right side. Normal Left side Motor strength biceps and the wrist extensors: Normal right side . Normal left side Motor strength in the triceps muscle: Normal right side. Normal left side Deep tendon reflexes: Normal at the biceps. Normal at Brachioradialis. Normal at triceps Vertebral body tenderness to deep palpation over Cervical facet loading test: positive bilaterally Spurling test: positive bilaterally Neck distraction test: positive bilaterally Valencia sign: positive bilaterally Lumbar spine Motor strength lower extremities ,thigh and legs 5/5 Right side , 5/5 Left side Deep tendon reflexes : Normal Knee Jerk. Normal Ankle Jerk Vertebral body tenderness over Lumbar facet Loading Test: positive Right / positive Left Range of motion of the lumbar spine Flexion 30 degrees, extension 10 degrees Straight Leg Raise test: Left/ Right positive at degree Mary test: positive right / positive left. Severe tenderness over the Sacroiliac joint on the Right / Left sides Gaenslen test: positive bilaterally Seated flexion test: positive bilaterally. Sacral spine : Severe tenderness over the Sacroiliac joint: right side / left side Range of motion: Flexion of the lumbar spine <60 degrees Range of motion: Extension of the lumbar spine <20 degrees Gaenslen's Test positive Jose's Test positive Mary test: positive right side / left side Thigh Thrust Test Sacral Thrust Test Assessment/ Plan : Intractable pain secondary to Stiff Man Syndrome, Severe neck pain secondary to cervical dystonia Medication refills Percocet 10/325mg #90, Flexeril 10mg #120, Valium 5mg #20 and Mobic 7.5mg #60 w 1 RF. Use, side effects, adverse reactions and safe storage discussed. Narcotic/ opiate agreement signed 01/02/23. UDS from 10/16/23 reviewed and consistent. MAPS reviewed. All questions answered. PQRS Narrative: Smoking Status Never smoker Narcotic Agreement Date Signed 02/05/22 Hx Alcohol Use (MH) No Home Medications: Ambulatory Orders Omalizumab [Xolair] 300 mg SQ Q30D 07/10/18 PARoxetine [Paxil] 20 mg PO HS 12/18/19 Loratadine [Claritin] 10 mg PO DAILY 06/13/20 Botox Neck Injection 400 mg SQ Q70D 08/30/20 Albuterol Sulfate [Ventolin HFA] 2 puff INHALATION RT-Q6H PRN 09/30/20 EPINEPHrine (Auto Inject) [Epipen] 0.3 mg IM ONCE PRN 03/01/22 Panzyga 10% Infusion 1 dose IV Q28D 03/01/22 Montelukast [Singulair] 10 mg PO HS 12/19/22 traZODone HCL [Desyrel] 100 mg PO HS 12/19/22 Levothyroxine Sodium [Synthroid] 150 mcg PO DAILY 04/08/23 diazePAM [Valium] 5 mg PO Q12H PRN 04/08/23 Cholecalciferol (Vitamin D3) [Vitamin D3 (50 Mcg = 2000 Iu)] 50 mcg PO DAILY 07/23/23 Naloxone HCl [Narcan] 4 mg NASAL DIRECTED PRN 07/23/23 Albuterol Nebulized [Ventolin Nebulized] 2.5 mg INHALATION RT-QID PRN 09/11/23 Solu-Medrol 125mg/2ml 125 mg IV Q28D 09/11/23 Docusate [Colace] 100 mg PO BID #60 cap 09/17/23 Baclofen [Lioresal] 10 mg PO BID 30 Days #60 tab 10/16/23 Meloxicam [Mobic] 7.5 mg PO DAILY 30 Days #30 tab 10/16/23 oxyCODONE-APAP 10-325MG [Percocet 10-325 mg] 1 tab PO Q8HR PRN 30 Days #90 tab 10/16/23 oxyCODONE-APAP 10-325MG [Percocet 10-325 mg] 1 tab PO TID PRN 30 Days #90 tab 10/16/23 Controlled Substance Measures - Controlled Substance Measures Is patient prescribed a controlled substance at discharge?: Yes When asked, does pt state using other controlled substances?: Yes If prescribed controlled substance>3 days was MAPS reviewed?: Yes
== END ==
LOC: PNWHC3 07:23
PROVIDERS: ATTEND Specialist
DX: G25.82 Stiff-man syndrome (principal)
CPT/HCPCS: 99211